=== PATIENT | female | born 1960 | race Caucasian/White ===

== ENCOUNTER 2019-06-02 11:17 | Outpatient (CLI) | payer BC, SELFPAY ==
--- NOTE | 2019-06-02 11:55 | ECG_ITS ---
Measurements Intervals [place] Rate: 67 P: 21 IA: 165 QRS: 33 QRSD: 79 T: 54 QT: 391 QTc: 414 Interpretive Statements SINUS RHYTHM BASELINE ARTIFACT- I, III, AVL NORMAL ECG Electronically Signed On 06-02-2019 12:39:34 VIOLIN TEACHER by Chilo Troy D.O.
== END 2019-06-02 11:18 | disposition home or self-care (01) ==
PROVIDERS: PCP Internal Medicine; Visit Provider Internal Medicine
DX: I10 Essential (primary) hypertension (principal)
CPT/HCPCS: 93005

== ENCOUNTER 2019-06-06 09:47 | Outpatient (CLI) | payer BC, SELFPAY ==
--- NOTE | 2019-06-06 10:15 | ECHO_ITS ---
Patient Info Name: Yesika Denney Age: 58 years : 1960 Gender: Female Ht: 73 in Wt: 135 lbs BSA: 1.76 m2 HR: 73 bpm BP: 124 / 83 mmHg Heart Rhythm: Sinus Rhythm Technical Quality: Good Exam Date: 06/06/2019 10:56 AM Exam Location: [facility] Patient Status: Outpatient Admit Date: 06/06/2019 Staff Ordering Physician: Martin Vazquez MD Nailhead Operator: Laquita Zhang RDCS Attending Provider: Martin Vazquez MD Referring Physician: PHYSICIAN NOT ON STAFF, NONSTAFF ; Exam Type: CA echo doppler color flow Study Info Indications - tachycardia Complete two-dimensional, color flow and Doppler transthoracic echocardiogram is performed. Summary 1. Left ventricular chamber dimension is normal. 2. Left ventricular systolic function is normal, estimated at 55-60%. 3. The left ventricular diastolic function is grade I diastolic dysfunction. 4. E/e' 8 is minimally elevated. 5. There is trace mitral valve regurgitation. 6. There is mild tricuspid valve regurgitation. 7. No pulmonary hypertension, estimated pulmonary arterial systolic pressure is 26 mmHg. 8. There is mild pulmonic regurgitation. Left Ventricle E/e' 8 is minimally elevated. Left ventricular chamber dimension is normal. Left ventricular systolic function is normal, estimated at 55-60%. The left ventricular diastolic function is grade I diastolic dysfunction. Right Ventricle Right ventricular chamber dimension is normal. Right ventricular systolic function is normal. Left Atria Left atrial chamber dimension is normal. Right Atria Right atrial chamber dimension is normal. Aortic Valve The aortic valve is trileaflet. There is no aortic valve stenosis. There is no aortic valve regurgitation. Pulmonic Valve There is mild pulmonic regurgitation. Mitral Valve There is no mitral valve stenosis. There is trace mitral valve regurgitation. Tricuspid Valve There is mild tricuspid valve regurgitation. No pulmonary hypertension, estimated pulmonary arterial systolic pressure is 26 mmHg. Pericardium/Pleural There is no pericardial effusion. Inferior Vena Cava Normal inferior vena cava with >50% collapse upon inspiration consistent with normal right atrial pressure, 5 mmHg. Aorta The aortic root size at the sinus of Valsalva is normal. Left Ventricular Outflow Tract Name Value Normal LVOT 2D LVOT Diameter 2.0 cm LVOT Doppler LVOT Peak Gradient 4 mmHg LVOT Mean Gradient 3 mmHg LVOT VTI 21 cm LVOT VTI/AV VTI Ratio 0.8 LVOT Stroke Volume 63 ml LVOT CO 14.7 l/min LVOT CI 8.4 l/min/m2 Pulmonic Valve Name Value Normal PV Doppler PV Peak Gradie
[2019-06-06 12:18] LABS: Basophils Percent Auto 0.5 % (0.2-1.2); Eosinophils Absolute Auto 0.1 K/mm3 (0-0.3); Eosinophils Percent Auto 1.1 % (0-4.4); Hematocrit 39.9 % (37.0-47.0); Hemoglobin 13.1 g/dL (12.0-15.0); Immature Granulocyte Absolute 0.01 K/mm3 (0.00-0.031); Immature Granulocyte Percent A 0.2 % (0-0.5); Lymphocytes Absolute Auto 1.61 K/mm3 (0.9-3.2); Lymphocytes Percent Auto 36.3 % (18.3-44.2); Mean Corpuscular HGB Conc 32.8 g/dl (32-36); Mean Corpuscular Hemoglobin 33.5 pg (26-34); Mean Platelet Volume 10.4 fl (7.4-10.4); Monocytes Absolute Auto 0.5 K/mm3 (0.1-0.6); Monocytes Percent Auto 11.7 % (2.6-8.5); Neutrophils Absolute Auto 2.2 K/mm3 (1.3-6.7); Neutrophils Percent Auto 50.2 % (45.5-73.1); Platelet Count Result 218 k/mm3 (150-375); Red Blood Count 3.91 M/mm3 (4.2-5.4); Red Cell Distribution Width 13.3 % (11.5-14.5); White Blood Count 4.4 K/mm3 (4.5-10.0)
[2019-06-06 12:35] LABS: Alanine Aminotransferase 35 U/L (4-35); Albumin Level 4.6 g/dL (3.5-5.1); Alkaline Phosphatase 51 U/L (38-126); Aspartate Amino Transferase 32 U/L (14-36); Bilirubin,Total 0.3 mg/dL (0.2-1.3); Blood Urea Nitrogen 16 mg/dL (7-17); Calcium 9.4 mg/dL (8.4-10.2); Carbon Dioxide 32 mmol/L (22-30); Chloride 98 mmol/L (98-107); Estimated Glomerular Filt Rate > 60; Glucose 89 mg/dL (65-105); Magnesium 2.1 mg/dL (1.6-2.3); Potassium 4.1 mmol/L (3.4-5.0); Sodium 138 mmol/L (137-145)
--- NOTE | 2019-06-09 12:46 | WPDHOLTEREM ---
Holter/Event Monitor Holter/Event Monitor Date of procedure: 06/06/19 Procedure Type: 48 hour holter monitor Indications: Tachycardia Conclusion: 1. 48 hour holter monitor on 06/06/19. 2. Predominant rhythm is sinus rhythm. HR range 52-150 bpm; average HR 81 bpm. 3. There are 14 premature supraventricular complexes and 1 supraventricular couplet. One episode of atrial tachycardia at 106 bpm at 04:04 lasting 2 minutes. 4. No premature ventricular complex. No ventricular tachycardia. 5. No sinoatrial or atrioventricular blocks. No significant pauses greater than 2 seconds. 6. Patient reports symptoms of fluttering, heart racing and increased heart rate, and skipped beats which demonstrate sinus rhythm, HR range 69-120 bpm and the episode of atrial tachycardia described above.
== END 2019-06-06 09:48 | disposition home or self-care (01) ==
PROVIDERS: PCP Internal Medicine; Visit Provider Internal Medicine
DX: R00.0 Tachycardia, unspecified (principal); I37.1 Nonrheumatic pulmonary valve insufficiency; I36.1 Nonrheumatic tricuspid (valve) insufficiency; I10 Essential (primary) hypertension; Z79.899 Other long term (current) drug therapy
CPT/HCPCS: 36415; 80053; 83735; 85025; 93225; 93226; 93306

== ENCOUNTER 2020-03-03 01:11 | Outpatient (CLI) | payer BC, SELFPAY ==
[2020-03-03 19:09] LABS: SARS-CoV-2 RNA PCR Negative
== END 2020-03-03 01:12 | disposition home or self-care (01) ==
LOC: ANHCOVIDDT 01:11
PROVIDERS: PCP Physician Assistant; Visit Provider Internal Medicine Gastroenterology
DX: Z20.828 Contact with and (suspected) exposure to other viral communicable diseases (principal)
CPT/HCPCS: 87635; C9803; U0003

== ENCOUNTER 2020-03-06 01:07 | Day surgery (SDC) | payer BC, SELFPAY ==
[2020-02-28 12:53] VITALS: BMI 23.4
[2020-03-06 09:09] VITALS: BP 117/74; PULSE 96; RESP 20; TEMP 36.6; O2SAT 97; BMI 23.3
[2020-03-06] MEDS: LACTATED RINGERS 1,000 ML 150 ML IV CONT (09:24)
--- NOTE | 2020-03-06 09:53 | WPDANESEPPF ---
Anes - Initial Pre Proc Eval Procedure: Operation Date: 03/06/20 10:15 Proposed Procedures p Screening Colonoscopy - Rasheed Aguilar MD Date/Time: 03/06/20 09:53 Surgeon: Rasheed Aguilar MD Pre Op Diagnosis: neoplasm screening Patient Data Age: 59 Gender: F Height: 5 ft 3 in Weight: 59.7 kg Last Vital Signs Temp 98 F 03/06/20 09:09 Pulse 96 03/06/20 09:09 Resp 20 03/06/20 09:09 BP 117/74 03/06/20 09:09 Pulse Ox 97 03/06/20 09:09 Allergies Allergy/AdvReac Type Severity Reaction Status Date / Time adhesive Allergy Unknown WELTS Verified 03/06/20 09:07 anastrozole AdvReac Severe unspecified Verified 03/06/20 09:07 cyclizine AdvReac Unknown HALLUCINATIONS, Verified 03/06/20 09:07 URINARY RETENTION TEGADERM AdvReac Unknown REDNESS/IRR Uncoded 03/06/20 09:07 ITATION Home Medications Medication Instructions Recorded Confirmed Type ioriffzicd-hweynnznjhtzd-ldtsexqr 1 cap PO Q4-6H PRN 04/04/19 02/28/20 History 50 mg-300 mg-40 mg capsule folic acid 1 mg tablet 1 mg PO DAILY 04/04/19 03/06/20 History hydroxychloroquine 200 mg tablet 200 mg PO DAILY 04/04/19 03/06/20 History sulfasalazine 500 mg tablet 0.5 gm PO BID tablet 04/04/19 03/06/20 History aspirin 81 mg tablet,delayed 81 mg PO 2XW tablet 04/05/19 02/28/20 History release atenolol 50 mg tablet 50 mg PO DAILY #90 tablet 09/06/19 03/06/20 Rx valacyclovir 500 mg tablet See Rx Instructions .ROUTE 11/22/19 03/06/20 Rx .COMPLEX #90 tablet lisinopril 40 mg tablet See Rx Instructions .ROUTE 01/05/20 03/06/20 Rx .COMPLEX #90 tablet sodium,potassium,mag sulfates 17.5 See Rx Instructions PO .COMPLEX 02/03/20 Rx gram-3.13 gram-1.6 gram oral soln #354 ml fluoxetine [Prozac] 30 mg PO DAILY 02/28/20 03/06/20 History methotrexate sodium 2.5 mg PO WEEKLY 02/28/20 02/28/20 History Patient hx anesthesia problems: none Family hx anesthesia problems: none PMFSH Past Medical History Medical History (Updated 03/06/20 @ 09:53 by Joseph Colón MD) Breast cancer history of breast cancer 2015 Essential hypertension Migraine Rectal bleeding Rheumatoid arthritis Family History Family History Mother Family history of osteoporosis Family history of migraine headaches Hypertension Family history of atrial fibrillation Father Depression Family history of arthritis Family history of Alzheimer's disease Family history of hearing loss Social History Social History Smoking status: Never smoker Second hand tobacco smoke exposure: No Alcohol intake: never Substance use: never Substance use type: does not use Living arrangements: with family Spiritual care concerns: No Anes - Eval Final PreProcedure Day of Procedure 03/06/20 09:53 Patient weight: normal Heart: regular rate and rhythm Lungs: clear to auscultation Airway: Mallampati scale class II Neurological: alert and oriented Last oral intake: >/= 8 hours ASA classification: III Emergent: no Anesthetic plan: proceed Anesthesia type and monitoring: general GIVS and standard monitoring Informed Consent: The patient's anesthetic plan and its attendant risks and benefits were discussed with the patient/family/POA. Questions were solicited and answers provided to the satisfaction of the patient/family/POA.
--- NOTE | 2020-03-06 10:24 | PM.HPGS ---
History of Present Illness History of Present Illness Consent: Risks, benefits, and alternatives have been discussed and questions answered. Patient agrees to proceed with procedure. Chief complaint: neoplasm screening Narrative: Yesika Denney is a 59 year old female with intermittent diarrhea, last colonoscopy 10 years ago. Review of Systems Constitutional: Constitutional: Denies headache(s) and Denies weakness Eyes: Eyes: Denies blurry vision ENT: Reports Normal hearing present, Denies headache(s) and Denies neck pain Cardiovascular: Cardiovascular: Denies chest pain and Denies dyspnea Respiratory: Respiratory: Denies dyspnea Gastrointestinal: Gastrointestinal: Reports no additional gastrointestinal complaints Genitourinary: Genitourinary: Denies dysuria Musculoskeletal: Musculoskeletal: Denies neck pain Integumentary/Breasts: Skin/Breast: Denies dry skin Neurologic: Reports Normal hearing present, Denies headache(s) and Denies weakness Psychiatric: Psychiatric: Denies anxiety Endocrine: Endocrine: Denies change in body appearance Hematologic/Lymphatic: Hematologic/Lymphatic: Denies easy bleeding Allergic/Immunologic: Allergic/Immunologic: Denies urticaria PMFSH Past Medical History Medical History (Updated 03/06/20 @ 10:24 by Rasheed Aguilar MD) Breast cancer history of breast cancer 2015 Colon cancer screening Essential hypertension Migraine Rectal bleeding Rheumatoid arthritis Family History Family History Mother Family history of osteoporosis Family history of migraine headaches Hypertension Family history of atrial fibrillation Father Depression Family history of arthritis Family history of Alzheimer's disease Family history of hearing loss Social History Social History Smoking status: Never smoker Second hand tobacco smoke exposure: No Alcohol intake: never Substance use: never Substance use type: does not use Living arrangements: with family Spiritual care concerns: No Meds Home Medications and Allergies Home Medications Medication Instructions Recorded Confirmed Type bdlwjtxblq-anmwfkofnwbah-syyfvopv 1 cap PO Q4-6H PRN 04/04/19 02/28/20 History 50 mg-300 mg-40 mg capsule folic acid 1 mg tablet 1 mg PO DAILY 04/04/19 03/06/20 History hydroxychloroquine 200 mg tablet 200 mg PO DAILY 04/04/19 03/06/20 History sulfasalazine 500 mg tablet 0.5 gm PO BID tablet 04/04/19 03/06/20 History aspirin 81 mg tablet,delayed 81 mg PO 2XW tablet 04/05/19 02/28/20 History release atenolol 50 mg tablet 50 mg PO DAILY #90 tablet 09/06/19 03/06/20 Rx valacyclovir 500 mg tablet See Rx Instructions .ROUTE 11/22/19 03/06/20 Rx .COMPLEX #90 tablet lisinopril 40 mg tablet See Rx Instructions .ROUTE 01/05/20 03/06/20 Rx .COMPLEX #90 tablet sodium,potassium,mag sulfates 17.5 See Rx Instructions PO .COMPLEX 02/03/20 Rx gram-3.13 gram-1.6 gram oral soln #354 ml fluoxetine [Prozac] 30 mg PO DAILY 02/28/20 03/06/20 History methotrexate sodium 2.5 mg PO WEEKLY 02/28/20 02/28/20 History Allergies Allergy/AdvReac Type Severity Reaction Status Date / Time adhesive Allergy Unknown WELTS Verified 03/06/20 09:07 anastrozole AdvReac Severe unspecified Verified 03/06/20 09:07 cyclizine AdvReac Unknown HALLUCINATIONS, Verified 03/06/20 09:07 URINARY RETENTION TEGADERM AdvReac Unknown REDNESS/IRR Uncoded 03/06/20 09:07 ITATION Vital Signs Vital Signs - 24 hr 03/06/20 09:09 Temperature 98 F Pulse Rate 96 Respiratory Rate 20 Blood Pressure 117/74 Pulse Oximetry 97 Exam Const: General: comfortable and no acute distress HENMT: General nose exam: Normal nares present Eyes: General: appearance normal, both eyes and all related structures Neck: Neck: no JVD Resp: Auscultation: clear to auscultation b
[2020-03-06 10:44] VITALS: BP 93/61; PULSE 74; RESP 18; O2SAT 96
[2020-03-06 10:54] VITALS: BP 96/62; PULSE 73; RESP 16; O2SAT 100
[2020-03-06 11:04] VITALS: BP 111/76; PULSE 61; RESP 16; O2SAT 100
== END 2020-03-06 11:08 | disposition home or self-care (01) ==
PROVIDERS: PCP Physician Assistant; Visit Provider Internal Medicine Gastroenterology
PROC: 0DJD8ZZ Inspection of Lower Intestinal Tract, Via Natural or Artificial Opening Endoscopic (ICD-10-PCS; CPT 45378; principal; 2020-03-06 10:15)
DX: Z12.11 Encounter for screening for malignant neoplasm of colon (principal); R19.7 Diarrhea, unspecified; K57.30 Diverticulosis of large intestine without perforation or abscess without bleeding; K64.0 First degree hemorrhoids; K64.4 Residual hemorrhoidal skin tags; I10 Essential (primary) hypertension; M06.9 Rheumatoid arthritis, unspecified; Z85.3 Personal history of malignant neoplasm of breast
CPT/HCPCS: 45380; 88305; J2704; J7120

== ENCOUNTER 2020-05-17 11:37 | Inpatient (IN) | payer BC, SELFPAY ==
[2020-05-17] VITALS (14 sets, daily range): BP systolic 96–113; BP diastolic 57–73; PULSE 72–106; RESP 15–26; TEMP 35.8–36.6; O2SAT 93–100; BMI 23.1
--- NOTE | ~2020-05-17 | XR_ITS ---
EXAMINATION: XR chest 1V portable DATE: 05/23/2020 08:56 INDICATION: COVID-19 pneumonia. TECHNIQUE: A single frontal view of the chest was obtained. COMPARISON: Chest single view 05/17/20 FINDINGS: There are patchy airspace opacities in all lung zones bilaterally, right worse than left. N o pleural effusion or pneumothorax. The heart size is normal. IMPRESSION: 1. Worsened diffuse lung disease, consistent with COVID-19 pneumonia. Reviewed, dictated and finalized at location A. NESS TRAINER
--- NOTE | ~2020-05-17 | XR_ITS ---
XR chest 1V portable DATE: 05/17/2020 13:08 INDICATION: Shortness of breath, fever, fatigue. Covid 19 positive. TECHNIQUE: Portable upright AP chest on March 16, 2021 at 1304 hours COMPARISON: 02/15/2016 PA and lateral chest FINDINGS: Normal heart size. Aortic arch calcification. No hilar or mediastinal enlargement. No pulmo nary vascular congestion or pleural effusion. There is patchy infiltrate in the right mid and lower lung zones. Remaining lung guerrero are clear. IMPRESSION: Patchy right mid and lower lung field infiltrate, suggesting pneumonia Reviewed, dictated and finalized at location A. R VEHICLES SUPERVISOR IMPRESSION: Patchy right mid and lower lung field infiltrate, suggesting pneumo shila
--- NOTE | 2020-05-17 11:40 | ECG_ITS ---
Measurements Intervals [place] Rate: 73 P: 58 ME: 152 QRS: 32 QRSD: 74 T: 54 QT: 381 QTc: 421 Interpretive Statements SINUS RHYTHM BASELINE WANDER- II, III NORMAL ECG Electronically Signed On 05-17-2020 12:51:43 NEWSPAPER DELIVERY DRIVER by Chilo Troy D.O.
[2020-05-17 12:08] LABS: Basophils Percent Auto 0.3 % (0.2-1.2); Hematocrit 36.2 % (37.0-47.0); Hemoglobin 12.2 g/dL (12.0-15.0); Immature Granulocyte Absolute 0.04 K/mm3 (0.00-0.031); Immature Granulocyte Percent A 0.6 % (0-0.5); Lymphocytes Percent Auto 10.3 % (18.3-44.2); Mean Corpuscular HGB Conc 33.7 g/dl (32-36); Mean Corpuscular Hemoglobin 32.7 pg (26-34); Mean Corpuscular Volume 97.1 fl (80-100); Mean Platelet Volume 9.6 fl (7.4-10.4); Monocytes Absolute Auto 0.8 K/mm3 (0.1-0.6); Monocytes Percent Auto 11.5 % (2.6-8.5); Neutrophils Absolute Auto 5.3 K/mm3 (1.3-6.7); Neutrophils Percent Auto 77.3 % (45.5-73.1); Platelet Count Result 234 k/mm3 (150-375); Red Blood Count 3.73 M/mm3 (4.2-5.4); Red Cell Distribution Width 13.2 % (11.5-14.5); White Blood Count 6.8 K/mm3 (4.5-10.0)
[2020-05-17 12:20] LABS: Anion Gap 10 mmol/L (8-16); Blood Urea Nitrogen 13 mg/dL (7-17); Calcium 8.7 mg/dL (8.4-10.2); Carbon Dioxide 24 mmol/L (22-30); Chloride 101 mmol/L (98-107); Estimated CRCL calculation 71 ml/min; Estimated Glomerular Filt Rate > 60; Glucose 119 mg/dL (65-105); Potassium 4.1 mmol/L (3.4-5.0); Sodium 135 mmol/L (137-145)
--- NOTE | 2020-05-17 13:34 | ED.SOB ---
HPI - SOB/Dyspnea General Chief Complaint: Shortness of Breath/Dyspnea Stated Complaint: COVID+, SOB Time Seen by Provider: 05/17/20 13:04 Source: patient Mode of arrival: ambulatory Limitations: no limitations History of Present Illness HPI Narrative: A 59-year-old female comes into the emergency department with complaints of shortness of breath, fever and cough. Patient states that this has been continued since she has been diagnosed with Covid. Patient has had a diagnosis of Covid for almost 2 weeks now but states that her fevers are persistent. Patient states that she has been taking Tylenol and ibuprofen and but still has fevers. She notes that she has had no production with her cough. Related Data Home Medications Medication Instructions Recorded Confirmed ftyqlzrnmk-ihrlihpjowvua-jcbwgjjc 1 cap PO Q4-6H PRN 04/04/19 02/28/20 50 mg-300 mg-40 mg capsule folic acid 1 mg tablet 1 mg PO DAILY 04/04/19 03/06/20 hydroxychloroquine 200 mg tablet 200 mg PO DAILY 04/04/19 03/06/20 sulfasalazine 500 mg tablet 0.5 gm PO BID tablet 04/04/19 03/06/20 aspirin 81 mg tablet,delayed 81 mg PO 2XW tablet 04/05/19 02/28/20 release fluoxetine [Prozac] 30 mg PO DAILY 02/28/20 03/06/20 methotrexate sodium 2.5 mg PO WEEKLY 02/28/20 02/28/20 Allergies Allergy/AdvReac Type Severity Reaction Status Date / Time adhesive Allergy Unknown WELTS Verified 05/17/20 11:38 anastrozole AdvReac Severe unspecified Verified 05/17/20 11:38 cyclizine AdvReac Unknown HALLUCINATIONS, Verified 05/17/20 11:38 URINARY RETENTION TEGADERM AdvReac Unknown REDNESS/IRR Uncoded 03/06/20 09:07 ITATION Review of Systems Review of Systems: Narrative: CONSTITUTIONAL: Denies fever, chills, or sweats. EYES: Denies visual changes, redness, or discharge. ENT: Denies rhinorrhea, congestion, sore throat, or otalgia. CARDIOVASCULAR: Denies chest pain, palpitations, or edema. RESPIRATORY: Endorses dyspnea with exertion and cough. GASTROINTESTINAL: Denies abdominal pain, nausea, vomiting, or diarrhea. GENITOURINARY: Denies dysuria or hematuria. SKIN: Denies rash or itching. MUSCULOSKELETAL: Denies back pain, joint pain, or myalgia. NEUROLOGIC: Denies headache, numbness, dizziness, or weakness. PSYCHIATRIC: Denies anxiety or depression. [facility] Past Medical History Medical History Breast cancer history of breast cancer 2015 Colon cancer screening Essential hypertension Migraine Rectal bleeding Rheumatoid arthritis Family History Family History Mother Family history of osteoporosis Family history of migraine headaches Hypertension Family history of atrial fibrillation Father Depression Family history of arthritis Family history of Alzheimer's disease Family history of hearing loss Social History Social History Smoking status: Never smoker Second hand tobacco smoke exposure: No Alcohol intake: never Substance use: never Substance use type: does not use Spiritual care concerns: No Exam Narrative: Exam Narrative: GENERAL: Well-appearing, well-nourished, and in no acute distress. HEAD: Normocephalic, atraumatic. EYES: PERRLA and EOMI. ENT: Nares clear, no rhinorrhea or epistaxis. Mucous membranes moist. Oropharynx without tonsillar hypertrophy exudate or other lesions. Bilateral TMs pearly koehler nonbulging NECK: Supple. No adenopathy or masses. No carotid bruits or JVD CHEST: Rhonchi noted in the right lower lobe. Mild tachypnea and increased work of breathing. HEART: Tachycardic. No murmur heard. Normal peripheral pulses. ABDOMEN: Soft, nontender, nondistended, normal active bowel sounds. EXTREMITIES: Normal range of motion. No edema. SKIN: Warm, dry, no rash. NEURO: No focal deficits. Alert and oriented x3. PSYCH: Normal mood and affect. Course Reevaluation
[2020-05-17] MEDS: DEXAMETHASONE SOD PHOS INJ 4 MG/ML VIAL 6 MG IV PUSH (14:03)
[2020-05-17] MEDS: IPRATROPIUM BR 0.02% INH SOLN 0.5 MG/2.5 ML VIAL 1 MG INHALATION (14:10)
[2020-05-17] MEDS: ALBUTEROL SULFATE NEB 2.5 MG/0.5 ML INH 10 MG INHALATION (14:10)
--- NOTE | 2020-05-17 16:35 | PC.NURSE ---
This patient, Yesika Deneny, was admitted to 3 [facility] Surg Room 324-01. Patient/family oriented to hospital policies and general routines including ID bracelet, bed and alarms, visiting hours, pain management, procedures, bathroom and other care routines, personal items, smoking policy, room service/diet, and visiting hours. Information on how to activate the Rapid Response Team has been discussed. Patient/Family are encouraged to report perceived risks to care and to ask questions if they do not understand what they are told or what they should do.
--- NOTE | 2020-05-17 17:00 | PM.IMHP ---
H&P: HPI History of Present Illness Date/Time: 05/17/20 17:00 Chief Complaint: Shortness of breath and hypoxia. Narrative: This is a pleasant 59-year-old female with hypertension and rheumatoid arthritis on immunosuppressants who presented to the emergency department earlier today via private vehicle from home for evaluation of shortness of breath and hypoxia. She has not felt well for nearly 2 weeks and in fact tested positive for COVID-19 on 05/07/2020, with multiple symptoms to include fever up to 102.8?, dry cough, sinus congestion, body aches, loose stools, and overwhelming fatigue. She has been in close contact with her ballistics expert forensic, Dr. Martinez in [place], who advised her to hold methotrexate while febrile however she is to continue her sulfasalazine and hydroxychloroquine. In any event, she has a pulse ox at home and has been monitoring her SpO2 and has noted that she has become progressively more short of breath and hypoxic over the past 24 hours, down to 86% on room air. Chest x-ray done today demonstrates pneumonia and she is being admitted in this setting. She has not had a fever today and she denies anosmia, dysgeusia, nausea, and vomiting. No chest pain, pleuritic pain, palpitations, or racing heart. She also denies lower extremity edema, calf pain and tenderness, and history of venous thromboembolism. Review of Systems Review of Systems: Narrative: Twelve systems were reviewed with pertinent positives and negatives as per HPI. 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 Except as documented, all other systems were reviewed and are negative. [facility] Past Medical History Medical History (Updated 05/17/20 @ 20:59 by Cynthia Gongora PA-C) Anterior communicating artery aneurysm Being monitored closely. Cancer of right breast (~2014) Status post lumpectomy and chemo radiation. Essential hypertension Immunocompromised patient Patient on methotrexate, hydroxychloroquine, and sulfasalazine for rheumatoid arthritis. Migraine Paroxysmal supraventricular tachycardia Rheumatoid arthritis Surgical History Surgical History (Updated 05/17/20 @ 20:56 by Cynthia Gongora PA-C) History of breast biopsy History of lumpectomy of right breast (~2014) As treatment of breast cancer. History of nasal septoplasty History of partial thyroidectomy History of tonsillectomy and adenoidectomy History of tubal ligation Family History Family History Mother Family history of osteoporosis Family history of migraine headaches Hypertension Family history of atrial fibrillation Father Depression Family history of arthritis Family history of Alzheimer's disease Family history of hearing loss Social History Social History (Updated 05/17/20 @ 20:57 by Cynthia Gongora PA-C) Social History: Surrogate decision maker: Christiano Denney, . Code status: Full code. Smoking status: Never smoker Second hand tobacco smoke exposure: No Alcohol intake: never Substance use: never Substance use type: does not use Additional living arrangements comments: Resides in [place] with her and son. Gender identity (if verbalized by the patient): Female Spiritual care concerns: No Meds Home Medications and Allergies Home Medications Medication Instructions Recorded Confirmed Type yzleffnmwr-fclxodmftjjcw-jlymhlcc 1 cap PO Q4-6H PRN 04/04/19 05/17/20 History 50 mg-300 mg-40 mg capsule folic acid 1 mg tablet 2 mg PO DAILY 04/04/19 05/17/20 History hydroxychloroquine 200 mg tablet 200 mg PO DAILY 04/04/19 05/17/20 History sulfasalazine 500 mg tablet 500 mg PO BID tablet 04/04/19 05/17/20 History aspirin 81 mg tablet,delayed 81 mg PO 2XW tablet 04/05/19 05/17/20 History release atenolol 50 mg tablet 50 mg PO DAILY #90 tablet 09/06/19 05/17/20 Rx fluoxetine [Pro
[2020-05-17 19:05] LABS: Troponin I < 0.012 ng/mL (0.000-0.034)
[2020-05-17 21:50] LABS: Troponin I < 0.012 ng/mL (0.000-0.034)
[2020-05-17 22:29] LABS: Procalcitonin 0.1 ng/mL
[2020-05-18] VITALS (13 sets, daily range): BP systolic 111–126; BP diastolic 75–80; PULSE 82–110; RESP 16–18; TEMP 36.6–38.7; O2SAT 92–94
[2020-05-18] MEDS: ACETAMINOPHEN 325 MG TABLET 650 MG PO ×4 (01:46→19:50)
[2020-05-18 06:10] LABS: Hematocrit 33.3 % (37.0-47.0); Hemoglobin 11.2 g/dL (12.0-15.0); Mean Corpuscular HGB Conc 33.6 g/dl (32-36); Mean Corpuscular Hemoglobin 33.3 pg (26-34); Mean Corpuscular Volume 99.1 fl (80-100); Mean Platelet Volume 9.3 fl (7.4-10.4); Platelet Count Result 242 k/mm3 (150-375); Red Blood Count 3.36 M/mm3 (4.2-5.4); Red Cell Distribution Width 13.3 % (11.5-14.5)
[2020-05-18 06:27] LABS: Alanine Aminotransferase 37 U/L (4-35); Albumin Level 3.6 g/dL (3.5-5.1); Alkaline Phosphatase 57 U/L (38-126); Anion Gap 6 mmol/L (8-16); Aspartate Amino Transferase 48 U/L (14-36); Bilirubin,Total 0.2 mg/dL (0.2-1.3); Blood Urea Nitrogen 12 mg/dL (7-17); CRP 7.5 mg/dL (<1.0); Calcium 8.7 mg/dL (8.4-10.2); Carbon Dioxide 27 mmol/L (22-30); Chloride 102 mmol/L (98-107); Estimated CRCL calculation 84 ml/min; Estimated Glomerular Filt Rate > 60; Glucose 132 mg/dL (65-105); Lactate Dehydrogenase 910 U/L (313-618); Magnesium 1.9 mg/dL (1.6-2.3); Potassium 4.4 mmol/L (3.4-5.0); Sodium 135 mmol/L (137-145)
[2020-05-18 06:59] LABS: Hypochromasia 1+ (NORMAL); Lymphocytes Absolute Manual 0.81 K/mm3 (1.1-4.5); Monocytes Absolute Manual 0.72 K/mm3 (0.1-0.90); Monocytes Percent Manual 8 % (3-9); Neutrophils Percent Manual 83 % (46-73); Ovalocytes 1+ (NORMAL); Platelet Estimate Adequate (Adequate); Smudge Cells PRESENT; Total Cells Counted 100
[2020-05-18] MEDS: guaiFENesin 12 HR 600 MG TABCR PO ×2 (10:58→19:50)
[2020-05-18] MEDS: valACYclovir HCL 500 MG TABLET PO (12:02)
[2020-05-18] MEDS: ENOXAPARIN 40 MG/0.4 ML SYRINGE SUB-Q (12:02)
[2020-05-18] MEDS: sulfaSALAzine 500 MG TABLET PO ×2 (12:02→17:57)
[2020-05-18] MEDS: ASPIRIN 81 MG ENTERIC TABLET PO (12:03)
[2020-05-18] MEDS: FOLIC ACID 1 MG TABLET 2 MG PO (12:03)
[2020-05-18] MEDS: HYDROXYCHLOROQUINE SULFATE 200 MG TABLET PO (12:03)
[2020-05-18] MEDS: FLUoxetine HCL 20 MG CAPSULE PO (12:03)
[2020-05-18] MEDS: atenoloL 50 MG TABLET PO (12:04)
--- NOTE | 2020-05-18 14:42 | PC.NURSE ---
Spoke with infection control nurse about isolating patient for Covid. Ann Rn stated patient is on day 10 of symptoms and nolonger needed to be isolated per CDC guidelines. Patient has had fevers off and on since 0100 today. Isolation not initiated.
--- NOTE | 2020-05-18 15:01 | ECG_ITS ---
Measurements Intervals [place] Rate: 88 P: 49 MT: 166 QRS: 19 QRSD: 68 T: 42 QT: 345 QTc: 418 Interpretive Statements SINUS RHYTHM BASELINE ARTIFACT- AVR, AVL,A VF NORMAL ECG Electronically Signed On 05-18-2020 15:42:35 MONOLOGIST by Chilo Troy D.O.
[2020-05-18] MEDS: DEXAMETHASONE SOD PHOS INJ 4 MG/ML VIAL 6 MG IV PUSH (15:30)
[2020-05-18 16:04] LABS: Alanine Aminotransferase 36 U/L (4-35); Estimated CRCL calculation 71 ml/min; Estimated Glomerular Filt Rate > 60
[2020-05-18] MEDS: REMDESIVIR 200 MG/NS 250 ML 200 MG/250 ML BAG 250 MG IVPB (17:56)
--- NOTE | 2020-05-18 18:40 | PM.IMPN ---
Progress Note: A&P Assessment and Plan (1) Right lower lobe pneumonia: Qualifiers: Pneumonia type: due to unspecified organism Qualified Code(s): J18.9 - Pneumonia, unspecified organism Code(s): J18.9 - Pneumonia, unspecified organism Status: Acute Assessment and Plan: Started empirically on Rocephin and Azithromycin (2) COVID-19: Code(s): U07.1 - COVID-19 Status: Acute Assessment and Plan: Positive for Covid 19 Remdesivir/Dexamethasone/Convalescent plasma (3) Essential hypertension: Code(s): I10 - Essential (primary) hypertension Status: Acute Assessment and Plan: Stable continue to monitor Continue home meds. (4) Rheumatoid arthritis: Code(s): M06.9 - Rheumatoid arthritis, unspecified Status: Acute Assessment and Plan: On Plaquenil, Sulfa/ and methotrexate Stable (5) Pneumonia: Code(s): J18.9 - Pneumonia, unspecified organism Status: Acute Assessment and Plan: On Rocephin/Zithromax/Remdesivir/Dexamethasone/Convalescent plasma. Subjective Date/time seen: 05/18/20 18:40 Review of Systems Review of Systems: Narrative: Patient presented to ED after she tested positive for Covid 19 was having persistent cough and fevers. Constitutional: Comments: fevers, chills, muscle pain. ENT: Comments: nasal congestion. Cardiovascular: Comments: no chest pain, no sob, no leg swelling. Respiratory: Comments: dry cough persistent. Gastrointestinal: Comments: no n/v/abdominal pain. Musculoskeletal: Comments: no joint enlargement. Integumentary/Breasts: Comments: no rashes. Neurologic: Comments: no sensory motor deficit. Exam Narrative: Exam Narrative: Lying in bed Const: General: comfortable, no acute distress, alert, awake, Physically active, ill appearing and tired appearing Nutritional Appearance: thin Orientation/consciousness: patient oriented x3 HENMT: Head: normocephalic Ears: hearing grossly normal bilaterally General nose exam: Normal external nose present Face and sinus: normal facial exam Eyes: General: appearance normal, both eyes and all related structures Pupils: Equal, round and reactive pupils present EOM: EOMs intact bilaterally Neck: Neck: no lymphadenopathy, supple and no JVD Resp: Effort & Inspection: able to speak in complete sentences Auscultation: clear to auscultation bilaterally Cardio: Jugular venous distension: no JVD Rate: regular rate Rhythm: regular rhythm GI: GI Palp: Yes Soft to palpation and Yes No hepatosplenomegaly present Skin: General skin exam: normal color Lesions: no lesions Rashes: no rashes Neuro: General: patient oriented x3 and CN's II-XI intact bilaterally Cranial nerves: Yes CN's II-XII intact bilaterally Cognition (Neuro): normal cognition Speech: normal speech Motor exam (neuro): 5/5 motor strength present throughout Extrem: General: no pedal edema Objective Data Vital Signs Vital Signs: Vital Signs - 24 hr 05/17/20 20:00 05/17/20 21:34 05/18/20 00:00 Temperature 97.9 F Pulse Rate 97 93 105 H Respiratory Rate 18 Blood Pressure 113/70 Pulse Oximetry 93 05/18/20 01:46 05/18/20 02:46 05/18/20 04:00 Temperature 100.7 F H 100.0 F H Pulse Rate 90 Respiratory Rate Blood Pressure Pulse Oximetry 05/18/20 06:00 05/18/20 08:00 05/18/20 10:57 Temperature 98.1 F 101.6 F H Pulse Rate 86 109 H Respiratory Rate 18 Blood Pressure 111/75 Pulse Oximetry 93 05/18/20 11:57 05/18/20 12:00 05/18/20 12:04 Temperature 100.1 F H Pulse Rate 110 H 109 H Respiratory Rate Blood Pressure Pulse Oximetry 05/18/20 14:00 05/18/20 16:00 Temperature 97.8 F Pulse Rate 92 87 Respiratory Rate 16 Blood Pressure 126/80 Pulse Oximetry 92 Intake/Output Intake/Output: Intake & Output 05/15/20 05/16/20 05/17/20 05/18/20 23:59 23:59 23:59 23:59 Intake Total 500 1050 Output Total 0
[2020-05-19 06:00] VITALS: BP 134/83; PULSE 91; RESP 20; TEMP 36.8; O2SAT 91
[2020-05-19 08:00] VITALS: PULSE 91; RESP 20; O2SAT 91
[2020-05-19 08:04] LABS: Alanine Aminotransferase 50 U/L (4-35); Estimated CRCL calculation 71 ml/min; Estimated Glomerular Filt Rate > 60
[2020-05-19] MEDS: REMDESIVIR 100 MG/NS 250 ML 100 MG/250 ML BAG 250 MG IVPB (10:45)
[2020-05-19] MEDS: atenoloL 50 MG TABLET PO (11:24)
[2020-05-19] MEDS: HYDROXYCHLOROQUINE SULFATE 200 MG TABLET PO (11:24)
[2020-05-19] MEDS: ENOXAPARIN 40 MG/0.4 ML SYRINGE SUB-Q (11:25)
[2020-05-19] MEDS: DEXAMETHASONE SOD PHOS INJ 4 MG/ML VIAL 6 MG IV PUSH (11:25)
[2020-05-19] MEDS: FOLIC ACID 1 MG TABLET 2 MG PO (11:25)
[2020-05-19] MEDS: FLUoxetine HCL 20 MG CAPSULE PO (11:25)
[2020-05-19] MEDS: sulfaSALAzine 500 MG TABLET PO ×2 (11:25→17:45)
[2020-05-19] MEDS: valACYclovir HCL 500 MG TABLET PO (11:25)
[2020-05-19] MEDS: guaiFENesin 12 HR 600 MG TABCR PO ×2 (11:25→20:27)
[2020-05-19 12:57] VITALS: O2SAT 92
[2020-05-19 14:00] VITALS: BP 128/79; PULSE 91; RESP 18; TEMP 36.6; O2SAT 95
--- NOTE | 2020-05-19 16:29 | PM.IMPN ---
Progress Note: A&P Assessment and Plan (1) Right lower lobe pneumonia: Qualifiers: Pneumonia type: due to unspecified organism Qualified Code(s): J18.9 - Pneumonia, unspecified organism Code(s): J18.9 - Pneumonia, unspecified organism Status: Acute Assessment and Plan: Rocephin/Zithromax/ Remdesivir/Dexamethasone Continue to monitor (2) Pneumonia: Code(s): J18.9 - Pneumonia, unspecified organism Status: Acute Assessment and Plan: Will continue Rocepehin and Zithromax (3) COVID-19: Code(s): U07.1 - COVID-19 Status: Acute Assessment and Plan: Supportive care Remdesivir/Dexamethasone/Convalescent plasma (4) Essential hypertension: Code(s): I10 - Essential (primary) hypertension Status: Acute Assessment and Plan: Continue to monitor Continue home meds (5) Rheumatoid arthritis: Code(s): M06.9 - Rheumatoid arthritis, unspecified Status: Acute Assessment and Plan: On DMARDS In remission Follow up in the outpatient setting. Subjective Date/time seen: 05/19/20 16:29 Patient states that she feels better but has a headache. Review of Systems Review of Systems: Narrative: No new issues overnight. Constitutional: Comments: no fevers. ENT: Comments: no nasal congestion, no throat pain. Cardiovascular: Comments: no chest pain, no leg swelling. Respiratory: Comments: dry cough Gastrointestinal: Comments: no n/v/abdominal pain. Musculoskeletal: Comments: no muscle pain. Integumentary/Breasts: Comments: no rashes. Neurologic: Comments: no sensory motor deficit Exam Narrative: Exam Narrative: Lying in bed. Const: General: comfortable, no acute distress, alert, awake, Physically active and tired appearing Nutritional Appearance: thin HENMT: Head: normocephalic Ears: hearing grossly normal bilaterally General nose exam: Normal external nose present Face and sinus: normal facial exam Eyes: General: appearance normal, both eyes and all related structures Pupils: Equal, round and reactive pupils present EOM: EOMs intact bilaterally Neck: Neck: no lymphadenopathy, supple and no JVD Resp: Auscultation: clear to auscultation bilaterally Cardio: Jugular venous distension: no JVD Rate: regular rate Rhythm: regular rhythm GI: GI Palp: Yes Soft to palpation and Yes No hepatosplenomegaly present Skin: Rashes: no rashes Neuro: General: patient oriented x3 and CN's II-XI intact bilaterally Cranial nerves: Yes CN's II-XII intact bilaterally and Yes Equal, round and reactive pupils present Gait exam (Neuro): Normal gait present Motor exam (neuro): 5/5 motor strength present throughout Extrem: General: no pedal edema Objective Data Vital Signs Vital Signs: Vital Signs - 24 hr 05/18/20 22:00 05/19/20 06:00 05/19/20 08:00 Temperature 98.1 F 98.3 F Pulse Rate 82 91 91 Respiratory Rate 16 20 20 Blood Pressure 114/75 134/83 Pulse Oximetry 94 91 91 05/19/20 12:57 05/19/20 14:00 Temperature 97.9 F Pulse Rate 91 Respiratory Rate 18 Blood Pressure 128/79 Pulse Oximetry 92 95 Intake/Output Intake/Output: Intake & Output 05/16/20 05/17/20 05/18/20 05/19/20 23:59 23:59 23:59 23:59 Intake Total 500 1540 820 Output Total 0 Balance 500 1540 820 Meds/Results Medications: Active Medications Generic Name Dose Route Start Last Admin Trade Name Freq PRN Reason Stop Dose Admin Acetaminophen 650 mg 05/18/20 00:20 05/18/20 19:50 Acetaminophen 325 Mg Tablet PO 650 mg Q4H PRN Administration Mild Pain (1-3) or Fever Albuterol 2 puff 05/17/20 21:03 Albuterol Sulfate (*Sp) Aerosol 1 Puff INHALATION QIDRT PRN Shortness Of Breath Aspirin 81 mg 05/18/20 09:00 05/18/20 12:03 Aspirin 81 Mg Enteric Tablet PO 81 mg TuFr@0900 JOSEPH Administration Atenolol 50 mg 05/18/20 09:00 05/19/20 11:24 Atenolol 50 Mg Tablet PO 50 mg DAILY SC
[2020-05-19 20:00] VITALS: O2SAT 95
[2020-05-19 22:00] VITALS: BP 124/75; PULSE 74; RESP 16; TEMP 37.2; O2SAT 94
[2020-05-20] VITALS (10 sets, daily range): BP systolic 112–142; BP diastolic 65–86; PULSE 68–77; RESP 16–18; TEMP 36.1–37.3; O2SAT 91–95
[2020-05-20] MEDS: LOPERAMIDE HCL 2 MG CAPSULE 6 MG PO (04:34)
[2020-05-20] MEDS: ACETAMINOPHEN 325 MG TABLET 650 MG PO ×3 (04:37→20:25)
[2020-05-20 06:40] LABS: Basophils Percent Auto 0.1 % (0.2-1.2); Eosinophils Percent Auto 0.1 % (0-4.4); Hematocrit 31.7 % (37.0-47.0); Hemoglobin 10.6 g/dL (12.0-15.0); Immature Granulocyte Absolute 0.19 K/mm3 (0.00-0.031); Immature Granulocyte Percent A 2.2 % (0-0.5); Lymphocytes Absolute Auto 1.53 K/mm3 (0.9-3.2); Lymphocytes Percent Auto 17.3 % (18.3-44.2); Mean Corpuscular HGB Conc 33.4 g/dl (32-36); Mean Corpuscular Hemoglobin 32.3 pg (26-34); Mean Corpuscular Volume 96.6 fl (80-100); Mean Platelet Volume 9.4 fl (7.4-10.4); Monocytes Absolute Auto 0.8 K/mm3 (0.1-0.6); Monocytes Percent Auto 9.3 % (2.6-8.5); Neutrophils Absolute Auto 6.3 K/mm3 (1.3-6.7); Platelet Count Result 333 k/mm3 (150-375); Red Blood Count 3.28 M/mm3 (4.2-5.4); Red Cell Distribution Width 13.3 % (11.5-14.5); White Blood Count 8.8 K/mm3 (4.5-10.0)
[2020-05-20 07:05] LABS: Anion Gap 4 mmol/L (8-16); Blood Urea Nitrogen 13 mg/dL (7-17); Calcium 8.1 mg/dL (8.4-10.2); Carbon Dioxide 26 mmol/L (22-30); Chloride 106 mmol/L (98-107); Estimated CRCL calculation 71 ml/min; Estimated Glomerular Filt Rate > 60; Glucose 91 mg/dL (65-105); Potassium 3.6 mmol/L (3.4-5.0); Sodium 136 mmol/L (137-145)
[2020-05-20 07:10] LABS: Anisocytosis 1+ (NORMAL); Ovalocytes 1+ (NORMAL); Platelet Estimate Adequate (Adequate)
[2020-05-20] MEDS: atenoloL 50 MG TABLET PO (09:20)
[2020-05-20] MEDS: DEXAMETHASONE SOD PHOS INJ 4 MG/ML VIAL 6 MG IV PUSH (09:20)
[2020-05-20] MEDS: HYDROXYCHLOROQUINE SULFATE 200 MG TABLET PO (09:20)
[2020-05-20] MEDS: FLUoxetine HCL 20 MG CAPSULE PO (09:23)
[2020-05-20] MEDS: FOLIC ACID 1 MG TABLET 2 MG PO (09:23)
[2020-05-20] MEDS: guaiFENesin 12 HR 600 MG TABCR PO ×2 (09:23→20:15)
[2020-05-20] MEDS: valACYclovir HCL 500 MG TABLET PO (09:24)
[2020-05-20] MEDS: sulfaSALAzine 500 MG TABLET PO ×2 (09:24→17:49)
[2020-05-20 09:35] LABS: Alanine Aminotransferase 42 U/L (4-35); Estimated CRCL calculation 84 ml/min; Estimated Glomerular Filt Rate > 60
[2020-05-20] MEDS: ENOXAPARIN 40 MG/0.4 ML SYRINGE SUB-Q (11:39)
[2020-05-20] MEDS: REMDESIVIR 100 MG/NS 250 ML 100 MG/250 ML BAG 125 MG IVPB (11:40)
[2020-05-20] MEDS: SODIUM CHLORIDE 0.9% IV 250 ML 30 ML IV CONT (13:38)
--- NOTE | 2020-05-20 15:35 | PM.IMPN ---
Progress Note: A&P Assessment and Plan (1) Right lower lobe pneumonia: Qualifiers: Pneumonia type: due to unspecified organism Qualified Code(s): J18.9 - Pneumonia, unspecified organism Code(s): J18.9 - Pneumonia, unspecified organism Status: Acute Assessment and Plan: Remdesivir/Dexamethasone Convalescent plasma Rocephin and Zithromax for added coverage (2) COVID-19: Code(s): U07.1 - COVID-19 Status: Acute Assessment and Plan: Improved Supportive care (3) Rheumatoid arthritis: Code(s): M06.9 - Rheumatoid arthritis, unspecified Status: Acute Assessment and Plan: On remission On DMARD's (4) Essential hypertension: Code(s): I10 - Essential (primary) hypertension Status: Acute Assessment and Plan: Stable Subjective Date/time seen: 05/20/20 15:35 I feel better Review of Systems Review of Systems: Narrative: Feeling better, no new issues overnight. Constitutional: Comments: no fevers, no rigors, no chills. Cardiovascular: Comments: no chest pain, no leg swelling, no pnd, no orthopnea Respiratory: Comments: dry cough Gastrointestinal: Comments: no n/v/abdominal pain. Musculoskeletal: Comments: no joint pain Integumentary/Breasts: Comments: no rashes Neurologic: Comments: no sensory motor deficit. Exam Narrative: Exam Narrative: Lying in bed. Const: General: comfortable, no acute distress, alert, awake, Physically active and tired appearing Nutritional Appearance: average body habitus Orientation/consciousness: patient oriented x3 HENMT: Head: normocephalic Face and sinus: normal facial exam Eyes: General: appearance normal, both eyes and all related structures Pupils: Equal, round and reactive pupils present EOM: EOMs intact bilaterally Neck: Neck: no lymphadenopathy, supple and no JVD Resp: Auscultation: clear to auscultation bilaterally Cardio: Jugular venous distension: no JVD Rate: regular rate Rhythm: regular rhythm GI: Inspection: normal to inspection GI Palp: Yes Soft to palpation and Yes No hepatosplenomegaly present Skin: Rashes: no rashes Neuro: General: patient oriented x3 and CN's II-XI intact bilaterally Cranial nerves: Yes CN's II-XII intact bilaterally and Yes Equal, round and reactive pupils present Cognition (Neuro): normal cognition Speech: normal speech Motor exam (neuro): 5/5 motor strength present throughout Extrem: General: no pedal edema Objective Data Vital Signs Vital Signs: Vital Signs - 24 hr 05/19/20 20:00 05/19/20 22:00 05/20/20 06:00 Temperature 98.9 F 99.2 F Pulse Rate 74 77 Respiratory Rate 16 18 Blood Pressure 124/75 142/81 H Pulse Oximetry 95 94 91 05/20/20 08:00 05/20/20 14:00 Temperature 98.1 F Pulse Rate 77 70 Respiratory Rate 18 18 Blood Pressure 112/65 Pulse Oximetry 91 94 Intake/Output Intake/Output: Intake & Output 05/17/20 05/18/20 05/19/20 05/20/20 23:59 23:59 23:59 23:59 Intake Total 500 1540 1400 270 Output Total 0 Balance 500 1540 1400 270 Meds/Results Medications: Active Medications Generic Name Dose Route Start Last Admin Trade Name Freq PRN Reason Stop Dose Admin Acetaminophen 650 mg 05/18/20 00:20 05/20/20 04:37 Acetaminophen 325 Mg Tablet PO 650 mg Q4H PRN Administration Mild Pain (1-3) or Fever Albuterol 2 puff 05/17/20 21:03 Albuterol Sulfate (*Sp) Aerosol 1 Puff INHALATION QIDRT PRN Shortness Of Breath Aspirin 81 mg 05/18/20 09:00 05/18/20 12:03 Aspirin 81 Mg Enteric Tablet PO 81 mg TuFr@0900 JOSEPH Administration Atenolol 50 mg 05/18/20 09:00 05/20/20 09:20 Atenolol 50 Mg Tablet PO 50 mg DAILY JOSEPH Administration Butalbital/Aspirin/Caffeine 1 cap 05/17/20 21:04 Acetamin/Butalbital/Caffeine 1 Capsule PO Q4-6H PRN Migraine Headache Dexamethasone Sodium Phosphate 6 mg 05/18/20 09:00 05/20/20 09:20 Dexamethasone S
[2020-05-21 06:00] VITALS: BP 131/83; PULSE 75; RESP 18; TEMP 37; O2SAT 90
[2020-05-21 06:34] LABS: Alanine Aminotransferase 32 U/L (4-35); Estimated CRCL calculation 71 ml/min; Estimated Glomerular Filt Rate > 60
[2020-05-21] MEDS: FOLIC ACID 1 MG TABLET 2 MG PO (08:54)
[2020-05-21] MEDS: ENOXAPARIN 40 MG/0.4 ML SYRINGE SUB-Q (08:54)
[2020-05-21] MEDS: DEXAMETHASONE SOD PHOS INJ 4 MG/ML VIAL 6 MG IV PUSH (08:54)
[2020-05-21] MEDS: guaiFENesin 12 HR 600 MG TABCR PO ×2 (08:54→20:22)
[2020-05-21] MEDS: FLUoxetine HCL 20 MG CAPSULE PO (08:54)
[2020-05-21 08:55] VITALS: PULSE 75
[2020-05-21] MEDS: atenoloL 50 MG TABLET PO (08:55)
[2020-05-21] MEDS: HYDROXYCHLOROQUINE SULFATE 200 MG TABLET PO (08:56)
[2020-05-21] MEDS: sulfaSALAzine 500 MG TABLET PO ×2 (08:56→17:17)
[2020-05-21] MEDS: valACYclovir HCL 500 MG TABLET PO (08:56)
[2020-05-21] MEDS: ACETAMINOPHEN 325 MG TABLET 650 MG PO ×2 (08:57→20:22)
[2020-05-21] MEDS: REMDESIVIR 100 MG/NS 250 ML 100 MG/250 ML BAG 125 MG IVPB (10:46)
[2020-05-21] MEDS: LOPERAMIDE HCL 2 MG CAPSULE 6 MG PO ×2 (11:54→20:22)
--- NOTE | 2020-05-21 13:05 | PM.IMPN ---
Progress Note: A&P Assessment and Plan (1) Right lower lobe pneumonia: Qualifiers: Pneumonia type: due to unspecified organism Qualified Code(s): J18.9 - Pneumonia, unspecified organism Code(s): J18.9 - Pneumonia, unspecified organism Status: Acute Assessment and Plan: On Rocephin and Zithromax as patient comes from the community Remdesivir/Dexamethasone Patient is also on Plaquenil as part of her home regimen (2) COVID-19: Code(s): U07.1 - COVID-19 Status: Acute Assessment and Plan: On treatment Convalescent plasma as well plus above stated (3) Rheumatoid arthritis: Code(s): M06.9 - Rheumatoid arthritis, unspecified Status: Acute Assessment and Plan: On DMARD's Stable (4) Essential hypertension: Code(s): I10 - Essential (primary) hypertension Status: Acute Assessment and Plan: Stable Continue to monitor Subjective Date/time seen: 05/21/20 13:05 I feel much better Review of Systems Review of Systems: Narrative: No new issues. Constitutional: Comments: no fevers, no rigors, no chills. Cardiovascular: Comments: no chest pain. Respiratory: Comments: non productive cough Gastrointestinal: Comments: no n/v/abdominal pain. Musculoskeletal: Comments: no joint pain. Integumentary/Breasts: Comments: no rashes Neurologic: Comments: no sensory motor deficit. Exam Narrative: Exam Narrative: Lying in bed Const: General: comfortable, no acute distress, alert, awake, Physically active and ill appearing Nutritional Appearance: average body habitus Orientation/consciousness: patient oriented x3 Limitations: no limitations HENMT: Head: normal to inspection and normocephalic Face and sinus: normal facial exam Eyes: General: appearance normal, both eyes and all related structures Pupils: Equal, round and reactive pupils present EOM: EOMs intact bilaterally Neck: Neck: no lymphadenopathy, supple and no JVD Resp: Auscultation: clear to auscultation bilaterally and diminished lung sounds Cardio: Jugular venous distension: no JVD Rate: regular rate Rhythm: regular rhythm GI: GI Palp: Yes Soft to palpation and Yes No hepatosplenomegaly present Skin: Rashes: no rashes Neuro: General: patient oriented x3 and CN's II-XI intact bilaterally Cranial nerves: Yes CN's II-XII intact bilaterally and Yes Bilaterally intact EOM present Cognition (Neuro): normal cognition Gait exam (Neuro): Normal gait present Motor exam (neuro): 5/5 motor strength present throughout Extrem: General: no joint enlargement and no pedal edema Objective Data Vital Signs Vital Signs: Vital Signs - 24 hr 05/20/20 14:00 05/20/20 16:45 05/20/20 17:00 Temperature 98.1 F 97.0 F L 97.3 F L Pulse Rate 70 75 68 Respiratory Rate 18 16 16 Blood Pressure 112/65 122/70 124/70 Pulse Oximetry 94 93 92 05/20/20 17:50 05/20/20 18:00 05/20/20 18:54 Temperature 97.1 F L 98.1 F 98.5 F Pulse Rate 71 70 77 Respiratory Rate 16 18 18 Blood Pressure 129/77 127/86 122/74 Pulse Oximetry 95 93 92 05/20/20 20:00 05/20/20 22:00 05/21/20 06:00 Temperature 99 F 98.6 F Pulse Rate 72 75 Respiratory Rate 18 18 Blood Pressure 125/76 131/83 Pulse Oximetry 92 95 90 05/21/20 08:55 Temperature Pulse Rate 75 Respiratory Rate Blood Pressure Pulse Oximetry Intake/Output Intake/Output: Intake & Output 05/18/20 05/19/20 05/20/20 05/21/20 23:59 23:59 23:59 23:59 Intake Total 1540 1400 1656 840 Balance 1540 1400 1656 840 Meds/Results Medications: Active Medications Generic Name Dose Route Start Last Admin Trade Name Ibanq PRN Reason Stop Dose Admin Acetaminophen 650 mg 05/18/20 00:20 05/21/20 08:57 Acetaminophen 325 Mg Tablet PO 650 mg Q4H PRN Administration Mild Pain (1-3) or Fever Albuterol 2 puff 05/17/20 21:03 Albuterol Sulfate (*Sp) Aerosol 1 Puff INHALATION QIDRT PRN Shortness Of Breath
[2020-05-21 14:00] VITALS: BP 122/88; PULSE 113; RESP 20; TEMP 36.4; O2SAT 94
[2020-05-21 20:00] VITALS: O2SAT 94
[2020-05-21 22:00] VITALS: BP 124/84; PULSE 67; RESP 16; TEMP 36.7; O2SAT 96
[2020-05-22 06:00] VITALS: BP 137/83; PULSE 69; RESP 16; TEMP 36.6; O2SAT 96
[2020-05-22 07:26] LABS: Alanine Aminotransferase 28 U/L (4-35); Estimated CRCL calculation 84 ml/min; Estimated Glomerular Filt Rate > 60
[2020-05-22] MEDS: ASPIRIN 81 MG ENTERIC TABLET PO (10:15)
[2020-05-22] MEDS: HYDROXYCHLOROQUINE SULFATE 200 MG TABLET PO (10:15)
[2020-05-22] MEDS: sulfaSALAzine 500 MG TABLET PO ×2 (10:16→17:01)
[2020-05-22] MEDS: DEXAMETHASONE SOD PHOS INJ 4 MG/ML VIAL 6 MG IV PUSH (10:16)
[2020-05-22] MEDS: FLUoxetine HCL 20 MG CAPSULE PO (10:16)
[2020-05-22] MEDS: valACYclovir HCL 500 MG TABLET PO (10:16)
[2020-05-22] MEDS: ENOXAPARIN 40 MG/0.4 ML SYRINGE SUB-Q (10:16)
[2020-05-22] MEDS: FOLIC ACID 1 MG TABLET 2 MG PO (10:16)
[2020-05-22] MEDS: guaiFENesin 12 HR 600 MG TABCR PO ×2 (10:16→20:07)
[2020-05-22 10:17] VITALS: PULSE 82
[2020-05-22] MEDS: atenoloL 50 MG TABLET PO (10:17)
[2020-05-22] MEDS: REMDESIVIR 100 MG/NS 250 ML 100 MG/250 ML BAG 250 MG IVPB (10:19)
[2020-05-22] MEDS: ACETAMINOPHEN 325 MG TABLET 650 MG PO ×2 (10:22→20:12)
[2020-05-22 14:00] VITALS: BP 115/71; PULSE 67; RESP 18; TEMP 36.6; O2SAT 95
--- NOTE | 2020-05-22 16:04 | PM.IMPN ---
Progress Note: A&P Assessment and Plan (1) Right lower lobe pneumonia: Qualifiers: Pneumonia type: due to unspecified organism Qualified Code(s): J18.9 - Pneumonia, unspecified organism Code(s): J18.9 - Pneumonia, unspecified organism Status: Acute Assessment and Plan: On Rocephin and Zithromax For CAP Remdesivir/Dexamethasone Patient is also on Plaquenil for Rheumatoid arthritis (2) COVID-19: Code(s): U07.1 - COVID-19 Status: Acute Assessment and Plan: Sp treatment with plasma steroids and remdesivir much improved off oxygen now (3) Rheumatoid arthritis: Code(s): M06.9 - Rheumatoid arthritis, unspecified Status: Acute Assessment and Plan: On DMARD's Stable (4) Essential hypertension: Code(s): I10 - Essential (primary) hypertension Status: Acute Assessment and Plan: Stable Continue to monitor Subjective Date/time seen: 05/22/20 16:04 Interval history: Pt covid positive on Apr, Pt admitted for hypoxia and fever treated with remdesivir and plasma doing much better no fever not hypoxic anymore on RA, last day of remdesivir. Concerned about her family and going back home. Review of Systems Review of Systems: All systems reviewed & are unremarkable except as noted in HPI and below Exam Narrative: Exam Narrative: Lying in bed Const: General: comfortable and no acute distress Resp: Auscultation: clear to auscultation bilaterally Cardio: Jugular venous distension: no JVD Rate: regular rate Rhythm: regular rhythm GI: Inspection: normal to inspection Skin: General skin exam: normal color Lesions: no lesions Rashes: no rashes Neuro: General: patient oriented x3 and CN's II-XI intact bilaterally Cranial nerves: Yes CN's II-XII intact bilaterally, Yes Equal, round and reactive pupils present and Yes Bilaterally intact EOM present Cognition (Neuro): normal cognition Speech: normal speech Gait exam (Neuro): Normal gait present Motor exam (neuro): 5/5 motor strength present throughout Objective Data Vital Signs Vital Signs: Vital Signs - 24 hr 05/21/20 20:00 05/21/20 22:00 05/22/20 06:00 Temperature 36.7 C 36.6 C Pulse Rate 67 69 Respiratory Rate 16 16 Blood Pressure 124/84 137/83 Pulse Oximetry 94 96 96 05/22/20 10:17 05/22/20 14:00 Temperature 36.6 C Pulse Rate 82 67 Respiratory Rate 18 Blood Pressure 115/71 Pulse Oximetry 95 Intake/Output Intake/Output: Intake & Output 05/19/20 05/20/20 05/21/20 05/22/20 23:59 23:59 23:59 23:59 Intake Total 1400 1656 1930 440 Output Total 600 400 Balance 1400 1656 1330 40 Meds/Results Medications: Active Medications Generic Name Dose Route Start Last Admin Trade Name Freq PRN Reason Stop Dose Admin Acetaminophen 650 mg 05/18/20 00:20 05/22/20 10:22 Acetaminophen 325 Mg Tablet PO 650 mg Q4H PRN Administration Mild Pain (1-3) or Fever Albuterol 2 puff 05/17/20 21:03 Albuterol Sulfate (*Sp) Aerosol 1 Puff INHALATION QIDRT PRN Shortness Of Breath Aspirin 81 mg 05/18/20 09:00 05/22/20 10:15 Aspirin 81 Mg Enteric Tablet PO 81 mg TuFr@0900 JOSEPH Administration Atenolol 50 mg 05/18/20 09:00 05/22/20 10:17 Atenolol 50 Mg Tablet PO 50 mg DAILY JOSEPH Administration Butalbital/Aspirin/Caffeine 1 cap 05/17/20 21:04 Acetamin/Butalbital/Caffeine 1 Capsule PO Q4-6H PRN Migraine Headache Dexamethasone Sodium Phosphate 6 mg 05/18/20 09:00 05/22/20 10:16 Dexamethasone Sod Phos Inj 4 Mg/Ml Vial IV PUSH 05/26/20 09:01 6 mg DAILY JOSEPH Administration Enoxaparin Sodium 40 mg 05/18/20 09:00 05/22/20 10:16 Enoxaparin 40 Mg/0.4 Ml Syringe SUB-Q 40 mg DAILY JOSEPH Administration Fluoxetine HCl 20 mg 05/18/20 09:00 05/22/20 10:16 Fluoxetine Hcl 20 Mg Capsule PO 20 mg DAILY JOSEPH Administration Folic Acid 2 mg 05/18/20 09:00 05/22/20 10:16 Folic Acid
[2020-05-22] MEDS: LOPERAMIDE HCL 2 MG CAPSULE 6 MG PO (18:55)
[2020-05-22 22:00] VITALS: BP 146/78; PULSE 57; RESP 20; TEMP 37; O2SAT 95
[2020-05-23 06:00] VITALS: BP 148/86; PULSE 65; RESP 16; TEMP 37; O2SAT 95
[2020-05-23 06:41] LABS: Alanine Aminotransferase 30 U/L (4-35); Albumin Level 3.2 g/dL (3.5-5.1); Alkaline Phosphatase 46 U/L (38-126); Anion Gap 5 mmol/L (8-16); Aspartate Amino Transferase 28 U/L (14-36); Bilirubin,Total 0.3 mg/dL (0.2-1.3); Blood Urea Nitrogen 11 mg/dL (7-17); Calcium 8.4 mg/dL (8.4-10.2); Carbon Dioxide 28 mmol/L (22-30); Chloride 105 mmol/L (98-107); Estimated CRCL calculation 84 ml/min; Estimated Glomerular Filt Rate > 60; Glucose 101 mg/dL (65-105); Potassium 4.3 mmol/L (3.4-5.0); Sodium 138 mmol/L (137-145)
--- NOTE | 2020-05-23 08:40 | PM.DS ---
DS: Admitting Diagnosis Admitting Diagnosis Admitting Diagnosis: Shortness of breath and hypoxia DS: Discharge Diagnosis Discharge Diagnosis (1) Right lower lobe pneumonia: Qualifiers: Pneumonia type: due to unspecified organism Qualified Code(s): J18.9 - Pneumonia, unspecified organism Code(s): J18.9 - Pneumonia, unspecified organism Status: Acute Assessment and Plan: On Rocephin and Zithromax for community acquired pneumonia Patient is also on Plaquenil for Rheumatoid arthritis (2) COVID-19: Code(s): U07.1 - COVID-19 Status: Acute Assessment and Plan: Pt was previously on Remdesivir/Dexamethasone for COVId pneumonia and was treated with plasma while in hospital. much improved off oxygen now ready to go home, no fever, no cough or SOB. (3) Rheumatoid arthritis: Code(s): M06.9 - Rheumatoid arthritis, unspecified Status: Chronic Assessment and Plan: On DMARD's, pt will follow with her PCP. (4) Essential hypertension: Code(s): I10 - Essential (primary) hypertension Status: Chronic Assessment and Plan: Stable DS: Summary Hospital Course Hospital Course: Pt covid positive on Apr, Pt admitted for hypoxia and fever treated with remdesivir and plasma doing much better no fever not hypoxic anymore on room air. Pt is stable for dischrage. Pt was also treated for bacterial pneumonia with iv antibiotics can transition to oral antibiotics and short course of steroids on discharge. Pt is no longer in quarantine as it has been 15-16 days since she tested positive. Time Spent with Patient Time attestation: Total time spent providing and/or coordinating discharge services: 40 minutes on day of discharge Exam Narrative: Exam Narrative: Lying in bed Const: General: comfortable Resp: Auscultation: clear to auscultation bilaterally Cardio: Jugular venous distension: no JVD Rate: regular rate Rhythm: regular rhythm GI: Inspection: normal to inspection Skin: General skin exam: normal color Lesions: no lesions Rashes: no rashes Neuro: General: patient oriented x3 and CN's II-XI intact bilaterally Cranial nerves: Yes CN's II-XII intact bilaterally, Yes Equal, round and reactive pupils present and Yes Bilaterally intact EOM present Cognition (Neuro): normal cognition Speech: normal speech Gait exam (Neuro): Normal gait present Motor exam (neuro): 5/5 motor strength present throughout Extrem: General: no joint enlargement and no pedal edema DS: Data Data Completed and Pending Labs on day of discharge: Labs from last 24 hours 05/23/20 06:12 Sodium 138 Potassium 4.3 Chloride 105 Carbon Dioxide 28 Anion Gap 5 L BUN 11 Creatinine 0.50 L Estim Creat Clear Calc 84 Estimated GFR > 60 Glucose 101 Calcium 8.4 Total Bilirubin 0.3 AST 28 ALT 30 Alkaline Phosphatase 46 Total Protein 6.0 L Albumin 3.2 L Discharge Plan Discharge Attending physician on discharge: Yolanda Obrien Discharging Clinician: Yolanda Obrien Anticipated Discharge Date/Time: 05/23/20 14:00 Patient Disposition: Home, Self-Care Activity: as tolerated Diet: regular Patient Instructions: Antibiotic Form Stand Alone Forms: General Discharge Information Follow-up/Referrals: Samir,KAREN Ward [Primary Care Provider] - Discharge Medications: New albuterol sulfate [Proventil HFA] 90 mcg/actuation Hfa Aerosol Inhaler 2 puff inhalation QIDRT PRN (Reason: Shortness Of Breath) Qty: 1 RF: 0 azithromycin [Zithromax Z-Tim] 250 mg tablet 250 mg PO DAILY 5 Days Qty: 5 RF: 0 dexamethasone 6 mg tablet 6 mg PO DAILY Qty: 7 RF: 0 Continued valacyclovir 500 mg Tablet 2,000 mg PO BID PRN (Reason: Cold Sore) RF: 0 valacyclovir 500 mg tablet 500 mg PO DAILY RF: 0 lisinopril 40 mg tablet 40 mg PO DAILY RF: 0 methotrexate sodium 2.5 mg tablet 2.5 mg PO WEEKLY
[2020-05-23 08:56] VITALS: PULSE 68
[2020-05-23] MEDS: sulfaSALAzine 500 MG TABLET PO (08:56)
[2020-05-23] MEDS: atenoloL 50 MG TABLET PO (08:56)
[2020-05-23] MEDS: guaiFENesin 12 HR 600 MG TABCR PO (08:56)
[2020-05-23] MEDS: FLUoxetine HCL 20 MG CAPSULE PO (08:56)
[2020-05-23] MEDS: HYDROXYCHLOROQUINE SULFATE 200 MG TABLET PO (08:56)
[2020-05-23] MEDS: FOLIC ACID 1 MG TABLET 2 MG PO (08:56)
[2020-05-23] MEDS: valACYclovir HCL 500 MG TABLET PO (08:56)
[2020-05-23] MEDS: ENOXAPARIN 40 MG/0.4 ML SYRINGE SUB-Q (08:57)
[2020-05-23] MEDS: DEXAMETHASONE SOD PHOS INJ 4 MG/ML VIAL 6 MG IV PUSH (08:57)
[2020-05-23] MEDS: ACETAMINOPHEN 325 MG TABLET 650 MG PO (08:58)
[2020-05-23 14:00] VITALS: BP 103/70; PULSE 71; RESP 16; TEMP 36.8; O2SAT 96
== END 2020-05-23 15:20 | disposition home or self-care (01) | DRG 177 ==
LOC: ANHED 15:33 → ANH3MEDSUR 16:22
PROVIDERS: Emergency Medicine; Physician Assistant; Admitting Provider Internal Medicine; Emergency Provider Emergency Medicine; PCP Physician Assistant; Visit Provider Family Medicine
DX: U07.1 COVID-19 (principal); J12.82 Pneumonia due to coronavirus disease 2019; J15.9 Unspecified bacterial pneumonia; D84.81 Immunodeficiency due to conditions classified elsewhere; R09.02 Hypoxemia; I10 Essential (primary) hypertension; M06.9 Rheumatoid arthritis, unspecified; Z85.3 Personal history of malignant neoplasm of breast
CPT/HCPCS: 36415; 36430; 71045; 80048; 80053; 80076; 82565; 82728; 83615; 83735; 84145; 84460; 84484; 85025; 86140; 86900; 86901; 93005; 94640; 96365; 96372; 96375; 99285; A9270; G0378; J0456; J0696; J1100; J1650; J7050; P9059

== ENCOUNTER 2020-06-11 12:17 | Emergency (ER) | payer BC, SELFPAY ==
[2020-06-11] VITALS (10 sets, daily range): BP systolic 111–135; BP diastolic 70–86; PULSE 61–72; RESP 11–18; TEMP 36.8–36.9; O2SAT 96–100
--- NOTE | ~2020-06-11 | XR_ITS ---
EXAMINATION: XR chest 1V portable INDICATION: Cough, history of COVID 19 TECHNIQUE: Portable AP chest at 1637 hours COMPARISON: 05/23/2020 FINDINGS: Patchy opacities persist in all lung zones, right greater than left but is slightly improve d. No acute or superimposed airspace opacity is identified. There is no pleural effusion or pneumotho rax. The cardiomediastinal silhouette is normal. IMPRESSION: 1. Patchy lung disease with slight interval improvement, likely resolving COVID 19 pneumonia. Reviewed, dictated and finalized at location A. ONNEL SECURITY ASSISTANT
--- NOTE | 2020-06-11 15:30 | ED.GENADULT ---
HPI - General Adult General Chief complaint: Upper Respiratory Infection Stated complaint: fever, cough Time Seen by Provider: 06/11/20 14:30 Source: patient Mode of arrival: ambulatory Limitations: no limitations History of Present Illness HPI narrative: This is a 59 year old female with history of hypertension, RA, COVID pneumonia 1month ago who presents for evaluation for possible pneumonia. She was diagnosed with COVID pneumonia 05/18/20 and she was admitted to hospital. She states at that time she was having diarrhea, fever and cough. She was discharged after 5 days. She reports she was feeling weak 10 days after discharge and she found her blood pressure was low. She stopped taking her lisinopril and she states she felt better. OVer the past few days she reports mild cough and her breathing seems to be off. She states her breathing is not labored. She denies chest pain, nausea, vomiting, abdominal pain, leg swelling or pain. She reports some diarrhea today. It was recommended to patient to come to ER to get evaluated for returning pneumonia. She has no fever. Related Data Home Medications Medication Instructions Recorded Confirmed atenolol 06/11/20 folic acid 06/11/20 hydroxychloroquine 06/11/20 methotrexate sodium 06/11/20 sulfasalazine PO 06/11/20 valacyclovir 06/11/20 Allergies Allergy/AdvReac Type Severity Reaction Status Date / Time adhesive Allergy Unknown WELTS Verified 06/11/20 12:33 anastrozole AdvReac Severe unspecified Verified 06/11/20 12:33 cyclizine AdvReac Unknown HALLUCINATIONS, Verified 06/11/20 12:33 URINARY RETENTION TEGADERM AdvReac Unknown REDNESS/IRR Uncoded 05/17/20 16:54 ITATION Review of Systems Review of Systems: All systems reviewed & are unremarkable except as noted in HPI and below Constitutional: Constitutional: Denies chills, Denies fever(s) and Reports weakness Cardiovascular: Cardiovascular: Denies chest pain and Reports rapid heart rate Respiratory: Respiratory: Reports cough and Reports dyspnea Gastrointestinal: Gastrointestinal: Denies abdominal pain, Reports diarrhea, Denies nausea and Denies vomiting [facility] Past Medical History Medical History (Updated 06/11/20 @ 17:38 by Geno Garcia MD) Anterior communicating artery aneurysm Being monitored closely. Cancer of right breast (~2014) Status post lumpectomy and chemo radiation. Essential hypertension Immunocompromised patient Patient on methotrexate, hydroxychloroquine, and sulfasalazine for rheumatoid arthritis. Migraine Paroxysmal supraventricular tachycardia Rheumatoid arthritis Surgical History Surgical History (Updated 05/17/20 @ 20:56 by Cynthia Gongora PA-C) History of breast biopsy History of lumpectomy of right breast (~2014) As treatment of breast cancer. History of nasal septoplasty History of partial thyroidectomy History of tonsillectomy and adenoidectomy History of tubal ligation Family History Family History Mother Family history of osteoporosis Family history of migraine headaches Hypertension Family history of atrial fibrillation Father Depression Family history of arthritis Family history of Alzheimer's disease Family history of hearing loss Social History Social History (Updated 05/17/20 @ 20:57 by Cynthia Gongora PA-C) Social History: Surrogate decision maker: Christiano Denney, . Code status: Full code. Smoking status: Never smoker Second hand tobacco smoke exposure: No Alcohol intake: never Substance use: never Substance use type: does not use Additional living arrangements comments: Resides in [place] with her and son. Gender identity (if verbalized by the patient): Female Spiritual care concerns: No Exam Const: General: no acute distress and alert Orientation/consciousness: patient oriented x3 HENMT: Teeth and
[2020-06-11 15:51] LABS: Alveolar/Arterial O2 Gradient 22.7 mmHg; Base Excess ABG 1.4 mEq/l (+/-2.0); Carboxyhemoglobin 0.3 % THb (0-2.0); Fractional Inspired Oxygen 21 %; HCO3 ABG 26.1 mEq/l (22.0-26.0); Methemoglobin ABG 0.3 %THb (0-1.5); Oxygen Content ABG 15.5 %vol (16.0-22.0); Oxygen Saturation ABG 95.6 % (95.0-100.0); Oxyhemoglobin 94.6 % THb (90.0-100.0); PCO2 ABG 41.7 mmHg (35.0-45.0); PO2 ABG 77.1 mmHg (80.0-100.0); PO2 FiO2 Ratio Arterial Blood 3.67 %; Reduced Hemoglobin 4.8 %THb (0-5.0); Site Drawn RIGHT BRACHIAL; Total Hemoglobin 11.6 g/dL (12.0-18.0); pH ABG 7.414 (7.350-7.450)
[2020-06-11 15:52] LABS: Device ROOM AIR
[2020-06-11 16:26] LABS: Basophils Percent Auto 0.9 % (0.2-1.2); Eosinophils Absolute Auto 0.2 K/mm3 (0-0.3); Eosinophils Percent Auto 3.5 % (0-4.4); Hematocrit 33.6 % (37.0-47.0); Immature Granulocyte Absolute 0.03 K/mm3 (0.00-0.031); Immature Granulocyte Percent A 0.7 % (0-0.5); Lymphocytes Absolute Auto 1.42 K/mm3 (0.9-3.2); Lymphocytes Percent Auto 31.2 % (18.3-44.2); Mean Corpuscular HGB Conc 32.7 g/dl (32-36); Mean Corpuscular Hemoglobin 33.2 pg (26-34); Mean Corpuscular Volume 101.5 fl (80-100); Mean Platelet Volume 10.5 fl (7.4-10.4); Monocytes Absolute Auto 0.6 K/mm3 (0.1-0.6); Monocytes Percent Auto 13.6 % (2.6-8.5); Neutrophils Absolute Auto 2.3 K/mm3 (1.3-6.7); Neutrophils Percent Auto 50.1 % (45.5-73.1); Platelet Count Result 160 k/mm3 (150-375); Red Blood Count 3.31 M/mm3 (4.2-5.4); Red Cell Distribution Width 15.3 % (11.5-14.5); White Blood Count 4.6 K/mm3 (4.5-10.0)
[2020-06-11 16:38] LABS: INR 0.9; Lactic Acid Reflex 0.6 mmol/L (0.7-2.1); Prothrombin Time 12.9 Seconds (11.1-14.7)
[2020-06-11 16:39] LABS: Partial Thromboplastin Time 30.5 SECONDS (22.3-36.8)
[2020-06-11 16:42] LABS: Alanine Aminotransferase 27 U/L (4-35); Albumin Level 3.6 g/dL (3.5-5.1); Alkaline Phosphatase 50 U/L (38-126); Anion Gap 1 mmol/L (8-16); Aspartate Amino Transferase 30 U/L (14-36); Bilirubin,Total 0.2 mg/dL (0.2-1.3); Blood Urea Nitrogen 14 mg/dL (7-17); CRP < 0.5 mg/dL (<1.0); Calcium 9.3 mg/dL (8.4-10.2); Carbon Dioxide 31 mmol/L (22-30); Chloride 106 mmol/L (98-107); Estimated CRCL calculation 62 ml/min; Estimated Glomerular Filt Rate > 60; Glucose 86 mg/dL (65-105); Potassium 4.1 mmol/L (3.4-5.0); Sodium 138 mmol/L (137-145)
[2020-06-11 17:06] LABS: D Dimer 0.27 ug/mL (<0.48)
[2020-06-11 17:20] LABS: Add Urine Microscopic? YES; Appearance Urine Clear (Clear); Bilirubin Urine Negative (Negative); Blood Urine Negative (Negative); Color Urine Yellow (Yellow); Glucose Urine UA Negative (Negative); Ketones Urine Trace mg/dL (Negative); Leukocyte Esterase Ur Negative LEU/UL (Negative); Nitrate Urine Negative (Negative); Protein Urine Negative (Negative); RBC Urine 0-2 /hpf (0-2); Specific Grav Ur 1.013 (1.001-1.035); Urobilinogen Urine Negative mg/dL (<2.0); WBC Urine 0-3 /hpf
== END 2020-06-11 17:58 | disposition home or self-care (01) ==
PROVIDERS: Emergency Provider General Practice; PCP Physician Assistant
DX: U07.1 COVID-19 (principal); R05 Cough; I10 Essential (primary) hypertension; M06.9 Rheumatoid arthritis, unspecified; Z85.3 Personal history of malignant neoplasm of breast; Z92.21 Personal history of antineoplastic chemotherapy; Z92.3 Personal history of irradiation; E89.0 Postprocedural hypothyroidism; R91.8 Other nonspecific abnormal finding of lung field
CPT/HCPCS: 36415; 36600; 71045; 80053; 81001; 82375; 82805; 83050; 83605; 85025; 85380; 85610; 85730; 86140; 99283

== ENCOUNTER → 2020-08-28 08:56 | Outpatient (CLI) | payer BC, SELFPAY ==
--- NOTE | ~2020-08-28 | XR_ITS ---
XR chest 2V DATE: 08/28/2020 10:26 INDICATION: Covid pneumonia TECHNIQUE: PA and lateral views COMPARISON: 06/11/2020 portable AP chest FINDINGS: Moderate bilateral hyperinflation. No pulmonary infiltrate or consolidation, pleural effusi on or pulmonary vascular congestion or pneumothorax. Normal heart size. No hilar or mediastinal enlargement. Diffuse osteopenia. Mild thoracic and lumbar scoliosis. IMPRESSION: Moderate hyperinflation; no active cardiopulmonary disease Reviewed, dictated and finalized at location B.
== END ==
PROVIDERS: PCP Physician Assistant; Visit Provider Physician Assistant
DX: U07.1 COVID-19 (principal); J12.82 Pneumonia due to coronavirus disease 2019; M41.9 Scoliosis, unspecified
CPT/HCPCS: 71046

== ENCOUNTER 2023-06-05 09:07 | Emergency (ER) | payer BC, SELFPAY ==
[2023-06-05] VITALS (23 sets, daily range): BP systolic 100–132; BP diastolic 65–86; PULSE 63–95; RESP 12–20; TEMP 36.8; O2SAT 95–100
--- NOTE | 2023-06-05 | ECG_ITS ---
Measurements Intervals [place] Rate: 91 P: 60 RI: 178 QRS: 19 QRSD: 78 T: 45 QT: 349 QTc: 429 Interpretive Statements SINUS RHYTHM NORMAL ECG COMPARED TO ECG 05/18/2020 15:21:25 NO SIGNIFICANT CHANGES Electronically Signed On 06-06-2023 14:29:32 INTEGRATION CONSULTANT by Lalit Harrington M.D.
--- NOTE | ~2023-06-05 | XR_ITS ---
EXAMINATION: XR chest 2V DATE: 06/05/2023 09:29 INDICATION: Chest pressure TECHNIQUE: PA and lateral views of the chest are obtained. COMPARISON: 08/28/2020 FINDINGS: The lungs are free of acute opacities. No pleural effusion or pneumothorax. The cardiomedia stinal silhouette is normal. There is moderate thoracic spondylosis. There has been interval insertio n of a neurostimulator device into the right anterior chest wall with a lead coursing into the right neck. IMPRESSION: 1. No acute cardiopulmonary abnormality. Reviewed, dictated and finalized at location B. AND ALCOHOL COUNSELLOR
--- NOTE | ~2023-06-05 | CT_ITS ---
EXAMINATION: CTA chest PE protocol DATE: 06/05/2023 12:47 INDICATION: Chest pain TECHNIQUE: Computed tomography angiography (CTA) of the chest was performed with 100 mL Omnipaque-350 intravenous contrast timed to evaluate the pulmonary arteries. Coronal maximum intensity projection 3D-reconstructions were created by the technologist. The dose-length product (DLP) was 184.41 mGy-cm. Automated exposure control and iterative reconstruction technique were employed. COMPARISON: None. FINDINGS: The pulmonary arteries are well-opacified. No pulmonary embolism is identified. There is m ild dependent atelectasis of the lungs. No pleural effusion or pneumothorax. No pathologically enlarg ed thoracic lymph nodes are identified. The heart size is normal. An electronic stimulator device is implanted in the right anterior chest wall with its lead coursing into the right neck and right subma ndibular space. There is moderate thoracic spondylosis. IMPRESSION: 1. No pulmonary embolism or acute cardiopulmonary abnormality. Reviewed, dictated and finalized at location B. CTOR OF OUTPATIENT SERVICES
--- NOTE | 2023-06-05 09:11 | ECG_ITS ---
Measurements Intervals [place] Rate: 60 P: 22 [place]: 181 QRS: 13 QRSD: 82 T: 28 QT: 392 QTc: 392 Interpretive Statements SINUS RHYTHM LOW QRS VOLTAGE IN PRECORDIAL LEADS [QRS DEFLECTION < 1.0 mV IN CHEST LEADS] OTHERWISE WITHIN NORMAL LIMITS COMPARED TO ECG 05/18/2020 15:21:25 NO SIGNIFICANT CHANGES Electronically Signed On 06-05-2023 12:46:19 SITE SAFETY REPRESENTATIVE by Harpal De León M.D.
[2023-06-05] MEDS: ASPIRIN 81 MG CHEWABLE TABLET 324 MG PO (09:22)
[2023-06-05 09:23] LABS: Basophils Percent Auto 0.3 % (0.2-1.2); Eosinophils Absolute Auto 0.1 K/mm3 (0-0.3); Eosinophils Percent Auto 0.8 % (0-4.4); Hematocrit 38.6 % (37.0-47.0); Hemoglobin 12.2 g/dL (12.0-15.0); Immature Granulocyte Absolute 0.02 K/mm3 (0.00-0.031); Immature Granulocyte Percent A 0.3 % (0-0.5); Lymphocytes Absolute Auto 1.47 K/mm3 (0.9-3.2); Lymphocytes Percent Auto 22.5 % (18.3-44.2); Mean Corpuscular HGB Conc 31.6 g/dl (32-36); Mean Corpuscular Hemoglobin 33.2 pg (26-34); Mean Corpuscular Volume 105.2 fl (80-100); Mean Platelet Volume 10.2 fl (7.4-10.4); Monocytes Absolute Auto 0.8 K/mm3 (0.1-0.6); Monocytes Percent Auto 11.5 % (2.6-8.5); Neutrophils Absolute Auto 4.2 K/mm3 (1.3-6.7); Neutrophils Percent Auto 64.6 % (45.5-73.1); Platelet Count Result 190 k/mm3 (150-375); Red Blood Count 3.67 M/mm3 (4.2-5.4); Red Cell Distribution Width 14.2 % (11.5-14.5); White Blood Count 6.5 K/mm3 (4.5-10.0)
--- NOTE | 2023-06-05 09:27 | ED.CHESTPAIN ---
HPI - Chest Pain General Chief Complaint: Chest Pain <Cristóbal Jung APRN - Last Filed: 06/05/23 14:29> Stated Complaint: CHEST PRESSURE <Cristóbal Jung APRN - Last Filed: 06/05/23 14:29> Time Seen by Provider: 06/05/23 09:13 <Cristóbal Jung APRN - Last Filed: 06/05/23 14:29> Source: patient <Cristóbal Jung APRN - Last Filed: 06/05/23 14:29> Mode of arrival: ambulatory <Cristóbal Jung APRN - Last Filed: 06/05/23 14:29> Limitations: no limitations <Cristóbal Jung APRN - Last Filed: 06/05/23 14:29> History of Present Illness HPI narrative: Yesika is a 62-year-old female patient presenting to the ER today with complaints of left-sided chest pressure. She reports that she started having intermittent and periods of sharp pain that started this morning. Does have some associated shortness of breath and worsening of chest discomfort with exertion. History of brain aneurysm and dissecting carotids. Denies any cardiac history except for tachycardia. No history of cardiac stents or has had a cardiac catheterization. She sees Dr. Godfrey for tachycardia-takes atenolol for this. <Cristóbal Jung APRN - Last Filed: 06/05/23 14:29> Related Data Home Medications: Home Medications Medication Instructions Recorded Confirmed atenolol 50 mg tablet 06/11/20 folic acid 1 mg tablet 06/11/20 hydroxychloroquine 200 mg tablet 06/11/20 methotrexate sodium 2.5 mg tablet 06/11/20 sulfasalazine 500 mg PO 06/11/20 tablet,delayed release valacyclovir 500 mg tablet 06/11/20 <Cristóbal Jung APRN - Last Filed: 06/05/23 14:29> Allergies/Adverse Reactions: Allergies Allergy/AdvReac Type Severity Reaction Status Date / Time adhesive Allergy Unknown WELTS Verified 06/11/20 12:33 anastrozole AdvReac Severe unspecified Verified 06/11/20 12:33 cyclizine AdvReac Unknown HALLUCINATIONS, Verified 06/11/20 12:33 URINARY RETENTION TEGADERM AdvReac Unknown REDNESS/IRR Uncoded 05/17/20 16:54 ITATION <Cristóbal Jung APRN - Last Filed: 06/05/23 14:29> Review of Systems Review of Systems: Pertinent positives per HPI. Patient denies any fever, chills, rash, headache, visual changes, dizziness, runny nose, sore throat, palpitations, nausea, vomiting, diarrhea, constipation, abdominal pain, or any urinary issues. <Cristóbal Jung APRN - Last Filed: 06/05/23 14:29> [facility], [facility] Past Medical History Medical History: Medical History Anterior communicating artery aneurysm Being monitored closely. Cancer of right breast (~2014) Status post lumpectomy and chemo radiation. Essential hypertension Immunocompromised patient Patient on methotrexate, hydroxychloroquine, and sulfasalazine for rheumatoid arthritis. Migraine Paroxysmal supraventricular tachycardia Rheumatoid arthritis <Cristóbal Jung APRN - Last Filed: 06/05/23 14:29> Surgical History Surgical History: Surgical History History of breast biopsy History of lumpectomy of right breast (~2014) As treatment of breast cancer. History of nasal septoplasty History of partial thyroidectomy History of tonsillectomy and adenoidectomy History of tubal ligation <Cristóbal Jung APRN - Last Filed: 06/05/23 14:29> Family History Family History: Family History Mother Family history of osteoporosis Family history of migraine headaches Hypertension Family history of atrial fibrillation Father Depression Family history of arthritis Family history of Alzheimer's disease Family history of hearing loss <Cristóbal Jung APRN - Last Filed: 06/05/23 14:29> Social History Social History: Social History Social History:
[2023-06-05 09:33] LABS: Alanine Aminotransferase 26 U/L (6-35); Albumin Level 4.4 g/dL (3.5-5.1); Alkaline Phosphatase 66 U/L (38-126); Anion Gap 6 mmol/L (8-16); Aspartate Amino Transferase 29 U/L (14-36); Bilirubin,Total 0.5 mg/dL (0.2-1.3); Blood Urea Nitrogen 15 mg/dL (7-17); Carbon Dioxide 26 mmol/L (22-30); Chloride 107 mmol/L (98-107); Estimated CRCL calculation 59 ml/min; Estimated Glomerular Filt Rate > 60; Glucose 103 mg/dL (65-110); Lipase 101 U/L (23-300); Potassium 3.9 mmol/L (3.4-5.0); Sodium 139 mmol/L (137-145)
[2023-06-05 09:45] LABS: Troponin I < 0.012 ng/mL (0.000-0.034)
[2023-06-05 09:58] LABS: Prothrombin Time 13.3 Seconds (11.1-14.7)
[2023-06-05 09:59] LABS: Partial Thromboplastin Time 29.1 SECONDS (22.3-36.8)
[2023-06-05 10:27] LABS: Influenza A QL RT-PCR Negative (Negative); Influenza B QL RT-PCR Negative (Negative); RSV RNA, RT-PCR Negative (Negative); SARS-CoV-2 RNA PCR Negative (Negative)
[2023-06-05 11:27] LABS: NT Pro B Type Natriuretic Pept 62 pg/mL (19.9-100)
[2023-06-05 12:25] LABS: D Dimer 1.02 ug/mL (<0.48)
[2023-06-05 12:28] LABS: Troponin I < 0.012 ng/mL (0.000-0.034)
== END 2023-06-05 14:19 | disposition home or self-care (01) ==
PROVIDERS: Emergency Medicine; Emergency Provider Nurse Practitioner Family; PCP Physician Assistant
DX: R07.89 Other chest pain (principal); R06.02 Shortness of breath; Z20.822 Contact with and (suspected) exposure to COVID-19; I10 Essential (primary) hypertension; I67.1 Cerebral aneurysm, nonruptured; E89.0 Postprocedural hypothyroidism; M06.9 Rheumatoid arthritis, unspecified; Z85.3 Personal history of malignant neoplasm of breast; Z92.21 Personal history of antineoplastic chemotherapy; Z92.3 Personal history of irradiation
CPT/HCPCS: 36415; 71046; 71275; 80053; 83690; 83880; 84484; 85025; 85380; 85610; 85730; 87637; 93005; 99284; A9270; Q9967

== ENCOUNTER 2024-04-17 10:54 | Emergency (ER) | payer BC, SELFPAY ==
--- NOTE | ~2024-04-17 | CT_ITS ---
EXAMINATION: CTA brain carotid DATE: 04/17/2024 13:09 INDICATION: Personal history of carotid artery dissection now with right face pain and neck pain. TECHNIQUE: Computed tomographic angiography (CTA) of the head was performed without and with 100 mL O mnipaque-350 intravenous contrast. CTA of the neck was performed with intravenous contrast. The dose- length product was 1551.07 mGy-cm. Maximum intensity projection and volume rendered 3D-reconstruction s were created by the technologist on a separate workstation. COMPARISON: 08/16/2010. Findings: HEAD: --ANTERIOR AND MIDDLE CEREBRAL ARTERIES AND BRANCHES: Microclip projecting over the origin of the rig ht anterior cerebral artery at the site of patient's prior aneurysmal dilatation. Otherwise normal caliber and contour within the remainder of the anterior cerebral arteries, as well as the middle cerebral arteries and branches. --INTRACRANIAL INTERNAL CAROTID ARTERIES: Mild atheromatous disease but no significant stenosis. No o cclusion. --BASILAR ARTERY AND BRANCHES: Normal caliber and contour. No significant atheromatous disease. --POSTERIOR CEREBRAL ARTERIES: Normal caliber and contour --POSTERIOR COMMUNICATING ARTERIES: Not well visualized, possibly related to congenital absence or sm all size. --ANEURYSM: None visualized. --BRAIN: The ventricles are normal in size, shape and position. There is no mass, mass effect or midline shift. There is no abnormal extra-axial fluid collection or intracranial hemorrhage. Visualized paranasal sinuses are clear. The mastoid air cells are well aerated. No acute displaced fractures within the overlying cranium. NECK: --RIGHT CERVICAL CAROTID SYSTEM: Right carotid artery stent originates 12 mm above the carotid bifurcation, and extends into the orig in of the petrous portion of the right internal carotid artery. Trace atheromatous disease of the carotid bulb and proximal internal carotid artery without significa nt stenosis. Percent stenosis per NASCET criteria is 0%. No carotid dissection --LEFT CERVICAL CAROTID SYSTEM: The left carotid artery hardware originates at the skull base (at the inferior endplate of the C1 deepthi tebral body) and extends along the cervical portion of the left internal carotid artery to the level of the origin of the petrous portion of the left internal carotid artery. Trace atheromatous disease of the carotid bulb and proximal internal carotid artery without significa nt stenosis. Percent stenosis per NASCET criteria is 0%. No carotid dissection. --VERTEBRAL ARTERIES: Normal caliber and contour. --VISUALIZED AORTIC ARCH AND BRANCHING VESSELS: Trace atheromatous disease but no significant stenosi s. --SOFT TISSUES: Unremarkable --CERVICAL SPINE: Age appropriate degenerative changes. IMPRESSION: Prior endovascular interventions as detailed above. No acute pathology detected within the head or neck, to account for patient's symptomatology. Percent stenosis per NASCET criteria is 0% Reviewed, dictated and finalized at location A. MANAGER IMPRESSION: Prior endovascular interventions as detailed above. No acute pathology detected within the head or neck, to account for patient's s ymptomatology. Percent stenosis per NASCET criteria is 0%
[2024-04-17 11:00] VITALS: BP 157/88; PULSE 70; RESP 18; TEMP 36.2; O2SAT 97
[2024-04-17 12:05] LABS: Basophils Percent Auto 0.5 % (0.2-1.2); Eosinophils Absolute Auto 0.1 K/mm3 (0-0.3); Eosinophils Percent Auto 1.3 % (0-4.4); Hematocrit 39.6 % (37.0-47.0); Hemoglobin 13.1 g/dL (12.0-15.0); Immature Granulocyte Absolute 0.02 K/mm3 (0.00-0.031); Immature Granulocyte Percent A 0.4 % (0-0.5); Lymphocytes Absolute Auto 1.52 K/mm3 (0.9-3.2); Lymphocytes Percent Auto 27.2 % (18.3-44.2); Mean Corpuscular HGB Conc 33.1 g/dl (32-36); Mean Corpuscular Hemoglobin 33.3 pg (26-34); Mean Corpuscular Volume 100.8 fl (80-100); Mean Platelet Volume 10.4 fl (7.4-10.4); Monocytes Absolute Auto 0.6 K/mm3 (0.1-0.6); Monocytes Percent Auto 10.6 % (2.6-8.5); Neutrophils Absolute Auto 3.4 K/mm3 (1.3-6.7); Platelet Count Result 233 k/mm3 (150-375); Red Blood Count 3.93 M/mm3 (4.2-5.4); Red Cell Distribution Width 14.6 % (11.5-14.5); White Blood Count 5.6 K/mm3 (4.5-10.0)
[2024-04-17 12:15] LABS: Alanine Aminotransferase 31 U/L (6-35); Albumin Level 4.2 g/dL (3.5-5.1); Alkaline Phosphatase 72 U/L (38-126); Anion Gap 1 mmol/L (4-12); Aspartate Amino Transferase 32 U/L (14-36); Bilirubin,Total 0.6 mg/dL (0.2-1.3); Blood Urea Nitrogen 12 mg/dL (7-17); Carbon Dioxide 30 mmol/L (22-30); Chloride 105 mmol/L (98-107); Estimated CRCL calculation 59 ml/min; Estimated Glomerular Filt Rate > 60; Glucose 95 mg/dL (65-110); Potassium 4.1 mmol/L (3.4-5.0); Sodium 136 mmol/L (137-145)
[2024-04-17 12:17] LABS: INR 0.9; Partial Thromboplastin Time 27.8 Seconds (22.3-36.8); Prothrombin Time 12.8 Seconds (11.1-14.7)
[2024-04-17 12:27] LABS: Troponin I < 0.012 ng/mL (0.000-0.034)
--- NOTE | 2024-04-17 13:30 | ED.GENADULT ---
HPI - General Adult General Chief complaint: Unspecified Stated complaint: wants CTA hx carotid dissect facial/neck pain Time Seen by Provider: 04/17/24 11:14 History of Present Illness HPI narrative: Patient is a 63-year-old female who presents ER requesting a CTA of her head and neck. 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 She then had that stented and then underwent surgical correction of an aneurysm in her brain was found to have left-sided dissection as well which also was stented. She has had no issues over last 2 years and have normal CT scan last month through her surgeon. She started having pain in her face right neck again over last couple days in her surgeon recommended she come in here get a imaging study so he can compare the 2. There is no contacted by the surgeon with the ER. Patient has no chest pain. No exertional component to her discomfort. No facial weakness or numbness. No numbness or weakness to the arms or legs. No slurred speech. Cannot identify aggravating or alleviating factors. Related Data Home Medications ?Medication ?Instructions ?Recorded ?Confirmed ?Last Taken ?Type atenolol 50 mg tablet 06/11/20 Unknown History folic acid 1 mg tablet 06/11/20 Unknown History hydroxychloroquine 200 mg tablet 06/11/20 Unknown History methotrexate sodium 2.5 mg tablet 06/11/20 Unknown History sulfasalazine 500 mg PO 06/11/20 Unknown History tablet,delayed release valacyclovir 500 mg tablet 06/11/20 Unknown History Allergies Allergy/AdvReac Type Severity Reaction Status Date / Time adhesive Allergy Unknown WELTS Verified 04/17/24 10:57 anastrozole AdvReac Severe unspecified Verified 04/17/24 10:57 cyclizine AdvReac Unknown HALLUCINATIONS, Verified 04/17/24 10:57 URINARY RETENTION TEGADERM AdvReac Unknown REDNESS/IRR Uncoded 04/17/24 10:57 ITATION Review of Systems Review of Systems: All systems reviewed & are unremarkable except as noted in HPI and below Constitutional: Constitutional: Reports no additional constitutional complaints ENT: Reports system reviewed and no additional complaints, except as documented Cardiovascular: Cardiovascular: Reports no additional cardiovascular complaints Respiratory: Respiratory: Reports no additional respiratory complaints Neurologic: Reports system reviewed and no additional complaints, except as documented [facility] Past Medical History Medical History Anterior communicating artery aneurysm Being monitored closely. Cancer of right breast (~2014) Status post lumpectomy and chemo radiation. Essential hypertension Immunocompromised patient Patient on methotrexate, hydroxychloroquine, and sulfasalazine for rheumatoid arthritis. Migraine Paroxysmal supraventricular tachycardia Rheumatoid arthritis Surgical History Surgical History History of breast biopsy History of lumpectomy of right breast (~2014) As treatment of breast cancer. History of nasal septoplasty History of partial thyroidectomy History of tonsillectomy and adenoidectomy History of tubal ligation Family History Family History Mother Family history of osteoporosis Family history of migraine headaches Hypertension Family history of atrial fibrillation Father Depression Family history of arthritis Family history of Alzheimer's disease Family history of hearing loss Social History Social History Social History: Surrogate decision maker: Christiano Denney, . Code status: Full code. Smoking status: Never smoker Second hand tobacco smoke exposure: No Alcohol intake: never Substance use: never Substance use type: does not use Living arrangements: with family Additional living arrangements comments: Resides in [place] with her and son. Gender identity (if verbalized by the patient): Female Spiritual care concerns: No Exam Narrative: GENERAL: Well-appearing, well-nourished, and in no acute distress. HEAD: Normocephalic, atraumatic. ENT: Mucous membranes moist. NECK: Supple. No carotid bruit. CHEST: Clear to auscultation. No respiratory distress. HEART: Regular rate and rhythm. Normal peripheral pulses. EXTREMITIES: Normal range of motion. No edema. NEURO: No facial droop. No slurred speech. Alert and oriented x3. PSYCH: Normal mood and affect. Course Course Emergency Course: Unremarkable evaluation. Discharge home. Patient given reassurance. Vital Signs Vital signs: Vital Signs Temperature 97.1 F L 04/17/24 11:00 Pulse Rate 70 04/17/24 11:00 Respiratory Rate 18 04/17/24 11:00 Blood Pressure 157/88 H 04/17/24 11:00 Pulse Oximetry 97 04/17/24 11:00 Oxygen Delivery Room Air 04/17/24 11:00 Temperature 97.1 F L 04/17/24 11:00 Pulse Rate 70 04/17/24 11:00 Respiratory Rate 18 04/17/24 11:00 Blood Pressure 157/88 H 04/17/24 11:00 Pulse Oximetry 97 04/17/24 11:00 Oxygen Delivery Room Air 04/17/24 11:00 Medical Decision Making Vital Signs Vital Signs: Vital Signs Temperature 97.1 F L 04/17/24 11:00 Pulse Rate 70 04/17/24 11:00 Respiratory Rate 18 04/17/24 11:00 Blood Pressure 157/88 H 04/17/24 11:00 Pulse Oximetry 97 04/17/24 11:00 Oxygen Delivery Room Air 04/17/24 11:00 Temperature 97.1 F L 04/17/24 11:00 Pulse Rate 70 04/17/24 11:00 Respiratory Rate 18 04/17/24 11:00 Blood Pressure 157/88 H 04/17/24 11:00 Pulse Oximetry 97 04/17/24 11:00 Oxygen Delivery Room Air 04/17/24 11:00 Lab Data 04/17/24 11:59 04/17/24 11:59 Labs: Lab Results 04/17/24 04/17/24 Range/Units 11:59 11:59 WBC 5.6 (4.5-10.0) K/mm3 RBC 3.93 L (4.2-5.4) M/mm3 Hgb 13.1 (12.0-15.0) g/dL Hct 39.6 (37.0-47.0) % MCV 100.8 H (80-100) fl MCH 33.3 (26-34) pg MCHC 33.1 (32-36) g/dl RDW 14.6 H (11.5-14.5) % Plt Count 233 (150-375) k/mm3 MPV 10.4 (7.4-10.4) fl Immature Gran % (Auto) 0.4 (0-0.5) % Neut % (Auto) 60.0 (45.5-73.1) % Lymph % (Auto) 27.2 (18.3-44.2) % Campbell % (Auto) 10.6 H (2.6-8.5) % Eos % (Auto) 1.3 (0-4.4) % Baso % (Auto) 0.5 (0.2-1.2) % Lymph # (Auto) 1.52 (0.9-3.2) K/mm3 Campbell # (Auto) 0.6 (0.1-0.6) K/mm3 Eos # (Auto) 0.1 (0-0.3) K/mm3 Baso # (Auto) 0.0 (0.0-0.1) K/mm3 Abs Immat Gran (auto) 0.02 (0.00-0.031) K/mm3 Absolute Neuts (auto) 3.4 (1.3-6.7) K/mm3 Absolute Nucleated RBC 0.000 (0.0-0.012) K/mm3 Nucleated RBC % 0.0 (0.0-0.2) % PT 12.8 (11.1-14.7) Seconds INR 0.9 APTT 27.8 (22.3-36.8) Seconds Sodium 136 L (137-145) mmol/L Potassium 4.1 (3.4-5.0) mmol/L Chloride 105 (98-107) mmol/L Carbon Dioxide 30 (22-30) mmol/L Anion Gap 1 L (4-12) mmol/L BUN 12 (7-17) mg/dL Creatinine 0.70 (0.7-1.0) mg/dL Estim Creat Clear Calc 59 ml/min Estimated GFR > 60 (59 - ) Glucose 95 (65-110) mg/dL Calcium 9.0 (8.4-10.2) mg/dL Total Bilirubin 0.6 (0.2-1.3) mg/dL AST 32 (14-36) U/L ALT 31 (6-35) U/L Alkaline Phosphatase 72 (38-126) U/L Troponin I < 0.012 Cancelled (0.000-0.034) ng/mL Total Protein 7.0 (6.3-8.2) g/dL Albumin 4.2 (3.5-5.1) g/dL Imaging Data Radiologist's impression: ITS Impressions Head/Neck CTA 04/17/24 14:21 IMPRESSION: Prior endovascular interventions as detailed above. No acute pathology detected within the head or neck, to account for patient's symptomatology. Percent stenosis per NASCET criteria is 0% Discharge Plan Discharge Clinical Impression: Atypical facial pain Patient Disposition: Home, Self-Care Condition: Stable Instructions: Atypical Facial Pain (ED) Additional Instructions: Return ER if you have fever 100.4? F, he cannot breathe, he cannot swallow, you have focal weakness/numbness in your arms/legs/face, or have additional concerns. Patient Language: Citizen Of [place] Prescriptions: No Action sulfasalazine 500 mg tablet,delayed release (DR/EC) PO valacyclovir 500 mg tablet methotrexate sodium 2.5 mg tablet folic acid 1 mg tablet hydroxychloroquine 200 mg tablet atenolol 50 mg tablet albuterol sulfate 90 mcg/actuation HFA aerosol inhaler 2 puff inhalation QID PRN (Reason: shortness of breath or wheezing) Qty: 6.7 0RF Follow-up/Referrals: Samir,KAREN Ward [Primary Care Provider] - 1 Week
[2024-04-17 16:23] VITALS: BP 157/89; PULSE 58; RESP 20; O2SAT 98
--- OUTSIDE RECORDS SUMMARY | 2024-04-24 05:44 | XMS_ITS ---
Author Organization [facility] Address [address] [place] [address] Care Team Providers Care Creative Services Specialist Name Role Phone Sylvia Dawson Primary Care Provider UnavailDr. Harpal Eden Unavailable [phone] ZJohn-Nelida, Provider Unavailable Sincere humphrey Allergies Allergen (clinical drug ingredient) Drug/Non Drug Allergy documented on EMR Reaction Allergy Type Onset Date Status MAREZINE (uncoded) Urinary retention and hallucinations Allergy [facility] Conversion Encounter Medications Medication SIG (Take, Route, Frequency, Duration) Notes Start Date End Date Status NURTEC ODT 75 MG 1 TAB(S) ORALLY ONCE PRN for 30 DAYS *Please review for potential replacement for e-prescription and drug interaction check* 04/10/2023 Active NURTEC ODT 75 MG 1 TAB(S) ORALLY ONCE for 30 DAYS *Please review for potential replacement for e-prescription and drug interaction check* 04/09/2023 Active Encounters Encounter Location Date Provider Diagnosis [facility] [address] [place] [address] 09/26/2023 Provider ZJohn-Nelida Migraine with aura, not intractable, without status migrainosus G43.109 Assessments Encounter Date Diagnosis (ICD Code) Assessment Notes Treatment Notes Treatment Clinical Notes Section Notes 09/26/2023 Migraine with aura, not intractable, without status migrainosus (ICD-10 - G43.109) Plan Of Treatment Medication Medication Name Sig Start Date Stop Date Notes NURTEC ODT 75 MG 1 TAB(S) ORALLY ONCE PRN for 30 DAYS 04/10/2023 *Please review for potential replacement for e-prescription and drug interaction check* NURTEC ODT 75 MG 1 TAB(S) ORALLY ONCE for 30 DAYS 04/09/2023 *Please review for potential replacement for e-prescription and drug interaction check* Progress Notes * Yesika DENNEYeDOB:1960 (63 yo F)Acc No.[id number]:09/26/2023 Patient:?Yesika DENNEY Provider:?Provider Migration :1960???Age:63 Y???Sex:Female D ate:09/26/2023 Address:[address] [place], [place] [id number] Pcp:Sylvia Dawson Subjective: * Chief Complaints: * ???1. [facility] Con version Encounter. * Medical History:? * Allergies:?MAREZINE: Urinary retention and hallucinations. Objective: * Vitals:? Assessment: * Assessment: 1.?Migraine with aura, not i ntractable, without status migrainosus - G43.109??? Plan: * Treatment: 2.?Others? Start NURTEC ODT TABLET, DISINTEGRATING, 75 MG, 1 TAB(S), ORALLY, ONCE, 30 DAYS, 16, Refills 11, Notes to Pharmacist: *Please review for potential replacement for e-prescription and drug interaction check*.?? * Billing Information: * Visit Code:? * Procedure Codes:? * Electronic signature of Payal FARIA-Migration on 04/24/2024 at 05:44 AM BURN NURSE Sign off status: Pending * Provider:?Provider Migration Date:?09/25 Generated for Denise mike/Delroy/Aracelissmitting on:?04/24/2024 05:44 AM BURN NURSE
--- OUTSIDE RECORDS SUMMARY | 2024-04-24 05:44 | XMS_ITS ---
Author Organization [facility] Address [address] [place] [address] Care Team Providers Care Sound Cutter Name Role Phone Sylvia Dawson Primary Care Provider UnavailDr. Harpal Eden Unavailable [phone] REASON FOR VISIT [facility] Approved 04/10/2023 -04/10/2024 Encounters Encounter Location Date Provider Diagnosis [facility] [address] [place] [address] 04/09/2023 Harpal Carpio Plan Of Treatment No Information Progress Notes * Yesika DENNEYRamonOB:1960 (62 yo F)Acc No.[id number]:04/09/2023 Patient:?Yesika DENNEY :1960???Age:62 Y???Sex:Female Address:[address] [place] [address] * true * Date:? Generated for Printi cee/Delroy/eTransmitting on:?04/24/2024 05:44 AM SOURCING CONSULTANT
--- OUTSIDE RECORDS SUMMARY | 2024-04-24 05:45 | XMS_ITS ---
Author Organization [facility] Address [address] [place] [address] Care Team Providers Care Plastic Surgery Assistant Name Role Phone Sylvia Dawson Primary Care Provider UnavailDr. Harpal Eden Unavailable [phone] REASON FOR VISIT Message Encounters Encounter Location Date Provider Diagnosis [address] [address] 04/09/2023 Harpal Carpio Plan Of Treatment No Information Progress Notes * Yesika DENNEY KayeeDOB:1960 (62 yo F)Acc No.[id number]:04/09/2023 Patient:?Yesika DENNEY :1960???Age:62 Y???Sex:Female Address:[address] [place] [address] * true * Date:? Generated for Abhii cee/Delroy/eTransmitting on:?04/24/2024 05:44 AM ADMINISTRATIVE OFFICER
--- OUTSIDE RECORDS SUMMARY | 2024-04-24 05:45 | XMS_ITS | Patient Health Record ---
Author Organization [facility] Address [address] [place] [address] Care Team Providers Care Veterinarian Small Animal Name Role Phone Sylvia Dawson Primary Care Provider UnavailDr. Harpal Eden Unavailable [phone] ZZ-Migration, Provider Unavailable Sincere humphrey Allergies Allergen (clinical drug ingredient) Drug/Non Drug Allergy documented on EMR Reaction Allergy Type Onset Date Status MAREZINE (uncoded) Urinary retention and hallucinations Allergy Active Reason For Referral No Information Medications Medication SIG (Take, Route, Frequency, Duration) Notes Start Date End Date Status NURTEC ODT 75 MG 1 TAB(S) ORALLY ONCE PRN for 30 DAYS *Please review for potential replacement for e-prescription and drug interaction check* 04/10/2023 Active NURTEC ODT 75 MG 1 TAB(S) ORALLY ONCE for 30 DAYS *Please review for potential replacement for e-prescription and drug interaction check* 04/09/2023 Active Social History Tobacco Use: Social History Observation Description Date Details (start date - stop date) Never Smoker NA - NA Smoking Smart Form: Question Answer Notes Are you a: never smoker Additional Findings:Tobacco Non-User Current non -smoker Problems Problem Type SNOMED Code ICD Code Onset Dates Problem Status W/U Status Risk Notes Problem Migraine with aura (4102525) Migraine with aura, not intractable, without status migrainosus (G43.109) Active confirmed Problem Anisocoria (56122695) Anisocoria (H57.02) Active confirmed Encounters Encounter Location Date Provider Diagnosis [facility] [address] [place] [address] 09/26/2023 Provider Scot Migraine with aura, not intractable, without status migrainosus G43.109 Assessments Encounter Date Diagnosis (ICD Code) Assessment Notes Treatment Notes Treatment Clinical Notes Section Notes 09/26/2023 Migraine with aura, not intractable, without status migrainosus (ICD-10 - G43.109) Plan Of Treatment No Information Insurance Providers Payer Name Payer Address Payer Phone Subscriber Number Group Number Insured Name Patient Relationship to Insured Coverage Start Date Coverage End Date [facility] [id number] [place] [address] [id number] Yesika Denney Anne Self - patient is the insured 3 Medical (General) History Medical History History ICD Code HTN HLD JOSE s/p Inspire (failed CPAP, failed ora l appliance) H/o breast cancer s/p lumpec penelope s/p XRT s/p chemotherapy (intolerant of aromatase inhibitor) RA Benign hypermobility syndrome H/o cerebral aneurysm H/o bilateral internal carotid artery di ssection Migraine Surgical History Surgery Date(Month/Year) Tonsillectomy 05/28/1981 Rhinoseptoplasty 08/25/1984 L Thyroid and parathyroidectomy 01/25/19 98 L Breast cyst removal 06/25/2002 R Breast lumpectomy and 2 lymph nodes re moved 11/16/2014 OS Cataract 05/30/2021 OD Cataract 06/17/2021 OS Vitrectomy 02/11/2022 Carotid stent placement for bilateral ca rotid dissections 04/09/2022 Aneurysm repair - anterior comm artery 0 06/16/2022 Hospitalization History Reason Date(Month/Year) Covid Pneumonia 05/17/2020
--- OUTSIDE RECORDS SUMMARY | 2024-04-24 05:46 | XMS_ITS | Encounter Summary ---
Author Organization [facility] Address [address] [place] [address]. [place], [place] [address] [place] [address] Care Team Providers Care Health Care Specialist Name Role Phone Unavailable Primary Care Provider Unavailabl e Encounter Details Date Type Department Care Team (Late st Contact Info) Description 12/27/1997 [place] [address] , Generic Conversion, Social History Tobacco Use Types Packs/Day Years Used Date Smoking Tobacco: Never Assessed Comments Unknown Sex and Gender Information Value Date Recorded Sex Assigned at Not on file Legal Sex Female 6:08 PM CDT Gender Identity Not on file Sexual Orientation Not on file documented as of this encounter Plan of Treatment Not on file documented as of this encounter Visit Diagnoses Not on filedocumented in this encounter
--- OUTSIDE RECORDS SUMMARY | 2024-04-24 05:46 | XMS_ITS | Clinical Summary ---
Author Organization [facility] Address [address] [place] [address]. [place], [place] [address] [place] [address] Care Team Providers Care Shingler Name Role Phone Unavailable Primary Care Provider Unavailabl e Social History Tobacco Use Types Packs/Day Years Used Date Smoking Tobacco: Never Assessed Comments Unknown Sex and Gender Information Value Date Recorded Sex Assigned at Not on file Legal Sex Female 6:08 PM CDT Gender Identity Not on file Sexual Orientation Not on file Plan of Treatment Health Maintenance Due Date Last Done Comments Cervical Cancer Screening Pa p Smear (Age 30 to 64) Every 3 Years 1960 Colorectal Cancer Screening Colonoscopy (10 Years) 1960 Annual Physical 07/12/1963 Hepatitis C 1978 DTaP, Tdap and Td Vaccines ( 1 - Tdap) 07/12/1979 Cervical Cancer Screening Pa p with HPV Testing (Age 30 to 64) Every 5 Years 1990 Cervical Cancer Screening with HPV 1990 Mammogram Screening 2000 Zoster Vaccines (1 of 2) 2010 COVID-19 Vaccine (2023-2 5 season) 2023 Influenza Adult (#1) 2024 RSV Immunization or 60+ Years (1 - 1-dose 75+ series) 07/12/2035 Meningococcal Vaccine Aged Out No ruben amalia eligible based on patient's age to complete this topic Pneumococcal Vaccine: Pediat rics (0 to 5 Years) and At-Risk Patients (6 to 64 Years) Aged Out No longer eligible b ased on patient's age to complete this topic RSV Immunizations Under 20 Months Aged Out No longer eligible based on patient's age to complete this topic
--- OUTSIDE RECORDS SUMMARY | 2024-04-24 05:47 | XMS_ITS | Encounter Summary ---
Author Organization [facility] Address [address] [place] [address] Phone Care Team Providers Care Rn Bsn Name Role Phone Erica Rodrigues MD Unavailable Gasper Kaba MD Unavailable Brandy Aguirre WATER PROJECT MANAGER Unavailable Jo-Ann Morrow PhD Unavailable [phone] Christina Louis TIME STUDY ANALYST Unavailable [phone] Sylvia Dawson Primary Care Provider [phone] Jessy Adame MD Unavailable Harpal Carpio MD Unavailable [phone] Rossana Church DNP Unavailable Zahida Kaplan Unavailable Fadi Cook Unavailable [phone] Harpal De León MD Unavailable Valorie Young MD Unavailable Patricia Martinez MD Unavailable [phone] Encounter Details Date Type Department Care Team (Latest Contact Info) Description 09/09/2023 Orders Only [facility] SLEEP Scanning, Provider Social History Tobacco Use Types Packs/Day Years Used Date Smoking Tobacco: Never Passive Smoke Exposure: Never Smokeless Tobacco: Never Alcohol Use Standard Drinks/Week Comments Yes 1 (1 standard drink = 0.6 oz pur e alcohol) social AUDIT-C Answer Date Recorded Q1: How often do you have a drink containing alc ohol? Monthly or less 02/24/2023 Q2: How many drinks containi ng alcohol do you have on a typical day when you are drinking? 1 or 2 02/24/2023 Q3: How often do you have si x or more drinks on one occasion? Never 02/24/2023 PHQ-2 Answer Date Recorded PHQ-2 Total Score (If total score is 3 or more points, staff should administer the PHQ-9) 0 04/01/2023 Personal Safety Answer Date Recorded Have you ever been in or are you currently in a harmful physical or emotional relationship or is someone making you feel afraid or unsafe? 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 Not on file Not on file Not on file documented as of this encounter Plan of Treatment Not on file documented as of this encounter Procedures Procedure Name Priority Date/Time Associated Diagnosis Comments SLEEP LAB/STUDY - RESULT 09/09/2023 4:59 PM CDT documented in this encounter Results * SLEEP LAB/STUDY - RESULT (09/09/2023 4:59 PM CDT) us Provider Scanning Final Result documented in this encounter Visit Diagnoses Not on filedocumented in this encounter Care Teams Rn Bsn Relationship Specialty Start Date End Date Sylvia Dawson PA [address] [place] [address] PCP - General Internal Medicine 01/05/20 Erica Rodrigues MD [address] [facility] [address] [place] [address] Radiation Oncologist Radiation Oncology 10/25/18 Gasper Kaba MD [address] [place] [address] Surgeon Surgical Oncology 10/25/18 Brandy Aguirre WATER PROJECT MANAGER [address] [place] [address] Nurse Practitioner Certified Clinical Nurse Specialist 10/25/18 Jo-Ann Morrow, PhD [address] [place] [address] Nurse Practitioner Radiation Oncology 10/25/18 Christina Louis, TIME STUDY ANALYST [address] [facility] [address] [place] [address] Nurse Practitioner Medical Oncology 10/25/18 Jessy Adame MD [address] [facility] DEPT OPHTHALMOLOGY, [address] [place] [address] Consulting Physician Retina Ophthalmology 04/15/23 Harpal Carpio MD [address] [place] [address] Neurologist Neurology 04/15/23 Rossana Church DNP [address] [place] [place] [address] Nurse Practitioner Nurse Practitioner 04/15/23 Zahida Kaplan PA [address] [facility] NEUROLOGY GENERAL, [address] [address] Physician House Father Physician House Father 04/15/23 Fadi Cook PA [address] [facility] DIV NEUROLOGY SLEEP MED, [facility] [address] [place] [address] Physician House Father Sleep Medicine 04/15/23 Harpal De León MD [address] [place] [address] Solderer Dipper Cardiology 04/15/23 Valorie Young MD [address] [facility] [address] [place] [address] Solderer Dipper Cardiology 04/15/23 Patricia Martinez MD [address] [facility] DIV IM RHEUMATOLOGY, [facility] [address] [place] [address] Consulting Physician Rheumatology 04/15/23 documented as of this encounter
--- OUTSIDE RECORDS SUMMARY | 2024-04-24 05:47 | XMS_ITS ---
Author Organization [facility] al Address [address] [place] [address] Care Team Providers Care Group Fitness Assistant Department Head Name Role Phone Erica Rodrigues MD Unavailable Gasper Kaba MD Unavailable Brandy Aguirre SUPERINTENDENT CEMETERY Unavailable Jo-Ann Morrow PhD Unavailable [phone] Christina Louis QUALITY CONTROL SYSTEMS MANAGER Unavailable [phone] Sylvia Dawson Primary Care Provider [phone] Jessy Adame MD Unavailable Harpal Carpio MD Unavailable Rossana hCurch DNP Unavailable Zahida Kaplan Unavailable Fadi Cook Unavailable [phone] Harpal De León MD Unavailable Valorie Young MD Unavailable [phone] Patricia Martinez MD Unavailable [phone] Active Problems Problem Noted Date Diagnosed Date Need for influenza vaccination 04/03/2024 Assessment & Plan (04/03/2024 10:18 PM IT TELECOM TECHNICIAN): Flu vaccine updated in the office today Breast cancer screening by mammogram 04/03/2024 Assessment & Plan (04/03/2024 10:18 PM IT TELECOM TECHNICIAN): Mammogram order provided Trigger little finger of right hand 03/24/2024 Primary insomnia 09/02/2023 Assessment & Plan (10/21/2023 12:26 PM CDT): Due to continued symptoms, the patient will continue with cognitive behavior therapy for insomnia. I also gave the patient a low dose Ambien 5 mg nightly. We did discuss the risks of taking the Ambien such as side effects,respiratory depression, an increase of JOSE symptoms. Assessment & Plan (09/02/2023 4:02 PM CDT): The patient presents with primary insomnia. We did discuss cognitive behavioral therapy associated with sleep restriction therapy. I did give her the 2 brochures their published by the [employer] [employer] regarding understanding insomnia and also how to sleep better. I also recommended an exercise program. She will follow up here in 6 weeks to assess her progress. I did tell her it was okay to continue with melatonin but then I would discontinue the CBD. 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 Elmore, and I greatly appreciate Dr. Elmore's willingness to see this patient with me today. Consistent with punctate epithelial erosions (PEE) vs. Possibly Thygeson's. Will start durezol qdaily both eyes (OU). She will see Dr. Elmore again in 2 weeks. She states she has plenty of this medication at home and does not need refills. Unequal pupils 04/12/2023 Assessment & Plan (04/12/2023 10:48 PM IT TELECOM TECHNICIAN): Patient noted different sized pupils in January. Has been seeing Dr. Adame as well as neurologist Dr. Carpio and patient still states she is not sure why this is occurring. Encouraged her to follow back up with Ophthalmology her retinal specialist. She would like to see neuro shipwright helper for another opinion. Will place the referral to Dr. Al at [facility] Need for immunization against influenza 04/12/20 Assessment & Plan (04/12/2023 10:51 PM IT TELECOM TECHNICIAN): Flu vaccine updated in the office today BMI 26.0-26.9,adult 04/01/2023 Assessment & Plan (03/23/2024 1:54 PM IT TELECOM TECHNICIAN): Weight/BMI is in healthy range. Continue healthy lifestyle to maintain. Assessment & Plan (04/01/2023 3:05 PM IT TELECOM TECHNICIAN): Weight/BMI is in healthy range. Continue healthy lifestyle to maintain. Amaurosis fugax of right eye 03/12/2023 Assessment & Plan (03/16/2023 3:53 PM IT TELECOM TECHNICIAN): Notes episodes of superior vision loss, mainly OD, lasts for less than 10 min. History of R ant communicating aneurysm. Will communicate these symptoms with Dr. Moss. Addendum: [place] from [facility] office - may be related to orthostatic hypotension, she will be speaking to cardiology. Obstructive sleep apnea 06/19/2022 Overview (04/08/2023): DIAGNOSIS: Obstructive sleep apnea PROCEDURE PERFORMED:(Roddy 03/20/23) Right hypoglossal nerve stimulator implantation Generator placement right chest wall Lead placement right intercostal muscle Assessment & Plan (10/21/2023 12:25 PM CDT): The patient will continue with the hypoglossal stimulation device/inspire. She is going to complete a nocturnal polysomnogram to determine effectiveness. The patient will also continue with positional therapy. Assessment & Plan (09/02/2023 4:02 PM CDT): The patient had placement of the inspire device and a repeat nocturnal polysomnogram is pending at the sleep lab at [facility]. Assessment & Plan (04/12/2023 10:50 PM IT TELECOM TECHNICIAN): DIAGNOSIS: Obstructive sleep apnea PROCEDURE PERFORMED:(Roddy 03/20/23) Right hypoglossal nerve stimulator implantation Generator placement right chest wall Lead placement right intercostal muscle Patient continues to complain of nerve type pain in the area. She is requesting gabapentin. One hundred b.i.d. sent to pharmacy to trial. Reviewed risks benefits alternatives side effects and proper use Assessment & Plan (06/19/2022 12:05 PM IT TELECOM TECHNICIAN): Due to the patient feeling like the pressure is too strong I will change the pressures to 5-11 cm of water pressure. I did advise the patient that hopefully the change in CPAP pressures will allow her to sleep through the night. The patient just had surgery due to a brain aneurysm. She is currently not able to do strenuous exercise. The patient's DME is [facility]. Brain aneurysm 06/16/2022 History of right common carotid artery stent kristi cement 05/04/2022 Overview (05/04/2022): 04/09/2022 - known anterior communicating artery aneurysm that had planned treatment. Right carotid dissection noted. Stent placed. Assessment & Plan (03/16/2023 4:49 PM IT TELECOM TECHNICIAN): SP bilateral stenting in the setting of bilateral carotid artery dissection. Following with neurology. 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 Mom had bicuspid AV and aneurysm repair. Will message genetics, Dr. Young and Dr. Moss for consideration of work up for Elhers Danols, or other connective tissue disorder. ASA and statin. Assessment & Plan (05/04/2022 8:02 PM IT TELECOM TECHNICIAN): Continue per [facility] Chronic tension-type headache, not intractable 0 05/04/2022 Assessment & Plan (05/04/2022 8:04 PM IT TELECOM TECHNICIAN): Patient with chronic headaches prior to this surgery. These headaches have always responded to Fioricet. Encouraged to use Tylenol 1st line in breakthrough symptoms may use the Fioricet as needed. 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 Assessment & Plan (01/29/2023 10:49 AM CDT): She noticed that the right pupil might be slightly larger than the left, on examination today before dilation I was not convinced of a significant difference. She had an angiogram yesterday which was unconcerning, and follow-up was all that was recommended. Assessment & Plan (09/25/2022 4:19 PM CDT): Historically she has a family history of hypermobility with the mother who also had aortic aneurism but still living at age 87 in the setting of her own significant history of bilateral carotid artery dissections and cerebral aneurism. I think she benefit from genetic testing and will discuss with our manager of pharmacy whether a referral to Genetics or to them would be optimal Annual physical exam 02/28/2022 Assessment & Plan (04/03/2024 10:17 PM IT TELECOM TECHNICIAN): Encouraged healthy lifestyle, good nutrition and exercise. Encouraged Calcium and Vitamin D and weight bearing exercise for bone health. Reviewed immunizations Reviewed age appropirate screenings. Assessment & Plan (04/12/2023 10:50 PM IT TELECOM TECHNICIAN): Encouraged healthy lifestyle, good nutrition and exercise. Encouraged Calcium and Vitamin D and weight bearing exercise for bone health. Reviewed immunizations Reviewed age appropirate screenings. Assessment & Plan (03/01/2022 7:30 PM IT TELECOM TECHNICIAN): Encouraged healthy lifestyle, good nutrition and exercise. Encouraged Calcium and Vitamin D and weight bearing exercise for bone health. Reviewed immunizations Reviewed age appropirate screenings. Recurrent cold sores 02/28/2022 Assessment & Plan (03/01/2022 7:30 PM IT TELECOM TECHNICIAN): Continue Valtrex p.r.n. for cold sores Hyperglycemia 02/28/2022 Assessment & Plan (04/03/2024 10:17 PM IT TELECOM TECHNICIAN): Pre-diabetes/hyperglycemia is a precursor to Dm. Stressed importance of working on diet (decrease your simple sugars and one carbohydrate with each meal) and increase you exercise to achieve weight loss and this will help prevent you from progressing to diabetes. Assessment & Plan (03/01/2022 7:30 PM IT TELECOM TECHNICIAN): Pre-diabetes/hyperglycemia is a precursor to Dm. Stressed importance of working on diet (decrease your simple sugars and one carbohydrate with each meal) and increase you exercise to achieve weight loss and this will help prevent you from progressing to diabetes. PCO (posterior capsule opacification), bilateral 08/27/2021 Assessment & Plan (08/27/2021 10:44 AM CDT): She has posterior capsular opacification in both eyes followed by Dr. Contreras. I do not recommend a eye capsulotomy at this time until the macular edema is resolved. She is responsive to the topical medications and will see Dr. Curtis again at the next visit. Pattern dystrophy of macula 08/27/2021 Assessment & Plan (08/27/2021 10:51 AM CDT): There is some subretinal yellowish pseudo patella form like material in both eyes under the areas with there is cystoid edema. This could be related to the cystic edema but it is apparent both on clinical examination and on the OCT. Dr. Adame will continue to monitor this and can reassess once the CME is cleared. If it resolves then it is unlikely to be pattern dystrophy and may just be the turbid fluid with CME otherwise it can be followed with an Amsler Cystoid macular edema of both eyes 08/19/2021 Assessment & Plan (04/29/2023 4:02 PM IT TELECOM TECHNICIAN): She is now off durezol completely. There is no cystoid macular edema (CME) today both eyes (OU). There are likely lamellar changes that have remained stable. Recommend observation. Assessment & Plan (03/12/2023 9:51 AM IT TELECOM TECHNICIAN): She is currently on durezol qid right eye (OD)- there has been limited improvement on OCT, however given the persistence of these findings, these are likely lamellar changes. Can begin to taper off the durezol weekly and will re-evaluate in 6 weeks off the drops. Vision get blurry as day goes on, cause unclear. Recommend observation. Assessment & Plan (01/29/2023 10:48 AM CDT): Has a small amount of recurrent macular edema in the right eye. Recommend restarting Durezol 4 times a day in the right eye, we will re-evaluate roughly 6 weeks time. Assessment & Plan (12/18/2022 10:02 AM CDT): Patient on durezol QID OD- good improvement. Will slowly taper from durezol. Assessment & Plan (11/12/2022 9:08 AM CDT): Only with trace macular edema in the right eye. I have encouraged her to stay on the drops 4 times a day (Durezol). We will re-evaluate in roughly 4 weeks time. If remains stable at that time will try to wean slowly from Durezol. Assessment & Plan (10/29/2022 10:12 AM CDT): Status post vitrectomy surgery, has persistent cystoid macular edema. Is on Durezol QID OD - improving. No ME OS. Recommend stay on Durezol QID OD. We will re-evaluate in roughly 2-3 weeks time. Assessment & Plan (10/16/2022 10:32 AM CDT): Status post vitrectomy surgery, has persistent cystoid macular edema. Is using Pred Forte in the right eye 4 times a day. Despite this is having new symptoms, and has persistent cystoid macular edema in the right eye. Recommend discontinuing Pred Forte and changing to Durezol 4 times a day in the right eye. We will re-evaluate in roughly 2 weeks time. Assessment & Plan (10/06/2022 11:00 AM CDT): Status post vitrectomy surgery, has persistent cystoid macular edema. Recommend staying on Pred Forte 4 times a day we will re-evaluate in roughly 3 weeks time. In general feels vision is improving Is noticing symptoms of a shadow inferiorly from time to time as well as sciltillating scotomas, has a history of migraines fortunately does not appear to have retinal detachment or tear. These symptoms may be due to healing from the vitrectomy surgery and persistent macular edema but fortunately I see no other retinal pathology to explain her symptoms. Recommend follow up for migrane with PMD Assessment & Plan (09/29/2022 12:27 PM CDT): Six days following vitrectomy air-fluid exchange to the right eye. 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 She has a history of rheumatoid arthritis. Examination today demonstrates a patch of injected scleral blood vessel superotemporally in the right eye. 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 I have asked that she continue her topical steroid eye drop in the right, that she discontinue the tobramycin in the right. The episode in the left eye in 2018 was treated with p.o. prednisone, under the care of Dr. Martinez. We will seek Dr. Martinez advice regarding therapy for the scleritis in right eye today. Assessment & Plan (09/24/2022 9:12 AM CDT): One day status post pars plana vitrectomy (PPV)/Afx to the right eye. Doing well. Shield operated eye, Tobramycin 4x/day and Predforte 4x/day Return to clinic in one week. Signs and symptoms of retinal detachment, tears and endophthalmitis, elevated pressure reviewed with patient. Post Op Position:None. Altitude precautions are not needed. No strenuous activity. Assessment & Plan (07/17/2022 10:34 AM CDT): Currently off durezol completely since 05/04. OCT shows continued resolution of cystoid macular edema (CME) left eye (OS) and subjective improvement as well. She has stopped trusopt as well. Will continue to observe now off drops. With vitrectomy for floaters in the left eye, doing well - she is very happy with results. She is interested in vitrectomy in the right eye,s/p brain/carotid aneurysm surgery - doing well. She feels that she will be off of anti-coagulants in September. Will scheduled PPV for floaters OD when she is ready. Risks, benefits and alternatives for surgery include by not limited to infection, bleeding, damage to the eye, loss of vision, loss of the eye,deformity, diplopia, increased IOP, cataract, need for new refraction, RD, RT, gas injection, post op positioning, altitude precautions, silicone oil placement, need for additional surgery, inflammation to one or both eyes, no guarantees were made, and the guarded prognosis was discussed with the patient. Reviewed with them that is a teaching institution and that trainees, medical students, residents, fellows may be involved in their care and may be preforming parts of the procedure, however an attending doctor would be present to assure everything went as well as possible.They understand and wish to proceed. Assessment & Plan (05/15/2022 10:23 AM IT TELECOM TECHNICIAN): Currently off durezol completely since 05/04. OCT shows continued resolution of cystoid macular edema (CME) left eye (OS) and subjective improvement as well. She has stopped trusopt as well. Will continue to observe now off drops. With vitrectomy for floaters in the left eye, doing well. She is interested in vitrectomy in the right eye, will await resolution of her brain/carotid aneurysms prior to planning any surgery in the right eye. Assessment & Plan (03/27/2022 12:21 PM IT TELECOM TECHNICIAN): Currently on durezol qid left eye (OS) with great response. cystoid macular edema (CME) resolved today left eye (OS). Will begin slow durezol taper. Begin TID x 2 weeks, BID x 2 weeks, daily x 2 weeks then stop. Will re-evaluate in 4 weeks when she is on BID dosing. intraocular pressure (IOP) improved after being on trusopt. Recommend continuing at TID dosing. Assessment & Plan (03/12/2022 9:08 AM IT TELECOM TECHNICIAN): She is happy with the lack of floaters in the left eye, her vision is still blurry in the left eye. OCT demonstrates much improved macular edema left eye after being on durezol qid left eye (OS). Pain has improved after removing of the filament. Given that intraocular pressure (IOP) is increasing left eye (OS), will add trusopt left eye (OS) TID. Will keep patient on durezol qid left eye (OS) and will consider taper at f/u in 2 weeks. . Continue PFAT Assessment & Plan (02/26/2022 8:53 AM IT TELECOM TECHNICIAN): She is happy with the lack of floaters in the left eye, her vision is still blurry in the left eye. OCT demonstrates worsening macular edema left eye. Pain has improved after removing of the filament. I have asked that she change the Pred Forte to Durezol 4 times a day in the left eye. She is no longer on eyedrops in the right eye. She is no longer on tobramycin drops in the left eye. Continue PFAT Assessment & Plan (02/19/2022 9:05 AM IT TELECOM TECHNICIAN): One week status post vitrectomy, capsulectomy to the left eye. Doing well. Pt came in 2 days ago complaining of pain/irritation which has since improved. Persistent filament seen inferiorly on the cornea. We discussed the possibility of removing it, as well as the risks and benefits. After discussion patient wished to proceed with removal of the filament. Using a jeweler's forceps the filament was removed from the surface of the cornea without complication. I have asked that she use the tobramycin 4 times a day for 1 more day and then discontinue use altogether. As she has worsened macular edema 1 week following vitrectomy surgery in the left eye, I have asked that she stay on the topical Pred Forte 4 times a day until I see her again next week. If the macular edema persists, we will consider changing back to Durezol 4 times a day in the left eye. Return to clinic in one week. Signs and symptoms of retinal detachment, tears and endophthalmitis, elevated pressure reviewed with patient. Post Op Position:None. Altitude precautions were reviewed with patient. No strenuous activity. Assessment & Plan (02/17/2022 11:11 AM IT TELECOM TECHNICIAN): Less than 1 week following vitrectomy for vitreous floaters left eye. Called today with achiness over the temporal portion of her head and upper brow of the left eye. IOP good, no signs of infection. This began yesterday, was worse yesterday, perhaps slightly better today, much improved with the application of topical anesthetic drops. Noted to have a filament on the cornea epithelium inferiorly in the left eye. Recommend that she continue her topical steroid and antibiotic drop until I see her again on Thursday, I have asked that she increase her preservative-free artificial Tear use to every 2 hours while awake in the left eye. I have asked that she keep her scheduled appointment on Thursday Assessment & Plan (02/12/2022 8:12 AM CDT): One day status post vitrectomy, capsulectomy to the left eye. Doing well. Shield operated eye, Tobramycin 4x/day and Predforte 4x/day Return to clinic in one week. Signs and symptoms of retinal detachment, tears and endophthalmitis, elevated pressure reviewed with patient. Post Op Position:None. Altitude precautions were reviewed with patient. No strenuous activity. Assessment & Plan (02/03/2022 1:24 PM CDT): History of at a distance a history of breast cancer, required Arimidex, developed rheumatoid arthritis. Currently on methotrexate Plaquenil and sulfasalazine CME improved/stable both eyes (OU)- she has been off of durezol now for ~6 weeks and OCT shows no worsening cystoid macular edema (CME). Continue off durezol and extend f/u to 2 months. Given stability, can refer now for yag cap as previously discussed, however she is interested in PPV for floaters. Could perform capsulectomy at time of PPV surgery. Feel very bothered by the floaters, the left being worse than the right. She would like to proceed with vitrectomy surgery 1st in the left than the right. Risks, benefits and alternatives for surgery include by not limited to infection, bleeding, damage to the eye, loss of vision, loss of the eye,deformity, diplopia, increased IOP, cataract, need for new refraction, RD, RT, gas injection, post op positioning, altitude precautions, silicone oil placement, need for additional surgery, inflammation to one or both eyes, no guarantees were made, and the guarded prognosis was discussed with the patient. Reviewed with them that is a teaching institution and that trainees, medical students, residents, fellows may be involved in their care and may be preforming parts of the procedure, however an attending doctor would be present to assure everything went as well as possible.They understand and wish to proceed. She is agreed to participate in the vitreous bank study. Assessment & Plan (01/06/2022 1:42 PM CDT): History of at a distance a history of breast cancer, required Arimidex, developed rheumatoid arthritis. Currently on methotrexate Plaquenil and sulfasalazine CME improved/stable OU, we have been decreasing durezol slowly and she is now been off of the drop for about 12 days. No recurrence of ME. Will re-eval in 4 weeks, if remains stable she is interested in YAG capsulotomy. Pt is very bothered by floaters - she underwent CE/IOL surgery in preparation for vitrectomy. Reviewed with pt the R/B/A of surgery. Agreed to wait for now until we get CME controlled. If unable to control CME with local means may need to proceed to PPV. Assessment & Plan (12/11/2021 10:27 AM CDT): History of at a distance a history of breast cancer, required Arimidex, developed rheumatoid arthritis. Currently on methotrexate Plaquenil and sulfasalazine CME improved/stable OU, we have been decreasing durezol slowly and she is on it BID OU for the last two weeks. Will decrease to daily for 2 weeks then stop. Will re-eval in 4 weeks, . Pt is very bothered by floaters - she underwent CE/IOL surgery in preparation for vitrectomy. Reviewed with pt the R/B/A of surgery. Agreed to wait for now until we get CME controlled. If unable to control CME with local means may need to proceed to PPV. Assessment & Plan (11/13/2021 11:16 AM CDT): History of at a distance a history of breast cancer, required Arimidex, developed rheumatoid arthritis. Currently on methotrexate Plaquenil and sulfasalazine CME improved/stable OU with Durezol QID OU Ok to decrease Durezol slowly. Will re-eval in 4 weeks, if remains stable will slowly wean from drops. Pt is very bothered by floaters - she underwent CE/IOL surgery in preparation for vitrectomy. Reviewed with pt the R/B/A of surgery. Agreed to wait for now until we get CME controlled. If unable to control CME with local means may need to proceed to PPV. Assessment & Plan (10/21/2021 1:21 PM CDT): History of at a distance a history of breast cancer, required Arimidex, developed rheumatoid arthritis. Currently on methotrexate Plaquenil and sulfasalazine CME improved OU with Durezol 6x/day OD, and 4x/day OS. Ok to decrease Durezol to 4x/day OD, will then be at QID OU - will make it easier to get doses in regularly. Will re-eval in 4 weeks, if remains stable will slowly wean from drops. Pt is very bothered by floaters - she underwent CE/IOL surgery in preparation for vitrectomy. Reviewed with pt the R/B/A of surgery. Agreed to wait for now until we get CME controlled. If unable to control CME with local means may need to proceed to PPV. Assessment & Plan (09/19/2021 11:19 AM CDT): History of at a distance a history of breast cancer, required Arimidex, developed rheumatoid arthritis. Currently on methotrexate Plaquenil and sulfasalazine Right eye remains stable now on durezol QID x 1 month. Left eye has improved on durezol QID Given lack of improvement OD, discussed giving topical medication longer time to work vs. Oral prednisone (50mg) and will hold off on systemic therapy for now. Will increase durezol to 6x/day OD and hold at QID OS given IOP wnl. Return 1 month Consider addition of topical NSAID vs. PO prednisone vs. STK Assessment & Plan (08/27/2021 10:44 AM CDT): This is a patient of Dr. Adame's who is undergoing treatment for CME OU with Durezol 4x/day OU. OCT shows improved CME OU compared to 08/19/21. Reassuring exam with no cellular inflammation OU. Attached OU. Patient does have some surface dryness that's most prominent in the right eye. This could explain her blurry vision right eye that improves to baseline vision with pinhole. Recommend artificial tears, use in between the other drops. Follow-up with Dr. Adame as scheduled next week. Assessment & Plan (08/19/2021 10:53 AM CDT): History of at a distance a history of breast cancer, required Arimidex, developed rheumatoid arthritis. Currently on methotrexate Plaquenil and sulfasalazine Has had floaters since 2016, underwent cataract extraction intra-ocular lens placement in both eyes in preparation for vitrectomy surgery for the floaters. 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 Changed from prednisolone to Lotemax and Prolensa only in Left eye. Patient arrives to us today seeking a 2nd regarding her ocular condition. She was told also that she may benefit from YAG capsulotomy. She would like to transfer care to [facility] as her other doctors are also in the system. Recommended that she discontinue the Lotemax and Prolensa., that instead she begin Durezol 4 times a day in both eyes. Risks of Durezol were reviewed with the patient. Will have her come back in 2 weeks for pressure check, and then formal evaluation with OCT testing in 4 weeks. If this does not improve her cystoid macular edema both eyes, recommend a trial of p.o. prednisone, verses subtenon Kenalog injections to both eyes. If this does not help her then would move on to vitrectomy surgery as well. I see no other evidence for toxicity from Plaquenil, I think it is okay for her to continue this medication. Would hold off on YAG capsulotomy until the cystoid macular edema is under control. Pain in both feet 07/05/2021 Assessment & Plan (07/05/2021 8:39 PM CDT): Suspect neuromas with the pain being to wean the 2nd and 3rd toe and ball the foot. Will refer to curb setter helper for further evaluation. Advise could try making a donut out of mole skin to create protection while waiting to take the pressure off of that area. Breast mass 04/02/2021 Moderate episode of recurrent major depressive d isorder 02/27/2021 Assessment & Plan (04/12/2023 10:48 PM IT TELECOM TECHNICIAN): Stable. Patient would like to try to taper since she feels like she is taking it more for the hot flashes. Will decrease the Prozac to 10 mg. Reassess in 3-4 months to continue taper as appropriate Assessment & Plan (08/26/2021 10:14 AM CDT): Stable with Prozac Assessment & Plan (07/05/2021 8:38 PM CDT): Stable with Prozac 20 mg Assessment & Plan (02/27/2021 11:34 PM IT TELECOM TECHNICIAN): Continue Prozac 20 mg Fatigue 08/22/2020 Assessment & Plan (04/03/2024 10:17 PM IT TELECOM TECHNICIAN): Probably multifactorial. Check labs and followup to re-evaluate Assessment & Plan (03/01/2022 7:28 PM IT TELECOM TECHNICIAN): Probably multifactorial. Check labs and followup to re-evaluate Assessment & Plan (08/22/2020 10:37 PM CDT): Probably multifactorial. Check labs and followup to re-evaluate Significant fatigue. Patient is unsure if it is post COVID -19 verses low blood pressure/fluctuating blood pressure verses the atenolol verses other reasons both possibly related to post COVID her otherwise. She is planning to follow-up with Dr. De León so a cardiac workup can be pursued if appropriate. She denies currently any depression symptoms or increase in depression symptoms as the Prozac seems to be controlling well. Will continue to monitor closely. Denies any JOSE symptoms. Will allow Dr. Guerrier to complete workup check x-ray for resolution of the pneumonia and then continue to monitor closely. She is in agreement with this plan Tachycardia 06/11/2020 Assessment & Plan (06/11/2020 11:25 AM IT TELECOM TECHNICIAN): Patient directed to er for further evaluation and treatment. to drive. Cough 06/11/2020 Assessment & Plan (06/11/2020 11:25 AM IT TELECOM TECHNICIAN): Patient directed to er for further evaluation and treatment. to drive. Hypertension, essential 06/04/2020 Assessment & Plan (04/03/2024 10:17 PM IT TELECOM TECHNICIAN): Bp is stable/in acceptable range for any co-morbidities. Encouraged to limit sodium intake and exercise for weight control. Continue lisinopril 40 and atenolol 25 hydrochlorothiazide 12.5 Assessment & Plan (03/16/2023 4:47 PM IT TELECOM TECHNICIAN): Controlled, no additional recs. Lisinopril 40 mg daily, atenolol 25 mg daily and HCTZ 12.5 mg PRN. She takes this approximately once a week from her notes. Dr. Young in 6 months. Assessment & Plan (03/01/2022 7:28 PM IT TELECOM TECHNICIAN): Bp is stable/in acceptable range for any co-morbidities. Encouraged to limit sodium intake and exercise for weight control. Continue lisinopril and to Gato Assessment & Plan (08/26/2021 10:13 AM CDT): Bp is stable/in acceptable range for any co-morbidities. Encouraged to limit sodium intake and exercise for weight control. Taking the to [place] 25 daily. Since her eye surgery her readings have dropped and at times RI below the 100s systolic. She has been using her lisinopril more as p.r.n.. Encouraged her to take readings over the next week or 2 and call with them. If they are perfect without the lisinopril will continue to tenormin 25. If there is a slight elevation may do best with a low-dose like 5-10 mg of the lisinopril. Assessment & Plan (07/05/2021 8:38 PM CDT): Bp is stable/in acceptable range for any co-morbidities. Encouraged to limit sodium intake and exercise for weight control. Continue lisinopril and atenolol Assessment & Plan (02/27/2021 11:34 PM IT TELECOM TECHNICIAN): Bp is stable/in acceptable range for any co-morbidities. Encouraged to limit sodium intake and exercise for weight control. Continue atenolol and lisinopril Assessment & Plan (08/22/2020 10:36 PM CDT): Bp is stable/in acceptable range for any co-morbidities. Encouraged to limit sodium intake and exercise for weight control. Pt states bp is fluctuating up and down. Wants to return to Dr. Victor for further evaluation. She is a current patient so she will set her own appointment Assessment & Plan (06/04/2020 9:39 PM IT TELECOM TECHNICIAN): Bp is in low range for any co-morbidities. Encouraged to limit sodium intake and exercise for weight control. Continue to hole the lisinopril Cut atenolol to 25mg. Monitor readings at home. History of COVID-19 05/30/2020 Overview (05/30/2020): Positive 05/07/2020 Hospitalized from 05/18 - 05/23 for pneumonia. Assessment & Plan (08/22/2020 10:36 PM CDT): Recheck CXR to determine full resolution of the COVID pneumonia Assessment & Plan (06/04/2020 9:40 PM IT TELECOM TECHNICIAN): 05/07/2020 - positive. Hospitalized 05/18 - 05/23 for pneumonia Atrial tachycardia 03/13/2020 Assessment & Plan (06/04/2020 9:38 PM IT TELECOM TECHNICIAN): bp has been low since hospitalization. Holding the lisinopril and still low. Will decrease the atenolol to 25mg daily and monitor closely as uses for tachy. Mixed hyperlipidemia 01/06/2020 Assessment & Plan (04/03/2024 10:17 PM IT TELECOM TECHNICIAN): Encouraged patient to follow low fat/low chol diet like the Mediterranean diet. Increase good fats in the diet. Increase exercise. Monitor labs as needed. Continue Zetia Assessment & Plan (04/12/2023 10:50 PM IT TELECOM TECHNICIAN): Encouraged patient to follow low fat/low chol diet like the Mediterranean diet. Increase good fats in the diet. Increase exercise. Monitor labs as needed. Continue Zetia Assessment & Plan (03/16/2023 4:48 PM IT TELECOM TECHNICIAN): LDL 91 in February 2023. Zetia 10 mg daily. Assessment & Plan (05/04/2022 10:24 AM IT TELECOM TECHNICIAN): Encouraged patient to follow low fat/low chol diet like the Mediterranean diet. Increase good fats in the diet. Increase exercise. Monitor labs as needed. LDL is still very high at 218. She doesn't want to start a statin. She is more interested in understanding the subunits of the lipids to make a decision IF she needs medication. Recommended seeing Cardio or Lipid specialist to discuss further. Prefers Dr. Varghese at [facility] Will make referral. Assessment & Plan (03/01/2022 7:27 PM IT TELECOM TECHNICIAN): Insert hyperlipidemia patient is still not interested in a statin. Will recheck labs again. Encouraged patient to follow low fat/low chol diet like the Mediterranean diet. Increase good fats in the diet. Increase exercise. Monitor labs as needed. Assessment & Plan (08/26/2021 10:12 AM CDT): Encouraged patient to follow low fat/low chol diet like the Mediterranean diet. Increase good fats in the diet. Increase exercise. Monitor labs as needed. Patient is wanting to manage with diet control. Due to recheck labs as the LDL has been very high and she is declining statin treatment Assessment & Plan (02/27/2021 11:33 PM IT TELECOM TECHNICIAN): Encouraged patient to follow fat/low chol diet like the Mediterranean diet. Increase good fats in the diet. Increase exercise. Monitor labs as needed. LDL is high. Patient is still not wanting to start a statin. She wants to work on behavioral changes in dietary changes. Will recheck labs in 4-6 months. Reassess starting statin at that time if appropriate. Reviewed with patient the increased risk as that LDL increases above 150 as it it becomes an independent risk factor for cardiovascular events Assessment & Plan (08/22/2020 10:36 PM CDT): Encouraged patient to follow fat/low chol diet like the Mediterranean diet. Increase good fats in the diet. Increase exercise. Monitor labs as needed. Assessment & Plan (02/26/2020 4:03 PM IT TELECOM TECHNICIAN): Encouraged patient to follow fat/low chol diet like the Mediterranean diet. Increase good fats in the diet. Increase exercise. Monitor labs as needed. Patient doesn't want to consider statin at this point. Reviewed the risks/benefits of statins Assessment & Plan (01/06/2020 9:58 PM CDT): Encouraged patient to continue low fat/low chol diet. Continue exercise. Increase good fats in the diet. Monitor labs as needed. Check labs Lumbar back pain 01/06/2020 Assessment & Plan (01/06/2020 10:00 PM CDT): Encouraged NSAIDS (if able to safely tolerate) or Tylenol. Topical preparations like Lidocaine patches, Biofreeze, ICYHOT etc as needed. Heat, stretching Avoid long periods of sitting/laying. Encouraged PT. Followup if has any problems controlling bowels or bladder or if sxs worsen. History of breast cancer 01/18/2019 Assessment & Plan (01/06/2020 9:56 PM CDT): Continue per ONC Postmenopausal bleeding 11/08/2018 Overview (11/08/2018): Added automatically from request for surgery [id number] Diplopia 03/16/2018 Assessment & Plan (03/16/2018 12:45 PM IT TELECOM TECHNICIAN): This may be related to ocular migraine although it was not clear cut. Her neurologic examination is reassuring. Given her history of cerebral aneurysm I recommend that we obtain an MRI as well as carotid Dopplers. She will follow up with her primary care physician has if this is recurrent. I recommended 81 mg aspirin in the interim. Cervical high risk HPV (human papillomavirus) te st positive 02/24/2018 Encounter for follow-up surveillance of breast c ancer 02/09/2018 Scleritis and episcleritis of left eye 8 Assessment & Plan (10/06/2022 10:56 AM CDT): Currently on low-dose (10 mg) prednisone daily. We will be changing to 5 mg a day for a week and then stopping its use altogether. Scleritis appears to be significantly improved. Assessment & Plan (09/29/2022 12:28 PM CDT): Has a recurrence of the scleritis in the right eye this time. We will seek Dr. Martinez advice regarding treatment as she managed that episode in the left in 2018. Assessment & Plan (12/03/2017 5:34 PM CDT): I will place her on low-dose prednisone while awaiting her lab results and set her up with ophthalmologic consultation High risk medication use 01/30/2016 Assessment & Plan (09/20/2020 2:46 PM CDT): Monitoring laboratories reviewed it she will continue to have these performed on a quarterly basis Rheumatoid arthritis with negative rheumatoid fa ctor 07/24/2015 Assessment & Plan (04/12/2023 10:48 PM IT TELECOM TECHNICIAN): Continue per Rheumatology. She is currently on methotrexate sulfasalazine and folic acid Assessment & Plan (09/25/2022 4:16 PM CDT): Currently her inflammatory arthritis is well controlled and given her ocular disease in the setting of well controlled disease for 2 years, I recommend a trial of discontinuing hydroxychloroquine to see if it is still actively contributing to her symptoms. Assessment & Plan (03/01/2022 7:27 PM IT TELECOM TECHNICIAN): Continue per Rheumatology. Continue with Plaquenil methotrexate and sulfasalazine Assessment & Plan (08/26/2021 10:12 AM CDT): Continue per rheumatoid Assessment & Plan (02/27/2021 11:32 PM IT TELECOM TECHNICIAN): Continue per Rheumatology Assessment & Plan (09/20/2020 2:45 PM CDT): Overall her disease activity is improved but she did have to resume sulfasalazine to regain control of her articular disease. She continues to have some difficulty post COVID with cardiopulmonary issues with tachycardia and dyspnea. She self reports that she had a chest x-ray that showed hyperinflation but pulse oximetry at home has been excellent. Her monitoring laboratories on her current regimen show no systemic inflammation and her CBC and liver function tests are stable. She has not received COVID vaccination yet since she had the disease and I have discussed with her that when she does receive the vaccine that I would recommend holding methotrexate for a minimum of 1 week prior to the vaccine and then holding it again for 1 week after each vaccine. I have encouraged her to follow through on participation in the vaccine research study which will give us specific data of her response. Assessment & Plan (06/04/2020 9:39 PM IT TELECOM TECHNICIAN): Continue per Rheum. Monitor sxs. May flair due to medication holiday Assessment & Plan (03/21/2020 9:36 AM IT TELECOM TECHNICIAN): Today she presents with low disease activity and has had no active episodes of scleritis in 2 years. We will trial discontinuing sulfasalazine altogether and maintain her on 200 mg of hydroxychloroquine plus reduced dose of methotrexate 15 mg weekly and reassess a Vectra panel in 2 weeks. We discussed the current status of COVID -19 and vaccination. She will be due for repeat monitoring laboratories in 3 months. We discussed that the scleritis if recurrent would require escalated immunosuppressive so again. We discussed the ophthalmologic complications of hydroxychloroquine and that monitoring with OCT was predictive. Assessment & Plan (01/06/2020 9:55 PM CDT): Continue per Rheumatology Assessment & Plan (08/31/2019 10:59 AM CDT): She reports stable disease. We will obtain monitoring labs as well as I have placed the orders for her oncologist as well since needs a different lab. She will advise if worsening eye disease and we reviewed best practice to minimize steroids. Assessment & Plan (02/28/2019 10:47 AM IT TELECOM TECHNICIAN): She is clinically she is doing very well on her triple DMARD therapy. She has some situational stressors at this time. I would like to reassess her hand films for progression of disease since her last films were performed 3 years ago. Today is the 1st time she has ever had foot symptoms of will obtain baseline foot films as well. On check monitoring laboratory tests today on triple DMARD with CBC, CMP and inflammatory markers. Assessment & Plan (08/16/2018 8:18 AM CDT): Low disease activity today on examination; we will give a trial of tapering methotrexate to 15 mg from 20 mg. She has had no subsequent scleritis. I personally read her bone densities in reviewed these with her as she has a significant family history of osteoporosis. We discussed since she has been in disease remission potentially trying to lower her maintenance therapy to see if there is any breakthrough. Standard monitoring laboratories are scheduled today. Assessment & Plan (03/16/2018 12:44 PM IT TELECOM TECHNICIAN): Clinically she has low disease activity today. We will obtain monitoring laboratories as well as an influenza vaccine Assessment & Plan (12/03/2017 5:33 PM CDT): Clinically this has been well controlled and we will reassess inflammatory markers and monitoring laboratories. However the scleritis is likely an extra-articular feature. We will check an HLA B27 since she is seronegative. I would like for her to see 1 of our ophthalmologists. Given the severity of her pain, I recommend that she start on 10 mg of prednisone for the next week and then taper to 5 mg if she has complete symptom relief at the end of that week. Headache 01/25/2015 Assessment & Plan (04/12/2023 10:50 PM IT TELECOM TECHNICIAN): Patient consulted with Dr. Carpio neurologist in [place] for her headaches. He is offered multiple options for headache treatment but she still feels like the Fioricet is what works best for her. She would like a refill. 10. Sent Malignant neoplasm of centra l portion of right breast in female, estrogen receptor positive 10/27/2014 Cancer Staging:Clinical stage from 10/27/2014:Stage IA(T1, N0, M0) - Signed by Jo-Ann Morrow, PhD on 10/25/2018 Pathologic stage from 11/16/2014:Stage IA(T1c, N0, cM0) - Signed by Jo-Ann Morrow, PhD on 10/25/2018 Migraine with aura 08/20/2011 Assessment & Plan (03/01/2022 7:26 PM IT TELECOM TECHNICIAN): Patient experiences migraines. Seems to trigger with weather changes. Requests a refill of the Fioricet with codeine as it seems to help. Will send short supply to pharmacy. Disorder of binocular movement 06/10/2011 Visual discomfort 06/10/2011 Cerebral arterial aneurysm 10/24/2010 Assessment & Plan (03/01/2022 7:26 PM IT TELECOM TECHNICIAN): Continue monitor by MRA. Per patient there has been some change Following with Dr. Moss Await recommendation Bronchiolitis Current Oncology Plans No current plan information found. Past Plans No past plan information found. Radiation Treatments * No radiation treatments are documented for this patient in [facility]. Treatments may have been administered in another system. Lifetime Dose Tracking * Chemical Lifetime Dose Automatic Entry Manual Entr y Fluoro Time 63.4 minutes 63.4 minutes 0 minutes Air kerma at the reference point (Ka,r) 4,151 mGy 4 ,151 mGy 0 mGy DLP 1,802 mGycm 1,802 mGycm 0 mGycm Resolved Problems Problem Noted Date Diagnosed Date Resolved Date BMI 24.0-24.9, adult 04/22/2022 023 Assessment & Plan (04/22/2022 1:06 PM IT TELECOM TECHNICIAN): Weight/BMI is in healthy range. Continue healthy lifestyle to maintain. Snoring 03/20/2022 06/19/2022 Assessment & Plan (03/20/2022 12:01 PM IT TELECOM TECHNICIAN): I have ordered in-home nocturnal polysomnogram per the patient's insurance. The patient would like to hold off on an in-lab PSG with MSLT at this time. Flu vaccine need 02/28/2022 04/12/2023 Assessment & Plan (03/01/2022 7:28 PM IT TELECOM TECHNICIAN): Flu vaccine updated in the office today Need for Tdap vaccination 02/28/2022 Assessment & Plan (03/01/2022 7:28 PM IT TELECOM TECHNICIAN): Tdap updated in the office today Stress 02/28/2022 03/01/2022 Daytime sleepiness 02/28/2022 Assessment & Plan (03/01/2022 7:30 PM IT TELECOM TECHNICIAN): This is a significant, separately identifiable problem that was evaluated and managed on the same day as the wellness exam Patient has been noticed her decrease in her breathing as well as stopping breathing and some gasping while sleeping. She admits to sometimes having daytime sleepiness. Has never had a sleep study for evaluation of sleep apnea. Willing to have evaluation. Will make referral and await recommendations BMI 24.0-24.9, adult 08/26/2021 023 Assessment & Plan (03/01/2022 7:28 PM IT TELECOM TECHNICIAN): Weight/BMI is in healthy range. Continue healthy lifestyle to maintain. Assessment & Plan (08/26/2021 9:18 AM CDT): Weight/BMI is in healthy range. Continue healthy lifestyle to maintain. Need for Tdap vaccination 08/26/2021 BMI 24.0-24.9, adult 06/14/2021 022 Assessment & Plan (06/14/2021 8:18 AM IT TELECOM TECHNICIAN): Weight/BMI is in healthy range. Continue healthy lifestyle to maintain. Annual physical exam 02/27/2021 022 Assessment & Plan (02/27/2021 11:34 PM IT TELECOM TECHNICIAN): Encouraged healthy lifestyle, good nutrition and exercise. Encouraged Calcium and Vitamin D and weight bearing exercise for bone health. Reviewed immunizations Reviewed age appropirate screenings. Need for influenza vaccination 02/27/2021 07/05/2021 Assessment & Plan (02/27/2021 11:34 PM IT TELECOM TECHNICIAN): Flu vaccine updated in office today. BMI 25.0-25.9,adult 02/26/2021 06/15/19 Assessment & Plan (02/26/2021 9:42 AM IT TELECOM TECHNICIAN): Weight/BMI is in healthy range. Continue healthy lifestyle to maintain. BMI 24.0-24.9, adult 08/22/2020 021 Assessment & Plan (08/22/2020 11:02 AM CDT): Weight/BMI is in healthy range. Continue healthy lifestyle to maintain. BMI 23.0-23.9, adult 06/04/2020 021 Assessment & Plan (06/04/2020 9:39 PM IT TELECOM TECHNICIAN): Weight/BMI is in healthy range. Continue healthy lifestyle to maintain. Pneumonia due to COVID-19 virus 06/04/2020 08/26/2021 Assessment & Plan (06/11/2020 11:24 AM IT TELECOM TECHNICIAN): Patient directed to er for further evaluation and treatment. to drive. Assessment & Plan (06/04/2020 9:37 PM IT TELECOM TECHNICIAN): Recovering. Recommend rechecking Chest Xray in 1-2 week for resolution. She is to followup immediately for increased sxs. Pneumonia due to infectious organism 05/30/2020 06/04/2020 Fever 05/12/2020 03/01/2022 Assessment & Plan (06/11/2020 11:24 AM IT TELECOM TECHNICIAN): Patient directed to er for further evaluation and treatment. to drive. Assessment & Plan (05/12/2020 9:37 PM IT TELECOM TECHNICIAN): Patient to presume positive COVID until results are available and self isolate for 10 days from the onset of sxs. Check COVID test thru [facility] collection site in [place]. Treat sxs with Tylenol, Cough/cold medication otc and add VitD 5,000IU daily and Zinc 50mg daily. Monitor sxs and call or go to the ER if has any of the following: --trouble breathing --persistent pain or pressure in the chest --new confusion --inability to wake or stay awake -- bluish lips or face If patient has been in close contact with anyone, they should be notified and instructed to quarantine per CDC guidelines for 14 days after last exposure to the positive COVID patient and monitor closely for symptoms of COVID. If they appear they should be tested. Close contact includes: --You were within 6 feet of someone who has COVID-19 for a total of 15 minutes or more --You provided care at home to someone who is sick with COVID-19 --You had direct physical contact with the person (hugged or kissed them) --You shared eating or drinking utensils --They sneezed, coughed, or somehow got respiratory droplets on you Additional Steps to avoid exposure/spread include: ?? Avoid crowded places where close contact with others may occur, such as shopping centers, movie theaters, dormitories, or stadiums. ?? Avoid transit where close contact with others may occur, such as planes, trains, and buses. ?? Maintain a distance of approximately 6 feet from other people whenever possible (spacing out if you are in a line, leaving 2 seats in between others at a waiting room when possible). ?? Wash your hands with soap and water often. If needed, use a hand bowling ball grader and marker that contains at least 60% alcohol. ?? Clean and disinfect frequently touched surfaces such as tables, doorknobs, countertops, etc daily. ?? Avoid touching your eyes, nose, and mouth when possible. Need for shingles vaccine 02/26/2020 Assessment & Plan (02/26/2020 4:02 PM IT TELECOM TECHNICIAN): Shingrix #1 given in office today Stress 02/26/2020 08/26/2021 Assessment & Plan (02/27/2021 11:34 PM IT TELECOM TECHNICIAN): Stable with Prozac 20 mg Assessment & Plan (02/26/2020 4:05 PM IT TELECOM TECHNICIAN): Paxil was increased to 30mg and doing well. Continue to monitor. Annual physical exam 01/06/2020 021 Assessment & Plan (02/26/2020 4:00 PM IT TELECOM TECHNICIAN): Encouraged healthy lifestyle, good nutrition and exercise. Encouraged Calcium and Vitamin D and weight bearing exercise for bone health. Reviewed immunizations Reviewed age appropirate screenings. Assessment & Plan (01/06/2020 9:55 PM CDT): Encouraged healthy lifestyle, good nutrition and exercise. Encouraged Calcium and Vitamin D and weight bearing exercise for bone health. Reviewed immunizations Reviewed age appropirate screenings. Diabetes mellitus screening 01/06/2020 02/26/2020 Assessment & Plan (01/06/2020 9:58 PM CDT): Check labs Colon cancer screening 01/06/202008/26 Assessment & Plan (02/26/2020 4:01 PM IT TELECOM TECHNICIAN): Scheduled to update Assessment & Plan (01/06/2020 9:58 PM CDT): Refer to GI for colon cancer screening Other fatigue 01/06/2020 06/04/2020 Assessment & Plan (01/06/2020 9:59 PM CDT): Probably multifactorial. Check labs and followup to re-evaluate Need for immunization against influenza 01/06/2020 08/26/2021 Assessment & Plan (01/06/2020 9:59 PM CDT): Updated in office Chronic right shoulder pain 01/06/2020 08/26/2021 Assessment & Plan (01/06/2020 10:00 PM CDT): Persistent pain in shoulder and back/hips. Will send to PT and see if helps. May also consider Orthp/pain for injections if her Rheum doesn't do it. BMI 25.0-25.9,adult 01/05/2020 06/04/19 Assessment & Plan (02/26/2020 4:00 PM IT TELECOM TECHNICIAN): Weight/BMI is in healthy range. Continue healthy lifestyle to maintain. Assessment & Plan (01/05/2020 10:37 AM CDT): Continue healthy lifestyle to continue healthy weight Encounter to establish care 02/24/2018 01/06/2020 Estrogen receptor positive status (ER+) 11/29/2014 07/08/2018
--- OUTSIDE RECORDS SUMMARY | 2024-04-24 05:47 | XMS_ITS | Encounter Summary ---
Author Organization [facility] Address [address] [place] [address] Phone Care Team Providers Care Designer Architect Name Role Phone Erica Rodrigues MD Unavailable Gasper Kaba MD Unavailable Brandy Aguirre PARTS DATA WRITER Unavailable [phone] Jo-Ann Morrow PhD Unavailable Christina Louis OVERHEAD CLEANER MAINTAINER Unavailable [phone] Sylvia Dawson Primary Care Provider [phone] Jessy Adame MD Unavailable Harpal Carpio MD Unavailable Rossana Church DNP Unavailable [phone] Zahida Kaplan Unavailable Fadi Cook Unavailable Harpal De León MD Unavailable [phone] Valorie Young MD Unavailable [phone] Patricia Martinez MD Unavailable Reason for Visit * Reason Comments SPK Encounter Details Date Type Department Care Team (Late st Contact Info) Description 09/21/2023 9:00 AM CDT Office Visit [facility] Ophthalmology [facility] [address] [place] [address], [place] [address] Corinna Elmore MD PhD [address] [place] [address] 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 Mild flares with topical pred/PO NSAIDs, more severe flares with prednisone Exam today, quiet Has been using prednsiolone bid per Dr. 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 Does not like durezol (blurs vision), switchedto pred daily 06/14: other than few PEE, corneas look great. Decrease to pred every other day x1 month, then discontinue 07/25: corneas clear off drops x2 weeks 09/20: corneas staying clear off drops RV 6 months I have seen, examined, and discussed the patient with the resident/fellow. I have also discussed risks and benefits of all medications started or continued during this visit. I have made changes to the exam and assessment and plan where appropriate. Corinna Elmore MD PhD 09/21/2023 10:10 AM documented in this encounter Plan of Treatment Not on file documented as of this encounter Visit Diagnoses Diagnosis Scleritis and episcleritis of left eye- Primary documented in this encounter Eye Exam Visual Acuity (Snellen - Linear) Right eye Left eye Dist sc 20/25 -1 20/25 -2 Tonometry (Tonopen, 9:28 AM) Right eye Left eye Pressure 13 13 Pupils Dark Light Shape React APD Right eye 4 3.5 Round Minimal None Left eye 4 3.5 Round Minimal None Neuro/Psych Oriented x3: Yes Mood/Affect: Normal External Exam Right eye Left eye External Normal Normal Slit Lamp Exam Right eye Left eye Lids/Lashes Normal Normal Conjunctiva/Sclera White and quiet White and gael et Cornea Clear Clear Anterior Chamber Deep and quiet Deep and quiet Iris Round and reactive Round and erasmo ctive Lens Posterior chamber in traocular lens, Open posterior capsule Posterior chamber intraocular lens, Open posterior capsule Anterior Vitreous s/p ppV s/p PPV Care Teams Designer Architect Relationship Specialty Start Date End Date Sylvia Dawson PA [address] [place], [place] [id number] PCP - General Internal Medicine 01/05/20 Erica Rodrigues MD [address] [place] [address] Radiation Oncologist Radiation Oncology 10/25/18 Gasper Kaba MD [address] [place] [address] Surgeon Surgical Oncology 10/25/18 Brandy Aguirre, PARTS DATA WRITER [address] [place] [address] Nurse Practitioner Certified Clinical Nurse Specialist 10/25/18 Jo-Ann Morrow, PhD [address] [place] [address] Nurse Practitioner Radiation Oncology 10/25/18 Christina Louis, OVERHEAD CLEANER MAINTAINER [address] [facility] [address] [place] [address] Nurse Practitioner Medical Oncology 10/25/18 Jessy Adame MD [address] [facility] DEPT OPHTHALMOLOGY, [address] [place] [address] Consulting Physician Retina Ophthalmology 04/15/23 Harpal Carpio MD [address] [place] [address] Neurologist Neurology 04/15/23 Rossana Church DNP [address] [place] [address] Nurse Practitioner Nurse Practitioner 04/15/23 Zahida Kaplan PA [address] DIV NEUROLOGY [facility], [facility] [address] [place] [address] Physician Crossbar Frame Wirer Physician Crossbar Frame Wirer 04/15/23 Fadi Cook PA [address] DIV NEUROLOGY SLEEP MED, [facility] [address] [place] [address] Physician Crossbar Frame Wirer Sleep Medicine 04/15/23 Harpal De León MD [address] [place] [address] Nuclear Plant Equipment Operator Cardiology 04/15/23 Valorie Young MD [address] [facility] [address] [place] [address] Nuclear Plant Equipment Operator Cardiology 04/15/23 Patricia Martinez MD [address] [facility] [address] DIV IM RHEUMATOLOGY, [facility] [address] [place] [address] Consulting Physician Rheumatology 04/15/23 documented as of this encounter
--- OUTSIDE RECORDS SUMMARY | 2024-04-24 05:47 | XMS_ITS | Encounter Summary ---
Author Organization [facility] Address [address] [place] [address] Phone Care Team Providers Care Heavy Repairer Name Role Phone Erica Rodrigues MD Unavailable Gasper aKba MD Unavailable Brandy Aguirre RADIOLOGY TECHNICIAN Unavailable Jo-Ann Morrow PhD Unavailable [phone] Christina Louis SHIPPING TEAM LEADER Unavailable [phone] Sylvia Dawson Primary Care Provider [phone] Jessy Adame MD Unavailable Harpal Carpio MD Unavailable Rossana Church DNP Unavailable [phone] Zahida Kaplan Unavailable Fadi Cook Unavailable Harpal De León MD Unavailable [phone] Valorie Young MD Unavailable [phone] Patricia Martinez MD Unavailable [phone] Reason for Visit * Reason Comments Follow-up Migraine Encounter Details Date Type Department Care Team (Late st Contact Info) Description 03/08/2024 9:30 AM PIPELINE SUPERINTENDENT Office Visit [facility] [address] [place] [address] 6th [address] [place] [address] Zahida Kaplan, KAREN [address] [place] [address] Migraine with aura and without status migrainosus, not intractable (Primary Dx) Social History Tobacco Use Types [...] on file Legal Sex Female 3:42 AM PIPELINE SUPERINTENDENT Gender Identity Not on file Sexual Orientation Not on file 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 Not on file Not on file Not on file documented as of this encounter Last Filed Vital Signs Vital Sign Reading Time Taken Comments Blood Pressure 126/86 03/08/2024 9:25 AM PIPELINE SUPERINTENDENT Pulse 67 03/08/2024 9:25 AM PIPELINE SUPERINTENDENT Temperature 36.5 ??C (97.7 ??F) 03/08/2024 9:25 AM CS T Respiratory Rate - - Oxygen Saturation 96% 03/08/2024 9:25 AM PIPELINE SUPERINTENDENT Inhaled Oxygen Concentration - - Weight 68.3 kg (150 lb 8 oz) 03/08/2024 9:25 AM PIPELINE SUPERINTENDENT Height 160 cm (5' 3 ) 03/08/2024 9:25 AM PIPELINE SUPERINTENDENT Body Mass Index 26.66 03/08/2024 9:25 AM PIPELINE SUPERINTENDENT documented in this encounter Patient Instructions * Patient Instructions* Zahida Kaplan PA - 03/08/2024 9:30 AM PIPELINE SUPERINTENDENT Options for migraine prevention: Aimovig, Emgality, Ajovy (monthly injection) LINE SUPERINTENDENT LINE SUPERINTENDENT documented in this encounter Progress Notes * Zahida Kaplan PA - 03/08/2024 9:30 AM CST Patient Name: YESIKA MANZANARES Medical Record Number (MRN): [id number] Date of (): 1960 Encounter Date: 03/08/2024 Chief Complaint Yesika Manzanares is a 63 y.o. 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 HPI She was last seen in August for an IOV. She reported migraines dating back to age 19. She reported 0-6migraine days/mo. She declined preventative treatment. Zavzpret samples and Promethazine were offered for abortive treatment. Since then, she was having only 1 or 2 headaches per month. They have been left sided with pressure behind her left eye. They can last 1-2 days. She has been experiencing aura more frequently, up to once per month. They are somewhat different than her typical aura, as she feels she is about to go into a full blown visual migraine. She describes dark patterns for 5-10 minutes, then feels not right for 10-15 minutes. Her full blown migraine is described as shimmery lights, which can sometimes follow these symptoms. It is assoc with headache and photophobia. She contacted the office last month when she experienced multiple headaches over a 10 day span. She experienced stabbing pain behind her left eye, which lasted only seconds at atime. This was a new headache type for her. She also experienced a few of her typical migraine headaches with left sided throbbing pain with pressure behind the left eye. They last 1-2 days. She tried Zavzpret and it was not effective, but she suspects she was probably too far in. She used Nurtecfor a recent headache and it was effective. 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 Past meds tried: Metoprolol - not well tolerated Verapamil Gabapentin Fioricet w codeine Ubrelvy - not beneficial Nurtec - minimal benefit Zavzpret Imitrex injection - not well tolerated (Triptans are contraindicated with history of carotid dissection and aneurysm) She tends to be very sensitive to medications. She takes Atenolol for sinus tachycardia and Lisinopril for HTN. She takes Fluoxetine 10mg daily for hot flashes. Copied forward from previous note: She reports a longstanding hx of migraine dating back to age 19. Historically, they were associatedwith menses and ovulation. They were severe left sided headaches with nausea. She recalls migraineswere much worse when she tried taking OCP for 6 months. Her migraines improved in her late 40s. Sarahthen began experiencing severe headaches with barometric pressure changes. They are more frequent in the spring and fall, and could occur up to 4-6x/mo in a bad month in spring/fall. She could go weeks or months without one in winter or summer. They typically occur technical services librarian and wake her fromsleep. They are frontal severe throbbing pain. She takes an otc pain reliever and goes back to sleep. She then has lingering headache, photo/phonophobia and nausea the rest of the day. In 2008, she began experiencing migraine with aura. They start with scintillating scotoma, which lasts 20 minutes, and is followed by headache, which may be unilateral or bilateral. The headache is not always severe with these migraines. These do not occur as often, one every few months or less. She was evaluated by Dr Harpal Carpio in 03/2023 while waiting for this appt. She was prescribed Nurtec prn. This has been of minimal benefit, as she still has the headache the rest of the day. If headache is severe, she will then take Fioricet with codeine that evening. She is retired now and is able to rest if needed. She would prefer not to take a daily preventative medication, but is open totrying a different abortive medication if there is something that might be more effective than Nurtec. She takes Atenolol for sinus tachycardia and Lisinopril for HTN. She takes Fluoxetine 10mg daily for hot flashes. She is followed by Dr Moss after experiencing spontaneous bilateral carotid dissections in 2021. There was an incidentally found anterior communicating artery aneurysm, s/p WEB occlusion (2022). Shehas been evaluated by Genetics for fibromuscular dysplasia, EDS, and connective tissue disorders. She notes genetic testing thus far has been negative, more testing is being ordered. She was evaluated by Neuro-Ophthalmology in April for anisocoria and 1 episode of vision loss OD>OS on 03/06/23, which lasted 10-15 minutes. Anisocoria resolved and was felt to most likely be secondary to Durezol. MRI brain orbits with and without contrast was ordered, and was completed on 06/08/22, and was unrevealing. Her cerebral angiogram was performed in January 2023, detailed results below. Dr. Moss recommendedfollow-up in 1 year with noninvasive imaging. 06/08/13 MRI brain orbits w/wo: No MRI explanation for the patient's recent symptoms. 05/21/23 CTA head neck w/wo: 1. 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 There is a CTA visible collection of contrast within the marker recess consistent with WEB occlusion scale B. 2. Bilateral cervical internal carotid artery stents. 01/28/2023 Cerebral angiogram: 1. Satisfactory occlusion of the anterior communicating artery aneurysm treated with a WEB device and an angiographically visible collection of contrast within the marker recess consistent with WEB occlusion scale B. 2. Interval expansion of the proximal right internal carotid artery luminal diameter with patent overlapping stents within the right internal carotid artery. No in-stent stenosis identified. 3. Short segment occlusion of the right radial artery identified on ultrasound. The procedure was performed using right femoral approach. 02/08/22 MRI brain, MRA head w/wo: 1. No acute intracranial process. 2. Superiorly directed anterior communicating artery aneurysm, measuring 5 mm, unchanged. Allergies Allergen Reactions Adhesive Hives Paper tape OK Cyclizine Other (See comments) and Hallucinations Marezine about 1982 Reaction: Urinary retention Current Outpatient Medications on File Prior to Visit Medication Sig Dispense Refill acetaminophen (TYLENOL) 325 mg tablet Take 2 tablets (650 mg total) by mouth every 6 (six) hours asneeded for pain Do not exceed 4000 mg of acetaminophen in a 24 hour period. (Patient taking differently: Take 2 tablets (650 mg total) by mouth every 6 (six) hours as needed for pain Do not exceed 4000 mg of acetaminophen in a 24 hour period.) aspirin 81 mg enteric coated tablet Take 1 tablet (81 mg total) by mouth daily (Patient taking differently: Take 1 tablet (81 mg total) by mouth every morning) 90 tablet 3 atenoloL (TENORMIN) 25 mg tablet TAKE 1 TABLET(25 MG) BY MOUTH DAILY 90 tablet 2 arctzudzpi-qybwpppyuzcre-vdxnhsyj-codeine (FIORICET WITH CODEINE) 91-167-72-30 mg per capsule Take 1 capsule by mouth every 6 (six) hours as needed for headaches 10 capsule 0 ezetimibe (ZETIA) 10 mg tablet Take 1 tablet (10 mg total) by mouth daily famotidine-Ca carb-mag hydrox (PEPCID COMPLETE) 10-800-165 mg chewable tablet Take 1 tablet by mouth daily as needed for heartburn FLUoxetine 10 mg capsule TAKE 1 CAPSULE(10 MG) BY MOUTH DAILY 90 capsule 1 folic acid (FOLVITE) 1 mg tablet TAKE 2 TABLETS(2000 MCG) BY MOUTH DAILY 180 tablet 3 hydroCHLOROthiazide (HYDRODIURIL) 12.5 mg tablet TAKE 1 TABLET(12.5 MG) BY MOUTH DAILY 90 tablet 1 lisinopriL (PRINIVIL,ZESTRIL) 40 mg tablet TAKE 1 TABLET(40 MG) BY MOUTH DAILY 90 tablet 4 magnesium gluconate 200 mg tablet Take 1 tablet (200 mg total) by mouth as needed sleep meclizine (ANTIVERT) 12.5 mg tablet Take 1 tablet (12.5 mg total) by mouth 3 (three) times a day asneeded for dizziness 20 tablet 0 methotrexate 2.5 mg tablet TAKE 8 TABLETS BY MOUTH WEEKLY ON THURSDAY 96 tablet 2 methylPREDNISolone (MEDROL DOSEPACK) 4 mg Dosepack follow package directions 1 packet 0 multivitamin with minerals tablet Take 1 tablet by mouth every morning Nurtec ODT tablet,disintegrating Take 1 tablet (75 mg total) by mouth daily as needed (migraine) 8 tablet 2 sulfaSALAzine EN (AZULFIDINE EN) 500 mg EC tablet TAKE 2 TABLETS BY MOUTH TWICE DAILY 360 tablet 0 valACYclovir (VALTREX) 500 mg tablet Take 1 tablet (500 mg total) by mouth daily 90 tablet 1 vit E-N-tjxpwb-zinc-lutein (PreserVision Lutein) 226-90-0.8-5 mg capsule Take 1 tablet by mouth 2 (two) times a day zolpidem (AMBIEN) 5 mg tablet Take 1 tablet (5 mg total) by mouth nightly as needed for sleep 30 tablet 2 gabapentin (NEURONTIN) 100 mg capsule Take 1 capsule (100 mg total) by mouth 2 (two) times a day (Patient not taking: Reported on 03/08/2024) 60 capsule 1 No current facility-administered medications on file prior to visit. Patient Active Problem List Diagnosis Cerebral arterial aneurysm Migraine with aura High risk medication use Rheumatoid arthritis with negative rheumatoid factor (HCC) Scleritis and episcleritis of left eye Encounter for follow-up surveillance of breast cancer Cervical high risk HPV (human papillomavirus) test positive Diplopia Malignant neoplasm of central portion of right breast in female, estrogen receptor positive (HCC) Disorder of binocular movement Headache Visual discomfort Postmenopausal bleeding History of breast cancer Mixed hyperlipidemia Lumbar back pain Atrial tachycardia (HCC) History of COVID-19 Hypertension, essential Tachycardia Cough Fatigue Moderate episode of recurrent major depressive disorder (HCC) Breast mass Pain in both feet Cystoid macular edema of both eyes PCO (posterior capsule opacification), bilateral Pattern dystrophy of macula Bronchiolitis Annual physical exam Recurrent cold sores Hyperglycemia Aneurysm (CMS/HCC) (HCC) History of right common carotid artery stent placement Chronic tension-type headache, not intractable Brain aneurysm Obstructive sleep apnea Amaurosis fugax of right eye BMI 25.0-25.9,adult Unequal pupils Need for immunization against influenza Punctate epithelial keratopathy of both eyes Dissection of carotid artery (CMS/HCC) (HCC) Primary insomnia Past Medical History: Diagnosis Date Autoimmune disease (CMS/HCC) (HCC) Benign left breast lump 06/2002 biopsy showed fibrosis and hyperplasia Brain aneurysm Followed by Dr. Chaudhari: Every 3 years Breast cancer (HCC) 2014 Invasive ductal carcinoma Cataract CME (cystoid macular edema), bilateral Depression Elevated cholesterol History of chemotherapy 2015 Breast cancer History of radiation therapy 2015 Right breast Hypertension Migraine Motion sickness sometimes on [place]vy roads Obstructive sleep apnea 06/19/2022 RA (rheumatoid arthritis) (HCC) Past Surgical History: Procedure Laterality Date ANGIO SELECTIVE CAROTID RADIOLOGY TECHNICIAN RIGHT Right 01/28/2023 ANGIO SELECTIVE INTERNAL CAROTID LEFT Left 03/12/2022 BREAST BIOPSY Left 2002 benign BREAST LUMPECTOMY Right 2014 Invasive ductal carcinoma CARDIAC PACEMAKER PLACEMENT 03/2023 Hypoglossal Nerve Stimulator - Inspire Device CEREBRAL ANEURYSM REPAIR 06/16/2022 COLONOSCOPY 03/06/2020 CYST REMOVAL 1998 thyroid ENDOMETRIAL ABLATION 02/2007 EYE SURGERY Bilateral 2021 cataract HYSTEROSCOPY PORT PLACEMENT CHEST >5 YEARS N/A 01/17/2015 PORT REMOVAL N/A 04/10/2015 RHINOPLASTY 1985 THYROIDECTOMY, PARTIAL Left 1997 Dr. Demetris Aguilar TONSILLECTOMY 1983 TUBAL LIGATION 02/2007 VITRECTOMY Right 09/23/2022 for CME Family History Problem Relation Age of Onset Hypertension Mother Anemia Mother Heart disease Mother Heart failure Mother Aortic aneurysm Mother Alzheimer's disease Father Depression Father Hypertension Father Memory loss Father Lung cancer Father Peripheral vascular disease Father Cancer Father Dementia Father Depression Sister Hypertension Sister Arthritis Sister Osteoporosis Sister No Known Problems Sister Hypertension Sister Depression Brother Hypertension Brother Memory loss Maternal Grandmother Cancer Maternal Grandfather Depression Paternal Grandmother Stroke Paternal Grandmother Anesthesia problems Neg Hx Breast cancer Neg Hx Malig Hypertension Neg Hx Malig Hyperthermia Neg Hx Pseudochol deficiency Neg Hx Social History Tobacco Use Smoking status: Never Passive exposure: Never Smokeless tobacco: Never Substance and Sexual Activity Drug use: Not Currently Comment: 2 drinks per month Sexual activity: Defer Partners: Male control/protection: Post-menopausal, Tubal Ligation Alcohol Use: Not At Risk (02/24/2023) AUDIT-C Frequency of Alcohol Consumption: Monthly or less Average Number of Drinks: 1 or 2 Frequency of Binge Drinking: Never Vital Signs Vitals: 03/08/24 0925 BP: 126/86 BP Location: Left arm Patient Position: Sitting Pulse: 67 Temp: 36.5 ??C (97.7 ??F) SpO2: 96% Weight: 68.3 kg (150 lb 8 oz) Height: 160 cm (5' 3 ) Review of Systems Review of Systems Constitutional: Negative for fever, malaise/fatigue and weight loss. HENT: Negative for congestion, hearing loss and tinnitus. Eyes: Negative for blurred vision and double vision. Respiratory: Negative for cough, shortness of breath and wheezing. Cardiovascular: Positive for chest pain (costochondritis) and palpitations. Gastrointestinal: Negative for constipation, diarrhea, heartburn, nausea and vomiting. Genitourinary: Negative for frequency and urgency. Musculoskeletal: Negative for back pain, falls, joint pain, myalgias and neck pain. Skin: Negative for itching and rash. Neurological: Positive for headaches. Negative for dizziness, tingling, tremors, speech change, focal weakness, seizures, loss of consciousness and weakness. Endo/Heme/Allergies: Does not bruise/bleed easily. Psychiatric/Behavioral: Negative for depression, hallucinations, memory loss and substance abuse. The patient has insomnia. The patient is not nervous/anxious. Physical Exam Neurologic Exam She appeared well and in no apparent distress. She was very pleasant. She was A &O to person, place and date. She was able to follow simple and complex commands. Speech was clear and fluent. HEENT: normocephalic and atraumatic. No conjunctival injection. Oropharynx clear. Neurological exam: Cranial nerves II-XII intact: Visual guerrero were full. No ptosis, pupils were equal round and reactive to light, discs were sharp without pallor, extraocular movements intact, facial sensation intact, face symmetric, hearing intact, tongue midline, palate upgoing bilaterally, shoulder shrug and head turning intact. Strength full throughout. Tone was normal. There was no tremor at rest, with action or posture. Fine finger movements were equal bilaterally. There was no drift. Finger to nose was intact. Sensation was intact to light touch. Romberg negative. Patient was able tostand from seated position without assist. Gait was normal based and she could tandem walk. Assessment/Plan Diagnosis Plan 1. 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 [facility] and was reminded to treat early for best efficacy. Promethazine may be taken with Nurtec if needed. She was encouraged tokeep her follow-up with Ophthalmology for scleritis follow-up, to assure this is not contributing to the left sided headaches. She was also encouraged to follow-up with Neurosurgery to schedule her follow-up imaging. We discussed the option of adding Aimovig, Emgality, or Ajovy for migraine prevention. We discussed these medications in detail including mechanism of action, administration, efficacy, and potential side effects. She is not interested in adding anything at this time, but will consid er these in the future. All of her questions were answered and I think she has a good understandingof what we discussed. I spent a total of 38 [id number] minutes of which more than 50% of visit spent counseling and coordinating care. In addition to the time spent during the session with the patient, I spent 5 minutespreparing to see the patient, 2 minutes documenting clinical information and ordering tests and medications. Total time spend on encounter on the day of the visit: 45 minutes. Return in about 4 months (around 07/06/2024). Future Appointments Date Time Provider Department Center 03/24/2024 4:00 PM Patricia Martinez MD [facility] 5C [facility] Rheum 03/28/2024 9:15 AM Corinna Elmore MD PhD [facility] 6 OP 03/30/2024 7:30 PM SLEEP STUDY, [facility] UNLOAD LAB 40 NL 04/04/2024 9:45 AM [facility] [facility] [place] Main 04/04/2024 10:45 AM [facility]izz[facility] Green [facility] Bld A 05/03/2024 10:30 AM Harpal De León MD [facility] MRVL Specialty 05/31/2024 11:30 AM Eboni Burrows NP PCP FM EDW2 PC 06/17/2024 11:00 AM Ema Keyes MD OBGYN OB [facility] Specialty 07/07/2024 9:30 AM Zahida Kaplan PA GEN CTR 40 NL Thank you for allowing me to participate in the care of your patient. If you have any questions, feel free to contact me. Sincerely, KAREN Joyner LINE SUPERINTENDENT documented in this encounter Plan of Treatment Not on file documented as of this encounter Visit Diagnoses Diagnosis Migraine with aura and without status migrainosus, not intractable- Primary documented in this encounter Historical Medications * This list may reflect changes made after this encounter. ezetimibe (ZETIA) 10 mg tablet Take 1 tablet (10 mg total) by mouth daily 03/23/2024 added in this encounter Care Teams Heavy Repairer Relationship Specialty Start Date End Date Sylvia Dawson PA [address] [place] [address] PCP - General Internal Medicine 01/05/20 Erica Rodrigues MD [address] [facility] [address] [place] [address] Radiation Oncologist Radiation Oncology 10/25/18 Gasper Kaba MD [address] [facility] [address] [place] [address] Surgeon Surgical Oncology 10/25/18 Brandy Aguirre, RADIOLOGY TECHNICIAN [address] [facility] [address] [place] [address] Nurse Practitioner Certified Clinical Nurse Specialist 10/25/18 Jo-Ann Morrow, PhD [address] [facility] [address] [place] [address] Nurse Practitioner Radiation Oncology 10/25/18 Christina Louis NP [address] [place] [address] Nurse Practitioner Medical Oncology 10/25/18 Jessy Adame MD [address] [facility] [place] [address] Consulting Physician Retina Ophthalmology 04/15/23 Harpal Carpio MD [address] [place] [address] Neurologist Neurology 04/15/23 Rossana Church DNP [address] [place] [address] Nurse Practitioner Nurse Practitioner 04/15/23 Zahida Kaplan PA [address] DIV NEUROLOGY GENERAL, [facility] [address] [place] [address] Physician Appraiser Timber Physician Appraiser Timber 04/15/23 Fadi Cook PA [address] DIV NEUROLOGY SLEEP MED, [facility] [address] [place] [address] Physician Appraiser Timber Sleep Medicine 04/15/23 Harpal De León MD [address] [facility] [address] [place] [address] Operations Research Scientist Cardiology 04/15/23 Valorie Young MD [address] [facility] [address] [place] [address] Operations Research Scientist Cardiology 04/15/23 Patricia Martinez MD [address] DIV IM RHEUMATOLOGY, [facility] [address] [place] [address] Consulting Physician Rheumatology 04/15/23 documented as of this encounter
--- OUTSIDE RECORDS SUMMARY | 2024-04-24 05:47 | XMS_ITS | Encounter Summary ---
Author Organization [facility] [employer] of [facility] Address [address] [place] [address] Phone Care Team Providers Care Security Researcher Name Role Phone Erica Rodrigues MD Unavailable Gasper Kaba MD Unavailable Brandy Aguirre HEARING THERAPY TEACHER Unavailable Jo-Ann Morrow PhD Unavailable [phone] Christina Louis IN SERVICE EDUCATION TEACHER Unavailable [phone] Sylvia Dawson Primary Care Provider [phone] Jessy Adame MD Unavailable Harpal Carpio MD Unavailable Rossana Church DNP Unavailable Zahida Kaplan Unavailable Fadi Cook Unavailable Harpal De León MD Unavailable [phone] Valorie Young MD Unavailable Patricia Martinez MD Unavailable Reason for Visit * Reason Comments Migraine * Consultation (Routine) - Closed Specialty Diagnoses / Procedures Referred By Contac t Referred To Contact Neurology Diagnoses Chronic tension-type headache, not intractable Cerebral aneurysm, nonruptured Lzizie Green, IN SERVICE EDUCATION TEACHER [address] [place] [address] Phone: tel: fax: Fatimah Leal MD PhD [address] [place] [address] Phone: tel: fax: Referral ID Status Reason Start Date Expiration Date V isits Requested Visits Authorized [id number] Closed Specialty Services Required 10/10/2022 11/09/2023 1 1 Encounter Details Date Type Department Care Team (Late st Contact Info) Description 09/08/2023 11:00 AM CDT Office Visit [facility] General Neurology [address] 6[address] [place] [address] Zahida Kaplan PA [address] [place] [address] Intractable migraine without aura and without status migrainosus (Primary Dx); Migraine with aura and without status migrainosus, not intractable; Cerebral aneurysm, nonruptured Social History Tobacco Use Types Packs/Day Years Used Date Smoking Tobacco: Never Passive Smoke Exposure: Never Smokeless Tobacco: Never Tobacco Cessation:Counseling Given: Not Answered Alcohol Use Standard Drinks/Week Comments Yes 1 [...] on file 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 Gender Identity Not on file Sexual Orientation Not on file 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 Not on file Not on file Not on file documented as of this encounter Last Filed Vital Signs Vital Sign Reading Time Taken Comments Blood Pressure 137/81 09/08/2023 10:47 AM CDT Pulse 74 09/08/2023 10:47 AM CDT Temperature 36.2 ??C (97.1 ??F) 09/08/2023 10:47 AM C DT Respiratory Rate - - Oxygen Saturation 96% 09/08/2023 10:47 AM CDT Inhaled Oxygen Concentration - - Weight 66.9 kg (147 lb 8 oz) 09/08/2023 10:47 AM CDT Height 160 cm (5' 3 ) 09/08/2023 10:47 AM CDT Body Mass Index 26.13 09/08/2023 10:47 AM CDT documented in this encounter Patient Instructions * Patient Instructions* Zahida Kaplan PA - 09/08/2023 11:00 AM CDT Try Zavzpret nasal spray as needed for migraine. (This will replace Nurtec). Call if you would likea prescription. You may take Promethazine and Benadryl with Zavzpret or Nurtec. documented in this encounter Ordered Prescriptions Prescription Sig Dispense Quantity Refills Last Filled Start Date End Date promethazine (PHENERGAN) 12.5 mg tablet Take 1 tablet (12.5 mg total) by mouth every 6 (six) hours as needed (nausea/migr senia) 20 tablet 1 09/08/2023 10/08/2023 documented in this encounter Progress Notes * Zahida Kaplan PA - 09/08/2023 11:00 AM CDT Patient Name: YESIKA MANZANARES Medical Record Number (MRN): [id number] Date of (): 1960 Encounter Date: 09/08/2023 Chief Complaint Yesika Manzanares is a 63 y.o. 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 She was referred by Lizzie Green NP for neurology consult. HPI She reports a longstanding hx of migraine dating back to age 19. Historically, they were associatedwith menses and ovulation. They were severe left sided headaches with nausea. She recalls migraineswere much worse when she tried taking OCP for 6 months. Her migraines improved in her late 40s. Shethen began experiencing severe headaches with barometric pressure changes. They are more frequent in the spring and fall, and could occur up to 4-6x/mo in a bad month in spring/fall. She could go weeks or months without one when in winter or summer. They typically occur fish skinning machine feeder and wake herfrom sleep. They are frontal severe throbbing pain. She [...] recommendedfollow-up in 1 year with noninvasive imaging. Past meds tried: Metoprolol - not well tolerated Verapamil Ubrelvy - not beneficial Imitrex injection - not well tolerated (Triptans are contraindicated with history of carotid dissection and aneurysm) She tends to be very sensitive to medications. 06/08/13 MRI brain orbits w/wo: No MRI [...] measuring 5 mm, unchanged. Allergies Allergen Reactions ??? Adhesive Hives Paper tape OK ??? Cyclizine Other (See comments) and Hallucinations Marezine about 1982 Reaction: Urinary retention Current Outpatient Medications on File Prior to Visit Medication Sig Dispense Refill ??? acetaminophen (TYLENOL) 325 mg tablet Take 2 [...] of acetaminophen in a 24 hour period.) ??? aspirin 81 mg enteric coated tablet Take 1 tablet (81 mg total) by mouth daily (Patient taking differently: Take 1 tablet (81 mg total) by mouth every morning) 90 tablet 3 ??? mffknxlzkb-mlwpqpwaqszlh-vvjdzwqh-codeine (FIORICET WITH CODEINE) 08-336-10-30 mg per capsule Take 1 capsule by mouth every 6 (six) hours as needed for headaches 10 capsule 0 ??? famotidine-Ca carb-mag hydrox (PEPCID COMPLETE) 10-800-165 mg chewable tablet Take 1 tablet by mouth daily as needed for heartburn ??? FLUoxetine 10 mg tablet/capsule TAKE 1 CAPSULE(10 MG) BY MOUTH DAILY 90 capsule 1 ??? folic acid (FOLVITE) 1 mg tablet TAKE 2 TABLETS(2000 MCG) BY MOUTH DAILY 180 tablet 3 ??? gabapentin (NEURONTIN) 100 mg capsule Take 1 capsule (100 mg total) by mouth 2 (two) times a day 60 capsule 1 ??? hydroCHLOROthiazide (HYDRODIURIL) 12.5 mg tablet TAKE 1 TABLET(12.5 MG) BY MOUTH DAILY 90 tablet 1 ??? lisinopriL (PRINIVIL,ZESTRIL) 40 mg tablet TAKE 1 TABLET(40 MG) BY MOUTH DAILY 90 tablet 4 ??? magnesium gluconate 200 mg tablet Take 1 tablet (200 mg total) by mouth as needed sleep ??? meclizine (ANTIVERT) 12.5 mg tablet Take 1 tablet (12.5 mg total) by mouth 3 (three) times a day as needed for dizziness 20 tablet 0 ??? methotrexate 2.5 mg tablet TAKE 8 TABLETS BY MOUTH WEEKLY ON THURSDAYS 96 tablet 2 ??? multivitamin with minerals tablet Take 1 tablet by mouth every morning ??? Nurtec ODT tablet,disintegrating ??? sulfaSALAzine EN (AZULFIDINE EN) 500 mg EC tablet TAKE 2 TABLETS BY MOUTH TWICE DAILY 360 tablet 0 ??? valACYclovir (VALTREX) 1 gram tablet Take 2 tabs (2000 mg) 2 times a days for 1 day. 30 tablet 1 ??? vit I-W-mwhsbv-zinc-lutein (PreserVision Lutein) 226-90-0.8-5 mg capsule Take 1 tablet by mouth2 (two) times a day ??? [DISCONTINUED] atenoloL (TENORMIN) 25 mg tablet TAKE 1 TABLET(25 MG) BY MOUTH DAILY 90 tablet 1 No current facility-administered medications on file prior to visit. Patient Active Problem List Diagnosis ??? Cerebral arterial aneurysm ??? Migraine with aura ??? High risk medication use ??? Rheumatoid arthritis with negative rheumatoid factor (HCC) ??? Scleritis and episcleritis of left eye ??? Encounter for follow-up surveillance of breast cancer ??? Cervical high risk HPV (human papillomavirus) test positive ??? Diplopia ??? Malignant neoplasm of central portion of right breast in female, estrogen receptor positive (HCC) ??? Disorder of binocular movement ??? Headache ??? Visual discomfort ??? Postmenopausal bleeding ??? History of breast cancer ??? Mixed hyperlipidemia ??? Lumbar back pain ??? Atrial tachycardia (HCC) ??? History of COVID-19 ??? Hypertension, essential ??? Tachycardia ??? Cough ??? Fatigue ??? Moderate episode of recurrent major depressive disorder (HCC) ??? Breast mass ??? Pain in both feet ??? Cystoid macular edema of both eyes ??? PCO (posterior capsule opacification), bilateral ??? Pattern dystrophy of macula ??? Bronchiolitis ??? Annual physical exam ??? Recurrent cold sores ??? Hyperglycemia ??? Aneurysm (CMS/HCC) ([facility]) ??? History of right common carotid artery stent placement ??? Chronic tension-type headache, not intractable ??? Brain aneurysm ??? Obstructive sleep apnea ??? Amaurosis fugax of right eye ??? BMI 25.0-25.9,adult ??? Unequal pupils ??? Need for immunization against influenza ??? Punctate epithelial keratopathy of both eyes ??? Dissection of carotid artery (CMS/HCC) ([facility]) ??? Primary insomnia Past Medical History: Diagnosis Date ??? Autoimmune disease (CMS/HCC) (HCC) ??? Benign left breast lump 06/2002 biopsy showed fibrosis and hyperplasia ??? Brain aneurysm Followed by Dr. Chaudhari: Every 3 years ??? Breast cancer (HCC) 2015 Invasive ductal carcinoma ??? Cataract ??? CME (cystoid macular edema), bilateral ??? Depression ??? Elevated cholesterol ??? History of chemotherapy 2015 Breast cancer ??? History of radiation therapy 2015 Right breast ??? Hypertension ??? Migraine ??? Motion sickness sometimes on [place] ??? Obstructive sleep apnea 06/19/2022 ??? RA (rheumatoid arthritis) (HCC) Past Surgical History: Procedure Laterality Date ??? ANGIO SELECTIVE CAROTID HEARING THERAPY TEACHER RIGHT Right 01/28/2023 ??? ANGIO SELECTIVE INTERNAL CAROTID LEFT Left 03/12/2022 ??? BREAST BIOPSY Left 2002 benign ??? BREAST LUMPECTOMY Right 2014 Invasive ductal carcinoma ??? CARDIAC PACEMAKER PLACEMENT 03/2023 Hypoglossal Nerve Stimulator - Inspire Device ??? CEREBRAL ANEURYSM REPAIR 06/16/2022 ??? COLONOSCOPY 03/06/2020 ??? CYST REMOVAL 1998 thyroid ??? ENDOMETRIAL ABLATION 02/2007 ??? EYE SURGERY Bilateral 2021 cataract ??? HYSTEROSCOPY ? ? PORT PLACEMENT CHEST >5 YEARS N/A 01/17/2015 ??? PORT REMOVAL N/A 04/10/2015 ??? RHINOPLASTY 1985 ??? THYROIDECTOMY, PARTIAL Left 1997 Dr. Demetris Aguilar ??? TONSILLECTOMY 1983 ??? TUBAL LIGATION 02/2007 ??? VITRECTOMY Right 09/23/2022 for CME Family History Problem Relation Age of Onset ??? Hypertension Mother ??? Anemia Mother ??? Heart disease Mother ??? Heart failure Mother ??? Aortic aneurysm Mother ??? Alzheimer's disease Father ??? Depression Father ??? Hypertension Father ??? Memory loss Father ??? Lung cancer Father ??? Peripheral vascular disease Father ??? Cancer Father ??? Dementia Father ??? Depression Sister ??? Hypertension Sister ??? Arthritis Sister ??? Osteoporosis Sister ??? No Known Problems Sister ??? Hypertension Sister ??? Depression Brother ??? Hypertension Brother ??? Memory loss Maternal Grandmother ??? Cancer Maternal Grandfather ??? Depression Paternal Grandmother ??? Stroke Paternal Grandmother ??? Anesthesia problems Neg Hx ??? Breast cancer Neg Hx ??? Malig Hypertension Neg Hx ??? Malig Hyperthermia Neg Hx ??? Pseudochol deficiency Neg Hx Social History Tobacco Use ??? Smoking status: Never Passive exposure: Never ??? Smokeless tobacco: Never Substance and Sexual Activity ??? Drug use: Not Currently Comment: 2 drinks per month ??? Sexual activity: Defer Partners: Male control/protection: Post-menopausal, Tubal Ligation Alcohol Use: Not At Risk (02/24/2023) AUDIT-C ??? Frequency of Alcohol Consumption: Monthly or less ??? Average Number of Drinks: 1 or 2 ??? Frequency of Binge Drinking: Never Vital Signs Vitals: 09/08/23 1047 BP: 137/81 BP Location: Left arm Patient Position: Sitting Pulse: 74 Temp: 36.2 ??C (97.1 ??F) TempSrc: Temporal SpO2: 96% Weight: 66.9 kg (147 lb 8 oz) Height: 160 cm (5' 3 ) Review of Systems Review of Systems Constitutional: Negative for fever, malaise/fatigue and weight loss. HENT: Negative for congestion, hearing loss and tinnitus. Eyes: Negative for blurred vision and double vision. Respiratory: Positive for cough. Negative for shortness of breath and wheezing. Cardiovascular: Positive [...] complex commands. Speech was clear and fluent. She was able to provide a detailed history and answered questions appropriately. She was able to name the last 3 presidents. She was able to tell me there were 14 quarters in $3.50. She was able to spell the word world forwards and backwards. HEENT: normocephalic and atraumatic. No conjunctival injection. [...] There was no drift. Finger to nose and bsat-izai-kovi were intact. Sensation was intact to light touch, pinprick, and vibration. Romberg negative. Patient was able to stand from seated position without assist. Gait was normal based and she could heel, toe and tandem walk. Deep tendon reflexes were 2 throughout and both toes were downgoing. Assessment/Plan Diagnosis Plan 1. Intractable migraine without aura and without status migrainosus Ambulatory referral to Neurology 2. Migraine with aura and without status migrainosus, not intractable 3. 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 I reviewed Neurosurgery and Neuro- Ophthalmology records. I personally reviewed multiple imaging studies including recent brain orbit MRI with and without contrast and CTA head and neck with and without contrast. She has a longstanding history of migraine, which changed in presentation after menopause, but has remained relatively stable over the last several years. She also has occasional migraine with aura, which began in 2008 and occur rather infrequently. She declined preventative treatment and would prefer to manage her migraines with abortive medications, which I think is reasonable given the relative infrequency of her headaches. She has months without any migraines, and at most experiences 4-6 migraines in a month. We will avoid triptans with her history of aneurysm and carotid dissection. I offered samples of Zavzpret nasal spray, which I explained has a similar mechanism of action to Nurtec and Ubrelvy, but may have a faster onset. We reviewed proper administration and potential side effects. She was told to call if she would likea prescription for this medication. I recommended adding benadryl and promethazine as needed for nausea or severe migraine (DSE). We discussed the importance of diet, hydration, exercise, maintaining good sleep hygiene and sleeping regular hours. We discussed the benefits of avoidance of processed foods, skipping meals, excessive caffeine intake, artificial sweeteners, and alcohol. We discussed the impact of stress or stress let down, flying, high altitude, barometric pressure changes, and hormonal changes. I have given siomara headache calendar to track the frequency and intensity of the migraines and the associated symptoms. I have also given her a headache diet to review and determine if there are food triggers to avoid. I have included web site information for the [place] [employer] and the [place] [employer] should she decide to do more reading about migraines. Abortive medication should be limited to no more than 8-10 days per month. If abortive treatment isneeded more often, she was encouraged to follow-up to discuss preventative treatment options. We discussed realistic expectations for migraine improvement and that they may not experience more than 50% reduction in frequency/intensity on preventative medication. The expectation should not be to obtain complete headache freedom. I think she has a good understanding of what we discussed. All questions were answered in detail. Narendra happy to see her back in 4-6 months or as needed. I spent a total of 52 abjz-jz-ysqo minutes of which more than 50% of visit spent counseling and coordinating care. In addition to the time spent during the session with the patient, I spent 14 minutes preparing to see the patient, 8 minutes documenting clinical information and ordering tests and medications. Total time spend on encounter on the day of the visit: 74 minutes. Return in about 4 months (around 01/09/2024). Future Appointments Date Time Provider Department Center 09/23/2023 1:00 PM Valorie Young MD [facility] Cardiology 10/21/2023 11:15 AM Douglas Acosta MD MG PLM 200 MH Specialty 03/03/2024 3:00 PM Patricia Martinez MD RHEU CAM 5C [facility] Rheum 03/08/2024 9:30 AM Zahida Kaplan PA GEN CTR 40 NL 05/03/2024 10:30 AM Harpal De León MD MGC CAR MRVL Specialty 06/17/2024 11:00 AM Ema Keyes MD OBGYN OB D[facility] Specialty Thank you for allowing me to participate in the care of your patient. If you have any questions, feel free to contact me. Sincerely, KAREN Joyner Cosigned by Fatimah Leal MD PhD at 09/18/2023 4:33 PM CDT documented in this encounter Plan of Treatment Not on file documented as of this encounter Visit Diagnoses Diagnosis Intractable migraine without aura and without status migrainosus- Primary Migraine with aura and without status migrainosus, not intractable Cerebral aneurysm, nonruptured documented in this encounter Discontinued Medications Medication Sig Discontinue Reason Start Date End Da te temazepam (RESTORIL) 15 mg capsuleIndications:Insom shila Take 1 capsule (15 mg total) by mouth nightly as needed for sleep 06/05/2023 09/08/2023 traZODone (DESYREL) 50 mg tablet Take 1 tablet (50 mg total) by mouth nightly as needed for sleep 04/30/2023 09/08/2023 oxyCODONE (ROXICODONE) 5 mg immediate release tabletIndications:Pain Take 1 tablet (5 mg total) by mouth every 4 (four) hours as needed for pain 04/01/2023 09/08/2023 ezetimibe (ZETIA) 10 mg tabletIndications:Mixed hyperlipidemia Take 1 tablet (10 mg total) by mouth daily 04/01/2023 09/08/2023 eszopiclone (LUNESTA) 2 mg tabletIndications:Insomn ia Take 1 tablet (2 mg total) by mouth daily Take immediately before bedtime 05/18/2023 09/08/2023 documented as of this encounter Orders Outpatient Referral Count Last Ordered Date Fir st Ordered Date AMB REFERRAL TO NEUROLOGY 1 09/08/2023 documented in this encounter Care Teams Security Researcher Relationship Specialty Start Date End Date Sylvia Dawson PA [address] [place] [address] PCP - General Internal Medicine 01/05/20 Erica Rodrigues MD [address] [place] [address] Radiation Oncologist Radiation Oncology 10/25/18 Gasper Kaba MD [address] [place] [address] Surgeon Surgical Oncology 10/25/18 Brandy Aguirre, HEARING THERAPY TEACHER [address] [place] [address] Nurse Practitioner Certified Clinical Nurse Specialist 10/25/18 Jo-Ann Morrow, PhD [address] [place] [address] Nurse Practitioner Radiation Oncology 10/25/18 Christina Louis, IN SERVICE EDUCATION TEACHER [address] [place] [address] Nurse Practitioner Medical Oncology 10/25/18 Jessy Adame MD [address] [facility], [address] [place] [address] Consulting Physician Retina Ophthalmology 04/15/23 Harpal Carpio MD [address] [place] [address] Neurologist Neurology 04/15/23 Rossana Church DNP [address] [place] [address] Nurse Practitioner Nurse Practitioner 04/15/23 Zahida Kaplan PA [address] DIV NEUROLOGY GENERAL, [facility] [address] [place] [address] Physician Technical Data Analyst Physician Technical Data Analyst 04/15/23 Fadi Cook PA [address] NEUROLOGY SLEEP [facility], [facility] [address] [place] [address] Physician Technical Data Analyst Sleep Medicine 04/15/23 Harpal De León MD [address] [facility] [address] [facility] [address] [place] [address] Sourcing Internship Cardiology 04/15/23 Valorie Young MD [address] [facility] [address] [place] [address] Sourcing Internship Cardiology 04/15/23 Patricia Martinez MD [address] [facility] DIV IM RHEUMATOLOGY, [facility] [address] [place] [address] Consulting Physician Rheumatology 04/15/23 documented as of this encounter
--- OUTSIDE RECORDS SUMMARY | 2024-04-24 05:47 | XMS_ITS | Encounter Summary ---
Author Organization [facility] Address [address] [place] [address] Phone Care Team Providers Care Xray Tech Name Role Phone Erica Rodrigues MD Unavailable Gasper Kaba MD Unavailable Brandy Aguirre ASSEMBLER FLEXIBLE LEADS Unavailable Jo-Ann Morrow PhD Unavailable Christina Louis RENTAL BOATS CARETAKER Unavailable [phone] Sylvia Dawson Primary Care Provider [phone] Jessy Adame MD Unavailable Harpal Carpio MD Unavailable Rossana Church DNP Unavailable Zahida Kaplan Unavailable Fadi Cook Unavailable Harpal De León MD Unavailable Valorie Young MD Unavailable Patricia Martinez MD Unavailable [phone] Encounter Details Date Type Department Care Team (Late st Contact Info) Description 11/13/2023 Orders Only [facility] [address] [place] [address] Procknow, Wen Vasquez MD 1 [facility] [address] [place] [address] Dissection of carotid artery (CMS/HCC) (HCC); Cerebral arterial aneurysm; Myopia of both eyes; Benign familial hypermobility; Encounter for nonprocreative genetic counseling Social History Tobacco Use Types Packs/Day Years [...] on file Legal Sex Female 3: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 Gender Identity Not on file Sexual Orientation Not on file 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 Not on file Not on file Not on file documented as of this encounter Plan of Treatment Not on file documented as of this encounter Procedures Procedure Name Priority Date/Time Associated Diagnosis Comments GENOMICS ([facility]) Routine 10/27/2023 2:55 PM CDT Dissection of carotid artery (CMS/HCC) (HCC) Cerebral arterial aneurysm Myopia of both eyes Benign familial hypermobility Encounter for nonprocreative genetic counseling documented in this encounter Results * Genomics ([facility]) (10/27/2023 2:55 PM CDT) GENETIC ANALYSIS OVERALL INTERPRETATION Inconclusive [facility] GENETIC ANALYSIS REPORT Please see report PDF [facility] Buccal Smear 10/27/2023 2:55 PM CDT 11/12/2023 11:20 AM CDT Narrative [facility] - 12/14/2023 3:31 PM CDT This result has genomic variants that were not included in this document. REPORT IMAGES AND/OR SCANNED DOCUMENTS ONLY VIEWABLE IN PDF FORMAT us Wen Montenegro MD LAB GENETIC TESTING Final Result [facility] [address] [place] [address] documented in this encounter Visit Diagnoses Diagnosis Dissection of carotid artery (CMS/HCC) (HCC) Dissection of carotid artery Cerebral arterial aneurysm Cerebral aneurysm, nonruptured Myopia of both eyes Benign familial hypermobility Encounter for nonprocreative genetic counseling documented in this encounter Care Teams Xray Tech Relationship Specialty Start Date End Date Sylvia Dawson PA [address] [facility] [address] [place] [address] PCP - General Internal Medicine 01/05/20 Erica Rodrigues MD [address] LL [facility] [address] [place] [address] Radiation Oncologist Radiation Oncology 10/25/18 Gasper Kaba MD [address] LL [address] [place] [address] Surgeon Surgical Oncology 10/25/18 Brandy Aguirre CNS [address] LL [address] [place] [address] Nurse Practitioner Certified Clinical Nurse Specialist 10/25/18 Jo-Ann Morrow, PhD [address] LL [facility] [address] [place] [address] Nurse Practitioner Radiation Oncology 10/25/18 Christina Louis NP [address] [facility] # LL LL [address] [place] [address] Nurse Practitioner Medical Oncology 10/25/18 Jessy Adame MD 4901 [facility]PHTHAL[facility]OLOGY, [address] [place] [address] Consulting Physician Retina Ophthalmology 04/15/23 Harpal Carpio MD [address] [place] [address] Neurologist Neurology 04/15/23 Rossana Church DNP [address] [facility] [place] [address] Nurse Practitioner Nurse Practitioner 04/15/23 Zahida Kaplan PA [address] DIV NEUROLOGY [facility], [facility] [address] [place] [address] Physician Air And Water Filler Physician Air And Water Filler 04/15/23 Fadi Cook PA [address] DIV NEUROLOGY SLEEP MED, [facility] [address] [place] [address] Physician Air And Water Filler Sleep Medicine 04/15/23 Harpal De León MD [address] [facility] [address] [place] [address] Guard Range Cardiology 04/15/23 Valorie Young MD [address] [facility] [address] [place] [address] Guard Range Cardiology 04/15/23 Patricia Martinez MD 4921 [facility] DIV RHEUMATOLOGY, [address] [address] Consulting Physician Rheumatology 04/15/23 documented as of this encounter
--- OUTSIDE RECORDS SUMMARY | 2024-04-24 05:47 | XMS_ITS | Encounter Summary ---
Author Organization [facility] [employer] [facility] Address [address] [place] [address] Phone Care Team Providers Care Type Soldering Machine Tender Name Role Phone Erica Rodrigues MD Unavailable Gasper Kaba MD Unavailable Brandy Aguirre ROUTE SALES ASSOCIATE Unavailable Jo-Ann Morrow PhD Unavailable Christina Louis SHEET METAL DUCT INSTALLER Unavailable [phone] Sylvia Dawson Primary Care Provider [phone] Jessy Adame MD Unavailable Harpal Carpio MD Unavailable Rossana Church DNP Unavailable Zahida Kaplan Unavailable Fadi Cook Unavailable Harpal De León MD Unavailable Valorie Young MD Unavailable [phone] Patricia Martinez MD Unavailable Reason for Referral * Sleep Medicine (Routine) - Closed Specialty Diagnoses / Procedures Referred By Contac t Referred To Contact Diagnoses JOSE (obstructive sleep apnea) S/P placement of hypoglossal nerve stimulator Procedures PSG-Sleep Provider Use Only Fadi Cook PA [address] [place] [address] Phone: tel: fax: [facility] (All Locations) Referral ID Status Reason Start Date Expiration Date Visits Re quested Visits Authorized [id number] Closed 11/18/2023 04/12/2024 1 1 Encounter Details Date Type Department Care Team (Late st Contact Info) Description 11/02/2023 Orders Only [facility] Neuro Sleep [address] [facility] 6th Floor [address] [place] [address] Fadi Cook PA [address] [place] [address] JOSE (obstructive sleep apnea) (Primary Dx); S/P placement of hypoglossal nerve stimulator Social History Tobacco Use Types Packs/Day Years [...] on file Legal Sex Female 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 03/31/2024 ??2:34 PM PSG-Sleep Provider Use Only Date/Time: 03/30/2024 10:00 PM Performed by: Xavier Bird MD Authorized by: Fadi Cook PA ?? us [facility] ORDERABLES Fin al Result documented in this encounter Visit Diagnoses Diagnosis JOSE (obstructive sleep apnea)- Primary Obstructive sleep apnea (adult) (pediatric) S/P placement of hypoglossal nerve stimulator JOSE (obstructive sleep apnea) Obstructive sleep apnea (adult) (pediatric) S/P placement of hypoglossal nerve stimulator documented in this encounter Care Teams Type Soldering Machine Tender Relationship Specialty Start Date End Date Sylvia Dawson PA [address] [facility] 500 [place] [address] PCP - General Internal Medicine 01/05/20 Erica Rodrigues MD [address] LL [address] [place] [address] Radiation Oncologist Radiation Oncology 10/25/18 Gasper Kaba MD [address] LL [address] [place] [address] Surgeon Surgical Oncology 10/25/18 Brandy Aguirre CNS [address] [place] [address] Nurse Practitioner Certified Clinical Nurse Specialist 10/25/18 Jo-Ann Morrow, PhD [address] [place] [address] Nurse Practitioner Radiation Oncology 10/25/18 Christina Louis NP 49[address] [facility] # LL LL [address] [place] [address] Nurse Practitioner Medical Oncology 10/25/18 Jessy Adame MD [facility]01 [facility]PH[facility], [address] [place] [address] Consulting Physician Retina Ophthalmology 04/15/23 Harpal Carpio MD [address] [place] [address] Neurologist Neurology 04/15/23 Rossana Church DNP [address] [facility] [place] [address] Nurse Practitioner Nurse Practitioner 04/15/23 Zahida Kaplan PA [address] [facility] DIV NEUROLOGY [facility], [facility] [address] [place] [address] Physician Dental Technician Physician Dental Technician 04/15/23 Fadi Cook PA [address] [facility] DIV NEUROLOGY SLEEP MED, [facility] [address] [place] [address] Physician Dental Technician Sleep Medicine 04/15/23 Harpal De León MD [address] [address] Pharmacy Informaticist Cardiology 04/15/23 Valorie Young MD [address] [facility] [address] [place] [address] Pharmacy Informaticist Cardiology 04/15/23 Patricia Martinez MD 4921 [facility] DIV IM RHEUMATOLOGY, [address] [address] Consulting Physician Rheumatology 04/15/23 documented as of this encounter
--- OUTSIDE RECORDS SUMMARY | 2024-04-24 05:47 | XMS_ITS | Encounter Summary ---
Author Organization [facility] Address [address] [place] [address] Phone Care Team Providers Care Faculty Research Assistant Name Role Phone Erica Rodrigues MD Unavailable Gasper Kaba MD Unavailable Brandy Aguirre STARCHER AND TENTER RANGE FEEDER Unavailable Jo-Ann Morrow PhD Unavailable [phone] Christina Louis DRAMATIC READER Unavailable [phone] Sylvia Dawson Primary Care Provider [phone] Jessy Adame MD Unavailable Harpal Carpio MD Unavailable Rossana Church DNP Unavailable Zahida Kaplan Unavailable Fadi Cook Unavailable Harpal De León MD Unavailable Valorie Young MD Unavailable Patricia Martinez MD Unavailable Encounter Details Date Type Department Care Team (Late st Contact Info) Description 09/23/2023 1:00 PM CDT Office Visit [facility] Cardiology [facility] Medicine 8th [place] [address] [place] [address] Valorie Young MD [address] [facility] [address] [place] [address] Primary hypertension (Primary Dx) Social History Tobacco Use Types [...] on file Legal Sex Female 3: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 ART PROFESSOR Gender Identity Not on file Sexual Orientation Not on file 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 Not on file Not on file documented as of this encounter Last Filed Vital Signs Vital Sign Reading Time Taken Comments Blood Pressure 106/74 09/23/2023 12:44 PM CDT Pulse 67 09/23/2023 12:44 PM CDT Temperature - - Respiratory Rate - - Oxygen Saturation 95% 09/23/2023 12:44 PM CDT Inhaled Oxygen Concentration - - Weight 67 kg (147 lb 9.6 oz) 09/23/2023 12:44 PM CDT Height 160 cm (5' 3 ) 09/23/2023 12:44 PM CDT Body Mass Index 26.15 09/23/2023 12:44 PM CDT documented in this encounter Patient Instructions * Patient Instructions* Valorie Young MD - 09/23/2023 1:00 PM CDT Continue current medications Watch your sodium intake Stay active Monitor your blood pressure. Your target is less than 130/80 Follow-up with me in 2 years. Call in the interim if any concerns. documented in this encounter Progress Notes * Valorie Young MD - 09/23/2023 1:00 PM CDT HYPERTENSION CLINIC RETURN VISIT Patient Name: Yesika Denney : 1960 STEVEN: 09/23/2023 HPI Mrs. 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 Reports doing well and BP has been controlled and stable. Compliant with meds and low sodium diet although does not take HCTZ daily unless BP >140/90 which is rare. Not exercising regularly. Takes atenolol for atrial tachycardia and sees Dr. Harpal De León; shilpa. She presented to the ED in May with CP felt secondary to rheumatoid arthritis. MEDICATIONS Current Outpatient Medications: acetaminophen (TYLENOL) 325 mg tablet, Take 2 tablets (650 mg total) by mouth every 6 (six) hours as needed for pain Do not exceed 4000 mg of acetaminophen in a 24 hour period. (Patient taking differently: Take 2 tablets (650 mg total) by mouth every 6 (six) hours as needed for pain Do not exceed 4000 mg of acetaminophen in a 24 hour period.), Disp: , Rfl: aspirin 81 mg enteric coated tablet, Take 1 tablet (81 mg total) by mouth daily (Patient taking differently: Take 1 tablet (81 mg total) by mouth every morning), Disp: 90 tablet, Rfl: 3 atenoloL (TENORMIN) 25 mg tablet, TAKE 1 TABLET(25 MG) BY MOUTH DAILY, Disp: 90 tablet, Rfl: 2 uqdrmjjvaq-hosrawfprptxa-vjqxtoks-codeine (FIORICET WITH CODEINE) 48-338-97-30 mg per capsule, Take1 capsule by mouth every 6 (six) hours as needed for headaches, Disp: 10 capsule, Rfl: 0 famotidine-Ca carb-mag hydrox (PEPCID COMPLETE) 10-800-165 mg chewable tablet, Take 1 tablet by mouth daily as needed for heartburn, Disp: , Rfl: FLUoxetine 10 mg tablet/capsule, TAKE 1 CAPSULE(10 MG) BY MOUTH DAILY, Disp: 90 capsule, Rfl: 1 folic acid (FOLVITE) 1 mg tablet, TAKE 2 TABLETS(2000 MCG) BY MOUTH DAILY, Disp: 180 tablet, Rfl: 3 gabapentin (NEURONTIN) 100 mg capsule, Take 1 capsule (100 mg total) by mouth 2 (two) times a day, Disp: 60 capsule, Rfl: 1 hydroCHLOROthiazide (HYDRODIURIL) 12.5 mg tablet, TAKE 1 TABLET(12.5 MG) BY MOUTH DAILY, Disp: 90 tablet, Rfl: 1 lisinopriL (PRINIVIL,ZESTRIL) 40 mg tablet, TAKE 1 TABLET(40 MG) BY MOUTH DAILY, Disp: 90 tablet, Rfl: 4 magnesium gluconate 200 mg tablet, Take 1 tablet (200 mg total) by mouth as needed sleep, Disp: , Rfl: meclizine (ANTIVERT) 12.5 mg tablet, Take 1 tablet (12.5 mg total) by mouth 3 (three) times a day as needed for dizziness, Disp: 20 tablet, Rfl: 0 methotrexate 2.5 mg tablet, TAKE 8 TABLETS BY MOUTH WEEKLY ON THURSDAYS, Disp: 96 tablet, Rfl: 2 multivitamin with minerals tablet, Take 1 tablet by mouth every morning, Disp: , Rfl: Nurtec ODT tablet,disintegrating, , Disp: , Rfl: promethazine (PHENERGAN) 12.5 mg tablet, Take 1 tablet (12.5 mg total) by mouth every 6 (six) hoursas needed (nausea/migraine), Disp: 20 tablet, Rfl: 1 sulfaSALAzine EN (AZULFIDINE EN) 500 mg EC tablet, TAKE 2 TABLETS BY MOUTH TWICE DAILY, Disp: 360 tablet, Rfl: 0 valACYclovir (VALTREX) 500 mg tablet, Take 1 tablet (500 mg total) by mouth daily, Disp: 90 tablet,Rfl: 1 vit U-M-qjruuy-zinc-lutein (PreserVision Lutein) 226-90-0.8-5 mg capsule, Take 1 tablet by mouth 2 (two) times a day, Disp: , Rfl: REVIEW OF SYSTEMS Per HPI. All other systems negative on complete review. VITAL SIGNS BP 106/74 (BP Location: Left arm, Patient Position: Sitting) Pulse 67 Ht 160 cm (5' 3 ) Wt 67kg (147 lb 9.6 oz) LMP (LMP Unknown) SpO2 95% BMI 26.15 kg/m?? PHYSICAL EXAM GENERAL: No distress. HEENT: No scleral icterus. NECK: No carotid bruits. LUNGS: Clear to auscultation bilaterally without wheezes or rales. HEART: Regular rate and rhythm. Normal S1, S2. No murmurs, gallops or rubs. ABDOMEN: Soft, nontender. No palpable masses. No audible bruits. EXTREMITIES: Without edema. Pulses 2+ and symmetrical. NEUROLOGICAL: Alert and oriented x3. Grossly nonfocal. DATA Chemistry Lab Results Component Value Date SODIUM 142 07/31/2023 POTASSIUM 4.3 06/13/2022 CHLORIDE 105 07/31/2023 CO2 25 07/31/2023 ANIONGAP 9 06/13/2022 BUNSER 10 07/31/2023 CREATININE 0.69 07/31/2023 GLUCOSE 86 07/31/2023 CALCIUM 8.9 07/31/2023 BILITOT 0.4 07/31/2023 PROTEIN 6.1 07/31/2023 ALBUMIN 4.2 07/31/2023 GFRNAA 86 (L) 06/13/2022 GFRAA >90.0 03/16/2018 ALKPHOS 77 07/31/2023 AST 18 07/31/2023 ALT 17 07/31/2023 Lab Results Component Value Date CHOL 197 07/31/2023 CHOL 198 02/24/2023 CHOL 258 (H) 08/06/2022 POCCHOL 281 09/22/2019 Lab Results Component Value Date HDL 73 07/31/2023 HDL 92 02/24/2023 HDL 104 03/25/2022 POCHDL 78 09/22/2019 Lab Results Component Value Date LDLCALC 107 (H) 07/31/2023 LDLCALC 91 02/24/2023 LDLCALC 218 (H) 03/25/2022 LDLDIRECT 139 08/06/2022 LDLDIRECT 194 (H) 04/18/2021 POCLDL 165 09/22/2019 Lab Results Component Value Date TRIG 93 07/31/2023 TRIG 88 02/24/2023 TRIG 76 08/06/2022 POCTRIG 188 09/22/2019 Lab Results Component Value Date POCCHDLR 3.6 09/22/2019 Lab Results Component Value Date POCNONHDL 203 09/22/2019 Lab Results Component Value Date POCCHLPL 281 09/22/2019 Lab Results Component Value Date CRP 7 07/31/2023 ASSESSMENT AND PLAN Hypertension Good control. No changes to meds. Encouraged on lifestyle. She will monitor and report readings. Continue regular follow-up with PCP and Dr. De León. Follow-up with me in 2 years or sooner if needed. Valorie Young MD religion instructor Clinical Hypertension Specialist documented in this encounter Plan of Treatment Not on file documented as of this encounter Visit Diagnoses Diagnosis Primary hypertension- Primary Unspecified essential hypertension documented in this encounter Care Teams Faculty Research Assistant Relationship Specialty Start Date End Date Sylvia Dawson PA [address] [facility] 500 [place], [place] [id number] PCP - General Internal Medicine 01/05/20 Erica Rodrigues MD [address] LL [facility] [address] [place] [address] Radiation Oncologist Radiation Oncology 10/25/18 Gasper Kaba MD [address] LL [facility] [address] [place] [address] Surgeon Surgical Oncology 10/25/18 Brandy Aguirre CNS [address] LL [facility] [address] [place] [address] Nurse Practitioner Certified Clinical Nurse Specialist 10/25/18 Jo-Ann Morrow, PhD [address] LL [facility] [address] [place] [address] Nurse Practitioner Radiation Oncology 10/25/18 Christina Louis NP [address] [facility] [address] LL [address] [place] [address] Nurse Practitioner Medical Oncology 10/25/18 Jessy Adame MD [address] [facility] DEPT OPHTHALMOLOGY, [address] [place] [address] Consulting Physician Retina Ophthalmology 04/15/23 Harpal Carpio MD [address] [place] [address] Neurologist Neurology 04/15/23 Rossana Church DNP [address] [facility] [place] [address] Nurse Practitioner Nurse Practitioner 04/15/23 Zahida Kaplan PA [address] DIV NEUROLOGY [facility] [address] [place] [address] Physician Customer Engineering Specialist Physician Customer Engineering Specialist 04/15/23 Fadi Cook PA [address] DIV NEUROLOGY SLEEP [facility], [facility] [address] [place] [address] Physician Customer Engineering Specialist Sleep Medicine 04/15/23 Harpal De León MD [address] [facility] [address] [place], [place] [id number] Comparison Shopper Cardiology 04/15/23 Valorie Young MD [address] [facility] [address] [place] [address] Comparison Shopper Cardiology 04/15/23 Patricia Martinez MD [address] [facility] DIV RHEUMATOLOGY, [address] [address] Consulting Physician Rheumatology 04/15/23 documented as of this encounter
--- OUTSIDE RECORDS SUMMARY | 2024-04-24 05:47 | XMS_ITS | Encounter Summary ---
Author Organization [facility] Healthcare Address [address] [place] [address] Care Team Providers Care Wet Cleaner Machine Name Role Phone Erica Rodrigues MD Unavailable Gasper Kaba MD Unavailable Brandy Aguirre Unavailable [phone] Jo-Ann Morrow PhD Unavailable [phone] Christina Louis COMBINE OPERATOR Unavailable [phone] Sylvia Dawson Primary Care Provider [phone] Jessy Adame MD Unavailable Harpal Carpio MD Unavailable Ranjit Rossana Alicia [facility] Unavailable Zahida Kaplan Unavailable Fadi Cook Unavailable Harpal De León MD Unavailable [phone] Valorie Young MD Unavailable Patricia Martinez MD Unavailable Reason for Referral * Diagnostic Imaging (Routine) - Authorized Specialty Diagnoses / Procedures Referred By Contac t Referred To Contact Diagnoses Breast cancer screening by mammogram Procedures Screening Mammogram Bilateral W Sylvia Álvarez PA [address] [place] [address] Phone: tel: fax: [address] [phone] Referral ID Status Reason Start Date Expiration Date V isits Requested Visits Authorized [id number] Authorized 03/23/2024 04/22/2025 1 1 WORKER Reason for Visit * Reason Comments Annual Exam Weight Gain Encounter Details Date Type Department Care Team (Late st Contact Info) Description 03/23/2024 2:00 PM ADZ WORKER Office Visit [facility] Family Medicine [address] [place] [address] Sylvia Dawson PA [address] [place] [address] Annual physical exam (Primary Dx); Hypertension, essential; Fatigue, unspecified type; Hyperglycemia; Mixed hyperlipidemia; Breast cancer screening by mammogram; Need for influenza vaccination; BMI 26.0-26.9,adult Social History Tobacco Use Types Packs/Day Years Used Date Smoking Tobacco: Never Passive Smoke Exposure: Never Smokeless Tobacco: Never Alcohol Use Standard Drinks/Week Comments Yes 1 (1 standard drink = 0.6 oz pur e alcohol) social AUDIT-C Answer Date Recorded Q1: How often do you have a drink containing alc ohol? Monthly or less 03/23/2024 Q2: How many drinks containi ng alcohol do you have on a typical day when you are drinking? 1 or 2 03/23/2024 Q3: How often do you have si x or more drinks on one occasion? Less than monthly 03/23/2024 PHQ-2 Answer Date Recorded PHQ-2 Total Score 0 03/23/2024 Personal Safety Answer Date Recorded Have you ever been in or are you currently in a harmful physical or emotional relationship or is someone making you feel afraid or unsafe? 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 file Not on file Not on file documented as of this encounter Last Filed Vital Signs Vital Sign Reading Time Taken Comments Blood Pressure 122/80 03/23/2024 1:53 PM ADZ WORKER Pulse 72 03/23/2024 1:53 PM ADZ WORKER Temperature 36.7 ??C (98 ??F) 03/23/2024 1:53 PM ADZ WORKER Respiratory Rate - - Oxygen Saturation - - Inhaled Oxygen Concentration - - Weight 69.4 kg (153 lb) 03/23/2024 1:53 PM ADZ WORKER Height 160 cm (5' 3 ) 03/23/2024 1:53 PM ADZ WORKER Body Mass Index 27.1 03/23/2024 1:53 PM ADZ WORKER documented in this encounter Ordered Prescriptions Prescription Sig Dispense Quantity Refills Last Filled Start Date End Date ezetimibe (ZETIA) 10 mg tablet Take 1 tablet (10 mg total) by mouth daily 90 tablet 3 03/23/2024 FLUoxetine (PROzac) 20 mg capsule Take 1 capsule (20 mg total) by mouth daily 03/23/2024 documented in this encounter Progress Notes * Sylvia Dawosn PA - 03/23/2024 2:00 PM CST Images from the original note were not included. Subjective/Objective Patient ID: Yesika Denney is a 63 y.o. female. Chief Complaint Annual Exam and Weight Gain HPI Patient presents for wellness exam and followup chronic concerns. JOSE -- Has INSPIRE Has sleep study scheduled. Migraines Now [facility] Still uses fioricet with codeine -- wants to refill now Depression -- Prozac 20mg HTN - Lisinopril 40 and atenolol 25, HCTZ 12.5 HLD - Zetia RA - MTX, sulfasalazine and folic acid. Concerned that she isn't able to drop the weight like she was in the past. Mamm 05/2023 Colonoscopy 02/2020--->2030 Tdap 2021 Shingrix done x 2 Review of Systems See HPI Vitals: 03/23/24 1353 BP: 122/80 BP Location: Left arm Patient Position: Sitting Pulse: 72 Temp: 36.7 ??C (98 ??F) TempSrc: Oral Weight: 69.4 kg (153 lb) Height: 160 cm (5' 3 ) Physical Exam Vitals and nursing note reviewed. Constitutional: Appearance: She is well-developed. HENT: Head: Normocephalic and atraumatic. Eyes: Comments: Pupils are equal Cardiovascular: Rate and Rhythm: Normal rate and regular rhythm. Heart sounds: No murmur heard. Pulmonary: Effort: Pulmonary effort is normal. Breath sounds: Normal breath sounds. Abdominal: Palpations: Abdomen is soft. Tenderness: There is no abdominal tenderness. Skin: General: Skin is warm and dry. Findings: No rash. Neurological: Mental Status: She is alert and oriented to person, place, and time. Assessment/Plan Diagnoses and all orders for this visit: Annual physical exam (Z00.00) (Primary) Assessment & Plan: Encouraged healthy lifestyle, good nutrition and exercise. Encouraged Calcium and Vitamin D and weight bearing exercise for bone health. Reviewed immunizations Reviewed age appropirate screenings. Hypertension, essential (I10) Assessment & Plan: Bp is stable/in acceptable range for any co-morbidities. Encouraged to limit sodium intake and exercise for weight control. Continue lisinopril 40 and atenolol 25 hydrochlorothiazide 12.5 Orders: - Comprehensive metabolic panel; Future Fatigue, unspecified type (R53.83) Assessment & Plan: Probably multifactorial. Check labs and followup to re-evaluate Orders: - TSH; Future - Vitamin B12; Future - CBC with auto differential; Future Hyperglycemia (R73.9) Assessment & Plan: Pre-diabetes/hyperglycemia is a precursor to Dm. Stressed importance of working on diet (decrease your simple sugars and one carbohydrate with each meal) and increase you exercise to achieve weight loss and this will help prevent you from progressing to diabetes. Orders: - Hemoglobin A1c; Future Mixed hyperlipidemia (E78.2) Assessment & Plan: Encouraged patient to follow low fat/low chol diet like the Mediterranean diet. Increase good fats in the diet. Increase exercise. Monitor labs as needed. Continue Zetia Orders: - Lipid panel; Future Breast cancer screening by mammogram (Z12.31) Assessment & Plan: Mammogram order provided Orders: - Screening Mammogram Bilateral W Marcelo; Future Need for influenza vaccination (Z23) Assessment & Plan: Flu vaccine updated in the office today Orders: - Flu Vaccine Tri 6m+ IM - Flulaval/Fluarix/Fluzone BMI 26.0-26.9,adult (Z68.26) Assessment & Plan: Weight/BMI is in healthy range. Continue healthy lifestyle to maintain. Other orders - FLUoxetine (PROzac) 20 mg capsule; Take 1 capsule (20 mg total) by mouth daily - ezetimibe (ZETIA) 10 mg tablet; Take 1 tablet (10 mg total) by mouth daily *This note is dictated using [employer] medical voice recognition software, variances in spelling and vocabulary are possible and unintentional.* Sylvia Dawson PA-C WORKER documented in this encounter Miscellaneous Notes * Assessment & Plan Note - Sylvia Dawson PA - 04/03/2024 10:18 PM ADZ WORKER Associated Problem(s): Breast cancer screening by mammogram Mammogram order provided WORKER * Assessment & Plan Note - Sylvia Dawson PA - 04/03/2024 10:18 PM ADZ WORKER Associated Problem(s): Need for influenza vaccination Flu vaccine updated in the office today WORKER * Assessment & Plan Note - Sylvia Dawson PA - 04/03/2024 10:17 PM ADZ WORKER Associated Problem(s): Hyperglycemia Pre-diabetes/hyperglycemia is a precursor to Dm. Stressed importance of working on diet (decrease your simple sugars and one carbohydrate with each meal) and increase you exercise to achieve weight loss and this will help prevent you from progressing to diabetes. WORKER * Assessment & Plan Note - Sylvia Dawson PA - 04/03/2024 10:17 PM ADZ WORKER Associated Problem(s): Fatigue Probably multifactorial. Check labs and followup to re-evaluate WORKER * Assessment & Plan Note - Sylvia Dawson PA - 04/03/2024 10:17 PM ADZ WORKER Associated Problem(s): Hypertension, essential Bp is stable/in acceptable range for any co-morbidities. Encouraged to limit sodium intake and exercise for weight control. Continue lisinopril 40 and atenolol 25 hydrochlorothiazide 12.5 WORKER * Assessment & Plan Note - Sylvia Dawson PA - 04/03/2024 10:17 PM ADZ WORKER Associated Problem(s): Mixed hyperlipidemia Encouraged patient to follow low fat/low chol diet like the Mediterranean diet. Increase good fats in the diet. Increase exercise. Monitor labs as needed. Continue Zetia WORKER * Assessment & Plan Note - Sylvia Dawson PA - 04/03/2024 10:17 PM ADZ WORKER Associated Problem(s): Annual physical exam Encouraged healthy lifestyle, good nutrition and exercise. Encouraged Calcium and Vitamin D and weight bearing exercise for bone health. Reviewed immunizations Reviewed age appropirate screenings. WORKER * Assessment & Plan Note - Coni Corbin LPN - 03/23/2024 1:54 PM ADZ WORKER Associated Problem(s): BMI 26.0-26.9,adult Weight/BMI is in healthy range. Continue healthy lifestyle to maintain. WORKER documented in this encounter Plan of Treatment Scheduled Orders Name Type Priority Associated Diagnoses Orde r Schedule Screening Mammogram Bilateral W Marcelo Imaging Schedule Routine, Read Routine (OP Routine) Breast cancer screening by mammogram Expected: 03/23/2024, Expires: 03/23/2025 documented as of this encounter Procedures Procedure Name Priority Date/Time Associated Diagnosis Comments CBC WITH AUTO DIFFERENTIAL Routine 04/04/2024 11:49 AM ADZ WORKER Fatigue, unspecified type TSH Routine 04/04/2024 11:49 AM ADZ WORKER Fatigue, unspecified type HEMOGLOBIN A1C Routine 04/04/2024 11:49 AM ADZ WORKER Hyperglycemia VITAMIN B12 Routine 04/04/2024 11:49 AM ADZ WORKER Fatigue, unspecified type LIPID PANEL Routine 04/04/2024 11:49 AM ADZ WORKER Mixed hyperlipidemia COMPREHENSIVE METABOLIC PANEL Routine 04/04/2024 11:49 AM ADZ WORKER Hypertension, essential documented in this encounter Results * (ABNORMAL) Lipid panel (04/04/2024 11:49 AM ADZ WORKER) Cholesterol 226(H) 100 - 199 mg/dL [facility] - 01 Triglycerides 98 0 - 149 mg/dL [facility] - 01 HDL Cholesterol 79 >39 mg/dL [facility] - 01 VLDL 17 5 - 40 mg/dL [facility] - 01 LDL, calculated 130(H) 0 - 99 mg/dL [facility] - 01 Blood 04/04/2024 11:4 9 AM ADZ WORKER 04/04/2024 Narrative [facility] - 04/05/2024 7:36 AM ADZ WORKER Performed at: ??01 - [facility] [address] ??[id number] [employer]: John Lozoya PhD, Phone: ??[phone] Sylvia JONES LAB BLOOD ORDERABLES Final Result [facility] * (ABNORMAL) CBC with auto differential (04/04/2024 11:49 AM ADZ WORKER) WBC 4.7 3.4 - 10.8 x10E3/uL [facility] - 01 RBC 3.57(L) 3.77 - 5.28 x10E6/uL [facility] - 01 Hgb 11.9 11.1 - 15.9 g/dL [facility] - 01 Hct 37.1 34.0 - 46.6 % [facility] - 01 MCV 104(H) 79 - 97 fL [facility] - 01 MCH 33.3(H) 26.6 - 33.0 pg [facility] - 01 MCHC 32.1 31.5 - 35.7 g/dL [facility] - 01 Rdw 13.5 11.7 - 15.4 % [facility] - 01 Platelets 223 150 - 450 x10E3/uL [facility] - 01 Neutrophils pct 57 Not Estab. % [facility] - 01 Lymphs pct 29 Not Estab. % [facility] - 01 Monocytes pct 12 Not Estab. % [facility] - 01 Eosinophils pct 1 Not Estab. % [facility] - 01 Basophil pct 1 Not Estab. % [facility] - 01 Neutrophil abs 2.7 1.4 - 7.0 x10E3/uL [facility] - 01 Lymphs (Absolute) 1.4 0.7 - 3.1 x10E3/uL [facility] - 01 Monocyte abs 0.6 0.1 - 0.9 x10E3/uL [facility] - 01 Eosinophils, abs 0.1 0.0 - 0.4 x10E3/uL [facility] - 01 Basophils, abs 0.0 0.0 - 0.2 x10E3/uL [facility] - 01 Immature Granulocytes 0 Not Estab. % [facility] - 01 Immature Grans (Abs) 0.0 0.0 - 0.1 x10E3/uL [facility] - 01 Blood 04/04/2024 11:4 9 AM ADZ WORKER 04/04/2024 Narrative [facility] - 04/05/2024 7:36 AM ADZ WORKER Performed at: ?? - [facility] [address] ??[id number] [employer]: John Lozoya PhD, Phone: ??[phone] Sylvia JONES LAB BLOOD ORDERABLES Final Result [facility] * (ABNORMAL) Comprehensive metabolic panel (04/04/2024 11:49 AM ADZ WORKER) Glucose 92 70 - 99 mg/dL [facility] - 01 BUN 14 8 - 27 mg/dL [facility] - 01 Creatinine, Serum 0.74 0.57 - 1.00 mg/dL [facility] - 01 eGFR 91 >59 mL/min/1.7 3 [facility] - 01 BUN/creat ratio 19 12 - 28 [facility] - 01 Sodium 140 134 - 144 mmol/L [facility] - 01 Potassium, sr 4.8 3.5 - 5.2 mmol/L [facility] - 01 Chloride 107(H) 96 - 106 mmol/L [facility] - 01 CO2 22 20 - 29 mmol/L [facility] - 01 Calcium 8.6(L) 8.7 - 10.3 mg/dL [facility] - 01 Protein, sr 5.6(L) 6.0 - 8.5 g/dL [facility] - 01 Albumin 4.0 3.9 - 4.9 g/dL [facility] - 01 Globulin, Total 1.6 1.5 - 4.5 g/dL [facility] - 01 Bilirubin, Total <0.2 0.0 - 1.2 mg/dL [facility] - 01 Alk phos 66 44 - 121 IU/L [facility] - 01 AST 26 0 - 40 IU/L [facility] - 01 ALT 25 0 - 32 IU/L [facility] - 01 Blood 04/04/2024 11:4 9 AM ADZ WORKER 04/04/2024 Narrative [facility] - 04/05/2024 7:36 AM ADZ WORKER Performed at: ??01 - [facility] [address] ??[id number] [employer]: John Lozoya PhD, Phone: ??[phone] us Sylvia JONES LAB BLOOD ORDERABLES Final Result [facility] - * Hemoglobin A1c (04/04/2024 11:49 AM ADZ WORKER) Hgb A1C 5.2 4.8 - 5.6 % [facility] - 01 Comment: ? Prediabetes: 5.7 - 6.4 ? Diabetes: >6.4 ? Glycemic control for adults with diabetes: <7.0 Blood 04/04/2024 11:4 9 AM ADZ WORKER 04/04/2024 Narrative [facility] - 04/05/2024 7:36 AM ADZ WORKER Performed at: ??01 - [facility] ??[id number] [employer]: John Lozoya PhD, Phone: ??[phone] Sylvia JONES LAB BLOOD ORDERABLES Final Result Performing Organization Address [facility] Co de Phone Number [facility] - 01 * Vitamin B12 (04/04/2024 11:49 AM ADZ WORKER) Pathologist [facility] Vitamin B12 559 232 - 1,245 pg/mL [facility] - 01 Blood 04/04/2024 11:4 9 AM ADZ WORKER 04/04/2024 Narrative [facility] - 04/05/2024 9:36 AM ADZ WORKER Performed at: ??01 - [facility] ??[id number] [employer]: John Lozoya PhD, Phone: ??[phone] Sylvia JONES LAB BLOOD ORDERABLES Final Result Performing Organization Address City/[facility]/ZIP Co de Phone Number [facility] - 01 * TSH (04/04/2024 11:49 AM ADZ WORKER) Pathologist [facility] TSH 1.390 0.450 - 4.500 uIU/mL [facility] - 01 Blood 04/04/2024 11:4 9 AM ADZ WORKER 04/04/2024 Narrative [facility] - 04/05/2024 9:36 AM ADZ WORKER Performed at: ??01 - [facility] [address] ??[id number] [employer]: John Lozoya PhD, Phone: ??[phone] Sylvia JONES LAB BLOOD ORDERABLES Final Result [facility] - 01 documented in this encounter Visit Diagnoses Diagnosis Annual physical exam- Primary Routine general medical examination at a health care facility Hypertension, essential Unspecified essential hypertension Fatigue, unspecified type Hyperglycemia Other abnormal glucose Mixed hyperlipidemia Breast cancer screening by mammogram Need for influenza vaccination Need for prophylactic vaccination and inoculation against influenza BMI 26.0-26.9,adult documented in this encounter Discontinued Medications Medication Sig Discontinue Reason Start Date End Da te gabapentin (NEURONTIN) 100 mg capsule Take 1 capsule (100 mg total) by mouth 2 (two) times a day Therapy completed 04/03/2023 03/23/2024 methylPREDNISolone (MEDROL DOSEPACK) 4 mg Dosepack follow package directions Therapy completed 02/24/2024 03/23/2024 FLUoxetine 10 mg capsule TAKE 1 CAPSULE(10 MG) BY MOUTH DAILY 10/21/2023 03/23/2024 ezetimibe (ZETIA) 10 mg tablet Take 1 tablet (10 mg total) by mouth daily Reorder 03/23/2024 documented as of this encounter Orders Immunization/Injection Count Last Ordered Date First Ordered Date FLU VACCINE 2023- TRI (6 M OS UP) PF - FLULAVAL/FLUARIX/FLUZONE 1 03/23/2024 documented in this encounter Care Teams Wet Cleaner Machine Relationship Specialty Start Date End Date Sylvia Dawson PA [address] [facility] [address] [place] [address] PCP - General Internal Medicine 01/05/20 Erica Rodrigues MD [address] [facility] [address] [place] [address] Radiation Oncologist Radiation Oncology 10/25/18 Gasper Kaba MD [address] [place] [address] Surgeon Surgical Oncology 10/25/18 Brandy Aguirre PROPERTY SITE MANAGER [address] [place] [address] Nurse Practitioner Certified Clinical Nurse Specialist 10/25/18 Jo-Ann Morrow, PhD [address] [place] [address] Nurse Practitioner Radiation Oncology 10/25/18 Christina Louis, COMBINE OPERATOR [address] [place] [address] Nurse Practitioner Medical Oncology 10/25/18 Jessy Adame MD [address] [facility] DEPT OPHTHALMOLOGY, [address] [place] [address] Consulting Physician Retina Ophthalmology 04/15/23 Harpal Carpio MD [address] [place] [address] Neurologist Neurology 04/15/23 Rossana Church DNP [address] [facility] [place] [address] Nurse Practitioner Nurse Practitioner 04/15/23 Zahida Kaplan PA [address] [facility], [address] [address] Physician Box Truck Owner Operator Physician Box Truck Owner Operator 04/15/23 Fadi Cook PA [address] [facility] [facility] SLEEP [facility], [facility] [address] [place] [address] Physician Box Truck Owner Operator Sleep Medicine 04/15/23 Harpal De León MD [address] [facility] [address] [place], [place] [id number] Kit Assembler Cardiology 04/15/23 Valorie Young MD [address] [facility] [facility] [address] [place] [address] Kit Assembler Cardiology 04/15/23 Patricia Martinez MD [address] [facility] DIV IM RHEUMATOLOGY, [facility] [address] [place] [address] Consulting Physician Rheumatology 04/15/23 documented as of this encounter
--- OUTSIDE RECORDS SUMMARY | 2024-04-24 05:47 | XMS_ITS | Encounter Summary ---
Author Organization [facility] Healthcare Address [address] [place] [address] Care Team Providers Care Carbon Printer Name Role Phone Erica Rodrigues MD Unavailable Gasper Kaba MD Unavailable Brandy Aguirre PICC NURSE Unavailable Jo-Ann Morrow PhD Unavailable [phone] Christina Louis ORTHOPEDIC PODIATRIST Unavailable Sylvia Dawson Primary Care Provider [phone] Jessy Adame MD Unavailable Harpal Carpio MD Unavailable [phone] [facility] Unavailable Zahida Kaplan Unavailable Fadi Cook Unavailable Harpal De León MD Unavailable Valorie Young MD Unavailable Patricia Martinez MD Unavailable [phone] Reason for Visit * Reason Comments Follow-up Encounter Details Date Type Department Care Team (Late st Contact Info) Description 10/21/2023 11:15 AM CDT Office Visit [facility] Medical Group Pulmonology [address] [place] [address] [place] [phone] Esme King, ORTHOPEDIC PODIATRIST [address] [place] [address] [place] [id number] Primary insomnia (Primary Dx); Obstructive sleep apnea Social History Tobacco Use Types Packs/Day Years [...] on file Legal Sex Female 3:42 AM OBSTETRICAL NURSE Gender Identity Not on file Sexual Orientation Not on file 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 Not on file Not on file Not on file documented as of this encounter Last Filed Vital Signs Vital Sign Reading Time Taken Comments Blood Pressure 118/84 10/21/2023 11:25 AM CDT Pulse 73 10/21/2023 11:25 AM CDT Temperature - - Respiratory Rate 18 10/21/2023 11:25 AM CDT Oxygen Saturation 96% 10/21/2023 11:25 AM CDT Inhaled Oxygen Concentration - - Weight 68 kg (150 lb) 10/21/2023 11:25 AM CDT Height 160 cm (5' 3 ) 10/21/2023 11:25 AM CDT Body Mass Index 26.57 10/21/2023 11:25 AM CDT documented in this encounter Ordered Prescriptions Prescription Sig Dispense Quantity Refills Last Filled Start Date End Date zolpidem (AMBIEN) 5 mg tabletIndications: Sleep-Onset Insomnia Take 1 tablet (5 mg total) by mouth nightly as needed for sleep 30 tablet 2 10/21/2023 documented in this encounter Progress Notes * Esme King NP - 10/21/2023 11:15 AM CDT Images from the original note were not included. Progress Note Patient: Yesika Denney ( - 1960) is a 63 y.o. female. Visit Date: 10/21/2023 Chief Complaint Patient presents with Follow-up History of Present Illness: This is follow-up after receiving the hypoglossal stimulating device/inspire. The patient has devices still being adjusted. She states she has to complete a nocturnal polysomnogram so the device can be evaluated on effectiveness. We attempted to use her casa on her phone, however the data was not transmitting. The patient states she is still having insomnia symptoms. She states she is dreaming. She denies snoring when she has a device on. She is daytime sleepiness, however she is not falling asleep inappropriate situations or while driving. The patient has dry mouth and states energy level is okay. She states that she is falling asleep but is waking up around 2:00 a.m. and unable to return to sleep for approximately 2 hours. She states she does not feel that she has getting into the deeperstages of sleep and not rested upon wakening. She continues cognitive behavior therapy for insomnia Past Medical History: Past Medical History: Diagnosis Date Autoimmune disease (CMS/HCC) ([facility]) Benign left breast lump 06/2002 biopsy showed fibrosis and hyperplasia Brain aneurysm Followed by Dr. Chaudhari: Every 3 years Breast cancer ([facility]) 2014 Invasive ductal carcinoma Cataract CME (cystoid macular edema), bilateral Depression Elevated cholesterol History of chemotherapy 2015 Breast cancer History of radiation therapy 2015 Right breast Hypertension Migraine Motion sickness sometimes on [place] Obstructive sleep apnea 06/19/2022 RA (rheumatoid arthritis) ([facility]) Surgical History: Past Surgical History: Procedure Laterality Date ANGIO SELECTIVE CAROTID PICC NURSE RIGHT Right 01/28/2023 ANGIO SELECTIVE INTERNAL CAROTID [...] LIGATION 02/2007 VITRECTOMY Right 09/23/2022 for CME Current Medications: Current Outpatient Medications Medication Sig Dispense Refill acetaminophen (TYLENOL) 325 [...] MG) BY MOUTH DAILY 90 tablet 2 fwhwhnwhkc-fwosqayjulldr-jobjuqpr-codeine (FIORICET WITH CODEINE) 35-944-26-30 mg per capsule Take 1 capsule by mouth every 6 (six) hours as needed for headaches 10 capsule 0 famotidine-Ca carb-mag hydrox (PEPCID COMPLETE) 10-800-165 mg chewable tablet Take 1 tablet by mouth daily as needed for heartburn FLUoxetine 10 mg capsule TAKE 1 CAPSULE(10 MG) BY MOUTH DAILY 90 capsule 1 folic acid (FOLVITE) 1 mg tablet TAKE 2 TABLETS(2000 MCG) BY MOUTH DAILY 180 tablet 3 gabapentin (NEURONTIN) 100 mg capsule Take 1 capsule (100 mg total) by mouth 2 (two) times a day 60capsule 1 hydroCHLOROthiazide (HYDRODIURIL) 12.5 mg tablet TAKE 1 [...] MOUTH WEEKLY ON THURSDAYS 96 tablet 2 multivitamin with minerals tablet Take 1 tablet by mouth every morning Nurtec ODT tablet,disintegrating sulfaSALAzine EN (AZULFIDINE EN) 500 mg EC tablet TAKE 2 TABLETS BY MOUTH TWICE DAILY 360 tablet 0 valACYclovir (VALTREX) 500 mg tablet Take 1 tablet (500 mg total) by mouth daily 90 tablet 1 vit J-E-xtrpdq-zinc-lutein (PreserVision Lutein) 226-90-0.8-5 mg capsule Take 1 tablet by mouth 2 (two) times a day zolpidem (AMBIEN) 5 mg tablet Take 1 tablet (5 mg total) by mouth nightly as needed for sleep 30 tablet 2 No current facility-administered medications for this visit. Allergies: Allergies Allergen Reactions Adhesive Hives Paper tape OK Cyclizine Other (See comments) and Hallucinations Marezine about 1982 Reaction: Urinary retention Family History: Family History Problem Relation Age of Onset [...] Neg Hx Pseudochol deficiency Neg Hx Social History: Social History Tobacco Use Smoking status: Never Passive exposure: Never Smokeless tobacco: Never Substance and Sexual Activity Drug use: Not Currently Comment: 2 drinks per month Sexual activity: Defer Partners: Male control/protection: Post-menopausal, Tubal Ligation Alcohol Use: Not At Risk (02/24/2023) AUDIT-C Frequency of Alcohol Consumption: Monthly or less Average Number of Drinks: 1 or 2 Frequency of Binge Drinking: Never Review of Systems: Review of Systems Constitutional: Positive for unexpected weight change. Negative for appetite change and fever. Gain HENT: Negative for rhinorrhea, sinus pressure, sinus pain, sore throat and tinnitus. Respiratory: Negative for cough, shortness of breath and wheezing. Cardiovascular: Negative for chest pain, palpitations and leg swelling. Gastrointestinal: Negative for abdominal pain, diarrhea, nausea and vomiting. Genitourinary: Negative for hematuria. Musculoskeletal: Positive for arthralgias, back pain and myalgias. Skin: Negative for color change. Allergic/Immunologic: Negative for environmental allergies and food allergies. Neurological: Negative for dizziness, light-headedness and headaches. Physical Exam: Vitals: 10/21/23 1125 BP: 118/84 BP Location: Left arm Patient Position: Sitting Pulse: 73 Resp: 18 SpO2: 96% Weight: 68 kg (150 lb) Height: 160 cm (5' 3 ) Physical Exam HENT: Head: Normocephalic and atraumatic. Eyes: Pupils: Pupils are equal, round, and reactive to light. Cardiovascular: Rate and Rhythm: Normal rate and regular rhythm. Pulmonary: Effort: Pulmonary effort is normal. Breath sounds: Normal breath sounds. Abdominal: General: Bowel sounds are normal. Palpations: Abdomen is soft. Musculoskeletal: General: Normal range of motion. Cervical back: Normal range of motion and neck supple. Skin: General: Skin is warm and dry. Neurological: Mental Status: She is alert and oriented to person, place, and time. Data Reviewed Images: No results found. Assessment and Plan: Diagnoses and all orders for this visit: Primary insomnia (Primary) Assessment & Plan: Due to continued symptoms, the patient will continue with cognitive behavior therapy for insomnia. I also gave the patient a low dose Ambien 5 mg nightly. We did discuss the risks of taking the Ambien such as side effects,respiratory depression, an increase of JOSE symptoms. Orders: - zolpidem (AMBIEN) 5 mg tablet; Take 1 tablet (5 mg total) by mouth nightly as needed for sleep Obstructive sleep apnea Assessment & Plan: The patient will continue with the hypoglossal stimulation device/inspire. She is going to completea nocturnal polysomnogram to determine effectiveness. The patient will also continue with positional therapy. Rendering Provider & Department: Esme King NP Cosigned by Douglas Acosta MD at 10/21/2023 12:56 PM CDT documented in this encounter Miscellaneous Notes * Assessment & Plan Note - Esme King NP - 10/21/2023 12:26 PM CDT Associated Problem(s): Primary insomnia Due to continued symptoms, the patient will continue with cognitive behavior therapy for insomnia. I also gave the patient a low dose Ambien 5 mg nightly. We did discuss the risks of taking the Ambien such as side effects,respiratory depression, an increase of JOSE symptoms. * Assessment & Plan Note - Esme King NP - 10/21/2023 12:25 PM CDT Associated Problem(s): Obstructive sleep apnea The patient will continue with the hypoglossal stimulation device/inspire. She is going to completea nocturnal polysomnogram to determine effectiveness. The patient will also continue with positional therapy. documented in this encounter Plan of Treatment Not on file documented as of this encounter Visit Diagnoses Diagnosis Primary insomnia- Primary Persistent disorder of initiating or maintaining sleep Obstructive sleep apnea Obstructive sleep apnea (adult) (pediatric) documented in this encounter Care Teams Carbon Printer Relationship Specialty Start Date End Date Sylvia Dawson PA [address] [place] [address] PCP - General Internal Medicine 01/05/20 Erica Rodrigues MD [address] [facility] [address] [place] [address] Radiation Oncologist Radiation Oncology 10/25/18 Gasper Kaba MD [address] [place] [address] Surgeon Surgical Oncology 10/25/18 Brandy Aguirre, PICC NURSE [address] [place] [address] Nurse Practitioner Certified Clinical Nurse Specialist 10/25/18 Jo-Ann Morrow, PhD [address] [place] [address] Nurse Practitioner Radiation Oncology 10/25/18 Christina Louis, ORTHOPEDIC PODIATRIST [address] [place] [address] Nurse Practitioner Medical Oncology 10/25/18 Jessy Adame MD [address] [facility], [address] [place] [address] Consulting Physician Retina Ophthalmology 04/15/23 Harpal Carpio MD [address] [place] [address] Neurologist Neurology 04/15/23 Rossana Church DNP [address] [place] [address] Nurse Practitioner Nurse Practitioner 04/15/23 Zahida Kaplan PA [address] DIV NEUROLOGY GENERAL, [address] [address] Physician Carpet Installer Helper Physician Carpet Installer Helper 04/15/23 Fadi Cook PA [address] DIV NEUROLOGY SLEEP MED, [address] [address] Physician Carpet Installer Helper Sleep Medicine 04/15/23 Hapral De León MD [address] [address] Quality Assurance Engineer Cardiology 04/15/23 Valorie Young MD [address] [facility] [address] [place] [address] Quality Assurance Engineer Cardiology 04/15/23 Patricia Martinez MD [address] IM RHEUMATOLOGY, [address] [address] Consulting Physician Rheumatology 04/15/23 documented as of this encounter
--- OUTSIDE RECORDS SUMMARY | 2024-04-24 05:47 | XMS_ITS | Encounter Summary ---
Author Organization [facility] Healthcare Address [address] [place] [address] Care Team Providers Care Die Cleaner Name Role Phone Erica Rodrigues MD Unavailable Gasper Kaba MD Unavailable Brandy Aguirre Unavailable [phone] Jo-Ann Morrow PhD Unavailable [phone] Christina Louis NP Unavailable [phone] Sylvia Dawson Primary Care Provider [phone] Jessy Adame MD Unavailable Harpal Carpio MD Unavailable Rossana Church DNP Unavailable Zahida Kaplan Unavailable Fadi Cook Unavailable [phone] Harpal De León MD Unavailable Valorie Young MD Unavailable Patricia Martinez MD Unavailable Encounter Details Date Type Department Care Team (Late st Contact Info) Description 04/04/2024 Telephone [facility] Physicians [address] [place] [address] Lizzie Green, HOSPICE EXECUTIVE DIRECTOR [address] [place] [address] Social History Tobacco Use Types Packs/Day Years [...] on file Legal Sex Female 3:42 AM RECOVERY OPERATOR HELPER Gender Identity Not on file Sexual Orientation Not on file 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 Thanks! VERY OPERATOR HELPER documented in this encounter Plan of Treatment Not on file documented as of this encounter Visit Diagnoses Not on filedocumented in this encounter Care Teams Die Cleaner Relationship Specialty Start Date End Date Sylvia Dawson PA [address] [facility] [address] [place] [address] PCP - General Internal Medicine 01/05/20 Erica Rodrigues MD [address] [place] [address] PL [address] [place] [address] Radiation Oncologist Radiation Oncology 10/25/18 Gasper Kaba MD [address] [place] [address] Surgeon Surgical Oncology 10/25/18 Brandy Aguirre, GASOLINE PUMP MECHANIC [address] [facility] [address] [place] [address] Nurse Practitioner Certified Clinical Nurse Specialist 10/25/18 Jo-Ann Morrow, PhD [address] [facility] [address] LL [address] [place] [address] Nurse Practitioner Radiation Oncology 10/25/18 Christina Louis, HOSPICE EXECUTIVE DIRECTOR [address] [facility] [address] [place] [address] Nurse Practitioner Medical Oncology 10/25/18 Jessy Adame MD [address] [facility] DEPT OPHTHALMOLOGY, [address] [place] [address] Consulting Physician Retina Ophthalmology 04/15/23 Harpal Carpio MD [address] [place] [address] Neurologist Neurology 04/15/23 Rossana Church DNP [address] [facility] [place] [address] Nurse Practitioner Nurse Practitioner 04/15/23 Zahida Kaplan PA [address] [facility] NEUROLOGY [facility], [facility] [address] [place] [address] Physician Corporate Travel Agent Physician Corporate Travel Agent 04/15/23 Fadi Cook PA [address] [facility] NEUROLOGY SLEEP [facility], [facility] [address] [place] [address] Physician Corporate Travel Agent Sleep Medicine 04/15/23 Harpal De León MD [address] [facility] [address] [place] [address] Communications Intern Cardiology 04/15/23 Valorie Young MD [address] [facility] [address] [facility] [place] [address] Communications Intern Cardiology 04/15/23 Patricia Martinez MD [address] [facility] RHEUMATOLOGY, [address] [address] Consulting Physician Rheumatology 04/15/23 documented as of this encounter
--- OUTSIDE RECORDS SUMMARY | 2024-04-24 05:47 | XMS_ITS | Encounter Summary ---
Author Organization [facility] Address [address] [place] [address] Phone Care Team Providers Care Director Of Global Sales Name Role Phone Erica Rodrigues MD Unavailable Gasper Kaba MD Unavailable Brandy Aguirre ROBOTIC TOY INVENTOR Unavailable Jo-Ann Morrow PhD Unavailable Christina Louis TAPE LIBRARIAN Unavailable [phone] Sylvia Dawson Primary Care Provider [phone] Jessy Adame MD Unavailable Harpal Carpio MD Unavailable [phone] Rossana Church DNP Unavailable Zahida Kaplan Unavailable Fadi Cook Unavailable Harpal De León MD Unavailable [phone] Valorie Young MD Unavailable Patricia Martinez MD Unavailable Reason for Visit * Reason Onset Date Comments AUTHORIZATION STATUS 12/02/2023 Encounter Details Date Type Department Care Team (Late st Contact Info) Description 12/02/2023 Telephone [facility] Scheduling [address] [place] [address] Luis Pereyra BS AUTHORIZATION STATUS Social History Tobacco Use Types Packs/Day Years [...] on file Legal Sex Female 3:42 AM 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 She received a letter indicating it was denied. I followed up with pre-cert team and I am waiting to hear back on the status of that. Keeping pt in the loop as I have more information. documented in this encounter Plan of Treatment Not on file documented as of this encounter Visit Diagnoses Not on filedocumented in this encounter Care Teams Director Of Global Sales Relationship Specialty Start Date End Date Sylvia Dawson PA [address] [facility] [address] [place] [address] PCP - General Internal Medicine 01/05/20 Erica Rodrigues MD [address] [facility] [address] [facility] [address] [place] [address] Radiation Oncologist Radiation Oncology 10/25/18 Gasper Kaba MD [address] [facility] [address] [facility] [address] [place] [address] Surgeon Surgical Oncology 10/25/18 Brandy Aguirre, ROBOTIC TOY INVENTOR [address] [facility] [address] [facility] [address] [place] [address] Nurse Practitioner Certified Clinical Nurse Specialist 10/25/18 Jo-Ann Morrow, PhD [address] [facility] [address] [place] [address] Nurse Practitioner Radiation Oncology 10/25/18 Christina Loius, TAPE LIBRARIAN [address] [facility] [address] [facility] [address] [place] [address] Nurse Practitioner Medical Oncology 10/25/18 Jessy Adame MD [address] [facility] DEPT OPHTHALMOLOGY, [address] [place] [address] Consulting Physician Retina Ophthalmology 04/15/23 Harpal Carpio MD [address] [place] [address] Neurologist Neurology 04/15/23 Rossana Church DNP [address] [facility] [place] [address] Nurse Practitioner Nurse Practitioner 04/15/23 Zahida Kaplan PA [address] [facility] DIV NEUROLOGY [facility], [address] [address] Physician Exerciser Horse Physician Exerciser Horse 04/15/23 Fadi Cook PA [address] [facility] NEUROLOGY SLEEP [facility], [address] [address] Physician Exerciser Horse Sleep Medicine 04/15/23 Harpal De León MD [address] [facility] [address] [facility] [address] [place], [place] [address] Boilers And Pressure Vessels Inspector Cardiology 04/15/23 Valorie Young MD [address] [place] [address] Boilers And Pressure Vessels Inspector Cardiology 04/15/23 Patricia Martinez MD [address] [facility] DIV IM RHEUMATOLOGY, [address] [address] Consulting Physician Rheumatology 04/15/23 documented as of this encounter
--- OUTSIDE RECORDS SUMMARY | 2024-04-24 05:47 | XMS_ITS | Encounter Summary ---
Author Organization [facility] [email or web address] of [facility] Address [address] [place] [address] Phone Care Team Providers Care Scallop Cutter Machine Name Role Phone Erica Rodrigues MD Unavailable Gasper Kaba MD Unavailable Brandy Aguirre PROCUREMENT COORDINATOR Unavailable Jo-Ann Morrow PhD Unavailable Christina Louis FOOD STYLIST Unavailable [phone] Sylvia Dawson Primary Care Provider [phone] Jessy Adame MD Unavailable Harpal Carpio MD Unavailable Rossana Church DNP Unavailable Zahida Kaplan Unavailable Fadi Cook Unavailable Harpal De León MD Unavailable [phone] Valorie Young MD Unavailable Patricia Martinez MD Unavailable [phone] Reason for Visit * Sleep Medicine (Routine) - Closed Specialty Diagnoses / Procedures Referred By Contac t Referred To Contact Diagnoses JOSE (obstructive sleep apnea) S/P placement of hypoglossal nerve stimulator Procedures PSG-Sleep Provider Use Only Fadi Cook, KAREN [address] [place] [address] Phone: tel: fax: [facility] (All Locations) Referral ID Status Reason Start Date Expiration Date Visits Re quested Visits Authorized [id number] Closed 11/18/2023 04/12/2024 1 1 Encounter Details Date Type Department Care Team (Latest Contact Info) Description 03/30/2024 7:30 PM AXLE INSPECTOR Procedure visit [facility] Neuro Sleep [address] [facility] [address] 6th [address] [place] [id number] JOSE (obstructive sleep apnea); S/P placement of hypoglossal nerve stimulator Social [...] on file Legal Sex Female 3:42 AM AXLE INSPECTOR Gender Identity Not on file Sexual Orientation Not on file 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 file Not on file Not on file documented as of this encounter Last Filed Vital Signs Vital Sign Reading Time Taken Comments Blood Pressure 145/87 03/30/2024 7:48 PM AXLE INSPECTOR Pulse 63 03/30/2024 7:48 PM AXLE INSPECTOR Temperature 36.6 ??C (97.9 ??F) 03/30/2024 7:48 PM CS T Respiratory Rate - - Oxygen Saturation 97% 03/30/2024 7:48 PM AXLE INSPECTOR Inhaled Oxygen Concentration - - Weight 68 kg (150 lb) 03/30/2024 7:48 PM AXLE INSPECTOR Height 160 cm (5' 3 ) 03/30/2024 7:48 PM AXLE INSPECTOR Body Mass Index 26.57 03/30/2024 7:48 PM AXLE INSPECTOR documented in this encounter Progress Notes * Xavier Bird MD - 03/30/2024 7:30 PM CSTAssociated Order(s): PSG- Sleep Provider Use Only Pre-Procedure Diagnose(s): JOSE (obstructive sleep apnea); S/P placement of hypoglossal nerve stimulator Post-Procedure Diagnose(s): JOSE (obstructive sleep apnea); S/P placement of hypoglossal nerve stimulator PSG-Sleep Provider Use Only Date/Time: 03/30/2024 10:00 PM Performed by: Xavier Bird MD Authorized by: Fadi Cook PA RE: Yesika Denney : 1960 STEVEN: 03/30/2024 INSPIRE TITRATION Clinical History: Yesika Denney [age] year old female with PMH significant for bilateral ICA dissection s/p stent,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 She was initially diagnosed on home sleep test on May 06, 2022 with an overall 4% AHI of 42.8, supine AHI 43.7, lateral AHI of 40.1 and O2 maria teresa of 87%. Hypoglossal nerve stimulator was implanted in April 2023. At the time home sleep test on 06/15/2023 showed a 4% AHI of 6.3, supine AHI 5.8, lateral AHI of 5.7. Height: 63.0 inches, Weight: 150.0 lb, BMI: 26.6 kg/m??, Neck Circumference: 11.0 inches Polysomnographic Findings: Unless otherwise noted, polysomnogram was recorded and scored in accordance with recommended parameters as outlined in the AASM Manual for the Scoring of Sleep and Associated Events, Version 3.0. Hypopneas were scored 1) in accordance with recommended (3%) parameters as outlined in Chapter VIII, Part 1: Rules for Adults, Category D, Section 1A, defined by 3% oxygen desaturation or arousal in addition to reduction in flow, and 2) additionally scored by acceptable (4%) parameters as outlined in Chapter VIII, Part 1: Rules for Adults, Category D, Section 1B, defined by 4% oxygen saturation in addition to reduction in flow. During all night polysomnography, the patient slept for 382 minutes out of 491 minutes in bed. Lights Out occurred at 21:55 and Lights On occurred at 06:06. Sleep latency was 28 minutes and REM latency was 344.0 minutes. Patient experienced a sleep efficiency of 77.8 %. EMG monitoring of the tibialis anterior muscle revealed 31.1 periodic leg movements per hour of sleep and these resulted in 1.6 arousals per hour. There were 9.3 arousals per hour of sleep for no apparent reason. EKG monitoring revealed sinus rhythm. INSPIRE Findings: Patient arrived with an incoming amplitude of 1.4 volts. Incoming control range was 1 volts to 2 volts. Adherence since last visit was 90 hours per week. Inspire settings from 1.0 volts to 1.4 volts were tested. A setting of 1.4 volts was found to be the minimum therapeutic amplitude (MTA). Recording at this setting continued for 46 minutes of sleep. The patient slept in the lateral position. Useof this setting resulted in the appearance of consolidated sleep, with 0.0 minutes of REM sleep recorded. At this setting, the patient experienced 13 arousals without apparent cause per hour of sleep. At this setting, the patient had a 3% AHI of 3.9 events per hour of sleep, a 4% AHI of 2.6 events per hour of sleep, a baseline oxygen saturation of 90-92%, and desaturations of 88- 90% during the respiratory events. At 1.2 volts the overall 4% AHI was 1.0. The 4% supine AHI was 8.6 and the lateralAHI was 0.2. The patient spent 0.2 minutes with SaO2 less than 89%. Interpretation: Titration of Inspire documented that this is an effective treatment for the patient's obstructive sleep apnea, with a Minimum Therapeutic Amplitude of 1.2 to 1.4 volts. Results were discussed with the patient. Diagnosis: Obstructive sleep apnea G 47.33 Accredited Scorer: Adeel Elkins I attest that I have reviewed this polysomnogram epoch by epoch, in accordance with AASM standards. Xavier Bird M.D., Ph.D Admissions Rn Department of Neurology [facility] INSPECTOR documented in this encounter Plan of Treatment Not on file documented as of this encounter Procedures Procedure Name Priority Date/Time Associated Diagnosis Comments PSG (COMPLEX) Routine 03/30/2024 10:00 PM AXLE INSPECTOR JOSE (obstructive sleep apnea) S/P placement of hypoglossal nerve stimulator documented in this encounter Results * PSG (COMPLEX) (03/30/2024 10:00 PM AXLE INSPECTOR) Narrative Xavier Bird MD - 03/30/2024 10:00 PM AXLE INSPECTOR Xavier Bird MD ? 03/31/2024 ??2:34 PM PSG-Sleep Provider Use Only Date/Time: 03/30/2024 10:00 PM Performed by: Xavier Bird MD Authorized by: Fadi Cook PA ?? us Fadi [facility] ORDERABLES Fin al Result documented in this encounter Visit Diagnoses Diagnosis JOSE (obstructive sleep apnea) Obstructive sleep apnea (adult) (pediatric) S/P placement of hypoglossal nerve stimulator documented in this encounter Care Teams Scallop Cutter Machine Relationship Specialty Start Date End Date Sylvia Dawson PA [address] [place] [address] PCP - General Internal Medicine 01/05/20 Erica Rodrigues MD [address] [facility] [address] [place] [address] Radiation Oncologist Radiation Oncology 10/25/18 Gasper Kaba MD [address] [place] [address] Surgeon Surgical Oncology 10/25/18 Brandy Aguirre, PROCUREMENT COORDINATOR [address] [facility] [address] [place] [address] Nurse Practitioner Certified Clinical Nurse Specialist 10/25/18 Jo-Ann Morrow, PhD [address] [facility] [address] [place] [address] Nurse Practitioner Radiation Oncology 10/25/18 Christina Louis, FOOD STYLIST [address] [facility] [address] [place] [address] Nurse Practitioner Medical Oncology 10/25/18 Jessy Adame MD [address] [facility]OLOGY, [address] [place] [address] Consulting Physician Retina Ophthalmology 04/15/23 Harpal Carpio MD [address] [place] [address] Neurologist Neurology 04/15/23 Rossana Church DNP [address] [facility] [place] [address] Nurse Practitioner Nurse Practitioner 04/15/23 Zahida Kaplan PA [address] DIV NEUROLOGY GENERAL, [address] [address] Physician Counter Cutter Physician Counter Cutter 04/15/23 Fadi Cook PA [address] DIV NEUROLOGY SLEEP MED, [address] [address] Physician Counter Cutter Sleep Medicine 04/15/23 Harpal De León MD [address] [place] [address] Air Export Operations Agent Cardiology 04/15/23 Valorie Young MD [address] [facility] [address] [place] [address] Air Export Operations Agent Cardiology 04/15/23 Patricia Martinez MD [address] [facility] [address] DIV IM RHEUMATOLOGY, [facility] [address] [place] [address] Consulting Physician Rheumatology 04/15/23 documented as of this encounter
--- OUTSIDE RECORDS SUMMARY | 2024-04-24 05:47 | XMS_ITS | Encounter Summary ---
Author Organization [facility] Address [address] [place] [address] Care Team Providers Care Treasury Representative Name Role Phone Erica Rodrigues MD Unavailable Gasper Kaba MD Unavailable Brandy Aguirre INTERIOR PAINTER Unavailable Jo-Ann Morrow PhD Unavailable Christina Louis FIBERGLASS PRODUCT TESTER Unavailable [phone] Sylvia Dawson Primary Care Provider [phone] Jessy Adame MD Unavailable Harpal Carpio MD Unavailable Rossana Church [facility] Unavailable Zahida Kaplan Unavailable Fadi Cook Unavailable Harpal De León MD Unavailable Valorie Young MD Unavailable Patricia Martinez MD Unavailable Reason for Visit * Reason Comments Follow-up Encounter Details Date Type Department Care Team (Late st Contact Info) Description 09/02/2023 3:15 PM [address]T Office [address] 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 Not on file Not on file documented as of this encounter Last Filed Vital Signs Vital Sign Reading Time Taken Comments Blood Pressure 117/78 09/02/2023 3:15 PM CDT Pulse 62 09/02/2023 3:15 PM CDT Temperature 36.7 ??C (98.1 ??F) 09/02/2023 3:15 PM CD T Respiratory Rate 18 09/02/2023 3:15 PM CDT Oxygen Saturation 95% 09/02/2023 3:15 PM CDT Inhaled Oxygen Concentration - - Weight 66.7 kg (147 lb) 09/02/2023 3:15 PM CDT Height 160 cm (5' 3 ) 09/02/2023 3:15 PM CDT Body Mass Index 26.04 09/02/2023 3:15 PM CDT documented in this encounter Progress Notes * Douglas Acosta MD - 09/02/2023 3:15 PM CDT Images from the original note were not included. Progress Note Patient: Yesika Denney ( - 1960) is a 63 y.o. female. Visit Date: 09/02/2023 History of Present Illness: The patient is a 63-year-old female that returns here for evaluation of her insomnia. She did have an inspire device placed and an in-lab nocturnal polysomnogram has been scheduled through the [facility] sleep Clinic for further evaluation. She states that she developed insomnia about 1 year ago and seemed to correlate with menopausal symptoms. She has been on a variety of sleeping medications to include trazodone, Lunesta, Restoril, melatonin and CBD. She still has difficulty initiating and maintaining sleep at times. She normally retires between 9:00 p.m. and 9:15 p.m. and startsher day anywhere between 7:00 a.m. and 9:00 a.m.. Past Medical History: Past Medical History: Diagnosis Date Autoimmune disease (CMS/HCC) ([facility]) Benign left breast lump 06/2002 biopsy showed fibrosis and hyperplasia Brain aneurysm Followed by Dr. Chaudhari: Every 3 years Breast cancer ([facility]) 2014 Invasive ductal carcinoma Cataract CME (cystoid macular edema), bilateral Depression Elevated cholesterol History of chemotherapy 2015 Breast cancer History of radiation therapy 2014 Right breast Hypertension Migraine Motion sickness sometimes on [place] Obstructive sleep apnea 06/19/2022 RA (rheumatoid arthritis) ([facility]) Surgical History: Past Surgical History: Procedure Laterality Date ANGIO SELECTIVE CAROTID INTERIOR PAINTER RIGHT Right 01/28/2023 ANGIO SELECTIVE INTERNAL CAROTID [...] N/A 04/10/2015 RHINOPLASTY 1985 THYROIDECTOMY, PARTIAL Left 1998 Dr. Demetris Aguilar TONSILLECTOMY 1983 TUBAL LIGATION [...] MG) BY MOUTH DAILY 90 tablet 1 zchqxobyku-goupcrlhwhsxh-rhymyqsf-codeine (FIORICET WITH CODEINE) 25-026-33-30 mg per capsule Take 1 capsule by mouth every 6 (six) hours as needed for headaches 10 capsule 0 eszopiclone (LUNESTA) 2 mg tablet Take 1 tablet (2 mg total) by mouth daily Take immediately beforebedtime 30 tablet 5 ezetimibe (ZETIA) 10 mg tablet Take 1 tablet (10 mg total) by mouth daily 90 tablet 2 famotidine-Ca carb-mag hydrox (PEPCID COMPLETE) 10-800-165 mg chewable tablet Take 1 tablet by mouth daily as needed for heartburn FLUoxetine 10 mg tablet/capsule TAKE 1 CAPSULE(10 MG) BY MOUTH DAILY 90 capsule 1 folic acid (FOLVITE) 1 mg tablet Take 2 tablets (2,000 mcg total) by mouth daily (Patient taking differently: Take 2 tablets (2,000 mcg total) by mouth every morning) 180 tablet 3 gabapentin (NEURONTIN) 100 mg capsule Take 1 capsule (100 mg total) by mouth 2 (two) times a day 60capsule 1 lisinopriL (PRINIVIL,ZESTRIL) 40 mg tablet TAKE [...] BY MOUTH TWICE DAILY 360 tablet 0 temazepam (RESTORIL) 15 mg capsule Take 1 capsule (15 mg total) by mouth nightly as needed for sleep 30 capsule 5 traZODone (DESYREL) 50 mg tablet Take 1 tablet (50 mg total) by mouth nightly as needed for sleep 30 tablet 5 valACYclovir (VALTREX) 1 gram tablet Take 2 tabs (2000 mg) 2 times a days for 1 day. 30 tablet 1 vit L-G-amakhc-zinc-lutein (PreserVision Lutein) 226-90-0.8-5 mg capsule Take 1 tablet by mouth 2 (two) times a day hydroCHLOROthiazide (HYDRODIURIL) 12.5 mg tablet TAKE 1 TABLET(12.5 MG) BY MOUTH DAILY (Patient nottaking: Reported on 08/27/2023) 90 tablet 1 oxyCODONE (ROXICODONE) 5 mg immediate release tablet Take 1 tablet (5 mg total) by mouth every 4 (four) hours as needed for pain (Patient not taking: Reported on 06/16/2023) 10 tablet 0 No current facility-administered medications for this visit. [...] change. Negative for appetite change and fever. 10 lb weight gain HENT: Negative for rhinorrhea, sinus pressure, sinus pain, sore throat and tinnitus. Respiratory: Negative for cough, shortness of breath and wheezing. Cardiovascular: Negative for chest pain, palpitations and leg swelling. Gastrointestinal: Negative for abdominal pain, diarrhea and nausea. Genitourinary: Negative for hematuria. Musculoskeletal: Positive for arthralgias. Negative for back pain and myalgias. RA Skin: Negative for color change. Allergic/Immunologic: Negative for environmental allergies and food allergies. Neurological: Positive for light-headedness. Negative for dizziness. Physical Exam: Vitals: 09/02/23 1515 BP: 117/78 BP Location: Left arm Patient Position: Sitting Pulse: 62 Resp: 18 Temp: 36.7 ??C (98.1 ??F) TempSrc: Tympanic SpO2: 95% Weight: 66.7 kg (147 lb) Height: 160 cm (5' 3 ) Physical Exam Constitutional: Appearance: She is well-developed. HENT: Head: Normocephalic and atraumatic. Eyes: Pupils: [...] Diagnoses and all orders for this visit: Obstructive sleep apnea (Primary) Assessment & Plan: The patient had placement of the inspire device and a repeat nocturnal polysomnogram is pending at the sleep lab at [facility]. Primary insomnia Assessment & Plan: The patient presents with primary insomnia. We did discuss cognitive behavioral therapy associated with sleep restriction therapy. I did give her the 2 brochures their published by the [place] [employer] regarding understanding insomnia and also how to sleep better. I also recommended an exercise program. She will follow up here in 6 weeks to assess her progress. I did tell her itwas okay to continue with melatonin but then I would discontinue the CBD. Rendering Provider & Department: Douglas Acosta MD documented in this encounter Miscellaneous Notes * Assessment & Plan Note - Douglas Acosta MD - 09/02/2023 4:02 PM CDT Associated Problem(s): Obstructive sleep apnea The patient had placement of the inspire device and a repeat nocturnal polysomnogram is pending at the sleep lab at [facility]. * Assessment & Plan Note - Douglas Acosta MD - 09/02/2023 4:02 PM CDT Associated Problem(s): Primary insomnia The patient presents with primary insomnia. We did discuss cognitive behavioral therapy associated with sleep restriction therapy. I did give her the 2 brochures their published by the [place] [employer] regarding understanding insomnia and also how to sleep better. I also recommended an exercise program. She will follow up here in 6 weeks to assess her progress. I did tell her itwas okay to continue with melatonin but then I would discontinue the CBD. documented in this encounter Plan of Treatment Not on file documented as of this encounter Visit Diagnoses Diagnosis Obstructive sleep apnea- Primary Obstructive sleep apnea (adult) (pediatric) Primary insomnia Persistent disorder of initiating or maintaining sleep documented in this encounter Care Teams Treasury Representative Relationship Specialty Start Date End Date Sylvia Dawson PA [address] [facility] [address] [address] [place] [address] PCP - General Internal Medicine 01/05/20 Erica Rodrigues MD [address] [facility] [address] [place] [address] Radiation Oncologist Radiation Oncology 10/25/18 Gasper Kaba MD [address] [facility] [address] LL [facility] [address] [place] [address] Surgeon Surgical Oncology 10/25/18 Brandy Aguirre, INTERIOR PAINTER [address] [facility] [address] [facility] [address] [place] [address] Nurse Practitioner Certified Clinical Nurse Specialist 10/25/18 Jo-Ann Morrow, PhD [address] [facility] [address] [facility] [address] [place] [address] Nurse Practitioner Radiation Oncology 10/25/18 Christina Louis FIBERGLASS PRODUCT TESTER [address] [facility] [address] [facility] [address] [place] [address] Nurse Practitioner Medical Oncology 10/25/18 Jessy Adame MD [address] [facility]AL[facility]OLOGY, [address] [place] [address] Consulting Physician Retina Ophthalmology 04/15/23 Harpal Carpio MD [address] [place] [address] Neurologist Neurology 04/15/23 Rossana Church DNP [address] [place] [address] Nurse Practitioner Nurse Practitioner 04/15/23 Zahida Kaplan PA [address] [facility]UR[facility], [address] [address] Physician Transcript Clerk Physician Transcript Clerk 04/15/23 Fadi Cook PA [address] [facility] NEUROLOGY SLEEP [facility] [address] [place] [address] Physician Transcript Clerk Sleep Medicine 04/15/23 Harpal De León MD [address] [facility] [address] [place] [address] Laundry Machine Mechanic Cardiology 04/15/23 Valorie Young MD [address] [facility] [address] [place] [address] Laundry Machine Mechanic Cardiology 04/15/23 Patricia Martinez MD [address] [facility] DIV IM RHEUMATOLOGY, [facility] [address] [place] [address] Consulting Physician Rheumatology 04/15/23 documented as of this encounter
--- OUTSIDE RECORDS SUMMARY | 2024-04-24 05:47 | XMS_ITS | Encounter Summary ---
Author Organization [facility] Address [address] [place] [address] Phone Care Team Providers Care Chain Hoist Operator Name Role Phone Erica Rodrigues MD Unavailable Gasper Kaba MD Unavailable Brandy Aguirre BOARDING MACHINE OPERATOR Unavailable [phone] Jo-Ann Morrow PhD Unavailable Christina Louis SYSTEMS LEAD Unavailable [phone] Sylvia Dawson Primary Care Provider [phone] Jessy Adame MD Unavailable Harpal Carpio MD Unavailable Rossana Church DNP Unavailable Zahida Kaplan Unavailable Fadi Cook Unavailable [phone] Harpal De León MD Unavailable Valorie Young MD Unavailable Patricia Martinez MD Unavailable Reason for Visit * Reason Onset Date Comments Scheduling Appointments 09/16/2023 Encounter Details Date Type Department Care Team (Late st Contact Info) Description 09/16/2023 Telephone [facility] Ophthalmology [facility] [place] [address] No, Physician Scheduling Appointments Social History Tobacco Use Types Packs/Day Years [...] on file Legal Sex 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 I let the PT know that the communication was happening and we will will reach out to schedule PT says notes are in epic Pt [phone] documented in this encounter Plan of Treatment Not on file documented as of this encounter Visit Diagnoses Not on filedocumented in this encounter Care Teams Chain Hoist Operator Relationship Specialty Start Date End Date Sylvia Dawson PA [address] [facility] [address] [place] [address] PCP - General Internal Medicine 01/05/20 Erica Rodrigues MD [address] [place] [address] Radiation Oncologist Radiation Oncology 10/25/18 Gasper Kaba MD [address] [facility] [address] [place] [address] Surgeon Surgical Oncology 10/25/18 Brandy Aguirre, BOARDING MACHINE OPERATOR [address] [facility] [address] [place] [address] Nurse Practitioner Certified Clinical Nurse Specialist 10/25/18 Jo-Ann Morrow, PhD [address] [facility] [address] [place] [address] Nurse Practitioner Radiation Oncology 10/25/18 Christina Louis, SYSTEMS LEAD [address] [facility] [address] [place] [address] Nurse Practitioner Medical Oncology 10/25/18 Jessy Adame MD [address] [facility], [address] [place] [id number] Consulting Physician Retina Ophthalmology 04/15/23 Harpal Carpio MD [address] [place] [address] Neurologist Neurology 04/15/23 Rossana Church DNP [address] [facility] [place] [address] Nurse Practitioner Nurse Practitioner 04/15/23 Zahida Kaplan PA [address] NEUROLOGY GENERAL, [facility] [address] [place] [address] Physician Back Hoe Operator Physician Back Hoe Operator 04/15/23 Fadi Cook PA [address] DIV NEUROLOGY SLEEP MED, [facility] [address] [place] [address] Physician Back Hoe Operator Sleep Medicine 04/15/23 Harpal De León MD [address] [place] [address] Storage Management Consultant Cardiology 04/15/23 Valorie Young MD [address] [facility] [address] [place] [address] Storage Management Consultant Cardiology 04/15/23 Patricia Martinez MD [address] [facility] DIV IM RHEUMATOLOGY, [facility] [address] [place] [address] Consulting Physician Rheumatology 04/15/23 documented as of this encounter
--- OUTSIDE RECORDS SUMMARY | 2024-04-24 05:47 | XMS_ITS | Encounter Summary ---
Author Organization [facility] Healthcare Address [address] [place] [address] Care Team Providers Care Operations Examiner Name Role Phone Erica Rodrigues MD Unavailable Gasper Kaba MD Unavailable Brandy Aguirre Unavailable Jo-Ann Morrow PhD Unavailable Christina Louis NP Unavailable Sylvia Dawson Primary Care Provider [phone] Jessy Adame MD Unavailable Harpal Carpio MD Unavailable Rossana Church [facility] Unavailable Zahida Kaplan Unavailable Fadi Cook Unavailable Harpal De León MD Unavailable Valorie Young MD Unavailable Patricia Martinez MD Unavailable Reason for Referral * MRI/CAT/PET Scan (Routine) - Closed Specialty Diagnoses / Procedures Referred By Contac t Referred To Contact Radiology Diagnoses Cerebral aneurysm, nonruptured Procedures CTA Head Neck W WO Contrast Lizzie Green, POSTPARTUM NURSE [address] [place] [address] Phone: tel: fax: [address] [phone] Referral ID Status Reason Start Date Expiration Date Visits Re quested Visits Authorized [id number] Closed 03/21/2024 05/19/2024 1 1 UNTING POLICY CONSULTANT Reason for Visit * MRI/CAT/PET Scan (Routine) - Closed Specialty Diagnoses / Procedures Referred By Conternestina t Referred To Contact Radiology Diagnoses Cerebral aneurysm, nonruptured Procedures CTA Head Neck W WO Contrast Lizzie Green NP [address] [place] [id number] Phone: tel: fax: [address] [phone] Referral ID Status Reason Start Date Expiration Date Visits Re quested Visits Authorized [id number] Closed 03/21/2024 05/19/2024 1 1 Encounter Details Date Type Department Care Team (Latest Contact Info) Description 04/04/2024 8:33 AM ACCOUNTING POLICY CONSULTANT - 04/04/2024 11:59 PM ACCOUNTING POLICY CONSULTANT Hospital Encounter 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 04/10/2022 aspirin 81 mg enteric coated tablet Take 1 tablet (81 mg total) by mouth daily 90 tablet 3 05/28/2022 atenoloL (TENORMIN) 25 mg tablet TAKE 1 TABLET(25 MG) BY MOUTH DAILY 90 tablet 2 03/14/2024 butalbital-aceta minophen-caffein e-codeine (FIORICET WITH CODEINE) 11-018-87-30 mg per capsuleIndicatio ns:Nonintractabl e headache, unspecified chronicity pattern, unspecified headache type Take 1 capsule by mouth every 6 (six) hours as needed for headaches 10 capsule 04/12/2023 ezetimibe (ZETIA) 10 mg tablet Take 1 tablet (10 mg total) by mouth daily 90 tablet 3 03/23/2024 famotidine-Ca carb-mag hydrox (PEPCID COMPLETE) 10-800-165 mg chewable tabletIndication s:Heartburn Take 1 tablet by mouth daily as needed for heartburn FLUoxetine (PROzac) 20 mg capsule Take 1 capsule (20 mg total) by mouth daily 03/23/2024 folic acid (FOLVITE) 1 mg tablet TAKE 2 TABLETS(2000 MCG) BY MOUTH DAILY 180 tablet 3 09/03/2023 hydroCHLOROthiaz allegra (HYDRODIURIL) 12.5 mg tablet TAKE 1 TABLET(12.5 MG) BY MOUTH DAILY 90 tablet 1 03/19/2023 lisinopriL (PRINIVIL,ZESTRI L) 40 mg tabletIndication s:Hypertension, essential TAKE 1 TABLET(40 MG) BY MOUTH DAILY 90 tablet 4 07/23/2023 magnesium gluconate 200 mg tabletIndication s:hypomagnesemia Take 1 tablet (200 mg total) by mouth as needed sleep meclizine (ANTIVERT) 12.5 mg tablet Take 1 tablet (12.5 mg total) by mouth 3 (three) times a day as needed for dizziness 20 tablet 04/01/2023 methotrexate 2.5 mg tabletIndication s:autoimmune disease TAKE 8 TABLETS BY MOUTH WEEKLY ON THURSDAY 96 tablet 2 01/11/2024 multivitamin with minerals tabletIndication s:Vitamin Deficiency Prevention Take 1 tablet by mouth every morning Nurtec ODT tablet,disintegr ating Take 1 tablet (75 mg total) by mouth daily as needed (migraine) 8 tablet 2 02/12/2024 prednisoLONE acetate (PRED FORTE) 1 % ophthalmic suspension Administer 1 drop into both eyes 2 (two) times a day as needed (redness, pain, light sensitivity) 5 mL 11 03/28/2024 sulfaSALAzine EN (AZULFIDINE EN) 500 mg EC tablet TAKE 2 TABLETS BY MOUTH TWICE DAILY 360 tablet 02/22/2024 valACYclovir (VALTREX) 500 mg tabletIndication s:Chronic Suppression Take 1 tablet (500 mg total) by mouth daily 90 tablet 1 09/22/2023 vit K-N-bpdwii-zinc- lutein (PreserVision Lutein) 226-90-0.8-5 mg capsuleIndicatio ns:Eye support Take 1 tablet by mouth 2 (two) times a day zolpidem (AMBIEN) 5 mg tabletIndication s:Sleep-Onset Insomnia Take 1 tablet (5 mg total) by mouth nightly as needed for sleep 30 tablet 2 10/21/2023 5 documented as of this encounter Discharge Disposition Disposition Code Departure Means Destination Discharge to home or self care documented in this encounter Plan of Treatment Not on file documented as of this encounter Procedures Procedure Name Priority Date/Time Associated Diagnosis Comments CTA HEAD NECK W WO CONTRAST Schedule Routine, Read Routine (OP Routine) 04/04/2024 9:30 AM ACCOUNTING POLICY CONSULTANT Cerebral aneurysm, nonruptured documented in this encounter Results * CTA Head Neck W WO Contrast (04/04/2024 9:30 AM ACCOUNTING POLICY CONSULTANT) Anatomical Region Laterality Modality Head and Neck N/A Computed Tomogra phy 04/04/2024 11:3 0 AM ACCOUNTING POLICY CONSULTANT Impressions 04/04/2024 12:35 PM ACCOUNTING POLICY CONSULTANT 1. 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 ??Filling of the device neck is again noted. 2. Bilateral cervical internal carotid artery stents appear patent. Dictated by: Adonis Bhatti D.O. The radiology attending physician has personally reviewed this study, and had reviewed and/or edited this written report and agrees with it. Electronically signed by: Kaye Jc M.D. Narrative 04/04/2024 12:35 PM ACCOUNTING POLICY CONSULTANT EXAMINATION: 1. Computed tomography angiography (CTA) of the head without and with contrast 2. Computed tomography angiography (CTA) of the neck with contrast HISTORY: Anterior communicating artery aneurysm status post treatment. 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 TECHNIQUE: CT of the head was performed with images acquired from skull base to vertex without intravenous contrast. Computed tomographic angiography was then obtained from the aortic arch to the vertex following the uneventful administration of intravenous contrast. 3D images were generated on a dedicated workstation. Contrast information: 90 mL Optiray-350 COMPARISON: CT angiogram 05/21/2023. ??MRI brain 06/08/2023. FINDINGS: HEAD: Topogram demonstrates no lytic lesions or fractures. There is no acute intracranial hemorrhage. Ventricles are of normal size and morphology. No mass effect or midline shift is present. The koehler-white matter differentiation is normal. The visualized portions of the orbits are normal. The visualized portions of the mastoids are normal. The visualized portions of the paranasal sinuses are normal. No fractures are identified. ??Woven endobridge device is noted in an anterior communicating artery aneurysm. NECK: Inspire upper airway stimulation system is noted. ??5 mm right thyroid nodule is noted. ??Changes of left hemithyroidectomy. Scattered subcentimeter lymph nodes are seen in the neck. None are pathologically enlarged. The muscles of the neck are normal. Fascial planes are preserved and the deep spaces of the neck are normal. The visualized airway is widely patent. ??Multilevel mild degenerative changes of the cervical spine without high-grade stenosis. ??Mild atelectasis in the dependent portions of both lungs. CTA: Common origin of the left common carotid artery and innominate artery. The innominate artery and both subclavian arteries are normal in caliber. The common carotid arteries are normal in course and caliber with normal carotid bifurcations bilaterally. ??Minimal atherosclerosis at the carotid bifurcation without significant stenosis. ??Distal cervical internal carotid artery stents terminate within and just proximal to the petrous segments on the right and left respectively. 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 ??Redemonstrated woven endobridge device within an anterior communicating artery aneurysm. ??There is filling within the device neck, similar to most recent prior dated 05/21/2023. ?? No areas of atherosclerotic narrowing or filling defects are identified. ??The anterior and middle cerebral arteries are normal. The vertebral arteries are codominant. The basilar artery is normal. The posterior cerebral arteries are normal. Procedure Note Kaye Jc MD - 04/04/2024 EXAMINATION: 1. Computed tomography angiography (CTA) of the head without and with contrast 2. Computed tomography angiography (CTA) of the neck with contrast HISTORY: Anterior communicating artery aneurysm status post treatment. 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 TECHNIQUE: CT of the head was performed with images acquired from skull base to vertex without intravenous contrast. Computed tomographic angiography was then obtained from the aortic arch to the vertex following the uneventful administration of intravenous contrast. 3D images were generated on a dedicated workstation. Contrast information: 90 mL Optiray-350 COMPARISON: CT angiogram 05/21/2023. MRI brain 06/08/2023. FINDINGS: HEAD: Topogram demonstrates no lytic lesions or fractures. There is no acute intracranial hemorrhage. Ventricles are of normal size and morphology. No mass effect or midline shift is present. The koehler-white matter differentiation is normal. The visualized portions of the orbits are normal. The visualized portions of the mastoids are normal. The visualized portions of the paranasal sinuses are normal. No fractures are identified. Woven endobridge device is noted in an anterior communicating artery aneurysm. NECK: Inspire upper airway stimulation system is noted. 5 mm right thyroid nodule is noted. Changes of left hemithyroidectomy. Scattered subcentimeter lymph nodes are seen in the neck. None are pathologically enlarged. The muscles of the neck are normal. Fascial planes are preserved and the deep spaces of the neck are normal. The visualized airway is widely patent. Multilevel mild degenerative changes of the cervical spine without high-grade stenosis. Mild atelectasis in the dependent portions of both lungs. CTA: Common origin of the left common carotid artery and innominate artery. The innominate artery and both subclavian arteries are normal in caliber. The common carotid arteries are normal in course and caliber with normal carotid bifurcations bilaterally. Minimal atherosclerosis at the carotid bifurcation without significant stenosis. Distal cervical internal carotid artery stents terminate within and just proximal to the petrous segments on the right and left respectively. 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 Redemonstrated woven endobridge device within an anterior communicating artery aneurysm. There is filling within the device neck, similar to most recent prior dated 05/21/2023. No areas of atherosclerotic narrowing or filling defects are identified. The anterior and middle cerebral arteries are normal. The vertebral arteries are codominant. The basilar artery is normal. The posterior cerebral arteries are normal. IMPRESSION: 1. 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 Filling of the device neck is again noted. 2. Bilateral cervical internal carotid artery stents appear patent. Dictated by: Adonis Bhatti D.O. The radiology attending physician has personally reviewed this study, and had reviewed and/or edited this written report and agrees with it. Electronically signed by: Kaye Jc M.D. Lizzie Green NP IMG CT PROCEDURES Final Re sult documented in this encounter Visit Diagnoses Diagnosis Cerebral aneurysm, nonruptured documented in this encounter Administered Medications Inactive Administered Medications - up to 3 most recent administrations Medication Order MAR Action Action Date Dose Rate Site ioversoL (OPTIRAY 350) syringe 100 mL 100 mL, intravenous, Once in imaging, contrast, Starting on Thu04/04/24 at 0916, For 1 dose Contrast Given 04/04/2024 9:17 AM ACCOUNTING POLICY CONSULTANT 90 mL sodium chloride 0.9% flush 125 mL 125 mL, intravenous, Once in imaging, line care, Starting on Thu04/04/24 at 0916, For 1 dose Given 04/04/2024 9:17 AM ACCOUNTING POLICY CONSULTANT 90 mL documented in this encounter Care Teams Operations Examiner Relationship Specialty Start Date End Date Sylvia Dawson PA [address] [place] [address] PCP - General Internal Medicine 01/05/20 Erica Rodrigues MD [address] [place] [address] Radiation Oncologist Radiation Oncology 10/25/18 Gasper Kaba MD [address] [place] [address] Surgeon Surgical Oncology 10/25/18 Brandy Aguirre, CARINA [address] [place] [address] Nurse Practitioner Certified Clinical Nurse Specialist 10/25/18 Jo-Ann Morrow, PhD [address] [place] [address] Nurse Practitioner Radiation Oncology 10/25/18 Christina Louis, POSTPARTUM NURSE [address] [place] [address] Nurse Practitioner Medical Oncology 10/25/18 Jessy Adame MD [address] [facility] DEPT OPHTHALMOLOGY, [address] [place] [address] Consulting Physician Retina Ophthalmology 04/15/23 Harpal Carpio MD [address] [place] [address] Neurologist Neurology 04/15/23 Rossana Church DNP [address] [place] [address] Nurse Practitioner Nurse Practitioner 04/15/23 Zahida Kaplan PA [address] DIV NEUROLOGY GENERAL, [facility] [address] [place] [address] Physician Sectionizer Physician Sectionizer 04/15/23 Fadi Cook PA [address] DIV NEUROLOGY SLEEP MED, [facility] [address] [place] [address] Physician Sectionizer Sleep Medicine 04/15/23 Harpal De León MD [address] [place] [address] Airport Operations Manager Cardiology 04/15/23 Valorie Young MD [address] [facility] [address] [place] [address] Airport Operations Manager Cardiology 04/15/23 Patricia Martinez MD [address] IM RHEUMATOLOGY, [facility] [address] [place] [address] Consulting Physician Rheumatology 04/15/23 documented as of this encounter
--- OUTSIDE RECORDS SUMMARY | 2024-04-24 05:47 | XMS_ITS | Clinical Summary ---
Author Organization [facility] al Address [address] [place] [address] Care Team Providers Care Pre Billing Clinician Name Role Phone Erica Rodrigues MD Unavailable Gasper Kaba MD Unavailable Brandy Aguirre OCCUPATIONAL THERAPY DIRECTOR Unavailable Jo-Ann Morrow PhD Unavailable Christina Louis MANAGER BAKERY Unavailable [phone] Sylvia Dawson Primary Care Provider [phone] Jessy Adame MD Unavailable Harpal Carpio MD Unavailable Rossana Church DNP Unavailable Zahida Kaplan Unavailable Fadi Cook Unavailable Harpal De León MD Unavailable Valorie Young MD Unavailable Patricia Martinez MD Unavailable Allergies Active Allergy Reactions Criticality Noted Date Comments Adhesive Hives Medium Paper tape OK Cyclizine Other (See comments),Hallucinations Medium 09/04/2010 Marezine about 1981 Reaction: Urinary retention Medications multivitamin with minerals tabletIndicatio ns:Vitamin Deficiency Prevention Take 1 tablet by mouth every morning Active vit H-B-zdhcxc-zinc -lutein (PreserVision Lutein) 226-90-0.8-5 mg capsuleIndicati ons:Eye support Take 1 tablet by mouth 2 (two) times a day Active acetaminophen (TYLENOL) 325 mg tablet Take 2 tablets (650 mg total) by mouth every 6 (six) hours as needed for pain Do not exceed 4000 mg of acetaminophen in a 24 hour period. 2 Active aspirin 81 mg enteric coated tablet Take 1 tablet (81 mg total) by mouth daily 90 tablet 3 3 Active famotidine-Ca carb-mag hydrox (PEPCID COMPLETE) 10-800-165 mg chewable tabletIndicatio ns:Heartburn Take 1 tablet by mouth daily as needed for heartburn Active magnesium gluconate 200 mg tabletIndicatio ns:hypomagnesem ia Take 1 tablet (200 mg total) by mouth as needed sleep Active hydroCHLOROthia zide (HYDRODIURIL) 12.5 mg tablet TAKE 1 TABLET(12.5 MG) BY MOUTH DAILY 90 tablet 1 3 Active Additional Information Patient taking differently: 12.5 mg oral Daily PRN, for HTN, Reported on 03/24/2024 meclizine (ANTIVERT) 12.5 mg tablet Take 1 tablet (12.5 mg total) by mouth 3 (three) times a day as needed for dizziness 20 tablet 3 Active butalbital-acet aminophen-caffe ine-codeine (FIORICET WITH CODEINE) 90-894-86-30 mg per capsuleIndicati ons:Nonintracta ble headache, unspecified chronicity pattern, unspecified headache type Take 1 capsule by mouth every 6 (six) hours as needed for headaches 10 capsule 3 Active lisinopriL (PRINIVIL,ZESTR IL) 40 mg tabletIndicatio ns:Hypertension , essential TAKE 1 TABLET(40 MG) BY MOUTH DAILY 90 tablet 4 4 Active folic acid (FOLVITE) 1 mg tablet TAKE 2 TABLETS(2000 MCG) BY MOUTH DAILY 180 tablet 3 4 Active valACYclovir (VALTREX) 500 mg tabletIndicatio ns:Chronic Suppression Take 1 tablet (500 mg total) by mouth daily 90 tablet 1 4 Active zolpidem (AMBIEN) 5 mg tabletIndicatio ns:Sleep-Onset Insomnia Take 1 tablet (5 mg total) by mouth nightly as needed for sleep 30 tablet 2 4 025 Active methotrexate 2.5 mg tabletIndicatio ns:autoimmune disease TAKE 8 TABLETS BY MOUTH WEEKLY ON THURSDAY 96 tablet 2 4 Active Nurtec ODT tablet,disinteg rating Take 1 tablet (75 mg total) by mouth daily as needed (migraine) 8 tablet 2 4 Active sulfaSALAzine EN (AZULFIDINE EN) 500 mg EC tablet TAKE 2 TABLETS BY MOUTH TWICE DAILY 360 tablet 4 Active atenoloL (TENORMIN) 25 mg tablet TAKE 1 TABLET(25 MG) BY MOUTH DAILY 90 tablet 2 4 Active FLUoxetine (PROzac) 20 mg capsule Take 1 capsule (20 mg total) by mouth daily 4 Active ezetimibe (ZETIA) 10 mg tablet Take 1 tablet (10 mg total) by mouth daily 90 tablet 3 4 Active prednisoLONE acetate (PRED FORTE) 1 % ophthalmic suspension Administer 1 drop into both eyes 2 (two) times a day as needed (redness, pain, light sensitivity) 5 mL 11 4 Active Hospital, Clinic, or Other Facility Administered Medication Ordered Dose Route Frequency Start Date End Date Status methylPREDNISolone acetate (DEPO-medrol) injection 40 mgIndications:Trigger little finger of right hand 40 mg intra-artic Once 03/25/2024 03/25/2024 Ended Active Problems Problem Noted Date Diagnosed Date Need for influenza vaccination 04/03/2024 Assessment & Plan (04/03/2024 10:18 PM DUMPER BAILER OPERATOR): Flu vaccine updated in the office today Breast cancer screening by mammogram 04/03/2024 Assessment & Plan (04/03/2024 10:18 PM DUMPER BAILER OPERATOR): Mammogram order provided Trigger little finger of [...] the 2 brochures their published by the [employer] regarding understanding insomnia and also how to sleep better. I also recommended an exercise program. She will follow up here in 6 weeks to assess her progress. I did tell her it was okay to continue with melatonin but then I would discontinue the CBD. 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 Elmore, and I greatly [...] 04/12/2023 Assessment & Plan (04/12/2023 10:48 PM DUMPER BAILER OPERATOR): Patient noted different sized pupils in January. Has been seeing Dr. Adame as well as neurologist Dr. Carpio and patient still states she is not sure why this is occurring. Encouraged her to follow back up with Ophthalmology her retinal specialist. She would like to see neuro precision lens grinder apprentice for another opinion. Will place the referral to Dr. Al at [facility] Need for immunization against influenza 04/12/20 Assessment & Plan (04/12/2023 10:51 PM DUMPER BAILER OPERATOR): Flu vaccine updated in the office today BMI 26.0-26.9,adult 04/01/2023 Assessment & Plan (03/23/2024 1:54 PM DUMPER BAILER OPERATOR): Weight/BMI is in healthy range. Continue healthy lifestyle to maintain. Assessment & Plan (04/01/2023 3:05 PM DUMPER BAILER OPERATOR): Weight/BMI is in healthy range. Continue healthy lifestyle to maintain. Amaurosis fugax of right eye 03/12/2023 Assessment & Plan (03/16/2023 3:53 PM DUMPER BAILER OPERATOR): Notes episodes of superior vision loss, mainly OD, lasts for less than 10 min. History of R ant communicating aneurysm. Will communicate these symptoms with Dr. Moss. Addendum: [place] from MANAGER BAKERY Norma office - may be related to orthostatic [...] is pending at the sleep lab at [facility]. Assessment & Plan (04/12/2023 10:50 PM DUMPER BAILER OPERATOR): DIAGNOSIS: Obstructive sleep apnea PROCEDURE PERFORMED:(Roddy 03/20/23) Right hypoglossal nerve stimulator implantation Generator placement right chest wall Lead placement right intercostal muscle Patient continues to complain of nerve type pain in the area. She is requesting gabapentin. One hundred b.i.d. sent to pharmacy to trial. Reviewed risks benefits alternatives side effects and proper use Assessment & Plan (06/19/2022 12:05 PM DUMPER BAILER OPERATOR): Due to the patient feeling like the [...] placed. Assessment & Plan (03/16/2023 4:49 PM DUMPER BAILER OPERATOR): SP bilateral stenting in the setting of bilateral carotid artery dissection. Following with neurology. 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 Mom had bicuspid AV and aneurysm repair. Will message genetics, Dr. Young and Dr. Moss for consideration of work up for Elhers Danols, or other connective tissue disorder. ASA and statin. Assessment & Plan (05/04/2022 8:02 PM DUMPER BAILER OPERATOR): Continue per [facility] Chronic tension-type headache, not intractable 0 05/04/2022 Assessment & Plan (05/04/2022 8:04 PM DUMPER BAILER OPERATOR): Patient with chronic headaches prior to this surgery. These headaches have always responded to Fioricet. Encouraged to use Tylenol 1st line in breakthrough symptoms may use the Fioricet as needed. If patient's symptoms persist will consider referral to neuro for her headaches Aneurysm ([facility]) 04/09/2022 Overview (04/12/2023): erebral artery aneurysm - [...] acute Assessment & Plan (04/12/2023 10:48 PM DUMPER BAILER OPERATOR): Continue per Neurology. Assessment & Plan (01/29/2023 [...] genetic testing and will discuss with our director enterprise sales whether a referral to Genetics or to them would be optimal Annual physical exam 02/28/2022 Assessment & Plan (04/03/2024 10:17 PM DUMPER BAILER OPERATOR): Encouraged healthy lifestyle, good nutrition and exercise. Encouraged Calcium and Vitamin D and weight bearing exercise for bone health. Reviewed immunizations Reviewed age appropirate screenings. Assessment & Plan (04/12/2023 10:50 PM DUMPER BAILER OPERATOR): Encouraged healthy lifestyle, good nutrition and exercise. Encouraged Calcium and Vitamin D and weight bearing exercise for bone health. Reviewed immunizations Reviewed age appropirate screenings. Assessment & Plan (03/01/2022 7:30 PM DUMPER BAILER OPERATOR): Encouraged healthy lifestyle, good nutrition and exercise. Encouraged Calcium and Vitamin D and weight bearing exercise for bone health. Reviewed immunizations Reviewed age appropirate screenings. Recurrent cold sores 02/28/2022 Assessment & Plan (03/01/2022 7:30 PM DUMPER BAILER OPERATOR): Continue Valtrex p.r.n. for cold sores Hyperglycemia 02/28/2022 Assessment & Plan (04/03/2024 10:17 PM DUMPER BAILER OPERATOR): Pre-diabetes/hyperglycemia is a precursor to Dm. Stressed importance of working on diet (decrease your simple sugars and one carbohydrate with each meal) and increase you exercise to achieve weight loss and this will help prevent you from progressing to diabetes. Assessment & Plan (03/01/2022 7:30 PM DUMPER BAILER OPERATOR): Pre-diabetes/hyperglycemia is a precursor to Dm. Stressed [...] 08/19/2021 Assessment & Plan (04/29/2023 4:02 PM DUMPER BAILER OPERATOR): She is now off durezol completely. There is no cystoid macular edema (CME) today both eyes (OU). There are likely lamellar changes that have remained stable. Recommend observation. Assessment & Plan (03/12/2023 9:51 AM DUMPER BAILER OPERATOR): She is currently on durezol qid right [...] proceed. Assessment & Plan (05/15/2022 10:23 AM DUMPER BAILER OPERATOR): Currently off durezol completely since 05/04. OCT [...] eye. Assessment & Plan (03/27/2022 12:21 PM DUMPER BAILER OPERATOR): Currently on durezol qid left eye (OS) [...] dosing. Assessment & Plan (03/12/2022 9:08 AM DUMPER BAILER OPERATOR): She is happy with the lack of [...] PFAT Assessment & Plan (02/26/2022 8:53 AM DUMPER BAILER OPERATOR): She is happy with the lack of [...] PFAT Assessment & Plan (02/19/2022 9:05 AM DUMPER BAILER OPERATOR): One week status post vitrectomy, capsulectomy to [...] activity. Assessment & Plan (02/17/2022 11:11 AM DUMPER BAILER OPERATOR): Less than 1 week following vitrectomy for [...] CDT): This is a patient of Dr. Adame'reece who is undergoing treatment for CME OU [...] She would like to transfer care to [facility] as her other doctors are [...] and ball the foot. Will refer to burn center nurse for further evaluation. Advise could try making a donut out of mole skin to create protection while waiting to take the pressure off of that area. Breast mass 04/02/2021 Moderate episode of recurrent major depressive d isorder 02/27/2021 Assessment & Plan (04/12/2023 10:48 PM DUMPER BAILER OPERATOR): Stable. Patient would like to try to [...] mg Assessment & Plan (02/27/2021 11:34 PM DUMPER BAILER OPERATOR): Continue Prozac 20 mg Fatigue 08/22/2020 Assessment & Plan (04/03/2024 10:17 PM DUMPER BAILER OPERATOR): Probably multifactorial. Check labs and followup to re-evaluate Assessment & Plan (03/01/2022 7:28 PM DUMPER BAILER OPERATOR): Probably multifactorial. Check labs and followup to [...] 06/11/2020 Assessment & Plan (06/11/2020 11:25 AM DUMPER BAILER OPERATOR): Patient directed to er for further evaluation and treatment. to drive. Cough 06/11/2020 Assessment & Plan (06/11/2020 11:25 AM DUMPER BAILER OPERATOR): Patient directed to er for further evaluation and treatment. to drive. Hypertension, essential 06/04/2020 Assessment & Plan (04/03/2024 10:17 PM DUMPER BAILER OPERATOR): Bp is stable/in acceptable range for any co-morbidities. Encouraged to limit sodium intake and exercise for weight control. Continue lisinopril 40 and atenolol 25 hydrochlorothiazide 12.5 Assessment & Plan (03/16/2023 4:47 PM DUMPER BAILER OPERATOR): Controlled, no additional recs. Lisinopril 40 mg daily, atenolol 25 mg daily and HCTZ 12.5 mg PRN. She takes this approximately once a week from her notes. Dr. Young in 6 months. Assessment & Plan (03/01/2022 7:28 PM DUMPER BAILER OPERATOR): Bp is stable/in acceptable range for any [...] atenolol Assessment & Plan (02/27/2021 11:34 PM DUMPER BAILER OPERATOR): Bp is stable/in acceptable range for any [...] appointment Assessment & Plan (06/04/2020 9:39 PM DUMPER BAILER OPERATOR): Bp is in low range for any [...] pneumonia Assessment & Plan (06/04/2020 9:40 PM DUMPER BAILER OPERATOR): 05/07/2020 - positive. Hospitalized 05/18 - 05/23 for pneumonia Atrial tachycardia 03/13/2020 Assessment & Plan (06/04/2020 9:38 PM DUMPER BAILER OPERATOR): bp has been low since hospitalization. Holding the lisinopril and still low. Will decrease the atenolol to 25mg daily and monitor closely as uses for tachy. Mixed hyperlipidemia 01/06/2020 Assessment & Plan (04/03/2024 10:17 PM DUMPER BAILER OPERATOR): Encouraged patient to follow low fat/low chol diet like the Mediterranean diet. Increase good fats in the diet. Increase exercise. Monitor labs as needed. Continue Zetia Assessment & Plan (04/12/2023 10:50 PM DUMPER BAILER OPERATOR): Encouraged patient to follow low fat/low chol diet like the Mediterranean diet. Increase good fats in the diet. Increase exercise. Monitor labs as needed. Continue Zetia Assessment & Plan (03/16/2023 4:48 PM DUMPER BAILER OPERATOR): LDL 91 in February 2023. Zetia 10 mg daily. Assessment & Plan (05/04/2022 10:24 AM DUMPER BAILER OPERATOR): Encouraged patient to follow low fat/low chol [...] to discuss further. Prefers Dr. Varghese at [facility] Will make referral. Assessment & Plan (03/01/2022 7:27 PM DUMPER BAILER OPERATOR): Insert hyperlipidemia patient is still not interested [...] treatment Assessment & Plan (02/27/2021 11:33 PM DUMPER BAILER OPERATOR): Encouraged patient to follow fat/low chol diet [...] needed. Assessment & Plan (02/26/2020 4:03 PM DUMPER BAILER OPERATOR): Encouraged patient to follow fat/low chol diet [...] (11/08/2018): Added automatically from request for surgery [id number] Diplopia 03/16/2018 Assessment & Plan (03/16/2018 12:45 PM DUMPER BAILER OPERATOR): This may be related to ocular migraine [...] 07/24/2015 Assessment & Plan (04/12/2023 10:48 PM DUMPER BAILER OPERATOR): Continue per Rheumatology. She is currently on [...] symptoms. Assessment & Plan (03/01/2022 7:27 PM DUMPER BAILER OPERATOR): Continue per Rheumatology. Continue with Plaquenil methotrexate and sulfasalazine Assessment & Plan (08/26/2021 10:12 AM CDT): Continue per rheumatoid Assessment & Plan (02/27/2021 11:32 PM DUMPER BAILER OPERATOR): Continue per Rheumatology Assessment & Plan (09/20/2020 [...] response. Assessment & Plan (06/04/2020 9:39 PM DUMPER BAILER OPERATOR): Continue per Rheum. Monitor sxs. May flair due to medication holiday Assessment & Plan (03/21/2020 9:36 AM DUMPER BAILER OPERATOR): Today she presents with low disease activity [...] steroids. Assessment & Plan (02/28/2019 10:47 AM DUMPER BAILER OPERATOR): She is clinically she is doing very [...] today. Assessment & Plan (03/16/2018 12:44 PM DUMPER BAILER OPERATOR): Clinically she has low disease activity today. [...] 01/25/2015 Assessment & Plan (04/12/2023 10:50 PM DUMPER BAILER OPERATOR): Patient consulted with Dr. Carpio neurologist in [place] for her headaches. He is offered multiple [...] 08/20/2011 Assessment & Plan (03/01/2022 7:26 PM DUMPER BAILER OPERATOR): Patient experiences migraines. Seems to trigger with weather changes. Requests a refill of the Fioricet with codeine as it seems to help. Will send short supply to pharmacy. Disorder of binocular movement 06/10/2011 Visual discomfort 06/10/2011 Cerebral arterial aneurysm 10/24/2010 Assessment & Plan (03/01/2022 7:26 PM DUMPER BAILER OPERATOR): Continue monitor by MRA. Per patient there has been some change Following with Dr. Moss Awacirilo recommendation Bronchiolitis Resolved Problems Problem Noted Date Diagnosed Date Resolved Date BMI 24.0-24.9, adult 04/22/2022 023 Assessment & Plan (04/22/2022 1:06 PM DUMPER BAILER OPERATOR): Weight/BMI is in healthy range. Continue healthy lifestyle to maintain. Snoring 03/20/2022 06/19/2022 Assessment & Plan (03/20/2022 12:01 PM DUMPER BAILER OPERATOR): I have ordered in-home nocturnal polysomnogram per the patient's insurance. The patient would like to hold off on an in-lab PSG with MSLT at this time. Flu vaccine need 02/28/2022 04/12/2023 Assessment & Plan (03/01/2022 7:28 PM DUMPER BAILER OPERATOR): Flu vaccine updated in the office today Need for Tdap vaccination 02/28/2022 Assessment & Plan (03/01/2022 7:28 PM DUMPER BAILER OPERATOR): Tdap updated in the office today Stress 02/28/2022 03/01/2022 Daytime sleepiness 02/28/2022 Assessment & Plan (03/01/2022 7:30 PM DUMPER BAILER OPERATOR): This is a significant, separately identifiable problem [...] 023 Assessment & Plan (03/01/2022 7:28 PM DUMPER BAILER OPERATOR): Weight/BMI is in healthy range. Continue healthy lifestyle to maintain. Assessment & Plan (08/26/2021 9:18 AM CDT): Weight/BMI is in healthy range. Continue healthy lifestyle to maintain. Need for Tdap vaccination 08/26/2021 BMI 24.0-24.9, adult 06/14/2021 022 Assessment & Plan (06/14/2021 8:18 AM DUMPER BAILER OPERATOR): Weight/BMI is in healthy range. Continue healthy lifestyle to maintain. Annual physical exam 02/27/2021 022 Assessment & Plan (02/27/2021 11:34 PM DUMPER BAILER OPERATOR): Encouraged healthy lifestyle, good nutrition and exercise. Encouraged Calcium and Vitamin D and weight bearing exercise for bone health. Reviewed immunizations Reviewed age appropirate screenings. Need for influenza vaccination 02/27/2021 07/05/2021 Assessment & Plan (02/27/2021 11:34 PM DUMPER BAILER OPERATOR): Flu vaccine updated in office today. BMI 25.0-25.9,adult 02/26/2021 06/15/19 Assessment & Plan (02/26/2021 9:42 AM DUMPER BAILER OPERATOR): Weight/BMI is in healthy range. Continue healthy lifestyle to maintain. BMI 24.0-24.9, adult 08/22/2020 Assessment & Plan (08/22/2020 11:02 AM CDT): Weight/BMI is in healthy range. Continue healthy lifestyle to maintain. BMI 23.0-23.9, adult 06/04/2020 021 Assessment & Plan (06/04/2020 9:39 PM DUMPER BAILER OPERATOR): Weight/BMI is in healthy range. Continue healthy lifestyle to maintain. Pneumonia due to COVID-19 virus 06/04/2020 08/26/2021 Assessment & Plan (06/11/2020 11:24 AM DUMPER BAILER OPERATOR): Patient directed to er for further evaluation and treatment. to drive. Assessment & Plan (06/04/2020 9:37 PM DUMPER BAILER OPERATOR): Recovering. Recommend rechecking Chest Xray in 1-2 week for resolution. She is to followup immediately for increased sxs. Pneumonia due to infectious organism 05/30/2020 06/04/2020 Fever 05/12/2020 03/01/2022 Assessment & Plan (06/11/2020 11:24 AM DUMPER BAILER OPERATOR): Patient directed to er for further evaluation and treatment. to drive. Assessment & Plan (05/12/2020 9:37 PM DUMPER BAILER OPERATOR): Patient to presume positive COVID until results are available and self isolate for 10 days from the onset of sxs. Check COVID test thru [facility] collection site in [place]. Treat sxs with Tylenol, Cough/cold medication otc [...] water often. If needed, use a hand tankerman that contains at least 60% alcohol. ?? Clean and disinfect frequently touched surfaces such as tables, doorknobs, countertops, etc daily. ?? Avoid touching your eyes, nose, and mouth when possible. Need for shingles vaccine 02/26/2020 Assessment & Plan (02/26/2020 4:02 PM DUMPER BAILER OPERATOR): Shingrix #1 given in office today Stress 02/26/2020 08/26/2021 Assessment & Plan (02/27/2021 11:34 PM DUMPER BAILER OPERATOR): Stable with Prozac 20 mg Assessment & Plan (02/26/2020 4:05 PM DUMPER BAILER OPERATOR): Paxil was increased to 30mg and doing well. Continue to monitor. Annual physical exam 01/06/2020 021 Assessment & Plan (02/26/2020 4:00 PM DUMPER BAILER OPERATOR): Encouraged healthy lifestyle, good nutrition and exercise. [...] 01/06/202008/26 Assessment & Plan (02/26/2020 4:01 PM DUMPER BAILER OPERATOR): Scheduled to update Assessment & Plan (01/06/2020 [...] doesn't do it. BMI 25.0-25.9,adult 01/05/2020 06/04/19 21 Assessment & Plan (02/26/2020 4:00 PM DUMPER BAILER OPERATOR): Weight/BMI is in healthy range. Continue healthy lifestyle to maintain. Assessment & Plan (01/05/2020 10:37 AM CDT): Continue healthy lifestyle to continue healthy weight Encounter to establish care 02/24/2018 01/06/2020 Estrogen receptor positive status (ER+) 11/29/2014 07/08/2018 Encounters Date Type Department Care Team Description 04/05/2024 Orders Only [facility] Family Medicine [address] [place] [address] Sylvia Dawson PA Elevated MCV (Primary Dx) 04/04/2024 10:45 AM DUMPER BAILER OPERATOR Office Visit [facility] [address] [place] [address] Lizzie Green NP Cerebral aneurysm, nonruptured (Primary Dx); Carotid dissection, bilateral (CMS/HCC) (HCC) 04/04/2024 8:33 AM DUMPER BAILER OPERATOR - 04/04/2024 11:59 PM DUMPER BAILER OPERATOR Hospital Encounter [facility] - Imaging [address] [place] [id number] Cerebral aneurysm, nonruptured Discharge Disposition: Discharge to home or self care 04/04/2024 Telephone [facility] [address] [place] [address] Lizzie Green NP 03/30/2024 7:30 PM DUMPER BAILER OPERATOR Procedure visit [facility] Neuro Sleep [address] [place] [phone] JOSE (obstructive sleep apnea); S/P placement of hypoglossal nerve stimulator 03/30/2024 Telephone [facility] Neuro Sleep [address] [place] [address] Norman Alves, RPS 03/28/2024 9:15 AM DUMPER BAILER OPERATOR Office Visit [facility] Ophthalmology 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) 03/24/2024 4:00 PM DUMPER BAILER OPERATOR Office Visit [facility] Rheumatology [address] [place] [phone] Patricia Martinez MD Rheumatoid arthritis with negative rheumatoid factor, involving unspecified site (HCC) (Primary Dx); High risk medication use; Scleritis and episcleritis of left eye; Trigger little finger of right hand 03/23/2024 2:00 PM DUMPER BAILER OPERATOR Office Visit [facility] Medical Group Family Medicine [address] [place] [address] Sylvia Dawson PA Annual physical exam (Primary Dx); Hypertension, essential; Fatigue, unspecified type; Hyperglycemia; Mixed hyperlipidemia; Breast cancer screening by mammogram; Need for influenza vaccination; BMI 26.0-26.9,adult 03/08/2024 9:30 AM DUMPER BAILER OPERATOR Office Visit [facility] General Neurology [address] [place] [address] Zahida Kaplan PA Migraine with aura and without status migrainosus, not intractable (Primary Dx) 03/08/2024 Orders Only [facility] Neurosurgery [address] [place] [phone] Sophia Durbin, BRODIE Cerebral aneurysm, nonruptured (Primary Dx) from Last 3 Months Immunizations Name Administration Dates Next Due Influenza, Quadrivalent, Marie l Culture-based MDCK, Preservative Free, Antibiotic Free, Intramuscular 03/16/2018 Influenza, Quadrivalent, Spl it, Preservative Free, Intramuscular 04/01/2023,02/27/2022,02/26/2021,01/04 Influenza, Trivalent, IM (MDV) 01/27/2018 Influenza, Trivalent, Preser vative Free, Intramuscular 03/23/2024,02/24/2017 Influenza, Unspecified 01/11/2019 Tdap 02/27/2022 ZOSTER Recombinant 05/01/2020,02/23/2020 Surgical History Surgery Date Site/Laterality Comments PORT REMOVAL 04/10/2015 N/A PORT PLACEMENT CHEST >5 YEARS 01/17/2015 N/A CYST REMOVAL 04/13/1997 - 04/12/1998 thyroid ENDOMETRIAL ABLATION 02/11/2007 - 03/12/2007 TONSILLECTOMY 04/13/1982 - 04/12/1983 RHINOPLASTY 04/13/1984 - 04/12/1985 THYROIDECTOMY, PARTIAL 04/13/1997 - 04/12/[address] Demetris Aguilar HYSTEROSCOPY COLONOSCOPY 03/06/2020 BREAST LUMPECTOMY 04/13/2014 - 04/12/2015 Right Invasive ductal carcinoma BREAST BIOPSY 04/13/2002 - 04/12/2003 Left benign EYE SURGERY 04/13/2021 - 04/12/2022 Bilateral cataract TUBAL LIGATION 02/11/2007 - 03/12/2007 ANGIO SELECTIVE INTERNAL CAROTID LEFT 03/12/2022 Left CEREBRAL ANEURYSM REPAIR 06/16/2022 VITRECTOMY 09/23/2022 Right for CME ANGIO SELECTIVE CAROTID OCCUPATIONAL THERAPY DIRECTOR RIGHT 01/28/2023 Right CARDIAC PACEMAKER PLACEMENT 03/13/2023 - 04/12/2023 Hypoglossal Nerve Stimulator - Inspire Device OTHER SURGICAL HISTORY 03/13/2023 - 04/12/2023 Inspire implantation - for sleep apnea Medical History Medical History Date Comments RA (rheumatoid arthritis) (HCC) Benign left breast lump 06/2002 biopsy s howed fibrosis and hyperplasia Depression Elevated cholesterol Hypertension Brain aneurysm Followed by Dr. Chaudhari: Every 3 years Migraine Autoimmune disease (CMS/HCC) (HCC) Breast cancer (HCC) 2015 Invasive babar rasheeda carcinoma Cataract Motion sickness sometimes on [place] History of chemotherapy 2015 Breast c ancer History of radiation therapy 2015 Rig ht breast Obstructive sleep apnea 06/19/2022 CME (cystoid macular edema), bilateral Family History Medical History Relation Name Comments Depression Brother Brother Hypertension Brother Brother Alzheimer's disease Father Father Cancer Father Father Dementia Father Father Depression Father Father Hypertension Father Father Lung cancer Father Father Memory loss Father Father Peripheral vascular disease Father Father Cancer Maternal Grandfather Grandfather Memory loss Maternal Grandmother Maternal Grandmother Anemia Mother Mother Aortic aneurysm Mother Mother Heart disease Mother Mother Heart failure Mother Mother Hypertension Mother Mother Depression Paternal Grandmother GMother Stroke Paternal Grandmother GMother Depression Sister 1 Several Hypertension Sister 1 Several Arthritis Sister 2 Sisters Osteoporosis Sister 2 Sisters No Known Problems Sister 3 Hypertension Sister 4 Sister Anesthesia problems Neg Hx Breast cancer Neg Hx Malig Hypertension Neg Hx Malig Hyperthermia Neg Hx Pseudochol deficiency Neg Hx Relation Name Status Comments Brother Brother Father Father Maternal Grandfather Grandfather Maternal Grandmother Maternal Grandmother Mother Mother Alive aortic aneurysm age 60s Paternal Grandmother GMother Sister 1 Several Alive Sister 2 Sisters Alive Sister 3 Alive Sister 4 Sister Alive Son Alive Social History Tobacco Use Types Packs/Day Years [...] on file Legal Sex Female 3:42 AM DUMPER BAILER OPERATOR Gender Identity Not on file Sexual Orientation Not on file 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 No history fertility medications. She used oral contraceptives in the past. One does progesterone 08/2014. She experienced menopause approximately age 53. Last Filed Vital Signs Vital Sign Reading Time Taken Comments Blood Pressure 145/87 03/30/2024 7:48 PM DUMPER BAILER OPERATOR Pulse 63 03/30/2024 7:48 PM DUMPER BAILER OPERATOR Temperature 36.6 ??C (97.9 ??F) 03/30/2024 7:48 PM CS T Respiratory Rate 14 04/04/2024 10:10 AM DUMPER BAILER OPERATOR Oxygen Saturation 97% 03/30/2024 7:48 PM DUMPER BAILER OPERATOR Inhaled Oxygen Concentration - - Weight 70 kg (154 lb 6.4 oz) 04/04/2024 10:10 AM DUMPER BAILER OPERATOR Height 160 cm (5' 3 ) 04/04/2024 10:10 AM DUMPER BAILER OPERATOR Body Mass Index 27.35 04/04/2024 10:10 AM DUMPER BAILER OPERATOR Plan of Treatment Health Maintenance Due Date Last Done Comments Pneumococcal vaccine <65 (1 of 2 - PCV) 1966 Hepatitis B Screening 1978 Covid-19 Vaccine ( - 2023-2 5 season) 2023 05/14/2021, 11/08/2020, 10/12/2020 Breast Cancer Screening-Mammogram 06/08/2024 06/08/2023, 04/01/2022, 03/02/2021, Additional history exists Cervical Cancer Screening 06/15/20242023, 06/16/2023, 10/17/2020, Additional history exists Depression Screening 03/23/2025 03/23/2024, 03/23/2024, 04/01/2023, Additional history exists Regular Well Visit/Exam 18-64 03/23/2025, 06/16/2023, 04/01/2023, Additional history exists Colon Cancer Screening-Colonoscopy 03/06/2030 03/06/2020, 01/15/2012, 2010 DTaP/Tdap/Td Vaccine (2 - Td or Tdap) 02/28/2032 02/27/2022 Hepatitis C Screening Completed 11/06/2016 Colon Cancer Screening-CT Colonography Discontinued 03/06/2020, 01/15/2012, 2010 Colon Cancer Screening-DNA Stool Discontinued 03/06/2020, 01/15/2012, 2010 Colon Cancer Screening-FIT Discontinued 03/06, 01/15/2012, 2010 Colon Cancer Screening-Sigmoidoscopy Discontinued 03/06/2020, 01/15/2012, 2010 Zoster Vaccine Completed 05/01/2020, 02/23/2020 Influenza Vaccine Completed 03/23/2024, , 02/27/2022, Additional history exists Medical Devices Implanted Type Area Foundry Helper Device Identifier Shelf Expiration Date Model / Serial / Lot Inspire [employer] Inc Inspire 3 Electrode Cuff Tunnel Owen Lead Neurostimulator Sterile 4063 - [id number] - [id number] Implanted:Qty: 1 on 03/20/2023 by Albin Pereyra MD at [facility] Other - see comments Right: Chest [employer] 10/05/2025 4063 / [id number] / Surpass Streamline Flow Diverter Implanted:Qty: 1 on 04/09/[address] [facility] Stent Right: Carotid [place] [employer]vascular [id number] 07/29/2024 / / [id number] Lvis Intrluminal Support Device Implanted:Qty: 1 on 04/09/[address] [facility] Stent Left: Carotid [employer] Inc 01/11/2024 / / [id number] Angio-Seal Vip Vascular Closure Device Implanted:Qty: 1 on 04/09/[address] [facility] Vascular Closure Device Right: Femoral [employer] Messaging 12/11/2022 / / [id number] Secerno Web Sl 5mm 3mm Device Embolization W5-5-3 - [id number] Implanted:Qty: 1 on 06/16/[address] [facility] [employer] Inc 08/10/2024 W5-5-3 / / [id number] Description:Brain [employer] Angio-Seal Vip 6fr Closere Device [id number] - [id number] Implanted:Qty: 1 on 06/16/[address] [facility] [employer]Kred[employer]ch 02/10/2023 [id number] / / [id number] Vasorum Ltd Device 5fr Closure Celt Acd Vascular Sterile Latex Free Disposable Juan Kclt-05 - [id number] Implanted:Qty: 1 on 01/28/[address] [facility] [employer] 11/25/2025 KCLT-05 / / [id number] Inspire Medical Systems, Inc Lead Neurostimulator Sleep Apnea Thoracic Permanent Respiratory Sensing Inspire 43cm 4340 - [id number] - [id number] Implanted:Qty: 1 on 03/20/2023 by Albin Pereyra MD at [facility] Right: Chest [employer] 01/10/2026 4340 / [id number] / Inspire Medical Systems, Inc Inspire Generator 3028 - [id number] - [id number] Implanted:Qty: 1 on 03/20/2023 by Albin Pereyra MD at [facility] Right: Chest [employer]IRE [employer] 12/08/2025 3028 / [id number] / Procedures Procedure Name Priority Date/Time Associated Diagnosis Comments ERYTHROCYTE SEDIMENTATION RATE Routine 04/04/2024 11:50 AM DUMPER BAILER OPERATOR Rheumatoid arthritis with negative rheumatoid factor, involving unspecified site (HCC) High risk medication use CRP (ACUTE PHASE) Routine 04/04/2024 11:50 AM DUMPER BAILER OPERATOR Rheumatoid arthritis with negative rheumatoid factor, involving unspecified site (HCC) High risk medication use COMPREHENSIVE METABOLIC PANEL Routine 04/04/2024 11:50 AM DUMPER BAILER OPERATOR Rheumatoid arthritis with negative rheumatoid factor, involving unspecified site (HCC) High risk medication use CBC WITH AUTO DIFFERENTIAL Routine 04/04/2024 11:50 AM DUMPER BAILER OPERATOR Rheumatoid arthritis with negative rheumatoid factor, involving unspecified site (HCC) High risk medication use LIPID PANEL Routine 04/04/2024 11:49 AM DUMPER BAILER OPERATOR Mixed hyperlipidemia CBC WITH AUTO DIFFERENTIAL Routine 04/04/2024 11:49 AM DUMPER BAILER OPERATOR Fatigue, unspecified type COMPREHENSIVE METABOLIC PANEL Routine 04/04/2024 11:49 AM DUMPER BAILER OPERATOR Hypertension, essential HEMOGLOBIN A1C Routine 04/04/2024 11:49 AM DUMPER BAILER OPERATOR Hyperglycemia VITAMIN B12 Routine 04/04/2024 11:49 AM DUMPER BAILER OPERATOR Fatigue, unspecified type TSH Routine 04/04/2024 11:49 AM DUMPER BAILER OPERATOR Fatigue, unspecified type CTA HEAD NECK W WO CONTRAST Schedule Routine, Read Routine (OP Routine) 04/04/2024 9:30 AM DUMPER BAILER OPERATOR Cerebral aneurysm, nonruptured PSG (COMPLEX) Routine 03/30/2024 10:00 PM DUMPER BAILER OPERATOR JOSE (obstructive sleep apnea) S/P placement of hypoglossal nerve stimulator PAP AND HIGH RISK HPV, REFLEX TO GENOTYPING Routine 06/16/2023 11:06 AM DUMPER BAILER OPERATOR Well woman exam SCREENING MAMMOGRAM BILATERAL W MARCELO Schedule Routine, Read Routine (OP Routine) 06/08/2023 1:56 PM DUMPER BAILER OPERATOR Screening mammogram, encounter for COLONOSCOPY Routine 03/06/2020 HEPATITIS C ANTIBODY Routine Gen Lab 11/06/2016 6:04 PM CDT from Last 3 Months or Most Recently Relevant to Health Maintenance Results * (ABNORMAL) CBC with auto differential (04/04/2024 11:50 AM DUMPER BAILER OPERATOR) WBC 4.7 3.4 - 10.8 x10E3/uL [facility] - 01 RBC 3.47(L) 3.77 - 5.28 x10E6/uL [facility] - 01 Hgb 11.8 11.1 - 15.9 g/dL [facility] - 01 Hct 35.7 34.0 - 46.6 % [facility] - 01 MCV 103(H) 79 - 97 fL [facility] - 01 MCH 34.0(H) 26.6 - 33.0 pg [facility] - 01 MCHC 33.1 31.5 - 35.7 g/dL [facility] - 01 Rdw 13.6 11.7 - 15.4 % [facility] - 01 Platelets 225 150 - 450 x10E3/uL [facility] - 01 Neutrophils pct 56 Not Estab. % [facility] - 01 Lymphs pct 30 Not Estab. % [facility] - 01 Monocytes pct 11 Not Estab. % [facility] - 01 Eosinophils pct 1 Not Estab. % [facility] - 01 Basophil pct 1 Not Estab. % [facility] - 01 Neutrophil abs 2.7 1.4 - 7.0 x10E3/uL [facility] - 01 Lymphs (Absolute) 1.4 0.7 - 3.1 x10E3/uL [facility] - 01 Monocyte abs 0.5 0.1 - 0.9 x10E3/uL [facility] - 01 Eosinophils, abs 0.0 0.0 - 0.4 x10E3/uL [facility] - 01 Basophils, abs 0.0 0.0 - 0.2 x10E3/uL [facility] - 01 Immature Granulocytes 1 Not Estab. % [facility] - 01 Immature Grans (Abs) 0.0 0.0 - 0.1 x10E3/uL [facility] - 01 Blood 04/04/2024 11:5 0 AM DUMPER BAILER OPERATOR 04/04/2024 Narrative [facility] - 04/05/2024 7:08 AM DUMPER BAILER OPERATOR Performed at: ??[address] ??[id number] Filterer: John Lozoya PhD, Phone: ??[phone] Patricia Martinez MD LAB BLOOD ORDERABLES Final R esult Performing Organization Address [facility] de Phone Number [facility] - * Erythrocyte sedimentation rate (04/04/2024 11:50 AM DUMPER BAILER OPERATOR) Erythrocyte sedimentation rate 2 0 - 40 mm/hr [facility] - 01 Blood 04/04/2024 11:5 0 AM DUMPER BAILER OPERATOR 04/04/2024 Narrative [facility] - 04/05/2024 7:08 AM DUMPER BAILER OPERATOR Performed at: ?? [address] ??[id number] Filterer: John Lozoya PhD, Phone: ??[phone] Patricia Martinez MD LAB BLOOD ORDERABLES Final R esult Performing Organization Address City/[facility] Co de Phone Number [facility] * CRP (acute phase) (04/04/2024 11:50 AM DUMPER BAILER OPERATOR) CRP 2 0 - 10 mg/L [facility] - 01 Blood 04/04/2024 11:5 0 AM DUMPER BAILER OPERATOR 04/04/2024 Narrative [facility] - 04/05/2024 12:08 PM DUMPER BAILER OPERATOR Performed at: ??01 - [facility] [address] ??[id number] Filterer: John Lozoya PhD, Phone: ??[phone] us Patricia Martinez MD LAB BLOOD ORDERABLES Final R esult [facility] - * (ABNORMAL) Comprehensive metabolic panel (04/04/2024 11:50 AM DUMPER BAILER OPERATOR) [facility] Glucose 91 70 - 99 mg/dL [facility] - 01 BUN 13 8 - 27 mg/dL [facility] - 01 Creatinine, Serum 0.67 0.57 - 1.00 mg/dL [facility] - 01 eGFR 98 >59 mL/min/1.7 3 [facility] - 01 BUN/creat ratio 19 12 - 28 [facility] - 01 Sodium 141 134 - 144 mmol/L [facility] - 01 Potassium, sr 4.8 3.5 - 5.2 mmol/L [facility] - 01 Chloride 107(H) 96 - 106 mmol/L [facility] - 01 CO2 24 20 - 29 mmol/L [facility] - 01 Calcium 8.6(L) 8.7 - 10.3 mg/dL [facility] - 01 Protein, sr 5.6(L) 6.0 - 8.5 g/dL [facility] - 01 Albumin 4.1 3.9 - 4.9 g/dL [facility] - 01 Globulin, Total 1.5 1.5 - 4.5 g/dL [facility] - 01 Bilirubin, Total <0.2 0.0 - 1.2 mg/dL [facility] - 01 Alk phos 65 44 - 121 IU/L [facility] - 01 AST 28 0 - 40 IU/L [facility] - 01 ALT 25 0 - 32 IU/L [facility] - 01 Blood 04/04/2024 11:5 0 AM DUMPER BAILER OPERATOR 04/04/2024 Narrative [facility] - 04/05/2024 7:08 AM DUMPER BAILER OPERATOR Performed at: ??01 - [facility] [address] ??[id number] Filterer: John Lozoya PhD, Phone: ??[phone] us Patricia Martinez MD LAB BLOOD ORDERABLES Final R esult [facility] - 01 * (ABNORMAL) CBC with auto differential (04/04/2024 11:49 AM DUMPER BAILER OPERATOR) WBC 4.7 3.4 - 10.8 x10E3/uL [facility] [...] - 01 Blood 04/04/2024 11:4 9 AM DUMPER BAILER OPERATOR 04/04/2024 Narrative [facility] - 04/05/2024 7:36 AM DUMPER BAILER OPERATOR Performed at: ??01 - [address] ??[id number] Filterer: John Lozoya PhD, Phone: ??[phone] Sylvia JONES LAB BLOOD ORDERABLES Final Result Performing Organization Address [facility] de Phone Number [facility] - * TSH (04/04/2024 11:49 AM DUMPER BAILER OPERATOR) TSH 1.390 0.450 - 4.500 uIU/mL [facility] - 01 Blood 04/04/2024 11:4 9 AM DUMPER BAILER OPERATOR 04/04/2024 Narrative [facility] - 04/05/2024 9:36 AM DUMPER BAILER OPERATOR Performed at: ??01 - [address] ??[id number] Filterer: John Lozoya PhD, Phone: ??[phone] Sylvia JONES LAB BLOOD ORDERABLES Final Result Performing Organization Address [facility] de Phone Number [facility] - * Hemoglobin A1c (04/04/2024 11:49 AM DUMPER BAILER OPERATOR) Hgb A1C 5.2 4.8 - 5.6 % [facility] - 01 Comment: ? Prediabetes: 5.7 - 6.4 ? Diabetes: >6.4 ? Glycemic control for adults with diabetes: <7.0 Blood 04/04/2024 11:4 9 AM DUMPER BAILER OPERATOR 04/04/2024 Narrative [facility] - 04/05/2024 7:36 AM DUMPER BAILER OPERATOR Performed at: ??01 - [address] ??[id number] Filterer: John Lozoya PhD, Phone: ??[phone] Sylvia JONES LAB BLOOD ORDERABLES Final Result Performing Organization Address City/[facility]/ZIP Co de Phone Number [facility] - 01 * Vitamin B12 (04/04/2024 11:49 AM DUMPER BAILER OPERATOR) Vitamin B12 559 232 - 1,245 pg/mL [facility] - 01 Blood 04/04/2024 11:4 9 AM DUMPER BAILER OPERATOR 04/04/2024 Narrative [facility] - 04/05/2024 9:36 AM DUMPER BAILER OPERATOR Performed at: ?? - [address] ??[id number] Filterer: John Lozoya PhD, Phone: ??[phone] Sylvia JONES LAB BLOOD ORDERABLES Final Result Performing Organization Address [facility] de Phone Number [facility] - 01 * (ABNORMAL) Lipid panel (04/04/2024 11:49 AM DUMPER BAILER OPERATOR) Cholesterol 226(H) 100 - 199 mg/dL [facility] - 01 Triglycerides 98 0 - 149 mg/dL [facility] - 01 HDL Cholesterol 79 >39 mg/dL [facility] - 01 VLDL 17 5 - 40 mg/dL [facility] - 01 LDL, calculated 130(H) 0 - 99 mg/dL [facility] - 01 Blood 04/04/2024 11:4 9 AM DUMPER BAILER OPERATOR 04/04/2024 Narrative [facility] - 04/05/2024 7:36 AM DUMPER BAILER OPERATOR Performed at: ?? - [address] ??[id number] Filterer: John Lozoya PhD, Phone: ??[phone] Sylvia JONES LAB BLOOD ORDERABLES Final Result Performing Organization Address [facility] Co de Phone Number [facility] - 01 * (ABNORMAL) Comprehensive metabolic panel (04/04/2024 11:49 AM DUMPER BAILER OPERATOR) Glucose 92 70 - 99 mg/dL [facility] [...] - 01 Blood 04/04/2024 11:4 9 AM DUMPER BAILER OPERATOR 04/04/2024 Narrative [facility] - 04/05/2024 7:36 AM DUMPER BAILER OPERATOR Performed at: ??01 - [facility] [address] ??[id number] Filterer: John Lozoya PhD, Phone: ??[phone] us Sylvia JONES LAB BLOOD ORDERABLES Final Result [facility] - 01 * CTA Head Neck W WO Contrast (04/04/2024 9:30 AM DUMPER BAILER OPERATOR) Anatomical Region Laterality Modality Head and Neck N/A Computed Tomogra phy 04/04/2024 11:3 0 AM DUMPER BAILER OPERATOR Impressions 04/04/2024 12:35 PM DUMPER BAILER OPERATOR 1. 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 ??Filling of the device neck is again noted. 2. Bilateral cervical internal carotid artery stents appear patent. Dictated by: Adonis Bhatti D.O. The radiology attending physician has personally reviewed this study, and had reviewed and/or edited this written report and agrees with it. Electronically signed by: Kaye Jc M.D. Narrative 04/04/2024 12:35 PM DUMPER BAILER OPERATOR EXAMINATION: 1. Computed tomography angiography (CTA) of [...] signed by: Kaye Jc M.D. Lizzie Green MANAGER BAKERY IMG CT PROCEDURES Final Re sult * PSG (COMPLEX) (03/30/2024 10:00 PM DUMPER BAILER OPERATOR) Narrative Xavier Bird MD - 03/30/2024 10:00 PM DUMPER BAILER OPERATOR Xavier Bird MD ? 03/31/2024 ??2:34 PM PSG-Sleep Provider Use Only Date/Time: 03/30/2024 10:00 PM Performed by: Xavier Bird MD Authorized by: Fadi Cook PA ?? us [facility] ORDERABLES Fin al Result * Pap and High Risk HPV and Genotyping (Cytology Component) (06/16/2023 11:06 AM DUMPER BAILER OPERATOR) Thin prep (Pap test) 06/16/2023 11:06 AM DUMPER BAILER OPERATOR 06/17/2023 10:27 AM DUMPER BAILER OPERATOR Narrative PATHOLOGY [facility] - 06/22/2023 10:16 AM CDT EPIC results best viewed via link to PDF [facility] [place] [address] Note to Patients: This report may contain a detailed description of human tissue sent by a health care provider to the laboratory for pathologic evaluation. The content of this report is essential for diagnosis and may provide important critical findings. This information may be unfamiliar to patients to review without a medical professional present. It is advised that the patient review this report in the presence of a health care provider who can answer questions and explain the details. CYTOPATHOLOGY REPORT FINAL Patient Name: ??YESIKA MANZANARES Gender: ??F : ??1960 (Age: 62) Address: ??[address] [place] [address] ??[id number] [facility] #: ??[id number] Service: ??DEFAULT Location: ?? Patient Type: ??[facility] SPECIMEN Taken: ??06/16/2023 Received: ??06/17/2023 Accessioned: ??06/17/2023 Reported: ??06/22/2023 Physician(s): ??Ema Keyes M.D. ?? FINAL INTERPRETATION SOURCE OF SPECIMEN ? Liquid based Thin Prep pap with HPV: STATEMENT OF ADEQUACY ?- Satisfactory for evaluation ?- No endocervical/transformation zone sample present in a post menopausal patient ? GENERAL CATEGORIZATION: ?- Negative for squamous intraepithelial lesion or malignancy ? INTERPRETATION: ?- Atrophy ? Comments (Normal-Negative for High Risk HPV) HPV HR 16- Not detected HPV HR 18-Not detected HPV HR non 16/18- Not detected Interpretive Data Nucleic acid amplification for detection of high-risk Human Papilloma virus (HPV) is performed by the Neo Lino 6800 HPV test. This assay specifically detects HPV- 16 and HPV-18 genotypes. The following HPV genotypes are detected as high-risk HPV: HPV-31, 33, 35, 39, 45, 51, 52, 56, 58, 59, 66, and 68. This assay has been approved by the [place] Food and Drug Administration for detection of HPV in cervical specimens collected by a physician using an endocervical brush/spatula or cervical broom and placed in the ThinPrep Pap Test PreservCyt collection containers. The performance characteristics of this test have been verified by the [facility] Molecular Infectious Disease laboratory. Correlate with reported cytology results, as applicable. Interpretive data last revised 22 [facility]/06/22/2023 10:16 JESSIKA Batista(ASCP) Report Electronically Reviewed and Signed Out By JESSIKA Batista(ASC) 06/22/2023 10:16:29 Cervicovaginal Cytology (Pap Test) Disclaimer: The Pap test is a screening test used to detect cervical cancer and its precursors; it is not a diagnostic procedure. False negative and false positive results do occur. Pap test results should be interpreted in the context of pertinent clinical information and biopsy results as indicated. [facility] Clinical Laboratory Improvement Amendments (CLIA) mandate that cytologic and histologic results be correlated for laboratory quality supervisor & improvement standards. ??FOR ALL HIGH-GRADE CASES we request submission of follow-up histological material and/or reports that have not been previously provided so that we may fulfill said required standards. ?? Gross Description A. ??Liquid based Thin Prep pap with HPV: ??Cervical/vaginal - Screening ThinPrep Clinical Diagnosis and History Last Menstrual Period: Not Provided. Menstrual History: Post-menopausal The patient is a 62 year old woman with a screening pap. Report Images and scanned documents, if included only viewable in PDF version The performance characteristics of some immunohistochemical stains, in-situ hybridization and fluorescence in-situ hybridization tests and immunophenotyping by flow cytometry cited in this report (if any) were determined by the Surgical Pathology Department at [facility] as part of an ongoing quality measurement specialist program and in compliance with federally mandated regulations drawn from the Clinical Laboratory Improvement Act of 1988 (CLIA '88). ??Some of these tests rely on the use of analyte specific reagents and are subject to specific labeling requirements by the [place] Food and Drug Administration. ??Such diagnostic tests may only be performed in a facility that is certified by the Department of Health and Human Services as a high complexity laboratory under CLIA '88. ??The FDA has determined that such clearance or approval is not necessary. ??This test is used for clinical purposes. ??It should not be regarded as investigational or for research. ??Nevertheless, federal rules concerning the medical use of analyte specific reagents require that the following disclaimer be attached to the report: This test was developed and its performance characteristics determined by the Surgical Pathology Department of [facility]. ??It has not been cleared or approved by the U. S. Food and Drug Administration. Ema Keyes MD LAB CYTOLOGY ORDERABLES F inal Result PATHOLOGY [facility] * Screening Mammogram Bilateral W Marcelo (06/08/2023 1:56 PM DUMPER BAILER OPERATOR) Anatomical Region Laterality Modality Breast Bilateral Mammography Impressions 06/08/2023 2:35 PM DUMPER BAILER OPERATOR BI-RADS?? ATLAS category (overall): 2 - Benign There is no mammographic evidence of malignancy. A 1 year screening mammogram is recommended. The patient has been or will be contacted. We recommend annual screening mammography for women at average risk of breast cancer beginning at age 40, based on guidelines of the [employer] (ACR Practice Parameter for the Performance of Screening and Diagnostic Mammography) and [employer]. For women with and elevated risk of breast cancer, please refer to the ACR Practice Parameter for specific screening recommendations. The patient will be entered into a reminder system with a target due date of 1 year for her next screening exam. Narrative 06/08/2023 2:35 PM DUMPER BAILER OPERATOR Screening Mammogram Bilateral W Marcelo: 06/08/23 The study was acquired using full field digital technology and interpreted from soft copy. 2D digital mammographic views, as well as 3D digital tomosynthesis were performed in the CC and MLO projections. CLINICAL: ??Screening mammogram, encounter for. ??Medical history includes breast cancer, chemotherapy, and radiation therapy. ??History of breast cancer in Neg Hx. COMPARISONS: 04/01/2022 Screening Mammogram Bilateral W Marcelo 05/23/2021 US Breast Right Limited 03/02/2021 Screening Mammogram Bilateral W Marcelo 02/20/2020 Screening Mammogram Bilateral W Marcelo 01/18/2019 Screening Mammogram Bilateral W Marcelo 02/09/2018 Diagnostic Mammogram Bilateral W Marcelo BREAST TISSUE: The breasts are heterogeneously dense, which may obscure small masses. FINDINGS: There is a pacemaker which projects in the right axilla.There are postoperative findings in the right breast. No suspicious masses, suspicious calcifications, or other suspicious findings are seen within either breast. There has been no suspicious change. Sylvia JONES IMG MAMMO PROCEDURES Final Result * Colonoscopy (03/06/2020) Anatomical Region Laterality Modality Other Historical Provider ENDOSCOPY PROCEDURES Mary l Result * Hepatitis C antibody (11/06/2016 6:04 PM CDT) Hep C Ab Nonreactive Nonreactive KATHY REYNA Comment: Interpretive Data Positive and greyzone results should be confirmed by a molecular method. If positive or greyzone, a second separately collected sample should be submitted for Hepatitis C Virus RNA. Detection and Quantitation by Real-Time Reverse Metalworking Instructor-PCR.Current Interpretive data was last revised on 2016. Blood specimen (specimen) 11/06/2016 6:04 PM CDT 11/06/2016 6:14 PM CDT Patricia Martinez MD LAB MICROBIOLOGY - GENERAL O RDERABLES Edited Result - Final [facility] Department [place] [address] from Last 3 Months or Most Recently Relevant to Health Maintenance Insurance [place] Advance Directives For more information, please contact: [phone] Documents on File Type Date Recorded Patient Field Logistics Coordinator Expl anation Power of Chemical Librarian 06/16/2022 8:01 AM Power of Chemical Librarian 06/16/2022 8:00 AM * Full Code (Latest Code Status on File) Date Activated Date Inactivated Comments 06/16/2022 8:46 AM 06/17/2022 2:17 PM * Full Code Date Activated Date Inactivated Comments 04/09/2022 11:26 AM 04/10/2022 3:22 PM * Full Code Date Activated Date Inactivated Comments 03/12/2022 12:28 PM 03/13/2022 4:50 AM * Full Code Date Activated Date Inactivated Comments 03/12/2022 12:27 PM 03/12/2022 12:28 PM Care Teams Pre Billing Clinician Relationship Specialty Start Date End Date Sylvia Dawson PA [address] [place] [address] PCP - General Internal Medicine 01/05/20 Erica Rodrigues MD [address] [place] [address] Radiation Oncologist Radiation Oncology 10/25/18 Gasper Kaba MD [address] # LL [facility] [address] [place] [address] Surgeon Surgical Oncology 10/25/18 Brandy Aguirre, OCCUPATIONAL THERAPY DIRECTOR [address] [place] [address] Nurse Practitioner Certified Clinical Nurse Specialist 10/25/18 Jo-Ann Morrow, PhD [address] [place] [address] Nurse Practitioner Radiation Oncology 10/25/18 Christina Louis, MANAGER BAKERY [address] [place] [address] Nurse Practitioner Medical Oncology 10/25/18 Jessy Adame MD [address] [facility], [address] [place] [address] Consulting Physician Retina Ophthalmology 04/15/23 Harpal Carpio MD [address] [place] [address] Neurologist Neurology 04/15/23 Rossana ChurcheDARIAN [address] [place] [address] Nurse Practitioner Nurse Practitioner 04/15/23 Zahida Kaplan PA [address] DIV NEUROLOGY GENERAL, [facility] [address] [place] [address] Physician Hearing Care Practitioner Physician Hearing Care Practitioner 04/15/23 Fadi Cook PA [address] DIV NEUROLOGY SLEEP MED, [facility] [address] [place] [address] Physician Hearing Care Practitioner Sleep Medicine 04/15/23 Harpal De León MD [address] [facility] [address] [place] [address] Online Health And Fitness Coach Cardiology 04/15/23 Valorie Young MD [address] [facility] [address] [place] [address] Online Health And Fitness Coach Cardiology 04/15/23 Patricia Martinez MD [address] DIV IM RHEUMATOLOGY, [facility] [address] [place] [address] Consulting Physician Rheumatology 04/15/23
--- OUTSIDE RECORDS SUMMARY | 2024-04-24 05:47 | XMS_ITS | Encounter Summary ---
Author Organization [facility] Healthcare Address [address] [place] [address] Care Team Providers Care Boat Builder And Repairer Name Role Phone Erica Rodrigues MD Unavailable Gasper Kaba MD Unavailable Brandy Aguirre Unavailable Jo-Ann Morrow PhD Unavailable Christina Louis NP Unavailable Sylvia Dawson Primary Care Provider [phone] Jessy Adame MD Unavailable Harpal Carpio MD Unavailable Rossana Church [facility] Unavailable Zahida Kaplan Unavailable Fadi Cook Unavailable [phone] Harpal De León MD Unavailable [phone] Valorie Young MD Unavailable Patricia Martinez MD Unavailable Reason for Referral * MRI/CAT/PET Scan (Routine) - Pending Review Specialty Diagnoses / Procedures Referred By Contac t Referred To Contact Radiology Diagnoses Cerebral aneurysm, nonruptured Carotid dissection, bilateral (CMS/HCC) (HCC) Procedures CTA Head Neck W WO Contrast Lizzie Green, ENTRY LEVEL ACCOUNTANT [address] [place] [address] Phone: tel: fax: [facility] [address] [place] [address] Referral ID Status Reason Start Date Expiration Date V isits Requested Visits Authorized [id number] Pending Review 04/04/2024 05/04/2025 1 1 NOLOGIES DIVISION CHAIR Reason for Visit * Reason Comments Follow-up Encounter Details Date Type Department Care Team (Late st Contact Info) Description 04/04/2024 10:45 AM TECHNOLOGIES DIVISION CHAIR Office Visit [facility] [address] [place] [address] Lizzie Green NP [address] [place] [address] Cerebral aneurysm, nonruptured (Primary Dx); Carotid dissection, bilateral (CMS/HCC) (HCC) Social History Tobacco Use Types Packs/Day Years [...] on file Legal Sex Female 3:42 AM TECHNOLOGIES DIVISION CHAIR Gender Identity Not on file Sexual Orientation Not on file 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 on file Not on file Not on file documented as of this encounter Last Filed Vital Signs Vital Sign Reading Time Taken Comments Blood Pressure - - Pulse - - Temperature - - Respiratory Rate 14 04/04/2024 10:10 AM TECHNOLOGIES DIVISION CHAIR Oxygen Saturation - - Inhaled Oxygen Concentration - - Weight 70 kg (154 lb 6.4 oz) 04/04/2024 10:10 AM TECHNOLOGIES DIVISION CHAIR Height 160 cm (5' 3 ) 04/04/2024 10:10 AM TECHNOLOGIES DIVISION CHAIR Body Mass Index 27.35 04/04/2024 10:10 AM TECHNOLOGIES DIVISION CHAIR documented in this encounter Progress Notes * Magdalene Baca RN - 04/04/2024 10:45 AM CST Escorted patient to exam room. Obtained updated vital signs. Reviewed patient's allergies and current medications. Additional tasks included medical/surgical history review and coordination of imaging Total time spent for preparation, patient care, education, and care coordination was 11-20 minutes. NOLOGIES DIVISION CHAIR documented in this encounter Plan of Treatment Scheduled Orders Name Type Priority Associated Diagnoses Orde r Schedule CTA Head Neck W WO Contrast Imaging Schedule Routine, Read Routine (OP Routine) Cerebral aneurysm, nonruptured Carotid dissection, bilateral (CMS/HCC) (HCC) Expected: 04/04/2025, Expires: 04/04/2025 documented as of this encounter Visit Diagnoses Diagnosis Cerebral aneurysm, nonruptured- Primary Carotid dissection, bilateral (CMS/HCC) (HCC) Dissection of carotid artery documented in this encounter Care Teams Boat Builder And Repairer Relationship Specialty Start Date End Date Sylvia Dawson PA [address] [place] [address] PCP - General Internal Medicine 01/05/20 Erica Rodrigues MD [address] [facility] # LL LL [address] [place] [address] Radiation Oncologist Radiation Oncology 10/25/18 Gasper Kaba MD [address] [facility] [address] LL LL [address] [place] [address] Surgeon Surgical Oncology 10/25/18 Brandy Aguirre CNS [address] [place] [address] Nurse Practitioner Certified Clinical Nurse Specialist 10/25/18 Jo-Ann Morrow, PhD [address] [place] [address] Nurse Practitioner Radiation Oncology 10/25/18 Christina Louis ENTRY LEVEL ACCOUNTANT [address] [facility] [address] # LL [facility] [address] [place] [address] Nurse Practitioner Medical Oncology 10/25/18 Jessy Adame MD [address] [facility] DEPT OPHTHALMOLOGY, [address] [place] [address] Consulting Physician Retina Ophthalmology 04/15/23 Harpal Carpio MD [address] [place] [address] Neurologist Neurology 04/15/23 Rossana Church DNP [address] [place] [address] Nurse Practitioner Nurse Practitioner 04/15/23 Zahida Kaplan PA [address] [facility], [address] [address] Physician Standards Engineer Physician Standards Engineer 04/15/23 Fadi Cook PA [address] [facility] DIV NEUROLOGY SLEEP [facility] [address] [place] [address] Physician Standards Engineer Sleep Medicine 04/15/23 Harpal De León MD [address] [place] [address] Extrusion Die Corrector Cardiology 04/15/23 Valorie Young MD [address] [facility] [address] [place] [address] Extrusion Die Corrector Cardiology 04/15/23 Patricia Martinez MD [address] [facility] DIV IM RHEUMATOLOGY, [facility] [address] [place] [address] Consulting Physician Rheumatology 04/15/23 documented as of this encounter
--- OUTSIDE RECORDS SUMMARY | 2024-04-24 05:47 | XMS_ITS | Encounter Summary ---
Author Organization [facility] [employer] [facility] Address [address] [place] [address] Phone Care Team Providers Care Plant Health Care Technician Name Role Phone Erica Rodrigues MD Unavailable Gasper Kaba MD Unavailable Brandy Aguirre WATER RESOURCE ENGINEER Unavailable Jo-Ann Morrow PhD Unavailable [phone] Christina Louis PYROMETER TEMPERATURE REGULATOR Unavailable [phone] Sylvia Dawson Primary Care Provider [phone] Jessy Adame MD Unavailable Harpal Carpio MD Unavailable Rossana Church DNP Unavailable Zahida Kaplan Unavailable Fadi Cook Unavailable [phone] Harpal De León MD Unavailable Valorie Young MD Unavailable [phone] Patricia Martinez MD Unavailable Reason for Visit * Reason Comments Scleritis and episcleritis of left eye Encounter Details Date Type Department Care Team (Late st Contact Info) Description 03/28/2024 9:15 AM MARINE STEAM FITTER HELPER Office Visit [facility] [address] [facility] 6th [place] [id number] Corinna Elmore MD PhD [address] [place] [address] Scleritis and episcleritis of left eye (Primary [...] on file Legal Sex Female 3:42 AM MARINE STEAM FITTER HELPER Gender Identity Not on file Sexual Orientation Not on file 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 on file Not on file Not on file documented as of this encounter Patient Instructions * Patient Instructions* Corinna Elmore MD PhD - 03/28/2024 9:15 AM MARINE STEAM FITTER HELPER NE STEAM FITTER HELPER documented in this encounter Ordered Prescriptions Prescription Sig Dispense Quantity Refills Last Filled Start Date End Date prednisoLONE acetate (PRED FORTE) 1 % ophthalmic suspension Administer 1 drop into both eyes 2 (two) times a day as needed (redness, pain, light sensitivity) 5 mL 11 03/28/2024 documented in this encounter Progress Notes * Corinna Elmore MD PhD - 03/28/2024 9:15 AM CST 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 documented in this encounter Eye Exam Visual Acuity (Snellen - Linear) Right eye Left eye Dist sc 20/15 -1 20/25 -1/+2 Tonometry (I-Care, 9:17 AM) Right eye Left eye Pressure 09 08 Pupils Pupils Right eye PERRL Left eye PERRL Visual Grossman (Counting fingers) Right eye Left eye Full Full Extraocular Movement Right eye Left eye Full Full Neuro/Psych Oriented x3: Yes Mood/Affect: Normal External [...] lens, Open posterior capsule Anterior Vitreous s/p ppv, no cell s/p PPV, no c [facility] Care Teams Plant Health Care Technician Relationship Specialty Start Date End Date Sylvia Dawson PA [address] [facility] [address] [facility] [address] [place] [address] PCP - General Internal Medicine 01/05/20 Erica Rodrigues MD [address] [place] [address] [address] [place] [address] Radiation Oncologist Radiation Oncology 10/25/18 Gasper Kaba MD [address] [place] [address] Surgeon Surgical Oncology 10/25/18 Brandy Aguirre, WATER RESOURCE ENGINEER [address] [facility] [address] # LL [address] [place] [address] Nurse Practitioner Certified Clinical Nurse Specialist 10/25/18 Jo-Ann Morrow, PhD [address] [facility] [address] LL [address] [place] [address] Nurse Practitioner Radiation Oncology 10/25/18 Christina Louis, PYROMETER TEMPERATURE REGULATOR [address] [facility] [address] # LL [facility] [address] [place] [address] Nurse Practitioner Medical Oncology 10/25/18 Jessy Adame MD 49[address] [facility], [address] [place] [address] Consulting Physician Retina Ophthalmology 04/15/23 Harpal Carpio MD [address] [place] [address] Neurologist Neurology 04/15/23 Rossana Church DNP [address] [facility] [place] [address] Nurse Practitioner Nurse Practitioner 04/15/23 Zahida Kaplan PA [address] [facility] NEUROLOGY [facility] [address] [place] [address] Physician Spinning And Winding Supervisor Physician Spinning And Winding Supervisor 04/15/23 Fadi Cook PA [address] [facility] NEUROLOGY SLEEP [facility], [facility] [address] [place] [address] Physician Spinning And Winding Supervisor Sleep Medicine 04/15/23 Harpal De León MD [address] [facility] [address] [place] [address] Wrapper Stripper Cardiology 04/15/23 Valorie Young MD 49[address] [facility] 8B [facility] [place] [address] Wrapper Stripper Cardiology 04/15/23 Patricia Martinez MD 4921 [facility] RHEUMATOLOGY, [facility] [address] [place] [address] Consulting Physician Rheumatology 04/15/23 documented as of this encounter
--- OUTSIDE RECORDS SUMMARY | 2024-04-24 05:47 | XMS_ITS | Encounter Summary ---
Author Organization [facility] Address [address] [place] [address] Phone Care Team Providers Care Tree Killer Name Role Phone Erica Rodrigues MD Unavailable Gasper Kaba MD Unavailable Brandy Aguirre FORMING TUBE SELECTOR Unavailable Jo-Ann Morrow PhD Unavailable Christina Louis FRUIT AND VEGETABLE PARER Unavailable [phone] Sylvia Dawson Primary Care Provider [phone] Jessy Adame MD Unavailable Harpal Carpio MD Unavailable [phone] Rossana Church DNP Unavailable Zahida Kaplan Unavailable Fadi Cook Unavailable Harpal De León MD Unavailable Valorie Young MD Unavailable [phone] Patricia Martinez MD Unavailable [phone] Encounter Details Date Type Department Care Team (Late st Contact Info) Description 03/30/2024 Telephone [facility] Neuro Sleep [address] [place] [address] 6th [address] [place] [address] Norman Alves RPSGT Social History Tobacco Use Types Packs/Day Years [...] on file Legal Sex Female 3:42 AM YOUTH CAREER SPECIALIST Gender Identity Not on file Sexual Orientation Not on file 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 She says hertolerance is good, but it gets a little harder at levels above her current level. She will downloadher device today. She says she hasn't downloaded for awhile. H CAREER SPECIALIST documented in this encounter Plan of Treatment Not on file documented as of this encounter Visit Diagnoses Not on filedocumented in this encounter Care Teams Tree Killer Relationship Specialty Start Date End Date Sylvia Dawson PA [address] [facility] 500 [place] [address] PCP - General Internal Medicine 01/05/20 Erica Rodrigues MD [address] [place] [address] Radiation Oncologist Radiation Oncology 10/25/18 Gasper Kaba MD [address] [place] [address] Surgeon Surgical Oncology 10/25/18 Brandy Aguirre, FORMING TUBE SELECTOR [address] [place] [address] Nurse Practitioner Certified Clinical Nurse Specialist 10/25/18 Jo-Ann Morrow, PhD [address] [place] [address] Nurse Practitioner Radiation Oncology 10/25/18 Christina Louis, FRUIT AND VEGETABLE PARER [address] [place] [address] Nurse Practitioner Medical Oncology 10/25/18 Jessy Adame MD [address] [facility] DEPT OPHTHALMOLOGY, [address] [place] [address] Consulting Physician Retina Ophthalmology 04/15/23 Harpal Carpio MD [address] [place] [address] Neurologist Neurology 04/15/23 Rossana Church DNP [address] [facility] [place] [address] Nurse Practitioner Nurse Practitioner 04/15/23 Zahida Kaplan PA [address] [facility] GENERAL, [facility] [address] [place] [address] Physician Hoop Machine Operator Physician Hoop Machine Operator 04/15/23 Fadi Cook PA [address] [facility] SLEEP [facility], [facility] [address] [place] [address] Physician Hoop Machine Operator Sleep Medicine 04/15/23 Harpal De León MD [address] [place] [address] Jewellery Designer Cardiology 04/15/23 Valorie Young MD 49[address] [facility] [address] [place] [address] Jewellery Designer Cardiology 04/15/23 Patricia Martinez MD [address] [facility] [address] DIV IM RHEUMATOLOGY, [facility] [address] [place] [address] Consulting Physician Rheumatology 04/15/23 documented as of this encounter
--- OUTSIDE RECORDS SUMMARY | 2024-04-24 05:47 | XMS_ITS | Encounter Summary ---
Author Organization [facility] [employer] [facility] Address [address] [place] [address] Phone Care Team Providers Care Township Clerk Name Role Phone Erica Rodrigues MD Unavailable Gasper Kaba MD Unavailable Brandy Aguirre HAND WOVEN CARPET AND RUG MENDER Unavailable [phone] Jo-Ann Morrow PhD Unavailable [phone] Christina Louis HAND ROUNDER Unavailable [phone] Sylvia Dawson Primary Care Provider [phone] eJssy Adame MD Unavailable Harpal Carpio MD Unavailable Rossana Church DNP Unavailable Zahida Kaplan Unavailable Fadi Cook Unavailable [phone] Harpal De León MD Unavailable Valorie Young MD Unavailable Patricia Martinez MD Unavailable Reason for Referral * Diagnostic Lab (Routine) - Authorized Specialty Diagnoses / Procedures Referred By Contac t Referred To Contact Lab Diagnoses Dissection of carotid artery (CMS/HCC) (HCC) Cerebral arterial aneurysm Myopia of both eyes Benign familial hypermobility Encounter for nonprocreative genetic counseling Procedures Genomics ([facility]) Wen Montenegro MD [address] [place] [address] [address] [place] [address] Phone: tel: fax: Referral ID Status Reason Start Date Expiration Date V isits Requested Visits Authorized [id number] Authorized 10/27/2023 11/25/2024 1 1 Encounter Details Date Type Department Care Team (Latest Contact Info) Description 10/27/2023 2:00 PM CDT Telemedicine [facility] Pediatric Genetics [facility] 2nd [place] [address] [place] [address] Dissection of carotid artery (CMS/HCC) (HCC) (Primary Dx); Cerebral arterial aneurysm; Myopia of both eyes; [...] on file 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 Department of Pediatrics Division of Genetics & Genomic Medicine Genetic Counseling Clinic GENETIC COUNSELING NOTE This was a telemedicine visit with Yesika Denney and her mother & 2 sisters on the phone which took place via Real-time video connection (InTouch, Zoom or similar). During the visit, I was located at my home office in [place], [place], and the patient was located at her home in [place], [place]. The session started at 2:00PM and ended at 2:41PM. The patient: has been informed that the visit may not be secure and acknowledged the information. The option of participating in a telephone or video visit during the [facility]-[address] [place] [address] emergencywas explained to them. After being given an opportunity to ask questions about and discuss this type of visit, they verbally consented to proceeding with the telephone/video visit and understand thatthis service replaces an office visit. Reason For Visit Yesika Denney is a 63 y.o. female with a history of cerebral aneurysm, atraumatic bilateral carotid artery dissections, and a history of joint pain with seronegative rheumatoid arthritis. Yesika was seen for genetic counseling to consent for exome sequencing to [facility]. Yesika was accompanied to today's visit by her 2 sisters and mother via speaker phone. Yesika was seen by Dr. Montenegro on 03/23/2023; please see previous note for full medical and developmental history. Updates: Yesika went to the ER in 05/2023 because of heaviness in her chest. She believes it was found to be costochondritis and thought to be related to her RA. Maternal uncle was confirmed to have an aortic aneurysm and BAV. Social History Retired. Lives w/ spouse. Previous Genetic Testing Thoracic Aortic Aneurysm and Dissection Panel (TAAD)- negative Counseling/Education Consented Yesika today for exome sequencing (ES) at [facility]. We discussed the technology used to perform this testing, which is used to identify variants in thecoding portion (the exons) of the genome. Possible results that may be obtained include: POSITIVE - one or more diagnoses that explains the individual's medical problems NEGATIVE - no gene changes that appear to be diagnostic INCONCLUSIVE - variants of unknown significance Once testing is completed, [facility] will issue a report detailing any DNA variant that may be related to the clinical presentation for which the proband is being referred for testing. This may include variants in genes that are already known to cause human disease or variants in genes that can be reasonably expected to cause disease even if little is currently known about that gene. Current data suggests that ES identifies a diagnosis in approximately 30 to 40% of cases, depending on the proband's clinical presentation. A negative ES result does not rule out the possibility that a genetic condition is responsible for the proband's clinical presentation. This analysis does not provide data regarding variations that are known to be benign, variants associated with a small increase or decrease in the risk to develop common disorders (such as heart disease or arthritis), or some variations that predict an increased risk for diseases that occur at an advanced age for which there is no prevention or treatment (such as Alzheimer dementia). Variants in genes that are unrelated to the reported clinical features of the individual (so-called secondary orincidental findings) are also not reported with the exception of the ACMG-designated list of 81 genes (v3.2, 2022), which were reviewed. If the proband and family members elect to receive these results, each individual will receive their own secondary findings report. In order to perform this testing, both parental samples are preferable. We reviewed that while ES is performed on all the samples provided, the family member samples are only analyzed for findings inthe proband. Parental or other family member samples are used to assist in the analysis of identified variants. A report will only be issued for the proband. Since parental testing is performed, thistesting has the potential to identify non-familial relationships and, if identified, this information will be revealed to the family. Once a person's exome has been sequenced, the lab will filter through all of the variants using theclinical information provided and the samples from family members (if available). Each variant thatis deemed potentially important is then reviewed by a team of geneticists and variant scientists who will determine if any of the variants are likely to be related to the proband's clinical presentation. All variants detected by exome sequencing are interpreted based on our current understanding ofthe genes and that interpretation is therefore subject to size changer time. For this reason, it is strongly recommended that families undergoing this testing continue to follow up with Genetics over time. We discussed that ES does not evaluate 100% of every gene and not all of the genes included are fully analyzed because of technological limitations. Additionally, ES is not able to identify certain types of variants such as those located in introns or regulatory regions, trinucleotide repeats, uniparental disomy, translocations, inversions, copy number variants, variants in certain patented genes, and epigenetic changes. Consequently, even if this testing does not identify a diagnosis, the proband could still have a genetic condition. We discussed the emotional implications of this testing, including the benefits of identifying a diagnosis and the difficulties in dealing with the uncertainties that may be raised by this testing. In the event that a diagnosis is made through ES, it may not provide information regarding the severity or prognosis of the condition. We discussed the Genetic Information Nondiscrimination Act (MELISSA) and its implications for employment and health, disability, and life insurance. We discussed that results should be available in 2-3 months. When results are available, we will contact Yesika Mandujano to briefly discuss any agustin points and then schedule a follow-up visit to discuss theresults at length. Mother: Shruthi Appiah 03/23/1935 Yesika's mother has a bicuspid aortic valve and was diagnosed with a thoracic aortic aneurysm at 66y.She is hypermobile. She has a history of polio, HTN, osteoporosis, afib (ablation), and macular degeneration. Father: Passed at 89yo. He had joint pain, arthritis, HTN, dementia, metastatic cancer, hypercholesterolemia, and benign prostatic hyperplasia Assessment & Plan Exome sequencing-duo to [facility]. Insurance approved of testing until 11/30/2023.Estimated OOP $250 Yesika ELECTED to receive results for the recommended ACMG secondary findings list of 81 genes (v3.2,2022). Yesika's mother is unsure if she wants secondary findings and would like to think about it. She will have Yesika Mandujano tell us her decision. We will wait to send buccal kits until we know what Yesika Mandujano'smother would like to do for secondary findings. Addendum 10/30/23: received [employer] message that Yesika Mandujano's mother would like to OPT-IN to secondary findings. Possible re-contact for research participation reviewed. Yesika and Yesika's mother elected to be re-contacted for research studies. Buccal swabs will be sent to Yesika's address for all samples that need to be collected. Yesika's would like to be contacted by our research coordinator regarding the UMD project at a later date. Any and all results to be disclosed to Yesika Mandujano. For additional details regarding this testing, please refer to the scanned copy of the consent formin Yesika's chart. Closing Thank you for allowing us to participate in Yesika's care. Do not hesitate to contact us at if you have further questions. Jennifer Arzola MS, [facility] Certified Genetic Counselor [facility] Attestation A total of 41 minutes were spent [id number] providing genetic counseling. documented in this encounter Plan of Treatment Not on file documented as of this encounter Results * Genomics ([facility]) (10/27/2023 2:55 PM CDT) GENETIC ANALYSIS OVERALL INTERPRETATION Inconclusive [facility] GENETIC ANALYSIS REPORT Please see report PDF [facility] Buccal Smear 10/27/2023 2:55 PM CDT 11/12/2023 11:20 AM CDT Narrative [facility] - 12/14/2023 3:31 PM CDT This result has genomic variants that were not included in this document. REPORT IMAGES AND/OR SCANNED DOCUMENTS ONLY VIEWABLE IN PDF FORMAT us Wen Montenegro MD LAB GENETIC TESTING Final Result [facility] [address] [place] [address] documented in this encounter Visit Diagnoses Diagnosis Dissection of carotid artery (CMS/HCC) (HCC)- Primary Dissection of carotid artery Cerebral arterial aneurysm Cerebral aneurysm, nonruptured Myopia of both eyes Benign familial hypermobility Encounter for nonprocreative genetic counseling Dissection of carotid artery (CMS/HCC) (HCC) Dissection of carotid artery Cerebral arterial aneurysm Cerebral aneurysm, nonruptured Myopia of both eyes Benign familial hypermobility Encounter for nonprocreative genetic counseling documented in this encounter Care Teams Township Clerk Relationship Specialty Start Date End Date Sylvia Dawson PA [address] [place], [place] [id number] PCP - General Internal Medicine 01/05/20 Erica Rodrigues MD [address] [facility] [address] [facility] [address] [place] [address] Radiation Oncologist Radiation Oncology 10/25/18 Gasper Kaba MD [address] [facility] [address] [place] [address] Surgeon Surgical Oncology 10/25/18 Brandy Aguirre CNS [address] [facility] [address] [place] [address] Nurse Practitioner Certified Clinical Nurse Specialist 10/25/18 Jo-Ann Morrow, PhD [address] [facility] [address] [place] [address] Nurse Practitioner Radiation Oncology 10/25/18 Christina Louis, JENNI [address] [facility] [address] [place] [address] Nurse Practitioner Medical Oncology 10/25/18 Jessy Adame MD [address] [facility] [place] DEPT OPHTHALMOLOGY, [address] [place] [address] Consulting Physician Retina Ophthalmology 04/15/23 Harpal Carpio MD [address] [place] [address] Neurologist Neurology 04/15/23 Rossana Church DNP [address] [place] [address] Nurse Practitioner Nurse Practitioner 04/15/23 Zahida Kaplan PA [address] DIV NEUROLOGY [facility], [facility] [address] [place] [address] Physician Tick Inspector Physician Tick Inspector 04/15/23 Fadi Cook PA [address] [facility]OLOGY SLEEP [facility], [facility] [address] [place] [address] Physician Tick Inspector Sleep Medicine 04/15/23 Harpal De León MD [address] [facility] [address] [place] [address] Mail Handler Cardiology 04/15/23 Valorie Young MD [address] [facility] [address] [place] [address] Mail Handler Cardiology 04/15/23 Patricia Martinez MD [address] [facility] DIV IM RHEUMATOLOGY, [address] [address] Consulting Physician Rheumatology 04/15/23 documented as of this encounter
--- OUTSIDE RECORDS SUMMARY | 2024-04-24 05:47 | XMS_ITS | Encounter Summary ---
Author Organization [facility] Address [address] [place] [address] Phone Care Team Providers Care Accountant Bookkeeper Name Role Phone Erica Rodrigues MD Unavailable Gasper Kaba MD Unavailable Brandy Aguirre LOOP DRIER OPERATOR Unavailable Jo-Ann Morrow PhD Unavailable [phone] Christina Louis ASSISTED LIVING ASSOCIATE Unavailable [phone] Sylvia Dawson Primary Care Provider [phone] Jessy Adame MD Unavailable Harpal Carpio MD Unavailable [phone] Rossana Church DNP Unavailable Zahida Kaplan Unavailable Fadi Cook Unavailable Harpal De León MD Unavailable Valorie Young MD Unavailable Patricia Martinez MD Unavailable [phone] Encounter Details Date Type Department Care Team (Late st Contact Info) Description 11/16/2023 Telephone [facility] Neuro Sleep [address] [place] [address] 6th Floor [address] [place] [address] Maria Alejandra Molina CMA Social History Tobacco Use Types Packs/Day Years [...] on file 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 Please advise documented in this encounter Plan of Treatment Not on file documented as of this encounter Visit Diagnoses Not on filedocumented in this encounter Care Teams Accountant Bookkeeper Relationship Specialty Start Date End Date Sylvia Dawson PA [address] [facility] 500 [place] [address] PCP - General Internal Medicine 01/05/20 Erica Rodrigues MD [address] [facility] [address] LL [facility] [address] [place] [address] Radiation Oncologist Radiation Oncology 10/25/18 Gasper Kaba MD [address] [facility] [address] [facility] [address] [place] [address] Surgeon Surgical Oncology 10/25/18 Brandy Aguirre, LOOP DRIER OPERATOR [address] [facility] [address] [facility] [address] [place] [address] Nurse Practitioner Certified Clinical Nurse Specialist 10/25/18 Jo-Ann Morrow, PhD [address] [facility] [address] [facility] [address] [place] [address] Nurse Practitioner Radiation Oncology 10/25/18 Christina Louis, ASSISTED LIVING ASSOCIATE [address] [facility] [address] [facility] [address] [place] [address] Nurse Practitioner Medical Oncology 10/25/18 Jessy Adame MD 49[address] [facility] DEPT OPHTHALMOLOGY, [address] [place] [address] Consulting Physician Retina Ophthalmology 04/15/23 Harpal Carpio MD [address] [place] [address] Neurologist Neurology 04/15/23 Rossana Church DNP [address] [place] [address] Nurse Practitioner Nurse Practitioner 04/15/23 Zahida Kaplan PA [address] [facility], [address] [place] [address] Physician Vocational Adviser Physician Vocational Adviser 04/15/23 Fadi Cook PA [address] [facility] NEUROLOGY SLEEP [facility], [facility] [address] [place] [address] Physician Vocational Adviser Sleep Medicine 04/15/23 Harpal De León MD [address] [facility] [address] [place] [id number] Larriman Helper Cardiology 04/15/23 Valorie Young MD 49[address] [facility] 8B [facility] [place] [address] Larriman Helper Cardiology 04/15/23 Patricia Martinez MD [address] [facility] IM RHEUMATOLOGY, [address] [address] Consulting Physician Rheumatology 04/15/23 documented as of this encounter
--- OUTSIDE RECORDS SUMMARY | 2024-04-24 05:47 | XMS_ITS | Encounter Summary ---
Author Organization [facility] Address [address] [place] [address] Care Team Providers Care Otr Flatbed Driver Name Role Phone Erica Rodrigues MD Unavailable Gasper Kaba MD Unavailable Brandy Aguirre BOW REHAIRER Unavailable Jo-Ann Morrow PhD Unavailable [phone] Christina Louis CONSULTING SERVICES ASSOCIATE Unavailable [phone] Sylvia Dawson Primary Care Provider [phone] Jessy Adame MD Unavailable Harpal Carpio MD Unavailable Ranjit Rossana Alicia 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 Gender Identity Not on file Sexual Orientation Not on file 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 on file Not on file Not on file documented as of this encounter Progress Notes * Coni Corbin LPN - 04/05/2024 1:58 PM CST Follow up labs placed per PCP REAL SCIENTIST documented in this encounter Plan of Treatment Scheduled Orders Name Type Priority Associated Diagnoses Orde r Schedule Vitamin B12 Lab Routine Elevated MCV Expected: 04/08/2024, Expires: 04/05/2025 Folate Lab Routine Elevated MCV Expected: 04/08/2024, Expires: 04/05/2025 documented as of this encounter Visit Diagnoses Diagnosis Elevated MCV- Primary Other abnormality of red blood cells documented in this encounter Care Teams Otr Flatbed Driver Relationship Specialty Start Date End Date Sylvia Dawson PA [address] [place] [address] PCP - General Internal Medicine 01/05/20 Erica Rodrigues MD [address] [facility] [address] [facility] [address] [place] [address] Radiation Oncologist Radiation Oncology 10/25/18 Gasper Kaba MD [address] [facility] [address] [facility] [address] [place] [address] Surgeon Surgical Oncology 10/25/18 Brandy Aguirre, BOW REHAIRER [address] [facility] [address] [facility] [address] [place] [address] Nurse Practitioner Certified Clinical Nurse Specialist 10/25/18 Jo-Ann Morrow, PhD [address] [facility] [address] [facility] [address] [place] [address] Nurse Practitioner Radiation Oncology 10/25/18 Christina Louis, CONSULTING SERVICES ASSOCIATE [address] [facility] [address] [facility] [address] [place] [address] Nurse Practitioner Medical Oncology 10/25/18 Jessy Adame MD [address] [facility] DEPT OPHTHALMOLOGY, [address] [place] [address] Consulting Physician Retina Ophthalmology 04/15/23 Harpal Carpio MD [address] [place] [address] Neurologist Neurology 04/15/23 Rossana Church DNP [address] [facility] [place] [address] Nurse Practitioner Nurse Practitioner 04/15/23 Zahida Kaplan PA [address] [facility] DIV NEUROLOG[address] [facility], [address] [address] Physician Baby Sitter Physician Baby Sitter 04/15/23 Fadi Cook PA [address] [facility] DIV NEUROLOGY SLEEP [facility], [address] [address] Physician Baby Sitter Sleep Medicine 04/15/23 Harpal De León MD [address] [facility] [address] [place] [address] Fertilizing Machine Operator Cardiology 04/15/23 Valorie Young MD [address] [facility] [address] DIV [place] [address] Fertilizing Machine Operator Cardiology 04/15/23 Patricia Martinez MD [address] [facility] DIV IM RHEUMATOLOGY, [address] [address] Consulting Physician Rheumatology 04/15/23 documented as of this encounter
--- OUTSIDE RECORDS SUMMARY | 2024-04-24 05:47 | XMS_ITS | Encounter Summary ---
Author Organization [facility] [employer] [facility] Address [address] [place] [address] Phone Care Team Providers Care Chemistry Lecturer Name Role Phone Erica Rodrigues MD Unavailable Gasper Kaba MD Unavailable Brandy Aguirre INDUSTRIAL ORGANIZATION MANAGER Unavailable Jo-Ann Morrow PhD Unavailable Christina Louis VALET MANAGER Unavailable [phone] Sylvia Dawson Primary Care Provider [phone] Jessy Adame MD Unavailable Harpal Carpio MD Unavailable Rossana Church DNP Unavailable Zahida Kaplan Unavailable Fadi Cook Unavailable [phone] Harpal De León MD Unavailable Valorie Young MD Unavailable [phone] Patricia Martinez MD Unavailable Reason for Referral * MRI/CAT/PET Scan (Routine) - Closed Specialty Diagnoses / Procedures Referred By Contac t Referred To Contact Radiology Diagnoses Cerebral aneurysm, nonruptured Procedures CTA Head Neck W WO Lizzie Benito, JENNI [address] [place] [address] Phone: tel: fax: [facility] [address] [facility] [place] [address] Referral ID Status Reason Start Date Expiration Date Visits Re quested Visits Authorized [id number] Closed 03/21/2024 05/19/2024 1 1 TRICAL TECH/PROJECT MANAGER Encounter Details Date Type Department Care Team (Late st Contact Info) Description 03/08/2024 Orders Only [facility] Neurosurgery [address] [facility] Advanced Medicine 6th [place] [address] [place] [address] Sophia Durbin RN Cerebral aneurysm, nonruptured (Primary Dx) Social History Tobacco Use Types [...] on file Legal Sex Female 3:42 AM ELECTRICAL TECH/PROJECT MANAGER Gender Identity Not on file Sexual Orientation Not on file 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 ??Filling of the device neck is again noted. 2. Bilateral cervical internal carotid artery stents appear patent. Dictated by: Adonis Bhatti D.O. The radiology attending physician has personally reviewed this study, and had reviewed and/or edited this written report and agrees with it. Electronically signed by: Kaye Jc M.D. Narrative 04/04/2024 12:35 PM ELECTRICAL TECH/PROJECT MANAGER EXAMINATION: 1. Computed tomography angiography (CTA) of [...] signed by: Kaye Jc M.D. Lizzie Green VALET MANAGER IMG CT PROCEDURES Final Re sult documented in this encounter Visit Diagnoses Diagnosis Cerebral aneurysm, nonruptured- Primary Cerebral aneurysm, nonruptured documented in this encounter Care Teams Chemistry Lecturer Relationship Specialty Start Date End Date Sylvia Dawson PA [address] [facility] [address] [place] [address] PCP - General Internal Medicine 01/05/20 Erica Rodrigues MD [address] [facility] [address] [place] [address] Radiation Oncologist Radiation Oncology 10/25/18 aGsper Kaba MD [address] [facility] [address] [place] [address] Surgeon Surgical Oncology 10/25/18 Brandy Aguirre CNS [address] [facility] [address] [place] [address] Nurse Practitioner Certified Clinical Nurse Specialist 10/25/18 Jo-Ann Morrow, PhD [address] [facility] [address] [place] [address] Nurse Practitioner Radiation Oncology 10/25/18 Christina Louis VALET MANAGER [address] [facility] [address] [place] [address] Nurse Practitioner Medical Oncology 10/25/18 Jessy Adame MD [address] [facility], [address] [place] [address] Consulting Physician Retina Ophthalmology 04/15/23 Harpal Carpio MD [address] [place] [address] Neurologist Neurology 04/15/23 Rossana Church DNP [address] [facility] [place] [address] Nurse Practitioner Nurse Practitioner 04/15/23 Zahida Kaplan PA [address] [facility], [address] [address] Physician Hyperion Developer Physician Hyperion Developer 04/15/23 Fadi Cook PA [address] [facility] NEUROLOGY SLEEP [facility] [address] [place] [address] Physician Hyperion Developer Sleep Medicine 04/15/23 Harpal De León MD [address] [facility] [address] [place], [place] [id number] Data Miner Cardiology 04/15/23 Valorie Young MD [address] [facility] [address] [facility] [place] [address] Data Miner Cardiology 04/15/23 Patricia Martinez MD [address] [facility] IM RHEUMATOLOGY, [address] [address] Consulting Physician Rheumatology 04/15/23 documented as of this encounter
--- OUTSIDE RECORDS SUMMARY | 2024-04-24 05:47 | XMS_ITS | Encounter Summary ---
Author Organization [facility] [employer] [facility] Address [address] [place] [address] Phone Care Team Providers Care Geotechnical Laboratory Technician Name Role Phone Erica Rodrigues MD Unavailable Gasper Kaba MD Unavailable Brandy Aguirre POLICE AND FIRE DISPATCHER Unavailable Jo-Ann Morrow PhD Unavailable Christina Louis RUSSIAN LANGUAGE INSTRUCTOR Unavailable [phone] Sylvia Dawson Primary Care Provider [phone] Jessy Adame MD Unavailable Harpal Carpio MD Unavailable [phone] Rossana Church DNP Unavailable [phone] Zahida Kaplan Unavailable Fadi Cook Unavailable [phone] Harpal De León MD Unavailable [phone] Valorie Young MD Unavailable [phone] Patricia Martinez MD Unavailable Reason for Visit * Reason Onset Date Comments Test Results 12/15/2023 Encounter Details Date Type Department Care Team (Late st Contact Info) Description 12/15/2023 Telephone [facility] 2nd [place] [address] [place] [address] Wen Montenegro MD [address] [facility] [address] [place] [address] Test Results Social History Tobacco Use Types Packs/Day Years [...] on file Legal Sex Female 3:42 AM SENIOR APPLICATION SECURITY CONSULTANT Gender Identity Not on file Sexual Orientation Not on file 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 Not on file Not on file documented as of this encounter Miscellaneous Notes * Telephone Encounter - Wen Montenegro MD - 12/15/2023 11:55 AM CDT Genetics Results Note Date: 12/15/23 Test/Study: Whole Exome Sequencing - [facility] ([facility]) Results: Non-Diagnostic Gene Variant Name Allelic State DNA Change Amino Acid Change Variant Source 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 Most pathogenic variants in NOTCH3 affect cysteine residues within the EGF-like domains. While this variant lies within the EGF- like domain, it does not affect a cysteine residue. While I can not conclusively determinewhat, if any effect this variant may have on Yesika Mandujano's healthy, I do not feel like this is the explanation for her symptoms. I do not recommend any additional genetic testing at this time. Recommendations Follow up PRN Please call with any questions or if patient's clinical condition changes . Wen Montenegro MD, PhD [facility] in [place] documented in this encounter Plan of Treatment Not on file documented as of this encounter Visit Diagnoses Not on filedocumented in this encounter Care Teams Geotechnical Laboratory Technician Relationship Specialty Start Date End Date Sylvia Dawson PA [address] [facility] [address] [place] [id number] PCP - General Internal Medicine 01/05/20 Erica Rodrigues MD [address] [facility] [address] LL [facility] [address] [place] [address] Radiation Oncologist Radiation Oncology 10/25/18 Gasper Kaba MD [address] LL [facility] [address] [place] [address] Surgeon Surgical Oncology 10/25/18 Brandy Aguirre, CARINA [address] [facility] [address] LL [facility] [address] [place] [address] Nurse Practitioner Certified Clinical Nurse Specialist 10/25/18 Jo-Ann Morrow, PhD [address] [facility] [address] [place] [address] Nurse Practitioner Radiation Oncology 10/25/18 Christina Louis NP [address] [facility] [address] [place] [address] Nurse Practitioner Medical Oncology 10/25/18 Jessy Adame MD [address] [facility] OPHTHALMOLOGY, [address] [place] [address] Consulting Physician Retina Ophthalmology 04/15/23 Harpal Carpio MD [address] [place] [address] Neurologist Neurology 04/15/23 Rossana Church DNP [address] [place] [address] Nurse Practitioner Nurse Practitioner 04/15/23 Zahida Kaplan PA [address] [facility] NEUROLOGY GENERAL, [address] [place] [address] Physician Cooker Pie Filling Physician Cooker Pie Filling 04/15/23 Fadi Cook PA [address] [facility] NEUROLOGY SLEEP MED, [address] [place] [address] Physician Cooker Pie Filling Sleep Medicine 04/15/23 Harpal De León MD [address] [place] [address] Pier Runner Cardiology 04/15/23 Valorie Young MD [address] [place] [address] Pier Runner Cardiology 04/15/23 Patricia Martinez MD [address] [facility] DIV RHEUMATOLOGY, [address] [address] Consulting Physician Rheumatology 04/15/23 documented as of this encounter
--- OUTSIDE RECORDS SUMMARY | 2024-04-24 05:47 | XMS_ITS | Encounter Summary ---
Author Organization [facility] Address [address] [place] [address] Phone Care Team Providers Care Station Mechanic Apprentice Name Role Phone Erica Rodrigues MD Unavailable Gasper Kaba MD Unavailable Brandy Aguirre HAZARDOUS WASTE MATERIAL TECHNICIAN Unavailable Jo-Ann Morrow PhD Unavailable Christina Louis LIFE INSURANCE UNDERWRITER Unavailable [phone] Sylvia Dawson Primary Care Provider [phone] Jessy Adame MD Unavailable Harpal Carpio MD Unavailable Rossana Church DNP Unavailable Zahida Kaplan Unavailable Fadi Cook Unavailable Harpal De León MD Unavailable [phone] Valorie Young MD Unavailable Patricia Martinez MD Unavailable Encounter Details Date Type Department Care Team (Late st Contact Info) Description 03/24/2024 4:00 PM MEDICAL TECHNICIAN ASSISTANT Office Visit [facility] Rheumatology Pending sale to [facility] Medicine [address] [place] [address] [place] [address] Patricia Martinez MD [address] [facility] [address] [place] [address] Rheumatoid arthritis with negative rheumatoid factor, involving unspecified site (HCC) (Primary Dx); High risk medication use; Scleritis and episcleritis of left eye; Trigger little finger of right hand Social History Tobacco Use Types Packs/Day Years [...] on file Legal Sex Female 3:42 AM MEDICAL TECHNICIAN ASSISTANT Gender Identity Not on file Sexual Orientation Not on file 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 Not on file Not on file Not on file documented as of this encounter Last Filed Vital Signs Vital Sign Reading Time Taken Comments Blood Pressure 137/70 03/24/2024 4:15 PM MEDICAL TECHNICIAN ASSISTANT Pulse 63 03/24/2024 4:15 PM MEDICAL TECHNICIAN ASSISTANT Temperature 37.2 ??C (99 ??F) 03/24/2024 4:15 PM MEDICAL TECHNICIAN ASSISTANT Respiratory Rate - - Oxygen Saturation - - Inhaled Oxygen Concentration - - Weight 69.4 kg (153 lb) 03/24/2024 4:15 PM MEDICAL TECHNICIAN ASSISTANT Height 160 cm (5' 3 ) 03/24/2024 4:15 PM MEDICAL TECHNICIAN ASSISTANT Body Mass Index 27.1 03/24/2024 4:15 PM MEDICAL TECHNICIAN ASSISTANT documented in this encounter Progress Notes * Patricia Martinez MD - 03/24/2024 4:00 PM CST Rheumatology PATIENT NAME: Yesika Denney : 1960 STEVEN: 03/24/2024 Subjective Chief Complaint: Follow-up seronegative rheumatoid arthritis HPI: Yesika Denney is a 63 y.o. 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 Current management is methotrexate 20 mg weekly plus sulfasalazine 1000 mg b.i.d.. She was last seen on August 26. Interval History: Since last visit, she notes that overall she has had no significant morning stiffness gelling but has developed pain in her R 5th finger pain PIP and she was given a Medrol Dosepak February 23 which really did not help. She notes however that it tends to lock and trigger. She does not have generalized morning stiffness or gelling. She has no other painful joints. No other interval extra-articular symptoms except occasional disc behind her left eye but she not had a frankly erythematous painful. She is following up closely with Dr. Elmore as there has been some low-grade activity there but not to the degree of her initial presentation. Disease Treatment History(Reviewed/revised 08/27/2023): May 10 2015 -initiation of anastrazole and 1 week later onset of polyarticular joint inflammation, +Fhx 2 sisters with RA, one cousin with SLE RF/CCP negative. Started on prednisone, MTX 12/2015- HCQ 200 mg added 02/2016 SSZ added at 500 mg bid 11/2017 Scleritis requiring short term oral prednisone, HLA B-27 negative 08/16/18 bone densities with T-score -0.9 femoral neck, -0.2 in the spine 02/28/2019 repeat hand and foot radiographs demonstrate only erosion of the right 3rd metacarpal head unchanged from 2017 with mild osteoarthritis present 04/2021-repeat hand films demonstrate no interval changes 09/25/2022, hydroxychloroquine discontinued 2023 SSZ increased to 1 gm bid for intermittant inflammatory arthritis, scleritis Review: Stunkel 1/ for anisocoria, transient visual loss but resolution on exam and no new signs of stroke /new findings on MRI brain/orbits, Adame 04/29 for cystoid macular edema with punctate epithelial deposits treated with Durezol gtt and changed to prednisolone by Dr Elmore with resolution 07/26 Objective Current Outpatient Medications: acetaminophen (TYLENOL) 325 mg tablet, Take 2 tablets (650 mg total) by mouth every 6 (six) hours as needed for pain Do not exceed 4000 mg of acetaminophen in a 24 hour period., Disp: , Rfl: aspirin 81 mg enteric coated tablet, Take 1 tablet (81 mg total) by mouth daily, Disp: 90 tablet, Rfl: 3 atenoloL (TENORMIN) 25 mg tablet, TAKE 1 TABLET(25 MG) BY MOUTH DAILY, Disp: 90 tablet, Rfl: 2 sncweswdlc-vfakrnoytirui-qbbjhcwr-codeine (FIORICET WITH CODEINE) 15-918-79-30 mg per capsule, Take1 capsule by mouth every 6 (six) hours as needed for headaches, Disp: 10 capsule, Rfl: 0 ezetimibe (ZETIA) 10 mg tablet, Take 1 tablet (10 mg total) by mouth daily, Disp: 90 tablet, Rfl: 3 famotidine-Ca carb-mag hydrox (PEPCID COMPLETE) 10-800-165 mg chewable tablet, Take 1 tablet by mouth daily as needed for heartburn, Disp: , Rfl: FLUoxetine (PROzac) 20 mg capsule, Take 1 capsule (20 mg total) by mouth daily, Disp: , Rfl: folic acid (FOLVITE) 1 mg tablet, TAKE 2 TABLETS(2000 MCG) BY MOUTH DAILY, Disp: 180 tablet, Rfl: 3 hydroCHLOROthiazide (HYDRODIURIL) 12.5 mg tablet, TAKE 1 TABLET(12.5 MG) BY MOUTH DAILY (Patient taking differently: Take 1 tablet (12.5 mg total) by mouth daily as needed (for HTN)), Disp: 90 tablet, Rfl: 1 lisinopriL (PRINIVIL,ZESTRIL) [...] TAKE 8 TABLETS BY MOUTH WEEKLY ON THURSDAY, Disp: 96 tablet, Rfl: 2 multivitamin with minerals tablet, Take 1 tablet by mouth every morning, Disp: , Rfl: Nurtec ODT tablet,disintegrating, Take 1 tablet (75 mg total) by mouth daily as needed (migraine), Disp: 8 tablet, Rfl: 2 sulfaSALAzine EN (AZULFIDINE EN) 500 mg EC tablet, TAKE 2 TABLETS BY MOUTH TWICE DAILY, Disp: 360 tablet, Rfl: 0 valACYclovir (VALTREX) 500 mg tablet, Take 1 tablet (500 mg total) by mouth daily, Disp: 90 tablet,Rfl: 1 vit Z-F-qoyfgl-zinc-lutein (PreserVision Lutein) 226-90-0.8-5 mg capsule, Take 1 tablet by mouth 2 (two) times a day, Disp: , Rfl: zolpidem (AMBIEN) 5 mg tablet, Take 1 tablet (5 mg total) by mouth nightly as needed for sleep, Disp: 30 tablet, Rfl: 2 Physical Exam BP 137/70 (BP Location: Left arm, Patient Position: Sitting) Pulse 63 Temp 37.2 ??C (99 ??F) (Oral) Ht 160 cm (5' 3 ) Wt 69.4 kg (153 lb) LMP (LMP Unknown) BMI 27.10 kg/m?? GEN: NAD, WDWN SKIN: No rash HEENT: PEERL, Conjunctivae are clear. Chest wall without tenderness today EXT: No LE edema. MSK: No active synovitis in a standard 28 jt count with the exceptions of there is some mild soft tissue swelling at the left PIP joint and on evaluation of the palmar aspect there is a tender A1 devin with palpable trigger. She is also somewhat hyper mobile in this joint. PSYCH: Appropriate affect. Labs: TAAD genetic panel negative Procedure: Right flexor tendon sheath injection Indication: Symptomatic triggering The risks of septic tenosynovitis, skin depigmentation, inefficacy, sheath rupture were discussed with the patient as well as the alternatives no injection, referral to hand specialist for surgical release and the patient elected to proceed. After the patient thoroughly washed their hands, chlorhexidine preparation x2 was utilized with topical ethyl chloride for anesthesia and subsequently 15 milligrams of Depo-Medrol +0.1 mL 1% lidocaine was injected into the affected flexor tendon sheath with a 30 gauge needle. Patient tolerated thiswell. Assessment Assessment: Problem List Items Addressed This Visit Rheumatology Problems Rheumatoid arthritis with negative rheumatoid factor (HCC) - Primary Relevant Orders CBC with auto differential Comprehensive metabolic panel CRP (acute phase) Erythrocyte sedimentation rate XR Hand Bilateral 3 or More Views of Each Scleritis and episcleritis of left eye Trigger little finger of right hand Other High risk medication use Relevant Orders CBC with auto differential Comprehensive metabolic panel CRP (acute phase) Erythrocyte sedimentation rate 63-year-old white female with seronegative rheumatoid arthritis with more recent onset scleritis presents today no overt ocular inflammation in new onset trigger finger in her non dominant hand. No repetitive movement with this. We discussed risks and benefits and she elected to proceed with a flexor tendon sheath injection given she has had few months symptoms. There is some minor anterior soft tissue swelling that does not feel like synovitis and may be related to the mechanics of her triggerfinger. I would like to update her radiographs of her hands and obtain monitoring laboratories. I reviewed the patient's prior visit August 26 and health assessment questionnaire.Current diseaseactivity is low. Immunizations: Immunization History Administered Date(s) Administered Influenza, Quadrivalent, Cell Culture-based MDCK, Preservative Free, Antibiotic Free, Pkhmjvpatefmu71/04/2018 Influenza, Quadrivalent, Split, Preservative Free, Intramuscular 01/05/2020, 02/26/2021, 02/27/2022, 04/01/2023 Influenza, Trivalent, IM (MDV) 01/27/2018 Influenza, Trivalent, Preservative Free, Intramuscular 02/24/2017, 03/23/2024 Influenza, Unspecified 01/11/2019 Pfizer SARS-CoV-2 Monovalent Vaccination (12+ Yrs) BEASLEY-READY TO USE 05/14/2021 Pfizer SARS-CoV-2 Monovalent Vaccination (12+ Yrs) PURPLE 10/12/2020, 11/08/2020 Tdap 02/27/2022 ZOSTER Recombinant 02/23/2020, 05/01/2020 Reviewed 03/24/2024 Follow-up: Return in about 6 months (around 09/22/2024). CAL TECHNICIAN ASSISTANT documented in this encounter Plan of Treatment Scheduled Orders Name Type Priority Associated Diagnoses Orde r Schedule XR Hand Bilateral 3 or More Views of Each Imaging Schedule Routine, Read Routine (OP Routine) Rheumatoid arthritis with negative rheumatoid factor, involving unspecified site (HCC) Expected: 03/24/2024, Expires: 03/24/2025 documented as of this encounter Procedures Procedure Name Priority Date/Time Associated Diagnosis Comments CBC WITH AUTO DIFFERENTIAL Routine 04/04/2024 11:50 AM MEDICAL TECHNICIAN ASSISTANT Rheumatoid arthritis with negative rheumatoid factor, involving unspecified site (HCC) High risk medication use ERYTHROCYTE SEDIMENTATION RATE Routine 04/04/2024 11:50 AM MEDICAL TECHNICIAN ASSISTANT Rheumatoid arthritis with negative rheumatoid factor, involving unspecified site (HCC) High risk medication use CRP (ACUTE PHASE) Routine 04/04/2024 11: 50 AM MEDICAL TECHNICIAN ASSISTANT Rheumatoid arthritis with negative rheumatoid factor, involving unspecified site (HCC) High risk medication use COMPREHENSIVE METABOLIC PANEL Routine 04/04/2024 11:50 AM MEDICAL TECHNICIAN ASSISTANT Rheumatoid arthritis with negative rheumatoid factor, involving unspecified site (HCC) High risk medication use documented in this encounter Results * Erythrocyte sedimentation rate (04/04/2024 11:50 AM MEDICAL TECHNICIAN ASSISTANT) Pathologist [facility] Erythrocyte sedimentation rate 2 0 - 40 mm/hr [facility] - 01 Blood 04/04/2024 11:5 0 AM MEDICAL TECHNICIAN ASSISTANT 04/04/2024 Narrative [facility] - 04/05/2024 7:08 AM MEDICAL TECHNICIAN ASSISTANT Performed at: ??01 - [facility] [address] ??[id number] Binder Coverstitch: John Lozoya PhD, Phone: ??[phone] us Patricia Martinez MD LAB BLOOD ORDERABLES Final R esult [facility] - 01 * CRP (acute phase) (04/04/2024 11:50 AM MEDICAL TECHNICIAN ASSISTANT) CRP 2 0 - 10 mg/L [facility] - 01 Blood 04/04/2024 11:5 0 AM MEDICAL TECHNICIAN ASSISTANT 04/04/2024 Narrative [facility] - 04/05/2024 12:08 PM MEDICAL TECHNICIAN ASSISTANT Performed at: ??01 - [facility], [place], [place] ??[id number] Binder Coverstitch: John Lozoya PhD, Phone: ??[phone] us Patricia Martinez MD LAB BLOOD ORDERABLES Final R esult [facility] - 01 * (ABNORMAL) Comprehensive metabolic panel (04/04/2024 11:50 AM MEDICAL TECHNICIAN ASSISTANT) Glucose 91 70 - 99 mg/dL [facility] [...] - 01 Blood 04/04/2024 11:5 0 AM MEDICAL TECHNICIAN ASSISTANT 04/04/2024 Narrative [facility] - 04/05/2024 7:08 AM MEDICAL TECHNICIAN ASSISTANT Performed at: ?? - [facility] [address], [place], [place] ??[id number] Binder Coverstitch: John Lozoya PhD, Phone: ??[phone] us Patricia Martinez MD LAB BLOOD ORDERABLES Final R esult [facility] - 01 * (ABNORMAL) CBC with auto differential (04/04/2024 11:50 AM MEDICAL TECHNICIAN ASSISTANT) WBC 4.7 3.4 - 10.8 x10E3/uL [facility] [...] - 01 Blood 04/04/2024 11:5 0 AM MEDICAL TECHNICIAN ASSISTANT 04/04/2024 Narrative [facility] - 04/05/2024 7:08 AM MEDICAL TECHNICIAN ASSISTANT Performed at: ??01 - [facility] [address], [place], [place] ??[id number] Binder Coverstitch: John Lozoya PhD, Phone: ??[phone] us Patricia Martinez MD LAB BLOOD ORDERABLES Final R esult [facility] - Anshu documented in this encounter Visit Diagnoses Diagnosis Rheumatoid arthritis with negative rheumatoid factor, involving unspecified site (HCC)- Primary High risk medication use Scleritis and episcleritis of left eye Trigger little finger of right hand documented in this encounter Administered Medications Inactive Administered Medications - up to 3 most recent administrations Medication Order MAR Action Action Date Dose Rate Site methylPREDNISolone acetate (DEPO-medrol) injection 40 mg 40 mg, intra-articular, Once, On Thu03/25/24 at 1115, For 1 doseIndications:Trigger little finger of right hand Given 03/25/2024 10:39 AM MEDICAL TECHNICIAN ASSISTANT 40 mg documented in this encounter Orders Medications Ordered That Elmo ht Not Have Been Administered Count Last Ordered Date First Ordered Date methylPREDNISolone acetate ( DEPO-medrol) injection 40 mg 1 03/25/2024 documented in this encounter Care Teams Station Mechanic Apprentice Relationship Specialty Start Date End Date Sylvia Dawson PA [address] [facility] [address] [place] [address] PCP - General Internal Medicine 01/05/20 Erica Rodrigues MD [address] [facility] [address] [place] [address] Radiation Oncologist Radiation Oncology 10/25/18 Gasper Kaba MD [address] [facility] [address] [facility] [address] [place] [address] Surgeon Surgical Oncology 10/25/18 Brandy Aguirre, CARINA [address] [facility] [address] [facility] [address] [place] [address] Nurse Practitioner Certified Clinical Nurse Specialist 10/25/18 Jo-Ann Morrow, PhD [address] [facility] [address] [facility] [address] [place] [address] Nurse Practitioner Radiation Oncology 10/25/18 Christina Louis, LIFE INSURANCE UNDERWRITER [address] [facility] [address] [facility] [address] [place] [address] Nurse Practitioner Medical Oncology 10/25/18 Jessy Adame MD [address] [facility], [address] [place] [address] Consulting Physician Retina Ophthalmology 04/15/23 Harpal Carpio MD [address] [place] [id number] Neurologist Neurology 04/15/23 Rossana Church DNP [address] [address] Nurse Practitioner Nurse Practitioner 04/15/23 Zahida Kaplan PA [address] [facility] DIV NEUROLOGY [facility] [address] [place] [address] Physician Staple Processing Machine Operator Physician Staple Processing Machine Operator 04/15/23 Fadi Cook PA [address] DIV NEUROLOGY SLEEP MED, [facility] [address] [place] [address] Physician Staple Processing Machine Operator Sleep Medicine 04/15/23 Harpal De León MD [address] [facility] [address] [place] [address] Type Bar And Segment Assembler Cardiology 04/15/23 Valorie Young MD [address] [place] [address] Type Bar And Segment Assembler Cardiology 04/15/23 Patricia Martinez MD [address] [facility] DIV RHEUMATOLOGY, [address] [address] Consulting Physician Rheumatology 04/15/23 documented as of this encounter
--- OUTSIDE RECORDS SUMMARY | 2024-04-24 05:47 | XMS_ITS | Referral Summary ---
Author Organization [facility] Address [address] [place] [address] Care Team Providers Care Bolt Threader Name Role Phone Erica Rodrigues MD Unavailable Gasper Kaba MD Unavailable Brandy Aguirre DRUM BUILDER Unavailable Jo-Ann Morrow PhD Unavailable Christina Louis ARCHITECTURAL ADMINISTRATIVE ASSISTANT Unavailable [phone] Sylvia Dawson Primary Care Provider [phone] Jessy Adame MD Unavailable Harpal Carpio MD Unavailable Rossana Church DNP Unavailable Zahida Kaplan Unavailable Fadi Cook Unavailable Harpal De León MD Unavailable [phone] Valorie Young MD Unavailable [phone] Patricia Martinez MD Unavailable [phone] Encounters Date Type Department Care Team Description 04/05/2024 Orders Only [facility] Family Medicine [address] [place] [address] Swinigan, Sylvia R., PA Elevated MCV (Primary Dx) 04/04/2024 Telephone [facility] [address] [place] [address] Lizzie Green NP 04/04/2024 10:45 AM TEST ENG Office Visit [facility] [address] [place] [address] Lizzie Green, JENNI Cerebral aneurysm, nonruptured (Primary Dx); Carotid dissection, bilateral (CMS/HCC) (HCC) 04/04/2024 8:33 AM TEST ENG - 04/04/2024 11:59 PM TEST ENG Hospital Encounter [facility] - Imaging [address] [place] [id number] Cerebral aneurysm, nonruptured Discharge Disposition: Discharge to home or self care 03/30/2024 Telephone [facility] [address] 6th [address] [place] [address] Norman Alves, [facility] 03/30/2024 7:30 PM TEST ENG Procedure visit [facility] [address] [place] [address] JOSE (obstructive sleep apnea); S/P placement of hypoglossal nerve stimulator 03/28/2024 9:15 AM TEST ENG Office Visit [facility] Ophthalmology [address] [facility] [address] [facility] 6th [place] [address] Corinna Elmore MD PhD 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) 03/24/2024 4:00 PM TEST ENG Office Visit [facility] Rheumatology [address] [facility] 5th [place] [address] [place] [phone] Patricia Martinez MD Rheumatoid arthritis with negative rheumatoid factor, involving unspecified site (HCC) (Primary Dx); High risk medication use; Scleritis and episcleritis of left eye; Trigger little finger of right hand 03/23/2024 2:00 PM TEST ENG Office Visit [facility] Family Medicine [address] [place] [address] Syliva Dawson PA Annual physical exam (Primary Dx); Hypertension, essential; Fatigue, unspecified type; Hyperglycemia; Mixed hyperlipidemia; Breast cancer screening by mammogram; Need for influenza vaccination; BMI 26.0-26.9,adult 03/08/2024 Orders Only [facility] Neurosurgery [address] [facility] 6th [place] [address] [place] [phone] Sophia Durbin RN Cerebral aneurysm, nonruptured (Primary Dx) 03/08/2024 9:30 AM TEST ENG Office Visit [facility] General Neurology [address] 6th [address] [place] [address] Zahida Kaplan PA Migraine with aura and without status migrainosus, not intractable (Primary Dx) from Last 3 Months Allergies Active Allergy Reactions Criticality Noted Date Comments Adhesive Hives Medium Paper tape OK Cyclizine Other (See comments),Hallucinations Medium 09/04/2010 Marezine about 1981 Reaction: Urinary retention Medications multivitamin with minerals tabletIndicatio ns:Vitamin Deficiency Prevention Take 1 tablet by mouth every morning Active vit P-M-ygfvvi-zinc -lutein (PreserVision Lutein) 226-90-0.8-5 mg capsuleIndicati ons:Eye [...] Active butalbital-acet aminophen-caffe ine-codeine (FIORICET WITH CODEINE) 22-973-73-30 mg per capsuleIndicati ons:Nonintracta ble headache, unspecified [...] 04/03/2024 Assessment & Plan (04/03/2024 10:18 PM TEST ENG): Flu vaccine updated in the office today Breast cancer screening by mammogram 04/03/2024 Assessment & Plan (04/03/2024 10:18 PM TEST ENG): Mammogram order provided Trigger little finger of [...] the 2 brochures their published by the [employer] [employer] regarding understanding insomnia and also how to sleep better. I also recommended an exercise program. She will follow up here in 6 weeks to assess her progress. I did tell her it was okay to continue with melatonin but then I would discontinue the CBD. 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 Elmore, and I greatly [...] 04/12/2023 Assessment & Plan (04/12/2023 10:48 PM TEST ENG): Patient noted different sized pupils in January. Has been seeing Dr. Adame as well as neurologist Dr. Carpio and patient still states she is not sure why this is occurring. Encouraged her to follow back up with Ophthalmology her retinal specialist. She would like to see neuro advisory services associate for another opinion. Will place the referral to Dr. Al at [facility] Need for immunization against influenza 04/12/20 23 Assessment & Plan (04/12/2023 10:51 PM TEST ENG): Flu vaccine updated in the office today BMI 26.0-26.9,adult 04/01/2023 Assessment & Plan (03/23/2024 1:54 PM TEST ENG): Weight/BMI is in healthy range. Continue healthy lifestyle to maintain. Assessment & Plan (04/01/2023 3:05 PM TEST ENG): Weight/BMI is in healthy range. Continue healthy lifestyle to maintain. Amaurosis fugax of right eye 03/12/2023 Assessment & Plan (03/16/2023 3:53 PM TEST ENG): Notes episodes of superior vision loss, mainly OD, lasts for less than 10 min. History of R ant communicating aneurysm. Will communicate these symptoms with Dr. Moss. Addendum: Titus from ARCHITECTURAL ADMINISTRATIVE ASSISTANT Norma office - may be related to orthostatic hypotension, she will be speaking to cardiology. Obstructive sleep apnea 06/19/2022 Overview (04/08/2023): DIAGNOSIS: Obstructive sleep apnea PROCEDURE PERFORMED:(Bend 03/20/23) Right hypoglossal nerve stimulator implantation Generator [...] is pending at the sleep lab at [facility]. Assessment & Plan (04/12/2023 10:50 PM TEST ENG): DIAGNOSIS: Obstructive sleep apnea PROCEDURE PERFORMED:(Bend 03/20/23) Right hypoglossal nerve stimulator implantation Generator placement right chest wall Lead placement right intercostal muscle Patient continues to complain of nerve type pain in the area. She is requesting gabapentin. One hundred b.i.d. sent to pharmacy to trial. Reviewed risks benefits alternatives side effects and proper use Assessment & Plan (06/19/2022 12:05 PM TEST ENG): Due to the patient feeling like the [...] placed. Assessment & Plan (03/16/2023 4:49 PM TEST ENG): SP bilateral stenting in the setting of bilateral carotid artery dissection. Following with neurology. 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 Mom had bicuspid AV and aneurysm repair. Will message genetics, Dr. Young and Dr. Moss for consideration of work up for Els Danols, or other connective tissue disorder. ASA and statin. Assessment & Plan (05/04/2022 8:02 PM TEST ENG): Continue per [facility] Chronic tension-type headache, not intractable 0 05/04/2022 Assessment & Plan (05/04/2022 8:04 PM TEST ENG): Patient with chronic headaches prior to this surgery. These headaches have always responded to Fioricet. Encouraged to use Tylenol 1st line in breakthrough symptoms may use the Fioricet as needed. If patient's symptoms persist will consider referral to neuro for her headaches Aneurysm ([facility]) 04/09/2022 Overview (04/12/2023): erebral artery aneurysm - [...] acute Assessment & Plan (04/12/2023 10:48 PM TEST ENG): Continue per Neurology. Assessment & Plan (01/29/2023 [...] genetic testing and will discuss with our fructose loader whether a referral to Genetics or to them would be optimal Annual physical exam 02/28/2022 Assessment & Plan (04/03/2024 10:17 PM TEST ENG): Encouraged healthy lifestyle, good nutrition and exercise. Encouraged Calcium and Vitamin D and weight bearing exercise for bone health. Reviewed immunizations Reviewed age appropirate screenings. Assessment & Plan (04/12/2023 10:50 PM TEST ENG): Encouraged healthy lifestyle, good nutrition and exercise. Encouraged Calcium and Vitamin D and weight bearing exercise for bone health. Reviewed immunizations Reviewed age appropirate screenings. Assessment & Plan (03/01/2022 7:30 PM TEST ENG): Encouraged healthy lifestyle, good nutrition and exercise. Encouraged Calcium and Vitamin D and weight bearing exercise for bone health. Reviewed immunizations Reviewed age appropirate screenings. Recurrent cold sores 02/28/2022 Assessment & Plan (03/01/2022 7:30 PM TEST ENG): Continue Valtrex p.r.n. for cold sores Hyperglycemia 02/28/2022 Assessment & Plan (04/03/2024 10:17 PM TEST ENG): Pre-diabetes/hyperglycemia is a precursor to Dm. Stressed importance of working on diet (decrease your simple sugars and one carbohydrate with each meal) and increase you exercise to achieve weight loss and this will help prevent you from progressing to diabetes. Assessment & Plan (03/01/2022 7:30 PM TEST ENG): Pre-diabetes/hyperglycemia is a precursor to Dm. Stressed [...] 08/19/2021 Assessment & Plan (04/29/2023 4:02 PM TEST ENG): She is now off durezol completely. There is no cystoid macular edema (CME) today both eyes (OU). There are likely lamellar changes that have remained stable. Recommend observation. Assessment & Plan (03/12/2023 9:51 AM TEST ENG): She is currently on durezol qid right [...] proceed. Assessment & Plan (05/15/2022 10:23 AM TEST ENG): Currently off durezol completely since 05/04. OCT [...] eye. Assessment & Plan (03/27/2022 12:21 PM TEST ENG): Currently on durezol qid left eye (OS) [...] dosing. Assessment & Plan (03/12/2022 9:08 AM TEST ENG): She is happy with the lack of [...] PFAT Assessment & Plan (02/26/2022 8:53 AM TEST ENG): She is happy with the lack of [...] PFAT Assessment & Plan (02/19/2022 9:05 AM TEST ENG): One week status post vitrectomy, capsulectomy to [...] activity. Assessment & Plan (02/17/2022 11:11 AM TEST ENG): Less than 1 week following vitrectomy for [...] She would like to transfer care to [facility] as her other doctors are also in [...] and ball the foot. Will refer to founder for further evaluation. Advise could try making a donut out of mole skin to create protection while waiting to take the pressure off of that area. Breast mass 04/02/2021 Moderate episode of recurrent major depressive d isorder 02/27/2021 Assessment & Plan (04/12/2023 10:48 PM TEST ENG): Stable. Patient would like to try to [...] mg Assessment & Plan (02/27/2021 11:34 PM TEST ENG): Continue Prozac 20 mg Fatigue 08/22/2020 Assessment & Plan (04/03/2024 10:17 PM TEST ENG): Probably multifactorial. Check labs and followup to re-evaluate Assessment & Plan (03/01/2022 7:28 PM TEST ENG): Probably multifactorial. Check labs and followup to [...] 06/11/2020 Assessment & Plan (06/11/2020 11:25 AM TEST ENG): Patient directed to er for further evaluation and treatment. to drive. Cough 06/11/2020 Assessment & Plan (06/11/2020 11:25 AM TEST ENG): Patient directed to er for further evaluation and treatment. to drive. Hypertension, essential 06/04/2020 Assessment & Plan (04/03/2024 10:17 PM TEST ENG): Bp is stable/in acceptable range for any co-morbidities. Encouraged to limit sodium intake and exercise for weight control. Continue lisinopril 40 and atenolol 25 hydrochlorothiazide 12.5 Assessment & Plan (03/16/2023 4:47 PM TEST ENG): Controlled, no additional recs. Lisinopril 40 mg daily, atenolol 25 mg daily and HCTZ 12.5 mg PRN. She takes this approximately once a week from her notes. Dr. Young in 6 months. Assessment & Plan (03/01/2022 7:28 PM TEST ENG): Bp is stable/in acceptable range for any [...] atenolol Assessment & Plan (02/27/2021 11:34 PM TEST ENG): Bp is stable/in acceptable range for any [...] appointment Assessment & Plan (06/04/2020 9:39 PM TEST ENG): Bp is in low range for any [...] pneumonia Assessment & Plan (06/04/2020 9:40 PM TEST ENG): 05/07/2020 - positive. Hospitalized 05/18 - 05/23 for pneumonia Atrial tachycardia 03/13/2020 Assessment & Plan (06/04/2020 9:38 PM TEST ENG): bp has been low since hospitalization. Holding the lisinopril and still low. Will decrease the atenolol to 25mg daily and monitor closely as uses for tachy. Mixed hyperlipidemia 01/06/2020 Assessment & Plan (04/03/2024 10:17 PM TEST ENG): Encouraged patient to follow low fat/low chol diet like the Mediterranean diet. Increase good fats in the diet. Increase exercise. Monitor labs as needed. Continue Zetia Assessment & Plan (04/12/2023 10:50 PM TEST ENG): Encouraged patient to follow low fat/low chol diet like the Mediterranean diet. Increase good fats in the diet. Increase exercise. Monitor labs as needed. Continue Zetia Assessment & Plan (03/16/2023 4:48 PM TEST ENG): LDL 91 in February 2023. Zetia 10 mg daily. Assessment & Plan (05/04/2022 10:24 AM TEST ENG): Encouraged patient to follow low fat/low chol [...] discuss further. Prefers Dr. Varghese at [facility] Will make referral. Assessment & Plan (03/01/2022 7:27 PM TEST ENG): Insert hyperlipidemia patient is still not interested [...] treatment Assessment & Plan (02/27/2021 11:33 PM TEST ENG): Encouraged patient to follow fat/low chol diet [...] needed. Assessment & Plan (02/26/2020 4:03 PM TEST ENG): Encouraged patient to follow fat/low chol diet [...] (11/08/2018): Added automatically from request for surgery [id number] Diplopia 03/16/2018 Assessment & Plan (03/16/2018 12:45 PM TEST ENG): This may be related to ocular migraine [...] 07/24/2015 Assessment & Plan (04/12/2023 10:48 PM TEST ENG): Continue per Rheumatology. She is currently on [...] symptoms. Assessment & Plan (03/01/2022 7:27 PM TEST ENG): Continue per Rheumatology. Continue with Plaquenil methotrexate and sulfasalazine Assessment & Plan (08/26/2021 10:12 AM CDT): Continue per rheumatoid Assessment & Plan (02/27/2021 11:32 PM TEST ENG): Continue per Rheumatology Assessment & Plan (09/20/2020 [...] response. Assessment & Plan (06/04/2020 9:39 PM TEST ENG): Continue per Rheum. Monitor sxs. May flair due to medication holiday Assessment & Plan (03/21/2020 9:36 AM TEST ENG): Today she presents with low disease activity [...] steroids. Assessment & Plan (02/28/2019 10:47 AM TEST ENG): She is clinically she is doing very [...] today. Assessment & Plan (03/16/2018 12:44 PM TEST ENG): Clinically she has low disease activity today. [...] 01/25/2015 Assessment & Plan (04/12/2023 10:50 PM TEST ENG): Patient consulted with Dr. Carpio neurologist in [place] for her headaches. He is offered multiple [...] 08/20/2011 Assessment & Plan (03/01/2022 7:26 PM TEST ENG): Patient experiences migraines. Seems to trigger with weather changes. Requests a refill of the Fioricet with codeine as it seems to help. Will send short supply to pharmacy. Disorder of binocular movement 06/10/2011 Visual discomfort 06/10/2011 Cerebral arterial aneurysm 10/24/2010 Assessment & Plan (03/01/2022 7:26 PM TEST ENG): Continue monitor by MRA. Per patient there has been some change Following with Dr. Moss Await recommendation Bronchiolitis Resolved Problems Problem Noted Date Diagnosed Date Resolved Date BMI 24.0-24.9, adult 04/22/2022 023 Assessment & Plan (04/22/2022 1:06 PM TEST ENG): Weight/BMI is in healthy range. Continue healthy lifestyle to maintain. Snoring 03/20/2022 06/19/2022 Assessment & Plan (03/20/2022 12:01 PM TEST ENG): I have ordered in-home nocturnal polysomnogram per the patient's insurance. The patient would like to hold off on an in-lab PSG with MSLT at this time. Flu vaccine need 02/28/2022 04/12/2023 Assessment & Plan (03/01/2022 7:28 PM TEST ENG): Flu vaccine updated in the office today Need for Tdap vaccination 02/28/2022 Assessment & Plan (03/01/2022 7:28 PM TEST ENG): Tdap updated in the office today Stress 02/28/2022 03/01/2022 Daytime sleepiness 02/28/2022 Assessment & Plan (03/01/2022 7:30 PM TEST ENG): This is a significant, separately identifiable problem [...] 023 Assessment & Plan (03/01/2022 7:28 PM TEST ENG): Weight/BMI is in healthy range. Continue healthy lifestyle to maintain. Assessment & Plan (08/26/2021 9:18 AM CDT): Weight/BMI is in healthy range. Continue healthy lifestyle to maintain. Need for Tdap vaccination 08/26/2021 BMI 24.0-24.9, adult 06/14/2021 Assessment & Plan (06/14/2021 8:18 AM TEST ENG): Weight/BMI is in healthy range. Continue healthy lifestyle to maintain. Annual physical exam 02/27/2021 Assessment & Plan (02/27/2021 11:34 PM TEST ENG): Encouraged healthy lifestyle, good nutrition and exercise. Encouraged Calcium and Vitamin D and weight bearing exercise for bone health. Reviewed immunizations Reviewed age appropirate screenings. Need for influenza vaccination 02/27/2021 07/05/2021 Assessment & Plan (02/27/2021 11:34 PM TEST ENG): Flu vaccine updated in office today. BMI 25.0-25.9,adult 02/26/2021 06/15/19 Assessment & Plan (02/26/2021 9:42 AM TEST ENG): Weight/BMI is in healthy range. Continue healthy lifestyle to maintain. BMI 24.0-24.9, adult 08/22/2020 Assessment & Plan (08/22/2020 11:02 AM CDT): Weight/BMI is in healthy range. Continue healthy lifestyle to maintain. BMI 23.0-23.9, adult 06/04/2020 021 Assessment & Plan (06/04/2020 9:39 PM TEST ENG): Weight/BMI is in healthy range. Continue healthy lifestyle to maintain. Pneumonia due to COVID-19 virus 06/04/2020 08/26/2021 Assessment & Plan (06/11/2020 11:24 AM TEST ENG): Patient directed to er for further evaluation and treatment. to drive. Assessment & Plan (06/04/2020 9:37 PM TEST ENG): Recovering. Recommend rechecking Chest Xray in 1-2 week for resolution. She is to followup immediately for increased sxs. Pneumonia due to infectious organism 05/30/2020 06/04/2020 Fever 05/12/2020 03/01/2022 Assessment & Plan (06/11/2020 11:24 AM TEST ENG): Patient directed to er for further evaluation and treatment. to drive. Assessment & Plan (05/12/2020 9:37 PM TEST ENG): Patient to presume positive COVID until results are available and self isolate for 10 days from the onset of sxs. Check COVID test thru [facility] collection site in [place]. Treat sxs with Tylenol, Cough/cold medication otc [...] water often. If needed, use a hand decorating and assembly supervisor that contains at least 60% alcohol. ?? Clean and disinfect frequently touched surfaces such as tables, doorknobs, countertops, etc daily. ?? Avoid touching your eyes, nose, and mouth when possible. Need for shingles vaccine 02/26/2020 Assessment & Plan (02/26/2020 4:02 PM TEST ENG): Shingrix #1 given in office today Stress 02/26/2020 08/26/2021 Assessment & Plan (02/27/2021 11:34 PM TEST ENG): Stable with Prozac 20 mg Assessment & Plan (02/26/2020 4:05 PM TEST ENG): Paxil was increased to 30mg and doing well. Continue to monitor. Annual physical exam 01/06/2020 021 Assessment & Plan (02/26/2020 4:00 PM TEST ENG): Encouraged healthy lifestyle, good nutrition and exercise. [...] 01/06/202008/26 Assessment & Plan (02/26/2020 4:01 PM TEST ENG): Scheduled to update Assessment & Plan (01/06/2020 [...] 21 Assessment & Plan (02/26/2020 4:00 PM TEST ENG): Weight/BMI is in healthy range. Continue healthy lifestyle to maintain. Assessment & Plan (01/05/2020 10:37 AM CDT): Continue healthy lifestyle to continue healthy weight Encounter to establish care 02/24/2018 01/06/2020 Estrogen receptor positive status (ER+) 11/29/2014 07/08/2018 Immunizations Name Administration Dates Next Due Influenza, Quadrivalent, Marie l Culture-based MDCK, Preservative Free, Antibiotic Free, Intramuscular 03/16/2018 Influenza, Quadrivalent, Spl it, Preservative Free, Intramuscular 04/01/2023,02/27/2022,02/26/2021,01/04 Influenza, Trivalent, IM (MDV) 01/27/2018 Influenza, Trivalent, Preser vative Free, Intramuscular 03/23/2024,02/24/2017 Influenza, Unspecified 01/11/2019 Tdap 02/27/2022 ZOSTER Recombinant 05/01/2020,02/23/2020 Social History Tobacco Use Types Packs/Day Years [...] on file Legal Sex Female 3:42 AM TEST ENG Gender Identity Not on file Sexual Orientation Not on file 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 Not on file Not on file Not on file Last Filed Vital Signs Vital Sign Reading Time Taken Comments Blood Pressure 145/87 03/30/2024 7:48 PM TEST ENG Pulse 63 03/30/2024 7:48 PM TEST ENG Temperature 36.6 ??C (97.9 ??F) 03/30/2024 7:48 PM CS T Respiratory Rate 14 04/04/2024 10:10 AM TEST ENG Oxygen Saturation 97% 03/30/2024 7:48 PM TEST ENG Inhaled Oxygen Concentration - - Weight 70 kg (154 lb 6.4 oz) 04/04/2024 10:10 AM TEST ENG Height 160 cm (5' 3 ) 04/04/2024 10:10 AM TEST ENG Body Mass Index 27.35 04/04/2024 10:10 AM TEST ENG Plan of Treatment Not on file Medical Devices Implanted Type Area Compensation Advisor Device Identifier Shelf Expiration Date Model / Serial / Lot [employer] Inspire 3 Electrode Cuff Tunnel Owen Lead Neurostimulator Sterile 4063 - [id number] - [id number] Implanted:Qty: 1 on 03/20/2023 by Albin Pereyra MD at [facility] Other - see comments Right: Chest [employer] 10/05/2025 4063 / [id number] / Surpass Streamline Flow Diverter Implanted:Qty: 1 on 04/09/2022 at [facility] Stent Right: Carotid Teo Neurovascular [id number] 07/29/2024 / / [id number] Lvis Intrluminal Support Device Implanted:Qty: 1 on 04/09/2022 at [facility] Stent Left: Carotid [employer] 01/11/2024 / / [id number] Angio-Seal Vip Vascular Closure Device Implanted:Qty: 1 on 04/09/2022 at [facility] Vascular Closure Device Right: Femoral Terum[employer] 12/11/2022 / / [id number] [employer] Web Sl 5mm 3mm Device Embolization W5-5-3 - [id number] Implanted:Qty: 1 on 06/16/2022 at [facility] [employer] 08/10/2024 W5-5-3 / / [id number] Description:Brain zeeWAVES Angio-Seal Vip 6fr Closere Device [id number] - [id number] Implanted:Qty: 1 on 06/16/2022 at [facility] Terumo [employer] Kathleen 02/10/2023 [id number] / / [id number] Vasorum Ltd Device 5fr Closure Celt Acd Vascular Sterile Latex Free Disposable Juan Kclt-05 - [id number] Implanted:Qty: 1 on 01/28/2023 at [facility] [employer] 11/25/2025 KCLT-05 / / [id number] [employer] Lead Neurostimulator Sleep Apnea Thoracic Permanent Respiratory Sensing Inspire 43cm 4340 - [id number] - [id number] Implanted:Qty: 1 on 03/20/2023 by Albin Pereyra MD at [facility] Right: Chest [employer] 01/10/2026 4340 / [id number] / [employer] Inspire Generator 3028 - [id number] - [id number] Implanted:Qty: 1 on 03/20/2023 by Albin Pereyra MD at [facility] Right: Chest [employer] 12/08/2025 3028 / [id number] / Procedures Procedure Name Priority Date/Time Associated Diagnosis Comments ERYTHROCYTE SEDIMENTATION RATE Routine 04/04/2024 11:50 AM TEST ENG Rheumatoid arthritis with negative rheumatoid factor, involving unspecified site (HCC) High risk medication use CRP (ACUTE PHASE) Routine 04/04/2024 11:50 AM TEST ENG Rheumatoid arthritis with negative rheumatoid factor, involving unspecified site (HCC) High risk medication use COMPREHENSIVE METABOLIC PANEL Routine 04/04/2024 11:50 AM TEST ENG Rheumatoid arthritis with negative rheumatoid factor, involving unspecified site (HCC) High risk medication use CBC WITH AUTO DIFFERENTIAL Routine 04/04/2024 11:50 AM TEST ENG Rheumatoid arthritis with negative rheumatoid factor, involving unspecified site (HCC) High risk medication use LIPID PANEL Routine 04/04/2024 11:49 AM TEST ENG Mixed hyperlipidemia CBC WITH AUTO DIFFERENTIAL Routine 04/04/2024 11:49 AM TEST ENG Fatigue, unspecified type COMPREHENSIVE METABOLIC PANEL Routine 04/04/2024 11:49 AM TEST ENG Hypertension, essential HEMOGLOBIN A1C Routine 04/04/2024 11:49 AM TEST ENG Hyperglycemia VITAMIN B12 Routine 04/04/2024 11:49 AM TEST ENG Fatigue, unspecified type TSH Routine 04/04/2024 11:49 AM TEST ENG Fatigue, unspecified type CTA HEAD NECK W WO CONTRAST Schedule Routine, Read Routine (OP Routine) 04/04/2024 9:30 AM TEST ENG Cerebral aneurysm, nonruptured PSG (COMPLEX) Routine 03/30/2024 10:00 PM TEST ENG JOSE (obstructive sleep apnea) S/P placement of hypoglossal nerve stimulator PAP AND HIGH RISK HPV, REFLEX TO GENOTYPING Routine 06/16/2023 11:06 AM TEST ENG Well woman exam SCREENING MAMMOGRAM BILATERAL W MARCELO Schedule Routine, Read Routine (OP Routine) 06/08/2023 1:56 PM TEST ENG Screening mammogram, encounter for COLONOSCOPY Routine 03/06/2020 HEPATITIS C ANTIBODY Routine Gen Lab 11/06/2016 6:04 PM CDT from Last 3 Months or Most Recently Relevant to Health Maintenance Results * (ABNORMAL) CBC with auto differential (04/04/2024 11:50 AM TEST ENG) WBC 4.7 3.4 - 10.8 x10E3/uL [facility] [...] - 01 Blood 04/04/2024 11:5 0 AM TEST ENG 04/04/2024 Narrative [facility] - 04/05/2024 7:08 AM TEST ENG Performed at: ??01 - [facility] ??[id number] Label Printer: John Lozoya PhD, Phone: ??[phone] Patricia Martinez MD LAB BLOOD ORDERABLES Final R esult Performing Organization Address [facility] de Phone Number [facility] - * Erythrocyte sedimentation rate (04/04/2024 11:50 AM TEST ENG) Erythrocyte sedimentation rate 2 0 - 40 mm/hr [facility] - 01 Blood 04/04/2024 11:5 0 AM TEST ENG 04/04/2024 Narrative [facility] - 04/05/2024 7:08 AM TEST ENG Performed at: ?? - [facility] ??[id number] Label Printer: John Lozoya PhD, Phone: ??[phone] Patricia Martinez MD LAB BLOOD ORDERABLES Final R esult Performing Organization Address [facility] de Phone Number [facility] - * CRP (acute phase) (04/04/2024 11:50 AM TEST ENG) CRP 2 0 - 10 mg/L [facility] - 01 Blood 04/04/2024 11:5 0 AM TEST ENG 04/04/2024 Narrative [facility] - 04/05/2024 12:08 PM TEST ENG Performed at: ?? [facility] ??[id number] Label Printer: John Lozoya PhD, Phone: ??[phone] Patricia Martinez MD LAB BLOOD ORDERABLES Final R esult Performing Organization Address [facility] Co de Phone Number [facility] - * (ABNORMAL) Comprehensive metabolic panel (04/04/2024 11:50 AM TEST ENG) Glucose 91 70 - 99 mg/dL [facility] [...] - 01 Blood 04/04/2024 11:5 0 AM TEST ENG 04/04/2024 Narrative [facility] - 04/05/2024 7:08 AM TEST ENG Performed at: ??01 - [facility] [address] ??[id number] Label Printer: John Lozoya PhD, Phone: ??[phone] us Patricia Martinez MD LAB BLOOD ORDERABLES Final R esult [facility] - * (ABNORMAL) CBC with auto differential (04/04/2024 11:49 AM TEST ENG) WBC 4.7 3.4 - 10.8 x10E3/uL [facility] [...] - 01 Blood 04/04/2024 11:4 9 AM TEST ENG 04/04/2024 Narrative [facility] - 04/05/2024 7:36 AM TEST ENG Performed at: ??01 - [facility] [address], [place], [place] ??[id number] Label Printer: John Lozoya PhD, Phone: ??[phone] Sylvia JONES LAB BLOOD ORDERABLES Final Result Performing Organization Address [facility] Co de Phone Number [facility] - 01 * TSH (04/04/2024 11:49 AM TEST ENG) [facility] TSH 1.390 0.450 - 4.500 uIU/mL [facility] - 01 Blood 04/04/2024 11:4 9 AM TEST ENG 04/04/2024 Narrative [facility] - 04/05/2024 9:36 AM TEST ENG Performed at: ?? - [facility] [address] ??[id number] Label Printer: John Lozoya PhD, Phone: ??[phone] Result [facility] Sylvia JONES LAB BLOOD ORDERABLES Final Result Performing Organization Address [facility] de Phone Number [facility] - 01 * Hemoglobin A1c (04/04/2024 11:49 AM TEST ENG) [facility] Hgb A1C 5.2 4.8 - 5.6 % [facility] - 01 Comment: ? Prediabetes: 5.7 - 6.4 ? Diabetes: >6.4 ? Glycemic control for adults with diabetes: <7.0 Blood 04/04/2024 11:4 9 AM TEST ENG 04/04/2024 Narrative [facility] - 04/05/2024 7:36 AM TEST ENG Performed at: ?? - [facility] [address] ??[id number] Label Printer: John Lozoya PhD, Phone: ??[phone] Sylvia JONES LAB BLOOD ORDERABLES Final Result Performing Organization Address [facility] Co de Phone Number [facility] - 01 * Vitamin B12 (04/04/2024 11:49 AM TEST ENG) [facility] Vitamin B12 559 232 - 1,245 pg/mL [facility] - 01 Blood 04/04/2024 11:4 9 AM TEST ENG 04/04/2024 Narrative [facility] - 04/05/2024 9:36 AM TEST ENG Performed at: ??01 - [facility] [address] ??[id number] Label Printer: John Lozoya PhD, Phone: ??[phone] Sylvia JONES LAB BLOOD ORDERABLES Final Result [facility] - * (ABNORMAL) Lipid panel (04/04/2024 11:49 AM TEST ENG) Cholesterol 226(H) 100 - 199 mg/dL [facility] - 01 Triglycerides 98 0 - 149 mg/dL [facility] - 01 HDL Cholesterol 79 >39 mg/dL [facility] - 01 VLDL 17 5 - 40 mg/dL [facility] - 01 LDL, calculated 130(H) 0 - 99 mg/dL [facility] - 01 Blood 04/04/2024 11:4 9 AM TEST ENG 04/04/2024 Narrative [facility] - 04/05/2024 7:36 AM TEST ENG Performed at: ??01 - [facility] [address] ??[id number] Label Printer: John Lozoya PhD, Phone: ??[phone] Sylvia JONES LAB BLOOD ORDERABLES Final Result [facility] - * (ABNORMAL) Comprehensive metabolic panel (04/04/2024 11:49 AM TEST ENG) Glucose 92 70 - 99 mg/dL [facility] [...] - 01 Blood 04/04/2024 11:4 9 AM TEST ENG 04/04/2024 Narrative [facility] - 04/05/2024 7:36 AM TEST ENG Performed at: ??01 - [facility] [address] ??[id number] Label Printer: John Lozoya PhD, Phone: ??[phone] us Sylvia JONES LAB BLOOD ORDERABLES Final Result [facility] - * CTA Head Neck W WO Contrast (04/04/2024 9:30 AM TEST ENG) Anatomical Region Laterality Modality Head and Neck N/A Computed Tomogra phy 04/04/2024 11:3 0 AM TEST ENG Impressions 04/04/2024 12:35 PM TEST ENG 1. 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 ??Filling of the device neck is again noted. 2. Bilateral cervical internal carotid artery stents appear patent. Dictated by: Adonis Bhatti D.O. The radiology attending physician has personally reviewed this study, and had reviewed and/or edited this written report and agrees with it. Electronically signed by: Kaye Jc M.D. Narrative 04/04/2024 12:35 PM TEST ENG EXAMINATION: 1. Computed tomography angiography (CTA) of [...] it. Electronically signed by: Kaye Jc M.D. us Lizzie Green ARCHITECTURAL ADMINISTRATIVE ASSISTANT IMG CT PROCEDURES Final Re sult * PSG (COMPLEX) (03/30/2024 10:00 PM TEST ENG) Narrative Xavier Bird MD - 03/30/2024 10:00 PM TEST ENG Xavier Bird MD ? 03/31/2024 ??2:34 PM PSG-Sleep Provider Use Only Date/Time: 03/30/2024 10:00 PM Performed by: Xavier Bird MD Authorized by: Fadi Cook PA ?? us Fadi JONES [facility] ORDERABLES Fin al Result * Pap and High Risk HPV and Genotyping (Cytology Component) (06/16/2023 11:06 AM TEST ENG) Thin prep (Pap test) 06/16/2023 11:06 AM TEST ENG 06/17/2023 10:27 AM TEST ENG Narrative PATHOLOGY [facility] - 06/22/2023 10:16 AM CDT EPIC results best viewed via link to PDF [facility] Yesy Lord Laboratory of Surgical Pathology [place] [address] Note to Patients: This report may contain [...] Gender: ??F : ??1960 (Age: 62) Address: ??[address] [place] [address] ??[id number] Hospital #: ??[id number] Service: ??DEFAULT Location: ?? Patient Type: ??[facility] SPECIMEN Taken: ??06/16/2023 Received: ??06/17/2023 Accessioned: ??06/17/2023 [...] this test have been verified by the [facility] Molecular Infectious Disease laboratory. Correlate with reported cytology results, as applicable. Interpretive data last revised 22 osie/06/22/2023 10:16 JESSIKA Batista(ASCP) Report Electronically Reviewed and Signed Out By JESSIKA Batista([facility]) 06/22/2023 10:16:29 Cervicovaginal Cytology (Pap Test) Disclaimer: The Pap test is a screening test used to detect cervical cancer and its precursors; it is not a diagnostic procedure. False negative and false positive results do occur. Pap test results should be interpreted in the context of pertinent clinical information and biopsy results as indicated. [facility] Clinical Laboratory Improvement Amendments (CLIA) mandate that cytologic and histologic results be correlated for laboratory software quality assurance specialist & improvement standards. ??FOR ALL HIGH-GRADE CASES [...] determined by the Surgical Pathology Department at [facility] as part of an ongoing quality measurement [...] determined by the Surgical Pathology Department of [facility]. ??It has not been cleared or approved by the U. S. Food and Drug Administration. Ema Keyes MD LAB CYTOLOGY ORDERABLES F inal Result PATHOLOGY [facility] * Screening Mammogram Bilateral W Marcelo (06/08/2023 1:56 PM TEST ENG) Anatomical Region Laterality Modality Breast Bilateral Mammography Impressions 06/08/2023 2:35 PM TEST ENG BI-RADS?? ATLAS category (overall): 2 - Benign There is no mammographic evidence of malignancy. A 1 year screening mammogram is recommended. The patient has been or will be contacted. We recommend annual screening mammography for women at average risk of breast cancer beginning at age 40, based on guidelines of the [employer] (ACR Practice Parameter for the Performance of Screening and Diagnostic Mammography) and [employer]. For women with and elevated risk of breast cancer, please refer to the ACR Practice Parameter for specific screening recommendations. The patient will be entered into a reminder system with a target due date of 1 year for her next screening exam. Narrative 06/08/2023 2:35 PM TEST ENG Screening Mammogram Bilateral W Marcelo: 06/08/23 The [...] CDT) Hep C Ab Nonreactive Nonreactive [facility] Comment: Interpretive Data Positive and greyzone results should be confirmed by a molecular method. If positive or greyzone, a second separately collected sample should be submitted for Hepatitis C Virus RNA. Detection and Quantitation by Real-Time Reverse Assembler Ping Pong Table-PCR.Current Interpretive data was last revised on 2016. Blood specimen (specimen) 11/06/2016 6:04 PM CDT 11/06/2016 6:14 PM CDT Patricia Martinez MD LAB MICROBIOLOGY - GENERAL O RDERABLES Edited Result - Final [facility] Department [place] [address] from Last 3 Months or Most Recently Relevant to Health Maintenance Insurance BL CHO[place] OOS [employer] Address: [address] [place] [address] ANTHEM ACCESS CHOICE [employer] Address: [address] [place] [address] [place] Advance Directives For more information, please contact: [phone] Documents on File Type Date Recorded Patient Terrazzo Polisher Helper Expl anation Power of Political Science Professor 06/16/2022 8:01 AM Power of Political Science Professor 06/16/2022 8:00 AM * Full Code (Latest [...] 12:27 PM 03/12/2022 12:28 PM Care Teams Bolt Threader Relationship Specialty Start Date End Date Sylvia Dawson PA [address] [place] [address] PCP - General Internal Medicine 01/05/20 Erica Rodrigues MD [address] [facility] [address] [place] [address] Radiation Oncologist Radiation Oncology 10/25/18 Gasper Kaba MD [address] [facility] [address] [place] [address] Surgeon Surgical Oncology 10/25/18 Brandy Aguirre, DRUM BUILDER [address] [facility] [address] [address] [facility] [address] [place] [address] Nurse Practitioner Certified Clinical Nurse Specialist 10/25/18 Jo-Ann Morrow, PhD [address] [facility] [facility] [address] [place] [address] Nurse Practitioner Radiation Oncology 10/25/18 Christina Louis, ARCHITECTURAL ADMINISTRATIVE ASSISTANT [address] [facility] [facility] [address] [place] [address] Nurse Practitioner Medical Oncology 10/25/18 Jessy Adame MD [address] [facility], [address] [place] [address] Consulting Physician Retina Ophthalmology 04/15/23 Harpal Carpio MD [address] [place] [address] Neurologist Neurology 04/15/23 Rossana Church DNP [address] [place] [address] Nurse Practitioner Nurse Practitioner 04/15/23 Zahida Kaplan PA [address] NEUROLOGY [facility], [facility] [address] [place] [address] Physician Specialty Food Products Supervisor Physician Specialty Food Products Supervisor 04/15/23 Fadi Cook PA [address] [facility]OLOGY SLEEP MED, [facility] [address] [place] [address] Physician Specialty Food Products Supervisor Sleep Medicine 04/15/23 Harpal De León MD [address] [facility] [address] [place] [address] Nurse First Assist Cardiology 04/15/23 Valorie Young MD [address] [facility] [address] [place] [address] Nurse First Assist Cardiology 04/15/23 Patricia Martinez MD [address] [facility] DIV IM RHEUMATOLOGY, [address] [address] Consulting Physician Rheumatology 04/15/23
--- OUTSIDE RECORDS SUMMARY | 2024-04-24 05:47 | XMS_ITS | Encounter Summary ---
Author Organization [facility] Address [address] [place] [address] Phone Care Team Providers Care Cheese Cutter Name Role Phone Erica Rodrigues MD Unavailable Gasper Kaba MD Unavailable Brandy Aguirre MANAGER MOLECULAR Unavailable Jo-Ann Morrow PhD Unavailable Christina Louis RESOURCE DEVELOPMENT DIRECTOR Unavailable [phone] Sylvia Dawson Primary Care Provider [phone] Jessy Adame MD Unavailable Harpal Carpio MD Unavailable Rossana Church DNP Unavailable Zahida Kalpan Unavailable Fadi Cook Unavailable Harpal De León MD Unavailable Valorie Young MD Unavailable Patricia Martinez MD Unavailable [phone] Encounter Details Date Type Department Care Team (Late st Contact Info) Description 11/18/2023 Telephone [facility] Neuro Sleep [address] [place] [address] 6th [address] [place] [address] Amy Wolf RPSGT Social History Tobacco Use Types Packs/Day [...] on file Legal Sex Female 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 Patient received a denial letter in the mail. Patient would like to get her study done as soon as possible. Pleasecall with any updates to the status of this. Amy Beltre documented in this encounter Plan of Treatment Not on file documented as of this encounter Visit Diagnoses Not on filedocumented in this encounter Care Teams Cheese Cutter Relationship Specialty Start Date End Date Sylvia Dawson PA [address] [facility] [address] [place] [address] PCP - General Internal Medicine 01/05/20 Erica Rodrigues MD [address] [facility] [address] [facility] [address] [place] [address] Radiation Oncologist Radiation Oncology 10/25/18 Gasper Kaba MD [address] [facility] [address] [facility] [address] [place] [address] Surgeon Surgical Oncology 10/25/18 Brandy Aguirre, CARINA [address] [facility] [address] [facility] [address] [place] [address] Nurse Practitioner Certified Clinical Nurse Specialist 10/25/18 Jo-Ann Morrow, PhD [address] [facility] [address] [facility] [address] [place] [address] Nurse Practitioner Radiation Oncology 10/25/18 Christina Louis RESOURCE DEVELOPMENT DIRECTOR [address] [facility] [address] [facility] [address] [place] [address] Nurse Practitioner Medical Oncology 10/25/18 Jessy Adame MD [address] [facility] OPHTHALMOLOGY, [address] [place] [address] Consulting Physician Retina Ophthalmology 04/15/23 Harpal Carpio MD [address] [place] [address] Neurologist Neurology 04/15/23 Rossana Church DNP [address] [place] [address] Nurse Practitioner Nurse Practitioner 04/15/23 Zahida Kaplan PA [address] [facility] [address] DIV NEUROLOGY [facility], [facility] [address] [place] [address] Physician Supply Chain Planner Physician Supply Chain Planner 04/15/23 Fadi Cook PA [address] DIV NEUROLOGY SLEEP [facility], [facility] [address] [place] [address] Physician Supply Chain Planner Sleep Medicine 04/15/23 Harpal De León MD [address] [facility] [address] [place] [id number] Foot Drill Operator Cardiology 04/15/23 Valorie Young MD [address] [facility] [address] [place] [address] Foot Drill Operator Cardiology 04/15/23 Patricia Martinez MD [address] [facility] DIV IM RHEUMATOLOGY, [address] [address] Consulting Physician Rheumatology 04/15/23 documented as of this encounter
--- OUTSIDE RECORDS SUMMARY | 2024-04-24 05:48 | XMS_ITS | Encounter Summary ---
Author Organization [facility] Address [address] [place] [address] Phone Care Team Providers Care Public Health Engineer Name Role Phone Erica Rodrigues MD Unavailable Gasper Kaba MD Unavailable Brandy Aguirre DRAPERY HEAD FORMER Unavailable Jo-Ann Morrow PhD Unavailable [phone] Christina Louis TRAIN CLERK Unavailable [phone] Sylvia Dawson Primary Care Provider [phone] Jessy Adame MD Unavailable Harpal Carpio MD Unavailable [phone] Rossana Church DNP Unavailable Zahida Kaplan Unavailable Fadi Cook Unavailable Harpal De León MD Unavailable [phone] Valorie Young MD Unavailable Patricia Martinez MD Unavailable Encounter Details Date Type Department Care Team (Late st Contact Info) Description 04/30/2023 8:30 AM SHEETER MACHINE OPERATOR Office Visit [facility] Sleep [address] [facility] [address] 6th [address] [place] [address] Fadi Cook, PA [address] [place] [address] Obstructive sleep apnea (Primary Dx); Intolerance of continuous positive airway pressure (CPAP) ventilation; S/P placement of hypoglossal nerve stimulator Social [...] on file Legal Sex Female 3:42 AM SHEETER MACHINE OPERATOR Gender Identity Not on file Sexual Orientation Not on file 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 file Not on file Not on file documented as of this encounter Last Filed Vital Signs Vital Sign Reading Time Taken Comments Blood Pressure 140/84 04/30/2023 8:10 AM SHEETER MACHINE OPERATOR Pulse 70 04/30/2023 8:10 AM SHEETER MACHINE OPERATOR Temperature 36.4 ??C (97.6 ??F) 04/30/2023 8:10 AM CS T Respiratory Rate - - Oxygen Saturation 96% 04/30/2023 8:10 AM SHEETER MACHINE OPERATOR Inhaled Oxygen Concentration - - Weight 66.5 kg (146 lb 8 oz) 04/30/2023 8:10 AM SHEETER MACHINE OPERATOR Height 167.6 cm (5' 6 ) 04/30/2023 8:10 AM SHEETER MACHINE OPERATOR Body Mass Index 23.65 04/30/2023 8:10 AM SHEETER MACHINE OPERATOR documented in this encounter Ordered Prescriptions Prescription Sig Dispense Quantity Refills Last Filled Start Date End Date traZODone (DESYREL) 50 mg tablet Take 1 tablet (50 mg total) by mouth nightly as needed for sleep 30 tablet 5 04/30/2023 4 documented in this encounter Progress Notes * Fadi Cook, KAREN - 04/30/2023 8:30 AM CST CC: here for Inspire activatioin HPI: Yesika Denney is a 62 y.o. female with a history of HLD, HTN, breast cancer, depression who presents to the [facility] [place] for sleep follow up and Inspire activation. The patient had her initial PSG at OSH in 04/2022 in which she had an AHI greater than 40. She was started onPAP therapy but could not tolerate it. She subsequently had a mandibular advancement device made and did repeat sleep study with this in place on 12/16/22 which revealed an JEAN-PAUL of 25.4 events per hour.Given the poor outcome, the patient pursued Inspire therapy and ultimately was implanted on 03/20/23by Dr Albin Pereyra. She reports she has done fine since the surgery and is anxious to get started tonight. Inspire Activation Visit Patient was brought into office 5 weeks post Inspire implant for device activation and tuning. All incisions (neck, chest and intercostal) were checked with no evidence of any infection. A functionaltongue exam was performed and confirmed normal tongue motion (up, down, left, right and ability to clean back molars). The physician tablet was used to connect to the generator for testing and programming. Sensation threshold was obtained and recorded to be 1.0 Volts Functional threshold was obtained and recorded to be 1.0 Volts The device was programmed to a range of 1.0 V to 2.0 V once the patient confirmed comfortable/tolerable limit of 1.0 V. Device waveform was run and confirmed to rise and fall, with a screenshot saved in the tablet. The patient confirmed that stimulation during this waveform testing was comfortable and tolerable. The patient was educated on the inspire remote, its function and capability. Start Delay, Pause Duration, and Therapy Duration were discussed with patient and changed per patients sleeping habits and request to 40 mins, 15 mins, 10 hours, respectively. The ON/OFF/PAUSE/INCREASE/DECREASE remote parameters were discussed and clearly understood by patient. Patient was instructed to use Inspire ???all night every night?? , and step up stimulation everyfew nights as tolerated. Patient will return to office for a follow up in 6 weeks to discuss next steps and scheduled an overnight PSG Inspire titration. Personal Hx: Social History Tobacco Use Smoking Status Never Passive exposure: Never Smokeless Tobacco Never PMH: Past Medical History: Diagnosis Date Autoimmune disease (CMS/HCC) (HCC) Benign left breast lump 06/2002 biopsy showed fibrosis and hyperplasia Brain aneurysm Followed by Dr. Chaudhari: Every 3 years Breast cancer (HCC) 2014 Invasive ductal carcinoma Cataract CME (cystoid macular edema), bilateral Depression Elevated cholesterol History of chemotherapy 2014 Breast cancer History of radiation therapy 2015 Right breast Hypertension Migraine Motion sickness sometimes on [place] Obstructive sleep apnea 06/19/2022 RA (rheumatoid arthritis) ([facility]) PSH: Past Surgical History: Procedure Laterality Date ANGIO SELECTIVE CAROTID DRAPERY HEAD FORMER RIGHT Right 01/28/2023 ANGIO SELECTIVE INTERNAL CAROTID LEFT Left 03/12/2022 BREAST BIOPSY Left 2003 benign BREAST LUMPECTOMY Right 2014 Invasive ductal carcinoma CEREBRAL ANEURYSM REPAIR 06/16/2022 COLONOSCOPY 03/06/2020 CYST REMOVAL 1998 thyroid ENDOMETRIAL ABLATION 02/2007 EYE SURGERY Bilateral 2021 cataract HYSTEROSCOPY PORT PLACEMENT CHEST >5 YEARS N/A 01/17/2015 PORT REMOVAL N/A 04/10/2015 RHINOPLASTY 1985 THYROIDECTOMY, PARTIAL Left 1997 Dr. Demetris Aguilar TONSILLECTOMY 1983 TUBAL LIGATION 02/2007 VITRECTOMY Right 09/23/2022 for CME Family Hx: Family History Problem Relation Age of Onset [...] Hyperthermia Neg Hx Pseudochol deficiency Neg Hx Allergies: Allergies Allergen Reactions Adhesive Hives Paper tape OK Cyclizine Other (See comments) and Hallucinations Marezine about 1982 Reaction: Urinary retention Current Meds: Current Outpatient Medications Medication Sig Dispense Refill [...] MG) BY MOUTH DAILY 90 tablet 1 bgjojzgetp-lwgrlheunbvcf-kwlgsiqm-codeine (FIORICET WITH CODEINE) 52-252-40-30 mg per capsule Take 1 capsule by mouth every 6 (six) hours as needed for headaches 10 capsule 0 ezetimibe (ZETIA) 10 mg tablet Take 1 tablet (10 mg total) by mouth daily 90 tablet 2 famotidine-Ca carb-mag hydrox (PEPCID COMPLETE) 10-800-165 mg chewable tablet Take 1 tablet by mouth daily as needed for heartburn FLUoxetine (PROzac) 10 mg tablet/capsule Take 1 tablet/capsule (10 mg total) by mouth daily 90 capsule 0 folic acid (FOLVITE) 1 mg tablet Take [...] tablet 1 lisinopriL (PRINIVIL,ZESTRIL) 40 mg tablet Take 1 tablet (40 mg total) by mouth daily (Patient taking differently: Take 1 tablet (40 mg total) by mouth every morning) 90 tablet 4 magnesium gluconate 200 mg tablet Take 1 tablet (200 mg total) by mouth as needed sleep meclizine (ANTIVERT) 12.5 mg tablet Take 1 tablet (12.5 mg total) by mouth 3 (three) times a day asneeded for dizziness 20 tablet 0 methotrexate 2.5 mg tablet Take 8 tablets on (Patient taking differently: Take 8 tablets (20 mg total) by mouth every 7 days Take 8 tablets on ) 96 tablet 2 multivitamin with minerals tablet Take 1 tablet by mouth every morning Nurtec ODT tablet,disintegrating oxyCODONE (ROXICODONE) 5 mg immediate release tablet Take 1 tablet (5 mg total) by mouth every 4 (four) hours as needed for pain 10 tablet 0 sulfaSALAzine EN (AZULFIDINE EN) 500 mg EC tablet TAKE 2 TABLETS(1000 MG) BY MOUTH TWICE DAILY (Patient taking differently: Take 1 tablet (500 mg total) by mouth every morning) 360 tablet 0 valACYclovir (Valtrex) 500 mg tablet Take 1 tablet (500 mg total) by mouth daily (Patient taking differently: Take 1 tablet (500 mg total) by mouth every morning) 90 tablet 2 vit I-G-huzera-zinc-lutein (PreserVision Lutein) 226-90-0.8-5 mg capsule Take 1 tablet by mouth 2 (two) times a day traZODone (DESYREL) 50 mg tablet Take 1 tablet (50 mg total) by mouth nightly as needed for sleep 30 tablet 5 No current facility-administered medications for this visit. Review of Systems: Review of Systems Constitutional: Negative. HENT: Negative. Eyes: Negative. Respiratory: Negative. Cardiovascular: Negative. Gastrointestinal: Negative. Endocrine: Positive for cold intolerance. Genitourinary: Negative. Musculoskeletal: Negative. Allergic/Immunologic: Negative. Neurological: Positive for headaches. Hematological: Negative. Psychiatric/Behavioral: Negative. Physical Exam: Vitals BP 140/84 (BP Location: Left arm, Patient Position: Sitting) Pulse 70 Temp 36.4 ??C (97.6 ??F) (Temporal) Ht 167.6 cm (5' 6 ) Wt 66.5 kg (146 lb 8 oz) LMP (LMP Unknown) SpO2 96% BMI 23.65 kg/m?? Physical Exam Constitutional: General: She is not in acute distress. Appearance: She is well-developed. HENT: Head: Normocephalic and atraumatic. Mouth/Throat: Comments: M4 posterior pharynx Eyes: Conjunctiva/sclera: Conjunctivae normal. Pupils: Pupils are equal, round, and reactive to light. Cardiovascular: Rate and Rhythm: Normal rate and regular rhythm. Heart sounds: Normal heart sounds. Pulmonary: Effort: Pulmonary effort is normal. Breath sounds: Normal breath sounds. Abdominal: General: Bowel sounds are normal. Palpations: Abdomen is soft. Musculoskeletal: General: Normal range of motion. Cervical back: Normal range of motion and neck supple. Skin: General: Skin is warm and dry. Neurological: Mental Status: She is alert and oriented to person, place, and time. Psychiatric: Behavior: Behavior normal. Thought Content: Thought content normal. Judgment: Judgment normal. Assessment and Plan: JOSE S/p hypoglossal nerve stimulator This patient is a 62 year old female with a history of HLD, HTN, breast cancer, depression who presents to the [facility] for sleep follow up and Inspire activation. The Inspire device was activated today in our clinic as detailed above in the HPI. The patient was instructedon use of her remote and her phone casa was linked. We discussed how untreated JOSE can lead to unrefreshing sleep and excessive daytime sleepiness, as well as how it contributes over the termite technician to cardiovascular and cerebrovascular risk, recalcitrant hypertension, and difficulty with weight loss. - will start on Inspire this evening at level 1 which is 1.0volts - encouraged to use Inspire all night, every night - not to drive if sleepy - to contact me with any questions or concerns - f/u 5 weeks Follow Up: Return in about 5 weeks (around 06/04/2023). Closing Thank you for allowing us to participate in Yesika's care. Please do not hesitate to contact us should you have further questions TER MACHINE OPERATOR documented in this encounter Plan of Treatment Not on file documented as of this encounter Visit Diagnoses Diagnosis Obstructive sleep apnea- Primary Obstructive sleep apnea (adult) (pediatric) Intolerance of continuous positive airway pressure (CPAP) ventilation S/P placement of hypoglossal nerve stimulator documented in this encounter Care Teams Public Health Engineer Relationship Specialty Start Date End Date Sylvia Dawson PA [address] [facility] [address] [place] [address] PCP - General Internal Medicine 01/05/20 Erica Rodrigues MD [address] [place] [address] Radiation Oncologist Radiation Oncology 10/25/18 Gasper Kaba MD [address] [place] [address] Surgeon Surgical Oncology 10/25/18 Brandy Aguirre, DRAPERY HEAD FORMER [address] [place] [address] Nurse Practitioner Certified Clinical Nurse Specialist 10/25/18 Jo-Ann Morrow, PhD [address] [place] [address] Nurse Practitioner Radiation Oncology 10/25/18 Christina Louis, TRAIN CLERK [address] [place] [address] Nurse Practitioner Medical Oncology 10/25/18 Jessy Adame MD [address] [facility] OPH[facility]AL[facility]OLOG[facility], [address] [place] [address] Consulting Physician Retina Ophthalmology 04/15/23 Harpal Carpio MD [address] [place] [address] Neurologist Neurology 04/15/23 Rossana Church DNP [address] [facility] [place] [address] Nurse Practitioner Nurse Practitioner 04/15/23 Zahida Kaplan PA [address] NEUROLOGY GENERAL, [facility] [address] [place] [address] Physician Advanced Practice Professional Physician Advanced Practice Professional 04/15/23 Fadi Cook PA [address] [facility] DIV NEUROLOGY SLEEP [facility], [facility] [address] [place] [address] Physician Advanced Practice Professional Sleep Medicine 04/15/23 Harpal De León MD [address] [place] [address] Master Automotive Technician Cardiology 04/15/23 Valorie Young MD [address] [facility] [address] [facility] [place] [address] Master Automotive Technician Cardiology 04/15/23 Patricia Martinez MD [address] [facility] IM RHEUMATOLOGY, [facility] [address] [place] [address] Consulting Physician Rheumatology 04/15/23 documented as of this encounter
--- OUTSIDE RECORDS SUMMARY | 2024-04-24 05:48 | XMS_ITS | Encounter Summary ---
Author Organization [facility] Address [address] [place] [address] Phone Care Team Providers Care Rn Telephone Triage Name Role Phone Erica Rodrigues MD Unavailable Gasper Kaba MD Unavailable Brandy Aguirre DONOR RELATIONS OFFICER Unavailable [phone] Jo-Ann Morrow PhD Unavailable Christina Louis SUPERVISOR POULTRY FARM Unavailable [phone] Syliva Dawson Primary Care Provider [phone] Jessy Adame MD Unavailable Harpal Carpio MD Unavailable Rossana Church DNP Unavailable Zahida Kaplan Unavailable Fadi Cook Unavailable Harpal De León MD Unavailable Valorie Young MD Unavailable Patricia Martinez MD Unavailable Reason for Referral * Diagnostic Lab (Routine) - Closed Specialty Diagnoses / Procedures Referred By Contac t Referred To Contact Lab Procedures - Miscellaneous Test Provider, MD [address] [place] [address] Phone: tel: Referral ID Status Reason Start Date Expiration Date Visits Re quested Visits Authorized [id number] Closed 08/24/2023 09/22/2024 1 1 Encounter Details Date Type Department Care Team (Late st Contact Info) Description 08/24/2023 Orders Only [facility] Pediatric Genetics [facility] 2nd [place] [address] [place] [address] ProviderRonda MD [address] [place] [address] Social History Tobacco Use Types Packs/Day Years [...] on file Legal Sex Female 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 Gender Identity Not on file Sexual Orientation Not on file 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 Not on file Not on file Not on file documented as of this encounter Plan of Treatment Not on file documented as of this encounter Procedures Procedure Name Priority Date/Time Associated Diagnosis Comments MISCELLANEOUS GENETICS LAB Routine 08/24/2023 11:07 AM CDT documented in this encounter Results * - Miscellaneous Test (08/24/2023 11:07 AM CDT) Miscellaneous us Historical Provider LAB GENETIC TESTING Final Result [facility] Department [place] [address] documented in this encounter Visit Diagnoses Not on filedocumented in this encounter Care Teams Rn Telephone Triage Relationship Specialty Start Date End Date Sylvia Dawson PA [address] [place], [place] [id number] PCP - General Internal Medicine 01/05/20 Erica Rodrigues MD [address] [place] [address] Radiation Oncologist Radiation Oncology 10/25/18 Gasper Kaba MD [address] [facility] [address] [place] [address] Surgeon Surgical Oncology 10/25/18 Brandy Aguirre, DONOR RELATIONS OFFICER [address] [place] [address] Nurse Practitioner Certified Clinical Nurse Specialist 10/25/18 Jo-Ann Morrow, PhD [address] [place] [address] Nurse Practitioner Radiation Oncology 10/25/18 Christina Louis NP [address] [facility] [address] [place] [address] Nurse Practitioner Medical Oncology 10/25/18 Jessy Adame MD [address] [facility], [address] [place] [address] Consulting Physician Retina Ophthalmology 04/15/23 Harpal Carpio MD [address] [place] [address] Neurologist Neurology 04/15/23 Rossana Church DNP [address] [place] [address] Nurse Practitioner Nurse Practitioner 04/15/23 Zahida Kaplan PA [address] NEUROLOGY [facility], [facility] [address] [place] [address] Physician Thread Dresser Physician Thread Dresser 04/15/23 Fadi Cook PA [address] NEUROLOGY SLEEP MED, [address] [address] Physician Thread Dresser Sleep Medicine 04/15/23 Harpal De León MD [address] [facility] [address] [address] Door To Door Fundraising Collector Cardiology 04/15/23 Valorie Young MD [address] [facility] [address] [place] [address] Door To Door Fundraising Collector Cardiology 04/15/23 Patricia Martinez MD [address] IM RHEUMATOLOGY, [address] [address] Consulting Physician Rheumatology 04/15/23 documented as of this encounter
--- OUTSIDE RECORDS SUMMARY | 2024-04-24 05:48 | XMS_ITS | Encounter Summary ---
Author Organization [facility] Address [address] [place] [address] Phone Care Team Providers Care Knitter Helper Name Role Phone Erica Rodrigues MD Unavailable Gasper Kaba MD Unavailable Brandy Aguirre BLOOD BANK SPECIALIST Unavailable Jo-Ann Morrow PhD Unavailable Christina Louis CHECK AIRMAN Unavailable [phone] Sylvia Dawson Primary Care Provider [phone] Jessy Adame MD Unavailable Harpal Carpio MD Unavailable Rossana Church DNP Unavailable Zaihda Kaplan Unavailable Fadi Cook Unavailable Harpal De León MD Unavailable Valorie Young MD Unavailable Patricia Martinez MD Unavailable [phone] Reason for Referral * Sleep Medicine (Routine) - Closed Specialty Diagnoses / Procedures Referred By Contac t Referred To Contact Diagnoses JOSE (obstructive sleep apnea) Procedures Portable/Home Sleep Study Fadi Cook, PA [address] [place] [address] Phone: tel: fax: [facility] (All Locations) Referral ID Status Reason Start Date Expiration Date Visits Re quested Visits Authorized [id number] Closed 06/03/2023 07/12/2023 1 1 AND VAULT INSTALLER Reason for Visit * Reason Comments Follow-up Encounter Details Date Type Department Care Team (Late st Contact Info) Description 06/03/2023 12:30 PM SAFE AND VAULT INSTALLER Office Visit 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 Not on file Not on file Not on file documented as of this encounter Last Filed Vital Signs Vital Sign Reading Time Taken Comments Blood Pressure 115/75 06/03/2023 12:16 PM SAFE AND VAULT INSTALLER Pulse 66 06/03/2023 12:16 PM SAFE AND VAULT INSTALLER Temperature 36.8 ??C (98.3 ??F) 06/03/2023 12:[address] Respiratory Rate - - Oxygen Saturation 98% 06/03/2023 12:16 PM SAFE AND VAULT INSTALLER Inhaled Oxygen Concentration - - Weight 65.5 kg (144 lb 8 oz) 06/03/2023 12:16 PM SAFE AND VAULT INSTALLER Height 160 cm (5' 3 ) 06/03/2023 12:16 PM SAFE AND VAULT INSTALLER Body Mass Index 25.6 06/03/2023 12:16 PM SAFE AND VAULT INSTALLER documented in this encounter Progress Notes * Fadi Cook, PA - 06/03/2023 12:30 PM CST CC: here for sleep f/u HPI: Yesika Denney is a 62 y.o. female with a history of HLD, HTN, breast cancer, depression who presents to the [facility] for sleep follow up and Inspire follow up. The patient had her initial PSG at OSH in 04/2022 in which she had an AHI greater than 40. She was started on PAP therapy but could not tolerate it. She subsequently had a mandibular advancement device made anddid repeat sleep study with this in place on 12/16/22 which revealed an JEAN-PAUL of 25.4 events per hour. Given the poor outcome, the patient pursued Inspire therapy and ultimately was implanted on 03/20/[address] Albin Pereyra. Her device was activated my me at our sleep center on 04/30/23. From previous note: Inspire Activation Visit Patient was brought into [...] and scheduled an overnight PSG Inspire titration. Today the patient returns for her follow up from activation. She has been using her device every night with an average usage of 10:14 per night. She has 0.0 pauses during the night. The patient reports that she has done well other than inability to fall asleep for 1 to 1.5 hours and frequent awakenings. She is currently on Lunesta 2mg without improvement in her sleep quality. Her other concern ispulsatile tinnitus that has been occurring with use of device. She is having this evaluated with anI. 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 Personal Hx: Social History Tobacco Use Smoking Status Never Passive exposure: Never Smokeless Tobacco Never PMH: Past Medical History: Diagnosis Date Autoimmune disease (CMS/HCC) (HCC) Benign left breast lump 06/2002 biopsy showed fibrosis and hyperplasia Brain aneurysm Followed by Dr. Chaudhari: Every 3 years Breast cancer (HCC) 2015 Invasive ductal carcinoma Cataract CME (cystoid macular edema), bilateral Depression Elevated cholesterol History of chemotherapy 2015 Breast cancer History of radiation therapy 2015 Right breast Hypertension Migraine Motion sickness sometimes on [place] Obstructive sleep apnea 06/19/2022 RA (rheumatoid arthritis) ([facility]) PSH: Past Surgical History: Procedure Laterality Date ANGIO SELECTIVE CAROTID BLOOD BANK SPECIALIST RIGHT Right 01/28/2023 ANGIO SELECTIVE INTERNAL CAROTID [...] Other (See comments) and Hallucinations Marezine about 1981 Reaction: Urinary retention Current Meds: Current Outpatient [...] MG) BY MOUTH DAILY 90 tablet 1 qenifctlzq-qzjjhgtwgfoki-almpzxeo-codeine (FIORICET WITH CODEINE) [id number] mg per capsule Take 1 capsule by [...] MOUTH TWICE DAILY 360 tablet 0 valACYclovir (Valtrex) 500 mg tablet Take 1 tablet (500 mg total) by mouth daily (Patient taking differently: Take 1 tablet (500 mg total) by mouth every morning) 90 tablet 2 vit K-V-nwqrma-zinc-lutein (PreserVision Lutein) 226-90-0.8-5 mg capsule Take 1 tablet by mouth 2 (two) times a day traZODone (DESYREL) 50 mg tablet Take 1 tablet (50 mg total) by mouth nightly as needed for sleep (Patient not taking: Reported on 06/03/2023) 30 tablet 5 No current facility-administered medications for this visit. Review of Systems: Review of Systems Constitutional: Negative. HENT: Negative. Eyes: Negative. Respiratory: Negative. Cardiovascular: Negative. Gastrointestinal: Negative. Endocrine: Positive for cold intolerance. Genitourinary: Negative. Musculoskeletal: Negative. Allergic/Immunologic: Negative. Neurological: Positive for headaches. Hematological: Negative. Psychiatric/Behavioral: Negative. Physical Exam: Vitals BP 115/75 (BP Location: Left arm, Patient Position: Sitting) Pulse 66 Temp 36.8 ??C (98.3 ??F) (Temporal) Ht 160 cm (5' 3 ) Wt 65.5 kg (144 lb 8 oz) LMP (LMP Unknown) SpO2 98% BMI 25.60 kg/m?? Physical Exam Constitutional: General: She is [...] and Plan: JOSE S/p hypoglossal nerve stimulator Insomnia This patient is a 62 year old female with a history of HLD, HTN, breast cancer, depression who presents to the [facility] for sleep follow up and Inspire follow up. The patient had her device activated here on 04/30/23 and has been using every night with averaging greater than 10 hours per night. She is currently at 1.4volts which is level 5 on her remote. Her biggest concern currently is that she is having great difficulty falling asleep with her Inspire. She has tried Trazodone without success and is currently on Eszopiclone 2mg qhs without relief. Her device has a 40minute delay but she is still awake when it kicks in. She thinks it is helping her and she has no snoring. - Sleep study to assess for JOSE given the signs and symptoms detailed above. This will be performedas an ambulatory sleep study with the Inspire device. - No driving if sleepy was stressed to the patient - Our office will call the patient with results and discuss plan of care - f/u will be determined after sleep study results - The patient was given my card and was instructed to call with questions or concerns Follow Up: Return for to be determined after sleep study. Closing Thank you for allowing us to participate in Yesika's care. Please do not hesitate to contact us should you have further questions AND VAULT INSTALLER documented in this encounter Plan of Treatment Not on file documented as of this encounter Results * PORTABLE/HOME SLEEP STUDY (06/15/2023 10:00 PM SAFE AND VAULT INSTALLER) Narrative Celio Rivero MD - 06/15/2023 10:00 PM SAFE AND VAULT INSTALLER Celio Rivero MD ? 06/24/2023 ??7:04 AM Portable/Home Sleep Study Date/Time: 06/15/2023 10:00 PM Performed by: Fadi Cook PA Authorized by: Fadi Cook PA ?? us [facility] ORDERABLES Fin al Result documented in this encounter Visit Diagnoses Diagnosis JOSE (obstructive sleep apnea)- Primary Obstructive sleep apnea (adult) (pediatric) Hypertension, essential Unspecified essential hypertension S/P placement of hypoglossal nerve stimulator JOSE (obstructive sleep apnea)- Primary Obstructive sleep apnea (adult) (pediatric) documented in this encounter Care Teams Knitter Helper Relationship Specialty Start Date End Date Sylvia Dawson PA [address] [place] [address] PCP - General Internal Medicine 01/05/20 Erica Rodrigues MD [email or web address] [place] [address] Radiation Oncologist Radiation Oncology 10/25/18 Gasper Kaba MD [address] [facility] [address] [place] [address] Surgeon Surgical Oncology 10/25/18 Brandy Aguirre CNS [address] [facility] [address] [place] [address] Nurse Practitioner Certified Clinical Nurse Specialist 10/25/18 Jo-Ann Morrow, PhD [address] [facility] [address] [place] [address] Nurse Practitioner Radiation Oncology 10/25/18 Christina Louis, CHECK AIRMAN [address] [facility] [address] [place] [address] Nurse Practitioner Medical Oncology 10/25/18 Jessy Adame MD [address] [facility] DEPT OPHTHALMOLOGY, [address] [place] [address] Consulting Physician Retina Ophthalmology 04/15/23 Harpal Carpio MD [address] [place] [address] Neurologist Neurology 04/15/23 Rossana Church DNP [address] [place] [address] Nurse Practitioner Nurse Practitioner 04/15/23 Zahida Kaplan PA [address] [facility] [address] NEUROLOGY [facility], [address] [address] Physician Vegetable Tier Physician Vegetable Tier 04/15/23 Fadi Cook PA [address] NEUROLOGY SLEEP MED, [address] [place] [address] Physician Vegetable Tier Sleep Medicine 04/15/23 Harpal De León MD [address] [place] [address] Mirror Silverer Cardiology 04/15/23 Valorie Young MD [address] [place] [address] Mirror Silverer Cardiology 04/15/23 Patricia Martinez MD [address] [facility] IM RHEUMATOLOGY, [address] [address] Consulting Physician Rheumatology 04/15/23 documented as of this encounter
--- OUTSIDE RECORDS SUMMARY | 2024-04-24 05:48 | XMS_ITS | Encounter Summary ---
Author Organization [facility] Address [address] [place] [address] Phone Care Team Providers Care Backpackers Manager Name Role Phone Erica Rodrigues MD Unavailable Gasper Kaba MD Unavailable Brandy Aguirre SCREEN ROOM OPERATOR Unavailable Jo-Ann Morrow PhD Unavailable Christina Louis HIGHWAY ENGINEERING TEACHER Unavailable [phone] Sylvia Dawson Primary Care Provider [phone] Jessy Adame MD Unavailable Harpal Carpio MD Unavailable [phone] Rossana Church DNP Unavailable [phone] Zahida Kaplan Unavailable Fadi Cook Unavailable Harpal De León MD Unavailable Valorie Young MD Unavailable Patricia Martinez MD Unavailable Reason for Visit * Reason Onset Date Comments MILAD Prior Auth Request 08/25/2023 Test Results 08/25/2023 Encounter Details Date Type Department Care Team (Late st Contact Info) Description 08/25/2023 Telephone [facility] Pediatric Genetics [address] [facility] [address] [place] [address] Wen Montenegro MD [address] [place] [address] MILAD Prior Auth Request; Test Results Social History Tobacco Use Types [...] on file Legal Sex Female 3:42 AM PIPE FITTER SUPERVISOR Gender Identity Not on file Sexual Orientation Not on file 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 Test name: Exome Sequencing - Trio CPT 78834, 516[address] x2 Auth number #[id number] Approval window: 09.02.23 - 11.30.23 * Telephone Encounter - Vale Hammer CNA - 09/01/2023 8:54 AM CDT The patient's insurance requires the ordering clinician's office obtain authorization through [facility], therefore we are unable to initiate the pre- certification process. Below you will find contact information for [facility] as well as our lab demographics to aid in the pre-certification process. [facility] Web Portal:[email or web address] [facility] [address] [facility] [address] [place] [address] TIN: [id number] *Out of pocket costs can be estimates post approval by rerouting back to Pathology Precert Pool.* No other active ins listed in pt chart * Telephone Encounter - Patience Diane CGC - 08/31/2023 1:37 PM CDT I discussed the negative TAAD panel results with Yesika Mandujano, I offered proceeding with MILAD/checking on insurance auth. Yesika Mandujano is interested, this would be with her mother. Yesika Mandujano did mention shesubmitted testing with Stripe (whole genome sequencing). I asked when results come back, and Yesika Mandujano said it takes a few months. In the meantime, we will check on insurance auth for MILAD * Telephone Encounter - Wen Montenegro MD - 08/25/2023 12:53 PM CDT Genetics Results Note Date: 08/25/23 Test/Study: Thoracic Aortic Aneurysm and Dissection Panel (TAAD) - GeneDX Results: Negative No causative variants were identified. Clinical Impression These results are negative. Negative genetic testing can not rule out a genetic etiology not evaluated by this assay. 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 Does not meet clinical diagnostic criteria for vEDS so would not pursue additional targeted testing for vEDS as this would require a skin biopsy. If desired, could consider MILAD given family history of BAV and TAAD in mother whichmay be related to arterial aneurysms and is increasingly found to be due to variants in genes associated with Congenital Heart Disease (PMID: 80290500). 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 Myopia of both eyes Benign familial hypermobility documented in this encounter Care Teams Backpackers Manager Relationship Specialty Start Date End Date Sylvia Dawson PA [address] [place] [address] PCP - General Internal Medicine 01/05/20 Erica Rodrigues MD [address] [facility] [address] [facility] [address] [place] [address] Radiation Oncologist Radiation Oncology 10/25/18 Gasper Kaba MD [address] [facility] [address] [facility] [address] [place] [address] Surgeon Surgical Oncology 10/25/18 Brandy Aguirre CNS [address] [facility] [address] [facility] [address] [place] [address] Nurse Practitioner Certified Clinical Nurse Specialist 10/25/18 Jo-Ann Morrow, PhD [address] [facility] [address] [place] [address] Nurse Practitioner Radiation Oncology 10/25/18 Christina Louis NP [address] [facility] [address] [place] [address] Nurse Practitioner Medical Oncology 10/25/18 Jessy Adame MD [address] [facility], [address] [place] [address] Consulting Physician Retina Ophthalmology 04/15/23 Harpal Carpio MD [address] [place] [address] Neurologist Neurology 04/15/23 Rossana Church DNP [address] [place] [address] Nurse Practitioner Nurse Practitioner 04/15/23 Zahida Kaplan PA [address] [facility] NEUROLOGY [facility], [facility] [address] [place] [address] Physician Referral Clerk Physician Referral Clerk 04/15/23 Fadi Cook PA [address] [facility] NEUROLOGY SLEEP MED, [facility] [address] [place] [address] Physician Referral Clerk Sleep Medicine 04/15/23 Harpal De León MD [address] [facility] [address] [place] [address] Master Cook Cardiology 04/15/23 Valorie Young MD [address] [facility] [address] [place] [address] Master Cook Cardiology 04/15/23 Patricia Martinez MD [address] [facility] DIV IM RHEUMATOLOGY, [address] [address] Consulting Physician Rheumatology 04/15/23 documented as of this encounter
--- OUTSIDE RECORDS SUMMARY | 2024-04-24 05:48 | XMS_ITS | Encounter Summary ---
Author Organization [facility] Healthcare Address [address] [place] [address] Care Team Providers Care Look Out Tower Fire Watcher Name Role Phone Erica Rodrigues MD Unavailable Gasper Kaba MD Unavailable Brandy Aguirre Unavailable Jo-Ann Morrow PhD Unavailable Christina Louis CLOCK AND WATCH ASSEMBLER Unavailable [phone] Sylvia Dawson Primary Care Provider [phone] Jessy Adame MD Unavailable Harpal Carpio MD Unavailable Rossana Church [facility] Unavailable Zahida Kaplan Unavailable Fadi Cook Unavailable aHrpal De León MD Unavailable Valorie Young MD Unavailable Patricia Martinez MD Unavailable Reason for Referral * Diagnostic Imaging (Routine) - Closed Specialty Diagnoses / Procedures Referred By Contac t Referred To Contact Diagnoses Encounter for imaging to screen for metal prior to magnetic resonance imaging (MRI) Procedures XR Skull Less than 4 Views Jojo Arciniega MD PhD [address] [facility] [address] [place] [address] Phone: tel: fax: [address] [phone] Referral ID Status Reason Start Date Expiration Date Visits Re quested Visits Authorized [id number] Closed 05/21/2023 06/19/2024 1 1 RETE BATCH PLANT OPERATOR Reason for Visit * Diagnostic Imaging (Routine) - Closed Specialty Diagnoses / Procedures Referred By Contac t Referred To Contact Diagnoses Encounter for imaging to screen for metal prior to magnetic resonance imaging (MRI) Procedures XR Skull Less than 4 Views Jojo Arciniega MD PhD [address] [facility] [address] [place] [address] Phone: tel: fax: [address] [phone] Referral ID Status Reason Start Date Expiration Date Visits Re quested Visits Authorized [id number] Closed 05/21/2023 06/19/2024 1 1 Encounter Details Date Type Department Care Team (Latest Contact Info) Description 05/21/2023 8:01 AM CONCRETE BATCH PLANT OPERATOR - 05/21/2023 11:59 PM CONCRETE BATCH PLANT OPERATOR Hospital Encounter [facility] [address] [place] [address] Encounter for imaging to screen for metal prior to magnetic resonance imaging (MRI) Discharge Disposition: Discharge to home or self [...] on file Legal Sex Female 3:42 AM CONCRETE BATCH PLANT OPERATOR Gender Identity Not on file Sexual Orientation Not on file 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 2 aspirin 81 mg enteric coated tablet Take 1 tablet (81 mg total) by mouth daily 90 tablet 3 3 butalbital-acetamin atmes-vpoyazgl-fprk ine (FIORICET WITH CODEINE) 24-817-87-30 mg per capsuleIndications: Nonintractable headache, unspecified chronicity pattern, unspecified headache type Take 1 capsule by mouth every 6 (six) hours as needed for headaches 10 capsule 3 famotidine-Ca carb-mag hydrox (PEPCID COMPLETE) 10-800-165 mg chewable tabletIndications:H eartburn Take 1 tablet by mouth daily as needed for heartburn hydroCHLOROthiazide (HYDRODIURIL) 12.5 mg tablet TAKE 1 TABLET(12.5 MG) BY MOUTH DAILY 90 tablet 1 3 magnesium gluconate 200 mg tabletIndications:h ypomagnesemia Take 1 tablet (200 mg total) by mouth as needed sleep meclizine (ANTIVERT) 12.5 mg tablet Take 1 tablet (12.5 mg total) by mouth 3 (three) times a day as needed for dizziness 20 tablet 3 multivitamin with minerals tabletIndications:V itamin Deficiency Prevention Take 1 tablet by mouth every morning vit J-R-bwjieb-zinc-lut ein (PreserVision Lutein) 226-90-0.8-5 mg capsuleIndications: Eye support Take 1 tablet by mouth 2 (two) times a day atenoloL (TENORMIN) 25 mg tablet TAKE 1 TABLET(25 MG) BY MOUTH DAILY 90 tablet 1 3 09/09/19 24 eszopiclone (LUNESTA) 2 mg tabletIndications:I nsomnia Take 1 tablet (2 mg total) by mouth daily Take immediately before bedtime 30 tablet 5 4 09/08/19 24 ezetimibe (ZETIA) 10 mg tabletIndications:M ixed hyperlipidemia Take 1 tablet (10 mg total) by mouth daily 90 tablet 2 3 09/08/19 24 FLUoxetine (PROzac) 10 mg tablet/capsule Take 1 tablet/capsule (10 mg total) by mouth daily 90 capsule 3 07/08/19 24 folic acid (FOLVITE) 1 mg tablet Take 2 tablets (2,000 mcg total) by mouth daily 180 tablet 3 3 09/03/19 24 gabapentin (NEURONTIN) 100 mg capsule Take 1 capsule (100 mg total) by mouth 2 (two) times a day 60 capsule 1 3 03/23/20 24 lisinopriL (PRINIVIL,ZESTRIL) 40 mg tabletIndications:H ypertension, essential Take 1 tablet (40 mg total) by mouth daily 90 tablet 4 3 07/23/19 24 methotrexate 2.5 mg tabletIndications:a utoimmune disease TAKE 8 TABLETS BY MOUTH WEEKLY ON THURSDAYS 96 tablet 2 4 01/11/20 24 Nurtec ODT tablet,disintegrati ng 3 02/12/20 24 oxyCODONE (ROXICODONE) 5 mg immediate release tabletIndications:P ain Take 1 tablet (5 mg total) by mouth every 4 (four) hours as needed for pain 10 tablet 3 09/08/19 24 sulfaSALAzine EN (AZULFIDINE EN) 500 mg EC tablet TAKE 2 TABLETS BY MOUTH TWICE DAILY 360 tablet 4 08/07/19 24 traZODone (DESYREL) 50 mg tablet Take 1 tablet (50 mg total) by mouth nightly as needed for sleep 30 tablet 5 4 09/08/19 24 valACYclovir (Valtrex) 500 mg tabletIndications:R ecurrent cold sores Take 1 tablet (500 mg total) by mouth daily 90 tablet 2 2 06/10/19 24 documented as of this encounter Discharge Disposition Disposition Code Departure Means Destination Discharge to home or self care documented in this encounter Plan of Treatment Not on file documented as of this encounter Procedures Procedure Name Priority Date/Time Associated Diagnosis Comments XR CHEST PA LATERAL 2 VIEWS Schedule Routine, Read Routine (OP Routine) 05/21/2023 8:19 AM CONCRETE BATCH PLANT OPERATOR Encounter for imaging to screen for metal prior to magnetic resonance imaging (MRI) XR SKULL LESS THAN 4 VIEWS Schedule Routine, Read Routine (OP Routine) 05/21/2023 8:19 AM CONCRETE BATCH PLANT OPERATOR Encounter for imaging to screen for metal prior to magnetic resonance imaging (MRI) documented in this encounter Results * XR Skull Less than 4 Views (05/21/2023 8:19 AM CONCRETE BATCH PLANT OPERATOR) Anatomical Region Laterality Modality Head and Neck N/A Computed Radiogr aphy 05/21/2023 8:35 AM CONCRETE BATCH PLANT OPERATOR Impressions 05/21/2023 8:35 AM CONCRETE BATCH PLANT OPERATOR 1. ??Nonvisualized right hypoglossal nerve stimulator device with intact lead in the neck. Electronically signed by: Roddy Yost MD Narrative 05/21/2023 8:35 AM CONCRETE BATCH PLANT OPERATOR EXAMINATION: XR SKULL LESS THAN 4 VIEWS HISTORY: ??MRI screening TECHNIQUE: 2 radiographs of the neck and skull COMPARISON: 05/21/2023 FINDINGS: Right hypoglossal nerve stimulator device is not included on these images. ??A single lead traverses cranially appears intact without focal kink or discontinuity. ??There are surgical clips in the left lower neck. ??There is mild multilevel degenerative disc disease of the cervical spine. Procedure Note Roddy Yost MD - 05/21/2023 EXAMINATION: XR SKULL LESS THAN 4 VIEWS HISTORY: MRI screening TECHNIQUE: 2 radiographs of the neck and skull COMPARISON: 05/21/2023 FINDINGS: Right hypoglossal nerve stimulator device is not included on these images. A single lead traverses cranially appears intact without focal kink or discontinuity. There are surgical clips in the left lower neck. There is mild multilevel degenerative disc disease of the cervical spine. IMPRESSION: 1. Nonvisualized right hypoglossal nerve stimulator device with intact lead in the neck. Electronically signed by: Roddy Yost MD Jojo Arciniega MD PhD IMG XR PROCEDURES Fi nal Result * XR Chest PA Lateral 2 Views (05/21/2023 8:19 AM CONCRETE BATCH PLANT OPERATOR) Anatomical Region Laterality Modality Body, Chest N/A Computed Radiogr aphy 05/21/2023 10:2 1 AM CONCRETE BATCH PLANT OPERATOR Impressions 05/21/2023 10:21 AM CONCRETE BATCH PLANT OPERATOR Comparison is made to prior chest radiograph(s) dated 01/02/2023 at 11:35 AM. Electronic neurostimulator device is positioned within the right anterior chest wall, with one lead terminating in the right upper chest and the other coursing superiorly along the right lower neck with the tip collimated off the [id number]. No lead discontinuity. No abandoned leads. Surgical clips are noted in the left lower neck. Lungs are clear without evidence of focal consolidation or pulmonary edema. No pleural effusion or pneumothorax. Cardiac size and mediastinal contours are normal. Electronically signed by: Lexi Villafana M.D. Narrative 05/21/2023 10:21 AM CONCRETE BATCH PLANT OPERATOR EXAMINATION: 2 view chest radiograph Procedure Note Lexi Villafana MD - 05/21/2023 EXAMINATION: 2 view chest radiograph IMPRESSION: Comparison is made to prior chest radiograph(s) dated 01/02/2023 at 11:35 AM. Electronic neurostimulator device is positioned within the right anterior chest wall, with one lead terminating in the right upper chest and the other coursing superiorly along the right lower neck with the tip collimated off the [id number]. No lead discontinuity. No abandoned leads. Surgical clips are noted in the left lower neck. Lungs are clear without evidence of focal consolidation or pulmonary edema. No pleural effusion or pneumothorax. Cardiac size and mediastinal contours are normal. Electronically signed by: Lexi Villafana M.D. us Jojo Arciniega MD PhD IMG XR PROCEDURES Fi nal Result documented in this encounter Visit Diagnoses Diagnosis Encounter for imaging to screen for metal prior to magnetic resonance imaging (MRI) documented in this encounter Care Teams Look Out Tower Fire Watcher Relationship Specialty Start Date End Date Sylvia Dawson PA [address] [place] [address] PCP - General Internal Medicine 01/05/20 Erica Rodrigues MD [address] [place] [address] Radiation Oncologist Radiation Oncology 10/25/18 Gasper Kaba MD [address] [place] [address] Surgeon Surgical Oncology 10/25/18 Brandy Aguirre, CLEANER GREASER [address] [place] [address] Nurse Practitioner Certified Clinical Nurse Specialist 10/25/18 Jo-Ann Morrow, PhD [address] [place] [address] Nurse Practitioner Radiation Oncology 10/25/18 Christina Louis, CLOCK AND WATCH ASSEMBLER [address] [place] [address] Nurse Practitioner Medical Oncology 10/25/18 Jessy Adame MD [address] [facility] DEPT OPHTHALMOLOGY, [address] [place] [address] Consulting Physician Retina Ophthalmology 04/15/23 Harpal Carpio MD [address] [place] [address] Neurologist Neurology 04/15/23 Rossana Church DNP [address] [place] [address] Nurse Practitioner Nurse Practitioner 04/15/23 Zahida Kaplan PA [address] DIV NEUROLOGY [facility], [facility] [address] [place] [address] Physician Head Buyer Tobacco Physician Head Buyer Tobacco 04/15/23 Fadi Cook PA [address] DIV NEUROLOGY SLEEP [facility], [facility] [address] [place] [address] Physician Head Buyer Tobacco Sleep Medicine 04/15/23 Harpal De León MD [address] [facility] [address] [facility] [address] [place] [address] Steel Finisher Cardiology 04/15/23 Valorie Young MD [address] [facility] [address] [place] [address] Steel Finisher Cardiology 04/15/23 Patricia Martinez MD [address] [facility] DIV IM RHEUMATOLOGY, [address] [address] Consulting Physician Rheumatology 04/15/23 documented as of this encounter
--- OUTSIDE RECORDS SUMMARY | 2024-04-24 05:48 | XMS_ITS | Encounter Summary ---
Author Organization [facility] Healthcare Address [address] [place] [address] Care Team Providers Care Postdoctoral Scholar Name Role Phone Erica Rodrigues MD Unavailable Gasper Kaba MD Unavailable Brandy Aguirre LUBRICATING MACHINE TENDER Unavailable Jo-Ann Morrow PhD Unavailable [phone] Christina Louis PREPARATION PLANT SUPERVISOR Unavailable [phone] Sylvia Dawson Primary Care Provider [phone] Jessy Adame MD Unavailable Harpal Carpio MD Unavailable Rossana Church DNP Unavailable Zahida Kaplan Unavailable Fadi Cook Unavailable Harpal De León MD Unavailable Valorie Young MD Unavailable Patricia Martinez MD Unavailable [phone] Reason for Visit * MRI/CAT/PET Scan (Routine) - Closed Specialty Diagnoses / Procedures Referred By Contac t Referred To Contact Radiology Diagnoses Transient visual loss of both eyes Anisocoria Procedures CTA Head Neck W WO Contrast CTA Stroke Head Neck W WO Contrast Nicol Darling MD [address] [facility] [address] [place] [address] Phone: tel: fax: [facility] AMAYA Villagran [phone] Referral ID Status Reason Start Date Expiration Date Visits Re quested Visits Authorized [id number] Closed 05/04/2023 07/02/2023 1 1 Encounter Details Date Type Department Care Team (Latest Contact Info) Description 05/21/2023 6:41 AM INFORMATICS COORDINATOR - 05/21/2023 11:59 PM INFORMATICS COORDINATOR Hospital Encounter [facility]) [address] [place] [address] Transient visual loss of both eyes; Anisocoria Discharge Disposition: Discharge to home or self [...] on file Legal Sex Female 3:42 AM INFORMATICS COORDINATOR Gender Identity Not on file Sexual Orientation Not on file 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 Not on [...] mouth daily 90 tablet 3 3 butalbital-acetamin hbgor-sclmzgwd-pjpi ine (FIORICET WITH CODEINE) 70-317-57-30 mg per capsuleIndications: Nonintractable headache, unspecified chronicity [...] 1 tablet by mouth every morning vit L-H-kiyjrq-zinc-lut ein (PreserVision Lutein) 226-90-0.8-5 mg capsuleIndications: Eye [...] CONTRAST Schedule Routine, Read Routine (OP Routine) 05/21/2023 7:52 AM INFORMATICS COORDINATOR Transient visual loss of both eyes Anisocoria POCT CREATININE - DEVICE Routine 05/21/2023 7:34 AM INFORMATICS COORDINATOR documented in this encounter Results * CTA Head Neck W WO Contrast (05/21/2023 7:52 AM INFORMATICS COORDINATOR) Anatomical Region Laterality Modality Head and Neck N/A Computed Tomogra phy 05/21/2023 1:16 PM INFORMATICS COORDINATOR Impressions 05/21/2023 2:31 PM INFORMATICS COORDINATOR 1. 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 ??There is a CTA visible collection of contrast within the marker recess consistent with WEB occlusion scale B. 2. Bilateral cervical internal carotid artery stents. Dictated by: Ney Moreira MD The radiology attending physician has personally reviewed this study, and had reviewed and/or edited this written report and agrees with it. Electronically signed by: Apoorva Neal M.D. Narrative 05/21/2023 2:31 PM INFORMATICS COORDINATOR EXAMINATION: 1. Computed tomography angiography (CTA) of the head without and with contrast 2. 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 TECHNIQUE: CT of the head was performed with images acquired from skull base to vertex without intravenous contrast. Computed tomographic angiography was then obtained from the aortic arch to the vertex following the uneventful administration of intravenous contrast. 3D images were generated on a dedicated workstation. Contrast information: 88 mL Optiray-350 COMPARISON: Multiple, most recently angiogram performed 01/28/2023 FINDINGS: HEAD: Topogram demonstrates no lytic lesions [...] fractures are identified. ??Woven endobridge device is noted. NECK: Inspire device is noted. ??5 mm right thyroid nodule is noted. Changes [...] at the carotid bifurcation without significant stenosis. ??There is a stent within the distal cervical portion of the left internal carotid artery extending just proximal to the petrous portion. ??The stent appears patent. ??There is a stent within the proximal right cervical internal carotid artery which extends just proximal to the petrous internal carotid artery. 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 ??Redemonstrated is a woven endobridge device within the anterior communicating artery aneurysm. ??There is filling within the device neck, similar to prior conventional angiogram 01/28/2023. ?? No areas of atherosclerotic narrowing or filling defects are identified. ??The anterior and middle cerebral arteries are normal. The vertebral arteries are codominant. The basilar artery is normal. The posterior cerebral arteries are normal. Procedure Note Emile Neal, Apoorva Reno MD - 05/21/2023 EXAMINATION: 1. Computed tomography angiography (CTA) of the head without and with contrast 2. 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 TECHNIQUE: CT of the head was performed with images acquired from skull base to vertex without intravenous contrast. Computed tomographic angiography was then obtained from the aortic arch to the vertex following the uneventful administration of intravenous contrast. 3D images were generated on a dedicated workstation. Contrast information: 88 mL Optiray-350 COMPARISON: Multiple, most recently angiogram performed 01/28/2023 FINDINGS: HEAD: Topogram demonstrates no lytic lesions [...] fractures are identified. Woven endobridge device is noted. NECK: Inspire device is noted. 5 mm right thyroid nodule [...] at the carotid bifurcation without significant stenosis. There is a stent within the distal cervical portion of the left internal carotid artery extending just proximal to the petrous portion. The stent appears patent. There is a stent within the proximal right cervical internal carotid artery which extends just proximal to the petrous internal carotid artery. 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 Redemonstrated is a woven endobridge device within the anterior communicating artery aneurysm. There is filling within the device neck, similar to prior conventional angiogram 01/28/2023. No areas of atherosclerotic narrowing or filling defects are identified. The anterior and middle cerebral arteries are normal. The vertebral arteries are codominant. The basilar artery is normal. The posterior cerebral arteries are normal. IMPRESSION: 1. 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 There is a CTA visible collection of contrast within the marker recess consistent with WEB occlusion scale B. 2. Bilateral cervical internal carotid artery stents. Dictated by: Ney Moreira MD The radiology attending physician has personally reviewed this study, and had reviewed and/or edited this written report and agrees with it. Electronically signed by: Apoorva Neal M.D. Nicol Darling MD IM CT PROCEDURES Final Res ult * POCT creatinine (05/21/2023 7:34 AM INFORMATICS COORDINATOR) Creatinine POC 0.8 0.6 - 1.1 mg/dL [facility] Blood 05/21/2023 7:34 AM INFORMATICS COORDINATOR 05/21/2023 7:34 AM INFORMATICS COORDINATOR Sylvia JONES LAB POCT ORDERABLES - TERI CE Final Result [facility] Department [place] [address] documented in this encounter Visit Diagnoses Diagnosis Transient visual loss of both eyes Anisocoria documented in this encounter Administered Medications Inactive Administered Medications - up to 3 most recent administrations Medication Order MAR Action Action Date Dose Rate Site ioversoL (OPTIRAY 350) injection 100 mL 100 mL, intravenous, Once in imaging, contrast, Starting on Leny 05/21/23 at 0744, For 1 dose Contrast Given 05/21/2023 7:45 AM INFORMATICS COORDINATOR 88 mL documented in this encounter Care Teams Postdoctoral Scholar Relationship Specialty Start Date End Date Sylvia Dawson PA [address] [facility] [address] [place] [address] PCP - General Internal Medicine 01/05/20 Erica Rodrigues MD [address] [facility] [address] [place] [address] Radiation Oncologist Radiation Oncology 10/25/18 Gasper Kaba MD [address] [facility] [address] [place] [address] Surgeon Surgical Oncology 10/25/18 Brandy Aguirre CNS [address] [place] [address] Nurse Practitioner Certified Clinical Nurse Specialist 10/25/18 Jo-Ann Morrow, PhD [address] [facility] [address] [place] [address] Nurse Practitioner Radiation Oncology 10/25/18 Christina Louis NP [address] [facility] [address] [place] [address] Nurse Practitioner Medical Oncology 10/25/18 Jessy Adame MD [address] [facility] DEPT OPHTHALMOLOGY, [address] [place] [address] Consulting Physician Retina Ophthalmology 04/15/23 Harpal Carpio MD [address] [place] [address] Neurologist Neurology 04/15/23 Rossana Church DNP [address] [facility] [place] [address] Nurse Practitioner Nurse Practitioner 04/15/23 Zahida Kaplan PA [address] [facility] DIV NEUROLOGY [facility], [facility] [address] [place] [address] Physician Sales Representative Gas Service Physician Sales Representative Gas Service 04/15/23 Fadi Cook PA [address] [facility] DIV NEUROLOGY SLEEP [facility], [facility] [address] [place] [address] Physician Sales Representative Gas Service Sleep Medicine 04/15/23 Harpal De León MD [address] [facility] [address] [place] [address] Solar Field Installation Crew Member Cardiology 04/15/23 Valorie Young MD [address] [facility] [address] [place] [address] Solar Field Installation Crew Member Cardiology 04/15/23 Patricia Martinez MD [address] [facility] RHEUMATOLOGY, [address] [address] Consulting Physician Rheumatology 04/15/23 documented as of this encounter
--- OUTSIDE RECORDS SUMMARY | 2024-04-24 05:48 | XMS_ITS | Encounter Summary ---
Author Organization [facility] Address [address] [place] [address] Phone Care Team Providers Care Wet Pour Supervisor Name Role Phone Erica Rodrigues MD Unavailable Gasper Kaba MD Unavailable Brandy Aguirre CLOCK ASSEMBLER Unavailable [phone] Jo-Ann Morrow PhD Unavailable [phone] Christina Louis COIN ROLLING MACHINE OPERATOR Unavailable [phone] Sylvia Dawson Primary Care Provider [phone] Jessy Adame MD Unavailable Harpal Carpio MD Unavailable Rossana Church DNP Unavailable [phone] Zahida Kaplan Unavailable Fadi Cook Unavailable Harpal De León MD Unavailable Valorie Young MD Unavailable Patricia Martinez MD Unavailable [phone] Encounter Details Date Type Department Care Team (Latest Contact Info) Description 08/24/2023 Orders Only [facility] Scanning, Provider Social History Tobacco Use Types [...] on file Legal Sex Female 3:42 AM TRANSMISSION ENGINEER Gender Identity Not on file Sexual Orientation Not on file 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 on file Not on file Not on file documented as of this encounter Plan of Treatment Not on file documented as of this encounter Procedures Procedure Name Priority Date/Time Associated Diagnosis Comments SCAN - LABS 08/24/2023 documented in this encounter Results * SCAN - LABS (08/24/2023) us Provider Scanning Final Result documented in this encounter Visit Diagnoses Not on filedocumented in this encounter Care Teams Wet Pour Supervisor Relationship Specialty Start Date End Date Sylvia Dawson PA [address] [place] [address] PCP - General Internal Medicine 01/05/20 Erica Rodrigues MD [address] [place] [address] Radiation Oncologist Radiation Oncology 10/25/18 Gasper Kaba MD [address] LL [facility] [address] [place] [address] Surgeon Surgical Oncology 10/25/18 Brandy Aguirre, CARINA [address] [facility] [address] LL [address] [place] [address] Nurse Practitioner Certified Clinical Nurse Specialist 10/25/18 Jo-Ann Morrow, PhD [address] [facility] [address] LL [facility] [address] [place] [address] Nurse Practitioner Radiation Oncology 10/25/18 Christina Louis, COIN ROLLING MACHINE OPERATOR [address] [facility] # LL [facility] [address] [place] [address] Nurse Practitioner Medical Oncology 10/25/18 Jessy Adame MD 4901 [facility]PHTHALMOLOGY, [address] [place] [address] Consulting Physician Retina Ophthalmology 04/15/23 Harpal Carpio MD [address] [place] [address] Neurologist Neurology 04/15/23 Rossana Church DNP [address] [address] Nurse Practitioner Nurse Practitioner 04/15/23 Zahida Kaplan PA [address] [facility] DIV NEUROLOGY [facility] [address] [place] [address] Physician Chief Development Officer Physician Chief Development Officer 04/15/23 Fadi Cook PA [address] DIV NEUROLOGY [facility] [address] [place] [address] Physician Chief Development Officer Sleep Medicine 04/15/23 Harpal De León MD [address] [facility] [address] [place] [address] Slip Dumper Cardiology 04/15/23 Valorie Young MD 4921 [facility] 8B [place] [address] Slip Dumper Cardiology 04/15/23 Patricia Martinez MD [address] [facility] DIV IM RHEUMATOLOGY, [facility] [address] [place] [address] Consulting Physician Rheumatology 04/15/23 documented as of this encounter
--- OUTSIDE RECORDS SUMMARY | 2024-04-24 05:48 | XMS_ITS | Encounter Summary ---
Author Organization [facility] Address [address] [place] [address] Phone Care Team Providers Care Furnace Erector Name Role Phone Erica Rodrigues MD Unavailable Gasper Kaba MD Unavailable Brandy Aguirre MECHANICAL SERVICE SPECIALIST Unavailable Jo-Ann Morrow PhD Unavailable [phone] Christina Louis DEPUTY TREASURER Unavailable [phone] Sylvia Dawson Primary Care Provider [phone] Jessy Adame MD Unavailable Harpal Carpio MD Unavailable [phone] Rossana Church DNP Unavailable Zahida Kaplan Unavailable Faid Cook Unavailable Harpal De León MD Unavailable Valorie Young MD Unavailable Patricia Martinez MD Unavailable Reason for Visit * Reason Comments Punctate epithelial keratopathy of both eyes Encounter Details Date Type Department Care Team (Late st Contact Info) Description 06/15/2023 9:45 AM GOODYEAR WELTER Office Visit [facility] Ophthalmology [facility] Health 6th [place] [id number] Corinna Elmore MD PhD [address] [place] [address] 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 Does not like durezol (blurs vision), switchedto pred daily 06/14: other than few PEE, corneas look great. Decrease to pred every other day x1 month, then discontinue RV 6 weeks YEAR WELTER documented in this encounter Plan of Treatment Not on file documented as of this encounter Visit Diagnoses Diagnosis Punctate epithelial keratopathy of both eyes- Primary documented in this encounter Eye Exam Visual Acuity (Snellen - Linear) Right eye Left eye Dist sc 20/20 -1 20/20 -2 Tonometry (Tonopen, 9:41 AM) Right eye Left eye Pressure 15 15 Pupils Pupils Right eye PERRL Left eye PERRL Visual Grossman Right eye Left eye Full Full Extraocular Movement Right eye Left eye Full, Ortho Full, Ortho Neuro/Psych Oriented x3: Yes Mood/Affect: Normal External Exam Right eye Left eye External Normal Normal Slit Lamp Exam Right eye Left eye Lids/Lashes Normal Normal Conjunctiva/Sclera White and quiet White and gael et Cornea few scattered PEE few scattered PEE Anterior Chamber Deep and quiet Deep and quiet Iris Round and reactive Round and erasmo ctive Lens Posterior chamber in traocular lens, Open posterior capsule Posterior chamber intraocular lens, Open posterior capsule Anterior Vitreous s/p ppV s/p PPV Care Teams Furnace Erector Relationship Specialty Start Date End Date Sylvia Dawson PA [address] [place] [address] PCP - General Internal Medicine 01/05/20 Erica Rodrigues MD [address] [facility] [address] [facility] [address] [place] [address] Radiation Oncologist Radiation Oncology 10/25/18 Gasper Kaba MD [address] [facility] [address] [facility] [address] [place] [address] Surgeon Surgical Oncology 10/25/18 Brandy Aguirre, MECHANICAL SERVICE SPECIALIST [address] [facility] [address] LL [address] [place] [address] Nurse Practitioner Certified Clinical Nurse Specialist 10/25/18 Jo-Ann Morrow, PhD [address] [facility] [address] LL [address] [place] [address] Nurse Practitioner Radiation Oncology 10/25/18 Christina Louis, DEPUTY TREASURER [address] [facility] [address] LL LL [address] [place] [address] Nurse Practitioner Medical Oncology 10/25/18 Jessy Adame MD 4901 [facility]PT OPHTHALMOLOGY, [address] [place] [address] Consulting Physician Retina Ophthalmology 04/15/23 Harpal Carpio MD [address] [place] [address] Neurologist Neurology 04/15/23 Rossana Church DNP [address] [place] [address] Nurse Practitioner Nurse Practitioner 04/15/23 Zahida Kaplan PA [address] DIV NEUROLOGY [address] [address] Physician Superintendent Meters Physician Superintendent Meters 04/15/23 Fadi Cook PA [address] DIV NEUROLOGY SLEEP [address] [address] Physician Superintendent Meters Sleep Medicine 04/15/23 Harpal De León MD [address] [address] Inclusion Special Education Teacher Cardiology 04/15/23 Valorie Young MD 49[address] [facility] 8B [place] [address] Inclusion Special Education Teacher Cardiology 04/15/23 Patricia Martinez MD 49[address] [facility] DIV IM RHEUMATOLOGY, [address] [address] Consulting Physician Rheumatology 04/15/23 documented as of this encounter
--- OUTSIDE RECORDS SUMMARY | 2024-04-24 05:48 | XMS_ITS | Encounter Summary ---
Author Organization [facility] Address [address] [place] [address] Care Team Providers Care Loop Tacker Name Role Phone Erica Rodrigues MD Unavailable Gasper Kaba MD Unavailable Brandy Aguirre INTRANET SPECIALIST Unavailable Jo-Ann Morrow PhD Unavailable Christina Louis TORTS LAW PROFESSOR Unavailable [phone] Sylvia Dawson Primary Care Provider [phone] Jessy Adame MD Unavailable Harpal Carpio MD Unavailable Rossana Church [facility] Unavailable Zahida Kaplan Unavailable Fadi Cook Unavailable Harpal De León MD Unavailable [phone] Valorie Young MD Unavailable Patricia Martinez MD Unavailable Reason for Visit * MRI/CAT/PET Scan (Routine) - Closed Specialty Diagnoses / Procedures Referred By Contac t Referred To Contact Radiology Diagnoses Transient visual loss of both eyes Anisocoria Procedures MRI Brain Incl Orbits W WO Nicol Orellana MD [address] [facility] [address] [place] [address] Phone: tel: fax: [facility] [address] [place] [id number] Referral ID Status Reason Start Date Expiration Date Visits Re quested Visits Authorized [id number] Closed 05/04/2023 07/02/2023 1 4 Encounter Details Date Type Department Care Team (Latest Contact Info) Description 06/08/2023 10:37 AM SALES AND SERVICE CHANGE LEADER - 06/08/2023 11:59 PM SALES AND SERVICE CHANGE LEADER Hospital Encounter [facility] [address] [place] [address] Discharge Disposition: Discharge to home or self [...] on file Legal Sex Female 3:42 AM SALES AND SERVICE CHANGE LEADER Gender Identity Not on file Sexual Orientation Not on file 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 12/29/202 2 aspirin 81 mg enteric coated tablet Take 1 tablet (81 mg total) by mouth daily 90 tablet 3 3 butalbital-acetamin vakbw-fuxwtqhk-jtmg ine (FIORICET WITH CODEINE) 03-308-98-30 mg per capsuleIndications: Nonintractable headache, unspecified chronicity [...] 1 tablet by mouth every morning vit N-M-vcijtz-zinc-lut ein (PreserVision Lutein) 226-90-0.8-5 mg capsuleIndications: Eye [...] TWICE DAILY 360 tablet 4 08/07/19 24 temazepam (RESTORIL) 15 mg capsuleIndications: Insomnia Take 1 capsule (15 mg total) by mouth nightly as needed for sleep 30 capsule 5 4 09/08/19 24 traZODone (DESYREL) 50 mg tablet Take [...] Procedure Name Priority Date/Time Associated Diagnosis Comments MRI BRAIN INCL ORBITS W WO CONTRAST Schedule Routine, Read Routine (OP Routine) 06/08/2023 12:47 PM SALES AND SERVICE CHANGE LEADER Transient visual loss of both eyes Anisocoria documented in this encounter Visit Diagnoses Not on filedocumented in this encounter Administered Medications Inactive Administered Medications - up to 3 most recent administrations Medication Order MAR Action Action Date Dose Rate Site gadoterate meglumine injection 12 mL 12 mL, intravenous, Once in imaging, contrast, Starting on 06/08/23 at 1234, For 1 dose Contrast Given 06/08/2023 12:41 PM SALES AND SERVICE CHANGE LEADER 12 mL documented in this encounter Care Teams Loop Tacker Relationship Specialty Start Date End Date Sylvia Dawson PA [address] [facility] [facility] [address] [place] [address] PCP - General Internal Medicine 01/05/20 Erica Rodrigues MD [address] [facility] [address] [address] Radiation Oncologist Radiation Oncology 10/25/18 Gasper Kaba MD [address] [address] Surgeon Surgical Oncology 10/25/18 Brandy Aguirre, INTRANET SPECIALIST [address] [facility] [address] [address] Nurse Practitioner Certified Clinical Nurse Specialist 10/25/18 Jo-Ann Morrow, PhD [address] [facility] [address] [address] Nurse Practitioner Radiation Oncology 10/25/18 Christina Louis NP [address] [facility] [address] [facility] [address] [place] [address] Nurse Practitioner Medical Oncology 10/25/18 Jessy Adame MD [address] [facility] DEPT OPHTHALMOLOGY, [address] [place] [address] Consulting Physician Retina Ophthalmology 04/15/23 Harpal Carpio MD [address] [place] [address] Neurologist Neurology 04/15/23 Rossana Church DNP [address] [place] [address] Nurse Practitioner Nurse Practitioner 04/15/23 Zahida Kaplan PA [address] DIV NEUROLOGY [facility], [address] [address] Physician Net Technical Architect Physician Net Technical Architect 04/15/23 Fadi Cook PA [address] DIV NEUROLOGY SLEEP MED, [address] [address] Physician Net Technical Architect Sleep Medicine 04/15/23 Harpal De León MD [address] [address] Wire Galvanizer Cardiology 04/15/23 Valorie Young MD 49[address] [facility] 8B [place] [address] Wire Galvanizer Cardiology 04/15/23 Patricia Martinez MD 49[address] [facility] DIV IM RHEUMATOLOGY, [address] [address] Consulting Physician Rheumatology 04/15/23 documented as of this encounter
--- OUTSIDE RECORDS SUMMARY | 2024-04-24 05:48 | XMS_ITS | Encounter Summary ---
Author Organization [facility] Address [address] [place] [address] Phone Care Team Providers Care Senior Sas Developer Name Role Phone Erica Rodrigues MD Unavailable Gasper Kaba MD Unavailable Brandy Aguirre PRINCIPAL CLERK Unavailable Jo-Ann Morrow PhD Unavailable Christina Louis TUB TENDER Unavailable [phone] Sylvia Dawson Primary Care Provider [phone] Jessy Adame MD Unavailable Harpal Carpio MD Unavailable [phone] Rossana Church DNP Unavailable Zahida Kaplan Unavailable Fadi Cook Unavailable Harpal De León MD Unavailable [phone] Valorie Young MD Unavailable Patricia Martinez MD Unavailable Encounter Details Date Type Department Care Team (Late st Contact Info) Description 06/09/2023 Documentation [facility] Ophthalmology [address] [place] [phone] Nicol Darling MD [address] [facility] [address] [place] [address] Social History Tobacco Use Types Packs/Day Years [...] on file Legal Sex Female 3:42 AM YACHT BUILDER Gender Identity Not on file Sexual Orientation Not on file 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 - 06/08/23: MRI brain and orbits w/wo contrast was normal. T BUILDER documented in this encounter Plan of Treatment Not on file documented as of this encounter Visit Diagnoses Not on filedocumented in this encounter Care Teams Senior Sas Developer Relationship Specialty Start Date End Date Sylvia Dawson PA [address] [facility] [address] [place] [address] PCP - General Internal Medicine 01/05/20 Erica Rodrigues MD [address] [place] [address] Radiation Oncologist Radiation Oncology 10/25/18 Gasper Kaba MD [address] [place] [address] Surgeon Surgical Oncology 10/25/18 Brandy Aguirre, PRINCIPAL CLERK [address] [place] [address] Nurse Practitioner Certified Clinical Nurse Specialist 10/25/18 Jo-Ann Morrow, PhD [address] [place] [address] Nurse Practitioner Radiation Oncology 10/25/18 Christina Louis TUB TENDER [address] [place] [address] Nurse Practitioner Medical Oncology 10/25/18 Jessy Adame MD 49[address] [facility] DEPT OPHTHALMOLOGY, [address] [place] [address] Consulting Physician Retina Ophthalmology 04/15/23 Harpal Carpio MD [address] [place] [address] Neurologist Neurology 04/15/23 Rossana Church DNP [address] [facility] [place] [address] Nurse Practitioner Nurse Practitioner 04/15/23 Zahida Kaplan PA [address] [facility] NEUROLOGY GENERAL, [facility] [address] [place] [address] Physician Lap Machine Operator Physician Lap Machine Operator 04/15/23 Fadi Cook PA [address] [facility] [address] NEUROLOGY SLEEP MED, [facility] 600 [place] [address] Physician Lap Machine Operator Sleep Medicine 04/15/23 Harpal De León MD [address] [place] [address] Benefits Technician Cardiology 04/15/23 Valorie Young MD [address] [facility] [address] [place] [address] Benefits Technician Cardiology 04/15/23 Patricia Martinez MD [address] [facility] DIV IM RHEUMATOLOGY, [facility] [address] [place] [address] Consulting Physician Rheumatology 04/15/23 documented as of this encounter
--- OUTSIDE RECORDS SUMMARY | 2024-04-24 05:48 | XMS_ITS | Encounter Summary ---
Author Organization [facility] Healthcare Address [address] [place] [address] Care Team Providers Care Programming Intern Name Role Phone Erica Rodrigues MD Unavailable Gasper Kaba MD Unavailable Brandy Aguirre MAILS SUPERVISOR Unavailable Jo-Ann Morrow PhD Unavailable Christina Louis SLEEP MEDICINE PHYSICIAN Unavailable [phone] Sylvia Dawson Primary Care Provider [phone] Jessy Adame MD Unavailable Harpal Carpio MD Unavailable [phone] Rossana Church [place] Unavailable Zahida Kaplan Unavailable Fadi Cook Unavailable [phone] Harpal De León MD Unavailable Valorie Young MD Unavailable Patricia Martinez MD Unavailable Reason for Referral * MRI/CAT/PET Scan (Routine) - Closed Specialty Diagnoses / Procedures Referred By Contac t Referred To Contact Radiology Diagnoses Transient visual loss of both eyes Anisocoria Procedures MRI Brain Incl Orbits W WO Nicol Orellana MD [address] [facility] [address] [place] [address] Phone: tel: fax: [facility] AMAYA Villagran [phone] Referral ID Status Reason Start Date Expiration Date Visits Re quested Visits Authorized [id number] Closed 05/04/2023 07/02/2023 1 4 MOTIVE PARTS SPECIALIST Reason for Visit * MRI/CAT/PET Scan (Routine) - Closed Specialty Diagnoses / Procedures Referred By Contac t Referred To Contact Radiology Diagnoses Transient visual loss of both eyes Anisocoria Procedures MRI Brain Incl Orbits W WO Contrast Nicol Darling MD [address] [facility] [address] [place] [address] Phone: tel: fax: [facility] AMAYA Villagran [phone] Referral ID Status Reason Start Date Expiration Date Visits Re quested Visits Authorized [id number] Closed 05/04/2023 07/02/2023 1 4 Encounter Details Date Type Department Care Team (Latest Contact Info) Description 05/21/2023 6:41 AM AUTOMOTIVE PARTS SPECIALIST - 05/21/2023 11:59 PM AUTOMOTIVE PARTS SPECIALIST Hospital Encounter [facility] [address] [place] [id number] Transient visual loss of both eyes; Anisocoria [...] on file Legal Sex Female 3:42 AM AUTOMOTIVE PARTS SPECIALIST Gender Identity Not on file Sexual [...] mouth daily 90 tablet 3 3 butalbital-acetamin dsabe-rlflesrk-urnd ine (FIORICET WITH CODEINE) [id number] mg per capsuleIndications: Nonintractable headache, unspecified chronicity [...] 1 tablet by mouth every morning vit D-Y-aqeazw-zinc-lut ein (PreserVision Lutein) 226-90-0.8-5 mg capsuleIndications: Eye [...] Read Routine (OP Routine) 06/08/2023 12:47 PM AUTOMOTIVE PARTS SPECIALIST Transient visual loss of both eyes Anisocoria documented in this encounter Results * MRI Brain Incl Orbits W WO Contrast (06/08/2023 12:47 PM AUTOMOTIVE PARTS SPECIALIST) Anatomical Region Laterality Modality Head and Neck N/A Magnetic Resonan ce 06/08/2023 12:5 6 PM AUTOMOTIVE PARTS SPECIALIST Impressions 06/08/2023 12:56 PM AUTOMOTIVE PARTS SPECIALIST No MRI explanation for the patient's recent symptoms. Electronically signed by: Hudson Villela M.D. Ph.D. Narrative 06/08/2023 12:56 PM AUTOMOTIVE PARTS SPECIALIST EXAMINATION: 1. Magnetic resonance imaging (MRI) of the brain and brainstem without and with contrast 2. Magnetic resonance imaging (MRI) of the orbits without and with contrast HISTORY: 62-year-old woman with transient vision loss in right greater than left thighs and prior anisocoria that has resolved. 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 TECHNIQUE: Multiplanar multi-weighted MRI of the brain and brainstem was performed without and with intravenous contrast using the general brain protocol. Multiplanar multi-weighted MRI of the orbits was performed without and with intravenous contrast using the standard protocol. This included multiplanar high resolution imaging of the orbits and optic nerves. Contrast information: 12 mL Gadoterate Meglumine COMPARISON: Prior CT 05/21/2023 FINDINGS: ORBITS: Both globes are normal in shape and outline without proptosis. The extraocular muscles are normal in size. No intra- or extraconal masses are present. The intraconal fat is normal. The orbital sales are intact. The lacrimal glands are normal in appearance. Meckel's cave appears normal on each side. The carotid artery flow voids are normal. The optic nerves and optic chiasm are normal. The suprasellar cistern is normal. There is no abnormal contrast enhancement. BRAIN: The patient's web device is noted on susceptibility weighted imaging. The scalp and calvarium are normal. The superior sagittal sinus demonstrates normal venous flow. The corpus callosum is normal in shape and signal intensity. The posterior fossa is unremarkable. The pituitary and sella are normal. The brainstem and craniocervical junction are unremarkable. Diffusion weighted images reveal no hyperintensities to suggest acute cerebral infarction. The susceptibility weighted sequences reveal no evidence of acute or chronic hemorrhage. The ventricles are normal in size and position without evidence of hydrocephalus. The paranasal sinuses are normal. The visualized portions of the mastoids are unremarkable. The orbits appear normal. Normal flow voids are demonstrated in the carotid arteries and basilar artery. There is no abnormal contrast enhancement. Procedure Note Hudson Villela MD PhD - 06/08/2023 EXAMINATION: 1. Magnetic resonance imaging (MRI) of the brain and brainstem without and with contrast 2. Magnetic resonance imaging (MRI) of the orbits without and with contrast HISTORY: 62-year-old woman with transient vision loss in right greater than left thighs and prior anisocoria that has resolved. 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 TECHNIQUE: Multiplanar multi-weighted MRI of the brain and brainstem was performed without and with intravenous contrast using the general brain protocol. Multiplanar multi-weighted MRI of the orbits was performed without and with intravenous contrast using the standard protocol. This included multiplanar high resolution imaging of the orbits and optic nerves. Contrast information: 12 mL Gadoterate Meglumine COMPARISON: Prior CT 05/21/2023 FINDINGS: ORBITS: Both globes are normal in shape and outline without proptosis. The extraocular muscles are normal in size. No intra- or extraconal masses are present. The intraconal fat is normal. The orbital sales are intact. The lacrimal glands are normal in appearance. Meckel's cave appears normal on each side. The carotid artery flow voids are normal. The optic nerves and optic chiasm are normal. The suprasellar cistern is normal. There is no abnormal contrast enhancement. BRAIN: The patient's web device is noted on susceptibility weighted imaging. The scalp and calvarium are normal. The superior sagittal sinus demonstrates normal venous flow. The corpus callosum is normal in shape and signal intensity. The posterior fossa is unremarkable. The pituitary and sella are normal. The brainstem and craniocervical junction are unremarkable. Diffusion weighted images reveal no hyperintensities to suggest acute cerebral infarction. The susceptibility weighted sequences reveal no evidence of acute or chronic hemorrhage. The ventricles are normal in size and position without evidence of hydrocephalus. The paranasal sinuses are normal. The visualized portions of the mastoids are unremarkable. The orbits appear normal. Normal flow voids are demonstrated in the carotid arteries and basilar artery. There is no abnormal contrast enhancement. IMPRESSION: No MRI explanation for the patient's recent symptoms. Electronically signed by: Hudson Villela M.D. Ph.D. Nicol Darling MD IMG MRI PROCEDURES Final Re sult documented in this encounter Visit Diagnoses Diagnosis Transient visual loss of both eyes Anisocoria documented in this encounter Care Teams Programming Intern Relationship Specialty Start Date End Date Sylvia Dawson PA [address] [place] [address] PCP - General Internal Medicine 01/05/20 Erica Rodrigues MD [address] [facility] [address] [facility] [address] [place] [address] Radiation Oncologist Radiation Oncology 10/25/18 Gasper Kaba MD [address] [facility] [address] [facility] [address] [place] [address] Surgeon Surgical Oncology 10/25/18 Brandy Aguirre, MAILS SUPERVISOR [address] [facility] [address] [facility] [address] [place] [address] Nurse Practitioner Certified Clinical Nurse Specialist 10/25/18 Jo-Ann Morrow, PhD [address] [facility] [address] [place] [address] Nurse Practitioner Radiation Oncology 10/25/18 Christina Louis SLEEP MEDICINE PHYSICIAN [address] [facility] [address] [place] [address] Nurse Practitioner Medical Oncology 10/25/18 Jessy Adame MD [address] [facility] [place], [address] [place] [address] Consulting Physician Retina Ophthalmology 04/15/23 Harpal Carpio MD [address] [place] [address] Neurologist Neurology 04/15/23 Rossana Church DNP [address] [place] [address] Nurse Practitioner Nurse Practitioner 04/15/23 Zahida Kaplan PA [address] [facility] NEUROLOGY GENERAL, [facility] [address] [place] [address] Physician Electronic Assembler Group Leader Physician Electronic Assembler Group Leader 04/15/23 Fadi Cook PA [address] [facility] DIV NEUROLOGY SLEEP MED, [facility] [address] [place] [address] Physician Electronic Assembler Group Leader Sleep Medicine 04/15/23 Harpal De León MD [address] [facility] [address] [place] [address] Mallet And Die Cutter Cardiology 04/15/23 Valorie Young MD [address] [facility] [address] [place] [address] Mallet And Die Cutter Cardiology 04/15/23 Patricia Martinez MD [address] [facility] [address] DIV IM RHEUMATOLOGY, [address] [address] Consulting Physician Rheumatology 04/15/23 documented as of this encounter
--- OUTSIDE RECORDS SUMMARY | 2024-04-24 05:48 | XMS_ITS | Encounter Summary ---
Author Organization [facility] Healthcare Address [address] [place] [address] Care Team Providers Care Superintendent Stevedoring Name Role Phone Erica Rodrigues MD Unavailable Gasper Kaba MD Unavailable Brandy Aguirre TOP SPOTTER Unavailable Jo-Ann Morrow PhD Unavailable [phone] Christina Louis FLARER Unavailable [phone] Sylvia Dawson Primary Care Provider [phone] Jessy Adame MD Unavailable Harpal Carpio MD Unavailable [phone] Ranjit Rossana Alicia [facility] Unavailable Zahida Kaplan Unavailable Fadi Cook Unavailable [phone] Harpal De León MD Unavailable Valorie Young MD Unavailable Patricia Martinez MD Unavailable Encounter Details Date Type Department Care Team (Late st Contact Info) Description 06/08/2023 Telephone [facility] Medical Group Family Medicine [address] 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 Not on file Not on file Not on file documented as of this encounter Miscellaneous Notes * Telephone Encounter - Nava Thakkar - 06/08/2023 11:48 AM CST Pt was seen at [facility] ER in [place] on 06/05/23 for: Chest Pain See Attached Notes: Staff will call to f/u with pt EN PRINTING SUPERVISOR documented in this encounter Plan of Treatment Not on file documented as of this encounter Visit Diagnoses Not on filedocumented in this encounter Care Teams Superintendent Stevedoring Relationship Specialty Start Date End Date Sylvia Dawson PA [address] [place] [address] PCP - General Internal Medicine 01/05/20 Erica Rodrigues MD [address] [place] [address] Radiation Oncologist Radiation Oncology 10/25/18 Gasper Kaba MD [address] [place] [address] Surgeon Surgical Oncology 10/25/18 Brandy Aguirre, TOP SPOTTER [address] [place] [address] Nurse Practitioner Certified Clinical Nurse Specialist 10/25/18 Jo-Ann Morrow, PhD [address] [place] [address] Nurse Practitioner Radiation Oncology 10/25/18 Christina Louis FLARER [address] [place] [address] Nurse Practitioner Medical Oncology 10/25/18 Jessy Adame MD [address] [facility] OPHTHALMOLOGY, [address] [place] [address] Consulting Physician Retina Ophthalmology 04/15/23 Harpal Carpio MD [address] [place] [address] Neurologist Neurology 04/15/23 Rossana Church DNP [address] [facility] [place] [address] Nurse Practitioner Nurse Practitioner 04/15/23 Zahida Kaplan PA [address] DIV NEUROLOGY GENERAL, [facility] [address] [place] [address] Physician Family Services Assistant Physician Family Services Assistant 04/15/23 Fadi Cook PA [address] [facility] [facility] [address] DIV NEUROLOGY SLEEP MED, [facility] [address] [place] [address] Physician Family Services Assistant Sleep Medicine 04/15/23 Harpal De León MD [address] [place] [address] Face Man Cardiology 04/15/23 Valorie Young MD [address] [facility] [address] [place] [address] Face Man Cardiology 04/15/23 Patricia Martinez MD [address] [facility] [facility] [facility] [address] DIV IM RHEUMATOLOGY, [facility] [address] [place] [address] Consulting Physician Rheumatology 04/15/23 documented as of this encounter
--- OUTSIDE RECORDS SUMMARY | 2024-04-24 05:48 | XMS_ITS | Encounter Summary ---
Author Organization [facility] Healthcare Address [address] [place] [address] Care Team Providers Care Wedger And Gluer Name Role Phone Erica Rodrigues MD Unavailable Gasper Kaba MD Unavailable Brandy Aguirre Unavailable [phone] Jo-Ann Morrow PhD Unavailable [phone] Christina Louis SANITATION TRUCK DRIVER Unavailable [phone] Sylvia Dawson Primary Care Provider [phone] Jessy Adame MD Unavailable Harpal Carpio MD Unavailable Rossana Church [facility] Unavailable Zahida Kaplan Unavailable Fadi Cook Unavailable Harpal De León MD Unavailable Valorie Young MD Unavailable [phone] Patricia Martinez MD Unavailable Reason for Visit * Reason Comments Well Women Visit Encounter Details Date Type Department Care Team (Late st Contact Info) Description 06/16/2023 10:30 AM WEDDING DECORATOR Office Visit [facility] Obstetrical Gynecology [address] [place] [address] [place] [phone] Ema Keyes MD [address] [place] [id number] Well woman exam (Primary Dx) Social History Tobacco Use Types [...] on file Legal Sex Female 3:42 AM WEDDING DECORATOR Gender Identity Not on file Sexual Orientation Not on file 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 Not on file Not on file Not on file documented as of this encounter Last Filed Vital Signs Vital Sign Reading Time Taken Comments Blood Pressure 124/80 06/16/2023 10:33 AM WEDDING DECORATOR Pulse - - Temperature - - Respiratory Rate - - Oxygen Saturation - - Inhaled Oxygen Concentration - - Weight 66.2 kg (146 lb) 06/16/2023 10:33 AM WEDDING DECORATOR Height 160 cm (5' 3 ) 06/16/2023 10:33 AM WEDDING DECORATOR Body Mass Index 25.86 06/16/2023 10:33 AM WEDDING DECORATOR documented in this encounter Progress Notes * Ema Keyes MD - 06/16/2023 10:30 AM CST Images from the original note were not included. Well Woman Exam Chief Complaint Patient presents with [facility] Women Visit Subjective: Yesika Manzanares is a 62 y.o. who presents for a well woman exam. Previous patient of mine, last seen 10/2020. She has had several medical issues arise over the last year including worsening of a brain aneurysmrequiring surgical intervention, carotid dissection requiring stenting, and sleep apnea work up recently requiring implantable device. She is overall doing okay from this standpoint. No significant SUPERVISOR MOTORCYCLE REPAIR SHOP concerns today. Some vaginal dryness and low libido. Personal history of breast cancer--Stage I ER/AL pos invasive ductal carcinoma. S/p right lumpectomy/ radiation/chemo. Attempted Arimidex but did not tolerate secondary to severe arthritis and thus this was discontinued. She is currently on MTX, Plaquenil, and sulfasalazine. Menstrual History: No LMP recorded (lmp unknown). Patient is postmenopausal. Sexual History: OB History 3 Para 3 Term 3 AB Living 3 SAB IAB Ectopic Multiple Live Births 3 # Outcome Date GA Labor/2nd Weight Sex Delivery Anes PTL Lv A1 A5 1 Term Living 2 Term Living 3 Term Living Obstetric Comments Dish Person history: 3 para 3, 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 No history fertility medications. She used oral contraceptives in the past. One does progesterone 08/2014. She experienced menopause approximately age 53. Past Medical History: Diagnosis Date Autoimmune disease (CMS/HCC) ([facility]) Benign left breast lump 06/2002 biopsy showed fibrosis and hyperplasia Brain aneurysm Followed by Dr. Chaudhari: Every 3 years Breast cancer ([facility]) 2015 Invasive ductal carcinoma Cataract CME (cystoid macular edema), bilateral Depression Elevated cholesterol History of chemotherapy 2015 Breast cancer History of radiation therapy 2014 Right breast Hypertension Migraine Motion sickness sometimes on [place] Obstructive sleep apnea 06/19/2022 RA (rheumatoid arthritis) ([facility]) Past Surgical History: Procedure Laterality Date ANGIO SELECTIVE CAROTID DENTAL APPLIANCE REPAIRER RIGHT Right 01/28/2023 ANGIO SELECTIVE INTERNAL CAROTID LEFT Left 03/12/2022 BREAST BIOPSY Left 2002 benign BREAST LUMPECTOMY Right 2014 Invasive ductal carcinoma CARDIAC PACEMAKER PLACEMENT 03/2023 CEREBRAL ANEURYSM REPAIR 06/16/2022 COLONOSCOPY 03/06/2020 CYST REMOVAL 1998 thyroid ENDOMETRIAL ABLATION 02/2007 EYE SURGERY Bilateral 2021 cataract HYSTEROSCOPY PORT PLACEMENT CHEST >5 YEARS N/A 01/17/2015 PORT REMOVAL N/A 04/10/2015 RHINOPLASTY 1985 THYROIDECTOMY, PARTIAL Left 1997 Dr. Demetris Aguilar TONSILLECTOMY 1983 TUBAL LIGATION 02/2007 VITRECTOMY Right 09/23/2022 for CME Current Outpatient Medications: acetaminophen (TYLENOL) 325 mg [...] MOUTH DAILY, Disp: 90 tablet, Rfl: 1 jipwmirapt-hobslhtumjqbj-ppsaepoi-codeine (FIORICET WITH CODEINE) 56-286-12-30 mg per capsule, Take1 capsule by mouth every 6 (six) hours as needed for headaches, Disp: 10 capsule, Rfl: 0 eszopiclone (LUNESTA) 2 mg tablet, Take 1 tablet (2 mg total) by mouth daily Take immediately before bedtime, Disp: 30 tablet, Rfl: 5 ezetimibe (ZETIA) 10 mg tablet, Take 1 tablet (10 mg total) by mouth daily, Disp: 90 tablet, Rfl: 2 famotidine-Ca carb-mag hydrox (PEPCID COMPLETE) 10-800-165 mg chewable tablet, Take 1 tablet by mouth daily as needed for heartburn, Disp: , Rfl: FLUoxetine (PROzac) 10 mg tablet/capsule, Take 1 tablet/capsule (10 mg total) by mouth daily, Disp:90 capsule, Rfl: 0 folic acid (FOLVITE) 1 mg tablet, Take 2 tablets (2,000 mcg total) by mouth daily (Patient taking differently: Take 2 tablets (2,000 mcg total) by mouth every morning), Disp: 180 tablet, Rfl: 3 gabapentin (NEURONTIN) 100 mg capsule, Take 1 capsule (100 mg total) by mouth 2 (two) times a day, Disp: 60 capsule, Rfl: 1 hydroCHLOROthiazide (HYDRODIURIL) 12.5 mg tablet, TAKE 1 TABLET(12.5 MG) BY MOUTH DAILY, Disp: 90 tablet, Rfl: 1 lisinopriL (PRINIVIL,ZESTRIL) 40 mg tablet, Take 1 tablet (40 mg total) by mouth daily (Patient taking differently: Take 1 tablet (40 mg total) by mouth every morning), Disp: 90 tablet, Rfl: 4 magnesium gluconate [...] Nurtec ODT tablet,disintegrating, , Disp: , Rfl: sulfaSALAzine EN (AZULFIDINE EN) 500 mg EC tablet, TAKE 2 TABLETS BY MOUTH TWICE DAILY, Disp: 360 tablet, Rfl: 0 temazepam (RESTORIL) 15 mg capsule, Take 1 capsule (15 mg total) by mouth nightly as needed for sleep, Disp: 30 capsule, Rfl: 5 traZODone (DESYREL) 50 mg tablet, Take 1 tablet (50 mg total) by mouth nightly as needed for sleep,Disp: 30 tablet, Rfl: 5 valACYclovir (VALTREX) 1 gram tablet, Take 2 tabs (2000 mg) 2 times a days for 1 day., Disp: 30 tablet, Rfl: 1 vit F-T-rterac-zinc-lutein (PreserVision Lutein) 226-90-0.8-5 mg capsule, Take 1 tablet by mouth 2 (two) times a day, Disp: , Rfl: oxyCODONE (ROXICODONE) 5 mg immediate release tablet, Take 1 tablet (5 mg total) by mouth every 4 (four) hours as needed for pain (Patient not taking: Reported on 06/16/2023), Disp: 10 tablet, Rfl: 0 Allergies Allergen Reactions Adhesive Hives Paper tape OK Cyclizine Other (See comments) and Hallucinations Marezine about 1982 Reaction: Urinary retention Family History Problem Relation Age of Onset [...] or 2 Frequency of Binge Drinking: Never Objective: BP 124/80 Ht 160 cm (5' 3 ) Wt 146 lb (66.2 kg) LMP (LMP Unknown) BMI 25.86 kg/m?? Physical Exam Constitutional: General: She is not in acute distress. Appearance: She is well-developed. Pulmonary: Effort: Pulmonary effort is normal. Chest: Breasts: Breasts are symmetrical. Right: No mass, skin change or tenderness. Left: No mass, skin change or tenderness. Abdominal: Palpations: Abdomen is soft. There is no mass. Tenderness: There is no abdominal tenderness. Genitourinary: Vagina normal and uterus normal. There is no rash or lesion on the right labia. Right labia: normal. There is no rash or lesion on the left labia. Left Labia: normal. No vaginal discharge or erythema. Right adnexa: normal. Right adnexa does not display mass and does not display tenderness. Left adnexa: normal. Left adnexa does not display mass and does not display tenderness. Cervix does not display motion tenderness, lesion or friability. Uterus is not enlarged or tender. Musculoskeletal: General: Normal range of motion. Lymphadenopathy: Upper Body: Right upper body: No axillary adenopathy. Left upper body: No axillary adenopathy. Neurological: Mental Status: She is alert and oriented to person, place, and time. Psychiatric: Mood and Affect: Mood is not anxious or depressed. Assessment and Plan: Yesika Manzanares is a 62 y.o. female who presents for a well woman exam. 1. Maintenance: --pap performed, last pap smear 2018 --neg CBE, last mammogram 06/08/2023 BiRads 2 (personal history of breast CA, following with Dr. Kaba (Aguirre). --discussed diet/exercise --bone health: Ca/Vit D reviewed, weight bearing --colonoscopy Feb 2020 normal. --discussed vaginal moisturizers and lubricants (hyaluronic acid based) and possible interventions for libido. Ema Keyes MD 06/16/2023 ING DECORATOR documented in this encounter Plan of Treatment Not on file documented as of this encounter Results * High Risk HPV DNA Detection with Genotyping (Molecular component) (06/16/2023 11:06 AM WEDDING DECORATOR) HPV HR 16 Not Detected Not Detected KATHY Comment:Testing performed by : [facility], [address] [place]., [address] HPV HR 18 Not Detected Not Detected KATHY Comment:Testing performed by : [facility], [address] [place]., [address] HPV HR Non 16/18 Not Detected Not Detected KATHY Comment: Interpretive Data Nucleic acid amplification for detection of high-risk Human Papilloma virus (HPV) is performed by the Neo Lino 6800 HPV test. ??This assay specifically detects HPV-16 and HPV-18 genotypes. ??The following HPV genotypes are detected as high-risk HPV: ?? HPV-31, 33, 35, ,39, 45, 51, 52, 56, 58, 59, 66, and 68. ??This assay has been approved by the [place] States Food and Drug Administration for detection of HPV in cervical specimens collected by a physician using an endocervical brush/spatula or cervical broom and placed in the ThinPrep Pap Test PreservCyt collection containers. ??The performance characteristics of this test have been verified by the [facility] Molecular Infectious Disease laboratory. Correlate with separately reported cytology results, as applicable. Interpretive data last revised 22 Testing performed by: [facility], [address] [place]., [address] Endocervical 06/16/2023 11:0 6 AM WEDDING DECORATOR 06/16/2023 7:57 PM WEDDING DECORATOR Narrative KATHY - 06/17/2023 1:53 AM WEDDING DECORATOR Clinical history and diagnosis->screening Testing type->Screening Last menstrual period (date if known)->postmenopausal Ema Keyes MD LAB BODY FLUIDS AND STOOL S ORDERABLES Final Result KATHY [address] Department [place] [address] * Pap and High Risk HPV and Genotyping (Cytology Component) (06/16/2023 11:06 AM WEDDING DECORATOR) Thin prep (Pap test) 06/16/2023 11:06 AM WEDDING DECORATOR 06/17/2023 10:27 AM WEDDING DECORATOR Narrative PATHOLOGY [facility] - 06/22/2023 10:16 AM CDT EPIC results best viewed via link to PDF [facility] Yesy Lord Laboratory of Surgical Pathology [place], [place] [id number] Note to Patients: This report may contain [...] Gender: ??F : ??1960 (Age: 62) Address: ??[address] [place] [address] ??[id number] [facility] #: ??[id number] Service: ??DEFAULT Location: ?? Patient Type: ??[facility] SPECIMEN Taken: ??06/16/2023 Received: ??06/17/2023 [...] this test have been verified by the [facility] Molecular Infectious Disease laboratory. Correlate with reported cytology results, as applicable. Interpretive data last revised 22 [facility]/06/22/2023 10:16 JESSIKA Batista(ASCP) Report Electronically Reviewed and Signed Out By JESSIKA Batista(ASCP) 06/22/2023 10:16:29 Cervicovaginal Cytology (Pap Test) Disclaimer: The Pap test is a screening test used to detect cervical cancer and its precursors; it is not a diagnostic procedure. False negative and false positive results do occur. Pap test results should be interpreted in the context of pertinent clinical information and biopsy results as indicated. CMS Clinical Laboratory Improvement Amendments (CLIA) mandate that cytologic and histologic results be correlated for laboratory quality control assessor & improvement standards. ??FOR ALL HIGH-GRADE CASES [...] determined by the Surgical Pathology Department at [facility] as part of an ongoing director of quality control program and in compliance with federally mandated [...] determined by the Surgical Pathology Department of [facility]. ??It has not been cleared or approved by the U. S. Food and Drug Administration. Ema Keyes MD LAB CYTOLOGY ORDERABLES F inal Result PATHOLOGY [facility] documented in this encounter Visit Diagnoses Diagnosis Well woman exam- Primary Routine general medical examination at a health care facility Well woman exam Routine general medical examination at a health care facility documented in this encounter Care Teams Wedger And Gluer Relationship Specialty Start Date End Date Sylvia Dawson PA [address] [facility] [address] [place] [address] PCP - General Internal Medicine 01/05/20 Erica Rodrigues MD [address] [place] [address] # LL LL [address] [place] [address] Radiation Oncologist Radiation Oncology 10/25/18 Gasper Kaba MD [address] # LL LL [address] [place] [address] Surgeon Surgical Oncology 10/25/18 Brandy Aguirre, DENTAL APPLIANCE REPAIRER [address] [facility] [address] # LL LL [address] [place] [address] Nurse Practitioner Certified Clinical Nurse Specialist 10/25/18 Jo-Ann Morrow, PhD [address] [facility] [address] # LL LL [address] [place] [address] Nurse Practitioner Radiation Oncology 10/25/18 Christina Louis, SANITATION TRUCK DRIVER [address] [facility] [address] # LL [facility] [address] [place] [address] Nurse Practitioner Medical Oncology 10/25/18 Jessy Adame MD [address] [facility] DEPT OPHTHALMOLOGY, [address] [place] [address] Consulting Physician Retina Ophthalmology 04/15/23 Harpal Carpio MD [address] [place] [address] Neurologist Neurology 04/15/23 Rossana Church DNP [address] [facility] [place] [address] Nurse Practitioner Nurse Practitioner 04/15/23 Zahida Kaplan PA [address] [facility] NEUROLOGY GENERAL, [facility] [address] [place] [address] Physician Websphere Portal Developer Physician Websphere Portal Developer 04/15/23 Fadi Cook PA [address] [facility] NEUROLOGY SLEEP [facility], [facility] [address] [place] [address] Physician Websphere Portal Developer Sleep Medicine 04/15/23 Harpal De León MD [address] [facility] [address] [place] [address] Water Pump Servicer Cardiology 04/15/23 Valorie Young MD [address] [facility] [address] [facility] [place] [address] Water Pump Servicer Cardiology 04/15/23 Patricia Martinez MD [address] [facility] RHEUMATOLOGY, [address] [address] Consulting Physician Rheumatology 04/15/23 documented as of this encounter
--- OUTSIDE RECORDS SUMMARY | 2024-04-24 05:48 | XMS_ITS | Encounter Summary ---
Author Organization [facility] Healthcare Address [address] [place] [address] Care Team Providers Care Prosthetics Technician Name Role Phone Erica Rodrigues MD Unavailable Gasper Kaba MD Unavailable Brandy Aguirre Unavailable Jo-Ann Morrow PhD Unavailable Christina Louis MOTION PICTURE DIRECTOR Unavailable [phone] Sylvia Dawson Primary Care Provider [phone] Jessy Adame MD Unavailable Harpal Carpio MD Unavailable Rossana Church [facility] Unavailable Zahida Kaplan Unavailable Fadi Cook Unavailable Harpal De León MD Unavailable Valorie Young MD Unavailable Patricia Martinez MD Unavailable [phone] Reason for Visit * Diagnostic Imaging (Routine) - Pending Review Specialty Diagnoses / Procedures Referred By Contac t Referred To Contact Diagnoses Screening mammogram, encounter for Procedures Screening Mammogram Bilateral W Marcelo Screening Mammogram Bilateral W Marcelo Sylvia Dawson PA [address] [place] [address] Phone: tel: fax: [address] [phone] Referral ID Status Reason Start Date Expiration Date V isits Requested Visits Authorized [id number] Pending Review 04/30/2023 05/29/2024 1 1 Encounter Details Date Type Department Care Team (Latest Contact Info) Description 06/08/2023 1:33 PM COLLECTION COORDINATOR - 06/08/2023 11:59 PM COLLECTION COORDINATOR Hospital Encounter [facility] Breast Imaging [address] [place] [phone] Screening mammogram, encounter for Discharge Disposition: Discharge to home or self [...] on file Legal Sex Female 3:42 AM COLLECTION COORDINATOR Gender Identity Not on file Sexual Orientation Not on file 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 Not on file [...] mouth daily 90 tablet 3 3 butalbital-acetamin zmyya-unwwkdyy-zfuo ine (FIORICET WITH CODEINE) 39-550-94-30 mg per capsuleIndications: Nonintractable headache, unspecified chronicity [...] 1 tablet by mouth every morning vit X-W-dcwtmu-zinc-lut ein (PreserVision Lutein) 226-90-0.8-5 mg capsuleIndications: Eye [...] or self care documented in this encounter Miscellaneous Notes * Result Encounter Note - Sheeba Tobias MA - 06/08/2023 5:54 PM COLLECTION COORDINATOR Adv pt of normal mammogram and to repeat in 1 yr, pt had no further questions ECTION COORDINATOR * Result Encounter Note - Sylvia Dawson PA - 06/08/2023 5:03 PM COLLECTION COORDINATOR Let pt know her mammogram is normal and will plan to repeat in 1 year. ECTION COORDINATOR documented in this encounter Plan of Treatment Not on file documented as of this encounter Procedures Procedure Name Priority Date/Time Associated Diagnosis Comments SCREENING MAMMOGRAM BILATERAL W MARCELO Schedule Routine, Read Routine (OP Routine) 06/08/2023 1:56 PM COLLECTION COORDINATOR Screening mammogram, encounter for documented in this encounter Results * Screening Mammogram Bilateral W Marcelo (06/08/2023 1:56 PM COLLECTION COORDINATOR) Anatomical Region Laterality Modality Breast Bilateral Mammography Impressions 06/08/2023 2:35 PM COLLECTION COORDINATOR BI-RADS?? ATLAS category (overall): 2 - Benign There is no mammographic evidence of malignancy. A 1 year screening mammogram is recommended. The patient has been or will be contacted. We recommend annual screening mammography for women at average risk of breast cancer beginning at age 40, based on guidelines of the [employer] (ACR Practice Parameter for the Performance of Screening and Diagnostic Mammography) and [employer] College of Obstetricians and Gynecologists. For women with and elevated risk of breast cancer, please refer to the ACR Practice Parameter for specific screening recommendations. The patient will be entered into a reminder system with a target due date of 1 year for her next screening exam. Narrative 06/08/2023 2:35 PM COLLECTION COORDINATOR Screening Mammogram Bilateral W Marcelo: 06/08/23 The [...] Sylvia JONES IMG MAMMO PROCEDURES Final Result documented in this encounter Visit Diagnoses Diagnosis Screening mammogram, encounter for documented in this encounter Care Teams Prosthetics Technician Relationship Specialty Start Date End Date Sylvia Dawson PA [address] [address] [place] [address] PCP - General Internal Medicine 01/05/20 Erica Rodrigues MD [address] # LL LL [address] [place] [address] Radiation Oncologist Radiation Oncology 10/25/18 Gasper Kaba MD [address] # LL [facility] [address] [place] [address] Surgeon Surgical Oncology 10/25/18 Brandy Aguirre, CARINA [address] # [address] [place] [address] Nurse Practitioner Certified Clinical Nurse Specialist 10/25/18 Jo-Ann Morrow, PhD [address] # [address] [place] [address] Nurse Practitioner Radiation Oncology 10/25/18 Christina Louis MOTION PICTURE DIRECTOR [address] [place] [address] Nurse Practitioner Medical Oncology 10/25/18 Jessy Adame MD [address] DEPT OPHTHALMOLOGY, [address] [place] [address] Consulting Physician Retina Ophthalmology 04/15/23 Harpal Carpio MD [address] [place] [address] Neurologist Neurology 04/15/23 Rossana Church DNP [address] [facility] [place] [address] Nurse Practitioner Nurse Practitioner 04/15/23 Zahida Kaplan PA [address] NEUROLOGY [facility], [address] [address] Physician Crayon Painter Physician Crayon Painter 04/15/23 Fadi Cook PA [address] [facility] DIV NEUROLOGY SLEEP [facility], [address] [address] Physician Crayon Painter Sleep Medicine 04/15/23 Harpal De León MD [address] [address] Master Craftsman Cardiology 04/15/23 Valorie Young MD [address] [facility] [address] [place] [address] Master Craftsman Cardiology 04/15/23 Patricia Martinez MD [address] [facility] DIV IM RHEUMATOLOGY, [address] [address] Consulting Physician Rheumatology 04/15/23 documented as of this encounter
--- OUTSIDE RECORDS SUMMARY | 2024-04-24 05:48 | XMS_ITS | Encounter Summary ---
Author Organization [facility] Healthcare Address [address] [place] [address] Care Team Providers Care Lubricating Specialist Name Role Phone Erica Rodrigues MD Unavailable Gasper Kaba MD Unavailable Brandy Aguirre Unavailable Jo-Ann Morrow PhD Unavailable [phone] Christina Louis TURBINE OPERATOR Unavailable Sylvia Dawson Primary Care Provider [phone] Jessy Adame MD Unavailable Harpal Carpio MD Unavailable Rossana Church [facility] Unavailable Zahida Kaplan Unavailable Fadi Cook Unavailable Harpal De León MD Unavailable Valorie Young MD Unavailable Patricia Martinez MD Unavailable Reason for Visit * Reason Comments Follow-up 1 mo f/u. 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 Not on file Not on file documented as of this encounter Last Filed Vital Signs Vital Sign Reading Time Taken Comments Blood Pressure 120/70 06/11/2023 11:13 AM FRENCH FOLDING MACHINE OPERATOR Pulse 59 06/11/2023 11:13 AM FRENCH FOLDING MACHINE OPERATOR Temperature - - Respiratory Rate - - Oxygen Saturation 99% 06/11/2023 11:13 AM FRENCH FOLDING MACHINE OPERATOR Inhaled Oxygen Concentration - - Weight 67.2 kg (148 lb 1.6 oz) 06/11/2023 11:13 AM FRENCH FOLDING MACHINE OPERATOR Height 160 cm (5' 3 ) 06/11/2023 11:13 AM FRENCH FOLDING MACHINE OPERATOR Body Mass Index 26.23 06/11/2023 11:13 AM FRENCH FOLDING MACHINE OPERATOR documented in this encounter Progress Notes * Harpal De León MD - 06/11/2023 11:00 AM [facility] FOLLOW UP 06/11/2023 Yesika Denney is a 62 y.o. female who presents for follow up of atrial tachycardia. This is a patient that was referred for somewhat unusual automatic ectopic atrial tachycardia which was noticedHolter monitor after she was seen by the PCP reporting palpitations. She was placed on a beta-dylan, had the patient on a moderate dose of metoprolol. Her PCP transitioned her to Atenolol between appointment and today. 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 In follow-up according to the hospital records for the most part she is in sinus rhythm and/or sinus bradycardia She presents to the office today for short interval follow-up apparently she was in the emergency room at [facility] last week with some chest pain. She says that she had some pain that started on with some central chest tightness that then progressed into the sense of pain. When the pain was there was worse with deep breathing. The following day on Thursday she went to the emergency room had a negative ER evaluation in the way of her cardiac status. Her troponins were negative and she hada CT scan of the chest was negative for PE. The symptoms have since resolved and she came in today to be seen because of this incident. REVIEW OF SYSTEMS General ROS: negative for - chills, fatigue, fever, malaise, night sweats, weight gain or weight loss Psychological ROS: negative for - anxiety, depression, memory difficulties or sleep disturbances Ophthalmic ROS: negative for - blurry vision, decreased vision, loss of vision or scotomata ENT ROS: negative for - epistaxis, headaches, hearing change, nasal congestion, nasal discharge, sore throat, vertigo or visual changes Hematological and Lymphatic ROS: negative for - bleeding problems, blood clots, bruising, fatigue or weight loss Endocrine ROS: negative for - hot flashes, palpitations, polydipsia/polyuria or unexpected weight changes Respiratory ROS: negative for - cough, hemoptysis, orthopnea, shortness of breath, tachypnea or wheezing Cardiovascular ROS: negative for - chest pain, dyspnea on exertion, edema, irregular heartbeat, loss of consciousness, murmur, orthopnea, palpitations, paroxysmal nocturnal dyspnea, rapid heart rate or shortness of breath Gastrointestinal ROS: negative for - abdominal pain, appetite loss, blood in stools, constipation, diarrhea, gas/bloating, heartburn, hematemesis, melena or nausea/vomiting Genito-Urinary ROS: negative for - dysuria, or hematuria Musculoskeletal ROS: negative for - joint pain, muscle pain or muscular weakness Dermatological ROS: negative for dry skin, eczema, pruritus and rash HOME MEDICATIONS Current Outpatient Medications: acetaminophen (TYLENOL) 325 [...] MOUTH DAILY, Disp: 90 tablet, Rfl: 1 wvrmlrubfv-edtxyeqamzsvn-vysaaqpb-codeine (FIORICET WITH CODEINE) 45-501-91-30 mg per capsule, Take1 capsule by mouth [...] Nurtec ODT tablet,disintegrating, , Disp: , Rfl: oxyCODONE (ROXICODONE) 5 mg immediate release tablet, Take 1 tablet (5 mg total) by mouth every 4 (four) hours as needed for pain, Disp: 10 tablet, Rfl: 0 sulfaSALAzine EN (AZULFIDINE EN) 500 mg [...] sleep,Disp: 30 tablet, Rfl: 5 valACYclovir (VALTREX) 500 mg tablet, TAKE 1 TABLET(500 MG) BY MOUTH DAILY, Disp: 90 tablet, Rfl: 2 vit P-H-bzlacm-zinc-lutein (PreserVision Lutein) 226-90-0.8-5 mg capsule, Take 1 tablet by mouth 2 (two) times a day, Disp: , Rfl: LABS AND OTHER DIAGNOSTIC TESTS Lab Results Component Value Date CHOL 198 02/24/2023 CHOL 258 (H) 08/06/2022 CHOL 336 (H) 03/25/2022 Lab Results Component Value Date HDL 92 02/24/2023 HDL 104 03/25/2022 HDL 96 08/30/2021 Lab Results Component Value Date LDLCALC 91 02/24/2023 LDLCALC 218 (H) 03/25/2022 LDLCALC 171 (H) 08/30/2021 Lab Results Component Value Date TRIG 88 02/24/2023 TRIG 76 08/06/2022 TRIG 91 03/25/2022 No results found for: CHOLHDL Lab Results Component Value Date WBC 4.2 02/24/2023 HGB 12.8 02/24/2023 HCT 38.5 02/24/2023 MCV 99 (H) 02/24/2023 PLT 239 08/06/2022 No lab exists for component: LABALBU PHYSICAL EXAM Vitals BP 120/70 (BP Location: Left arm, Patient Position: Sitting) Pulse 59 Ht 160 cm (5' 3 ) Wt 67.2 kg (148 lb 1.6 oz) LMP (LMP Unknown) SpO2 99% BMI 26.23 kg/m?? Physical Examination: General appearance - alert, well appearing, and in no distress, oriented to person, place, and time and acyanotic, in no respiratory distress Mental status - affect appropriate to mood Eyes - extraocular eye movements intact, sclera anicteric, no pallor Ears - external earsappear normal, hearing grossly normal bilaterally Nose - normal and patent, no erythema or discharge Mouth - mucous membranes moist, pharynx appears normal, dental hygiene good and tongue normal Neck - supple, no significant neck masses, carotids upstroke normal bilaterally, no bruits, no JVD Chest - clear to auscultation, no wheezes, rales or rhonchi, symmetric air entry, no tachypnea, retractions or cyanosis Heart - normal rate, regular rhythm, normal S1, S2, no murmurs, rubs, clicks or gallops, no JVD Abdomen - soft, nontender, nondistended, no masses or organomegaly bowel sounds normal Neurological - alert, oriented, normal speech, no focal findings or movement disorder noted Musculoskeletal - no joint tenderness, deformity or swelling, no muscular tenderness noted Extremities - peripheral pulses normal, no pedal edema, no clubbing or cyanosis Skin - normal coloration and turgor, no rashes, no suspicious skin lesions noted ASSESSMENT Ectopic atrial tachycardia Chaotic blood pressure following recent bilateral carotid artery and intervention in a patient who also has an anterior communicating artery aneurysm that will be treated with some sort of intervention in the foreseeable future. PLAN/RECOMMENDATIONS Cardiovascular status is stable. She continues to have evidence of ectopic atrial rhythm at times but no other cardiovascular problems. Her symptoms of last week are highly suggestive of chest wall discomfort, possibly costochondritis given her history of rheumatoid arthritis but I do not believe we need to initiate an ischemia workup given the fact that she had negative troponins in the face of more than 24 hours of pain Harpal De León MD CH FOLDING MACHINE OPERATOR documented in this encounter Plan of Treatment Not on file documented as of this encounter Visit Diagnoses Diagnosis Tachycardia- Primary Unspecified tachycardia documented in this encounter Care Teams Lubricating Specialist Relationship Specialty Start Date End Date Sylvia Dawson PA [address] [place] [address] PCP - General Internal Medicine 01/05/20 Erica Rodrigues MD [address] [facility] [address] [place] [address] Radiation Oncologist Radiation Oncology 10/25/18 Gasper Kaba MD [address] [facility] [address] [place] [address] Surgeon Surgical Oncology 10/25/18 Brandy Aguirre CNS [address] [facility] [address] [place] [address] Nurse Practitioner Certified Clinical Nurse Specialist 10/25/18 Jo-Ann Morrow, PhD [address] [facility] [address] [place] [address] Nurse Practitioner Radiation Oncology 10/25/18 Christina Louis, JENNI [address] [facility] [address] [place] [address] Nurse Practitioner Medical Oncology 10/25/18 Jessy Adame MD [address] [facility] DEPT OPHTHALMOLOGY, [address] [place] [address] Consulting Physician Retina Ophthalmology 04/15/23 Harpal Carpio MD [address] [place] [address] Neurologist Neurology 04/15/23 Rossana Church DNP [address] [place] [address] Nurse Practitioner Nurse Practitioner 04/15/23 Zahida Kaplan PA [address] [facility] NEUROLOGY GENERAL, [facility] [address] [place] [address] Physician Fermentation Operator Physician Fermentation Operator 04/15/23 Fadi Cook PA [address] [facility] DIV NEUROLOGY SLEEP MED, [facility] [address] [place] [address] Physician Fermentation Operator Sleep Medicine 04/15/23 Harpal De León MD [address] [place] [address] Rn Bone Marrow Transplant Cardiology 04/15/23 Valorie Young MD [address] [place] [address] Rn Bone Marrow Transplant Cardiology 04/15/23 Patricia Martinez MD [address] [facility] DIV RHEUMATOLOGY, [address] [address] Consulting Physician Rheumatology 04/15/23 documented as of this encounter
--- OUTSIDE RECORDS SUMMARY | 2024-04-24 05:48 | XMS_ITS | Encounter Summary ---
Author Organization [facility] Address [address] [place] [address] Phone Care Team Providers Care Housekeeping Supervisor Hotel Name Role Phone Erica Rodrigues MD Unavailable Gasper Kaba MD Unavailable Brandy Aguirre HOME CARE COORDINATOR Unavailable Jo-Ann Morrow PhD Unavailable Christina Louis COLLECTIONS CLERK Unavailable Sylvia Dawson Primary Care Provider [phone] Jessy Adame MD Unavailable Harpal Carpio MD Unavailable Rossana Church DNP Unavailable Zahida Kaplan Unavailable Fadi Cook Unavailable [phone] Harpal De León MD Unavailable [phone] Valorie Young MD Unavailable Patricia Martinez MD Unavailable [phone] Reason for Visit * Reason Comments Punctate epithelial keratopathy OU Encounter Details Date Type Department Care Team (Late st Contact Info) Description 07/27/2023 9:45 AM CDT Office Visit [facility] [address] [facility] [address] [place] [id number] Corinna Elmore MD PhD [address] [place] [address] 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 Adame for Chava's SPK Punctate epithelial keratopathy OU I/s/o recent [...] 07/25: corneas clear off drops x2 weeks RV with PRN, patient would like to follow up with Dr. 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 [address] [facility] [address] [place] [address] Radiation Oncologist Radiation Oncology 10/25/18 Gasper Kaba MD [address] [facility] [address] [facility] [address] [place] [address] Surgeon Surgical Oncology 10/25/18 Brandy Aguirre, CARINA [address] [facility] [address] [place] [address] Nurse Practitioner Certified Clinical Nurse Specialist 10/25/18 Jo-Ann Morrow, PhD [address] [facility] [address] [place] [address] Nurse Practitioner Radiation Oncology 10/25/18 Christina Louis, COLLECTIONS CLERK [address] [facility] [address] [place] [address] Nurse Practitioner Medical Oncology 10/25/18 Jessy Adame MD [address] [facility] DEPT OPHTHALMOLOGY, [address] [place] [address] Consulting Physician Retina Ophthalmology 04/15/23 Harpal Carpio MD [address] [place] [address] Neurologist Neurology 04/15/23 oRssana Church DNP [address] [place] [address] Nurse Practitioner Nurse Practitioner 04/15/23 Zahida Kaplan PA [address] NEUROLOGY [address] [address] Physician Account Director Physician Account Director 04/15/23 Fadi Cook PA [address] DIV NEUROLOGY SLEEP [address] [address] Physician Account Director Sleep Medicine 04/15/23 Harpal De León MD [address] [address] Conduit Helper Cardiology 04/15/23 Valorie Young MD [address] [facility] [address] [place] [address] Conduit Helper Cardiology 04/15/23 Patricia Martinez MD [address] [facility] DIV RHEUMATOLOGY, [address] [address] Consulting Physician Rheumatology 04/15/23 documented as of this encounter
--- OUTSIDE RECORDS SUMMARY | 2024-04-24 05:48 | XMS_ITS | Encounter Summary ---
Author Organization [facility] Address [address] [place] [address] Phone Care Team Providers Care Director Private Music Therapy Agency Name Role Phone Erica Rodrigues MD Unavailable Gasper Kaba MD Unavailable Brandy Aguirre SPECIAL NEEDS BABYSITTER Unavailable Jo-Ann Morrow PhD Unavailable [phone] Christina Louis INSPECTOR OF DREDGING Unavailable [phone] Sylvia Dawson Primary Care Provider [phone] Jessy Adame MD Unavailable Harpal Carpio MD Unavailable [phone] Rossana Church DNP Unavailable [phone] Zahida Kaplan Unavailable Fadi Cook Unavailable Harpal De León MD Unavailable Valorie Young MD Unavailable Patricia Martinez MD Unavailable [phone] Encounter Details Date Type Department Care Team (Late st Contact Info) Description 08/27/2023 2:00 PM CDT Office Visit [facility] Rheumatology [facility] Medicine 5th [place] [address] [place] [address] Patricia Martinez MD [address] [place] [address] Rheumatoid 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 (CMS/HCC) (HCC) (Primary Dx); Mixed hyperlipidemia; High risk medication use; Dissection of carotid artery (CMS/HCC) (HCC) Social History Tobacco Use Types [...] on file Legal Sex Female 3:42 AM 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 MANAGER Gender Identity Not on file Sexual Orientation Not on file 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 Not on file Not on file Not on file documented as of this encounter Last Filed Vital Signs Vital Sign Reading Time Taken Comments Blood Pressure 122/78 08/27/2023 1:59 PM CDT Pulse 59 08/27/2023 1:59 PM CDT Temperature 36.6 ??C (97.8 ??F) 08/27/2023 1:57 PM CD T Respiratory Rate - - Oxygen Saturation - - Inhaled Oxygen Concentration - - Weight 66.6 kg (146 lb 12.8 oz) 08/27/2023 1:57 PM CDT Height 160 cm (5' 3 ) 08/27/2023 1:57 PM CDT Body Mass Index 26 08/27/2023 1:57 PM CDT documented in this encounter Progress Notes * Patricia Martinez MD - 08/27/2023 2:00 PM CDT Rheumatology PATIENT NAME: Yesika Denney : 1960 STEVEN: 08/27/2023 Subjective Chief Complaint: Follow-up seronegative rheumatoid arthritis [...] mg b.i.d.. She was last seen on Apr 02. Interval History: Since last visit, she notes minimal AM stiffness, no swollen joints. The patient reports new problems of: -OFF ON chest wall pain, ? 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 Review: Phong 04/15 for anisocoria, transient visual loss but resolution on exam and no new signs of stroke /new findings on MRI brain/orbits, Adame 04/29 for cystoid macular edema with punctate epithelial deposits treated with Durezol gtt and changed to prednisolone by Dr Elmore with resolution 07/26 Disease Treatment History(Reviewed/revised 08/27/2023): May 10 2015 [...] gm bid for intermittant inflammatory arthritis, scleritis Objective Current Outpatient Medications: acetaminophen (TYLENOL) 325 [...] MOUTH DAILY, Disp: 90 tablet, Rfl: 1 yupejoicqg-clwcidxplfyei-ihmwtbud-codeine (FIORICET WITH CODEINE) [id number] mg per capsule, Take1 capsule by mouth [...] 1 folic acid (FOLVITE) 1 mg tablet, Take 2 tablets (2,000 mcg total) by mouth daily (Patient taking differently: Take 2 tablets (2,000 mcg total) by mouth every morning), Disp: 180 tablet, Rfl: 3 gabapentin (NEURONTIN) 100 mg capsule, Take 1 capsule (100 mg total) by mouth 2 (two) times a day, Disp: 60 capsule, Rfl: 1 lisinopriL (PRINIVIL,ZESTRIL) 40 mg tablet, [...] day., Disp: 30 tablet, Rfl: 1 vit E-L-zyiubf-zinc-lutein (PreserVision Lutein) 226-90-0.8-5 mg capsule, Take 1 tablet by mouth 2 (two) times a day, Disp: , Rfl: hydroCHLOROthiazide (HYDRODIURIL) 12.5 mg tablet, TAKE 1 TABLET(12.5 MG) BY MOUTH DAILY (Patient not taking: Reported on 08/27/2023), Disp: 90 tablet, Rfl: 1 oxyCODONE (ROXICODONE) 5 mg immediate release tablet, Take 1 tablet (5 mg total) by mouth every 4 (four) hours as needed for pain (Patient not taking: Reported on 06/16/2023), Disp: 10 tablet, Rfl: 0 Physical Exam BP 122/78 Pulse 59 Temp 36.6 ??C (97.8 ??F) Ht 160 cm (5' 3 ) Wt 66.6 kg (146 lb 12.8 oz) LMP (LMP Unknown) BMI 26.00 kg/m?? GEN: NAD, WDWN SKIN: No rash HEENT: PEERL, Conjunctivae are clear. Mild periorbital tenderness Chest wall without tenderness today EXT: No LE edema. MSK: No active synovitis in a standard 28 jt count PSYCH: Appropriate affect. Labs: TAAD genetic panel negative Assessment Assessment: Problem List Items Addressed This Visit Rheumatology Problems Rheumatoid arthritis with negative rheumatoid factor (HCC) - Primary Relevant Orders CBC with auto differential Comprehensive metabolic panel CRP (acute phase) Erythrocyte sedimentation rate Other High risk medication use Relevant Orders CBC with auto differential Comprehensive metabolic panel CRP (acute phase) Erythrocyte sedimentation rate Mixed hyperlipidemia Relevant Orders Lipid panel Today her inflammatory symptoms are overall well controlled and unclear recent costochondritis as part of her syndrome. However she is now off prednisone, steroid drops and has had intermittent symptoms of orbital tenderness and I have asked her to follow-up with ophthalmology. She had had ocular redness but this actually improved with the sulfasalazine suggesting an inflammatory eye disease. I reviewed her records in optho and suggested she reach out to Dr Adame for best provider for intermediate follow up. TAAD screening negative and awaits roll up helper as to whether additional testing indicated for hypermobility, dissection, aneurysms. I reviewed the patient's prior visit Apr 02 and health assessment questionnaire.Current diseaseactivity is low. Immunizations: Immunization History Administered Date(s) Administered Influenza, Quadrivalent, Cell Culture-based MDCK, Preservative Free, Antibiotic Free, Txtoueyszmyzh32/04/2018 Influenza, Quadrivalent, Split, Preservative Free, Intramuscular 01/05/2020, 02/26/2021, 02/27/2022, 04/01/2023 Influenza, Trivalent, Intramuscular 01/27/2018 Influenza, Trivalent, Preservative Free, Intramuscular 02/24/2017 Influenza, Unspecified 01/11/2019 Pfizer SARS-CoV-2 Monovalent Vaccination (12+ Yrs) BEASLEY-READY TO USE 05/14/2021 Pfizer SARS-CoV-2 Monovalent Vaccination (12+ Yrs) PURPLE 10/12/2020, 11/08/2020 Tdap 02/27/2022 ZOSTER Recombinant 02/23/2020, 05/01/2020 Reviewed 08/27/2023 Follow-up: Return in about 6 months (around 02/27/2024). documented in this encounter Plan of Treatment Not on file documented as of this encounter Procedures Procedure Name Priority Date/Time Associated Diagnosis Comments CBC WITH AUTO DIFFERENTIAL Routine 12/10/2023 9:44 AM CDT Rheumatoid 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 (CMS/HCC) (HCC) High risk medication use ERYTHROCYTE SEDIMENTATION RATE Routine 12/10/2023 9:44 AM CDT Rheumatoid 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 (CMS/HCC) (HCC) High risk medication use CRP (ACUTE PHASE) Routine 12/10/2023 9:4 4 AM CDT Rheumatoid 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 (CMS/HCC) (HCC) High risk medication use LIPID PANEL Routine 12/10/2023 9:44 AM CDT Mixed hyperlipidemia COMPREHENSIVE METABOLIC PANEL Routine 12/10/2023 9:44 AM CDT Rheumatoid 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 (CMS/HCC) (HCC) High risk medication use documented in this encounter Results * (ABNORMAL) Lipid panel (12/10/2023 9:44 AM CDT) Cholesterol 236(H) 100 - 199 mg/dL [facility] - 01 Triglycerides 102 0 - 149 mg/dL [facility] - 01 HDL Cholesterol 77 >39 mg/dL [facility] - 01 VLDL 18 5 - 40 mg/dL [facility] - 01 LDL, calculated 141(H) 0 - 99 mg/dL [facility] - 01 Blood 12/10/2023 9:44 AM CDT 12/10/2023 Narrative [facility] - 12/11/2023 2:09 AM CDT Performed at: ??01 - [facility] [address] ??[id number] Redrying Machine Operator: John Lozoya PhD, Phone: ??[phone] us Patricia Martinez MD LAB BLOOD ORDERABLES Final R esult [facility] - * Erythrocyte sedimentation rate (12/10/2023 9:44 AM CDT) Erythrocyte sedimentation rate 3 0 - 40 mm/hr [facility] - 01 Blood 12/10/2023 9:44 AM CDT 12/10/2023 Narrative [facility] - 12/11/2023 9:11 AM CDT Performed at: ??01 - [facility] ??[id number] Redrying Machine Operator: John Lozoya PhD, Phone: ??[phone] us Patricia Martinez MD LAB BLOOD ORDERABLES Final R esult Performing Organization Address City[facility] Co de Phone Number [facility] - * CRP (acute phase) (12/10/2023 9:44 AM CDT) Pathologist [facility] CRP 2 0 - 10 mg/L [facility] - 01 Blood 12/10/2023 9:44 AM CDT 12/10/2023 Narrative [facility] - 12/11/2023 7:13 AM CDT Performed at: ?? [facility] ??[id number] Redrying Machine Operator: John Lozoya PhD, Phone: ??[phone] us Patricia Martinez MD LAB BLOOD ORDERABLES Final R esult [facility] - * Comprehensive metabolic panel (12/10/2023 9:44 AM CDT) Glucose 92 70 - 99 mg/dL [facility] - 01 BUN 12 8 - 27 mg/dL [facility] - 01 Creatinine, Serum 0.79 0.57 - 1.00 mg/dL [facility] - 01 eGFR 84 >59 mL/min/1.73 [facility] - 01 BUN/creat ratio 15 12 - 28 [facility] - 01 Sodium 138 134 - 144 mmol/L [facility] - 01 Potassium, sr 4.2 3.5 - 5.2 mmol/L [facility] - 01 Chloride 104 96 - 106 mmol/L [facility] - 01 CO2 22 20 - 29 mmol/L [facility] - 01 Calcium 9.1 8.7 - 10.3 mg/dL [facility] - 01 Protein, sr 6.3 6.0 - 8.5 g/dL [facility] - 01 Albumin 4.3 3.9 - 4.9 g/dL [facility] - 01 Globulin, Total 2.0 1.5 - 4.5 g/dL [facility] - 01 Bilirubin, Total 0.4 0.0 - 1.2 mg/dL [facility] - 01 Alk phos 69 44 - 121 IU/L [facility] - 01 AST 18 0 - 40 IU/L [facility] - 01 ALT 16 0 - 32 IU/L [facility] - 01 Blood 12/10/2023 9:44 AM CDT 12/10/2023 Narrative [facility] - 12/11/2023 1:07 AM CDT Performed at: ?? - [facility] ??[id number] Redrying Machine Operator: John Lozoya PhD, Phone: ??[phone] us Patricia Martinez MD LAB BLOOD ORDERABLES Final R esult [facility] * (ABNORMAL) CBC with auto differential (12/10/2023 9:44 AM CDT) WBC 4.5 3.4 - 10.8 x10E3/uL [facility] - 01 RBC 3.75(L) 3.77 - 5.28 x10E6/uL [facility] - 01 Hgb 12.5 11.1 - 15.9 g/dL [facility] - 01 Hct 38.7 34.0 - 46.6 % [facility] - 01 MCV 103(H) 79 - 97 fL [facility] - 01 MCH 33.3(H) 26.6 - 33.0 pg [facility] - 01 MCHC 32.3 31.5 - 35.7 g/dL [facility] - 01 Rdw 13.1 11.7 - 15.4 % [facility] - 01 Platelets 201 150 - 450 x10E3/uL [facility] - 01 Neutrophils pct 57 Not Estab. % [facility] - 01 Lymphs pct 28 Not Estab. % [facility] - 01 Monocytes pct 12 Not Estab. % [facility] - 01 Eosinophils pct 2 Not Estab. % [facility] - 01 Basophil pct 1 Not Estab. % [facility] - 01 Neutrophil abs 2.6 1.4 - 7.0 x10E3/uL [facility] - 01 Lymphs (Absolute) 1.3 0.7 - 3.1 x10E3/uL [facility] - 01 Monocyte abs 0.5 0.1 - 0.9 x10E3/uL [facility] - 01 Eosinophils, abs 0.1 0.0 - 0.4 x10E3/uL [facility] - 01 Basophils, abs 0.0 0.0 - 0.2 x10E3/uL [facility] - 01 Immature Granulocytes 0 Not Estab. % [facility] - 01 Immature Grans (Abs) 0.0 0.0 - 0.1 x10E3/uL [facility] - 01 Blood 12/10/2023 9:44 AM CDT 12/10/2023 Narrative [facility] - 12/11/2023 12:07 AM CDT Performed at: ?? - [facility] [address] ??[id number] Redrying Machine Operator: John Lozoya PhD, Phone: ??[phone] us Patricia Martinez MD LAB BLOOD ORDERABLES Final R esult [facility] - 01 documented in this encounter Visit Diagnoses Diagnosis Rheumatoid 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 (CMS/HCC) (HCC)- Primary Mixed hyperlipidemia High risk medication use Dissection of carotid artery (CMS/HCC) (HCC) Dissection of carotid artery documented in this encounter Care Teams Director Private Music Therapy Agency Relationship Specialty Start Date End Date Sylvia Dawson PA [address] [place] [address] PCP - General Internal Medicine 01/05/20 Erica Rodrigues MD [address] [place] [address] Radiation Oncologist Radiation Oncology 10/25/18 Gasper Kaba MD [address] [place] [address] Surgeon Surgical Oncology 10/25/18 Brandy Aguirre, SPECIAL NEEDS BABYSITTER [address] [place] [address] Nurse Practitioner Certified Clinical Nurse Specialist 10/25/18 Jo-Ann Morrow, PhD [address] [place] [address] Nurse Practitioner Radiation Oncology 10/25/18 Christina Louis, INSPECTOR OF DREDGING [address] [place] [address] Nurse Practitioner Medical Oncology 10/25/18 Jessy Adame MD [facility] [facility], [address] [place] [address] Consulting Physician Retina Ophthalmology 04/15/23 Harpal Carpio MD [address] [place] [address] Neurologist Neurology 04/15/23 Rossana Church DNP [address] [address] Nurse Practitioner Nurse Practitioner 04/15/23 Zahida Kaplan PA [address] [facility] [facility] NEUROLOGY GENERAL, [facility] [address] [place] [address] Physician Hand Winder Physician Hand Winder 04/15/23 Fadi Cook PA [address] [facility] [facility] DIV NEUROLOGY SLEEP MED, [facility] [address] [place] [address] Physician Hand Winder Sleep Medicine 04/15/23 Harpal De León MD [address] [place] [address] Ad Operations Intern Cardiology 04/15/23 Valorie Young MD [address] [facility] 8B [place] [address] Ad Operations Intern Cardiology 04/15/23 Patricia Martinez MD [address] [facility] DIV IM RHEUMATOLOGY, [facility] [address] [place] [address] Consulting Physician Rheumatology 04/15/23 documented as of this encounter
--- OUTSIDE RECORDS SUMMARY | 2024-04-24 05:48 | XMS_ITS | Encounter Summary ---
Author Organization [facility] Healthcare Address [address] [place] [address] Care Team Providers Care Senior Regulatory Affairs Specialist Name Role Phone Erica Rodrigues MD Unavailable Gasper Kaba MD Unavailable Brandy Aguirre Unavailable Jo-Ann Morrow PhD Unavailable Christina Louis NIGHT GUARD Unavailable [phone] Sylvia Dawson Primary Care Provider [phone] Jessy Adame MD Unavailable Harpal Carpio MD Unavailable Rossana Church [facility] Unavailable Zahida Kaplan Unavailable Fadi Cook Unavailable Harpal De León MD Unavailable Valorie Young MD Unavailable [phone] Patricia Martinez MD Unavailable [phone] Encounter Details Date Type Department Care Team (Late st Contact Info) Description 06/05/2023 Orders Only [facility] Health Information Management [address] [place] [address] Scanning, Provider Social History Tobacco Use Types [...] on file Legal Sex Female 3:42 AM FINISHED YARN EXAMINER Gender Identity Not on file Sexual Orientation Not on file 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 Not on file Not on file documented as of this encounter Plan of Treatment Not on file documented as of this encounter Procedures Procedure Name Priority Date/Time Associated Diagnosis Comments SCAN - RADIOLOGY/IMAGING 06/05/2023 SCAN - LABS 06/05/2023 documented in this encounter Results * SCAN - LABS (06/05/2023) us Provider Scanning Edited Result - Final * SCAN - RADIOLOGY/IMAGING (06/05/2023) Anatomical Region Laterality Modality Other us Provider Scanning Edited Result - Final documented in this encounter Visit Diagnoses Not on filedocumented in this encounter Care Teams Senior Regulatory Affairs Specialist Relationship Specialty Start Date End Date Sylvia Dawson PA [address] [facility] [address] [place] [address] PCP - General Internal Medicine 01/05/20 Erica Rodrigues MD [address] [facility] [address] [place] [address] Radiation Oncologist Radiation Oncology 10/25/18 Gasper Kaba MD [address] [facility] [address] [place] [address] Surgeon Surgical Oncology 10/25/18 Brandy Aguirre, LIBRARY SERVICES ASSISTANT [address] [facility] [address] [place] [address] Nurse Practitioner Certified Clinical Nurse Specialist 10/25/18 Jo-Ann Morrow, PhD [address] [place] [address] Nurse Practitioner Radiation Oncology 10/25/18 Christina Louis, NIGHT GUARD [address] [facility] [address] # LL [facility] [address] [place] [address] Nurse Practitioner Medical Oncology 10/25/18 Jessy Adame MD [address] [facility] DEPT OPHTHALMOLOGY, [address] [place] [address] Consulting Physician Retina Ophthalmology 04/15/23 Harpal Carpio MD [address] [place] [address] Neurologist Neurology 04/15/23 Rossana Church DNP [address] [place] [address] [place] [address] Nurse Practitioner Nurse Practitioner 04/15/23 Zahida Kaplan PA [address] [facility] NEUROLOGY [facility], [address] [address] Physician Office Machine Mechanic Physician Office Machine Mechanic 04/15/23 Fadi Cook PA [address] [facility] NEUROLOGY SLEEP [facility], [facility] [address] [place] [address] Physician Office Machine Mechanic Sleep Medicine 04/15/23 Harpal De León MD [address] [facility] [address] [place] [address] Research Food Technologist Cardiology 04/15/23 Valorie Young MD 49[address] [facility] 8B [facility] [place] [address] Research Food Technologist Cardiology 04/15/23 Patricia Martinez MD 49[address] [facility] IM RHEUMATOLOGY, [facility] [address] [place] [address] Consulting Physician Rheumatology 04/15/23 documented as of this encounter
--- OUTSIDE RECORDS SUMMARY | 2024-04-24 05:48 | XMS_ITS | Encounter Summary ---
Author Organization [facility] Address [address] [place] [address] Phone Care Team Providers Care Manager Transition Name Role Phone Erica Rodrigues MD Unavailable Gasper Kaba MD Unavailable Brandy Aguirre BUS COMPANY MANAGER Unavailable Jo-Ann Morrow PhD Unavailable Christina Louis TIGER MACHINE OPERATOR Unavailable [phone] Sylvia Dawson Primary Care Provider [phone] Jessy Adame MD Unavailable Harpal Carpio MD Unavailable [phone] Rossana Church DNP Unavailable [phone] Zahida Kaplan Unavailable Fadi Cook Unavailable Harpal De León MD Unavailable Valorie Young MD Unavailable [phone] Patricia Martinez MD Unavailable Reason for Visit * Reason Comments Blurred Vision Encounter Details Date Type Department Care Team (Late st Contact Info) Description 05/22/2023 10:00 AM GATE SUPERVISOR 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 documented in this encounter Eye Exam Visual Acuity (Snellen - Linear) Right eye Left eye Dist sc 20/20 -1 20/20 -2 Tonometry (Tonopen, 10:08 AM) Right eye Left eye Pressure 15 14 Pupils Dark Light Shape React APD Right eye 5 4 Round Brisk None Left eye 4.5 4 Round Brisk None Visual Grossman Right eye Left eye Full Full Extraocular Movement Right eye Left eye Full Full Neuro/Psych Oriented x3: Yes Mood/Affect: Normal Dilation Both eyes: 1.0% Mydriacyl, 2 .5% Phenylephrine @ 10:09 AM External Exam Right eye Left eye External Normal Normal Slit Lamp Exam Right eye Left eye Lids/Lashes Normal Normal Conjunctiva/Sclera White and quiet White and gael et Cornea Few TSPK Few TSPK Anterior Chamber Deep and quiet Deep and quiet Iris Round and reactive Round and erasmo ctive Lens Posterior chamber in traocular lens, Open posterior capsule Posterior chamber intraocular lens, Open posterior capsule Anterior Vitreous s/p ppV s/p PPV Fundus Exam Right eye Left eye Posterior Vitreous Normal Normal Disc Normal Normal C/D Ratio 0.2 0.2 Macula Normal Normal Vessels Normal Normal Periphery drusen drusen Care Teams Manager Transition Relationship Specialty Start Date End Date Sylvia Dawson PA [address] [place] [address] PCP - General Internal Medicine 01/05/20 Erica Rodrigues MD [address] [facility] [address] [place] [address] Radiation Oncologist Radiation Oncology 10/25/18 Gasper Kaba MD [address] [facility] [address] [place] [address] Surgeon Surgical Oncology 10/25/18 Brandy Aguirre CNS [address] [facility] [address] [place] [address] Nurse Practitioner Certified Clinical Nurse Specialist 10/25/18 Jo-Ann Morrow, PhD [address] [facility] [address] [place] [address] Nurse Practitioner Radiation Oncology 10/25/18 Christina Louis TIGER MACHINE OPERATOR [address] [facility] [address] [place] [address] Nurse Practitioner Medical Oncology 10/25/18 Jessy Adame MD 49[address] [facility] DEPT OPHTHALMOLOGY, [address] [place] [address] Consulting Physician Retina Ophthalmology 04/15/23 Harpal Carpio MD [address] [place] [address] Neurologist Neurology 04/15/23 Rossana Church DNP [address] [facility] [place] [address] Nurse Practitioner Nurse Practitioner 04/15/23 Zahida Kaplan PA [address] [facility] NEUROLOGY [facility], [address] [address] Physician Gamb Cutter Physician Gamb Cutter 04/15/23 Fadi Cook PA [address] [facility] DIV NEUROLOGY SLEEP MED, [facility] [address] [place] [address] Physician Gamb Cutter Sleep Medicine 04/15/23 Harpal De León MD [address] [place] [address] Bankruptcy Attorney Cardiology 04/15/23 Valorie Young MD 4921 [facility] 8B [place] [address] Bankruptcy Attorney Cardiology 04/15/23 Patricia Martinez MD [address] [facility] DIV IM RHEUMATOLOGY, [facility] [address] [place] [address] Consulting Physician Rheumatology 04/15/23 documented as of this encounter
--- OUTSIDE RECORDS SUMMARY | 2024-04-24 05:48 | XMS_ITS | Encounter Summary ---
Author Organization [facility] Address [address] [place] [address] Phone Care Team Providers Care Game Designer/Creative Director Name Role Phone Erica Rodrigues MD Unavailable Gasper Kaba MD Unavailable Brandy Aguirre TOOTH INSPECTOR Unavailable Jo-Ann Morrow PhD Unavailable Christina Louis TRANSCRIPT CLERK Unavailable [phone] Sylvia Dawson Primary Care Provider [phone] Jessy Adame MD Unavailable Harpal Carpio MD Unavailable [phone] Rossana Church DNP Unavailable Zahida Kaplan Unavailable Fadi Cook Unavailable Harpal De León MD Unavailable [phone] Valorie Young MD Unavailable Patricia Martinez MD Unavailable [phone] Reason for Visit * Sleep Medicine (Routine) - Closed Specialty Diagnoses / Procedures Referred By Contac t Referred To Contact Diagnoses JOSE (obstructive sleep apnea) Procedures Portable/Home Sleep Study Fadi Cook, PA [address] [place] [address] Phone: tel: fax: [facility] (All Locations) Referral ID Status Reason Start Date Expiration Date Visits Re quested Visits Authorized [id number] Closed 06/03/2023 07/12/2023 1 1 Encounter Details Date Type Department Care Team (Latest Contact Info) Description 06/15/2023 11:00 AM SPEECH AND HEARING DIRECTOR Procedure visit [facility] Neuro Sleep [address] [facility] 6th Floor [address] [place] [id number] JOSE (obstructive sleep apnea) (Primary Dx) Social History Tobacco Use Types [...] on file Legal Sex Female 3:42 AM SPEECH AND HEARING DIRECTOR Gender Identity Not on file Sexual Orientation Not on file 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 Sleep View - Serial # . I understand that this is a temporary loaner, and the device must be returned by 06/16/2023. If an extension is needed or have any questions or concerns, I will contact Norman at [phone]. If I fail to contact or return the device, I understand I will be charged for the cost in full. By signing this form, I have read and understand the agreement: Patient Signature: Witness Signature: Date: 06/15/2023 63 148 lbs * Celio Rivero MD - 06/15/2023 11:00 AM CSTAssociated Order(s): Portable/Home Sleep Study Pre-Procedure Diagnose(s): JOSE (obstructive sleep apnea) Post-Procedure Diagnose(s): JOSE (obstructive sleep apnea) Images from the original note were not included. Portable/Home Sleep Study Date/Time: 06/15/2023 10:00 PM Performed by: Fadi Cook PA Authorized by: Fadi Cook PA [facility] [address] [place] [address] Home Sleep Apnea Test (HSAT) Report Patient Name: Yeiska Denney : 1960 Patient Date of Service: 06/15/2023 CLINICAL HISTORY: Yesika Denney is a 62 y.o. female with a history of HLD, HTN, breast cancer, depression who presents to the [facility] for sleep follow up and Inspire follow up. Inspire therapy and ultimately was implanted on 03/20/[address] Albin Pereyra. Her device was activated on 04/30/23. Height: 63.0 in Weight: 148 lbs BMI: 26.21 PROCEDURE: Unless otherwise noted, respiratory events were scored in accordance with recommended parameters as outlined in the AASM Manual for the Scoring of Sleep and Associated Events, Version 3.0.Hypopneas were scored in accordance with acceptable parameters as outlined in Chapter IX, Part 1: HSAT Utilizing Respiratory Flow and/or Effort Parameters, Category H., Section 2B. Additionally, hypopnea count and JEAN-PAUL/AHI utilizing recommended scoring parameters as outlined in Category H., Section 2A, will be reported separately in this report. The patient underwent a digital diagnostic portable type 3 device home sleep test; Utilizing [employer]'s Riskalyze portable sleep monitor. Sleep time was recorded via actigraphy derived from an accelerometer physically integrated into the SleepView unit; also providing body position monitoring. Airflow and snore were recorded via an oral/nasal cannula. Respiratory effort was recorded via Respiratory Inductance Plethysmography. Oxygen saturation was obtained by a pulse oximeter, to identify oxygen desaturations and heart rate variations. All raw data was graphically depicted and utilized for scoring and detailed interpretive review. Raw data was deemed technically accurate. The patient underwent one night of study. The data was recorded internally to memory built into [employer] unit and uploaded to [email or web address] website. Sleep center faculty and staff performed scoring and interpretation. All raw data, graphically depicting all recorded channels, was utilized for scoring and detailed interpretive review. SLEEP TIME AND EFFICIENCY: The sleep study recording began at 09:48:22 PM and ended at 08:04:39 AM.Total recording time was 616.3 minutes. The total sleep time was 464.9 minutes. The sleep efficiency was 75.4 percent. The patient spent 318.1 minutes supine, and spent 146.9 minutes non-supine. RESPIRATORY DATA: The AHI in this report is indexed to sleep time based on actigraphy. The AASM defines this as JEAN-PAUL. The AHI on this type 3 Home Sleep Study may understate the AHI determined on a type 1 or 2 study, since EEG is not monitored resulting in the inability to score non-desaturating hypopneas. Based on 3% Calculation: The 3% AHI calculation of 9.7 per hour of sleep time was based on a total of 26 scored apneas and 49 scored hypopneas with 3% desaturations. Supine 3% AHI:10.0 per hour. Non-supine 3% AHI: 7.4 per hour. Based on 4% Calculation: The 4% AHI calculation of 6.3 per hour of sleep time was based on a total of 26 scored apneas and 23 scored hypopneas with 4% desaturations. Supine 4% AHI: 5.8 per hour. Non-supine 4% AHI: 5.7 per hour. Oxygen Summary: Patient's baseline O2 saturation was 95.1 %. The patient spent 00:00 minutes at an oxygen saturation less than or equal to 88%, The desaturation index, based on 3% oxygen desaturations, was 8.3 events per hour sleep time. The lowest saturation was 83.8 %. PULSE RATE REVIEW: The mean heart rate was 56 beats per minute. The rate ranged from a low of 33 toa high of 82 beats per minute. Limitations of the study: A sleep EEG was not recorded. Sleep time and sleep stages were determined by the device algorithm. Sleep time was recorded via actigraphy derived from an accelerometer physically integrated into the SleepView unit. The [employer] algorithm uses heart rate and respiratory flow signals to calculate sleep stage per epoch. If Watch Pad was used, Peripheral arterial tonometry (PAT)-based technologywas used to calculate sleep stage per epoch. For the above reason, the actual amount of time spent in sleep, stages of sleep and respiratory events associated with arousals may not be accurately determined by this study, and sleep apnea may be over estimated or underestimated. Central sleep apnea may be miscategorized as obstructive sleep apnea Interpretation: Mild obstructive sleep apnea based on a 4% AHI/JEAN-PAUL of 6.3/hour using SpO2 desaturation of 4% to define hypopnea and 3% AHI/JEAN-PAUL of 9.7/hour using SpO2 3% desaturation to define hypopnea. Time spent with SpO2 < 89%: 0 minutes. Supine 3% AHI:10.0 per hour. Non-supine 3% AHI: 7.4 per hour. Recommendations: The results of this sleep study will be discussed with the patient. By signing this report, I certify that I have read this home sleep study, edited the report, and agree with the description of findings and interpretation contained in this written report. ---- Celio Rivero MD, MSCE, FACP Professor of Neurology [facility] Board Certified in Sleep Medicine [facility] Sleep Medicine [facility] SleepView Report Patient Name: Yesika Denney Physician: Layton Farah MD Recording Date: 06/15/2023 : 1960 Height: 63.0 in Weight: 148.0 lb Gender: Female BMI: 26.21 RECORDING SUMMARY: Acquisition Start: 09:48:22 PM Acquisition End: 08:04:39 AM Total Acquisition Time: 616.3 min Total Sleep Time: 464.9 min Sleep Efficiency: 75.4 % RESPIRATORY SUMMARY O. Apnea Events: 16 O. Apnea Index: 2.1 Central Apnea Events: 10 Central Apnea Index: 1.3 Mixed Apnea Events: 0 Mixed Apnea Index: 0.0 Total Number of Apnea Events: 26 Total Apnea Index: 3.4 4% O. Hypopnea Events: 23 4% O. Hypopnea Index: 3.0 3% O. Hypopnea Events: 49 3% O. Hypopnea Index: 6.3 4% Hypopnea & Apnea Events: 49 4% Hypopnea & Apnea Index (4%AHI): 6.3 3% Hypopnea & Apnea Events: 75 3% Hypopnea & Apnea Index (3%AHI): 9.7 Longest O.Apnea Duration: 40 sec Longest O.Hypopnea Duration: 52 sec Mean O.Apnea Duration: 23 sec Mean O.Hypopnea Duration: 28 sec SLEEP APNEA SEVERITY SCALE Normal Mild Moderate Severe AHI <5 AHI 5-14 AHI 15-29 AHI 30 or > APNEA I HYPOPNEA EVENTS by BODY POSITION (3% DESATURATIONS): Position: SUPINE PRONE LEFT RIGHT UPRIGHT Number: [phone] 1 Index: 10.0 N/A 11.9 5.1 80.0 DESATURATION SUMMARY TABLE CHIOMA 3%: 8.3 MeanSpO2%: 92.7 % CHIOMA 4%: 4.1 Maximum SpO2%: 98 % Baseline Sa02%: 95.1 % Lowest Sa02%: 83.8 % Time Spent <= 88%: 00:00 Percent Time Spent <= 88%: 0.1 90+ 90-80 80-70 70-60 60-50 50-40 40- Mins: 461.8 3.1 0.0 0.0 0.0 0.0 0.0 % Time: 99.3 0.7 0.0 0.0 0.0 0.0 0.0 SNORE SUMMARY SNORE Count: 27 SNORE Index: 3.5 SNORE Supine Count: 16 SNORE Supine Index: 3.0 SNORE Non-Supine Count: 11 SNORE Non-Supine Index: 4.5 PULSE RATE SUMMARY Mean Heart Rate (bpm): 56 Minimum Heart Rate (bpm): 33 Maximum Heart Rate (bpm): 82 documented in this encounter Plan of Treatment Not on file documented as of this encounter Procedures Procedure Name Priority Date/Time Associated Diagnosis Comments PORTABLE/HOME SLEEP STUDY Routine 06/15/2023 10:00 PM SPEECH AND HEARING DIRECTOR JOSE (obstructive sleep apnea) documented in this encounter Results * PORTABLE/HOME SLEEP STUDY (06/15/2023 10:00 PM SPEECH AND HEARING DIRECTOR) Narrative Celio Rivero MD - 06/15/2023 10:00 PM SPEECH AND HEARING DIRECTOR Celio Rivero MD ? 06/24/2023 ??7:04 AM Portable/Home Sleep Study Date/Time: 06/15/2023 10:00 PM Performed by: Fadi Cook PA Authorized by: Fadi Cook PA ?? [facility] ORDERABLES Fin al Result documented in this encounter Visit Diagnoses Diagnosis JOSE (obstructive sleep apnea)- Primary Obstructive sleep apnea (adult) (pediatric) documented in this encounter Care Teams Game Designer/Creative Director Relationship Specialty Start Date End Date Sylvia Dawson PA [address] [facility] [address] [place] [address] PCP - General Internal Medicine 01/05/20 Erica Rodrigues MD [address] [facility] [address] [place] [address] Radiation Oncologist Radiation Oncology 10/25/18 Gasper Kaba MD [address] [place] [address] Surgeon Surgical Oncology 10/25/18 Brandy Aguirre CNS [address] [place] [address] Nurse Practitioner Certified Clinical Nurse Specialist 10/25/18 Jo-Ann Morrow, PhD [address] [facility] [address] [place] [address] Nurse Practitioner Radiation Oncology 10/25/18 Christina Louis, TRANSCRIPT CLERK [address] [facility] [address] [place] [address] Nurse Practitioner Medical Oncology 10/25/18 Jessy Adame MD [address] [facility], [address] [place] [address] Consulting Physician Retina Ophthalmology 04/15/23 Harpal Carpio MD [address] [place] [address] Neurologist Neurology 04/15/23 Rossana Church DNP [address] [place] [address] Nurse Practitioner Nurse Practitioner 04/15/23 Zahida Kaplan PA [address] [facility] NEUROLOGY GENERAL, [address] [address] Physician Noodle Maker Physician Noodle Maker 04/15/23 Fadi Cook PA [address] [facility] NEUROLOGY SLEEP [facility] [address] [place] [address] Physician Noodle Maker Sleep Medicine 04/15/23 Harpal De León MD [address] [place] [address] [place] [address] Insurance Sales Representative Cardiology 04/15/23 Valorie Young MD [address] [facility] [address] [place] [address] Insurance Sales Representative Cardiology 04/15/23 Patricia Martinez MD [address] [facility] DIV RHEUMATOLOGY, [address] [address] Consulting Physician Rheumatology 04/15/23 documented as of this encounter
--- OUTSIDE RECORDS SUMMARY | 2024-04-24 05:48 | XMS_ITS | Encounter Summary ---
Author Organization [facility] Address [address] [place] [address] Care Team Providers Care Maintenance And Repair Worker Name Role Phone Erica Rodrigues MD Unavailable Gasper Kaba MD Unavailable Brandy Aguirre CONTRACT SPECIALIST Unavailable [phone] Jo-Ann Morrow PhD Unavailable Christina Louis LICENSE INSPECTOR Unavailable [phone] Sylvia Dawson Primary Care Provider [phone] Jessy Adame MD Unavailable Harpal Carpio MD Unavailable Rossana Church DNP Unavailable Zahida Kaplan Unavailable Fadi Cook Unavailable Harpal De León MD Unavailable [phone] Valorie Young MD Unavailable [phone] Patricia Martinez MD Unavailable Encounter Details Date Type Department Care Team (Latest Contact Info) Description 06/16/2023 1:25 PM PARTNER MANAGEMENT CONSULTANT - 06/16/2023 11:59 PM PARTNER MANAGEMENT CONSULTANT Hospital Encounter [facility] Building [address] [address] Well woman exam Discharge Disposition: Discharge to home or self [...] on file Legal Sex Female 3:42 AM PARTNER MANAGEMENT CONSULTANT Gender Identity Not on file Sexual Orientation Not on file 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 on file Not on file Not [...] mouth daily 90 tablet 3 3 butalbital-acetamin odllm-pbihvqfk-ieun ine (FIORICET WITH CODEINE) 96-110-76-30 mg per capsuleIndications: Nonintractable headache, unspecified chronicity [...] 1 tablet by mouth every morning vit K-K-nywvik-zinc-lut ein (PreserVision Lutein) 226-90-0.8-5 mg capsuleIndications: Eye [...] THURSDAYS 96 tablet 2 4 01/11/20 24 [facility] ODT tablet,disintegrati ng 3 02/12/20 24 oxyCODONE [...] 30 tablet 5 4 09/08/19 24 valACYclovir (VALTREX) 1 gram tabletIndications:R ecurrent cold sores Take 2 tabs (2000 mg) 2 times a days for 1 day. 30 tablet 1 4 09/22/19 24 documented as of this encounter Discharge Disposition Disposition Code Departure Means Destination Discharge to home or self care documented in this encounter Plan of Treatment Not on file documented as of this encounter Procedures Procedure Name Priority Date/Time Associated Diagnosis Comments HIGH RISK HPV DNA DETECTION WITH GENOTYPING Routine 06/16/2023 11:06 AM PARTNER MANAGEMENT CONSULTANT Well woman exam PAP AND HIGH RISK HPV, REFLEX TO GENOTYPING Routine 06/16/2023 11:06 AM PARTNER MANAGEMENT CONSULTANT Well woman exam documented in this encounter Results * Pap and High Risk HPV and Genotyping (Cytology Component) (06/16/2023 11:06 AM PARTNER MANAGEMENT CONSULTANT) Thin prep (Pap test) 06/16/2023 11:06 AM PARTNER MANAGEMENT CONSULTANT 06/17/2023 10:27 AM PARTNER MANAGEMENT CONSULTANT Narrative PATHOLOGY [facility] - 06/22/2023 10:16 AM CDT EPIC results best viewed via link to PDF [facility]y [facility] Laboratory of [place] [address] Note to Patients: This report may contain [...] Gender: ??F : ??1960 (Age: 62) Address: ??[address] [place] [address] ??[id number] Hospital #: ??[id number] Service: ??DEFAULT Location: ?? Patient Type: ??[facility] SPECIMEN Taken: ??06/16/2023 Received: ??06/17/2023 [...] this test have been verified by the [facility] Molecular Infectious Disease laboratory. Correlate with [...] clinical information and biopsy results as indicated. [facility] Clinical Laboratory Improvement Amendments (CLIA) mandate that cytologic and histologic results be correlated for laboratory senior quality control inspector & improvement standards. ??FOR ALL HIGH-GRADE CASES [...] determined by the Surgical Pathology Department at [facility] as part of an ongoing corporate quality manager program and in compliance with federally mandated [...] determined by the Surgical Pathology Department of [facility]. ??It has not been cleared or approved by the U. S. Food and Drug Administration. Ema Keyes MD LAB CYTOLOGY ORDERABLES F inal Result PATHOLOGY [facility] * High Risk HPV DNA Detection with Genotyping (Molecular component) (06/16/2023 11:06 AM PARTNER MANAGEMENT CONSULTANT) HPV HR 16 Not Detected Not Detected KATHY HAINES Comment:Testing performed by : [facility], [address] [place]., [address] HPV HR 18 Not Detected Not Detected KATHY Comment:Testing performed by : [facility], [address] [place]., [address] HPV HR Non 16/18 Not Detected Not [...] this test have been verified by the [facility] Molecular Infectious Disease laboratory. Correlate with separately reported cytology results, as applicable. Interpretive data last revised 22 Testing performed by: [facility], [address] [place]., [address] Endocervical 06/16/2023 11:0 6 AM PARTNER MANAGEMENT CONSULTANT 06/16/2023 7:57 PM PARTNER MANAGEMENT CONSULTANT Narrative KATHY HAINES - 06/17/2023 1:53 AM PARTNER MANAGEMENT CONSULTANT Clinical history and diagnosis->screening Testing type->Screening Last menstrual period (date if known)->postmenopausal Ema Keyes MD LAB BODY FLUIDS AND STOOL S ORDERABLES Final Result Performing Organization Address City/State/[facility] Co de Phone Number KATHY [address] [facility] [place] [address] documented in this encounter Visit Diagnoses Diagnosis Well woman exam Routine general medical examination at a health care facility documented in this encounter Care Teams Maintenance And Repair Worker Relationship Specialty Start Date End Date Sylvia Dawson PA [address] [facility] [address] [place] [address] PCP - General Internal Medicine 01/05/20 Erica Rodrigues MD [address] [facility] [address] [place] [address] Radiation Oncologist Radiation Oncology 10/25/18 Gasper Kaba MD [address] [facility] [address] [place] [address] Surgeon Surgical Oncology 10/25/18 Brandy Aguirre, CARINA [address] [facility] [address] [place] [address] Nurse Practitioner Certified Clinical Nurse Specialist 10/25/18 Jo-Ann Morrow, PhD [address] [facility] [address] [place] [address] Nurse Practitioner Radiation Oncology 10/25/18 Christina Louis, LICENSE INSPECTOR [address] [facility] [address] [place] [address] Nurse Practitioner Medical Oncology 10/25/18 Jessy Adame MD [address] [facility], [address] [place] [address] Consulting Physician Retina Ophthalmology 04/15/23 Harpal Carpio MD [address] [place] [address] Neurologist Neurology 04/15/23 Rossana Church DNP [address] [place] [address] Nurse Practitioner Nurse Practitioner 04/15/23 Zahida Kaplan PA [address] DIV NEUROLOGY GENERAL, [address] [address] Physician Administration Vice President Physician Administration Vice President 04/15/23 Fadi Cook PA [address] DIV NEUROLOGY SLEEP [facility] [address] [place] [address] Physician Administration Vice President Sleep Medicine 04/15/23 Harpal De León MD [address] [facility] [address] [place] [address] Him Director Cardiology 04/15/23 Valorie Young MD [address] [facility] [address] [place] [address] Him Director Cardiology 04/15/23 Patricia Martinez MD [address] IM RHEUMATOLOGY, [address] [address] Consulting Physician Rheumatology 04/15/23 documented as of this encounter
--- OUTSIDE RECORDS SUMMARY | 2024-04-24 05:49 | XMS_ITS | Encounter Summary ---
Author Organization [facility] Address [address] [place] [address] Phone Care Team Providers Care Rodeo Rider Name Role Phone Erica Rodrigues MD Unavailable Gasper Kaba MD Unavailable Brandy Aguirre DATA CONVERSION ANALYST Unavailable [phone] Jo-Ann Morrow PhD Unavailable [phone] Christina Louis ELOCUTION TEACHER Unavailable [phone] Sylvia Dawson Primary Care Provider [phone] Encounter Details Date Type Department Care Team (Late st Contact Info) Description 02/24/2023 Telephone [place] [id number] [facility] Medical Office Building [address] [place] [address] Lizzie Green, JENNI [address] [place] [address] Social History Tobacco Use Types Packs/Day Years [...] points, staff should administer the PHQ-9) 0 04/22/2022 Comments No Sex and Gender Information Value Date Recorded Sex Assigned at Not on file Legal Sex Female 3:42 AM LITIGATOR Gender Identity Not on file Sexual Orientation Not on file 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 She states that upon standing, her blood pressure drops and she loses vision for a short time. The right eye is worst than the left eye. She is been tracking her bloodpressure as she does have hypertension and her blood pressure has been running lower. She cut back on some of her antihypertensives for a couple of weeks and is back on them. I encouraged her to reach out to Cardiology as they may want to change her medications for short time until her blood pressure regulates. Of note, the patient also had COVID in December. I have also reached out to Dr. Moss. GATOR documented in this encounter Plan of Treatment Not on file documented as of this encounter Visit Diagnoses Not on filedocumented in this encounter Care Teams Rodeo Rider Relationship Specialty Start Date End Date Sylvia Dawson PA [address] [facility] [address] [place] [address] PCP - General Internal Medicine 01/05/20 Erica Rodrigues MD [address] [facility] [address] LL LL [address] [place] [address] Radiation Oncologist Radiation Oncology 10/25/18 Gasper Kaba MD [address] [facility] [address] [place] [address] Surgeon Surgical Oncology 10/25/18 Brandy Aguirre, DATA CONVERSION ANALYST [address] LL [facility] [address] [place] [address] Nurse Practitioner Certified Clinical Nurse Specialist 10/25/18 Jo-Ann Morrow, PhD [address] [facility] [address] [place] [address] Nurse Practitioner Radiation Oncology 10/25/18 Christina Louis NP [address] [facility] [address] LL [facility] [address] [place] [address] Nurse Practitioner Medical Oncology 10/25/18 documented as of this encounter
--- OUTSIDE RECORDS SUMMARY | 2024-04-24 05:49 | XMS_ITS | Encounter Summary ---
Author Organization [facility] Address [address] [place] [address] Phone Care Team Providers Care Instant Print Operator Name Role Phone Erica Rodrigues MD Unavailable Gasper Kaba MD Unavailable Brandy Aguirre LANDING SCALER Unavailable [phone] Jo-Ann Morrow PhD Unavailable [phone] Christina Louis NAVAL INSPECTOR Unavailable Sylvia Dawson Primary Care Provider [phone] Reason for Referral * Diagnostic Imaging (Routine) - Closed Specialty Diagnoses / Procedures Referred By Contac t Referred To Contact Diagnoses Cystoid macular edema of both eyes Procedures OCT, Retina - OU - Both Eyes Thomas Hinojosa DO Phone: tel: fax: [facility] (All Locations) Referral ID Status Reason Start Date Expiration Date Visits Re quested Visits Authorized [id number] Closed 03/12/2023 04/10/2024 1 1 BORER Reason for Visit * Reason Comments Cystoid macular edema of both eyes Encounter Details Date Type Department Care Team (Late st Contact Info) Description 03/12/2023 8:50 AM JIG BORER Office Visit [facility] Ophthalmology [facility] [address] [place] [phone] Jessy Adame MD [address] [facility] [address] [place] [address] Cystoid macular edema of both eyes (Primary Dx); Amaurosis fugax of right eye Social History Tobacco Use Types Packs/Day Years [...] on file Legal Sex Female 3:42 AM JIG BORER Gender Identity Not on file Sexual Orientation Not on file 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 10 mL 11 03/12/2023 3 documented in this encounter Progress Notes * Jessy Adame MD - 03/12/2023 8:50 AM CST ASSESSMENT/ORDERS/PROCEDURES PERFORMED TODAY Chief Complaint Patient presents with Cystoid macular edema of both eyes HPI 6 week f/u Pt states VA is not good. OD is fine in the morning but gets really blurry as the day goes on. The only time it clears up OD is if she goes to sleep and wake up. Pt notices that VA OU (mostly OD) will sometimes go black superiorly for about 10 minutes. When this happens she will also get a headache. Denies pain/discomfort. Flashes occasionally OS, a few floaters OD. No watering,itching or redness. Ocular meds: AFT PRN OU Methotrexate weekly (every ) Folic Acid 2g weekly Durezol QID OD Last edited by Eugene Llamas B.A. on 03/12/2023 9:01 AM. Assessment/Plan Diagnoses and all orders for this visit: Cystoid macular edema of both eyes (Primary) Assessment & Plan: She is currently on durezol qid right eye (OD)- there has been limited improvement on OCT, however given the persistence of these findings, these are likely lamellar changes. Can begin to taper off the durezol weekly and will re- evaluate in 6 weeks off the drops. Vision get blurry as day goes on, cause unclear. Recommend observation. Orders: - OCT, Retina - OU - Both Eyes - difluprednate (DUREZOL) 0.05 % drops; Administer 1 drop into the right eye 3 (three) times a day for 7 days, THEN 1 drop 2 (two) times a day for 7 days, THEN 1 drop daily for 7 days. Amaurosis fugax of right eye Assessment & Plan: Notes episodes of superior vision loss, mainly OD, lasts for less than 10 min. History of R ant communicating aneurysm. Will communicate these symptoms with Dr. Moss. Addendum: Poc[place]ontas from [facility] office - may be related to orthostatic hypotension, she will be speaking to cardiology. OCT, Retina - OU - Both Eyes Right Eye Quality was good. Scan locations included subfoveal. Progression has been stable. Left Eye Quality was good. Scan locations included subfoveal. Progression has been stable. Notes OD: Lamellar changes, stable from previous OS: no fluid The signs and symptoms of retinal detachment, tears, infection, elevated intra- ocular pressure werereviewed with the patient. Patient knows to call should they have any of the symptoms. PLAN FOR NEXT VISIT Follow-up and Dispositions Return in about 6 weeks (around 04/23/2023) for Dilated exam OU, OCT OU. I have examined the patient, reviewed and edited the chart as needed, and discussed the findings, diagnosis and plan with the resident. I agree with the findings, diagnosis, plan that we have createdand documented. Jessy Adame MD BORER BORER documented in this encounter Miscellaneous Notes * Assessment & Plan Note - Jessy Adame MD - 03/12/2023 9:50 AM JIG BORER Associated Problem(s): Amaurosis fugax of right eye Notes episodes of superior vision loss, mainly OD, lasts for less than 10 min. History of R ant communicating aneurysm. Will communicate these symptoms with Dr. Moss. Addendum: Poc[place]ontas from [employer] [place] office - may be related to orthostatic hypotension, she will be speaking to cardiology. BORER BORER BORER * Assessment & Plan Note - Thomas Hinojosa DO - 03/12/2023 9:31 AM CSTAssociated Problem(s): Cystoid macular edema of both eyes She is currently on durezol qid right eye (OD)- there has been limited improvement on OCT, however given the persistence of these findings, these are likely lamellar changes. Can begin to taper off the durezol weekly and will re- evaluate in 6 weeks off the drops. Vision get blurry as day goes on, cause unclear. Recommend observation. BORER BORER BORER documented in this encounter Plan of Treatment Not on file documented as of this encounter Procedures Procedure Name Priority Date/Time Associated Diagnosis Comments OCT, RETINA - OU - BOTH EYES Routine 03/12/2023 9:41 AM JIG BORER Cystoid macular edema of both eyes documented in this encounter Results * OCT, Retina - OU - Both Eyes (03/12/2023 9:41 AM JIG BORER) Anatomical Region Laterality Modality Head Optical Coherenc e Tomography Narrative 03/12/2023 9:41 AM JIG BORER Right Eye Quality was good. Scan locations included subfoveal. Progression has been stable. Left Eye Quality was good. Scan locations included subfoveal. Progression has been stable. 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 documented in this encounter Discontinued Medications Medication Sig Discontinue Reason Start Date End Da te difluprednate (DUREZOL) 0.05 % dropsIndications:Cysto id macular edema of both eyes Administer 1 drop into the right eye 4 (four) times a day 01/29/2023 03/12/2023 documented as of this encounter Eye Exam Visual Acuity (Snellen - Linear) Right eye Left eye Dist sc 20/90 +2 20/20 Dist ph sc 20/25 +1 Tonometry (Tonopen, 9:09 AM) Right eye Left eye Pressure 21 9 Pupils Dark Light Shape React APD Right eye 5 4 Round Brisk None Left eye 4.5 4 Round Brisk None Neuro/Psych Oriented x3: Yes Mood/Affect: Normal Dilation Both eyes: 1.0% Mydriacyl @ 9:09 AM External Exam Right eye Left eye External Normal Normal Slit Lamp Exam Right eye Left eye Lids/Lashes Normal Normal Conjunctiva/Sclera White and quiet White and gael et Cornea Clear Clear Anterior Chamber Deep and quiet Deep and quiet Iris Round and reactive Round and erasmo ctive Lens Posterior chamber in traocular lens Posterior chamber intraocular lens Anterior Vitreous s/p ppV s/p PPV Fundus Exam Right eye Left eye Posterior Vitreous no cell no cell Disc Normal Normal C/D Ratio 0.3 0.3 Macula Normal Normal Vessels Normal Normal Periphery drusen, drusen Care Teams Instant Print Operator Relationship Specialty Start Date End Date Sylvia Dawson PA [address] [facility] [place] [address] PCP - General Internal Medicine 01/05/20 Erica Rodrigues MD [address] [place] [address] Radiation Oncologist Radiation Oncology 10/25/18 Gasper Kaba MD [address] [place] [address] Surgeon Surgical Oncology 10/25/18 Brandy Aguirre, CARINA [address] [place] [address] Nurse Practitioner Certified Clinical Nurse Specialist 10/25/18 Jo-Ann Morrow, PhD [address] [place] [address] Nurse Practitioner Radiation Oncology 10/25/18 Christina Louis NAVAL INSPECTOR [address] [place] [address] Nurse Practitioner Medical Oncology 10/25/18 documented as of this encounter
--- OUTSIDE RECORDS SUMMARY | 2024-04-24 05:49 | XMS_ITS | Encounter Summary ---
Author Organization [facility] Address [address] [place] [address] Care Team Providers Care Market Development Executive Name Role Phone Erica Rodrigues MD Unavailable Gasper Kaba MD Unavailable [phone] Brandy Aguirre LOOP CUTTER Unavailable [phone] Jo-Ann Morrow PhD Unavailable [phone] Christina Louis ED SPECIAL EDUCATION TEACHER Unavailable [phone] Sylvia Dawson Primary Care Provider [phone] Reason for Visit * Reason Onset Date Comments Covid-19 Home Monitoring 01/06/2023 Encounter Details Date Type Department Care Team (Late st Contact Info) Description 01/06/2023 Telephone [facility] Accountable Care Organization [address] [place] [address] Gasper Edmonds RN [address] [place] [address] [address] [place] [address] Covid-19 Home Monitoring Social History Tobacco Use Types Packs/Day Years Used Date Smoking Tobacco: Never Passive Smoke Exposure: Never Smokeless Tobacco: Never Alcohol Use Standard Drinks/Week Comments Yes 1 (1 standard drink = 0.6 oz pur e alcohol) social AUDIT-C Answer Date Recorded Q1: How often do you have a drink containing alc ohol? Monthly or less 09/19/2022 Q2: How many drinks containi ng alcohol do you have on a typical day when you are drinking? 1 or 2 09/19/2022 Q3: How often do you have si x or more drinks on one occasion? 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 This patient has requested to opt out of the Paste Maker version of the COVID-19 home monitoringprogram. The patient is also aware of the phone number to call if they have further questions or iftheir symptoms get worse: . I am also manually removing the patient's assigned Paste Maker tasks (in the Patient To Do List activity). * Telephone Encounter - Gasper Edmonds RN - 01/06/2023 12:01 PM CDT COVID Home Monitoring lobby porter Call Patient questionnaire escalated for supervisor central supply due to: Cough Brief description of reason for call: pt reports worsening cough that is managed with meds. Pt states cough is waxing/waning. Pt denies needing virtual r/t cough. Pt denies any immediate needs - pt is comfortable monitoring symptoms - pt advised on availability of virtual visits - pt stopping program will be going over seas and will be unavailable. Pt requesting my chart message with covid- number. supervisor central supply of each of the following symptoms the patient reported (complete all that apply): Respiratory Distress: No Dehydration: No Fever: No Chest Pain: No Other symptoms: No Instructions provided to patient: pt reports worsening cough that is managed with meds. Pt states cough is waxing/waning. Pt denies needing virtual r/t cough. Pt denies any immediate needs - pt is comfortable monitoring symptoms - pt advised on availability of virtual visits - pt stopping program will be going over seas and will be unavailable. Pt requesting my chart message with covid-hm number. Follow-up Plan Provided to Patient: Continue to Self-Monitor.COVID-19 Home Monitoring Flowsheet Answers: Temp/Pulse Ox Symptom Monitoring documented in this encounter Plan of Treatment Not on file documented as of this encounter Visit Diagnoses Not on filedocumented in this encounter Additional Health Concerns Infection Onset Date Last Indicated Resolved Time COVID19 Comment:IP Review- Patient tested positive on home test on 12/27 after experiencing symptoms. 12/29/22 9:07 AM Valorie Baugh 12/29/2022 12/29/2022 01/08/2023 3:05 AM CDT documented as of this encounter Care Teams Market Development Executive Relationship Specialty Start Date End Date Sylvia Dwason PA [address] [place] [address] PCP - General Internal Medicine 01/05/20 Erica Rodrigues MD [address] [facility] [address] [place] [address] Radiation Oncologist Radiation Oncology 10/25/18 Gasper Kaba MD [address] [facility] [address] [place] [address] Surgeon Surgical Oncology 10/25/18 Brandy Aguirre CNS [address] [facility] [address] [place] [address] Nurse Practitioner Certified Clinical Nurse Specialist 10/25/18 Jo-Ann Morrow, PhD [address] [facility] [address] [place] [address] Nurse Practitioner Radiation Oncology 10/25/18 Christina Louis, ED SPECIAL EDUCATION TEACHER [address] [address] [place] [address] Nurse Practitioner Medical Oncology 10/25/18 documented as of this encounter
--- OUTSIDE RECORDS SUMMARY | 2024-04-24 05:49 | XMS_ITS | Encounter Summary ---
Author Organization [facility] Address [address] [facility] [address] [place] [address] Care Team Providers Care Asset Liability Analyst Name Role Phone Erica Rodrigues MD Unavailable Gasper Kaba MD Unavailable Brandy Aguirre T RAIL TURNER Unavailable [phone] Jo-Ann Morrow PhD Unavailable [phone] Christina Louis HEARING INSTRUMENT SPECIALIST Unavailable [phone] Sylvia Dawson Primary Care Provider [phone] Encounter Details Date Type Department Care Team (Late st Contact Info) Description 12/29/2022 Orders Only [facility] Family Medicine [address] [place] [address] Sylvia Dawson PA [address] [place] [address] Social History Tobacco Use Types Packs/Day Years [...] on file Legal Sex Female 3:42 AM FISH FRYER Gender Identity Not on file Sexual Orientation Not on file 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 Not on file Not on file documented as of this encounter Progress Notes * Coni Corbin LPN - 12/29/2022 4:26 PM CDT ERROR documented in this encounter Plan of Treatment [...] documented as of this encounter Care Teams Asset Liability Analyst Relationship Specialty Start Date End Date Sylvia Dawson PA [address] [facility] [place] [address] PCP - General Internal Medicine 01/05/20 Erica Rodrigues MD [address] [place] [address] Radiation Oncologist Radiation Oncology 10/25/18 Gasper Kaba MD [address] [place] [address] Surgeon Surgical Oncology 10/25/18 Brandy Aguirre CNS [address] [facility] [address] [place] [address] Nurse Practitioner Certified Clinical Nurse Specialist 10/25/18 Jo-Ann Morrow, PhD [address] [facility] [address] [place] [address] Nurse Practitioner Radiation Oncology 10/25/18 Christina Louis, HEARING INSTRUMENT SPECIALIST [address] [facility] [address] [place] [address] Nurse Practitioner Medical Oncology 10/25/18 documented as of this encounter
--- OUTSIDE RECORDS SUMMARY | 2024-04-24 05:49 | XMS_ITS | Encounter Summary ---
Author Organization [facility] Healthcare Address [address] [place] [address] Care Team Providers Care Instructor Physical Name Role Phone Erica Rodrigues MD Unavailable Gasper Kaba MD Unavailable [phone] Brandy Aguirre FINISHED STOCK INSPECTOR Unavailable [phone] Jo-Ann Morrow PhD Unavailable [phone] Christina Louis BRINE SUPERVISOR Unavailable [phone] Sylvia Dawson Primary Care Provider [phone] Reason for Referral * Diagnostic Imaging (Routine) - Closed Specialty Diagnoses / Procedures [facility] To Contact Radiology Diagnoses Cerebral aneurysm, nonruptured Procedures IR Angio Selective Carotid FINISHED STOCK INSPECTOR Right Abdiaziz Moss MD [address] [facility] [address] [place] [address] Phone: tel: fax: [address] [phone] Referral ID Status Reason Start Date Expiration Date Visits Re quested Visits Authorized [id number] Closed 11/19/2022 12/19/2023 1 1 Reason for Visit * Diagnostic Imaging (Routine) - Closed Specialty Diagnoses / Procedures Referred By [facility] Referred To Contact Radiology Diagnoses Cerebral aneurysm, nonruptured Procedures IR Angio Selective Carotid FINISHED STOCK INSPECTOR Right Osbun, Abdiaziz W., MD [address] [place] [address] Phone: tel: fax: [address] [phone] Referral ID Status Reason Start Date Expiration Date Visits Re quested Visits Authorized [id number] Closed 11/19/2022 12/19/2023 1 1 Encounter Details Date Type Department Care Team (Late st Contact Info) Description 01/28/2023 8:56 AM CDT - 01/28/2023 11:59 PM CDT Hospital Encounter [facility] Interventional Radiology [address] [place] [address] [phone] Abdiaziz Moss MD [address] [place] [address] Ney Moreira MD [address] [place] [address] Cerebral aneurysm, nonruptured Discharge Disposition: Discharge to [...] on file Legal Sex Female 3:42 AM [employer] PE[employer]ER Gender Identity Not on file Sexual Orientation Not on file 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 Not on file Not on file Not on file documented as of this encounter Last Filed Vital Signs Vital Sign Reading Time Taken Comments Blood Pressure 149/80 01/28/2023 11:30 AM CDT Pulse 56 01/28/2023 11:30 AM CDT Temperature 36.9 ??C (98.4 ??F) 01/28/2023 10:45 AM C DT Respiratory Rate 10 01/28/2023 10:55 AM CDT Oxygen Saturation 96% 01/28/2023 11:30 AM CDT Inhaled Oxygen Concentration - - Weight 63.5 kg (140 lb) 01/28/2023 9:20 AM CDT Height 160 cm (5' 3 ) 01/28/2023 9:20 AM CDT Body Mass Index 24.8 01/28/2023 9:20 AM CDT documented in this encounter Discharge Instructions * Discharge Instructions* Adrian Gibson MD - 01/28/2023 10:52 AM CDT Neurointerventional Radiology Outpatient Discharge Instructions Diagnosis: cerebral aneurysm, nonruptured Procedure: cerebral angiography Discharge Instructions: Do not drive, operate machinery, or drink alcohol until tomorrow. Do not smoke today. Stay with a responsible adult tonight. Do not make any legal or important decisions for 24 hours. Do not take any additional pain medications, sleeping pills, or sedatives unless approved by your doctor. Special Instructions: Activity: [] Normal [] Avoid stairs [x] No heavy lifting for 24 hours Diet: [] No restrictions [] Liquid diet [] Drink plenty of fluids [x] Previous diet ordered by your doctor Medications: [] None required [x] Continue present medications [] Discontinue , continue other current medications [] Prescription given Site care: [x] Do not shower for 24 hours [x] Do not bathe or otherwise submerge wound after 5 days [x] Keep area clean and dry [] Change dressing Follow up care: [x] No appointment necessary, return only if problems develop [] Please return on at [] Please call to schedule a follow up appointment at [phone] [x] Please call for any of the following: [x] Any questions or problems [x] Hematoma (extreme bruising at the site) [x] Drainage from site [x] Fever [x] Bleeding If between Thursday-Thursday 7:30am-4:00pm, call [phone]. Otherwise, call [phone] and ask forthe on-call endovascular surgical neuroradiology (ESN) fellow. documented in this encounter Medications at Time of Discharge acetaminophen (TYLENOL) 325 mg tablet Take 2 tablets (650 mg total) by mouth every 6 (six) hours as needed for pain Do not exceed 4000 mg of acetaminophen in a 24 hour period. 2 aspirin 81 mg enteric coated tablet Take 1 tablet (81 mg total) by mouth daily 90 tablet 3 3 famotidine-Ca carb-mag hydrox (PEPCID COMPLETE) 10-800-165 mg chewable tabletIndications:H eartburn Take 1 tablet by mouth daily as needed for heartburn magnesium gluconate 200 mg tabletIndications:h ypomagnesemia Take 1 tablet (200 mg total) by mouth as needed sleep multivitamin with minerals tabletIndications:V itamin Deficiency Prevention Take 1 tablet by mouth every morning vit C-S-bnhvmw-zinc-lut ein (PreserVision Lutein) 226-90-0.8-5 mg capsuleIndications: Eye support Take 1 tablet by mouth 2 (two) times a day guaiFENesin-codeine (GUAITUSS AC) liquid 100-10 mg/5 mLIndications:Cough Take 5-10 mL by mouth every 4 (four) hours as needed for cough 180 mL 3 02/05/20 23 atenoloL (TENORMIN) 25 mg tablet TAKE 1 TABLET(25 MG) BY MOUTH DAILY 90 tablet 1 3 03/19/20 23 butalbital-acetamin cshll-wpsespsj-hmpa ine (FIORICET WITH CODEINE) 56-684-82-30 mg per capsuleIndications: Nonintractable headache, unspecified chronicity pattern, unspecified headache type TAKE 1 CAPSULE BY MOUTH EVERY 4 HOURS NEEDED FOR HEADACHE 20 capsule 3 04/01/20 23 difluprednate (DUREZOL) 0.05 % dropsIndications:Cy stoid macular edema of both eyes Administer 1 drop into the right eye 3 (three) times a day for 14 days, THEN 1 drop 2 (two) times a day for 14 days, THEN 1 drop daily for 14 days. 10 mL 3 3 01/30/20 23 ezetimibe (ZETIA) 10 mg tabletIndications:M ixed hyperlipidemia Take 1 tablet (10 mg total) by mouth daily 30 tablet 11 3 04/01/20 23 FLUoxetine (PROzac) 20 mg capsuleIndications: Vasomotor symptoms due to menopause TAKE 1 CAPSULE(20 MG) BY MOUTH TWICE DAILY 180 capsule 1 3 04/01/20 23 folic acid (FOLVITE) 1 mg tablet Take 2 tablets (2,000 mcg total) by mouth daily 180 tablet 3 3 09/03/19 24 hydroCHLOROthiazide (HYDRODIURIL) 12.5 mg tablet TAKE 1 TABLET(12.5 MG) BY MOUTH DAILY 90 tablet 1 3 03/19/20 23 lisinopriL (PRINIVIL,ZESTRIL) 40 mg tabletIndications:H ypertension, essential Take 1 tablet (40 mg total) by mouth daily 90 tablet 4 3 07/23/19 24 methotrexate 2.5 mg tabletIndications:a utoimmune disease Take 8 tablets on 96 tablet 2 3 05/14/19 24 sulfaSALAzine EN (AZULFIDINE EN) 500 mg EC tablet TAKE 2 TABLETS(1000 MG) BY MOUTH TWICE DAILY 360 tablet 3 04/30/19 24 valACYclovir (Valtrex) 500 mg tabletIndications:R ecurrent cold sores Take 1 tablet (500 mg total) by mouth daily 90 tablet 2 2 06/10/19 24 documented as of this encounter Discharge Disposition Disposition Code Departure Means Destination Discharge to home or self care documented in this encounter Miscellaneous Notes * Post-Procedure Note - Adrian Gibson MD - 01/28/2023 10:30 AM CDT Endovascular Neurosurgery/Interventional Neuroradiology Brief Post Procedure Note Attending: Abdiaziz Moss MD Painting And Coating Worker: Adrian Gibson MD, Ney Moreira MD, Melecio Tinajero DO Sedation/Anesthesia: Mod Sedation Medications: Heparin 3000U IA, Nitroglycerin 200mcg IA, Verapamil 2.5mg IA IV Versed, IV Fentanyl Contrast: Visi-270 Pre-Op Diagnosis: cerebral aneurysm, nonruptured Post-Op Diagnosis: cerebral aneurysm, nonruptured Procedure Performed: DSA - RCCA and LCCA 3DRA USG guided vascular access Closure device Access Site: Right femoral Procedure Findings: Enlargement of right proximal ICA to normal caliber with proximal portion of the stent at stable caliber, no endoleak or stenosis of the right ICA stent. Left ICA stent in good place with no endoleak or stenosis Anterior communicating artery aneurysm with WEB device in place appears without residual or recurrent aneurysm Access Site Closure: 5 Fr Celt ACD Closure Device Complications: None Estimated Blood Loss: <20 ml Specimens: None Condition: Stable Full report to follow. * Pre-Procedure Note - Adrian Gibson MD - 01/28/2023 10:30 AM CDT PRE-SEDATION ASSESSMENT/H&P Patient is a 62 y.o. female with chief complaint of prior history of anterior communicating artery treated with WEB. Procedure: IR ANGIO SELECTIVE CAROTID FINISHED STOCK INSPECTOR RIGHT Indications/History: 62 y.o. 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 She also has a history of bilateral internal carotid artery dissections and underwent bilateral cervicalICA on 04/09/22. She now returns for a diagnostic cerebral angiogram. She does complain of occasional discomfort to the right side of her neck moreso than the left side of the neck. She wonders if this is related to her stents/dissections. She has had some vision problems in her right eye associated with a recent need for vitrectomy. She has not had any weakness or sensation changes. PMH: Patient Active Problem List Diagnosis Date Noted Obstructive sleep apnea 06/19/2022 Brain aneurysm 06/16/2022 History of right common carotid artery stent placement 05/04/2022 Chronic tension-type headache, not intractable 05/04/2022 BMI 24.0-24.9, adult 04/22/2022 Aneurysm (CMS/HCC) (HCC) 04/09/2022 Flu vaccine need 02/28/2022 Need for Tdap vaccination 02/28/2022 Daytime sleepiness 02/28/2022 Annual physical exam 02/28/2022 Recurrent cold sores 02/28/2022 Hyperglycemia 02/28/2022 Bronchiolitis PCO (posterior capsule opacification), bilateral 08/27/2021 Pattern dystrophy of macula 08/27/2021 Cystoid macular edema of both eyes 08/19/2021 Pain in both feet 07/05/2021 Breast mass 04/02/2021 Moderate episode of recurrent major depressive disorder (HCC) 02/27/2021 Fatigue 08/22/2020 Tachycardia 06/11/2020 Cough 06/11/2020 Hypertension, essential 06/04/2020 History of COVID-19 05/30/2020 Atrial tachycardia 03/13/2020 Mixed hyperlipidemia 01/06/2020 Lumbar back pain 01/06/2020 History of breast cancer 01/18/2019 Postmenopausal bleeding 11/08/2018 Diplopia 03/16/2018 Cervical high risk HPV (human papillomavirus) test positive 02/24/2018 Encounter for follow-up surveillance of breast cancer 02/09/2018 Scleritis and episcleritis of left eye 12/03/2017 High risk medication use 01/30/2016 Rheumatoid arthritis with negative rheumatoid factor ([facility]) 07/24/2015 Headache 01/25/2015 Malignant neoplasm of central portion of right breast in female, estrogen receptor positive ([facility]) 10/27/2014 Migraine with aura 08/20/2011 Disorder of binocular movement 06/10/2011 Visual discomfort 06/10/2011 Cerebral arterial aneurysm 10/24/2010 History of Sedation/Anesthesia Complications: No History of Difficult Airway: No HISTORY PSH Past Surgical History: Procedure Laterality Date ANGIO SELECTIVE INTERNAL CAROTID LEFT Left 03/12/2022 BREAST BIOPSY Left 2003 benign BREAST LUMPECTOMY Right 2014 Invasive ductal carcinoma CEREBRAL ANEURYSM REPAIR 06/16/2022 COLONOSCOPY 03/06/2020 CYST REMOVAL ENDOMETRIAL ABLATION 02/2007 EYE SURGERY HYSTEROSCOPY PORT PLACEMENT CHEST >5 YEARS N/A 01/17/2015 PORT REMOVAL N/A 04/10/2015 RHINOPLASTY 1985 THYROIDECTOMY, PARTIAL Left 1998 Dr. Demetris Aguilar TONSILLECTOMY 1983 TUBAL LIGATION 02/2007 VITRECTOMY Right 09/23/2022 for CME Social History: Social History Tobacco Use Smoking status: Never Passive exposure: Never Smokeless tobacco: Never Substance and Sexual Activity Drug use: Yes Types: Alcohol Comment: 2 drinks per month Sexual activity: Defer Partners: Male control/protection: Post-menopausal, Tubal Ligation Alcohol Use: Not At Risk (09/19/2022) AUDIT-C Frequency of Alcohol Consumption: Monthly or less Average Number of Drinks: 1 or 2 Frequency of Binge Drinking: Never Family History: Family History Problem Relation Age [...] Hyperthermia Neg Hx Pseudochol deficiency Neg Hx REVIEW OF SYSTEMS: Review of systems per HPI and otherwise all other systems are negative MEDICATIONS Current Meds: Current Outpatient Medications: acetaminophen (TYLENOL) 325 mg [...] tablet (81 mg total) by mouth every morning 06/2022 brain aneurysm), Disp: 90 tablet, Rfl: 3 atenoloL (TENORMIN) 25 mg tablet, TAKE 1 TABLET(25 MG) BY MOUTH DAILY, Disp: 90 tablet, Rfl: 1 chywstmwjw-kevjycthypgag-ojhmpdfc-codeine (FIORICET WITH CODEINE) 39-045-59-30 mg per capsule, TAKE1 CAPSULE BY MOUTH EVERY 4 HOURS NEEDED FOR HEADACHE, Disp: 20 capsule, Rfl: 0 difluprednate (DUREZOL) 0.05 % drops, Administer 1 drop into the right eye 3 (three) times a day for 14 days, THEN 1 drop 2 (two) times a day for 14 days, THEN 1 drop daily for 14 days. (Patient not taking: Reported on 01/28/2023), Disp: 10 mL, Rfl: 3 ezetimibe (ZETIA) 10 mg tablet, Take 1 tablet (10 mg total) by mouth daily (Patient taking differently: Take 1 tablet (10 mg total) by mouth every morning), Disp: 30 tablet, Rfl: 11 famotidine-Ca carb-mag hydrox (PEPCID COMPLETE) 10-800-165 mg chewable tablet, Take 1 tablet by mouth daily as needed for heartburn, Disp: , Rfl: FLUoxetine (PROzac) 20 mg capsule, TAKE 1 CAPSULE(20 MG) BY MOUTH TWICE DAILY, Disp: 180 capsule, Rfl: 1 folic acid (FOLVITE) 1 mg tablet, Take 2 tablets (2,000 mcg total) by mouth daily (Patient taking differently: Take 2 tablets (2,000 mcg total) by mouth every morning), Disp: 180 tablet, Rfl: 3 guaiFENesin-codeine (GUAITUSS AC) liquid 100-10 mg/5 mL, Take 5-10 mL by mouth every 4 (four) hoursas needed for cough (Patient not taking: Reported on 01/28/2023), Disp: 180 mL, Rfl: 0 hydroCHLOROthiazide (HYDRODIURIL) 12.5 mg tablet, TAKE 1 TABLET(12.5 MG) BY MOUTH DAILY (Patient taking differently: Take 1 tablet (12.5 mg total) by mouth daily as needed (when BP is elevated for a few days)), Disp: 90 tablet, Rfl: 1 lisinopriL (PRINIVIL,ZESTRIL) 40 mg tablet, Take 1 tablet (40 mg total) by mouth daily (Patient taking differently: Take 1 tablet (40 mg total) by mouth every morning), Disp: 90 tablet, Rfl: 4 magnesium gluconate 200 mg tablet, Take 1 tablet (200 mg total) by mouth nightly sleep, Disp: , Rfl: methotrexate 2.5 mg tablet, Take 8 tablets on (Patient taking differently: Take by mouth every 7 days Take 8 tablets on ), Disp: 96 tablet, Rfl: 2 multivitamin with minerals tablet, Take 1 tablet by mouth every morning, Disp: , Rfl: sulfaSALAzine EN (AZULFIDINE EN) 500 mg EC tablet, TAKE 2 TABLETS(1000 MG) BY MOUTH TWICE DAILY, Disp: 360 tablet, Rfl: 0 valACYclovir (Valtrex) 500 mg tablet, Take 1 tablet (500 mg total) by mouth daily (Patient taking differently: Take 1 tablet (500 mg total) by mouth every morning), Disp: 90 tablet, Rfl: 2 vit O-H-hhiken-zinc-lutein (PreserVision Lutein) 226-90-0.8-5 mg capsule, Take 1 tablet by mouth 2 (two) times a day, Disp: , Rfl: Home Meds: HOME MEDICATIONS : acetaminophen (TYLENOL) 325 mg tablet aspirin 81 mg enteric coated tablet atenoloL (TENORMIN) 25 mg tablet jijmbnduxj-zrqqyrpicukbq-soxlxqpk-codeine (FIORICET WITH CODEINE) 21-584-55-30 mg per capsule difluprednate (DUREZOL) 0.05 % drops ezetimibe (ZETIA) 10 mg tablet famotidine-Ca carb-mag hydrox (PEPCID COMPLETE) 10-800-165 mg chewable tablet FLUoxetine (PROzac) 20 mg capsule folic acid (FOLVITE) 1 mg tablet guaiFENesin-codeine (GUAITUSS AC) liquid 100-10 mg/5 mL hydroCHLOROthiazide (HYDRODIURIL) 12.5 mg tablet lisinopriL (PRINIVIL,ZESTRIL) 40 mg tablet magnesium gluconate 200 mg tablet methotrexate 2.5 mg tablet multivitamin with minerals tablet sulfaSALAzine EN (AZULFIDINE EN) 500 mg EC tablet valACYclovir (Valtrex) 500 mg tablet vit J-X-nvudzv-zinc-lutein (PreserVision Lutein) 226-90-0.8-5 mg capsule Allergies: Allergies Allergen Reactions Adhesive Hives Paper tape OK Cyclizine Other (See comments) and Hallucinations Marezine about 1982 Reaction: Urinary retention Vitals: Vitals: 01/28/23 0915 01/28/23 0920 BP: 152/86 Pulse: 62 Resp: 18 Temp: 36.4 ??C (97.6 ??F) TempSrc: Temporal SpO2: 96% Weight: 63.5 kg (140 lb) Height: 160 cm (5' 3 ) LABS Pertinent Labs: IMAGING Diagnostic cerebral angiogram on 06/16/22 with successful WEB Placement in anterior communicatin artery aneurysm. PERTINENT PHYSICAL EXAM Neurologic: A&Ox3, no PD, EOMI, face=, poor visual acuity in right eye, moves all 4 extremitiesantigravity to command, 1+ radial pulse in right distal volar forearm and right anatomical snuffbox Assessment:Yesika Denney [phone] Room/bed info not found 62 y.o. female h/o unruptured ACommA Aneurysm (s/p WEB embolization 06/16/21) and bilateral ICA dissection (s/p bilateral ICA stenting on 04/09/22) who now returns for diagnostic cerebral angiogram. -to neuroIR for diagnostic cerebral angiogram Airway Exam: normal ASA Classification:Class 2: Patient with mild systemic disease Sedation Plan: Mod Sedation Adjunctive Procedures: NONE PO status: Last PO: NPO since midnight Benefits, risks and alternatives of procedure and planned sedation have been discussed with the patient and/or their industrial relations representative. All questions answered and they agree to proceed. documented in this encounter Plan of Treatment Not on file documented as of this encounter Procedures Procedure Name Priority Date/Time Associated Diagnosis Comments ANGIO SELECTIVE CAROTID FINISHED STOCK INSPECTOR RIGHT Schedule Routine, Read Routine (OP Routine) 01/28/2023 10:53 AM CDT Cerebral aneurysm, nonruptured documented in this encounter Results * IR Angio Selective Carotid FINISHED STOCK INSPECTOR Right (01/28/2023 10:53 AM CDT) Anatomical Region Laterality Modality Neck Right Radio Fluoroscop y 01/28/2023 5:05 PM CDT Impressions 01/29/2023 5:51 PM CDT 1. ??Satisfactory occlusion of the anterior communicating artery aneurysm treated with a WEB device and an angiographically visible collection of contrast within the marker recess consistent with WEB occlusion scale B. 2. Interval expansion of the proximal right internal carotid artery luminal diameter with patent overlapping stents within the right internal carotid artery. ??No in-stent stenosis identified. 3. ??Short segment occlusion of the right radial artery identified on ultrasound. ??The procedure was performed using right femoral approach. PLAN: 1) Continue aspirin 81 mg 2) Return in 1 year for noninvasive imaging followup of the treated anterior communicating artery aneurysm. These results were discussed with the patient after the conclusion of the procedure. Dictated by: Ney Moreira MD The radiology attending physician has personally reviewed this study, and had reviewed and/or edited this written report and agrees with it. Electronically signed by: Abdiaziz Moss M.D. Narrative 01/29/2023 5:51 PM CDT DIAGNOSTIC CEREBRAL ANGIOGRAM CLINICAL INDICATION: Patient is a 62-year-old female presenting with an incidentally discovered anterior communicating artery aneurysm in 2009 treated with WEB device 06/17/2022. ??Patient also has a history of right internal carotid artery dissection status post surpass stent and LVIS stent placement in March 2022. ??The patient presents for diagnostic cerebral angiogram for follow-up of her treated anterior communicating artery aneurysm. PROCEDURE: 1. ??Cerebral angiography: Right internal carotid artery, left internal carotid artery, right femoral artery injections 2. ??3D reconstructions 3. ??Ultrasound-guided vascular access 4. ??Hemostatic device placement ATTENDING SURGEON: Abdiaziz Moss MD. He was present for the entire procedure. ASSISTING SURGEON(S): MD Adrian Kiser MD Garret Carpenter, ANESTHESIA: Local in the right forearm with 1% Lidocaine. Conscious sedation with Versed and Fentanyl was given by the nurse under the supervision of the attending interventional neuroradiologist. Pre-, intra-, and post-conscious sedation monitoring records are available in the chart. Total monitored sedation time was 30 minutes. MEDICATIONS: Local anesthesia: 1% Lidocaine SQ Sedation and Analgesia: Versed IV, Fentanyl IV MATERIALS: 18 G Single wall needle 5 Fr Meritt Prelude sheath 3mm J wire 5 Fr vertebral catheter Terumo Glidewire Celt closure device CONTRAST: Visipaque 270 100 mL TECHNIQUE: Prior to the procedure, the technical aspects of the procedure, as well as benefits, potential risks and alternate options, were explained to the patient. Specifically, the risks of cerebral infarction, hemorrhage, weakness, paralysis, sensory changes, vision decline/blindness, cranial nerve palsy, facial pain, anaphylaxis, renal failure, access site hematoma, arterial dissection, arterial pseudoaneurysm, arteriovenous fistula were discussed with the patient in person. Informed consent was obtained. After informed consent was obtained, the patient was brought to the angiography suite. Moderate sedation (intravenous fentanyl and midazolam) was administered under the direction of the attending physician with continuous monitoring by a trained nurse specialist independent of those performing the procedure. Total monitored sedation time was 30 minutes. Ultrasound survey of the right radial artery demonstrated short segment occlusion of the distal right radial artery within the forearm. ??There are brisk pulses and a pulsatile vessel identified in the distal wrist likely backfilling from the palmar arch. ??Given the short segment occlusion of the right radial artery, the decision was made to pursue femoral access. The patient was prepared and draped in the standard sterile fashion. The femoral head was localized by fluoroscopy. Buffered 1% lidocaine was infiltrated into the subcutaneous soft tissues overlying the planned site of vascular access, and time was allotted for good anesthetic effect. The right femoral artery was punctured using a single-wall needle under real-time ultrasound guidance. Ultrasound images demonstrated a patent vessel and were stored to PACS. A 5 Guatemalan sheath was inserted over a 3 mm J wire and connected to a regulated pressurized infusion of heparinized saline. A 5 Guatemalan vertebral catheter was introduced over the wire, then used in conjunction with a glide to select the right and left common carotid arteries. In each selected vessel, contrast was injected for imaging in multiple projections. Images of the cervical and cranial vessels were obtained for interpretation. 3D ROTATIONAL ANGIOGRAPHY OF THE left common carotid artery: Rotational angiography was also performed from the guiding catheter in the left common carotid artery for better delineation of the treated anterior communicating artery aneurysm. Three-dimensional angiographic images were processed on an independent workstation, and volume-rendered three-dimensional images were produced and reviewed by the attending physician. The catheter was then withdrawn to near the arterial access site, where angiography was performed. The catheter was then removed. Hemostasis was achieved after sheath removal by placement of an Celt closure device. Provoking maneuvers were used to ensure hemostasis. There were no immediate complications related to the procedure. FINDINGS: RIGHT COMMON CAROTID ARTERY, CERVICAL: There are 2 overlapping stents present within the proximal right internal carotid artery to treat a prior internal carotid artery dissection. ??There is interval increase in size of the internal carotid artery diameter with the proximal portion of the stent now opposing the posterior wall of the internal carotid artery. ??Although there is decreased opposition of the proximal aspect of the stent with the lumen, there is no evidence of endoleak. ??The stents are widely patent with no evidence of in-stent stenosis. The bifurcation is smooth, without irregularity, calcification, or stenosis. ??There is normal opacification of right cervical ECA branches. RIGHT COMMON CAROTID ARTERY, CEREBRAL: There is no evidence of aneurysm, focal stenosis, or early draining vein. Again identified is a hypoplastic right A1 segment. No posterior communicating artery is identified. LEFT COMMON CAROTID ARTERY, CERVICAL: The bifurcation is smooth, without irregularity, calcification, or stenosis with respect to the distal left ICA. ??There is normal opacification of left cervical ECA branches. LEFT COMMON CAROTID ARTERY, CEREBRAL: There is satisfactory occlusion of the anterior communicating artery aneurysm treated with a WEB device with an angiographically visible collection of contrast within the marker recess. There is robust cross flow across the anterior communicating artery. A posterior communicating artery is identified. ??There is no evidence of focal stenosis or early draining vein. 3D ROTATIONAL ANGIOGRAPHY OF THE LEFT INTERNAL CAROTID ARTERY: 3D Rotational angiography with volume-rendered three-dimensional reconstruction on an independent workstation demonstrated the above findings. COMPLICATIONS: There were no immediate complications. 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 Patient also has a history of right internal carotid artery dissection status post surpass stent and LVIS stent placement in March 2022. The patient presents for diagnostic cerebral angiogram for follow-up of her treated anterior communicating artery aneurysm. PROCEDURE: 1. Cerebral angiography: Right internal carotid artery, left internal carotid artery, right femoral artery injections 2. 3D reconstructions 3. Ultrasound-guided vascular access 4. Hemostatic device placement ATTENDING SURGEON: Abdiaziz Moss MD. He was present for the entire procedure. ASSISTING SURGEON(S): MD Adrian Kiser MD Garret Carpenter, ANESTHESIA: Local in the right forearm with 1% Lidocaine. Conscious sedation with Versed and Fentanyl was given by the nurse under the supervision of the attending interventional neuroradiologist. Pre-, intra-, and post-conscious sedation monitoring records are available in the chart. Total monitored sedation time was 30 minutes. MEDICATIONS: Local anesthesia: 1% Lidocaine SQ Sedation and Analgesia: Versed IV, Fentanyl IV MATERIALS: 18 G Single wall needle 5 Fr Meritt Prelude sheath 3mm J wire 5 Fr vertebral catheter Terumo Glidewire Celt closure device CONTRAST: Visipaque 270 100 mL TECHNIQUE: Prior to the procedure, the technical aspects of the procedure, as well as benefits, potential risks and alternate options, were explained to the patient. Specifically, the risks of cerebral infarction, hemorrhage, weakness, paralysis, sensory changes, vision decline/blindness, cranial nerve palsy, facial pain, anaphylaxis, renal failure, access site hematoma, arterial dissection, arterial pseudoaneurysm, arteriovenous fistula were discussed with the patient in person. Informed consent was obtained. After informed consent was obtained, the patient was brought to the angiography suite. Moderate sedation (intravenous fentanyl and midazolam) was administered under the direction of the attending physician with continuous monitoring by a trained nurse specialist independent of those performing the procedure. Total monitored sedation time was 30 minutes. Ultrasound survey of the right radial artery demonstrated short segment occlusion of the distal right radial artery within the forearm. There are brisk pulses and a pulsatile vessel identified in the distal wrist likely backfilling from the palmar arch. Given the short segment occlusion of the right radial artery, the decision was made to pursue femoral access. The patient was prepared and draped in the standard sterile fashion. The femoral head was localized by fluoroscopy. Buffered 1% lidocaine was infiltrated into the subcutaneous soft tissues overlying the planned site of vascular access, and time was allotted for good anesthetic effect. The right femoral artery was punctured using a single-wall needle under real-time ultrasound guidance. Ultrasound images demonstrated a patent vessel and were stored to PACS. A 5 Guatemalan sheath was inserted over a 3 mm J wire and connected to a regulated pressurized infusion of heparinized saline. A 5 Guatemalan vertebral catheter was introduced over the wire, then used in conjunction with a glide to select the right and left common carotid arteries. In each selected vessel, contrast was injected for imaging in multiple projections. Images of the cervical and cranial vessels were obtained for interpretation. 3D ROTATIONAL ANGIOGRAPHY OF THE left common carotid artery: Rotational angiography was also performed from the guiding catheter in the left common carotid artery for better delineation of the treated anterior communicating artery aneurysm. Three-dimensional angiographic images were processed on an independent workstation, and volume-rendered three-dimensional images were produced and reviewed by the attending physician. The catheter was then withdrawn to near the arterial access site, where angiography was performed. The catheter was then removed. Hemostasis was achieved after sheath removal by placement of an Celt closure device. Provoking maneuvers were used to ensure hemostasis. There were no immediate complications related to the procedure. FINDINGS: RIGHT COMMON CAROTID ARTERY, CERVICAL: There are 2 overlapping stents present within the proximal right internal carotid artery to treat a prior internal carotid artery dissection. There is interval increase in size of the internal carotid artery diameter with the proximal portion of the stent now opposing the posterior wall of the internal carotid artery. Although there is decreased opposition of the proximal aspect of the stent with the lumen, there is no evidence of endoleak. The stents are widely patent with no evidence of in-stent stenosis. The bifurcation is smooth, without irregularity, calcification, or stenosis. There is normal opacification of right cervical ECA branches. RIGHT COMMON CAROTID ARTERY, CEREBRAL: There is no evidence of aneurysm, focal stenosis, or early draining vein. Again identified is a hypoplastic right A1 segment. No posterior communicating artery is identified. LEFT COMMON CAROTID ARTERY, CERVICAL: The bifurcation is smooth, without irregularity, calcification, or stenosis with respect to the distal left ICA. There is normal opacification of left cervical ECA branches. LEFT COMMON CAROTID ARTERY, CEREBRAL: There is satisfactory occlusion of the anterior communicating artery aneurysm treated with a WEB device with an angiographically visible collection of contrast within the marker recess. There is robust cross flow across the anterior communicating artery. A posterior communicating artery is identified. There is no evidence of focal stenosis or early draining vein. 3D ROTATIONAL ANGIOGRAPHY OF THE LEFT INTERNAL CAROTID ARTERY: 3D Rotational angiography with volume-rendered three-dimensional reconstruction on an independent workstation demonstrated the above findings. COMPLICATIONS: There were no immediate complications. IMPRESSION: 1. Satisfactory occlusion of the anterior communicating [...] procedure was performed using right femoral approach. PLAN: 1) Continue aspirin 81 mg 2) Return in 1 year for noninvasive imaging followup of the treated anterior communicating artery aneurysm. These results were discussed with the patient after the conclusion of the procedure. Dictated by: Ney Moreira MD The radiology attending physician has personally reviewed this study, and had reviewed and/or edited this written report and agrees with it. Electronically signed by: Abdiaziz Moss M.D. us Abdiaziz Moss MD IMG IR PROCEDURES Final Resul t documented in this encounter Visit Diagnoses Diagnosis Cerebral aneurysm, nonruptured documented in this encounter Administered Medications Inactive Administered Medications - up to 3 most recent administrations Medication Order MAR Action Action Date Dose Rate Site fentaNYL (SUBLIMAZE) preservative free injection intravenous, As needed, Starting on Thu01/28/23 at 1001, Intra-Op Given 01/28/2023 10:11 AM CDT 50 mcg Given 01/28/2023 10:01 AM CDT 50 mcg iodixanoL (VISIPAQUE) 270 mg iodine/mL injection As needed, Starting on Thu01/28/23 at 1053, Intra-Op Given 01/28/2023 10:53 AM CDT 100 mL lidocaine PF (XYLOCAINE) 10 mg/mL (1 %) preservative free injection As needed, Starting on Thu01/28/23 at 1013, Intra-Procedure (IR), Indications: Administration of Local AnesthesiaIndications:Administratio n of Local Anesthesia Given 01/28/2023 10:13 AM CDT 10 mL Right Groin midazolam (VERSED) 1 mg/mL injection As needed, Starting on Thu01/28/23 at 1001, Intra-Op Given 01/28/2023 10:11 AM CDT 1 mg Given 01/28/2023 10:01 AM CDT 1 mg documented in this encounter Orders Discharge Count Last Ordered Date First Orde red Date DISCHARGE PATIENT 1 01/28/2023 documented in this encounter Care Teams Instructor Physical Relationship Specialty Start Date End Date Sylvia Dawson PA [address] [place] [address] PCP - General Internal Medicine 01/05/20 Erica Rodrigues MD [address] [facility] [address] [place] [address] Radiation Oncologist Radiation Oncology 10/25/18 Gasper Kaba MD [address] [place] [address] Surgeon Surgical Oncology 10/25/18 Brandy Aguirre, FINISHED STOCK INSPECTOR [address] [place] [address] Nurse Practitioner Certified Clinical Nurse Specialist 10/25/18 Jo-Ann Morrow, PhD [address] [place] [address] Nurse Practitioner Radiation Oncology 10/25/18 Christina Louis BRINE SUPERVISOR [address] [place] [address] Nurse Practitioner Medical Oncology 10/25/18 documented as of this encounter
--- OUTSIDE RECORDS SUMMARY | 2024-04-24 05:49 | XMS_ITS | Encounter Summary ---
Author Organization [facility] Address [address] [place] [address] Phone Care Team Providers Care Supervisor Intermediates Name Role Phone Erica Rodrigues MD Unavailable Gasper Kaba MD Unavailable Brandy Aguirre OUTDOOR STUDIES DIRECTOR Unavailable [phone] Jo-Ann Morrow PhD Unavailable [phone] Christina Louis PHOTONICS ENGINEERING TECHNOLOGIST Unavailable [phone] Sylvia Dawson Primary Care Provider [phone] Reason for Visit * Reason Onset Date Comments Blood Pressure Readings 02/24/2023 Encounter Details Date Type Department Care Team (Late st Contact Info) Description 02/24/2023 Telephone [facility] Cardiology [address] [facility] [address] [place] [address] [place] [address] Valorie Young MD [address] [facility] [address] [place] [address] Blood Pressure Readings Social History Tobacco Use Types Packs/Day Years [...] on file 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 Young to review. DRIVER * Telephone Encounter - Marley lAmeida RN - 02/25/2023 4:43 PM CST LMOR for patient regarding recommendations. Instructed patient to call office with questions. DRIVER * Telephone Encounter - Marley Almeida RN - 02/25/2023 4:42 PM CST Discussed with Dr. Young; Monitor blood pressure readings for the next 4-5 days and report readings and symptoms. DRIVER * Telephone Encounter - Marley Almeida RN - 02/24/2023 4:58 PM CST Spoke with patient. She wanted to report that since having a cerebral angiogram on 01/28/23 as follow up to her aneurysm repair, she has been experiencing episodes of orthostatic hypotension. She will have episodes whenshe goes from sitting to standing where she will have a pressure type headache, she will feel her vision darken she will sit back down. When she checks her blood pressure after an episode her blood pressure has dropped significantly, one episode blood pressure went from 122/78 sitting to 104 systolic with standing. She has had more significant drops but did not have her readings available at timeof call. She decreased her blood pressure medications for a few days but her blood pressure was going back up so she went back to her prescribed doses. She spoke with neurosurgery to see if there wasany connection with the angiogram they recommended that she call our office. Patient did have COVIDat the end of December. DRIVER * Telephone Encounter - Teressa Romo - 02/24/2023 2:02 PM CST Hector Pt calling and would like to speak to nurse today. She is getting ready to go on VAC and has had some crazy issues (bp up and down). Pt had covid a month ago. Blood pressure 142/92 today. DRIVER documented in this encounter Plan of Treatment Not on file documented as of this encounter Visit Diagnoses Not on filedocumented in this encounter Care Teams Supervisor Intermediates Relationship Specialty Start Date End Date Sylvia Dawson PA [address] [facility] [address] [place] [address] PCP - General Internal Medicine 01/05/20 Erica Rodrigues MD [address] [facility] [address] [place] [address] Radiation Oncologist Radiation Oncology 10/25/18 Gasper Kaba MD [address] [facility] [address] [facility] [address] [place] [address] Surgeon Surgical Oncology 10/25/18 Brandy Aguirre CNS [address] [facility] [address] [facility] [address] [place] [address] Nurse Practitioner Certified Clinical Nurse Specialist 10/25/18 Jo-Ann Morrow, PhD [address] [facility] [address] [place] [address] Nurse Practitioner Radiation Oncology 10/25/18 Christina Louis PHOTONICS ENGINEERING TECHNOLOGIST [address] [facility] [address] [place] [address] Nurse Practitioner Medical Oncology 10/25/18 documented as of this encounter
--- OUTSIDE RECORDS SUMMARY | 2024-04-24 05:49 | XMS_ITS | Encounter Summary ---
Author Organization [facility] Healthcare Address [address] [place] [address] Care Team Providers Care Director Sales And Marketing Name Role Phone Erica Rodrigues MD Unavailable Gasper Kaba MD Unavailable Brandy Aguirre IT SENIOR ANALYST Unavailable Jo-Ann Morrow PhD Unavailable [phone] Christina Louis [employer] Unavailable [phone] Sylvia Dawson Primary Care Provider [phone] Reason for Visit * Auth/Cert (Routine) Specialty Diagnoses / Procedures Referred By Contac t Referred To Contact Diagnoses JOSE (obstructive sleep apnea) JOSE (obstructive sleep apnea) [G47.33] Procedures UT OPEN IMPLTJ HPGLSL NRV NSTIM RA PG&RESPIR SENSOR INSERTION CRANIAL NERVE NEUROSTIMULATOR ELECTRODE ARRAY AND PULSE GENERATOR INSERTION CHEST WALL RESPIRATORY SENSOR ELECTRODE ARRAY AND PULSE GENERATOR Referral ID Status Reason Start Date Expiration Date Visits Re quested Visits Authorized [id number] 1 1 Encounter Details Date Type Department Care Team (Late st Contact Info) Description 03/20/2023 10:20 AM ADVISOR CONSULTANT - 03/20/2023 12:15 PM ADVISOR CONSULTANT Surgery [facility] Operating Room [address] Kayla AMAYA Aldana [address] Albin Pereyra MD [address] [place] [address] INSPIRE HYPOGLOSSAL NERVE STIMULATOR IMPLANT - INSERTION Surgery Details Date/Time Status Location OR Service Patient Class Case Class Case Type Trauma Case? 03/20/2023 10:[address] [facility] OR Otolaryngology Outpatient Elective Panel 1 Procedure LRB Anes Op Region Wound Class Comments INSPIRE HYPOGLOSSAL NERVE ST IMULATOR IMPLANT - INSERTION Right General Neck Class I - Clean INSERTION CHEST WALL RESPIRA TORY SENSOR ELECTRODE ARRAY AND PULSE GENERATOR Right General Chest Class I - Clean Surgeon Surgeon Role Service Panel Albin Pereyra MD Primary Otolaryngology 1 Andrae Prieto MD Resident - Rosalee hanna General Surgery 1 Case Notes 10/16/22 I called to set up Inspire with Dr. Pereyra. Yesika Mandujano wants to hold off for now. She has an appt on 10/21/22 to get an oral appliance and will trial that and call to set up surgery if it does not improve her JOSE. I made her aware her auth is valid until 04/05/23. She stated if she is not having improvement, she would be calling sooner than Mar. documented in this encounter Social History Tobacco Use Types Packs/Day Years [...] staff should administer the PHQ-9) 0 04/22/2022 Personal Safety Answer Date Recorded Have you ever been in or are you currently in a harmful physical or emotional relationship or is someone making you feel afraid or unsafe? 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 Not on file Not on file Not on file documented as of this encounter Last Filed Vital Signs Vital Sign Reading Time Taken Comments Blood Pressure 137/73 03/20/2023 11:05 AM ADVISOR CONSULTANT Pulse 53 03/20/2023 11:05 AM ADVISOR CONSULTANT Temperature 36.3 ??C (97.3 ??F) 03/20/2023 9:03 AM CS T Respiratory Rate 17 03/20/2023 11:05 AM ADVISOR CONSULTANT Oxygen Saturation 93% 03/20/2023 11:05 AM ADVISOR CONSULTANT Inhaled Oxygen Concentration - - Weight 63.5 kg (140 lb) 02/24/2023 2:30 PM ADVISOR CONSULTANT Height 160 cm (5' 3 ) 02/24/2023 2:30 PM ADVISOR CONSULTANT Body Mass Index 24.8 02/24/2023 2:30 PM ADVISOR CONSULTANT documented in this encounter Discharge Instructions * Discharge Instructions* Corinna Stratton RN - 03/20/2023 11:42 AM ADVISOR CONSULTANT ENT Discharge Instructions Procedure: Right hypoglossal nerve stimulator implant placement When to call your doctor: You have a fever of more than 101.5. You have redness or swelling around your incision. The pain in your incision starts hurting very badly. Your incision starts draining. You notice a foul odor from surgical area. You have pus, bleeding, or drainage around your incision site. Your incision is opening. You notice a foul odor. You have persistent nausea and/or vomiting, You feel dizzy or like you may pass out. You have a hard time breathing. You have any questions or concerns. Diet: Regular Diet Activity: Do NOT LIFT ANYTHING GREATER THAN A GALLON OF MILK UNTIL YOUR FOLLOW UP APPOINTMENT. Light activity for the next 24 hours. Resume normal activity afterwards as tolerated. You may feel tired and run down after surgery. It is normal to sleep more or take more naps. Light activity is okbut avoid heavy house work, yard work or strenuous exercise. Short walks are encouraged. Activitiescan be slowly increased as tolerated. Do not drive, operative heavy machinery, or make important legal decisions for the next 24 hours orwhile taking narcotic pain medication. Driving privileges are left up to the discretion of your physician and will be discussed further at your follow up appointment. You cannot drive while taking narcotic pain medication. Showering You may shower normally, allowing the water to wash gently over the suture line, but do not scrub the sutures or incisions. It is fine for soap to wash over the incisions, but it must be rinsed off. You may use a mild shampoo to wash your hair (baby shampoo is fine). If your wound gets wet, lightlydab it dry. DO NOT submerge yourself in any water that will cover the incision (bathtub, hot tub, swimming pool, pools, lakes, [place], oceans), unless specifically cleared by your doctor. Wound Care: Topical skin glue. The glue will fall off over next 7-10 days. Do NOT use antibacterial ointment, lotions, or creams on the wound this may make the skin glue dissolve too soon and the wound could open. After your skin glue dissolves, you may apply ointment to your incisions three times daily. Keep your incision clean. If any crusting forms on suture line, clean gently with Q-tip dipped in a 50:50 mixture of peroxideand water and apply vaseline twice a day. Call for increased problems including increased pain, redness or swelling. Keep the wound covered when in a place where the wound might get dirty. Do not scrub, rub, or pick at the incision. Please take extra care to avoid sun exposure until the wounds are healed and then protect the incision sites with sunscreen (about 6 weeks after your surgery) as sun exposure can interfere with the healing process. Sun exposure retards healing and causes discoloration of the scar that may never disappear. DO NOT swim (pool, lowe, ocean, river, or hot tub, etc.) until the wound has completely healed and you have been seen by your surgeon. This can cause infection. Do not smoke tobacco Smoking has been proven to interfere with the normal wound healing. Smoking will dramatically reduce the success rate of your surgery. Your primary care doctor can prescribe a patch to help you stop smoking if you would like. Medications: - Pain: You may have been prescribed Acetaminophen (Tylenol) or you may buy it at any pharmacy or drugstore. You should take Acetaminophen (Tylenol) 650mg every 6 hours for pain. Taking this in addition to your narcotic pain medication will provide greater pain relief. Do not exceed 3g (3000mg) of Tylenol in a 24h period. You have been prescribed oxycodone or another narcotic medication to help with your pain. You should only use this pain medication to help with pain that is not adequately controlled by tylenol. You should not drive while taking narcotic pain medication. Narcotic pain medication can make you constipated; take a stool softener as needed. - Stool Softener: Take stool softener (Iwfl-rxk-cmctmvt or prescription) while taking narcotic medication to prevent constipation. Laxatives not recommended. - Antibiotic: None - Anticoagulation/antiplatelet agents: Resume home Aspirin and Resume home anticoagulant Pathology: Final Pathology will take 7-10 days to result. This should be discussed with you at your scheduled follow up appointment. If for some reason it is not and you have not received a call from the officeto tell you your final pathology within 2 weeks of discharge, please contact the surgeon's nurse atthe number listed below or contact the main office line at [phone]. Follow up: You should follow up in Albin Ruiz MD's clinic as scheduled below. [place] [facility] Medicine [address] [place], [place] [id number] OTHER FOLLOW UP: 1. PCP - for management of all chronic illnesses Future Appointments Date Time Provider Department Center 03/23/2023 10:00 AM Wen Montenegro MD PD GEN SLC2C PD 04/01/2023 3:00 PM Sylvia Dawson PA FM FM 500 PC 04/02/2023 1:40 PM Patricia Martinez MD RHEU CAM 5C [facility] Rheum 04/08/2023 10:40 AM Albin Pereyra MD CLN CAM 11A OY 04/21/2023 9:00 AM Nazia Ventura MD EML CAM 5C [facility] IM EML 04/21/2023 10:00 AM Harpal De León MD [facility] CAR MRVL Specialty 04/29/2023 9:40 AM Jessy Adame MD RETINA COH 6 OP 04/30/2023 8:30 AM Fadi Cook PA SLEEP CTR 40 NL 06/03/2023 4:30 PM Fadi Cook PA SLEEP CTR 40 NL 09/16/2023 10:15 AM Valorie Young MD CAR CAM 8B Cardiology Phone numbers Appointment Scheduling: Urgent Concerns after hours or Weekends: Call and ask for the ENT resident economic geographer. During Regular Business Hours (8am-5pm Thursday through Thursday): Dr. Pereyra (Marley Jones RN): [phone] Questions: If you have any concerns or questions, or develop worrisome symptoms such as worsening pain or swelling, bleeding, fever, or vomiting, call your doctor. You have received anesthesia, therefore, for the next 24 hours and/or while taking narcotic pain medication; -Do NOT drive a vehicle -Do NOT drink alcohol -Do NOT make important personal or business decisions or sign legal documents. Examples of narcotic pain medication include Percocet, Oxycontin, [place], Hydrocodone, and Oxycodone. FAQs (frequently asked questions) about Surgical Site Infections What is a Surgical Site Infection (SSI)? A surgical site infection is and infection that occurs after surgery in the part of the body where the surgery took place. Most patients who have surgery do not develop an infection. However, infections develop in about 1 to 3 out of every 100 patients who have surgery. Some of the common symptoms fo a surgical site infection are: Redness and pain around the area where you had surgery Drainage of cloudy fluid from your surgical wound Fever Can SSIs be treated? Yes. Most surgical site infections can be treated with antibiotics. The antibiotic given to you depends on the bacteria (germs) causing the infection. Sometimes patients with SSIs causing the infection. Sometimes patients with SSIs also need another surgery to treat the infection. What are some of the things that hospitals are doing to prevent SSIs? To prevent SSIs, doctors, nurses, and other healthcare providers: Clean their hands and arms up to their elbows with an antiseptic agent just before the surgery. Clean their hands with soap and water or an alcohol-based hand rub before and after caring for eachpatient. May remove some of your hair immediately before your surgery using electric clippers if the hair isin the same area where the procedure will occur. They should not shave you with a razor. Wear special hair covers, masks, gowns, and gloves during surgery to keep the surgery area clean. Give you antibiotics before your surgery starts. In most cases, you should get antibiotics within 60 minutes before the surgery starts and the antibiotics should be stopped within 24 hours after surgery. Clean the skin at the site of your surgery with a special soap that kills germs. What can I do to help prevent SSIs? Before your surgery: Tell your doctor about other medical problems you may have. Health problems such as allergies, diabetes, and obesity could affect your surgery and your treatment. Quit smoking. Patients who smoke get more infections. Talk to your doctor about how you can quit before your surgery. Do not shave near where you will have surgery. Shaving with a razor can irritate your skin and makeit easier to develop an infection. At the time of your surgery: Speak up if someone tries to shave you with a razor before surgery. Ask why you need to be shaved and talk with your surgeon if you have any concerns. Ask if you will get antibiotics before surgery. After your surgery: Make sure that your healthcare providers clean their hands before examining you, either with soap and water or an alcohol-based hand rub. If you do not see you providers clean their hands, please ask them to do so. Family and friends who visit you should not touch the surgical wound or dressings. Family and friends should clean their hands with soap and water or an alcohol- based hand rub beforeand after visiting You. If you do not see them clean their hands, ask them to clean their hands. What do I need to do when I go home from the hospital? Before you go home, your doctor or nurse should explain everything you need to know about taking care of your wound. Make sure you understand how to care for your wound before you leave the hospital. Always clean your hands before and after caring for your wound. Before you go home, make sure you know who to contact if you have questions or problems after you get home. If you have any symptoms of an infection, such as a redness and pain at the surgery site, drainage,or fever, call your doctor immediately. If you have additional questions, please ask your doctor or nurse. Safety Tips for Preventing Falls at Home Falls happen at home for many reasons. Here are several things that are known to add to your risk of falling: Poor vision or hearing History of falls Use of an assistive device, such as a cane or walker Poor nutrition Certain medications Multiple medications Being older than 65 years of age Conditions in the home, such as slippery floors, loose rugs, cords on the floor If you answer ???yes?? to any of the following questions, please consider discussing your risk of falling with your primary care practitioner: Have you fallen in the last year? Do you feel unsteady when standing or walking? Do you have a fear of falling? If your primary care practitioner recommends physical therapy, we are available to assist: [facility]: [facility] [phone] [place] [phone] [facility] [phone] How are some things that you can do that will lower your risk for falls at home: Arrange furniture to prevent tripping or bumping into it. Keep a light on in the bedroom & bathroom to help you see at night. Have your doctor or pharmacist review your medications. Remove things that you can trip over like phone cords, rugs & footstools. Wear sturdy non-skid slippers or shoes with flat or low heels Use handrails when going up & down stairs. Take one step at a time. Begin a regular exercise program When getting up, sit on the edge of the bed/chair for a few minutes before standing. Sit & stand up slowly. Avoid tilting your head back. Watch out for sidewalks & curbs that are not even. Replace worn walker, cane & crutch tips. Disclaimer: This material provides general information only. It should not be used in place of the advice, instructions, or treatment given by your doctor or other health care companion. 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 10 mL 11 3 04/02/20 23 atenoloL (TENORMIN) 25 mg tablet TAKE 1 TABLET(25 MG) BY MOUTH DAILY 90 tablet 1 3 09/09/19 24 butalbital-acetamin soeyl-xqrpykzm-ufqm ine (FIORICET WITH CODEINE) 07-994-71-30 mg per capsuleIndications: Nonintractable headache, unspecified chronicity pattern, unspecified headache type TAKE 1 CAPSULE BY MOUTH EVERY 4 HOURS NEEDED FOR HEADACHE 20 capsule 3 04/01/20 23 ezetimibe (ZETIA) 10 mg tabletIndications:M ixed [...] daily 180 tablet 3 3 09/03/19 24 lisinopriL (PRINIVIL,ZESTRIL) 40 mg tabletIndications:H ypertension, essential Take 1 tablet (40 mg total) by mouth daily 90 tablet 4 3 07/23/19 24 methotrexate 2.5 mg tabletIndications:a utoimmune disease Take 8 tablets on 96 tablet 2 3 05/14/19 24 oxyCODONE (ROXICODONE) 5 mg immediate release tabletIndications:P ain Take 1 tablet (5 mg total) by mouth every 4 (four) hours as needed for pain 10 tablet 3 04/01/20 23 sulfaSALAzine EN (AZULFIDINE EN) 500 mg EC tablet TAKE 2 TABLETS(1000 MG) BY MOUTH TWICE DAILY 360 tablet 3 04/30/19 24 valACYclovir (Valtrex) 500 mg tabletIndications:R ecurrent cold sores Take 1 tablet (500 mg total) by mouth daily 90 tablet 2 2 06/10/19 24 documented as of this encounter Ordered Prescriptions Prescription Sig Dispense Quantity Refills Last Filled Start Date End Date oxyCODONE (ROXICODONE) 5 mg immediate release tabletIndications: Pain Take 1 tablet (5 mg total) by mouth every 4 (four) hours as needed for pain 10 tablet 03/20/2023 04/01/2023 documented in this encounter Discharge Disposition Disposition Code Departure Means Destination Comment s Discharge to home or self care documented in this encounter H&P Notes * Andrae Prieto MD - 03/20/2023 9:54 AM CST I have reviewed the H&P, examined the patient, and endorse the findings as written. Plan of Care : Based on the above findings, I consider Yesika Denney to be an acceptable risk for : Procedure(s): INSPIRE HYPOGLOSSAL NERVE STIMULATOR IMPLANT - INSERTION INSERTION CHEST WALL RESPIRATORY SENSOR ELECTRODE ARRAY AND PULSE GENERATOR Cosigned by Albin Pereyra MD at 03/20/2023 10:01 AM ADVISOR CONSULTANT SOR CONSULTANT SOR CONSULTANT Source Note - Ailyn Stubbs NP - 03/16/2023 2:00 PM ADVISOR CONSULTANT Patient Name: Yesika Denney : : 1960 Date of Service: 03/16/2023 Referring: Hector CHIEF COMPLAINT Routine Follow Up, HTN orthostatic PAST MEDICAL HISTORY Past Medical History: Diagnosis Date Autoimmune disease (CMS/HCC) (HCC) Benign left breast lump 06/2002 biopsy showed fibrosis and hyperplasia Brain aneurysm Followed by Dr. Chaudhari: Every 3 years Breast cancer (HCC) 2014 Invasive ductal carcinoma Cataract CME (cystoid macular edema), bilateral Depression Elevated cholesterol History of chemotherapy 2014 Breast cancer History of radiation therapy 2014 Right breast Hypertension Migraine Motion sickness sometimes on [place] roads Obstructive sleep apnea 06/19/2022 RA (rheumatoid arthritis) (HCC) HISTORY OF PRESENT ILLNESS: 62 y.o. female with a past medical history significant for HTN who was last seen by Dr. Young in July 2022 sp Woven EndoBridge repair in June 2022 for her anterior communicating artery aneurysm. Struggled with hypotension after covid in 2020. She was on HCTZ PRN for elevated BP at the time, tachycardia and breast cancer sp lupectomy in 2014 and arimidx for 1 month, RA, JOSE, bilateral carotid artery dissection sp Cartoid stent in 03/2022, when she saw Dr. Young in July she did not make any changes to her BP regimen, her BP was well controlled on lisinopril 20 mg daily atenolol 25 mg daily and HCTZ PRN. She called the office in February with episodes of orthostatic hypotension-SBP 120 and drop to 100 with changes in position, prior to these orthostatic changes she had COVID in December 2022-did notrequire hospitalization-all URI symptoms. Today she feels well. She continues to take HCTZ prn, shewas taking that PRN at the time of her orthostatic blood pressure changes. Her Bps at home are in the 90-140. She has had one episode of LH, no syncope, no chest pain, no SOB, no ORO, no palpitations, no edema, no pnd, no orthopnea. Of note when she was seen by Dr. Martinez and in the setting of REVIEW OF SYSTEMS: All other systems negative except stated in the HPI MEDICATIONS: Outpatient Encounter Medications as of 03/16/2023 Medication Sig Dispense Refill acetaminophen (TYLENOL) 325 [...] TAKE 1 TABLET(25 MG) BY MOUTH DAILY (Patient taking differently: Take 1 tablet (25 mg total) by mouth every morning) 90 tablet 1 hzrjzryizw-xioptvwxefjyw-ffgvxejn-codeine (FIORICET WITH CODEINE) 91-490-30-30 mg per capsule TAKE 1 CAPSULE BY MOUTH EVERY 4 HOURS NEEDED FOR HEADACHE (Patient taking differently: Take 1 capsule by mouth every 6 (six) hours as needed for headaches) 20 capsule 0 difluprednate (DUREZOL) 0.05 % drops Administer 1 drop into the right eye 3 (three) times a day for7 days, THEN 1 drop 2 (two) times a day for 7 days, THEN 1 drop daily for 7 days. 10 mL 11 ezetimibe (ZETIA) 10 mg tablet Take 1 tablet (10 mg total) by mouth daily (Patient taking differently: Take 1 tablet (10 mg total) by mouth every morning) 30 tablet 11 famotidine-Ca carb-mag hydrox (PEPCID COMPLETE) 10-800-165 mg chewable tablet Take 1 tablet by mouth daily as needed for heartburn FLUoxetine (PROzac) 20 mg capsule TAKE 1 CAPSULE(20 MG) BY MOUTH TWICE DAILY (Patient taking differently: Take 1 capsule (20 mg total) by mouth every morning) 180 capsule 1 folic acid (FOLVITE) 1 mg tablet Take 2 tablets (2,000 mcg total) by mouth daily (Patient taking differently: Take 2 tablets (2,000 mcg total) by mouth every morning) 180 tablet 3 hydroCHLOROthiazide (HYDRODIURIL) 12.5 mg tablet TAKE 1 TABLET(12.5 MG) BY MOUTH DAILY (Patient taking differently: Take 1 tablet (12.5 mg total) by mouth daily as needed (when BP is elevated for a few days)) 90 tablet 1 lisinopriL (PRINIVIL,ZESTRIL) 40 mg tablet Take 1 tablet (40 mg total) by mouth daily (Patient taking differently: Take 1 tablet (40 mg total) by mouth every morning) 90 tablet 4 magnesium gluconate 200 mg tablet Take 1 tablet (200 mg total) by mouth as needed sleep methotrexate 2.5 mg tablet Take 8 tablets on (Patient taking differently: Take 8 tablets (20 mg total) by mouth every 7 days Take 8 tablets on ) 96 tablet 2 multivitamin with minerals tablet Take 1 tablet by mouth every morning sulfaSALAzine EN (AZULFIDINE EN) 500 mg EC tablet TAKE 2 TABLETS(1000 MG) BY MOUTH TWICE DAILY (Patient taking differently: Take 1 tablet (500 mg total) by mouth every morning) 360 tablet 0 valACYclovir (Valtrex) 500 mg tablet Take 1 tablet (500 mg total) by mouth daily (Patient taking differently: Take 1 tablet (500 mg total) by mouth every morning) 90 tablet 2 vit S-E-xxmvxe-zinc-lutein (PreserVision Lutein) 226-90-0.8-5 mg capsule Take 1 tablet by mouth 2 (two) times a day No facility-administered encounter medications on file as of 03/16/2023. PHYSICAL EXAM: BP 136/78 (BP Location: Left arm, Patient Position: Sitting) Pulse 64 Ht 160 cm (5' 3 ) Wt 66.9 kg (147 lb 6.4 oz) LMP (LMP Unknown) SpO2 98% BMI 26.11 kg/m?? General: Well appearing, No pain or distress, well nourished HEENT: Within normal limits Neck: Supple, No carotid bruits, no JVD Respiratory: Clear to ausculation bilaterally; no wheezing/rales/rhonchi; respirations unlabored Cardiovascular: RRR, normal S1 and S2. No S3 or S4. No murmurs or rubs Gastrointestinal: soft, non-tender abdomen, no masses palpable Extremities: Warm and dry without edema Psychiatric: normal affect Neurologic: awake/alert, no focal deficits DIAGNOSTIC TESTING: Lab Results Component Value Date GLUCOSE 78 08/06/2022 CALCIUM 9.5 08/06/2022 SODIUM 143 06/13/2022 POTASSIUM 4.3 06/13/2022 CO2 25 08/06/2022 CHLORIDE 105 06/13/2022 BUNSER 10 06/13/2022 CREATININE 0.69 08/06/2022 Chemistry Lab Results Component Value Date SODIUM 143 06/13/2022 POTASSIUM 4.3 06/13/2022 CHLORIDE 105 06/13/2022 CO2 25 08/06/2022 ANIONGAP 9 06/13/2022 BUNSER 10 06/13/2022 CREATININE 0.69 08/06/2022 GLUCOSE 78 08/06/2022 CALCIUM 9.5 08/06/2022 BILITOT 0.37 08/06/2022 PROTEIN 6.4 03/25/2022 ALBUMIN 4.7 08/06/2022 GFRNAA 86 (L) 06/13/2022 GFRAA >90.0 03/16/2018 ALKPHOS 59 08/06/2022 AST 21 08/06/2022 ALT 15 08/06/2022 Lab Results Component Value Date CHOL 198 02/24/2023 Lab Results Component Value Date HDL 92 02/24/2023 POCHDL 78 09/22/2019 Lab Results Component Value Date LDLCALC 91 02/24/2023 LDLDIRECT 139 08/06/2022 POCLDL 165 09/22/2019 Lab Results Component Value Date TRIG 88 02/24/2023 POCTRIG 188 09/22/2019 Lab Results Component Value Date POCCHDLR 3.6 09/22/2019 Lab Results Component Value Date POCNONHDL 203 09/22/2019 Lab Results Component Value Date POCCHLPL 281 09/22/2019 Lab Results Component Value Date WBC 4.2 02/24/2023 HGB 12.8 02/24/2023 HCT 38.5 02/24/2023 MCV 99 (H) 02/24/2023 LABPLAT 194 02/24/2023 Lab Results Component Value Date HGBA1C 5.0 03/25/2022 No results found for: NPROBNP No results found for: TROPTHS MOST RECENT ECHO 09/2020 Conclusions: Normal left ventricular systolic function. No focal wall motion abnormalities. Normal left ventricular size. Impaired diastolic relaxation Grade I. Ejection fraction is measured at 62 %. Trivial mitral, tricuspid and pulmonic regurgitation. Compared with 2019: no change. DEVICE INTERROGATION 03/2020: Cardiologis Review of Transmissions: Normal sinus rhythm with sinus bradycardia and sinus tachycardia, average HR 66 bpm, range 48-123 bpm. Rare isolated VPDs. Rare isolated APDs with one atrial couplet. The patient pressed the event buttion of 47 occasions. Symptoms included flutter/skipped beats, dizziness/lightheadedness, fatigue, and, on one occasion passed out . These events generally correleated with isolated VPDs or, less commonly, APDs or an atrial couplet. The passed out event correlated with sinus rhythm at 66 bpm and an isolated VPD. The full scanned/data report is available in [employer]. labeled MONITOR STRIPS PDF ASSESSMENT & PLAN: Problem List Items Addressed This Visit Cardiac and Vasculature Mixed hyperlipidemia LDL 91 in February 2023. Zetia 10 mg daily. Hypertension, essential Controlled, no additional recs. Lisinopril 40 mg daily, atenolol 25 mg daily and HCTZ 12.5 mg PRN. She takes this approximately once a week from her notes. Dr. Young in 6 months. History of right common carotid artery stent placement SP bilateral stenting in the setting of bilateral carotid artery dissection. Following with neurology. 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 Mom had bicuspid AV and aneurysm repair. Will message genetics, Dr. Young and Dr. Moss for consideration of work up for Elhers Danols, or other connective tissue disorder. ASA and statin. Other Visit Diagnoses Benign familial hypermobility - Primary Relevant Orders Ambulatory referral to Pediatric Genetics Dr. Young in 6 months. Ailyn Stubbs NP SOR CONSULTANT documented in this encounter Miscellaneous Notes * Op Note - Albin Pereyra MD - 03/20/2023 11:49 AM CST DATE OF SURGERY: 03/20/2023 PREOPERATIVE DIAGNOSIS: Obstructive sleep apnea POSTOPERATIVE DIAGNOSIS: Obstructive sleep apnea PROCEDURE PERFORMED: Right hypoglossal nerve stimulator implantation Generator placement right chest wall Lead placement right intercostal muscle ATTENDING SURGEON: Albin Pereyra MD ALIGNMENT MECHANIC SURGEON: Surgeon(s): Albin Pereyra MD Rincon Briceno, Javier Enrique, MD ANESTHESIA: General EBL: 30 mL COMPLICATIONS: * No complications entered in OR log * Body mass index is 24.8 kg/m??. OPERATIVE NOTE: This is a 62 y.o. female who has obstructive sleep apnea. The patient was then consented for the above procedures. Risks benefits and alternatives were discussed. Discussed risk of bleeding, pain, infection, hematoma, seroma, injury to the marginal mandibular nerve, hypoglossal nerve, sensory nerves, etc. We discussed risk of dissatisfaction, implant failure and need for explantation. Discussed MRI limitations.Discussed risk of pneumothorax as well. The patient was taken to the operating room and placed supine on the operating table. Anesthesia was established by the anesthesia service. The patient was then handed to the surgical service. The nerve monitoring leads were placed superficially on the right lateral tongue, floor of mouth, and mentalis to monitor the hypoglossal and marginal mandibular nerves. The patient was then prepped and draped in the normal fashion. After final timeout verification, the procedure began. We made an incision parallel to the mandible between the hyoid bone and mandible anteriorly, 2 cm in length. This was through subcutaneous tissue and platysma. The digastric anterior belly was identified and traced posteriorly, elevating the submandibular gland off it. The mylohyoid was identified and retracted. The ranine vein was identified and tied off with a silk. CN XII was then identified and dissected of its superficial fascia. The C1 branch was identified inferiorly. We then brought in the microscope. We traced it more distally and identified further branches going superiorly, which are exclusion. We then identified the node where exclusion branches were located. We then selectively stimulated all branches very slowly to confirm inclusion and exclusion branches. We then placed thecoupler lead around the hypoglossal nerve, distal to the exclusion branches, with care to not include any of those within the haul truck driver. Next, we instilled saline/bacitracin solution under the cuff. The lead was pulled under the digastric and attached to the anterior belly with two 3-0 silk sutures around the barrel. Next, we made an incision on the anterior chest wall on the right just anterior to the mid clavicular line approximately 2 finger breaths below the clavicle overlying the 2nd rib a few cm from the lateral sternal border. This measured 4 cm and went down to the pectoralis fascia. We made the pocket 2 finger breaths wide and two our second knuckle. We then divided the pectoralis muscle horizontallywith blunt dissection to the level of the intercostal space. The external intercostals were identified and easily divided through the fascia until the internal muscles were identified. We then placedthe sensing lead of the implant into this pocket between the internal and external intercostal muscl es. It was sutured into place with 3-0 silk suture around the hub and through the two holes.The wire was then tucked into the pocket to remove redundancy and the pec was sutured together with a figure of 8 suture. Next, we tunneled from the neck pocket over the clavicle in a subplatysmal plane until we reached our generator pocket. We then placed the second lead through this. Next, we secured the leads to the generator using the supplied hardware. We placed the generator snugly in the pocket. The system was then tested and there was adequate movement of the tongue without any retraction. Therefore we made sure hemostasis was achieved with bipolar electrocautery and closed the incisions with 3-0 vicryl deep sutures and dermabond for skin. At the end of the case, all counts were correct. Attending surgeon attestation: I was present and directly participated for the entirety of the surgery. SOR CONSULTANT * Perioperative Nursing Note - Laquita Armando RN - 03/20/2023 11:00 AM CST Pts Right pupil noted to be larger than left, Anesthesia aware, pt states Has been this way over past couple months , denies headaches, vision changes SOR CONSULTANT * Pre-Procedure Instructions - Beth Ramirez NP - 03/12/2023 11:42 AM ADVISOR CONSULTANT Center for Preoperative Assessment and Planning CPAP Clinic Location: [facility] The night before your surgery: * Do not eat anything after midnight the night before your procedure. The morning of your surgery: * You may have clear liquids on your surgery day. You must stop drinking two hours before you arrive to the surgery facility. Acceptable clear liquids include water, clear sports drinks, black coffee, or clear soda. DO NOT drink any milk, creamer, or alcohol. * Your surgeon's office may have provided additional instructions or restrictions. Please follow those instructions. * You may brush your teeth and rinse your mouth out. * Do not wear jewelry, body piercings, makeup, hairpins, false eyelashes or contact lenses to the hospital. * Leave any valuables at home or with your family. Outpatient Surgery: * You must have a responsible adult drive you home and stay with you for 24 hours after your surgery * You cannot be alone at home or in a hotel * Please call your surgeon's office if you do not have someone to drive you home and/or stay with you after surgery * Please bring any items you may need to spend the night in the hospital. Sometimes patients need to be cared for in the hospital overnight. If you have Sleep Apnea (JOSE): * Bring your CPAP/BiPAP/VPAP machine to the hospital the day of your surgery * For a few days after your surgery, you will need to wear your CPAP/ BiPAP/VPAP machine any time your are sleeping. This includes when you take a nap. Instructions For Your Medications: Pre-Surgery Instructions: Medication Instructions acetaminophen (TYLENOL) 325 mg tablet Take on day of surgery if needed aspirin 81 mg enteric coated tablet Stop taking 1 week prior to surgery atenoloL (TENORMIN) 25 mg tablet Take morning of surgery macjaoncih-ynzjarokqjeeu-oofocrne-codeine (FIORICET WITH CODEINE) 50-849-46-30 mg per capsule Take on day of surgery if needed ezetimibe (ZETIA) 10 mg tablet Take morning of surgery famotidine-Ca carb-mag hydrox (PEPCID COMPLETE) 10-800-165 mg chewable tablet Don't take on day of surgery FLUoxetine (PROzac) 20 mg capsule Take morning of surgery folic acid (FOLVITE) 1 mg tablet Don't take on day of surgery lisinopriL (PRINIVIL,ZESTRIL) 40 mg tablet Don't take on day of surgery magnesium gluconate 200 mg tablet Take the night before surgery if needed methotrexate 2.5 mg tablet Follow your prescriber's instructions multivitamin with minerals tablet Stop taking 1 week prior to surgery sulfaSALAzine EN (AZULFIDINE EN) 500 mg EC tablet Follow your prescriber's instructions valACYclovir (Valtrex) 500 mg tablet Take morning of surgery vit Z-E-qatihy-zinc-lutein (PreserVision Lutein) 226-90-0.8-5 mg capsule Stop taking 1 week prior to surgery difluprednate (DUREZOL) 0.05 % drops Take as prescribed hydroCHLOROthiazide (HYDRODIURIL) 12.5 mg tablet Don't take on day of surgery General Instructions For Medications: * Stop all of these medications 5 days prior to your surgery: motrin, advil, ibuprofen, aleve, naproxen, meloxicam, celebrex, celecoxib. For medications that you are instructed to take on the morning of surgery, take the medications with a few sips of water. Stop all of these medications 7-14 days prior to your surgery: Vitamin E, Herbal medicines, Diet Pills If you have pain, you may take tylenol (acetaminophen). Do not take more than 6 tablets or 3000 mg (3 g) within a 24 period. Call your surgeon and the CPAP clinic if any of the following happens before surgery: Any changes in your health You have a fever You have any signs of an infection (chest, urinary tract or tooth) You have been to the Emergency Room or were in the hospital You have started taking any new medications You have questions about a bowel prep or special diet before surgery You have symptoms of COVID-19 such as a new or worsening cough, shortness of breath, fever, body aches, loss of taste or smell, diarrhea or vomiting, or sore throat. You have a household contact with COVID-19. You test positive for COVID-19. SOR CONSULTANT * Perioperative Nursing Note - Mali Jin RN - 02/24/2023 2:44 PM ADVISOR CONSULTANT Center for Preoperative Assessment and Planning Perioperative Nursing Note Telephone Preoperative Evaluation ([facility]) - TELEPHONE ONLY, NO PHYSICAL EXAM Date: 02/24/23 This assessment was completed with the patient. Vitals: 02/24/23 1430 Weight: 63.5 kg (140 lb) Height: 160 cm (5' 3 ) 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: NA Social History Tobacco Use Smoking Status Never Passive exposure: Never Smokeless Tobacco Never Substance and Sexual Activity Drug Use Not Currently Comment: 2 drinks per month Alcohol Use Q1: How often do you have a drink containing alcohol?: Monthly or less Q2: How many drinks containing alcohol do you have on a typical day when you are drinking?: 1 or 2 Q3: How often do you have six or more drinks on one occasion?: Never Outpatient Medications Marked as Taking for the 03/20/23 encounter (Hospital Encounter) Medication Sig Dispense Refill acetaminophen (TYLENOL) 325 [...] TAKE 1 TABLET(25 MG) BY MOUTH DAILY (Patient taking differently: Take 1 tablet (25 mg total) by mouth every morning) 90 tablet 1 rdzbxeqvwl-gdlzdqtbvaytw-kdcwsbsc-codeine (FIORICET WITH CODEINE) 99-569-19-30 mg per capsule TAKE 1 CAPSULE BY MOUTH EVERY 4 HOURS NEEDED FOR HEADACHE (Patient taking differently: Take 1 capsule by mouth every 6 (six) hours as needed for headaches) 20 capsule 0 difluprednate (DUREZOL) 0.05 % drops Administer 1 drop into the right eye 4 (four) times a day (Patient taking differently: Administer 1 drop into the right eye 4 (four) times a day) 10 mL 11 ezetimibe (ZETIA) 10 mg tablet Take 1 tablet (10 mg total) by mouth daily (Patient taking differently: Take 1 tablet (10 mg total) by mouth every morning) 30 tablet 11 famotidine-Ca carb-mag hydrox (PEPCID COMPLETE) 10-800-165 mg chewable tablet Take 1 tablet by mouth daily as needed for heartburn FLUoxetine (PROzac) 20 mg capsule TAKE 1 CAPSULE(20 MG) BY MOUTH TWICE DAILY (Patient taking differently: Take 1 capsule (20 mg total) by mouth every morning) 180 capsule 1 folic acid (FOLVITE) 1 mg tablet Take 2 tablets (2,000 mcg total) by mouth daily (Patient taking differently: Take 2 tablets (2,000 mcg total) by mouth every morning) 180 tablet 3 lisinopriL (PRINIVIL,ZESTRIL) 40 mg tablet Take 1 tablet (40 mg total) by mouth daily (Patient taking differently: Take 1 tablet (40 mg total) by mouth every morning) 90 tablet 4 magnesium gluconate 200 mg tablet Take 1 tablet (200 mg total) by mouth as needed sleep methotrexate 2.5 mg tablet Take 8 tablets on (Patient taking differently: Take 8 tablets (20 mg total) by mouth every 7 days Take 8 tablets on ) 96 tablet 2 multivitamin with minerals tablet Take 1 tablet by mouth every morning sulfaSALAzine EN (AZULFIDINE EN) 500 mg EC tablet TAKE 2 TABLETS(1000 MG) BY MOUTH TWICE DAILY (Patient taking differently: Take 1 tablet (500 mg total) by mouth every morning) 360 tablet 0 valACYclovir (Valtrex) 500 mg tablet Take 1 tablet (500 mg total) by mouth daily (Patient taking differently: Take 1 tablet (500 mg total) by mouth every morning) 90 tablet 2 vit H-B-wbywwb-zinc-lutein (PreserVision Lutein) 226-90-0.8-5 mg capsule Take 1 tablet by mouth 2 (two) times a day Implants Stent Surpass Streamline Flow Diverter - Implanted (Right) Carotid Rn Employee Health: [employer] Lot number: [id number] Size: 5MM X 50MM Device identifier: [id number] Device identifier type: [id number] As of 04/09/2022 Status: Implanted Lvis Intrluminal Support Device - Implanted (Left) Carotid Rn Employee Health: [employer] Lot number: [id number] Size: 5.5MM X 33MM As of 04/09/2022 Status: Implanted Vascular Closure Device Angio-Seal Vip Vascular Closure Device - Implanted (Right) Femoral Rn Employee Health: [employer] Lot number: [id number] As of 04/09/2022 Status: Implanted Type Not Specified [employer] Web Sl 5mm 3mm Device Embolization W5-5-3 - [id number] - Implanted (Left) Inventory item: [employer] WEB SL 5MM 3MM DEVICE EMBOLIZATION W5-5-3 Model/Cat number: [id number] Rn Employee Health: [employer] Lot number: [id number] As of 02/24/2023 Status: Implanted [employer] Angio-Seal Vip 6fr Closere Device [id number] - [id number] - Implanted (Right) Inventory item: [employer] ANGIO-SEAL VIP 6FR CLOSERE DEVICE [id number] Model/Cat number: [id number] Rn Employee Health: [employer] Lot number: [id number] As of 06/16/2022 Status: Implanted [employer] Device 5fr Closure Celt Acd Vascular Sterile Latex Free Disposable Juan Kclt-05 - [id number] - Implanted Inventory item: [employer] DEVICE 5FR CLOSURE CELT ACD VASCULAR STERILE LATEX FREE DISPOSABLE JUAN KCLT-05 Model/Cat number: [id number] Rn Employee Health: [employer] Lot number: [id number] As of 01/28/2023 Status: Implanted SKIN Piercings Remaining: Yes Wound (LDAs) Type of Wound (LDA): (none) SCREENINGS Simpson Fall Risk Score (Retired): 15 Chelsea index score: 100 PATIENT CARE PLANNING Advance Directives (For Healthcare) Advance Directive: Patient has advance directive, copy not in chart Assistive Devices/DME: Eyeglasses Discharge Planning Type of Residence: Private residence Living Arrangements: Spouse/significant other Support Systems: Spouse/significant other Assistance Needed: Verify Rep and helper: Christiano Patient expects to be discharged to:: Private residence PHYSICAL DAMAGE APPRAISER NO SOR CONSULTANT * Pre-Procedure Instructions - Mali Jin RN - 02/24/2023 2:43 PM ADVISOR CONSULTANT CENTER FOR PREOPERATIVE ASSESSMENT AND PLANNING (CPAP) PRE-SURGICAL NURSING INSTRUCTIONS Telephone Assessment General Information Discussed with Patient: Surgery location provided to patient. Arrival time and surgical time will be provided to the patient by their surgeon. You should wear clothing that is clean, loose, comfortable and easy to get in and out of on the dayof surgery. You should remove nail coverings, artificial nails and nail tongan prior to the day of surgery. You should leave your valuables and any jewelry at home. No metal or piercings are allowed in the operating room. You should bring your insurance card, a photo ID (example: Verify Rep's License) and a method of payment for any insurance copay, deductible or copay for discharge medications. You should bring a complete, up-to-date, list of all your medications on the day of surgery, including any over the counter medications or supplements you may take. Please note on your medication list, the last date & time you took each medication. The healthcare team, on the day of surgery, will ask for this information. You should bring your Advanced Directive and/or Living Will with you on the day of surgery if you have not verified a copy is already in your Epic Chart. If you are having surgery at [facility], please arrive on the day of surgery with the name and phone number of your local 24 hour pharmacy. Due to evening discharges, your routine pharmacy may be closed. In order to obtain your prescriptions that evening, your surgeon may need to send prescriptions to this pharmacy or have you take prescriptions to this pharmacy when you are discharged. Without this information, you may not be able to obtain your prescriptions that evening. A Guide for Patients Having Surgery: Your Pathway to Excellent Care OUR GOAL IS TO PROVIDE YOU WITH EXCELLENT CARE Use this guide to learn about what you can do before, during and after surgery to help your recovery. You are the most important person on your health care team. By becoming informed and involved, you can contribute to the success of your surgery. If your surgeon's directions are different than those in this guide, talk with your nurse or surgeon to confirm the information. It is important that you understand how to take care of yourself at home after surgery. Be sure to bring this guide with you on the day of surgery and take it home with you after surgery. Write down questions for your nurse or surgeon on the last page of this booklet. Important pages to be reviewed BEFORE surgery: Page 1: QR codes for Surgery Center maps Page 3: Types of Anesthesia Page 5: Tips for the day & night before surgery Page 6: When to stop eating BEFORE surgery and examples of clear liquids Page 7-10: Preventing Infection: Chlorhexidine Gluconate (CHG) Bathing Instructions You may access A Guide for Patients Having Surgery: Your Pathway to Excellent Care by the followinglink: [email or web address] How To Prepare Your Skin For Surgery Below is the Pre-Surgical Bathing Protocol you should follow for your surgery. If your surgeon provides you different bathing instructions, please follow your surgeon's orders. 2 Day CHG Bathing Protocol (no nasal ointment) PREVENTING INFECTION (DECOLONIZATION): Decolonization is the use of a topical antiseptic soap and sometimes a nasal ointment to remove bacteria (germs) from the skin's surface. Antiseptic soap: Chlorhexidine gluconate or CHG (brand name: Hibiclens??) Before surgery, your entire body must be thoroughly cleaned. CHG helps to reduce the bacteria on your skin. You may be given one or more bottles of CHG or you may be asked to obtain from your preferred pharmacy. Be sure to ask your pharmacist if you need help finding this product. SHOWERING WITH ANTISEPTIC SOAP (CHG) What You Need For Each Shower 60 mL (?? cup) of CHG 2 clean washcloths CHG Bathing Instructions First, shampoo and rinse your hair with your own shampoo (no conditioners). Do this so the antiseptic soap isn't washed off by your shampoo. Wash face with warm water. Turn off shower and stand away from the water. Use 2 clean washcloths to apply the antiseptic soap to all areas as described below: Pour 30 mL (1/8 cup) of CHG on washcloth #1: Using washcloth- start at jawline and firmly massage the soap into the skin in a circular motion to clean neck, shoulders, chest, back, both armpits, arms, hands and abdomen. Finish with legs and feet. Pour 30 mL (1/8 cup) of CHG on washcloth #2: Using washcloth- firmly massage the soap into the skinin a circular motion to clean groin area, perineum and buttocks. (Do not use CHG on genital area.) [place] Points: The CHG antiseptic soap will not bubble or lather very much. If you get soap in your eyes, ears or mouth, rinse well with cool water. When finished, leave the soap on your skin for 2 minutes before rinsing. Dry off with a clean fresh towel. Wear clean clothes or pajamas to sleep in. After showering DO NOT put on deodorant, hair products or conditioners, lotions or creams, powders,Vaseline or any non-essential products. If you cannot reach the surgical site, such as the back, please have someone help you. Shaving: You may shave your face, legs and underarms during your evening shower before you apply the CHG antiseptic soap. Be careful not to cut or delmy your skin. Avoid shaving on the day of surgery. Deodorant: Patients following the 5-Day CHG protocol may apply deodorant on the days leading up to surgery, being sure, however, to avoid use on the evening before and day of surgery. All other products should be avoided for the full 5 days. 2-Day CHG Bathing Protocol The Evening Before Surgery: Take a shower with Antiseptic soap (CHG). Follow the steps for ???Showering with Antiseptic Soap (CHG)?? above. Change all linens on your bed so you are sleeping in clean fresh sheets and pillowcases. Remove nail coverings, artificial nails and nail tongan. The Morning of Surgery: Take a shower with Antiseptic soap (CHG). Follow the steps for ???Showering with Antiseptic Soap (CHG)?? above. Put clean clothes on after you shower. Travel/Exposure Screening: Travel Screening Have you traveled outside the [place] in the last 6 months?: Yes Were you hospitalized in any country besides [place] in last 6 months?: No Have you traveled outside of the [place] in the last 30 days?: Yes Countries visited in the last 30 days: [place] Exposure Screening Have you been exposed to anyone who is sick in the last 30 days?: No Have you been exposed to or tested positive for COVID-19 within the last 10 days?: No Infectious Disease Screening Are you having any of the following:: None As of 02/04/2022 any COVID TESTING required for surgery will be set up by your surgeon's office. Please reach out to your surgeon's office if you develop any COVID symptoms, test positive for COVID or are exposed to a COVID positive person. If you have questions, please call the CPAP Staff at [phone], Thursday-Thursday 8am-4:30pm. All patients should read the below section: COVID 19 Updates & Visitor Policy: Please access [email or web address] for the most updated information. Information on [facility] & the [facility]: Please view [email or web address] (Patient & Visitor Information) for additional details regarding Advanced Directive forms, AWARE, directions, parking information, lodging, Internet access, dining and more. Information on [facility] or [facility] ([facility]): Please view [email or web address] (Patient and Visitor Information) for parking/directions and more. For MyChart information, to activate account or password recovery, please go to [email or web address] or call [phone] (toll-free: [phone]), Thu- Thursday 8am-5pm. Information for Suicide Prevention: National Suicide Prevention Lifeline (1-804- 357-JUMQ (6140)). Surgery Times: For patients having surgery @ [facility], if your surgeon's office has not notified you of your surgery time by 2pm THE BUSINESS DAY BEFORE your surgery, please call the surgery center at [phone] and ask for your surgeon's office Dr Albin Pereyra. SOR CONSULTANT documented in this encounter Plan of Treatment Not on file documented as of this encounter Procedures Procedure Name Priority Date/Time Associated Diagnosis Comments INSERTION CHEST WALL RESPIRATORY SENSOR ELECTRODE ARRAY AND PULSE GENERATOR 03/20/2023 11:14 AM ADVISOR CONSULTANT JOSE (obstructive sleep apnea) Case Notes 10/16/22 I called to set up Inspire with Dr. Pereyra. Yesika Mandujano wants to hold off for now. She has an appt on 10/21/22 to get an oral appliance and will trial that and call to set up surgery if it does not improve her JOSE. I made her aware her auth is valid until 04/05/23. She stated if she is not having improvement, she would be calling sooner than Dec. INSPIRE HYPOGLOSSAL NERVE STIMULATOR IMPLANT - INSERTION 03/20/2023 11:14 AM ADVISOR CONSULTANT JOSE (obstructive sleep apnea) Case Notes 10/16/22 I called to set up Inspire with Dr. Pereyra. Yesika Mandujano wants to hold off for now. She has an appt on 10/21/22 to get an oral appliance and will trial that and call to set up surgery if it does not improve her JOSE. I made her aware her auth is valid until 04/05/23. She stated if she is not having improvement, she would be calling sooner than Dec. POC ISTAT Routine 03/20/2023 9:47 AM ADVISOR CONSULTANT documented in this encounter Results * POC ISTAT (03/20/2023 9:47 AM ADVISOR CONSULTANT) [facility] K POC 4.1 3.3 - 4.9 mmol/L KATHY CASTRO Comment: Interpretive Data This method is not able to assess for hemolysis, which may falsely increase potassium concentrations. If further testing is needed to evaluate this result, consider in-laboratory plasma potassium. Current Interpretive Data was last revised on 2021. POC Device Number [id number] KATHY ROOT POC Performer [id number] KATHY CASTRO Blood 03/20/2023 9:47 AM ADVISOR CONSULTANT 03/20/2023 9:47 AM ADVISOR CONSULTANT Albin Pereyra MD LAB BLOOD ORDERABLES Final Result [facility] [address] [facility] Department [place] [address] documented in this encounter Visit Diagnoses Diagnosis Obstructive sleep apnea- Primary Obstructive sleep apnea (adult) (pediatric) JOSE (obstructive sleep apnea) Obstructive sleep apnea (adult) (pediatric) documented in this encounter Administered Medications Inactive Administered Medications - up to 3 most recent administrations Medication Order MAR Action Action Date Dose Rate Site HYDROcodone-acetaminophen (NORCO) 5-325 mg per tablet 1 tablet 1 tablet, oral, Every 20 min PRN, 3rd line for pain, breakthrough pain, May use as 1st line pain medication if pain not extremely severe and patient able to tolerate PO meds. If unable to tolerate PO meds or outpatient complaining of extremely severe pain, start with Fentanyl and follow with Oral meds., Starting on Thu03/20/23 at 1311, For 2 doses, Phase I, May administer TWO pills together if pain moderate to severe and patient able to tolerate PO meds, after consulting with Anesthesiologist., Indications: PainIndications:Pain Given 03/20/2023 1:15 PM ADVISOR CONSULTANT 1 tablet Lactated Ringer's (LR) infusion 30 mL/hr, intravenous, Continuous, Starting on Thu03/20/23 at 1015, For 4 hours, Pre-Op, Use a 500 ml bag for End Stage Renal Disease Patients. Discontinue if fluid still running once patient arrives to floor. New Bag 03/20/2023 11:50 AM ADVISOR CONSULTANT Restarted 03/20/2023 11:12 AM ADVISOR CONSULTANT New Bag 03/20/2023 11:09 AM ADVISOR CONSULTANT 50 mL/hr lidocaine-EPINEPHrine (XYLOCAINE with EPI) 1 %-1:100,000 injection As needed, Starting on Thu03/20/23 at 1152, Intra-Op, Indications: Administration of Local AnesthesiaIndications:Administrat ion of Local Anesthesia Given 03/20/2023 11:52 AM ADVISOR CONSULTANT 5 mL Surgical Site sodium chloride 0.9% irrigation As needed, Starting on Thu03/20/23 at 1152, Intra-Op Given 03/20/2023 11:52 AM ADVISOR CONSULTANT 1,000 mL Surgical Site documented in this encounter Active and Recently Administered Medications Times are shown in ADVISOR CONSULTANT. Continuous Medication Order 03/18/2023 03/19/2023 03/20/2023 Lactated Ringer's (LR) infusion 30 mL/hr, intravenous, Continuous, Starting on Thu03/20/23 at 1015, For 4 hours, Pre-Op, Use a 500 ml bag for End Stage Renal Disease Patients. Discontinue if fluid still running once patient arrives to floor. 1109 (New Bag - Prov ider: Esme Branch CRNA)1111 (Paused - Provider: Esme Branch CRNA - Comment: Switch to gravity)1112 (Restarted - Provider: Esme Branch CRNA)1150 (New Bag - Provider: Esme Branch CRNA)1231 (Anesthesia Volume Adjustment - Provider: Esme Branch CRNA)1740 (Due: Stopped) Lactated Ringer's (LR) infusion 125 mL/hr, intravenous, Continuous, Starting on Thu03/20/23 at 1345, For 4 hours, Phase I, Discontinue upon discharge from PACU to the floor. PRN Medication Order 03/18/2023 03/19/2023 03/20/2023 acetaminophen (TYLENOL) tablet 500 mg 500 mg, oral, Every 6 hours PRN, headaches, other, Breakthrough Pain and Supplement to other pain meds, Starting on Thu03/20/23 at 1311, For 2 doses, Phase I, When able to tolerate PO after consulting with Anesthesiologist. Do not administer if patient has already received Acetaminophen-containing medications in PACU., Indications: Pain diphenhydrAMINE (BENADRYL) 50 mg/mL injection 12.5 mg 12.5 mg, intravenous, Administer over 1 Minutes, Every 5 min PRN, itching, other, For Nausea, administer 25 mg IV., Starting on Thu03/20/23 at 1311, For 4 doses, Phase I, Max cumulative dose 50 mg., Indications: Itching famotidine (PEPCID) injection 20 mg (COMPLETED) 20 mg, intravenous, Administer over 2 Minutes, Once as needed, heartburn, Medication to be administered by the anesthesia staff (Anesthesiologist or EXCAVATOR OPERATOR), Starting on Thu03/20/23 at 0940, For 1 dose, Pre-Op, Indications: Heartburn, Heartburn Prevention, gastroesophageal reflux disease, Reflux 1109 (Given - Provid er: Esme Branch CRNA) fentaNYL (SUBLIMAZE) preservative free injection 25 mcg 25 mcg, intravenous, Every 5 min PRN, 2nd line for pain, Use Fentanyl as 1st line medication for extremely severe pain for outpatients, and follow with oral pain medication., Starting on Thu03/20/23 at 1311, For 4 doses, Phase I, Use as 1st line for outpatients, dose not to exceed 100 mics. If pain still extremely severe after 100 mics of Fentanyl, may proceed to Dilaudid after consulting with Anesthesiologist. If patient able to tolerate PO meds and pain improved after Fentanyl, proceed to Oral pain medication., Indications: Pain hydrALAZINE (APRESOLINE) injection 5 mg 5 mg, intravenous, Administer over 2 Minutes, Every 5 min PRN, high blood pressure, Starting on Thu03/20/23 at 1311, Phase I, Max cumulative dose 20 mg. Dose if systolic BP greater than 180 AND heart rate less than 70., Indications: hypertension HYDROcodone-acetaminophen (NORCO) 5-325 mg per tablet 1 tablet 1 tablet, oral, Every 20 min PRN, 3rd line for pain, breakthrough pain, May use as 1st line pain medication if pain not extremely severe and patient able to tolerate PO meds. If unable to tolerate PO meds or outpatient complaining of extremely severe pain, start with Fentanyl and follow with Oral meds., Starting on Thu03/20/23 at 1311, For 2 doses, Phase I, May administer TWO pills together if pain moderate to severe and patient able to tolerate PO meds, after consulting with Anesthesiologist., Indications: Pain 1315 (Given - Provid er: Corinna Stratton RN) HYDROmorphone (DILAUDID) injection 0.2 mg 0.2 mg, intravenous, Administer over 2 Minutes, Every 5 min PRN, 1st line for pain, Use as 1st line pain med for inpatients or for patients with extremely severe pain., Starting on Thu03/20/23 at 1311, Phase I, Use as first line pain medication for inpatients. May use as first line medication for outpatients with extremely severe pain (7 out of 10 or above), history of opioid tolerance, or history of Chronic Pain with opioid tolerance, after consulting with Anesthesiologist. Inform anesthesiologist when dose reaches 2 mg for inpatients or 1 mg for outpatients., Indications: Chronic Pain with Opioid Tolerance, Pain, Severe Pain with Opioid Tolerance labetaloL (NORMODYNE,TRANDATE) injection 5 mg 5 mg, intravenous, Every 5 min PRN, high blood pressure, Starting on Thu03/20/23 at 1311, For 4 doses, Phase I, Max cumulative dose 20 mg. Dose if systolic blood pressure greater than 180 AND HR greater than 70. lidocaine-EPINEPHrine (XYLOCAINE with EPI) 1 %-1:100,000 injection (CANCELED) As needed, Starting on Thu03/20/23 at 1152, Intra-Op, Indications: Administration of Local Anesthesia 1152 (Given - Provid er: Andrae Chambers MD) meperidine (DEMEROL) preservative free injection 12.5 mg 12.5 mg, intravenous, Administer over 5 Minutes, Every 10 min PRN, shivering, Starting on Thu03/20/23 at 1311, For 2 doses, Phase I, Max cumulative dose 25 mg., Indications: Shivering naloxone (NARCAN) 0.4 mg/mL injection 0.04-0.4 mg 0.04-0.4 mg, intravenous, Once as needed, other, excessive sedation/respiratory depression, Starting on Thu03/20/23 at 1311, For 1 dose, Phase I, Dilute 0.4 mg with 9 mL NS (final concentration 0.04 mg/mL). For respiratory depression (respiratory rate less than 6), administer 0.4 mg IVP over 30 seconds. For excessive sedation administer 0.04 mg (1 mL) every 1 minute until desired level of alertness. Consult with Anesthesiologist before administration. Administer 40 mics at a time. For IV, administer over 30 seconds., Indications: Opioid Toxicity ondansetron (ZOFRAN) injection 4 mg 4 mg, intravenous, Administer over 2 Minutes, Once as needed, nausea, vomiting, Starting on Thu03/20/23 at 1311, For 1 dose, Phase I, Proceed to prochlorperazine if ondansetron has been given within the last 6 hours. prochlorperazine (COMPAZINE) injection 5 mg 5 mg, intravenous, Administer over 2 Minutes, Once as needed, nausea, vomiting, Starting on Thu03/20/23 at 1311, For 2 doses, Phase I, If nausea/vomiting not relieved by ondansetron within 30 minutes or if ondansetron has been given within the last 6 hours. May repeat in 15 minutes of nausea not relieved. sodium chloride 0.9% irrigation (CANCELED) As needed, Starting on Thu03/20/23 at 1152, Intra-Op 1152 (Given - Provid er: Albin Pereyra MD) documented in this encounter Orders Medications Ordered That Elmo ht Not Have Been Administered Count Last Ordered Date First Ordered Date acetaminophen (TYLENOL) tablet 500 mg 1 11/2022 diphenhydrAMINE (BENADRYL) 5 0 mg/mL injection 12.5 mg 1 03/20/2023 famotidine (PEPCID) injection 20 mg 1 03/20 fentaNYL (SUBLIMAZE) preserv ative free injection 25 mcg 1 03/20/2023 hydrALAZINE (APRESOLINE) injection 5 mg 1 05/21/2022 HYDROmorphone (DILAUDID) injection 0.2 mg 1 03/20/2023 labetaloL (NORMODYNE,TRANDAT E) injection 5 mg 1 03/20/2023 Lactated Ringer's (LR) infusion 2 3 lidocaine PF (XYLOCAINE) 10 mg/mL (1 %) preservative free injection 2-10 mg 1 03/20/2023 meperidine (DEMEROL) preserv ative free injection 12.5 mg 1 03/20/2023 naloxone (NARCAN) 0.4 mg/mL injection 0.04-0.4 mg 1 03/20/2023 ondansetron (ZOFRAN) injection 4 mg 1 03/20 prochlorperazine (COMPAZINE) injection 5 mg 1 03/20/2023 scopolamine patch 72 hour 1 patch 1 023 sodium chloride 0.9% flush 0.5-20 mL 1 11/2022 Discharge Count Last Ordered Date First Orde red Date DISCHARGE PATIENT 1 03/20/2023 documented in this encounter Care Teams Director Sales And Marketing Relationship Specialty Start Date End Date Sylvia Dawson PA [address] [facility] [address] [place], [place] [id number] PCP - General Internal Medicine 01/05/20 Erica Rodrigues MD [address] [address] Radiation Oncologist Radiation Oncology 10/25/18 Gasper Kaba MD [address] [facility] [address] [place] [address] Surgeon Surgical Oncology 10/25/18 Brandy Aguirre, CARINA [address] [facility] [address] [place] [address] Nurse Practitioner Certified Clinical Nurse Specialist 10/25/18 Jo-Ann Morrow, PhD [address] [facility] [address] [place] [address] Nurse Practitioner Radiation Oncology 10/25/18 Christina Louis NP [address] [facility] [address] [place] [address] Nurse Practitioner Medical Oncology 10/25/18 documented as of this encounter
--- OUTSIDE RECORDS SUMMARY | 2024-04-24 05:49 | XMS_ITS | Encounter Summary ---
Author Organization [facility] Healthcare Address [address] [place] [address] Care Team Providers Care Waterfront Director Name Role Phone Erica Rodrigues MD Unavailable Gasper Kaba MD Unavailable Brandy Aguirre SOFTWARE CONFIGURATION MANAGER Unavailable [phone] Jo-Ann Morrow PhD Unavailable [phone] Christina Louis FACILITIES SUPERVISOR Unavailable [phone] Sylvia Dawson Primary Care Provider [phone] Encounter Details Date Type Department Care Team (Late st Contact Info) Description 01/26/2023 Telephone [facility] Interventional Radiology [address] [place] [address] Harmony Vernon RN Social History Tobacco Use Types Packs/Day Years [...] on file Legal 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 Gender Identity Not on file Sexual Orientation Not on file 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 Not on file Not on file documented as of this encounter Miscellaneous Notes * Telephone Encounter - Harmony Vernon RN - 01/26/2023 2:51 PM CDT Preprocedure Phone Call Procedure Time Verified: Yes Arrival Time Verified: Yes Procedure Location Verified: Yes Medical History Reviewed: Yes NPO Status Reinforced: Yes Ride and Caregiver Arranged: Yes Patient Knows to Bring Current Medications: Yes Patient Knows to Bring CPAP: No Is Patient on Home Ventilator?: No Is Patient on Blood Thinners?: Yes (asa 81mg) documented in this encounter Plan of Treatment Not on file documented as of this encounter Visit Diagnoses Not on filedocumented in this encounter Care Teams Waterfront Director Relationship Specialty Start Date End Date Sylvia Dawson PA [address] [address] PCP - General Internal Medicine 01/05/20 Erica Rodrigues MD [address] [facility] [address] [place] [address] Radiation Oncologist Radiation Oncology 10/25/18 Gasper Kaba MD [address] [facility] [address] [place] [address] Surgeon Surgical Oncology 10/25/18 Brandy Aguirre CNS [address] [facility] [address] [place] [address] Nurse Practitioner Certified Clinical Nurse Specialist 10/25/18 Jo-Ann Morrow, PhD [address] [facility] [address] [place] [address] Nurse Practitioner Radiation Oncology 10/25/18 Christina Louis, JENNI [address] [facility] [address] [place], [place] [id number] Nurse Practitioner Medical Oncology 10/25/18 documented as of this encounter
--- OUTSIDE RECORDS SUMMARY | 2024-04-24 05:49 | XMS_ITS | Encounter Summary ---
Author Organization [facility] Address [address] [place] [address] Phone Care Team Providers Care Media Arts Professor Name Role Phone Erica Rodrigues MD Unavailable Gasper Kaba MD Unavailable [phone] Brandy Aguirre TYPECASTING MACHINE OPERATOR Unavailable Jo-Ann Morrow PhD Unavailable [phone] Christina Louis PHARMACY SERVICES REPRESENTATIVE Unavailable [phone] Sylvia Dawson Primary Care Provider [phone] Reason for Visit * Reason Comments Post-op Pain from surgery Encounter Details Date Type Department Care Team (Late st Contact Info) Description 04/08/2023 10:40 AM TEXTILE COATING MACHINE OPERATOR Office [facility] ([facility]) - [facility] ENT [address] [facility] Advanced [facility] 11th [place] [address] [place] [id number] Albin Pereyra MD [address] [place], [place] [id number] Obstructive sleep apnea (Primary Dx) Social History Tobacco Use Types [...] on file Legal Sex Female 3:42 AM TEXTILE COATING MACHINE OPERATOR Gender Identity Not on file Sexual Orientation Not on file 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 Not on file Not on file Not on file documented as of this encounter Last Filed Vital Signs Vital Sign Reading Time Taken Comments Blood Pressure - - Pulse - - Temperature - - Respiratory Rate - - Oxygen Saturation - - Inhaled Oxygen Concentration - - Weight 66.7 kg (147 lb) 04/08/2023 10:41 AM TEXTILE COATING MACHINE OPERATOR Height - - Body Mass Index 26.89 04/02/2023 1:48 PM TEXTILE COATING MACHINE OPERATOR documented in this encounter Progress Notes * Albin Pereyra MD - 04/08/2023 10:40 AM CST [facility] Department of Otolaryngology - Head & Neck Surgery Consultation Report 04/08/2023 Albin Pereyra MD RN: Marley Jones Consultation Requested By: Self Referral Primary Care Provider: Sylvia Dawson PA Patient Name: Yesika Denney Date of : 1960 Chief Complaint Patient presents with Post-op Pain from surgery Problem List Sleep Obstructive sleep apnea - Primary Overview DIAGNOSIS: Obstructive sleep apnea PROCEDURE PERFORMED:(Roddy 03/20/23) Right hypoglossal nerve stimulator implantation Generator placement right chest wall Lead placement right intercostal muscle HISTORY: returns after hypoglossal nerve implantation. No issues. Healing well and swelling resolving. PHYSICAL EXAM: Right submandibular incision well healed. Right subclavicular incision well healed. No marginal nerve weakness. No tongue weakness. IMPRESSION: JOSE s/p hypoglossal nerve stimulator implantation. PLAN: F/U with sleep center as planned for activation and fine-tuning. I will see back in 6 months as needed if there should be any issues. I am happy to see anytime sooner with acute problems. Albin Pereyra M.D. Sonoscope Operator Head & Neck Surgical Oncology and Microvascular Reconstruction Department of Otolaryngology - Head & Neck Surgery [facility] ILE COATING MACHINE OPERATOR documented in this encounter Plan of Treatment Not on file documented as of this encounter Visit Diagnoses Diagnosis Obstructive sleep apnea- Primary Obstructive sleep apnea (adult) (pediatric) documented in this encounter Care Teams Media Arts Professor Relationship Specialty Start Date End Date Sylvia Dawson PA [address] [facility] [address] [place] [address] PCP - General Internal Medicine 01/05/20 Erica Rodrigues MD [address] [facility] [address] [place] [address] Radiation Oncologist Radiation Oncology 10/25/18 Gasper Kaba MD [address] [facility] [address] [place] [address] Surgeon Surgical Oncology 10/25/18 Brandy Aguirre, TYPECASTING MACHINE OPERATOR [address] [facility] [address] [place] [address] Nurse Practitioner Certified Clinical Nurse Specialist 10/25/18 Jo-Ann Morrow, PhD [address] [facility] [address] [place] [address] Nurse Practitioner Radiation Oncology 10/25/18 Christina Louis NP [address] [facility] [address] [place] [address] Nurse Practitioner Medical Oncology 10/25/18 documented as of this encounter
--- OUTSIDE RECORDS SUMMARY | 2024-04-24 05:49 | XMS_ITS | Encounter Summary ---
Author Organization [facility] Address [address] [place] [address] Phone Care Team Providers Care Unclaimed Property Manager Name Role Phone Erica Rodrigues MD Unavailable Gasper Kaba MD Unavailable Brandy Aguirre PIG MACHINE OPERATOR Unavailable [phone] Jo-Ann Morrow PhD Unavailable [phone] Christina Louis AUTO MECHANIC APPRENTICE Unavailable [phone] Sylvia Dawson Primary Care Provider [phone] Encounter Details Date Type Department Care Team (Late st Contact Info) Description 02/24/2023 Orders Only 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 file Not on file Not on file documented as of this encounter Plan of Treatment Scheduled Orders Name Type Priority Associated Diagnoses Orde r Schedule Comprehensive metabolic panel Lab Routine High risk medication use Expected: 05/27/2023, Expires: 02/25/2024 documented as of this encounter Procedures Procedure Name Priority Date/Time Associated Diagnosis Comments CBC WITH AUTO DIFFERENTIAL Routine 02/24/2023 9:13 AM LABORER CAR BARN High risk medication use ERYTHROCYTE SEDIMENTATION RATE Routine 02/24/2023 9:13 AM LABORER CAR BARN High risk medication use CRP (ACUTE PHASE) Routine 02/24/2023 9:1 3 AM LABORER CAR BARN High risk medication use LIPID PANEL Routine 02/24/2023 9:13 AM LABORER CAR BARN High risk medication use documented in this encounter Results * Lipid panel (02/24/2023 9:13 AM LABORER CAR BARN) Cholesterol 198 100 - 199 mg/dL [facility] - 01 Triglycerides 88 0 - 149 mg/dL [facility] - 01 HDL Cholesterol 92 >39 mg/dL [facility] - 01 VLDL 15 5 - 40 mg/dL [facility] - 01 LDL, calculated 91 0 - 99 mg/dL [facility] - 01 Blood 02/24/2023 9:13 AM LABORER CAR BARN 02/24/2023 Narrative [facility] - 02/25/2023 2:08 AM LABORER CAR BARN Performed at: ??01 - [facility] [address], [place], [place] ??[id number] Dietary Cook: John Lozoya PhD, Phone: ??[phone] Patricia Martinez MD LAB BLOOD ORDERABLES Final R esult Performing Organization Address [facility] Co de Phone Number [facility] - 01 * CRP (acute phase) (02/24/2023 9:13 AM LABORER CAR BARN) [facility] CRP <1 0 - 10 mg/L [facility] - 01 Blood 02/24/2023 9:13 AM LABORER CAR BARN 02/24/2023 Narrative [facility] - 02/25/2023 4:08 AM LABORER CAR BARN Performed at: ?? - [facility] [address] ??[id number] Dietary Cook: John Lozoya PhD, Phone: ??[phone] Patricia Martinez MD LAB BLOOD ORDERABLES Final R esult Performing Organization Address [facility] de Phone Number [facility] - 01 * Erythrocyte sedimentation rate (02/24/2023 9:13 AM LABORER CAR BARN) [facility] Erythrocyte sedimentation rate 2 0 - 40 mm/hr [facility] - 01 Blood 02/24/2023 9:13 AM LABORER CAR BARN 02/24/2023 Narrative [facility] - 02/25/2023 4:08 AM LABORER CAR BARN Performed at: ?? - [facility] [address] ??[id number] Dietary Cook: John Lozoya PhD, Phone: ??[phone] Patricia Martinez MD LAB BLOOD ORDERABLES Final R esult Performing Organization Address [facility] Co de Phone Number [facility] - 01 * (ABNORMAL) CBC with auto differential (02/24/2023 9:13 AM LABORER CAR BARN) [facility] WBC 4.2 3.4 - 10.8 x10E3/uL [facility] - 01 RBC 3.89 3.77 - 5.28 x10E6/uL [facility] - 01 Hgb 12.8 11.1 - 15.9 g/dL [facility] - 01 Hct 38.5 34.0 - 46.6 % [facility] - 01 MCV 99(H) 79 - 97 fL [facility] - 01 MCH 32.9 26.6 - 33.0 pg [facility] - 01 MCHC 33.2 31.5 - 35.7 g/dL [facility] - 01 Rdw 13.4 11.7 - 15.4 % [facility] - 01 Platelets 194 150 - 450 x10E3/uL [facility] - 01 Neutrophils pct 52 Not Estab. % [facility] - 01 Lymphs pct 35 Not Estab. % [facility] - 01 Monocytes pct 10 Not Estab. % [facility] - 01 Eosinophils pct 2 Not Estab. % [facility] - 01 Basophil pct 1 Not Estab. % [facility] - 01 Neutrophil abs 2.2 1.4 - 7.0 x10E3/uL [facility] - 01 Lymphs (Absolute) 1.5 0.7 - 3.1 x10E3/uL [facility] - 01 Monocyte abs 0.4 0.1 - 0.9 x10E3/uL [facility] - 01 Eosinophils, abs 0.1 0.0 - 0.4 x10E3/uL [facility] - 01 Basophils, abs 0.0 0.0 - 0.2 x10E3/uL [facility] - 01 Immature Granulocytes 0 Not Estab. % [facility] - 01 Immature Grans (Abs) 0.0 0.0 - 0.1 x10E3/uL [facility] - 01 Blood 02/24/2023 9:13 AM LABORER CAR BARN 02/24/2023 Narrative [facility] - 02/25/2023 12:07 AM LABORER CAR BARN Performed at: ??01 - [facility] [address] ??[id number] Dietary Cook: John Lozoya PhD, Phone: ??[phone] us Patricia Martinez MD LAB BLOOD ORDERABLES Final R esult [facility] 01 documented in this encounter Visit Diagnoses Diagnosis High risk medication use- Primary documented in this encounter Care Teams Unclaimed Property Manager Relationship Specialty Start Date End Date Sylvia Dawson PA [address] [place] [address] PCP - General Internal Medicine 01/05/20 Erica Rodrigues MD [address] [place] [address] Radiation Oncologist Radiation Oncology 10/25/18 Gasper Kaba MD [address] [place] [address] Surgeon Surgical Oncology 10/25/18 Brandy Aguirre, PIG MACHINE OPERATOR [address] [facility] [address] [place] [address] Nurse Practitioner Certified Clinical Nurse Specialist 10/25/18 Jo-Ann Morrow, PhD [address] [place] [address] Nurse Practitioner Radiation Oncology 10/25/18 Christina Louis, AUTO MECHANIC APPRENTICE [address] [place] [address] Nurse Practitioner Medical Oncology 10/25/18 documented as of this encounter
--- OUTSIDE RECORDS SUMMARY | 2024-04-24 05:49 | XMS_ITS | Encounter Summary ---
Author Organization [facility] Address [address] [place] [address] Care Team Providers Care Bi Tri Operator Name Role Phone Erica Rodrigues MD Unavailable Gasper Kaba MD Unavailable Brandy Aguirre INSPECTOR AND TESTER Unavailable [phone] Jo-Ann Morrow PhD Unavailable [phone] Christina Louis AIR TESTER Unavailable [phone] Sylvia Dawson Primary Care Provider [phone] Encounter Details Date Type Department Care Team (Late st Contact Info) Description 01/02/2023 Orders Only [facility] Family Medicine [address] [place] [address] Sylvia Dawson PA [address] [place] [address] Acute cough (Primary Dx); Chest congestion Social History Tobacco Use Types Packs/Day Years [...] on file Legal Sex Female 3:42 AM SILK WINDING MACHINE OPERATOR Gender Identity Not on file Sexual Orientation Not on file 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 Tested positive for COVID on Thursday. TECHNIQUE: 2 ??radiographic view(s) of the chest. COMPARISON: 12/09/2021 FINDINGS: LUNGS: ??No focal opacity, pleural effusion, or pneumothorax. ?? HEART/MEDIASTINUM: ??Cardiac silhouette normal in size. Mediastinal and hilar contours appear normal. LINES/TUBES: ??None. BONES: ??No acute osseous abnormality. IMPRESSION: No acute cardiopulmonary abnormality. THIS IS AN ELECTRONICALLY VERIFIED FINAL REPORT 01/02/2023 12:22 PM - Electronically signed by ??Wallace Cardoso M.D. AG: TARA D: ??01/02/2023 12:22 PM T: ??01/02/2023 12:22 PM Report ID: [id number] Reading Location: ??[id number] Procedure Note Wallace Cardoso MD - 01/02/2023 EXAM DESCRIPTION: XR CHEST PA LATERAL 2 VIEWS REASON FOR STUDY: Ongoing cough and congestion Tested positive for COVID on Thursday. TECHNIQUE: 2 radiographic view(s) of the chest. COMPARISON: 12/09/2021 FINDINGS: LUNGS: No focal opacity, pleural effusion, or pneumothorax. HEART/MEDIASTINUM: Cardiac silhouette normal in size. Mediastinal andhilar contours appear normal. LINES/TUBES: None. BONES: No acute osseous abnormality. IMPRESSION: No acute cardiopulmonary abnormality. THIS IS AN ELECTRONICALLY VERIFIED FINAL REPORT 01/02/2023 12:22 PM - Electronically signed by Wallace Cardoso M.D. AG: AG Report ID: [id number] Reading Location: [place] [address] Sylvia JONES IMG XR PROCEDURES Final Re sult documented in this encounter Visit Diagnoses Diagnosis Acute cough- Primary Chest congestion Other symptoms involving respiratory system and chest Acute cough Chest congestion Other symptoms involving respiratory system and chest documented in this encounter Additional Health Concerns Infection Onset Date Last Indicated Resolved Time COVID19 Comment:IP Review- Patient tested positive on home test on 12/27 after experiencing symptoms. 12/29/22 9:07 AM Valorie Baugh 12/29/2022 12/29/2022 01/08/2023 3:05 AM CDT documented as of this encounter Care Teams Bi Tri Operator Relationship Specialty Start Date End Date Sylvia Dawson PA [address] [place] [address] PCP - General Internal Medicine 01/05/20 Erica Rodrigues MD [address] [place] [address] Radiation Oncologist Radiation Oncology 10/25/18 Gasper Kaba MD [address] [place] [address] Surgeon Surgical Oncology 10/25/18 Brandy Aguirre CNS [address] [facility] [address] [place] [address] Nurse Practitioner Certified Clinical Nurse Specialist 10/25/18 Jo-Ann Morrow, PhD [address] [facility] [address] [facility] [address] [place] [address] Nurse Practitioner Radiation Oncology 10/25/18 Christina Louis, AIR TESTER [address] [facility] [address] [facility] [address] [place] [address] Nurse Practitioner Medical Oncology 10/25/18 documented as of this encounter
--- OUTSIDE RECORDS SUMMARY | 2024-04-24 05:49 | XMS_ITS | Encounter Summary ---
Author Organization [facility] [employer] [facility] Address [address] [place] [address] Phone Care Team Providers Care City Planning Aide Name Role Phone Erica Rodrigues MD Unavailable Gasper Kaba MD Unavailable [phone] Brandy Aguirre CONFERENCE PLANNING MANAGER Unavailable [phone] Jo-Ann Morrow PhD Unavailable [phone] Christina Louis FISCAL SERVICES DIRECTOR Unavailable [phone] Sylvia Dawson Primary Care Provider [phone] Reason for Referral * Consultation (Routine) - Closed Specialty Diagnoses / Procedures Referred By Contac t Referred To Contact Genetics / Pediatric Genetics Diagnoses Benign familial hypermobility Ailyn Stubbs NP Phone: tel: fax: [facility] (All Locations) Referral ID Status Reason Start Date Expiration Date V isits Requested Visits Authorized [id number] Closed Specialty Services Required 03/16/2023 04/14/2024 1 1 Question Answer Please select the performing region: [facility] (All Locations) [[id number]] # of visits: 1 UNICATION TECHNICIAN Encounter Details Date Type Department Care Team (Late st Contact Info) Description 03/16/2023 2:00 PM COMMUNICATION TECHNICIAN Office Visit [facility] Cardiology [address] [place] [address] [place] [address] Ailyn Stubbs NP [address] [place] [address] Benign familial hypermobility (Primary Dx); History of right common carotid artery stent placement; Hypertension, essential; Mixed hyperlipidemia Social History Tobacco Use Types Packs/Day Years [...] on file Legal Sex Female 3:42 AM COMMUNICATION TECHNICIAN Gender Identity Not on file Sexual Orientation Not on file 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 Not on file Not on file documented as of this encounter Last Filed Vital Signs Vital Sign Reading Time Taken Comments Blood Pressure 136/78 03/16/2023 2:04 PM COMMUNICATION TECHNICIAN Pulse 64 03/16/2023 2:04 PM COMMUNICATION TECHNICIAN Temperature - - Respiratory Rate - - Oxygen Saturation 98% 03/16/2023 2:04 PM COMMUNICATION TECHNICIAN Inhaled Oxygen Concentration - - Weight 66.9 kg (147 lb 6.4 oz) 03/16/2023 2:04 P M COMMUNICATION TECHNICIAN Height 160 cm (5' 3 ) 03/16/2023 2:04 PM COMMUNICATION TECHNICIAN Body Mass Index 26.11 03/16/2023 2:04 PM COMMUNICATION TECHNICIAN documented in this encounter Patient Instructions * Patient Instructions* Ailyn Stubbs NP - 03/16/2023 2:00 PM COMMUNICATION TECHNICIAN No changes today. Follow up in 6 months. Take blood pressure daily, one hour after your am medications. Call our office if the top number (systolic) is less than 90 or greater than 140 consistently UNICATION TECHNICIAN documented in this encounter Progress Notes * Ailyn Stubbs NP - 03/16/2023 2:00 PM CST Patient Name: Yesika Denney : : 1960 [...] Obstructive sleep apnea 06/19/2022 RA (rheumatoid arthritis) ([facility]) HISTORY OF PRESENT ILLNESS: 62 y.o. female [...] by mouth every morning) 90 tablet 1 boyajqhqrl-anhstewbadiev-zcqrmfsk-codeine (FIORICET WITH CODEINE) [id number] mg per capsule TAKE 1 CAPSULE BY [...] mouth every morning) 90 tablet 2 vit E-V-ahjwod-zinc-lutein (PreserVision Lutein) 226-90-0.8-5 mg capsule Take 1 [...] The full scanned/data report is available in [employer]. labeled MONITOR STRIPS PDF ASSESSMENT & PLAN: [...] Young in 6 months. Ailyn Stubbs NP UNICATION TECHNICIAN documented in this encounter Miscellaneous Notes * Assessment & Plan Note - Ailyn Stubbs NP - 03/16/2023 4:48 PM COMMUNICATION TECHNICIAN Associated Problem(s): Mixed hyperlipidemia LDL 91 in February 2023. Zetia 10 mg daily. UNICATION TECHNICIAN * Assessment & Plan Note - Ailyn Stubbs NP - 03/16/2023 4:47 PM COMMUNICATION TECHNICIAN Associated Problem(s): Hypertension, essential Controlled, no additional recs. Lisinopril 40 mg daily, atenolol 25 mg daily and HCTZ 12.5 mg PRN. She takes this approximately once a week from her notes. Dr. Young in 6 months. UNICATION TECHNICIAN * Assessment & Plan Note - Ailyn Stubbs NP - 03/16/2023 4:41 PM COMMUNICATION TECHNICIAN Associated Problem(s): History of right common carotid artery stent [...] other connective tissue disorder. ASA and statin. UNICATION TECHNICIAN UNICATION TECHNICIAN documented in this encounter Plan of Treatment Scheduled Referrals Name Type Priority Associated Diagnoses Orde r Schedule Ambulatory referral to Pediatric Genetics Outpatient Referral Routine Benign familial hypermobility Expected: 03/30/2023 (Approximate), Expires: 03/16/2024 documented as of this encounter Visit Diagnoses Diagnosis Benign familial hypermobility- Primary History of right common carotid artery stent placement Hypertension, essential Unspecified essential hypertension Mixed hyperlipidemia documented in this encounter Care Teams City Planning Aide Relationship Specialty Start Date End Date Sylvia Dawson PA [address] [place] [address] PCP - General Internal Medicine 01/05/20 Erica Rodrigues MD [address] [facility] [address] [place] [address] Radiation Oncologist Radiation Oncology 10/25/18 Gasper Kaba MD [address] [place] [address] Surgeon Surgical Oncology 10/25/18 Brandy Aguirre, CONFERENCE PLANNING MANAGER [address] [place] [address] Nurse Practitioner Certified Clinical Nurse Specialist 10/25/18 Jo-Ann Morrow, PhD [address] [place] [address] Nurse Practitioner Radiation Oncology 10/25/18 Christina Louis FISCAL SERVICES DIRECTOR [address] [place] [address] Nurse Practitioner Medical Oncology 10/25/18 documented as of this encounter
--- OUTSIDE RECORDS SUMMARY | 2024-04-24 05:49 | XMS_ITS | Encounter Summary ---
Author Organization [facility] Healthcare Address [address] [place] [address] Care Team Providers Care Talent Management Manager Name Role Phone Erica Rodrigues MD Unavailable Gasper Kaba MD Unavailable Brandy Aguirre CABIN SUPERVISOR Unavailable [phone] Jo-Ann Morrow PhD Unavailable [phone] Christina Louis OFFSHORE WIND OPERATIONS MANAGER Unavailable [phone] Sylvia Dawson Primary Care Provider [phone] Reason for Referral * Consultation (Routine) - Closed Specialty Diagnoses / Procedures Referred By Contac t Referred To Contact Neurology Diagnoses Unequal pupils Sylvia Dawson PA [address] [place] [address] Phone: tel: fax: Joseph Al MD [phone] [address] Phone: tel: fax: Referral ID Status Reason Start Date Expiration Date V isits Requested Visits Authorized [id number] Closed Specialty Services Required 04/12/2023 05/11/2024 1 1 Question Answer Please select the performing region: [facility] (All Locations) [[id number]] To provider: JOSEPH AL [[id number]] # of visits: 1 Comments Unequal pupils C ADAPTER Reason for Visit * Reason Comments Annual Exam Encounter Details Date Type Department Care Team (Late st Contact Info) Description 04/01/2023 3:00 PM MUSIC ADAPTER Office Visit [facility] Family Medicine [address] [place] [id number] Sylvia Dawson PA [address] [place] [address] Annual physical exam (Primary Dx); Mixed hyperlipidemia; Nonintractable headache, unspecified chronicity pattern, unspecified headache type; Obstructive sleep apnea; Aneurysm (CMS/HCC) (HCC); Moderate episode of recurrent major depressive disorder (HCC); Need for immunization against influenza; Rheumatoid 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 (CMS/HCC) (HCC); Unequal pupils; BMI 25.0-25.9,adult Social History Tobacco Use Types Packs/Day Years [...] on file Legal Sex Female 3:42 AM MUSIC ADAPTER Gender Identity Not on file Sexual Orientation Not on file 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 Not on file Not on file Not on file documented as of this encounter Last Filed Vital Signs Vital Sign Reading Time Taken Comments Blood Pressure 118/80 04/01/2023 3:01 PM MUSIC ADAPTER Pulse 64 04/01/2023 3:01 PM MUSIC ADAPTER Temperature 37.1 ??C (98.8 ??F) 04/01/2023 3:01 PM CS T Respiratory Rate - - Oxygen Saturation 98% 04/01/2023 3:01 PM MUSIC ADAPTER Inhaled Oxygen Concentration - - Weight 65.8 kg (145 lb) 04/01/2023 3:01 PM MUSIC ADAPTER Height 160 cm (5' 2.99 ) 04/01/2023 3:01 PM MUSIC ADAPTER Body Mass Index 25.69 04/01/2023 3:01 PM MUSIC ADAPTER documented in this encounter Ordered Prescriptions Prescription Sig Dispense Quantity Refills Last Filled Start Date End Date butalbital-acetamino ahwa-ssobejfa-kstwsd e (FIORICET WITH CODEINE) 89-564-56-30 mg per capsuleIndications:N onintractable headache, unspecified chronicity pattern, unspecified headache type Take 1 capsule by mouth every 6 (six) hours as needed for headaches 10 capsule 04/12/2023 meclizine (ANTIVERT) 12.5 mg tablet Take 1 tablet (12.5 mg total) by mouth 3 (three) times a day as needed for dizziness 20 tablet 04/01/2023 ezetimibe (ZETIA) 10 mg tabletIndications:Mi xed hyperlipidemia Take 1 tablet (10 mg total) by mouth daily 90 tablet 2 04/01/2023 4 FLUoxetine (PROzac) 10 mg tablet/capsule Take 1 tablet/capsule (10 mg total) by mouth daily 90 capsule 04/01/2023 4 documented in this encounter Progress Notes * Sylvia Dawson PA - 04/01/2023 3:00 PM CST Images from the original note were not included. Subjective/Objective Patient ID: Yesika Denney is a 62 y.o. female. Chief Complaint Annual Exam HPI Patient presents for wellness. January noted different sized pupils. She is concerned as she doesn't understand why her pupils aredifferent sizes. Seeing Dr. Lawrence Had been doing drops after victrectomy -- he didn't notice it until pt said it. She had noted blurred vision while on the drops so she tapered them and has been off a week and the vision is improving. Saw Neurology Dr. Green in [place] and he stated that pupils equal and reactive but didn't have a reason She requested referral to Vascular Neurology for history aneurysm. - but may benefit from Neuro Ophthalmology. --Has had CTA Head and neck as well as MRA Head Inspire was inserted for the device. Hasn't been activated yet. Followup next week. On oxycodone as she is noting pain up her neck that she describes as nerve pain --- She has been given Oxycodone but doesn't like taking it due to side effects. Inquires about gabapentin. Still uses fioricet with codeine -- wants to refill now States Dr. Green offered other meds and she declined. Wants to taper the prozac. Was for hotflashes -- HTN - Lisinopril 40 and atenolol 25, HCTZ 12.5 HLD - Zetia RA - MTX, sulfasalazine and folic acid. Mamm 03/2022 Colonoscopy 02/2020--->2030 Tdap 2021 Shingrix done x 2 Review of Systems See HPI Vitals: 04/01/23 1501 BP: 118/80 BP Location: Left arm Patient Position: Sitting Pulse: 64 Temp: 37.1 ??C (98.8 ??F) TempSrc: Oral SpO2: 98% Weight: 65.8 kg (145 lb) Height: 160 cm (5' 2.99 ) Physical Exam Vitals and nursing note [...] health. Reviewed immunizations Reviewed age appropirate screenings. Mixed hyperlipidemia (E78.2) Assessment & Plan: Encouraged patient to follow low fat/low chol diet like the Mediterranean diet. Increase good fats in the diet. Increase exercise. Monitor labs as needed. Continue Zetia Orders: - ezetimibe (ZETIA) 10 mg tablet; Take 1 tablet (10 mg total) by mouth daily Nonintractable headache, unspecified chronicity pattern, unspecified headache type (R51.9) Assessment & Plan: Patient consulted with Dr. Carpio neurologist in [place] for her headaches. He is offered multiple options for headache treatment but she still feels like the Fioricet is what works best for her. She would like a refill. 10. Sent Orders: - biccodahgx-bwvztklbekqwn-ifuhefcz-codeine (FIORICET WITH CODEINE) 37-267-97-30 mg per capsule; Take 1 capsule by mouth every 6 (six) hours as needed for headaches Obstructive sleep apnea (G47.33) Assessment & Plan: DIAGNOSIS: Obstructive sleep apnea PROCEDURE PERFORMED:(Roddy 03/20/23) Right hypoglossal nerve stimulator implantation Generator placement right chest wall Lead placement right intercostal muscle Patient continues to complain of nerve type pain in the area. She is requesting gabapentin. One hundred b.i.d. sent to pharmacy to trial. Reviewed risks benefits alternatives side effects and proper use Aneurysm ([facility]) ([facility]) (I72.9) Assessment & Plan: Continue per Neurology. Moderate episode of recurrent major depressive disorder (HCC) (F33.1) Assessment & Plan: Stable. Patient would like to try to taper since she feels like she is taking it more for the hot flashes. Will decrease the Prozac to 10 mg. Reassess in 3-4 months to continue taper as appropriate Need for immunization against influenza (Z23) Assessment & Plan: Flu vaccine updated in the office today Rheumatoid 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 ([facility]) ([facility]) (M06.09) Assessment & Plan: Continue per Rheumatology. She is currently on methotrexate sulfasalazine and folic acid Unequal pupils (H57.02) Assessment & Plan: Patient noted different sized pupils in January. Has been seeing Dr. Adame as well as neurologist and patient still states she is not sure why this is occurring. Encouraged her to follow back up with Ophthalmology her retinal specialist. She would like to see neuro events solutions consultant for another opinion. Will place the referral to Dr. Al at [facility] Orders: - Ambulatory referral to Neurology; Future BMI 25.0-25.9,adult (Z68.25) Assessment & Plan: Weight/BMI is in healthy range. Continue healthy lifestyle to maintain. Other orders - Flu Vaccine Quad PF 6m+ IM - Fluarix / FluLaval / Fluzone - FLUoxetine (PROzac) 10 mg tablet/capsule; Take 1 tablet/capsule (10 mg total) by mouth daily - meclizine (ANTIVERT) 12.5 mg tablet; Take 1 tablet (12.5 mg total) by mouth 3 (three) times a dayas needed for dizziness *This note is dictated using Onit voice recognition software, variances in spelling and vocabulary are possible and unintentional.* Sylvia Dawson PA-C C ADAPTER documented in this encounter Miscellaneous Notes * Assessment & Plan Note - Sylvia Dawson PA - 04/12/2023 10:51 PM MUSIC ADAPTER Associated Problem(s): Need for immunization against influenza Flu vaccine updated in the office today C ADAPTER * Assessment & Plan Note - Sylvia Dawson PA - 04/12/2023 10:50 PM MUSIC ADAPTER Associated Problem(s): Mixed hyperlipidemia Encouraged patient to follow low fat/low chol diet like the Mediterranean diet. Increase good fats in the diet. Increase exercise. Monitor labs as needed. Continue Zetia C ADAPTER * Assessment & Plan Note - Sylvia Dawson PA - 04/12/2023 10:50 PM MUSIC ADAPTER Associated Problem(s): Headache Patient consulted with Dr. Carpio neurologist in [place] for her headaches. He is offered multiple options for headache treatment but she still feels like the Fioricet is what works best for her. She would like a refill. 10. Sent C ADAPTER * Assessment & Plan Note - Sylvia Dawson PA - 04/12/2023 10:50 PM MUSIC ADAPTER Associated Problem(s): Annual physical exam Encouraged healthy lifestyle, good nutrition and exercise. Encouraged Calcium and Vitamin D and weight bearing exercise for bone health. Reviewed immunizations Reviewed age appropirate screenings. C ADAPTER * Assessment & Plan Note - Sylvia Dawson PA - 04/12/2023 10:50 PM MUSIC ADAPTER Associated Problem(s): Obstructive sleep apnea DIAGNOSIS: Obstructive sleep apnea PROCEDURE PERFORMED:(Roddy 03/20/23) Right hypoglossal nerve stimulator implantation Generator placement right chest wall Lead placement right intercostal muscle Patient continues to complain of nerve type pain in the area. She is requesting gabapentin. One hundred b.i.d. sent to pharmacy to trial. Reviewed risks benefits alternatives side effects and proper use C ADAPTER * Assessment & Plan Note - Sylvia Dawson PA - 04/12/2023 10:48 PM MUSIC ADAPTER Associated Problem(s): Aneurysm (CMS/HCC) (HCC) Continue per Neurology. C ADAPTER * Assessment & Plan Note - Sylvia Dawson PA - 04/12/2023 10:48 PM MUSIC ADAPTER Associated Problem(s): Moderate episode of recurrent major depressive disorder (HCC) Stable. Patient would like to try to taper since she feels like she is taking it more for the hot flashes. Will decrease the Prozac to 10 mg. Reassess in 3-4 months to continue taper as appropriate C ADAPTER * Assessment & Plan Note - Sylvia Dawson PA - 04/12/2023 10:48 PM MUSIC ADAPTER Associated Problem(s): Rheumatoid arthritis with negative rheumatoid factor (HCC) Continue per Rheumatology. She is currently on methotrexate sulfasalazine and folic acid C ADAPTER * Assessment & Plan Note - Sylvia Dawson PA - 04/12/2023 10:48 PM MUSIC ADAPTER Associated Problem(s): Unequal pupils Patient noted different sized pupils in January. Has been seeing Dr. Adame as well as neurologist and patient still states she is not sure why this is occurring. Encouraged her to follow back up with Ophthalmology her retinal specialist. She would like to see neuro events solutions consultant for another opinion. Will place the referral to Dr. Al at [facility] C ADAPTER * Assessment & Plan Note - Flora Lion MA - 04/01/2023 3:05 PM MUSIC ADAPTER Associated Problem(s): BMI 26.0-26.9,adult Weight/BMI is in healthy range. Continue healthy lifestyle to maintain. C ADAPTER documented in this encounter Plan of Treatment Scheduled Referrals Name Type Priority Associated Diagnoses Order Schedule Ambulatory referral to Neurology Outpatient Referral Routine Unequal pupils Expected: 04/26/2023 (Approximate), Expires: 04/12/2024 documented as of this encounter Visit Diagnoses Diagnosis Annual physical exam- Primary Routine general medical examination at a health care facility Mixed hyperlipidemia Nonintractable headache, unspecified chronicity pattern, unspecified headache type Obstructive sleep apnea Obstructive sleep apnea (adult) (pediatric) Aneurysm (CMS/HCC) (HCC) Other aneurysm of unspecified site Moderate episode of recurrent major depressive disorder (HCC) Need for immunization against influenza Need for prophylactic vaccination and inoculation against influenza Rheumatoid 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 (CMS/HCC) (HCC) Unequal pupils Anisocoria BMI 25.0-25.9,adult documented in this encounter Discontinued Medications Medication Sig Discontinue Reason Start Date End Da te FLUoxetine (PROzac) 20 mg capsuleIndications:Vasomo tor symptoms due to menopause TAKE 1 CAPSULE(20 MG) BY MOUTH TWICE DAILY 01/23/2023 04/01/2023 ezetimibe (ZETIA) 10 mg tabletIndications:Mixed hyperlipidemia Take 1 tablet (10 mg total) by mouth daily Reorder 08/06/2022 04/01/2023 oxyCODONE (ROXICODONE) 5 mg immediate release tabletIndications:Pain Take 1 tablet (5 mg total) by mouth every 4 (four) hours as needed for pain 03/20/2023 04/01/2023 butalbital-acetaminophen- caffeine-codeine (FIORICET WITH CODEINE) 37-220-00-30 mg per capsuleIndications:Nonint ractable headache, unspecified chronicity pattern, unspecified headache type TAKE 1 CAPSULE BY MOUTH EVERY 4 HOURS NEEDED FOR HEADACHE Reorder 11/18/2022 04/01/2023 documented as of this encounter Orders Immunization/Injection Count Last Ordered Date First Ordered Date FLU VACCINE QUAD PF 6M+ IM - FLUARIX / FLULAVAL / FLUZONE- SYRINGE 1 04/01/2023 documented in this encounter Care Teams Talent Management Manager Relationship Specialty Start Date End Date Sylvia Dawson PA [address] [facility] [address] [place] [address] PCP - General Internal Medicine 01/05/20 Erica Rodrigues MD [address] [facility] [address] [place] [address] Radiation Oncologist Radiation Oncology 10/25/18 Gasper Kaba MD [address] [facility] [address] [place] [address] Surgeon Surgical Oncology 10/25/18 Brandy Aguirre CNS [address] [facility] [address] [place] [address] Nurse Practitioner Certified Clinical Nurse Specialist 10/25/18 Jo-Ann Morrow, PhD [address] [facility] [address] [facility] [address] [place] [address] Nurse Practitioner Radiation Oncology 10/25/18 hCristina Louis, OFFSHORE WIND OPERATIONS MANAGER [address] [facility] [address] [place] [address] Nurse Practitioner Medical Oncology 10/25/18 documented as of this encounter
--- OUTSIDE RECORDS SUMMARY | 2024-04-24 05:49 | XMS_ITS | Encounter Summary ---
Author Organization [facility] Address [address] [place] [address] Phone Care Team Providers Care Ingot Weigher Name Role Phone Erica Rodrigues MD Unavailable Gasper Kaba MD Unavailable Brandy Aguirre TECHNOLOGY SPECIALIST Unavailable [phone] Jo-Ann Morrow PhD Unavailable [phone] Christina Louis SIGN LANGUAGE TEACHER Unavailable [phone] Sylvia Dawson Primary Care Provider [phone] Jessy Adame MD Unavailable Harpal Carpio MD Unavailable Rossana Chucrh DNP Unavailable Zahida Kaplan Unavailable Fadi Cook Unavailable Harpal De León MD Unavailable Valorie Young MD Unavailable [phone] Patricia Martinez MD Unavailable [phone] Reason for Visit * Reason Onset Date Comments new pt appt req 04/14/2023 Encounter Details Date Type Department Care Team (Late st Contact Info) Description 04/14/2023 Telephone [facility] Ophthalmology [address] [place] [address] Joseph Al MD [address] [facility] [address] [place] [address] new pt appt req Social History Tobacco Use Types Packs/Day Years [...] on file Legal Sex Female 3:42 AM BUSINESS INTELLIGENCE ETL DEVELOPER Gender Identity Not on file Sexual Orientation Not on file 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 It also looks like Dr. Al may be opening additional clinics on , 04/16/23 and 04/17/23, so these should be offered. NESS INTELLIGENCE ETL DEVELOPER * Telephone Encounter - Pebbles Toney - 04/14/2023 10:57 AM CST Medical review - notes in [facility] Dx: unequal pupils/ Established w/ Dr. Adame last seen 03/12/23. Pt requested another opinion from Neuro Op. NESS INTELLIGENCE ETL DEVELOPER * Telephone Encounter - Huy Paredes - 04/14/2023 8:35 AM CST New PT APPT Request: Who pt is being referred to: Dr. Al Reason/Diagnoses: unequal pupils Referring doctor: Sylvia Dawson PA Referring doctor contact information: n/a How soon: routine Transfer of care or 2nd opinion? N/a Were notes requested? Notes in [facility] Additional comments: Established w/ Dr. Adame last seen 03/12/23. Pt requested another opinion from Neuro Op. NESS INTELLIGENCE ETL DEVELOPER documented in this encounter Plan of Treatment Not on file documented as of this encounter Visit Diagnoses Not on filedocumented in this encounter Care Teams Ingot Weigher Relationship Specialty Start Date End Date Sylvia Dawson PA [address] [place] [address] PCP - General Internal Medicine 01/05/20 Erica Rodrigues MD [address] [facility] [address] [place] [address] Radiation Oncologist Radiation Oncology 10/25/18 Gasper Kaba MD [address] [place] [address] Surgeon Surgical Oncology 10/25/18 Brandy Aguirre, TECHNOLOGY SPECIALIST [address] [facility] [address] [place] [address] Nurse Practitioner Certified Clinical Nurse Specialist 10/25/18 Jo-Ann Morrow, PhD [address] [facility] [address] [place] [address] Nurse Practitioner Radiation Oncology 10/25/18 Christina Louis, SIGN LANGUAGE TEACHER [address] [facility] [address] [place] [address] Nurse Practitioner Medical Oncology 10/25/18 Jessy Adame MD [address] [facility] DEPT OPHTHALMOLOGY, [address] [place] [address] Consulting Physician Retina Ophthalmology 04/15/23 Harpal Carpio MD [address] [place] [address] Neurologist Neurology 04/15/23 Rossana Church DNP [address] [place] [address] Nurse Practitioner Nurse Practitioner 04/15/23 Zahida Kaplan PA [address] DIV NEUROLOGY GENERAL, [address] [address] Physician Gold Wheel Blocker And Polisher Physician Gold Wheel Blocker And Polisher 04/15/23 Fadi Cook PA [address] DIV NEUROLOGY SLEEP MED, [address] [address] Physician Gold Wheel Blocker And Polisher Sleep Medicine 04/15/23 Harpal De León MD [address] [place] [address] Etch Operator Semiconductor Wafers Cardiology 04/15/23 Valorie Young MD [address] [facility] [address] [place] [address] Etch Operator Semiconductor Wafers Cardiology 04/15/23 Patricia Martinez MD [address] [facility] [address] DIV IM RHEUMATOLOGY, [facility] [address] [place] [address] Consulting Physician Rheumatology 04/15/23 documented as of this encounter
--- OUTSIDE RECORDS SUMMARY | 2024-04-24 05:49 | XMS_ITS | Encounter Summary ---
Author Organization [facility] Healthcare Address [address] [place] [address] Care Team Providers Care .Net Architect Name Role Phone Erica Rodrigues MD Unavailable Gasper Kaba MD Unavailable [phone] Brandy Aguirre LAMINATING PRESS OPERATOR Unavailable [phone] Jo-Ann Morrow PhD Unavailable [phone] Christina Louis PHOTOGRAMMETRIST Unavailable [phone] Sylvia Dawson Primary Care Provider [phone] Encounter Details Date Type Department Care Team (Late st Contact Info) Description 12/29/[address] 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 documented in this encounter Plan of Treatment [...] documented as of this encounter Care Teams .Net Architect Relationship Specialty Start Date End Date Sylvia Dawson PA [address] [facility] [address] [place] [address] PCP - General Internal Medicine 01/05/20 Erica Rodrigues MD [address] [facility] [address] [place] [address] Radiation Oncologist Radiation Oncology 10/25/18 Gasper Kaba MD [address] [facility] [address] [place] [address] Surgeon Surgical Oncology 10/25/18 Brandy Aguirre CNS [address] [facility] [address] [place] [address] Nurse Practitioner Certified Clinical Nurse Specialist 10/25/18 Jo-Ann Morrow, PhD [address] [facility] [address] LL [address] [place] [address] Nurse Practitioner Radiation Oncology 10/25/18 Christina Louis NP [address] [facility] [address] [place] [address] Nurse Practitioner Medical Oncology 10/25/18 documented as of this encounter
--- OUTSIDE RECORDS SUMMARY | 2024-04-24 05:49 | XMS_ITS | Encounter Summary ---
Author Organization [facility] Healthcare Address [address] [place] [address] Care Team Providers Care Semiconductor Bonder Name Role Phone Erica Rodrigues MD Unavailable Gasper Kaba MD Unavailable [phone] Brandy Aguirre BASIN TENDER Unavailable [phone] Jo-Ann Morrow PhD Unavailable [phone] Christina Louis DIELECTRIC EMBOSSING MACHINE OPERATOR Unavailable Sylvia Dawson Primary Care Provider [phone] Encounter Details Date Type Department Care Team (Latest Contact Info) Description 01/02/2023 11:28 AM CDT - 01/02/2023 11:59 PM CDT Hospital Encounter [facility] Diagnostic Imaging [address] [place] [address] [id number] Acute cough; Chest congestion Discharge Disposition: Discharge to home or self [...] on file 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 Gender Identity Not on file Sexual Orientation Not on file 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 Not on file Not on file [...] 1 tablet by mouth every morning vit Q-N-crmkzt-zinc-lut ein (PreserVision Lutein) 226-90-0.8-5 mg capsuleIndications: Eye support Take 1 tablet by mouth 2 (two) times a day atenoloL (TENORMIN) 25 mg tablet TAKE 1 TABLET(25 MG) BY MOUTH DAILY 90 tablet 1 3 03/19/20 23 butalbital-acetamin kmcda-boulahbg-inio ine (FIORICET WITH CODEINE) 56-898-28-30 mg per capsuleIndications: Nonintractable headache, unspecified chronicity [...] mg capsuleIndications: Vasomotor symptoms due to menopause Take 1 capsule (20 mg total) by mouth 2 (two) times a day 180 capsule 1 2 01/24/20 23 folic acid (FOLVITE) 1 mg tablet Take 2 tablets (2,000 mcg total) by mouth daily 180 tablet 3 3 09/03/19 24 guaiFENesin-codeine (GUAITUSS AC) liquid 100-10 mg/5 mLIndications:Cough Take 5-10 mL by mouth every 4 (four) hours as needed for cough 180 mL 3 01/06/20 23 hydroCHLOROthiazide (HYDRODIURIL) 12.5 mg tablet TAKE 1 [...] BY MOUTH TWICE DAILY 360 tablet 3 01/22/20 23 valACYclovir (Valtrex) 500 mg tabletIndications:R ecurrent cold [...] XR CHEST PA LATERAL 2 VIEWS Schedule BELLE, Read BELLE (Appt Today, Awaiting Results) 01/02/2023 11:39 AM CDT Acute cough Chest congestion documented in this encounter Results * XR Chest PA [...] Electronically signed by ??Wallace Cardoso M.D. AG: AG D: ??01/02/2023 12:22 PM T: ??01/02/2023 12:22 PM Report ID: [id number] Reading Location: ??[id number] Procedure Note Wallace Cardoso MD - 01/02/2023 [...] Wallace Cardoso M.D. AG: AG Report ID: [id number] Reading Location: [id number] Sylvia JONES IMG XR PROCEDURES Final Re sult documented in this encounter Visit Diagnoses Diagnosis Acute cough Chest congestion Other symptoms involving respiratory system and chest documented in this encounter Additional Health Concerns Infection Onset Date Last Indicated Resolved Time COVID19 Comment:IP Review- Patient tested positive on home test on 12/27 after experiencing symptoms. 12/29/22 9:07 AM Valorie Baugh 12/29/2022 12/29/2022 01/08/2023 3:05 AM CDT documented as of this encounter Care Teams Semiconductor Bonder Relationship Specialty Start Date End Date Sylvia Dawson PA [address] [facility] [address] [place] [address] PCP - General Internal Medicine 01/05/20 Erica Rodrigues MD [address] [place] [address] Radiation Oncologist Radiation Oncology 10/25/18 Gasper Kaba MD [address] [place] [address] Surgeon Surgical Oncology 10/25/18 Brandy Aguirre, CARINA [address] [place] [address] Nurse Practitioner Certified Clinical Nurse Specialist 10/25/18 Jo-Ann Morrow, PhD [address] [place] [address] Nurse Practitioner Radiation Oncology 10/25/18 Christina Louis DIELECTRIC EMBOSSING MACHINE OPERATOR [address] [place] [address] Nurse Practitioner Medical Oncology 10/25/18 documented as of this encounter
--- OUTSIDE RECORDS SUMMARY | 2024-04-24 05:49 | XMS_ITS | Encounter Summary ---
Author Organization [facility] Healthcare Address [address] [place] [address] Care Team Providers Care Yardage Caller Name Role Phone Erica Rodrigues MD Unavailable Gasper Kaba MD Unavailable Brandy Aguirre CHRONOMETER ADJUSTER Unavailable [phone] Jo-Ann Morrow PhD Unavailable [phone] Christina Louis STOCK CLIPPER Unavailable [phone] Sylvia Dawson Primary Care Provider [phone] Encounter Details Date Type Department Care Team (Late st Contact Info) Description 12/24/2022 Telephone [facility] Neuro Interventional Radiology [address] [place] [address] Harmony Vernon RN Social History Tobacco Use [...] on file Legal Sex Female 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 PAEDIATRICIAN Gender Identity Not on file Sexual Orientation Not on file 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 Not on file Not on file Not on file documented as of this encounter Miscellaneous Notes * Telephone Encounter - Harmony Vernon RN - 12/24/2022 1:01 PM CDT Preprocedure Phone Call Procedure Time Verified: Yes Arrival Time Verified: Yes Procedure Location Verified: Yes Medical History Reviewed: Yes NPO Status Reinforced: Yes Ride and Caregiver Arranged: Yes Patient Knows to Bring Current Medications: Yes Patient Knows to Bring CPAP: No Is Patient on Home Ventilator?: No Is Patient on Blood Thinners?: Yes (asa 81) documented in this encounter Plan of Treatment Not on file documented as of this encounter Visit Diagnoses Not on filedocumented in this encounter Care Teams Yardage Caller Relationship Specialty Start Date End Date Sylvia Dawson PA [address] [facility] [address] [place] [address] PCP - General Internal Medicine 01/05/20 Erica Rodrigues MD [address] [facility] [address] [place] [address] Radiation Oncologist Radiation Oncology 10/25/18 Gasper Kaba MD [address] [facility] [address] [place] [address] Surgeon Surgical Oncology 10/25/18 Brandy Aguirre CNS [address] [facility] [address] [place] [address] Nurse Practitioner Certified Clinical Nurse Specialist 10/25/18 Jo-Ann Morrow, PhD [address] [facility] [address] [place] [address] Nurse Practitioner Radiation Oncology 10/25/18 Christina Louis NP [address] [facility] [address] [place], [place] [id number] Nurse Practitioner Medical Oncology 10/25/18 documented as of this encounter
--- OUTSIDE RECORDS SUMMARY | 2024-04-24 05:49 | XMS_ITS | Encounter Summary ---
Author Organization [facility] Address [address] [place] [address] Phone Care Team Providers Care Towel Weaver Name Role Phone Erica Rodrigues MD Unavailable Gasper Kaba MD Unavailable Brandy Aguirre INTAKE NURSE Unavailable [phone] Jo-Ann Morrow PhD Unavailable Christina Louis HEATING TECHNICIAN Unavailable [phone] Sylvia Dawson Primary Care Provider [phone] Jessy Adame MD Unavailable Harpal Carpio MD Unavailable [phone] Rossana Church DNP Unavailable Zahida Kaplan Unavailable Fadi Cook Unavailable [phone] Harpal De León MD Unavailable Valorie Young MD Unavailable [phone] Patricia Martinez MD Unavailable Reason for Visit * Reason Onset Date Comments Prior Auth 03/31/2023 Encounter Details Date Type Department Care Team (Late st Contact Info) Description 03/31/2023 Telephone [facility] Pediatric Genetics [facility] 2nd [place] [address] [place] [address] Nazanin Galaviz BS Prior Auth Social History Tobacco Use Types Packs/Day Years [...] on file Legal Sex Female 3:42 AM [employer] [facility] OPERATOR Gender Identity Not on file Sexual Orientation Not on file 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 Cerebral arterial aneurysm Cerebral aneurysm, nonruptured Myopia of both eyes Benign familial hypermobility documented in this encounter Care Teams Towel Weaver Relationship Specialty Start Date End Date Sylvia Dawson PA [address] [facility] [facility] [address] [address] [place] [address] PCP - General Internal Medicine 01/05/20 Erica Rodrigues MD [address] LL [facility] [address] [place] [address] Radiation Oncologist Radiation Oncology 10/25/18 Gasper Kaba MD [address] LL [facility] [address] [place] [address] Surgeon Surgical Oncology 10/25/18 Brandy Aguirre, INTAKE NURSE [address] LL [facility] [address] [place] [address] Nurse Practitioner Certified Clinical Nurse Specialist 10/25/18 Jo-Ann Morrow, PhD [address] [facility] [address] [place] [address] Nurse Practitioner Radiation Oncology 10/25/18 Christina Louis, HEATING TECHNICIAN [address] LL [facility] [address] [place] [address] Nurse Practitioner Medical Oncology 10/25/18 Jessy Adame MD [address] [facility]PT [facility]PHTHALMOLOGY, [address] [place] [address] Consulting Physician Retina Ophthalmology 04/15/23 Harpal Carpio MD [address] [place] [address] Neurologist Neurology 04/15/23 Rossana Church DNP [address] [address] Nurse Practitioner Nurse Practitioner 04/15/23 Zahida Kaplan PA [address] DIV NEUROLOGY [facility] [address] [place] [address] Physician Barrel Handler Physician Barrel Handler 04/15/23 Fadi Cook PA [address] DIV NEUROLOGY SLEEP [facility], [facility] [address] [place] [address] Physician Barrel Handler Sleep Medicine 04/15/23 Harpal De León MD [address] [facility] [address] [address] Delivery Driver Assistant Cardiology 04/15/23 Valorie Young MD [address] [facility] [address] [place] [address] Delivery Driver Assistant Cardiology 04/15/23 Patricia Martinez MD [address] [facility] DIV IM RHEUMATOLOGY, [address] [address] Consulting Physician Rheumatology 04/15/23 documented as of this encounter
--- OUTSIDE RECORDS SUMMARY | 2024-04-24 05:49 | XMS_ITS | Encounter Summary ---
Author Organization [facility] Healthcare Address [address] [place] [address] Care Team Providers Care Head Of Music Name Role Phone Erica Rodrigues MD Unavailable Gasper Kaba MD Unavailable [phone] Brandy Aguirre CABLE RIGGER Unavailable Jo-Ann Morrow PhD Unavailable [phone] Christina Louis PAPERBACK MACHINE OPERATOR Unavailable [phone] Sylvia Dawson Primary Care Provider [phone] Encounter Details Date Type Department Care Team (Late st Contact Info) Description 04/03/2023 Orders Only [facility] Medical Group Family Medicine [address] [facility] [place] [address] Sylvia Dawson PA [address] [facility] [address] [place] [address] Social History Tobacco Use Types [...] on file Legal Sex Female 3:42 AM VP PROJECT Gender Identity Not on file Sexual Orientation Not on file 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 Not on file Not on file documented as of this encounter Ordered Prescriptions Prescription Sig Dispense Quantity Refills Last Filled Start Date End Date gabapentin (NEURONTIN) 100 mg capsule Take 1 capsule (100 mg total) by mouth 2 (two) times a day 60 capsule 1 04/03/2023 4 documented in this encounter Plan of Treatment Not on file documented as of this encounter Visit Diagnoses Not on filedocumented in this encounter Care Teams Head Of Music Relationship Specialty Start Date End Date Sylvia Dawson PA [address] [place] [id number] PCP - General Internal Medicine 01/05/20 Erica Rodrigues MD [address] [facility] [address] [place] [address] Radiation Oncologist Radiation Oncology 10/25/18 Gasper Kaba MD [address] LL [facility] [address] [place] [address] Surgeon Surgical Oncology 10/25/18 Brandy Aguirre CNS [address] [place] [address] Nurse Practitioner Certified Clinical Nurse Specialist 10/25/18 Jo-Ann Morrow, PhD [address] [facility] [address] [place] [address] Nurse Practitioner Radiation Oncology 10/25/18 Christina Louis NP [address] [facility] [address] [place] [address] Nurse Practitioner Medical Oncology 10/25/18 documented as of this encounter
--- OUTSIDE RECORDS SUMMARY | 2024-04-24 05:49 | XMS_ITS | Encounter Summary ---
Author Organization [facility] Address [address] [place] [address] Phone Care Team Providers Care [employer] Flatbed Truck Driver Name Role Phone Erica Rodrigues MD Unavailable Gasper Kaba MD Unavailable Brandy Aguirre BANK NOTE DESIGNER Unavailable [phone] Jo-Ann Morrow PhD Unavailable [phone] Christina Louis MATHEMATICS ACADEMIC CHAIR Unavailable [phone] Sylvia Dawson Primary Care Provider [phone] Reason for Referral * Diagnostic Imaging (Routine) - Closed Specialty Diagnoses / Procedures Referred By Contac t Referred To Contact Diagnoses Cystoid macular edema of both eyes Procedures OCT, Retina - OU - Both Eyes Jacek Joyce MD Phone: tel: fax: [facility] (All Locations) Referral ID Status Reason Start Date Expiration Date Visits Re quested Visits Authorized [id number] Closed 12/18/2022 01/17/2024 1 1 Reason for Visit * Reason Comments Cystoid macular edema of both eyes Encounter Details Date Type Department Care Team (Late st Contact Info) Description 12/18/2022 9:00 AM CDT Office Visit [facility] Ophthalmology [address] [place] [address] Outpatient Health 6th [place] [address] Jessy Adame MD [address] [facility] [address] [place] [address] Cystoid macular edema of both eyes (Primary Dx) Social History [...] on file Legal Sex Female 3:42 AM CAREER AGENT Gender Identity Not on file Sexual Orientation Not on file 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 10 mL 3 12/18/2022 3 documented in this encounter Progress Notes * Jessy Adame MD - 12/18/2022 9:00 AM CDT ASSESSMENT/ORDERS/PROCEDURES PERFORMED TODAY Chief Complaint Patient presents with Cystoid macular edema of both eyes HPI 4 week f/u- CME OU, scleritis OS S/p PPV OD 09/23/22 No pain, redness, FF, or new distortion. Feels eyes are improving. Ocular meds: Durezol QID OD, AFT prn OU, Methotrexate weekly (every ), FA 2g weekly Last edited by Mirtha Fisher on 12/18/2022 9:19 AM. Assessment/Plan Diagnoses and all orders for this visit: Cystoid macular edema of both eyes (Primary) Assessment & Plan: Patient on durezol QID OD- good improvement. Will slowly taper from durezol. Orders: - OCT, Retina - OU - Both Eyes - difluprednate (DUREZOL) 0.05 % drops; Administer 1 drop into the right eye 3 (three) times a day for 14 days, THEN 1 drop 2 (two) times a day for 14 days, THEN 1 drop daily for 14 days. OCT, Retina - OU - Both Eyes Right Eye Quality was good. Scan locations included subfoveal. Progression has improved. Left Eye Quality was good. Scan locations included subfoveal. Progression has been stable. Notes OD: no fluid OS: no fluid The signs and symptoms of retinal detachment, tears, infection, elevated intra- ocular pressure werereviewed with the patient. Patient knows to call should they have any of the symptoms. PLAN FOR NEXT VISIT Follow-up and Dispositions Return in about 6 weeks (around 01/29/2023) for Dilated exam OU, OCT OU. I have examined the patient, reviewed and edited the chart as needed, and discussed the findings, diagnosis and plan with the resident. I agree with the findings, diagnosis, plan that we have createdand documented. Jessy Adame MD documented in this encounter Miscellaneous Notes * Assessment & Plan Note - Jacek Joyce MD - 12/18/2022 9:58 AM CDT Associated Problem(s): Cystoid macular edema of both eyes Patient on durezol QID OD- good improvement. Will slowly taper from durezol. documented in this encounter Plan of Treatment Not on file documented as of this encounter Procedures Procedure Name Priority Date/Time Associated Diagnosis Comments OCT, RETINA - OU - BOTH EYES Routine 12/18/2022 10:01 AM CDT Cystoid macular edema of both eyes documented in this encounter Results * OCT, Retina - OU - Both Eyes (12/18/2022 10:01 AM CDT) Anatomical Region Laterality Modality Head Optical Coherenc e Tomography Narrative 12/18/2022 10:01 AM CDT Right Eye Quality was good. Scan locations included subfoveal. Progression has improved. Left Eye Quality was good. Scan locations included subfoveal. Progression has been stable. Notes OD: no fluid OS: no fluid Jacek Joyce MD OPHTH TOMOGRAPHY Final Result documented in this encounter Visit Diagnoses Diagnosis Cystoid macular edema of both eyes- Primary Cystoid macular degeneration of retina documented in this encounter Discontinued Medications Medication Sig Discontinue Reason Start Date End Da te difluprednate (DUREZOL) 0.05 % dropsIndications:Cysto id macular edema of both eyes Administer 1 drop into the right eye 4 (four) times a day Reorder 10/16/2022 12/18/2022 documented as of this encounter Eye Exam Visual Acuity (Snellen - Linear) Right eye Left eye Dist sc 20/20 20/20 Tonometry (Tonopen, 9:28 AM) Right eye Left eye Pressure 20 14 Pupils Dark Light Shape React APD Right eye 5 4 Round Brisk None Left eye 5 4 Round Brisk None Neuro/Psych Oriented x3: Yes Mood/Affect: Normal Dilation Both eyes: 1.0% Mydriacyl @ 9:28 AM External Exam Right eye Left eye [...] Normal Normal Periphery drusen, drusen Care Teams [employer] Flatbed Truck Driver Relationship Specialty Start Date End Date Sylvia Dawson PA [address] [facility] [address] [place] [address] PCP - General Internal Medicine 01/05/20 Erica Rodrigues MD [address] [place] [address] Radiation Oncologist Radiation Oncology 10/25/18 Gasper Kaba MD [address] [place] [address] Surgeon Surgical Oncology 10/25/18 Brandy Aguirre, CARINA [address] [place] [address] Nurse Practitioner Certified Clinical Nurse Specialist 10/25/18 Jo-Ann Morrow, PhD [address] [place] [address] Nurse Practitioner Radiation Oncology 10/25/18 Christina Louis MATHEMATICS ACADEMIC CHAIR [address] [place] [address] Nurse Practitioner Medical Oncology 10/25/18 documented as of this encounter
--- OUTSIDE RECORDS SUMMARY | 2024-04-24 05:49 | XMS_ITS | Encounter Summary ---
Author Organization [facility] Address [address] [place] [address] Phone Care Team Providers Care Auto Striper Name Role Phone Erica Rodrigues MD Unavailable Gasper Kaba MD Unavailable Brandy Aguirre SAPPHIRE STYLUS GRINDER Unavailable Jo-Ann Morrow PhD Unavailable Christina Louis LOAN CLERK Unavailable [phone] Sylvia Dawson Primary Care Provider [phone] Jessy Adame MD Unavailable Harpal Carpio MD Unavailable Rossana Church DNP Unavailable Zahida Kaplan Unavailable Fadi Cook Unavailable Harpal De León MD Unavailable [phone] Valorie Young MD Unavailable Patricia Martinez MD Unavailable [phone] Reason for Referral * Diagnostic Imaging (Routine) - Pending Review Specialty Diagnoses / Procedures Referred By Contac t Referred To Contact Diagnoses Cystoid macular edema of both eyes Procedures OCT, Retina - OU - Both Eyes Thomas Hinojosa DO Phone: tel: fax: [facility] (All Locations) Referral ID Status Reason Start Date Expiration Date V isits Requested Visits Authorized [id number] Pending Review 04/29/2023 05/28/2024 1 1 SUPERINTENDENT Reason for Visit * Reason Comments Cystoid macular edema of both eyes Encounter Details Date Type Department Care Team (Late st Contact Info) Description 04/29/2023 9:40 AM MAIL SUPERINTENDENT Office Visit [facility] Ophthalmology [address] [facility] 6th [place] [address] Jessy Adame MD [address] [facility] [address] [place] [address] Cystoid macular edema of both eyes (Primary Dx); Punctate epithelial keratopathy of both eyes Social History Tobacco Use Types Packs/Day Years [...] on file Legal Sex Female 3:42 AM MAIL SUPERINTENDENT Gender Identity Not on file Sexual Orientation Not on file 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 Pt states she recently was seen by a neuro egg smeller because of unequal pupils but pt states problem has seemed to resolved itself. Denies floaters, pain, and FOL Ocular meds: AFT PRN OU Methotrexate weekly (every ) Folic Acid 2g daily Last edited by Santiago Burrows on 04/29/2023 9:48 AM. Assessment/Plan Diagnoses and all orders for this visit: Cystoid macular edema of both eyes (Primary) Assessment & Plan: She is now off durezol completely. There is no cystoid macular edema (CME) today both eyes (OU). There are likely lamellar changes that have remained stable. Recommend observation. Orders: - OCT, Retina - OU - Both Eyes Punctate epithelial keratopathy of both eyes Assessment & Plan: Seen with Dr. Elmore, and I greatly appreciate Dr. Elmore's willingness to see this patient with me today. Consistent with punctate epithelial erosions (PEE) vs. Possibly Thygeson's. Will start durezol qdaily both eyes (OU). She will see Dr. Elmore again in 2 weeks. She states shehas plenty of this medication at home and does not need refills. Orders: - Slit Lamp Photography - OU - Both Eyes OCT, Retina - OU - Both Eyes Right Eye Quality was good. Progression has been stable. Left Eye Quality was good. Progression has been stable. Notes Stable lamellar changes OD. Normal OS. Slit Lamp Photography - OU - Both Eyes Punctate epithelial deposits The signs and symptoms of retinal detachment, tears, infection, elevated intra- ocular pressure werereviewed with the patient. Patient knows to call should they have any of the symptoms. PLAN FOR NEXT VISIT Follow-up and Dispositions Return if symptoms worsen or fail to improve. I have examined the patient, reviewed and edited the chart as needed, and discussed the findings, diagnosis and plan with the resident. I agree with the findings, diagnosis, plan that we have createdand documented. Jessy Adame MD SUPERINTENDENT documented in this encounter Miscellaneous Notes * Assessment & Plan Note - Thomas Hinojosa DO - 04/29/2023 10:23 AM CSTAssociated Problem(s): Punctate epithelial keratopathy of both eyes Seen with Dr. Elmore, and I greatly appreciate Dr. Elmore's willingness to see this patient with me today. Consistent with punctate epithelial erosions (PEE) vs. Possibly Thygeson's. Will start durezol qdaily both eyes (OU). She will see Dr. Elmore again in 2 weeks. She states shehas plenty of this medication at home and does not need refills. SUPERINTENDENT SUPERINTENDENT SUPERINTENDENT SUPERINTENDENT * Assessment & Plan Note - Thomas Hinojosa DO - 04/29/2023 10:15 AM CSTAssociated Problem(s): Cystoid macular edema of both eyes She is now off durezol completely. There is no cystoid macular edema (CME) today both eyes (OU). There are likely lamellar changes that have remained stable. Recommend observation. SUPERINTENDENT SUPERINTENDENT SUPERINTENDENT documented in this encounter Plan of Treatment Not on file documented as of this encounter Procedures Procedure Name Priority Date/Time Associated Diagnosis Comments SLIT LAMP PHOTOGRAPHY - OU - BOTH EYES Routine 04/29/2023 4:02 PM MAIL SUPERINTENDENT Punctate epithelial keratopathy of both eyes OCT, RETINA - OU - BOTH EYES Routine 04/29/2023 11:15 AM MAIL SUPERINTENDENT Cystoid macular edema of both eyes documented in this encounter Results * Slit Lamp Photography - OU - Both Eyes (04/29/2023 4:02 PM MAIL SUPERINTENDENT) Anatomical Region Laterality Modality Head Other Narrative 04/29/2023 4:02 PM MAIL SUPERINTENDENT Punctate epithelial deposits Jessy Adame MD OPHTH PHOTOGRAPHY Final Re sult * OCT, Retina - OU - Both Eyes (04/29/2023 11:15 AM MAIL SUPERINTENDENT) Anatomical Region Laterality Modality Head Optical Coherenc e Tomography Narrative 04/29/2023 11:15 AM MAIL SUPERINTENDENT Right Eye Quality was good. Progression has been stable. Left Eye Quality was good. Progression has been stable. Notes Stable lamellar changes OD. Normal OS. 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 documented in this encounter Eye Exam Visual Acuity (Snellen - Linear) Right eye Left eye Dist sc 20/20 20/20 Tonometry (I-Care, 9:51 AM) Right eye Left eye Pressure 10 11 Pupils Dark Light Shape React APD Right eye 5 4 Round Brisk None Left eye 4.5 4 Round Brisk None Neuro/Psych Oriented x3: Yes Mood/Affect: Normal Dilation Both eyes: 1.0% Mydriacyl @ 9:52 AM External Exam Right eye Left eye External Normal Normal Slit Lamp Exam Right eye Left eye Lids/Lashes Normal Normal Conjunctiva/Sclera White and quiet White and gael et Cornea epithelial deposits, epithelial deposits Anterior Chamber Deep and quiet Deep and quiet Iris Round and reactive, hippus but no segmental constriction, normal pupillary ruff, no tears or atrophy Round and reactive, hippus but no segmental constriction, normal pupillary ruff, no tears or atrophy Lens Posterior chamber in traocular lens, Open posterior capsule Posterior chamber intraocular lens, Open posterior capsule Anterior Vitreous s/p ppV s/p PPV Fundus Exam Right eye Left eye Posterior Vitreous no cell no cell Disc Normal Normal C/D Ratio 0.2 0.2 Macula Normal Normal Vessels Normal Normal Periphery drusen drusen Care Teams Auto Striper Relationship Specialty Start Date End Date Sylvia Dawson PA [address] [place], [place] [id number] PCP - General Internal Medicine 01/05/20 Erica Rodrigues MD [address] [facility] [address] [facility] [address] [place] [address] Radiation Oncologist Radiation Oncology 10/25/18 Gasper Kaba MD [address] [facility] [address] [facility] [address] [place] [address] Surgeon Surgical Oncology 10/25/18 Brandy Aguirre, CARINA [address] [facility] [address] [facility] [address] [place] [address] Nurse Practitioner Certified Clinical Nurse Specialist 10/25/18 Jo-Ann Morrow, PhD [address] [facility] [address] [facility] [address] [place] [address] Nurse Practitioner Radiation Oncology 10/25/18 Christina Louis, LOAN CLERK [address] [facility] [address] [facility] [address] [place] [address] Nurse Practitioner Medical Oncology 10/25/18 Jessy Adame MD [address] [facility] DEPT OPHTHALMOLOGY, [address] [place] [address] Consulting Physician Retina Ophthalmology 04/15/23 Harpal Carpio MD [address] [place] [address] Neurologist Neurology 04/15/23 Rossana Church DNP [address] [place] [place] [address] Nurse Practitioner Nurse Practitioner 04/15/23 Zahida Kaplan PA [address]UROLOGY [facility] [address] [place] [address] Physician Security Consultant Physician Security Consultant 04/15/23 Fadi Cook PA [address] DIV NEUROLOGY [facility] [address] [place] [address] Physician Security Consultant Sleep Medicine 04/15/23 Harpal De León MD [address] [place] [address] Rn Rehabilitation Cardiology 04/15/23 Valorie Young MD [address] [facility] [address] [place] [address] Rn Rehabilitation Cardiology 04/15/23 Patricia Martinez MD [address] [facility] [address] IM RHEUMATOLOGY, [address] [address] Consulting Physician Rheumatology 04/15/23 documented as of this encounter
--- OUTSIDE RECORDS SUMMARY | 2024-04-24 05:49 | XMS_ITS | Encounter Summary ---
Author Organization [facility] Address [address] [facility] [address] [place] [address] Care Team Providers Care Photographic Restorer Name Role Phone Erica Rodrigues MD Unavailable Gasper Kaba MD Unavailable [phone] Brandy Aguirre ABLE BODIED TANKERMAN Unavailable [phone] Jo-Ann Morrow PhD Unavailable [phone] Christina Louis DOMESTIC CLEANER Unavailable [phone] Sylvia Dawson Primary Care Provider [phone] Reason for Visit * Reason Onset Date Comments COVID-19 EVALUATION 12/29/2022 Sore Throat 12/29/2022 Fever 12/29/2022 Congestion 12/29/2022 Cough 12/29/2022 Encounter Details Date Type Department Care Team (Late st Contact Info) Description 12/29/2022 Nurse Triage [facility] Family Medicine [address] [facility] [address] [place] [address] Marley Masterson RN Social History Tobacco Use Types Packs/Day [...] on file Legal 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 Will await results. SPO2 has been lower 90s. * Telephone Encounter - Coni Corbin LPN - 01/01/2023 11:15 AM CDT Called pt and she states she is better than what she was but not as good as she was hoping. Pt stated that she is still having cough that is DOMESTIC CLEANER but is more moist then when it began. Pt stated she is having head congestion and fullness and body aches. No fever the past couple of days. Pt reports sheis taking Mucinex DM and Tylenol with slight relief. Informed pt to take an antihistamine every dayto help with head congestion. Pt asked if she could take Delysm also. Spoke with PCP regarding question. PCP stated that Mucinex DM, Delsym, and tessalon pearls are all cough suppressant so she should just take one. Suggested to pt that if she is not getting relief with Mucinex DM to try to switch to Delsym. Will pend to check on pt tomorrow. * Telephone Encounter - Coni Corbin LPN - 01/01/2023 8:00 AM CDT Sent [employer] message to check on patient. * Telephone Encounter - Sylvia Dawson PA - 12/29/2022 4:46 PM CDT Noted. Thanks. * Telephone Encounter - Coni Corbin LPN - 12/29/2022 4:26 PM CDT Called and spoke to pt. Pt stated that she was not asking for Paxlovid, the triage nurse stated shemay be a candidate. Explained to pt the risks and benefits of Paxlovid and the risk of rebound effect and pt stated she did not want medication. Pt states that she will keep going with her OTC and home remedy treatment. Will pend this message and check on pt at the end of this week. * Telephone Encounter - Sylvia Dawson PA - 12/29/2022 3:56 PM CDT Call and check on patient -- review the risks and benefits of Paxlovid -- I will call it out if shedesires. * Telephone Encounter - Marley Masterson RN - 12/29/2022 8:12 AM CDT Reason for Disposition [1] HIGH RISK for severe COVID complications (e.g., weak immune system, age > 64 years, obesity with BMI of 30 or higher, , chronic lung disease or other chronic medical condition) AND [2]COVID symptoms (e.g., cough, fever) (Exceptions: Already seen by PCP and no new or worsening symptoms.) Protocols used: Coronavirus (COVID-19) Diagnosed or [id number] Chief Complaint Patient presents with COVID-19 EVALUATION Sore Throat Fever Congestion Cough Yesika Denney calls reporting above symptoms that began Thursday. Pt tested positive for Covid on Thursday. Pt reports fever of 102.5, decreasing. Denies chest pain, reports sob with activity. Ptprovided with CDC recommendations for isolation. Stay home for 5 days from onset of symptoms. If symptoms improving and no fever in 24hrs, pt may leave home on day 6 and wear a mask around others foradditional 5 days. Pt encouraged to stay hydrated, drink warm broth and fluids, try tea with honey to soothe throat, cough syrups, throat logenzes, tylenol for headaches, temperature, or body aches, using inhaler for wheezing if has one (call if needed or develops), mucinex for expectorant, claritin or zyrtec for anti histamine to dry up nasal drainage, humidifier, and take warm showers. Pt Provided with care instructions, pt agreeable to plan of care. Pt instructed to call back if symptom worsen/change or questions/concerns arise,. Pt may be candidate for Paxlovid. Routed HP to clinical pool. Please contact pt to discuss. * Telephone Encounter - Ailyn Christina RN - 12/29/2022 7:40 AM CDT Regarding: sore throat, covid positive ----- Message from Santiago Jane sent at 12/29/2022 7:38 AM CDT ----- Symptom Based Call Caller's Callback #: [phone] Chief Complaint(s): cough sore throat, fever, congestion, covid positive Duration: Thursday What type of symptom(s) is the patient experiencing? Non-Emergent. Is this a new or reoccurring symptom(s)? new What have you tried to help your symptom(s)? tylenol Why was appointment not scheduled? Appointment availability did not meet the patient's need. No appts available Additional Comments: na Does message need to be routed? Yes-Action Needed documented in this encounter Plan of Treatment [...] documented as of this encounter Care Teams Photographic Restorer Relationship Specialty Start Date End Date Sylvia Dawson PA [address] [facility] [address] [place] [address] PCP - General Internal Medicine 01/05/20 Erica Rodrigues MD [address] [facility] [address] [place] [address] Radiation Oncologist Radiation Oncology 10/25/18 Gasper Kaba MD [address] [place] [address] Surgeon Surgical Oncology 10/25/18 Brandy Aguirre CNS [address] [place] [address] Nurse Practitioner Certified Clinical Nurse Specialist 10/25/18 Jo-Ann Morrow, PhD [address] [facility] [address] [place] [address] Nurse Practitioner Radiation Oncology 10/25/18 Christina Louis, DOMESTIC CLEANER [address] [facility] [address] [place] [address] Nurse Practitioner Medical Oncology 10/25/18 documented as of this encounter
--- OUTSIDE RECORDS SUMMARY | 2024-04-24 05:49 | XMS_ITS | Encounter Summary ---
Author Organization [facility] Address [address] [place] [address] Care Team Providers Care Powerhouse Electrician Apprentice Name Role Phone Erica Rodrigues MD Unavailable Gasper Kaba MD Unavailable Brandy Aguirre CHAIR MAKER Unavailable [phone] Jo-Ann Morrow PhD Unavailable [phone] Christina Louis BOILER TUBE BLOWER Unavailable [phone] Sylvia Dawson Primary Care Provider [phone] Encounter Details Date Type Department Care Team (Late st Contact Info) Description 03/31/2023 Orders Only [facility] Family Medicine [address] [place] [address] Sylvia Dawson PA [address] [place] [address] Amaurosis fugax of right eye (Primary Dx); Aneurysm (CMS/HCC) (HCC); Brain aneurysm; Carotid dissection, bilateral (CMS/HCC) (HCC) Social History [...] on file Legal Sex Female 3:42 AM MACHINE FINISHER Gender Identity Not on file Sexual Orientation Not on file 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 Aneurysm (CMS/HCC) (HCC) Other aneurysm of unspecified site Brain aneurysm Cerebral aneurysm, nonruptured Carotid dissection, bilateral (CMS/HCC) (HCC) Dissection of carotid artery documented in this encounter Care Teams Powerhouse Electrician Apprentice Relationship Specialty Start Date End Date Sylvia Dawson PA [address] [facility] [address] [place] [address] PCP - General Internal Medicine 01/05/20 Erica Rodrigues MD [address] [place] [address] Radiation Oncologist Radiation Oncology 10/25/18 Gasper Kaba MD [address] [place] [address] Surgeon Surgical Oncology 10/25/18 Brandy Aguirre CNS [address] [facility] [address] [facility] [address] [place] [address] Nurse Practitioner Certified Clinical Nurse Specialist 10/25/18 Jo-Ann Morrow, PhD [address] [facility] [address] [facility] [address] [place] [address] Nurse Practitioner Radiation Oncology 10/25/18 Christina Louis, BOILER TUBE BLOWER [address] [facility] [address] [facility] [address] [place] [address] Nurse Practitioner Medical Oncology 10/25/18 documented as of this encounter
--- OUTSIDE RECORDS SUMMARY | 2024-04-24 05:49 | XMS_ITS | Encounter Summary ---
Author Organization [facility] Address [address] [place] [address] Phone Care Team Providers Care Range Operator Name Role Phone Erica Rodrigues MD Unavailable Gasper Kaba MD Unavailable [phone] Brandy Aguirre TERRITORY MANAGER GENERAL SALES Unavailable [phone] Jo-Ann Morrow PhD Unavailable [phone] Christina Louis [facility] Unavailable [phone] Sylvia Dawson Primary Care Provider [phone] Encounter Details Date Type Department Care Team (Latest Contact Info) Description 04/02/2023 1:40 PM SUPERVISING EDITOR NEWS REEL Office Visit 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 Not on file Not on file Not on file documented as of this encounter Last Filed Vital Signs Vital Sign Reading Time Taken Comments Blood Pressure 130/82 04/02/2023 1:48 PM SUPERVISING EDITOR NEWS REEL Pulse 59 04/02/2023 1:48 PM SUPERVISING EDITOR NEWS REEL Temperature - - Respiratory Rate - - Oxygen Saturation - - Inhaled Oxygen Concentration - - Weight 67.1 kg (148 lb) 04/02/2023 1:48 PM SUPERVISING EDITOR NEWS REEL Height 157.5 cm (5' 2 ) 04/02/2023 1:48 PM SUPERVISING EDITOR NEWS REEL Body Mass Index 27.07 04/02/2023 1:48 PM SUPERVISING EDITOR NEWS REEL documented in this encounter Progress Notes * Patricia Martinez MD - 04/02/2023 1:40 PM CST Rheumatology PATIENT NAME: Yesika Denney : 1960 STEVEN: 04/02/2023 Subjective Chief Complaint: F/U seronegative RA HPI: Yesika Denney is a 62 y.o. 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 Current management is MTX 20 mg weekly + SSZ 500 mg bid . She was last seen on Sep 25. D/C of HCQ 200 mg daily Interval History: Since last visit, she notes no increase in arthralgias and has had no joint swelling . 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 but none elsewhere/ Disease Treatment History(Reviewed/revised 04/02/2023): May 10 2015 -initiation of anastrazole and [...] 04/2021-repeat hand films demonstrate no interval changes Objective Current Outpatient Medications: acetaminophen (TYLENOL) 325 [...] MOUTH DAILY, Disp: 90 tablet, Rfl: 1 ivyxnrpjcm-frzdrguzegmoy-pnevjphk-codeine (FIORICET WITH CODEINE) [id number] mg per capsule, TAKE1 CAPSULE BY MOUTH EVERY 4 HOURS NEEDED FOR HEADACHE (Patient taking differently: Take 1 capsuleby mouth every 6 (six) hours as needed for headaches), Disp: 20 capsule, Rfl: 0 difluprednate (DUREZOL) 0.05 % drops, Administer 1 drop into the right eye 3 (three) times a day for 7 days, THEN 1 drop 2 (two) times a day for 7 days, THEN 1 drop daily for 7 days., Disp: 10 mL, Rfl: 11 ezetimibe (ZETIA) 10 mg tablet, Take 1 [...] every morning), Disp: 180 tablet, Rfl: 3 hydroCHLOROthiazide (HYDRODIURIL) [...] tablet, Rfl: 0 methotrexate 2.5 mg tablet, Take 8 tablets on (Patient taking differently: Take 8 tablets(20 mg total) by mouth every 7 days Take 8 tablets on ), Disp: 96 tablet, Rfl: 2 multivitamin with minerals tablet, Take 1 tablet by mouth every morning, Disp: , Rfl: oxyCODONE (ROXICODONE) 5 mg immediate release tablet, Take 1 tablet (5 mg total) by mouth every 4 (four) hours as needed for pain, Disp: 10 tablet, Rfl: 0 sulfaSALAzine EN (AZULFIDINE EN) 500 mg EC tablet, TAKE 2 TABLETS(1000 MG) BY MOUTH TWICE DAILY (Patient taking differently: Take 1 tablet (500 mg total) by mouth every morning), Disp: 360 tablet, Rfl: 0 valACYclovir (Valtrex) 500 mg tablet, Take 1 tablet (500 mg total) by mouth daily (Patient taking differently: Take 1 tablet (500 mg total) by mouth every morning), Disp: 90 tablet, Rfl: 2 vit I-H-lfipgv-zinc-lutein (PreserVision Lutein) 226-90-0.8-5 mg capsule, Take 1 tablet by mouth 2 (two) times a day, Disp: , Rfl: Physical Exam BP 130/82 Pulse 59 Ht 157.5 cm (5' 2 ) Wt 67.1 kg (148 lb) LMP (LMP Unknown) BMI 27.07 kg/m?? GEN: NAD, WDWN SKIN: No rash HEENT: PEERL, Conjunctivae are clear. Right pupil is significantly larger than left EXT: No LE edema. MSK: No synovitis in a 28 jt count, Beighton scoring 4/9 PSYCH: Appropriate affect. Labs: Admission on 03/20/2023, Discharged on 03/20/2023 Component Date Value Ref Range Status K POC 03/20/2023 4.1 3.3 - 4.9 mmol/L Final Comment: Interpretive Data This method is not able to assess for hemolysis, which may falsely increase potassium concentrations. If further testing is needed to evaluate this result, consider in-laboratory plasma potassium. Current Interpretive Data was last revised on 2021. POC Device Number 03/20/2023 [id number] Final POC Performer 03/20/2023 [id number] Final Orders Only on 02/24/2023 Component Date Value Ref Range Status WBC 02/24/2023 4.2 3.4 - 10.8 x10E3/uL Final RBC 02/24/2023 3.89 3.77 - 5.28 x10E6/uL Final Hgb 02/24/2023 12.8 11.1 - 15.9 g/dL Final Hct 02/24/2023 38.5 34.0 - 46.6 % Final MCV 02/24/2023 99 (H) 79 - 97 fL Final MCH 02/24/2023 32.9 26.6 - 33.0 pg Final MCHC 02/24/2023 33.2 31.5 - 35.7 g/dL Final Rdw 02/24/2023 13.4 11.7 - 15.4 % Final Platelets 02/24/2023 194 150 - 450 x10E3/uL Final Neutrophils 02/24/2023 52 Not Estab. % Final Lymphs 02/24/2023 35 Not Estab. % Final Monocytes 02/24/2023 10 Not Estab. % Final Eosinophils 02/24/2023 2 Not Estab. % Final Basophil pct 02/24/2023 1 Not Estab. % Final Neutrophil abs 02/24/2023 2.2 1.4 - 7.0 x10E3/uL Final Lymphs (Absolute) 02/24/2023 1.5 0.7 - 3.1 x10E3/uL Final Monocyte abs 02/24/2023 0.4 0.1 - 0.9 x10E3/uL Final Eosinophils, abs 02/24/2023 0.1 0.0 - 0.4 x10E3/uL Final Basophils, abs 02/24/2023 0.0 0.0 - 0.2 x10E3/uL Final Immature Granulocytes 02/24/2023 0 Not Estab. % Final Immature Grans (Abs) 02/24/2023 0.0 0.0 - 0.1 x10E3/uL Final Erythrocyte sedimentation rate 02/24/2023 2 0 - 40 mm/hr Final CRP 02/24/2023 <1 0 - 10 mg/L Final Cholesterol 02/24/2023 198 100 - 199 mg/dL Final Triglycerides 02/24/2023 88 0 - 149 mg/dL Final HDL Cholesterol 02/24/2023 92 >39 mg/dL Final VLDL 02/24/2023 15 5 - 40 mg/dL Final LDL, calculated 02/24/2023 91 0 - 99 mg/dL Final Assessment Assessment: Problem List Items Addressed This Visit Rheumatology Problems Rheumatoid arthritis with negative rheumatoid factor (HCC) - Primary Relevant Orders CBC with auto differential Comprehensive metabolic panel CRP (acute phase) Erythrocyte sedimentation rate Other High risk medication use Relevant Orders CBC with auto differential Comprehensive metabolic panel CRP (acute phase) Erythrocyte sedimentation rate Mixed hyperlipidemia Relevant Orders Lipid panel 1) she has had no breakthrough arthralgias off hydroxychloroquine nor any scleritis so we will discontinue sulfasalazine and see if she has any breakthrough symptoms and she will continue on methotrexate as monotherapy Two) I reviewed her monitoring laboratories which are stable and the should continue to be performed quarterly Three) she will advise if she has another episode of scleritis Four) she is awaiting her 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 as well as has follow-up for her asymmetric pupils I reviewed the patient's prior visit Sep 25 and health assessment questionnaire.Current diseaseactivity is near remission Immunizations: Immunization History Administered Date(s) Administered Influenza, Quadrivalent, Cell Culture-based MDCK, Preservative Free, Antibiotic Free, Qbtdpxcdvskdt02/04/2018 Influenza, Quadrivalent, Split, Preservative Free, Intramuscular 01/05/2020, 02/26/2021, 02/27/2022, 04/01/2023 Influenza, Trivalent, Intramuscular 01/27/2018 Influenza, Trivalent, Preservative Free, Intramuscular 02/24/2017 Influenza, Unspecified 01/11/2019 Pfizer SARS-CoV-2 Monovalent Vaccination (12+ Yrs) BEASLEY-READY TO USE 05/14/2021 Pfizer SARS-CoV-2 Monovalent Vaccination (12+ Yrs) PURPLE 10/12/2020, 11/08/2020 Tdap 02/27/2022 ZOSTER Recombinant 02/23/2020, 05/01/2020 Reviewed 04/02/2023 Follow-up: Return in about 6 months (around 10/02/2023). RVISING EDITOR NEWS REEL documented in this encounter Plan of Treatment Scheduled Orders Name Type Priority Associated Diagnoses Orde r Schedule CBC with auto differential Lab Routine Rheumatoid arthritis with negative rheumatoid factor, involving unspecified site (HCC) High risk medication use every 3 months for 4 Occurrences starting 04/02/2023 until 04/02/2024 Comprehensive metabolic panel Lab Routine Rheumatoid arthritis with negative rheumatoid factor, involving unspecified site (HCC) High risk medication use every 3 months for 4 Occurrences starting 04/02/2023 until 04/02/2024 CRP (acute phase) Lab Routine Rheumatoid arthritis with negative rheumatoid factor, involving unspecified site (HCC) High risk medication use every 3 months for 4 Occurrences starting 04/02/2023 until 04/02/2024 Erythrocyte sedimentation rate Lab Routine Rheumatoid arthritis with negative rheumatoid factor, involving unspecified site (HCC) High risk medication use every 3 months for 4 Occurrences starting 04/02/2023 until 04/02/2024, 1 completed documented as of this encounter Procedures Procedure Name Priority Date/Time Associated Diagnosis Comments LIPID PANEL Routine 07/31/2023 9:03 AM CDT Mixed hyperlipidemia ERYTHROCYTE SEDIMENTATION RATE Routine 07/31/2023 9:02 AM CDT Rheumatoid arthritis with negative rheumatoid factor, involving unspecified site (HCC) High risk medication use documented in this encounter Results * (ABNORMAL) Lipid panel (07/31/2023 9:03 AM CDT) Cholesterol 197 100 - 199 mg/dL [facility] - 01 Triglycerides 93 0 - 149 mg/dL [facility] - 01 HDL Cholesterol 73 >39 mg/dL [facility] - 01 VLDL 17 5 - 40 mg/dL [facility] - 01 LDL, calculated 107(H) 0 - 99 mg/dL [facility] - 01 Blood 07/31/2023 9:03 AM CDT 07/31/2023 Narrative [facility] - 08/01/2023 10:11 AM CDT Performed at: ??01 - [facility] [address] ??[id number] Landing Signal Officer: John Lozoya PhD, Phone: ??[phone] Patricia Martinez MD LAB BLOOD ORDERABLES Final R esult Performing Organization Address [facility] de Phone Number [facility] - * Erythrocyte sedimentation rate (07/31/2023 9:02 AM CDT) Erythrocyte sedimentation rate 4 0 - 40 mm/hr [facility] - 01 Blood 07/31/2023 9:02 AM CDT 07/31/2023 Narrative [facility] - 08/01/2023 8:20 AM CDT Performed at: ??[address] [facility] ??[id number] Landing Signal Officer: John Lozoya PhD, Phone: ??[phone] Patricia Martinez MD LAB BLOOD ORDERABLES Final R esult Performing Organization Address [facility]/ZIP Co de Phone Number [facility] - 01 documented in this encounter Visit Diagnoses Diagnosis Rheumatoid arthritis with negative rheumatoid factor, involving unspecified site (HCC)- Primary High risk medication use Mixed hyperlipidemia documented in this encounter Care Teams Range Operator Relationship Specialty Start Date End Date Sylvia Dawson PA [address] [place] [address] PCP - General Internal Medicine 01/05/20 Erica Rodrigues MD [address] [place] [address] Radiation Oncologist Radiation Oncology 10/25/18 Gasper Kaba MD [address] [place] [address] Surgeon Surgical Oncology 10/25/18 Brandy Aguirre, TERRITORY MANAGER GENERAL SALES [address] [place] [address] Nurse Practitioner Certified Clinical Nurse Specialist 10/25/18 Jo-Ann Morrow, PhD [address] [place] [address] Nurse Practitioner Radiation Oncology 10/25/18 Christina Louis, [facility] [address] [place] [address] Nurse Practitioner Medical Oncology 10/25/18 documented as of this encounter
--- OUTSIDE RECORDS SUMMARY | 2024-04-24 05:49 | XMS_ITS | Encounter Summary ---
Author Organization [facility] Address [address] [place] [address] Phone Care Team Providers Care Vp Patient Name Role Phone Erica Rodrigues MD Unavailable Gasper Kaba MD Unavailable Brandy Aguirre BANK TELLER Unavailable [phone] Jo-Ann Morrow PhD Unavailable [phone] Christina Louis FORESTRY AND WILDLIFE MANAGER Unavailable [phone] Sylvia Dawson Primary Care Provider [phone] Reason for Referral * Diagnostic Imaging (Routine) - Closed Specialty Diagnoses / Procedures Referred By Contac t Referred To Contact Diagnoses Cystoid macular edema of both eyes Procedures OCT, Retina - OU - Both Eyes Jessy Adame MD [address] [facility] [address] [place] [address] Phone: tel: fax: [facility] (All Locations) Referral ID Status Reason Start Date Expiration Date Visits Re quested Visits Authorized [id number] Closed 01/29/2023 02/28/2024 1 1 Reason for Visit * Reason Comments Cystoid macular edema of both eyes Encounter Details Date Type Department Care Team (Late st Contact Info) Description 01/29/2023 9:30 AM CDT Office Visit 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 Not on file Not on file Not on file documented as of this encounter Ordered Prescriptions Prescription Sig Dispense Quantity Refills Last Filled Start Date End Date difluprednate (DUREZOL) 0.05 % dropsIndications:C ystoid macular edema of both eyes Administer 1 drop into the right eye 4 (four) times a day 10 mL 11 01/29/2023 3 documented in this encounter Progress Notes * Jessy Adame MD - 01/29/2023 9:30 AM CDT ASSESSMENT/ORDERS/PROCEDURES PERFORMED TODAY Chief Complaint Patient presents with Cystoid macular edema of both eyes HPI 6 week f/u- CME OU, scleritis OS S/p PPV OD 09/23/22, VA OD getting more blurred gradually since MARITZA, starts good in a.m. then gets worse throughout day.Pupil OD larger that OS, noticed since this weekend. Ocular meds: AFT prn OU, Methotrexate weekly (every ), FA 2g weekly Last edited by Mirtha Fisher on 01/29/2023 9:32 AM. Assessment/Plan Diagnoses and all orders for this visit: Cystoid macular edema of both eyes (Primary) Assessment & Plan: Has a small amount of recurrent macular edema in the right eye. Recommend restarting Durezol 4 times a day in the right eye, we will re-evaluate roughly 6 weeks time. Orders: - OCT, Retina - OU - Both Eyes Aneurysm (CMS/HCC) (HCC) Assessment & Plan: She noticed that the right pupil might be slightly larger than the left, on examination today before dilation I was not convinced of a significant difference. She had an angiogram yesterday which wasunconcerning, and follow-up was all that was recommended. OCT, Retina - OU - Both Eyes Right Eye Quality was good. Scan locations included subfoveal. Progression has worsened. Left Eye Quality was good. Scan locations included subfoveal. Progression has been stable. Notes OD: Lamellar macular hole, possible trace macular edema OS: no fluid The signs and symptoms of retinal detachment, tears, infection, elevated intra- ocular pressure werereviewed with the patient. Patient knows to call should they have any of the symptoms. PLAN FOR NEXT VISIT Follow-up and Dispositions Return in about 6 weeks (around 03/12/2023) for Dilated exam OU, OCT OU. documented in this encounter Miscellaneous Notes * Assessment & Plan Note - Jessy Adame MD - 01/29/2023 10:49 AM CDT Associated Problem(s): Aneurysm (CMS/HCC) (HCC) She noticed that the right pupil might be slightly larger than the left, on examination today before dilation I was not convinced of a significant difference. She had an angiogram yesterday which wasunconcerning, and follow-up was all that was recommended. * Assessment & Plan Note - Jessy Adame MD - 01/29/2023 10:48 AM CDT Associated Problem(s): Cystoid macular edema of both eyes Has a small amount of recurrent macular edema in the right eye. Recommend restarting Durezol 4 times a day in the right eye, we will re-evaluate roughly 6 weeks time. documented in this encounter Plan of Treatment Not on file documented as of this encounter Procedures Procedure Name Priority Date/Time Associated Diagnosis Comments OCT, RETINA - OU - BOTH EYES Routine 01/29/2023 10:47 AM CDT Cystoid macular edema of both eyes documented in this encounter Results * OCT, Retina - OU - Both Eyes (01/29/2023 10:47 AM CDT) Anatomical Region Laterality Modality Head Optical Coherenc e Tomography Narrative 01/29/2023 10:47 AM CDT Right Eye Quality was good. Scan locations included subfoveal. Progression has worsened. Left Eye Quality was good. Scan locations included subfoveal. Progression has been stable. Notes OD: ??Lamellar macular hole, possible trace macular edema OS: no fluid Jessy Adame MD OPHTH TOMOGRAPHY Final Res ult documented in this encounter Visit Diagnoses Diagnosis Cystoid macular edema of both eyes- Primary Cystoid macular degeneration of retina Aneurysm (CMS/HCC) (HCC) Other aneurysm of unspecified site documented in this encounter Discontinued Medications Medication Sig Discontinue Reason Start Date End Da te difluprednate (DUREZOL) 0.05 % dropsIndications:Cysto id macular edema of both eyes Administer 1 drop into the right eye 3 (three) times a day for 14 days, THEN 1 drop 2 (two) times a day for 14 days, THEN 1 drop daily for 14 days. 12/18/2022 01/29/2023 documented as of this encounter Eye Exam Visual Acuity (Snellen - Linear) Right eye Left eye Dist sc 20/30 20/20 -2 Dist ph sc 20/20 Tonometry (Tonopen, 9:48 AM) Right eye Left eye Pressure 26, 26 16 Pupils Dark Light Shape React APD Right eye 5 4 Round Brisk None Left eye 4.5 4 Round Minimal None Neuro/Psych Oriented x3: Yes Mood/Affect: Normal Dilation Both eyes: 1.0% Mydriacyl @ 9:48 AM External Exam Right eye Left eye [...] Normal Normal Periphery drusen, drusen Care Teams Vp Patient Relationship Specialty Start Date End Date Sylvia Dawson PA [address] [place], [place] [id number] PCP - General Internal Medicine 01/05/20 Erica Rodrigues MD [address] [address] Radiation Oncologist Radiation Oncology 10/25/18 Gasper Kaba MD [address] [facility] [address] [place] [address] Surgeon Surgical Oncology 10/25/18 Brandy Aguirre, BANK TELLER [address] [facility] [address] [place] [address] Nurse Practitioner Certified Clinical Nurse Specialist 10/25/18 Jo-Ann Morrow, PhD [address] [facility] [address] [place] [address] Nurse Practitioner Radiation Oncology 10/25/18 Christina Louis NP [address] [facility] [address] [place] [address] Nurse Practitioner Medical Oncology 10/25/18 documented as of this encounter
--- OUTSIDE RECORDS SUMMARY | 2024-04-24 05:49 | XMS_ITS | Encounter Summary ---
Author Organization [facility] Address [address] [facility] [address] [place] [address] Care Team Providers Care Specialty Transformer Assembler Name Role Phone Erica Rodrigues MD Unavailable Gasper Kaba MD Unavailable [phone] Brandy Aguirre MIDDLE SCHOOL COUNSELOR Unavailable [phone] Jo-Ann Morrow PhD Unavailable [phone] Christina Louis PROTECTIVE SIGNAL REPAIRER Unavailable [phone] Sylvia Dawson Primary Care Provider [phone] Encounter Details Date Type Department Care Team (Late st Contact Info) Description 12/30/2022 Orders Only [facility] Accountable Care Organization [address] [place] [address] Lizzie Montalvo, BRODIE [address] [place] [address] [facility] [address] [place] [address] Social History Tobacco Use Types Packs/Day Years [...] on file Legal Sex Female 3:42 AM BUNDLES HANGER Gender Identity Not on file Sexual Orientation [...] documented as of this encounter Care Teams Specialty Transformer Assembler Relationship Specialty Start Date End Date Sylvia Dawson PA [address] [facility] [address] [place] [address] PCP - General Internal Medicine 01/05/20 Erica Rodrigues MD [address] [facility] [address] [place] [address] Radiation Oncologist Radiation Oncology 10/25/18 Gasper Kaba MD [address] [place] [address] Surgeon Surgical Oncology 10/25/18 Brandy Aguirre CNS [address] [place] [address] Nurse Practitioner Certified Clinical Nurse Specialist 10/25/18 Jo-Ann Morrow, PhD [address] [place] [address] Nurse Practitioner Radiation Oncology 10/25/18 Christina Louis NP [address] [place] [address] Nurse Practitioner Medical Oncology 10/25/18 documented as of this encounter
--- OUTSIDE RECORDS SUMMARY | 2024-04-24 05:49 | XMS_ITS | Encounter Summary ---
Author Organization [facility] Healthcare Address [address] [place] [address] Care Team Providers Care Manager Gift Name Role Phone Erica Rodrigues MD Unavailable Gasper Kaba MD Unavailable Brandy Aguirre AMPOULE EXAMINER Unavailable Jo-Ann Morrow PhD Unavailable Christina Louis FLEET ADMINISTRATIVE ASSISTANT Unavailable [phone] Sylvia Dawson Primary Care Provider [phone] Jessy Adame MD Unavailable Harpal Carpio MD Unavailable [phone] Rossana Church DNP Unavailable Zahida Kaplan Unavailable Fadi Cook Unavailable Harpal De León MD Unavailable Valorie Young MD Unavailable [phone] Patricia Martinez MD Unavailable Encounter Details Date Type Department Care Team (Late st Contact Info) Description 04/28/2023 10:45 AM LEAD TECHNOLOGIST IN CYTOGENETICS Office Visit [facility] Cardiology [address] [place] [address] Harpal De León MD [address] [place] [address] Atrial tachycardia (Primary Dx) Social History Tobacco Use Types [...] on file Legal Sex Female 3:42 AM LEAD TECHNOLOGIST IN CYTOGENETICS Gender Identity Not on file Sexual Orientation Not on file 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 file Not on file Not on file documented as of this encounter Last Filed Vital Signs Vital Sign Reading Time Taken Comments Blood Pressure 188/72 04/28/2023 10:37 AM LEAD TECHNOLOGIST IN CYTOGENETICS Pulse 73 04/28/2023 10:37 AM LEAD TECHNOLOGIST IN CYTOGENETICS Temperature - - Respiratory Rate - - Oxygen Saturation 96% 04/28/2023 10:37 AM LEAD TECHNOLOGIST IN CYTOGENETICS Inhaled Oxygen Concentration - - Weight 66.2 kg (146 lb) 04/28/2023 10:37 AM LEAD TECHNOLOGIST IN CYTOGENETICS Height 160 cm (5' 3 ) 04/28/2023 10:37 AM LEAD TECHNOLOGIST IN CYTOGENETICS Body Mass Index 25.86 04/28/2023 10:37 AM LEAD TECHNOLOGIST IN CYTOGENETICS documented in this encounter Progress Notes * Harpal De León MD - 04/28/2023 10:45 AM CST [facility] FOLLOW UP 04/28/2023 Yesika Denney is a 62 y.o. female [...] arteries that were evaluated and treated at [facility]. 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 In follow-up according to the hospital records for the most part she is in sinus rhythm and/or sinus bradycardia She presents today for previously scheduled office follow-up appointment. She has no cardiovascularcomplaints to talk about. One of the notes from her neuro meat and seafood clerk at [facility] indicated that she might require a loop recorder and a new echocardiogram because last fall she did have an episodeof anisocoria. This resolved spontaneously. She describes no cardiovascular symptoms she has no palp itations or anything in my opinion that would suggest that she would need a loop recorder. REVIEW OF SYSTEMS General ROS: negative for [...] MOUTH DAILY, Disp: 90 tablet, Rfl: 1 tlqwqvzfgs-olketrmrbffcu-ozjauppo-codeine (FIORICET WITH CODEINE) [id number] mg per capsule, Take1 capsule by mouth [...] morning), Disp: 90 tablet, Rfl: 2 vit H-N-ieyfpf-zinc-lutein (PreserVision Lutein) 226-90-0.8-5 mg capsule, Take 1 [...] for component: LABALBU PHYSICAL EXAM Vitals BP (!) 188/72 (BP Location: Right arm, Patient Position: Sitting) Pulse 73 Ht 160 cm (5' 3 ) Wt 66.2 kg (146 lb) LMP (LMP Unknown) SpO2 96% BMI 25.86 kg/m?? Physical Examination: General appearance - alert, [...] of intervention in the foreseeable future. PLAN/RECOMMENDATIONS The patient is cardiac rhythm is stable. Her ectopic atrial tachycardia is not an arrhythmia of anygreat significance at this time for the most part she is in sinus rhythm/sinus bradycardia. Continue follow-up annually or p.r.n. Harpal De León MD TECHNOLOGIST IN CYTOGENETICS documented in this encounter Plan of Treatment Not on file documented as of this encounter Visit Diagnoses Diagnosis Atrial tachycardia (HCC)- Primary Other specified cardiac dysrhythmias documented in this encounter Care Teams Manager Gift Relationship Specialty Start Date End Date Sylvia Dawson PA [address] [place] [address] PCP - General Internal Medicine 01/05/20 Erica Rodrigues MD [address] [place] [address] Radiation Oncologist Radiation Oncology 10/25/18 Gasper Kaba MD [address] [place] [address] Surgeon Surgical Oncology 10/25/18 Brandy Aguirre, AMPOULE EXAMINER [address] [place] [address] Nurse Practitioner Certified Clinical Nurse Specialist 10/25/18 Jo-Ann Morrow, PhD [address] [place] [address] Nurse Practitioner Radiation Oncology 10/25/18 Christina Louis NP [address] [place] [address] Nurse Practitioner Medical Oncology 10/25/18 Jessy Adame MD [address] [facility], [address] [place] [address] Consulting Physician Retina Ophthalmology 04/15/23 Harpal Carpio MD [address] [place] [address] Neurologist Neurology 04/15/23 Rossana Church DNP [address] [address] Nurse Practitioner Nurse Practitioner 04/15/23 Zahida Kaplan PA [address] DIV NEUROLOGY [facility], [facility] [address] [place] [address] Physician [facility] Physician [facility] 04/15/23 Fadi Cook PA [address] DIV NEUROLOGY SLEEP MED, [facility] [address] [place] [address] Physician [facility] Sleep Medicine 04/15/23 Harpal De León MD [address] [facility] [address] [facility] [address] [place] [address] Awake Overnight Monitor Cardiology 04/15/23 Valorie Young MD [address] [facility] [address] [place] [address] Awake Overnight Monitor Cardiology 04/15/23 Patricia Martinez MD [address] [facility] [address] [facility] [address] DIV IM RHEUMATOLOGY, [facility] [address] [place] [address] Consulting Physician Rheumatology 04/15/23 documented as of this encounter
--- OUTSIDE RECORDS SUMMARY | 2024-04-24 05:49 | XMS_ITS | Encounter Summary ---
Author Organization [facility] Address [address] [place] [address] Phone Care Team Providers Care Fleet Technician Name Role Phone Erica Rodrigues MD Unavailable Gasper Kaba MD Unavailable Brandy Aguirre SPACE OPERATIONS Unavailable Jo-Ann Morrow PhD Unavailable Christina Louis DIE CASTING MACHINE SETTER Unavailable [phone] Sylvia Dawson Primary Care Provider [phone] Jessy Adame MD Unavailable Harpal Carpio MD Unavailable [phone] Rossana Church DNP Unavailable Zahida Kaplan Unavailable Fadi Cook Unavailable Harpal De León MD Unavailable Valorie Young MD Unavailable Patricia Martinez MD Unavailable Reason for Referral * MRI/CAT/PET Scan (Routine) - Closed Specialty Diagnoses / Procedures Referred By Contac t Referred To Contact Radiology Diagnoses Transient visual loss of both eyes Anisocoria Procedures MRI Brain Incl Orbits W WO Contrast Stunkel, Nicol D., MD [address] [address] Phone: tel: fax: [facility] [address] [place] [address] Referral ID Status Reason Start Date Expiration Date Visits Re quested Visits Authorized [id number] Closed 05/04/2023 07/02/2023 1 4 OR SCRUM MASTER * Diagnostic Imaging (Routine) - Pending Review Specialty Diagnoses / Procedures Referred By Contac t Referred To Contact Diagnoses Unspecified disorder of visual pathways Encounter for observation for other suspected diseases and conditions ruled out Procedures OCT, Retina - OU - Both Eyes Nicol Darling MD [address] [place] [address] Phone: tel: fax: [facility] (All Locations) Referral ID Status Reason Start Date Expiration Date V isits Requested Visits Authorized [id number] Pending Review 04/15/2023 05/14/2024 1 1 OR SCRUM MASTER * Diagnostic Imaging (Routine) - Pending Review Specialty Diagnoses / Procedures Referred By Niranjan farrell Referred To Contact Diagnoses Unspecified disorder of visual pathways Encounter for observation for other suspected diseases and conditions ruled out Procedures OCT, Optic Nerve - OU - Both Eyes Nicol Darling MD [address] [address] Phone: tel: fax: [facility] (All Locations) Referral ID Status Reason Start Date Expiration Date V isits Requested Visits Authorized [id number] Pending Review 04/15/2023 05/14/2024 1 1 OR SCRUM MASTER * Diagnostic Imaging (Routine) - Pending Review Specialty Diagnoses / Procedures Referred By Contac t Referred To Contact Diagnoses Unspecified disorder of visual pathways Encounter for observation for other suspected diseases and conditions ruled out Procedures Kaur Visual Field - OU - Both Eyes Nicol Darling MD [address] [address] Phone: tel: fax: [facility] (All Locations) Referral ID Status Reason Start Date Expiration Date V isits Requested Visits Authorized [id number] Pending Review 04/15/2023 05/14/2024 1 1 OR SCRUM MASTER Reason for Visit * Consultation (Routine) - Closed Specialty Diagnoses / Procedures Referred By Contac t Referred To Contact Neurology Diagnoses Unequal pupils Sylvia Dawson PA [address] [facility] [address] [place] [address] Phone: tel: fax: Joseph Al MD [address] [address] Phone: tel: fax: Referral ID Status Reason Start Date Expiration Date V isits Requested Visits Authorized [id number] Closed Specialty Services Required 04/12/2023 05/11/2024 1 1 Encounter Details Date Type Department Care Team (Late st Contact Info) Description 04/15/2023 1:00 PM SENIOR SCRUM MASTER Office Visit [facility] Ophthalmology 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 I was asked to see this patient in neuro-ophthalmology consultation by KAREN Lynne for evaluation of anisocoria and transient vision loss. Assessment: Transient Vision Loss Episode: Semiology of involvement OU and duration of 10-15 minutes is unlikely to be ischemic episode, although lack of positive visual phenomena and semiology is different thanher known migraine visual auras. However, would like to obtain updated neuroimaging, including imaging of the posterior circulation, especially given her extensive history. She has undergone recent surveillance formal angiogram, but this did not include the posterior circulation. Anisocoria: Resolved. Examination today shows normal, equal pupils, normal EOMs OU, and normal eyelid examination. No clear pharmacologic cause per history, but pharmacologic dilation seems most likely given prior obvious anisocoria with complete resolution and normal pupil examination today. Plan/ Recommendations: - MRI brain and orbit w/wo contrast and CTA head and neck w/wo contrast. - Likely will need TTE and loop recorder to complete stroke work-up, but will defer this to cardiology (scheduled for appointment on 04/28/2023). - If the above testing is negative, then she can return to follow with her primary eye care provider , neurologist, and neurosurgeon. I remain available if new questions/ concerns arise. History of Present Illness: In June & July 2021, underwent CEIOL OU. Notes she had about 6 months of blurred vision aftercataract surgery due to CME, and was on put on Durezol for several months. Had PPV OS (for PVD) January 2022. In February 2022, she reports that surveillance imaging showed that the aneurysm had grown in size.No visual symptoms at that time. She underwent formal angiogram to better evaluate this, and after the procedure noticed new pulsatile tinnitus. She was found to have a new right carotid dissection, and then also found to have a left carotid dissection. In June 2022, she was able to undergo endovascular treatment for the brain aneurysm repaired. In September 2022, she underwent PPV OD, which improved her floaters--no longer sees black floaters, however she sees small shadowy sperm looking things floating by. In mid January 2023, she began to notice pupils were unequal; notes OD vision was blurred at this time while still taking Durezol. The pupil asymmetry has improved over time since she noticed it. Minimal photophobia. In Feb 2023, 03/06/2023, Had an episode where superior portion of vision blacked out ; OD>OS. Notes she could not see through the area where vision was black, but mentions view became more transparent in central and inferior portions of vision. Episode lasted about 10-15 minutes and then returned to baseline. No recurrent episodes since then. The pupils were still anisocoric at that time. No positive visual phenomena. No headache. 03/20/2023, still had anisocoria. At that time, she had an Inspire device for JOSE implanted. Seen by Dr. Adame and instructed tapered off Durezol by mid March 2023 and states vision is now clear. 04/01/2023, saw PCP and reports that her was still off. Seen by PCP and neurology since then who referred pt to neuro-ophthalmology for further evaluation. History of migraine headaches and ocular migraines, but no regularity in them. No vision changes, headaches, diplopia, or dizziness. No known exposure to topical scopolamine or other typical mydriatic agents. No inhalers. Has been on meclizine. Prior Labs: I have independently reviewed relevant prior clinical laboratory tests, and summarized my findings as follows: Lab Results Component Value Date LABPLAT 194 02/24/2023 SEDRATE 2 02/24/2023 CRP <1 02/24/2023 Reference range for CRP at [facility] lab is </= 10. Lab Results Component Value Date LDLCALC 91 02/24/2023 Prior Imaging: - 01/28/2023: Formal cerebral angiogram showed stable treated Acomm aneurysm and patent R ICA Attestations/ Additional notes: My total encounter time on 04/15/2023 was 60 minutes, which was spentin the activities documented in the note. This includes time spent prior to the visit and after thevisit in direct care of the patient. This time does not include time spent in any separately reportable services. OR SCRUM MASTER documented in this encounter Plan of Treatment Not on file documented as of this encounter Procedures Procedure Name Priority Date/Time Associated Diagnosis Comments OCT, RETINA - OU - BOTH EYES Routine 04/15/2023 1:00 PM SENIOR SCRUM MASTER Unspecified disorder of visual pathways Encounter for observation for other suspected diseases and conditions ruled out OCT, OPTIC NERVE - OU - BOTH EYES Routine 04/15/2023 1:00 PM SENIOR SCRUM MASTER Unspecified disorder of visual pathways Encounter for observation for other suspected diseases and conditions ruled out KAUR VISUAL FIELD - OU - BOTH EYES Routine 04/15/2023 1:00 PM SENIOR SCRUM MASTER Unspecified disorder of visual pathways Encounter for observation for other suspected diseases and conditions ruled out documented in this encounter Results * MRI Brain Incl Orbits W WO Contrast (06/08/2023 12:47 PM SENIOR SCRUM MASTER) Anatomical Region Laterality Modality Head and Neck N/A Magnetic Resonan ce 06/08/2023 12:5 6 PM SENIOR SCRUM MASTER Impressions 06/08/2023 12:56 PM SENIOR SCRUM MASTER No MRI explanation for the patient's recent symptoms. Electronically signed by: Hudson Villela M.D. Ph.D. Narrative 06/08/2023 12:56 PM SENIOR SCRUM MASTER EXAMINATION: 1. Magnetic resonance imaging (MRI) of [...] Electronically signed by: Hudson Villela M.D. Ph.D. us Nicol Darling MD IMG MRI PROCEDURES Final Re sult * OCT, Retina - OU - Both Eyes (04/15/2023 1:00 PM SENIOR SCRUM MASTER) Anatomical Region Laterality Modality Head Optical Coherenc e Tomography Narrative 04/16/2023 8:36 PM SENIOR SCRUM MASTER Stable lamellar changes OD Normal OS, but with poor segmentation of GCC us Nicol Darling MD OPHTH TOMOGRAPHY Final Resu lt * OCT, Optic Nerve - OU - Both Eyes (04/15/2023 1:00 PM SENIOR SCRUM MASTER) RNFL OS 77 micrometers CONTINUUM RNFL OD 92 micrometers CONTINUUM Anatomical Region Laterality Modality Head Optical Coherenc e Tomography Narrative 04/16/2023 8:35 PM SENIOR SCRUM MASTER Right Eye Reliability was good. Average RNFL thickness 92 micrometers. Left Eye Reliability was good. Superior thickness was showing abnormal thinning. Average RNFL thickness 77 micrometers. Notes Superior RNFL thinning OS, normal but asymmetric mean RNFL thickness (Performed on Zeiss Cirrus OCT) us Nicol Darling MD OPHTH TOMOGRAPHY Final Resu lt * Kaur Visual Field - OU - Both Eyes (04/15/2023 1:00 PM SENIOR SCRUM MASTER) Anatomical Region Laterality Modality Head Visual Field Narrative 04/16/2023 8:35 PM SENIOR SCRUM MASTER Full OU other than nonspecific misses OS with poor fixation (8/11 FL) us Nicol Darling MD OPHTH VISUAL FIELD Final Re sult documented in this encounter Visit Diagnoses Diagnosis Anisocoria- Primary Transient visual loss of both eyes Unspecified disorder of visual pathways Encounter for observation for other suspected diseases and conditions ruled out Unequal pupils Anisocoria documented in this encounter Historical Medications * This list may reflect changes made after this encounter. Medication Sig Dispense Quantity Refills Last Filled Start D ate End Date Nurtec ODT tablet,disintegrating 04/11/202304/2023 added in this encounter Orders Outpatient Referral Count Last Ordered Date Fir st Ordered Date AMB REFERRAL TO NEUROLOGY 1 05/14/2023 documented in this encounter Eye Exam Visual Acuity (Snellen - Linear) Right eye Left eye Dist sc 20/20 20/20 -2 Tonometry (Tonopen, 2:34 PM) Right eye Left eye Pressure 18 17 Pupils Dark Light Shape React APD Right eye 5.5 3.5 Round Brisk None Left eye 5.5 3.5 Round Brisk None Normal, equal pupils Normal constriction at near OU No dilation lag No tonic redilation Visual Grossman (Counting fingers) Right eye Left eye Full Full Extraocular Movement Right eye Left eye Full Full Neuro/Psych Oriented x3: Yes Mood/Affect: Normal Dilation Both eyes: 1.0% Mydriacyl @ 2:34 PM Color Right eye Left eye Ishihara 02/21 02/21 Reviewed photographs from episode provided by the patient that show clear anisocoria with OD largerthan OS External Exam Right eye Left eye External [...] PPV Fundus Exam Right eye Left eye Disc Normal Normal C/D Ratio 0.2 0.2 Macula Normal Normal Vessels Normal Normal Periphery drusen drusen Care Teams Fleet Technician Relationship Specialty Start Date End Date Sylvia Dawson PA [address] [place] [address] PCP - General Internal Medicine 01/05/20 Erica Rodrigues MD [address] [facility] [address] [place] [address] Radiation Oncologist Radiation Oncology 10/25/18 Gasper Kaba MD [address] [facility] [address] [place] [address] Surgeon Surgical Oncology 10/25/18 Brandy Aguirre, SPACE OPERATIONS [address] [facility] [address] [facility] [address] [place] [address] Nurse Practitioner Certified Clinical Nurse Specialist 10/25/18 Jo-Ann Morrow, PhD [address] [facility] [address] [place] [address] Nurse Practitioner Radiation Oncology 10/25/18 Christina Louis, DIE CASTING MACHINE SETTER [address] [facility] [address] [place] [address] Nurse Practitioner Medical Oncology 10/25/18 Jessy Adame MD [address] [facility], [address] [place] [address] Consulting Physician Retina Ophthalmology 04/15/23 Harpal Carpio MD [address] [place] [address] Neurologist Neurology 04/15/23 Rossana Church DNP [address] [place] [address] Nurse Practitioner Nurse Practitioner 04/15/23 Zahida Kaplan PA [address] DIV NEUROLOGY [facility] [address] [place] [address] Physician Account Strategist Physician Account Strategist 04/15/23 Fadi Cook PA [address] [facility] DIV NEUROLOGY SLEEP MED, [facility] [address] [place] [address] Physician Account Strategist Sleep Medicine 04/15/23 Harpal De León MD [address] [facility] [address] [place] [address] Screen Printing Machine Loader Unloader Cardiology 04/15/23 Valorie Young MD [address] [facility] [address] [place] [address] Screen Printing Machine Loader Unloader Cardiology 04/15/23 Patricia Martinez MD [address] [facility] DIV IM RHEUMATOLOGY, [address] [address] Consulting Physician Rheumatology 04/15/23 documented as of this encounter
--- OUTSIDE RECORDS SUMMARY | 2024-04-24 05:49 | XMS_ITS | Encounter Summary ---
Author Organization [facility] Healthcare Address [address] [place] [address] Care Team Providers Care Applications Support Specialist Name Role Phone Erica Rodrigues MD Unavailable Gasper Kaba MD Unavailable Brandy Aguirre AIRFRAME AND POWERPLANT TECHNICIAN Unavailable [phone] Jo-Ann Morrow PhD Unavailable [phone] COUNSELLOR Unavailable [phone] Sylvia Dawson Primary Care Provider [phone] Encounter Details Date Type Department Care Team (Late st Contact Info) Description 01/27/2023 Orders Only [facility] Neuro Interventional Radiology [address] [place] [address] Rossana Ventura PA [address] [facility] [address] [place] [address] Social History Tobacco Use Types Packs/Day Years [...] file Legal Sex Female 3:42 AM MEDICAL LANGUAGE SPECIALIST Gender Identity Not on file Sexual Orientation Not on file 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 Not on file Not on file documented as of this encounter Plan of Treatment Not on file documented as of this encounter Visit Diagnoses Not on filedocumented in this encounter Care Teams Applications Support Specialist Relationship Specialty Start Date End Date Sylvia Dawson PA [facility] [address] [place] [address] PCP - General Internal Medicine 01/05/20 Erica Rodrigues MD [address] [place] [address] Radiation Oncologist Radiation Oncology 10/25/18 Gasper Kaba MD [address] [facility] [address] [place] [address] Surgeon Surgical Oncology 10/25/18 Brandy Aguirre, AIRFRAME AND POWERPLANT TECHNICIAN [address] [place] [address] Nurse Practitioner Certified Clinical Nurse Specialist 10/25/18 Jo-Ann Morrow, PhD [address] [facility] [address] [place] [address] Nurse Practitioner Radiation Oncology 10/25/18 Christina Louis NP [address] [facility] [address] [place] [address] Nurse Practitioner Medical Oncology 10/25/18 documented as of this encounter
--- OUTSIDE RECORDS SUMMARY | 2024-04-24 05:49 | XMS_ITS | Encounter Summary ---
Author Organization [facility] [employer] of [facility] Address [address] [place] [address] Phone Care Team Providers Care Rough Rice Tender Name Role Phone Erica Rodrigues MD Unavailable Gasper Kaba MD Unavailable Brandy Aguirre PIZZA HUT ASSISTANT Unavailable [phone] Jo-Ann Morrow PhD Unavailable [phone] Christina Louis COFFEE ROASTER Unavailable [phone] Sylvia Dawson Primary Care Provider [phone] Reason for Visit * Consultation (Routine) - Closed Specialty Diagnoses / Procedures Referred By Contac t Referred To Contact Genetics / Pediatric Genetics Diagnoses Benign familial hypermobility Ailyn Stubbs, JENNI Phone: tel: fax: [facility] (All Locations) Referral ID Status Reason Start Date Expiration Date V isits Requested Visits Authorized [id number] Closed Specialty Services Required 03/16/2023 04/14/2024 1 1 Encounter Details Date Type Department Care Team (Late st Contact Info) Description 03/23/2023 10:[address] COMMISSIONER Office Visit [facility] Pediatric Genetics [facility] 2nd [place] [address] [place] [id number] Wen Montenegro MD [address] [facility] [address] [place] [address] Cerebral arterial aneurysm (Primary Dx); Dissection of carotid artery (CMS/HCC) (HCC); Benign familial hypermobility; Myopia of both eyes Social History Tobacco Use [...] on file Legal Sex Female 3:[address] COMMISSIONER Gender Identity Not on file Sexual Orientation Not on file 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 Not on file Not on file Not on file documented as of this encounter Last Filed Vital Signs Vital Sign Reading Time Taken Comments Blood Pressure 112/54 03/23/2023 10:[address] COMMISSIONER Pulse 98 03/23/2023 10:[address] COMMISSIONER Temperature 36.2 ??C (97.2 ??F) 03/23/2023 10:[address] Respiratory Rate - - Oxygen Saturation 98% 03/23/2023 10:[address] COMMISSIONER Inhaled Oxygen Concentration - - Weight 65 kg (143 lb 4.8 oz) 03/23/2023 10:[address] COMMISSIONER Height 160 cm (5' 2.99 ) 03/23/2023 10:[address] COMMISSIONER Body Mass Index 25.39 03/23/2023 10:[address] COMMISSIONER documented in this encounter Patient Instructions * Patient Instructions* Wen Montenegro MD - 03/23/2023 10:[address] COMMISSIONER It was a pleasure to see you in clinic today. Please contact us with any questions or concerns at any time. You can reach me via [employer] or by calling the office ([phone]). T COMMISSIONER documented in this encounter Progress Notes * Wen Montenegro MD - 03/23/2023 10:00 AM CST Images from the original note were not included. Department of Pediatrics Division of Genetics & Genomic Medicine General Genetics Clinic Chief Complaint Yesika Denney is a 62 y.o. woman referred by KAREN Lynne for evaluation of hypermobility and history of arterial dissections. She was unaccompanied today. Historian History was obtained from Yesika and from review of Yesika Mandujano's medical records. Specific medical records reviewed include office notes, hospital records, laboratory studies, and [facility] since 2018 . Pertinent information included in the records and myinterpretation are included in the documentation below. HPI Yesika Mandujano was referred due to a history of cerebral aneurysm, atraumatic bilateral carotid artery dissections, and a history of joint pain with seronegative rheumatoid arthritis. Details below: Cerebral artery aneurysm - Anterior communicating Artery Dx [...] right was not thought to be acute Blood pressure issues Diagnosed age 49 Currently well controlled on COVID has affected BP since 2020, in hospital for a week, resumed meds when dc'd and was hypotensive. Stopped lisinopril. Then it has come back up COVID in December 2022, October had orthostatic hypotension. Lisinopril and atenalol for tachycardic Tachycardia started post COVID 2020, happens randomly Seronegative Rheumatoid Arthritis Symptoms started after treatment for breast cancer Breast Cancer - Stage 1 right invasive ductal carcinoma s/p resection Diagnosed age 54 Was trialed on Ansatrozole for one month then developed joint pain symptoms Per patient report, Dr. Martinez (Rheumatology) has seen musculoskeletal symptoms after giving this medication (consistent with literature) Varicose veins Developed in her 20's Migraines Started age 19 [facility] Occasional swelling, morning stiffness that improved with steroids No joint pain as a kid, no severe growing pains TMJ - jaw would get stuck open in early teen years Used to be hypermobile - could put ankle up to neck from behind. 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 Dx 2021. Stretch carmona, came with Atrophic scaring at port insertion site (reports complications with insertion) Past Medical History Past Medical History: Diagnosis Date Autoimmune disease (CMS/HCC) ([facility]) Benign left breast lump 06/2002 biopsy [...] Obstructive sleep apnea 06/19/2022 RA (rheumatoid arthritis) ([facility]) Past Surgical History: Procedure Laterality Date ANGIO SELECTIVE CAROTID PIZZA HUT ASSISTANT RIGHT Right 01/28/2023 ANGIO SELECTIVE INTERNAL CAROTID [...] 02/2007 VITRECTOMY Right 09/23/2022 for CME Family History: Please see the scanned pedigree for additional details. Briefly, Yesika Mandujano has 3 children. Her daughter is healthy but her 2 sons have hypermobility, jointpain, stretch carmona, and ligamentous tears. Yesika's siblings have some hypermobility but also histories of rheumatoid arthritis in 2 sisters. Yesika has 3 nephews with a diagnosis or suspected autism spectrum disorders. Yesika's mother has a bicuspid aortic valve and was diagnosed with a thoracic aortic aneurysm at 66y.She is hypermobile. She has a history of polio. Her brother may have an aneurysm, unsure at this time. Yesika's maternal great grandfather and his sister were very hypermobile (performed with an acrobatic group). Yesika's father at age 89. He had joint pain and arthritis. He and his son (Yesika's half brother)had bad veins . His sister's daughter (Yesika's paternal first cousin) has a brain aneurysm diagnosed in her 80's. There is no other history of defects, intellectual disability, aneurysms, or sudden . Previous Genetic Testing None Other Relevant Tests/Studies Echocardiogram 09/20/20: Aortic Root 3.2cm (WNL) MRA 02/08/22: 1. No acute intracranial process. 2. Superiorly directed anterior communicating artery aneurysm, measuring 5 mm, unchanged. Physical Examination LMP (LMP Unknown) Weight: Wt Readings from Last 1 Encounters: 02/24/23 63.5 kg (140 lb) Height: Ht Readings from Last 1 Encounters: 02/24/23 160 cm (5' 3 ) BMI: There is no height or weight on file to calculate BMI. General: Well appearing adult. Appears stated age. Average height and build. HEENT: Normocephalic, no dolichocephaly. Ears are somewhat large but normally positioned and configured. No pits or tags. Eyes are not deep set. Sclera are white. Palpebral fissures are horizontal. No epicanthal folds. No hypo- or hyper- telorism.. No iridodonesis. Thin nasal ridge (s/p rhinoplasty). Palate is normally configured. Uvula is singular and midline.. Unremarkable chin.. Chest: No chest wall abnormalities. No chest asymmetry. No flaring of the ribs. Lungs: Clear to auscultation bilaterally, no crackles or wheezes. Breathing comfortably. No increased work of breathing. Heart: Regular rate and rhythm. No murmurs, rubs, or gallops. Abdomen: No abdominal wall defects. Bowel sounds present. Musculoskeletal: Normally formed limbs, hands, feet, and digits. Palmar creasing is normal. Hands are somewhat acrogeric. 2nd toe bilaterally is deviated laterally. Beighton score is negative but shedoes have significant popping in large joints with passive ROM. + Wrist sign. - Thumb Sign. Skin: No capillary hemangiomas or significant birthmarks. Skin is soft and velvety. Skin is not translucent but there is some visible veining and varicose veins particularly of the lower extremities.There is an atrophic scar at one site (port incision), otherwise scars are normal, recent incision of the chest/neck with inspire insertion is healing well. No piezogenic papules Neuro: Normal tone and symmetric movement of extremities. Normal muscle bulk. Reflexes 2/4 all extremities. Impression Yesika Denney is a 62 y.o. woman with a history of cerebral aneurysm, spontaneous carotid artery dissections, and a history of hypermobility. She does not have hypermobility on exam today but does have popping/clicking of large joints on passive ROM. Mother's history of possible bicuspid aortic valve and TAAD diagnosed at age 66 along with a familyhistory of extreme flexibility, however, are suggestive of a possible underlying genetic etiology but does not suggest a specific disorder. Many connective tissue disorders are associated with an increased risk of aortic dilation or other vascular diseases and require additional monitoring. While the genetic basis of cerebral aneurysms is less well understood, there is significant overlap in the genes known to cause TAAD that are implicated in the development of cerebral aneurysms (PMID: 21488635). Molecular diagnosis would affect Yesika Mandujano's medical management, genetic testing is therefore recommended. Recommend starting with a TAAD panel as PKD is not suspected for Yesika based on imaging and family history. If negative, would recommend Whole Exome Seqeuncing as the highest yield diagnostic testing for this patient. Provided genetic counseling including discussion of risks (VUS, identification of non-maternity/paternity) and benefits (diagnosis, change in medical care). Patient would like to proceed with testing. Plan TAAD Panel to [facility] Follow Up We will arrange follow up pending test results. I spent a total of 70 minutes in care of the patient today including pre- and post-work, examination, counseling and/or coordination of care as documented within the note. 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 documented in this encounter Orders Outpatient Referral Count Last Ordered Date Fir st Ordered Date AMB REFERRAL TO PEDIATRIC GENETICS 1 2022 documented in this encounter Care Teams Rough Rice Tender Relationship Specialty Start Date End Date Sylvia Dawson PA [address] [place] [address] PCP - General Internal Medicine 01/05/20 Erica Rodrigues MD [address] [place] [address] Radiation Oncologist Radiation Oncology 10/25/18 Gasper Kaba MD [address] [place] [address] Surgeon Surgical Oncology 10/25/18 Brandy Aguirre, PIZZA HUT ASSISTANT [address] [place] [address] Nurse Practitioner Certified Clinical Nurse Specialist 10/25/18 Jo-Ann Morrow, PhD [address] [place] [address] Nurse Practitioner Radiation Oncology 10/25/18 Christina Louis, JENNI [address] [place] [address] Nurse Practitioner Medical Oncology 10/25/18 documented as of this encounter
--- OUTSIDE RECORDS SUMMARY | 2024-04-24 05:49 | XMS_ITS | Encounter Summary ---
Author Organization [facility] Address [address] [place] [address] Care Team Providers Care Treatment Counselor Name Role Phone Erica Rodrigues MD Unavailable Gasper Kaba MD Unavailable [phone] Brandy Aguirre SENIOR MEDIA BUYER Unavailable [phone] Jo-Ann Morrow PhD Unavailable [phone] Christina Louis CLIENT PROJECT COORDINATOR Unavailable [phone] Sylvia Dawson Primary Care Provider [phone] Encounter Details Date Type Department Care Team (Late st Contact Info) Description 12/29/2022 Orders Only [facility] Family Medicine [address] [place] [address] Sylvia Dawson PA [address] [place] [address] Acute cough (Primary Dx); Fever, unspecified fever cause Social History Tobacco Use Types Packs/Day Years [...] on file Legal Sex Female 3:42 AM FLAT GRINDER OPERATOR Gender Identity Not on file Sexual Orientation Not on file 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 12/29/22 9:07 AM Valorie Baugh 12/29/2022 12/29/2022 01/08/2023 3:05 AM CDT documented as of this encounter Care Teams Treatment Counselor Relationship Specialty Start Date End Date Sylvia Dawson PA [address] [facility] [address] [place] [address] PCP - General Internal Medicine 01/05/20 Erica Rodrigues MD [address] [place] [address] Radiation Oncologist Radiation Oncology 10/25/18 Gasper Kaba MD [address] [place] [address] Surgeon Surgical Oncology 10/25/18 Brandy Aguirre, SENIOR MEDIA BUYER [address] [place] [address] Nurse Practitioner Certified Clinical Nurse Specialist 10/25/18 Jo-Ann Morrow, PhD [address] [place] [address] Nurse Practitioner Radiation Oncology 10/25/18 Christina Louis, CLIENT PROJECT COORDINATOR [address] [place], [place] [address] Nurse Practitioner Medical Oncology 10/25/18 documented as of this encounter
--- OUTSIDE RECORDS SUMMARY | 2024-04-24 05:49 | XMS_ITS | Encounter Summary ---
Author Organization [facility] Address [address] [place] [address] Care Team Providers Care Sourcing Internship Name Role Phone Erica Rodrigues MD Unavailable Gasper Kaba MD Unavailable [phone] Brandy Aguirre GENERAL PRODUCTION LABORER Unavailable Jo-Ann Morrow PhD Unavailable [phone] Christina Louis FOOD SERVICE EMPLOYEE Unavailable [phone] Sylvia Dawson Primary Care Provider [phone] Reason for Visit * Reason Comments No Call Made Encounter Details Date Type Department Care Team (Late st Contact Info) Description 01/06/2023 ACO Outreach [facility] Accountable Care Organization [address] [place] [address] Gasper Edmonds RN [address] [place] [address] [address] [place] [address] Social History Tobacco Use Types Packs/Day Years [...] on file Legal Sex Female 3:42 AM ANGLESMITH HELPER Gender Identity Not on file Sexual Orientation Not on file 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 Not on file Not on file Not on file documented as of this encounter Progress Notes * Gasper Edmonds RN - 01/06/2023 12:10 PM CDT Rn sent pt letter with Covid- contact documented in this encounter Plan of Treatment [...] documented as of this encounter Care Teams Sourcing Internship Relationship Specialty Start Date End Date Sylvia Dawson PA [address] [facility] [address] [place] [address] PCP - General Internal Medicine 01/05/20 Erica Rodrigues MD [address] [place] [address] Radiation Oncologist Radiation Oncology 10/25/18 Gasper Kaba MD [address] [place] [address] Surgeon Surgical Oncology 10/25/18 Brandy Aguirre CNS [address] [facility] [address] [place] [address] Nurse Practitioner Certified Clinical Nurse Specialist 10/25/18 Jo-Ann Morrow, PhD [address] [facility] [address] [address] [place] [address] Nurse Practitioner Radiation Oncology 10/25/18 Christina Louis, FOOD SERVICE EMPLOYEE [address] [facility] [address] [place] [address] Nurse Practitioner Medical Oncology 10/25/18 documented as of this encounter
--- OUTSIDE RECORDS SUMMARY | 2024-04-24 05:49 | XMS_ITS | Encounter Summary ---
Author Organization [facility] [employer] [facility] Address [address] [place] [address] Phone Care Team Providers Care Hand Bander Name Role Phone Erica Rodrigues MD Unavailable Gasper Kaba MD Unavailable Brandy Aguirre DIRECTOR OF LITIGATION Unavailable [phone] Jo-Ann Morrow PhD Unavailable Christina Louis TICKET SALES SUPERVISOR Unavailable [phone] Sylvia Dawson Primary Care Provider [phone] Encounter Details Date Type Department Care Team (Late st Contact Info) Description 12/29/2022 Telephone [facility] [address] [facility] 6th [place] [address] [place] [address] Abdiaziz Moss MD [address] [place] [address] Social History Tobacco Use Types Packs/Day Years [...] on file Legal Sex Female 3:42 AM TACTICAL DECEPTION PLANS OFFICER Gender Identity Not on file Sexual Orientation Not on file 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 Harmony in IR, is going to call the patient regarding the COVID patient protocol * Telephone Encounter - Lesley Stovall RMA - 12/29/2022 11:12 AM CDT Spoke with Harmony regarding rescheduling the patient appointment, she reached out to infection prevention and is waiting on a call back regarding the COVID protocol. * Telephone Encounter - Magdalene Redd - 12/29/2022 9:53 AM CDT Harmony in IR called to notify you that patient has tested positive for covid on Thursday and needs to reschedule her Angio for 12/31. Harmony wanting to discuss where to reschedule her to. When you have a moment, can you call her. documented in this encounter Plan of Treatment [...] documented as of this encounter Care Teams Hand Bander Relationship Specialty Start Date End Date Sylvia Dawson PA [address] [place] [address] PCP - General Internal Medicine 01/05/20 Erica Rodrigues MD [address] [place] [address] Radiation Oncologist Radiation Oncology 10/25/18 Gasper Kaba MD [address] [place] [address] Surgeon Surgical Oncology 10/25/18 Brandy Aguirre, DIRECTOR OF LITIGATION [address] [place] [address] Nurse Practitioner Certified Clinical Nurse Specialist 10/25/18 Jo-Ann Morrow, PhD [address] [place] [address] Nurse Practitioner Radiation Oncology 10/25/18 Christina Louis, TICKET SALES SUPERVISOR [address] [place] [address] Nurse Practitioner Medical Oncology 10/25/18 documented as of this encounter
--- OUTSIDE RECORDS SUMMARY | 2024-04-24 05:49 | XMS_ITS | Encounter Summary ---
Author Organization [facility] Healthcare Address [address] [place] [address] Care Team Providers Care Manager Math Name Role Phone Erica Rodrigues MD Unavailable Gasper Kaba MD Unavailable Brandy Aguirre AIR TWIST OPERATOR Unavailable [phone] Jo-Ann Morrow PhD Unavailable [phone] Christina Louis NP Unavailable [phone] Sylvia Dawson Primary Care Provider [phone] Reason for Visit * Auth/Cert (Routine) Specialty Diagnoses / Procedures Referred By Contac t Referred To Contact Diagnoses JOSE (obstructive sleep apnea) JOSE (obstructive sleep apnea) [G47.33] Procedures OK OPEN IMPLTJ HPGLSL NRV NSTIM RA PG&RESPIR SENSOR INSERTION CRANIAL NERVE NEUROSTIMULATOR ELECTRODE ARRAY AND PULSE GENERATOR INSERTION CHEST WALL RESPIRATORY SENSOR ELECTRODE ARRAY AND PULSE GENERATOR Referral ID Status Reason Start Date Expiration Date Visits Re quested Visits Authorized [id number] 1 1 Encounter Details Date Type Department Care Team (Late st Contact Info) Description 03/20/2023 11:09 AM FINANCIAL ENGINEER Anesthesia Event [facility] Operating Room [address] [place] [address] Lois Dobson MD [address] [place] [address] Iva Shoemaker NP [address] [facility] [id number] [place] [address] Anesthesia Record Procedure Summary Procedure Name Responsible Anesthesiologist Anesthesia Start Time Anesthesia Stop Time INSPIRE HYPOGLOSSAL NERVE STIMULATOR IMPLANT - INSERTION (Right: Neck) Lois Dobson MD 03/20/23 1109 03/20/23 1251 Events Date Time Event Comment 03/20/2023 0857 In Preop 0947 AN Equip Check 0956 1109 An Start 1114 In Room 1115 An Start Data 1119 An Induction The patient was reevaluated immediately before moderate or deep sedation use and before anesthesia induction. 1121 An Intubation 1123 HOB turned 180 degrees 1134 Proc Start 1140 Anesthesia Ready 1149 Incision Start 1238 An Extubation 1241 Proc Fin 1244 Out of Room 1250 an stop data 1251 Handoff to RN I completed my handoff to the receiving nurse during which we: 1. Patient identified 2. Responsible provider identified 3. Pertinent medical history reviewed 4. Procedure type and surgical course discussed 5. Intraoperative anesthetic management and any significant issues discussed 6. Expectations and concerns for postop period discussed 7. Questions solicited from receiving nurse 8. Patient disposition at the time of handoff: No value filed. 1251 An Stop Meds Name Total midazolam 2 mg/2 mL 2 mg fentaNYL PF 100 mcg Lidocaine IV 1% PF 70 mg propofol 150 mg succinylcholine syringe 100 mg/5 mL 90 m g ePHEDrine 30 mg phenylephrine syringe 100 mcg/mL 100 mcg glycopyrrolate 0.2 mg ondansetron PF 8 mg dexamethasone 4 mg/ml 8 mg famotidine (PEPCID) injection 20 mg 20 m g lidocaine 4 % solution 2 mL ceFAZolin 2,000 mg HYDROmorphone 2 mg/mL 0.2 mg dexmedeTOMIDine 12 mcg esmolol 10 mg Lactated Ringer's (LR) infusion 1,300 mL * Agents Name O2 N2O Air Sevoflurane Inspired Sevoflurane * Blood No blood administrations on file. Lines, Drains, and Airways Type Details Placement Removal RETIRED Surgical Site 09/23/22; 1326; Ri ght; Eye; 03/15/24 (Retired LDA, Removed/Completed by [employer] with LDA Utility); 1213 (Retired LDA, Removed/Completed by [employer] with LDA Utility) 09/23/22 1326 by Olga Lorenzo RN 03/15/24 1213 by Discharge Provider, Automatic Peripheral IV Placement Date: 03/20/23; Placement Time: 0956; Catheter Size: 20 G; Orientation: Anterior, Left; Location: Forearm; Site Prep: Chlorhexidine; Technique: Anatomical landmarks; Inserted by: janna; Insertion Attempts: 1; Patient Tolerance: Tolerated well; Removal Date: 03/20/23; Removal Time: 1339 03/20/23 0956 by Laquita Armando RN 03/20/23 1339 by Corinna Stratton RN RETIRED Surgical Site 03/20/23; 1139; Ri ght; Chest; 03/15/24 (Retired LDA, Removed/Completed by [facility] with LDA Utility); 1213 (Retired LDA, Removed/Completed by [employer] with LDA Utility) 03/20/23 1139 by Farzaneh Portillo RN 03/15/24 1213 by Discharge Provider, Automatic RETIRED Surgical Site 03/20/23; 1139; Ri ght; Neck; 03/15/24 (Retired LDA, Removed/Completed by [facility] with LDA Utility); 1213 (Retired LDA, Removed/Completed by [facility] with LDA Utility) 03/20/23 1139 by Farzaneh Portillo RN 03/15/24 1213 by Discharge Provider, Automatic ETT Placement Date: 03/20/23; Placement Time: 1152 (created via procedure documentation); Mask Ventilation: 1; Technique: Direct laryngoscopy; Type: Reinforced tube; Single Lumen Tube Size: 6.5 mm; Cuffed: Yes; Laryngoscope: Narinder; Blade Size: 4; Location: Oral; Grade View: Grade I; Insertion Attempts: 1; Placement Verification: Auscultation, Capnometry; Airway Comment: Easy and atraumatic intubation. Taped with silk tape to the left side of mouth. 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 Not on file Not on file Not on file documented as of this encounter OR Notes * Anesthesia Postprocedure Evaluation - Lois Dobson MD - 03/20/2023 1:14 PM FINANCIAL ENGINEER Patient: Yesika Denney Procedure Summary Date: 03/20/23 Room / Location: [facility] 09 / [facility] Anesthesia Start: 1109 Anesthesia Stop: 1251 Procedures: INSPIRE HYPOGLOSSAL NERVE STIMULATOR IMPLANT - INSERTION (Right: Neck) INSERTION CHEST WALL RESPIRATORY SENSOR ELECTRODE ARRAY AND PULSE GENERATOR (Right: Chest) Diagnosis: JOSE (obstructive sleep apnea) (JOSE (obstructive sleep apnea) [G47.33]) Surgeons: Albin Pereyra MD Responsible Provider: Lois Dobson MD Anesthesia Type: general ASA Status: 3 Anesthesia Type: general Last vitals BP 123/67 Pulse 91 Temp 36.3 ??C (97.3 ??F) (Temporal) Resp 10 SpO2 97% Anesthesia Post Evaluation Patient location during evaluation: PACU Pain management: adequate Airway patency: adequate and patent Cardiovascular status: acceptable Respiratory status: acceptable Hydration status: acceptable Comments: Ready for discharge from pacu No notable events documented. NCIAL ENGINEER * Anesthesia Procedure Notes - Esme Branch CRNA - 03/20/2023 11:51 AM CSTAssociated Order(s): Airway Airway Patient location: OR Urgency: elective Indications for airway management: anesthesia Difficult airway: no Staff: Placed by: STEWARD/STEWARDESS: Esme Branch CRNA Airway prep: Preoxygenated: yes Patient position: sniffing Mask difficulty assessment: 1 - vent by mask Spontaneous ventilation during airway: absent Sedation level during airway: GA Final airway details: Final airway type: endotracheal airway Tube type: reinforced tube ETT size: 6.5 mm Cuffed: yes Technique used for successful ETT placement: direct laryngoscopy Devices/Methods used in placement: LTA and stylet Insertion site: oral Blade type: Narinder Blade size: 4 Cormack-Lehane (direct): grade I - full view of glottis Cuff volume: 6 mL Cuff inflated with: air Placement verified by: auscultation and CO2 detection Airway secured with: silk tape Number of attempts: 1 Additional comments: Easy and atraumatic intubation. Taped with silk tape to the left side of mouth. NCIAL ENGINEER * Anesthesia Preprocedure Evaluation - Lois Dobson MD - 03/12/2023 11:53 AM FINANCIAL ENGINEER Images from the original note were not included. [facility] Preoperative Assessment and Planning Preoperative Evaluation Record Evaluation type/location: TPAP from [facility] Planned procedure site: [facility] OR Date: 03/12/23 NOTE: This note represents a preoperative evaluation initiated via telephone interview. NO PHYSICALEXAM was performed at the time of initial assessment. A physical exam may be added to this note anddocumented below. Anesthesia Evaluation Yesika Denney is a 62 y.o. female Procedure(s): INSPIRE HYPOGLOSSAL NERVE STIMULATOR IMPLANT - INSERTION INSERTION CHEST WALL RESPIRATORY SENSOR ELECTRODE ARRAY AND PULSE GENERATOR Pre-Op Diagnosis Codes: * JOSE (obstructive sleep apnea) [G47.33] HISTORY HPI Yesika Denney is a 61 y.o. female undergoing Inspire hypoglossal nerve stimulator implant insertion in the right neck and right chest wall respiratory sensor electrode array and pulse generator placement 2/2 JOSE. Anesthesia: General Past Medical History Information obtained from: patient and chart. Neurological + Carotid artery stent - bilateral carotid. Date of last carotid artery stent: 04/09/22. + ICA stenosis (right cervical carotid dissection with greater than 75% stenosis s/p stent 04/09/22) Pertinent negatives: seizures; neuromuscular disease; CVA/stroke; CEA and dementia/mild cognitive impairment Comments: chronic anterior communicating artery aneurysm status post web device placement for a anterior communicating artery aneurysm (06/11/22) followed by Dr.Joshue Moss last visit 07/2022. Angiogram performed 01/28/23 -- communication occluded, f/u in 1 year. 04/09/22 +right carotid dissection s/p Successful flow diversion of FRANKO dissection with a surpass streamline flow diverter +distal left cervical internal carotid artery dissection s/p LVIS stent across the dissection Cardiovascular + Hypertension (120s-130s/80s) Hypertension year diagnosed: 2005. + Hyperlipidemia + Systolic or diastolic dysfunction w/o CHF Diastolic dysfunction w/o CHF. Diastolic function: stage I - impaired relaxation LVEF: 60-70%. + Other arrhythmia (Ectopic atrial tachycardia) - sinus tachycardia. Pertinent negatives: CAD ; NH ; CABG ; valvular heart disease; valve replacement; atrial fibrillation; pacemaker/ICD; PVD; DVT/PE; negative for CHF; drug-eluting stent(s); bare metal stent(s) and coronary angioplasty Comments: Dr. De León, last OVN 04/17/22. Dr. Young new pt OVN 07/14/22. Respiratory + Sleep apnea (JOSE) (recently diagnosed) Prescribed device: CPAP and PAP non-compliant. Pertinent negatives: COPD; asthma; pulmonary hypertension; no O2 use outside the hospital and non-smoker Hepatic / Heme Pertinent negatives: liver disease Renal / Pertinent negatives: renal disease and dialysis Musculoskeletal/Pain + Headaches - migraine headaches. Pertinent negatives: chronic opioid use and previous treatment for opioid use disorder Endocrine / Other + Cancer history- in remission. Cancer type: right breast; chemo-03/2015, radiation-12/2014. + Rheumatological disease (Rx methotrexate, sulfasalazine) - rheumatoid arthritis and Raynaud's phenomenon. + Infectious disease (hospitalized for COVID & PNA in 2020. denies s/s UTI.) - pneumonia. Pertinent negatives: diabetes mellitus; thyroid disease (s/p partial thyroidectomy); obesity (BMI >30) and transplanted organ Comments: [facility] rheumatology [facility] 03/2022 Functional Capacity Functional capacity: 4-6 METs Comments: Patient would be able to walk up 2 flight of stairs at moderate pace without SOB or CP. Patient would be able to walk 4 city blocks at moderate pace without SOB or CP. Does vacuum, garden w/o CP or SOB. Feels her exercise tolerance is at baseline. Review of Systems + productive cough (w/ covid, resolved) + recent cold/flu (Covid in Dec, sx resolved. did not require hospitalization this time.) + fever (w/ covid, resolved) + unexpected wt change (May have put on a few pounds while in [place] for 2 weeks visiting 's family -- ate more than usual.) Pertinent negatives: SOB; chest pain; palpitations; orthopnea; pedal edema; PND; previous transfusion; bleeding problems; syncope; dizziness; heartburn; abdominal pain and diaphoresis Comments: Patient denies any S/S of UTI. PAT Summary and Plans Cardiac risk classification of planned procedure: low cardiac risk. Initial preoperative evaluation discussed with: Rehan Kelly MD Additional comments: Yesika Denney is a 62 y.o. female who is being evaluated prior to undergoing a low cardiac risk surgery. Revised Cardiac Risk Index factors are (none) for a total RCRI of 0 out of 6. Functional capacity is 4-6 METs. Obstructive sleep apnea (JOSE) screening status is HIGH RISK due to known JOSE. JOSE orders placed. This assessment was performed via telephone. Therefore the physical exam has been deferred to the day of surgery team. The patient was provided with preoperative instructions for their medications. The patient was instructed to continue her aspirin. Patient instructions were provided by telephone and electronically sent via [employer]. Patient verbalized understanding of instructions. Blood bank needs for day of procedure: No type and screen needed Pending labs/tests include: None The patient saw opthomologist Dr. Adame today 03/12. Notes episodes of superior vision loss, mainly OD, lasts for less than 10 min. History of R ant communicating aneurysm. Will communicate these symptoms with Dr. Moss. TPAP instructed the patient to continue aspirin. TPAP spoke to Sophia in Dr. Moss's office asking if the patient requires a new clinic visit or further diagnostics prior to stimulator placement with the c/f amaurosis fugax of the right eye. Angiogram 01/28/23 was reassuring. Sophia is sending message to Dr. Moss to determine is further follow up is required. Awaiting response. Message sent to surgeon's office. The patient is on aspirin therapy and has a history of bilateral carotid stents as well as c/f amaurosis fugax of the right eye. We recommend that aspirin be continued throughout the perioperative period. However, if aspirin needs to be discontinued because the surgical risk of bleeding due to aspirin is considered to outweigh its benefits, we would then recommend stopping aspirin up to 7-10 daysprior to the procedure and resuming aspirin therapy as soon as possible in the postoperative period. Per Urology & ENT protocol, patient provided directly with instructions. Please call the CPAP chart room clinician ([phone]) with any questions or to discuss alternative management plans. Message sent to surgeon's office. Preoperative evaluation performed by Beth Ramirez NP on 03/12/23 at 11:54 AM . Follow up note Received staff message from Dr Moss's office that he is ok with patient proceeding with surgery. Sent [employer] staff message to surgeon's office to inform. Awaiting cardiology office visit note from office visit scheduled for today at 1400. Follow-up completed by: Viola Kang NP on 03/16/23 at 10:53 AM Follow up note Reviewed cards OVN, no changes to medication therapy made. [facility] complete Follow-up completed by: Alexa Ruiz NP on 03/17/23 at 7:33 AM Patient Active Problem List Diagnosis Date Noted Amaurosis fugax of right eye 03/12/2023 Obstructive sleep apnea 06/19/2022 Brain aneurysm 06/16/2022 [...] 01/30/2016 Rheumatoid arthritis with negative rheumatoid factor ([facility]) 07/24/2015 Headache 01/25/2015 Malignant neoplasm of central portion of right breast in female, estrogen receptor positive ([facility]) 10/27/2014 Migraine with aura 08/20/2011 Disorder of binocular movement 06/10/2011 Visual discomfort 06/10/2011 Cerebral arterial aneurysm 10/24/2010 Past Medical History: Diagnosis Date Autoimmune disease (CMS/HCC) (HCC) Benign left breast lump 06/2002 biopsy showed fibrosis and hyperplasia Brain aneurysm Followed by Dr. Chaudhari: Every 3 years Breast cancer ([facility]) 2014 Invasive ductal carcinoma Cataract CME (cystoid macular edema), bilateral Depression Elevated cholesterol History of chemotherapy 2014 Breast cancer History of radiation therapy 2014 Right breast Hypertension Migraine Motion sickness sometimes on [place] Obstructive sleep apnea 06/19/2022 RA (rheumatoid arthritis) ([facility]) Past Surgical History: Procedure Laterality Date ANGIO SELECTIVE CAROTID AIR TWIST OPERATOR RIGHT Right 01/28/2023 ANGIO SELECTIVE INTERNAL CAROTID [...] LIGATION 02/2007 VITRECTOMY Right 09/23/2022 for CME OB History 3 Para 3 Term 3 AB Living 3 SAB IAB Ectopic Multiple Live Births 3 Obstetric Comments [employer] history: 3 para 3, 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 No history fertility medications. She used oral contraceptives in the past. One does progesterone 08/2014. She experienced menopause approximately age 53. Allergies Allergen Reactions Adhesive Hives Paper tape OK Cyclizine Other (See comments) and Hallucinations Marezine about 1981 Reaction: Urinary retention Med List Status: Nurse Complete Set By: Mali Jin RN at 02/24/2023 2:31 PM Taking? Last Dose Start Date End Date Provider acetaminophen (TYLENOL) 325 mg tablet Past Month 04/10/22 -- Asha Hines NP Take 2 tablets (650 mg total) by mouth every 6 (six) hours as needed for pain Do not exceed 4000 mgof acetaminophen in a 24 hour period. Patient taking differently: Take 2 tablets (650 mg total) by mouth every 6 (six) hours as needed for pain Do not exceed 4000 mg of acetaminophen in a 24 hour period. aspirin 81 mg enteric coated tablet 02/24/2023 05/28/22 -- Abdiaziz Moss MD Take 1 tablet (81 mg total) by mouth daily Patient taking differently: Take 1 tablet (81 mg total) by mouth every morning atenoloL (TENORMIN) 25 mg tablet 02/24/2023 09/16/22 -- Harpal De León MD TAKE 1 TABLET(25 MG) BY MOUTH DAILY Patient taking differently: Take 1 tablet (25 mg total) by mouth every morning agdkgzcwue-zlabnuysidvtt-homanmvk-codeine (FIORICET WITH CODEINE) 14-790-06-30 mg per capsule Past Week 11/18/22 -- Sylvia Dawson PA TAKE 1 CAPSULE BY MOUTH EVERY 4 HOURS NEEDED FOR HEADACHE Patient taking differently: Take 1 capsule by mouth every 6 (six) hours as needed for headaches difluprednate (DUREZOL) 0.05 % drops -- 03/12/23 04/02/23 Jessy Adame MD Administer 1 drop into the right eye 3 (three) times a day for 7 days, THEN 1 drop 2 (two) times a day for 7 days, THEN 1 drop daily for 7 days. ezetimibe (ZETIA) 10 mg tablet 02/24/2023 08/06/22 08/06/23 Nazia Ventura MD Take 1 tablet (10 mg total) by mouth daily Patient taking differently: Take 1 tablet (10 mg total) by mouth every morning famotidine-Ca carb-mag hydrox (PEPCID COMPLETE) 10-800-165 mg chewable tablet Past Week -- -- Ronda Ruano MD FLUoxetine (PROzac) 20 mg capsule 02/24/2023 01/23/23 -- Sylvia Dawson PA TAKE 1 CAPSULE(20 MG) BY MOUTH TWICE DAILY Patient taking differently: Take 1 capsule (20 mg total) by mouth every morning folic acid (FOLVITE) 1 mg tablet 02/24/2023 08/22/22 -- Patricia Martinez MD Take 2 tablets (2,000 mcg total) by mouth daily Patient taking differently: Take 2 tablets (2,000 mcg total) by mouth every morning hydroCHLOROthiazide (HYDRODIURIL) 12.5 mg tablet More than a month 09/01/22 -- Sylvia Dawson PA TAKE 1 TABLET(12.5 MG) BY MOUTH DAILY Patient taking differently: Take 1 tablet (12.5 mg total) by mouth daily as needed (when BP is elevated for a few days) lisinopriL (PRINIVIL,ZESTRIL) 40 mg tablet 02/24/2023 07/17/22 -- Sylvia Dawson PA Take 1 tablet (40 mg total) by mouth daily Patient taking differently: Take 1 tablet (40 mg total) by mouth every morning Notes: Please cancel Rx for 20mg to avoid duplicate therapy magnesium gluconate 200 mg tablet Past Month -- -- Ronda Ruano MD methotrexate 2.5 mg tablet Past Week 08/22/22 -- Patricia Martinez MD Take 8 tablets on Patient taking differently: Take 8 tablets (20 mg total) by mouth every 7 days Take 8 tablets on multivitamin with minerals tablet 02/24/2023 -- -- Ronda Ruano MD sulfaSALAzine EN (AZULFIDINE EN) 500 mg EC tablet 02/24/2023 01/21/23 -- Patricia Martinez MD TAKE 2 TABLETS(1000 MG) BY MOUTH TWICE DAILY Patient taking differently: Take 1 tablet (500 mg total) by mouth every morning valACYclovir (Valtrex) 500 mg tablet 02/24/2023 02/27/22 -- Sylvia Dawson PA Take 1 tablet (500 mg total) by mouth daily Patient taking differently: Take 1 tablet (500 mg total) by mouth every morning vit H-H-saxfsw-zinc-lutein (PreserVision Lutein) 226-90-0.8-5 mg capsule 02/24/2023 -- -- ProviderRonda MD Patient taking differently: No current facility-administered medications for this encounter. Current Outpatient Medications: acetaminophen (TYLENOL) 325 mg tablet aspirin 81 mg enteric coated tablet atenoloL (TENORMIN) 25 mg tablet ozjzvsfbkt-goltdkkrxzaat-zbakpfef-codeine (FIORICET WITH CODEINE) 67-664-47-30 mg per capsule ezetimibe (ZETIA) 10 mg tablet famotidine-Ca carb-mag hydrox (PEPCID COMPLETE) 10-800-165 mg chewable tablet FLUoxetine (PROzac) 20 mg capsule folic acid (FOLVITE) 1 mg tablet lisinopriL (PRINIVIL,ZESTRIL) 40 mg tablet magnesium gluconate 200 mg tablet methotrexate 2.5 mg tablet multivitamin with minerals tablet sulfaSALAzine EN (AZULFIDINE EN) 500 mg EC tablet valACYclovir (Valtrex) 500 mg tablet vit A-T-pvxrrw-zinc-lutein (PreserVision Lutein) 226-90-0.8-5 mg capsule difluprednate (DUREZOL) 0.05 % drops hydroCHLOROthiazide (HYDRODIURIL) 12.5 mg tablet Social History Tobacco Use Smoking Status Never Passive exposure: Never Smokeless Tobacco Never Alcohol Use: Not At Risk (02/24/2023) AUDIT-C Frequency of Alcohol Consumption: Monthly or less Average Number of Drinks: 1 or 2 Frequency of Binge Drinking: Never Substance and Sexual Activity Drug Use Not Currently Comment: 2 drinks per month Family History Problem Relation Age of Onset [...] Hyperthermia Neg Hx Pseudochol deficiency Neg Hx There were no vitals filed for this visit. Relevant diagnostics: ECG(s): 03/28/20 Echocardiogram(s): TTE Conclusions: Normal left ventricular systolic function. No focal wall motion abnormalities. Normal left ventricular size. Impaired diastolic relaxation Grade I. Ejection fraction is measured at 62 %. Trivial mitral, tricuspid and pulmonic regurgitation. Compared with 2019: no change. Stress test(s): N/A Cardiac catheterization(s): N/A PFT(s): 12/09/21 IMPRESSION: 1. Normal pulmonary function test 2. Ambulatory oximetry was performed. At this level of activity the patient did not require supplemental oxygen to maintain saturations greater than 88% Vascular studies: IR angio selective carotid AIR TWIST OPERATOR R - 01/28/23 IMPRESSION: 1. Satisfactory occlusion of the anterior [...] of the treated anterior communicating artery aneurysm. Other: IR placement carotid stent 04/09/22: IMPRESSION: 1. Initial angiography demonstrated a right internal carotid artery dissection with severe stenosis and a pseudoaneurysm. The anterior communicating artery aneurysm was seen but not fully characterized on the current exam. 2. Successful flow diversion of the right internal carotid artery dissection with a surpass streamline flow diverter. 3. Prior to planned treatment of the anterior communicating artery aneurysm a dissection was noted in the distal left cervical internal carotid artery. The dissection may be iatrogenic or previously present and exacerbated by manipulation. The decision was made to place a LVIS stent across the dissection and delay the planned treatment of the anterior communicating artery aneurysm. 3. Final angiography demonstrated widely patent endovascular stents in the bilateral cervical internal carotid arteries. There are no distal thromboembolic complications PLAN: - Continue aspirin 325 mg and Plavix 75 mg - Observation overnight and possible discharge following day with the plan for a later return and treatment of the anterior communicating artery aneurysm. 03/20/22 CTA head/neck IMPRESSION: 1. No acute intracranial process. 2. Short segment dissection of the distal cervical right internal carotid artery, with an area of severe focal narrowing described above. 3. 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 04/10/22 MRA head w wo con IMPRESSION: 1. No acute intracranial process. 2. Superiorly directed anterior communicating artery aneurysm, measuring 5 mm, unchanged. 03/31/20 30 day monitor Cardiologis Review of Transmissions: Normal sinus rhythm [...] The full scanned/data report is available in [employer]. labeled MONITOR STRIPS PDF . PT: No results found for requested labs within last 30 days. INR: No results found for requested labs within last 30 days. APTT: No results found for requested labs within last 30 days. Hgb A1C: No results found for requested labs within last 30 days. CBC RBC: 02/24/2023: 3.89 x10E6/uL RDW: 02/24/2023: 13.4 % MCHC: 02/24/2023: 33.2 g/dL MCH: 02/24/2023: 32.9 pg MCV: 02/24/2023: 99 fL (H) Hct: 02/24/2023: 38.5 % Hgb: 02/24/2023: 12.8 g/dL WBC: 02/24/2023: 4.2 x10E3/uL MPV: No results found for requested labs within last 30 days. Platelets: 02/24/2023: 194 x10E3/uL RDW CV: No results found for requested labs within last 30 days. RDW Sd: No results found for requested labs within last 30 days. BMP Glucose: No results found for requested labs within last 30 days. Calcium: No results found for requested labs within last 30 days. Sodium: No results found for requested labs within last 30 days. Potassium: No results found for requested labs within last 30 days. CO2: No results found for requested labs within last 30 days. Chloride: No results found for requested labs within last 30 days. BUN: No results found for requested labs within last 30 days. Creatinine: No results found for requested labs within last 30 days. Chelsea index score: 100 DOS Physical Exam Medical history, medications, and allergies reviewed. Attestation: This PAT evaluation Airway Exam: Mallampati: I Cervical ROM: FROM Pulmonary Exam: LCTA, bilat EENT Exam: trachea midline Anesthesia Plan ASA 3 My patient is approved for the Anesthesia Controlled Medication protocol when under care of a STEWARD/STEWARDESS Planned anesthesia: General Induction: Induction: intravenous. Informed Consent: Anesthesia plan and risks discussed with patient. Consent and Attending signature: I and/or my designee have discussed the anesthesia plan, benefits, possible alternatives, parental presence at time of induction (if indicated), and clinically relevant risks that may include dental injury, unintentional awareness, and/or other complications. The patient and/or parent/legal guardian understand, and agree to proceed. All questions answered. NCIAL ENGINEER NCIAL ENGINEER NCIAL ENGINEER NCIAL ENGINEER documented in this encounter Plan of Treatment Not on file documented as of this encounter Procedures Procedure Name Priority Date/Time Associated Diagnosis Comments OK AN PROCEDURE PLACEHOLDER Routine 03/20/2023 11:51 AM FINANCIAL ENGINEER OK AN ELECTIVE ENDOTRACHEAL AIRWAY Routine 03/20/2023 11:51 AM FINANCIAL ENGINEER documented in this encounter Results * OK AN ELECTIVE ENDOTRACHEAL AIRWAY, OK AN PROCEDURE PLACEHOLDER (03/20/2023 11:51 AM FINANCIAL ENGINEER) Narrative Esme Branch CRNA - 03/20/2023 11:51 AM FINANCIAL ENGINEER Esme Branch CRNA ? 03/20/2023 11:52 AM Airway Patient location: OR Urgency: elective Indications for airway management: anesthesia Difficult airway: no Staff: Placed by: STEWARD/STEWARDESS: Esme Branch CRNA Airway prep: Preoxygenated: yes Patient position: sniffing Mask difficulty assessment: 1 - vent by mask Spontaneous ventilation during airway: absent Sedation level during airway: GA Final airway details: Final airway type: endotracheal airway Tube type: reinforced tube ETT size: 6.5 mm Cuffed: yes Technique used for successful ETT placement: direct laryngoscopy Devices/Methods used in placement: LTA and stylet Insertion site: oral Blade type: Narinder Blade size: 4 Cormack-Lehane (direct): grade I - full view of glottis Cuff volume: 6 mL Cuff inflated with: air Placement verified by: auscultation and CO2 detection Airway secured with: silk tape Number of attempts: 1 Additional comments: Easy and atraumatic intubation. ?? Taped with silk tape to the left side of mouth. us Lois Dobson MD ANESTHESIA ORDERABLES Final Resu lt documented in this encounter Visit Diagnoses Not on filedocumented in this encounter Administered Medications Inactive Administered Medications - up to 3 most recent administrations Medication Order MAR Action Action Date Dose Rate Site ceFAZolin (ANCEF) injection intravenous, Administer over 3 Minutes, As needed, Starting on Thu03/20/23 at 1125, Anesthesia Intra-op Given 03/20/2023 11:25 AM FINANCIAL ENGINEER 2,000 mg dexAMETHasone (DECADRON) 4 mg/mL injection intravenous, Administer over 2 Minutes, As needed, Starting on Thu03/20/23 at 1109, Anesthesia Intra-op Given 03/20/2023 11:09 AM FINANCIAL ENGINEER 8 mg dexmedeTOMIDine (PRECEDEX) injection intravenous, As needed, Starting on Thu03/20/23 at 1155, Anesthesia Intra-op Given 03/20/2023 12:42 PM FINANCIAL ENGINEER 4 mcg Given 03/20/2023 11:55 AM FINANCIAL ENGINEER 8 mcg ePHEDrine injection intravenous, Administer over 5 Minutes, As needed, Starting on Thu03/20/23 at 1130, Anesthesia Intra-op Given 03/20/2023 11:35 AM FINANCIAL ENGINEER 10 mg Given 03/20/2023 11:32 AM FINANCIAL ENGINEER 10 mg Given 03/20/2023 11:30 AM FINANCIAL ENGINEER 10 mg esmoloL (BREVIBLOC) injection intravenous, Administer over 1 Minutes, As needed, Starting on Thu03/20/23 at 1235, Anesthesia Intra-op Given 03/20/2023 12:35 PM FINANCIAL ENGINEER 10 mg famotidine (PEPCID) injection 20 mg 20 mg, intravenous, Administer over 2 Minutes, Once as needed, heartburn, Medication to be administered by the anesthesia staff (Anesthesiologist or STEWARD/STEWARDESS), Starting on Thu03/20/23 at 0940, For 1 dose, Pre-Op, Indications: Heartburn, Heartburn Prevention, gastroesophageal reflux disease, RefluxIndications:Heartburn,Heartburn Prevention,gastroesophageal reflux disease,Reflux Given 03/20/2023 11:09 AM FINANCIAL ENGINEER 20 mg fentaNYL (SUBLIMAZE) preservative free injection intravenous, As needed, Starting on Thu03/20/23 at 1116, Anesthesia Intra-op Given 03/20/2023 11:47 AM FINANCIAL ENGINEER 25 mcg Given 03/20/2023 11:16 AM FINANCIAL ENGINEER 75 mcg glycopyrrolate (ROBINUL) injection intravenous, Administer over 1 Minutes, As needed, Starting on Thu03/20/23 at 1136, Anesthesia Intra-op Given 03/20/2023 11:36 AM FINANCIAL ENGINEER 0.2 mg HYDROmorphone (DILAUDID) injection intravenous, Administer over 2 Minutes, As needed, Starting on Thu03/20/23 at 1155, Anesthesia Intra-op Given 03/20/2023 11:55 AM FINANCIAL ENGINEER 0.2 mg Lactated Ringer's (LR) infusion 30 mL/hr, intravenous, Continuous, Starting on Thu03/20/23 at 1015, For 4 hours, Pre-Op, Use a 500 ml bag for End Stage Renal Disease Patients. Discontinue if fluid still running once patient arrives to floor. New Bag 03/20/2023 11:50 AM FINANCIAL ENGINEER Restarted 03/20/2023 11:12 AM FINANCIAL ENGINEER New Bag 03/20/2023 11:09 AM FINANCIAL ENGINEER 50 mL/hr lidocaine (XYLOCAINE) 4 % (40 mg/mL) external solution topical, As needed, Starting on Thu03/20/23 at 1121, Anesthesia Intra-op Given 03/20/2023 11:21 AM FINANCIAL ENGINEER 2 mL lidocaine PF (XYLOCAINE) 10 mg/mL (1 %) preservative free injection intravenous, As needed, Starting on Thu03/20/23 at 1119, Anesthesia Intra-op Given 03/20/2023 12:31 PM FINANCIAL ENGINEER 30 mg Given 03/20/2023 11:19 AM FINANCIAL ENGINEER 40 mg midazolam (VERSED) 1 mg/mL injection intravenous, As needed, Starting on Thu03/20/23 at 1109, Anesthesia Intra-op Given 03/20/2023 11:09 AM FINANCIAL ENGINEER 2 mg ondansetron (ZOFRAN) injection intravenous, Administer over 2 Minutes, As needed, Starting on Thu03/20/23 at 1109, Anesthesia Intra-op Given 03/20/2023 12:31 PM FINANCIAL ENGINEER 4 mg Given 03/20/2023 11:09 AM FINANCIAL ENGINEER 4 mg phenylephrine (JUANIS-SYNEPHRINE) 1 mg/10 mL (100 mcg/mL) in sodium chloride 0.9% (premix) intravenous, As needed, Starting on Thu03/20/23 at 1135, Anesthesia Intra-op Given 03/20/2023 12:10 PM FINANCIAL ENGINEER 50 mcg Given 03/20/2023 11:35 AM FINANCIAL ENGINEER 50 mcg propofoL (DIPRIVAN) 10 mg/mL IV intravenous, As needed, Starting on Thu03/20/23 at 1119, Anesthesia Intra-op Given 03/20/2023 12:33 PM FINANCIAL ENGINEER 30 mg Given 03/20/2023 11:19 AM FINANCIAL ENGINEER 120 mg succinylcholine syringe intravenous, As needed, Starting on Thu03/20/23 at 1119, Anesthesia Intra-op Given 03/20/2023 11:19 AM FINANCIAL ENGINEER 90 mg documented in this encounter Care Teams Manager Math Relationship Specialty Start Date End Date Sylvia Dawson PA [address] [place] [address] [place] [id number] PCP - General Internal Medicine 01/05/20 Erica Rodrigues MD [address] [facility] [address] [place] [address] Radiation Oncologist Radiation Oncology 10/25/18 Gasper Kaba MD [address] [facility] [address] [place] [address] Surgeon Surgical Oncology 10/25/18 Brandy Aguirre, AIR TWIST OPERATOR [address] [facility] [address] [place] [address] Nurse Practitioner Certified Clinical Nurse Specialist 10/25/18 Jo-Ann Morrow, PhD [address] [facility] [address] [place] [address] Nurse Practitioner Radiation Oncology 10/25/18 Christina Louis, BOX TENDER [address] [facility] [address] [place] [address] Nurse Practitioner Medical Oncology 10/25/18 documented as of this encounter
--- OUTSIDE RECORDS SUMMARY | 2024-04-24 05:49 | XMS_ITS | Encounter Summary ---
Author Organization [facility] Healthcare Address [address] [place] [address] Care Team Providers Care Land Surveying Survey Worker Name Role Phone Erica Rodrigues MD Unavailable Gasper Kaba MD Unavailable Brandy Aguirre STROBOSCOPE OPERATOR Unavailable Jo-Ann Morrow PhD Unavailable [phone] Christina Louis OPHTHALMOLOGY ASSISTANT Unavailable [phone] Sylvia Dawson Primary Care Provider [phone] Reason for Visit * Reason Onset Date Comments Home sleep study results 12/17/2022 Encounter Details Date Type Department Care Team (Late st Contact Info) Description 12/17/2022 Telephone [facility] [address] [place] [address] Douglas Acosta MD [address] [facility] [address] [address] Home sleep study results Social History Tobacco Use Types Packs/Day Years [...] on file Legal Sex 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 She understood her results and will call to discuss her options with Dr Acosta at a follow up appointment. She will call if she has any questions. documented in this encounter Plan of Treatment Not on file documented as of this encounter Visit Diagnoses Not on filedocumented in this encounter Care Teams Land Surveying Survey Worker Relationship Specialty Start Date End Date Sylvia Dawson PA [address] [place] [address] [address] [place] [address] PCP - General Internal Medicine 01/05/20 Erica Rodrigues MD [address] [facility] [address] [place] [address] Radiation Oncologist Radiation Oncology 10/25/18 Gasper Kaba MD [address] [facility] [address] [facility] [address] [place] [address] Surgeon Surgical Oncology 10/25/18 Brandy Aguirre CNS [address] [facility] [address] [facility] [address] [place] [address] Nurse Practitioner Certified Clinical Nurse Specialist 10/25/18 Jo-Ann Morrow, PhD [address] [facility] [address] [facility] [address] [place] [address] Nurse Practitioner Radiation Oncology 10/25/18 Christina Louis OPHTHALMOLOGY ASSISTANT [address] [facility] [address] [facility] [address] [place] [address] Nurse Practitioner Medical Oncology 10/25/18 documented as of this encounter
--- OUTSIDE RECORDS SUMMARY | 2024-04-24 05:49 | XMS_ITS | Encounter Summary ---
Author Organization [facility] Healthcare Address [address] [place] [address] Care Team Providers Care Cooper Helper Name Role Phone Erica Rodrigues MD Unavailable Gasper Kaba MD Unavailable Brandy Aguirre PHOTOVOLTAIC TESTING TECHNICIAN Unavailable Jo-Ann Morrow PhD Unavailable [phone] Christina Louis CONTACT WORKER Unavailable [phone] Sylvia Dawson Primary Care Provider [phone] Reason for Visit * Auth/Cert (Routine) Specialty [...] Expiration Date Visits Re quested Visits Authorized [id number] 1 1 Encounter Details Date Type Department Care Team (Latest Contact Info) Description 03/20/2023 8:51 AM TERRITORY SALES CONSULTANT - 03/20/2023 1:40 PM TERRITORY SALES CONSULTANT Hospital Encounter [facility] Operating Room [address] Kayla Ruggiero ANDRESSALANE AMAYA RAMESH [address] Albin Pereyra MD [address] [place] [address] Obstructive sleep apnea (Primary Dx) Discharge Disposition: Discharge to home or self [...] on file Legal Sex Female 3:42 AM TERRITORY SALES CONSULTANT Gender Identity Not on file Sexual Orientation Not on file 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 on file Not on file Not on file documented as of this encounter Last Filed Vital Signs Vital Sign Reading Time Taken Comments Blood Pressure 138/80 03/20/2023 1:20 PM TERRITORY SALES CONSULTANT Pulse 90 03/20/2023 1:20 PM TERRITORY SALES CONSULTANT Temperature 36.3 ??C (97.3 ??F) 03/20/2023 9:03 AM CS T Respiratory Rate 11 03/20/2023 1:20 PM TERRITORY SALES CONSULTANT Oxygen Saturation 93% 03/20/2023 1:20 PM TERRITORY SALES CONSULTANT Inhaled Oxygen Concentration - - Weight 63.5 kg (140 lb) 02/24/2023 2:30 PM TERRITORY SALES CONSULTANT Height 160 cm (5' 3 ) 02/24/2023 2:30 PM TERRITORY SALES CONSULTANT Body Mass Index 24.8 02/24/2023 2:30 PM TERRITORY SALES CONSULTANT documented in this encounter Discharge Instructions * Discharge Instructions* Corinna Stratton RN - 03/20/2023 11:42 AM TERRITORY SALES CONSULTANT ENT Discharge Instructions Procedure: Right hypoglossal [...] needed. - Stool Softener: Take stool softener (Djdc-xyy-mevnkdm or prescription) while taking narcotic medication to prevent constipation. Laxatives not recommended. - Antibiotic: None - Anticoagulation/antiplatelet agents: Resume home Aspirin and Resume home anticoagulant Pathology: Final Pathology will take 7-10 days to result. This should be discussed with you at your scheduledfollow up appointment. If for some reason it is not and you have not received a call from the office to tell you your final pathology within 2 weeks of discharge, please contact the surgeon's nurse at the number listed below or contact the main office line at [phone]. Follow up: You should follow up in Albin Ruiz MD's clinic as scheduled below. [facility] [address] [place] [address] OTHER FOLLOW UP: 1. PCP - for [...] 04/21/2023 10:00 AM Harpal De León MD [facility] CAR MRVL Specialty 04/29/2023 9:40 AM Jessy Adame MD RETINA COH 6 OP 04/30/2023 8:30 AM Fadi Cook PA SLEEP CTR 40 NL 06/03/2023 4:30 PM Fadi Cook PA SLEEP CTR 40 NL 09/16/2023 10:15 AM Valorie Young MD CAR CAM 8B Cardiology Phone numbers Appointment Scheduling: Urgent Concerns after hours or Weekends: Call and ask for the ENT resident conveyor feeder. During Regular Business Hours (8am-5pm Thursday through Thursday): Dr. Pereyra (Marley Jones RN): [phone] Questions: If you have any concerns or [...] of narcotic pain medication include Percocet, Oxycontin, [place], Hydrocodone, and Oxycodone. FAQs (frequently asked questions) [...] physical therapy, we are available to assist: [facility] STAR: [facility] [phone] [place] [phone] [facility] [phone] How are some things that you can [...] by your doctor or other health care director. ITORY SALES CONSULTANT ITORY SALES CONSULTANT ITORY SALES CONSULTANT documented in this encounter Medications at [...] 1 tablet by mouth every morning vit F-E-uskjfz-zinc-lut ein (PreserVision Lutein) 226-90-0.8-5 mg capsuleIndications: Eye [...] 90 tablet 1 3 09/09/19 24 butalbital-acetamin qtcoj-lctlsayv-iqqy ine (FIORICET WITH CODEINE) 98-763-89-30 mg per capsuleIndications: Nonintractable headache, unspecified chronicity [...] Albin Pereyra MD at 03/20/2023 10:01 AM TERRITORY SALES CONSULTANT ITORY SALES CONSULTANT ITORY SALES CONSULTANT Source Note - Ailyn Stubbs NP - 03/16/2023 2:00 PM TERRITORY SALES CONSULTANT Patient Name: Yesika Denney : : [...] Obstructive sleep apnea 06/19/2022 RA (rheumatoid arthritis) ([facility]) HISTORY OF PRESENT ILLNESS: 62 y.o. female [...] by mouth every morning) 90 tablet 1 kweagnosrs-lrnmrcfitawyu-cdekpvbi-codeine (FIORICET WITH CODEINE) 26-239-46-30 mg per capsule TAKE 1 CAPSULE BY [...] mouth every morning) 90 tablet 2 vit L-R-tfmqey-zinc-lutein (PreserVision Lutein) 226-90-0.8-5 mg capsule Take 1 [...] The full scanned/data report is available in [employer]. labeled MONITOR STRIPS PDF ASSESSMENT & PLAN: [...] Young in 6 months. Ailyn Stubbs NP ITORY SALES CONSULTANT documented in this encounter Miscellaneous Notes * Op Note - Albin Pereyra MD - 03/20/2023 11:49 AM CST DATE OF SURGERY: 03/20/2023 PREOPERATIVE DIAGNOSIS: Obstructive sleep apnea POSTOPERATIVE DIAGNOSIS: Obstructive sleep apnea PROCEDURE PERFORMED: Right hypoglossal nerve stimulator implantation Generator placement right chest wall Lead placement right intercostal muscle ATTENDING SURGEON: Albin Pereyra MD RN RADIATION ONCOLOGY SURGEON: Surgeon(s): Albin Pereyra MD Rincon Briceno, Andrae Bird MD ANESTHESIA: General EBL: 30 mL COMPLICATIONS: [...] not include any of those within the marine equipment sales engineer. Next, we instilled saline/bacitracin solution under the [...] participated for the entirety of the surgery. ITORY SALES CONSULTANT * Perioperative Nursing Note - Laquita Armando RN - 03/20/2023 11:00 AM CST Pts Right pupil noted to be larger than left, Anesthesia aware, pt states Has been this way over past couple months , denies headaches, vision changes ITORY SALES CONSULTANT * Pre-Procedure Instructions - Beth Ramirez NP - 03/12/2023 11:42 AM TERRITORY SALES CONSULTANT [facility] CPAP Clinic Location: [facility] The night before your surgery: * Do [...] 25 mg tablet Take morning of surgery uecqljifua-udeftttgidble-zszroklk-codeine (FIORICET WITH CODEINE) 16-680-89-30 mg per capsule Take on day of [...] mg tablet Take morning of surgery vit Q-C-tgwrsm-zinc-lutein (PreserVision Lutein) 226-90-0.8-5 mg capsule Stop taking [...] with COVID-19. You test positive for COVID-19. ITORY SALES CONSULTANT * Perioperative Nursing Note - Mali Jin RN - 02/24/2023 2:44 PM TERRITORY SALES CONSULTANT [facility] for Preoperative Assessment and Planning Perioperative Nursing Note Telephone Preoperative Evaluation ([facility]) - TELEPHONE ONLY, NO PHYSICAL EXAM [...] by mouth every morning) 90 tablet 1 tufulzfbyh-lstuvykofspok-qwxobycs-codeine (FIORICET WITH CODEINE) 04-134-02-30 mg per capsule TAKE 1 CAPSULE BY [...] mouth every morning) 90 tablet 2 vit M-J-fbwmcq-zinc-lutein (PreserVision Lutein) 226-90-0.8-5 mg capsule Take 1 tablet by mouth 2 (two) times a day Implants Stent Surpass Streamline Flow Diverter - Implanted (Right) Carotid Building Tech: [employer] Neurovascular Lot number: [id number] Size: 5MM X 50MM Device identifier: [id number] Device identifier type: GS1 As of 04/09/2022 Status: Implanted Lvis Intrluminal Support Device - Implanted (Left) Carotid Building Tech: [employer] Lot number: [id number] Size: 5.5MM X 33MM As of 04/09/2022 Status: Implanted Vascular Closure Device Angio-Seal Vip Vascular Closure Device - Implanted (Right) Femoral Building Tech: DLC Lot number: [id number] As of 04/09/2022 Status: Implanted Type Not Specified [employer] Web Sl 5mm 3mm Device Embolization W5-5-3 - [id number] - Implanted (Left) Inventory item: MI[employer] INC WEB SL 5MM 3MM DEVICE EMBOLIZATION W5-5-3 Model/Cat number: W5-5-3 Building Tech: [employer] Lot number: [id number] As of 02/24/2023 Status: Implanted DLC Angio-Seal Vip 6fr Closere Device [id number] - [id number] - Implanted (Right) Inventory item: [employer] ANGIO-SEAL VIP 6FR CLOSERE DEVICE [id number] Model/Cat number: [id number] Building Tech: DLC Lot number: [id number] As of 06/16/2022 Status: Implanted Vasorum Ltd Device 5fr Closure Celt Acd Vascular Sterile Latex Free Disposable Juan Kclt-05 - [id number] - Implanted Inventory item: VASORUM LTD DEVICE 5FR CLOSURE CELT ACD VASCULAR STERILE LATEX FREE DISPOSABLE JUAN KCLT-05 Model/Cat number: KCLT-05 Building Tech: [employer] LTD Lot number: [id number] As of 01/28/2023 Status: Implanted SKIN Piercings [...] other Support Systems: Spouse/significant other Assistance Needed: Mobile Architect and helper: Christiano Patient expects to be discharged to:: Private residence [place] NO ITORY SALES CONSULTANT * Pre-Procedure Instructions - Mali Jin RN - 02/24/2023 2:43 PM TERRITORY SALES CONSULTANT [facility] [...] remove nail coverings, artificial nails and nail colombian prior to the day of surgery. You should leave your valuables and any jewelry at home. No metal or piercings are allowed in the operating room. You should bring your insurance card, a photo ID (example: Mobile Architect's License) and a method of payment for [...] Chart. If you are having surgery at [facility], please arrive on the day of surgery [...] Pathway to Excellent Care by the followinglink: [email or web address] How To Prepare Your Skin For Surgery [...] Remove nail coverings, artificial nails and nail colombian. The Morning of Surgery: Take a shower [...] Countries visited in the last 30 days: [place] Exposure Screening Have you been exposed to [...] questions, please call the CPAP Staff at [phone], Thursday-Thursday 8am-4:30pm. All patients should read the below section: COVID 19 Updates & Visitor Policy: Please access [email or web address] for the most updated information. Information on [facility]: Please view [email or web address] (Patient & Visitor Information) for additional details regarding Advanced Directive forms, AWARE, directions, parking information, lodging, Internet access, dining and more. Information on [facility] or [facility] ([facility]): Please view [email or web address] (Patient and Visitor Information) for parking/directions and more. For MyChart information, to activate account or password recovery, please go to [email or web address] or call [phone] (toll-free: [phone]), Thu- Thursday 8am-5pm. Information for Suicide Prevention: National Suicide Prevention Lifeline (4-249- 425-IBZG (3893)). Surgery Times: For patients having surgery @ [facility], if your surgeon's office has not notified you of your surgery time by 2pm THE BUSINESS DAY BEFORE your surgery, please call the surgery center at [phone] and ask for your surgeon's office Dr Albin Pereyra. ITORY SALES CONSULTANT documented in this encounter Plan of Treatment Not on file documented as of this encounter Procedures Procedure Name Priority Date/Time Associated Diagnosis Comments INSERTION CHEST WALL RESPIRATORY SENSOR ELECTRODE ARRAY AND PULSE GENERATOR 03/20/2023 11:14 AM TERRITORY SALES CONSULTANT OJSE (obstructive sleep apnea) Case Notes 10/16/22 I [...] STIMULATOR IMPLANT - INSERTION 03/20/2023 11:14 AM TERRITORY SALES CONSULTANT JOSE (obstructive sleep apnea) Case Notes [...] Dec. POC ISTAT Routine 03/20/2023 9:47 AM TERRITORY SALES CONSULTANT documented in this encounter Results * POC ISTAT (03/20/2023 9:47 AM TERRITORY SALES CONSULTANT) [facility] POC 4.1 3.3 - 4.9 mmol/L KATHY ROOT Comment: Interpretive Data This method is not able to assess for hemolysis, which may falsely increase potassium concentrations. If further testing is needed to evaluate this result, consider in-laboratory plasma potassium. Current Interpretive Data was last revised on 2021. POC Device Number [id number] [facility] POC Performer [id number] [facility] Blood 03/20/2023 9:47 AM TERRITORY SALES CONSULTANT 03/20/2023 9:47 AM TERRITORY SALES CONSULTANT us Albin Pereyra MD LAB BLOOD ORDERABLES Final Result [facility] [id number] [facility] [place] [address] documented in this encounter Visit Diagnoses Diagnosis [...] Anesthesiologist., Indications: PainIndications:Pain Given 03/20/2023 1:15 PM TERRITORY SALES CONSULTANT 1 tablet Lactated Ringer's (LR) infusion 30 mL/hr, intravenous, Continuous, Starting on Thu03/20/23 at 1015, For 4 hours, Pre-Op, Use a 500 ml bag for End Stage Renal Disease Patients. Discontinue if fluid still running once patient arrives to floor. New Bag 03/20/2023 11:50 AM TERRITORY SALES CONSULTANT Restarted 03/20/2023 11:12 AM TERRITORY SALES CONSULTANT New Bag 03/20/2023 11:09 AM TERRITORY SALES CONSULTANT 50 mL/hr documented in this encounter Active and Recently Administered Medications Times are shown in TERRITORY SALES CONSULTANT. Continuous Medication Order 03/18/2023 03/19/2023 03/20/2023 [...] Esme Branch CRNA)1150 (New Bag - Provider: Esem Branch CRNA)1231 (Anesthesia Volume Adjustment - Provider: [...] administered by the anesthesia staff (Anesthesiologist or MARKETING INTERN), Starting on Thu03/20/23 at 0940, For 1 [...] 03/20/2023 hydrALAZINE (APRESOLINE) injection 5 mg 1 1 05/21/2022 HYDROmorphone (DILAUDID) injection 0.2 mg 1 03/20/2023 labetaloL (NORMODYNE,TRANDAT E) injection 5 mg 1 03/20/2023 Lactated Ringer's (LR) infusion 2 3 lidocaine PF (XYLOCAINE) 10 mg/mL (1 %) preservative free injection 2-10 mg 1 03/20/2023 lidocaine-EPINEPHrine (XYLOC AMANDA with EPI) 1 %-1:100,000 injection 1 03/20/2023 meperidine (DEMEROL) preserv ative free injection 12.5 mg 1 03/20/2023 naloxone (NARCAN) 0.4 mg/mL injection 0.04-0.4 mg 1 03/20/2023 ondansetron (ZOFRAN) injection 4 mg 1 03/20 prochlorperazine (COMPAZINE) injection 5 mg 1 03/20/2023 scopolamine patch 72 hour 1 patch 1 023 sodium chloride 0.9% flush 0.5-20 mL 1 11/2022 sodium chloride 0.9% irrigation 1 3 Discharge Count Last Ordered Date First Orde red Date DISCHARGE PATIENT 1 03/20/2023 documented in this encounter Care Teams Cooper Helper Relationship Specialty Start Date End Date Sylvia Dawson PA [address] [place] [address] PCP - General Internal Medicine 01/05/20 Erica Rodrigues MD [address] [facility] [place] [address] Radiation Oncologist Radiation Oncology 7/15/19 Gasper Kaba MD [address] [place] [address] Surgeon Surgical Oncology 10/25/18 Brandy Aguirre, PHOTOVOLTAIC TESTING TECHNICIAN [address] [place] [address] Nurse Practitioner Certified Clinical Nurse Specialist 10/25/18 Jo-Ann Morrow, PhD [address] [place] [address] Nurse Practitioner Radiation Oncology 10/25/18 Christina Louis CONTACT WORKER [address] [place] [address] Nurse Practitioner Medical Oncology 10/25/18 documented as of this encounter
--- OUTSIDE RECORDS SUMMARY | 2024-04-24 05:50 | XMS_ITS | Encounter Summary ---
Author Organization [facility] Address [address] [place] [address] Phone Care Team Providers Care Work Study Student Name Role Phone Erica Rodrigues MD Unavailable Gasper Kaba MD Unavailable [phone] Brandy Aguirre REAGENT TENDER Unavailable [phone] Jo-Ann Morrow PhD Unavailable [phone] Christina Louis WINDOW SHADE ESTIMATOR Unavailable [phone] Sylvia Dawson Primary Care Provider [phone] Reason for Referral * Diagnostic Imaging (Routine) - Closed Specialty Diagnoses / Procedures Referred By Contac t Referred To Contact Diagnoses Cystoid macular edema of both eyes Procedures OCT, Retina - [place] [address] [place] [address] [address] [place] [address] Phone: tel: fax: [facility] (All Locations) Referral ID Status Reason Start Date Expiration Date Visits Re quested Visits Authorized [id number] Closed 10/29/2022 11/28/2023 1 1 Reason for Visit * Reason Comments CME Encounter Details Date Type Department Care Team (Late st Contact Info) Description 10/29/2022 9:20 AM CDT Office Visit [facility] Ophthalmology [address] [address] [place] [address] Jessy Adame MD [address] [facility] [address] [place], [place] [id number] Cystoid macular edema of both eyes (Primary [...] file Legal Sex Female 3:42 AM VP CORPORATE DEVELOPMENT Gender Identity Not on file Sexual Orientation Not on file 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 Denies new floaters/flashes Ocular meds: Durezol QID OD AT prn OU Methotrexate weekly (every ) FA 2g weekly Last edited by Malorie Perez COA on 10/29/2022 9:33 AM. Assessment/Plan Diagnoses and all orders for this visit: Cystoid macular edema of both eyes (Primary) Assessment & Plan: Status post vitrectomy surgery, has persistent cystoid macular edema. Is on Durezol QID OD - improving. No ME OS. Recommend stay on Durezol QID OD. We will re-evaluate in roughly 2-3 weeks time. Orders: - OCT, Retina - OU - Both Eyes OCT, Retina - OU - Both Eyes Right Eye Quality was good. Scan locations included subfoveal. Progression has improved. Findings include intraretinal fluid. Left Eye Quality was good. Scan locations included subfoveal. Progression has been stable. Findings include normal observations. Notes No ME OS The signs and symptoms of retinal detachment, tears, infection, elevated intra- ocular pressure werereviewed with the patient. Patient knows to call should they have any of the symptoms. PLAN FOR NEXT VISIT Follow-up and Dispositions Return in about 3 weeks (around 11/19/2022) for Dilated exam OU, OCT OU. documented in this encounter Miscellaneous Notes * Assessment & Plan Note - Jessy Adame MD - 10/29/2022 10:12 AM CDT Associated Problem(s): Cystoid macular edema of both eyes Status post vitrectomy surgery, has persistent cystoid macular edema. Is on Durezol QID OD - improving. No ME OS. Recommend stay on Durezol QID OD. We will re-evaluate in roughly 2-3 weeks time. documented in this encounter Plan of Treatment Not on file documented as of this encounter Procedures Procedure Name Priority Date/Time Associated Diagnosis Comments OCT, RETINA - OU - BOTH EYES Routine 10/29/2022 10:11 AM CDT Cystoid macular edema of both eyes documented in this encounter Results * OCT, Retina - OU - Both Eyes (10/29/2022 10:11 AM CDT) Anatomical Region Laterality Modality Head Optical Coherenc e Tomography Narrative 10/29/2022 10:11 AM CDT Right Eye Quality was good. Scan locations included subfoveal. Progression has improved. Findings include intraretinal fluid. Left Eye Quality was good. Scan locations included subfoveal. Progression has been stable. Findings include normal observations. Notes No ME OS us Jessy Adame MD OPHTH TOMOGRAPHY Edited Re sult - Final documented in this encounter Visit Diagnoses Diagnosis Cystoid macular edema of both eyes- Primary Cystoid macular degeneration of retina documented in this encounter Eye Exam Visual Acuity (Snellen - Linear) Right eye Left eye Dist sc 20/20 -2 20/20 -2 Tonometry #1 (Tonopen, 9:39 AM) Right eye Left eye Pressure 23 14 Tonometry #2 (Tonopen, 9:39 AM) Right eye Left eye Pressure 22 Pupils Dark Light Shape React APD Right eye 5 4 Round Brisk None Left eye 5 4 Round Brisk None Neuro/Psych Oriented x3: Yes Mood/Affect: Normal Dilation Both eyes: 1.0% Mydriacyl @ 9:39 AM External Exam Right eye Left eye External Normal Normal Slit Lamp Exam Right eye Left eye Lids/Lashes Normal Normal Conjunctiva/Sclera White and quiet White and gael et Cornea Clear Clear Anterior Chamber Deep and quiet Deep and quiet Iris Round and reactive Round and erasmo ctive Lens Posterior chamber in traocular lens Posterior chamber intraocular lens Fundus Exam Right eye Left eye Posterior Vitreous s/p ppV s/p PPV Disc Normal Normal C/D Ratio 0.3 0.3 Macula Normal Normal Vessels Normal Normal Periphery Cystoid macular edema attached Care Teams Work Study Student Relationship Specialty Start Date End Date Sylvia Dawson PA [address] [place] [address] PCP - General Internal Medicine 01/05/20 Erica Rodrigues MD [address] [facility] [address] [place] [address] Radiation Oncologist Radiation Oncology 10/25/18 Gasper Kaba MD [address] [facility] [address] [place] [address] Surgeon Surgical Oncology 10/25/18 Brandy Aguirre CNS [address] [place] [address] Nurse Practitioner Certified Clinical Nurse Specialist 10/25/18 Jo-Ann Morrow, PhD [address] [place] [address] Nurse Practitioner Radiation Oncology 10/25/18 Christina Louis, WINDOW SHADE ESTIMATOR [address] [place] [address] Nurse Practitioner Medical Oncology 10/25/18 documented as of this encounter
--- OUTSIDE RECORDS SUMMARY | 2024-04-24 05:50 | XMS_ITS | Encounter Summary ---
Author Organization [facility] Healthcare Address [address] [place] [address] Care Team Providers Care Coin Purse Framer Name Role Phone Erica Rodrigues MD Unavailable Gasper Kaba MD Unavailable Brandy Aguirre LOOKBACK COORDINATOR Unavailable [phone] Jo-Ann Morrow PhD Unavailable [phone] Christina Louis PLASTICS PRODUCTION MACHINE OPERATOR Unavailable [phone] Sylvia Dawson Primary Care Provider [phone] Encounter Details Date Type Department Care Team (Latest Contact Info) Description 08/06/2022 1:07 PM CDT - 08/06/2022 11:59 PM CDT Hospital Encounter [address] [id number] High risk medication use Discharge Disposition: Discharge to home or self care Social History Tobacco Use Types Packs/Day Years Used Date Smoking Tobacco: Never Passive Smoke Exposure: Never Smokeless Tobacco: Never Alcohol Use Standard Drinks/Week Comments Yes 1 (1 standard drink = 0.6 oz pur e alcohol) social AUDIT-C Answer Date Recorded Q1: How often do you have a drink containing alc ohol? Monthly or less 08/05/2022 Q2: How many drinks containi ng alcohol do you have on a typical day when you are drinking? 1 or 2 08/05/2022 Q3: How often do you have si x or more drinks on one occasion? 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 Gender Identity Not on file [...] by mouth daily as needed for heartburn multivitamin with minerals tabletIndications:V itamin Deficiency Prevention Take 1 tablet by mouth every morning vit I-L-cotemy-zinc-lut ein (PreserVision Lutein) 226-90-0.8-5 mg capsuleIndications: Eye support Take 1 tablet by mouth 2 (two) times a day atenoloL (TENORMIN) 25 mg tablet TAKE 1 TABLET(25 MG) BY MOUTH DAILY 90 tablet 1 2 09/17/19 23 butalbital-acetamin sytka-kspcseys-iodx ine (FIORICET WITH CODEINE) 61-208-14-30 mg per capsuleIndications: Tension-Type Headache Take 1 capsule by mouth every 4 (four) hours as needed for headaches 20 capsule 3 11/19/19 23 calcium carbonate/vitamin D3 (CALTRATE 600 PLUS D ORAL) Take 1 tablet by mouth every morning 08/30/19 23 ezetimibe (ZETIA) 10 mg tabletIndications:M ixed [...] by mouth daily 180 tablet 3 3 08/23/19 23 hydroCHLOROthiazide (HYDRODIURIL) 12.5 mg tablet TAKE 1 TABLET(12.5 MG) BY MOUTH DAILY 90 tablet 3 09/02/19 23 hydrOXYchloroQUINE (PLAQUENIL) 200 mg tablet TAKE 1 TABLET(200 MG) BY MOUTH DAILY 90 tablet 2 3 09/26/19 23 lisinopriL (PRINIVIL,ZESTRIL) 40 mg tabletIndications:H ypertension, essential Take 1 tablet (40 mg total) by mouth daily 90 tablet 4 3 07/23/19 24 methotrexate 2.5 mg tablet Take 8 tablets on 96 tablet 2 3 08/23/19 23 sulfaSALAzine EN (AZULFIDINE EN) 500 mg EC tablet TAKE 2 TABLETS(1000 MG) BY MOUTH TWICE DAILY 360 tablet 3 10/14/19 23 ticagrelor (BRILINTA) 60 mg tablet Take 1 tablet (60 mg total) by mouth 2 (two) times a day 60 tablet 3 3 09/26/19 23 turmeric root extract 500 mg capsule Take 500 mg by mouth every morning 08/30/19 23 valACYclovir (Valtrex) 500 mg tabletIndications:R ecurrent cold sores Take 1 tablet (500 mg total) by mouth daily 90 tablet 2 2 06/10/19 24 zinc 50 mg tablet Take 50 mg by mouth every morning 08/30/19 23 documented as of this encounter Discharge Disposition Disposition Code Departure Means Destination Discharge to home or self care documented in this encounter Plan of Treatment Not on file documented as of this encounter Procedures Procedure Name Priority Date/Time Associated Diagnosis Comments ERYTHROCYTE SEDIMENTATION RATE Routine 08/06/2022 1:07 PM CDT High risk medication use documented in this encounter Results * Erythrocyte sedimentation rate (08/06/2022 1:07 PM CDT) Erythrocyte sedimentation rate 15 1 - 30 mm/hr [facility] Blood 08/06/2022 1:07 PM CDT 08/06/2022 4:04 PM CDT us Patricia Martinez MD LAB BLOOD ORDERABLES Final R esult [facility] Department [place] [address] documented in this encounter Visit Diagnoses Diagnosis High risk medication use documented in this encounter Care Teams Coin Purse Framer Relationship Specialty Start Date End Date Sylvia Dawson PA [address] [facility] [address] [place] [address] PCP - General Internal Medicine 01/05/20 Erica Rodrigues MD [address] [facility] [address] [place] [address] Radiation Oncologist Radiation Oncology 10/25/18 Gasper Kaba MD [address] [facility] [address] [place] [address] Surgeon Surgical Oncology 10/25/18 Brandy Aguirre, LOOKBACK COORDINATOR [address] [facility] [address] [place] [address] Nurse Practitioner Certified Clinical Nurse Specialist 10/25/18 Jo-Ann Morrow, PhD [address] [facility] [address] [place] [address] Nurse Practitioner Radiation Oncology 10/25/18 Christina Louis, PLASTICS PRODUCTION MACHINE OPERATOR [address] [facility] [address] [place] [address] Nurse Practitioner Medical Oncology 10/25/18 documented as of this encounter
--- OUTSIDE RECORDS SUMMARY | 2024-04-24 05:50 | XMS_ITS | Encounter Summary ---
Author Organization [facility] Address [address] [place] [address] Phone Care Team Providers Care Beauty Consultant Name Role Phone Erica Rodrigues MD Unavailable Gasper Kaba MD Unavailable Brandy Aguirre EARTH MOVING TECHNICIAN Unavailable [phone] Jo-Ann Morrow PhD Unavailable [phone] Christina Louis PLAN NURSE Unavailable [phone] Sylvia Dawson Primary Care Provider [phone] Encounter Details Date Type Department Care Team (Late st Contact Info) Description 11/13/2022 Orders Only [facility] Rheumatology [address] [facility] Advanced Medicine 5th [place] [address] [place] [address] Ximena Ellison, A Social History Tobacco Use Types Packs/Day Years [...] on file 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 Gender Identity Not on file Sexual Orientation Not on file 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 Not on [...] documented as of this encounter Care Teams Beauty Consultant Relationship Specialty Start Date End Date Sylvia Dawson PA [address] [address] PCP - General Internal Medicine 01/05/20 Erica Rodrigues MD [address] [place] [address] Radiation Oncologist Radiation Oncology 10/25/18 Gasper Kaba MD [address] [place] [address] Surgeon Surgical Oncology 10/25/18 Brandy Aguirre CNS [address] [place] [address] Nurse Practitioner Certified Clinical Nurse Specialist 10/25/18 Jo-Ann Morrow, PhD [address] [place] [address] Nurse Practitioner Radiation Oncology 10/25/18 Christina Louis NP [address] [facility] [address] [place] [address] Nurse Practitioner Medical Oncology 10/25/18 documented as of this encounter
--- OUTSIDE RECORDS SUMMARY | 2024-04-24 05:50 | XMS_ITS | Encounter Summary ---
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 [H35.353] Procedures [place] VITRECTOMY MECHANICAL PARS PLANA VITRECTOMY - 25 GAUGE Referral ID Status Reason Start Date Expiration Date Visits Re quested Visits Authorized [id number] 1 1 Encounter Details Date Type Department Care Team (Late st Contact Info) Description 09/23/2022 1:30 PM CDT - 09/23/2022 2:30 PM CDT Surgery [facility] Operating [facility] [address] [place] [address] Jessy Adame MD [phone] [id number] VITRECTOMY - 25 GAUGE Surgery Details Date/Time Status Location OR Service Patient Class Case Cl ass Case Type Trauma Case? 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 Not on file Not on file Not on file documented as of this encounter Last Filed Vital Signs Vital Sign Reading Time Taken Comments Blood Pressure 122/77 09/23/2022 2:10 PM CDT Pulse 59 09/23/2022 2:10 PM CDT Temperature 36.4 ??C (97.5 ??F) 09/23/2022 12:00 PM C DT Respiratory Rate 15 09/23/2022 2:10 PM CDT Oxygen Saturation 100% 09/23/2022 2:10 PM CDT Inhaled Oxygen Concentration - - Weight 62.6 kg (138 lb) 09/23/2022 12:00 PM CDT Height 160 cm (5' 3 ) 09/23/2022 12:00 PM CDT Body Mass Index 24.45 09/23/2022 12:00 PM CDT documented in this encounter Medications at Time [...] 1 tablet by mouth every morning vit S-G-ysrbox-zinc-lut ein (PreserVision Lutein) 226-90-0.8-5 mg capsuleIndications: Eye support Take 1 tablet by mouth 2 (two) times a day atenoloL (TENORMIN) 25 mg tablet TAKE 1 TABLET(25 MG) BY MOUTH DAILY 90 tablet 1 3 03/19/20 23 butalbital-acetamin zzzcw-wsoiqfmd-xllv ine (FIORICET WITH CODEINE) 38-208-00-30 mg per capsuleIndications: Tension-Type Headache Take 1 capsule by mouth every 4 (four) hours as needed for headaches 20 capsule 3 11/19/19 23 ezetimibe (ZETIA) 10 mg tabletIndications:M ixed [...] DAILY 90 tablet 1 3 03/19/20 23 hydrOXYchloroQUINE (PLAQUENIL) 200 mg tablet TAKE 1 TABLET(200 MG) BY MOUTH DAILY 90 tablet 2 3 09/26/19 23 lisinopriL (PRINIVIL,ZESTRIL) 40 mg tabletIndications:H ypertension, essential Take 1 tablet (40 mg total) by mouth daily 90 tablet 4 3 07/23/19 24 methotrexate 2.5 mg tabletIndications:a utoimmune disease Take 8 tablets on 96 tablet 2 3 05/14/19 24 prednisoLONE acetate (PRED FORTE) 1 % ophthalmic suspensionIndicatio ns:Cystoid macular edema of both eyes One drop. 4x/day for 1 week, 3x/day for 1 week, 2x/day for 1 week, 1x/day for week, then stop. Right Eye. 10 mL 11 3 09/30/19 23 sulfaSALAzine EN (AZULFIDINE EN) 500 mg EC tablet TAKE 2 TABLETS(1000 MG) BY MOUTH TWICE DAILY 360 tablet 3 10/14/19 23 ticagrelor (BRILINTA) 60 mg tablet Take 1 tablet (60 mg total) by mouth 2 (two) times a day 60 tablet 3 3 09/26/19 23 tobramycin (TOBREX) 0.3 % ophthalmic solutionIndications :Cystoid macular edema of both eyes One drop to Right eye 4 times per day 5 mL 2 3 09/30/19 23 valACYclovir (Valtrex) 500 mg tabletIndications:R ecurrent cold sores Take 1 tablet (500 mg total) by mouth daily 90 tablet 2 2 06/10/19 24 documented as of this encounter Ordered Prescriptions Prescription Sig Dispense Quantity Refills Last Filled Start Date End Date tobramycin (TOBREX) 0.3 % ophthalmic solutionIndications :Cystoid macular edema of both eyes One drop to Right eye 4 times per day 5 mL 2 09/24/2022 09/29/2022 prednisoLONE acetate (PRED FORTE) 1 % ophthalmic suspensionIndicatio ns:Cystoid macular edema of both eyes One drop. 4x/day for 1 week, 3x/day for 1 week, 2x/day for 1 week, 1x/day for week, then stop. Right Eye. 10 mL 11 09/24/2022 09/29/2022 documented in this encounter Discharge Disposition Disposition Code Departure Means Destination Comment s Discharge to home or self care documented in this encounter H&P Notes * Jessy Adame MD - 09/23/2022 12:57 PM CDT I have reviewed the H&P, examined the patient, and endorse the findings as written. Plan of Care : Based on the above findings, I consider Yesika Denney to be an acceptable risk for : Procedure(s): VITRECTOMY - 25 GAUGE Right eye Risks, benefits and alternatives for surgery include by not limited to infection, bleeding, damage to the eye, loss of vision, loss of the eye,deformity, diplopia, increased IOP, cataract, need for new refraction, RD, RT, gas injection, post op positioning, altitude precautions, silicone oil placement, need for additional surgery, inflammation to one or both eyes, no guarantees were made, and theguarded prognosis was discussed with the patient. Reviewed with them that is a teaching institution and that trainees, medical students, residents, fellows may be involved in their care and may bepreforming parts of the procedure, however an attending doctor would be present to assure everything went as well as possible.They understand and wish to proceed. Source Note - Fadi Mckeon MD - 09/02/2022 11:48 AM CDT Images from the original note were not included. [facility] Preoperative Assessment and Planning Preoperative Evaluation Record Evaluation type/location: TPAP from [facility] Planned procedure site: [facility] OR (Pod 4) Date: 09/02/22 NOTE: This note represents a preoperative evaluation initiated via telephone interview. NO PHYSICALEXAM was performed at the time of initial assessment. A physical exam may be added to this note anddocumented below. Anesthesia Evaluation Yesika Denney is a 62 y.o. female Procedure(s): VITRECTOMY - 25 GAUGE Pre-Op Diagnosis Codes: * Cystoid macular edema of both eyes [H35.353] HISTORY HPI Yesika Denney is a 61 y.o. female with history of anterior communicating artery aneurysm, bilateral carotid artery dissections s/p carotid [id number] and web device placement in 06/2022 now undergoing right eye vitrectomy. Past Medical History Information obtained from: patient and chart. Neurological + Carotid artery stent - bilateral carotid. Date of last carotid artery stent: 04/09/22. 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 + Hyperlipidemia + Systolic or diastolic dysfunction w/o CHF Diastolic dysfunction w/o CHF. Diastolic function: stage I - impaired relaxation LVEF: 60-70%. + Other arrhythmia (Ectopic atrial tachycardia) - sinus tachycardia. Pertinent negatives: CAD ; HI ; CABG ; valvular heart disease; valve replacement; atrial fibrillation; pacemaker/ICD; PVD; DVT/PE; negative for CHF; drug-eluting stent(s); bare metal stent(s) and coronary angioplasty Comments: Veneer Cutter Dr. De León, last OVN 04/17/22 Respiratory + Sleep apnea (JOSE) (recently diagnosed) Prescribed device: PAP compliant and CPAP. Pertinent negatives: COPD; asthma; pulmonary hypertension; no O2 use outside the hospital and non-smoker Hepatic / Heme Pertinent negatives: liver disease; history of anemia; history of thrombocytopenia and history of Tamiko positive Gastrointestinal Pertinent negatives: GERD and hiatal hernia Renal / Pertinent negatives: renal disease; dialysis and nephrolithiasis Musculoskeletal/Pain + Headaches - migraine headaches. Pertinent negatives: chronic pain; chronic opioid use and previous treatment for opioid use disorder Endocrine / Other + Cancer history- in remission. Cancer type: breast; chemo-03/2015, radiation-12/2014. + Rheumatological disease (Rx methotrexate, plaquenil, sulfasalazine) - rheumatoid arthritis and Raynaud's phenomenon. + Infectious disease (hospitalized for COVID & PNA in 2020) - pneumonia. Pertinent negatives: diabetes mellitus; thyroid disease (s/p partial thyroidectomy); obesity (BMI >30) and transplanted organ Comments: [facility] rheumatology [facility] 03/2022 Functional Capacity Functional capacity: 4-6 METs Comments: Patient would be able to walk up 2 flight of stairs at moderate pace without SOB or CP. Patient would be able to walk 3-4 city blocks at moderate pace without SOB or CP. Review of Systems + easy bruising (no excessive bleeding, on ASA and brillinta) + numbness/tingling (intermitent parasthesia bilat hands 2/2 raynauds, chronic) + vision loss (readers) Pertinent negatives: productive cough; wheezing; SOB; recent cold/flu; fever; chest pain; palpitations; orthopnea; pedal edema; PND; Sickle Cell disease/trait; previous transfusion; transfusion reaction; melena/hematochezia; bleeding problems; syncope; dizziness; muscle weakness; chronic pain; hardof hearing; heartburn; nausea; dysphagia; diarrhea; dentures/partials; chipped/loose teeth; abdominal pain; diaphoresis and no unexpected weight change Comments: Patient denies any S/S of UTI. PAT Summary and Plans Cardiac risk classification of planned procedure: low cardiac risk. Preoperative assessment status: complete. Additional comments: Yesika Denney is a 62 y.o. female who is being evaluated prior to undergoing a low cardiac risk surgery. Revised Cardiac Risk Index factors are (history of cerebrovascular disease) for a total RCRI of 1 out of 6. Functional capacity is 4-6 METs. PRELIMINARY Obstructive sleep apnea (JOSE) screening status is HIGH RISK due to known JOSE. Full JOSE screening deferred until DOS due to TPAP. Blood bank needs for day of procedure: No type and screen needed Pending labs/tests include: no labs indicated (CMP and CBC reviewed from 08/06/22 without significant findings) DOS: none This assessment was performed via telephone. Therefore the physical exam has been deferred to the day of surgery team. The patient was provided with preoperative instructions for their medications. The patient was instructed to shower/bathe the night prior and the morning of the planned procedure using an antibacterial soap. Patient instructions were provided electronically sent via [employer]. Patient verbalized understanding of preoperative plan. + per 's most recent not patient will be off her Ticagrelor by the time of this procedure. If she is still taking I instructed patient to continue taking and not stop her Ophthalmology Anticoagulation Protocol. Per the Ophthalmology Anticoagulation Protocol, patient is able to continue aspirin throughout the perioperative period. Preoperative evaluation performed by Jimena Green NP on 09/02/22 at 4:31 PM. TPAP assessment complete . Patient Active Problem List Diagnosis ??? Cerebral [...] ??? Lumbar back pain ??? Atrial tachycardia (CMS/HCC) (HCC) ??? History of COVID-19 ??? Hypertension, essential ??? Tachycardia ??? Cough ??? Fatigue ??? Moderate episode of recurrent major depressive disorder (HCC) ??? Breast mass ??? Pain in both feet ??? Cystoid macular edema of both eyes ??? PCO (posterior capsule opacification), bilateral ??? Pattern dystrophy of macula ??? Bronchiolitis ??? Flu vaccine need ??? Need for Tdap vaccination ??? Daytime sleepiness ??? Annual physical exam ??? Recurrent cold sores ??? Hyperglycemia ??? Aneurysm (CMS/HCC) (HCC) ??? BMI 24.0-24.9, adult ??? History of right common carotid artery stent placement ??? Chronic tension-type headache, not intractable ??? Brain aneurysm ??? Obstructive sleep apnea Past Medical History: Diagnosis Date ??? Autoimmune disease (CMS/HCC) (HCC) ??? Benign left breast lump 06/2002 biopsy showed fibrosis and hyperplasia ??? Brain aneurysm Followed by Dr. Chaudhari: Every 3 years ??? Breast cancer (HCC) 2014 Invasive ductal carcinoma ??? Cataract ??? Depression ??? Elevated cholesterol ??? History of chemotherapy 2015 Breast cancer ??? History of radiation therapy 2015 Right breast ??? Hypertension ??? Migraine ??? Motion sickness sometimes on [place] roads ??? Obstructive sleep apnea 06/19/2022 ??? RA (rheumatoid arthritis) (HCC) Past Surgical History: Procedure Laterality Date ??? ANGIO SELECTIVE INTERNAL CAROTID LEFT Left 03/12/2022 ??? BREAST BIOPSY Left 2002 benign ??? BREAST LUMPECTOMY Right 2014 Invasive ductal carcinoma ??? CEREBRAL ANEURYSM REPAIR 06/16/2022 ??? COLONOSCOPY 03/06/2020 ??? CYST REMOVAL ??? ENDOMETRIAL ABLATION 02/2007 ??? EYE SURGERY ??? HYSTEROSCOPY ? ? PORT PLACEMENT CHEST >5 YEARS N/A 01/17/2015 ??? PORT REMOVAL N/A 04/10/2015 ??? RHINOPLASTY 1984 ??? THYROIDECTOMY, PARTIAL Left 1997 Dr. Demetris Aguilar ??? TONSILLECTOMY 1982 ??? 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 No history fertility medications. She used oral contraceptives in the past. One does progesterone 08/2014. She experienced menopause approximately age 53. Allergies Allergen Reactions ??? Adhesive Hives Paper tape OK ??? Cyclizine Other (See comments) and Hallucinations Marezine about 1981 Reaction: Urinary retention Med List Status: Nurse Complete Set By: Jennyfer Arias RN at 08/29/2022 1:28 PM Taking? Last Dose Start Date End Date Provider acetaminophen (TYLENOL) 325 mg tablet -- 04/10/22 -- Asha Hines NP Take 2 [...] period. aspirin 81 mg enteric coated tablet 08/29/2022 05/28/22 -- Abdiaziz Moss MD Take 1 tablet (81 mg total) by mouth daily Patient taking differently: Take 1 tablet (81 mg total) by mouth every morning 06/2022 brain aneurysm atenoloL (TENORMIN) 25 mg tablet 08/29/2022 03/10/22 -- Harpal De León MD TAKE 1 TABLET(25 MG) BY MOUTH DAILY Patient taking differently: Take 1 tablet (25 mg total) by mouth every morning tachycardia kubemetckh-kmddkjredgkyp-rrrrdukn-codeine (FIORICET WITH CODEINE) 33-127-85-30 mg per capsule -- 04/15/22 -- Sylvia Dawson PA Take 1 capsule by mouth every 4 (four) hours as needed for headaches ezetimibe (ZETIA) 10 mg tablet 08/15/2022 08/06/22 08/06/23 Nazia Ventura MD Take 1 tablet (10 mg total) by mouth daily Patient taking differently: Take 1 tablet (10 mg total) by mouth every morning famotidine-Ca carb-mag hydrox (PEPCID COMPLETE) 10-800-165 mg chewable tablet -- -- -- ProviderRonda MD FLUoxetine (PROzac) 20 mg capsule 08/29/2022 02/27/22 -- Sylvia Dawson PA Take 1 capsule (20 mg total) by mouth 2 (two) times a day folic acid (FOLVITE) 1 mg tablet 08/29/2022 08/22/22 -- Patricia Martinez MD Take 2 tablets (2,000 mcg total) by mouth daily Patient taking differently: Take 2 tablets (2,000 mcg total) by mouth every morning hydroCHLOROthiazide (HYDRODIURIL) 12.5 mg tablet -- 09/01/22 -- Sylvia Dawson PA TAKE 1 TABLET(12.5 MG) BY MOUTH DAILY hydrOXYchloroQUINE (PLAQUENIL) 200 mg tablet 08/29/2022 07/02/22 -- Patricia Martinez MD TAKE 1 TABLET(200 MG) BY MOUTH DAILY Patient taking differently: Take 1 tablet (200 mg total) by mouth every morning lisinopriL (PRINIVIL,ZESTRIL) 40 mg tablet 08/29/2022 07/17/22 -- Sylvia Dawson PA Take 1 tablet (40 mg total) by mouth daily Patient taking differently: Take 1 tablet (40 mg total) by mouth every morning Notes: Please cancel Rx for 20mg to avoid duplicate therapy magnesium gluconate 200 mg tablet 08/28/2022 -- -- Ronda Ruano MD methotrexate 2.5 mg tablet 08/28/2022 08/22/22 -- Patricia Martinez MD Take 8 tablets on Patient taking differently: Take by mouth every 7 days Take 8 tablets on multivitamin with minerals tablet 08/29/2022 -- -- Ronda Ruano MD sulfaSALAzine EN (AZULFIDINE EN) 500 mg EC tablet 08/29/2022 07/13/22 -- Patricia Martinez MD TAKE 2 TABLETS(1000 MG) BY MOUTH TWICE DAILY Patient taking differently: Take 2 tablets (1,000 mg total) by mouth every morning ticagrelor (BRILINTA) 60 mg tablet 08/29/2022 05/27/22 -- Abdiaziz Moss MD Take 1 tablet (60 mg total) by mouth 2 (two) times a day Patient taking differently: Take 1 tablet (60 mg total) by mouth 2 (two) times a day valACYclovir (Valtrex) 500 mg tablet 08/29/2022 02/27/22 -- Sylvia Dawson PA Take 1 tablet (500 mg total) by mouth daily Patient taking differently: Take 1 tablet (500 mg total) by mouth every morning vit U-Q-poybom-zinc-lutein (PreserVision Lutein) 226-90-0.8-5 mg capsule -- -- -- Ronda Ruano MD No current facility-administered medications for this encounter. Current Outpatient Medications: ??? acetaminophen (TYLENOL) 325 mg tablet ??? aspirin 81 mg enteric coated tablet ??? atenoloL (TENORMIN) 25 mg tablet ??? cxqrtqdsdf-vzygoqbzbysih-mkvqpdsr-codeine (FIORICET WITH CODEINE) 54-755-71-30 mg per capsule ??? famotidine-Ca carb-mag hydrox (PEPCID COMPLETE) 10-800-165 mg chewable tablet ??? FLUoxetine (PROzac) 20 mg capsule ??? folic acid (FOLVITE) 1 mg tablet ??? hydrOXYchloroQUINE (PLAQUENIL) 200 mg tablet ??? lisinopriL (PRINIVIL,ZESTRIL) 40 mg tablet ??? magnesium gluconate 200 mg tablet ??? methotrexate 2.5 mg tablet ??? multivitamin with minerals tablet ??? sulfaSALAzine EN (AZULFIDINE EN) 500 mg EC tablet ??? ticagrelor (BRILINTA) 60 mg tablet ??? valACYclovir (Valtrex) 500 mg tablet ??? vit C-B-cuazkm-zinc-lutein (PreserVision Lutein) 226-90-0.8-5 mg capsule ??? ezetimibe (ZETIA) 10 mg tablet ??? hydroCHLOROthiazide (HYDRODIURIL) 12.5 mg tablet Social History Tobacco Use Smoking Status Never ??? Passive exposure: Never Smokeless Tobacco Never Vaping Use ??? Vaping Use: Never used Alcohol Use: Not At Risk (08/05/2022) AUDIT-C ??? Frequency of Alcohol Consumption: Monthly or less ??? Average Number of Drinks: 1 or 2 ??? Frequency of Binge Drinking: Never Substance and Sexual Activity Drug Use Yes ??? Types: Alcohol Comment: 2 drinks per month Family History [...] Neg Hx ??? Pseudochol deficiency Neg Hx There were no vitals filed for this visit. Relevant diagnostics: ECG(s): 03/28/20 ?? Echocardiogram(s): TTE Conclusions: Normal left ventricular systolic function. No focal wall motion abnormalities. Normal left ventricular size. Impaired diastolic relaxation Grade I. Ejection fraction is measured at 62 %. Trivial mitral, tricuspid and pulmonic regurgitation. Compared with 2019: no change. ?? Stress test(s): N/A ?? Cardiac catheterization(s): N/A ?? PFT(s): 12/09/21 ?? IMPRESSION: 1. ??Normal pulmonary function test 2. ??Ambulatory oximetry was performed. ??At this level of activity the patient did not require supplemental oxygen to maintain saturations greater than 88% ? Vascular studies: N/A ?? Other: IR placement carotid stent 04/09/22: IMPRESSION: 1. Initial angiography demonstrated a right internal carotid artery dissection with severe stenosis and a pseudoaneurysm. ??The anterior communicating artery aneurysm was seen but not fully characterized on the current exam. ?? 2. Successful flow diversion of the right internal carotid artery dissection with a surpass streamline flow diverter. ?? 3. Prior to planned treatment of the anterior communicating artery aneurysm a dissection was noted in the distal left cervical internal carotid artery. ??The dissection may be iatrogenic or previously present and exacerbated by manipulation. ??The decision was made to place a LVIS stent across the dissection and delay the planned treatment of the anterior communicating artery aneurysm. ?? 3. Final angiography demonstrated widely patent endovascular stents in the bilateral cervical internal carotid arteries. ??There are no distal thromboembolic complications ?? PLAN: - Continue aspirin 325 mg and Plavix 75 mg - Observation overnight and possible discharge following day with the plan for a later return and treatment of the anterior communicating artery aneurysm. ? 03/20/22 CTA head/neck IMPRESSION: 1. No acute intracranial process. 2. Short segment dissection of the distal cervical right internal carotid artery, with an area of severe focal narrowing described above. 3. 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 ?? 04/10/22 MRA head w wo con IMPRESSION: ?? 1. ??No acute intracranial process. 2. ??Superiorly directed anterior communicating artery aneurysm, measuring 5 mm, unchanged. ?? 03/31/20 30 day monitor Cardiologis Review of Transmissions: Normal sinus rhythm with sinus bradycardia and sinus tachycardia, average HR 66 bpm, range 48-123 bpm. ?? Rare isolated VPDs. Rare isolated APDs with one atrial couplet. The patient pressed the event buttion of 47 occasions. Symptoms included flutter/skipped beats, dizziness/lightheadedness, fatigue, and, on one occasion passed out . ??These events generally correleated with isolated VPDs or, less commonly, APDs or an atrial couplet. ??The passed out event correlated with sinus rhythm at 66 bpm and an isolated VPD. ?? The full scanned/data report is available in [employer]. labeled MONITOR STRIPS PDF . PT: No results found for requested labs within last 30 days. INR: No results found for requested labs within last 30 days. APTT: No results found for requested labs within last 30 days. Hgb A1C: No results found for requested labs within last 30 days. CBC RBC: 08/06/2022: 4.05 M/uL RDW: 08/06/2022: 14.3 % MCHC: 08/06/2022: 32.8 g/dL MCH: 08/06/2022: 33.2 pg MCV: 08/06/2022: 101.4 fL (H) Hct: 08/06/2022: 41.0 % Hgb: 08/06/2022: 13.4 g/dL WBC: 08/06/2022: 3.9 K/uL MPV: 08/06/2022: 8.9 fL Platelets: No results found for requested labs within last 30 days. RDW CV: No results found for requested labs within last 30 days. RDW Sd: No results found for requested labs within last 30 days. BMP Glucose: 08/06/2022: 78 mg/dL Calcium: 08/06/2022: 9.5 mg/dL Sodium: No results found for requested labs within last 30 days. Potassium: No results found for requested labs within last 30 days. CO2: 08/06/2022: 25 mmol/L Chloride: No results found for requested labs within last 30 days. BUN: No results found for requested labs within last 30 days. Creatinine: 08/06/2022: 0.69 mg/dL Chelsea index score: 100 DOS Physical Exam Medical history, medications, and allergies reviewed. Attestation: I endorse the findings of the anesthesia pre-evaluation assessment dated: 09/02/2022. Airway Exam: Mallampati: I Cervical ROM: FROM TM distance: normal Cardiovascular Exam: Rate: regular Rhythm: regular Pulmonary Exam: LCTA, bilat EENT Exam: trachea midline Dental Exam: Appears intact Skin Exam: Skin is warm. Turgor is normal. Abdominal Exam: Abdomen is soft. Current state: Patient's current state is cooperative and interactive. documented in this encounter Miscellaneous Notes * Perioperative Nursing Note - Olga Lorenzo RN - 09/23/2022 1:26 PM CDT Unoperative eye covered with Montalvo shield Nevyas disposable drape retractor applied prior to start of procedure * Op Note - Jessy Adame MD - 09/23/2022 1:19 PM CDT Risks, benefits and alternatives for surgery include by not limited to infection, bleeding, damage to the eye, loss of vision, loss of the eye,deformity, diplopia, increased IOP, cataract, need for new refraction, RD, RT, gas injection, post op positioning, altitude precautions, silicone oil placement, need for additional surgery, inflammation to one or both eyes, no guarantees were made, and theguarded prognosis was discussed with the patient. 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 They understand and wish to proceed. Patient was brought to the operating suite where monitored anesthesia care was initiated. They received peribulbar anesthesia to the right eye. The right eye was prepped and draped in normal sterile fashion. A lid speculum was used to hold the eyelids in place. Using 25 gauge trocars incisions werefashioned 3.5 mm posterior to the limbus in the supratemporal, supranasal and inferotemporal quadrants. The infusion line was hooked up inferotemporally was viewed through the pupil found to be in the vitreous cavity, not in the subretinal space. At this point the infusion was turned on. Through the remaining superior trocars a complete vitrectomy was performed.The posterior hyaloid was detached,it was elevated and dissected the vitreous base using depressed techniques with the aid of skilled assistant manager pt. There appeared to be some posterior capsular opacity, this was cleared using the vitrector as well. The peripheral retina was inspected, no tears or detachment retina were seen, an air-fluid exchange was performed. The trocars removed. The wounds were found to be nonleaking. The pressure was checked with at [place] tonometer and found to be 15 and holding good pressure. The TobraDex soaked shield was placed over the eye. Lid speculum was removed, a patch was placed over the eye and theywere aroused from anesthesia care and left the operative suite in good in good condition. They willbe asked to maintain a p.r.n. position, and re-evaluated tomorrow. 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 Estimated Blood Loss: 0 mL Intraoperative Fluids: 300 mls Specimens: No specimen collected in procedure Implants: Nothing was implanted during the procedure Blood/Blood Products Transfused: 0 mls Complications: None Condition on Discharge from the operating room was stable Jessy Adame MD Date: 09/23/2022 Time: 1:35 PM TEACHING ATTESTATION : I was present and directly participated in the entire procedure (including opening and closing). * Pre-Procedure Instructions - Jimena Green NP - 09/02/2022 11:50 AM CDT [facility] Location: [facility] The night before your surgery: * Do [...] rinse your mouth out. * Do not glue your dentures. * Do not wear jewelry, body piercings, makeup, hairpins, false eyelashes or contact lenses to the hospital. * Leave any valuables at home or with your family. * If you have an implantable device with a remote, bring the remote with you on the day of surgery. * If you use home oxygen, bring your portable oxygen tank with you on the day of surgery Outpatient Surgery: * You must have a [...] needed aspirin 81 mg enteric coated tablet Take morning of surgery atenoloL (TENORMIN) 25 mg tablet Take morning of surgery lgpnkmouef-wicsicijnivbv-sxfgzofc-codeine (FIORICET WITH CODEINE) 94-319-54-30 mg per capsule Take on day of surgery if needed famotidine-Ca carb-mag hydrox (PEPCID COMPLETE) 10-800-165 mg chewable tablet Take morning of surgery FLUoxetine (PROzac) 20 mg capsule Take morning of surgery folic acid (FOLVITE) 1 mg tablet Don't take on day of surgery hydrOXYchloroQUINE (PLAQUENIL) 200 mg tablet Take morning of surgery lisinopriL (PRINIVIL,ZESTRIL) 40 mg tablet Take morning of surgery magnesium gluconate 200 mg tablet Don't take on day of surgery methotrexate 2.5 mg tablet Take medication as prescribed multivitamin with minerals tablet Don't take on day of surgery sulfaSALAzine EN (AZULFIDINE EN) 500 mg EC tablet Take morning of surgery ticagrelor (BRILINTA) 60 mg tablet Take morning of surgery valACYclovir (Valtrex) 500 mg tablet Take on day of surgery if needed vit D-L-yaniiw-zinc-lutein (PreserVision Lutein) 226-90-0.8-5 mg capsule Don't take on day of surgery ezetimibe (ZETIA) 10 mg tablet Take medication as prescribed hydroCHLOROthiazide (HYDRODIURIL) 12.5 mg tablet Don't take on day of surgery General Instructions For Medications: For medications that you are instructed to take on the morning of surgery, take the medications with a few sips of water. Stop all of these medications 7-14 days prior to your surgery: Vitamin E, Herbal medicines, Diet Pills If you take aspirin, do not stop taking it unless you were instructed to do so. If you have pain, you may take [...] with COVID-19. You test positive for COVID-19. * Perioperative Nursing Note - Jennyfer Arias RN - 08/29/2022 1:38 PM CDT [facility] Perioperative Nursing Note Telephone Preoperative Evaluation ([facility]) - TELEPHONE ONLY, NO PHYSICAL EXAM Date: 08/29/22 There were no vitals filed for this visit. 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: 5'3 inches 63 kgs Social History Tobacco Use Smoking Status Never Passive exposure: Never Smokeless Tobacco Never Vaping Use Vaping Status Never Used Substance and Sexual Activity Drug Use Yes Types: Alcohol Comment: 2 drinks per month Outpatient Medications Marked as Taking for the 09/23/22 encounter (Hospital Encounter) Medication Sig Dispense Refill [...] total) by mouth every morning 06/2022 brain aneurysm) 90 tablet 3 atenoloL (TENORMIN) 25 mg tablet TAKE 1 TABLET(25 MG) BY MOUTH DAILY (Patient taking differently: Take 1 tablet (25 mg total) by mouth every morning tachycardia) 90 tablet 1 xtbcnlnabz-xmacxhlidfxox-wacjibix-codeine (FIORICET WITH CODEINE) 94-330-25-30 mg per capsule Take 1 capsule by mouth every 4 (four) hours as needed for headaches 20 capsule 0 famotidine-Ca carb-mag hydrox (PEPCID COMPLETE) 10-800-165 mg chewable tablet Take 1 tablet by mouth daily as needed for heartburn FLUoxetine (PROzac) 20 mg capsule Take 1 capsule (20 mg total) by mouth 2 (two) times a day 180 capsule 1 folic acid (FOLVITE) 1 mg tablet Take 2 tablets (2,000 mcg total) by mouth daily (Patient taking differently: Take 2 tablets (2,000 mcg total) by mouth every morning) 180 tablet 3 hydroCHLOROthiazide (HYDRODIURIL) 12.5 mg tablet TAKE 1 TABLET(12.5 MG) BY MOUTH DAILY (Patient taking differently: Take 1 tablet (12.5 mg total) by mouth daily as needed (edema and swelling)) 90 tablet 0 hydrOXYchloroQUINE (PLAQUENIL) 200 mg tablet TAKE 1 TABLET(200 MG) BY MOUTH DAILY (Patient taking differently: Take 1 tablet (200 mg total) by mouth every morning) 90 tablet 2 lisinopriL (PRINIVIL,ZESTRIL) 40 mg tablet Take 1 tablet (40 mg total) by mouth daily (Patient taking differently: Take 1 tablet (40 mg total) by mouth every morning) 90 tablet 4 magnesium gluconate 200 mg tablet Take 1 tablet (200 mg total) by mouth nightly sleep methotrexate 2.5 mg tablet Take 8 tablets on (Patient taking differently: Take by mouth every 7 days Take 8 tablets on ) 96 tablet 2 multivitamin with minerals tablet Take 1 tablet by mouth every morning sulfaSALAzine EN (AZULFIDINE EN) 500 mg EC tablet TAKE 2 TABLETS(1000 MG) BY MOUTH TWICE DAILY (Patient taking differently: Take 2 tablets (1,000 mg total) by mouth every morning) 360 tablet 0 ticagrelor (BRILINTA) 60 mg tablet Take 1 tablet (60 mg total) by mouth 2 (two) times a day (Patient taking differently: Take 1 tablet (60 mg total) by mouth 2 (two) times a day) 60 tablet 3 valACYclovir (Valtrex) 500 mg tablet Take 1 tablet (500 mg total) by mouth daily (Patient taking differently: Take 1 tablet (500 mg total) by mouth every morning) 90 tablet 2 vit Z-Q-nsjhsq-zinc-lutein (PreserVision Lutein) 226-90-0.8-5 mg capsule Take 1 tablet by mouth 2 (two) times a day Implants Stent Surpass Streamline Flow Diverter - Implanted (Right) Carotid Forming Yardage Control Operator: [employer] Neurovascular Lot number: [id number] Size: 5MM X 50MM Device identifier: [id number] Device identifier type: GS1 As of 04/09/2022 Status: Implanted Lvis Intrluminal Support Device - Implanted (Left) Carotid Forming Yardage Control Operator: [employer] Lot number: [id number] Size: 5.5MM X 33MM As of 04/09/2022 Status: Implanted Vascular Closure Device Angio-Seal Vip Vascular Closure Device - Implanted (Right) Femoral Forming Yardage Control Operator: [employer] Lot number: [id number] As of 04/09/2022 Status: Implanted Type Not Specified [employer] Web Sl 5mm 3mm Device Embolization W5-5-3 - [id number] - Implanted (Left) Inventory item: [employer] WEB SL 5MM 3MM DEVICE EMBOLIZATION W5-5-3 Model/Cat number: W5-5-3 Forming Yardage Control Operator: [employer] Lot number: [id number] As of 06/16/2022 Status: Implanted [employer] Angio-Seal Vip 6fr Closere Device [id number] - [id number] - Implanted (Right) Inventory item: [employer] ANGIO-SEAL VIP 6FR CLOSERE DEVICE [id number] Model/Cat number: [id number] Forming Yardage Control Operator: [employer] Lot number: [id number] As of 06/16/2022 Status: Implanted SKIN Piercings Remaining: No Wound (LDAs) Type of Wound (LDA): (none) SCREENINGS [place] index score: 100 PATIENT CARE PLANNING Advance Directives (For Healthcare) Have you reviewed your Advance Directive and is it valid for this stay?: Yes Advance Directive: Patient has advance directive, copy not in chart Advance Directive not in Chart: Copy requested from family Information Provided on Healthcare Directives: No Assistive Devices/DME: Eyeglasses Discharge Planning Type of Residence: Private residence Living Arrangements: Spouse/significant other Support Systems: Spouse/significant other Assistance Needed: husnad to be dirver post op Patient expects to be discharged to:: Private residence BATCH MIXER NO ADDITIONAL COMMENTS/ FOLLOW UP * Pre-Procedure Instructions - Jennyfer Arias RN - 08/29/2022 1:36 PM CDT [facility] ([facility]) [...] remove nail coverings, artificial nails and nail egyptian prior to the day of surgery. You should leave your valuables and any jewelry at home. No metal or piercings are allowed in the operating room. You should bring your insurance card, a photo ID (example: [employer]'s License) and a method of payment for [...] Chart. If you are having surgery at [facility], please arrive on the day of [...] able to obtain your prescriptions that evening. Eye Surgery Process for Patients: Before the surgery, you will be asked to change into a gown. As you get ready for your surgery, your nurse will ask you questions about your medical history andreview your medications with you. An IV will be placed so that we may administer medication to keep you comfortable. You will meet your surgical team. You will be taken by stretcher to the operating room for your surgery. After your surgery, you will come to the recovery area. A Fall Risk band will be placed on your arm to remind you that you are at higher risk for falling after having eye surgery. You may remove this band after 24 hours. Before you leave, your discharge team will review your medications with you and any special instructions. A Guide for Patients Having Surgery: Your [...] bathing instructions, please follow your surgeon's orders. Normal Bathing: Bathe with regular soap the night before and/or day of surgery. Normal Bathing Protocol Bathe with your normal soap the night before and/or the morning of surgery. Wear clean clothes or pajamas to sleep in. After showering DO NOT put on deodorant, hair products, conditioners, lotions, creams, powders, Vaseline or any non-essential products. Remove nail coverings, artificial nails and nail egyptian. Place clean linens on your bed the night before surgery. Shaving: You may shave your face, legs and underarms during your evening shower. Avoid shaving on the day of surgery. Travel/Exp osure Screening: Travel Screening Have you traveled outside the [place] in the last 6 months?: No Exposure Screening Have you been exposed to anyone who is sick in the last 30 days?: Yes ( with Covid 08/19/2022) Have you been exposed to or tested [...] questions, please call the CPAP Staff at [phone], Thursday-Thursday 8am-4:30pm. All patients should read the below section: All visitors/patients are being asked to wear a clean face mask when entering the hospital. COVID 19 Updates & Visitor Policy: Please access [email or web address] for the most updated information. Information on [facility] the [facility]: Please view [email or web address] (Patient & Visitor Information) for additional details regarding Advanced Directive forms, AWARE, directions, parking information, lodging, Internet access, dining and more. Information on [facility] or [facility] ([facility]): Please view [email or web address] (Patient and Visitor Information) for parking/directions and more. For MyChart information, to activate account or password recovery, please go to [email or web address] or call [phone] (toll-free: [phone]). Information for Suicide Prevention: National Suicide Prevention Lifeline (2-774- 406-VYGJ (9527)). Surgery Times: For patients having surgery @ [facility] or [facility] ([facility]), if your surgeon's office has not notified you of your surgery time by NOON THE BUSINESS DAY BEFORE your surgery, please call [phone] and ask for your surgeon's office Dr Mary Adame For patients having surgery @ [facility], if your surgeon's office has not notified you of your surgery time by 2pm THE BUSINESS DAY BEFORE your surgery, please call the surgery center at [phone] and ask for your surgeon's office Dr Mary Adame documented in this encounter Plan of Treatment Not on file documented as of this encounter Procedures Procedure Name Priority Date/Time Associated Diagnosis Comments EXCHANGE - AIR/FLUID 09/23/2022 1:05 PM C DT Cystoid macular edema of both eyes VITRECTOMY - 25 GAUGE 09/23/2022 1:05 PM CDT Cystoid macular edema of both eyes documented in this encounter Visit Diagnoses Diagnosis Cystoid macular edema of both eyes- Primary 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 (BSS) intraocular solution As needed, Starting on Thu09/23/22 at 1324, Intra-Op Given 09/23/2022 1:24 PM CDT 15 mL Right Eye BSS-EPINEPHrine 0.5 mg preservative free intraocular solution (total volume 500 mL) As needed, Starting on Thu09/23/22 at 1324, Intra-Op Given 09/23/2022 1:24 PM CDT 500 mL Carrier Fluids for Secondary Infusion - 0.9% Sodium Chloride 30 mL, intravenous, As needed, For priming tubing and/or flushing, Starting on Thu09/23/22 at 1151, Pre-Op, 0-250 ml/hr to flush line after IV infusions when no maintenance IV ordered. Infuse 30mL at the same rate as the secondary infusion. Run as primary IV, not intended for KVO. Lactated Ringer's (LR) infusion 30 mL/hr, intravenous, Continuous, Starting on Thu09/23/22 at 1230, Pre-Op Restarted 09/23/2022 1:01 PM CDT Rate/Dose Verify 09/23/2022 1:00 PM CDT 30 mL/h r New Bag 09/23/2022 12:14 PM CDT 30 mL/hr 30 mL/hr lidocaine 1%, bupivicaine 0.375%, hyaluronidase 75 units preservative free ophthalmic solution (total volume 5 mL) As needed, Starting on Thu09/23/22 at 1314, Intra-Op Given 09/23/2022 1:14 PM CDT 5 mL phenylephrine (MYDFRIN) 2.5 % ophthalmic solution 1 drop 1 drop, right eye, Every 5 min, First dose on Thu09/23/22 at 1230, For 3 doses, Pre-Op, Indications: Perioperative MydriasisIndications:Perioperative Mydriasis Given 09/23/2022 12:1 4 PM CDT 1 drop Given 09/23/2022 12:10 PM CDT 1 drop Given 09/23/2022 12:01 PM CDT 1 drop sodium chloride 0.9% flush 0.5-20 mL 0.5-20 mL, intra-catheter, Every 8 hours scheduled, First dose on Thu09/23/22 at 1400, Pre-Op, Flush volume based on line type and size. sodium chloride 0.9% flush 0.5-20 mL 0.5-20 mL, intra-catheter, As needed, line care, Starting on Thu09/23/22 at 1151, Pre-Op, Flush volume based on line type and size. Flush before and after each use. tetracaine (PF) (ALTACAINE) 0.5 % ophthalmic solution As needed, Starting on Thu09/23/22 at 1312, Intra-Op, Indications: Administration of Corneal AnesthesiaIndications:Administratio n of Corneal Anesthesia Given 09/23/2022 1:12 PM CDT 2 drops tobramycin-dexAMETHasone (TOBRADEX) 0.3-0.1 % ophthalmic suspension As needed, Starting on Thu09/23/22 at 1325, Intra-Op Given 09/23/2022 1:25 PM CDT 5 drops Right Eye tropicamide (MYDRIACYL) 1 % ophthalmic solution 1 drop 1 drop, right eye, Every 5 min, First dose on Thu09/23/22 at 1230, For 3 doses, Pre-Op, Indications: Perioperative MydriasisIndications:Perioperative Mydriasis Given 09/23/2022 12:14 PM CDT 1 drop Given 09/23/2022 12:10 PM CDT 1 drop Given 09/23/2022 12:01 PM CDT 1 drop documented in this encounter Discontinued Medications Medication Sig Discontinue Reason Start Date End Da te calcium carbonate/vitamin D3 (CALTRATE 600 PLUS D ORAL) Take 1 tablet by mouth every morning Therapy completed 08/29/2022 zinc 50 mg tablet Take 50 mg by mouth every morning Therapy completed 08/29/2022 turmeric root extract 500 mg capsule Take 500 mg by mouth every morning Therapy completed 08/29/2022 documented as of this encounter Historical Medications * This list may reflect changes made after this encounter. magnesium gluconate 200 mg tabletIndications :hypomagnesemia Take 1 tablet (200 mg total) by mouth as needed sleep added in this encounter Active and Recently Administered Medications Times are shown in CDT. Scheduled Medication Order 09/21/2022 09/22/2022 09/23/2022 acetaminophen (TYLENOL) tablet 500 mg 500 mg, oral, Once, On Thu09/23/22 at 1515, For 1 dose, Phase I, When able to tolerate PO., Indications: Pain phenylephrine (MYDFRIN) 2.5 % ophthalmic solution 1 drop (COMPLETED) 1 drop, right eye, Every 5 min, First dose on Thu09/23/22 at 1230, For 3 doses, Pre-Op, Indications: Perioperative Mydriasis 1201 (Given - Provid er: Monisha Whalen RN)1210 (Given - Provider: Monisha Whalen RN)1214 (Given - Provider: Monisha Whalen RN) sodium chloride 0.9% flush 0.5-20 mL(Linked Group 1) 0.5-20 mL, intra-catheter, Every 8 hours scheduled, First dose on Thu09/23/22 at 1400, Pre-Op, Flush volume based on line type and size. 1400 (Due) tropicamide (MYDRIACYL) 1 % ophthalmic solution 1 drop (COMPLETED) 1 drop, right eye, Every 5 min, First dose on Thu09/23/22 at 1230, For 3 doses, Pre-Op, Indications: Perioperative Mydriasis 1201 (Given - Provid er: Monisha Whalen RN)1210 (Given - Provider: Monisha Whalen RN)1214 (Given - Provider: Monisha Whalen RN) Continuous Medication Order 09/21/2022 09/22/2022 09/23/2022 Lactated Ringer's (LR) infusion 30 mL/hr, intravenous, Continuous, Starting on Thu09/23/22 at 1230, Pre-Op 1214 (New Bag - Prov ider: Monisha Whalen RN)1230 (Due)1300 (Rate/Dose Verify - Provider: Giovanny You CRNA)1300 (Paused - Provider: Giovanny You CRNA - Comment: Switch to gravity)1301 (Restarted - Provider: Giovanny You CRNA)1317 (Anesthesia Volume Adjustment - Provider: Giovanny You CRNA)1335 (Anesthesia Volume Adjustment - Provider: Giovanny You CRNA)2010 (Due: Stopped) Lactated Ringer's (LR) infusion 125 mL/hr, intravenous, Continuous, Starting on Thu09/23/22 at 1515, Phase I, PRN Medication Order 09/21/2022 09/22/2022 09/23/2022 albuterol 2.5 mg/0.5 mL nebulizer solution 2.5 mg 2.5 mg, nebulization, Once as needed, wheezing, Starting on Thu09/23/22 at 1430, For 1 dose, Phase I, Notify Anesthesiologist. , Indications: Bronchospastic Pulmonary Disease balanced salt soln no.2 irrig. (BSS) intraocular solution (CANCELED) As needed, Starting on Thu09/23/22 at 1324, Intra-Op 1324 (Given - Provid er: Jessy Adame MD) BSS-EPINEPHrine 0.5 mg preservative free intraocular solution (total volume 500 mL) (CANCELED) As needed, Starting on Thu09/23/22 at 1324, Intra-Op 1324 (Given - Provid er: Jessy Adame MD) Carrier Fluids for Secondary Infusion - 0.9% Sodium Chloride(Linked Group 1) 30 mL, intravenous, As needed, For priming tubing and/or flushing, Starting on Thu09/23/22 at 1151, Pre-Op, 0-250 ml/hr to flush line after IV infusions when no maintenance IV ordered. Infuse 30mL at the same rate as the secondary infusion. Run as primary IV, not intended for KVO. diphenhydrAMINE (BENADRYL) 50 mg/mL injection 12.5 mg 12.5 mg, intravenous, Every 15 min PRN, itching, Starting on Thu09/23/22 at 1430, For 2 doses, Phase I, Max cumulative dose 50 mg., Indications: Itching fentaNYL (SUBLIMAZE) preservative free injection 50 mcg 50 mcg, intravenous, Once as needed, uncontrolled pain on PACU admission, Starting on Thu09/23/22 at 1430, For 1 dose, Phase I, Then proceed to PACU 1st line analgesic., Indications: Pain HYDROmorphone (DILAUDID) injection 0.2 mg 0.2 mg, intravenous, Administer over 2 Minutes, Every 10 min PRN, 1st line for pain, Starting on Thu09/23/22 at 1430, Phase I, Notify Anesthesiologist if total PACU dose reaches 2 mg and pain score 5/10 or more., Indications: Pain lidocaine 1%, bupivicaine 0.375%, hyaluronidase 75 units preservative free ophthalmic solution (total volume 5 mL) (CANCELED) As needed, Starting on Thu09/23/22 at 1314, Intra-Op 1314 (Given - Provid er: Jessy Adame MD) meperidine (DEMEROL) preservative free injection 12.5 mg 12.5 mg, intravenous, Administer over 5 Minutes, Every 10 min PRN, shivering, Starting on Thu09/23/22 at 1430, For 2 doses, Phase I, Max cumulative dose 25 mg., Indications: Shivering naloxone (NARCAN) 0.4 mg/mL injection 0.04-0.4 mg 0.04-0.4 mg, intravenous, Once as needed, other, excessive sedation/respiratory depression, Starting on Thu09/23/22 at 1430, For 1 dose, Phase I, Dilute 0.4 mg with 9 mL NS (final concentration 0.04 mg/mL). For respiratory depression (respiratory rate less than 6), administer 0.4 mg IVP over 30 seconds. For excessive sedation administer 0.04 mg (1 mL) every 1 minute until desired level of alertness. For IV, administer over 30 seconds., Indications: Opioid Toxicity ondansetron (ZOFRAN) injection 4 mg 4 mg, intravenous, Administer over 2 Minutes, Once as needed, nausea, vomiting, Starting on Thu09/23/22 at 1430, For 1 dose, Phase I, Proceed to prochlorperazine if ondansetron has been given within the last 6 hours. prochlorperazine (COMPAZINE) injection 5 mg 5 mg, intravenous, Administer over 2 Minutes, Once as needed, nausea, vomiting, Starting on Thu09/23/22 at 1430, For 1 dose, Phase I, If nausea/vomiting not relieved by ondansetron within 30 minutes or if ondansetron has been given within the last 6 hours. sodium chloride 0.9% flush 0.5-20 mL(Linked Group 1) 0.5-20 mL, intra-catheter, As needed, line care, Starting on Thu09/23/22 at 1151, Pre-Op, Flush volume based on line type and size. Flush before and after each use. tetracaine (PF) (ALTACAINE) 0.5 % ophthalmic solution (CANCELED) As needed, Starting on Thu09/23/22 at 1312, Intra-Op, Indications: Administration of Corneal Anesthesia 1312 (Given - Provid er: Jessy Adame MD) tobramycin-dexAMETHasone (TOBRADEX) 0.3-0.1 % ophthalmic suspension (CANCELED) As needed, Starting on Thu09/23/22 at 1325, Intra-Op 1325 (Given - Provid er: Jessy Adame MD - Comment: Soak on collagen shield) Linked Groups Order Group 1: Saline lock IV (CANCELED) Routine, Once (Routine), On Thu09/23/22 at 1152, For 1 occurrence, Pre-Op And sodium chloride 0.9% flush 0.5-20 mLJump to med 0.5-20 mL, intra-catheter, Every 8 hours scheduled, First dose on Thu09/23/22 at 1400, Pre-Op, Flush volume based on line type and size. And sodium chloride 0.9% flush 0.5-20 mLJump to med 0.5-20 mL, intra-catheter, As needed, line care, Starting on Thu09/23/22 at 1151, Pre-Op, Flush volume based on line type and size. Flush before and after each use. And Carrier Fluids for Secondary Infusion - 0.9% Sodium ChlorideJump to med 30 mL, intravenous, As needed, For priming tubing and/or flushing, Starting on Thu09/23/22 at 1151, Pre-Op, 0-250 ml/hr to flush line after IV infusions when no maintenance IV ordered. Infuse 30mL at the same rate as the secondary infusion. Run as primary IV, not intended for KVO. documented in this encounter Orders Medications Ordered That Elmo ht Not Have Been Administered Count Last Ordered Date First Ordered Date acetaminophen (TYLENOL) tablet 500 mg 1 albuterol 2.5 mg/0.5 mL nebu lizer solution 2.5 mg 1 09/23/2022 BUPivacaine (MARCAINE) 0.75 % (7.5 mg/mL) preservative free injection 1 09/23/2022 Carrier Fluids for Secondary Infusion - 0.9% Sodium Chloride 09/23/2022 diphenhydrAMINE (BENADRYL) 5 0 mg/mL injection 12.5 mg 1 09/23/2022 fentaNYL (SUBLIMAZE) preserv ative free injection 50 mcg 1 09/23/2022 HYDROmorphone (DILAUDID) injection 0.2 mg 1 09/23/2022 Lactated Ringer's (LR) infusion 1 lidocaine PF (XYLOCAINE) 10 mg/mL (1 %) preservative free injection 2-10 mg 1 09/23/2022 meperidine (DEMEROL) preserv ative free injection 12.5 mg 1 09/23/2022 naloxone (NARCAN) 0.4 mg/mL injection 0.04-0.4 mg 1 09/23/2022 ondansetron (ZOFRAN) injection 4 mg 1 09/23 prochlorperazine (COMPAZINE) injection 5 mg 1 09/23/2022 sodium chloride 0.9% flush 0.5-20 mL 2 09/11 Diet Count Last Ordered Date First Orde red Date ADULT DISCHARGE DIET 1 09/23/2022 Nursing Count Last Ordered Date First Orde red Date DISCHARGE ACTIVITY 4 09/23/2022 DISCHARGE CALL PROVIDER 2 09/23/2022 OTHER FOLLOW UP 1 09/23/2022 Discharge Count Last Ordered Date First Orde red Date DISCHARGE PATIENT 1 09/23/2022 documented in this encounter Care Teams Credentialer Relationship Specialty Start Date End Date Sylvia Dawson PA [address] [place] [address] PCP - General Internal Medicine 01/05/20 Erica Rodrigues MD [address] [facility] [address] [place] [address] Radiation Oncologist Radiation Oncology 10/25/18 Gasper Kaba MD [address] [place] [address] Surgeon Surgical Oncology 10/25/18 Brandy Aguirre, BED SPRING MAKER [address] [facility] [place] [address] Nurse Practitioner Certified Clinical Nurse Specialist 10/25/18 Jo-Ann Morrow, PhD [address] [place] [address] Nurse Practitioner Radiation Oncology 10/25/18 Christina Louis, METAL TILE SETTER [address] [place], [place] [id number] Nurse Practitioner Medical Oncology 10/25/18 documented as of this encounter
--- OUTSIDE RECORDS SUMMARY | 2024-04-24 05:50 | XMS_ITS | Encounter Summary ---
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 [H35.353] Procedures [place] VITRECTOMY MECHANICAL PARS PLANA VITRECTOMY - 25 GAUGE Referral ID Status Reason Start Date Expiration Date Visits Re quested Visits Authorized [id number] 1 1 Encounter Details Date Type Department Care Team (Latest Contact Info) Description 09/23/2022 11:29 AM CDT - 09/23/2022 2:30 PM CDT Hospital Encounter [facility] Operating [facility] [address] [place] [address] Jessy Adame MD [address] [id number] Cystoid macular edema of both eyes (Primary Dx) Discharge Disposition: Discharge to home [...] file Legal Sex Female 3:42 AM CASE ADVOCATE Gender Identity Not on file Sexual Orientation [...] 1 tablet by mouth every morning vit T-N-zsdswc-zinc-lut ein (PreserVision Lutein) 226-90-0.8-5 mg capsuleIndications: Eye support Take 1 tablet by mouth 2 (two) times a day atenoloL (TENORMIN) 25 mg tablet TAKE 1 TABLET(25 MG) BY MOUTH DAILY 90 tablet 1 3 03/19/20 23 butalbital-acetamin autmu-jfsqljay-vjki ine (FIORICET WITH CODEINE) 47-044-53-30 mg per capsuleIndications: Tension-Type Headache Take 1 [...] Preoperative Evaluation Record Evaluation type/location: TPAP from [facility] Planned procedure site: [facility] CAM OR (Pod 4) Date: 09/02/22 NOTE: [...] aneurysm, bilateral carotid artery dissections s/p carotid fwagkt70/2022 and web device placement in 06/2022 now [...] - sinus tachycardia. Pertinent negatives: CAD ; [place] ; CABG ; valvular heart disease; valve replacement; atrial fibrillation; pacemaker/ICD; PVD; DVT/PE; negative for CHF; drug-eluting stent(s); bare metal stent(s) and coronary angioplasty Comments: Weight Clerk Dr. De León, last OVN 04/17/22 Respiratory [...] obesity (BMI >30) and transplanted organ Comments: [facility] rheumatology [facility] 03/2022 Functional Capacity Functional capacity: 4-6 [...] Patient instructions were provided electronically sent via Strut. Patient verbalized understanding of preoperative plan. + [...] 2015 Invasive ductal carcinoma ??? Cataract ??? 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 Current Outpatient Medications: ??? acetaminophen (TYLENOL) 325 mg tablet ??? aspirin 81 mg enteric coated tablet ??? atenoloL (TENORMIN) 25 mg tablet ??? lmkygesmnt-fhetnfrklwzoc-grzzpwej-codeine (FIORICET WITH CODEINE) 06-676-06-30 mg per capsule ??? famotidine-Ca carb-mag hydrox [...] valACYclovir (Valtrex) 500 mg tablet ??? vit H-G-gaacdd-zinc-lutein (PreserVision Lutein) 226-90-0.8-5 mg capsule ??? ezetimibe [...] The full scanned/data report is available in Epic. labeled MONITOR STRIPS PDF . PT: No [...] depressed techniques with the aid of skilled department assistant. There appeared to be some posterior capsular opacity, this was cleared using the vitrector as well. The peripheral retina was inspected, no tears or detachment retina were seen, an air-fluid exchange was performed. The trocars removed. The wounds were found to be nonleaking. The pressurewas checked with at [place] tonometer and found to be 15 and holding good pressure. The TobraDex soaked shield was placed over the eye. Lid speculum was removed, a patch was placed over the eye and they were aroused from anesthesia care and left the operative suite in good in good condition. They will be asked to maintain a p.r.n. position, and re-evaluated tomorrow. * Brief Op Note - Jessy Adame MD - 09/23/2022 1:19 PM CDT Operative Progress Note Surgical Team: Surgeon(s) and Role: * Jessy Adame MD - Primary * Jacek Joyce MD - Fellow Anesthesiologist: Fadi Mckeon MD DATE NIGHT CAREGIVER: Giovanny You CRNA Business Services Associate: Al Paz RN; Olga Lorenzo RN Scrub: Renuka Molina [facility] Scrub: Yesika Vick RN DATE OF SURGERY [...] Preoperative Assessment and Planning CPAP Clinic Location: [facility] The night before your surgery: * [...] 25 mg tablet Take morning of surgery popuyyecen-okauuvqzdkwqv-gblsqthl-codeine (FIORICET WITH CODEINE) 44-949-18-30 mg per capsule Take on day of [...] on day of surgery if needed vit D-W-bauamp-zinc-lutein (PreserVision Lutein) 226-90-0.8-5 mg capsule Don't take [...] Planning Perioperative Nursing Note [facility] - TELEPHONE ONLY, NO PHYSICAL EXAM [...] mouth every morning tachycardia) 90 tablet 1 bcppjsnrde-xfvearmnggpsw-ohskqpuh-codeine (FIORICET WITH CODEINE) 85-935-21-30 mg per capsule Take 1 capsule by [...] mouth every morning) 90 tablet 2 vit K-V-uaiwbf-zinc-lutein (PreserVision Lutein) 226-90-0.8-5 mg capsule Take 1 tablet by mouth 2 (two) times a day Implants Stent Surpass Streamline Flow Diverter - Implanted (Right) Carotid Photographer'S Assistant: [employer] Lot number: [id number] Size: 5MM X 50MM Device identifier: [id number] Device identifier type: [id number] As of 04/09/2022 Status: Implanted Lvis Intrluminal Support Device - Implanted (Left) Carotid Photographer'S Assistant: Rayneer Lot number: [id number] Size: 5.5MM X 33MM As of 04/09/2022 Status: Implanted Vascular Closure Device Angio-Seal Vip Vascular Closure Device - Implanted (Right) Femoral Photographer'S Assistant: [employer] Lot number: [id number] As of 04/09/2022 Status: Implanted Type Not Specified [employer] Web Sl 5mm 3mm Device Embolization W5-5-3 - [id number] - Implanted (Left) Inventory item: [employer] WEB SL 5MM 3MM DEVICE EMBOLIZATION W5-5-3 Model/Cat number: [id number] Photographer'S Assistant: Rayneer Lot number: [id number] As of 06/16/2022 Status: Implanted [employer] Ronal Angio-Seal Vip 6fr Closere Device [id number] - [id number] - Implanted (Right) Inventory item: [employer] RONAL ANGIO-SEAL VIP 6FR CLOSERE DEVICE [id number] Model/Cat number: [id number] Photographer'S Assistant: [employer] Lot number: [id number] As of 06/16/2022 Status: Implanted SKIN Piercings [...] expects to be discharged to:: Private residence REQUIREMENTS ANALYST NO ADDITIONAL COMMENTS/ FOLLOW UP * Pre-Procedure [...] remove nail coverings, artificial nails and nail gabonese prior to the day of surgery. You should leave your valuables and any jewelry at home. No metal or piercings are allowed in the operating room. You should bring your insurance card, a photo ID (example: Real Estate Salesperson's License) and a method of payment for [...] Chart. If you are having surgery at [facility], please arrive on the day of [...] Remove nail coverings, artificial nails and nail gabonese. Place clean linens on your bed the [...] questions, please call the CPAP Staff at [phone], Thursday-Thursday 8am-4:30pm. All patients should read the below section: All visitors/patients are being asked to wear a clean face mask when entering the hospital. COVID 19 Updates & Visitor Policy: Please access [email or web address] for the most updated information. Information on [facility]: Please view [email or web address] (Patient & Visitor Information) for additional details regarding Advanced Directive forms, AWARE, directions, parking information, lodging, Internet access, dining and more. Information on [facility] or [facility] ([facility]): Please view [email or web address] (Patient and Visitor Information) for parking/directions and more. For MyChart information, to activate account or password recovery, please go to [email or web address] or call [phone] (toll-free: [phone]). Information for Suicide Prevention: National Suicide Prevention Lifeline (6-501- 910-CWQA (1920)). Surgery Times: For patients having surgery @ [facility] or [facility] ([facility]), if your surgeon's office has not notified you of your surgery time by NOON THE BUSINESS DAY BEFORE your surgery, please call [phone] and ask for your surgeon's office Dr Mary Adame For patients having surgery @ [facility], if your surgeon's office has not notified you of your surgery time by 2pm THE BUSINESS DAY BEFORE your surgery, please call the surgery center at [phone] and ask for your surgeon's office Dr [...] MAR Action Action Date Dose Rate Site Carrier Fluids for Secondary Infusion - 0.9% [...] 12:14 PM CDT 30 mL/hr 30 mL/hr phenylephrine (MYDFRIN) 2.5 % ophthalmic solution 1 [...] size. Flush before and after each use. tropicamide (MYDRIACYL) 1 % ophthalmic solution 1 [...] nebu lizer solution 2.5 mg 1 09/23/2022 balanced salt soln no.2 irri g. (BSS) intraocular solution 1 09/23/2022 BSS-EPINEPHrine 0.5 mg prese rvative free intraocular solution (total volume 500 mL) 1 09/23/2022 BUPivacaine (MARCAINE) 0.75 % (7.5 mg/mL) preservative free injection 1 09/23/2022 Carrier Fluids for Secondary Infusion - 0.9% Sodium Chloride 1 09/23/2022 diphenhydrAMINE (BENADRYL) 5 0 mg/mL injection 12.5 mg 1 09/23/2022 fentaNYL (SUBLIMAZE) preserv ative free injection 50 mcg 1 09/23/2022 HYDROmorphone (DILAUDID) injection 0.2 mg 1 09/23/2022 Lactated Ringer's (LR) infusion 1 lidocaine 1%, bupivicaine 0. 375%, hyaluronidase 75 units preservative free ophthalmic solution (total volume 5 mL) 1 09/23/2022 lidocaine PF (XYLOCAINE) 10 mg/mL (1 %) preservative free injection 2-10 mg 1 09/23/2022 meperidine (DEMEROL) preserv ative free injection 12.5 mg 1 09/23/2022 naloxone (NARCAN) 0.4 mg/mL injection 0.04-0.4 mg 1 09/23/2022 ondansetron (ZOFRAN) injection 4 mg 1 09/23 prochlorperazine (COMPAZINE) injection 5 mg 1 09/23/2022 sodium chloride 0.9% flush 0.5-20 mL 2 09/11 tetracaine (PF) (ALTACAINE) 0.5 % ophthalmic solution 1 09/23/2022 tobramycin-dexAMETHasone (TO BRADEX) 0.3-0.1 % ophthalmic suspension 1 09/23/2022 Diet Count Last Ordered Date First Orde red Date ADULT DISCHARGE DIET 1 09/23/2022 Nursing Count Last Ordered Date First Orde red Date DISCHARGE ACTIVITY 4 09/23/2022 DISCHARGE CALL PROVIDER 2 09/23/2022 OTHER FOLLOW UP 1 09/23/2022 Discharge Count Last Ordered Date First Orde red Date DISCHARGE PATIENT 1 09/23/2022 documented in this encounter Care Teams Vocational Case Manager Relationship Specialty Start Date End Date Sylvia Dawson PA [address] [place] [address] PCP - General Internal Medicine 01/05/20 Erica Rodrigues MD [address] [place] [address] Radiation Oncologist Radiation Oncology 10/25/18 Gasper Kaba MD [address] [place] [address] Surgeon Surgical Oncology 10/25/18 Brandy Aguirre, APPLICATOR SPRAYER [address] [place] [address] Nurse Practitioner Certified Clinical Nurse Specialist 10/25/18 Jo-Ann Morrow, PhD [address] [place] [address] Nurse Practitioner Radiation Oncology 10/25/18 Christina Louis, CONVERTER SUPERVISOR [address] [place] [address] Nurse Practitioner Medical Oncology 10/25/18 documented as of this encounter
--- OUTSIDE RECORDS SUMMARY | 2024-04-24 05:50 | XMS_ITS | Encounter Summary ---
Author Organization [facility] [employer] [facility] Address [address] [place] [address] Phone Care Team Providers Care Pulp Refiner Operator Name Role Phone Erica Rodrigues MD Unavailable Gasper Kaba MD Unavailable [phone] Brandy Aguirre MANAGER OF ENGINEERING Unavailable [phone] Jo-Ann Morrow PhD Unavailable [phone] Christina Louis TRACK LAYING EQUIPMENT OPERATOR Unavailable [phone] Sylvia Dawson Primary Care Provider [phone] Encounter Details Date Type Department Care Team (Late st Contact Info) Description 08/25/2022 12:45 PM CDT Telemedicine [facility]) - [facility] [address] [facility] Medical Office Building [address] [place] [address] Albin Pereyra MD [address] [place], [place] [id number] Obstructive sleep apnea (Primary Dx) Social History [...] on file Legal 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 provider found Primary Care Provider: Sylvia Dawson PA Patient Name: Yesika Denney Date of : 1960 No chief complaint on file. Diagnosis Problem List Sleep Obstructive sleep apnea - Primary - This was a telemedicine visit with Ms. Denney which took place via Real-time video connection (InTouch, Zoom or similar). During the visit, [place] The session started at 12:49 and ended at 1:10. The patient has been informed that the visit may not be secure and acknowledged the information. - HISTORY: Mrs Denney had a PSG recently secondary to her noting symptoms while [place] were [place] trip in the [place] of [place]. She had witnessed apneas. No snoring. Has baseline fatigue that she is unsure if it is related to her JOSE. Has started CPAP in anuary 2022. Puts it on nightly and has trouble falling asleep with it on. No surgical therapy for JOSE in her past. Had tonsillectomy at age 21 for tonsillitis. DATA REVIEWED: PSG 05/06/22 showed AHI of 42.8 Time Spent: I spent a total of 21 minutes with the patient, with over half in counseling. IMPRESSION: Severe JOSE with CPAP intolerance PLAN: We discussed nerve stimulation therapy. Discussed other options of oral appliance. Discussed we would need drug induced sleep endoscopy to rule out complete concentric collapse. We had a long talk about the risks benefits and alternatives to hypoglossal nerve stimulator implantation. We discussed that the procedure requires 2 incisions, 1 under the mandible, 1 under the clavicle. These are to insert the 2 leads as well as the generator. We discussed the cosmetic deformity of this. We discussed the risks including injury to the marginal nerve causing lip weakness, hypoglossal nerve causing dysarthria or dysphagia, bleeding, pain, infection, seroma, need for explantation, dissatisfaction, failure to improve or cure obstructive sleep apnea. Discussed the limited abilityto get MRIs down the road and possible need for explantation. Discussed risk of infection could require explantation. Discussed that the patient may ultimately not get desired benefit of the device. The patient was also instructed on the postoperative course of follow-up with me in a couple of weeks as well as follow up with the Sleep Center in approximately 1 month postoperatively for turning onthe generator as well as a follow up after that for re-evaluation with a sleep study. All questionswere answered. We will reach out to Dr. Moss given her bilateral carotid dissections and NEISHA aneurysm. Thank you for allowing me to participate in the care of . Should you have any questions or concerns, please do not hesitate to contact my office. Warm regards, Albin Pereyra M.D. Catalyst Recovery Operator Head & Neck Surgical Oncology and Microvascular Reconstruction Department of Otolaryngology - Head & Neck Surgery [facility] documented in this encounter Plan of Treatment Not on file documented as of this encounter Visit Diagnoses Diagnosis Obstructive sleep apnea- Primary Obstructive sleep apnea (adult) (pediatric) documented in this encounter Care Teams Pulp Refiner Operator Relationship Specialty Start Date End Date Sylvia Dawson PA [address] [facility] [address] [place] [address] PCP - General Internal Medicine 01/05/20 Erica Rodrigues MD [address] [place] [address] Radiation Oncologist Radiation Oncology 10/25/18 Gasper Kaba MD [address] [place] [address] Surgeon Surgical Oncology 10/25/18 Brandy Aguirre, MANAGER OF ENGINEERING [address] [place] [address] Nurse Practitioner Certified Clinical Nurse Specialist 10/25/18 Jo-Ann Morrow, PhD [address] [place] [address] Nurse Practitioner Radiation Oncology 10/25/18 Christina Louis TRACK LAYING EQUIPMENT OPERATOR [address] [place] [address] Nurse Practitioner Medical Oncology 10/25/18 documented as of this encounter
--- OUTSIDE RECORDS SUMMARY | 2024-04-24 05:50 | XMS_ITS | Encounter Summary ---
Author Organization [facility] Healthcare Address [address] [place] [address] Care Team Providers Care Geodetic Technician Name Role Phone Erica Rodrigues MD Unavailable Gasper Kaba MD Unavailable [phone] Brandy Aguirre TELEVISION HOST Unavailable [phone] Jo-Ann Morrow PhD Unavailable Christina Louis SUPPLY CHAIN TECHNICIAN Unavailable [phone] Sylvia Dawson Primary Care Provider [phone] Reason for Visit * Auth/Cert (Routine) Specialty Diagnoses / Procedures Referred By Contac t Referred To Contact Diagnoses JOSE (obstructive sleep apnea) JOSE (obstructive sleep apnea) [G47.33] Procedures TN DISE DYN EVAL SLEEP DISORDERED BREATHING FLX DX DRUG INDUCED SLEEP ENDOSCOPY Referral ID Status Reason Start Date Expiration Date Visits Re quested Visits Authorized [id number] 1 1 Encounter Details Date Type Department Care Team (Latest Contact Info) Description 09/19/2022 5:44 AM CDT - 09/19/2022 8:45 AM CDT Hospital Encounter [facility] Operating Room [address] AMAYA [address] [address] Albin Pereyra MD [address] [place] [address] Discharge Disposition: Discharge to home or self [...] on file 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 Gender Identity Not on file Sexual Orientation Not on file 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 on file Not on file Not on file documented as of this encounter Last Filed Vital Signs Vital Sign Reading Time Taken Comments Blood Pressure 152/91 09/19/2022 8:35 AM CDT Pulse 60 09/19/2022 8:35 AM CDT Temperature 36.5 ??C (97.7 ??F) 09/19/2022 8:30 AM CD T Respiratory Rate 18 09/19/2022 8:35 AM CDT Oxygen Saturation 100% 09/19/2022 8:35 AM CDT Inhaled Oxygen Concentration - - Weight 62.6 kg (138 lb) 09/19/2022 5:56 AM CDT Height 160 cm (5' 3 ) 09/19/2022 5:56 AM CDT Body Mass Index 24.45 09/19/2022 5:56 AM CDT documented in this encounter Discharge Instructions * Discharge Instructions* Jennyfer Lubin RN - 09/19/2022 7:06 AM CDT ENT Post Operative Discharge Instructions Procedure: Sleep Endoscopy Diet: Return to your regular diet Activity: Do not drive, operative heavy machinery, or make important legal decisions for the next 24 hours. Light activity for the next 24 hours. Resume normal activity afterwards as tolerated. Results: Your doctor will discuss the results of your endoscopy with you at your follow up appointment. Follow up: You should follow up in Albin Ruiz MD's clinic as scheduled below. If you do not have an appointment, call to schedule [place] [id number] [address] OTHER FOLLOW UP: 1. PCP - for management of all chronic illnesses Future Appointments Date Time Provider Department Center 09/24/2022 8:20 AM Jessy Adame MD [facility] 6 OP 09/25/2022 3:00 PM Patricia Martinez MD RHEU CAM 5C [facility] Rheum 10/02/2022 11:20 AM Jessy Adame MD [facility] 6 OP 10/16/2022 9:00 AM Jessy Adame MD [facility] 6 OP 01/14/2023 9:15 AM Valorie Young MD CAR CAM 8B Cardiology 03/03/2023 9:30 AM Sylvia Dawson PA [facility] 04/21/2023 9:00 AM Nazia Ventura MD EML CAM 5C [facility] IM EML 04/21/2023 10:00 AM Harpal De León MD MG CAR [facility] Specialty Phone numbers Appointment Scheduling: Urgent Concerns after hours or Weekends: Call and ask for the ENT resident education rn. During Regular Business Hours (8am-5pm Thursday through Thursday): Dr. Pereyra (Marley Jones RN): [phone] Questions: If you have any concerns or [...] of narcotic pain medication include Percocet, Oxycontin, Clutier, Hydrocodone, and Oxycodone. FAQs (frequently asked questions) [...] physical therapy, we are available to assist: [facility] ST[facility]: [facility] [place] [facility] [phone] [place] [phone] [facility] [phone] How are some things that you can [...] given by your doctor or other health palliative care nurse practitioner. documented in this encounter Medications at Time [...] 1 tablet by mouth every morning vit M-Y-gncpqj-zinc-lut ein (PreserVision Lutein) 226-90-0.8-5 mg capsuleIndications: Eye support Take 1 tablet by mouth 2 (two) times a day atenoloL (TENORMIN) 25 mg tablet TAKE 1 TABLET(25 MG) BY MOUTH DAILY 90 tablet 1 3 03/19/20 23 butalbital-acetamin jqquk-xlqksuck-aymm ine (FIORICET WITH CODEINE) 95-002-64-30 mg per capsuleIndications: Tension-Type Headache Take 1 [...] documented in this encounter H&P Notes * Wallace Rolon MD - 09/19/2022 6:53 AM CDT I have reviewed the H&P, examined the patient, and endorse the findings as written. Plan of Care : Based on the above findings, I consider Yesika Denney to be an acceptable risk for : Procedure(s): DRUG INDUCED SLEEP ENDOSCOPY Cosigned by Albin Pereyra MD at 09/19/2022 7:05 AM CDT Source Note - Jimena Green NP - 09/02/2022 11:48 AM CDT Images from the original note were not included. 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 Patient verbalized understanding of preoperative plan. + [...] Ectopic Multiple Live Births 3 Obstetric Comments [employer] Bi Consultant history: 3 para 3, 1st term age [...] mg total) by mouth every morning tachycardia mxdhecdicf-rjipjhfqfpyjv-zfcfjgpc-codeine (FIORICET WITH CODEINE) 81-692-33-30 mg per capsule -- 04/15/22 -- Sylvia [...] mg total) by mouth every morning vit T-E-sjziuv-zinc-lutein (PreserVision Lutein) 226-90-0.8-5 mg capsule -- -- -- Ronda Ruano MD No current facility-administered medications for this encounter. Current Outpatient Medications: ??? acetaminophen (TYLENOL) 325 mg tablet ??? aspirin 81 mg enteric coated tablet ??? atenoloL (TENORMIN) 25 mg tablet ??? enedzcdgzs-gaggbwygjajwd-hlxgoshz-codeine (FIORICET WITH CODEINE) 00-183-55-30 mg per capsule ??? famotidine-Ca carb-mag hydrox [...] valACYclovir (Valtrex) 500 mg tablet ??? vit G-E-lzsbjp-zinc-lutein (PreserVision Lutein) 226-90-0.8-5 mg capsule ??? ezetimibe [...] 08/06/2022: 0.69 mg/dL Chelsea index score: 100 documented in this encounter Miscellaneous Notes * Op Note - Albin Pereyra MD - 09/19/2022 8:00 AM CDT DATE OF SURGERY: 09/19/2022 PREOPERATIVE DIAGNOSIS: Obstructive sleep apnea with CPAP intolerance POSTOPERATIVE DIAGNOSIS: Obstructive sleep apnea with CPAP intolerance PROCEDURE PERFORMED: Drug induced sleep endoscopy ATTENDING SURGEON: Albin Pereyra MD MEDICAL RECEPTIONIST BILLER SURGEON: Surgeon(s): Albin Pereyra MD ANESTHESIA: Monitor Anesthesia Care EBL: No blood loss documented. COMPLICATIONS: * No complications entered in OR log * Body mass index is 24.45 kg/m??. OPERATIVE NOTE: This is a 62 y.o. female who has obstructive sleep apnea with CPAP intolerance. The patient was then consented for the above procedures to better characterize the locations and patterns of obstruction and to predict appropriate medical/surgical options moving forward. Risks benefits and alternatives were discussed. The patient was taken to the operating room and placed supine on the operating table. The lights were dimmed. Anesthesia was established by the anesthesia service. Propofol small boluses were used for sedation until the level of sedation mimicked sleep state. The patient was then handed to the surgical service. The patient was then prepped and draped in the normal fashion. After final timeout verification, the procedure began. With the patient not responsive to verbal commands but still with spontaneous respiration, sleep disordered breathing events were observed. The scope was inserted in both sides of the nose for examination and into the pharynx and larynx. Findings: Nasal: Normal bilaterally Retropalatal space: Obliquely oriented palate. Mild lateral wall component but predominately an anterior-posterior collapse Oropharyngeal: Mild lateral oropharyngeal wall component but no complete lateral oropharyngeal collapse The lingual tonsils were minimal and atrophic. The base of tongue was observed with complete anterior-posterior collapse. The VOTE score at baseline was: Velum: Partial AP Oropharynx: Partial AP Tongue Base: Complete AP Epiglottis: Partial AP Trachea: Normal with no stenosis In summary, there was no evidence of complete concentric palatal obstruction and the patient appears to be a candidate for hypoglossal nerve stimulation therapy. At the end of the case, all counts were correct. Attending surgeon attestation: I was present and directly participated for the entirety of the surgery. * Perioperative Nursing Note - Matt Driver RN - 09/05/2022 11:37 AM CDT Center for Preoperative Assessment and Planning Perioperative Nursing Note Telephone Preoperative Evaluation ([facility]) - TELEPHONE ONLY, NO PHYSICAL EXAM Date: 09/05/22 Vitals: 09/05/22 1130 Weight: 61.2 kg (135 lb) Height: 160 cm (5' 3 ) 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: Social History Tobacco Use Smoking Status Never Passive exposure: Never Smokeless Tobacco Never Vaping Use Vaping Use: Never used Substance and Sexual Activity Drug Use Yes Types: Alcohol Comment: 2 drinks per month Alcohol Use Q1: How often do you have a drink containing alcohol?: Monthly or less Q2: How many drinks containing alcohol do you have on a typical day when you are drinking?: 1 or 2 Q3: How often do you have six or more drinks on one occasion?: Never Outpatient Medications Marked as Taking for the 09/19/22 encounter (Hospital Encounter) Medication Sig Dispense Refill [...] mouth every morning tachycardia) 90 tablet 1 ognmikfyih-wuekjfgxjsrhf-xvmjzfko-codeine (FIORICET WITH CODEINE) 46-513-01-30 mg per capsule Take 1 capsule by mouth every 4 (four) hours as needed for headaches 20 capsule 0 ezetimibe (ZETIA) 10 mg tablet [...] for a few days)) 90 tablet 1 hydrOXYchloroQUINE (PLAQUENIL) 200 mg tablet TAKE 1 [...] (200 mg total) by mouth nightly sleep multivitamin with minerals tablet Take 1 tablet [...] mouth every morning) 90 tablet 2 vit T-Q-wqvgdb-zinc-lutein (PreserVision Lutein) 226-90-0.8-5 mg capsule Take 1 tablet by mouth 2 (two) times a day Implants Stent Surpass Streamline Flow Diverter - Implanted (Right) Carotid Health Assessment And Treatment Teacher: [employer] Lot number: [id number] Size: 5MM X 50MM Device identifier: [id number] Device identifier type: GS1 As of 04/09/2022 Status: Implanted Lvis Intrluminal Support Device - Implanted (Left) Carotid Health Assessment And Treatment Teacher: [employer] Lot number: [id number] Size: 5.5MM X 33MM As of 04/09/2022 Status: Implanted Vascular Closure Device Angio-Seal Vip Vascular Closure Device - Implanted (Right) Femoral Health Assessment And Treatment Teacher: [employer] Lot number: [id number] As of 04/09/2022 Status: Implanted Type Not Specified [employer] Web Sl 5mm 3mm Device Embolization W5-5-3 - [id number] - Implanted (Left) Inventory item: [employer] WEB SL 5MM 3MM DEVICE EMBOLIZATION W5-5-3 Model/Cat number: W5-5-3 Health Assessment And Treatment Teacher: [employer] Lot number: [id number] As of 06/16/2022 Status: Implanted Ter[employer] Scop[employer] Ronal Angio-Seal Vip 6fr Closere Device [id number] - [id number] - Implanted (Right) Inventory item: TER[employer] RONAL ANGIO-SEAL VIP 6FR CLOSERE DEVICE [id number] Model/Cat number: [id number] Health Assessment And Treatment Teacher: [employer] Lot number: [id number] As of 06/16/2022 Status: Implanted SKIN Piercings Remaining: Yes Wound (LDAs) Type of Wound (LDA): (none) SCREENINGS Chelsea index score: 100 NUTRITION PATIENT CARE PLANNING Advance Directives (For Healthcare) Have you reviewed your Advance Directive and is it valid for this stay?: Not applicable Advance Directive: Patient has advance directive, copy not in chart Advance Directive not in Chart: Copy requested from other (Comment) (patient) Communication/Tube Sizer Operator Needs Communication Needs: Glasses Does caregiver's language differ from patient's?: No Assistive Devices/DME: Eyeglasses, CPAP/BiPAP Discharge Planning Type of Residence: Private residence Living Arrangements: Spouse/significant other Support Systems: Spouse/significant other Assistance Needed: Spouse to provide discharge transportation Patient expects to be discharged to:: Private residence [facility] STITCHER NO ADDITIONAL COMMENTS/ FOLLOW UP * Pre-Procedure Instructions - Matt Driver RN - 09/05/2022 11:36 AM CDT [facility] FOR PREOPERATIVE ASSESSMENT AND PLANNING [...] remove nail coverings, artificial nails and nail scottish prior to the day of surgery. You should leave your valuables and any jewelry at home. No metal or piercings are allowed in the operating room. You should bring your insurance card, a photo ID (example: Trade Embalmer's License) and a method of payment for [...] Chart. If you are having surgery at [facility], please arrive on the day of surgery [...] Remove nail coverings, artificial nails and nail scottish. Place clean linens on your bed the night before surgery. Shaving: You may shave your face, legs and underarms during your evening shower. Avoid shaving on the day of surgery. Travel/Exposure Screening: Travel Screening Have you traveled [...] questions, please call the CPAP Staff at [phone], Thursday-Thursday 8am-4:30pm. All patients should read the below section: All visitors/patients are being asked to wear a clean face mask when entering the hospital. COVID 19 Updates & Visitor Policy: Please access [email or web address] for the most updated information. Information on [facility] & the Orthopedic Center: Please view [email or web address] (Patient & Visitor Information) for additional details regarding Advanced Directive forms, AWARE, directions, parking information, lodging, Internet access, dining and more. Information on [facility] or [facility] ([facility]): Please view [email or web address] (Patient and Visitor Information) for parking/directions and more. For MyChart information, to activate account or password recovery, please go to [email or web address] or call [phone] (toll-free: [phone]). Information for Suicide Prevention: National Suicide Prevention Lifeline (0-947- 439-CDUV (7447)). Surgery Times: For patients having surgery @ [facility], if your surgeon's office has not notified you of your surgery time by 2pm THE BUSINESS DAY BEFORE your surgery, please call the surgery center at [phone] and ask for your surgeon's office Dr. Pereyra. documented in this encounter Plan of Treatment Not on file documented as of this encounter Procedures Procedure Name Priority Date/Time Associated Diagnosis Comments DRUG INDUCED SLEEP ENDOSCOPY EVAL FLEX DIAG 09/19/2022 7:57 AM CDT JOSE (obstructive sleep apnea) documented in this encounter Visit Diagnoses Not on filedocumented in this encounter Administered Medications Inactive Administered Medications - up to 3 most recent administrations Medication Order MAR Action Action Date Dose Rate Site Lactated Ringer's (LR) infusion 30 mL/hr, intravenous, Continuous, Starting on Thu09/19/22 at 0700, For 4 hours, Pre-Op, Use a 500 ml bag for End Stage Renal Disease Patients. Discontinue if fluid still running once patient arrives to floor. Restarted 09/19/2022 8:02 AM CDT Rate/Dose Verify 09/19/2022 7:52 AM CDT 30 mL/h r New Bag 09/19/2022 6:30 AM CDT 30 mL/hr 30 mL/hr oxymetazoline (AFRIN) 0.05 % nasal spray 3 spray 3 spray, each nostril, Once, On Thu09/19/22 at 0700, For 1 dose, Pre-Op, In preop holding area., Indications: in pre-op areaIndications:in pre-op area Given 09/19/2022 6:32 AM CDT 3 sprays documented in this encounter Active and Recently Administered Medications Times are shown in CDT. Scheduled Medication Order 09/17/2022 09/18/2022 09/19/2022 oxymetazoline (AFRIN) 0.05 % nasal spray 3 spray (COMPLETED) 3 spray, each nostril, Once, On Thu09/19/22 at 0700, For 1 dose, Pre-Op, In preop holding area., Indications: in pre-op area 0632 (Given - Provid er: Kacie Avilze RN) Continuous Medication Order 09/17/2022 09/18/2022 09/19/2022 Lactated Ringer's (LR) infusion 30 mL/hr, intravenous, Continuous, Starting on Thu09/19/22 at 0700, For 4 hours, Pre-Op, Use a 500 ml bag for End Stage Renal Disease Patients. Discontinue if fluid still running once patient arrives to floor. 0630 (New Bag - Prov ider: Kacie Avilez RN)0752 (Rate/Dose Verify - Provider: Yesika Triana CRNA)0801 (Paused - Provider: Yesika Triana CRNA - Comment: Switch to gravity)0802 (Restarted - Provider: Yesika Triana CRNA)1253 (Due: Stopped) Lactated Ringer's (LR) infusion 125 mL/hr, intravenous, Continuous, Starting on Thu09/19/22 at 0845, For 4 hours, Phase I, Discontinue upon discharge from PACU to the floor. 0838 (Stopped - Prov ider: Jennyfer Lubin RN) PRN Medication Order 09/17/2022 09/18/2022 09/19/2022 acetaminophen (TYLENOL) tablet 500 mg 500 mg, oral, Every 6 hours PRN, headaches, other, Breakthrough Pain and Supplement to other pain meds, Starting on Thu09/19/22 at 0804, For 2 doses, Phase I, When able to tolerate PO after consulting with Anesthesiologist. Do not administer if patient has already received Acetaminophen-containing medications in PACU., Indications: Pain diphenhydrAMINE (BENADRYL) 50 mg/mL injection 12.5 mg 12.5 mg, intravenous, Administer over 1 Minutes, Every 5 min PRN, itching, other, For Nausea, administer 25 mg IV., Starting on Thu09/19/22 at 0804, For 4 doses, Phase I, Max cumulative dose 50 mg., Indications: Itching fentaNYL (SUBLIMAZE) preservative free injection 25 mcg 25 mcg, intravenous, Every 5 min PRN, 2nd line for pain, Use Fentanyl as 1st line medication for extremely severe pain for outpatients, and follow with oral pain medication., Starting on Thu09/19/22 at 0804, For 4 doses, Phase I, Use as [...] min PRN, high blood pressure, Starting on Thu09/19/22 at 0804, Phase I, Max cumulative dose 20 mg. [...] and follow with Oral meds., Starting on Thu09/19/22 at 0804, For 2 doses, Phase I, May administer TWO pills together if pain moderate to severe and patient able to tolerate PO meds, after consulting with Anesthesiologist., Indications: Pain HYDROmorphone (DILAUDID) injection 0.2 mg 0.2 mg, intravenous, Administer over 2 Minutes, Every 5 min PRN, 1st line for pain, Use as 1st line pain med for inpatients or for patients with extremely severe pain., Starting on Thu09/19/22 at 0804, Phase I, Use as first line pain medication for inpatients. May use as first line medication for outpatients with extremely severe pain, history of opioid tolerance, or history of Chronic Pain with opioid tolerance, after consulting with Anesthesiologist. Inform anesthesiologist when dose reaches 2 mg for inpatients or 1 mg for outpatients., Indications: Chronic Pain with Opioid Tolerance, Pain, Severe Pain with Opioid Tolerance labetaloL (NORMODYNE,TRANDATE) injection 5 mg 5 mg, intravenous, Every 5 min PRN, high blood pressure, Starting on Thu09/19/22 at 0804, For 4 doses, Phase I, Max cumulative dose 20 mg. Dose if systolic blood pressure greater than 180 AND HR greater than 70. meperidine (DEMEROL) preservative free injection 12.5 mg 12.5 mg, intravenous, Administer over 5 Minutes, Every 10 min PRN, shivering, Starting on Thu09/19/22 at 0804, For 2 doses, Phase I, Max cumulative dose 25 mg., Indications: Shivering naloxone (NARCAN) 0.4 mg/mL injection 0.04-0.4 mg 0.04-0.4 mg, intravenous, Once as needed, other, excessive sedation/respiratory depression, Starting on Thu09/19/22 at 0804, For 1 dose, Phase I, Dilute 0.4 [...] Once as needed, nausea, vomiting, Starting on Thu09/19/22 at 0804, For 1 dose, Phase I, Proceed to prochlorperazine if ondansetron has been given within the last 6 hours. prochlorperazine (COMPAZINE) injection 5 mg 5 mg, intravenous, Administer over 2 Minutes, Once as needed, nausea, vomiting, Starting on Thu09/19/22 at 0804, For 2 doses, Phase I, If nausea/vomiting not relieved by ondansetron within 30 minutes or if ondansetron has been given within the last 6 hours. May repeat in 15 minutes of nausea not relieved. documented in this encounter Orders Medications Ordered That Elmo ht Not Have Been Administered Count Last Ordered Date First Ordered Date acetaminophen (TYLENOL) tablet 500 mg 1 12/2022 Carrier Fluids for Secondary Infusion - 0.9% Sodium Chloride 1 09/19/2022 diphenhydrAMINE (BENADRYL) 5 0 mg/mL injection 12.5 mg 1 09/19/2022 famotidine (PEPCID) injection 20 mg 09/19 fentaNYL (SUBLIMAZE) preserv ative free injection 25 mcg 1 09/19/2022 hydrALAZINE (APRESOLINE) injection 5 mg 1 0 09/19/2022 HYDROcodone-acetaminophen (N ORCO) 5-325 mg per tablet 1 tablet 1 09/19/2022 HYDROmorphone (DILAUDID) injection 0.2 mg 1 09/19/2022 labetaloL (NORMODYNE,TRANDAT E) injection 5 mg 1 09/19/2022 Lactated Ringer's (LR) infusion lidocaine PF (XYLOCAINE) 10 mg/mL (1 %) preservative free injection 2-10 mg 1 09/19/2022 meperidine (DEMEROL) preserv ative free injection 12.5 mg 1 09/19/2022 naloxone (NARCAN) 0.4 mg/mL injection 0.04-0.4 mg 1 09/19/2022 ondansetron (ZOFRAN) injection 4 mg 1 09/19 prochlorperazine (COMPAZINE) injection 5 mg 1 09/19/2022 scopolamine patch 72 hour 1 patch 1 023 sodium chloride 0.9% flush 0.5-20 mL 2 12/2022 Discharge Count Last Ordered Date First Orde red Date DISCHARGE PATIENT 1 09/19/2022 documented in this encounter Care Teams Geodetic Technician Relationship Specialty Start Date End Date Sylvia Dawson PA [address] [place] [address] PCP - General Internal Medicine 01/05/20 Erica Rodrigues MD [address] [place] [address] Radiation Oncologist Radiation Oncology 10/25/18 Gasper Kaba MD [address] [place] [address] Surgeon Surgical Oncology 10/25/18 Brandy Aguirre, TELEVISION HOST [address] [place] [address] Nurse Practitioner Certified Clinical Nurse Specialist 10/25/18 Jo-Ann Morrow, PhD [address] [place] [address] Nurse Practitioner Radiation Oncology 10/25/18 Christina Louis NP [address] [place] [address] Nurse Practitioner Medical Oncology 10/25/18 documented as of this encounter
--- OUTSIDE RECORDS SUMMARY | 2024-04-24 05:50 | XMS_ITS | Encounter Summary ---
Author Organization [facility] Address [address] [place] [address] Phone Care Team Providers Care Department Of Natural Resources Officer Name Role Phone Erica Rodrigues MD Unavailable Gasper Kaba MD Unavailable Brandy Aguirre IRRIGATION SUPERVISOR Unavailable [phone] Jo-Ann Morrow PhD Unavailable [phone] Christina Louis INNER TUBE INSERTER Unavailable [phone] Sylvia Dawson Primary Care Provider [phone] Encounter Details Date Type Department Care Team (Late st Contact Info) Description 10/07/2022 Telephone [facility] Neurosurgery [address] [facility] Advanced Medicine 6th [place] [address] [place] [address] Lizzie Green, INNER TUBE INSERTER [address] [place] [address] Social History Tobacco Use Types Packs/Day Years [...] on file 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 It could be migraine or variants of, but just want to check. Last week, I had an episode where the top half of my visual field in both eyes was darkened. It reminded me of when you get up too quickly and have orthostatic hypotension. I also felt a bit heavy in the head. It lasted prob <1-2'. I've had a couple episodes of scintillating scotoma that I've had with migraines in the past, also both eyes, followed by a headache. Two days ago, I had a darkened shadow in my lower right visual field in the right eye. It probably lasted 20-30 minutes. No other sx. Today, I've had a dark patch in the center of my visual field, also OD. It lasted ~5 minutes and cleared. But now my right vision feels off. I've looked at an Amsler grid, but see no apparent changes. I had a vitrectomy OD last week, but these sx feel more neurological. Any suggestions? Thanks! MARTHA Pt saw ophtho and was RX eye drops. We will continue to monitor before r/s brillinta. She will continue to keep us updated. We will refer to [facility] for headache management. documented in this encounter Plan of Treatment Not on file documented as of this encounter Visit Diagnoses Not on filedocumented in this encounter Care Teams Department Of Natural Resources Officer Relationship Specialty Start Date End Date Sylvia Dawson PA [address] [place] [address] PCP - General Internal Medicine 01/05/20 Erica Rodrigues MD [address] [place] [address] Radiation Oncologist Radiation Oncology 10/25/18 Gapser Kaba MD [address] [place] [address] Surgeon Surgical Oncology 10/25/18 Brandy Aguirre, IRRIGATION SUPERVISOR [address] [place] [address] Nurse Practitioner Certified Clinical Nurse Specialist 10/25/18 Jo-Ann Morrow, PhD [address] [place] [address] Nurse Practitioner Radiation Oncology 10/25/18 Christina Louis NP [address] [place] [address] Nurse Practitioner Medical Oncology 10/25/18 documented as of this encounter
--- OUTSIDE RECORDS SUMMARY | 2024-04-24 05:50 | XMS_ITS | Encounter Summary ---
Author Organization [facility] Address [address] [place] [address] Phone Care Team Providers Care Funeral Greeter Name Role Phone Erica Rodrigues MD Unavailable Gasper Kaba MD Unavailable Brandy Aguirre MANUGRAPHER Unavailable [phone] Jo-Ann Morrow PhD Unavailable [phone] Christina Louis CASE REVIEWER Unavailable [phone] Sylvia Dawson Primary Care Provider [phone] Encounter Details Date Type Department Care Team (Late st Contact Info) Description 08/05/2022 Telephone [facility] Neurosurgery [address] [facility] Advanced Medicine 6th [place] [address] [place] [address] Sophia Durbin, BRODIE Social History Tobacco Use Types Packs/Day Years [...] on file 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 Gender Identity Not on file Sexual Orientation Not on file 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 on file Not on file Not on file documented as of this encounter Miscellaneous Notes * Telephone Encounter - Sophia Garzon RN - 08/05/2022 2:03 PM CDT Per JWO OV: -plan for angiogram in early December: patient reports any day works for her documented in this encounter Plan of Treatment Not on file documented as of this encounter Visit Diagnoses Not on filedocumented in this encounter Care Teams Funeral Greeter Relationship Specialty Start Date End Date Sylvia Dawson PA [address] [facility] [address] [place] [address] PCP - General Internal Medicine 01/05/20 Erica Rodrigues MD [address] [facility] [address] [place] [address] Radiation Oncologist Radiation Oncology 10/25/18 Gasper Kaba MD [address] [facility] [address] [place] [address] Surgeon Surgical Oncology 10/25/18 Brandy Aguirre CNS [address] [place] [address] Nurse Practitioner Certified Clinical Nurse Specialist 10/25/18 Jo-Ann Morrow, PhD [address] [facility] [address] [place] [address] Nurse Practitioner Radiation Oncology 10/25/18 Christina Louis NP [address] [facility] [address] [place] [address] Nurse Practitioner Medical Oncology 10/25/18 documented as of this encounter
--- OUTSIDE RECORDS SUMMARY | 2024-04-24 05:50 | XMS_ITS | Encounter Summary ---
Author Organization [facility] [facility] Address [address] [place] [address] Phone Care Team Providers Care Wagon Driver Name Role Phone Erica Rodrigues MD Unavailable Gasper Kaba MD Unavailable [phone] Brandy Aguirre MAP AND CHART MOUNTER Unavailable [phone] Jo-Ann Morrow PhD Unavailable [phone] Christina Louis ACCESS COORDINATOR Unavailable [phone] Sylvia Dawson Primary Care Provider [phone] Encounter Details Date Type Department Care Team (Late st Contact Info) Description 10/16/2022 Telephone [facility] ENT [facility] Advanced Medicine 11th [place] [address] [place] [address] Luis F Roque Social History Tobacco Use Types Packs/Day Years [...] on file 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 Pereyra. Yesika Mandujano wants to hold off for now. She has an appt on 10/21/22 to get an oral appliance and will trial that and call to set up surgery if it does not improve her JOSE. I made her aware her auth is valid until 04/05/23. She stated if she is not having improvement, shewould be calling sooner than Mar. documented in this encounter Plan of Treatment Not on file documented as of this encounter Visit Diagnoses Not on filedocumented in this encounter Care Teams Wagon Driver Relationship Specialty Start Date End Date Sylvia Dawson PA [address] [facility] [address] [place] [address] PCP - General Internal Medicine 01/05/20 Erica Rodrigues MD [address] [place] [address] Radiation Oncologist Radiation Oncology 10/25/18 Gasper Kaba MD [address] [place] [address] Surgeon Surgical Oncology 10/25/18 Brandy Aguirre CNS [address] [facility] [address] [place] [address] Nurse Practitioner Certified Clinical Nurse Specialist 10/25/18 Jo-Ann Morrow, PhD [address] [facility] [address] [place] [address] Nurse Practitioner Radiation Oncology 10/25/18 Christina Louis, ACCESS COORDINATOR [address] [facility] [address] [place] [address] Nurse Practitioner Medical Oncology 10/25/18 documented as of this encounter
--- OUTSIDE RECORDS SUMMARY | 2024-04-24 05:50 | XMS_ITS | Encounter Summary ---
Author Organization [facility] Address [address] [place] [address] Care Team Providers Care Roving Carrier Name Role Phone Erica Rodrigues MD Unavailable Gasper Kaba MD Unavailable Brandy Aguirre Unavailable Jo-Ann Morrow PhD Unavailable [phone] Christina Louis CEO NA Unavailable [phone] Sylvia Dawson Primary Care Provider [phone] Reason for Referral * Sleep Medicine (Routine) - Closed Specialty Diagnoses / Procedures Referred By Niranjan farrell Referred To Contact Diagnoses Obstructive sleep apnea Procedures Portable/Home Sleep Study Douglas Acosta MD [address] [address] Phone: tel: fax: [facility] [address] [place] [address] Phone: tel: fax: Referral ID Status Reason Start Date Expiration Date Visits Re quested Visits Authorized [id number] Closed 12/08/2022 01/07/2024 1 1 Reason for Visit * Sleep Medicine (Routine) - Closed Specialty Diagnoses / Procedures Referred By Mazinernestina t Referred To Contact Diagnoses Obstructive sleep apnea Procedures Portable/Home Sleep Study Douglas Acosta MD [address] 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 Gender Identity Not on file Sexual Orientation Not on file 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 on file Not on file [...] 1 tablet by mouth every morning vit A-N-xdqiyp-zinc-lut ein (PreserVision Lutein) 226-90-0.8-5 mg capsuleIndications: Eye support Take 1 tablet by mouth 2 (two) times a day atenoloL (TENORMIN) 25 mg tablet TAKE 1 TABLET(25 MG) BY MOUTH DAILY 90 tablet 1 3 03/19/20 23 butalbital-acetamin wlhdb-yajhugha-hpkt ine (FIORICET WITH CODEINE) 65-188-97-30 mg per capsuleIndications: Nonintractable headache, unspecified chronicity pattern, unspecified headache type TAKE 1 CAPSULE BY MOUTH EVERY 4 HOURS NEEDED FOR HEADACHE 20 capsule 3 04/01/20 23 difluprednate (DUREZOL) 0.05 % dropsIndications:Cy stoid macular edema of both eyes Administer 1 drop into the right eye 4 (four) times a day 10 mL 11 3 12/19/19 23 ezetimibe (ZETIA) 10 mg tabletIndications:M ixed [...] documented in this encounter Miscellaneous Notes * Addendum Note - Douglas Acosta MD - 12/16/2022 1:00 PM CDTEncounter addended by: Douglas Acosta MD on: 12/17/2022 11:29 AM Actions taken: Charge Capture section accepted documented in this encounter Plan of Treatment Not on file documented as of this encounter Procedures Procedure Name Priority Date/Time Associated Diagnosis Comments PORTABLE/HOME SLEEP STUDY Routine 12/16/2022 12:59 PM CDT Obstructive sleep apnea documented in this encounter Results * Portable/Home Sleep Study (12/16/2022 12:59 PM CDT) us Douglas Acosta MD SLEEP CENTER ORDERABLES F inal Result [facility] SLEEP [facility] [address] [place] [address] documented in this encounter Visit Diagnoses Diagnosis Obstructive sleep apnea Obstructive sleep apnea (adult) (pediatric) documented in this encounter Care Teams Roving Carrier Relationship Specialty Start Date End Date Sylvia Dawson PA [address] [place] [address] PCP - General Internal Medicine 01/05/20 Erica Rodrigues MD [address] [place] [address] Radiation Oncologist Radiation Oncology 10/25/18 Gasper Kaba MD [address] [place] [address] Surgeon Surgical Oncology 10/25/18 Brandy Aguirre CNS [address] [place] [address] Nurse Practitioner Certified Clinical Nurse Specialist 10/25/18 Jo-Ann Morrow, PhD [address] [place] [address] Nurse Practitioner Radiation Oncology 10/25/18 Christina Louis CEO NA [address] [place] [address] Nurse Practitioner Medical Oncology 10/25/18 documented as of this encounter
--- OUTSIDE RECORDS SUMMARY | 2024-04-24 05:50 | XMS_ITS | Encounter Summary ---
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 Operating [facility] [address] [place], [place] [id number] Fadi Mckeon MD [address] [place] [address] Jimena Green NP [address] [facility] [address] [place], [place] [id number] Anesthesia Record Procedure Summary Procedure Name Responsible Anesthesiologist Anesthesia Start Time Anesthesia Stop Time VITRECTOMY - 25 GAUGE (Right: Eye) Fadi Mckeon MD 09/23/22 1300 09/23/22 1347 Events Date Time Event Comment 09/23/2022 1149 In Preop 1229 1300 An Start 1305 In Room 1305 An Start Data 1307 Start Supplemental O2 1309 An Induction The patient was reevaluated immediately before moderate or deep sedation use and before anesthesia induction. 1310 Anesthesia Ready 1313 Proc Start 1319 Incision Start 1334 Proc Fin 1338 Out of Room 1339 an stop data 1347 Handoff to RN I completed my handoff [...] Patient disposition at the time of handoff: PACU 1347 An Stop Meds Name Total midazolam PF 1 mg lidocaine (cardiac) syringe 2 % 40 mg propofol 60 mg fentaNYL 100 mcg Lactated Ringer's (LR) infusion 300 mL * Agents Name O2% N2O O2 * Blood No blood administrations on file. Lines, Drains, and Airways Type Details Placement Removal Peripheral IV Placement Date: 09/23/22; Placement Time: 1212; Catheter Size: 22 G; Orientation: Left, Posterior; Location: Hand; Site Prep: Chlorhexidine; Technique: Anatomical landmarks; Inserted by: azul CALLOWAY; Insertion Attempts: 1; Patient Tolerance: Tolerated well; Removal Date: 09/23/22; Removal Time: 1429 09/23/22 1212 by Azul Whalen RN 09/23/22 1429 by Rosie Causey, BRODIE RETIRED Surgical Site 09/23/22; 1326; Ri ght; Eye; 03/15/24 (Retired LDA, Removed/Completed by [facility] with LDA Utility); 1213 (Retired LDA, Removed/Completed by [facility] with LDA Utility) 09/23/22 1326 by Olga Lorenzo RN 03/15/24 1213 by Discharge Provider, Automatic documented in this encounter Social History Tobacco [...] on file 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 Gender Identity Not on file Sexual Orientation Not on file 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 Not on file Not on file documented as of this encounter OR Notes * Anesthesia Postprocedure Evaluation - Kelvin Michelle MD DDS - 09/23/2022 2:12 PM CDT Patient: Yesika Denney Procedure Summary Date: 09/23/22 Room / Location: [facility] CAM OR POD 4 ROOM M / [facility] CAM OR POD 4 Anesthesia Start: 1300 Anesthesia Stop: 1347 Procedures: VITRECTOMY - 25 GAUGE (Right: Eye) EXCHANGE - AIR/FLUID (Right: Eye) Diagnosis: Cystoid macular edema of both eyes (Cystoid macular edema of both eyes [H35.353]) Surgeons: Jessy Adame MD Responsible Provider: Fadi Mckeon MD Anesthesia Type: MAC ASA Status: 3 Anesthesia Type: MAC Last vitals BP 114/63 Pulse 51 Temp 36.4 ??C (97.5 ??F) (Temporal) Resp 13 SpO2 94% Anesthesia Post Evaluation Patient location during evaluation: PACU Patient participation: complete - patient participated Level of consciousness: fully awake Pain management: adequate Airway patency: adequate Cardiovascular status: acceptable Respiratory status: acceptable Hydration status: acceptable Pt is: normothermic No notable events documented. * Anesthesia Preprocedure Evaluation - Fadi Mckeon MD - 09/02/2022 11:48 AM CDT Images from the original note were not included. [facility] for Preoperative Assessment and Planning Preoperative Evaluation Record Evaluation type/location: TPAP from [facility] Planned procedure site: [facility] CAM OR (Pod 4) Date: 09/02/22 NOTE: [...] aneurysm, bilateral carotid artery dissections s/p carotid [id number] and web device placement in 06/2022 now [...] - sinus tachycardia. 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 De León, last OVN 04/17/22 Respiratory [...] obesity (BMI >30) and transplanted organ Comments: [facility] rheumatology [facility] 03/2022 Functional Capacity Functional capacity: 4-6 [...] Patient instructions were provided electronically sent via eCullet. Patient verbalized understanding of preoperative plan. + [...] Left 2002 benign ??? BREAST LUMPECTOMY Right 2015 Invasive ductal carcinoma ??? CEREBRAL ANEURYSM REPAIR [...] Ectopic Multiple Live Births 3 Obstetric Comments Wool Classer history: 3 para 3, 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 No history fertility medications. She used oral contraceptives in the past. One does progesterone 08/2014. She experienced menopause approximately age 53. Allergies Allergen Reactions ??? Adhesive Hives Paper tape OK ??? Cyclizine Other (See comments) and Hallucinations Marezine about 1982 Reaction: Urinary retention Med List Status: Nurse [...] mg total) by mouth every morning tachycardia nyliisoctq-trdaewyyppryk-meccqlai-codeine (FIORICET WITH CODEINE) 94-471-08-30 mg per capsule -- 04/15/22 -- Sylvia [...] mg total) by mouth every morning vit S-L-qnipjn-zinc-lutein (PreserVision Lutein) 226-90-0.8-5 mg capsule -- -- -- Provider, MD Ronda No current facility-administered medications for this encounter. Current Outpatient Medications: ??? acetaminophen (TYLENOL) 325 mg tablet ??? aspirin 81 mg enteric coated tablet ??? atenoloL (TENORMIN) 25 mg tablet ??? ldohhdmaqa-vmchdcxfmvyyv-kewgdhnf-codeine (FIORICET WITH CODEINE) 15-519-19-30 mg per capsule ??? famotidine-Ca carb-mag hydrox [...] valACYclovir (Valtrex) 500 mg tablet ??? vit D-E-wxenad-zinc-lutein (PreserVision Lutein) 226-90-0.8-5 mg capsule ??? ezetimibe [...] The full scanned/data report is available in [facility]. labeled MONITOR STRIPS PDF . PT: No [...] Patient's current state is cooperative and interactive. Anesthesia Plan ASA 3 My patient is approved for the Anesthesia Controlled Medication protocol when under care of a TELEVISION PRODUCER Planned anesthesia: MAC Induction: Induction: intravenous. Postoperative Plan: No plan for postoperative opioid use. No postoperative mechanical ventilation intended. Patient's planned disposition post procedure is Outpatient. No trial extubation planned. Informed Consent: Discussed plan with TELEVISION PRODUCER. Anesthesia plan and risks discussed with patient. Consent and Attending signature: I and/or my designee have discussed the anesthesia plan, benefits, possible alternatives, parental presence at time of induction (if indicated), and clinically relevant risks that may include dental injury, unintentional awareness, and/or other complications. The patient and/or parent/legal guardian understand, and agree to proceed. All questions answered. documented in this encounter Plan of Treatment Not on file documented as of this encounter Visit Diagnoses Not on filedocumented in this encounter Administered Medications Inactive Administered Medications - up to 3 most recent administrations Medication Order MAR Action Action Date Dose Rate Site fentaNYL (SUBLIMAZE) preservative free injection intravenous, As needed, Starting on Thu09/23/22 at 1306, Anesthesia Intra-op Given 09/23/2022 1:27 PM CDT 25 mcg Given 09/23/2022 1:11 PM CDT 25 mcg Given 09/23/2022 1:09 PM CDT 25 mcg Lactated Ringer's (LR) infusion 30 mL/hr, intravenous, Continuous, Starting on Thu09/23/22 at 1230, Pre-Op Restarted 09/23/2022 1:01 PM CDT Rate/Dose Verify 09/23/2022 1:00 PM CDT 30 mL/h r New Bag 09/23/2022 12:14 PM CDT 30 mL/hr 30 mL/hr lidocaine (cardiac) (XYLOCAINE) preservative free injection intravenous, As needed, Starting on Thu09/23/22 at 1309, Anesthesia Intra-op, Indications: Ventricular ArrhythmiasIndications:Ventricular Arrhythmias Given 09/23/2022 1:09 PM CDT 40 mg midazolam (VERSED) 2 mg/2 mL preservative free injection intravenous, Administer over 2 Minutes, As needed, Starting on Thu09/23/22 at 1301, Anesthesia Intra-op Given 09/23/2022 1:05 PM CDT 0.5 mg Given 09/23/2022 1:01 PM CDT 0.5 mg propofoL (DIPRIVAN) 10 mg/mL IV intravenous, As needed, Starting on Thu09/23/22 at 1309, Anesthesia Intra-op Given 09/23/2022 1:10 PM CDT 10 mg Given 09/23/2022 1:09 PM CDT 50 mg documented in this encounter Care Teams Federal Mediator Relationship Specialty Start Date End Date Sylvia Dawson PA [address] [place] [address] PCP - General Internal Medicine 01/05/20 Erica Rodrigues MD [address] [place] [address] Radiation Oncologist Radiation Oncology 10/25/18 Gasper Kaba MD [address] [facility] [address] [place] [address] Surgeon Surgical Oncology 10/25/18 Brandy Aguirre, CARINA [address] [facility] [address] [place] [address] Nurse Practitioner Certified Clinical Nurse Specialist 10/25/18 Jo-Ann Morrow, PhD [address] [facility] [address] [place] [address] Nurse Practitioner Radiation Oncology 10/25/18 Christina Louis, WARP DRAWER [address] [facility] [address] [place] [address] Nurse Practitioner Medical Oncology 10/25/18 documented as of this encounter
--- OUTSIDE RECORDS SUMMARY | 2024-04-24 05:50 | XMS_ITS | Encounter Summary ---
Author Organization [facility] Address [address] [place] [address] Phone Care Team Providers Care Commercial Photographer Name Role Phone Erica Rodrigues MD Unavailable Gasper Kaba MD Unavailable [phone] Brandy Aguirre NURSING PROGRAM CHAIR Unavailable Jo-Ann Morrow PhD Unavailable [phone] Christina Louis GUITAR REPAIR TECHNICIAN Unavailable [phone] Sylvia Dawson Primary Care Provider [phone] Encounter Details Date Type Department Care Team (Late st Contact Info) Description 10/08/2022 Telephone [facility] Neurosurgery [facility] Office Building [address] [place] [address] Lizzie Green, JENNI [address] [place] [address] Social History Tobacco Use Types Packs/Day Years [...] on file 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 Moss, we will refer her to Dr. Mcgee at [facility] for headache management. Referral placed. documented in this encounter Plan of Treatment Not on file documented as of this encounter Visit Diagnoses Diagnosis Cerebral aneurysm, nonruptured- Primary Chronic tension-type headache, not intractable Chronic tension type headache documented in this encounter Care Teams Commercial Photographer Relationship Specialty Start Date End Date Sylvia Dawson PA [address] [facility] [address] [place] [address] PCP - General Internal Medicine 01/05/20 Erica Rodrigues MD [address] [facility] [address] [place] [address] Radiation Oncologist Radiation Oncology 10/25/18 Gasper Kaba MD [address] [facility] [address] [place] [address] Surgeon Surgical Oncology 10/25/18 Brandy Aguirre CNS [address] [facility] [address] [place] [address] Nurse Practitioner Certified Clinical Nurse Specialist 10/25/18 Jo-Ann Morrow, PhD [address] [facility] [address] [place] [address] Nurse Practitioner Radiation Oncology 10/25/18 Christina Louis NP [address] [facility] [address] [place] [address] Nurse Practitioner Medical Oncology 10/25/18 documented as of this encounter
--- OUTSIDE RECORDS SUMMARY | 2024-04-24 05:50 | XMS_ITS | Encounter Summary ---
Author Organization [facility] Address [address] [place] [address] Phone Care Team Providers Care Leather Tanner Name Role Phone Erica Rodrigues MD Unavailable Gasper Kaba MD Unavailable Brandy Aguirre INFORMATION SECURITY Unavailable [phone] Jo-Ann Morrow PhD Unavailable [phone] Christina Louis POWER GENERATION TECHNICIAN Unavailable [phone] Sylvia Dawson Primary Care Provider [phone] Reason for Referral * Diagnostic Imaging (Routine) - Closed Specialty Diagnoses / Procedures Referred By Contac t Referred To Contact Diagnoses Cystoid macular edema of both eyes Procedures OCT, Retina - OU - Both Eyes Jessy Adame MD [address] [facility] [address] [place] [address] Phone: tel: fax: [facility] (All Locations) Referral ID Status Reason Start Date Expiration Date Visits Re quested Visits Authorized [id number] Closed 10/16/2022 11/15/2023 1 1 Reason for Visit * Reason Comments Cystoid macular edema of both eyes Encounter Details Date Type Department Care Team (Late st Contact Info) Description 10/16/2022 9:10 AM CDT Office Visit [facility] Ophthalmology [address] [facility] 6th [place] [id number] Jessy Adame MD [address] [facility] [address] [place], [place] [id number] Cystoid macular edema of both eyes (Primary [...] file 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 Gender Identity Not on file Sexual Orientation Not on file 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 Not on file Not on file Not on file documented as of this encounter Ordered Prescriptions Prescription Sig Dispense Quantity Refills Last Filled Start Date End Date difluprednate (DUREZOL) 0.05 % dropsIndications:C ystoid macular edema of both eyes Administer 1 drop into the right eye 4 (four) times a day 10 mL 11 10/16/2022 3 documented in this encounter Progress Notes * Jessy Adame MD - 10/16/2022 9:10 AM CDT ASSESSMENT/ORDERS/PROCEDURES PERFORMED TODAY Chief Complaint Patient presents with Cystoid macular edema of both eyes HPI Add on, S/P PPV OD 09/23/22 CME OU, scleritis OS Yesterday a.m. woke up with distorted VA OD. Ocular meds- PF QID OD, Methotrexate Last edited by Mirtha Fisher on 10/16/2022 9:29 AM. Assessment/Plan Diagnoses and all orders for [...] will re-evaluate in roughly 2 weeks time. Orders: - OCT, Retina - OU - Both Eyes - difluprednate (DUREZOL) 0.05 % drops; Administer 1 drop into the right eye 4 (four) times a day OCT, Retina - OU - Both Eyes Right Eye Quality was good. Scan locations included subfoveal. Progression has been stable. Findings include intraretinal fluid. Left Eye Quality was good. Scan locations included subfoveal. Progression has been stable. Notes No ME OS The signs and symptoms of retinal detachment, tears, infection, elevated intra- ocular pressure werereviewed with the patient. Patient knows to call should they have any of the symptoms. PLAN FOR NEXT VISIT Follow-up and Dispositions Return in about 2 weeks (around 10/30/2022) for Dilated exam OU, OCT OU. documented in this encounter Miscellaneous Notes * Assessment & Plan Note - Jessy Adame MD - 10/16/2022 10:32 AM CDT Associated Problem(s): Cystoid macular edema [...] will re-evaluate in roughly 2 weeks time. documented in this encounter Plan of Treatment Not on file documented as of this encounter Procedures Procedure Name Priority Date/Time Associated Diagnosis Comments OCT, RETINA - OU - BOTH EYES Routine 10/16/2022 10:31 AM CDT Cystoid macular edema of both eyes documented in this encounter Results * OCT, Retina - OU - Both Eyes (10/16/2022 10:31 AM CDT) Anatomical Region Laterality Modality Head Optical Coherenc e Tomography Narrative 10/16/2022 10:31 AM CDT Right Eye Quality was good. Scan locations included subfoveal. Progression has been stable. Findings include intraretinal fluid. Left Eye Quality was good. Scan locations included subfoveal. Progression has been stable. Notes No ME OS us Jessy Adame MD OPHTH TOMOGRAPHY Final Res ult documented in this encounter Visit Diagnoses Diagnosis Cystoid macular edema of both eyes- Primary Cystoid macular degeneration of retina documented in this encounter Discontinued Medications Medication Sig Discontinue Reason Start Date End Da te prednisoLONE acetate (PRED FORTE) 1 % ophthalmic suspensionIndications:C ystoid macular edema of both eyes,Scleritis and episcleritis of left eye Administer 1 drop into the right eye 4 (four) times a day Alternate therapy 09/29/2022 10/16/2022 documented as of this encounter Eye Exam Visual Acuity (Snellen - Linear) Right eye Left eye Dist sc 20/20 -1 20/25 Tonometry (Tonopen, 9:32 AM) Right eye Left eye Pressure 13 13 Pupils Dark Light Shape React APD Right eye 4 3 Round Brisk None Left eye 4 3 Round Brisk None Neuro/Psych Oriented x3: Yes Mood/Affect: Normal Dilation Both eyes: 1.0% Mydriacyl @ 9:29 AM External Exam Right eye Left eye [...] Periphery Cystoid macular edema attached Care Teams Leather Tanner Relationship Specialty Start Date End Date Sylvia Dawson PA [address] [facility] [address] [place] [address] PCP - General Internal Medicine 01/05/20 Erica Rodrigues MD [address] [place] [address] Radiation Oncologist Radiation Oncology 10/25/18 Gasper Kaba MD [address] [place] [address] Surgeon Surgical Oncology 10/25/18 Brandy Aguirre CNS [address] [place] [address] Nurse Practitioner Certified Clinical Nurse Specialist 10/25/18 Jo-Ann Morrow, PhD [address] [place] [address] Nurse Practitioner Radiation Oncology 10/25/18 Christina Louis POWER GENERATION TECHNICIAN [address] [place] [address] Nurse Practitioner Medical Oncology 10/25/18 documented as of this encounter
--- OUTSIDE RECORDS SUMMARY | 2024-04-24 05:50 | XMS_ITS | Encounter Summary ---
Author Organization [facility] Address [address] [place] [address] Phone Care Team Providers Care Supervisor Housecleaner Name Role Phone Erica Rodrigues MD Unavailable Gasper Kaba MD Unavailable Brandy Aguirre LOGISTICS PROGRAM MANAGER Unavailable [phone] Jo-Ann Morrow PhD Unavailable [phone] Christina Louis CASING RUNNER Unavailable [phone] Sylvia Dawson Primary Care Provider [phone] Reason for Visit * Reason Comments Pain Encounter Details Date Type Department Care Team (Late st Contact Info) Description 09/29/2022 11:30 AM CDT Office Visit [facility] Ophthalmology [address] [facility] [address] [place] [address] Jessy Adame MD [address] [facility] [address] [place] [address] Cystoid macular edema of both eyes (Primary Dx); Scleritis and episcleritis of left eye Social History Tobacco Use Types Packs/Day [...] on file 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 Gender Identity Not on file Sexual Orientation Not on file 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 on file Not on file Not on file documented as of this encounter Ordered Prescriptions Prescription Sig Dispense Quantity Refills Last Filled Start Date End Date prednisoLONE acetate (PRED FORTE) 1 % ophthalmic suspensionIndicati ons:Cystoid macular edema of both eyes,Scleritis and episcleritis of left eye Administer 1 drop into the right eye 4 (four) times a day 10 mL 11 09/29/2022 3 documented in this encounter Progress Notes * Jessy Adame MD - 09/29/2022 11:30 AM CDT ASSESSMENT/ORDERS/PROCEDURES PERFORMED TODAY Chief Complaint Patient presents with Pain HPI POW #1 S/P PPV OD (09/23/22) Pt has eye pain in the Right Eye that runs along the top and temporal side of the right eye. The pain comes and goes; it can get intense. (no longer having a FBS) Pt states that the vision is ok, maybe a little more blurrier Ocular meds - Tobramycin 4x/day and Predforte 4x/day Last edited by Madina Vitale on 09/29/2022 11:58 AM. Assessment/Plan Diagnoses and all orders for this visit: Cystoid macular edema of both eyes (Primary) Assessment & Plan: Six days following vitrectomy air-fluid exchange to [...] for the scleritis in right eye today. 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 We will seek Dr. Martinez advice regarding treatment as she managed that episode in the left in 2018. Orders: - prednisoLONE acetate (PRED FORTE) 1 % ophthalmic suspension; Administer 1 drop into the right eye4 (four) times a day The signs and symptoms of retinal detachment, tears, infection, elevated intra- ocular pressure werereviewed with the patient. Patient knows to call should they have any of the symptoms. PLAN FOR NEXT VISIT Follow-up and Dispositions Return in about 1 week (around 10/06/2022) for Dilated exam OD. 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 We will seek Dr. Martinez advice regarding treatment as she managed that episode in the left in 2018. * Assessment & Plan Note - Jessy Adame MD - 09/29/2022 12:27 PM CDT Associated Problem(s): Cystoid macular edema of both eyes Six days following vitrectomy air-fluid exchange to [...] for the scleritis in right eye today. 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 4x/day for 1 week, 3x/day for 1 week, 2x/day for 1 week, 1x/day for week, then stop. Right Eye. Reorder 09/24/2022 09/29/2022 documented as of this encounter Eye Exam Visual Acuity (Snellen - Linear) Right eye Left eye Dist sc 20/30 +2 Dist ph sc 20/25 Tonometry (Tonopen, 12:10 PM) Right eye Left eye Pressure 12 14 Pupils Dark Light Shape React APD Right eye 4 3.5 Round Minimal None Left eye 4 3 Round Brisk None Visual Grossman Right eye Left eye Full Full Extraocular Movement Right eye Left eye Full Full Neuro/Psych Oriented x3: Yes Dilation Right eye: 1.0% Mydriacyl @ 12:11 PM Slit Lamp Exam Right eye Left eye Lids/Lashes Normal Normal Conjunctiva/Sclera sup temp injected sclera Whit e and quiet Cornea Clear Clear Anterior Chamber Deep and quiet Deep and quiet Iris Round and reactive Round and erasmo ctive Lens Posterior chamber intraocular le ns Fundus Exam Right eye Left eye Posterior Vitreous s/p ppv, no cell Disc Normal C/D Ratio 0.3 Macula Normal Vessels Normal Periphery Normal Care Teams Supervisor Housecleaner Relationship Specialty Start Date End Date Sylvia Dawson PA [address] [place] [address] PCP - General Internal Medicine 01/05/20 Erica Rodrigues MD [address] [place] [address] Radiation Oncologist Radiation Oncology 10/25/18 Gasper Kaba MD [address] [place] [address] Surgeon Surgical Oncology 10/25/18 Brandy Aguirre, LOGISTICS PROGRAM MANAGER [address] [place] [address] Nurse Practitioner Certified Clinical Nurse Specialist 10/25/18 Jo-Ann Morrow, PhD [address] [place] [address] Nurse Practitioner Radiation Oncology 10/25/18 Christina Louis, CASING RUNNER [address] [place] [address] Nurse Practitioner Medical Oncology 10/25/18 documented as of this encounter
--- OUTSIDE RECORDS SUMMARY | 2024-04-24 05:50 | XMS_ITS | Encounter Summary ---
Author Organization [facility] Address [address] [place] [address] Phone Care Team Providers Care Chlorine Operator Name Role Phone Erica Rodrigues MD Unavailable Gasper Kaba MD Unavailable [phone] Brandy Aguirre CERTIFIED LACTATION EDUCATOR Unavailable [phone] Jo-Ann Morrow PhD Unavailable [phone] Christina Louis CROP SCOUT Unavailable [phone] Sylvia Dawson Primary Care Provider [phone] Encounter Details Date Type Department Care Team (Late st Contact Info) Description 08/13/2022 Telephone [facility] Ophthalmology [address] [facility] 6th [place] [address] Celeste Gibbons, LEONELA Social History Tobacco Use Types Packs/Day Years [...] on file 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 Also, informed the patient that surgery times can change at the last minute due to urgent add on etc., to please be flexible. Reminded them as well, that they will need someone over the age of 18 accompany them to and from surgery and remain with them for the first 24hours after the procedure. Surgery Date:09/23 Arrival Time: 12 Surgery Start Time: 2 Location: [x] [address] (pod 4) [] [facility] (pod2) [] [facility] (Parents/Gaurdian aware [facility] staff will call with pre op instructions and arrival time) documented in this encounter Plan of Treatment Not on file documented as of this encounter Visit Diagnoses Not on filedocumented in this encounter Care Teams Chlorine Operator Relationship Specialty Start Date End Date Sylvia Dawson PA [address] [facility] [address] [place] [address] PCP - General Internal Medicine 01/05/20 Erica Rodrigues MD [address] [facility] [address] [place] [address] Radiation Oncologist Radiation Oncology 10/25/18 Gasper Kaba MD [address] [facility] [address] [place] [address] Surgeon Surgical Oncology 10/25/18 Brandy Aguirre CNS [address] [facility] [address] [place] [address] Nurse Practitioner Certified Clinical Nurse Specialist 10/25/18 Jo-Ann Morrow, PhD [address] [facility] [address] [facility] [address] [place] [address] Nurse Practitioner Radiation Oncology 10/25/18 Christina Louis, CROP SCOUT [address] [facility] [address] [place] [address] Nurse Practitioner Medical Oncology 10/25/18 documented as of this encounter
--- OUTSIDE RECORDS SUMMARY | 2024-04-24 05:50 | XMS_ITS | Encounter Summary ---
Author Organization [facility] Address [address] [place] [address] Phone Care Team Providers Care Manager Transit Name Role Phone Erica Rodrigues MD Unavailable Gasper Kaba MD Unavailable [phone] Brandy Aguirre PUBLICITY DIRECTOR Unavailable [phone] Jo-Ann Morrow PhD Unavailable [phone] Christina Louis AIR BRAKE MAN Unavailable Sylvia Dawson Primary Care Provider [phone] Encounter Details Date Type Department Care Team (Late st Contact Info) Description 08/05/2022 1:40 PM CDT Office Visit 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 Not on file Not on file documented as of this encounter Last Filed Vital Signs Vital Sign Reading Time Taken Comments Blood Pressure 130/82 08/05/2022 1:45 PM CDT Pulse 63 08/05/2022 1:45 PM CDT Temperature - - Respiratory Rate - - Oxygen Saturation - - Inhaled Oxygen Concentration - - Weight 63.1 kg (139 lb 3.2 oz) 08/05/2022 1:45 P M CDT Height 160 cm (5' 3 ) 08/05/2022 1:45 PM CDT Body Mass Index 24.66 08/05/2022 1:45 PM CDT documented in this encounter Progress Notes * Abdiaziz Moss MD - 08/05/2022 1:40 PM CDT Patient Name: RAVEN DENNEY Medical Record Number (MRN): [id number] Date of (): 1960 Encounter Date: 08/05/2022 PRIMARY CARE PROVIDER: Sylvia Dawson PA REFERRING PROVIDER: Sylvia Dawson PA INTERVAL HISTORY Raven Denney is a 62-year-old woman with a history of an anterior communicating artery aneurysm who is now status post web device placement. She previously underwent bilateral carotid stent placement for bilateral carotid dissections in March of 2022. She remains on dual anti-platelet therapy currently. Overall she is doing well specific complaints today VITAL SIGNS Vitals: 08/05/22 1345 BP: 130/82 Pulse: 63 Weight: 63.1 kg (139 lb 3.2 oz) Height: 160 cm (5' 3 ) PHYSICAL EXAM: Mental Status: The patient was alert and oriented to person, place and time. There was no memory deficit. There was normal language pattern, attention span and general fund of knowledge. Repetition intact, naming three out of three. Gait and Station: Gait and station steady. There was no limp or ataxia. Tandem gait was normal. Cranial Nerves: II: Visual guerrero were normal. Visual acuity was normal. III, IV and : The pupils were equal and reactive to light and accomodation. Extraocular movementswere intact. There was no ptosis or nystagmus. There was normal convergence. There was no evidence of Isis's syndrome. V:Facial sensation was normal. VII:Facial strength was normal. There was no ptosis. VIII: Hearing was intact bilaterally. IX,X: The palate elevated in the midline. There was no hoarseness, and volume was normal. XI: There was no atrophy/weakness of the sternocleidomastoid or trapezius. Shoulder elevation was symmetric. XII: The tongue protruded in the midline. There was no atrophy or fasciculation. Cerebellar: There was no nystagmus, dysmetria or dyskinesia. Voice jerrica was normal. Motor: There was no upper or lower extremity weakness, atrophy or fasciculations. There was normal tone. Deep Tendon Reflexes: The reflexes were bilaterally symmetric throughout. Babinski and Workman's signs were negative. The was no ankle clonus. Sensation: Light touch and pinprick sensation was normal REVIEW OF IMAGING: None new ASSESSMENT AND PLAN: Raven Denney is a 62-year-old woman with a history of bilateral carotid dissections status post bilateral carotid stent placement in March of 2022 and now 6 weeks status post web device placement for a anterior communicating artery aneurysm. I would like her to remain on dual antiplatelet therapy until September of 2022. After that I would occur to remain on a baby aspirin daily barring short periods of cessation for medical procedures. She will be due for a cerebral angiogram in December 2022. Thank you for allowing me to participate in the care of your patient. If you have any questions, feel free to contact me at [phone]. Sincerely, Abdiaziz Moss MD documented in this encounter Plan of Treatment Not on file documented as of this encounter Visit Diagnoses Diagnosis Cerebral aneurysm, nonruptured- Primary documented in this encounter Care Teams Manager Transit Relationship Specialty Start Date End Date Sylvia Dawson PA [address] [place] [address] PCP - General Internal Medicine 01/05/20 Erica Rodrigues MD [address] [place] [address] Radiation Oncologist Radiation Oncology 10/25/18 Gasper Kaba MD [address] [place] [address] Surgeon Surgical Oncology 10/25/18 Brandy Aguirre, PUBLICITY DIRECTOR [address] [place] [address] Nurse Practitioner Certified Clinical Nurse Specialist 10/25/18 Jo-Ann Morrow, PhD [address] [place] [address] Nurse Practitioner Radiation Oncology 10/25/18 Christina Louis NP [address] [place] [address] Nurse Practitioner Medical Oncology 10/25/18 documented as of this encounter
--- OUTSIDE RECORDS SUMMARY | 2024-04-24 05:50 | XMS_ITS | Encounter Summary ---
Author Organization [facility] [employer] [facility] Address [address] [place] [address] Phone Care Team Providers Care Motor And Chassis Inspector Name Role Phone Erica Rodrigues MD Unavailable Gasper Kaba MD Unavailable Brandy Aguirre TEST CAR DRIVER Unavailable Jo-Ann Morrow PhD Unavailable [phone] Christina Louis PASTRY COOK HELPER Unavailable [phone] Sylvia Dawson Primary Care Provider [phone] Encounter Details Date Type Department Care Team (Late st Contact Info) Description 09/25/2022 3:00 PM CDT Office Visit [facility] Rheumatology [address] 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 on file Not on file Not on file documented as of this encounter Last Filed Vital Signs Vital Sign Reading Time Taken Comments Blood Pressure 128/77 09/25/2022 2:57 PM CDT Pulse 69 09/25/2022 2:57 PM CDT Temperature 36.7 ??C (98 ??F) 09/25/2022 2:57 PM CDT Respiratory Rate - - Oxygen Saturation - - Inhaled Oxygen Concentration - - Weight 63.2 kg (139 lb 6.4 oz) 09/25/2022 2:57 P M CDT Height 160 cm (5' 3 ) 09/25/2022 2:57 PM CDT Body Mass Index 24.69 09/25/2022 2:57 PM CDT documented in this encounter Progress Notes * Patricia Martinez MD - 09/25/2022 3:00 PM CDT Rheumatology PATIENT NAME: Yesika Denney : 1960 STEVEN: 09/25/2022 Subjective Chief Complaint: F/U seronegative RA HPI: Yesika Denney is a 62 y.o. 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 Current management is MTX 20 mg weekly + SSZ 500 mg bid + HCQ 200 mg daily . She was last seen on Mar 27. Interval History: Since last visit, she was recently dx with JOSE and was placed on CPAP in Apr . She underwent stent placement in Mar for her carotid a dissections and NEISHA aneurysm. 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 Her son has fairly profound hypermobility. She herself can spontaneously sublux at the shoulders in his mild hyperextensibility but no history of dislocations. In terms of her arthritis she is doing well and has no significant morning stiffness, gelling or swelling Disease Treatment History(Reviewed/revised ): May 10 2015 -initiation of anastrazole and [...] MOUTH DAILY, Disp: 90 tablet, Rfl: 1 xbwnjivbbl-aewtouzhvduym-tutbhiur-codeine (FIORICET WITH CODEINE) [id number] mg per capsule, Take1 capsule by mouth every 4 (four) hours as needed for headaches, Disp: 20 capsule, Rfl: 0 ezetimibe (ZETIA) 10 mg [...] by mouth 2 (two) times a day, Disp:180 capsule, Rfl: 1 folic acid (FOLVITE) 1 [...] by mouth every morning, Disp: , Rfl: prednisoLONE acetate (PRED FORTE) 1 % ophthalmic suspension, One drop. 4x/day for 1 week, 3x/day for 1 week, 2x/day for 1 week, 1x/day for week, then stop. Right Eye., Disp: 10 mL, Rfl: 11 sulfaSALAzine EN (AZULFIDINE EN) 500 mg EC tablet, TAKE 2 TABLETS(1000 MG) BY MOUTH TWICE DAILY (Patient taking differently: Take 2 tablets (1,000 mg total) by mouth every morning), Disp: 360 tablet,Rfl: 0 tobramycin (TOBREX) 0.3 % ophthalmic solution, One drop to Right eye 4 times per day, Disp: 5 mL, Rfl: 2 valACYclovir (Valtrex) 500 mg tablet, Take 1 tablet (500 mg total) by mouth daily (Patient taking differently: Take 1 tablet (500 mg total) by mouth every morning), Disp: 90 tablet, Rfl: 2 vit Q-F-brusfc-zinc-lutein (PreserVision Lutein) 226-90-0.8-5 mg capsule, Take 1 tablet by mouth 2 (two) times a day, Disp: , Rfl: ticagrelor (BRILINTA) 60 mg tablet, Take 1 tablet (60 mg total) by mouth 2 (two) times a day (Patient taking differently: Take 1 tablet (60 mg total) by mouth 2 (two) times a day), Disp: 60 tablet, Rfl: 3 Physical Exam BP 128/77 Pulse 69 Temp 36.7 ??C (98 ??F) Ht 160 cm (5' 3 ) Wt 63.2 kg (139 lb 6.4 oz) LMP (LMP Unknown) BMI 24.69 kg/m?? GEN: NAD, WDWN SKIN: No rash HEENT: PEERL, Conjunctival hemorrhage os post vitrectomy EXT: No LE edema. MSK: No synovitis in a standard 28 joint count; mild hypermobility is present with 90?? at both little fingers, currently can not abduct the thumb to the wrist but in her youth she could. Hyperextension at the elbows and knees of 5?? PSYCH: Appropriate affect. Labs: Hospital Outpatient Visit on 08/06/2022 Component Date Value Ref Range Status Erythrocyte sedimentation rate 08/06/2022 15 1 - 30 mm/hr Final Lab on 08/06/2022 Component Date Value Ref Range Status Triglycerides 08/06/2022 76 <150 mg/dL Final Comment: Desirable: <150 mg/dL, fasting <175 mg/dL, non-fasting Persistently elevated triglycerides may enhance atherosclerotic cardiovascular disease. Total Cholesterol 08/06/2022 258 (H) <200 mg/dL Final Repeated and Verified Total HDL-C Direct 08/06/2022 104 >50 mg/dL Final Repeated and Verified Non-HDL cholesterol 08/06/2022 154 <220 mg/dL Final [place] LDL Chol 08/06/2022 139 <190 mg/dL Final Lipoprotein (A) 08/06/2022 10.8 <=75.0 nmol/L Final Comment: An LP(a) level >100 nmol/L is considered an atherosclerotic cardiovascular disease (ASCVD) risk-enhancing factor by the National Lipid Association and corresponds to the 80th population percentile in Caucasians. The corresponding 80th population percentile in -Americans is 150 nmol/L, but it is currently unclear whether a different risk threshold should be applied (J Clin Lipidololgy 2019; 13:374-392). This test was developed using a commercially available kit and its performance characteristics have been determined by [facility]. This assay in units of nmol/L has not been cleared or approved by the FDA, although they are provided by the meter reader chief and widely accepted as the preferred units for reporting. [facility] is regulated under CLIA as qualified to perform high-complexity testing. Apolipoprotein B 08/06/2022 93 47 - 123 mg/dL Final C-Reactive Protein, Acute 08/06/2022 <3.0 <5.0 mg/L Final Total Protein 08/06/2022 6.9 6.1 - 8.4 g/dL Final Albumin 08/06/2022 4.7 3.5 - 5.2 g/dL Final Calcium 08/06/2022 9.5 8.6 - 10.3 mg/dL Final Repeated and Verified BUN 08/06/2022 11 7 - 23 mg/dL Final Total Bilirubin 08/06/2022 0.37 0.20 - 1.40 mg/dL Final Alk Phos, Total 08/06/2022 59 35 - 129 IU/L Final AST (SGOT) 08/06/2022 21 11 - 47 IU/L Final ALT (SGPT) 08/06/2022 15 6 - 53 IU/L Final Creatinine 08/06/2022 0.69 0.60 - 1.10 mg/dL Final Sodium 08/06/2022 138 135 - 145 mmol/L Final Potassium 08/06/2022 4.0 3.3 - 5.1 mmol/L Final Chloride 08/06/2022 100 95 - 107 mmol/L Final CO2 Content 08/06/2022 25 21 - 29 mmol/L Final Glucose 08/06/2022 78 64 - 99 mg/dL Final Comment: NONFASTING GLUCOSE RANGE = 64-199 mg/dL FASTING GLUCOSE 64 - 99 = NORMAL FASTING GLUCOSE 100 - 125 = IMPAIRED FASTING GLUCOSE FASTING GLUCOSE >=126 = PROVISIONAL DIAGNOSIS OF DIABETES eGFR 08/06/2022 >90.0 >60.0 mL/min/1.73 m2 Final White Blood Count 08/06/2022 3.9 3.6 - 11.2 K/uL Final RBC 08/06/2022 4.05 3.63 - 4.92 M/uL Final Hemoglobin 08/06/2022 13.4 11.9 - 15.5 g/dL Final Hematocrit 08/06/2022 41.0 36.1 - 44.3 % Final MCV 08/06/2022 101.4 (H) 80.0 - 97.6 fL Final MCH 08/06/2022 33.2 26.7 - 33.7 pg Final MCHC 08/06/2022 32.8 32.7 - 35.5 g/dL Final RBC Dist Width 08/06/2022 14.3 12.3 - 17.0 % Final Platelet Count 08/06/2022 239 140 - 440 K/uL Final MPV 08/06/2022 8.9 6.8 - 10.4 fL Final Neutrophils % 08/06/2022 56.3 38.7 - 74.5 % Final Lymphocyte % 08/06/2022 30.7 20.0 - 54.3 % Final Monocytes % 08/06/2022 11.3 4.3 - 13.5 % Final Eosinophils % 08/06/2022 1.0 0.0 - 6.0 % Final Basophil % 08/06/2022 0.7 0.0 - 3.0 % Final Absolute Neutrophil 08/06/2022 2.2 1.8 - 6.6 K/uL Final Absolute Lymphocyte 08/06/2022 1.2 0.8 - 3.3 K/uL Final Absolute Monocyte 08/06/2022 0.4 0.2 - 1.2 K/uL Final Absolute Eosinophil 08/06/2022 0.0 0.0 - 0.5 K/uL Final Absolute Basophil 08/06/2022 0.0 0.0 - 0.2 K/uL Final Nucleated RBC % 08/06/2022 0.0 0.0 - 0.4 /100 WBC Final Assessment Assessment: Problem List Items Addressed This Visit Rheumatology Problems Rheumatoid arthritis with negative rheumatoid factor (HCC) - Primary Currently her inflammatory arthritis is well controlled and given her ocular disease in the settingof well controlled disease for 2 years, I recommend a trial of discontinuing hydroxychloroquine to see if it is still actively contributing to her symptoms. 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 I think she benefit from genetic testing and will discuss with our customer success associate whether a referral to Genetics or to them would be optimal I reviewed the patient's prior visit Mar 27 and health assessment questionnaire.Current diseaseactivity is near remission Immunizations: Immunization History Administered Date(s) Administered Influenza, Quadrivalent, Cell Culture-based MDCK, Preservative Free, Antibiotic Free, Hwlzoxhpferod46/04/2018 Influenza, Quadrivalent, Split, Preservative Free, Intramuscular 01/05/2020, 02/26/2021, 02/27/2022 Influenza, Trivalent, Intramuscular 01/27/2018 Influenza, Trivalent, Preservative Free, Intramuscular 02/24/2017 Influenza, Unspecified 01/11/2019 Pfizer SARS-CoV-2 Monovalent Vaccination (12+ Yrs) BEASLEY-READY TO USE 05/14/2021 Pfizer SARS-CoV-2 Monovalent Vaccination (12+ Yrs) PURPLE 10/12/2020, 11/08/2020 Tdap 02/27/2022 ZOSTER Recombinant 02/23/2020, 05/01/2020 Reviewed 09/25/2022 Follow-up: Return in about 6 months (around 03/27/2023). 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 I think she benefit from genetic testing and will discuss with our customer success associate whether a referral to Genetics or to them would be optimal * Assessment & Plan Note - Patricia Martinez MD - 09/25/2022 4:16 PM CDT Associated Problem(s): Rheumatoid arthritis with negative rheumatoid factor (HCC) Currently her inflammatory arthritis is well controlled and given her ocular disease in the settingof well controlled disease for 2 years, I recommend a trial of discontinuing hydroxychloroquine to see if it is still actively contributing to her symptoms. documented in this encounter Plan of Treatment Scheduled Orders Name Type Priority Associated Diagnoses Orde r Schedule CBC with auto differential Lab Routine Rheumatoid arthritis with negative rheumatoid factor, involving unspecified site (HCC) High risk medication use every 3 months for 4 Occurrences starting 09/25/2022 until 09/26/2023, 1 completed Comprehensive metabolic panel Lab Routine Rheumatoid arthritis with negative rheumatoid factor, involving unspecified site (HCC) High risk medication use every 3 months for 4 Occurrences starting 09/25/2022 until 09/26/2023, 1 completed CRP (acute phase) Lab Routine Rheumatoid arthritis with negative rheumatoid factor, involving unspecified site (HCC) High risk medication use every 3 months for 4 Occurrences starting 09/25/2022 until 09/26/2023, 1 completed documented as of this encounter Procedures Procedure Name Priority Date/Time Associated Diagnosis Comments CBC WITH AUTO DIFFERENTIAL Routine 07/31/2023 9:03 AM CDT Rheumatoid arthritis with negative rheumatoid factor, involving unspecified site (HCC) High risk medication use CRP (ACUTE PHASE) Routine 07/31/2023 9:0 3 AM CDT Rheumatoid arthritis with negative rheumatoid factor, involving unspecified site (HCC) High risk medication use COMPREHENSIVE METABOLIC PANEL Routine 07/31/2023 9:03 AM CDT Rheumatoid arthritis with negative rheumatoid factor, involving unspecified site (HCC) High risk medication use documented in this encounter Results * CRP (acute phase) (07/31/2023 9:03 AM CDT) CRP 7 0 - 10 mg/L [facility] - 01 Blood 07/31/2023 9:03 AM CDT 07/31/2023 Narrative [facility] - 08/01/2023 10:11 AM CDT Performed at: ??01 - [facility] ??[id number] Sand Screener: John Lozoya PhD, Phone: ??[phone] us Patricia Martinez MD LAB BLOOD ORDERABLES Final R esult [facility] - 01 * Comprehensive metabolic panel (07/31/2023 9:03 AM CDT) Glucose 86 70 - 99 mg/dL [facility] - 01 BUN 10 8 - 27 mg/dL [facility] - 01 Creatinine, Serum 0.69 0.57 - 1.00 mg/dL [facility] - 01 eGFR 97 >59 mL/min/1.73 [facility] - 01 BUN/creat ratio 14 12 - 28 [facility] - 01 Sodium 142 134 - 144 mmol/L [facility] - 01 Potassium, sr 4.1 3.5 - 5.2 mmol/L [facility] - 01 Chloride 105 96 - 106 mmol/L [facility] - 01 CO2 25 20 - 29 mmol/L [facility] - 01 Calcium 8.9 8.7 - 10.3 mg/dL [facility] - 01 Protein, sr 6.1 6.0 - 8.5 g/dL [facility] - 01 Albumin 4.2 3.9 - 4.9 g/dL [facility] - 01 Globulin, Total 1.9 1.5 - 4.5 g/dL [facility] - 01 A/G Ratio 2.2 1.2 - 2.2 [facility] - 01 Bilirubin, Total 0.4 0.0 - 1.2 mg/dL [facility] - 01 Alk phos 77 44 - 121 IU/L [facility] - 01 AST 18 0 - 40 IU/L [facility] - 01 ALT 17 0 - 32 IU/L [facility] - 01 Blood 07/31/2023 9:03 AM CDT 07/31/2023 Narrative [facility] - 08/01/2023 11:11 AM CDT Performed at: ??01 - [facility] [address] ??[id number] Sand Screener: John Lozoya PhD, Phone: ??[phone] us Patricia Martinez MD LAB BLOOD ORDERABLES Final R esult [facility] - 01 * (ABNORMAL) CBC with auto differential (07/31/2023 9:03 AM CDT) WBC 4.8 3.4 - 10.8 x10E3/uL [facility] - 01 RBC 3.74(L) 3.77 - 5.28 x10E6/uL [facility] - 01 Hgb 12.2 11.1 - 15.9 g/dL [facility] - 01 Hct 37.9 34.0 - 46.6 % [facility] - 01 MCV 101(H) 79 - 97 fL [facility] - 01 MCH 32.6 26.6 - 33.0 pg [facility] - 01 MCHC 32.2 31.5 - 35.7 g/dL [facility] - 01 Rdw 13.5 11.7 - 15.4 % [facility] - 01 Platelets 228 150 - 450 x10E3/uL [facility] - 01 Neutrophils pct 62 Not Estab. % [facility] - 01 Lymphs pct 27 Not Estab. % [facility] - 01 Monocytes pct 10 Not Estab. % [facility] - 01 Eosinophils pct 1 Not Estab. % [facility] - 01 Basophil pct 0 Not Estab. % [facility] - 01 Neutrophil abs 2.9 1.4 - 7.0 x10E3/uL [facility] - 01 [...] - 0.1 x10E3/uL [facility] - 01 Blood 07/31/2023 9:03 AM CDT 07/31/2023 Narrative [facility] - 08/01/2023 8:20 AM CDT Performed at: ??01 - [facility] [address] ??[id number] Sand Screener: John Lozoya PhD, Phone: ??[phone] us Patricia Martinez MD LAB BLOOD ORDERABLES Final R esult [facility] - 01 documented in this encounter Visit Diagnoses Diagnosis Rheumatoid arthritis with negative rheumatoid factor, involving unspecified site (HCC)- Primary High risk medication use Aneurysm (CMS/HCC) (HCC) Other aneurysm of unspecified site documented in this encounter Discontinued Medications Medication Sig Discontinue Reason Start Date End Da te hydrOXYchloroQUINE (PLAQUENIL) 200 mg tablet TAKE 1 TABLET(200 MG) BY MOUTH DAILY 07/02/2022 09/25/2022 ticagrelor (BRILINTA) 60 mg tablet Take 1 tablet (60 mg total) by mouth 2 (two) times a day 05/27/2022 09/25/2022 documented as of this encounter Care Teams Motor And Chassis Inspector Relationship Specialty Start Date End Date Sylvia Dawson PA [address] [facility] [address] [place] [address] PCP - General Internal Medicine 01/05/20 Erica Rodrigues MD [address] [facility] [address] [facility] [address] [place] [address] Radiation Oncologist Radiation Oncology 10/25/18 Gasper Kaba MD [address] [facility] [address] [place] [address] Surgeon Surgical Oncology 10/25/18 Brandy Aguirre, TEST CAR DRIVER [address] [facility] [address] [place] [address] Nurse Practitioner Certified Clinical Nurse Specialist 10/25/18 Jo-Ann Morrow, PhD [address] [facility] [address] [place] [address] Nurse Practitioner Radiation Oncology 10/25/18 Christina Louis, PASTRY COOK HELPER [address] [facility] [address] [place] [address] Nurse Practitioner Medical Oncology 10/25/18 documented as of this encounter
--- OUTSIDE RECORDS SUMMARY | 2024-04-24 05:50 | XMS_ITS | Encounter Summary ---
Author Organization [facility] [email or web address] [facility] Address [address] [place] [address] Phone Care Team Providers Care Manager Intelligence Name Role Phone Erica Rodrigues MD Unavailable Gasper Kaba MD Unavailable [phone] Brandy Aguirre AUTOMOTIVE GLASS SPECIALIST Unavailable [phone] Jo-Ann Morrow PhD Unavailable [phone] Christina Louis DRY CHAIN WORKER Unavailable [phone] Sylvia Dawson Primary Care Provider [phone] Reason for Visit * Reason Comments CME OD Encounter Details Date Type Department Care Team (Late st Contact Info) Description 09/24/2022 8:20 AM CDT Office Visit 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 Pain lasted, remains 09/20 Ocular meds- Moxifloxacin QID OD, PF QID OD Last edited by Jessy Adame MD on 09/24/2022 9:16 AM. 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 Doing well. Shield operated eye, Tobramycin 4x/day and Predforte 4x/day Return to clinic in one week. Signs and symptoms of retinal detachment, tears and endophthalmitis, elevated pressure reviewed with patient. Post Op Position:None. Altitude precautions are not needed. No strenuous activity. The signs and symptoms of retinal detachment, tears, infection, elevated intra- ocular pressure werereviewed with the patient. Patient knows to call should they have any of the symptoms. PLAN FOR NEXT VISIT Follow-up and Dispositions Return in about 1 week (around 10/01/2022) for Dilated exam OD. I have examined the patient, reviewed and edited the chart as needed, and discussed the findings, diagnosis and plan with the resident. I agree with the findings, diagnosis, plan that we have createdand documented. Jessy Adame MD documented in this encounter Miscellaneous Notes * Assessment & Plan Note - Thomas Hinojosa DO - 09/24/2022 9:11 AM CDTAssociated Problem(s): Cystoid macular edema of both eyes One day status post pars plana vitrectomy (PPV)/Afx to the right eye. Doing well. Shield operated eye, Tobramycin 4x/day and Predforte 4x/day Return to clinic in one week. Signs and symptoms of retinal detachment, tears and endophthalmitis, elevated pressure reviewed with patient. Post Op Position:None. Altitude precautions are not needed. No strenuous activity. documented in this encounter Plan of Treatment Not on file documented as of this encounter Visit Diagnoses Diagnosis Cystoid macular edema of both eyes- Primary Cystoid macular degeneration of retina documented in this encounter Eye Exam Visual Acuity (Snellen - Linear) Right eye Left eye Dist sc 20/20 Tonometry (Tonopen, 8:47 AM) Right eye Left eye Pressure 07 Neuro/Psych Oriented x3: Yes Mood/Affect: Normal Slit Lamp Exam Right eye Left eye Lids/Lashes Normal Conjunctiva/Sclera White and quiet Cornea nearly healed k abrasion inf tem p Anterior Chamber trace cell Iris Round and reactive Lens PCIOL, open capsule Anterior Vitreous air fill Fundus Exam Right eye Left eye Posterior Vitreous air fill Disc Normal C/D Ratio 0.4 Macula Normal Vessels Normal Periphery Air fill, Air fill 40%Attached Care Teams Manager Intelligence Relationship Specialty Start Date End Date Sylvia Dawson PA [address] [place] [address] PCP - General Internal Medicine 01/05/20 Erica Rodrigues MD [address] [facility] [address] [facility] [address] [place] [address] Radiation Oncologist Radiation Oncology 10/25/18 Gasper Kaba MD [address] [facility] [address] [facility] [address] [place] [address] Surgeon Surgical Oncology 10/25/18 Brandy Aguirre, CARINA [address] [facility] [address] [facility] [address] [place] [address] Nurse Practitioner Certified Clinical Nurse Specialist 10/25/18 Jo-Ann Morrow, PhD [address] [facility] [address] [facility] [address] [place] [address] Nurse Practitioner Radiation Oncology 10/25/18 Christina Louis NP [address] [facility] [address] [facility] [address] [place] [address] Nurse Practitioner Medical Oncology 10/25/18 documented as of this encounter
--- OUTSIDE RECORDS SUMMARY | 2024-04-24 05:50 | XMS_ITS | Encounter Summary ---
Author Organization [facility] Healthcare Address [address] [place] [address] Care Team Providers Care Md Do Resident Urgent Care Name Role Phone Erica Rodrigues MD Unavailable Gasper Kaba MD Unavailable Brandy Aguirre TRAFFIC CIRCUIT ENGINEER Unavailable [phone] Jo-Ann Morrow PhD Unavailable [phone] Christina Louis BRASS CLEANER Unavailable [phone] Sylvia Dawson Primary Care Provider [phone] Reason for Visit * Auth/Cert (Routine) Specialty Diagnoses / Procedures Referred By Contac t Referred To Contact Diagnoses JOSE (obstructive sleep apnea) JOSE (obstructive sleep apnea) [G47.33] Procedures VA DISE DYN EVAL SLEEP DISORDERED BREATHING FLX DX DRUG INDUCED SLEEP ENDOSCOPY Referral ID Status Reason Start Date Expiration Date Visits Re quested Visits Authorized [id number] 1 1 Encounter Details Date Type Department Care Team (Late st Contact Info) Description 09/19/2022 8:05 AM CDT - 09/19/2022 8:30 AM CDT Surgery [facility] Operating Room [address] AMA[address] [address] Albin Pereyra MD [address] [place] [address] DRUG INDUCED SLEEP ENDOSCOPY Surgery Details Date/Time Status Location OR Service Patient Class Case Class Case Type Trauma Case? 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 PCP - for management of all chronic illnesses Future Appointments Date Time Provider Department Center 09/24/2022 8:20 AM Jessy Adame MD [facility] 6 OP 09/25/2022 3:00 PM Patricia Martinez MD [facility] 5C [facility] Rheum 10/02/2022 11:20 AM Jessy Adame MD [facility] 6 OP 10/16/2022 9:00 AM Jessy Adame MD [facility] 6 OP 01/14/2023 9:15 AM Valorie Young MD [facility] 8B Cardiology 03/03/2023 9:30 AM Sylvia Dawson PA [facility] 04/21/2023 9:00 AM Nazia Ventura MD [facility] CAM 5C [facility] IM EML 04/21/2023 10:00 AM Harpal De León MD CAR [facility] Specialty Phone numbers Appointment Scheduling: Urgent Concerns after hours or Weekends: Call and ask for the ENT resident warehouse person. During Regular Business Hours (8am-5pm Thursday through Thursday): Dr. Pereyra (Marley Jones RN): [phone] Questions: If you have any concerns or [...] of narcotic pain medication include Percocet, Oxycontin, Putnam, Hydrocodone, and Oxycodone. FAQs (frequently asked questions) [...] physical therapy, we are available to assist: [facility] STAR: [facility] [phone] [place] [phone] [facility] [phone] How are some things that you can [...] given by your doctor or other health transitions rn care coordinator. documented in this encounter Medications at Time [...] 1 tablet by mouth every morning vit D-D-oqzqeq-zinc-lut ein (PreserVision Lutein) 226-90-0.8-5 mg capsuleIndications: Eye support Take 1 tablet by mouth 2 (two) times a day atenoloL (TENORMIN) 25 mg tablet TAKE 1 TABLET(25 MG) BY MOUTH DAILY 90 tablet 1 3 03/19/20 23 butalbital-acetamin znodp-bhsobyxv-usmn ine (FIORICET WITH CODEINE) 21-953-57-30 mg per capsuleIndications: Tension-Type Headache Take 1 [...] Preoperative Evaluation Record Evaluation type/location: TPAP from [facility] Planned procedure site: [facility] CAM OR (Pod 4) Date: 09/02/22 [...] aneurysm, 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 Pertinent negatives: CAD ; CT ; CABG ; valvular heart disease; valve replacement; atrial fibrillation; pacemaker/ICD; PVD; DVT/PE; negative for CHF; drug-eluting stent(s); bare metal stent(s) and coronary angioplasty Comments: Special Order Jeweler Dr. De León, last OVN 04/17/22 Respiratory [...] obesity (BMI >30) and transplanted organ Comments: [facility] rheumatology [facility] 03/2022 Functional Capacity Functional capacity: 4-6 [...] Patient instructions were provided electronically sent via [employer]Master. Patient verbalized understanding of preoperative plan. + [...] Ectopic Multiple Live Births 3 Obstetric Comments Development Architect history: 3 para 3, 1st term age [...] mg total) by mouth every morning tachycardia vlqafjdrsh-klgmsvvgklbxj-jfeufgrm-codeine (FIORICET WITH CODEINE) 90-699-04-30 mg per capsule -- 04/15/22 -- Sylvia [...] mg total) by mouth every morning vit M-I-fvegbg-zinc-lutein (PreserVision Lutein) 226-90-0.8-5 mg capsule -- -- -- Ronda Ruano MD No current facility-administered medications for this encounter. Current Outpatient Medications: ??? acetaminophen (TYLENOL) 325 mg tablet ??? aspirin 81 mg enteric coated tablet ??? atenoloL (TENORMIN) 25 mg tablet ??? pfvxsdklgr-tstmfvludegje-mctjdqnp-codeine (FIORICET WITH CODEINE) 21-588-48-30 mg per capsule ??? famotidine-Ca carb-mag hydrox [...] valACYclovir (Valtrex) 500 mg tablet ??? vit X-C-ojrfxq-zinc-lutein (PreserVision Lutein) 226-90-0.8-5 mg capsule ??? ezetimibe [...] The full scanned/data report is available in [employer]. labeled MONITOR STRIPS PDF . PT: No [...] sleep endoscopy ATTENDING SURGEON: Albin Pereyra MD MARKETING DEVELOPMENT REPRESENTATIVE SURGEON: Surgeon(s): Albin Pereyra MD ANESTHESIA: Monitor [...] Planning Perioperative Nursing Note Telephone Preoperative Evaluation ([facility]) - TELEPHONE ONLY, NO PHYSICAL EXAM [...] mouth every morning tachycardia) 90 tablet 1 zdvoejqxaj-exccnoksgoytu-sdeilony-codeine (FIORICET WITH CODEINE) 18-828-11-30 mg per capsule Take 1 capsule by [...] mouth every morning) 90 tablet 2 vit R-Z-dpetja-zinc-lutein (PreserVision Lutein) 226-90-0.8-5 mg capsule Take 1 tablet by mouth 2 (two) times a day Implants Stent Surpass Streamline Flow Diverter - Implanted (Right) Carotid Salesperson Men'S Furnishings: [employer] Neurovascular Lot number: [id number] Size: 5MM X 50MM Device identifier: [id number] Device identifier type: [id number] As of 04/09/2022 Status: Implanted Lvis Intrluminal Support Device - Implanted (Left) Carotid Salesperson Men'S Furnishings: [employer] Lot number: [id number] Size: 5.5MM X 33MM As of 04/09/2022 Status: Implanted Vascular Closure Device Angio-Seal Vip Vascular Closure Device - Implanted (Right) Femoral Salesperson Men'S Furnishings: [employer] Lot number: [id number] As of 04/09/2022 Status: Implanted Type Not Specified [employer] Web Sl 5mm 3mm Device Embolization W5-5-3 - [id number] - Implanted (Left) Inventory item: [employer] WEB SL 5MM 3MM DEVICE EMBOLIZATION W5-5-3 Model/Cat number: W5-5-3 Salesperson Men'S Furnishings: [employer] Lot number: [id number] As of 06/16/2022 Status: Implanted Blitsy Angio-Seal Vip 6fr Closere Device [id number] - [id number] - Implanted (Right) Inventory item: [employer] ANGIO-SEAL VIP 6FR CLOSERE DEVICE [id number] Model/Cat number: [id number] Salesperson Men'S Furnishings: Blitsy Lot number: [id number] As of 06/16/2022 Status: Implanted SKIN Piercings [...] Chart: Copy requested from other (Comment) (patient) Communication/[place] Needs Communication Needs: Glasses Does caregiver's language differ from patient's?: No Assistive Devices/DME: Eyeglasses, CPAP/BiPAP Discharge Planning Type of Residence: Private residence Living Arrangements: Spouse/significant other Support Systems: Spouse/significant other Assistance Needed: Spouse to provide discharge transportation Patient expects to be discharged to:: Private residence GRAPPLE CREW LEADER NO ADDITIONAL COMMENTS/ FOLLOW UP * Pre-Procedure [...] remove nail coverings, artificial nails and nail belarusian prior to the day of surgery. You should leave your valuables and any jewelry at home. No metal or piercings are allowed in the operating room. You should bring your insurance card, a photo ID (example: Occup Ther's License) and a method of payment for [...] Chart. If you are having surgery at [facility], please arrive on the day of surgery [...] Remove nail coverings, artificial nails and nail belarusian. Place clean linens on your bed the [...] questions, please call the CPAP Staff at [phone], Thursday-Thursday 8am-4:30pm. All patients should read the below section: All visitors/patients are being asked to wear a clean face mask when entering the hospital. COVID 19 Updates & Visitor Policy: Please access [email or web address] for the most updated information. Information on [facility]: Please view [email or web address] (Patient & Visitor Information) for additional details regarding Advanced Directive forms, AWARE, directions, parking information, lodging, Internet access, dining and more. Information on [facility] or [facility] ([facility]): Please view [email or web address] (Patient and Visitor Information) for parking/directions and more. For MyChart information, to activate account or password recovery, please go to [email or web address] or call [phone] (toll-free: [phone]). Information for Suicide Prevention: National Suicide Prevention Lifeline (5-312- 833-DIBJ (8234)). Surgery Times: For patients having surgery @ [facility], if your surgeon's office has not notified you of your surgery time by 2pm THE BUSINESS DAY BEFORE your surgery, please call the surgery center at [phone] and ask for your surgeon's office Dr. Pereyra. documented in this encounter Plan of Treatment Not on file documented as of this encounter Procedures Procedure Name Priority Date/Time Associated Diagnosis Comments DRUG INDUCED SLEEP ENDOSCOPY EVAL FLEX DIAG 09/19/2022 7:57 AM CDT JOSE (obstructive sleep apnea) documented in this encounter Visit Diagnoses Diagnosis [...] area 0632 (Given - Provid er: Kacie Avilez RN) Continuous Medication Order 09/17/2022 09/18/2022 09/19/2022 [...] 1 09/19/2022 famotidine (PEPCID) injection 20 mg 1 09/19 fentaNYL (SUBLIMAZE) preserv ative free injection 25 mcg 1 09/19/2022 hydrALAZINE (APRESOLINE) injection 5 mg 1 0 09/19/2022 HYDROcodone-acetaminophen (N ORCO) 5-325 mg per tablet 1 tablet 1 09/19/2022 HYDROmorphone (DILAUDID) injection 0.2 mg 1 09/19/2022 labetaloL (NORMODYNE,TRANDAT E) injection 5 mg 1 09/19/2022 Lactated Ringer's (LR) infusion 1 lidocaine PF [...] 09/19/2022 documented in this encounter Care Teams Md Do Resident Urgent Care Relationship Specialty Start Date End Date Sylvia Dawson PA [address] [facility] [address] [place] [address] PCP - General Internal Medicine 01/05/20 Erica Rodrigues MD [address] [facility] [address] [place] [id number] Radiation Oncologist Radiation Oncology 10/25/18 Gasper Kaba MD [address] [facility] [address] [place] [id number] Surgeon Surgical Oncology 10/25/18 Brandy Aguirre, CARINA [address] [facility] [address] [place] [id number] Nurse Practitioner Certified Clinical Nurse Specialist 10/25/18 Jo-Ann Morrow, PhD [address] [facility] [address] [place] [address] Nurse Practitioner Radiation Oncology 10/25/18 Christina Louis BRASS CLEANER [address] [facility] [address] [place] [id number] Nurse Practitioner Medical Oncology 10/25/18 documented as of this encounter
--- OUTSIDE RECORDS SUMMARY | 2024-04-24 05:50 | XMS_ITS | Encounter Summary ---
Author Organization [facility] Address [address] [place] [address] Phone Care Team Providers Care Polyethylene Combiner Name Role Phone Erica Rodrigues MD Unavailable Gasper Kaba MD Unavailable Brandy Aguirre JAVA J2EE LEAD Unavailable [phone] Jo-Ann Morrow PhD Unavailable [phone] Christina Louis PROCESS CHEMIST Unavailable [phone] Sylvia Dawson Primary Care Provider [phone] Reason for Visit * Consultation (Routine) - Closed Specialty Diagnoses / Procedures Referred By Contac t Referred To Contact Endocrinology Diagnoses Mixed hyperlipidemia Sylvia Dawson PA [address] [facility] [address] [place] [address] Phone: tel: fax: Nazia Ventura MD [address] [facility] [address] [place] [address] Phone: tel: fax: Referral ID Status Reason Start Date Expiration Date V isits Requested Visits Authorized [id number] Closed Specialty Services Required 05/04/2022 06/03/2023 1 1 Encounter Details Date Type Department Care Team (Latest Contact Info) Description 08/06/2022 10:30 AM CDT Office Visit [facility] Endocrinology Metabolism and Lipid [address] 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 on file Not on file Not on file documented as of this encounter Last Filed Vital Signs Vital Sign Reading Time Taken Comments Blood Pressure 138/85 08/06/2022 10:26 AM CDT Pulse 61 08/06/2022 10:26 AM CDT Temperature 36.7 ??C (98 ??F) 08/06/2022 10:26 AM CDT Respiratory Rate - - Oxygen Saturation - - Inhaled Oxygen Concentration - - Weight 63 kg (138 lb 12.8 oz) 08/06/2022 10:26 A M CDT Height 160 cm (5' 3 ) 08/06/2022 10:26 AM CDT Body Mass Index 24.59 08/06/2022 10:26 AM CDT documented in this encounter Patient Instructions * Patient Instructions* Nazia Ventura MD - 08/06/2022 10:30 AM CDT Stop red yeast rice. Do not restart co Q 10 or zinc. Can resume turmeric, calcium and vitamin and preservision and multiple vitamin. One ounce of nuts per day Benecol margarine or Benecol chews Add ezetimibe 10 mg daily any time and with or without food documented in this encounter Ordered Prescriptions Prescription Sig Dispense Quantity Refills Last Filled Start Date End Date ezetimibe (ZETIA) 10 mg tabletIndications:Mi xed hyperlipidemia Take 1 tablet (10 mg total) by mouth daily 30 tablet 11 08/06/2022 3 documented in this encounter Progress Notes * Nazia Ventura MD - 08/06/2022 10:30 AM CDT Chief complaint: Yesika Denney is referred by Sylvia Dawson for hyperlipidemia. HPI: She is a 62 year old woman with hyperlipidemia. 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 She has had an elevated LDL cholesterol for some time with LDL 218 03/2022. She has not been on lipid lowering therapy. She is hesitant to start statin as she is on several other medications and would like to limit amount of medications she is on overall. She is wary of mediation since she developed rheumatoid arthritis after being on Arimidex for breast cancer. She was caused RA and progesterone to induce menstrual bleeding caused breast cancer, furthering hesitancy to start new medications. Otherwise feels well at this time. Diet Breakfast: toasted whole grain bread, with [place] butter + olive oil and strawberry jam, coffee with half and half, Lunch: falafel, chicken/beef, salad, rice with cheese, chips/salsa Dinner: chicken/cardoso, diced potatoes, salad, baked beans Beverages: black tea + stevia, water Exercise: walks ~4000 steps per day, scheduled to see ultimate hoops trainer soon Obstetric and gynecologic history Age at menarche: age 13 Pregnancies: 3 kids, no miscarriages complications: none Age at menopause: age 54 Hormonal therapies: used to take progesterone, Arimidex caused rheumatoid arthritis Allergies Allergen Reactions Adhesive Hives Paper tape OK Cyclizine Other (See comments) and Hallucinations Marezine about 1982 Reaction: Urinary retention Current Outpatient Medications Medication Sig Dispense Refill [...] by mouth every morning) 90 tablet 1 cdmiiijttw-jgguzmksyqjon-kkxgpubi-codeine (FIORICET WITH CODEINE) 12-969-93-30 mg per capsule Take 1 capsule by [...] 1 tablet (12.5 mg total) by mouth as needed) 90 tablet 0 hydrOXYchloroQUINE (PLAQUENIL) 200 mg tablet TAKE 1 TABLET(200 MG) BY MOUTH DAILY 90 tablet 2 lisinopriL (PRINIVIL,ZESTRIL) 40 mg tablet Take 1 tablet (40 mg total) by mouth daily 90 tablet 4 methotrexate 2.5 mg tablet Take 8 tablets on (Patient taking differently: 1 tablet (2.5 mg total) every 7 days Take 8 tablets on ) 96 tablet 2 sulfaSALAzine EN (AZULFIDINE EN) 500 mg EC tablet TAKE 2 TABLETS(1000 MG) BY MOUTH TWICE DAILY 360 tablet 0 ticagrelor (BRILINTA) 60 mg [...] by mouth every morning) 90 tablet 2 calcium carbonate/vitamin D3 (CALTRATE 600 PLUS D ORAL) Take 1 tablet by mouth every morning (Patient not taking: Reported on 08/06/2022) multivitamin with minerals tablet Take 1 tablet by mouth every morning (Patient not taking: Reported on 08/06/2022) turmeric root extract 500 mg capsule Take 500 mg by mouth every morning (Patient not taking: Reported on 08/06/2022) vit Y-D-vozdyl-zinc-lutein (PreserVision Lutein) 226-90-0.8-5 mg capsule Take 1 tablet by mouth every morning (Patient not taking: Reported on 08/06/2022) zinc 50 mg tablet Take 50 mg by mouth every morning (Patient not taking: Reported on 08/06/2022) No current facility-administered medications for this visit. Past Medical History: Diagnosis Date Autoimmune disease (CMS/HCC) (HCC) Benign left breast lump 06/2002 biopsy showed fibrosis and hyperplasia Brain aneurysm Followed by Dr. Chaudhari: Every 3 years Breast cancer (HCC) 2014 Invasive ductal carcinoma Cataract Depression Elevated cholesterol History of chemotherapy 2014 Breast cancer History of radiation therapy 2015 Right breast Hypertension Migraine Motion sickness sometimes on [place] roads Obstructive sleep apnea 06/19/2022 RA (rheumatoid arthritis) (HCC) Past Surgical History: Procedure Laterality Date ANGIO SELECTIVE INTERNAL CAROTID LEFT Left 03/12/2022 BREAST BIOPSY Left 2002 benign BREAST LUMPECTOMY Right 2014 Invasive ductal carcinoma COLONOSCOPY 03/06/2020 CYST REMOVAL ENDOMETRIAL ABLATION 02/2007 EYE SURGERY HYSTEROSCOPY PORT PLACEMENT CHEST >5 YEARS N/A 01/17/2015 PORT REMOVAL N/A 04/10/2015 RHINOPLASTY 1985 THYROIDECTOMY, PARTIAL Left 1997 Dr. Demetris Aguilar TONSILLECTOMY 1983 TUBAL LIGATION 02/2007 Social History Tobacco Use Smoking status: Never Passive exposure: Never Smokeless tobacco: Never Substance and Sexual Activity Drug use: Yes Types: Alcohol Sexual activity: Defer Partners: Male control/protection: Post-menopausal, Tubal Ligation Alcohol Use: Not At Risk (08/05/2022) AUDIT-C Frequency of Alcohol Consumption: Monthly or less Average Number of Drinks: 1 or 2 Frequency of Binge Drinking: Never Occupation: retired from [employer] career since 2018 Marital status: Family History Problem Relation Age of Onset [...] Hyperthermia Neg Hx Pseudochol deficiency Neg Hx Mother--hyperlipidemia Review of Systems General: weakness/fatigue; JOSE diagnosed April 2022 Eyes: hx of b/l cataracts; vitrectomy OS ENT: denies Respiratory: minor continued SOB since COVID in 2020 Cardiovascular: Raynaud's Gastrointestinal: denies Genitourinary: post-menopausal Musculoskeletal: denies Endocrine: denies Psych: denies Neurologic: migraines Skin/breast: right breast cancer 2014--surgery, radiation, chemo Allergic/immunologic: RA and seasonal allergies All other review of systems are negative. Vitals BP 138/85 Pulse 61 Temp 36.7 ??C (98 ??F) Ht 160 cm (5' 3 ) Wt 63 kg (138 lb 12.8 oz) LMP (LMP Unknown) BMI 24.59 kg/m?? Physical examination General: WD WN woman in no acute distress Eyes: NOMI, EOMs full, bilateral upper arcus corneae, Fundi unremarkable ENT: hearing grossly normal; oropharynx and tongue normal Neck: supple, no goiter; thyroidectomy scar, no lymphadenopathy Psych: normal memory and affect Respiratory: normal effort; clear to auscultation Cardiovascular: Regular, S1 S2 normal, no murmur, no edema Abbdomen: obese soft, non tender Musculoskeletal: normal gait, no muscle tenderness, normal upper and lower strength, slight Achilles tendon thickening Skin: normal turgor Neurologic: cranial nerves 2 to 12 intact Results Component Latest Ref Rng & Units 02/17/2020 08/28/2020 01/18/2021 04/18/2021 Cholesterol 100 - 199 mg/dL 252 (H) 272 (H) 331 (H) 318 (H) Triglycerides 0 - 149 mg/dL 81 83 149 120 HDL Cholesterol >39 mg/dL 76 90 101 VLDL Cholesterol Dean 5 - 40 mg/dL 14 14 26 LDL Cholesterol Calc 0 - 99 mg/dL 162 (H) 168 (H) 204 (H) LDL, comment Total HDL-C Direct >50 mg/dL 100 Non-HDL cholesterol 100 - 219 mg/dL 218 LDL Chol, Direct 70 - 189 mg/dL 194 (H) Component Latest Ref Rng & Units 08/30/2021 03/25/2022 Cholesterol 100 - 199 mg/dL 277 (H) 336 (H) Triglycerides 0 - 149 mg/dL 63 91 HDL Cholesterol >39 mg/dL 96 104 VLDL Cholesterol Dean 5 - 40 mg/dL 10 14 LDL Cholesterol Calc 0 - 99 mg/dL 171 (H) 218 (H) LDL, comment Comment Total HDL-C Direct >50 mg/dL Non-HDL cholesterol 100 - 219 mg/dL LDL Chol, Direct 70 - 189 mg/dL Component Latest Ref Rng & Units 08/06/2022 Triglycerides <150 mg/dL 76 Cholesterol <200 mg/dL 258 (H) Total HDL-C Direct >50 mg/dL 104 Non-HDL cholesterol <220 mg/dL 154 LDL Chol, Direct <190 mg/dL 139 Lipoprotein (a) <=75.0 nmol/L 10.8 Apolipoprotein B 47 - 123 mg/dL 93 Assessment Hyperlipidemia. LDL cholesterol lower than last year's levels. Likely genetic component. She is currently taking red yeast rice, and there is a slight possibility that she is getting some monocalin. Diet is generally good. Apo B is higher than desirable, and she has rheumatoid arthritis. Lipoprotein (a) is okay. Non-contrast chest CT in 2020 shows coronary artery and aortic calcification suggesting vascular atherosclerosis. I would definitely want to lower LDL cholesterol and would prefer to use approved medications.Will start with ezetimibe and then consider adding microdoses of statin. Plan Discussed diet. Stop red yeast rice. Add plant stanols as Benecol margarine or chews. At ezetimibe 10 mg daily. Repeat lipid levels in a couple of months. Return 6 months. I have seen and examined the patient. I agree with the findings and plan of care as documented in the resident/fellow's note and as discussed with the resident/fellow. I have reviewed and edited Dr. Lord's note. Nazia Ventura MD purchase request editor documented in this encounter Plan of Treatment Not on file documented as of this encounter Results * Total Apo B, plasma - [facility] (08/06/2022 1:07 PM CDT) Pathologist [facility] Apolipoprotein B 93 47 - 123 mg/dL [facility] Blood 08/06/2022 1:07 PM CDT 08/06/2022 2:20 PM CDT us Nazia Ventura MD LAB BLOOD ORDERABLES Mary l Result [facility] * Lipoprotein a (LPa) (08/06/2022 1:07 PM CDT) Pathologist [facility] Lipoprotein (A) 10.8 <=75.0 nmol/L [facility] Comment: An LP(a) level >100 nmol/L is considered an atherosclerotic cardiovascular disease (ASCVD) risk-enhancing factor by the National Lipid Association and corresponds to the 80th population percentile in Caucasians. ??The corresponding 80th population percentile in -Americans is 150 nmol/L, but it is currently unclear whether a different risk threshold should be applied (J Clin Lipidololgy 2019; 13:374-392). This test was developed using a commercially available kit and its performance characteristics have been determined by [facility]. ??This assay in units of nmol/L has not been cleared or approved by the FDA, although they are provided by the salad counter attendant and widely accepted as the preferred units for reporting. ??[facility] is regulated under CLIA as qualified to perform high-complexity testing. Blood 08/06/2022 1:07 PM CDT 08/06/2022 2:20 PM CDT Nazia Ventura MD LAB BLOOD ORDERABLES Mary l Result Performing Organization Address City/[facility]/ZIP Co de Phone Number [facility] [place] [facility] * (ABNORMAL) Lipid panel (08/06/2022 1:07 PM CDT) Triglycerides 76 <150 mg/dL [facility] Comment: Desirable: <150 mg/dL, fasting <175 mg/dL, non-fasting Persistently elevated triglycerides may enhance atherosclerotic cardiovascular disease. Total Cholesterol 258(H) <200 mg/dL [facility] Comment:Repeated and Verifie d Total HDL-C Direct 104 >50 mg/dL [facility] Comment:Repeated and Verifie d Non-HDL cholesterol 154 <220 mg/dL [facility] [place] LDL Chol 139 <190 mg/dL [facility] Blood 08/06/2022 1:07 PM CDT 08/06/2022 2:20 PM CDT Narrative [facility] - 08/06/2022 4:01 PM CDT Current interpretive data was last updated March 15, 2021. For adults ages 40-79, the ACC/AHA recommends discussing your 10-year atherosclerotic cardiovascular disease risk with your health care provider. ??https://www.acc.org/ASCVDApp us Nazia Ventura MD LAB BLOOD ORDERABLES Mary l Result Performing Organization Address City/[facility]/ZIP Co de Phone Number [facility] [place] [facility] documented in this encounter Visit Diagnoses Diagnosis Mixed hyperlipidemia Mixed hyperlipidemia High risk medication use documented in this encounter Discontinued Medications Medication Sig Discontinue Reason Start Date End Da te coenzyme Q10 200 mg capsule Take 1 capsule (200 mg total) by mouth every morning Other 08/06/2022 documented as of this encounter Orders Outpatient Referral Count Last Ordered Date Fir st Ordered Date AMB REFERRAL TO ENDOCRINOLOGY 1 08/06/2022 documented in this encounter Care Teams Polyethylene Combiner Relationship Specialty Start Date End Date Sylvia Dawson PA [address] [facility] [address] [place] [address] PCP - General Internal Medicine 01/05/20 Erica Rodrigues MD [address] [facility] [address] [place] [address] Radiation Oncologist Radiation Oncology 10/25/18 Gasper Kaba MD [address] [place] [address] Surgeon Surgical Oncology 10/25/18 Brandy Aguirre, CARINA [address] [place] [address] Nurse Practitioner Certified Clinical Nurse Specialist 10/25/18 Jo-Ann Morrow, PhD [address] [place] [address] Nurse Practitioner Radiation Oncology 10/25/18 Christina Louis NP [address] [facility] [address] [place] [address] Nurse Practitioner Medical Oncology 10/25/18 documented as of this encounter
--- OUTSIDE RECORDS SUMMARY | 2024-04-24 05:50 | XMS_ITS | Encounter Summary ---
Author Organization [facility] Address [address] [place] [address] Phone Care Team Providers Care Synchro Assembler Name Role Phone Erica Rodrigues MD Unavailable Gasper Kaba MD Unavailable Brandy Aguirre RETAIL SUPPORT SPECIALIST Unavailable [phone] Jo-Ann Morrow PhD Unavailable [phone] Christina Louis INTERACTIVE VIDEO TECHNICIAN Unavailable [phone] Sylvia Dawson Primary Care Provider [phone] Reason for Referral * Diagnostic Imaging (Routine) - Closed Specialty Diagnoses / Procedures Referred By Contac t Referred To Contact Radiology Diagnoses Cerebral aneurysm, nonruptured Procedures IR Angio Selective Carotid RETAIL SUPPORT SPECIALIST Right Abdiaziz Moss MD [address] [place] [address] Phone: tel: fax: [address] [address] Referral ID Status Reason Start Date Expiration Date Visits Re quested Visits Authorized [id number] Closed 11/19/2022 12/19/2023 1 1 Encounter Details Date Type Department Care Team (Late st Contact Info) Description 11/19/2022 Orders Only [facility] Neurosurgery [address] [facility] 6th [place] [address] [place] [address] Abdiaziz Moss MD [address] [place] [address] Cerebral aneurysm, nonruptured (Primary Dx) Social History [...] on file 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 A 5 Kazakh sheath was inserted over a 3 mm J wire and connected to a regulated pressurized infusion of heparinized saline. A 5 Kazakh vertebral catheter was introduced over the wire, [...] and were stored to PACS. A 5 [place] sheath was inserted over a 3 mm J wire and connected to a regulated pressurized infusion of heparinized saline. A 5 [place] vertebral catheter was introduced over the wire, [...] it. Electronically signed by: Abdiaziz Moss M.D. Abdiaziz Moss MD IMG IR PROCEDURES Final Resul t documented in this encounter Visit Diagnoses Diagnosis Cerebral aneurysm, nonruptured- Primary Cerebral aneurysm, nonruptured documented in this encounter Care Teams Synchro Assembler Relationship Specialty Start Date End Date Sylvia Dawson PA [address] [place] [address] PCP - General Internal Medicine 01/05/20 Erica Rodrigues MD [address] [place] [address] Radiation Oncologist Radiation Oncology 10/25/18 Gasper Kaba MD [address] [place] [address] Surgeon Surgical Oncology 10/25/18 Brandy Aguirre, RETAIL SUPPORT SPECIALIST [address] [place] [address] Nurse Practitioner Certified Clinical Nurse Specialist 10/25/18 Jo-Ann Morrow, PhD [address] [place] [address] Nurse Practitioner Radiation Oncology 10/25/18 Christina Louis NP [address] [place] [address] Nurse Practitioner Medical Oncology 10/25/18 documented as of this encounter
--- OUTSIDE RECORDS SUMMARY | 2024-04-24 05:50 | XMS_ITS | Encounter Summary ---
Author Organization [facility] Address [address] [place] [address] Phone Care Team Providers Care Nursing Attendant Name Role Phone Erica Rodrigues MD Unavailable Gasper Kaba MD Unavailable [phone] Brandy Aguirre OPERATING ENGINEER APPRENTICE Unavailable [phone] Jo-Ann Morrow PhD Unavailable [phone] Christina Louis MACHINE FEED OPERATOR Unavailable [phone] Sylvia Dawson Primary Care Provider [phone] Encounter Details Date Type Department Care Team (Late st Contact Info) Description 08/06/2022 1:20 PM CDT Lab [facility] Endocrinology Metabolism and Lipid [address] [facility] Advanced Medicine 5th [place] [address] [place] [address] Mixed hyperlipidemia; High risk medication use Social History Tobacco Use Types Packs/Day Years [...] on file 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 Apo B is higher than desirable. Lipoprotein (a) is normal. Ideally, LDL cholesterol should be at least below 70, and given other risk factors, probably below 55. documented in this encounter Plan of Treatment Not on file documented as of this encounter Procedures Procedure Name Priority Date/Time Associated Diagnosis Comments TOTAL APO B Routine 08/06/2022 1:07 PM CDT Mixed hyperlipidemia CBC WITH AUTO DIFFERENTIAL Routine 08/06/2022 1:07 PM CDT High risk medication use LIPOPROTEIN A (LPA) Routine 08/06/2022 1 :07 PM CDT Mixed hyperlipidemia CRP (ACUTE PHASE) Routine 08/06/2022 1:0 7 PM CDT High risk medication use LIPID PANEL Routine 08/06/2022 1:07 PM CDT Mixed hyperlipidemia COMPREHENSIVE METABOLIC PANEL Routine 08/06/2022 1:07 PM CDT High risk medication use documented in this encounter Results * (ABNORMAL) CBC with auto differential (08/06/2022 1:07 PM CDT) White Blood Count 3.9 3.6 - 11.2 K/uL [facility] RBC 4.05 3.63 - 4.92 M/uL [facility] Hemoglobin 13.4 11.9 - 15.5 g/dL [facility] Hematocrit 41.0 36.1 - 44.3 % [facility] MCV 101.4(H) 80.0 - 97.6 fL [facility] MCH 33.2 26.7 - 33.7 pg [facility] MCHC 32.8 32.7 - 35.5 g/dL [facility] RBC Dist Width 14.3 12.3 - 17.0 % [facility] Platelet Count 239 140 - 440 K/uL [facility] MPV 8.9 6.8 - 10.4 fL [facility] Neutrophils % 56.3 38.7 - 74.5 % [facility] Lymphocyte % 30.7 20.0 - 54.3 % [facility] Monocytes % 11.3 4.3 - 13.5 % [facility] Eosinophils % 1.0 0.0 - 6.0 % [facility] Basophil % 0.7 0.0 - 3.0 % [facility] Absolute Neutrophil 2.2 1.8 - 6.6 K/uL [facility] Absolute Lymphocyte 1.2 0.8 - 3.3 K/uL [facility] Absolute Monocyte 0.4 0.2 - 1.2 K/uL [facility] Absolute Eosinophil 0.0 0.0 - 0.5 K/uL [facility] Absolute Basophil 0.0 0.0 - 0.2 K/uL [facility] Nucleated RBC % 0.0 0.0 - 0.4 /100 WBC [facility] Blood 08/06/2022 1:07 PM CDT 08/06/2022 2:20 PM CDT us Patricia Martinez MD LAB BLOOD ORDERABLES Final R esult [facility] * Comprehensive metabolic panel (08/06/2022 1:07 PM CDT) Pathologist [facility] [place] Total Protein 6.9 6.1 - 8.4 g/dL [facility] Albumin 4.7 3.5 - 5.2 g/dL [facility] Calcium 9.5 8.6 - 10.3 mg/dL [facility] Comment:Repeated and Verifie d BUN 11 7 - 23 mg/dL [facility] Total Bilirubin 0.37 0.20 - 1.40 mg/dL [facility] Alk Phos, Total 59 35 - 129 IU/L [facility] AST (SGOT) 21 11 - 47 IU/L [facility] ALT (SGPT) 15 6 - 53 IU/L [facility] Creatinine 0.69 0.60 - 1.10 mg/dL [facility] Sodium 138 135 - 145 mmol/L [facility] Potassium 4.0 3.3 - 5.1 mmol/L [facility] Chloride 100 95 - 107 mmol/L [facility] CO2 Content 25 21 - 29 mmol/L [facility] Glucose 78 64 - 99 mg/dL [facility] Comment: NONFASTING GLUCOSE RANGE = 64-199 mg/dL FASTING GLUCOSE 64 - 99 = NORMAL FASTING GLUCOSE 100 - 125 = IMPAIRED FASTING GLUCOSE FASTING GLUCOSE >=126 = PROVISIONAL DIAGNOSIS OF DIABETES eGFR >90.0 >60.0 mL/min/1.7 3 m2 [facility] Blood 08/06/2022 1:07 PM CDT 08/06/2022 2:20 PM CDT Patricia Martinez MD LAB BLOOD ORDERABLES Final R esult [facility] * CRP (acute phase) (08/06/2022 1:07 PM CDT) C-Reactive Protein, Acute <3.0 <5.0 mg/L [facility] Blood 08/06/2022 1:07 PM CDT 08/06/2022 2:20 PM CDT Patricia Martinez MD LAB BLOOD ORDERABLES Final R esult Performing Organization Address [facility] Co de Phone Number [facility] * Total Apo B, plasma - Corelab (08/06/2022 1:07 PM CDT) Pathologist [facility] Apolipoprotein B 93 47 - 123 mg/dL [facility] Blood 08/06/2022 1:07 PM CDT 08/06/2022 2:20 PM CDT Nazia Ventura MD LAB BLOOD ORDERABLES Mary l Result Performing Organization Address [facility] Co de Phone Number [facility] * Lipoprotein a (LPa) (08/06/2022 1:07 PM CDT) Pathologist [facility] Lipoprotein (A) 10.8 <=75.0 nmol/L [facility] Comment: An LP(a) level >100 nmol/L is [...] FDA, although they are provided by the mobile ui/ux designer and widely accepted as the preferred units for reporting. [facility] is regulated under CLIA as qualified to perform high-complexity testing. Blood 08/06/2022 1:07 PM CDT 08/06/2022 2:20 PM CDT Nazia Ventura MD LAB BLOOD ORDERABLES Mary l Result Performing Organization Address [facility] Co de Phone Number [facility] * (ABNORMAL) Lipid panel (08/06/2022 1:07 PM CDT) Pathologist [facility] Triglycerides 76 <150 mg/dL [facility] [...] PM CDT 08/06/2022 2:20 PM CDT Narrative [facility] - 08/06/2022 4:01 PM CDT Current interpretive data was last updated March 15, 2021. For adults ages 40-79, the ACC/AHA recommends discussing your 10-year atherosclerotic cardiovascular disease risk with your health care provider. ??https://www.acc.org/ASCVDApp Nazia Ventura MD LAB BLOOD ORDERABLES Mary l Result [facility] documented in this encounter Visit Diagnoses Diagnosis Mixed hyperlipidemia High risk medication use documented in this encounter Care Teams Nursing Attendant Relationship Specialty Start Date End Date Sylvia Dawson PA [address] [facility] [address] [place] [address] PCP - General Internal Medicine 01/05/20 Erica Rodrigues MD [address] [place] [address] Radiation Oncologist Radiation Oncology 10/25/18 Gasper Kaba MD [address] [place] [address] Surgeon Surgical Oncology 10/25/18 Brandy Aguirre CNS [address] [facility] [address] [place] [address] Nurse Practitioner Certified Clinical Nurse Specialist 10/25/18 Jo-Ann Morrow, PhD [address] [facility] [address] [place] [address] Nurse Practitioner Radiation Oncology 10/25/18 Christina Louis, MACHINE FEED OPERATOR [address] [facility] [address] [place] [address] Nurse Practitioner Medical Oncology 10/25/18 documented as of this encounter
--- OUTSIDE RECORDS SUMMARY | 2024-04-24 05:50 | XMS_ITS | Encounter Summary ---
Author Organization [facility] Address [address] [place] [address] Phone Care Team Providers Care Management Liaison Name Role Phone Erica Rodrigues MD Unavailable Gasper Kaba MD Unavailable Brandy Aguirre CHAIN MACHINE OPERATOR Unavailable [phone] Jo-Ann Morrow PhD Unavailable [phone] Christina Louis COOK CHILL TECHNICIAN Unavailable [phone] Sylvia Dawson Primary Care Provider [phone] Encounter Details Date Type Department Care Team (Late st Contact Info) Description 09/22/[address] 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 Not on file Not on file documented as of this encounter Miscellaneous Notes * Telephone Encounter - Celeste Gibbons COA - 09/22/2022 4:55 PM CDT Spoke with patient, confirmed sx on 09/23 with arrival at 11:30 documented in this encounter Plan of Treatment Not on file documented as of this encounter Visit Diagnoses Not on filedocumented in this encounter Care Teams Management Liaison Relationship Specialty Start Date End Date Sylvia Dawson PA [address] [address] PCP - General Internal Medicine 01/05/20 Erica Rodrigues MD [address] [place] [address] Radiation Oncologist Radiation Oncology 10/25/18 Gasper Kaba MD [address] [facility] [address] [place] [address] Surgeon Surgical Oncology 10/25/18 Brandy Aguirre CNS [address] [place] [address] Nurse Practitioner Certified Clinical Nurse Specialist 10/25/18 Jo-Ann Morrow, PhD [address] [place] [address] Nurse Practitioner Radiation Oncology 10/25/18 Christina Louis NP [address] [facility] [address] [place] [address] Nurse Practitioner Medical Oncology 10/25/18 documented as of this encounter
--- OUTSIDE RECORDS SUMMARY | 2024-04-24 05:50 | XMS_ITS | Encounter Summary ---
Author Organization [facility] Healthcare Address [address] [place] [address] Care Team Providers Care Installment Dealer Name Role Phone Erica Rodrigues MD Unavailable Gasper Kaba MD Unavailable Brandy Aguirre Unavailable [phone] Jo-Ann Morrow PhD Unavailable [phone] Christina Louis NP Unavailable [phone] Sylvia Dawson Primary Care Provider [phone] Reason for Visit * Auth/Cert (Routine) Specialty Diagnoses / Procedures Referred By Contac t Referred To Contact Diagnoses JOSE (obstructive sleep apnea) JOSE (obstructive sleep apnea) [G47.33] Procedures [place] DISE DYN EVAL SLEEP DISORDERED BREATHING FLX DX DRUG INDUCED SLEEP ENDOSCOPY Referral ID Status Reason Start Date Expiration Date Visits Re quested Visits Authorized [id number] 1 1 Encounter Details Date Type Department Care Team (Late st Contact Info) Description 09/19/2022 7:52 AM CDT Anesthesia Event [facility] Operating Room [address] [address] [address] Iggy Cueva MD [address] [facility] [address] [facility] [place] [address] Cassie Crystal NP [address] [facility] [phone] [place] [address] Anesthesia Record Procedure Summary Procedure Name Responsible Anesthesiologist Anesthesia Start Time Anesthesia Stop Time DRUG INDUCED SLEEP ENDOSCOPY Iggy Cueva MD 09/19/22 0752 09/19/22 0809 Events Date Time Event Comment 09/19/2022 0555 In Preop 0700 AN Equip Check 0707 0752 An Start 0757 In Room 0758 An Start Data 0758 Start Supplemental O2 0758 Proc Start 0800 An Induction The patient was reevaluated immediately before moderate or deep sedation use and before anesthesia induction. 0800 Anesthesia Ready 0802 Proc Fin 0804 Out of Room 0804 an stop data 0808 Handoff to RN I completed my handoff [...] disposition at the time of handoff: PACU 0809 An Stop 0817 Release from care Meds Name Total Lidocaine IV 1% 50 mg propofol 50 mg Lactated Ringer's (LR) infusion 300 mL * Agents Name O2 N2O Air Sevoflurane Inspired Sevoflurane * Blood No blood administrations on file. 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 Not on file Not on file documented as of this encounter OR Notes * Anesthesia Postprocedure Evaluation - Iggy Cueva MD - 09/19/2022 8:17 AM CDT Patient: Yesika Denney Procedure Summary Date: 09/19/22 Room / Location: [facility] 08 [facility] Anesthesia Start: 751 Anesthesia Stop: 808 Procedure: DRUG INDUCED SLEEP ENDOSCOPY Diagnosis: JOSE (obstructive sleep apnea) (JOSE (obstructive sleep apnea) [G47.33]) Surgeons: Albin Pereyra MD Responsible Provider: Iggy Cueva MD Anesthesia Type: MAC ASA Status: 3 Anesthesia Type: MAC Last vitals BP 132/73 (BP Location: Left arm, Patient Position: Lying) Pulse 56 Resp 14 SpO2 94% Anesthesia Post Evaluation Patient location during evaluation: PACU Patient participation: complete - patient participated Level of consciousness: fully awake Pain management: satisfactory to patient Airway patency: adequate and patent Evidence of recall: no Cardiovascular status: acceptable and hemodynamically stable Respiratory status: acceptable and room air Hydration status: acceptable Pt is: normothermic Nausea/Vomiting status: none No notable events documented. * Anesthesia Preprocedure Evaluation - Iggy Cueva MD - 09/19/2022 6:55 AM CDT Images from the original note were not included. Anesthesia Evaluation Yesika Denney is a 62 y.o. female Procedure(s): DRUG INDUCED SLEEP ENDOSCOPY Pre-Op Diagnosis Codes: * JOSE (obstructive sleep apnea) [G47.33] HISTORY HPI Yesika Denney is a 62 y.o. female being evaluated for Inspire - today step one. Past Medical History Information obtained from: patient [...] - sinus tachycardia. 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 Patient verbalized understanding of preoperative plan. + [...] Chaudhari: Every 3 years ??? Breast cancer ([facility]) 2014 Invasive ductal carcinoma ??? Cataract ??? 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 No history fertility medications. She used oral contraceptives in the past. One does progesterone 08/2014. She experienced menopause approximately age 53. Allergies Allergen Reactions ??? Adhesive Hives Paper tape OK ??? Cyclizine Other (See comments) and Hallucinations Marezine about 1981 Reaction: Urinary retention Med List Status: Nurse Complete Set By: Matt Driver RN at 09/05/2022 11:35 AM Taking? Last Dose Start Date End Date Provider acetaminophen (TYLENOL) 325 mg tablet Past Week 04/10/22 -- Asha Hines NP Take 2 [...] period. aspirin 81 mg enteric coated tablet 09/18/2022 05/28/22 -- Abdiaziz Moss MD Take 1 tablet (81 mg total) by mouth daily Patient taking differently: Take 1 tablet (81 mg total) by mouth every morning 06/2022 brain aneurysm atenoloL (TENORMIN) 25 mg tablet 09/18/2022 09/16/22 -- Harpal De León MD TAKE 1 TABLET(25 MG) BY MOUTH DAILY bzrpacjsli-ejtjpudymqupx-dinfszdv-codeine (FIORICET WITH CODEINE) 02-917-18-30 mg per capsule Past Month 04/15/22 -- Sylvia Dawson PA Take 1 capsule by mouth every 4 (four) hours as needed for headaches ezetimibe (ZETIA) 10 mg tablet 09/18/2022 08/06/22 08/06/23 Nazia Ventura MD Take 1 tablet (10 mg total) by mouth daily Patient taking differently: Take 1 tablet (10 mg total) by mouth every morning famotidine-Ca carb-mag hydrox (PEPCID COMPLETE) 10-800-165 mg chewable tablet Past Week -- -- Ronda Ruano MD FLUoxetine (PROzac) 20 mg capsule 09/18/2022 02/27/22 -- Sylvia Dawson PA Take 1 capsule (20 mg total) by mouth 2 (two) times a day folic acid (FOLVITE) 1 mg tablet 09/18/2022 08/22/22 -- Patricia Martinez MD Take 2 tablets (2,000 mcg total) by mouth daily Patient taking differently: Take 2 tablets (2,000 mcg total) by mouth every morning hydroCHLOROthiazide (HYDRODIURIL) 12.5 mg tablet 09/18/2022 09/01/22 -- Sylvia Dawson PA TAKE 1 TABLET(12.5 MG) BY MOUTH DAILY Patient taking differently: Take 1 tablet (12.5 mg total) by mouth daily as needed (when BP is elevated for a few days) hydrOXYchloroQUINE (PLAQUENIL) 200 mg tablet 09/18/2022 07/02/22 -- Patricia Martinez MD TAKE 1 TABLET(200 MG) BY MOUTH DAILY Patient taking differently: Take 1 tablet (200 mg total) by mouth every morning lisinopriL (PRINIVIL,ZESTRIL) 40 mg tablet 09/19/2022 07/17/22 -- Sylvia Dawson PA Take 1 tablet (40 mg total) by mouth daily Patient taking differently: Take 1 tablet (40 mg total) by mouth every morning Notes: Please cancel Rx for 20mg to avoid duplicate therapy magnesium gluconate 200 mg tablet 09/18/2022 -- -- Ronda Ruano MD methotrexate 2.5 mg tablet -- 08/22/22 -- Patricia Martinez MD Take 8 tablets on Patient taking differently: Take by mouth every 7 days Take 8 tablets on multivitamin with minerals tablet 09/18/2022 -- -- Ronda Ruano MD sulfaSALAzine EN (AZULFIDINE EN) 500 mg EC tablet 09/18/2022 07/13/22 -- Patricia Martinez MD TAKE 2 TABLETS(1000 MG) BY MOUTH TWICE DAILY Patient taking differently: Take 2 tablets (1,000 mg total) by mouth every morning valACYclovir (Valtrex) 500 mg tablet 09/18/2022 02/27/22 -- Sylvia Dawson PA Take 1 tablet (500 mg total) by mouth daily Patient taking differently: Take 1 tablet (500 mg total) by mouth every morning vit N-L-ifakzy-zinc-lutein (PreserVision Lutein) 226-90-0.8-5 mg capsule 09/18/2022 -- -- Ronda Ruano MD Flag for Review Taking? Last Dose Start Date End Date Provider ticagrelor (BRILINTA) 60 mg tablet Past Month 05/27/22 -- Abdiaziz Moss MD Take 1 tablet (60 mg total) by mouth 2 (two) times a day Patient taking differently: Take 1 tablet (60 mg total) by mouth 2 (two) times a day Current Facility-Administered Medications: ??? Carrier Fluids for Secondary Infusion - 0.9% Sodium Chloride, 30 mL, intravenous, PRN ??? famotidine (PEPCID) injection 20 mg, 20 mg, intravenous, Once PRN ??? Lactated Ringer's (LR) infusion, 30 mL/hr, intravenous, Continuous, Last Rate: 30 mL/hr at 09/19/22629, 30 mL/hr at 09/19/22629 ??? lidocaine PF (XYLOCAINE) 10 mg/mL (1 %) preservative free injection 2-10 mg, 0.2-1 mL, subcutaneous, Once PRN ??? scopolamine patch 72 hour 1 patch, 1 patch, transdermal, Q72H ??? sodium chloride 0.9% flush 0.5-20 mL, 0.5-20 mL, intra-catheter, PRN ??? sodium chloride 0.9% flush 0.5-20 mL, 0.5-20 mL, intra-catheter, PRN Social History Tobacco Use Smoking Status Never ??? Passive exposure: Never Smokeless Tobacco Never Vaping Use ??? Vaping Use: Never used Alcohol Use: Not At Risk (09/19/2022) AUDIT-C ??? Frequency of Alcohol Consumption: Monthly [...] were no vitals filed for this visit. PT: No results found for requested labs within last 30 days. INR: No results found for requested labs within last 30 days. APTT: No results found for requested labs within last 30 days. Hgb A1C: No results found for requested labs within last 30 days. CBC RBC: No results found for requested labs within last 30 days. RDW: No results found for requested labs within last 30 days. MCHC: No results found for requested labs within last 30 days. MCH: No results found for requested labs within last 30 days. MCV: No results found for requested labs within last 30 days. Hct: No results found for requested labs within last 30 days. Hgb: No results found for requested labs within last 30 days. WBC: No results found for requested labs within last 30 days. MPV: No results found for requested labs within last 30 days. Platelets: No results found for requested labs [...] Airway Exam: Mallampati: I Cervical ROM: FROM Cardiovascular Exam: Rate: regular Rhythm: regular Negative for Murmur Pulmonary Exam: LCTA, bilat EENT Exam: trachea midline Dental Exam: Appears intact Skin Exam: Skin is warm and dry. Current state: Patient's current state is cooperative and interactive. Anesthesia Plan ASA 3 My patient is approved for the Anesthesia Controlled Medication protocol when under care of a FLOOR ASSOCIATE Planned anesthesia: MAC Induction: Induction: intravenous. Postoperative Plan: No plan for postoperative opioid use. No postoperative mechanical ventilation intended. Patient's planned disposition post procedure is Outpatient. Informed Consent: Anesthesia plan and risks discussed with patient and spouse. Plan and Consent Comments: IV propofol to level of moderate to deep sedation Consent and Attending signature: I and/or my [...] 6:30 AM CDT 30 mL/hr 30 mL/hr lidocaine PF (XYLOCAINE) 10 mg/mL (1 %) preservative free injection intravenous, As needed, Starting on Thu09/19/22 at 0800, Anesthesia Intra-op Given 09/19/2022 8:00 AM CDT 50 mg propofoL (DIPRIVAN) 10 mg/mL IV intravenous, As needed, Starting on Thu09/19/22 at 0800, Anesthesia Intra-op Given 09/19/2022 8:01 AM CDT 10 mg Given 09/19/2022 8:00 AM CDT 40 mg documented in this encounter Care Teams Installment Dealer Relationship Specialty Start Date End Date Sylvia Dawson PA [address] [facility] [address] [place] [address] PCP - General Internal Medicine 01/05/20 Erica Rodrigues MD [address] [facility] [address] [facility] [address] [place] [address] Radiation Oncologist Radiation Oncology 10/25/18 Gasper Kaba MD [address] [facility] [address] [facility] [address] [place] [address] Surgeon Surgical Oncology 10/25/18 Brandy Aguirre CNS [address] [facility] [address] [facility] [address] [place] [address] Nurse Practitioner Certified Clinical Nurse Specialist 10/25/18 Jo-Ann Morrow, PhD [address] [facility] [address] [place] [address] Nurse Practitioner Radiation Oncology 10/25/18 Christina Louis DITCH INSPECTOR [address] [facility] [address] [place] [address] Nurse Practitioner Medical Oncology 10/25/18 documented as of this encounter
--- OUTSIDE RECORDS SUMMARY | 2024-04-24 05:50 | XMS_ITS | Encounter Summary ---
Author Organization [facility] Address [address] [place] [address] Care Team Providers Care Patient Observer Name Role Phone Erica Rodrigues MD Unavailable Gasper Kaba MD Unavailable [phone] Brandy Aguirre CARPENTER SUPERVISOR WOODEN SHIP Unavailable [phone] Jo-Ann Morrow PhD Unavailable [phone] Christina Louis IMPLEMENTATION LEAD Unavailable [phone] Sylvia Dawson Primary Care Provider [phone] Reason for Visit * Reason Onset Date Comments Hypertension 07/17/2022 Medication Request 07/17/2022 Encounter Details Date Type Department Care Team (Late st Contact Info) Description 07/17/2022 Nurse Triage [facility] Family Medicine [address] [place] [address] Sylvia Dawson PA [address] [place] [address] Social History Tobacco Use Types Packs/Day Years Used Date Smoking Tobacco: Never Passive Smoke Exposure: Never Smokeless Tobacco: Never Alcohol Use Standard Drinks/Week Comments Yes 1 (1 standard drink = 0.6 oz pur e alcohol) social AUDIT-C Answer Date Recorded Q1: How often do you have a drink containing alc ohol? Monthly or less 09/05/2022 Q2: How many drinks containi ng alcohol do you have on a typical day when you are drinking? 1 or 2 09/05/2022 Q3: How often do you have si x or more drinks on one occasion? 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 Rx for 40mg one daily sent * Telephone Encounter - Coni Corbin LPN - 07/17/2022 1:45 PM CDT Called and spoke to pt and she stated that she has been taking Lisinopril 20mg 2 tabs to equal 40mgfor a long time. Records of medications do show this medication dosing per her last visit. She stated she saw Valorie Young MD on Thursday who is a blood pressure specialist who stated to continue the current dose of Lisinopril. Pt stated when she went to get it filled that it stated that insurance said it was too early to fill. Will pend for an order for Lisinopril 40mg po daily to ensure insurance will push it through * Telephone Encounter - Iva Cloud RN - 07/17/2022 1:06 PM CDT Access Center Nurse Triage: Last office visit 04/22/22 Patient just noticed today she was out of Lisinopril. She states she takes Lisinopril 40mg once daily ( I've been on 40mg forever ). She would like one 40mg tablet once a day to be sent to her local [facility]. Patients chart indicates Lisinopril 20mg daily. mixer driver is unable to refill because of the discrepency. Patient would like a call back to let her know once the script has been sent. Reason for Disposition Prescription refill request for ESSENTIAL medicine (i.e., likelihood of harm to patient if not taken) and triager unable to refill per department policy Protocols used: Medication Refill and Renewal [id number] * Telephone Encounter - Iva Cloud RN - 07/17/2022 12:57 PM CDT Regarding: high blood pressure ----- Message from Valorie Nicole sent at 07/17/2022 12:56 PM CDT ----- Symptom Based Call Caller's Callback #: [phone] Chief Complaint(s): high blood pressure Duration: 2005 What type of symptom(s) is the patient experiencing? Red Flag. Is the patient concerned they are experiencing a medical emergency requiring an ambulance? No Additional Comments: Please reference to refill request 4.6.23. Patient is needing a refill for lisinopril. She states she previously was taking 1x a day and now she is needing to take 2x a day. Patient also states she saw a Hypertension specialist as well on Thursday Does message need to be routed?Yes-Action Needed documented in this encounter Plan of Treatment Not on file documented as of this encounter Visit Diagnoses Not on filedocumented in this encounter Care Teams Patient Observer Relationship Specialty Start Date End Date Sylvia Dawson PA [address] [place] [address] PCP - General Internal Medicine 01/05/20 Erica Rodrigues MD [address] [facility] [facility] [address] [place] [address] Radiation Oncologist Radiation Oncology 10/25/18 Gasper Kaba MD [address] [facility] [address] [place] [address] Surgeon Surgical Oncology 10/25/18 Brandy Aguirre, CARINA [address] [facility] [address] [place] [address] Nurse Practitioner Certified Clinical Nurse Specialist 10/25/18 Jo-Ann Morrow, PhD [address] [facility] [address] [place] [address] Nurse Practitioner Radiation Oncology 10/25/18 Christina Louis IMPLEMENTATION LEAD [address] [facility] [address] [place] [address] Nurse Practitioner Medical Oncology 10/25/18 documented as of this encounter
--- OUTSIDE RECORDS SUMMARY | 2024-04-24 05:50 | XMS_ITS | Encounter Summary ---
Author Organization [facility] Address [address] [place] [address] Phone Care Team Providers Care Micro Lab Analyst Name Role Phone Erica Rodrigues MD Unavailable Gasper Kaba MD Unavailable Brandy Aguirre DIRECTOR EHS Unavailable [phone] Jo-Ann Morrow PhD Unavailable [phone] Christina Louis COMPENSATION VICE PRESIDENT Unavailable [phone] Sylvia Dawson Primary Care Provider [phone] Reason for Referral * Diagnostic Imaging (Routine) - Closed Specialty Diagnoses / Procedures Referred By Contac t Referred To Contact Diagnoses Cystoid macular edema of both eyes Procedures OCT, Retina - OU - Both Eyes Jessy Adame MD [address] [facility] [address] [place] [address] Phone: tel: fax: [facility] (All Locations) Referral ID Status Reason Start Date Expiration Date Visits Re quested Visits Authorized [id number] Closed 11/12/2022 12/12/2023 1 1 Reason for Visit * Reason Comments Cystoid macular edema of both eyes Encounter Details Date Type Department Care Team (Late st Contact Info) Description 11/12/2022 8:20 AM CDT Office Visit [facility] Ophthalmology [address] [facility] 6th [place] [address] Jessy Adame MD [address] [facility] [address] [place], [place] [id number] Cystoid macular edema of both eyes (Primary [...] on file 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 Feels eyes are improving. Ocular meds: Durezol QID OD, AFT prn OU, Methotrexate weekly (every ) FA 2g weekly Last edited by Mirtha Fisher on 11/12/2022 8:42 AM. Assessment/Plan Diagnoses and all orders for this visit: Cystoid macular edema of both eyes (Primary) Assessment & Plan: Only with trace macular edema in the right eye. I have encouraged her to stay on the drops 4 times a day (Durezol). We will re-evaluate in roughly 4 weeks time. If remains stable at that time will try to wean slowly from Durezol. Orders: - OCT, Retina - OU - [...] VISIT Follow-up and Dispositions Return in about 4 weeks (around 12/10/2022) for Dilated exam OU, OCT OU. documented in this encounter Miscellaneous Notes * Assessment & Plan Note - Jessy Adame MD - 11/12/2022 9:06 AM CDT Associated Problem(s): Cystoid macular edema of both eyes Only with trace macular edema in the right eye. I have encouraged her to stay on the drops 4 times a day (Durezol). We will re-evaluate in roughly 4 weeks time. If remains stable at that time will try to wean slowly from Durezol. documented in this encounter Plan of Treatment Not on file documented as of this encounter Procedures Procedure Name Priority Date/Time Associated Diagnosis Comments OCT, RETINA - OU - BOTH EYES Routine 11/12/2022 9:04 AM CDT Cystoid macular edema of both eyes documented in this encounter Results * OCT, Retina - OU - Both Eyes (11/12/2022 9:04 AM CDT) Anatomical Region Laterality Modality Head Optical Coherenc e Tomography Narrative 11/12/2022 9:04 AM CDT Right Eye Quality was good. [...] eye Dist sc 20/20 20/20 Tonometry (Tonopen, 8:47 AM) Right eye Left eye Pressure 14 11 Pupils Pupils Dark Light Shape React APD Right eye PERRL 5 4 Round Brisk None Left eye PERRL 5 4 Round Brisk None Neuro/Psych Oriented x3: Yes Mood/Affect: Normal Dilation Both eyes: 1.0% Mydriacyl @ 8:45 AM External Exam Right eye Left eye [...] Periphery Cystoid macular edema attached Care Teams Micro Lab Analyst Relationship Specialty Start Date End Date Sylvia Dawson PA [address] [place] [address] PCP - General Internal Medicine 01/05/20 Erica Rodrigues MD [address] [facility] [address] [place] [address] Radiation Oncologist Radiation Oncology 10/25/18 Gasper Kaba MD [address] [facility] [address] [place] [address] Surgeon Surgical Oncology 10/25/18 Brandy Aguirre CNS [address] [facility] [address] [place] [address] Nurse Practitioner Certified Clinical Nurse Specialist 10/25/18 Jo-Ann Morrow, PhD [address] [facility] [address] [facility] [address] [place] [address] Nurse Practitioner Radiation Oncology 10/25/18 Christina Louis, COMPENSATION VICE PRESIDENT [address] [facility] [address] [facility] [address] [place] [address] Nurse Practitioner Medical Oncology 10/25/18 documented as of this encounter
--- OUTSIDE RECORDS SUMMARY | 2024-04-24 05:50 | XMS_ITS | Encounter Summary ---
Author Organization [facility] Address [address] [place] [address] Phone Care Team Providers Care Director Consumer Name Role Phone Erica Rodrigues MD Unavailable Gasper Kaba MD Unavailable Brandy Aguirre GLUE SPECIALTY SUPERVISOR Unavailable Jo-Ann Morrow PhD Unavailable Christina Louis JUNK REMOVAL SPECIALIST Unavailable [phone] Sylvia Dawson Primary Care Provider [phone] Reason for Referral * Diagnostic Imaging (Routine) - Closed Specialty Diagnoses / Procedures Referred By Contac t Referred To Contact Diagnoses Cystoid macular edema of both eyes Procedures OCT, Retina - OU - Both Eyes Jessy Adame MD [address] [place] [address] 6 [place] [address] Phone: tel: fax: [facility] (All Locations) Referral ID Status Reason Start Date Expiration Date Visits Re quested Visits Authorized [id number] Closed 10/06/2022 11/05/2023 1 1 Encounter Details Date Type Department Care Team (Late st Contact Info) Description 10/06/2022 9:30 AM CDT Office Visit [facility] Ophthalmology 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 HPI 1 week PO s/p: PPV OD Pt states she has a shadow sometimes nasally lasting a few hrs and sometimes its temporally. VA seems more blurry OD. Something doesn't look quite right on the Amsler grid. She has had 3-4 days outof the past week of migraine symptoms. Eye pain is now gone, no redness. PF QID OD Prednisone 10mg tablet daily Methotrexate Last edited by Otilia Francisco COA on 10/06/2022 9:46 AM. Assessment/Plan Diagnoses and all orders for [...] surgery and persistent macular edema but fortunately Isee no other retinal pathology to explain her symptoms. Recommend follow up for migrane with PMD Orders: - OCT, Retina - OU - Both Eyes Scleritis and episcleritis of left eye Assessment & Plan: Currently on low-dose (10 mg) prednisone daily. We will be changing to 5 mg a day for a week and then stopping its use altogether. Scleritis appears to be significantly improved. OCT, Retina - OU - Both Eyes [...] Dispositions Return in about 3 weeks (around 10/27/2022) for Dilated exam OU, OCT OU. documented in this encounter Miscellaneous Notes * Assessment & Plan Note - Jessy Adame MD - 10/06/2022 10:58 AM CDT Associated Problem(s): Cystoid macular edema [...] surgery and persistent macular edema but fortunately Isee no other retinal pathology to explain her symptoms. Recommend follow up for migrane with PMD * Assessment & Plan Note - Jessy Adame MD - 10/06/2022 10:56 AM CDT Associated Problem(s): Scleritis and episcleritis of left eye Currently on low-dose (10 mg) prednisone daily. We will be changing to 5 mg a day for a week and then stopping its use altogether. Scleritis appears to be significantly improved. documented in this encounter Plan of Treatment Not on file documented as of this encounter Procedures Procedure Name Priority Date/Time Associated Diagnosis Comments OCT, RETINA - OU - BOTH EYES Routine 10/06/2022 10:56 AM CDT Cystoid macular edema of both eyes documented in this encounter Results * OCT, Retina - OU - Both Eyes (10/06/2022 10:56 AM CDT) Anatomical Region Laterality Modality Head Optical Coherenc e Tomography Narrative 10/06/2022 10:56 AM CDT Right Eye Quality was good. [...] of left eye documented in this encounter Eye Exam Visual Acuity (Snellen - Linear) Right eye Left eye Dist sc 20/20 Tonometry (Applanation, 9:48 AM) Right eye Left eye Pressure 12 Neuro/Psych Oriented x3: Yes Mood/Affect: Normal Dilation Right eye: 1.0% Mydriacyl @ 9:49 AM Slit Lamp Exam Right eye Left eye [...] Ratio 0.3 Macula Normal Vessels Normal Periphery Attached to depression 360. Care Teams Director Consumer Relationship Specialty Start Date End Date Sylvia Dawson PA [address] [place] [address] PCP - General Internal Medicine 01/05/20 Erica Rodrigues MD [address] [facility] [address] [place] [address] Radiation Oncologist Radiation Oncology 10/25/18 Gasper Kaba MD [address] [facility] [address] [place] [address] Surgeon Surgical Oncology 10/25/18 Brandy Aguirre, GLUE SPECIALTY SUPERVISOR [address] [facility] [address] [place] [address] Nurse Practitioner Certified Clinical Nurse Specialist 10/25/18 Jo-Ann Morrow, PhD [address] [facility] [address] [place] [address] Nurse Practitioner Radiation Oncology 10/25/18 Christina Louis NP [address] [facility] [address] [place] [address] Nurse Practitioner Medical Oncology 10/25/18 documented as of this encounter
--- OUTSIDE RECORDS SUMMARY | 2024-04-24 05:50 | XMS_ITS | Encounter Summary ---
Author Organization [facility] Address [address] [place] [address] Phone Care Team Providers Care Hub Associate Name Role Phone Erica Rodrigues MD Unavailable Gasper Kaba MD Unavailable [phone] Brandy Aguirre JEWELRY DEPARTMENT SUPERVISOR Unavailable [phone] Jo-Ann Morrow PhD Unavailable [phone] Christina Louis CONE BAKER MACHINE Unavailable [phone] Sylvia Dawson Primary Care Provider [phone] Reason for Referral * Consultation (Routine) - Closed Specialty Diagnoses / Procedures Referred By Contac t Referred To Contact Neurology Diagnoses Chronic tension-type headache, not intractable Cerebral aneurysm, nonruptured Lizzie Green NP [address] [place] [address] Phone: tel: fax: Fatimah Benavides MD PhD [address] [place] [address] Phone: tel: fax: Referral ID Status Reason Start Date Expiration Date V isits Requested Visits Authorized [id number] Closed Specialty Services Required 10/10/2022 11/09/2023 1 1 Question Answer Please select the performing region: [facility] (All Locations) [167] To provider: FATIMAH BENAVIDES [[id number]] # of visits: 1 Comments Headache management. Elvis per Dr. 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 Not on file Not on file Not on file documented as of this encounter Plan of Treatment Scheduled Referrals Name Type Priority Associated Diagnoses Orde r Schedule Ambulatory referral to Neurology Outpatient Referral Routine Chronic tension-type headache, not intractable Cerebral aneurysm, nonruptured Expected: 10/24/2022 (Approximate), Expires: 10/11/2023 documented as of this encounter Visit Diagnoses Diagnosis Chronic tension-type headache, not intractable- Primary Chronic tension type headache Cerebral aneurysm, nonruptured documented in this encounter Care Teams Hub Associate Relationship Specialty Start Date End Date Sylvia Dawson PA [address] [facility] [place] [address] PCP - General Internal Medicine 01/05/20 Erica Rodrigues MD [address] [place] [address] Radiation Oncologist Radiation Oncology 10/25/18 Gasper Kaba MD [address] [place] [address] Surgeon Surgical Oncology 10/25/18 Brandy Aguirre CNS [address] [place] [address] Nurse Practitioner Certified Clinical Nurse Specialist 10/25/18 Jo-Ann Morrow, PhD [address] [place] [address] Nurse Practitioner Radiation Oncology 10/25/18 Christina Louis NP [address] [place] [address] Nurse Practitioner Medical Oncology 10/25/18 documented as of this encounter
--- OUTSIDE RECORDS SUMMARY | 2024-04-24 05:51 | XMS_ITS | Encounter Summary ---
Author Organization [facility] Address [address] [place] [address] Phone Care Team Providers Care Dolphin Trainer Name Role Phone Erica Rodrigues MD Unavailable Gasper Kaba MD Unavailable Brandy Aguirre DIRECTOR EMERGENCY SERVICES Unavailable [phone] Jo-Ann Morrow PhD Unavailable [phone] Christina Louis AEGIS CONSOLE OPERATOR TRACK Unavailable [phone] Sylvia Dawson Primary Care Provider [phone] Encounter Details Date Type Department Care Team (Late st Contact Info) Description 05/28/2022 Orders Only [facility] Neurosurgery [address] [facility] 6th [place] [address] [place] [address] Abdiaziz Moss MD [address] [place] [address] Social History Tobacco Use Types Packs/Day Years Used Date Smoking Tobacco: Never Passive Smoke Exposure: Never Smokeless Tobacco: Never Alcohol Use Standard Drinks/Week Comments Yes 1 (1 standard drink = 0.6 oz pur e alcohol) social AUDIT-C Answer Date Recorded Q1: How often do you have a drink containing alc ohol? Monthly or less 05/27/2022 Q2: How many drinks containi ng alcohol do you have on a typical day when you are drinking? 1 or 2 05/27/2022 Q3: How often do you have si x or more drinks on one occasion? 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 Not on file Not on file documented as of this encounter Ordered Prescriptions Prescription Sig Dispense Quantity Refills Last Filled Start Date End Date aspirin 81 mg enteric coated tablet Take 1 tablet (81 mg total) by mouth daily 90 tablet 3 05/28/2022 documented in this encounter Plan of Treatment Not on file documented as of this encounter Visit Diagnoses Not on filedocumented in this encounter Discontinued Medications Medication Sig Discontinue Reason Start Date End Da te aspirin 325 mg tablet Take 1 tablet (325 mg total) by mouth daily 05/19/2022 05/28/2022 documented as of this encounter Care Teams Dolphin Trainer Relationship Specialty Start Date End Date Sylvia Dawson PA [facility] [address] [place] [address] PCP - General Internal Medicine 01/05/20 Erica Rodrigues MD [address] [address] Radiation Oncologist Radiation Oncology 10/25/18 Gasper Kaba MD [address] [facility] [address] [place] [address] Surgeon Surgical Oncology 10/25/18 Brandy Aguirre CNS [address] [facility] [address] [place] [address] Nurse Practitioner Certified Clinical Nurse Specialist 10/25/18 Jo-Ann Morrow, PhD [address] [place], [place] [address] Nurse Practitioner Radiation Oncology 10/25/18 Christina Louis, AEGIS CONSOLE OPERATOR TRACK [address] [place], [place] [address] Nurse Practitioner Medical Oncology 10/25/18 documented as of this encounter
--- OUTSIDE RECORDS SUMMARY | 2024-04-24 05:51 | XMS_ITS | Encounter Summary ---
Author Organization [facility] Healthcare Address [address] [place] [address] Care Team Providers Care Lunchroom Worker Name Role Phone Erica Rodrigues MD Unavailable Gasper Kaba MD Unavailable Brandy Aguirre Unavailable [phone] Jo-Ann Morrow PhD Unavailable [phone] Christina Louis NP Unavailable [phone] Sylvia Dawson Primary Care Provider [phone] Reason for Referral * Sleep Medicine (Routine) - Closed Specialty Diagnoses / Procedures Referred By Niranjan farrell Referred To Contact Diagnoses Daytime sleepiness Snoring Procedures Portable/Home Sleep Study Meme Kraft, [facility] [address] [facility] [address] [address] Phone: tel: fax: [facility] [address] [place] [address] Phone: tel: fax: Referral ID Status Reason Start Date Expiration Date Visits Re quested Visits Authorized [id number] Closed 03/20/2022 05/18/2022 1 1 IOVASCULAR RN Reason for Visit * Sleep Medicine (Routine) - Closed Specialty Diagnoses / Procedures Referred By Niranjan t Referred To Contact Diagnoses Daytime sleepiness Snoring Procedures Portable/Home Sleep Study Meme Kraft, [employer] [facility] [address] [facility] [address] [place] [address] [place] [address] Phone: tel: fax: [facility] [address] [place] [id number] Phone: tel: fax: Referral ID Status Reason Start Date Expiration Date Visits Re quested Visits Authorized [id number] Closed 03/20/2022 05/18/2022 1 1 Encounter Details Date Type Department Care Team (Latest Contact Info) Description 05/06/2022 10:00 AM CARDIOVASCULAR RN - 05/06/2022 11:59 PM CARDIOVASCULAR RN Hospital Encounter [facility] [address] [place] [address] Daytime sleepiness; Snoring Discharge Disposition: Discharge to home or self care Social History Tobacco Use Types Packs/Day Years Used Date Smoking Tobacco: Never Passive Smoke Exposure: Never Smokeless Tobacco: Never Alcohol Use Standard Drinks/Week Comments Yes 1 (1 standard drink = 0.6 oz pur e alcohol) social AUDIT-C Answer Date Recorded Q1: How often do you have a drink containing alc ohol? Monthly or less 04/08/2022 Q2: How many drinks containi ng alcohol do you have on a typical day when you are drinking? 1 or 2 04/08/2022 Q3: How often do you have si x or more drinks on one occasion? Never 04/08/2022 PHQ-2 Answer Date Recorded PHQ-2 Total Score (If total score is 3 or more points, staff should administer the PHQ-9) 0 04/22/2022 Comments No Sex and Gender Information Value Date Recorded Sex Assigned at Not on file Legal Sex Female 3:42 AM CARDIOVASCULAR RN Gender Identity Not on file Sexual Orientation [...] acetaminophen in a 24 hour period. 04/10/2022 multivitamin with minerals tabletIndication s:Vitamin Deficiency Prevention Take 1 tablet by mouth every morning vit R-C-kamwug-zinc- lutein (PreserVision Lutein) 226-90-0.8-5 mg capsuleIndicatio ns:Eye support Take 1 tablet by mouth 2 (two) times a day difluprednate (DUREZOL) 0.05 % dropsIndications :Cystoid macular edema of both eyes Administer 1 drop into the left eye 3 (three) times a day for 14 days, THEN 1 drop 2 (two) times a day for 14 days, THEN 1 drop daily for 14 days. 10 mL 11 03/27/2022 3 aspirin 325 mg tablet Take 1 tablet (325 mg total) by mouth daily 30 tablet 04/11/2022 3 atenoloL (TENORMIN) 25 mg tablet TAKE 1 TABLET(25 MG) BY MOUTH DAILY 90 tablet 1 03/10/2022 3 butalbital-aceta minophen-caffein e-codeine (FIORICET WITH CODEINE) 39-166-17-30 mg per capsuleIndicatio ns:Tension-Type Headache Take 1 capsule by mouth every 4 (four) hours as needed for headaches 20 capsule 04/15/2022 3 calcium carbonate/vitami n D3 (CALTRATE 600 PLUS D ORAL) Take 1 tablet by mouth every morning 3 coenzyme Q10 200 mg capsule Take 1 capsule (200 mg total) by mouth every morning 3 dorzolamide (TRUSOPT) 2 % ophthalmic solutionIndicati ons:Cystoid macular edema of both eyes Administer 1 drop into the left eye 3 (three) times a day 10 mL 11 03/12/2022 3 FLUoxetine (PROzac) 20 mg capsuleIndicatio ns:Vasomotor symptoms due to menopause Take 1 capsule (20 mg total) by mouth 2 (two) times a day 180 capsule 1 02/27/2022 3 folic acid (FOLVITE) 1 mg tablet Take 2 tablets (2,000 mcg total) by mouth daily 180 tablet 3 09/16/2021 3 hydroCHLOROthiaz allegra (HYDRODIURIL) 12.5 mg tablet Take 1 tablet (12.5 mg total) by mouth daily 30 tablet 04/22/2022 3 hydrOXYchloroQUI NE (PLAQUENIL) 200 mg tablet Take 1 tablet (200 mg total) by mouth daily 90 tablet 2 07/10/2021 3 lisinopriL (PRINIVIL,ZESTRI L) 20 mg tablet Take 1 tablet (20 mg total) by mouth daily 90 tablet 1 02/27/2022 3 methotrexate 2.5 mg tablet TAKE 8 TABLETS BY MOUTH ONCE A WEEK DIRECTED 96 tablet 03/05/2022 3 sulfaSALAzine EN (AZULFIDINE EN) 500 mg EC tablet Take 2 tablets (1,000 mg total) by mouth 2 (two) times a day 360 tablet 04/09/2022 3 ticagrelor (Brilinta) 90 mg tablet Take 1 tablet (90 mg total) by mouth 2 (two) times a day 180 tablet 3 05/02/2022 3 traMADoL (ULTRAM) 50 mg tabletIndication s:Pain Take 50 mg by mouth every 6 (six) hours as needed for pain 03/17/2022 3 turmeric root extract 500 mg capsule Take 500 mg by mouth every morning 3 valACYclovir (Valtrex) 500 mg tabletIndication s:Recurrent cold sores Take 1 tablet (500 mg total) by mouth daily 90 tablet 2 02/27/2022 4 zinc 50 mg tablet Take 50 mg by mouth every morning 3 documented as of this encounter Discharge Disposition Disposition Code Departure Means Destination Discharge to home or self care documented in this encounter Miscellaneous Notes * Addendum Note - Douglas Acosta MD - 05/06/2022 10:00 AM CSTEncounter addended by: Douglas Acosta MD on: 05/08/2022 12:17 PM Actions taken: Charge Capture section accepted IOVASCULAR RN documented in this encounter Plan of Treatment Not on file documented as of this encounter Procedures Procedure Name Priority Date/Time Associated Diagnosis Comments PORTABLE/HOME SLEEP STUDY Routine 05/06/2022 10:00 AM CARDIOVASCULAR RN Daytime sleepiness Snoring documented in this encounter Results * Portable/Home Sleep Study (05/06/2022 10:00 AM CARDIOVASCULAR RN) Meme Kraft [facility] ORDERABLES Final Result [facility] [address] [place] [address] documented in this encounter Visit Diagnoses Diagnosis Daytime sleepiness Snoring Other dyspnea and respiratory abnormality documented in this encounter Care Teams Lunchroom Worker Relationship Specialty Start Date End Date Sylvia Dawson PA [address] [place], [place] [id number] PCP - General Internal Medicine 01/05/20 Erica Rodrigues MD [address] [place] [address] Radiation Oncologist Radiation Oncology 10/25/18 Gasper Kaba MD [address] [place] [address] Surgeon Surgical Oncology 10/25/18 Brandy Aguirre, TRAIN DISPATCHER [address] [place] [address] Nurse Practitioner Certified Clinical Nurse Specialist 10/25/18 Jo-Ann Morrow, PhD [address] [place] [address] Nurse Practitioner Radiation Oncology 10/25/18 Christina Louis NP [address] [facility] [address] [place] [address] Nurse Practitioner Medical Oncology 10/25/18 documented as of this encounter
--- OUTSIDE RECORDS SUMMARY | 2024-04-24 05:51 | XMS_ITS | Encounter Summary ---
Author Organization [facility] Address [address] [facility] [address] [place] [address] Care Team Providers Care Head Start Director Name Role Phone Erica Rodrigues MD Unavailable Gasper Kaba MD Unavailable [phone] Brandy Aguirre HEALTH THERAPIST Unavailable [phone] Jo-Ann Morrow PhD Unavailable [phone] Christina Louis BOOKER Unavailable [phone] Sylvia Dawson Primary Care Provider [phone] Reason for Visit * Reason Comments Successful Phone Call [facility] Encounter Details Date Type Department Care Team (Late st Contact Info) Description 04/11/2022 LINDY IP Outreach [facility] Accountable Care Organization [address] [place] [address] Tayler Cardenas LPN [address] [place] [address] [address] [place] [address] Social History Tobacco Use Types Packs/Day Years [...] points, staff should administer the PHQ-9) 0 02/26/2021 Comments No Sex and Gender Information Value Date Recorded Sex Assigned at Not on file Legal Sex Female 3:42 AM OUTREACH AND EDUCATION SOCIAL WORKER Gender Identity Not on file Sexual Orientation Not on file 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 Patient status post-discharge: Q1 - Better Status Details: - Patient reports that she is doing well but does report that her surgery did not go as planned. Patient states that she was supposed to get a stent in her right carotid and then theywere supposed to fix her aneurysm but states that they went into the left side and had to place another stent. Patient states that she has had some pain on the left side this morning and has contacted the neurosurgery from the hospital and is awaiting a call back from them regarding this pain. Patient does report that she has had a headache which could be from the anesthesia wearing off. Patient is requesting a refill on her Fioricet with codeine. Care assistant track and field coach will place a message off to primary care providers office asking for a refill on this medication. Discharge Instructions Reviewed - Yes Details: - Patient does confirm to have her discharge instructions from the hospital and does not currently have any questions or concerns for care assistant track and field coach regarding the information in the discharge instructions. Medication Reconciliation Completed: - Yes Details: - Patient states that she does have all of her maintenance medications along with the acetaminophen 325 mg tablet - Take 2 tablets (650 mg total) by mouth every 6 (six) hours as needed for pain Do not exceed 4000 mg of acetaminophen in a 24-hour period. No questions or concerns regarding the medication. Care assistant track and field coach will send a refill request on the Fioricet with codeine. Appointment status: - Care Recyclable Products Sorter scheduled Appointment Date: 04/22/2022, Care assistant track and field coach was able to schedule patient a follow up with primary care provider on April 22 at 1:00 PM. Patient educated about same day sick appts at PCP office and s/s to report to physician. Pt verbalized understanding of information presented. No additional needs identified at this time. Provided mycontact information for future needs. Tayler Cardenas LPN, ACO Care Recyclable Products Sorter [facility] Accountable Care Organization / [facility] Contact E-Mail - [email or web address] or [phone] EACH AND EDUCATION SOCIAL WORKER documented in this encounter Plan of Treatment Not on file documented as of this encounter Visit Diagnoses Not on filedocumented in this encounter Care Teams Head Start Director Relationship Specialty Start Date End Date Sylvia Dawson PA [facility] [address] [place] [address] PCP - General Internal Medicine 01/05/20 Erica Rodrigues MD [address] [facility] [address] [place] [address] Radiation Oncologist Radiation Oncology 10/25/18 Gasper Kaba MD [address] [facility] [address] [place] [address] Surgeon Surgical Oncology 10/25/18 Brandy Aguirre CNS [address] [place] [address] Nurse Practitioner Certified Clinical Nurse Specialist 10/25/18 Jo-Ann Morrow, PhD [address] [place] [address] Nurse Practitioner Radiation Oncology 10/25/18 Christina Louis NP [address] [place] [address] Nurse Practitioner Medical Oncology 10/25/18 documented as of this encounter
--- OUTSIDE RECORDS SUMMARY | 2024-04-24 05:51 | XMS_ITS | Encounter Summary ---
Author Organization [facility] Healthcare Address [address] [place] [address] Care Team Providers Care Lab Coordinator Name Role Phone Erica Rodrigues MD Unavailable Gasper Kaba MD Unavailable Brandy Aguirre HOT PLATE PLYWOOD PRESS OPERATOR Unavailable Jo-Ann Morrow PhD Unavailable Christina Louis SPECIAL NEEDS CAREGIVER Unavailable [phone] Sylvia Dawson Primary Care Provider [phone] Reason for Visit * Auth/Cert (Routine) Specialty Diagnoses / Procedures Referred By Contac t Referred To Contact Diagnoses Brain aneurysm Aneurysm (CMS/HCC) (HCC) Procedures NA Referral ID Status Reason Start Date Expiration Date Visits Re quested Visits Authorized [id number] 1 1 Encounter Details Date Type Department Care Team (Late st Contact Info) Description 06/16/2022 10:05 AM DRAFTER CIVIL ENGINEERING Anesthesia Event [facility] Neuro Interventional Radiology [address] [place] [address] Ale Hamilton MD PhD [address] [place] [address] Ramirez Joshi DO [address] [place] [address] Anesthesia Record Procedure Summary Procedure Name Responsible Anesthesiologist Anesthesia Start Time Anesthesia Stop Time IR PERMANENT OCCLUSION OR EMBOLIZATION PERCUTANEOUS HOT PLATE PLYWOOD PRESS OPERATOR Ale Hamilton MD PhD 06/16/22 1005 06/16/22 1300 Events Date Time Event Comment 06/16/2022 1000 1005 An Start 1011 An Start Data 1016 An Induction The patient was reevaluated immediately before moderate or deep sedation use and before anesthesia induction. 1019 An Intubation 1021 Anesthesia Ready 1230 An Extubation 1242 an stop data 1300 Handoff to RN I completed my handoff [...] disposition at the time of handoff: PACU 1300 An Stop Meds Name Total midazolam PF 2 mg lidocaine (cardiac) syringe 2 % 60 mg propofol 190 mg fentaNYL 100 mcg rocuronium 90 mg ondansetron PF (ZOFRAN) 2 mg/mL injectio n 4 mg glycopyrrolate 0.2 mg neostigmine injection 1 mg/mL 1 mg phenylephrine infusion (100 mcg/mL) 2.91 mg dexAMETHasone 4 mg/mL 4 mg heparin 1,000 unit/ml 5,000 Units LR bolus 1,300 mL * Agents Name O2% N2O O2 N2O Air Sevoflurane Inspired Sevoflurane * Blood No blood administrations on file. Lines, Drains, and Airways Type Details Placement Removal Peripheral IV Placement Date: 10/03; Placement Time: 904; Catheter Size: 20 G; Orientation: Distal, Left, Posterior; Location: Forearm; Removal Date: 06/17/22; Removal Time: 92606/16/22 09 by Anna Rowe RN 06/17/22926 by Fatimah Alicea NP Urethral Catheter Placement Date: 10/03; Placement Time: 1031; Inserted by: SANGITA; Type: Non-latex, Straight-tip, Temperature probe; Balloon Size: 10 mL; Urine Returned: Yes; Removal Date: 06/16/22; Removal Time: 2129; Removal Reason: Per order 06/16/22 103 by Rosie Quiles RN 06/16/222129 by Ariane Dove RN ETT Placement Date: 10/03; Placement Time: 105 (created via procedure documentation); Mask Ventilation: 1; Technique: Video laryngoscopy; Type: ETT - single; Single Lumen Tube Size: 6 mm; Cuffed: Yes; Laryngoscope: Narinder; Location: Oral; Grade View: Grade IIb; Insertion Attempts: 1; Placement Verification: Auscultation, Capnometry; Removal Date: 06/16/22; Removal Time: 1230 06/16/22 105 by Ramirez Joshi DO 06/16/22 1230 by Ramirez Joshi DO documented in this encounter Social History Tobacco Use Types Packs/Day Years Used Date Smoking Tobacco: Never Passive Smoke Exposure: Never Smokeless Tobacco: Never Alcohol Use Standard Drinks/Week Comments Yes 1 (1 standard drink = 0.6 oz pur e alcohol) social AUDIT-C Answer Date Recorded Q1: How often do you have a drink containing alc ohol? Monthly or less 06/16/2022 Q2: How many drinks containi ng alcohol do you have on a typical day when you are drinking? 1 or 2 06/16/2022 Q3: How often do you have si x or more drinks on one occasion? 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 Not on file Not on file documented as of this encounter OR Notes * Anesthesia Postprocedure Evaluation - Ale Hamilton MD PhD - 06/16/2022 1:07 PM CST Patient: Yesika Denney Procedure Summary Date: 06/16/22 Room / Location: [facility] Neuro Interventional Radiology Anesthesia Start: 1005 Anesthesia Stop: Procedure: IR PERMANENT OCCLUSION OR EMBOLIZATION PERCUTANEOUS HOT PLATE PLYWOOD PRESS OPERATOR Diagnosis: Cerebral aneurysm, nonruptured Brain aneurysm Aneurysm (CMS/HCC) (HCC) Scheduled Providers: Abdiaziz Moss MD; Mary Gonsalez MD; Ramirez Joshi DO Responsible Provider: Ale Hamilton MD PhD Anesthesia Type: general ASA Status: 3 Anesthesia Type: general Last vitals BP 101/60 Pulse 78 Temp 36.2 ??C (97.2 ??F) (Temporal) Resp 14 SpO2 100% Anesthesia Post Evaluation Patient location during evaluation: PACU Patient participation: complete - patient participated Level of consciousness: fully awake Pain score: 0 Pain management: satisfactory to patient Airway patency: adequate Evidence of recall: no Cardiovascular status: acceptable Respiratory status: acceptable Hydration status: acceptable Pt is: normothermic Nausea/Vomiting status: none No notable events documented. TER CIVIL ENGINEERING * Anesthesia Procedure Notes - Ramirez Joshi DO - 06/16/2022 10:52 AM CSTAssociated Order(s): Airway Airway Patient location: OR Urgency: elective Indications for airway management: anesthesia Difficult airway: no Staff: Supervising provider: Neftali Lopez MD Placed by: Resident: Ramirez Joshi DO Emergent airway documentation: Risks and benefits discussed: yes Consent obtained: yes Consent given by: patient Airway prep: Preoxygenated: yes Patient position: sniffing Mask difficulty assessment: 1 - vent by mask Spontaneous ventilation during airway: absent Sedation level during airway: GA Final airway details: Final airway type: endotracheal airway Tube type: ETT ETT size: 6.0 mm Cuffed: yes Technique used for successful ETT placement: video laryngoscopy Insertion site: oral Blade type: Narinder Video blade type: Mcghee Cormack-Lehane (direct): grade IIb - view of arytenoids or posterior of glottis only Cormack-Lehane (video): grade IIa - partial view of glottis Cuff inflated with: air ETT to teeth: 21 cm Placement verified by: auscultation and CO2 detection Airway secured with: silk tape Number of attempts: 1 TER CIVIL ENGINEERING TER CIVIL ENGINEERING * Anesthesia Preprocedure Evaluation - Neftali Lopez MD - 06/13/2022 9:50 AM CST Images from the original note were not included. [facility] Preoperative Assessment and Planning Preoperative Evaluation Record Evaluation type/location: [facility] Planned procedure site: Radiology Date: 06/13/22 Anesthesia Evaluation Yesika Denney is a 61 y.o. female * No surgery found * HISTORY HPI Yesika Denney is a 61 y.o. female with history of anterior communicating artery aneurysm, bilateral carotid artery dissections s/p carotid [id number] presents for IR PERMANENT OCCLUSION OR EMBOLIZATION PERCUTANEOUS HOT PLATE PLYWOOD PRESS OPERATOR Past Medical History Information obtained from: patient and chart. Neurological + Carotid artery stent - bilateral carotid. Date of last carotid artery stent: 04/09/22. + ICA stenosis (right cervical carotid dissection with greater than 75% stenosis s/p stent 04/09/22) Pertinent negatives: seizures; neuromuscular disease; CVA/stroke; TIA; CEA and dementia/mild cognitive impairment Comments: chronic anterior communicating artery aneurysm 04/09/22 +right carotid dissection s/p Successful flow [...] - sinus tachycardia. 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 rheumatology [facility] 03/2022 Functional Capacity Functional capacity: 4-6 METs [...] S/S of UTI. PAT Summary and Plans Preoperative assessment status: complete. Initial preoperative evaluation discussed with: Randall Barbosa MD Additional comments: Yesika Denney is a 61 y.o. female who is being evaluated prior to undergoing an intermediate cardiac risk surgery. Revised Cardiac Risk Index factors are (none) for a total RCRI of 0 out of 6. Functional capacity is 4-6 METs. Obstructive sleep apnea (JOSE) screening status is HIGH RISK due to known JOSE Blood bank needs for day of procedure: No type and screen needed Pending labs/tests include: CBC BMP PT PTT VerifyNow -->The patient takes aspirin and ticagrelor, to be managed by proceduralist per protocol. The patient states she has already received instructions to continue these medications from proceduralist. Preoperative evaluation performed by Toshia Barragan NP on 06/13/22 at 10:40 AM. . Follow up note Called and spoke to Sophia in surgeon's office regarding the cancelled verify now clopidogrel. Sophiawas planning to notify Dian but anticipated that there would be an order placed for day of surgery. Surgeon's office to follow up. Follow-up completed by: Magdalene Moore NP on 06/13/22 at 3:44 PM Follow up note Labs reviewed and are without significant findings. Surgeon's office reviews laboratory results independently, including final results of surgeon ordered labs. CPAP process complete. Follow-up completed by: Toshia Barragan NP on 06/13/22 at 4:29 PM Patient Active Problem List Diagnosis ??? Cerebral [...] right breast in female, estrogen receptor positive (CMS/HCC) (HCC) ??? Disorder of binocular movement ??? [...] ??? Recurrent cold sores ??? Hyperglycemia ??? Snoring ??? Aneurysm (CMS/HCC) (HCC) ??? BMI 24.0-24.9, adult ??? History of right common carotid artery stent placement ??? Chronic tension-type headache, not intractable Past Medical History: Diagnosis Date ??? Autoimmune disease (CMS/HCC) (HCC) ??? Benign left breast lump 06/2002 biopsy showed fibrosis and hyperplasia ??? Brain aneurysm Followed by Dr. Chaudhari: Every 3 years ??? Breast cancer (CMS/HCC) (HCC) 2014 Invasive ductal carcinoma ??? Cataract ??? Depression ??? Elevated cholesterol ??? History of chemotherapy 2015 Breast cancer ??? History of radiation therapy 2015 Right breast ??? Hypertension ??? Migraine ??? Motion sickness sometimes on [place] ??? RA (rheumatoid arthritis) (HCC) Past Surgical History: Procedure Laterality Date ??? ANGIO SELECTIVE INTERNAL CAROTID LEFT Left 03/12/2022 ??? BREAST BIOPSY Left 2002 benign ??? BREAST LUMPECTOMY Right 2015 Invasive ductal carcinoma ??? COLONOSCOPY 03/06/2020 ??? CYST REMOVAL ??? 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 No history fertility medications. She used oral contraceptives in the past. One does progesterone 08/2014. She experienced menopause approximately age 53. Allergies Allergen Reactions ??? Adhesive Hives Paper tape OK ??? Adhesive Tape-Silicones Rash ??? Cyclizine Other (See comments) and Hallucinations Marezine about 1981 Reaction: Urinary retention Med List Status: Nurse Complete Set By: Katelyn Galicia RN at 06/13/2022 9:46 AM Taking? Last Dose Start Date End Date Provider acetaminophen (TYLENOL) 325 mg tablet 06/12/2022 04/10/22 -- Asha Hines NP Take 2 tablets (650 mg total) by mouth every 6 (six) hours as needed for pain Do not exceed 4000 mgof acetaminophen in a 24 hour period. Patient taking differently: Take 650 mg by mouth every 6 (six) hours as needed for pain Do not exceed 4000 mg of acetaminophen in a 24 hour period. aspirin 81 mg enteric coated tablet 06/13/2022 05/28/22 -- Abdiaziz Moss MD Take 1 tablet (81 mg total) by mouth daily Patient taking differently: Take 81 mg by mouth every morning atenoloL (TENORMIN) 25 mg tablet 06/13/2022 03/10/22 -- Harpal DeL eón MD TAKE 1 TABLET(25 MG) BY MOUTH DAILY Patient taking differently: Take 25 mg by mouth every morning yslwhmgscs-zqekfrysfppuz-eucjelpo-codeine (FIORICET WITH CODEINE) 06-948-60-30 mg per capsule 06/12/2022 04/15/22 -- Sylvia Dawson PA Take 1 capsule by mouth every 4 (four) hours as needed for headaches calcium carbonate/vitamin D3 (CALTRATE 600 PLUS D ORAL) 06/12/2022 -- -- Ronda Ruano MD coenzyme Q10 200 mg capsule 06/12/2022 -- -- Ronda Ruano MD famotidine-Ca carb-mag hydrox (PEPCID COMPLETE) 10-800-165 mg chewable tablet 06/12/2022 -- -- Ronda Ruano MD FLUoxetine (PROzac) 20 mg capsule 06/13/2022 02/27/22 -- Sylvia Dawson PA Take 1 capsule (20 mg total) by mouth 2 (two) times a day Patient taking differently: Take 20 mg by mouth every morning folic acid (FOLVITE) 1 mg tablet 06/13/2022 05/26/22 -- Patricia Martinez MD Take 2 tablets (2,000 mcg total) by mouth daily Patient taking differently: Take 2,000 mcg by mouth every morning hydroCHLOROthiazide (HYDRODIURIL) 12.5 mg tablet -- 05/29/22 -- Sylvia Dawson PA TAKE 1 TABLET(12.5 MG) BY MOUTH DAILY Patient taking differently: Take 12.5 mg by mouth as needed hydrOXYchloroQUINE (PLAQUENIL) 200 mg tablet 06/13/2022 07/10/21 -- Patricia Martinez MD Take 1 tablet (200 mg total) by mouth daily Patient taking differently: Take 200 mg by mouth every morning lisinopriL (PRINIVIL,ZESTRIL) 20 mg tablet 06/13/2022 05/26/22 -- Sylvia Dawson PA Take 1 tablet (20 mg total) by mouth daily Patient taking differently: Take 20 mg by mouth every morning methotrexate 2.5 mg tablet 06/12/2022 05/26/22 -- Patricia Martinez MD Take 8 tablets on Patient taking differently: 2.5 mg every 7 days Take 8 tablets on multivitamin with minerals tablet 06/12/2022 -- -- Ronda Ruano MD sulfaSALAzine EN (AZULFIDINE EN) 500 mg EC tablet 06/13/2022 04/09/22 -- Patricia Martinez MD Take 2 tablets (1,000 mg total) by mouth 2 (two) times a day ticagrelor (BRILINTA) 60 mg tablet 06/13/2022 05/27/22 -- Abdiaziz Moss MD Take 1 tablet (60 mg total) by mouth 2 (two) times a day Patient taking differently: Take 60 mg by mouth 2 (two) times a day traMADoL (ULTRAM) 50 mg tablet -- 03/17/22 -- Ronda Ruano MD turmeric root extract 500 mg capsule 06/12/2022 -- -- Ronda Ruano MD valACYclovir (Valtrex) 500 mg tablet 06/13/2022 02/27/22 -- Sylvia Dawson PA Take 1 tablet (500 mg total) by mouth daily Patient taking differently: Take 500 mg by mouth every morning vit S-N-pjxciy-zinc-lutein (PreserVision Lutein) 226-90-0.8-5 mg capsule 06/12/2022 -- -- Ronda Ruano MD zinc 50 mg tablet 06/12/2022 -- -- Provider, MD Ronda -- Patient not taking: Current Outpatient Medications: ??? acetaminophen (TYLENOL) 325 mg tablet ??? aspirin 81 mg enteric coated tablet ??? atenoloL (TENORMIN) 25 mg tablet ??? vavmpmtdey-xecuaghrvbggk-ernqnwbi-codeine (FIORICET WITH CODEINE) 58-190-03-30 mg per capsule ??? calcium carbonate/vitamin D3 (CALTRATE 600 PLUS D ORAL) ??? coenzyme Q10 200 mg capsule ??? famotidine-Ca carb-mag hydrox (PEPCID COMPLETE) 10-800-165 mg chewable tablet ??? FLUoxetine (PROzac) 20 mg capsule ??? folic acid (FOLVITE) 1 mg tablet ??? hydroCHLOROthiazide (HYDRODIURIL) 12.5 mg tablet ??? hydrOXYchloroQUINE (PLAQUENIL) 200 mg tablet ??? lisinopriL (PRINIVIL,ZESTRIL) 20 mg tablet ??? methotrexate 2.5 mg tablet ??? multivitamin with minerals tablet ??? sulfaSALAzine EN (AZULFIDINE EN) 500 mg EC tablet ??? ticagrelor (BRILINTA) 60 mg tablet ??? traMADoL (ULTRAM) 50 mg tablet ??? turmeric root extract 500 mg capsule ??? valACYclovir (Valtrex) 500 mg tablet ??? vit W-H-ehtbdg-zinc-lutein (PreserVision Lutein) 226-90-0.8-5 mg capsule ??? zinc 50 mg tablet Social History Tobacco Use Smoking Status Never ??? Passive exposure: Never Smokeless Tobacco Never Alcohol Use: Not At Risk ??? Frequency of Alcohol Consumption: Monthly or less ??? Average Number of Drinks: 1 or 2 ??? Frequency of Binge Drinking: Never Substance and Sexual Activity Drug Use Yes ??? Types: Alcohol Family History Problem Relation Age of Onset [...] Neg Hx ??? Pseudochol deficiency Neg Hx PAT Physical Exam Airway Exam: Mallampati: I Cervical ROM: FROM TM distance: 3 Upper lip bite test class: 1 Cardiovascular Exam: Rate: regular Rhythm: regular Negative for Murmur No extra heart sounds appreciated Negative for peripheral edema Pulmonary Exam: LCTA, bilat EENT Exam: trachea midline Dental Exam: Appears intact Skin Exam: Skin is warm. Abdominal exam: Abdomen is soft. Bowel sounds are present. Current state: Patient's current state is cooperative and interactive. Vitals: 06/13/22 0955 BP: 118/77 Pulse: 61 Resp: 20 SpO2: 97% Relevant diagnostics: ECG(s): 03/28/20 ?? Echocardiogram(s): TTE [...] arteries. There are no distal thromboembolic complications ?? PLAN: - Continue aspirin 325 mg and Plavix 75 mg - Observation overnight and possible discharge following day with the plan for a later return and treatment of the anterior communicating artery aneurysm. ?? 03/20/22 CTA head/neck IMPRESSION: 1. No acute [...] The full scanned/data report is available in [employer]. labeled MONITOR STRIPS PDF . PT: No results found for requested labs within last 720 hours. INR: No results found for requested labs within last 720 hours. APTT: No results found for requested labs within last 720 hours. Hgb A1C: No results found for requested labs within last 720 hours. CBC RBC: No results found for requested labs within last 720 hours. RDW: No results found for requested labs within last 720 hours. MCHC: No results found for requested labs within last 720 hours. MCH: No results found for requested labs within last 720 hours. MCV: No results found for requested labs within last 720 hours. Hct: No results found for requested labs within last 720 hours. Hgb: No results found for requested labs within last 720 hours. WBC: No results found for requested labs within last 720 hours. MPV: No results found for requested labs within last 720 hours. Platelets: No results found for requested labs within last 720 hours. RDW CV: No results found for requested labs within last 720 hours. RDW Sd: No results found for requested labs within last 720 hours. BMP Glucose: No results found for requested labs within last 720 hours. Calcium: No results found for requested labs within last 720 hours. Sodium: No results found for requested labs within last 720 hours. Potassium: No results found for requested labs within last 720 hours. CO2: No results found for requested labs within last 720 hours. Chloride: No results found for requested labs within last 720 hours. BUN: No results found for requested labs within last 720 hours. Creatinine: No results found for requested labs within last 720 hours. Chelsea index score: 100 DOS Physical Exam Medical history, medications, and allergies reviewed. Attestation: This PAT evaluation 06/13/2022. Airway Exam: Mallampati: II Cervical ROM: FROM TM distance: >4 Cardiovascular Exam: Rate: regular Rhythm: regular Negative for Murmur Pulmonary Exam: LCTA, bilat EENT Exam: trachea midline Dental Exam: Appears intact Current state: Patient's current state is cooperative. Anesthesia Plan ASA 3 My patient is approved for the Anesthesia Controlled Medication protocol when under care of a GANTRY CRANE OPERATOR Planned anesthesia: General Team communication plan: oral ET tube Induction: Induction: intravenous. Informed Consent: Discussed plan with GANTRY CRANE OPERATOR. Anesthesia plan and risks discussed with patient. Consent and Attending signature: I and/or my designee have discussed the anesthesia plan, benefits, possible alternatives, parental presence at time of induction (if indicated), and clinically relevant risks that may include dental injury, unintentional awareness, and/or other complications. The patient and/or parent/legal guardian understand, and agree to proceed. All questions answered. TER CIVIL ENGINEERING TER CIVIL ENGINEERING TER CIVIL ENGINEERING TER CIVIL ENGINEERING TER CIVIL ENGINEERING documented in this encounter Plan of Treatment Not on file documented as of this encounter Procedures Procedure Name Priority Date/Time Associated Diagnosis Comments ANESTHESIA INTUBATION Routine 06/16/2022 10:52 AM DRAFTER CIVIL ENGINEERING documented in this encounter Results * Airway (06/16/2022 10:52 AM DRAFTER CIVIL ENGINEERING) Narrative Ramirez Joshi DO - 06/16/2022 10:52 AM DRAFTER CIVIL ENGINEERING Ramirez Joshi, ? 06/16/2022 11:21 AM Airway Patient location: OR Urgency: elective Indications for airway management: anesthesia Difficult airway: no Staff: Supervising provider: Neftali Lopez MD Placed by: Resident: Ramirez Joshi DO Emergent airway documentation: Risks and benefits discussed: yes Consent obtained: yes Consent given by: patient Airway prep: Preoxygenated: yes Patient position: sniffing Mask difficulty assessment: 1 - vent by mask Spontaneous ventilation during airway: absent Sedation level during airway: GA Final airway details: Final airway type: endotracheal airway Tube type: ETT ETT size: 6.0 mm Cuffed: yes Technique used for successful ETT placement: video laryngoscopy Insertion site: oral Blade type: Narinder Video blade type: Mcghee Cormack-Lehane (direct): grade IIb - view of arytenoids or posterior of glottis only Cormack-Lehane (video): grade IIa - partial view of glottis Cuff inflated with: air ETT to teeth: 21 cm Placement verified by: auscultation and CO2 detection Airway secured with: silk tape Number of attempts: 1 us Neftali Lopez MD ANESTHESIA ORDERABLES Edit ed Result - Final documented in this encounter Visit Diagnoses Not on filedocumented in this encounter Administered Medications Inactive Administered Medications - up to 3 most recent administrations Medication Order MAR Action Action Date Dose Rate Site dexAMETHasone (DECADRON) 4 mg/mL injection intravenous, Administer over 2 Minutes, As needed, Starting on 06/16/22 at 1045, Anesthesia Intra-op Given 06/16/2022 10:45 AM DRAFTER CIVIL ENGINEERING 4 mg fentaNYL (SUBLIMAZE) preservative free injection intravenous, As needed, Starting on Thu06/16/22 at 1016, Anesthesia Intra-op Given 06/16/2022 10:16 AM DRAFTER CIVIL ENGINEERING 100 mcg glycopyrrolate (ROBINUL) injection intravenous, Administer over 1 Minutes, As needed, Starting on Thu06/16/22 at 1225, Anesthesia Intra-op Given 06/16/2022 12:25 PM DRAFTER CIVIL ENGINEERING 0.2 mg heparin 1,000 unit/mL injection intravenous, As needed, Starting on Thu06/16/22 at 1116, Anesthesia Intra-op Given 06/16/2022 11:16 AM DRAFTER CIVIL ENGINEERING 5,000 Units Lactated Ringer's (LR) bolus intravenous, Continuous PRN, Starting on Thu06/16/22 at 1016, Anesthesia Intra-op New Bag 06/16/2022 10:16 AM DRAFTER CIVIL ENGINEERING lidocaine (cardiac) (XYLOCAINE) preservative free injection intravenous, As needed, Starting on Thu06/16/22 at 1016, Anesthesia Intra-op, Indications: Ventricular ArrhythmiasIndications:V entricular Arrhythmias Given 06/16/2022 10:16 AM DRAFTER CIVIL ENGINEERING 60 mg midazolam (VERSED) 1 mg/mL preservative free injection intravenous, Administer over 2 Minutes, As needed, Starting on Thu06/16/22 at 1016, Anesthesia Intra-op Given 06/16/2022 10:16 AM DRAFTER CIVIL ENGINEERING 2 mg neostigmine (PROSTIGMIN) injection intravenous, Administer over 3 Minutes, As needed, Starting on Thu06/16/22 at 1225, Anesthesia Intra-op Given 06/16/2022 12:25 PM DRAFTER CIVIL ENGINEERING 1 mg ondansetron (ZOFRAN) injection intravenous, Administer over 2 Minutes, As needed, Starting on Thu06/16/22 at 1218, Anesthesia Intra-op Given 06/16/2022 12:18 PM DRAFTER CIVIL ENGINEERING 4 mg phenylephrine (JUANIS-SYNEPHRINE) 5 mg/50 mL (100 mcg/mL) in sodium chloride 0.9% (premix) intravenous, Continuous PRN, Starting on Thu06/16/22 at 1031, Anesthesia Intra-op New Bag 06/16/2022 10:31 AM DRAFTER CIVIL ENGINEERING 0.4 mcg/kg/min 15.312 mL/hr propofoL (DIPRIVAN) 10 mg/mL IV intravenous, As needed, Starting on Thu06/16/22 at 1016, Anesthesia Intra-op Given 06/16/2022 12:25 PM DRAFTER CIVIL ENGINEERING 20 mg Given 06/16/2022 12:18 PM DRAFTER CIVIL ENGINEERING 60 mg Given 06/16/2022 11:07 AM DRAFTER CIVIL ENGINEERING 50 mg rocuronium (ZEMURON) injection intravenous, As needed, Starting on Thu06/16/22 at 1016, Anesthesia Intra-op Given 06/16/2022 11:41 AM DRAFTER CIVIL ENGINEERING 10 mg Given 06/16/2022 11:07 AM DRAFTER CIVIL ENGINEERING 40 mg Given 06/16/2022 10:16 AM DRAFTER CIVIL ENGINEERING 40 mg documented in this encounter Care Teams Lab Coordinator Relationship Specialty Start Date End Date Sylvia Dawson PA [address] [facility] [address] [place] [address] PCP - General Internal Medicine 01/05/20 Erica Rodrigues MD [address] LL [address] [place] [address] Radiation Oncologist Radiation Oncology 10/25/18 Gasper Kaba MD [address] LL [facility] [address] [place] [address] Surgeon Surgical Oncology 10/25/18 Brandy Aguirre, HOT PLATE PLYWOOD PRESS OPERATOR [address] [facility] [address] [place] [address] Nurse Practitioner Certified Clinical Nurse Specialist 10/25/18 Jo-Ann Morrow, PhD [address] LL [address] [place] [address] Nurse Practitioner Radiation Oncology 10/25/18 Christina Louis NP [address] LL [address] [place] [address] Nurse Practitioner Medical Oncology 10/25/18 documented as of this encounter
--- OUTSIDE RECORDS SUMMARY | 2024-04-24 05:51 | XMS_ITS | Encounter Summary ---
Author Organization [facility] Healthcare Address [address] [place] [address] Care Team Providers Care Cement Mason Helper Name Role Phone Erica Rodrigues MD Unavailable Gasper Kaba MD Unavailable Brandy Aguirre INFORMATION TECHNOLOGY DATA ANALYST Unavailable [phone] Jo-Ann Morrow PhD Unavailable [phone] Christina Louis TUBE COREMAKER Unavailable [phone] Sylvia Dawson Primary Care Provider [phone] Reason for Visit * Reason Onset Date Comments Sleep Study Results 05/08/2022 Encounter Details Date Type Department Care Team (Late st Contact Info) Description 05/08/2022 Telephone [facility] [address] [place] [address] Sho Mcknight, [facility] [[email or web address] Sleep Study Results Social History Tobacco Use Types Packs/Day [...] on file Legal Sex Female 3:42 AM PHYSIOLOGICAL CHEMIST Gender Identity Not on file Sexual Orientation Not on file 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 Faxed order and into to [facility]. IOLOGICAL CHEMIST * Telephone Encounter - Sho Mcknight RPSGT - 05/12/2022 12:30 PM PHYSIOLOGICAL CHEMIST Pt wanted the order sent to [facility] after speaking with her about choices. I let [facility] to cancel order and I faxed the order to [facility]. IOLOGICAL CHEMIST * Telephone Encounter - Madeleine Patton MA - 05/12/2022 11:48 AM CST Order form for CPAP (set at auto titrating range 5-20 cmh20) was completed and signed per Dr. Acosta. Faxed order to [facility] and scanned into patient's chart. IOLOGICAL CHEMIST * Telephone Encounter - Sho Mcknight RPSGT - 05/12/2022 8:55 AM PHYSIOLOGICAL CHEMIST I will send an order to your office to sign. Thank you IOLOGICAL CHEMIST * Telephone Encounter - Sho Mcknight RPSGT - 05/12/2022 8:[address] Acosta, We received denial for CPAP Titration study from insurance. Would you like to do a Peer to Peer or Auto CPAP? Thank you. IOLOGICAL CHEMIST * Telephone Encounter - Sho Mcknight RPSGT - 05/08/2022 1:48 PM PHYSIOLOGICAL CHEMIST Spoke with pt about sleep study results. AHI- 42.8. CPAP titration ordered and we have submitted auth for that with pt's insurance. We will inform pt of insurance decision when received. PT stated she will be seeing Neuro Surgeon on 05/27/22 that she is needing to have an aneurysm repaired. I did tell her if the auth is approved we will try to schedule her BELLE. IOLOGICAL CHEMIST documented in this encounter Plan of Treatment Not on file documented as of this encounter Visit Diagnoses Not on filedocumented in this encounter Care Teams Cement Mason Helper Relationship Specialty Start Date End Date Sylvia Dawson PA [facility] [address] [place] [address] PCP - General Internal Medicine 01/05/20 Erica Rodrigues MD [address] [facility] [address] [place] [address] Radiation Oncologist Radiation Oncology 10/25/18 Gasper Kaba MD [address] [facility] [address] [place] [address] Surgeon Surgical Oncology 10/25/18 Brandy Aguirre CNS [address] [facility] [address] [place] [address] Nurse Practitioner Certified Clinical Nurse Specialist 10/25/18 Jo-Ann Morrow, PhD [address] [facility] [address] LL LL [address] [place] [address] Nurse Practitioner Radiation Oncology 10/25/18 Christina Louis TUBE COREMAKER [address] [facility] [address] LL LL [address] [place] [address] Nurse Practitioner Medical Oncology 10/25/18 documented as of this encounter
--- OUTSIDE RECORDS SUMMARY | 2024-04-24 05:51 | XMS_ITS | Encounter Summary ---
Author Organization [facility] [employer] [facility] Address [address] [place] [address] Phone Care Team Providers Care Legal Archivist Name Role Phone Erica Rodrigues MD Unavailable Gaspre Kaba MD Unavailable Brandy Aguirre PRINTS AND DRAWINGS CURATOR Unavailable [phone] Jo-Ann Morrow PhD Unavailable [phone] Christina Louis SECTION CREWS ACTIVITIES CLERK Unavailable [phone] Sylvia Dawson Primary Care Provider [phone] Encounter Details Date Type Department Care Team (Late st Contact Info) Description 05/27/2022 Orders Only [facility] Neurosurgery [address] [facility] Advanced Medicine 6th [place] [address] [place] [address] Abdiaziz Moss MD [address] [place] [address] Social History Tobacco Use Types Packs/Day Years [...] on file Legal Sex Female 3:42 AM MANNEQUIN DECORATOR Gender Identity Not on file Sexual Orientation Not on file 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 file Not on file Not on file documented as of this encounter Ordered Prescriptions Prescription Sig Dispense Quantity Refills Last Filled Start Date End Date ticagrelor (BRILINTA) 60 mg tablet Take 1 tablet (60 mg total) by mouth 2 (two) times a day 60 tablet 3 05/27/2022 09/25/2022 documented in this encounter Plan of Treatment Not on file documented as of this encounter Visit Diagnoses Not on filedocumented in this encounter Discontinued Medications Medication Sig Discontinue Reason Start Date End Da te ticagrelor (Brilinta) 90 mg tablet Take 1 tablet (90 mg total) by mouth 2 (two) times a day 05/02/2022 05/27/2022 documented as of this encounter Care Teams Legal Archivist Relationship Specialty Start Date End Date Sylvia Dawson PA [address] [facility] [address] [place] [address] PCP - General Internal Medicine 01/05/20 Erica Rodrigues MD [address] LL [address] [place] [address] Radiation Oncologist Radiation Oncology 10/25/18 Gasper Kaba MD [address] LL [address] [place] [address] Surgeon Surgical Oncology 10/25/18 Brandy Aguirre CNS [address] [place] [address] Nurse Practitioner Certified Clinical Nurse Specialist 10/25/18 Jo-Ann Morrow, PhD [address] [facility] # LL LL [address] [place] [address] Nurse Practitioner Radiation Oncology 10/25/18 Christina Louis, SECTION CREWS ACTIVITIES CLERK [address] [facility] # LL LL [address] [place] [address] Nurse Practitioner Medical Oncology 10/25/18 documented as of this encounter
--- OUTSIDE RECORDS SUMMARY | 2024-04-24 05:51 | XMS_ITS | Encounter Summary ---
Author Organization [facility] Address [address] [facility] [address] [place] [address] Care Team Providers Care Manager Of It Name Role Phone Erica Rodrigues MD Unavailable Gasper Kaba MD Unavailable [phone] Brandy Aguirre SENIOR MANUFACTURING ENGINEER Unavailable [phone] Jo-Ann Morrow PhD Unavailable [phone] Christina Louis HORSE RACING ANALYST Unavailable [phone] Sylvia Dawson Primary Care Provider [phone] Reason for Referral * Consultation (Routine) - Closed Specialty Diagnoses / Procedures Referred By Contac t Referred To Contact Endocrinology Diagnoses Mixed hyperlipidemia Sylvia Dawson PA [address] [facility] [address] [place] [address] Phone: tel: fax: Mckenna Ventura MD [address] [facility] [address] [place] [address] Phone: tel: fax: Referral ID Status Reason Start Date Expiration Date V isits Requested Visits Authorized [id number] Closed Specialty Services Required 05/04/2022 06/03/2023 1 1 Question Answer Please select the performing region: [facility] (All Locations) [167] To provider: MCKENNA VENTURA [[id number]] # of visits: 1 Comments LDL 218. DEPOSIT BOX RENTAL CLERK Reason for Visit * Reason Comments TRANSITION CARE Encounter Details Date Type Department Care Team (Late st Contact Info) Description 04/22/2022 1:00 PM SAFE DEPOSIT BOX RENTAL CLERK Office Visit [facility] Family Medicine [address] [place] [address] Sylvia Dawson PA [address] [facility] [address] [place] [address] History of right common carotid artery stent placement (Primary Dx); Mixed hyperlipidemia; Chronic tension-type headache, not intractable; BMI 24.0-24.9, adult Social History Tobacco Use Types Packs/Day Years [...] file Legal Sex Female 3:42 AM SAFE DEPOSIT BOX RENTAL CLERK Gender Identity Not on file Sexual Orientation Not on file 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 file Not on file Not on file documented as of this encounter Last Filed Vital Signs Vital Sign Reading Time Taken Comments Blood Pressure 130/80 04/22/2022 1:04 PM SAFE DEPOSIT BOX RENTAL CLERK Pulse 69 04/22/2022 1:04 PM SAFE DEPOSIT BOX RENTAL CLERK Temperature 37 ??C (98.6 ??F) 04/22/2022 1:04 PM SAFE DEPOSIT BOX RENTAL CLERK Respiratory Rate - - Oxygen Saturation 99% 04/22/2022 1:04 PM SAFE DEPOSIT BOX RENTAL CLERK Inhaled Oxygen Concentration - - Weight 63.2 kg (139 lb 6.4 oz) 04/22/2022 1:04 P M SAFE DEPOSIT BOX RENTAL CLERK Height 160 cm (5' 3 ) 04/22/2022 1:04 PM SAFE DEPOSIT BOX RENTAL CLERK Body Mass Index 24.69 04/22/2022 1:04 PM SAFE DEPOSIT BOX RENTAL CLERK documented in this encounter Ordered Prescriptions Prescription Sig Dispense Quantity Refills Last Filled Start Date End Date hydroCHLOROthiazid e (HYDRODIURIL) 12.5 mg tablet Take 1 tablet (12.5 mg total) by mouth daily 30 tablet 04/22/2022 05/29/2022 documented in this encounter Progress Notes * Sylvia Dawson PA - 04/22/2022 1:00 PM CST Images from the original note were not included. Transition of Care Visit Patient is seen in the office today for a transition of care visit, after a recent hospitalization.Initial phone contact was confirmed for the transition of care within two business days after discharge, and communication regarding aspects of care, education and support with activities of daily living is documented in the chart. ISylvia PA have personally reviewed pertinent Hospital/ER data including Cl[employer]esk and Care Everywhere if available. This patient's discharge medication list has been reviewed and reconciled with her medication list in the office chart and has also been reviewed with patient and/or caregiver. I have noted any changes. Admission Date: 04/09/2022 Discharge Date: 04/10/2022 Date of Initial Post-discharge Interactive Contact: 04/11/2022 Complexity of Medical Decision Making: moderate Metabolic Lab Results: Body mass index is 24.69 kg/m??. Glucose: Glucose Date Value Ref Range Status 04/09/2022 90 70 - 199 mg/dL Final Comment: Interpretive Data Fasting glucose >/= 126 mg/dl is diagnostic for diabetes. Fasting is defined as no caloric intake for at least 8 hours. Fasting glucose between 100 mg/dl to 125 mg/dl is diagnostic of prediabetes. In a patient with classic symptoms of hyperglycemia or hyperglycemic crisis, a random glucose >/= 200 mg/dl is diagnostic for diabetes. In the absence of unequivocal hyperglycemia, results should be confirmed by repeat testing. The classification and Diagnosis of Diabetes Diabetes Care 2017;40 (Suppl. 1):S11. Current interpretive data was last revised 2017. 03/25/2022 89 70 - 99 mg/dL Final Lab Results Component Value Date WBC 4.4 04/08/2022 HGB 12.5 04/08/2022 HCT 39.3 04/08/2022 MCV 103.4 (H) 04/08/2022 Lab Results Component Value Date GLUCOSE 90 04/09/2022 CALCIUM 8.2 (L) 04/09/2022 SODIUM 137 04/09/2022 POTASSIUM 4.3 04/09/2022 CO2 26 04/09/2022 CHLORIDE 103 04/09/2022 BUNSER 7 (L) 04/09/2022 CREATININE 0.69 04/09/2022 Major Procedures and Tests: Major Procedures and Tests Performed During Inpatient Stay: Studies Pending at Discharge (Includes Lab and Radiology) none Interval History: Per Clinic Note (03/28): Yesika Denney is a 61 year old female with a known anterior communicating artery aneurysm that had planned treatment. She is a new right carotid dissection. She is been initiated on dual anti-platelet therapy. Since that time she is not had any new episodes. I have counseled her that she may needa carotid stent at the time of her aneurysms treatment. Today she presents to the hospital for a cerebral angiography and placement of a right carotid stent. Hospital Course: 04/09 R carotid stent. POC OK. Problems addressed during this hospitalization: Right carotid dissection: -- s/p angio for right carotid stent on 04/09 -- Continue ASA 325 mg and Plavix 75 mg daily -- Follow up in 6 weeks Acute pain: -- Controlled on an oral regimen HTN: -- Continue home atenolol 25 mg daily and lisinopril 20 mg daily Procedures: 04/09: angio for R carotid stent Consults: none GI/ Concerns: Tolerating regular diet. Last bowel movement was SAW STRAIGHTENER. Ely removed on 04/10, now voiding spontaneously. Follow-up: Neurosurgery: Tasked for 6 weeks . Other services: Primary Care Physician Lab tests/imaging necessary on follow-up: no additional scans/tests necessary In general, feeling good. Having left sided ROMAN pain simliar to what she remembers when she had prior to the surgery Spoke with Nehal and was oked to use the Fioricet. Taking Tylenol and prn Fioricet with the ROMAN. LDL is still very high at 218. She doesn't want to start a statin. She is more interested in understanding the subunits of the lipids to make a decision IF she needs medication. Recommended seeing Cardio or Lipid specialist to discuss further. Prefers Dr. Varghese at [facility] Will make referral. Problem History of Right Common Carotid Artery Stent Placement 04/09/2022 - known anterior communicating artery aneurysm that had planned treatment. Right carotiddissection noted. Stent placed. Chronic Tension-Type Headache, Not Intractable Mixed Hyperlipidemia Current Outpatient Medications Medication Sig Dispense Refill acetaminophen (TYLENOL) 325 mg tablet Take 2 tablets (650 mg total) by mouth every 6 (six) hours asneeded for pain Do not exceed 4000 mg of acetaminophen in a 24 hour period. aspirin 325 mg tablet Take 1 tablet (325 mg total) by mouth daily 30 tablet 0 atenoloL (TENORMIN) 25 mg tablet TAKE 1 TABLET(25 MG) BY MOUTH DAILY (Patient taking differently: Take 25 mg by mouth every morning) 90 tablet 1 ziijledykh-iejbfcuqbylsm-zcxjdvqg-codeine (FIORICET WITH CODEINE) 18-719-41-30 mg per capsule Take 1 capsule by mouth every 4 (four) hours as needed for headaches 20 capsule 0 calcium carbonate/vitamin D3 (CALTRATE 600 PLUS D ORAL) Take 1 tablet by mouth every morning coenzyme Q10 200 mg capsule Take 1 capsule (200 mg total) by mouth every morning difluprednate (DUREZOL) 0.05 % drops Administer 1 drop into the left eye 3 (three) times a day for 14 days, THEN 1 drop 2 (two) times a day for 14 days, THEN 1 drop daily for 14 days. 10 mL 11 dorzolamide (TRUSOPT) 2 % ophthalmic solution Administer 1 drop into the left eye 3 (three) times aday 10 mL 11 FLUoxetine (PROzac) 20 mg capsule Take 1 capsule (20 mg total) by mouth 2 (two) times a day (Patient taking differently: Take 20 mg by mouth every morning) 180 capsule 1 folic acid (FOLVITE) 1 mg tablet Take 2 tablets (2,000 mcg total) by mouth daily (Patient taking differently: Take 2,000 mcg by mouth every morning) 180 tablet 3 hydrOXYchloroQUINE (PLAQUENIL) 200 mg tablet Take 1 tablet (200 mg total) by mouth daily (Patient taking differently: Take 200 mg by mouth every morning) 90 tablet 2 lisinopriL (PRINIVIL,ZESTRIL) 20 mg tablet Take 1 tablet (20 mg total) by mouth daily (Patient taking differently: Take 20 mg by mouth every morning) 90 tablet 1 methotrexate 2.5 mg tablet TAKE 8 TABLETS BY MOUTH ONCE A WEEK DIRECTED (Patient taking differently: Take 8 tablets on ) 96 tablet 0 multivitamin with minerals tablet Take 1 tablet by mouth every morning sulfaSALAzine EN (AZULFIDINE EN) 500 mg EC tablet Take 2 tablets (1,000 mg total) by mouth 2 (two) times a day 360 tablet 0 traMADoL (ULTRAM) 50 mg tablet Take 50 mg by mouth every 6 (six) hours as needed turmeric root extract 500 mg capsule Take 500 mg by mouth every morning valACYclovir (Valtrex) 500 mg tablet Take 1 tablet (500 mg total) by mouth daily (Patient taking differently: Take 500 mg by mouth every morning) 90 tablet 2 vit C-P-cgjjcu-zinc-lutein (PreserVision Lutein) 226-90-0.8-5 mg capsule Take 1 tablet by mouth every morning zinc 50 mg tablet Take 50 mg by mouth every morning hydroCHLOROthiazide (HYDRODIURIL) 12.5 mg tablet Take 1 tablet (12.5 mg total) by mouth daily 30 tablet 0 ticagrelor (Brilinta) 90 mg tablet Take 1 tablet (90 mg total) by mouth 2 (two) times a day 180 tablet 3 No current facility-administered medications for this visit. Review of Systems: Review of Systems See HPI Physical Exam: BP 130/80 (BP Location: Left arm, Patient Position: Sitting) Pulse 69 Temp 37 ??C (98.6 ??F) Ht 160 cm (5' 3 ) Wt 63.2 kg (139 lb 6.4 oz) LMP (LMP Unknown) SpO2 99% BMI 24.69 kg/m?? Physical Exam Vitals and nursing note reviewed. [...] Diagnoses and all orders for this visit: History of right common carotid artery stent placement (Primary) Assessment & Plan: Continue per NeuroSurge Mixed hyperlipidemia Assessment & Plan: Encouraged patient to follow [...] to discuss further. Prefers Dr. Varghese at [facility] Will make referral. Orders: - Ambulatory referral to Endocrinology; Future Chronic tension-type headache, not intractable Assessment & Plan: Patient with chronic headaches prior to this surgery. These headaches have always responded to Fioricet. Encouraged to use Tylenol 1st line in breakthrough symptoms may use the Fioricet as needed. Ifpatient's symptoms persist will consider referral to neuro for her headaches BMI 24.0-24.9, adult Assessment & Plan: Weight/BMI is in healthy range. Continue healthy lifestyle to maintain. Other orders - hydroCHLOROthiazide (HYDRODIURIL) 12.5 mg tablet; Take 1 tablet (12.5 mg total) by mouth daily Coordination of Home care services and follow-up with specialist appointments confirmed. Instructions have been provided to and reviewed with the patient/nurse care manager prior to discharge. KAREN Lynne DEPOSIT BOX RENTAL CLERK documented in this encounter Miscellaneous Notes * Assessment & Plan Note - Sylvia Dawson PA - 05/04/2022 8:03 PM SAFE DEPOSIT BOX RENTAL CLERK Associated Problem(s): Chronic tension-type headache, not intractable Patient with chronic headaches prior to this surgery. These headaches have always responded to Fioricet. Encouraged to use Tylenol 1st line in breakthrough symptoms may use the Fioricet as needed. Ifpatient's symptoms persist will consider referral to neuro for her headaches DEPOSIT BOX RENTAL CLERK * Assessment & Plan Note - Sylvia Dawson PA - 05/04/2022 8:02 PM SAFE DEPOSIT BOX RENTAL CLERK Associated Problem(s): History of right common carotid artery stent placement Continue per NeuroSurge DEPOSIT BOX RENTAL CLERK * Assessment & Plan Note - Sylvia Dawson PA - 05/04/2022 10:24 AM SAFE DEPOSIT BOX RENTAL CLERK Associated Problem(s): Mixed hyperlipidemia Encouraged patient to [...] to discuss further. Prefers Dr. Varghese at [facility] Will make referral. DEPOSIT BOX RENTAL CLERK * Assessment & Plan Note - Brandi Hernandez MA - 04/22/2022 1:06 PM SAFE DEPOSIT BOX RENTAL CLERK Associated Problem(s): BMI 24.0-24.9, adult (Resolved 04/01/2023) Weight/BMI is in healthy range. Continue healthy lifestyle to maintain. DEPOSIT BOX RENTAL CLERK documented in this encounter Plan of Treatment Scheduled Referrals Name Type Priority Associated Diagnoses Orde r Schedule Ambulatory referral to Endocrinology Outpatient Referral Routine Mixed hyperlipidemia Expected: 05/11/2022 (Approximate), Expires: 05/04/2023 documented as of this encounter Visit Diagnoses Diagnosis History of right common carotid artery stent placement- Primary Mixed hyperlipidemia Chronic tension-type headache, not intractable Chronic tension type headache BMI 24.0-24.9, adult documented in this encounter Care Teams Manager Of It Relationship Specialty Start Date End Date Sylvia Dawson PA [address] [place] [address] PCP - General Internal Medicine 01/05/20 Erica Rodrigues MD [address] [place] [address] Radiation Oncologist Radiation Oncology 10/25/18 Gasper Kaba MD [address] [place] [address] Surgeon Surgical Oncology 10/25/18 Brandy Aguirre, CARINA [address] LL LL [address] [place] [address] Nurse Practitioner Certified Clinical Nurse Specialist 10/25/18 Jo-Ann Morrow, PhD [address] [place] [address] Nurse Practitioner Radiation Oncology 10/25/18 Christina Louis HORSE RACING ANALYST [address] [place] [address] Nurse Practitioner Medical Oncology 10/25/18 documented as of this encounter
--- OUTSIDE RECORDS SUMMARY | 2024-04-24 05:51 | XMS_ITS | Encounter Summary ---
Author Organization [facility] 20[employer] of [facility] Address [address] [place] [address] Phone Care Team Providers Care Leadite Heater Name Role Phone Erica Rodrigues MD Unavailable Gasper Kaba MD Unavailable Brandy Aguirre DIESEL TRUCK TECHNICIAN Unavailable [phone] Jo-Ann Morrow PhD Unavailable [phone] Christina Louis DOLL SURGEON Unavailable [phone] Sylvia Dawson Primary Care Provider [phone] Encounter Details Date Type Department Care Team (Late st Contact Info) Description 05/27/2022 Telephone [facility] Neurosurgery [address] [facility] Advanced Medicine 6th [place] [address] [place] [address] Abdiaziz Moss MD [address] [place] [address] Social History Tobacco Use Types Packs/Day Years [...] file Legal Sex Female 3:42 AM MEDICAL LIBRARIAN Gender Identity Not on file Sexual Orientation Not on file 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 Not on file Not on file documented as of this encounter Miscellaneous Notes * Telephone Encounter - Lesley Stovall RMA - 05/27/2022 2:50 PM CST Per patient appointment - patient need to be schedule for WEB procedure, [place] 60mg BID ASA 81 mg sent to the patient pharmacy Medication sent to the patient pharmacy, e-mail sent to BF CAL LIBRARIAN CAL LIBRARIAN documented in this encounter Plan of Treatment Not on file documented as of this encounter Visit Diagnoses Not on filedocumented in this encounter Care Teams Leadite Heater Relationship Specialty Start Date End Date Sylvia Dawson PA [address] [facility] [address] [place] [address] PCP - General Internal Medicine 01/05/20 Erica Rodrigues MD [address] [place] [address] Radiation Oncologist Radiation Oncology 10/25/18 Gasper Kaba MD [address] [place] [address] Surgeon Surgical Oncology 10/25/18 Brandy Aguirre CNS [address] [facility] [address] [place] [address] Nurse Practitioner Certified Clinical Nurse Specialist 10/25/18 Jo-Ann Morrow, PhD [address] [facility] [address] [place] [address] Nurse Practitioner Radiation Oncology 10/25/18 Christina Louis, DOLL SURGEON [address] [facility] [address] [place] [address] Nurse Practitioner Medical Oncology 10/25/18 documented as of this encounter
--- OUTSIDE RECORDS SUMMARY | 2024-04-24 05:51 | XMS_ITS | Encounter Summary ---
Author Organization [facility] Address [address] [place] [address] Phone Care Team Providers Care Dairy Feed Sales Consultant Name Role Phone Erica Rodrigues MD Unavailable Gasper Kaba MD Unavailable Brandy Aguirre REFRACTORY PRODUCTS SUPERVISOR Unavailable Jo-Ann Morrow PhD Unavailable [phone] Christina Louis PATTERN CHART WRITER Unavailable [phone] Sylvia Dawson Primary Care Provider [phone] Encounter Details Date Type Department Care Team (Late st Contact Info) Description 05/02/2022 Orders Only [facility] Neurosurgery [address] [facility] [address] [place] [address] Lizzie Green, PATTERN CHART WRITER [address] [place] [address] Social History Tobacco Use Types Packs/Day Years [...] on file Legal Sex Female 3:42 AM INSTRUCTIONAL DESIGN MANAGER Gender Identity Not on file Sexual Orientation Not on file 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 file Not on file Not on file documented as of this encounter Ordered Prescriptions Prescription Sig Dispense Quantity Refills Last Filled Start Date End Date ticagrelor (Brilinta) 90 mg tablet Take 1 tablet (90 mg total) by mouth 2 (two) times a day 180 tablet 3 05/02/2022 05/27/2022 documented in this encounter Plan of Treatment Not on file documented as of this encounter Visit Diagnoses Not on filedocumented in this encounter Discontinued Medications Medication Sig Discontinue Reason Start Date End Da te ticagrelor (Brilinta) 90 mg tablet Take 1 tablet (90 mg total) by mouth 2 (two) times a day Reorder 04/21/2022 05/02/2022 documented as of this encounter Care Teams Dairy Feed Sales Consultant Relationship Specialty Start Date End Date Sylvia Dawson PA [address] [facility] [address] [place] [address] PCP - General Internal Medicine 01/05/20 Erica Rodrigues MD [address] [place] [address] Radiation Oncologist Radiation Oncology 10/25/18 Gasper Kaba MD [address] [place] [address] Surgeon Surgical Oncology 10/25/18 Brandy Aguirre CNS [address] [facility] [address] [place] [address] Nurse Practitioner Certified Clinical Nurse Specialist 10/25/18 Jo-Ann Morrow, PhD [address] [facility] [address] [place] [address] Nurse Practitioner Radiation Oncology 10/25/18 Christina Louis, PATTERN CHART WRITER [address] [facility] [address] [place] [address] Nurse Practitioner Medical Oncology 10/25/18 documented as of this encounter
--- OUTSIDE RECORDS SUMMARY | 2024-04-24 05:51 | XMS_ITS | Encounter Summary ---
Author Organization [facility] Healthcare Address [address] [place] [address] Care Team Providers Care Video Rental Clerk Name Role Phone Erica Rodrigues MD Unavailable Gasper Kaba MD Unavailable Brandy Aguirre ELECTRICAL SIGN SERVICER Unavailable [phone] Jo-Ann Morrow PhD Unavailable [phone] Christina Louis WALL CRANE OPERATOR Unavailable [phone] Sylvia Dawson Primary Care Provider [phone] Encounter Details Date Type Department Care Team (Late st Contact Info) Description 06/13/2022 Orders Only [facility] Neuro Interventional Radiology 1 [place] [address] Rossana Ventura PA [address] [facility] [address] [place] [address] Social History Tobacco Use Types Packs/Day Years Used Date Smoking Tobacco: Never Passive Smoke Exposure: Never Smokeless Tobacco: Never Alcohol Use Standard Drinks/Week Comments Yes 1 (1 standard drink = 0.6 oz pur e alcohol) social AUDIT-C Answer Date Recorded Q1: How often do you have a drink containing alc ohol? Monthly or less 06/13/2022 Q2: How many drinks containi ng alcohol do you have on a typical day when you are drinking? 1 or 2 06/13/2022 Q3: How often do you have si x or more drinks on one occasion? 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 file Not on file Not on file documented as of this encounter Plan of Treatment Not on file documented as of this encounter Visit Diagnoses Not on filedocumented in this encounter Care Teams Video Rental Clerk Relationship Specialty Start Date End Date Sylvia Dawson PA [facility] [address] [place] [address] PCP - General Internal Medicine 01/05/20 Erica Rodrigues MD [address] [place] [address] Radiation Oncologist Radiation Oncology 10/25/18 Gasper Kaba MD [address] LL [facility] [address] [place] [address] Surgeon Surgical Oncology 10/25/18 Brandy Aguirre, ELECTRICAL SIGN SERVICER [address] [place] [address] Nurse Practitioner Certified Clinical Nurse Specialist 10/25/18 Jo-Ann Morrow, PhD [address] LL [facility] [address] [place] [address] Nurse Practitioner Radiation Oncology 10/25/18 Christina Louis NP [address] LL [facility] [address] [place] [address] Nurse Practitioner Medical Oncology 10/25/18 documented as of this encounter
--- OUTSIDE RECORDS SUMMARY | 2024-04-24 05:51 | XMS_ITS | Encounter Summary ---
Author Organization [facility] Healthcare Address [address] [place] [address] Care Team Providers Care Physicist Cryogenics Name Role Phone Erica Rodrigues MD Unavailable Gasper Kaba MD Unavailable Brandy Aguirre BONDERIZER OPERATOR Unavailable [phone] Jo-Ann Morrow PhD Unavailable [phone] Christina Louis IMPROVEMENT LEADER Unavailable [phone] Sylvia Dawson Primary Care Provider [phone] Encounter Details Date Type Department Care Team (Late st Contact Info) Description 05/28/2022 Orders Only [facility] Neuro Interventional Radiology 1 [place] [address] Dian Rosa Cerebral aneurysm, nonruptured (Primary Dx) Social History [...] file Legal Sex Female 3:42 AM CAREER AND TRANSITION TEACHER Gender Identity Not on file Sexual Orientation Not on file 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 on file Not on file Not on file documented as of this encounter Plan of Treatment Not on file documented as of this encounter Results * Protime-INR (06/13/2022 10:48 AM CAREER AND TRANSITION TEACHER) Pathologist [facility] PT 10.5 9.2 - 13.5 sec [facility] INR 1.0 0.9 - 1.2 [facility] Comment: Interpretive data Oral anticoagulant therapeutic ranges: Venous thromboembolism prophylaxis or treatment: 2.0-3.0 CARDIOLOGY Standard range: 2.0-3.0 High-intensity range: 2.5-3.5 Refer to indication-specific guidelines for appropriate target ranges for prosthetic heart valve replacement. Current interpretive data was last revised on 2019. Blood 06/13/2022 10:4 8 AM CAREER AND TRANSITION TEACHER 06/13/2022 1:17 PM CAREER AND TRANSITION TEACHER Narrative [facility] - 06/13/2022 1:37 PM CAREER AND TRANSITION TEACHER CPAP ORDER us Abdiaziz Moss MD LAB BLOOD ORDERABLES Final Re sult [facility] [place] [address] * (ABNORMAL) CBC with auto differential (06/13/2022 10:48 AM CAREER AND TRANSITION TEACHER) WBC 4.0 3.8 - 9.9 K/cumm [facility] Hgb 12.0 11.9 - 15.5 g/dL [facility] Hct 37.2 35.6 - 45.5 % [facility] Plt 207 150 - 400 K/cumm [facility] MPV 10.8 9.1 - 12.3 fL [facility] RBC 3.64(L) 3.90 - 5.20 M/cumm [facility] MCV 102.2(H) 81.3 - 96.4 fL [facility] MCH 33.0 27.1 - 33.3 pg [facility] MCHC 32.3 32.3 - 35.7 g/dL [facility] RDW CV 13.5 11.1 - 14.9 % [facility] RDW SD 50.1(H) 35.7 - 48.1 fL [facility] NRBC abs 0.00 0.00 - 0.01 K/cumm [facility] Blood 06/13/2022 10:4 8 AM CAREER AND TRANSITION TEACHER 06/13/2022 1:21 PM CAREER AND TRANSITION TEACHER Narrative [facility] - 06/13/2022 1:32 PM CAREER AND TRANSITION TEACHER CPAP ORDER Abdiaziz Moss MD LAB BLOOD ORDERABLES Final Re sult [facility] [place] [address] * Basic metabolic panel (06/13/2022 10:48 AM CAREER AND TRANSITION TEACHER) Sodium 143 135 - 145 mmol/L [facility] Potassium, pl 4.3 3.3 - 4.9 mmol/L [facility] Chloride 105 97 - 110 mmol/L [facility] CO2 29 22 - 32 mmol/L [facility] Anion gap 9 2 - 15 mmol/L [facility] BUN 10 8 - 25 mg/dL [facility] Creatinine 0.78 0.60 - 1.10 mg/dL [facility] Glucose 76 70 - 199 mg/dL [facility] Comment: Interpretive Data Fasting glucose >/= 126 mg/dl is diagnostic for diabetes. ?? Fasting is defined as no caloric intake [...] classification and Diagnosis of Diabetes Diabetes Care 2021; 46: S19-S40. Current interpretive data was last revised 2022. Calcium 9.1 8.5 - 10.3 mg/dL [facility] Blood 06/13/2022 10:4 8 AM CAREER AND TRANSITION TEACHER 06/13/2022 1:21 PM CAREER AND TRANSITION TEACHER Narrative [facility] - 06/13/2022 1:51 PM CAREER AND TRANSITION TEACHER CPAP ORDER Has the patient fasted?->No us Abdiaziz Moss MD LAB BLOOD ORDERABLES Final Re sult [facility] [place] [address] documented in this encounter Visit Diagnoses Diagnosis Cerebral aneurysm, nonruptured- Primary documented in this encounter Care Teams Physicist Cryogenics Relationship Specialty Start Date End Date Sylvia Dawson PA [address] [place] [id number] PCP - General Internal Medicine 01/05/20 Erica Rodrigues MD [address] LL [facility] [address] [place] [address] Radiation Oncologist Radiation Oncology 10/25/18 Gasper Kaba MD [address] LL [facility] [address] [place] [address] Surgeon Surgical Oncology 10/25/18 Brandy Aguirre, BONDERIZER OPERATOR [address] LL [facility] [address] [place] [address] Nurse Practitioner Certified Clinical Nurse Specialist 10/25/18 Jo-Ann Morrow, PhD [address] LL [facility] [address] [place] [address] Nurse Practitioner Radiation Oncology 10/25/18 Christina Louis NP [address] [facility] [address] [place] [address] Nurse Practitioner Medical Oncology 10/25/18 documented as of this encounter
--- OUTSIDE RECORDS SUMMARY | 2024-04-24 05:51 | XMS_ITS | Encounter Summary ---
Author Organization [facility] Address [address] [place] [address] Phone Care Team Providers Care Doll Repairer Name Role Phone Erica Rodrigues MD Unavailable Gasper Kaba MD Unavailable Brandy Aguirre MANAGING PRINCIPAL Unavailable [phone] Jo-Ann Morrow PhD Unavailable [phone] Christina Louis FRAME MAKER Unavailable [phone] Sylvia Dawson Primary Care Provider [phone] Reason for Referral * Diagnostic Imaging (Routine) - Closed Specialty Diagnoses / Procedures Referred By Contac t Referred To Contact Diagnoses Cystoid macular edema of both eyes Procedures OCT, Retina - OU - Both Eyes Thomas Hinojosa DO Phone: tel: fax: [facility] (All Locations) Referral ID Status Reason Start Date Expiration Date Visits Re quested Visits Authorized [id number] Closed 05/15/2022 06/14/2023 1 1 RICT TRAFFIC CHIEF Encounter Details Date Type Department Care Team (Late st Contact Info) Description 05/15/2022 9:30 AM DISTRICT TRAFFIC CHIEF Office Visit [facility] Ophthalmology [facility] 6th [place] [address] Jessy Adame MD [address] [facility] 6 [place] [address] Cystoid macular edema of both eyes (Primary [...] on file Legal Sex Female 3:42 AM DISTRICT TRAFFIC CHIEF Gender Identity Not on file Sexual Orientation Not on file 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 HPI 4 week f/u- [facility] has improved in OS the past week since being off all gtts. Denies having any new floaters. Sees a rolling flash temporally OS. - Stent in R Carotid, Stent in L Carotid- pressure behind OS and ROMAN since sx. Will go backfor Brain aneurism sx on 05/27/2022. Finished Durezol and Dorzolamide last Thu. Last edited by Otilia Francisco COA on 05/15/2022 9:34 AM. Assessment/Plan Diagnoses and all orders for this visit: Cystoid macular edema of both eyes (Primary) Assessment & Plan: Currently off durezol completely since 05/04. OCT [...] planning any surgery in the right eye. Orders: - OCT, Retina - OU - Both Eyes OCT, Retina - OU - Both Eyes Right Eye Quality was good. Scan locations included subfoveal. Progression has been stable. Findings include abnormal foveal contour, lamellar hole. Left Eye Quality was good. Progression has been stable. Findings include normal observations. Notes Left eye (OS): resolved IRF OS. The signs and symptoms of retinal detachment, tears, infection, elevated intra- ocular pressure werereviewed with the patient. Patient knows to call should they have any of the symptoms. PLAN FOR NEXT VISIT Follow-up and Dispositions Return in about 2 months (around 07/13/2022) for Dilated exam OU, OCT OU. I have examined the patient, reviewed and edited the chart as needed, and discussed the findings, diagnosis and plan with the resident. I agree with the findings, diagnosis, plan that we have createdand documented. Jessy Adame MD RICT TRAFFIC CHIEF documented in this encounter Miscellaneous Notes * Assessment & Plan Note - Thomas Hinojosa DO - 05/15/2022 10:03 AM CSTAssociated Problem(s): Cystoid macular edema of both eyes Currently off durezol completely since 05/04. OCT [...] planning any surgery in the right eye. RICT TRAFFIC CHIEF RICT TRAFFIC CHIEF RICT TRAFFIC CHIEF documented in this encounter Plan of Treatment Not on file documented as of this encounter Procedures Procedure Name Priority Date/Time Associated Diagnosis Comments OCT, RETINA - OU - BOTH EYES Routine 05/15/2022 10:24 AM DISTRICT TRAFFIC CHIEF Cystoid macular edema of both eyes documented in this encounter Results * OCT, Retina - OU - Both Eyes (05/15/2022 10:24 AM DISTRICT TRAFFIC CHIEF) Anatomical Region Laterality Modality Head Optical Coherenc e Tomography Narrative 05/15/2022 10:24 AM DISTRICT TRAFFIC CHIEF Right Eye Quality was good. Scan locations included subfoveal. Progression has been stable. Findings include abnormal foveal contour, lamellar hole. Left Eye Quality was good. Progression has been stable. Findings include normal observations. Notes Left eye (OS): resolved IRF OS. [facility] OPHTH TOMOGRAPHY Final Result documented in this encounter Visit Diagnoses Diagnosis Cystoid macular edema of both eyes- Primary Cystoid macular degeneration of retina documented in this encounter Eye Exam Visual Acuity (Snellen - Linear) Right eye Left eye Dist sc 20/20 -1 20/25 +1 Tonometry (Tonopen, 9:40 AM) Right eye Left eye Pressure 14 13 Pupils Dark Light Shape React APD Right eye 5 4 Round Brisk None Left eye 6 5 Round Sluggish None Extraocular Movement Right eye Left eye Full Full Neuro/Psych Oriented x3: Yes Mood/Affect: Normal Dilation Both eyes: 1.0% Mydriacyl, 2 .5% Phenylephrine @ 9:43 AM External Exam Right eye Left eye External Normal Slit Lamp Exam Right eye Left eye Lids/Lashes Normal Normal Conjunctiva/Sclera White and quiet White and gael et Cornea CleaR CleaR Anterior Chamber Deep and quiet Deep and quiet Iris Round and reactive Round and erasmo ctive Lens PCIOL, open capsule PCIOL, open capsule Anterior Vitreous vit syn avitretric Fundus Exam Right eye Left eye Posterior Vitreous VIT SYN avitretic Disc Normal Normal C/D Ratio 0.4 0.4 Macula Normal Normal Vessels Normal Normal Periphery Vit syn Attached 360 Care Teams Doll Repairer Relationship Specialty Start Date End Date Sylvia Dawson PA [address] [place] [address] PCP - General Internal Medicine 01/05/20 Erica Rodrigues MD [address] [facility] [address] [place] [address] Radiation Oncologist Radiation Oncology 10/25/18 Gasper Kaba MD [address] LL [facility] [address] [place] [address] Surgeon Surgical Oncology 10/25/18 Brandy Aguirre, MANAGING PRINCIPAL [address] LL [facility] [address] [place] [address] Nurse Practitioner Certified Clinical Nurse Specialist 10/25/18 Jo-Ann Morrow, PhD [address] [facility] [address] [place] [address] Nurse Practitioner Radiation Oncology 10/25/18 Christina Louis, FRAME MAKER [address] [facility] [address] [place] [address] Nurse Practitioner Medical Oncology 10/25/18 documented as of this encounter
--- OUTSIDE RECORDS SUMMARY | 2024-04-24 05:51 | XMS_ITS | Encounter Summary ---
Author Organization [facility] Address [address] [place] [address] Phone Care Team Providers Care Carpentry Specialist Name Role Phone Erica Rodrigues MD Unavailable Gasper Kaba MD Unavailable [phone] Brandy Aguirre IMMUNOLOGIST Unavailable Jo-Ann Morrow PhD Unavailable [phone] Christina Louis FOUNTAIN MANAGER Unavailable [phone] Sylvia Dawson Primary Care Provider [phone] Encounter Details Date Type Department Care Team (Late st Contact Info) Description 06/24/2022 Telephone [facility] Neurosurgery [address] [facility] Advanced Medicine 6th [place] [address] [place] [address] Lizzie Green, FOUNTAIN MANAGER [address] [place] [address] Social History Tobacco Use Types Packs/Day Years [...] on file Legal Sex Female 3:42 AM 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 I discussed this with Dr. Moss. We will keepher on DAPT and will continue to monitor the symptoms. She is encouraged to call with any new or worsening symptoms, questions or concerns in the interim. documented in this encounter Plan of Treatment Not on file documented as of this encounter Visit Diagnoses Not on filedocumented in this encounter Care Teams Carpentry Specialist Relationship Specialty Start Date End Date Sylvia Dawson PA [address] [facility] [address] [place] [address] PCP - General Internal Medicine 01/05/20 Erica Rodrigues MD [address] LL [facility] [address] [place] [address] Radiation Oncologist Radiation Oncology 10/25/18 Gaspre Kaba MD [address] LL [facility] [address] [place] [address] Surgeon Surgical Oncology 10/25/18 Brandy Aguirre, IMMUNOLOGIST [address] [facility] [address] # LL LL [address] [place] [address] Nurse Practitioner Certified Clinical Nurse Specialist 10/25/18 Jo-Ann Morrow, PhD [address] [facility] [address] LL LL [address] [place] [address] Nurse Practitioner Radiation Oncology 10/25/18 Christina Louis, FOUNTAIN MANAGER [address] [facility] [address] LL [address] [place], [place] [address] Nurse Practitioner Medical Oncology 10/25/18 documented as of this encounter
--- OUTSIDE RECORDS SUMMARY | 2024-04-24 05:51 | XMS_ITS | Encounter Summary ---
Author Organization [facility] Address [address] [place] [address] Care Team Providers Care Clinical Services Specialist Name Role Phone Erica Rodrigues MD Unavailable Gasper Kaba MD Unavailable Brandy Aguirre LACE SEWER Unavailable [phone] Jo-Ann Morrow PhD Unavailable [phone] Christina Louis ASSEMBLY WORKER Unavailable [phone] Sylvia Dawson Primary Care Provider [phone] Encounter Details Date Type Department Care Team (Late st Contact Info) Description 05/08/2022 Orders Only [facility] Pulmonary Amber [address] [place] [address] Douglas Acosta MD [address] [facility] [address] [address] JOSE (obstructive sleep apnea) (Primary Dx) Social [...] on file Legal Sex Female 3:42 AM CARE ATTENDANT Gender Identity Not on file Sexual Orientation Not on file 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 on file Not on file Not on file documented as of this encounter Progress Notes * Douglas Acosta MD - 05/08/2022 12:17 PM CST I entered the CPAP titration study order ATTENDANT documented in this encounter Plan of Treatment Not on file documented as of this encounter Visit Diagnoses Diagnosis JOSE (obstructive sleep apnea)- Primary Obstructive sleep apnea (adult) (pediatric) documented in this encounter Care Teams Clinical Services Specialist Relationship Specialty Start Date End Date Sylvia Dawson PA [address] [address] PCP - General Internal Medicine 01/05/20 Erica Rodrigues MD [address] [facility] [address] [place] [address] Radiation Oncologist Radiation Oncology 10/25/18 Gasper Kaba MD [address] [facility] [address] [place] [address] Surgeon Surgical Oncology 10/25/18 Brandy Aguirre CNS [address] [facility] [address] [place] [address] Nurse Practitioner Certified Clinical Nurse Specialist 10/25/18 Jo-Ann Morrow, PhD [address] [facility] [address] LL [address] [place] [address] Nurse Practitioner Radiation Oncology 10/25/18 Christina Louis, ASSEMBLY WORKER [address] [facility] [address] LL [address] [place] [address] Nurse Practitioner Medical Oncology 10/25/18 documented as of this encounter
--- OUTSIDE RECORDS SUMMARY | 2024-04-24 05:51 | XMS_ITS | Encounter Summary ---
Author Organization [facility] [employer] [facility] Address [address] [place] [address] Phone Care Team Providers Care Security Project Manager Name Role Phone Erica Rodrigues MD Unavailable Gasper Kaba MD Unavailable Brandy Aguirre GEAR SETTER Unavailable Jo-Ann Morrow PhD Unavailable Christina Louis PRINTING EQUIPMENT MECHANIC APPRENTICE Unavailable [phone] Sylvia Dawson Primary Care Provider [phone] Reason for Visit * Reason Comments Establish Care Encounter Details Date Type Department Care Team (Late st Contact Info) Description 07/14/2022 9:00 AM CDT Office Visit [facility] Cardiology [address] [facility] [address] [place] [address] Valorie Young MD [address] [facility] [address] [place] [address] Hypertension, essential (Primary Dx) Social History Tobacco Use Types [...] on file Legal Sex Female 3:42 AM ROPE WALKER Gender Identity Not on file Sexual Orientation Not on file 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 on file Not on file Not on file documented as of this encounter Last Filed Vital Signs Vital Sign Reading Time Taken Comments Blood Pressure 126/76 07/14/2022 8:54 AM CDT Pulse 60 07/14/2022 8:54 AM CDT Temperature - - Respiratory Rate - - Oxygen Saturation 95% 07/14/2022 8:54 AM CDT Inhaled Oxygen Concentration - - Weight 65.1 kg (143 lb 9.6 oz) 07/14/2022 8:54 A M CDT Height 160 cm (5' 3 ) 07/14/2022 8:54 AM CDT Body Mass Index 25.44 07/14/2022 8:54 AM CDT documented in this encounter Patient Instructions * Patient Instructions* Valorie Young MD - 07/14/2022 9:00 AM CDT Continue current medications Watch your sodium intake. Do not add salt to food including sea salt. Resume regular exercise when advised to do so by surgeon Monitor your blood pressure twice daily and send readings in 3-4 weeks. Follow-up with me in 6 months documented in this encounter Progress Notes * Valorie Young MD - 07/14/2022 12:00 AM CDT Date: 07/15/2022 Patient Name: RAVEN DENNEY Date of : 1960 Date of Visit: 07/14/2022 HISTORY OF PRESENT ILLNESS: Mrs. Denney is a 62-year-old woman who presents for evaluation of hypertension. She was a previouspatient whom I last saw in 2000. At that time, her blood pressure was 120/81 and she was experiencing lower readings. Her amlodipine was discontinued. She reports that she had done well until she hadCOVID in early 2020. Blood pressure had previously been fluctuating, but she was hospitalized for 1week with COVID pneumonia and at discharge her blood pressures were very low. She was off all medications and then the readings started to slowly increase to a normal range. Her readings now have been very labile, ranging from 95/70 to 145/95. She reports that she does not feel well when her blood pressure is greater than about 135 to 140 over 90. 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 Since then, it was noted to increase in size to 6 mm and she underwent Woven EndoBridge repair in June 2022. She also was found to have bilateral carotid dissections in March 2022 and had bilateral carotid stents placed. She has been followed by a local shaper and presser for tachycardia since early 2019. The patient reports compliance with her medications. She takes hydrochlorothiazide only as neededif blood pressure is greater than 140/90 and she has done so 1 to 2 times per month. PAST MEDICAL HISTORY: 1. Hypertension, as above. 2. Tachycardia. 3. Breast cancer diagnosed in 2014, status post right lumpectomy. She was treated with Arimidex for1 month which was discontinued due to a side effect of arthritis. 4. 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 5. Obstructive sleep apnea diagnosed in April 2022. 6. Bilateral carotid dissections, status post carotid stents in March 2022. 7. Anterior communicating artery aneurysm repair with a WEB in June 2022. 8. COVID early 2020. CURRENT MEDICATIONS: 1. Lisinopril 20 mg daily. 2. Fioricet with codeine p.r.n. 3. Valacyclovir 500 mg as directed. 4. Fluoxetine 20 mg daily. 5. Acetaminophen 325 mg every 6 hours p.r.n. 6. Aspirin 81 mg daily. 7. Atenolol 25 mg daily. 8. Folic acid 1 mg daily. 9. Hydrochlorothiazide 12.5 mg as needed for blood pressure greater than 140/90. 10. Hydroxychloroquine 200 mg daily. 11. Methotrexate 2.5 mg 8 tablets every 7 days. 12. Sulfasalazine 500 mg 2 tablets b.i.d. 13. Ticagrelor 60 mg b.i.d. ALLERGIES: ADHESIVES - HIVES. CYCLIZINE - HALLUCINATIONS FAMILY HISTORY: Her mother is 87 years old and possibly has hypertension, but had a TAVR for bicuspid aortic valve and repair aortic aneurysm. She also has polio. Father at age 89 with cancer and dementia and had hypertension. Sister and brother with hypertension. SOCIAL HISTORY: She is . She denies any tobacco or illicit drug use. She has 1 to 2 drinks per month at most. She adds sea salt to her foods, does not eat out, and does not use canned foods. She has 1 cup of caffeinated coffee each morning and a cup of tea in the afternoon. She is not getting any structuredexercise, but plans to resume once cleared from after the aneurysm repair. REVIEW OF SYSTEMS: Notable for some lack of energy due to the obstructive sleep apnea, shortness of breath with exercise, and bruising since being on the Brilinta. She has occasional headaches. All other systems are negative on complete 10-point system review. PHYSICAL EXAMINATION: GENERAL: On exam, she is a very pleasant woman in no distress. VITAL SIGNS: Blood pressure 126/76. Pulse 60. Weight 143. BMI is 25.4. HEENT: Normocephalic, atraumatic. Pupils equal, round, and reactive to light. Extraocular movementsintact. Fundi not visualized. Oral cavity and oropharynx clear. NECK: Supple. No carotid bruits and good upstrokes. LUNGS: Clear to auscultation bilaterally. HEART: Regular rate and rhythm without murmurs, gallops, or rubs. ABDOMEN: Soft, nontender. No palpable masses. No audible bruits. EXTREMITIES: Without edema. Pulses 2+ and symmetrical. NEUROLOGICAL: Grossly nonfocal. DATA: Electrocardiogram today which was reviewed by me shows sinus bradycardia at 57 beats per minute without ST or T-wave abnormalities. Laboratories from 06/13/2022 show a sodium 143, potassium 4.3, creatinine 0.78, hemoglobin 12.0. Lipid panel from August 2021, total cholesterol 277, triglycerides 63, HDL 96, and LDL 171. IMPRESSION AND RECOMMENDATIONS: This is a 62-year-old woman with fluctuating blood pressure in the setting of recent cerebral aneurysm repair and stenting of bilateral carotid dissections. Her blood pressure in the office today is adequate, along with the heart rate. I am not going to make any changes in her regimen, but I have asked her to monitor her blood pressure twice daily and report readings in the next 3 to 4 weeks. We discussed the importance of following a low-sodium diet which includes not adding sea salt. She willresume regular exercise when advised to do so by her surgeon. I plan to see her back for follow-up in about 6 months. In the interim, she is scheduled to see Dr. Nazia Ventura regarding her hyperlipidemia. The patient will also make note the frequency of the hydrochlorothiazide use as this is not the best option for a p.r.n. medication. ELECTRONICALLY SIGNED - 07/15/2022 11:43 PM Valorie Young M.D. pallet stone positioner Internal Medicine/Hypertension Specialist AB/bp cc: AUBREY ADKINS / / documented in this encounter Plan of Treatment Not on file documented as of this encounter Procedures Procedure Name Priority Date/Time Associated Diagnosis Comments ECG 12-LEAD Routine 07/14/2022 Hypertension, essential documented in this encounter Results * ECG 12 lead (07/14/2022) us Valorie Young MD ECG ORDERABLES Final Result documented in this encounter Visit Diagnoses Diagnosis Hypertension, essential- Primary Unspecified essential hypertension documented in this encounter Care Teams Security Project Manager Relationship Specialty Start Date End Date Sylvia Dawson PA [address] [facility] [address] [place] [address] PCP - General Internal Medicine 01/05/20 Erica Rodrigues MD [address] [facility] [address] [place] [address] Radiation Oncologist Radiation Oncology 10/25/18 Gasper Kaba MD [address] [facility] [address] [place] [address] Surgeon Surgical Oncology 10/25/18 Brandy Aguirre, CARINA [address] [facility] [address] [place] [address] Nurse Practitioner Certified Clinical Nurse Specialist 10/25/18 Jo-Ann Morrow, PhD [address] [place] [address] Nurse Practitioner Radiation Oncology 10/25/18 Christina Louis PRINTING EQUIPMENT MECHANIC APPRENTICE [address] [facility] [address] [facility] [address] [place] [address] Nurse Practitioner Medical Oncology 10/25/18 documented as of this encounter
--- OUTSIDE RECORDS SUMMARY | 2024-04-24 05:51 | XMS_ITS | Encounter Summary ---
Author Organization [facility] [employer] [facility] Address [address] [place] [address] Phone Care Team Providers Care Glue Specialty Supervisor Name Role Phone Erica Rodrigues MD Unavailable Gasper Kaba MD Unavailable Brandy Aguirre FOUNDATION ASSISTANT Unavailable [phone] Jo-Ann Morrow PhD Unavailable [phone] Christina Louis CLINICAL MANAGER Unavailable [phone] Sylvia Dawson Primary Care Provider [phone] Reason for Referral * Diagnostic Imaging (Routine) - Closed Specialty Diagnoses / Procedures Referred By Contac t Referred To Contact Diagnoses Cystoid macular edema of both eyes Procedures OCT, Retina - [place] [address] [place] [address] [address] [place] [address] Phone: tel: fax: [facility] (All Locations) Referral ID Status Reason Start Date Expiration Date Visits Re quested Visits Authorized [id number] Closed 07/17/2022 08/16/2023 1 1 Reason for Visit * Reason Comments CME OU Encounter Details Date Type Department Care Team (Late st Contact Info) Description 07/17/2022 9:30 AM CDT Office Visit [facility] Ophthalmology [address] 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 Lots of floaters OD, no new. She reports she also has a rollinglight lasting only a second in her periphery OS. Denies eye pain/discomfort. Brain aneurism sx on 06/16/2022. Still on Brilenta. No gtts Last edited by Otilia Francisco COA on 07/17/2022 9:30 AM. Assessment/Plan Diagnoses and all orders for [...] as possible.They understand and wish to proceed. Orders: - OCT, Retina - OU - [...] Follow-up and Dispositions Return in about 3 months (around 10/16/2022) for Dilated exam OU, OCT OU. documented in this encounter Miscellaneous Notes * Assessment & Plan Note - Jessy Adame MD - 07/17/2022 10:30 AM CDT Associated Problem(s): Cystoid macular edema [...] as possible.They understand and wish to proceed. documented in this encounter Plan of Treatment Not on file documented as of this encounter Procedures Procedure Name Priority Date/Time Associated Diagnosis Comments OCT, RETINA - OU - BOTH EYES Routine 07/17/2022 10:29 AM CDT Cystoid macular edema of both eyes documented in this encounter Results * OCT, Retina - OU - Both Eyes (07/17/2022 10:29 AM CDT) Anatomical Region Laterality Modality Head Optical Coherenc e Tomography Narrative 07/17/2022 10:29 AM CDT Right Eye Quality was good. Scan locations included subfoveal. Progression has been stable. Findings include abnormal foveal contour, lamellar hole. Left Eye Quality was good. Progression has been stable. Findings include normal observations. Notes Left eye (OS): resolved IRF OS. us Jessy Admae MD OPHTH TOMOGRAPHY Final Res ult documented in this encounter Visit Diagnoses Diagnosis Cystoid macular edema of both eyes- Primary Cystoid macular degeneration of retina documented in this encounter Eye Exam Visual Acuity (Snellen - Linear) Right eye Left eye Dist sc 20/20 20/25 Tonometry (Tonopen, 9:36 AM) Right eye Left eye Pressure 14 200 Pupils Pupils Dark Light Shape React APD Right eye PERRL 5 4 Round Brisk None Left eye PERRL 6 5 Round Minimal None Visual Grossman Counting fingers Extraocular Movement Right eye Left eye Full, Ortho Full, Ortho Neuro/Psych Oriented x3: Yes Mood/Affect: Normal Dilation Right eye: 1.0% Mydriacyl, 2 .5% Phenylephrine @ 9:37 AM External Exam Right eye Left eye [...] Periphery Vit syn Attached 360 Care Teams Glue Specialty Supervisor Relationship Specialty Start Date End Date Sylvia Dawson PA [address] [facility] [address] [place] [address] PCP - General Internal Medicine 01/05/20 Erica Rodrigues MD [address] [facility] [address] [place] [id number] [place] [address] Radiation Oncologist Radiation Oncology 10/25/18 Gasper Kaba MD [address] [facility] [address] [facility] [address] [place] [address] Surgeon Surgical Oncology 10/25/18 Brandy Aguirre CNS [address] [facility] [address] [facility] [address] [place] [address] Nurse Practitioner Certified Clinical Nurse Specialist 10/25/18 Jo-Ann Morrow, PhD [address] [facility] [address] [place] [address] Nurse Practitioner Radiation Oncology 10/25/18 Christina Louis NP [address] [facility] [address] [place] [address] Nurse Practitioner Medical Oncology 10/25/18 documented as of this encounter
--- OUTSIDE RECORDS SUMMARY | 2024-04-24 05:51 | XMS_ITS | Encounter Summary ---
Author Organization [facility] Address [address] [place] [address] Phone Care Team Providers Care Single Wire Saw Operator Name Role Phone Eriac Rodrigues MD Unavailable Gasper Kaba MD Unavailable [phone] Brandy Aguirre HOURLY TEAM MEMBERS Unavailable Jo-Ann Morrow PhD Unavailable [phone] Christina Louis USABILITY ARCHITECT Unavailable [phone] Sylvia Dawson Primary Care Provider [phone] Encounter Details Date Type Department Care Team (Late st Contact Info) Description 05/27/2022 12:20 PM RN MEDICARE Office Visit [facility] Neurosurgery [address] [facility] 6th [place] [address] [place] [address] Abdiaziz Moss MD [address] [place] [address] Cerebral aneurysm, nonruptured (Primary Dx) Social History [...] on file Legal Sex Female 3:42 AM RN MEDICARE Gender Identity Not on file Sexual Orientation Not on file 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 Not on file Not on file documented as of this encounter Last Filed Vital Signs Vital Sign Reading Time Taken Comments Blood Pressure 144/87 05/27/2022 12:37 PM RN MEDICARE Pulse 65 05/27/2022 12:37 PM RN MEDICARE Temperature - - Respiratory Rate - - Oxygen Saturation - - Inhaled Oxygen Concentration - - Weight 61.2 kg (135 lb) 05/27/2022 12:37 PM RN MEDICARE Height 160 cm (5' 3 ) 05/27/2022 12:37 PM RN MEDICARE Body Mass Index 23.91 05/27/2022 12:37 PM RN MEDICARE documented in this encounter Progress Notes * Abdiaziz Moss MD - 05/27/2022 12:20 PM CST Patient Name: RAVEN DENNEY Medical Record Number (MRN): [id number] Date of (): 1960 Encounter Date: 05/27/2022 PRIMARY CARE PROVIDER: Sylvia Dawson PA REFERRING PROVIDER: Sylvia Dawson PA INTERVAL HISTORY Raven Denney a 61-year-old woman with an anterior communicating artery aneurysm. She has bilateral carotid artery dissections that I recently stented in lieu of treating her aneurysm. She is doing well since her stent placement. She still complains of some subjective ???brain fog?? . Her othersymptoms including neck pain, pulsatile tinnitus, speech pauses and vision loss have resolved. She is currently taking aspirin and Brilinta VITAL SIGNS Vitals: 05/27/22 1237 BP: 144/87 Pulse: 65 Weight: 61.2 kg (135 lb) Height: 160 cm (5' 3 ) PHYSICAL [...] sensation was normal REVIEW OF IMAGING: None New ASSESSMENT AND PLAN: Raven Denney is a 61-year-old woman with an anterior communicating artery aneurysm that is still in treated and bilateral carotid dissections were treated with stents. Today we have discussed scheduling her for aneurysm treatment and will proceed with getting that scheduled,. Patient feels that her Brilinta is currently contributing to her ???brain fog?? . I will reduce her dose to 60 mg b.i.d. and see if this makes any difference Thank you for allowing me to participate in the care of your patient. If you have any questions, feel free to contact me at [phone]. Sincerely, Abdiaziz Moss MD MEDICARE documented in this encounter Plan of Treatment Not on file documented as of this encounter Visit Diagnoses Diagnosis Cerebral aneurysm, nonruptured- Primary documented in this encounter Care Teams Single Wire Saw Operator Relationship Specialty Start Date End Date Sylvia Dawson PA [address] [place] [address] PCP - General Internal Medicine 01/05/20 Erica Rodrigues MD [address] [place] [address] Radiation Oncologist Radiation Oncology 10/25/18 Gasper Kaba MD [address] [place] [address] Surgeon Surgical Oncology 10/25/18 Brandy Aguirre, HOURLY TEAM MEMBERS [address] [place] [address] Nurse Practitioner Certified Clinical Nurse Specialist 10/25/18 Jo-Ann Morrow, PhD [address] [place] [address] Nurse Practitioner Radiation Oncology 10/25/18 Christina Louis, JENNI [address] [place] [address] Nurse Practitioner Medical Oncology 10/25/18 documented as of this encounter
--- OUTSIDE RECORDS SUMMARY | 2024-04-24 05:51 | XMS_ITS | Encounter Summary ---
Author Organization [facility] Healthcare Address [address] [place] [address] Care Team Providers Care Terminal Operations Supervisor Name Role Phone Erica Rodrigues MD Unavailable Gasper Kaba MD Unavailable Brandy Aguirre [employer] Unavailable [phone] Jo-Ann Morrow PhD Unavailable [phone] Christina Louis TUB ATTENDANT Unavailable [phone] Sylvia Dawson Primary Care Provider [phone] Reason for Referral * Diagnostic Imaging (Routine) - Closed Specialty Diagnoses / Procedures [facility] Referred To Contact Radiology Diagnoses Cerebral aneurysm, nonruptured Procedures IR Permanent Occlusion or Embolization PRESS [employer]END[employer] Abdiaziz Moss MD [address] [facility] [address] [place] [address] Phone: tel: fax: [address] [phone] Referral ID Status Reason Start Date Expiration Date Visits Re quested Visits Authorized [id number] Closed 05/28/2022 06/27/2023 1 1 ULATING OPERATOR Reason for Visit * Auth/Cert (Routine) Specialty Diagnoses / Procedures [facility] Referred To Contact Diagnoses Brain aneurysm Aneurysm (CMS/HCC) (HCC) Procedures NA Referral ID Status Reason Start Date Expiration Date Visits Re quested Visits Authorized [id number] 1 1 Encounter Details Date Type Department Care Team (Latest Contact Info) Description 06/16/2022 2:51 PM COAGULATING OPERATOR - 06/17/2022 10:12 AM COAGULATING OPERATOR Hospital Encounter [facility] [address] [place] [address] Abdiaziz Moss MD [address] [place] [address] Ramirez Joshi DO [address] [place] [address] Cerebral aneurysm, nonruptured Discharge Disposition: Discharge to [...] on file Legal Sex Female 3:42 AM COAGULATING OPERATOR Gender Identity Not on file Sexual Orientation Not on file 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 Not on file Not on file Not on file documented as of this encounter Last Filed Vital Signs Vital Sign Reading Time Taken Comments Blood Pressure 127/82 06/17/2022 9:00 AM COAGULATING OPERATOR Pulse 79 06/17/2022 9:00 AM COAGULATING OPERATOR Temperature 36.7 ??C (98.1 ??F) 06/17/2022 6:45 AM CS T Respiratory Rate 17 06/17/2022 9:00 AM COAGULATING OPERATOR Oxygen Saturation 98% 06/17/2022 9:00 AM COAGULATING OPERATOR Inhaled Oxygen Concentration - - Weight - - Height 160 cm (5' 3 ) 06/16/2022 8:00 PM COAGULATING OPERATOR Body Mass Index - - documented in this encounter Discharge Summaries * Mirlande Watts, TUB ATTENDANT - 06/16/2022 2:55 PM CST Inpatient Discharge Summary BRIEF OVERVIEW Admitting Provider: Abdiaziz Moss MD Discharge Provider: Abdiaziz Moss MD Primary Care Physician at Discharge: Sylvia Dawson PA [phone] Admission Date: 06/16/2022 Discharge Date: 06/17/2022 Admission Location: [facility] Problems/Diagnoses: Active Problems: No Active Problems: There are no active problems currently on the Problem List. Please update the Problem List and refresh. Resolved Problems: No resolved hospital problems. DETAILS OF HOSPITAL STAY Presenting Problem/History of Present Illness: Yesika Manzanares is a 61 y.o. 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 PAC ok. Problems addressed during this hospitalization: Anterior communicating artery aneurysm -- s/p angio for WEB for acom aneurysm 06/16 -- ASA 81mg daily -- Brilinta 60mg BID HTN -- cont home atenolol 25mg daily -- cont home HCTZ 12.5mg daily -- cont home Lisinopril 20mg daily Acute pain -- Controlled on an oral regimen Procedures: 06/16 angio for WEB for acom aneurysm Consults: none GI/ Concerns: Tolerating regular diet. Last bowel movement was on BILINGUAL TRAINER. Ely removed, now voiding spontaneously. Therapy recommendations: No PT/OT evaluation Incision: R groin Brace: N/A Surgical drains: N/A Notable medications: Pain medications: APAP Steroids: none Antibiotics: none Anticoagulation/antiplatelet agents: ASA 81mg/Brilinta 60mg (cont 6 months from 04/03) Anti-epileptic drugs: none Follow-up: Neurosurgery: Tasked for 6 weeks . Other services: None Lab tests/imaging necessary on follow-up: no additional scans/tests necessary Active Issues Requiring Follow-up: Operative Procedures Performed: * No procedures listed * Other Procedures: 3/6 angio for WEB for acom aneurysm Pertinent Test Results: No results found. Discharge Details Physical Exam at Discharge: Discharge Condition: good Pulse: 79 Resp: 14 BP: 102/60 Temp: 36.7 ??C (98.1 ??F) Weight: Pertinent Exam Findings at Discharge: AOx3 OEvoice, R, FC PERRL, EOMI, FS, TML No drift Strength 5/5 in BUE and BLE Right femoral access site cdi no hematoma Discharge Disposition: Discharge to home or self careHOME Code Status at Discharge: Full Discharge Instructions: SEE AVS Discharge Medications: Current Medications TAKE these medications acetaminophen 325 mg tablet Take 2 tablets (650 mg total) by mouth every 6 (six) hours as needed for pain Do not exceed 4000 mg of acetaminophen in a 24 hour period. Commonly known as: TYLENOL aspirin 81 mg enteric coated tablet Take 1 tablet (81 mg total) by mouth daily atenoloL 25 mg tablet TAKE 1 TABLET(25 MG) BY MOUTH DAILY Commonly known as: TENORMIN iobxdzmaet-vykxssnkprdoy-muuoyybf-codeine 23-129-94-30 mg per capsule Take 1 capsule by mouth every 4 (four) hours as needed for headaches For: tension headache Commonly known as: FIORICET WITH CODEINE CALTRATE 600 PLUS D ORAL Take 1 tablet by mouth every morning coenzyme Q10 200 mg capsule Take 1 capsule (200 mg total) by mouth every morning famotidine-Ca carb-mag hydrox 10-800-165 mg chewable tablet Take 1 tablet by mouth daily as needed for heartburn Commonly known as: PEPCID COMPLETE FLUoxetine 20 mg capsule Take 1 capsule (20 mg total) by mouth 2 (two) times a day Commonly known as: PROzac folic acid 1 mg tablet Take 2 tablets (2,000 mcg total) by mouth daily Commonly known as: FOLVITE hydroCHLOROthiazide 12.5 mg tablet TAKE 1 TABLET(12.5 MG) BY MOUTH DAILY Commonly known as: HYDRODIURIL hydrOXYchloroQUINE 200 mg tablet Take 1 tablet (200 mg total) by mouth daily Commonly known as: PLAQUENIL lisinopriL 20 mg tablet Take 1 tablet (20 mg total) by mouth daily Commonly known as: PRINIVIL,ZESTRIL methotrexate 2.5 mg tablet Take 8 tablets on multivitamin with minerals tablet Take 1 tablet by mouth every morning PreserVision Lutein 226-90-0.8-5 mg capsule Take 1 tablet by mouth every morning For: Eye support Generic drug: vit Z-K-zcbaoi-zinc-lutein sulfaSALAzine EN 500 mg EC tablet Take 2 tablets (1,000 mg total) by mouth 2 (two) times a day Commonly known as: AZULFIDINE EN ticagrelor 60 mg tablet Take 1 tablet (60 mg total) by mouth 2 (two) times a day Commonly known as: BRILINTA turmeric root extract 500 mg capsule Take 500 mg by mouth every morning valACYclovir 500 mg tablet Take 1 tablet (500 mg total) by mouth daily Commonly known as: Valtrex zinc 50 mg tablet Take 50 mg by mouth every morning Outpatient Follow-Up: Future Appointments Date Time Provider Department Center 06/19/2022 11:15 AM Douglas Acosta MD PLM E 350 Specialty 07/14/2022 9:00 AM Valorie Young MD CAR BW MOB3 Cardiology 07/17/2022 9:30 AM Jessy Adame MD RETINA COH 6 OP 08/06/2022 10:30 AM Nazia Ventura MD EML CAM 5C [facility] IM EML 10/02/2022 3:00 PM Patricia Martinez MD RHEU CAM 5C [facility] Rheum 03/03/2023 9:30 AM Sylvia Dawson PA FM [facility] 04/21/2023 10:00 AM Harpal De León MD MG CAR MRYVL Specialty Cosigned by Abdiaziz Moss MD at 06/23/2022 8:24 AM CDT ULATING OPERATOR ULATING OPERATOR documented in this encounter Discharge Instructions * Discharge Instructions* Mirlande Watts NP - 06/16/2022 3:15 PM COAGULATING OPERATOR Discharge Instructions You were admitted to the neurosurgery service because WEB for acom aneurysm. The following are instructions and guidelines meant to help in your recovery once you have been discharged from the hospital. When to call our office Call our office immediately (phone numbers listed at the end of these instructions) if you experience the following symptoms: Fever greater than 101??F Nausea or vomiting Change in mental status Seizures Intractable headache Pain not relieved by pain medication or rest Call 911 immediately if you experience the following symptoms: Sudden weakness or difficulty speaking and/or swallowing Sudden onset persistent headache, with nausea and/or vomiting Sudden change or loss of vision New difficulty with breathing Chest pain Activity You may feel tired and run down for a period of time. It is normal to sleep more or take more naps.Light activity is ok but avoid heavy house work, yard work or strenuous exercise. Short walks are encouraged. Activities can be slowly increased as tolerated. Driving privileges are left up to the discretion of your physician and will be discussed further atyour follow up appointment. You cannot drive while taking narcotic pain medication. [place] and [place] law prohibit anyone from operating a motor vehicle within 6 months of having a seizure. Diet You can return to your usual diet, unless instructed otherwise by your doctor. Medications Please continue taking your Aspirin 81mg daily and Brilinta 60mg twice a day for 6 months from 04/03/22. Follow up - Neurosurgery: You should follow up in Dr. Moss's clinic in 6 weeks with no additional scans/tests necessary. If you do not have a follow-up appointment, call to schedule one. Phone numbers Appointment Scheduling: Doctor???s Office: Dr. Jarek Moss, After hours emergency: or ULATING OPERATOR ULATING OPERATOR ULATING OPERATOR ULATING OPERATOR ULATING OPERATOR documented in this encounter Medications at Time of Discharge acetaminophen (TYLENOL) 325 mg tablet Take 2 tablets (650 mg total) by mouth every 6 (six) hours as needed for pain Do not exceed 4000 mg of acetaminophen in a 24 hour period. 04/10/2022 aspirin 81 mg enteric coated tablet Take 1 tablet (81 mg total) by mouth daily 90 tablet 3 05/28/2022 famotidine-Ca carb-mag hydrox (PEPCID COMPLETE) 10-800-165 mg chewable tabletIndication s:Heartburn Take 1 tablet by mouth daily as needed for heartburn multivitamin with minerals tabletIndication s:Vitamin Deficiency Prevention Take 1 tablet by mouth every morning vit F-N-xyqtfk-zinc- lutein (PreserVision Lutein) 226-90-0.8-5 mg capsuleIndicatio ns:Eye support Take 1 tablet by mouth 2 (two) times a day atenoloL (TENORMIN) 25 mg tablet TAKE 1 TABLET(25 MG) BY MOUTH DAILY 90 tablet 1 03/10/2022 3 butalbital-aceta minophen-caffein e-codeine (FIORICET WITH CODEINE) 83-095-59-30 mg per capsuleIndicatio ns:Tension-Type Headache Take 1 capsule by mouth every 4 (four) hours as needed for headaches 20 capsule 04/15/2022 3 calcium carbonate/vitami n D3 (CALTRATE 600 PLUS D ORAL) Take 1 tablet by mouth every morning 3 coenzyme Q10 200 mg capsule Take 1 capsule (200 mg total) by mouth every morning 3 FLUoxetine (PROzac) 20 mg capsuleIndicatio ns:Vasomotor symptoms due to menopause Take 1 capsule (20 mg total) by mouth 2 (two) times a day 180 capsule 1 02/27/2022 3 folic acid (FOLVITE) 1 mg tablet Take 2 tablets (2,000 mcg total) by mouth daily 180 tablet 3 05/26/2022 3 hydroCHLOROthiaz allegra (HYDRODIURIL) 12.5 mg tablet TAKE 1 TABLET(12.5 MG) BY MOUTH DAILY 90 tablet 05/29/2022 3 hydrOXYchloroQUI NE (PLAQUENIL) 200 mg tablet Take 1 tablet (200 mg total) by mouth daily 90 tablet 2 07/10/2021 3 lisinopriL (PRINIVIL,ZESTRI L) 20 mg tabletIndication s:Hypertension, essential Take 1 tablet (20 mg total) by mouth daily 90 tablet 2 05/26/2022 3 methotrexate 2.5 mg tablet Take 8 tablets on 96 tablet 2 05/26/2022 3 sulfaSALAzine EN (AZULFIDINE EN) 500 mg EC tablet Take 2 tablets (1,000 mg total) by mouth 2 (two) times a day 360 tablet 04/09/2022 3 ticagrelor (BRILINTA) 60 mg tablet Take 1 tablet (60 mg total) by mouth 2 (two) times a day 60 tablet 3 05/27/2022 3 turmeric root extract 500 mg capsule [...] or self care documented in this encounter Progress Notes * Charles Garcia MD - 06/17/2022 8:33 AM CST Neuro interventional Radiology Progress Note Interval History: Patient is a 61 years Female presenting with an incidentally discovered anterior communicating artery aneurysm in 2009 which has shown gradual increase in size on serial imaging. She had flow diversion of right internal carotid artery dissection with a surpass stent and LVIS stentplacement across the left internal carotid artery dissection in March 2022. She is currently on Aspirin 325 mg and Brilinta 60 mg b.d. PRU 129. Patient proceeded with a diagnostic cerebral angiogram and WEB embolization of the anterior communicating artery aneurysm on 06/16/2022. Exam: Awake, alert and well oriented to time, person and place. Cranial nerves are intact with no focal neurologic deficits. Right groin puncture site clean and dry. Blood pressure 102/60, heart rate79, temperature 36.7??, respiratory rate 14 and SpO2 95% on room air Imaging: Interventional neuro angiography performed on 06/16/2022 demonstrated - 1. Initial angiography demonstrated a wide necked Anterior Communicating artery aneurysm measuring approximately [5.4 mm x 3.3 mm] and projects superiorly and to the right side. 2. Successful endovascular placement of an intra-saccular Web device measuring [5 mm x 3 mm] in theaneurysm with appropriate stasis of contrast in the aneurysm dome. 3. Final angiography demonstrated demonstrated satisfactory device position in the aneurysm, flow restriction in the aneurysm dome, and brisk antegrade flow through the A2 divisions with no distal thromboembolic complications. 4. The LVIS stent is identified in the cervical segment of the left internal carotid artery with residual filling of the pseudoaneurysm measuring [3.6 mm x 2.6 mm] in the distal left ICA. Progress: She was experiencing headaches and blurry vision in the left lower quadrant yesterday butfortunately all her symptoms have completely resolved this morning. On direct confrontation test, she has no visual field deficits. Plan: Discharged home today Continue with Aspirin 325 mg and Brilinta 60 mg b.d x 4 months (commenced in March 2022 following bilateral carotid stent placement) Outpatient clinic follow-up in next 4 6 weeks. ULATING OPERATOR * Naz Cardoso MD - 06/17/2022 5:52 AM CST Neurosurgery Daily Progress Note 06/17/2022 Hospital Course 06/16 angio for WEB for acom aneurysm. PAC ok. Subjective no complaints Objective Physical Exam: AOx3 OEvoice, R, FC PERRL, EOMI, FS, TML No drift Strength 5/5 in BUE and BLE Right femoral access site cdi no hematoma Vitals: 24hr min/max vitals: Temp Min: 36.2 ??C (97.2 ??F) Max: 37.2 ??C (99 ??F) Pulse Min: 58 Max: 97 Resp Min: 10 Max: 20 SpO2 Min: 92 % Max: 100 % MAP (mmHg) Min: 72 Max: 100 Intake and output: I/O last 2 completed shifts: In: 1300 [IV Piggyback:1300] Out: 1120 [Urine:1100; Blood:20] Medications: Scheduled Scheduled Medications Medication Dose Route Frequency aspirin enteric coated tablet 81 mg 81 mg oral Daily atenoloL (TENORMIN) tablet 25 mg 25 mg oral Daily FLUoxetine (PROzac) capsule 20 mg 20 mg oral QAM folic acid (FOLVITE) tablet 2,000 mcg 2,000 mcg oral QAM hydroCHLOROthiazide (HYDRODIURIL) tablet 12.5 mg 12.5 mg oral Daily hydrOXYchloroQUINE (PLAQUENIL) tablet 200 mg 200 mg oral Daily lisinopriL (PRINIVIL,ZESTRIL) tablet 20 mg 20 mg oral Daily sodium chloride 0.9% flush 0.5-20 mL 0.5-20 mL intra-catheter Q8H JOSEPH sulfaSALAzine EN (AZULFIDINE EN) extended release tablet 1,000 mg 1,000 mg oral BID ticagrelor (BRILINTA) tablet 60 mg 60 mg oral BID As needed PRN Medications Medication Dose Route Frequency Last Admin acetaminophen (TYLENOL) tablet 650 mg 650 mg oral Q6H PRN 650 mg at 06/16/22 1608 Carrier Fluids for Secondary Infusion - 0.9% Sodium Chloride 30 mL intravenous PRN Carrier Fluids for Secondary Infusion - 0.9% Sodium Chloride 30 mL intravenous PRN diphenhydrAMINE (BENADRYL) injection 12.5 mg 12.5 mg intravenous Q15 Min PRN HYDROmorphone (DILAUDID) injection 0.2 mg 0.2 mg intravenous Q10 Min PRN HYDROmorphone (DILAUDID) injection 0.4 mg 0.4 mg intravenous Q10 Min PRN naloxone (NARCAN) 0.4 mg/mL injection 0.04-0.4 mg 0.04-0.4 mg intravenous Once PRN prochlorperazine (COMPAZINE) injection 5 mg 5 mg intravenous Once PRN sodium chloride 0.9% flush 0.5-20 mL 0.5-20 mL intra-catheter PRN sodium chloride 0.9% flush 0.5-20 mL 0.5-20 mL intra-catheter PRN traMADoL (ULTRAM) tablet 50 mg 50 mg oral Q6H PRN 50 mg at 06/16/228 Labs: Lab Results Component Value Date SODIUM 143 06/13/2022 SODIUM 137 04/09/2022 SODIUM 141 04/08/2022 Lab Results Component Value Date GLUCOSE 76 06/13/2022 CALCIUM 9.1 06/13/2022 POTASSIUM 4.3 06/13/2022 CO2 29 06/13/2022 CHLORIDE 105 06/13/2022 BUNSER 10 06/13/2022 CREATININE 0.78 06/13/2022 Lab Results Component Value Date WBC 4.0 06/13/2022 WBC 4.4 04/08/2022 WBC 4.4 03/25/2022 HGB 12.0 06/13/2022 HGB 12.5 04/08/2022 HGB 12.6 03/25/2022 HCT 37.2 06/13/2022 HCT 39.3 04/08/2022 HCT 38.8 03/25/2022 LABPLAT 207 06/13/2022 LABPLAT 218 04/08/2022 LABPLAT 233 03/25/2022 Lab Results Component Value Date INR 1.0 06/13/2022 INR 1.1 04/08/2022 INR 0.97 01/04/2015 PT 10.5 06/13/2022 PT 11.4 04/08/2022 APTT 34 06/13/2022 APTT 35 04/08/2022 APTT 33.3 01/04/2015 No components found for: TROPONIN PT/OT assessment: Assessment/Plan Hospital Day: 2 Yesika Manzanares is a 61 y.o. year old female who is s/p web placement acom anz. PMH: stent for bilat ICA carotid dissections 04/03 on DAPT. This patient has: brain compression. Plan Cont ASA81, brilinta for 6 months from 04/03 Dispo 06/17 DVT prophylaxis: subcutaneous heparin Responsible team (call resident in bold with questions) MD Raymundo Elder MD Peter Yang, MD For questions about this patient during the day, please contact the nurse practitioner signed into the patient's chart. For questions after hours, please page the neurosurgery front office java developer pager at [phone]. Note created by Naz Cardoso MD on 06/17/2022 at 5:52 AM. Cosigned by Abdiaziz Moss MD at 11/26/2022 8:58 AM CDT ULATING OPERATOR * Naz Cardoso MD - 06/16/2022 10:00 AM CST Brief neurosurgery note: Patient examined after Web placement. On exam, patient as follows: AOx3 OEspont, R, FC PERRL, EOMI, FS, TML No drift Strength 5/5 in BUE and BLE Right femoral access site cdi no hematoma Naz Cardoso MD ULATING OPERATOR documented in this encounter H&P Notes * Charles Garcia MD - 06/17/2022 10:12 AM CST History and Physical Subjective Patient is a 61 y.o. female presenting with an incidentally discovered anterior communicating artery aneurysm in 2009 which has shown gradual increase in size on serial imaging. HPI: She had flow diversion of right internal carotid artery dissection with a surpass stent and LVIS stent placement across the left internal carotid artery dissection in March 2022. She is currently on Aspirin 325 mg and Brilinta 60 mg b.d. PRU 129. Patient presents today for diagnostic cerebral angiogram and WEB embolization of the anterior communicating artery aneurysm. Past Medical History: Diagnosis Date Autoimmune disease (CMS/HCC) (HCC) Benign left breast lump 06/2002 biopsy showed fibrosis and hyperplasia Brain aneurysm Followed by Dr. Chaudhari: Every 3 years Breast cancer (CMS/HCC) (HCC) 2014 Invasive ductal carcinoma Cataract Depression Elevated cholesterol History of chemotherapy 2014 Breast cancer History of radiation therapy 2015 Right breast Hypertension Migraine Motion sickness sometimes on [address] [place] RA (rheumatoid arthritis) (HCC) Past Surgical History: Procedure Laterality Date ANGIO SELECTIVE INTERNAL CAROTID LEFT Left 03/12/2022 BREAST BIOPSY Left 2002 benign BREAST LUMPECTOMY Right 2015 Invasive ductal carcinoma COLONOSCOPY 03/06/2020 CYST REMOVAL ENDOMETRIAL ABLATION 02/2007 EYE SURGERY HYSTEROSCOPY PORT PLACEMENT CHEST >5 YEARS N/A 01/17/2015 PORT REMOVAL N/A 04/10/2015 RHINOPLASTY 1985 THYROIDECTOMY, PARTIAL Left 1998 Dr. Demetris Aguilar TONSILLECTOMY 1983 TUBAL LIGATION 02/2007 No medications prior to admission. Allergies Allergen Reactions Adhesive Hives Paper tape OK Cyclizine Other (See comments) and Hallucinations Marezine about 1981 Reaction: Urinary retention Social History Tobacco Use Smoking status: Never Passive exposure: Never Smokeless tobacco: Never Substance and Sexual Activity Drug use: Yes Types: Alcohol Sexual activity: Defer Partners: Male control/protection: Post-menopausal, Tubal Ligation Alcohol Use: Not At Risk Frequency of Alcohol Consumption: Monthly or less Average Number of Drinks: 1 or 2 Frequency of Binge Drinking: Never Family History Problem Relation Age of Onset [...] Hyperthermia Neg Hx Pseudochol deficiency Neg Hx Review of Systems: Review of systems per HPI and otherwise all other systems are negative Objective Vitals: Arrival Vitals [06/16/22 0900] Temp 36.2 ??C (97.2 ??F) Pulse 61 Resp 15 BP 124/84 SpO2 98 % Temp src Temporal Heart Rate Source Monitor Patient Position HOB 30 degrees BP Location Left arm FiO2 (%) 24hr Min/Max: Pulse Min: 65 Max: 79 BP Min: 119/81 Max: 127/82 Resp Min: 12 Max: 17 SpO2 Min: 97 % Max: 98 % Most Recent : Vitals: 06/17/22 0900 BP: 127/82 Pulse: 79 Resp: 17 Temp: SpO2: 98% I/O last 2 completed shifts: In: 1300 [IV Piggyback:1300] Out: 2320 [Urine:2300; Blood:20] I/O this shift: In: 1300 [IV Piggyback:1300] Out: 2320 [Urine:2300; Blood:20] Physical exam: Alert, awake and well-oriented to time, person and place. No cranial nerve deficits. No focal neurological deficits. Lab/Radiology/Diagnostic Review: No recent results to review Assessment /Plan Active Problems: No Active Problems: There are no active problems currently on the Problem List. Please update the Problem List and refresh. ULATING OPERATOR documented in this encounter Miscellaneous Notes * Plan of Care - Ariane Dove, RN - 06/17/2022 6:58 AM CST Goals: Clinical Goals for the Shift: pain management; monitor vital signs and lab values; maintain neurological stauts' Summary: Problem: Health Behavior: Goal: Understanding of discharge needs will improve Outcome: Progressing Problem: Lack of Knowledge: Goal: Ability to develop a pain control plan will improve Outcome: Progressing Goal: Ability to identify pain intensity on a pain scale and rate it consistently will improve Outcome: Progressing Goal: Ability to notify healthcare provider of pain before it becomes unmanageable or unbearable will improve Outcome: Progressing Problem: Medication: Goal: Satisfaction with pain management regimen will improve Outcome: Progressing Problem: Sensory: Goal: Ability to identify factors that increase the pain will improve Outcome: Progressing Goal: Pain level will decrease Outcome: Progressing ULATING OPERATOR documented in this encounter Plan of Treatment Not on file documented as of this encounter Procedures Procedure Name Priority Date/Time Associated Diagnosis Comments COVID-19 CORONAVIRUS RNA Routine 06/16/2022 1:32 PM COAGULATING OPERATOR IR PERMANENT OCCLUSION OR EMBOLIZATION PERCUTANEOUS PRESS [employer]ENDER [employer] Schedule Routine, Read Routine (OP Routine) 06/16/2022 12:59 PM COAGULATING OPERATOR Cerebral aneurysm, nonruptured POCT ACTIVATED CLOTTING TIME, LOW RANGE Routine 06/16/2022 11:21 AM COAGULATING OPERATOR VERIFY NOW CLOPIDOGREL Routine 06/16/2022 10:02 AM COAGULATING OPERATOR documented in this encounter Results * COVID-19 Coronavirus RNA Nasopharyngeal (06/16/2022 1:32 PM COAGULATING OPERATOR) COVID-19 RNA Negative Negative [facility] Nasopharyngeal 06/16/2022 1: 32 PM COAGULATING OPERATOR 06/16/2022 2:52 PM COAGULATING OPERATOR Narrative KATHY ABEBE - 06/16/2022 5:49 PM COAGULATING OPERATOR Is the patient experiencing any symptoms consistent with COVID (eg. Fever, cough, shortness of breath)?->No What is the reason for testing?->Bed placement or semi-private room (Rapid) ??Interpretive data: Synonyms for this test include: PCR and NAAT . ??This test is performed using the Audanika Xpert Xpress plus assay. This is a real-time RT-PCR test intended for the qualitative detection of nucleic acid from the SARS-CoV-2. This assay has been reviewed by the FDA for Emergency Use Authorization (EUA). The performance characteristics have been verified by the performing laboratory. Results must be considered in the clinical context and a negative result does not rule out infection. Interpretive data last revised September 11, 2021. ??Interpretive data: Synonyms for this test include: PCR and NAAT . ??This test is performed using the Audanika Xpert Xpress plus assay. This is a real-time RT-PCR test intended for the qualitative detection of nucleic acid from the SARS-CoV-2. This assay has been reviewed by the FDA for Emergency Use Authorization (EUA). The performance characteristics have been verified by the performing laboratory. Results must be considered in the clinical context and a negative result does not rule out infection. Interpretive data last revised September 11, 2021. us Abdiaziz Moss MD LAB MICROBIOLOGY - GENERAL OR DERABLES Final Result [facility] Department [place] [address] * IR Permanent Occlusion or Embolization PRESS TENDER [employer] (06/16/2022 12:59 PM COAGULATING OPERATOR) Anatomical Region Laterality Modality Radio Fluoroscop y 06/16/2022 9:48 PM COAGULATING OPERATOR Impressions 06/17/2022 7:45 AM COAGULATING OPERATOR 1. Initial angiography demonstrated a wide necked Anterior Communicating artery aneurysm measuring approximately [5.4 mm x 3.3 mm] and projects superiorly and to the right side. 2. Successful endovascular placement of an intra-saccular Web device measuring [5 mm x 3 mm] in the aneurysm with appropriate stasis of contrast in the aneurysm dome. 3. Final angiography demonstrated demonstrated satisfactory device position in the aneurysm, flow restriction in the aneurysm dome, and brisk antegrade flow through the A2 divisions with no distal thromboembolic complications. 4. The LVIS stent is identified in the cervical segment of the left internal carotid artery with residual filling of the pseudoaneurysm measuring [3.6 mm x 2.6 mm] in the distal left ICA. PLAN: 1. Strict bed rest and Right leg straight for 2 hours. 2. Admit overnight for observation. 3. Continue with Aspirin 325 mg and Brilinta 60 mg b.d x 6 months 4. Anticipate discharge tomorrow. These results were discussed with the patient and the Neurosurgical team after the conclusion of the procedure. Dictated by: CHICO Aparicio The radiology attending physician has personally reviewed this study, and had reviewed and/or edited this written report and agrees with it. Electronically signed by: Abdiaziz Moss M.D. 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 ??She is currently on Aspirin 325 mg and Brilinta 60 mg b.d. PRU 129. Patient presents today for diagnostic cerebral angiogram and WEB embolization of the anterior communicating artery aneurysm. PROCEDURE: 1. ??Transarterial embolization, Central Nervous system: Woven Endo bridge (WEB) embolization of Anterior Communicating artery aneurysm. 2. ??Cerebral angiography: Right Common Carotid artery, Left Common Carotid artery, Left Internal Carotid artery and Right Common Femoral artery injections. 3. ??3D reconstructions. 4. ??Aide CT of the head with contrast. 5. ??Ultrasound-guided vascular access. 6. ??Hemostatic device placement. ATTENDING SURGEON: Abdiaziz Moss MD. He was present for the entire procedure and interpreted images. ASSISTING SURGEON(S): CHICO Aparicio. All actively participated in catheter manipulation and were present in the room for the entire procedure. ANESTHESIA: General endotracheal anesthesia was administered under the supervision of the attending anesthesiologist. Pre-, intra-, and post-anesthesia monitoring records are available in the chart. MEDICATIONS: IV Heparin 5000 units MATERIALS: 3 J wire, 0.038 x 180 cm 6-Jamaican Cook Shuttle, 0.087 x 80 cm 5-Jamaican Cordis vertebral catheter, 0.042 x 100 cm Terumo Caldwell wire angle tip, 0.035 x 150 cm 5-Jamaican Susana Ex intracranial support catheter, 115 cm Synchro select standard microwire, 0.014'' x 215 cm 1.3-Jamaican Via microcatheter, 0.0175 x 154 cm WDC-2 Web Detachment Controller Web SL 5 mm x 3 mm 6-Jamaican Angio-Seal closure device. CONTRAST: Visipaque 320 125 mL ESTIMATED BLOOD LOSS: <30 mL TECHNIQUE: Prior to the procedure, the technical aspects of the procedure, as well as benefits, potential risks and alternate options, were explained to the patient in person. Specifically, the risks of cerebral infarction, hemorrhage, weakness, paralysis, sensory changes, vision decline/blindness, cranial nerve palsy, facial pain, anaphylaxis, renal failure, access site hematoma, arterial dissection, arterial pseudoaneurysm, arteriovenous fistula were discussed. Informed consent was obtained. After informed consent was obtained, the patient was brought to the angiography suite. General anesthesia was provided by the Department of Anesthesiology for the duration of the case. The patient was prepared and draped in the standard sterile fashion. The femoral head was localized by fluoroscopy. The right femoral artery punctured using a single-wall needle under real-time ultrasound guidance. Ultrasound images demonstrated a patent vessel and were stored to PACS. A 6 Fr 80cm Shuttle sheath was inserted over a 3 mm J wire and connected to a regulated pressurized infusion of heparinized saline. The shuttle sheath was advanced into the descending thoracic aorta under fluoroscopic guidance. A coaxial assembly of 5 Fr vertebral catheter and glidewire were used to select the right common carotid artery and left common carotid artery. Contrast was injected for imaging in multiple projections. Images of the right common artery and left common carotid artery injections were obtained for interpretation, centered over the head and neck with AP, lateral, and oblique views. Under roadmap guidance, the shuttle sheath was initially positioned just proximal to the LVIS stent in the left internal carotid artery. Initial angiography demonstrated a wide necked Anterior Communicating artery aneurysm measuring approximately 5.4 mm x 3.3 mm and projects superiorly and to the right side. 3D ROTATIONAL ANGIOGRAPHY OF THE LEFT INTERNAL CAROTID ARTERY: Rotational angiography was also performed from the shuttle catheter in the left internal carotid artery for better delineation of the anterior communicating artery aneurysm. Three-dimensional angiographic images were processed on an independent workstation, and volume-rendered three-dimensional images were produced and reviewed by the attending physician. We then elected to proceed with endovascular Web Embolization treatment of the anterior communicating artery aneurysm as originally planned. A baseline ACT was obtained. The patient was administered 5000 units of intravenous heparin. Following the diagnostic angiogram, a working projection was obtained to best demonstrate the aneurysm neck. A coaxial assembly comprising a Via 17 154 cm, microcatheter, and Synchro-2 standard microwire was prepared in the standard fashion through a series of rotating hemostatic valves connected to a pressurized infusion of heparinized saline. This assembly was gently advanced through the Susana EX catheter and the microcatheter carefully advanced into the anterior communicating artery aneurysm. The microwire was removed. The WEB SL device was inserted through the microcatheter and carefully advanced to the tip of the microcatheter. Under continuous fluoroscopic guidance the WEB device was carefully deployed into the proximal sac. ??Radiographs were obtained for confirming device location. Repeat angiogram was performed of the left internal carotid artery with the device in position before detachment. The angiogram revealed contrast stasis in the aneurysm and adequate position of the device with minimal encroachment of the bilateral A2 segments. A delayed angiogram after device placement confirmed a patent bilateral A2 segments of anterior cerebral artery. The device was detached and the delivery wire was carefully removed. DynaCT of the head during injection of the left internal carotid artery was performed and cross-sectional images were generated and viewed by the attending neuroradiologist on a separate workstation confirming adequate position of the Web device. Final angiography demonstrated demonstrated satisfactory device position in the aneurysm, flow restriction in the aneurysm dome, and brisk antegrade flow through the A2 divisions with no distal thromboembolic complications. The catheters was then removed. The sheath was removed. Patent hemostasis was achieved by placement of a 6-Jamaican Angio-Seal closure device. There were no immediate complications related to the procedure. The patient was transported to the post anesthesia care unit in unchanged neurological condition. FINDINGS: RIGHT COMMON CAROTID ARTERY, CERVICAL: The surpass flow diverting stent is identified in the cervical segment of the right internal carotid artery with complete resolution of the previously identified pseudoaneurysm in the distal right ICA. The common carotid bifurcation is at the level of C3/C4. There is normal opacification of right cervical ECA branches. RIGHT COMMON CAROTID ARTERY, CEREBRAL: There is no evidence of aneurysm, focal stenosis, or early draining vein. There is a hypoplastic right A1 segment of anterior cerebral artery. The posterior communicating artery cannot be identified. There is normal opacification of the right cranial ECA branches. LEFT COMMON CAROTID ARTERY, CERVICAL: The LVIS stent is identified in the cervical segment of the left internal carotid artery with residual filling of the pseudoaneurysm measuring [3.6 mm x 2.6 mm] in the distal left ICA. There is normal opacification of left cervical ECA branches. LEFT INTERNAL CAROTID ARTERY, CEREBRAL: There is evidence of a wide necked anterior communicating artery aneurysm measuring approximately 5.4 mm x 3.3 mm and projects superiorly and to the right side. There is left to right cross flow through the anterior communicating artery. A left posterior communicating artery infundibulum is identified. 3D ROTATIONAL ANGIOGRAPHY OF THE LEFT INTERNAL CAROTID ARTERY: 3D Rotational angiography with volume-rendered three-dimensional reconstruction on an independent workstation demonstrated wide necked anterior commuting artery aneurysm. RIGHT COMMON FEMORAL ARTERY, PELVIC: Through the shuttle catheter, angiography was performed over the right groin. Pelvic view of the right common femoral artery in the [place] and oblique projections demonstrates a normal right common femoral artery, superficial femoral artery and deep femoral artery. Sheath is located above the bifurcation. There is no significant significant stenosis, dissection or pseudoaneurysm. COMPLICATIONS There were no immediate complications. 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 She is currently on Aspirin 325 mg and Brilinta 60 mg b.d. PRU 129. Patient presents today for diagnostic cerebral angiogram and WEB embolization of the anterior communicating artery aneurysm. PROCEDURE: 1. Transarterial embolization, Central Nervous system: Woven Endo bridge (WEB) embolization of Anterior Communicating artery aneurysm. 2. Cerebral angiography: Right Common Carotid artery, Left Common Carotid artery, Left Internal Carotid artery and Right Common Femoral artery injections. 3. 3D reconstructions. 4. Aide CT of the head with contrast. 5. Ultrasound-guided vascular access. 6. Hemostatic device placement. ATTENDING SURGEON: Abdiaziz Moss MD. He was present for the entire procedure and interpreted images. ASSISTING SURGEON(S): CHICO Aparicio. All actively participated in catheter manipulation and were present in the room for the entire procedure. ANESTHESIA: General endotracheal anesthesia was administered under the supervision of the attending anesthesiologist. Pre-, intra-, and post-anesthesia monitoring records are available in the chart. MEDICATIONS: IV Heparin 5000 units MATERIALS: 3 J wire, 0.038 x 180 cm 6-Jamaican Cook Shuttle, 0.087 x 80 cm 5-Jamaican Cordis vertebral catheter, 0.042 x 100 cm Terumo Caldwell wire angle tip, 0.035 x 150 cm 5-Jamaican Susana Ex intracranial support catheter, 115 cm Synchro select standard microwire, 0.014'' x 215 cm 1.3-Jamaican Via microcatheter, 0.0175 x 154 cm WDC-2 Web Detachment Controller Web SL 5 mm x 3 mm 6-Jamaican Angio-Seal closure device. CONTRAST: Visipaque 320 125 mL ESTIMATED BLOOD LOSS: <30 mL TECHNIQUE: Prior to the procedure, the technical aspects of the procedure, as well as benefits, potential risks and alternate options, were explained to the patient in person. Specifically, the risks of cerebral infarction, hemorrhage, weakness, paralysis, sensory changes, vision decline/blindness, cranial nerve palsy, facial pain, anaphylaxis, renal failure, access site hematoma, arterial dissection, arterial pseudoaneurysm, arteriovenous fistula were discussed. Informed consent was obtained. After informed consent was obtained, the patient was brought to the angiography suite. General anesthesia was provided by the Department of Anesthesiology for the duration of the case. The patient was prepared and draped in the standard sterile fashion. The femoral head was localized by fluoroscopy. The right femoral artery punctured using a single-wall needle under real-time ultrasound guidance. Ultrasound images demonstrated a patent vessel and were stored to PACS. A 6 Fr 80cm Shuttle sheath was inserted over a 3 mm J wire and connected to a regulated pressurized infusion of heparinized saline. The shuttle sheath was advanced into the descending thoracic aorta under fluoroscopic guidance. A coaxial assembly of 5 Fr vertebral catheter and glidewire were used to select the right common carotid artery and left common carotid artery. Contrast was injected for imaging in multiple projections. Images of the right common artery and left common carotid artery injections were obtained for interpretation, centered over the head and neck with AP, lateral, and oblique views. Under roadmap guidance, the shuttle sheath was initially positioned just proximal to the LVIS stent in the left internal carotid artery. Initial angiography demonstrated a wide necked Anterior Communicating artery aneurysm measuring approximately 5.4 mm x 3.3 mm and projects superiorly and to the right side. 3D ROTATIONAL ANGIOGRAPHY OF THE LEFT INTERNAL CAROTID ARTERY: Rotational angiography was also performed from the shuttle catheter in the left internal carotid artery for better delineation of the anterior communicating artery aneurysm. Three-dimensional angiographic images were processed on an independent workstation, and volume-rendered three-dimensional images were produced and reviewed by the attending physician. We then elected to proceed with endovascular Web Embolization treatment of the anterior communicating artery aneurysm as originally planned. A baseline ACT was obtained. The patient was administered 5000 units of intravenous heparin. Following the diagnostic angiogram, a working projection was obtained to best demonstrate the aneurysm neck. A coaxial assembly comprising a Via 17 154 cm, microcatheter, and Synchro-2 standard microwire was prepared in the standard fashion through a series of rotating hemostatic valves connected to a pressurized infusion of heparinized saline. This assembly was gently advanced through the Susana EX catheter and the microcatheter carefully advanced into the anterior communicating artery aneurysm. The microwire was removed. The WEB SL device was inserted through the microcatheter and carefully advanced to the tip of the microcatheter. Under continuous fluoroscopic guidance the WEB device was carefully deployed into the proximal sac. Radiographs were obtained for confirming device location. Repeat angiogram was performed of the left internal carotid artery with the device in position before detachment. The angiogram revealed contrast stasis in the aneurysm and adequate position of the device with minimal encroachment of the bilateral A2 segments. A delayed angiogram after device placement confirmed a patent bilateral A2 segments of anterior cerebral artery. The device was detached and the delivery wire was carefully removed. DynaCT of the head during injection of the left internal carotid artery was performed and cross-sectional images were generated and viewed by the attending neuroradiologist on a separate workstation confirming adequate position of the Web device. Final angiography demonstrated demonstrated satisfactory device position in the aneurysm, flow restriction in the aneurysm dome, and brisk antegrade flow through the A2 divisions with no distal thromboembolic complications. The catheters was then removed. The sheath was removed. Patent hemostasis was achieved by placement of a 6-Jamaican Angio-Seal closure device. There were no immediate complications related to the procedure. The patient was transported to the post anesthesia care unit in unchanged neurological condition. FINDINGS: RIGHT COMMON CAROTID ARTERY, CERVICAL: The surpass flow diverting stent is identified in the cervical segment of the right internal carotid artery with complete resolution of the previously identified pseudoaneurysm in the distal right ICA. The common carotid bifurcation is at the level of C3/C4. There is normal opacification of right cervical ECA branches. RIGHT COMMON CAROTID ARTERY, CEREBRAL: There is no evidence of aneurysm, focal stenosis, or early draining vein. There is a hypoplastic right A1 segment of anterior cerebral artery. The posterior communicating artery cannot be identified. There is normal opacification of the right cranial ECA branches. LEFT COMMON CAROTID ARTERY, CERVICAL: The LVIS stent is identified in the cervical segment of the left internal carotid artery with residual filling of the pseudoaneurysm measuring [3.6 mm x 2.6 mm] in the distal left ICA. There is normal opacification of left cervical ECA branches. LEFT INTERNAL CAROTID ARTERY, CEREBRAL: There is evidence of a wide necked anterior communicating artery aneurysm measuring approximately 5.4 mm x 3.3 mm and projects superiorly and to the right side. There is left to right cross flow through the anterior communicating artery. A left posterior communicating artery infundibulum is identified. 3D ROTATIONAL ANGIOGRAPHY OF THE LEFT INTERNAL CAROTID ARTERY: 3D Rotational angiography with volume-rendered three-dimensional reconstruction on an independent workstation demonstrated wide necked anterior commuting artery aneurysm. RIGHT COMMON FEMORAL ARTERY, PELVIC: Through the shuttle catheter, angiography was performed over the right groin. Pelvic view of the right common femoral artery in the [place] and oblique projections demonstrates a normal right common femoral artery, superficial femoral artery and deep femoral artery. Sheath is located above the bifurcation. There is no significant significant stenosis, dissection or pseudoaneurysm. COMPLICATIONS There were no immediate complications. IMPRESSION: 1. Initial angiography demonstrated a wide necked Anterior Communicating artery aneurysm measuring approximately [5.4 mm x 3.3 mm] and projects superiorly and to the right side. 2. Successful endovascular placement of an intra-saccular Web device measuring [5 mm x 3 mm] in the aneurysm with appropriate stasis of contrast in the aneurysm dome. 3. Final angiography demonstrated demonstrated satisfactory device position in the aneurysm, flow restriction in the aneurysm dome, and brisk antegrade flow through the A2 divisions with no distal thromboembolic complications. 4. The LVIS stent is identified in the cervical segment of the left internal carotid artery with residual filling of the pseudoaneurysm measuring [3.6 mm x 2.6 mm] in the distal left ICA. PLAN: 1. Strict bed rest and Right leg straight for 2 hours. 2. Admit overnight for observation. 3. Continue with Aspirin 325 mg and Brilinta 60 mg b.d x 6 months 4. Anticipate discharge tomorrow. These results were discussed with the patient and the Neurosurgical team after the conclusion of the procedure. Dictated by: CHICO Aparicio The radiology attending physician has personally reviewed this study, and had reviewed and/or edited this written report and agrees with it. Electronically signed by: Abdiaziz Moss M.D. Abdiaziz Moss MD IMG IR PROCEDURES Final Resul t * (ABNORMAL) POCT Activated clotting time, low range (06/16/2022 11:21 AM COAGULATING OPERATOR) ACT 259(H) 123 - 168 sec [facility] Blood 06/16/2022 11:2 1 AM COAGULATING OPERATOR 06/16/2022 11:21 AM COAGULATING OPERATOR Abdiaziz Moss MD LAB POCT ORDERABLES - DEVICE Final Result [facility] [place] [address] * VerifyNow clopidogrel (06/16/2022 10:02 AM COAGULATING OPERATOR) [facility] Signature VerifyNow clopidogrel 129 PRU [facility] Comment: Interpretive Data Reference interval from adults not taking Plavix is 169-356 PRU. Output is reported in Plavix reaction units (PRU). A lower PRU indicates a more complete inhibition of P2Y12 ADP receptor by drugs such as clopidogrel or prasugrel. There is no consensus regarding a cut-off value for PRU when assessing patients' sensitivity to ADP P2Y12 receptor inhibitors. Clinicians should use this information based on their interpretation of currently available evidence to individualize patient management decisions. Conditions that may produce falsely low PRU results include anemia (Hct <29%) and thrombocytopenia (platelet count <90,000/mcL). Platelet responsiveness to Plavix should not be performed within 48 hours of treatment with GPIIbIIIa inhibitors etifibatide (Integrilin) or tirofiban (Aggrastat) or within 2 weeks of treatment with abciximab (Reopro). Current interpretive data was last revised on 2017. Blood 06/16/2022 10:0 2 AM COAGULATING OPERATOR 06/16/2022 10:29 AM COAGULATING OPERATOR Charles Garcia MD LAB BLOOD ORDERABLES Fin al Result [facility] [place] [address] documented in this encounter Visit Diagnoses Diagnosis Cerebral aneurysm, nonruptured documented in this encounter Administered Medications Inactive Administered Medications - up to 3 most recent administrations Medication Order MAR Action Action Date Dose Rate Site acetaminophen (TYLENOL) tablet 650 mg 650 mg, oral, Every 6 hours PRN, 1st line for pain, Starting on Thu06/16/22 at 1344 Given 06/16/2022 4:08 PM COAGULATING OPERATOR 650 mg aspirin enteric coated tablet 81 mg 81 mg, oral, Daily, First dose on Thu06/16/22 at 1430, Do not crush, chew, cut, dissolve, open or otherwise manipulate tablet/capsule. Given 06/17/2022 8:40 AM COAGULATING OPERATOR 81 mg atenoloL (TENORMIN) tablet 25 mg 25 mg, oral, Daily, First dose on Thu06/16/22 at 1430 Given 06/17/2022 8:40 AM COAGULATING OPERATOR 25 mg Carrier Fluids for Secondary Infusion - 0.9% Sodium Chloride 30 mL, intravenous, As needed, For priming tubing and/or flushing, Starting on Thu06/16/22 at 0845, Pre-Op, 0-250 ml/hr to flush line after IV infusions when no maintenance IV ordered. Infuse 30mL at the same rate as the secondary infusion. Run as primary IV, not intended for KVO. Carrier Fluids for Secondary Infusion - 0.9% Sodium Chloride 30 mL, intravenous, As needed, For priming tubing and/or flushing, Starting on Thu06/16/22 at 0846, Pre-Procedure (IR), 0-250 ml/hr to flush line after IV infusions when no maintenance IV ordered. Infuse 30mL at the same rate as the secondary infusion. Run as primary IV, not intended for KVO. FLUoxetine (PROzac) capsule 20 mg 20 mg, oral, Every morning, First dose on Thu06/16/22 at 1430, Indications: depression, hot flashesIndications:depress ion,hot flashes Given 06/17/2022 8:39 AM COAGULATING OPERATOR 20 mg folic acid (FOLVITE) tablet 2,000 mcg 2,000 mcg, oral, Every morning, First dose on Thu06/16/22 at 1430 Given 06/17/2022 8:39 AM COAGULATING OPERATOR 2,000 mcg heparin in 0.9% sodium chloride 1,000 units/500 mL (2 unit/mL) infusion (premix) Continuous PRN, Starting on Thu06/16/22 at 1056, Intra-Op New Bag 06/16/2022 10:56 AM COAGULATING OPERATOR 2 Units/hr 1 mL/hr hydroCHLOROthiazide (HYDRODIURIL) tablet 12.5 mg 12.5 mg, oral, Daily, First dose on Thu06/16/22 at 1430 Given 06/17/2022 8:40 AM COAGULATING OPERATOR 12.5 mg hydrOXYchloroQUINE (PLAQUENIL) tablet 200 mg 200 mg, oral, Daily, First dose on Thu06/16/22 at 1430, Do not crush, break, or open. Administer with food to decrease GI adverse effects if tolerating a diet. Oral liquid is preferred for per tube administration. Given 06/17/2022 8:40 AM COAGULATING OPERATOR 200 mg iodixanoL (VISIPAQUE) 320 mg iodine/mL injection As needed, Starting on Thu06/16/22 at 1224, Intra-Op Given 06/16/2022 12:24 PM COAGULATING OPERATOR 125 mL Other (Comment) lisinopriL (PRINIVIL,ZESTRIL) tablet 20 mg 20 mg, oral, Daily, First dose on Thu06/16/22 at 1430 Given 06/17/2022 8:39 AM COAGULATING OPERATOR 20 mg ondansetron (ZOFRAN) injection 4 mg 4 mg, intravenous, Administer over 2 Minutes, Once as needed, nausea, vomiting, Starting on Thu06/16/22 at 1245, For 1 dose, Phase I, Proceed to prochlorperazine if ondansetron has been given within the last 6 hours. Given 06/16/2022 2:13 PM COAGULATING OPERATOR 4 mg sodium chloride 0.9% flush 0.5-20 mL 0.5-20 mL, intra-catheter, As needed, line care, Starting on Thu06/16/22 at 0845, Pre-Op, Flush volume based on line type and size. Flush before and after each use. sodium chloride 0.9% flush 0.5-20 mL 0.5-20 mL, intra-catheter, Every 8 hours scheduled, First dose on Thu06/16/22 at 0930, Pre-Procedure (IR), Flush volume based on line type and size. Given 06/16/2022 9:29 PM COAGULATING OPERATOR 10 mL sodium chloride 0.9% flush 0.5-20 mL 0.5-20 mL, intra-catheter, As needed, line care, Starting on Thu06/16/22 at 0846, Pre-Procedure (IR), Flush volume based on line type and size. Flush before and after each use. sodium chloride 0.9% infusion 30 mL/hr, intravenous, Continuous, Starting on Thu06/16/22 at 0930, Pre-Op sodium chloride 0.9% infusion 30 mL/hr, intravenous, Continuous, Starting on Thu06/16/22 at 0930, Pre-Procedure (IR), Please discontinue saline infusion at the end of the IR procedure sulfaSALAzine EN (AZULFIDINE EN) extended release tablet 1,000 mg 1,000 mg, oral, 2 times daily, First dose on Thu06/16/22 at 1430, Do not crush, chew, cut, dissolve, open or otherwise manipulate tablet/capsule. Given 06/17/2022 8:40 AM COAGULATING OPERATOR 1,000 mg Given 06/16/2022 9:28 PM COAGULATING OPERATOR 1,000 mg ticagrelor (BRILINTA) tablet 60 mg 60 mg, oral, 2 times daily, First dose on Thu06/16/22 at 1430 Given 06/17/2022 8:40 AM COAGULATING OPERATOR 60 mg Given 06/16/2022 9:28 PM COAGULATING OPERATOR 60 mg traMADoL (ULTRAM) tablet 50 mg 50 mg, oral, Every 6 hours PRN, 2nd line for pain, Starting on Thu06/16/22 at 1349, Indications: PainIndications:Pain Given 06/16/2022 9:28 PM COAGULATING OPERATOR 50 mg documented in this encounter Discontinued Medications Medication Sig Discontinue Reason Start Date End Da te traMADoL (ULTRAM) 50 mg tabletIndications:Pain Take 50 mg by mouth every 6 (six) hours as needed for pain Stop Taking at Discharge 03/17/2022 06/17/2022 documented as of this encounter Active and Recently Administered Medications Times are shown in COAGULATING OPERATOR. Scheduled Medication Order 06/15/2022 06/16/2022 06/17/2022 aspirin enteric coated tablet 81 mg 81 mg, oral, Daily, First dose on Thu06/16/22 at 1430, Do not crush, chew, cut, dissolve, open or otherwise manipulate tablet/capsule. 1430 (Not Given - Provider: Jose Oro RN - Reason: Other - Comment: Patient states she took this morning) 0840 (Given - Provider: Fatimah Alicea RN) atenoloL (TENORMIN) tablet 25 mg 25 mg, oral, Daily, First dose on Thu06/16/22 at 1430 1430 (Not Given - Provider: Jose Oro RN - Reason: Other - Comment: Patient states she took this morning) 0840 (Given - Provider: Fatimah Alicea RN) FLUoxetine (PROzac) capsule 20 mg 20 mg, oral, Every morning, First dose on Thu06/16/22 at 1430, Indications: depression, hot flashes 1430 (Not Given - Provider: Jose Oro RN - Reason: Other - Comment: Patient states she took this morning) 0839 (Given - Provider: Fatimah Alicea RN) folic acid (FOLVITE) tablet 2,000 mcg 2,000 mcg, oral, Every morning, First dose on Thu06/16/22 at 1430 1430 (Not Given - Provider: Jose Oro RN - Reason: Other - Comment: Patient states she took this morning) 0839 (Given - Provider: Fatimah Alicea RN) hydroCHLOROthiazide (HYDRODIURIL) tablet 12.5 mg 12.5 mg, oral, Daily, First dose on Thu06/16/22 at 1430 1430 (Not Given - Provider: Jose Oro RN - Reason: Other - Comment: Patient states she took this morning) 0840 (Given - Provider: Fatimah Alicea RN) hydrOXYchloroQUINE (PLAQUENIL) tablet 200 mg 200 mg, oral, Daily, First dose on Thu06/16/22 at 1430, Do not crush, break, or open. Administer with food to decrease GI adverse effects if tolerating a diet. Oral liquid is preferred for per tube administration. 1430 (Not Given - Provider: Jose Oro RN - Reason: Other - Comment: Patient states she took this morning) 0840 (Given - Provider: Fatimah Alicea RN) lisinopriL (PRINIVIL,ZESTRIL) tablet 20 mg 20 mg, oral, Daily, First dose on Thu06/16/22 at 1430 1430 (Not Given - Provider: Jose Oro RN - Reason: Other - Comment: Patient states she took this morning) 0839 (Given - Provider: Fatimah Alicea RN) sodium chloride 0.9% flush 0.5-20 mL 0.5-20 mL, intra-catheter, Every 8 hours scheduled, First dose on Thu06/16/22 at 0930, Pre-Procedure (IR), Flush volume based on line type and size. 0930 (Due)1400 (Not Given - Provider: Jose Oro RN - Reason: Other)2129 (Given - Provider: Ariane Dove RN) 0620 (Not Given - Provider: Ariane Dove RN - Reason: Order parameters not met) sulfaSALAzine EN (AZULFIDINE EN) extended release tablet 1,000 mg 1,000 mg, oral, 2 times daily, First dose on Thu06/16/22 at 1430, Do not crush, chew, cut, dissolve, open or otherwise manipulate tablet/capsule. 1430 (Not Given - Provider: Jose Oro RN - Reason: Other - Comment: Patient states she took this morning)2127 (Given - Provider: Ariane Dove RN) 0840 (Given - Provider: Fatimah Alicea RN) ticagrelor (BRILINTA) tablet 60 mg 60 mg, oral, 2 times daily, First dose on Thu06/16/22 at 1430 1430 (Not Given - Provider: Jose Oro RN - Reason: Other - Comment: Patient states she took this morning)2127 (Given - Provider: Ariane Dove RN) 0840 (Given - Provider: Fatimah Alicea RN) Continuous Medication Order 06/15/2022 06/16/2022 06/17/2022 sodium chloride 0.9% infusion 30 mL/hr, intravenous, Continuous, Starting on Thu06/16/22 at 0930, Pre-Op 2128 (Not Given - Provider: Ariane Dove RN - Reason: Other) sodium chloride 0.9% infusion 30 mL/hr, intravenous, Continuous, Starting on Thu06/16/22 at 0930, Pre-Procedure (IR), Please discontinue saline infusion at the end of the IR procedure 0852 (Due)2116 (Not Given - Provider: Ariane Dove RN - Reason: Order parameters not met) PRN Medication Order 06/15/2022 06/16/2022 06/17/2022 acetaminophen (TYLENOL) tablet 650 mg 650 mg, oral, Every 6 hours PRN, 1st line for pain, Starting on Thu06/16/22 at 1344 1608 (Given - Provider: Jose Oro RN) Carrier Fluids for Secondary Infusion - 0.9% Sodium Chloride 30 mL, intravenous, As needed, For priming tubing and/or flushing, Starting on Thu06/16/22 at 0845, Pre-Op, 0-250 ml/hr to flush line after IV infusions when no maintenance IV ordered. Infuse 30mL at the same rate as the secondary infusion. Run as primary IV, not intended for KVO. Carrier Fluids for Secondary Infusion - 0.9% Sodium Chloride 30 mL, intravenous, As needed, For priming tubing and/or flushing, Starting on Thu06/16/22 at 0846, Pre-Procedure (IR), 0-250 ml/hr to flush line after IV infusions when no maintenance IV ordered. Infuse 30mL at the same rate as the secondary infusion. Run as primary IV, not intended for KVO. diphenhydrAMINE (BENADRYL) injection 12.5 mg 12.5 mg, intravenous, Administer over 1 Minutes, Every 15 min PRN, itching, Starting on Thu06/16/22 at 1245, For 2 doses, Phase I, Max cumulative dose 50 mg., Indications: Itching heparin in 0.9% sodium chloride 1,000 units/500 mL (2 unit/mL) infusion (premix) (COMPLETED) Continuous PRN, Starting on Thu06/16/22 at 1056, Intra-Op 1056 (New Bag - Provider: Charles Garcia MD - Comment: rate controlled by at [facility].) HYDROmorphone (DILAUDID) injection 0.2 mg 0.2 mg, intravenous, Administer over 2 Minutes, Every 10 min PRN, 1st line for pain, Starting on Thu06/16/22 at 1245, Phase I, Switch to 2nd line analgesic order if pain is uncontrolled or increasing after 2 doses. Notify Anesthesiologist if total PACU dose reaches 2 mg and pain score 5/10 or more., Indications: Pain HYDROmorphone (DILAUDID) injection 0.4 mg 0.4 mg, intravenous, Administer over 2 Minutes, Every 10 min PRN, 2nd line for pain, Starting on Thu06/16/22 at 1245, Phase I, May administer 10 mintes after 2nd dose of 1st line analgesic agent for uncontrolled or increasing pain. Revert to 1st line dose if POSS of 3. Notify Anesthesiologist if total PACU dose reaches 2 mg and pain score 5/10 or more., Indications: Pain iodixanoL (VISIPAQUE) 320 mg iodine/mL injection (COMPLETED) As needed, Starting on Thu06/16/22 at 1224, Intra-Op 1224 (Given - Provider: Charles Garcia MD) naloxone (NARCAN) 0.4 mg/mL injection 0.04-0.4 mg 0.04-0.4 mg, intravenous, Once as needed, other, excessive sedation/respiratory depression, Starting on Thu06/16/22 at 1245, For 1 dose, Phase I, Dilute 0.4 mg with 9 mL NS (final concentration 0.04 mg/mL). For respiratory depression (respiratory rate less than 6), administer 0.4 mg IVP over 30 seconds. For excessive sedation administer 0.04 mg (1 mL) every 1 minute until desired level of alertness. For IV, administer over 30 seconds., Indications: Opioid Toxicity ondansetron (ZOFRAN) injection 4 mg (COMPLETED) 4 mg, intravenous, Administer over 2 Minutes, Once as needed, nausea, vomiting, Starting on Thu06/16/22 at 1245, For 1 dose, Phase I, Proceed to prochlorperazine if ondansetron has been given within the last 6 hours. 1413 (Given - Provider: Alma Rosa Mayfield, BRODIE) prochlorperazine (COMPAZINE) injection 5 mg 5 mg, intravenous, Administer over 2 Minutes, Once as needed, nausea, vomiting, Starting on Thu06/16/22 at 1245, For 1 dose, Phase I, If nausea/vomiting not relieved by ondansetron within 30 minutes or if ondansetron has been given within the last 6 hours. sodium chloride 0.9% flush 0.5-20 mL 0.5-20 mL, intra-catheter, As needed, line care, Starting on Thu06/16/22 at 0845, Pre-Op, Flush volume based on line type and size. Flush before and after each use. sodium chloride 0.9% flush 0.5-20 mL 0.5-20 mL, intra-catheter, As needed, line care, Starting on Thu06/16/22 at 0846, Pre-Procedure (IR), Flush volume based on line type and size. Flush before and after each use. traMADoL (ULTRAM) tablet 50 mg 50 mg, oral, Every 6 hours PRN, 2nd line for pain, Starting on Thu06/16/22 at 1349, Indications: Pain 8 (Given - Provider: Ariane Dove, RN) documented in this encounter Orders Medications Ordered That Elmo ht Not Have Been Administered Count Last Ordered Date First Ordered Date Carrier Fluids for Secondary Infusion - 0.9% Sodium Chloride 2 06/16/2022 diphenhydrAMINE (BENADRYL) i njection 12.5 mg 1 06/16/2022 HYDROmorphone (DILAUDID) injection 0.2 mg 1 06/16/2022 HYDROmorphone (DILAUDID) injection 0.4 mg 1 06/16/2022 naloxone (NARCAN) 0.4 mg/mL injection 0.04-0.4 mg 1 06/16/2022 prochlorperazine (COMPAZINE) injection 5 mg 1 06/16/2022 sodium chloride 0.9% flush 0.5-20 mL 2 09/2022 sodium chloride 0.9% infusion 2 06/16/2022 Nursing Count Last Ordered Date First Orde red Date NURSING COMMUNICATION 1 06/16/2022 Admission Count Last Ordered Date First Orde red Date ADMIT TO INPATIENT 1 06/16/2022 Discharge Count Last Ordered Date First Orde red Date DISCHARGE PATIENT 1 06/17/2022 documented in this encounter Care Teams Terminal Operations Supervisor Relationship Specialty Start Date End Date Sylvia Dawson PA [address] [place] [address] PCP - General Internal Medicine 01/05/20 Erica Rodrigues MD [address] [facility] [address] [place], [place] [id number] Radiation Oncologist Radiation Oncology 10/25/18 Gasper Kaba MD [address] [place] [address] Surgeon Surgical Oncology 10/25/18 Brandy Aguirre CNS [address] [place] [address] Nurse Practitioner Certified Clinical Nurse Specialist 10/25/18 Jo-Ann Morrow, PhD [address] [facility] [address] [place] [address] Nurse Practitioner Radiation Oncology 10/25/18 Christina Louis NP [address] [facility] [address] [facility] [address] [place], [place] [id number] Nurse Practitioner Medical Oncology 10/25/18 documented as of this encounter
--- OUTSIDE RECORDS SUMMARY | 2024-04-24 05:51 | XMS_ITS | Encounter Summary ---
Author Organization [facility] Address [address] [place] [address] Phone Care Team Providers Care Medical Esthetician Name Role Phone Erica Rodrigues MD Unavailable Gasper Kaba MD Unavailable Brandy Aguirre BRICK VENEER MAKER Unavailable [phone] Jo-Ann Morrow PhD Unavailable [phone] Christina Louis CLIN NURSE Unavailable [phone] Sylvia Dawson Primary Care Provider [phone] Encounter Details Date Type Department Care Team (Late st Contact Info) Description 04/18/2022 Telephone [facility] Neurosurgery [facility] [address] [place] [address] Lizzie Green, JENNI [address] [place] [address] Social History Tobacco Use Types Packs/Day Years [...] on file Legal Sex Female 3:42 AM TOE POUNDER Gender Identity Not on file Sexual Orientation [...] by mouth 2 (two) times a day 30 tablet 3 04/21/2022 05/02/2022 documented in this encounter Miscellaneous Notes * Telephone Encounter - Lizzie Green NP - 04/21/2022 3:32 PM TOE POUNDER Discussed the pt with Dr. Moss, we will transition the patient from plavix to brillinta. New RX sent, pt aware to stop plavix once she receives her brillinta. She will continue to keep me updated onher symptoms. Her LF headaches have shown improvement over the weekend. POUNDER * Telephone Encounter - Lizzie Green NP - 04/18/2022 5:20 PM TOE POUNDER Talked to the pt, her administrative assistant is not comfortable titrating medications due to her carotid dissections. Erratic Bps are most likely related to carotid dissections, but we need medications managedfor the pt to be normotensive. I will refer to our cardiology group. Pt reports loss of taste, this is a SE of plavix. I will discuss with Dr. Moss about transitioningher to brillinta to see if this improves. She also has LF headaches that we will continue to monitor. Pt will continue to track blood pressures at home. She was encouraged to call with any new/worsening symptoms, questions or concerns. POUNDER documented in this encounter Plan of Treatment Not on file documented as of this encounter Visit Diagnoses Not on filedocumented in this encounter Discontinued Medications Medication Sig Discontinue Reason Start Date End Da te clopidogreL (PLAVIX) 75 mg tablet Take 1 tablet (75 mg total) by mouth daily 04/11/2022 04/21/2022 documented as of this encounter Care Teams Medical Esthetician Relationship Specialty Start Date End Date ySlvia Dawson PA [address] [facility] [address] [place] [address] PCP - General Internal Medicine 01/05/20 Erica Rodrigues MD [address] [place] [address] Radiation Oncologist Radiation Oncology 10/25/18 Gasper Kaba MD [address] [place] [address] Surgeon Surgical Oncology 10/25/18 Brandy Aguirre, BRICK VENEER MAKER [address] [place] [address] Nurse Practitioner Certified Clinical Nurse Specialist 10/25/18 Jo-Ann Morrow, PhD [address] [place] [address] Nurse Practitioner Radiation Oncology 10/25/18 Christina Louis NP [address] [place] [address] Nurse Practitioner Medical Oncology 10/25/18 documented as of this encounter
--- OUTSIDE RECORDS SUMMARY | 2024-04-24 05:51 | XMS_ITS | Encounter Summary ---
Author Organization [facility] Address [address] [place] [address] Care Team Providers Care Dresser Tender Name Role Phone Erica Rodrigues MD Unavailable Gasper Kaba MD Unavailable [phone] Brandy Aguirre COMBINING MACHINE OPERATOR Unavailable [phone] Jo-Ann Morrow PhD Unavailable [phone] Christina Louis PERINATAL SPECIALIST Unavailable [phone] Sylvia Dawson Primary Care Provider [phone] Encounter Details Date Type Department Care Team (Late st Contact Info) Description 06/19/2022 Telephone [facility] Pulmonary [address] [place] [address] Douglas Acosta MD [address] [facility] [address] [address] Social History Tobacco Use Types Packs/Day Years [...] on file Legal Sex Female 3:42 AM [employer] HEAD INSPECTOR Gender Identity Not on file Sexual Orientation Not on file 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 Also change the ramp start pressure to 5 cm of water pressure. The patient's DME is [employer]. CLUB HEAD INSPECTOR documented in this encounter Plan of Treatment Not on file documented as of this encounter Visit Diagnoses Diagnosis Obstructive sleep apnea- Primary Obstructive sleep apnea (adult) (pediatric) documented in this encounter Orders General Supply Count Last Ordered Date First Or dered Date CPAP MACHINE WITH HEATED HUMIDIFIER 1 06/19 documented in this encounter Care Teams Dresser Tender Relationship Specialty Start Date End Date Sylvia Dawson PA [address] [facility] [address] [place] [address] PCP - General Internal Medicine 01/05/20 Erica Rodrigues MD [address] [facility] [address] [place] [address] Radiation Oncologist Radiation Oncology 10/25/18 Gasper Kaba MD [address] [facility] [address] [place] [address] Surgeon Surgical Oncology 10/25/18 Brandy Aguirre, CARINA [address] [facility] [address] [place] [address] Nurse Practitioner Certified Clinical Nurse Specialist 10/25/18 Jo-Ann Morrow, PhD [address] [facility] [address] [place] [address] Nurse Practitioner Radiation Oncology 10/25/18 Christina Louis PERINATAL SPECIALIST [address] [facility] [address] [facility] [address] [place] [address] Nurse Practitioner Medical Oncology 10/25/18 documented as of this encounter
--- OUTSIDE RECORDS SUMMARY | 2024-04-24 05:51 | XMS_ITS | Encounter Summary ---
Author Organization [facility] Address [address] [place] [address] Care Team Providers Care Application Release Manager Name Role Phone Erica Rodrigues MD Unavailable Gasper Kaba MD Unavailable Brandy Aguirre CLINICAL RESEARCH SPECIALIST Unavailable [phone] Jo-Ann Morrow PhD Unavailable [phone] Christina Louis LABELING ASSOCIATE Unavailable [phone] Sylvia Dawson Primary Care Provider [phone] Reason for Visit * Reason Comments Follow-up BP management. Encounter Details Date Type Department Care Team (Late st Contact Info) Description 04/17/2022 9:45 AM BRAKER PASSENGER TRAIN Office Visit [facility] Cardiology [address] [facility] [address] [facility] [address] [place] [address] Harpal De León MD [address] [place], [place] [id number] Atrial tachycardia (CMS/HCC) (HCC) (Primary Dx); Hypertension, essential Social History Tobacco Use Types Packs/Day Years [...] on file Legal Sex Female 3:42 AM BRAKER PASSENGER TRAIN Gender Identity Not on file Sexual Orientation Not on file 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 Not on file Not on file Not on file documented as of this encounter Last Filed Vital Signs Vital Sign Reading Time Taken Comments Blood Pressure 110/76 04/17/2022 9:47 AM BRAKER PASSENGER TRAIN Pulse 92 04/17/2022 9:47 AM BRAKER PASSENGER TRAIN Temperature - - Respiratory Rate - - Oxygen Saturation 97% 04/17/2022 9:47 AM BRAKER PASSENGER TRAIN Inhaled Oxygen Concentration - - Weight 63 kg (139 lb) 04/17/2022 9:47 AM BRAKER PASSENGER TRAIN Height 160 cm (5' 3 ) 04/17/2022 9:47 AM BRAKER PASSENGER TRAIN Body Mass Index 24.62 04/17/2022 9:47 AM BRAKER PASSENGER TRAIN documented in this encounter Progress Notes * Harpal De León MD - 04/17/2022 9:45 AM CST [facility] FOLLOW UP 04/17/2022 Yesika Denney is a 61 y.o. female who presents for follow up of atrial tachycardia. This is a patient that was referred for somewhat unusual automatic ectopic atrial tachycardia which was noticedHolter monitor after she was seen by the PCP reporting palpitations. She was placed on a beta-dylan, had the patient on a moderate dose of metoprolol. Her PCP transitioned her to Atenolol between appointment and today. The patient presents today for follow-up in the office earlier than her previously scheduled appointment primarily to discuss her blood pressure management. The patient has had chronic hypertension that has been managed by her PCP. She tells me today that she has had a chronic anterior communicating artery aneurysm followed by neurosurgery at [facility] for a number of years. Recently there was evidence of growth of that aneurysm to a size of 6 x 7 mm and it was determined that it will need to be treated. 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 She underwent stenting of both carotid arteries and is follow-up with them scheduled next month and there will be further decisions made on how to treat her aneurysm. Since these procedures he is concerned that her blood pressure is labile at times with pressures as low as in the 90s at times as high as in the 160s. For reasons that are not clear to me nurses at their office told her to discuss this with her cooler tender. 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 I also postulated that recent interventions in her carotid arteries likely have something to do with labile blood pressure at this time. She is not having any cardiac symptoms or complaints. REVIEW OF SYSTEMS General ROS: negative for [...] 24 hour period., Disp: , Rfl: aspirin 325 mg tablet, Take 1 tablet (325 mg total) by mouth daily, Disp: 30 tablet, Rfl: 0 atenoloL (TENORMIN) 25 mg tablet, TAKE 1 TABLET(25 MG) BY MOUTH DAILY (Patient taking differently: Take 25 mg by mouth every morning), Disp: 90 tablet, Rfl: 1 otfkkkrewo-vnpsgpenlijax-fgedbtff-codeine (FIORICET WITH CODEINE) 38-144-63-30 mg per capsule, Take1 capsule by mouth every 4 (four) hours as needed for headaches, Disp: 20 capsule, Rfl: 0 calcium carbonate/vitamin D3 (CALTRATE 600 PLUS D ORAL), Take 1 tablet by mouth every morning, Disp: , Rfl: clopidogreL (PLAVIX) 75 mg tablet, Take 1 tablet (75 mg total) by mouth daily, Disp: 30 tablet, Rfl: 0 coenzyme Q10 200 mg capsule, Take 1 capsule (200 mg total) by mouth every morning, Disp: , Rfl: difluprednate (DUREZOL) 0.05 % drops, Administer 1 drop into the left eye 3 (three) times a day for14 days, THEN 1 drop 2 (two) times a day for 14 days, THEN 1 drop daily for 14 days., Disp: 10 mL, Rfl: 11 dorzolamide (TRUSOPT) 2 % ophthalmic solution, Administer 1 drop into the left eye 3 (three) times a day, Disp: 10 mL, Rfl: 11 FLUoxetine (PROzac) 20 mg capsule, Take 1 capsule (20 mg total) by mouth 2 (two) times a day (Patient taking differently: Take 20 mg by mouth every morning), Disp: 180 capsule, Rfl: 1 folic acid (FOLVITE) 1 mg tablet, Take 2 tablets (2,000 mcg total) by mouth daily (Patient taking differently: Take 2,000 mcg by mouth every morning), Disp: 180 tablet, Rfl: 3 hydrOXYchloroQUINE (PLAQUENIL) 200 mg tablet, Take 1 tablet (200 mg total) by mouth daily (Patient taking differently: Take 200 mg by mouth every morning), Disp: 90 tablet, Rfl: 2 lisinopriL (PRINIVIL,ZESTRIL) 20 mg tablet, Take 1 tablet (20 mg total) by mouth daily (Patient taking differently: Take 20 mg by mouth every morning), Disp: 90 tablet, Rfl: 1 methotrexate 2.5 mg tablet, TAKE 8 TABLETS BY MOUTH ONCE A WEEK DIRECTED (Patient taking differently: Take 8 tablets on ), Disp: 96 tablet, Rfl: 0 multivitamin with minerals tablet, Take 1 tablet by mouth every morning, Disp: , Rfl: sulfaSALAzine EN (AZULFIDINE EN) 500 mg EC tablet, Take 2 tablets (1,000 mg total) by mouth 2 (two)times a day, Disp: 360 tablet, Rfl: 0 traMADoL (ULTRAM) 50 mg tablet, Take 50 mg by mouth every 6 (six) hours as needed, Disp: , Rfl: turmeric root extract 500 mg capsule, Take 500 mg by mouth every morning, Disp: , Rfl: valACYclovir (Valtrex) 500 mg tablet, Take 1 tablet (500 mg total) by mouth daily (Patient taking differently: Take 500 mg by mouth every morning), Disp: 90 tablet, Rfl: 2 vit E-C-cktwcv-zinc-lutein (PreserVision Lutein) 226-90-0.8-5 mg capsule, Take 1 tablet by mouth every morning, Disp: , Rfl: zinc 50 mg tablet, Take 50 mg by mouth every morning, Disp: , Rfl: LABS AND OTHER DIAGNOSTIC TESTS Lab Results Component Value Date CHOL 336 (H) 03/25/2022 CHOL 277 (H) 08/30/2021 CHOL 318 (H) 04/18/2021 Lab Results Component Value Date HDL 104 03/25/2022 HDL 96 08/30/2021 HDL 101 01/18/2021 Lab Results Component Value Date LDLCALC 218 (H) 03/25/2022 LDLCALC 171 (H) 08/30/2021 LDLCALC 204 (H) 01/18/2021 Lab Results Component Value Date TRIG 91 03/25/2022 TRIG 63 08/30/2021 TRIG 120 04/18/2021 No results found for: CHOLHDL Lab Results Component Value Date WBC 4.4 04/08/2022 HGB 12.5 04/08/2022 HCT 39.3 04/08/2022 MCV 103.4 (H) 04/08/2022 PLT 229 04/18/2021 No lab exists for component: LABALBU PHYSICAL EXAM Vitals BP 110/76 (BP Location: Left arm, Patient Position: Sitting) Pulse 92 Ht 160 cm (5' 3 ) Wt 63 kg (139 lb) LMP (LMP Unknown) SpO2 97% BMI 24.62 kg/m?? Physical Examination: General appearance - alert, [...] intervention in the foreseeable future. PLAN/RECOMMENDATIONS The patient's labile blood pressures probably related to her carotid artery interventions and I do not believe we should be manipulating her medications. I also explained to the patient and she understands well this is not directly a cardiac problem and I do not believe we should be manipulating her medications especially when she is anticipating a cerebral aneurysm procedure in the very near future. Harpal De León MD ER PASSENGER TRAIN documented in this encounter Plan of Treatment Not on file documented as of this encounter Visit Diagnoses Diagnosis Atrial tachycardia (HCC)- Primary Other specified cardiac dysrhythmias Hypertension, essential Unspecified essential hypertension documented in this encounter Care Teams Application Release Manager Relationship Specialty Start Date End Date Sylvia Dawson PA [address] [place] [address] PCP - General Internal Medicine 01/05/20 Erica Rodrigues MD [address] [place] [address] Radiation Oncologist Radiation Oncology 10/25/18 Gasper Kaba MD [address] [place] [address] Surgeon Surgical Oncology 10/25/18 Brandy Aguirre, CLINICAL RESEARCH SPECIALIST [address] [place] [address] Nurse Practitioner Certified Clinical Nurse Specialist 10/25/18 Jo-Ann Morrow, PhD [address] [place] [address] Nurse Practitioner Radiation Oncology 10/25/18 Christina Louis NP [address] [place] [address] Nurse Practitioner Medical Oncology 10/25/18 documented as of this encounter
--- OUTSIDE RECORDS SUMMARY | 2024-04-24 05:51 | XMS_ITS | Encounter Summary ---
Author Organization [facility] Address [address] [place] [address] Care Team Providers Care Career And Transition Teacher Name Role Phone Erica Rodrigues MD Unavailable Gasper Kaba MD Unavailable Brandy Aguirre BREAD OVEN OPERATOR Unavailable [phone] Jo-Ann Morrow PhD Unavailable [phone] Christina Louis OFFICE CLIN ASST Unavailable [phone] Sylvia Dawson Primary Care Provider [phone] Encounter Details Date Type Department Care Team (Late st Contact Info) Description 06/19/2022 11:15 AM DIRECTOR DIGITAL COMMUNICATIONS Office Visit [facility] Pulmonary Amber [address] [place] [address] [address] [place] [address] Meme Kraft, OFFICE CLIN ASST [address] [facility] [address] [address] Obstructive sleep apnea (Primary Dx) Social History [...] file Legal Sex Female 3:42 AM DIRECTOR DIGITAL COMMUNICATIONS Gender Identity Not on file Sexual Orientation Not on file 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 file Not on file Not on file documented as of this encounter Last Filed Vital Signs Vital Sign Reading Time Taken Comments Blood Pressure 130/74 06/19/2022 11:16 AM DIRECTOR DIGITAL COMMUNICATIONS Pulse 56 06/19/2022 11:16 AM DIRECTOR DIGITAL COMMUNICATIONS Temperature 36.7 ??C (98 ??F) 06/19/2022 11:16 AM DIRECTOR DIGITAL COMMUNICATIONS Respiratory Rate 18 06/19/2022 11:16 AM DIRECTOR DIGITAL COMMUNICATIONS Oxygen Saturation 95% 06/19/2022 11:16 AM DIRECTOR DIGITAL COMMUNICATIONS Inhaled Oxygen Concentration - - Weight 64.4 kg (142 lb) 06/19/2022 11:16 AM DIRECTOR DIGITAL COMMUNICATIONS Height 160 cm (5' 3 ) 06/19/2022 11:16 AM DIRECTOR DIGITAL COMMUNICATIONS Body Mass Index 25.15 06/19/2022 11:16 AM DIRECTOR DIGITAL COMMUNICATIONS documented in this encounter Progress Notes * Meme Kraft, OFFICE CLIN ASST - 06/19/2022 11:15 AM CST Images from the original note were not included. Patient ID: Yesika Denney is a 61 y.o. female. HPI. Patient is a 61 y.o. female returns for follow-up after have an in-home nocturnal polysomnogram completed on May 06, 2022. The patient was found have an overall apnea-hypopnea index of 42.8 times per hour sleep. The lowest oxygen saturation recorded was 87%. Patient spent 4.6 minutes with an overall oxygen saturation below 90%. These results shared with the patient. The patient states she is had her machine for short period of time. The patient states she did change CPAP mask and seemsto be better. The patient has not seen a significant change in her energy level. The patient deniesdry mouth or headache in the morning. She is not snoring with the mask on. She is dreaming when she sleeps. Her compliance report shows an average use is 8 hours and 2 minutes per night on 98% nights, her AHI is 6.4. The CPAP median pressure is 6.6 cm water pressure the maximum pressure is 10.2. The patient states that time she feels like her pressure is too high in the middle of the night. The patient states she is waking up in the middle of night does have difficulty falling back asleep. No chief complaint on file. Current Medications: Outpatient Encounter Medications as of 06/19/2022 Medication Sig Dispense Refill acetaminophen (TYLENOL) 325 mg tablet Take 2 tablets (650 mg total) by mouth every 6 (six) hours asneeded for pain Do not exceed 4000 mg of acetaminophen in a 24 hour period. (Patient taking differently: Take 650 mg by mouth every 6 (six) hours as needed for pain Do not exceed 4000 mg of acetaminophen in a 24 hour period.) aspirin 81 mg enteric coated tablet Take 1 tablet (81 mg total) by mouth daily (Patient taking differently: Take 81 mg by mouth every morning) 90 tablet 3 atenoloL (TENORMIN) 25 mg tablet TAKE 1 TABLET(25 MG) BY MOUTH DAILY (Patient taking differently: Take 25 mg by mouth every morning) 90 tablet 1 rngoqmeyta-ixbrdeipwafkl-wguwyebw-codeine (FIORICET WITH CODEINE) 77-202-43-30 mg per capsule Take 1 capsule by [...] BY MOUTH DAILY (Patient taking differently: Take 12.5 mg by mouth as needed) 90 tablet 0 hydrOXYchloroQUINE (PLAQUENIL) 200 mg tablet Take 1 tablet (200 mg total) by mouth daily (Patient taking differently: Take 200 mg by mouth every morning) 90 tablet 2 lisinopriL (PRINIVIL,ZESTRIL) 20 mg tablet Take 1 tablet (20 mg total) by mouth daily (Patient taking differently: Take 20 mg by mouth every morning) 90 tablet 2 methotrexate 2.5 mg tablet Take 8 tablets on (Patient taking differently: 2.5 mg every 7 days Take 8 tablets on ) 96 tablet 2 multivitamin with minerals tablet Take 1 tablet by mouth every morning sulfaSALAzine EN (AZULFIDINE EN) 500 mg EC tablet Take 2 tablets (1,000 mg total) by mouth 2 (two) times a day 360 tablet 0 ticagrelor (BRILINTA) 60 mg tablet Take 1 tablet (60 mg total) by mouth 2 (two) times a day (Patient taking differently: Take 60 mg by mouth 2 (two) times a day) 60 tablet 3 turmeric root extract 500 mg capsule Take 500 mg by mouth every morning valACYclovir (Valtrex) 500 mg tablet Take 1 tablet (500 mg total) by mouth daily (Patient taking differently: Take 500 mg by mouth every morning) 90 tablet 2 vit B-J-stlnuq-zinc-lutein (PreserVision Lutein) 226-90-0.8-5 mg capsule Take 1 tablet by mouth every morning zinc 50 mg tablet Take 50 mg by mouth every morning No facility-administered encounter medications on file as of 06/19/2022. Review of Systems Constitutional: Negative for fever. HENT: Negative for tinnitus. Eyes: Negative for visual disturbance. Respiratory: Negative for cough, shortness of breath and wheezing. Cardiovascular: Negative for chest pain. Gastrointestinal: Negative for diarrhea, nausea and vomiting. Skin: Negative for rash. Neurological: Negative for dizziness. BP 130/74 Pulse 56 Temp 36.7 ??C (98 ??F) Resp 18 Ht 160 cm (5' 3 ) Wt 64.4 kg (142 lb) LMP (LMP Unknown) SpO2 95% BMI 25.15 kg/m?? Physical Exam Constitutional: General: She is not in acute distress. HENT: Mouth/Throat: Pharynx: No oropharyngeal exudate. Eyes: Pupils: Pupils are equal, round, and reactive to light. Cardiovascular: Rate and Rhythm: Normal rate and regular rhythm. Pulmonary: Effort: Pulmonary effort is normal. Breath sounds: Normal breath sounds. No wheezing. Abdominal: Palpations: Abdomen is soft. Musculoskeletal: Cervical back: Normal range of motion. Imaging: I Assessment & Plan: Diagnoses and all orders for this visit: Obstructive sleep apnea (Primary) Assessment & Plan: Due to the patient feeling like the [...] strenuous exercise. The patient's DME is [employer]. Return in about 3 months (around 09/19/2022). Meme Kraft NP Cosigned by Douglas Acosta MD at 06/19/2022 2:47 PM DIRECTOR DIGITAL COMMUNICATIONS CTOR DIGITAL COMMUNICATIONS CTOR DIGITAL COMMUNICATIONS documented in this encounter Miscellaneous Notes * Assessment & Plan Note - Meme Kraft NP - 06/19/2022 12:04 PM DIRECTOR DIGITAL COMMUNICATIONS Associated Problem(s): Obstructive sleep apnea Due to the patient feeling like the pressure is too strong I will change the pressures to 5-11 cm of water pressure. I did advise the patient that hopefully the change in CPAP pressures will allow her to sleep through the night. The patient just had surgery due to a brain aneurysm. She is currentlynot able to do strenuous exercise. The patient's DME is [employer]. CTOR DIGITAL COMMUNICATIONS documented in this encounter Plan of Treatment Not on file documented as of this encounter Visit Diagnoses Diagnosis Obstructive sleep apnea- Primary Obstructive sleep apnea (adult) (pediatric) documented in this encounter Care Teams Career And Transition Teacher Relationship Specialty Start Date End Date Sylvia Dawson PA [address] [place] [address] PCP - General Internal Medicine 01/05/20 Erica Rodrigues MD [address] [place] [address] Radiation Oncologist Radiation Oncology 10/25/18 Gasper Kaba MD [address] [place] [address] Surgeon Surgical Oncology 10/25/18 Brandy Aguirre, BREAD OVEN OPERATOR [address] [place] [address] Nurse Practitioner Certified Clinical Nurse Specialist 10/25/18 Jo-Ann Morrow, PhD [address] [facility] [address] [place] [address] Nurse Practitioner Radiation Oncology 10/25/18 Christina Louis, OFFICE CLIN ASST [address] [facility] [address] [place] [address] Nurse Practitioner Medical Oncology 10/25/18 documented as of this encounter
--- OUTSIDE RECORDS SUMMARY | 2024-04-24 05:51 | XMS_ITS | Encounter Summary ---
Author Organization [facility] Address [address] [place] [address] Phone Care Team Providers Care Mobile Nurse Name Role Phone Erica Rodrigues MD Unavailable Gasper Kaba MD Unavailable Brandy Aguirre BRIQUETTE MOLDER Unavailable [phone] Jo-Ann Morrow PhD Unavailable [phone] Christina Louis FLANGER Unavailable [phone] Sylvia Dawson Primary Care Provider [phone] Encounter Details Date Type Department Care Team (Late st Contact Info) Description 05/19/2022 Orders Only [facility] Neurosurgery [address] [facility] [address] [place] [address] Lizzie Green, FLANGER [address] [place] [address] Social History Tobacco Use Types Packs/Day Years [...] on file Legal Sex Female 3:42 AM APPRAISER Gender Identity Not on file Sexual Orientation Not on file 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 Not on file Not on file documented as of this encounter Ordered Prescriptions Prescription Sig Dispense Quantity Refills Last Filled Start Date End Date aspirin 325 mg tablet Take 1 tablet (325 mg total) by mouth daily 90 tablet 3 05/19/2022 05/28/2022 documented in this encounter Plan of Treatment Not on file documented as of this encounter Visit Diagnoses Not on filedocumented in this encounter Discontinued Medications Medication Sig Discontinue Reason Start Date End Da te aspirin 325 mg tablet Take 1 tablet (325 mg total) by mouth daily Reorder 04/11/2022 05/19/2022 documented as of this encounter Care Teams Mobile Nurse Relationship Specialty Start Date End Date Sylvia Dawson PA [address] [facility] [address] [place] [address] PCP - General Internal Medicine 01/05/20 Erica Rodrigues MD [address] [facility] [address] [place] [address] Radiation Oncologist Radiation Oncology 10/25/18 Gasper Kaba MD [address] [facility] [address] [place] [address] Surgeon Surgical Oncology 10/25/18 Brandy Aguirre CNS [address] [facility] [address] [place] [address] Nurse Practitioner Certified Clinical Nurse Specialist 10/25/18 Jo-Ann Morrow, PhD [address] [facility] [address] [place] [address] Nurse Practitioner Radiation Oncology 10/25/18 Christina Louis, JENNI [address] [facility] [address] [place], [place] [address] Nurse Practitioner Medical Oncology 10/25/18 documented as of this encounter
--- OUTSIDE RECORDS SUMMARY | 2024-04-24 05:51 | XMS_ITS | Encounter Summary ---
Author Organization [facility] Address [address] [place] [address] Phone Care Team Providers Care Vice President Process Name Role Phone Erica Rodrigues MD Unavailable Gasper Kaba MD Unavailable Brandy Aguirre INBOUND CUSTOMER SERVICE AGENT Unavailable [phone] Jo-Ann Morrow PhD Unavailable [phone] Christina Louis SUB PLANT MANAGER Unavailable [phone] Sylvia Dawson Primary Care Provider [phone] Encounter Details Date Type Department Care Team (Late st Contact Info) Description 06/17/2022 Telephone [facility] Neurosurgery [address] [facility] Advanced Medicine 6th [place] [address] [place] [address] Jo Cervantes, RN Social History Tobacco Use Types Packs/Day [...] on file Legal Sex Female 3:42 AM LAUNDRY PRICING CLERK Gender Identity Not on file Sexual Orientation Not on file 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 DRY PRICING CLERK * Telephone Encounter - Jo Cervantes RN - 06/17/2022 3:55 PM LAUNDRY PRICING CLERK ----- Message from Mirlande Watts NP sent at 06/17/2022 8:15 AM LAUNDRY PRICING CLERK ----- Regarding: Follow-up Appt HI. Patient needs an appt to be seen in 6 weeks, no imaging with Dr. Moss. 06/16 WEB for acom aneurysm. He is going home today on ASA 81 and Brilinta 60mg BID. Thanks DRY PRICING CLERK documented in this encounter Plan of Treatment Not on file documented as of this encounter Visit Diagnoses Not on filedocumented in this encounter Care Teams Vice President Process Relationship Specialty Start Date End Date Sylvia Dawson PA [address] [facility] [address] [address] [address] [place] [address] PCP - General Internal Medicine 01/05/20 Erica Rodrigues MD [address] [facility] [address] [place] [address] Radiation Oncologist Radiation Oncology 10/25/18 Gasper Kaba MD [address] [place] [address] Surgeon Surgical Oncology 10/25/18 Brandy Aguirre, CARINA [address] [place] [address] Nurse Practitioner Certified Clinical Nurse Specialist 10/25/18 Jo-Ann Morrow, PhD [address] [place] [address] Nurse Practitioner Radiation Oncology 10/25/18 Christina Louis NP [address] [place] [address] Nurse Practitioner Medical Oncology 10/25/18 documented as of this encounter
--- OUTSIDE RECORDS SUMMARY | 2024-04-24 05:52 | XMS_ITS | Encounter Summary ---
Author Organization [facility] Healthcare Address [address] [place] [address] Care Team Providers Care Supervisor Assembly Department Name Role Phone Erica Rodrigues MD Unavailable Gasper Kaba MD Unavailable Brandy Aguirre FOOD DEHYDRATOR OPERATOR Unavailable [phone] Jo-Ann Morrow PhD Unavailable [phone] Christina Louis HOME PLANNING CONSULTANT SALESPERSON Unavailable [phone] Sylvia Dawson Primary Care Provider [phone] Reason for Visit * Auth/Cert Specialty Diagnoses / Procedures Referred By Niranjan t Referred To Contact Diagnoses 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 Monthly or less 02/10/2022 Q2: How many drinks containi ng alcohol do you have on a typical day when you are drinking? 1 or 2 02/10/2022 Q3: How often do you have si x or more drinks on one occasion? 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 Not on file Not on file Not on file documented as of this encounter Last Filed Vital Signs Vital Sign Reading Time Taken Comments Blood Pressure 123/69 02/11/2022 11:20 AM CDT Pulse 51 02/11/2022 11:20 AM CDT Temperature 36.4 ??C (97.5 ??F) 02/11/2022 11:10 AM C DT Respiratory Rate 9 02/11/2022 11:20 AM CDT Oxygen Saturation 94% 02/11/2022 11:20 AM CDT Inhaled Oxygen Concentration - - Weight 61.2 kg (135 lb) 02/03/2022 5:20 PM CDT Height 160 cm (5' 3 ) 02/03/2022 5:20 PM CDT Body Mass Index 23.91 02/03/2022 5:20 PM CDT documented in this encounter Medications at Time of Discharge multivitamin with minerals tabletIndication s:Vitamin Deficiency Prevention Take 1 tablet by mouth every morning vit F-U-gubsww-zinc- lutein (PreserVision Lutein) 226-90-0.8-5 mg capsuleIndicatio ns:Eye support Take 1 tablet by mouth 2 (two) times a day aspirin 81 mg enteric coated tabletIndication s:can't recall why they put her on this Take 1 tablet (81 mg total) by mouth 2 (two) times a week Tues and Thu03/17/2022 atenoloL (TENORMIN) 25 mg tablet TAKE 1 TABLET(25 MG) BY MOUTH DAILY 90 tablet 1 09/16/2021 03/10/2022 calcium carbonate/vitami n D3 (CALTRATE 600 PLUS D ORAL) Take 1 tablet by mouth every morning 08/29/2022 coenzyme Q10 200 mg capsule Take 1 capsule (200 mg total) by mouth every morning 08/06/2022 FLUoxetine (PROzac) 20 mg capsuleIndicatio ns:Stress Take 1 capsule (20 mg total) by mouth 2 (two) times a day 180 capsule 1 01/13/2022 02/25/2022 folic acid (FOLVITE) 1 mg tablet Take 2 tablets (2,000 mcg total) by mouth daily 180 tablet 3 09/16/2021 05/26/2022 hydrOXYchloroQUI NE (PLAQUENIL) 200 mg tablet Take 1 tablet (200 mg total) by mouth daily 90 tablet 2 07/10/2021 07/02/2022 lisinopriL (PRINIVIL,ZESTRI L) 40 mg tabletIndication s:Hypertension, essential TAKE 1 TABLET DAILY 90 tablet 1 02/07/2022 02/27/2022 methotrexate 2.5 mg tablet TAKE 8 TABLETS BY MOUTH ONCE A WEEK DIRECTED 96 tablet 12/12/2021 03/05/2022 prednisoLONE acetate (PRED FORTE) 1 % ophthalmic suspension One drop, 4x/day for 1 week,3x/day for 1 week,2x/day for 1 week,1x/day for week,then stop. Left Eye. 10 mL 3 02/12/2022 02/19/2022 sulfaSALAzine EN (AZULFIDINE EN) 500 mg EC tablet TAKE 2 TABLETS TWO TIMES A DAY 360 tablet 1 10/09/2021 04/08/2022 tobramycin (TOBREX) 0.3 % ophthalmic solution One drop to Left eye 4 times per day 5 mL 2 02/12/2022 02/19/2022 turmeric root extract 500 mg capsule Take 500 mg by mouth every morning 08/29/2022 valACYclovir (Valtrex) 500 mg tabletIndication s:Recurrent cold sores Take 1 tablet (500 mg total) by mouth daily 90 tablet 2 01/07/2022 02/27/2022 zinc 50 mg tablet Take 50 mg by mouth every morning 08/29/2022 documented as of this encounter Ordered Prescriptions Prescription Sig Dispense Quantity Refills Last Filled Start Date End Date tobramycin (TOBREX) 0.3 % ophthalmic solution One drop to Left eye 4 times per day 5 mL 2 02/12/2022 02/19/2022 prednisoLONE acetate (PRED FORTE) 1 % ophthalmic suspension One drop, 4x/day for 1 week,3x/day for 1 week,2x/day for 1 week,1x/day for week,then stop. Left Eye. 10 mL 3 02/12/2022 02/19/2022 documented in this encounter Discharge Disposition Disposition Code Departure Means Destination Discharge to home or self care documented in this encounter H&P Notes * Jessy Adame MD - 02/11/2022 10:20 AM CDT I have reviewed the H&P, examined the patient, and endorse the findings as written. Plan of Care : Based on the above findings, I consider Yesika Denney to be an acceptable risk for : Procedure(s): VITRECTOMY - 25 GAUGE Left eye Risks, benefits and alternatives for surgery [...] Source Note - Fadi Mckeon MD - 02/04/2022 9:52 AM CDT Images from the original note were not included. [facility] for Preoperative Assessment and Planning Preoperative Evaluation Record Evaluation type/location: TPAP from [facility] Planned procedure site: [facility] OR (Pod 4) Date: 02/04/22 NOTE: This note represents a preoperative evaluation initiated via telephone interview. NO PHYSICALEXAM was performed at the time of initial assessment. A physical exam may be added to this note anddocumented below. Anesthesia Evaluation Yesika Denney is a 61 y.o. female Procedure(s): VITRECTOMY - 25 GAUGE Pre-Op Diagnosis Codes: * Cystoid macular edema of both eyes [H35.353] HISTORY HPI 61 year old female with hx of HTN, HLD, anterior communicating artery aneurysm, breast cancer, RA being evaluated prior to undergoing left eye vitrectomy (25 gauge) for cystoid macular edema. Past Medical History Information obtained from: patient and chart. Neurological Pertinent negatives: seizures; neuromuscular disease; CVA/stroke; TIA; CEA; ICA stenosis; dementia/mild cognitive impairment and carotid artery stent Comments: Brain aneurysm, followed by neuro Cardiovascular + Hypertension ( well controlled , last PCP OV 08/26/21) + Hyperlipidemia + Systolic or diastolic dysfunction w/o CHF Diastolic dysfunction w/o CHF. Diastolic function: stage I - impaired relaxation LVEF: 60-70%. + Other arrhythmia (atenolol) - sinus tachycardia. Pertinent negatives: CAD ; IL ; CABG ; valvular heart disease; valve replacement; atrial fibrillation; pacemaker/ICD; PVD; DVT/PE; negative for CHF; drug-eluting stent(s); bare metal stent(s) and coronary angioplasty Respiratory Pertinent negatives: COPD; asthma; sleep apnea (JOSE); pulmonary hypertension; no O2 use outside thehospital and non-smoker Hepatic / Heme Pertinent negatives: liver disease; history of anemia; history of thrombocytopenia and history of Tamiko positive Gastrointestinal Pertinent negatives: GERD and hiatal hernia Renal / Pertinent negatives: renal disease; dialysis and nephrolithiasis Musculoskeletal/Pain Pertinent negatives: chronic pain; chronic opioid use and previous treatment for opioid use disorder Endocrine / Other + Cancer history (Rx arimidex)- in remission. Cancer type: breast; chemo- 03/2015, radiation-12/2014. + Rheumatological disease (Rx methotrexate, plaquenil, sulfasalazine) - rheumatoid arthritis. + Infectious disease (hospitalized for COVID & PNA in 2020) - pneumonia. Pertinent negatives: diabetes mellitus; thyroid disease; obesity (BMI >30) and transplanted organ Functional Capacity Functional capacity: 4-6 METs Comments: Patient would be able to climb 2 flights of stairs at moderate pace without SOB or CP. Patient would be able to walk 3-4 city blocks at moderate pace without SOB or CP. Review of Systems + vision loss Pertinent negatives: productive cough; wheezing; SOB; recent cold/flu; fever; chest pain; palpitations; orthopnea; pedal edema; PND; Sickle Cell disease/trait; previous transfusion; transfusion reaction; melena/hematochezia; easy bruising; bleeding problems; syncope; dizziness; muscle weakness; chronic pain; numbness/tingling; hard of hearing; heartburn; nausea; dysphagia; diarrhea; dentures/partials; chipped/loose teeth; abdominal pain; diaphoresis and no unexpected weight change PAT Summary and Plans Cardiac risk classification of planned procedure: low cardiac risk. Disposition: suitable for outpatient surgery center. Preoperative assessment status: complete. Additional comments: Yesika Denney is a 61 y.o. female who is being evaluated prior to undergoing a low cardiac risk surgery. Revised Cardiac Risk Index factors are (none) for a total RCRI of 0 out of 6. Functional capacity is 4-6 METs. Obstructive sleep apnea (JOSE) screening status is STOP-BANG incomplete at 3-4 suggesting MODERATE risk for JOSE. Neck circumference pending. May need JOSE order set initiated if Co2 >27. This assessment was performed via telephone. Therefore the physical exam has been deferred to the day of surgery team. The patient was provided with preoperative instructions for their medications. Patient instructions were provided by telephone and electronically sent via [employer]. Patient verbalized understanding of preoperative plan. Blood bank needs for day of procedure: No type and screen needed Pending labs/tests include: None Pt describes herself as a lightweight in regards to medication/anesthesia. Lymph nodes removed from right side. Pt requests BP cuff, needle sticks to LUE. The patient is on aspirin therapy for primary prevention. The bleeding risk for the planned procedure is insignificant and therefore aspirin can be continued throughout the periprocedural period. Please call the CPAP attending ([phone]) with any questions. Patient's COVID19 status is: Unexposed. The patient currently has no concerning symptoms of COVID19. . Patient's COVID-19 vaccination status is Up to date with 3 mRNA vaccines. Documentation of vaccination status is available in the Epic Immunization tab. . Plan for pre-procedure COVID19 testing: Patient is asymptomatic and up to date with their COVID-19 vaccine. COVID-19 testing not indicated. . TPAP complete. Preoperative evaluation performed by Saida Anderson NP on 02/04/22 at 9:56 AM . Patient Active Problem List Diagnosis ??? [...] pain ??? Atrial tachycardia (CMS/HCC) (HCC) ??? Fever ??? History of COVID-19 ??? Hypertension, essential ??? Tachycardia ??? Cough ??? Fatigue ??? Moderate episode of recurrent major depressive disorder (HCC) ??? Breast mass ??? Pain in both feet ??? Cystoid macular edema of both eyes ??? BMI 24.0-24.9, adult ??? PCO (posterior capsule opacification), bilateral ??? Pattern dystrophy of macula ??? Bronchiolitis Past Medical History: Diagnosis Date ??? Autoimmune disease (CMS/HCC) (HCC) ??? Benign left breast lump 06/2002 biopsy showed fibrosis and hyperplasia ??? Brain aneurysm Followed by Dr. Chaudhari: Every 3 years ??? Breast cancer (CMS/HCC) (HCC) 2014 ??? Cataract ??? Depression ??? Elevated cholesterol ??? Hypertension ??? Migraine ??? Motion sickness sometimes on [place] ??? RA (rheumatoid arthritis) (HCC) Past Surgical History: Procedure Laterality Date ??? BREAST BIOPSY Left 2002 benign ??? BREAST LUMPECTOMY Right 2014 ??? COLONOSCOPY 03/06/2020 ??? CYST REMOVAL ??? 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 No history fertility medications. She used oral contraceptives in the past. One does progesterone 08/2014. She experienced menopause approximately age 53. Allergies Allergen Reactions ??? Adhesive Hives Paper tape OK ??? Adhesive Tape-Silicones Rash ??? Cyclizine Other (See comments) and Hallucinations Marezine about 1981 Reaction: Urinary retention Med List Status: Nurse Complete Set By: Jo-Ann Pearce RN at 02/03/2022 5:37 PM Taking? Last Dose Start Date End Date Provider aspirin 81 mg enteric coated tablet Past Week -- -- Ronda Ruano MD atenoloL (TENORMIN) 25 mg tablet 02/03/2022 09/16/21 -- Harpal De León MD TAKE 1 TABLET(25 MG) BY MOUTH DAILY Patient taking differently: Take 25 mg by mouth every morning calcium carbonate/vitamin D3 (CALTRATE 600 PLUS D ORAL) 02/02/2022 -- -- ProviderRonda MD coenzyme Q10 200 mg capsule 02/02/2022 -- -- Ronda Ruano MD FLUoxetine (PROzac) 20 mg capsule 02/03/2022 01/13/22 -- Sylvia Dawson PA Take 1 capsule (20 mg total) by mouth 2 (two) times a day Patient taking differently: Take 20 mg by mouth 2 (two) times a day Notes: This is a change in directions. Please update your records and delete the every day dosing to avoid confusion/duplicate therapy folic acid (FOLVITE) 1 mg tablet 02/03/2022 09/16/21 -- Patricia Martinez MD Take 2 tablets (2,000 mcg total) by mouth daily Patient taking differently: Take 2,000 mcg by mouth every morning hydrOXYchloroQUINE (PLAQUENIL) 200 mg tablet 02/03/2022 07/10/21 -- Patricia Martinez MD Take 1 tablet (200 mg total) by mouth daily Patient taking differently: Take 200 mg by mouth every morning lisinopriL (PRINIVIL,ZESTRIL) 40 mg tablet 02/03/2022 08/06/21 -- Sylvia Dawson PA TAKE 1 TABLET DAILY Patient taking differently: Take 40 mg by mouth every morning methotrexate 2.5 mg tablet Past Week 12/12/21 -- Patricia Martinez MD TAKE 8 TABLETS BY MOUTH ONCE A WEEK DIRECTED Patient taking differently: Take 20 mg by mouth every 7 days (8 tablets) multivitamin with minerals tablet 02/02/2022 -- -- Ronda Ruano MD sulfaSALAzine EN (AZULFIDINE EN) 500 mg EC tablet 02/03/2022 10/09/21 -- Patricia Martinez MD TAKE 2 TABLETS TWO TIMES A DAY Patient taking differently: Take 1,000 mg by mouth 2 (two) times a day turmeric root extract 500 mg capsule 02/02/2022 -- -- Ronda Ruano MD valACYclovir (Valtrex) 500 mg tablet 02/03/2022 01/07/22 -- Sylvia Dawson PA Take 1 tablet (500 mg total) by mouth daily Patient taking differently: Take 500 mg by mouth every morning vit U-D-pxnxcc-zinc-lutein (PreserVision Lutein) 226-90-0.8-5 mg capsule 02/03/2022 -- -- Ronda Ruano MD zinc 50 mg tablet 02/02/2022 -- -- Ronda Ruano MD No current facility-administered medications for this encounter. Current Outpatient Medications: ??? aspirin 81 mg enteric coated tablet ??? atenoloL (TENORMIN) 25 mg tablet ??? calcium carbonate/vitamin D3 (CALTRATE 600 PLUS D ORAL) ??? coenzyme Q10 200 mg capsule ??? FLUoxetine (PROzac) 20 mg capsule ??? folic acid (FOLVITE) 1 mg tablet ??? hydrOXYchloroQUINE (PLAQUENIL) 200 mg tablet ??? lisinopriL (PRINIVIL,ZESTRIL) 40 mg tablet ??? methotrexate 2.5 mg tablet ??? multivitamin with minerals tablet ??? sulfaSALAzine EN (AZULFIDINE EN) 500 mg EC tablet ??? turmeric root extract 500 mg capsule ??? valACYclovir (Valtrex) 500 mg tablet ??? vit O-R-bcajhb-zinc-lutein (PreserVision Lutein) 226-90-0.8-5 mg capsule ??? zinc 50 mg tablet Social History Tobacco Use Smoking Status Never ??? Passive exposure: Never Smokeless Tobacco Never Alcohol Use: Not At Risk ??? Frequency of Alcohol Consumption: Monthly or less ??? Average Number of Drinks: 1 or 2 ??? Frequency of Binge Drinking: Never Substance and Sexual Activity Drug Use No Family History Problem Relation Age of Onset [...] Paternal Grandmother ??? Anesthesia problems Neg Hx There were no vitals filed for this visit. Relevant diagnostics: ECG(s): N/A Echocardiogram(s): TTE 09/20/20 Conclusions: Normal left ventricular systolic function. No focal wall motion abnormalities. Normal left ventricular size. Impaired diastolic relaxation Grade I. Ejection fraction is measured at 62 %. Trivial mitral, tricuspid and pulmonic regurgitation. Compared with 2019: no change. Stress test(s): N/A Cardiac catheterization(s): N/A PFT(s): N/A Vascular studies: N/A Other: N/A PT: No results found for requested labs [...] findings of the anesthesia pre-evaluation assessment dated: 02/04/2022. Airway Exam: Mallampati: II Cervical ROM: FROM TM distance: normal Cardiovascular Exam: Rate: regular Rhythm: regular Pulmonary Exam: LCTA, bilat EENT Exam: trachea midline Dental Exam: Appears intact Skin Exam: Skin is warm. Turgor is normal. Abdominal Exam: Abdomen is soft. Current state: Patient's current state is cooperative and interactive. Anesthesia Plan ASA 2 My patient is approved for the Anesthesia Controlled Medication protocol when under care of a PLACER MINER Planned anesthesia: MAC Induction: Induction: intravenous. Postoperative Plan: No plan for postoperative opioid use. No postoperative mechanical ventilation intended. Patient's planned disposition post procedure is Outpatient. No trial extubation planned. Informed Consent: Discussed plan with PLACER MINER. Anesthesia plan and risks discussed with patient and spouse. Consent and Attending signature: I and/or my designee have discussed the anesthesia plan, benefits, possible alternatives, parental presence at time of induction (if indicated), and clinically relevant risks that may include dental injury, unintentional awareness, and/or other complications. The patient and/or parent/legal guardian understand, and agree to proceed. All questions answered. * Jacek Joyce MD - 02/11/2022 10:02 AM CDT Ophthalmology History and Physical Subjective Ms. Denney has a past medical history of Autoimmune disease ([facility]/HCC) ([facility]), Benign left breast lump (06/2002), Brain aneurysm, Breast cancer (CMS/HCC) ([facility]) (2014), Cataract, Depression, Elevated cholesterol, Hypertension, Migraine, Motion sickness, and RA (rheumatoid arthritis) ([facility]). she has a past surgical history that includes IR Port Removal (N/A, 04/10/2015); IR Port Placement Chest > 5 Years (N/A, 01/17/2015); Cyst Removal; Endometrial ablation (02/2007); Tonsillectomy (1982); rhinoplasty (1984); Thyroidectomy, partial (Left, 1997); Hysteroscopy; Colonoscopy (03/06/2020); Breast lumpectomy (Right, 2014); Breast biopsy (Left, 2002); Eye surgery; and Tubal ligation (02/2007). HPI: 61 y.o.female presents for operative intervention of vitreous opacification of the left eye. Allergies Allergen Reactions Adhesive Hives Paper tape OK Adhesive Tape-Silicones Rash Cyclizine Other (See comments) and Hallucinations Marezine about 1982 Reaction: Urinary retention Social History Tobacco Use Smoking status: Never Passive exposure: Never Smokeless tobacco: Never Substance and Sexual Activity Drug use: No Sexual activity: Defer Partners: Male control/protection: Post-menopausal, [...] Stroke Paternal Grandmother Anesthesia problems Neg Hx Medications Prior to Admission Medication Sig Dispense Refill Last Dose aspirin 81 mg enteric coated tablet Take 81 mg by mouth 2 (two) times a week and Thu Past Week atenoloL (TENORMIN) 25 mg tablet TAKE 1 TABLET(25 MG) BY MOUTH DAILY (Patient taking differently: Take 25 mg by mouth every morning) 90 tablet 1 02/11/2022 calcium carbonate/vitamin D3 (CALTRATE 600 PLUS D ORAL) Take 1 tablet by mouth every morning Past Week coenzyme Q10 200 mg capsule Take 200 mg by mouth every morning Past Week FLUoxetine (PROzac) 20 mg capsule Take 1 capsule (20 mg total) by mouth 2 (two) times a day (Patient taking differently: Take 20 mg by mouth 2 (two) times a day) 180 capsule 1 02/10/2022 folic acid (FOLVITE) 1 mg tablet Take 2 tablets (2,000 mcg total) by mouth daily (Patient taking differently: Take 2,000 mcg by mouth every morning) 180 tablet 3 02/10/2022 hydrOXYchloroQUINE (PLAQUENIL) 200 mg tablet Take 1 tablet (200 mg total) by mouth daily (Patient taking differently: Take 200 mg by mouth every morning) 90 tablet 2 02/10/2022 lisinopriL (PRINIVIL,ZESTRIL) 40 mg tablet TAKE 1 TABLET DAILY 90 tablet 1 02/11/2022 methotrexate 2.5 mg tablet TAKE 8 TABLETS BY MOUTH ONCE A WEEK DIRECTED (Patient taking differently: Take 20 mg by mouth every 7 days (8 tablets) ) 96 tablet 0 Past Week multivitamin with minerals tablet Take 1 tablet by mouth every morning Past Week sulfaSALAzine EN (AZULFIDINE EN) 500 mg EC tablet TAKE 2 TABLETS TWO TIMES A DAY (Patient taking differently: Take 1,000 mg by mouth 2 (two) times a day) 360 tablet 1 02/10/2022 turmeric root extract 500 mg capsule Take 500 mg by mouth every morning Past Week valACYclovir (Valtrex) 500 mg tablet Take 1 tablet (500 mg total) by mouth daily (Patient taking differently: Take 500 mg by mouth every morning) 90 tablet 2 02/10/2022 vit A-M-pwexsl-zinc-lutein (PreserVision Lutein) 226-90-0.8-5 mg capsule Take 1 tablet by mouth every morning Past Week zinc 50 mg tablet Take 50 mg by mouth every morning Past Week Review of Systems Review of Systems Blurriness of left eye, all other systems negative Objective Wt Readings from Last 3 Encounters: 02/03/22 61.2 kg (135 lb) 02/10/22 63.5 kg (140 lb) 08/26/21 63.6 kg (140 lb 4.8 oz) Temp Readings from Last 3 Encounters: 02/11/22 36.7 ??C (98.1 ??F) 08/26/21 36.9 ??C (98.5 ??F) (Oral) 08/22/21 36.7 ??C (98 ??F) BP Readings from Last 3 Encounters: 02/11/22 126/71 02/10/22 131/85 08/26/21 120/70 Pulse Readings from Last 3 Encounters: 02/11/22 58 02/10/22 70 08/26/21 51 Physical exam: Physical Exam A&O x 3 Normocephalic/atraumatic Regular rhythm on monitor Unlabored breathing on room air Abdomen soft to palpation Limbs perfused Assessment/Plan Plan for surgery left eye VITRECTOMY - 25 GAUGE: documented in this encounter Miscellaneous Notes * Perioperative Nursing Note - Cassie Snow RN - 02/11/2022 10:39 AM CDT Unoperative eye [facility] [place] [facility] disposable drape retractor applied prior to start of procedure * Op Note - Jessy Adame MD - 02/11/2022 10:38 AM CDT Risks, benefits and alternatives for surgery [...] care. They understand and wish to proceed. She wished to participate in the vitreous biopsy study. Patient was brought to the operating suite where monitored anesthesia care was initiated. They received peribulbar anesthesia to the left eye. The left eye was prepped and draped in normal sterile fashion. A lid speculum was used to hold the eyelids in place. Using 25 gauge trocars incisions were fashioned 3.5 mm posterior to the limbus in the supratemporal, supranasal and inferotemporal quadrants. The infusion line was hooked up inferotemporally was viewed through the pupil found to be in the vitreous cavity, not in the subretinal space. At this point a small dry sample of vitreous was removed from the eye using the vitrector and light pipe. At this point the infusion was turned on. Through the remaining superior trocars a complete vitrectomy was performed.The posterior hyaloid was attached, it was elevated and dissected the vitreous base using depressed techniques with the aid of skilled assistant maintenance manager. There appeared to be some scar tissue on the posterior surface of the intra-ocular lens, the capsule was opened using the vitrector. The peripheral retina was inspected, no tears [...] from anesthesia care and left the operative suitein good in good condition. They will be asked to maintain a p.r.n. position, and re-evaluated tomorrow. * Brief Op Note - Jessy Adame MD - 02/11/2022 10:38 AM CDT Operative Progress Note Surgical Team: Surgeon(s) and Role: * Jessy Adame MD - Primary * Jacek Joyce MD - Fellow Anesthesiologist: Fadi Mckeon MD PLACER MINER: Kacie Zelaya CRNA Team Member: Cassie Snow RN Scrub: Venus Cintron RN [place] Scrub: Sophia Sánchez RN DATE OF SURGERY : 02/11/2022 Preoperative Diagnosis: Pre-op Diagnosis * Cystoid macular edema of both eyes [H35.353] Postoperative Diagnosis: Post-op Diagnosis * Cystoid macular edema of both eyes [H35.353] Procedure(s): Procedure(s) (LRB): VITRECTOMY - 25 GAUGE (Left) EXCHANGE - AIR/FLUID (Left) Operative Findings: Vitreous debris left eye Estimated Blood Loss: 0 mL Intraoperative Fluids: 300 mls Specimens: No specimen collected in procedure Implants: Nothing was implanted during the procedure Blood/Blood Products Transfused: 0 mls Complications: None Condition on Discharge from the operating room was stable Jessy Adame MD Date: 02/11/2022 Time: 11:02 AM TEACHING ATTESTATION : I was present and directly participated in the entire procedure (including opening and closing). * Pre-Procedure Instructions - Saida Anderson NP - 02/04/2022 9:44 AM CDT [facility] Location: [facility] The night before your surgery: * Do [...] with you on the day of surgery. Outpatient Surgery: * You must have a [...] be cared for in the hospital overnight. Instructions For Your Medications: Pre-Surgery Instructions: Medication Instructions aspirin 81 mg enteric coated tablet Take morning of surgery atenoloL (TENORMIN) 25 mg tablet Take morning of surgery calcium carbonate/vitamin D3 (CALTRATE 600 PLUS D ORAL) Don't take on day of surgery coenzyme Q10 200 mg capsule Don't take on day of surgery FLUoxetine (PROzac) 20 mg capsule Take morning of surgery folic acid (FOLVITE) 1 mg tablet Don't take on day of surgery hydrOXYchloroQUINE (PLAQUENIL) 200 mg tablet Take morning of surgery lisinopriL (PRINIVIL,ZESTRIL) 40 mg tablet Take morning of surgery methotrexate 2.5 mg tablet Take as prescribed multivitamin with minerals tablet Stop taking 1 week prior to surgery sulfaSALAzine EN (AZULFIDINE EN) 500 mg EC tablet Don't take on day of surgery turmeric root extract 500 mg capsule Stop taking 1 week prior to surgery valACYclovir (Valtrex) 500 mg tablet Take morning of surgery vit J-U-wqmxos-zinc-lutein (PreserVision Lutein) 226-90-0.8-5 mg capsule Stop taking 1 week prior to surgery zinc 50 mg tablet Don't take on day of surgery General Instructions For Medications: * Stop all of these medications 5 days prior to your surgery: excedrin, motrin, advil, ibuprofen, aleve, naproxen, meloxicam, celebrex, [...] for COVID-19. * Perioperative Nursing Note - Jo-Ann Pearce RN - 02/03/2022 5:38 PM CDT [facility] Planning Perioperative Nursing Note Telephone Preoperative Evaluation ([facility]) - TELEPHONE ONLY, NO PHYSICAL EXAM Date: 02/03/22 Vitals: 02/03/22 1720 Weight: 61.2 kg (135 lb) Height: 160 cm (5' 3 ) 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: Social History Tobacco Use Smoking Status Never Passive exposure: Never Smokeless Tobacco Never Substance and Sexual Activity Drug Use No Alcohol Use Q1: How often do you have a drink containing alcohol?: Monthly or less Q2: How many drinks containing alcohol do you have on a typical day when you are drinking?: 1 or 2 Q3: How often do you have six or more drinks on one occasion?: Never Outpatient Medications Marked as Taking for the 02/11/22 encounter (Hospital Encounter) Medication Sig Dispense Refill aspirin 81 mg enteric coated tablet Take 81 mg by mouth 2 (two) times a week and Thu atenoloL (TENORMIN) 25 mg tablet TAKE 1 TABLET(25 MG) BY MOUTH DAILY (Patient taking differently: Take 25 mg by mouth every morning) 90 tablet 1 calcium carbonate/vitamin D3 (CALTRATE 600 PLUS D ORAL) Take 1 tablet by mouth every morning coenzyme Q10 200 mg capsule Take 200 mg by mouth every morning FLUoxetine (PROzac) 20 mg capsule Take 1 capsule (20 mg total) by mouth 2 (two) times a day (Patient taking differently: Take 20 mg by mouth 2 (two) times a day) 180 capsule 1 folic acid (FOLVITE) 1 mg tablet Take 2 tablets (2,000 mcg total) by mouth daily (Patient taking differently: Take 2,000 mcg by mouth every morning) 180 tablet 3 hydrOXYchloroQUINE (PLAQUENIL) 200 mg tablet Take 1 tablet (200 mg total) by mouth daily (Patient taking differently: Take 200 mg by mouth every morning) 90 tablet 2 lisinopriL (PRINIVIL,ZESTRIL) 40 mg tablet TAKE 1 TABLET DAILY (Patient taking differently: Take 40mg by mouth every morning) 90 tablet 1 methotrexate 2.5 mg tablet TAKE 8 TABLETS BY MOUTH ONCE A WEEK DIRECTED (Patient taking differently: Take 20 mg by mouth every 7 days (8 tablets) ) 96 tablet 0 multivitamin with minerals tablet Take 1 tablet by mouth every morning sulfaSALAzine EN (AZULFIDINE EN) 500 mg EC tablet TAKE 2 TABLETS TWO TIMES A DAY (Patient taking differently: Take 1,000 mg by mouth 2 (two) times a day) 360 tablet 1 turmeric root extract 500 mg capsule Take 500 mg by mouth every morning valACYclovir (Valtrex) 500 mg tablet Take 1 tablet (500 mg total) by mouth daily (Patient taking differently: Take 500 mg by mouth every morning) 90 tablet 2 vit T-P-aqnbxr-zinc-lutein (PreserVision Lutein) 226-90-0.8-5 mg capsule Take 1 tablet by mouth every morning zinc 50 mg tablet Take 50 mg by mouth every morning [DISCONTINUED] albuterol HFA (ProAir HFA) 90 mcg/actuation inhaler Inhale 2 puffs every 4 (four) hours as needed for wheezing or shortness of breath 8.5 g 0 Implants No active implants to display in this view. SKIN Piercings Remaining: Yes Wound (LDAs) Type of Wound (LDA): (none) SCREENINGS [place] index score: 100 NUTRITION PATIENT CARE PLANNING Advance Directives (For Healthcare) Have you reviewed your Advance Directive and is it valid for this stay?: Yes Advance Directive: Patient has advance directive, copy not in chart Advance Directive not in Chart: (Encouraged to bring copy dos) Assistive Devices/DME: Eyeglasses (Reading glasses) Hearing - Right Ear: Functional Hearing - Left Ear: Functional Discharge Planning Type of Residence: Private residence Living Arrangements: Spouse/significant other Support Systems: Spouse/significant other Assistance Needed: Christiano/ / Casting Sorter and helper Patient expects to be discharged to:: Private residence HOME THERAPY TEACHER NO COVID Screening Covid-19 Screening Have you been exposed to or tested positive for COVID-19 within the last 10 days?: No Have you previously tested positive for COVID-19? No Have you had a COVID -19 exposure within the past 14 days? No Were both or all people exposed wearing masks (cloth, isolation, surgical or N95)? N/A TESTING PLAN-See Instructions for plan We recommend you Self-Isolate after COVID Testing: Stay at home, if possible until your surgery date. Maintain a 6 foot distance from other people (social distancing). Avoid touching your eyes, nose and mouth with unwashed hands. Wash your hands often with soap and water for at least 20 seconds. Use an alcohol- based hand tanker driver that contains at least 60% alcohol if soap and water are not available. ADDITIONAL COMMENTS/ FOLLOW UP * Pre-Procedure Instructions - Jo-Ann Pearce RN - 02/03/2022 5:30 PM CDT [facility] ([facility]) PRE-SURGICAL NURSING INSTRUCTIONS Telephone Assessment General Information Discussed with Patient: Surgery location provided to patient. Arrival time and surgical time will be provided to the patient by their surgeon. You should wear clothing that is clean, loose, comfortable and easy to get in and out of on the dayof surgery. You should leave your valuables and any jewelry at home. No metal or piercings are allowed in the operating room. You should bring your insurance card, a photo ID (example: Casting Sorter's License) and a method of payment for any insurance copay, deductible or copay for discharge medications. You should bring a complete, up-to-date list of all your medications on the day of surgery, including any over the counter medications or supplements you may take. You should bring your Advanced Directive and/or Living Will with you on the day of surgery if you have not verified a copy is already in your Epic Chart. If you are having surgery at [facility], please arrive on the [...] Pathway to Excellent Care by the followinglink: [email or web address] How To Prepare Your Skin For Surgery [...] creams, powders, Vaseline or any non-essential products. Place clean linens on your bed the night before surgery. Shaving: You may shave your face, legs and underarms during your evening shower. Avoid shaving on the day of surgery. COVID TESTING PLAN (if applicable): Please note, the below is the Pre-Procedure COVID Testing Plan (if applicable) for the Center for Preoperative Assessment & Planning for Anesthesia. Surgeon's offices may require additional testing. If so, the surgeon's office will reach out to the patient to discuss further testing. Patient's COVID-19 vaccination status: Up to date with 3 mRNA vaccines. Documentation of vaccination status is available in the Epic Immunization tab. COVID Test Plan: COVID Test not indicated related to patient is up to date on COVID 19 vaccine(s) and booster, if eligible.. If you are going to a [facility] Testing Site for COVID testing, please arrive at least 30 minutes PRIOR to lab closing time. Please contact lab site for updated hours as they may change without notice or on holidays. We recommend you Self-Isolate after COVID Testing: Stay at home, if possible, until your surgery date. Maintain a 6 foot distance from other people (social distancing). Avoid touching your eyes, noseand mouth with unwashed hands. Wash your hands often with soap and water for at least 20 seconds. Use an alcohol- based hand tanker driver that contains at least 60% alcohol if soap and water are not available. These are general guidelines, but if have been told by a physician that you should not perform any of the above, please follow physician's guidelines. If you have questions, please call the CPAP Staff at [phone], Thursday-Thursday 8am-4:30pm. All patients should read the below section: All visitors/patients are being asked to wear a clean face mask when entering the hospital. COVID 19 Updates & Visitor Policy: Please access [email or web address] for the most updated information. Information on [facility]: Please view [email or web address] (Patient & Visitor Information) for additional details regarding Advanced Directive forms, AWARE, directions, parking information, lodging, Internet access, dining and more. Information on [facility] or [facility] ([facility]): Please view [email or web address] (Patient and Visitor Information) for parking/directions and more. For MyChart information, to activate account or password recovery, please go to [email or web address] or call [phone] (toll-free: [phone]). Information for Suicide Prevention: National Suicide Prevention Lifeline (8-657- 014-AZHS (9459)). Surgery Times: For patients having surgery @ [facility], [facility] or [facility] ([facility]), if your surgeon's office has not notified you of your surgery time by NOON THE BUSINESS DAY BEFORE your surgery, please call [phone] and ask for your surgeon's office Dr. Jessy Adame . documented in this encounter Plan of Treatment Not on file documented as of this encounter Procedures Procedure Name Priority Date/Time Associated Diagnosis Comments EXCHANGE - AIR/FLUID 02/11/2022 10:20 AM CDT Cystoid macular edema of both eyes VITRECTOMY - 25 GAUGE 02/11/2022 10:20 AM CDT Cystoid macular edema of both [...] For priming tubing and/or flushing, Starting on Thu02/11/22 at 0948, Pre-Op, 0-250 ml/hr to flush line after IV infusions when no maintenance IV ordered. Infuse 30mL at the same rate as the secondary infusion. Run as primary IV, not intended for KVO. Lactated Ringer's (LR) infusion 30 mL/hr, intravenous, Continuous, Starting on Thu02/11/22 at 1030 Rate/Dose Verify 02/11/2022 10:15 AM CDT 30 mL/hr New Bag 02/11/2022 9:53 AM CDT 30 mL/hr 30 mL/hr phenylephrine (MYDFRIN) 2.5 % ophthalmic solution 1 drop 1 drop, left eye, Every 5 min, First dose on Thu02/11/22 at 1030, For 3 doses, Pre-Op, Indications: Perioperative MydriasisIndications:Perioperative Mydriasis Given 02/11/2022 10:0 2 AM CDT 1 drop Given 02/11/2022 9:58 AM CDT 1 drop Given 02/11/2022 9:52 AM CDT 1 drop sodium chloride 0.9% flush 0.5-20 mL 0.5-20 mL, intra-catheter, Every 8 hours scheduled, First dose on Thu02/11/22 at 1400, Pre-Op, Flush volume based on line type and size. sodium chloride 0.9% flush 0.5-20 mL 0.5-20 mL, intra-catheter, As needed, line care, Starting on Thu02/11/22 at 0948, Pre-Op, Flush volume based on line type and size. Flush before and after each use. tropicamide (MYDRIACYL) 1 % ophthalmic solution 1 drop 1 drop, left eye, Every 5 min, First dose on Thu02/11/22 at 1030, For 3 doses, Pre-Op, Indications: Perioperative MydriasisIndications:Perioperative Mydriasis Given 02/11/2022 10:0 2 AM CDT 1 drop Given 02/11/2022 9:57 AM CDT 1 drop Given 02/11/2022 9:52 AM CDT 1 drop documented in this encounter Discontinued Medications Medication Sig Discontinue Reason Start Date End Da te albuterol HFA (ProAir HFA) 90 mcg/actuation inhaler Inhale 2 puffs every 4 (four) hours as needed for wheezing or shortness of breath Error 05/15/2020 02/03/2022 documented as of this encounter Historical Medications * This list may reflect changes made after this encounter. vit F-N-tfaopg-zinc-l utein (PreserVision Lutein) 226-90-0.8-5 mg capsuleIndication s:Eye support Take 1 tablet by mouth 2 (two) times a day multivitamin with minerals tabletIndications :Vitamin Deficiency Prevention Take 1 tablet by mouth every morning calcium carbonate/vitamin D3 (CALTRATE 600 PLUS D ORAL) Take 1 tablet by mouth every morning 08/29/2022 coenzyme Q10 200 mg capsule Take 1 capsule (200 mg total) by mouth every morning 08/06/2022 turmeric root extract 500 mg capsule Take 500 mg by mouth every morning 08/29/2022 zinc 50 mg tablet Take 50 mg by mouth every morning 08/29/2022 added in this encounter Active and Recently Administered Medications Times are shown in CDT. Scheduled Medication Order 02/09/2022 02/10/2022 02/11/2022 acetaminophen (TYLENOL) tablet 500 mg 500 mg, oral, Once, On Thu02/11/22 at 1230, For 1 dose, Phase I, When able to tolerate PO., Indications: Pain phenylephrine (MYDFRIN) 2.5 % ophthalmic solution 1 drop (COMPLETED) 1 drop, left eye, Every 5 min, First dose on Thu02/11/22 at 1030, For 3 doses, Pre-Op, Indications: Perioperative Mydriasis 0952 (Given - Provid er: Yisel Barrios RN)0958 (Given - Provider: Yisel Barrios RN)1002 (Given - Provider: Yisel Barrios RN) sodium chloride 0.9% flush 0.5-20 mL(Linked Group 1) 0.5-20 mL, intra-catheter, Every 8 hours scheduled, First dose on Thu02/11/22 at 1400, Pre-Op, Flush volume based on line type and size. tropicamide (MYDRIACYL) 1 % ophthalmic solution 1 drop (COMPLETED) 1 drop, left eye, Every 5 min, First dose on Thu02/11/22 at 1030, For 3 doses, Pre-Op, Indications: Perioperative Mydriasis 0952 (Given - Provid er: Yisel Barrios RN)0957 (Given - Provider: Yisel Barrios RN)1002 (Given - Provider: Yisel Barrios RN) Continuous Medication Order 02/09/2022 02/10/2022 02/11/2022 Lactated Ringer's (LR) infusion 30 mL/hr, intravenous, Continuous, Starting on Thu02/11/22 at 1030 0953 (New Bag - Prov ider: Yisel Barrios RN)1015 (Rate/Dose Verify - Provider: Kacie Zelaya CRNA)1030 (Due)1059 (Anesthesia Volume Adjustment - Provider: Kacie Zelaya CRNA)1601 (Due: Stopped) Lactated Ringer's (LR) infusion 125 mL/hr, intravenous, Continuous, Starting on Thu02/11/22 at 1230, Phase I, PRN Medication Order 02/09/2022 02/10/2022 02/11/2022 albuterol 2.5 mg/0.5 mL nebulizer solution 2.5 mg 2.5 mg, nebulization, Once as needed, wheezing, Starting on Thu02/11/22 at 1155, For 1 dose, Phase I, Notify Anesthesiologist. , Indications: Bronchospastic Pulmonary Disease balanced salt soln no.2 irrig. (BSS) intraocular solution (CANCELED) As needed, Starting on Thu02/11/22 at 1059, Intra-Op 1059 (Given - Provid er: Jessy Adame MD) BSS-EPINEPHrine 0.5 mg preservative free intraocular solution (total volume 500 mL) (CANCELED) As needed, Starting on Thu02/11/22 at 1059, Intra-Op 1059 (Given - Provid er: Jessy Adame MD) Carrier Fluids for Secondary Infusion - 0.9% Sodium Chloride(Linked Group 1) 30 mL, intravenous, As needed, For priming tubing and/or flushing, Starting on Thu02/11/22 at 0948, Pre-Op, 0-250 ml/hr to flush line after IV infusions when no maintenance IV ordered. Infuse 30mL at the same rate as the secondary infusion. Run as primary IV, not intended for KVO. diphenhydrAMINE (BENADRYL) injection 12.5 mg 12.5 mg, intravenous, Every 15 min PRN, itching, Starting on Thu02/11/22 at 1155, For 2 doses, Phase I, Max cumulative dose 50 mg., Indications: Itching fentaNYL (SUBLIMAZE) preservative free injection 50 mcg 50 mcg, intravenous, Once as needed, uncontrolled pain on PACU admission, Starting on Thu02/11/22 at 1155, For 1 dose, Phase I, Then proceed to PACU 1st line analgesic., Indications: Pain HYDROmorphone (DILAUDID) injection 0.2 mg 0.2 mg, intravenous, Administer over 2 Minutes, Every 10 min PRN, 1st line for pain, Starting on Thu02/11/22 at 1155, Phase I, Notify Anesthesiologist if total PACU dose reaches 2 mg and pain score 5/10 or more., Indications: Pain lidocaine 1%, bupivicaine 0.375%, hyaluronidase 75 units preservative free ophthalmic solution (total volume 5 mL) (CANCELED) As needed, Starting on Thu02/11/22 at 1059, Intra-Op 1059 (Given - Provid er: Jessy Adame MD) meperidine (DEMEROL) preservative free injection 12.5 mg 12.5 mg, intravenous, Administer over 5 Minutes, Every 10 min PRN, shivering, Starting on Thu02/11/22 at 1155, For 2 doses, Phase I, Max cumulative dose 25 mg., Indications: Shivering naloxone (NARCAN) 0.4 mg/mL injection 0.04-0.4 mg 0.04-0.4 mg, intravenous, Once as needed, other, excessive sedation/respiratory depression, Starting on Thu02/11/22 at 1155, For 1 dose, Phase I, Dilute 0.4 [...] Once as needed, nausea, vomiting, Starting on Thu02/11/22 at 1155, For 1 dose, Phase I, Proceed to prochlorperazine if ondansetron has been given within the last 6 hours. prochlorperazine (COMPAZINE) injection 10 mg 10 mg, intravenous, Administer over 2 Minutes, Once as needed, nausea, vomiting, Starting on Thu02/11/22 at 1155, For 1 dose, Phase I, If nausea/vomiting not relieved by ondansetron within 30 minutes or if ondansetron has been given within the last 6 hours. sodium chloride 0.9% flush 0.5-20 mL(Linked Group 1) 0.5-20 mL, intra-catheter, As needed, line care, Starting on Thu02/11/22 at 0948, Pre-Op, Flush volume based on line type and size. Flush before and after each use. tetracaine (PF) (ALTACAINE) 0.5 % ophthalmic solution (CANCELED) As needed, Starting on Thu02/11/22 at 1100, Intra-Op, Indications: Administration of Corneal Anesthesia 1100 (Given - Provid er: Jessy Adame MD) tobramycin-dexAMETHasone (TOBRADEX) 0.3-0.1 % ophthalmic suspension (CANCELED) As needed, Starting on Thu02/11/22 at 1100, Intra-Op 1100 (Given - Provid er: Jessy Adame MD) Linked Groups Order Group 1: Saline lock IV (CANCELED) Routine, Once (Routine), On Thu02/11/22 at 0949, For 1 occurrence, Pre-Op And sodium chloride 0.9% flush 0.5-20 mLJump to med 0.5-20 mL, intra-catheter, Every 8 hours scheduled, First dose on Thu02/11/22 at 1400, Pre-Op, Flush volume based on line type and size. And sodium chloride 0.9% flush 0.5-20 mLJump to med 0.5-20 mL, intra-catheter, As needed, line care, Starting on Thu02/11/22 at 0948, Pre-Op, Flush volume based on line type and size. Flush before and after each use. And Carrier Fluids for Secondary Infusion - 0.9% Sodium ChlorideJump to med 30 mL, intravenous, As needed, For priming tubing and/or flushing, Starting on Thu02/11/22 at 0948, Pre-Op, 0-250 ml/hr to flush line after IV infusions when no maintenance IV ordered. Infuse 30mL at the same rate as the secondary infusion. Run as primary IV, not intended for KVO. documented in this encounter Orders Medications Ordered That Elmo ht Not Have Been Administered Count Last Ordered Date First Ordered Date acetaminophen (TYLENOL) tablet 500 mg 1 04/2021 albuterol 2.5 mg/0.5 mL nebu lizer solution 2.5 mg 1 02/11/2022 balanced salt soln no.2 irri g. (BSS) intraocular solution 1 02/11/2022 BSS-EPINEPHrine 0.5 mg prese rvative free intraocular solution (total volume 500 mL) 1 02/11/2022 Carrier Fluids for Secondary Infusion - 0.9% Sodium Chloride 2 02/11/2022 diphenhydrAMINE (BENADRYL) i njection 12.5 mg 1 02/11/2022 fentaNYL (SUBLIMAZE) preserv ative free injection 50 mcg 1 02/11/2022 HYDROmorphone (DILAUDID) injection 0.2 mg 1 02/11/2022 Lactated Ringer's (LR) infusion 1 lidocaine 1%, bupivicaine 0. 375%, hyaluronidase 75 units preservative free ophthalmic solution (total volume 5 mL) 1 02/11/2022 lidocaine PF (XYLOCAINE) 10 mg/mL (1 %) preservative free injection 2-10 mg 1 02/11/2022 meperidine (DEMEROL) preserv ative free injection 12.5 mg 1 02/11/2022 naloxone (NARCAN) 0.4 mg/mL injection 0.04-0.4 mg 1 02/11/2022 ondansetron (ZOFRAN) injection 4 mg 1 02/11 prochlorperazine (COMPAZINE) injection 10 mg 1 02/11/2022 sodium chloride 0.9% flush 0.5-20 mL 3 04/2021 tetracaine (PF) (ALTACAINE) 0.5 % ophthalmic solution 1 02/11/2022 tobramycin-dexAMETHasone (TO BRADEX) 0.3-0.1 % ophthalmic suspension 1 02/11/2022 Nursing Count Last Ordered Date First Orde red Date DISCHARGE ACTIVITY 3 02/11/2022 DISCHARGE CALL PROVIDER 2 02/11/2022 OTHER FOLLOW UP 1 02/11/2022 Discharge Count Last Ordered Date First Orde red Date DISCHARGE PATIENT 1 02/11/2022 documented in this encounter Care Teams Supervisor Assembly Department Relationship Specialty Start Date End Date Sylvia Dawson PA [address] [place] [address] PCP - General Internal Medicine 01/05/20 Erica Rodrigues MD [address] [facility] [facility] [address] [place] [address] Radiation Oncologist Radiation Oncology 10/25/18 Gasper Kaba MD [address] [place] [address] Surgeon Surgical Oncology 10/25/18 Brandy Aguirre CNS [address] [place] [address] Nurse Practitioner Certified Clinical Nurse Specialist 10/25/18 Jo-Ann Morrow, PhD [address] [place] [address] Nurse Practitioner Radiation Oncology 10/25/18 Christina Louis HOME PLANNING CONSULTANT SALESPERSON [address] [place] [address] Nurse Practitioner Medical Oncology 10/25/18 documented as of this encounter
--- OUTSIDE RECORDS SUMMARY | 2024-04-24 05:52 | XMS_ITS | Encounter Summary ---
Author Organization [facility] Address [address] [place] [address] Phone Care Team Providers Care Liaison Inspection Laboratory Assistant Name Role Phone Erica Rodrigues MD Unavailable Gasper Kaba MD Unavailable [phone] Brandy Aguirre TERRA COTTA SETTER Unavailable [phone] Jo-Ann Morrow PhD Unavailable [phone] Christina Louis RESIDENT ADVISOR Unavailable Sylvia Dawson Primary Care Provider [phone] Encounter Details Date Type Department Care Team (Late st Contact Info) Description 03/25/2022 Orders Only [facility] Rheumatology [address] [facility] [address] [place] [address] Ximena Ellison RMA High risk [...] on file Legal Sex Female 3:42 AM I&C TECH Gender Identity Not on file Sexual Orientation Not on file 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 Not on file Not on file documented as of this encounter Miscellaneous Notes * Addendum Note - Lucinda Gibson - 03/25/2022 9:19 AM CSTAddended by: LUCINDA GIBSON on: 08/06/2022 01:06 PM Modules accepted: Orders * Addendum Note - Lucinda Gibson - 03/25/2022 9:19 AM CSTAddended by: LUCINDA GIBSON on: 08/06/2022 01:07 PM Modules accepted: Orders documented in this encounter Plan of Treatment Not on file documented as of this encounter Visit Diagnoses Diagnosis High risk medication use- Primary documented in this encounter Care Teams Liaison Inspection Laboratory Assistant Relationship Specialty Start Date End Date Sylvia Dawson PA [facility] [facility] [address] [place] [address] PCP - General Internal Medicine 01/05/20 Erica Rodrigues MD [address] [facility] [address] [place] [address] Radiation Oncologist Radiation Oncology 10/25/18 Gasper Kaba MD [address] [facility] [address] [place] [address] Surgeon Surgical Oncology 10/25/18 Brandy Aguirre CNS [address] [facility] [address] [place] [address] Nurse Practitioner Certified Clinical Nurse Specialist 10/25/18 Jo-Ann Morrow, PhD [address] [facility] [address] [place] [address] Nurse Practitioner Radiation Oncology 10/25/18 Christina Louis NP [address] [facility] [address] [place] [address] Nurse Practitioner Medical Oncology 10/25/18 documented as of this encounter
--- OUTSIDE RECORDS SUMMARY | 2024-04-24 05:52 | XMS_ITS | Encounter Summary ---
Author Organization [facility] Address [address] [place] [address] Care Team Providers Care Emergency Room Orderly Name Role Phone Erica Rodrigues MD Unavailable Gasper Kaba MD Unavailable Brandy Aguirre SYSTEM SUPPORT DEVELOPER Unavailable [phone] Jo-Ann Morrow PhD Unavailable [phone] Christina Louis LIQUID HYDROGEN PLANT OPERATOR Unavailable [phone] Sylvia Dawson Primary Care Provider [phone] Encounter Details Date Type Department Care Team (Late st Contact Info) Description 01/13/[address] [facility] Family Medicine [address] [place] [address] Sylvia Dawson PA [address] [place] [address] Stress Social History Tobacco Use Types Packs/Day Years Used Date Smoking Tobacco: Never Smokeless Tobacco: Never Alcohol Use Standard Drinks/Week Comments Yes 1 (1 standard drink = 0.6 oz pur e alcohol) social AUDIT-C Answer Date Recorded Q1: How often do you have a drink containing alc ohol? Monthly or less 10/17/2020 Q2: How many drinks containi ng alcohol do you have on a typical day when you are drinking? 1 or 2 10/17/2020 Q3: How often do you have si x or more drinks on one occasion? 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 Not on file Not on file Not on file documented as of this encounter Ordered Prescriptions Prescription Sig Dispense Quantity Refills Last Filled Start Date End Date FLUoxetine (PROzac) 20 mg capsuleIndications :Stress Take 1 capsule (20 mg total) by mouth 2 (two) times a day 180 capsule 1 01/13/2022 documented in this encounter Plan of Treatment Not on file documented as of this encounter Visit Diagnoses Diagnosis Stress Other psychological or physical stress, not elsewhere classified documented in this encounter Discontinued Medications Medication Sig Discontinue Reason Start Date End Da te FLUoxetine (PROzac) 20 mg capsuleIndications:Stres s Take 1 capsule (20 mg total) by mouth daily Reorder 08/26/2021 01/13/2022 documented as of this encounter Care Teams Emergency Room Orderly Relationship Specialty Start Date End Date Sylvia Dawson PA [facility] [address] [place] [address] PCP - General Internal Medicine 01/05/20 Erica Rodrigues MD [address] [facility] [address] [facility] [address] [place] [address] Radiation Oncologist Radiation Oncology 10/25/18 Gasper Kaba MD [address] [facility] [address] [facility] [address] [place] [address] Surgeon Surgical Oncology 10/25/18 Brandy Aguirre CNS [address] [facility] [address] [facility] [address] [place] [address] Nurse Practitioner Certified Clinical Nurse Specialist 10/25/18 Jo-Ann Morrow, PhD [address] [facility] [address] [place] [address] Nurse Practitioner Radiation Oncology 10/25/18 Christina Louis, LIQUID HYDROGEN PLANT OPERATOR [address] [facility] [address] [place] [address] Nurse Practitioner Medical Oncology 10/25/18 documented as of this encounter
--- OUTSIDE RECORDS SUMMARY | 2024-04-24 05:52 | XMS_ITS | Encounter Summary ---
Author Organization [facility] Address [address] [place] [address] Phone Care Team Providers Care Er Manager Name Role Phone Erica Rodrigues MD Unavailable Gasper Kaba MD Unavailable Brandy Aguirre CLAIMS SERVICE ADJUSTOR Unavailable [phone] Jo-Ann Morrow PhD Unavailable [phone] Christina Louis WANIGAN CLERK Unavailable [phone] Sylvia Dawson Primary Care Provider [phone] Encounter Details Date Type Department Care Team (Late st Contact Info) Description 02/03/2022 Telephone [facility] Ophthalmology [address] [facility] 6th [place] [address] Celeste Gibbons, LEONELA Social History Tobacco Use Types Packs/Day Years Used Date Smoking Tobacco: Never Passive Smoke Exposure: Never Smokeless Tobacco: Never Alcohol Use Standard Drinks/Week Comments Yes 1 (1 standard drink = 0.6 oz pur e alcohol) social AUDIT-C Answer Date Recorded Q1: How often do you have a drink containing alc ohol? Monthly or less 02/03/2022 Q2: How many drinks containi ng alcohol do you have on a typical day when you are drinking? 1 or 2 02/03/2022 Q3: How often do you have si x or more drinks on one occasion? 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 Also, informed the patient that surgery timescan change at the last minute due to urgent add on etc., to please be flexible. Reminded them as well, that they will need someone over the age of 18 accompany them to and from surgery and remain with them for the first 24hours after the procedure. Surgery Date: 02/11 Arrival Time: 12 pm Surgery Start Time: 2 pm Location: [address] documented in this encounter Plan of Treatment Not on file documented as of this encounter Visit Diagnoses Not on filedocumented in this encounter Care Teams Er Manager Relationship Specialty Start Date End Date Sylvia Dawson PA [address] [facility] [address] [place] [address] PCP - General Internal Medicine 01/05/20 Erica Rodrigues MD [address] [place] [address] Radiation Oncologist Radiation Oncology 10/25/18 Gasper Kaba MD [address] [place] [address] Surgeon Surgical Oncology 10/25/18 Brandy Aguirre CNS [address] [facility] [address] [place] [address] Nurse Practitioner Certified Clinical Nurse Specialist 10/25/18 Jo-Ann Morrow, PhD [address] [facility] [address] [place] [address] Nurse Practitioner Radiation Oncology 10/25/18 Christina Louis, WANIGAN CLERK [address] [facility] [address] [place] [address] Nurse Practitioner Medical Oncology 10/25/18 documented as of this encounter
--- OUTSIDE RECORDS SUMMARY | 2024-04-24 05:52 | XMS_ITS | Encounter Summary ---
Author Organization [facility] Address [address] [place] [address] Care Team Providers Care Individual Pension Adviser Name Role Phone Erica Rodrigues MD Unavailable Gasper Kaba MD Unavailable Brandy Aguirre BED SETTER Unavailable [phone] Jo-Ann Morrow PhD Unavailable [phone] Christina Louis PRODUCTION ROUSTABOUT Unavailable [phone] Sylvia Dawson Primary Care Provider [phone] Encounter Details Date Type Department Care Team (Late st Contact Info) Description 01/07/2022 Orders Only [facility] Family Medicine [address] [place] [address] Sylvia Dawson PA [address] [place] [address] Recurrent cold sores Social History Tobacco Use Types Packs/Day Years [...] on file 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 Gender Identity Not on file Sexual Orientation Not on file 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 on file Not on file Not on file documented as of this encounter Ordered Prescriptions Prescription Sig Dispense Quantity Refills Last Filled Start Date End Date valACYclovir (Valtrex) 500 mg tabletIndications: Recurrent cold sores Take 1 tablet (500 mg total) by mouth daily 90 tablet 2 01/07/2022 02/27/2022 documented in this encounter Plan of Treatment Not on file documented as of this encounter Visit Diagnoses Diagnosis Recurrent cold sores Herpes simplex without mention of complication documented in this encounter Discontinued Medications Medication Sig Discontinue Reason Start Date End Da te valACYclovir (Valtrex) 500 mg tabletIndications:Recurr ent cold sores Take 1 tablet (500 mg total) by mouth daily Reorder 05/22/2021 01/07/2022 documented as of this encounter Care Teams Individual Pension Adviser Relationship Specialty Start Date End Date Sylvia Dawson PA [facility] [facility] [address] [place] [address] PCP - General Internal Medicine 01/05/20 Erica Rodrigues MD [address] [address] Radiation Oncologist Radiation Oncology 10/25/18 Gasper Kaba MD [address] [facility] [address] [facility] [address] [place] [address] Surgeon Surgical Oncology 10/25/18 Brandy Aguirre CNS [address] [facility] [address] [facility] [address] [place] [address] Nurse Practitioner Certified Clinical Nurse Specialist 10/25/18 Jo-Ann Morrow, PhD [address] [facility] [address] [place] [address] Nurse Practitioner Radiation Oncology 10/25/18 Christina Louis PRODUCTION ROUSTABOUT [address] [facility] [address] [place] [address] Nurse Practitioner Medical Oncology 10/25/18 documented as of this encounter
--- OUTSIDE RECORDS SUMMARY | 2024-04-24 05:52 | XMS_ITS | Encounter Summary ---
Author Organization [facility] Healthcare Address [address] [place] [address] Care Team Providers Care Care Director Name Role Phone Erica Rodrigues MD Unavailable Gasper Kaba MD Unavailable Brandy Aguirre LOCOMOTIVE REPAIRER DIESEL Unavailable [phone] Jo-Ann Morrow PhD Unavailable [phone] Christina Louis NP Unavailable [phone] Sylvia Dawson Primary Care Provider [phone] Reason for Visit * Diagnostic Imaging (Routine) - Closed Specialty Diagnoses / Procedures Referred By Contac t Referred To Contact Radiology Diagnoses Cerebral aneurysm, nonruptured Procedures IR Angio Selective Internal Carotid Left IR Angio Selective Carotid LOCOMOTIVE REPAIRER DIESEL Right Lizzie Green NP [address] [facility] [place] [address] [place] [address] Phone: tel: fax: [address] [phone] Referral ID Status Reason Start Date Expiration Date Visits Re quested Visits Authorized [id number] Closed 02/12/2022 03/14/2023 1 1 Encounter Details Date Type Department Care Team (Latest Contact Info) Description 03/12/2022 9:22 AM COMMUTATOR REPAIRER - 03/12/2022 11:59 PM COMMUTATOR REPAIRER Hospital Encounter [facility] Neuro Interventional Radiology [address] [place] [address] Abdiaziz Moss MD [address] [place] [address] Cerebral aneurysm, nonruptured Discharge Disposition: Discharge to [...] on file Legal Sex Female 3:42 AM COMMUTATOR REPAIRER Gender Identity Not on file Sexual Orientation Not on file 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 file Not on file Not on file documented as of this encounter Last Filed Vital Signs Vital Sign Reading Time Taken Comments Blood Pressure 140/75 03/12/2022 12:35 PM COMMUTATOR REPAIRER Pulse 53 03/12/2022 12:35 PM COMMUTATOR REPAIRER Temperature 36 ??C (96.8 ??F) 03/12/2022 11:25 AM COMMUTATOR REPAIRER Respiratory Rate 14 03/12/2022 11:25 AM COMMUTATOR REPAIRER Oxygen Saturation 99% 03/12/2022 12:35 PM COMMUTATOR REPAIRER Inhaled Oxygen Concentration - - Weight 61.2 kg (135 lb) 03/12/2022 9:39 AM COMMUTATOR REPAIRER Height 160 cm (5' 3 ) 03/12/2022 9:39 AM COMMUTATOR REPAIRER Body Mass Index 23.91 03/12/2022 9:39 AM COMMUTATOR REPAIRER documented in this encounter Discharge Instructions * Discharge Instructions* Trev Lindquist MD PhD - 03/12/2022 11:34 AM COMMUTATOR REPAIRER Neurointerventional Radiology Outpatient Discharge Instructions Diagnosis: aneurysm Procedure: cerebral angiography Discharge Instructions: Do not [...] to schedule a follow up appointment at [phone] [x] Please call for any of the following: [x] Any questions or problems [x] Hematoma (extreme bruising at the site) [x] Drainage from site [x] Fever [x] Bleeding If between Thursday-Thursday 7:30am-4:00pm, call [phone]. Otherwise, call [phone] and ask forthe on-call endovascular surgical neuroradiology (ESN) fellow. UTATOR REPAIRER documented in this encounter Medications at Time of Discharge multivitamin with minerals tabletIndication s:Vitamin Deficiency Prevention Take 1 tablet by mouth every morning vit D-I-ryubdf-zinc- lutein (PreserVision Lutein) 226-90-0.8-5 mg capsuleIndicatio ns:Eye support Take 1 tablet by mouth 2 (two) times a day aspirin 81 mg enteric coated tabletIndication s:can't recall why they put her on this Take 1 tablet (81 mg total) by mouth 2 (two) times a week Tues and Thu 2 atenoloL (TENORMIN) 25 mg tablet TAKE 1 TABLET(25 MG) BY MOUTH DAILY 90 tablet 1 03/10/2022 3 butalbital-aceta minophen-caffein e-codeine (FIORICET WITH CODEINE) 21-263-08-30 mg per capsule Take 1 capsule by mouth every 4 (four) hours as needed for headaches 20 capsule 02/28/2022 3 calcium carbonate/vitami n D3 (CALTRATE 600 PLUS D ORAL) Take 1 tablet by mouth every morning 3 coenzyme Q10 200 mg capsule Take 1 capsule (200 mg total) by mouth every morning 3 difluprednate (DUREZOL) 0.05 % dropsIndications :Cystoid macular edema of both eyes Administer 1 drop into the left eye 4 (four) times a day 10 mL 11 02/26/2022 2 dorzolamide (TRUSOPT) 2 % ophthalmic solutionIndicati ons:Cystoid [...] mouth daily 180 tablet 3 09/16/2021 3 hydrOXYchloroQUI NE (PLAQUENIL) 200 mg tablet [...] TIMES A DAY 360 tablet 1 10/09/2021 2 turmeric root extract 500 mg capsule Take [...] documented in this encounter H&P Notes * Trev Lindquist MD PhD - 03/12/2022 10:30 AM CST History and Physical Subjective Patient is a 61 y.o. female with chief complaint of cerebral aneurysm. HPI: Yesika Denney is a 61 y.o. 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 Her aneurysm appears to have grown on most recent MRA. She presents today for follow up diagnostic cerebral angiography. Past Medical History: Diagnosis Date Autoimmune disease (CMS/HCC) (HCC) Benign left breast lump 06/2002 biopsy showed fibrosis and hyperplasia Brain aneurysm Followed by Dr. Chaudhari: Every 3 years Breast cancer (CMS/HCC) (HCC) 2014 Cataract Depression Elevated cholesterol Hypertension Migraine Motion sickness sometimes on [place] RA (rheumatoid arthritis) ([facility]) Past Surgical History: Procedure Laterality Date BREAST BIOPSY Left 2002 benign BREAST LUMPECTOMY Right 2014 COLONOSCOPY 03/06/2020 CYST REMOVAL ENDOMETRIAL ABLATION 02/2007 EYE SURGERY HYSTEROSCOPY PORT PLACEMENT CHEST >5 YEARS N/A 01/17/2015 PORT REMOVAL N/A 04/10/2015 RHINOPLASTY 1985 THYROIDECTOMY, PARTIAL Left 1997 Dr. Demetris Aguilar TONSILLECTOMY 1983 TUBAL LIGATION 02/2007 (Not in a hospital admission) Allergies Allergen Reactions Adhesive Hives Paper tape [...] Stroke Paternal Grandmother Anesthesia problems Neg Hx Review of Systems: Review of systems per HPI and otherwise all other systems are negative Objective Vitals: Arrival Vitals [03/12/22 0939] Temp 36.6 ??C (97.8 ??F) Pulse 56 Resp 18 BP 140/78 SpO2 98 % Temp src Temporal Heart Rate Source Pulse Oximetry Patient Position BP Location FiO2 (%) 24hr Min/Max: Temp Min: 36.6 ??C (97.8 ??F) Max: 36.6 ??C (97.8 ??F) Pulse Min: 56 Max: 56 BP Min: 140/78 Max: 140/78 Resp Min: 18 Max: 18 SpO2 Min: 98 % Max: 98 % Most Recent : Vitals: 03/12/22 0939 BP: 140/78 Pulse: 56 Resp: 18 Temp: 36.6 ??C (97.8 ??F) SpO2: 98% No intake/output data recorded. No intake/output data recorded. Physical exam: Opens eyes spontaneously, regards, follows commands Oriented x3 PERRL, EOMI, face symmetric, tongue midline 5/5 strength, sensation intact to light touch No drift Distal pulses intact RRR Breathing well on RA Abdomen soft, nontender Lab/Radiology/Diagnostic Review: Imaging review: I have reviewed the result(s) of the patient's catheter angiogram from 2010 and hermost recent MRA. Assessment /Plan Active Problems: No Active Problems: There are no active problems currently on the Problem List. Please update the Problem List and refresh. This patient is stable to undergo today's planned procedure. UTATOR REPAIRER documented in this encounter Nursing Notes * Lui Jane RN - 03/12/2022 10:30 AM CST Pt. With complaints of left visual field flashes . Same as when pt. Had angiogram previously. MD Lindquist notified. OK to D/C patient. Right radial access site C/D/I. No new bleeding/bruising/hematoma UTATOR REPAIRER * Lui Jane RN - 03/12/2022 10:30 AM CST Pt. States vision is becoming more clear and back to baseline UTATOR REPAIRER documented in this encounter Plan of Treatment Not on file documented as of this encounter Procedures Procedure Name Priority Date/Time Associated Diagnosis Comments ANGIO SELECTIVE INTERNAL CAROTID LEFT Schedule Routine, Read Routine (OP Routine) 03/12/2022 11:12 AM COMMUTATOR REPAIRER Cerebral aneurysm, nonruptured documented in this encounter Results * IR Angio Selective Internal Carotid Left (03/12/2022 11:12 AM COMMUTATOR REPAIRER) Anatomical Region Laterality Modality Neck Left Radio Fluoroscop y 03/12/2022 12:4 0 PM COMMUTATOR REPAIRER Impressions 03/14/2022 9:42 AM COMMUTATOR REPAIRER Broad necked anterior communicating artery aneurysm measuring approximately 5.5 x 5.5 mm. PLAN: Patient okay to discharge home after TR band instructions complete. We will plan to have the patient return for WEB embolization in the near future. Dictated by: Trev Lindquist MD, PhD The radiology attending physician has personally reviewed this study, and had reviewed and/or edited this written report and agrees with it. Electronically signed by: Abdiaziz Moss M.D. 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 Patient presents for diagnostic cerebral angiogram. PROCEDURE: 1. ??Cerebral angiography: Right radial artery, left internal carotid artery, right internal carotid artery, right vertebral artery injections 2. ??3D reconstructions 3. ??Ultrasound-guided vascular access 4. ??Hemostatic device placement 5. ??DynaCT of the head with contrast ATTENDING SURGEON: Abdiaziz Moss MD. He was present for the entire procedure and interpreted images. ASSISTING SURGEON(S): Trev Lindquist MD Ph.D. All actively participated in catheter manipulation and were present in the room for the entire procedure. VESSELS ANGIOGRAMMED (in sequence): Left internal carotid artery, Right internal carotid artery, Right vertebral artery. DURATION OF PROCEDURE: Approximately 45 minutes. ANESTHESIA: Local anesthetic was administered subcutaneously to the puncture site with 1% Lidocaine. Conscious sedation with Versed and Fentanyl was given by the nurse under the supervision of the attending interventional neuroradiologist. Pre-, intra-, and post-conscious sedation monitoring records are available in the chart. MEDICATIONS: 1% Lidocaine SQ Sedation and Analgesia: Versed IV , Fentanyl IV Radial artery cocktail: Verapamil (2.5 mg), Nitroglycerin (200 mcg), and Heparin (3000 units) MATERIALS: 21-gauge needle 5 [place] Merit Prelude IDeal sheath 23cm and mini guidewire 5 [place] David 3 Chama catheter Terumo glidewire TR Band CONTRAST: Visipaque 320 106 mL ESTIMATED BLOOD LOSS: <30 mL TECHNIQUE: Prior to the procedure, the technical aspects of the procedure, as well as benefits, potential risks and alternate options, were explained to the patient and her in person. Specifically, the risks of cerebral infarction, hemorrhage, weakness, paralysis, sensory changes, vision decline/blindness, cranial nerve palsy, facial pain, anaphylaxis, renal failure, access site hematoma, arterial dissection, arterial pseudoaneurysm, arteriovenous fistula were discussed . Informed consent was obtained. After informed consent was obtained, the patient was brought to the angiography suite. Moderate sedation (intravenous fentanyl and midazolam) was administered under the direction of the attending physician with continuous monitoring by a trained nurse specialist independent of those performing the procedure. The right forearm was prepped and draped in the usual fashion. Access to the vascular system was gained in the usual way by a single-wall puncture of the right radial artery at the at the wrist ??under ultrasound guidance. Ultrasound images demonstrated a patent vessel and were stored to PACS.. ??The 5 [place] Merit Prelude IDeal sheath 23cm was then introduced into the right radial artery over the mini guidewire. A cocktail of Verapamil, Nitroglycerin, and Heparin was slowly injected into the right radial artery through the sheath over several minutes, with close monitoring of blood pressure. A Terumo Glidewire and 5 [place] David 3 Chama catheter were advanced into the aortic arch under fluoroscopic visualization and the catheter was formed over the aortic arch. Using fluoroscopic guidance, selective catheterization of the above mentioned vessels and digital angiograms were performed, centered over the head and neck with AP, lateral, and oblique views. 3D ROTATIONAL ANGIOGRAPHY OF THE LEFT INTERNAL CAROTID ARTERY : Rotational angiography was also performed from the guiding catheter in the left internal carotid artery for better delineation of the intracranial vascular anatomy. Three-dimensional angiographic images were processed on an independent workstation, and volume-rendered three-dimensional images were produced and reviewed by the attending physician. DynaCT of the head during injection of the left internal carotid artery was performed and cross-sectional images were generated and viewed by the attending neuroradiologist on a separate workstation. The catheter was then removed. The sheath was removed. Patent hemostasis was achieved by placement of a TR band. There were no immediate complications related to the procedure. FINDINGS: RIGHT INTERNAL CAROTID ARTERY, CEREBRAL: There is no evidence of aneurysm, focal stenosis, or early draining vein. No cross flow from anterior communicating artery is visualized. No posterior communicating artery is visualized on the right. In the distal right cervical segment of the internal carotid artery, a small irregularity with contrast stasis was observed which likely represents a small dissection. RIGHT EXTERNAL CAROTID ARTERY, CEREBRAL: There is no evidence of intracranial early venous drainage. LEFT INTERNAL CAROTID ARTERY, CEREBRAL: There is no focal stenosis or early draining vein. There is cross flow through the anterior communicating artery from left to right. . A superiorly and anteriorly projecting anterior communicating artery aneurysm is present. The left posterior communicating artery fills well. 3D ROTATIONAL ANGIOGRAPHY OF THE LEFT INTERNAL CAROTID ARTERY: 3D Rotational angiography with volume-rendered three-dimensional reconstruction on an independent workstation demonstrated and anterior communicating artery aneurysm. ??It has a broad neck and projects anteriorly, superiorly, and to the right with inflow from the left A1 segment. ??It measures approximately 5.5 x 5.5 mm. LEFT EXTERNAL CAROTID ARTERY, CEREBRAL: There is no evidence of intracranial early venous drainage. RIGHT VERTEBRAL ARTERY, CEREBRAL: There is no evidence of aneurysm, focal stenosis, or early draining vein. There was good contrast reflux down the left vertebral artery. Both posterior inferior cerebellar arteries demonstrate normal takeoffs from the distal ipsilateral vertebral arteries. Both P1 segments fill well. COMPLICATIONS: There were no immediate complications. 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 Patient presents for diagnostic cerebral angiogram. PROCEDURE: 1. Cerebral angiography: Right radial artery, left internal carotid artery, right internal carotid artery, right vertebral artery injections 2. 3D reconstructions 3. Ultrasound-guided vascular access 4. Hemostatic device placement 5. DynaCT of the head with contrast ATTENDING SURGEON: Abdiaziz Moss MD. He was present for the entire procedure and interpreted images. ASSISTING SURGEON(S): Trev Lindquist MD Ph.D. All actively participated in catheter manipulation and were present in the room for the entire procedure. VESSELS ANGIOGRAMMED (in sequence): Left internal carotid artery, Right internal carotid artery, Right vertebral artery. DURATION OF PROCEDURE: Approximately 45 minutes. ANESTHESIA: Local anesthetic was administered subcutaneously to the puncture site with 1% Lidocaine. Conscious sedation with Versed and Fentanyl was given by the nurse under the supervision of the attending interventional neuroradiologist. Pre-, intra-, and post-conscious sedation monitoring records are available in the chart. MEDICATIONS: 1% Lidocaine SQ Sedation and Analgesia: Versed IV , Fentanyl IV Radial artery cocktail: Verapamil (2.5 mg), Nitroglycerin (200 mcg), and Heparin (3000 units) MATERIALS: 21-gauge needle 5 [place] Merit Prelude IDeal sheath 23cm and mini guidewire 5 [place] David 3 Chama catheter Terumo glidewire TR Band CONTRAST: Visipaque 320 106 mL ESTIMATED BLOOD LOSS: <30 mL TECHNIQUE: Prior to the procedure, the technical aspects of the procedure, as well as benefits, potential risks and alternate options, were explained to the patient and her in person. Specifically, the risks of cerebral infarction, hemorrhage, weakness, paralysis, sensory changes, vision decline/blindness, cranial nerve palsy, facial pain, anaphylaxis, renal failure, access site hematoma, arterial dissection, arterial pseudoaneurysm, arteriovenous fistula were discussed . Informed consent was obtained. After informed consent was obtained, the patient was brought to the angiography suite. Moderate sedation (intravenous fentanyl and midazolam) was administered under the direction of the attending physician with continuous monitoring by a trained nurse specialist independent of those performing the procedure. The right forearm was prepped and draped in the usual fashion. Access to the vascular system was gained in the usual way by a single-wall puncture of the right radial artery at the at the wrist under ultrasound guidance. Ultrasound images demonstrated a patent vessel and were stored to PACS.. The 5 [place] Merit Prelude IDeal sheath 23cm was then introduced into the right radial artery over the mini guidewire. A cocktail of Verapamil, Nitroglycerin, and Heparin was slowly injected into the right radial artery through the sheath over several minutes, with close monitoring of blood pressure. A Terumo Glidewire and 5 [place] David 3 Chama catheter were advanced into the aortic arch under fluoroscopic visualization and the catheter was formed over the aortic arch. Using fluoroscopic guidance, selective catheterization of the above mentioned vessels and digital angiograms were performed, centered over the head and neck with AP, lateral, and oblique views. 3D ROTATIONAL ANGIOGRAPHY OF THE LEFT INTERNAL CAROTID ARTERY : Rotational angiography was also performed from the guiding catheter in the left internal carotid artery for better delineation of the intracranial vascular anatomy. Three-dimensional angiographic images were processed on an independent workstation, and volume-rendered three-dimensional images were produced and reviewed by the attending physician. DynaCT of the head during injection of the left internal carotid artery was performed and cross-sectional images were generated and viewed by the attending neuroradiologist on a separate workstation. The catheter was then removed. The sheath was removed. Patent hemostasis was achieved by placement of a TR band. There were no immediate complications related to the procedure. FINDINGS: RIGHT INTERNAL CAROTID ARTERY, CEREBRAL: There is no evidence of aneurysm, focal stenosis, or early draining vein. No cross flow from anterior communicating artery is visualized. No posterior communicating artery is visualized on the right. In the distal right cervical segment of the internal carotid artery, a small irregularity with contrast stasis was observed which likely represents a small dissection. RIGHT EXTERNAL CAROTID ARTERY, CEREBRAL: There is no evidence of intracranial early venous drainage. LEFT INTERNAL CAROTID ARTERY, CEREBRAL: There is no focal stenosis or early draining vein. There is cross flow through the anterior communicating artery from left to right. . A superiorly and anteriorly projecting anterior communicating artery aneurysm is present. The left posterior communicating artery fills well. 3D ROTATIONAL ANGIOGRAPHY OF THE LEFT INTERNAL CAROTID ARTERY: 3D Rotational angiography with volume-rendered three-dimensional reconstruction on an independent workstation demonstrated and anterior communicating artery aneurysm. It has a broad neck and projects anteriorly, superiorly, and to the right with inflow from the left A1 segment. It measures approximately 5.5 x 5.5 mm. LEFT EXTERNAL CAROTID ARTERY, CEREBRAL: There is no evidence of intracranial early venous drainage. RIGHT VERTEBRAL ARTERY, CEREBRAL: There is no evidence of aneurysm, focal stenosis, or early draining vein. There was good contrast reflux down the left vertebral artery. Both posterior inferior cerebellar arteries demonstrate normal takeoffs from the distal ipsilateral vertebral arteries. Both P1 segments fill well. COMPLICATIONS: There were no immediate complications. IMPRESSION: Broad necked anterior communicating artery aneurysm measuring approximately 5.5 x 5.5 mm. PLAN: Patient okay to discharge home after TR band instructions complete. We will plan to have the patient return for WEB embolization in the near future. Dictated by: Trev Lindquist MD, PhD The radiology attending physician has personally reviewed this study, and had reviewed and/or edited this written report and agrees with it. Electronically signed by: Abdiaziz Moss M.D. Lizzie Green NP IMG IR PROCEDURES Final Re sult documented in this encounter Visit Diagnoses Diagnosis Cerebral aneurysm, nonruptured documented in this encounter Administered Medications Inactive Administered Medications - up to 3 most recent administrations Medication Order MAR Action Action Date Dose Rate Site acetaminophen (TYLENOL) tablet 650 mg 650 mg, oral, Once, On Thu03/12/22 at 1215, For 1 dose Given 03/12/2022 11:38 AM COMMUTATOR REPAIRER 650 mg fentaNYL (SUBLIMAZE) preservative free injection intravenous, As needed, Starting on Thu03/12/22 at 1014, Intra-Op Given 03/12/2022 10:56 AM COMMUTATOR REPAIRER 25 mcg Given 03/12/2022 10:41 AM COMMUTATOR REPAIRER 25 mcg Given 03/12/2022 10:14 AM COMMUTATOR REPAIRER 50 mcg heparin 1,000 unit/mL injection As needed, Starting on Thu03/12/22 at 1016, Intra-Op Given 03/12/2022 10:16 AM COMMUTATOR REPAIRER 3,000 Units Right Arm iodixanoL (VISIPAQUE) 320 mg iodine/mL injection As needed, Starting on Thu03/12/22 at 1107, Intra-Op Given 03/12/2022 11:07 AM COMMUTATOR REPAIRER 106 mL lidocaine PF (XYLOCAINE) 10 mg/mL (1 %) preservative free injection As needed, Starting on Thu03/12/22 at 1021, Intra-Procedure (IR), Indications: Administration of Local AnesthesiaIndications:Administrat ion of Local Anesthesia Given 03/12/2022 10:21 AM COMMUTATOR REPAIRER 5 mL Right Arm midazolam (VERSED) 1 mg/mL injection As needed, Starting on Thu03/12/22 at 1014, Intra-Op Given 03/12/2022 10:56 AM COMMUTATOR REPAIRER 0.5 mg Given 03/12/2022 10:41 AM COMMUTATOR REPAIRER 0.5 mg Given 03/12/2022 10:14 AM COMMUTATOR REPAIRER 1 mg nitroglycerin injection 100 mcg/mL in D5W 10 mL intra-arterial, As needed, Starting on Thu03/12/22 at 1016, Intra-Op Given 03/12/2022 10:16 AM COMMUTATOR REPAIRER 200 mcg Right Arm sodium chloride 0.9% infusion intravenous, Continuous PRN, Starting on Thu03/12/22 at 1008, Intra-Op New Bag 03/12/2022 10:08 AM COMMUTATOR REPAIRER 20 mL/hr 20 mL/hr verapamiL (ISOPTIN) injection Administer over 2 Minutes, As needed, Starting on Thu03/12/22 at 1016, Intra-Op Given 03/12/2022 10:16 AM COMMUTATOR REPAIRER 2.5 mg Right Arm documented in this encounter Orders Medications Ordered That Elmo ht Not Have Been Administered Count Last Ordered Date First Ordered Date Carrier Fluids for Secondary Infusion - 0.9% Sodium Chloride 1 03/12/2022 heparin 100 unit/mL injection 500 Units 1 1 05/12/2021 sodium chloride 0.9% flush 0.5-20 mL 2 02/13 sodium chloride 0.9% flush 10 mL 1 03/12/20 sodium chloride 0.9% flush 10-20 mL 1 03/12 sodium chloride 0.9% flush 5-10 mL 1 2021 sodium chloride 0.9% infusion 1 03/12/2022 Discharge Count Last Ordered Date First Orde red Date DISCHARGE PATIENT 1 03/12/2022 documented in this encounter Care Teams Care Director Relationship Specialty Start Date End Date Sylvia Dawson PA [address] [place] [address] PCP - General Internal Medicine 01/05/20 Erica Rodrigues MD [phone] [place] [address] Radiation Oncologist Radiation Oncology 10/25/18 Gasper Kaba MD [address] [place] [address] Surgeon Surgical Oncology 10/25/18 Brandy Aguirre CNS [address] [place] [address] Nurse Practitioner Certified Clinical Nurse Specialist 10/25/18 Jo-Ann Morrow, PhD [address] [place] [address] Nurse Practitioner Radiation Oncology 10/25/18 Christina Louis MAINTAINER CENTRAL OFFICE [address] [place] [address] Nurse Practitioner Medical Oncology 10/25/18 documented as of this encounter
--- OUTSIDE RECORDS SUMMARY | 2024-04-24 05:52 | XMS_ITS | Encounter Summary ---
Author Organization [facility] Address [address] [place] [address] Phone Care Team Providers Care Is Consultant Name Role Phone Erica Rodrigues MD Unavailable Gasper Kaba MD Unavailable Brandy Aguirre AIRFRAME AND POWERPLANT TECHNICIAN Unavailable [phone] Jo-Ann Morrow PhD Unavailable [phone] Christina Louis SUPERVISOR MAJOR APPLIANCE ASSEMBLY Unavailable [phone] Sylvia Dawson Primary Care Provider [phone] Reason for Visit * Reason Comments Cystoid macular edema of both eyes Encounter Details Date Type Department Care Team (Late st Contact Info) Description 02/17/2022 10:30 AM PROJECTION ENGINEER Office Visit [facility] Ophthalmology [address] [place] [address] Jessy Adame MD [address] [facility] [address] [place] [address] Cystoid macular edema of both eyes (Primary [...] on file Legal Sex Female 3:42 AM PROJECTION ENGINEER Gender Identity Not on file Sexual Orientation Not on file 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 Floaters are gone. States some pain in and around OS. Pt denies flashes Ocular Meds: PF and TOBR QID OS, AT's PRN Last edited by Monse Maxwell on 02/17/2022 10:30 AM. Assessment/Plan Diagnoses and all orders for this visit: Cystoid macular edema of both eyes (Primary) Assessment & Plan: Less than 1 week following vitrectomy for [...] artificial Tear use to every 2 hours whileawake in the left eye. I have asked that she keep her scheduled appointment on Thursday The signs and symptoms of retinal detachment, tears, infection, elevated intra- ocular pressure werereviewed with the patient. Patient knows to call should they have any of the symptoms. PLAN FOR NEXT VISIT Follow-up and Dispositions Return in about 2 days (around 02/19/2022) for Dilated Exam OS, OCT OS. ECTION ENGINEER documented in this encounter Miscellaneous Notes * Assessment & Plan Note - Jessy Adame MD - 02/17/2022 11:08 AM PROJECTION ENGINEER Associated Problem(s): Cystoid macular edema of both eyes Less than 1 week following vitrectomy for [...] artificial Tear use to every 2 hours whileawake in the left eye. I have asked that she keep her scheduled appointment on Thursday ECTION ENGINEER ECTION ENGINEER documented in this encounter Plan of Treatment Not on file documented as of this encounter Visit Diagnoses Diagnosis Cystoid macular edema of both eyes- Primary Cystoid macular degeneration of retina documented in this encounter Eye Exam Visual Acuity (Snellen - Linear) Right eye Left eye Dist sc 20/20 -1 20/50 Dist ph sc 20/40 +1 Tonometry (Tonopen, 10:35 AM) Right eye Left eye Pressure 13 20 Pupils Dark Light Shape React APD Right eye 4 3.5 Round Minimal None Left eye 4 3.5 Round Minimal None Neuro/Psych Oriented x3: Yes Mood/Affect: Normal Dilation Left eye: 1% Tropicamide @ 1 0:35 AM External Exam Right eye Left eye External Normal Slit Lamp Exam Right eye Left eye Lids/Lashes Normal Conjunctiva/Sclera White and gael et Cornea Clear, single fi lament on epithelium inferiorly Anterior Chamber Deep and quiet Iris Round and reacti ve Lens PCIOL, open caps ule Fundus Exam Right eye Left eye Periphery 5% airattached Care Teams Is Consultant Relationship Specialty Start Date End Date Sylvia Dawson PA [address] [facility] [address] [place] [address] PCP - General Internal Medicine 01/05/20 Erica Rodrigues MD [address] [place] [address] Radiation Oncologist Radiation Oncology 10/25/18 Gasper Kaba MD [address] [place] [address] Surgeon Surgical Oncology 10/25/18 Brandy Aguirre, CARINA [address] [place] [address] Nurse Practitioner Certified Clinical Nurse Specialist 10/25/18 Jo-Ann Morrow, PhD [address] [place] [address] Nurse Practitioner Radiation Oncology 10/25/18 Christina Louis NP [address] [facility] [address] [place] [address] Nurse Practitioner Medical Oncology 10/25/18 documented as of this encounter
--- OUTSIDE RECORDS SUMMARY | 2024-04-24 05:52 | XMS_ITS | Encounter Summary ---
Author Organization [facility] Address [address] [place] [address] Phone Care Team Providers Care Developer Programmer Analyst Name Role Phone Erica Rodrigues MD Unavailable Gasper Kaba MD Unavailable Brandy Aguirre BUSINESS INFORMATION CONSULTANT Unavailable Jo-Ann Morrow PhD Unavailable [phone] Christina Louis MANAGER GAMING Unavailable [phone] Sylvia Dawson Primary Care Provider [phone] Encounter Details Date Type Department Care Team (Late st Contact Info) Description 03/26/2022 Orders Only [facility] Neurosurgery [address] [facility] [address] [place] [address] Lizzie Green, MANAGER GAMING [address] [place] [address] Internal carotid artery dissection (CMS/HCC) (HCC) (Primary Dx) Social History Tobacco Use Types [...] on file Legal Sex Female 3:42 AM PARENT COACH Gender Identity Not on file Sexual Orientation Not on file 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 Blood 03/28/2022 9:53 AM PARENT COACH 03/28/2022 10:30 AM PARENT COACH us Lizzie Green NP LAB BLOOD ORDERABLES Final Result KATHY REYNA [facility] [place] [address] documented in this encounter Visit Diagnoses Diagnosis Internal carotid artery dissection (CMS/HCC) (HCC)- Primary documented in this encounter Care Teams Developer Programmer Analyst Relationship Specialty Start Date End Date Sylvia Dawson PA [address] [place] [address] PCP - General Internal Medicine 01/05/20 Erica Rodrigues MD [address] [place] [address] Radiation Oncologist Radiation Oncology 10/25/18 Gasper Kaba MD [address] [place] [address] Surgeon Surgical Oncology 10/25/18 Brandy Aguirre, BUSINESS INFORMATION CONSULTANT [address] [place] [address] Nurse Practitioner Certified Clinical Nurse Specialist 10/25/18 Jo-Ann Morrow, PhD [address] [place] [address] Nurse Practitioner Radiation Oncology 10/25/18 Christina Louis, MANAGER GAMING [address] [place] [address] Nurse Practitioner Medical Oncology 10/25/18 documented as of this encounter
--- OUTSIDE RECORDS SUMMARY | 2024-04-24 05:52 | XMS_ITS | Encounter Summary ---
Author Organization [facility] Address [address] [place] [address] Care Team Providers Care Vice President Of Talent Management Name Role Phone Erica Rodrigues MD Unavailable Gasper Kaba MD Unavailable [phone] Brandy Aguirre Unavailable [phone] Jo-Ann Morrow PhD Unavailable Christina Louis NP Unavailable [phone] Sylvia Dawson Primary Care Provider [phone] Reason for Referral * MRI/CAT/PET Scan (Routine) - Closed Specialty Diagnoses / Procedures Referred By Niranjan farrell Referred To Contact Radiology Diagnoses Cerebral aneurysm, nonruptured Procedures MRA Head W WO Contrast Lizzie Green NP [address] [facility] [address] [place] [address] Phone: tel: fax: [address] [address] Referral ID Status Reason Start Date Expiration Date Visits Re quested Visits Authorized [id number] Closed 01/17/2022 02/15/2022 1 1 Reason for Visit * MRI/CAT/PET Scan (Routine) - Closed Specialty Diagnoses / Procedures Referred By Contac t Referred To Contact Radiology Diagnoses Cerebral aneurysm, nonruptured Procedures MRA Head W WO Lizzie Benito NP [address] [place] [address] Phone: tel: fax: [address] [place] [address] Referral ID Status Reason Start Date Expiration Date Visits Re quested Visits Authorized [id number] Closed 01/17/2022 02/15/2022 1 1 Encounter Details Date Type Department Care Team (Latest Contact Info) Description 02/08/2022 7:11 AM CDT - 02/08/2022 11:59 PM CDT Hospital Encounter [facility] Imaging [address] [address] Cerebral aneurysm, nonruptured Discharge Disposition: Discharge to [...] on file Legal Sex Female 3:42 AM MULTI PURPOSE MACHINE OPERATOR Gender Identity Not on file Sexual Orientation Not on file 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 Not on file Not on file Not on file documented as of this encounter Medications at Time of Discharge multivitamin with minerals tabletIndication s:Vitamin Deficiency Prevention Take 1 tablet by mouth every morning vit M-W-ojeemj-zinc- lutein (PreserVision Lutein) 226-90-0.8-5 mg capsuleIndicatio ns:Eye support Take 1 tablet by mouth 2 (two) times a day aspirin 81 mg enteric coated tabletIndication s:can't recall why they put her on this Take 1 tablet (81 mg total) by mouth 2 (two) times a week Tu and Thu03/17/2022 atenoloL (TENORMIN) 25 mg tablet [...] morning 08/29/2022 documented as of this encounter Discharge Disposition Disposition Code Departure Means Destination Discharge to home or self care documented in this encounter Plan of Treatment Not on file documented as of this encounter Procedures Procedure Name Priority Date/Time Associated Diagnosis Comments MRA HEAD W WO CONTRAST Schedule Routine, Read Routine (OP Routine) 02/08/2022 8:06 AM CDT Cerebral aneurysm, nonruptured documented in this encounter Results * MRA Head W WO Contrast (02/08/2022 8:06 AM CDT) Anatomical Region Laterality Modality Head and Neck N/A Magnetic Resonan ce 02/09/2022 10:2 5 PM CDT Impressions 02/09/2022 10:25 PM CDT 1. ??No acute intracranial process. 2. ??Superiorly directed anterior communicating artery aneurysm, measuring 5 mm, unchanged. Electronically signed by: Hudson Phillips M.D. Narrative 02/09/2022 10:25 PM CDT EXAMINATION: Magnetic resonance imaging (MRI) of the brain and brainstem without and with contrast Magnetic resonance angiography (MRA) of the naycud-bg-Ziqqan without and with contrast HISTORY: Patient is a 61-year-old female who presents for follow-up of anterior communicating artery aneurysm. TECHNIQUE: Multiplanar multi-weighted MRI of the brain and brainstem was performed without and with intravenous contrast using the general brain protocol. Magnetic resonance angiography of the [id number] was performed using separate data set acquisitions including a non-contrast puor-yp-urpowt technique and a post-contrast technique to produce axial thin-slice source images. These images were then used to generate maximum intensity projection (MIP) images. Contrast information: 12 mL Gadoterate Meglumine COMPARISON: MRA of the head performed on 03/30/2019. FINDINGS: The scalp and calvarium are normal. ??Foci of increased T2 signal intensity are present within the subcortical and periventricular white matter of both cerebral hemispheres. ??These findings are nonspecific, but are likely secondary to small vessel vasculopathy. The superior sagittal sinus demonstrates normal venous flow. The corpus callosum is normal in shape and signal intensity. The posterior fossa is unremarkable. ??The pituitary and sella are normal. The brainstem and craniocervical junction are unremarkable. Diffusion weighted images reveal no hyperintensities to suggest acute cerebral infarction. The susceptibility weighted sequences reveal no evidence of acute or chronic hemorrhage. The ventricles are normal in size and position without evidence of hydrocephalus. There are no areas of abnormal contrast enhancement. The paranasal sinuses are normal. The visualized portions of the mastoids are unremarkable. Aside from bilateral ocular lens replacements, the orbits are unremarkable. Normal flow voids are demonstrated in the carotid arteries and basilar artery. The internal carotid arteries are of normal caliber. There are no areas of atherosclerotic narrowing. The sfzywd-xf-Jhpsoz is complete. There is a bilobed superiorly directed outpouching from the anterior communicating artery, consistent with aneurysm, measuring approximately 5 mm in maximum dimension, similar in size when compared to the previous examination. ??The anterior and middle cerebral arteries are otherwise normal. The vertebral arteries are codominant. The basilar artery is normal. The posterior cerebral arteries are normal. There is no evidence of vascular malformation. Procedure Note Hudson Phillips MD - 02/09/2022 EXAMINATION: Magnetic resonance imaging (MRI) of the brain and brainstem without and with contrast Magnetic resonance angiography (MRA) of the [id number]-tp-Pplpzk without and with contrast HISTORY: Patient is a 61-year-old female who presents for follow-up of anterior communicating artery aneurysm. TECHNIQUE: Multiplanar multi-weighted MRI of the brain and brainstem was performed without and with intravenous contrast using the general brain protocol. Magnetic resonance angiography of the [id number]-jd-Mbbiie was performed using separate data set acquisitions including a non-contrast hwcb-co-ozdsed technique and a post-contrast technique to produce axial thin-slice source images. These images were then used to generate maximum intensity projection (MIP) images. Contrast information: 12 mL Gadoterate Meglumine COMPARISON: MRA of the head performed on 03/30/2019. FINDINGS: The scalp and calvarium are normal. Foci of increased T2 signal intensity are present within the subcortical and periventricular white matter of both cerebral hemispheres. These findings are nonspecific, but are likely secondary to small vessel vasculopathy. The superior sagittal sinus demonstrates normal venous [...] size and position without evidence of hydrocephalus. There are no areas of abnormal contrast enhancement. The paranasal sinuses are normal. The visualized portions of the mastoids are unremarkable. Aside from bilateral ocular lens replacements, the orbits are unremarkable. Normal flow voids are demonstrated in the carotid arteries and basilar artery. The internal carotid arteries are of normal caliber. There are no areas of atherosclerotic narrowing. The lqslkp-oj-Vjrqmo is complete. There is a bilobed superiorly directed outpouching from the anterior communicating artery, consistent with aneurysm, measuring approximately 5 mm in maximum dimension, similar in size when compared to the previous examination. The anterior and middle cerebral arteries are otherwise normal. The vertebral arteries are codominant. The basilar artery is normal. The posterior cerebral arteries are normal. There is no evidence of vascular malformation. IMPRESSION: 1. No acute intracranial process. 2. Superiorly directed anterior communicating artery aneurysm, measuring 5 mm, unchanged. Electronically signed by: Hudson Phillips M.D. Lizzie Green NP IMG MRI PROCEDURES Final R esult documented in this encounter Visit Diagnoses Diagnosis Cerebral aneurysm, nonruptured documented in this encounter Care Teams Vice President Of Talent Management Relationship Specialty Start Date End Date Sylvia Dawson PA [address] [facility] [address] [place] [address] PCP - General Internal Medicine 01/05/20 Erica Rodrigues MD [address] [facility] [facility] [address] [place] [address] Radiation Oncologist Radiation Oncology 10/25/18 Gasper Kaba MD [address] [facility] [address] [facility] [address] [place] [address] Surgeon Surgical Oncology 10/25/18 Brandy Aguirre CNS [address] [facility] [address] [facility] [address] [place] [address] Nurse Practitioner Certified Clinical Nurse Specialist 10/25/18 Jo-Ann Morrow, PhD [address] [facility] [address] [facility] [address] [place] [address] Nurse Practitioner Radiation Oncology 10/25/18 Christina Louis, COMPUTER PROGRAMMER CHIEF [address] [facility] [address] LL [facility] [address] [place] [address] Nurse Practitioner Medical Oncology 10/25/18 documented as of this encounter
--- OUTSIDE RECORDS SUMMARY | 2024-04-24 05:52 | XMS_ITS | Encounter Summary ---
Author Organization [facility] Healthcare Address [address] [place] [address] Care Team Providers Care Tab Cutter Name Role Phone Erica Rodrigues MD Unavailable Gasper Kaba MD Unavailable [phone] Brandy Aguirre Unavailable [phone] Jo-Ann Morrow PhD Unavailable [phone] Christina Louis NP Unavailable [phone] Sylvia Dawson Primary Care Provider [phone] Reason for Referral * Diagnostic Imaging (Routine) - Closed Specialty Diagnoses / Procedures Referred By Niranjan farrell Referred To Contact Diagnoses History of right breast cancer Procedures Screening Mammogram Bilateral W Iliana Zamudio NP Phone: tel: fax: [address] [address] Referral ID Status Reason Start Date Expiration Date Visits Re quested Visits Authorized [id number] Closed 02/04/2022 03/06/2023 1 1 ALARM MECHANIC Reason for Visit * Diagnostic Imaging (Routine) - Closed Specialty Diagnoses / Procedures Referred By Niranjan farrell Referred To Contact Diagnoses History of right breast cancer Procedures Screening Mammogram Bilateral W Iliana Zamudio NP Phone: tel: fax: [facility] [address] [place] [address] Referral ID Status Reason Start Date Expiration Date Visits Re quested Visits Authorized [id number] Closed 02/04/2022 03/06/2023 1 1 Encounter Details Date Type Department Care Team (Latest Contact Info) Description 04/01/2022 12:15 PM FIRE ALARM MECHANIC - 04/01/2022 11:59 PM FIRE ALARM MECHANIC Hospital Encounter [facility] Breast Imaging [address] [place] [id number] History of right breast cancer Discharge Disposition: Discharge to home or self [...] on file Legal Sex Female 3:42 AM FIRE ALARM MECHANIC Gender Identity Not on file Sexual Orientation Not on file 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 Not on file Not on file documented as of this encounter Medications at Time of Discharge multivitamin with minerals tabletIndication s:Vitamin Deficiency Prevention Take 1 tablet by mouth every morning vit L-P-kwtziy-zinc- lutein (PreserVision Lutein) 226-90-0.8-5 mg capsuleIndicatio ns:Eye [...] mL 11 03/27/2022 3 aspirin 325 mg enteric coated tablet Take 1 tablet (325 mg total) by mouth daily 30 tablet 11 03/17/2022 2 atenoloL (TENORMIN) 25 mg tablet TAKE 1 TABLET(25 MG) BY MOUTH DAILY 90 tablet 1 03/10/2022 3 butalbital-aceta minophen-caffein e-codeine (FIORICET WITH CODEINE) 58-877-91-30 mg per capsule Take 1 capsule by mouth every 4 (four) hours as needed for headaches 20 capsule 02/28/2022 3 calcium carbonate/vitami n D3 (CALTRATE 600 PLUS D ORAL) Take 1 tablet by mouth every morning 3 clopidogreL (PLAVIX) 75 mg tablet Take 1 tablet (75 mg total) by mouth daily 30 tablet 11 03/17/2022 2 coenzyme Q10 200 mg capsule Take 1 [...] A DAY 360 tablet 1 10/09/2021 2 traMADoL (ULTRAM) 50 mg tabletIndication s:Pain Take [...] MARCELO Schedule Routine, Read Routine (OP Routine) 04/01/2022 12:39 PM FIRE ALARM MECHANIC History of right breast cancer documented in this encounter Results * Screening Mammogram Bilateral W Marcelo (04/01/2022 12:39 PM FIRE ALARM MECHANIC) Anatomical Region Laterality Modality Breast Bilateral Mammography Impressions 04/01/2022 12:51 PM FIRE ALARM MECHANIC BI-RADS?? ATLAS category (overall): 2 - Benign There is no mammographic evidence of malignancy. A 1 year screening mammogram is recommended. The patient has been or will be contacted. We recommend annual screening mammography for women at average risk of breast cancer beginning at age 40, based on guidelines of the [employer] (ACR Practice Parameter for the Performance of Screening and Diagnostic Mammography) and [employer]. For women with and elevated risk of breast cancer, please refer to the ACR Practice Parameter for specific screening recommendations. The patient will be entered into a reminder system with a target due date of 1 year for her next screening exam. Narrative 04/01/2022 12:51 PM FIRE ALARM MECHANIC Screening Mammogram Bilateral W Marcelo: 04/01/22 The study was acquired using full field digital technology and interpreted from soft copy. 2D digital mammographic views, as well as 3D digital tomosynthesis were performed in the CC and MLO projections. CLINICAL: ??History of right breast cancer. ??Medical history includes breast cancer, chemotherapy, and radiation therapy. ??History of breast cancer in Neg Hx. COMPARISONS: 05/23/2021 US Breast Right Limited 03/02/2021 Screening Mammogram Bilateral W Marcelo 02/20/2020 Screening Mammogram Bilateral W Marcelo 01/18/2019 Screening Mammogram Bilateral W Marcelo 02/09/2018 Diagnostic Mammogram Bilateral W Marcelo BREAST TISSUE: The breasts are heterogeneously dense, which may obscure small masses. FINDINGS: There are stable postoperative findings in the right breast. No suspicious masses, suspicious calcifications, or other suspicious findings are seen within either breast. There has been no suspicious change. Iliana Eid Kacey INSPECTOR WELDED PARTS IMG MAMMO PROCEDURES Final Result documented in this encounter Visit Diagnoses Diagnosis History of right breast cancer documented in this encounter Care Teams Tab Cutter Relationship Specialty Start Date End Date Sylvia Dawson PA [address] [place] [address] PCP - General Internal Medicine 01/05/20 Erica Rodrigues MD [address] [place] [address] Radiation Oncologist Radiation Oncology 10/25/18 Gasper Kaba MD [address] [place] [address] Surgeon Surgical Oncology 10/25/18 Brandy Aguirre CNS [address] [place] [address] Nurse Practitioner Certified Clinical Nurse Specialist 10/25/18 Jo-Ann Morrow, PhD [address] [facility] [address] [place] [address] Nurse Practitioner Radiation Oncology 10/25/18 Christina Louis NP [address] [facility] [address] [place] [address] Nurse Practitioner Medical Oncology 10/25/18 documented as of this encounter
--- OUTSIDE RECORDS SUMMARY | 2024-04-24 05:52 | XMS_ITS | Encounter Summary ---
Author Organization [facility] [employer] [facility] Address [address] [place] [address] Phone Care Team Providers Care Yeast Stacker Name Role Phone Erica Rodrigues MD Unavailable Gasper Kaba MD Unavailable [phone] Brandy Aguirre GAS CUTTER Unavailable [phone] Jo-Ann Morrow PhD Unavailable [phone] Christina Louis LINING FINISHER Unavailable [phone] Sylvia Dawson Primary Care Provider [phone] Reason for Referral * MRI/CAT/PET Scan (Routine) - Closed Specialty Diagnoses / Procedures Referred By Contac t Referred To Contact Radiology Diagnoses Cerebral aneurysm, nonruptured Internal carotid artery dissection (CMS/HCC) (HCC) Procedures CTA Head Neck W WO Contrast Caryl Green NP [address] [place] [address] Phone: tel: fax: [address] [address] Referral ID Status Reason Start Date Expiration Date Visits Re quested Visits Authorized [id number] Closed 03/17/2022 04/15/2022 1 1 CLIPPER TENDER Encounter Details Date Type Department Care Team (Late st Contact Info) Description 03/14/2022 Telephone [facility] [address] 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 She reports she has been having intermittent headaches since her procedure, but they are relieved with spot dosing of Fioricet and tylenol. Went over pain control plan given recent procedure. Patient also reports since 04/02 her BP has been high, she reached out to her Business Banking Sales Assistant about it, but has not heard back. Told patient I would reach out on her behalf as thehigh blood pressure is likely also not helping her headaches. She reports she would rather go to another office given their history of poor communication, told patient I would try and get ahold of them first before sending a cardiology referral in. Called Dr. De León's office, line was busy and hung up on me. [employer] message sent to nurse directly to have her address. Patient also needing a 6 week follow up-appointment scheduled together on the phone. Patient voicedunderstanding, no further questions at this time. Asked patient to send me a [employer] message later tomorrow if she still has not heard from cardiology. CLIPPER TENDER * Telephone Encounter - Susana Gilman CMA - 04/15/2022 10:43 AM CST Pt called stating she is having headaches off and on since having surgery on 04/09: angio for R carotid stent with some neck pains. Pt also wanting a referral for a Business Banking Sales Assistant for her blood pressure. Pt would like a call back to discuss. Number in chart is appropriate. CLIPPER TENDER * Telephone Encounter - Caryl Green NP - 03/25/2022 3:03 PM DRY [address]IPPER TENDER Dr. Moss agrees with continuing DAPT. The pt reported some symptoms over the weekend, intermittentleft vision issues, word finding difficulties, hypertension. Her BP has returned to baseline. The severe pain she was experiencing has improved. The tinnitus is persistent. She was instructed to continue to monitor her symptoms closely. We will re-assess dissection during angiogram for placement ofWEB. CLIPPER TENDER * Telephone Encounter - Caryl Green NP - 03/21/2022 3:33 PM DRY CLIPPER TENDER Reviewed CTA with the pt, R ICA dissection noted. She has started DAPT, reports pain has improved. Will discuss further with RUIZ. CLIPPER TENDER * Addendum Note - Caryl Green NP - 03/17/2022 3:59 PM CSTAddended by: CARYL GREEN on: 03/17/2022 03:59 PM Modules accepted: Orders CLIPPER TENDER * Telephone Encounter - Caryl Green NP - 03/17/2022 3:50 PM DRY CLIPPER TENDER A long discussion with the patient. She states that after her angiogram she started experiencing pain radiating down her right jaw, lateral neck and right- sided headaches. These are not relieved withmedication. She is also noted pulsatile tinnitus in her right ear. I discussed the patient with and we will start her on her Plavix and aspirin 325 mg daily now instead of 2 weeks prior to her procedure. We will also have her undergo a CTA H/N WWO to ensure stability prior to proceeding with her web placement. I will call her in some tramadol for her pain as it is severe and not improved with Tylenol. The patient states that she experiences same pain last year. She was evaluated by her primary care provider who checked out her ears and never found a source. This gradually got better with time and she went back to her baseline headaches.Yesika Denney states that this is the same pain, but more severe. I encouraged her to call with any new or worsening symptoms, questions or concerns in the interim. CLIPPER TENDER * Telephone Encounter - Caryl Green NP - 03/14/2022 4:05 PM DRY CLIPPER TENDER Discussed pt with RUIZ, will proceed with WEB. Email sent to mauri to coordinate. Pt aware of plan. CLIPPER TENDER documented in this encounter Plan of Treatment Not on file documented as of this encounter Results * CTA Head Neck W WO Contrast (03/20/2022 3:08 PM DRY CLIPPER TENDER) Anatomical Region Laterality Modality Head and Neck N/A Computed Tomogra phy 03/20/2022 5:25 PM DRY CLIPPER TENDER Impressions 03/20/2022 7:17 PM DRY CLIPPER TENDER 1. No acute intracranial process. 2. Short segment dissection of the distal cervical right internal carotid artery, with an area of severe focal narrowing described above. 3. 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 Dictated by: Elier Warren MD The radiology attending physician has personally reviewed this study, and had reviewed and/or edited this written report and agrees with it. Electronically signed by: Rashard De Jesus MD, PHD Narrative 03/20/2022 7:17 PM DRY CLIPPER TENDER EXAMINATION: Computed tomography angiography (CTA) of the head without and with contrast Computed tomography angiography (CTA) of the neck with contrast HISTORY: Status post diagnostic cerebral angiogram on 03/12/2022 for evaluation of a anterior communicating artery aneurysm. ??Right distal cervical internal carotid artery dissection noted during this exam. Headaches, pulsatile tinnitus on the right. TECHNIQUE: Computed tomography of the head was performed without contrast according to standard protocol. Computed tomographic angiography was then obtained from the aortic arch to the vertex following the uneventful administration of intravenous contrast. 3D images were generated on a dedicated workstation. Contrast information: 95 mL Optiray-350 COMPARISON: MRA brain 02/08/2022. ??Cerebral angiography 03/12/2022.. FINDINGS: Topogram demonstrates no lytic lesions or fractures. There is no acute intracranial hemorrhage . Ventricles are of normal size and morphology. No mass effect or midline shift is present. The koehler-white matter differentiation is normal. There are bilateral lens replacements. The visualized portions of the mastoids are normal. The visualized portions of the paranasal sinuses are normal. No fractures are identified. Scattered subcentimeter lymph nodes are seen in the neck. None are pathologically enlarged or abnormally enhancing. The muscles of the neck are normal. Fascial planes are preserved and the deep spaces of the neck are normal. The visualized airway is widely patent. There are changes of left hemithyroidectomy. ??There is a subcentimeter hypoattenuating nodule in the right thyroid lobe. There is mild anterolisthesis of C4 on C5 and C5 on C6. ??There are mild multilevel degenerative changes throughout cervical spine without high-grade neuroforaminal or spinal canal stenosis. Limited examination of the superior thorax shows no pulmonary infiltrate, suspicious nodules, or pleural effusions. ANGIOGRAPHIC FINDINGS: There is common origin of the brachiocephalic artery and left common carotid artery, a normal variant. The innominate artery and both subclavian arteries are normal in course and caliber. The common carotid arteries are normal in course and caliber with normal carotid bifurcations bilaterally. There is a short segment dissection of the right cervical internal carotid artery, extending from the level of C2 to just proximal to the junction with the petrous segment. ??There is severe focal narrowing of the artery (series 9, image 323) with good opacification distally. The vdxmgi-am-Tghyou is complete. The anterior and middle cerebral arteries are normal. There is a 5 x 6 mm anteriorly oriented outpouching arising from the anterior communicating artery (series 9, image 2 1), unchanged in size from 02/08/2022. The vertebral arteries are codominant. The basilar artery is normal. The posterior cerebral arteries are normal. There is no aneurysm or vascular malformation identified. An arachnoid granulation is noted within the left transverse sinus. Procedure Note Rashard De Jesus MD PhD - 03/20/2022 EXAMINATION: Computed tomography angiography (CTA) of the head without and with contrast Computed tomography angiography (CTA) of the neck with contrast HISTORY: Status post diagnostic cerebral angiogram on 03/12/2022 for evaluation of a anterior communicating artery aneurysm. Right distal cervical internal carotid artery dissection noted during this exam. Headaches, pulsatile tinnitus on the right. TECHNIQUE: Computed tomography of the head was performed without contrast according to standard protocol. Computed tomographic angiography was then obtained from the aortic arch to the vertex following the uneventful administration of intravenous contrast. 3D images were generated on a dedicated workstation. Contrast information: 95 mL Optiray-350 COMPARISON: MRA brain 02/08/2022. Cerebral angiography 03/12/2022.. FINDINGS: Topogram demonstrates no lytic lesions or fractures. There is no acute intracranial hemorrhage . Ventricles are of normal size and morphology. No mass effect or midline shift is present. The koehler-white matter differentiation is normal. There are bilateral lens replacements. The visualized portions of the mastoids are normal. The visualized portions of the paranasal sinuses are normal. No fractures are identified. Scattered subcentimeter lymph nodes are seen in the neck. None are pathologically enlarged or abnormally enhancing. The muscles of the neck are normal. Fascial planes are preserved and the deep spaces of the neck are normal. The visualized airway is widely patent. There are changes of left hemithyroidectomy. There is a subcentimeter hypoattenuating nodule in the right thyroid lobe. There is mild anterolisthesis of C4 on C5 and C5 on C6. There are mild multilevel degenerative changes throughout cervical spine without high-grade neuroforaminal or spinal canal stenosis. Limited examination of the superior thorax shows no pulmonary infiltrate, suspicious nodules, or pleural effusions. ANGIOGRAPHIC FINDINGS: There is common origin of the brachiocephalic artery and left common carotid artery, a normal variant. The innominate artery and both subclavian arteries are normal in course and caliber. The common carotid arteries are normal in course and caliber with normal carotid bifurcations bilaterally. There is a short segment dissection of the right cervical internal carotid artery, extending from the level of C2 to just proximal to the junction with the petrous segment. There is severe focal narrowing of the artery (series 9, image 323) with good opacification distally. The xvoucf-nw-Pquucl is complete. The anterior and middle cerebral arteries are normal. There is a 5 x 6 mm anteriorly oriented outpouching arising from the anterior communicating artery (series 9, image 2 1), unchanged in size from 02/08/2022. The vertebral arteries are codominant. The basilar artery is normal. The posterior cerebral arteries are normal. There is no aneurysm or vascular malformation identified. An arachnoid granulation is noted within the left transverse sinus. IMPRESSION: 1. No acute intracranial process. 2. Short segment dissection of the distal cervical right internal carotid artery, with an area of severe focal narrowing described above. 3. 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 Dictated by: Elier Warren MD The radiology attending physician has personally reviewed this study, and had reviewed and/or edited this written report and agrees with it. Electronically signed by: Rashard De Jesus MD, PHD Caryl Green NP IMG CT PROCEDURES Final Re sult documented in this encounter Visit Diagnoses Diagnosis Cerebral aneurysm, nonruptured- Primary Internal carotid artery dissection (CMS/HCC) (HCC) Cerebral aneurysm, nonruptured Internal carotid artery dissection (CMS/HCC) (HCC) documented in this encounter Discontinued Medications Medication Sig Discontinue Reason Start Date End Da te aspirin 81 mg enteric coated tabletIndications:can't recall why they put her on this Take 1 tablet (81 mg total) by mouth 2 (two) times a week and Thu03/17/2022 documented as of this encounter Care Teams Yeast Stacker Relationship Specialty Start Date End Date Sylvia Dawson PA [address] [place] [address] PCP - General Internal Medicine 01/05/20 Erica Rodrigues MD [address] [place] [address] Radiation Oncologist Radiation Oncology 10/25/18 Gasper Kaba MD [address] [facility] [address] [place] [address] Surgeon Surgical Oncology 10/25/18 Brandy Aguirre, CARINA [address] [facility] [address] [place] [address] Nurse Practitioner Certified Clinical Nurse Specialist 10/25/18 Jo-Ann Morrow, PhD [address] [place] [address] Nurse Practitioner Radiation Oncology 10/25/18 Christina Louis NP [address] [facility] [address] [place] [address] Nurse Practitioner Medical Oncology 10/25/18 documented as of this encounter
--- OUTSIDE RECORDS SUMMARY | 2024-04-24 05:52 | XMS_ITS | Encounter Summary ---
Author Organization [facility] [employer] [facility] Address [address] [place] [address] Phone Care Team Providers Care Bobj Developer Name Role Phone Erica Rodrigues MD Unavailable Gasper Kaba MD Unavailable Brandy Aguirre ARMOR OFFICER Unavailable [phone] Jo-Ann Morrow PhD Unavailable [phone] Christina Louis DESIGN AND SALES CONSULTANT Unavailable [phone] Sylvia Dawson Primary Care Provider [phone] Encounter Details Date Type Department Care Team (Late st Contact Info) Description 02/03/2022 Telephone [facility] Ophthalmology [address] [facility] Outpatient Health 6th [place] [address] Celeste Gibbons, LEONELA Social History [...] on file Legal Sex Female 3:42 AM ETHANOL QUALITY LEADER Gender Identity Not on file Sexual Orientation Not on file 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 Not on file Not on file Not on file documented as of this encounter Miscellaneous Notes * Telephone Encounter - Celeste Gibbons COA - 02/03/2022 2:00 PM CDT Surgeon: Deep Underwood Procedure: ppv os Surgery Date: 02/11 Arrival Time: 12 pm Surgery Time: 2 pm Case# Location: pod 4 CPAP: COVID Test: n COVID Testing Location: na Confirmed w/Patient: y DX: [id number] CPT: 23158, [id number], [id number] Insurance: [facility] Prior Authorization: Outpatient: y Length: 60 min Anesthesia: mac POV#1: 02/12 POV#2: 02/19 Surgery Packet Sent: via home with patient documented in this encounter Plan of Treatment Not on file documented as of this encounter Visit Diagnoses Not on filedocumented in this encounter Care Teams Bobj Developer Relationship Specialty Start Date End Date Sylvia Dawson PA [address] [facility] [address] [place] [address] PCP - General Internal Medicine 01/05/20 Erica Rodrigues MD [address] [facility] [address] [place] [address] Radiation Oncologist Radiation Oncology 10/25/18 Gasper Kaba MD [address] [place] [address] Surgeon Surgical Oncology 10/25/18 Brandy Aguirre, ARMOR OFFICER [address] [address] [place] [address] Nurse Practitioner Certified Clinical Nurse Specialist 10/25/18 Jo-Ann Morrow, PhD [address] [place] [address] Nurse Practitioner Radiation Oncology 10/25/18 Christina Louis, DESIGN AND SALES CONSULTANT [address] [place] [address] Nurse Practitioner Medical Oncology 10/25/18 documented as of this encounter
--- OUTSIDE RECORDS SUMMARY | 2024-04-24 05:52 | XMS_ITS | Encounter Summary ---
Author Organization [facility] Address [address] [place] [address] Care Team Providers Care Shingle Weaver Name Role Phone Erica Rodrigues MD Unavailable Gasper Kaba MD Unavailable [phone] Brandy Aguirre SALESPERSON [employer] Unavailable [phone] Jo-Ann Morrow PhD Unavailable [phone] Christina Louis PHONE COUNSELOR Unavailable [phone] Sylvia Dawson Primary Care Provider [phone] Reason for Visit * Reason Onset Date Comments Med Refill 01/07/2022 Encounter Details Date Type Department Care Team (Late st Contact Info) Description 01/07/2022 Telephone [facility] Family Medicine [address] [facility] [address] [place] [address] Coni Corbin LPN Med Refill Social History Tobacco Use Types Packs/Day Years [...] on file Legal Sex 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 Gender Identity Not on file Sexual Orientation Not on file 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 on file Not on file Not on file documented as of this encounter Miscellaneous Notes * Telephone Encounter - Sylvia Dawson PA - 01/07/2022 11:29 AM CDT done * Telephone Encounter - Coni Corbin LPN - 01/07/2022 9:59 AM CDT Refill request Valtrex 500mg #90 1 tablet daily Last fill 05/22/21 Last OV 08/26/21 Next OV 02/27/22 documented in this encounter Plan of Treatment Not on file documented as of this encounter Visit Diagnoses Not on filedocumented in this encounter Care Teams Shingle Weaver Relationship Specialty Start Date End Date Sylvia Dawson PA [address] [facility] [address] [place] [address] PCP - General Internal Medicine 01/05/20 Erica Rodrigues MD [address] [facility] [address] [place] [address] Radiation Oncologist Radiation Oncology 10/25/18 Gasper Kaba MD [address] [place] [address] Surgeon Surgical Oncology 10/25/18 Brandy Aguirre, SALESPERSON [employer] EQUIPMENT [address] [place] [address] Nurse Practitioner Certified Clinical Nurse Specialist 10/25/18 Jo-Ann Morrow, PhD [address] [place] [address] Nurse Practitioner Radiation Oncology 10/25/18 Christina Louis, PHONE COUNSELOR [address] [place] [address] Nurse Practitioner Medical Oncology 10/25/18 documented as of this encounter
--- OUTSIDE RECORDS SUMMARY | 2024-04-24 05:52 | XMS_ITS | Encounter Summary ---
Author Organization [facility] Healthcare Address [address] [place] [address] Care Team Providers Care Tunnel Worker Name Role Phone Erica Rodrigues MD Unavailable Gasper Kaba MD Unavailable Brandy Aguirre Unavailable [phone] Jo-Ann Morrow PhD Unavailable Christina Louis NP Unavailable [phone] Sylvia Dawson Primary Care Provider [phone] Reason for Referral * MRI/CAT/PET Scan (Routine) - Closed Specialty Diagnoses / Procedures Referred By Niranjan farrell Referred To Contact Radiology Diagnoses Cerebral aneurysm, nonruptured Internal carotid artery dissection (CMS/HCC) (HCC) Procedures CTA Head Neck W WO Contrast Lizzie Green NP [address] [place] [address] Phone: tel: fax: [address] [address] Referral ID Status Reason Start Date Expiration Date Visits Re quested Visits Authorized [id number] Closed 03/17/2022 04/15/2022 1 1 CCO WAREHOUSE MANAGER Reason for Visit * MRI/CAT/PET Scan (Routine) - Closed Specialty Diagnoses / Procedures Referred By Contac t Referred To Contact Radiology Diagnoses Cerebral aneurysm, nonruptured Internal carotid artery dissection (CMS/HCC) ([facility]) Procedures CTA Head Neck W WO Lizzie Benito, JENNI [address] [place] [address] Phone: tel: fax: [address] [phone] Referral ID Status Reason Start Date Expiration Date Visits Re quested Visits Authorized [id number] Closed 03/17/2022 04/15/2022 1 1 Encounter Details Date Type Department Care Team (Latest Contact Info) Description 03/20/2022 1:39 PM TOBACCO WAREHOUSE MANAGER - 03/20/2022 11:59 PM TOBACCO WAREHOUSE MANAGER Hospital Encounter [facility] [place] [address] Cerebral aneurysm, nonruptured; Internal carotid artery dissection (CMS/HCC) (HCC) Discharge Disposition: Discharge to home or self [...] on file Legal Sex Female 3:42 AM TOBACCO WAREHOUSE MANAGER Gender Identity Not on file Sexual Orientation Not on file 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 file Not on file Not on file documented as of this encounter Medications at Time of Discharge multivitamin with minerals tabletIndication s:Vitamin Deficiency Prevention Take 1 tablet by mouth every morning vit Q-I-jjqezy-zinc- lutein (PreserVision Lutein) 226-90-0.8-5 mg capsuleIndicatio ns:Eye support Take 1 tablet by mouth 2 (two) times a day aspirin 325 mg enteric coated tablet Take 1 tablet (325 mg total) by mouth daily 30 tablet 11 03/17/2022 2 atenoloL (TENORMIN) 25 mg tablet TAKE 1 TABLET(25 MG) BY MOUTH DAILY 90 tablet 1 03/10/2022 3 butalbital-aceta minophen-caffein e-codeine (FIORICET WITH CODEINE) 47-218-54-30 mg per capsule Take 1 capsule by [...] CONTRAST Schedule Routine, Read Routine (OP Routine) 03/20/2022 3:08 PM TOBACCO WAREHOUSE MANAGER Cerebral aneurysm, nonruptured Internal carotid artery dissection (CMS/HCC) (HCC) POCT CREATININE - DEVICE Routine 03/20/2022 2:06 PM TOBACCO WAREHOUSE MANAGER documented in this encounter Results * CTA Head Neck W WO Contrast (03/20/2022 3:08 PM TOBACCO WAREHOUSE MANAGER) Anatomical Region Laterality Modality Head and Neck N/A Computed Tomogra phy 03/20/2022 5:25 PM TOBACCO WAREHOUSE MANAGER Impressions 03/20/2022 7:17 PM TOBACCO WAREHOUSE MANAGER 1. No acute intracranial process. 2. Short [...] Jesus MD, PHD Narrative 03/20/2022 7:17 PM TOBACCO WAREHOUSE MANAGER EXAMINATION: Computed tomography angiography (CTA) of the [...] image 323) with good opacification distally. The nfsvbo-ql-Lyttxj is complete. The anterior and middle cerebral [...] image 323) with good opacification distally. The yrgkmo-zg-Ypvunp is complete. The anterior and middle cerebral [...] signed by: Rashard De Jesus MD, PHD Lizzie Green NP IMG CT PROCEDURES Final Re sult * POCT creatinine (03/20/2022 2:06 PM TOBACCO WAREHOUSE MANAGER) Creatinine POC 0.8 0.6 - 1.1 mg/dL KATHY REYNA Blood 03/20/2022 2:06 PM TOBACCO WAREHOUSE MANAGER 03/20/2022 2:06 PM TOBACCO WAREHOUSE MANAGER Lizzie Green NP LAB POCT ORDERABLES - TERI CE Final Result [facility] [place] [address] documented in this encounter Visit Diagnoses Diagnosis Cerebral aneurysm, nonruptured Internal carotid artery dissection (CMS/HCC) (HCC) documented in this encounter Administered Medications Inactive Administered Medications - up to 3 most recent administrations Medication Order MAR Action Action Date Dose Rate Site ioversoL (OPTIRAY 350) syringe 100 mL 100 mL, intravenous, Once in imaging, contrast, Starting on Leny 03/20/22 at 1441, For 1 dose Contrast Given 03/20/2022 2:58 PM TOBACCO WAREHOUSE MANAGER 95 mL documented in this encounter Care Teams Tunnel Worker Relationship Specialty Start Date End Date Sylvia Dawson PA [address] [place] [address] PCP - General Internal Medicine 01/05/20 Erica Rodrigues MD [address] [place] [address] Radiation Oncologist Radiation Oncology 10/25/18 Gasper Kaba MD [address] [place] [address] Surgeon Surgical Oncology 10/25/18 Brandy Aguirre, FISH ROE PROCESSOR [address] [place] [address] Nurse Practitioner Certified Clinical Nurse Specialist 10/25/18 Jo-Ann Morrow, PhD [address] [place] [address] Nurse Practitioner Radiation Oncology 10/25/18 Christina Louis VISUAL JOURNALIST [address] [place] [address] Nurse Practitioner Medical Oncology 10/25/18 documented as of this encounter
--- OUTSIDE RECORDS SUMMARY | 2024-04-24 05:52 | XMS_ITS | Encounter Summary ---
Author Organization [facility] [employer] [facility] Address [address] [place] [address] Phone Care Team Providers Care Janitorial Services Supervisor Name Role Phone Erica Rodrigues MD Unavailable Gasper Kaba MD Unavailable Brandy Aguirre COPPER PLATE PRINTER Unavailable [phone] Jo-Ann Morrow PhD Unavailable [phone] Christina Louis PROCESS CHEMIST Unavailable [phone] Sylvia Dawson Primary Care Provider [phone] Encounter Details Date Type Department Care Team (Late st Contact Info) Description 03/26/2022 Orders Only [facility] Scanning, Provider Social History Tobacco Use Types [...] on file Legal Sex Female 3:42 AM SERVICE MECHANIC Gender Identity Not on file Sexual Orientation Not on file 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 file Not on file Not on file documented as of this encounter Plan of Treatment Not on file documented as of this encounter Procedures Procedure Name Priority Date/Time Associated Diagnosis Comments SCAN - LABS 03/26/2022 documented in this encounter Results * SCAN - LABS (03/26/2022) us Provider Scanning Final Result documented in this encounter Visit Diagnoses Not on filedocumented in this encounter Care Teams Janitorial Services Supervisor Relationship Specialty Start Date End Date Sylvia Dawson PA [address] [facility] [address] [place] [address] PCP - General Internal Medicine 01/05/20 Erica Rodrigues MD [address] [place] [address] Radiation Oncologist Radiation Oncology 10/25/18 Gasper Kaba MD [address] [place] [address] Surgeon Surgical Oncology 10/25/18 Brandy Aguirre, CARINA [address] [place] [address] Nurse Practitioner Certified Clinical Nurse Specialist 10/25/18 Jo-Ann Morrow, PhD [address] [place] [address] Nurse Practitioner Radiation Oncology 10/25/18 Christina Louis PROCESS CHEMIST [address] [place] [address] Nurse Practitioner Medical Oncology 10/25/18 documented as of this encounter
--- OUTSIDE RECORDS SUMMARY | 2024-04-24 05:52 | XMS_ITS | Encounter Summary ---
Author Organization [facility] Healthcare Address [address] [place] [address] Care Team Providers Care Product Controller Name Role Phone Erica Rodrigues MD Unavailable Gasper Kaba MD Unavailable Brandy Aguirre BOOKKEEPING CLERK Unavailable [phone] Jo-Ann Morrow PhD Unavailable [phone] Christina Louis DRUM DRIER Unavailable [phone] Sylvia Dawson Primary Care Provider [phone] Encounter Details Date Type Department Care Team (Late st Contact Info) Description 03/17/2022 Orders Only [facility] Neuro Interventional Radiology [address] [place] [address] Dian Rosa Cerebral aneurysm, nonruptured (Primary Dx) [...] on file Legal Sex Female 3:42 AM HIGH SPEED WARPER TENDER Gender Identity Not on file Sexual Orientation Not on file 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 file Not on file Not on file documented as of this encounter Plan of Treatment Not on file documented as of this encounter Results * Protime-INR (04/08/2022 11:33 AM HIGH SPEED WARPER TENDER) Pathologist [facility] PT 11.4 9.2 - 13.5 sec [facility] INR 1.1 0.9 - 1.2 [facility] Comment: Interpretive data Oral anticoagulant therapeutic ranges: Venous thromboembolism prophylaxis or treatment: 2.0-3.0 CARDIOLOGY Standard range: 2.0-3.0 High-intensity range: 2.5-3.5 Refer to indication-specific guidelines for appropriate target ranges for prosthetic heart valve replacement. Current interpretive data was last revised on 2019. Blood 04/08/2022 11:3 3 AM HIGH SPEED WARPER TENDER 04/08/2022 12:33 PM HIGH SPEED WARPER TENDER Narrative [facility] - 04/08/2022 12:57 PM HIGH SPEED WARPER TENDER CPAP ORDER us Abdiaziz Moss MD LAB BLOOD ORDERABLES Final Re sult [facility] [place] [address] * (ABNORMAL) CBC with auto differential (04/08/2022 11:33 AM HIGH SPEED WARPER TENDER) WBC 4.4 3.8 - 9.9 K/cumm [facility] Hgb 12.5 11.9 - 15.5 g/dL [facility] Hct 39.3 35.6 - 45.5 % [facility] Plt 218 150 - 400 K/cumm [facility] MPV 10.7 9.1 - 12.3 fL [facility] RBC 3.80(L) 3.90 - 5.20 M/cumm [facility] MCV 103.4(H) 81.3 - 96.4 fL [facility] MCH 32.9 27.1 - 33.3 pg [facility] MCHC 31.8(L) 32.3 - 35.7 g/dL [facility] RDW CV 12.9 11.1 - 14.9 % [facility] RDW SD 48.6(H) 35.7 - 48.1 fL [facility] NRBC abs 0.00 0.00 - 0.01 K/cumm [facility] Blood 04/08/2022 11:3 3 AM HIGH SPEED WARPER TENDER 04/08/2022 12:35 PM HIGH SPEED WARPER TENDER Narrative [facility] - 04/08/2022 12:44 PM HIGH SPEED WARPER TENDER CPAP ORDER us Abdiaziz Moss MD LAB BLOOD ORDERABLES Final Re sult [facility] [place] [address] * Basic metabolic panel (04/08/2022 11:33 AM HIGH SPEED WARPER TENDER) Sodium 141 135 - 145 mmol/L [facility] Potassium, pl 4.2 3.3 - 4.9 mmol/L [facility] Chloride 105 97 - 110 mmol/L [facility] CO2 28 22 - 32 mmol/L [facility] Anion gap 8 2 - 15 mmol/L [facility] BUN 13 8 - 25 mg/dL [facility] Creatinine 0.84 0.60 - 1.10 mg/dL [facility] Glucose 92 70 - 199 mg/dL [facility] Comment: Interpretive Data Fasting glucose >/= 126 [...] Current interpretive data was last revised 2017. Calcium 9.2 8.5 - 10.3 mg/dL [facility] Blood 04/08/2022 11:3 3 AM HIGH SPEED WARPER TENDER 04/08/2022 12:35 PM HIGH SPEED WARPER TENDER Narrative [facility] - 04/08/2022 1:04 PM HIGH SPEED WARPER TENDER CPAP ORDER Has the patient fasted?->No us Abdiaziz Moss MD LAB BLOOD ORDERABLES Final Re sult [facility] Department [place] [address] documented in this encounter Visit Diagnoses Diagnosis Cerebral aneurysm, nonruptured- Primary documented in this encounter Care Teams Product Controller Relationship Specialty Start Date End Date Sylvia Dawson PA [address] [facility] [address] [place] [id number] PCP - General Internal Medicine 01/05/20 Erica Rodrigues MD [address] [facility] [address] [place] [address] Radiation Oncologist Radiation Oncology 10/25/18 Gasper Kaba MD [address] LL [facility] [address] [place] [address] Surgeon Surgical Oncology 10/25/18 Brandy Aguirre, BOOKKEEPING CLERK [address] LL [facility] [address] [place] [address] Nurse Practitioner Certified Clinical Nurse Specialist 10/25/18 Jo-Ann Morrow, PhD [address] LL [facility] [address] [place] [address] Nurse Practitioner Radiation Oncology 10/25/18 Christina Louis NP [address] [facility] [address] [place] [address] Nurse Practitioner Medical Oncology 10/25/18 documented as of this encounter
--- OUTSIDE RECORDS SUMMARY | 2024-04-24 05:52 | XMS_ITS | Encounter Summary ---
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 [H35.353] Procedures MN VITRECTOMY,MECHANICAL VITRECTOMY - 25 GAUGE Referral ID Status Reason Start Date Expiration Date Visits Re quested Visits Authorized [id number] 1 1 Encounter Details Date Type Department Care Team (Late st Contact Info) Description 02/11/2022 10:15 AM CDT Anesthesia Event [facility] Operating Room [facility] [address] [place], [place] [id number] Fadi Mckeon MD [address] [place] [address] Saida Edmonds NP [address] [facility] [phone] [place] [address] [phone] (work) Anesthesia Record Procedure Summary Procedure Name Responsible Anesthesiologist Anesthesia Start Time Anesthesia Stop Time VITRECTOMY - 25 GAUGE (Left: Eye) Fadi Mckeon MD 02/11/22 1015 02/11/22 1112 Events Date Time Event Comment 02/11/2022 0947 In Preop 1015 An Start 1019 1020 In Room 1020 An Start Data 1025 Start Supplemental O2 1026 Proc Start 1027 Anesthesia Ready 1038 Incision Start 1059 an stop data 1100 Proc Fin 1109 Out of Room 1111 Handoff to RN I completed my handoff [...] disposition at the time of handoff: PACU 1112 An Stop Meds Name Total midazolam PF 1 mg lidocaine (cardiac) syringe 2 % 50 mg propofol 30 mg fentaNYL 75 mcg Lactated Ringer's (LR) infusion 300 mL * Agents Name O2% N2O O2 * Blood No blood administrations on file. Lines, Drains, and Airways Type Details Placement Removal RETIRED Surgical Site 11/11/18; 0945; Vagina; 04/10/22; 1005 11/11/18 0945 by Meme Grant RN 04/10/22 1005 by Kera Carrasco RN RETIRED Surgical Site 02/11/22; 0952; Le ft; Eye; 04/10/22; 1005 02/11/22 0952 by Cassie Snow RN 04/10/22 1005 by Kera Carrasco RN Peripheral IV Placement Date: 02/11/22; Placement Time: 1012; Catheter Size: 22 G; Orientation: Left, Posterior; Location: Hand; Inserted by: yisel toussaint RN; Insertion Attempts: 1; Removal Date: 02/11/22; Removal Time: 1155 02/11/22 1012 by Yisel Toussaint RN 02/11/22 1155 by Gricel Burns RN documented in this encounter Social History [...] file Legal Sex Female 3:42 AM MARINE INSURANCE CLAIM EXAMINER Gender Identity Not on file Sexual Orientation Not on file 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 Not on file Not on file documented as of this encounter OR Notes * Anesthesia Postprocedure Evaluation - César Simmons MD - 02/11/2022 11:25 AM CDT Patient: Yesika Denney Procedure Summary Date: 02/11/22 Room / Location: [facility] CAM OR POD 4 ROOM M / [facility] OR POD 4 Anesthesia Start: 1015 Anesthesia Stop: 1112 Procedures: VITRECTOMY - 25 GAUGE (Left: Eye) EXCHANGE - AIR/FLUID (Left: Eye) Diagnosis: Cystoid macular edema of both eyes (Cystoid macular edema of both eyes [H35.353]) Surgeons: Jessy Adame MD Responsible Provider: Fadi Mckeon MD Anesthesia Type: MAC ASA Status: 2 Anesthesia Type: MAC Last vitals BP 133/78 Pulse 53 Temp 36.4 ??C (97.5 ??F) Resp 8 SpO2 100% Anesthesia Post Evaluation Patient location during evaluation: PACU Patient participation: complete - patient participated Level of consciousness: fully awake Pain management: adequate Airway patency: adequate Cardiovascular status: acceptable and hemodynamically stable Respiratory status: acceptable and room air Hydration status: euvolemic Pt is: normothermic Nausea/Vomiting status: none No notable events documented. * [facility] 02/04/2022 9:52 AM CDT Images from the original note were not included. [facility] for Preoperative Assessment and Planning Preoperative Evaluation Record Evaluation type/location: [facility] from [facility] Planned procedure site: [facility] CAM OR (Pod 4) Date: 02/04/22 [...] - sinus tachycardia. Pertinent negatives: CAD ; SD ; CABG ; valvular heart disease; valve [...] provided by telephone and electronically sent via [employer]. Patient verbalized understanding of preoperative plan. Blood [...] periprocedural period. Please call the CPAP attending ([phone]) with any questions. Patient's COVID19 status is: [...] hyperplasia ??? Brain aneurysm Followed by Dr. Chicoine: Every 3 years ??? Breast cancer (CMS/HCC) [...] Ectopic Multiple Live Births 3 Obstetric Comments Ruby Software Developer history: 3 para 3, 1st term age [...] 600 PLUS D ORAL) 02/02/2022 -- -- Ronda Ruano MD coenzyme Q10 200 mg capsule 02/02/2022 [...] 500 mg by mouth every morning vit F-F-lzbloi-zinc-lutein (PreserVision Lutein) 226-90-0.8-5 mg capsule 02/03/2022 -- [...] valACYclovir (Valtrex) 500 mg tablet ??? vit I-J-uehccq-zinc-lutein (PreserVision Lutein) 226-90-0.8-5 mg capsule ??? zinc [...] mitral, tricuspid and pulmonic regurgitation. Compared with 2020: no change. Stress test(s): N/A Cardiac catheterization(s): [...] Medication protocol when under care of a ACADEMIC COACH Planned anesthesia: MAC Induction: Induction: intravenous. Postoperative Plan: No plan for postoperative opioid use. No postoperative mechanical ventilation intended. Patient's planned disposition post procedure is Outpatient. No trial extubation planned. Informed Consent: Discussed plan with ACADEMIC COACH. Anesthesia plan and risks discussed with patient [...] free injection intravenous, As needed, Starting on Thu02/11/22 at 1016, Anesthesia Intra-op Given 02/11/2022 10:22 AM CDT 25 mcg Given 02/11/2022 10:16 AM CDT 50 mcg Lactated Ringer's (LR) infusion 30 mL/hr, intravenous, Continuous, Starting on Thu02/11/22 at 1030 Rate/Dose Verify 02/11/2022 10:15 AM CDT 30 mL/hr New Bag 02/11/2022 9:53 AM CDT 30 mL/hr 30 mL/hr lidocaine (cardiac) (XYLOCAINE) preservative free injection intravenous, As needed, Starting on Thu02/11/22 at 1022, Anesthesia Intra-op, Indications: Ventricular ArrhythmiasIndications:Ventricular Arrhythmias Given 02/11/2022 10:22 AM CDT 50 mg midazolam (VERSED) 1 mg/mL preservative free injection intravenous, Administer over 2 Minutes, As needed, Starting on Thu02/11/22 at 1016, Anesthesia Intra-op Given 02/11/2022 10:16 AM CDT 1 mg propofoL (DIPRIVAN) 10 mg/mL IV intravenous, As needed, Starting on Thu02/11/22 at 1022, Anesthesia Intra-op Given 02/11/2022 10:22 AM CDT 30 mg documented in this encounter Care Teams Bulk Cooler Installer Relationship Specialty Start Date End Date Sylvia Dawson PA [address] [facility] [address] [place] [address] PCP - General Internal Medicine 01/05/20 Erica Rodrigues MD [address] [place] [address] Radiation Oncologist Radiation Oncology 10/25/18 Gaspre Kaba MD [address] LL [facility] [address] [place] [address] Surgeon Surgical Oncology 10/25/18 Brandy Aguirre, DIRECTOR OF PEDIATRIC REHABILITATION [address] [place] [address] Nurse Practitioner Certified Clinical Nurse Specialist 10/25/18 Jo-Ann Morrow, PhD [address] LL [facility] [address] [place] [address] Nurse Practitioner Radiation Oncology 10/25/18 Christina Louis ELEMENTARY SCHOOL PRINCIPAL [address] LL [facility] [address] [place] [address] Nurse Practitioner Medical Oncology 10/25/18 documented as of this encounter
--- OUTSIDE RECORDS SUMMARY | 2024-04-24 05:52 | XMS_ITS | Encounter Summary ---
Author Organization [facility] Address [address] [place] [address] Phone Care Team Providers Care Dedicated Intermodal Truck Driver Name Role Phone Erica Rodrigues MD Unavailable Gasper Kaba MD Unavailable Brandy Aguirre [employer] CREWMAN Unavailable Jo-Ann Morrow PhD Unavailable [phone] Christina Louis [employer] Unavailable [phone] Sylvia Dawson Primary Care Provider [phone] Encounter Details Date Type Department Care Team (Late st Contact Info) Description 03/28/2022 10:00 AM CHIEF SECURITY OFFICER Office Visit [facility] Neurosurgery [address] [facility] Advanced Medicine 6th [place] [address] [place] [address] Abdiaziz Moss MD [address] [place] [address] Cerebral aneurysm, nonruptured (Primary Dx) Social History [...] on file Legal Sex Female 3:42 AM CHIEF SECURITY OFFICER Gender Identity Not on file Sexual Orientation Not on file 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 file Not on file Not on file documented as of this encounter Last Filed Vital Signs Vital Sign Reading Time Taken Comments Blood Pressure 120/76 03/28/2022 10:47 AM CHIEF SECURITY OFFICER Pulse 62 03/28/2022 10:47 AM CHIEF SECURITY OFFICER Temperature - - Respiratory Rate - - Oxygen Saturation - - Inhaled Oxygen Concentration - - Weight 64 kg (141 lb 3.2 oz) 03/28/2022 10:47 AM CHIEF SECURITY OFFICER Height 160 cm (5' 3 ) 03/28/2022 10:47 AM CHIEF SECURITY OFFICER Body Mass Index 25.01 03/28/2022 10:47 AM CHIEF SECURITY OFFICER documented in this encounter Progress Notes * Abdiaziz Moss MD - 03/28/2022 10:00 AM CST Patient Name: RAVEN DENNEY Medical Record Number (MRN): [id number] Date of (): 1960 Encounter Date: 03/28/2022 PRIMARY CARE PROVIDER: Sylvia Dawson PA REFERRING PROVIDER: Sylvia Dawson PA INTERVAL HISTORY Raven Denney is a 61-year-old woman with a known anterior communicating artery aneurysm. She underwent a cerebral angiogram approximately 3 weeks ago. We have discussed treatment of this aneurysm with a web device or possibly stent assisted coiling. Since her angiogram she has developed severeneck pain, blurry vision in her left eye, and occasional episodes where she has difficulty getting her words out. She underwent a CTA of the head neck and this demonstrated a right carotid dissection. A small, old dissection had been noted on her cerebral angiogram and this appears to have worsenedsince the angiogram. Currently she is asymptomatic and has no complaints in the office today. VITAL SIGNS Vitals: 03/28/22 1047 BP: 120/76 Pulse: 62 Weight: 64 kg (141 lb 3.2 oz) Height: 160 cm (5' [...] pinprick sensation was normal REVIEW OF IMAGING: I personally reviewed the patient's CT of the head neck. Again noted is the anterior communicating artery aneurysm as well as a new right cervical carotid dissection with greater than 75% stenosis. ASSESSMENT AND PLAN: Raven Denney is a 61-year-old woman with a known anterior communicating artery aneurysm that had planned treatment. She is a new right carotid dissection. She is been initiated on dual anti-platelet therapy. Since that time she is not had any new episodes. I have counseled her that she may need a carotid stent at the time of her aneurysms treatment. I have instructed her to return to the hospital immediately should she have any more episodes consistent with TIA. We will proceed with a new cerebral angiogram at the time of her procedure with possible right carotid stent and then proceeding to treatment of the anterior communicating artery aneurysm pending the findings of the new angiogram under anesthesia. Thank you for allowing me to participate in the care of your patient. If you have any questions, feel free to contact me at [phone]. Sincerely, Abdiaziz Moss MD F SECURITY OFFICER documented in this encounter Plan of Treatment Not on file documented as of this encounter Visit Diagnoses Diagnosis Cerebral aneurysm, nonruptured- Primary documented in this encounter Care Teams Dedicated Intermodal Truck Driver Relationship Specialty Start Date End Date Sylvia Dawson PA [address] [facility] [address] [place] [address] PCP - General Internal Medicine 01/05/20 Erica Rodrigues MD [address] [facility] [address] [place] [address] Radiation Oncologist Radiation Oncology 10/25/18 Gasper Kaba MD [address] [facility] [address] [place] [address] Surgeon Surgical Oncology 10/25/18 Brandy Aguirre, [employer] CREWMAN [address] [place] [address] Nurse Practitioner Certified Clinical Nurse Specialist 10/25/18 Jo-Ann Morrow, PhD [address] [facility] [address] [place] [address] Nurse Practitioner Radiation Oncology 10/25/18 Christina Louis [employer] [address] [facility] [address] [place] [address] Nurse Practitioner Medical Oncology 10/25/18 documented as of this encounter
--- OUTSIDE RECORDS SUMMARY | 2024-04-24 05:52 | XMS_ITS | Encounter Summary ---
Author Organization [facility] Address [address] [place] [address] Care Team Providers Care Merchandise Execution Leader Name Role Phone Erica Rodrigues MD Unavailable Gasper Kaba MD Unavailable Brandy Aguirre PROSTHODONTIST/OWNER Unavailable [phone] Jo-Ann Morrow PhD Unavailable Christina Louis GLOVE PAIRER Unavailable [phone] Sylvia Dawson Primary Care Provider [phone] Reason for Referral * Consultation (Routine) - Closed Specialty Diagnoses / Procedures Referred By Contac t Referred To Contact Sleep Medicine / Pulmonology Diagnoses Daytime sleepiness Sylvia Dawson PA [address] [facility] [address] [place] [address] Phone: tel: fax: Ambrosio Acosta MD [address] [facility] [address] [place] [address] Phone: tel: fax: Referral ID Status Reason Start Date Expiration Date V isits Requested Visits Authorized [id number] Closed Specialty Services Required 02/27/2022 03/29/2023 1 1 Question Answer Please select the performing region: [facility] [[id number]] Please select the performing department: [facility] [[id number]] To provider: AMBROSIO ACOSTA [[id number]] # of visits: 1 Comments Gasping for air/stop breathing at night. Daytime sleeping. INE WASHER Reason for Visit * Reason Comments Wellness Visit Encounter Details Date Type Department Care Team (Late st Contact Info) Description 02/27/2022 9:30 AM MACHINE WASHER Office Visit [facility] Family Medicine [address] [place] [address] Sylvia Dawson PA [address] [place] [address] Annual physical exam (Primary Dx); Daytime sleepiness; Vasomotor symptoms due to menopause; Mixed hyperlipidemia; Hypertension, essential; Fatigue, unspecified type; Hyperglycemia; Recurrent cold sores; Migraine with aura and without status migrainosus, not intractable; 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 (CMS/HCC) (HCC); Cerebral arterial aneurysm; Need for Tdap vaccination; Flu vaccine need; BMI 24.0-24.9, adult Social History Tobacco Use [...] file Legal Sex Female 3:42 AM MACHINE WASHER Gender Identity Not on file Sexual Orientation Not on file 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 file Not on file Not on file documented as of this encounter Last Filed Vital Signs Vital Sign Reading Time Taken Comments Blood Pressure 110/74 02/27/2022 9:44 AM MACHINE WASHER Pulse 74 02/27/2022 9:44 AM MACHINE WASHER Temperature 37.1 ??C (98.8 ??F) 02/27/2022 9:44 AM CS T Respiratory Rate - - Oxygen Saturation 95% 02/27/2022 9:44 AM MACHINE WASHER Inhaled Oxygen Concentration - - Weight 64 kg (141 lb) 02/27/2022 9:44 AM MACHINE WASHER Height 160 cm (5' 3 ) 02/27/2022 9:44 AM MACHINE WASHER Body Mass Index 24.98 02/27/2022 9:44 AM MACHINE WASHER documented in this encounter Ordered Prescriptions Prescription Sig Dispense Quantity Refills Last Filled Start Date End Date butalbital-acetami mjudxd-wzoicxsd-cq deine (FIORICET WITH CODEINE) 62-740-15-30 mg per capsule Take 1 capsule by mouth every 4 (four) hours as needed for headaches 20 capsule 02/28/2022 3 FLUoxetine (PROzac) 20 mg capsuleIndications :Vasomotor symptoms due to menopause Take 1 capsule (20 mg total) by mouth 2 (two) times a day 180 capsule 1 02/27/2022 3 valACYclovir (Valtrex) 500 mg tabletIndications: Recurrent cold sores Take 1 tablet (500 mg total) by mouth daily 90 tablet 2 02/27/2022 4 lisinopriL (PRINIVIL,ZESTRIL) 20 mg tablet Take 1 tablet (20 mg total) by mouth daily 90 tablet 1 02/27/2022 3 documented in this encounter Progress Notes * Sylvia Dawson PA - 02/27/2022 9:30 AM CST Images from the original note were not included. Subjective/Objective Patient ID: Yesika Denney is a 61 y.o. female. Chief Complaint Wellness Visit HPI Patient presents for wellness exam and followup chronic concerns. Had cataract surgery and had complication of cystoic macular edema. Following with Dr. Adame at [facility] and currently on steroid drops. Rechecked again January had left victerctomy -- had to restart steroid drops again. Rhuem -- Stable -- Last seen last week. Plaquenil and MTX, sulfasalazine. Sept -- MRA Brain aneurysm has changes. Has angiogram scheduled in the next week or so Dr. Moss HTN - lisinopril 40mg and tenormin 25 While on vacation [place] noted decreased breathing/stopp breathing and then gasping. Sometimes daytime sleepiness. Likes to nap --- Mood -- Prozac 20mg Tried to ween and had hotflashes so restarted and now doing 20mg bid with good results. LDL is still very high. Has declined statin. Migraines -- weather related. Requests firoicet with codeine Mamm -screening due again after 02/19/2022 Tdap - needs (left without getting so will address at next visit) Shingrix x 2 done FLU UTD Colonoscopy - 02/2020-->2029 Review of Systems See HPI Vitals: 02/27/22 0944 BP: 110/74 BP Location: Left arm Patient Position: Sitting Pulse: 74 Temp: 37.1 ??C (98.8 ??F) TempSrc: Oral SpO2: 95% Weight: 64 kg (141 lb) Height: 160 cm (5' 3 ) [...] health. Reviewed immunizations Reviewed age appropirate screenings. Daytime sleepiness (R40.0) Assessment & Plan: This is a significant, separately identifiable problem [...] evaluation. Will make referral and await recommendations Orders: - Ambulatory referral to Sleep Medicine; Future Vasomotor symptoms due to menopause (N95.1) - FLUoxetine (PROzac) 20 mg capsule; Take 1 capsule (20 mg total) by mouth 2 (two) times a day Mixed hyperlipidemia (E78.2) Assessment & Plan: Insert hyperlipidemia patient is still not interested in a statin. Will recheck labs again. Encouraged patient to follow low fat/low chol diet like the Mediterranean diet. Increase good fats in the diet. Increase exercise. Monitor labs as needed. Orders: - Lipid panel; Future Hypertension, essential (I10) Assessment & Plan: Bp is stable/in acceptable range for any co-morbidities. Encouraged to limit sodium intake and exercise for weight control. Continue lisinopril and to Gato Orders: - Comprehensive metabolic panel; Future Fatigue, unspecified type (R53.83) Assessment & Plan: Probably multifactorial. Check labs and followup to re-evaluate Orders: - CBC with auto differential; Future - TSH; Future Hyperglycemia (R73.9) Assessment & Plan: Pre-diabetes/hyperglycemia is a precursor to Dm. Stressed importance of working on diet (decrease your simple sugars and one carbohydrate with each meal) and increase you exercise to achieve weight loss and this will help prevent you from progressing to diabetes. Orders: - Hemoglobin A1c; Future Recurrent cold sores (B00.1) Assessment & Plan: Continue Valtrex p.r.n. for cold sores Orders: - valACYclovir (Valtrex) 500 mg tablet; Take 1 tablet (500 mg total) by mouth daily Migraine with aura and without status migrainosus, not intractable (G43.109) Assessment & Plan: Patient experiences migraines. Seems to trigger with weather changes. Requests a refill of the Fioricet with codeine as it seems to help. Will send short supply to pharmacy. 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 (CMS/HCC) ([facility]) (M06.041,M06.042) Assessment & Plan: Continue per Rheumatology. Continue with Plaquenil methotrexate and sulfasalazine Cerebral arterial aneurysm (I67.1) Assessment & Plan: Continue monitor by MRA. Per patient there has been some change Following with Dr. Moss Await recommendation Need for Tdap vaccination (Z23) Assessment & Plan: Tdap updated in the office today Orders: - Tdap vaccine greater than or equal to 7yo IM Flu vaccine need (Z23) Assessment & Plan: Flu vaccine updated in the office today Orders: - Flu Vaccine Quad PF 6m+ IM - Fluarix / FluLaval / Fluzone BMI 24.0-24.9, adult (Z68.24) Assessment & Plan: Weight/BMI is in healthy range. Continue healthy lifestyle to maintain. Other orders - lisinopriL (PRINIVIL,ZESTRIL) 20 mg tablet; Take 1 tablet (20 mg total) by mouth daily - zjxweoghfs-ypiqfbogazyfj-kaeexccd-codeine (FIORICET WITH CODEINE) 66-096-20-30 mg per capsule; Take 1 capsule by mouth every 4 (four) hours as needed for headaches *This note is dictated using UIBLUEPRINT voice recognition software, variances in spelling and vocabulary are possible and unintentional.* Sylvia Dawson PA-C Cosigned by Mark Gonzalez MD at 03/02/2022 9:45 PM MACHINE WASHER INE WASHER INE WASHER documented in this encounter Miscellaneous Notes * Assessment & Plan Note - Sylvia Dawson PA - 03/01/2022 7:30 PM MACHINE WASHER Associated Problem(s): Hyperglycemia Pre-diabetes/hyperglycemia is a precursor to Dm. Stressed importance of working on diet (decrease your simple sugars and one carbohydrate with each meal) and increase you exercise to achieve weight loss and this will help prevent you from progressing to diabetes. INE WASHER * Assessment & Plan Note - Sylvia Dawson PA - 03/01/2022 7:30 PM MACHINE WASHER Associated Problem(s): Recurrent cold sores Continue Valtrex p.r.n. for cold sores INE WASHER * Assessment & Plan Note - Sylvia Dawson PA - 03/01/2022 7:30 PM MACHINE WASHER Associated Problem(s): Annual physical exam Encouraged healthy lifestyle, good nutrition and exercise. Encouraged Calcium and Vitamin D and weight bearing exercise for bone health. Reviewed immunizations Reviewed age appropirate screenings. INE WASHER * Assessment & Plan Note - Sylvia Dawson PA - 03/01/2022 7:29 PM MACHINE WASHER Associated Problem(s): Daytime sleepiness (Resolved 04/12/2023) This is a significant, separately identifiable problem [...] evaluation. Will make referral and await recommendations INE WASHER * Assessment & Plan Note - Sylvia Dawson PA - 03/01/2022 7:28 PM MACHINE WASHER Associated Problem(s): Need for Tdap vaccination (Resolved 04/12/2023) Tdap updated in the office today INE WASHER * Assessment & Plan Note - Sylvia Dawson PA - 03/01/2022 7:28 PM MACHINE WASHER Associated Problem(s): Flu vaccine need (Resolved 04/12/2023) Flu vaccine updated in the office today INE WASHER * Assessment & Plan Note - Sylvia Dawson PA - 03/01/2022 7:28 PM MACHINE WASHER Associated Problem(s): BMI 24.0-24.9, adult (Resolved 04/22/2022) Weight/BMI is in healthy range. Continue healthy lifestyle to maintain. INE WASHER * Assessment & Plan Note - Sylvia Dawson PA - 03/01/2022 7:28 PM MACHINE WASHER Associated Problem(s): Fatigue Probably multifactorial. Check labs and followup to re-evaluate INE WASHER * Assessment & Plan Note - Sylvia Dawson PA - 03/01/2022 7:28 PM MACHINE WASHER Associated Problem(s): Hypertension, essential Bp is stable/in acceptable range for any co-morbidities. Encouraged to limit sodium intake and exercise for weight control. Continue lisinopril and to Gato INE WASHER * Assessment & Plan Note - Sylvia Dawson PA - 03/01/2022 7:27 PM MACHINE WASHER Associated Problem(s): Mixed hyperlipidemia Insert hyperlipidemia patient is still not interested in a statin. Will recheck labs again. Encouraged patient to follow low fat/low chol diet like the Mediterranean diet. Increase good fats in the diet. Increase exercise. Monitor labs as needed. INE WASHER * Assessment & Plan Note - Sylvia Dawson PA - 03/01/2022 7:26 PM MACHINE WASHER Associated Problem(s): Rheumatoid arthritis with negative rheumatoid factor (HCC) Continue per Rheumatology. Continue with Plaquenil methotrexate and sulfasalazine INE WASHER * Assessment & Plan Note - Sylvia Dawson PA - 03/01/2022 7:26 PM MACHINE WASHER Associated Problem(s): Migraine with aura Patient experiences migraines. Seems to trigger with weather changes. Requests a refill of the Fioricet with codeine as it seems to help. Will send short supply to pharmacy. INE WASHER * Assessment & Plan Note - Sylvia Dawson PA - 03/01/2022 7:25 PM MACHINE WASHER Associated Problem(s): Cerebral arterial aneurysm Continue monitor by MRA. Per patient there has been some change Following with Dr. Isa Pinto recommendation INE WASHER documented in this encounter Plan of Treatment Scheduled Referrals Name Type Priority Associated Diagnoses Order Schedule Ambulatory referral to Sleep Medicine Outpatient Referral Routine Daytime sleepiness Expected: 03/13/2022 (Approximate), Expires: 02/27/2023 documented as of this encounter Procedures Procedure Name Priority Date/Time Associated Diagnosis Comments LIPID PANEL Routine 03/25/2022 8:40 AM MACHINE WASHER Mixed hyperlipidemia CBC WITH AUTO DIFFERENTIAL Routine 03/25/2022 8:39 AM MACHINE WASHER Fatigue, unspecified type TSH Routine 03/25/2022 8:39 AM MACHINE WASHER Fatigue, unspecified type HEMOGLOBIN A1C Routine 03/25/2022 8:39 AM MACHINE WASHER Hyperglycemia COMPREHENSIVE METABOLIC PANEL Routine 03/25/2022 8:39 AM MACHINE WASHER Hypertension, essential documented in this encounter Results * (ABNORMAL) Lipid panel (03/25/2022 8:40 AM MACHINE WASHER) Cholesterol 336(H) 100 - 199 mg/dL [facility] - 01 Triglycerides 91 0 - 149 mg/dL [facility] 01 HDL Cholesterol 104 >39 mg/dL [facility] - 01 VLDL 14 5 - 40 mg/dL [facility] - 01 LDL, calculated 218(H) 0 - 99 mg/dL [facility] - 01 LDL, comment Comment [facility] - 01 Comment: Possible Familial Hypercholesterolemia. FH should be suspected when fasting LDL cholesterol is above 189 mg/dL or non-HDL cholesterol is above 219 mg/dL. A family history of high cholesterol and heart disease in 1st degree relatives should be collected. J Clin Lipidol 2011;5:133-140 Blood 03/25/2022 8:40 AM MACHINE WASHER 03/25/2022 Narrative [facility] - 03/26/2022 7:36 AM MACHINE WASHER Performed at: ?? - [facility] ??[id number] Service Vehicle Operator: John Lozoya PhD, Phone: ??[phone] Specimen Comment: A courtesy copy of this report has been sent to [phone] Sylvia JONES LAB BLOOD ORDERABLES Final Result [facility] - 01 * Hemoglobin A1c (03/25/2022 8:39 AM MACHINE WASHER) Hgb A1C 5.0 4.8 - 5.6 % [facility] - 01 Comment: ? Prediabetes: 5.7 - 6.4 ? Diabetes: >6.4 ? Glycemic control for adults with diabetes: <7.0 Blood 03/25/2022 8:39 AM MACHINE WASHER 03/25/2022 Narrative [facility] - 03/26/2022 9:37 AM MACHINE WASHER Performed at: ?? - [facility] [address] ??[id number] Service Vehicle Operator: John Lozoya PhD, Phone: ??[phone] Specimen Comment: A courtesy copy of this report has been sent to [phone] Sylvia JONES LAB BLOOD ORDERABLES Final Result [facility] - 01 * TSH (03/25/2022 8:39 AM MACHINE WASHER) [facility] TSH 4.250 0.450 - 4.500 uIU/mL [facility] - 01 Blood 03/25/2022 8:39 AM MACHINE WASHER 03/25/2022 Narrative [facility] - 03/26/2022 7:36 AM MACHINE WASHER Performed at: ?? - [facility] [address] ??[id number] Service Vehicle Operator: John Lozoya PhD, Phone: ??[phone] Syvlia JONES LAB BLOOD ORDERABLES Final Result [facility] - * (ABNORMAL) Comprehensive metabolic panel (03/25/2022 8:39 AM MACHINE WASHER) [facility] Glucose 89 70 - 99 mg/dL [facility] - 01 BUN 10 8 - 27 mg/dL [facility] - 01 Creatinine, Serum 0.76 0.57 - 1.00 mg/dL [facility] - 01 eGFR 89 >59 mL/min/1.7 3 [facility] - 01 BUN/creat ratio 13 12 - 28 [facility] - 01 Sodium 139 134 - 144 mmol/L [facility] - 01 Potassium, sr 3.9 3.5 - 5.2 mmol/L [facility] - 01 Chloride 101 96 - 106 mmol/L [facility] - 01 CO2 26 20 - 29 mmol/L [facility] - 01 Calcium 9.0 8.7 - 10.3 mg/dL [facility] - 01 Protein, sr 6.4 6.0 - 8.5 g/dL [facility] - 01 Albumin 4.6 3.8 - 4.8 g/dL [facility] - 01 Globulin, Total 1.8 1.5 - 4.5 g/dL [facility] - 01 A/G Ratio 2.6(H) 1.2 - 2.2 [facility] - 01 Bilirubin, Total 0.3 0.0 - 1.2 mg/dL [facility] - 01 Alk phos 60 44 - 121 IU/L [facility] - 01 AST 15 0 - 40 IU/L [facility] - 01 ALT 14 0 - 32 IU/L [facility] - 01 Blood 03/25/2022 8:39 AM MACHINE WASHER 03/25/2022 Narrative [facility] - 03/26/2022 7:36 AM MACHINE WASHER Performed at: ??01 - [facility] [address] ??[id number] Service Vehicle Operator: John Lozoya PhD, Phone: ??[phone] us Sylvia JONES LAB BLOOD ORDERABLES Final Result [facility] - 01 * (ABNORMAL) CBC with auto differential (03/25/2022 8:39 AM MACHINE WASHER) WBC 4.4 3.4 - 10.8 x10E3/uL [facility] - 01 RBC 3.84 3.77 - 5.28 x10E6/uL [facility] - 01 Hgb 12.6 11.1 - 15.9 g/dL [facility] - 01 Hct 38.8 34.0 - 46.6 % [facility] - 01 MCV 101(H) 79 - 97 fL [facility] - 01 MCH 32.8 26.6 - 33.0 pg [facility] - 01 MCHC 32.5 31.5 - 35.7 g/dL [facility] - 01 Rdw 11.8 11.7 - 15.4 % [facility] - 01 Platelets 233 150 - 450 x10E3/uL [facility] - 01 Neutrophils pct 55 Not Estab. % [facility] - 01 Lymphs pct 33 Not Estab. % [facility] - 01 Monocytes pct 10 Not Estab. % [facility] - 01 Eosinophils pct 1 Not Estab. % [facility] - 01 Basophil pct 1 Not Estab. % [facility] - 01 Neutrophil abs 2.4 1.4 - 7.0 x10E3/uL [facility] - 01 [...] - 0.1 x10E3/uL [facility] - 01 Blood 03/25/2022 8:39 AM MACHINE WASHER 03/25/2022 Narrative [facility] - 03/26/2022 7:36 AM MACHINE WASHER Performed at: ?? - [facility] [address] ??[id number] Service Vehicle Operator: John Lozoya PhD, Phone: ??[phone] Sylvia JONES LAB BLOOD ORDERABLES Final Result Performing Organization Address City/State/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 (CMS/HCC) (HCC) Cerebral arterial aneurysm Cerebral aneurysm, nonruptured Need for Tdap vaccination Need for prophylactic vaccination with combined wxaaycxqad-gfkuhdg-rjeoiipcf (DTP) vaccine Flu vaccine need BMI 24.0-24.9, adult documented in this encounter Discontinued Medications Medication Sig Discontinue Reason Start Date End Da te lisinopriL (PRINIVIL,ZESTRIL) 40 mg tabletIndications:Hyper tension, essential TAKE 1 TABLET DAILY 02/07/2022 valACYclovir (Valtrex) 500 mg tabletIndications:Recur rent cold sores Take 1 tablet (500 mg total) by mouth daily Reorder 01/07/2022 02/27/2022 FLUoxetine (PROzac) 20 mg capsuleIndications:Stre ss TAKE 1 CAPSULE DAILY AND ONE 10MG CAPSULE FOR A DOSE INCREASE OF 30MG. Reorder 02/25/2022 02/27/2022 butalbital-acetaminophe f-neqcvplt-ikqiguo (FIORICET WITH CODEINE) 71-675-98-30 mg per capsuleIndications:Migr senia with aura and with status migrainosus, not intractable Take 1 capsule by mouth every 4 (four) hours as needed for headaches for up to 14 days 04/11/2021 04/25/2021 documented as of this encounter Orders Immunization/Injection Count Last Ordered Date First Ordered Date FLU VACCINE QUAD PF 6M+ IM - FLUARIX / FLULAVAL / FLUZONE- SYRINGE 1 02/27/2022 TDAP VACCINE GREATER THAN OR EQUAL TO 7YO IM 1 02/27/2022 documented in this encounter Care Teams Merchandise Execution Leader Relationship Specialty Start Date End Date Sylvia Dawson PA [address] [place] [address] PCP - General Internal Medicine 01/05/20 Erica Rodrigues MD [address] [facility] [address] [place] [address] Radiation Oncologist Radiation Oncology 10/25/18 Gasper Kaba MD [address] [facility] [address] [place] [address] Surgeon Surgical Oncology 10/25/18 Brandy Aguirre, PROSTHODONTIST/OWNER [address] [facility] [address] [place] [address] Nurse Practitioner Certified Clinical Nurse Specialist 10/25/18 Jo-Ann Morrow, PhD [address] [facility] [address] [place] [address] Nurse Practitioner Radiation Oncology 10/25/18 Christina Louis, GLOVE PAIRER [address] [facility] [address] [place] [address] Nurse Practitioner Medical Oncology 10/25/18 documented as of this encounter
--- OUTSIDE RECORDS SUMMARY | 2024-04-24 05:52 | XMS_ITS | Encounter Summary ---
Author Organization [facility] [employer] [facility] Address [address] [place] [address] Phone Care Team Providers Care Environmental Compliance Inspector Name Role Phone Erica Rodrigues MD Unavailable Gasper Kaba MD Unavailable Brandy Aguirre DRIVER LICENSE EXAMINER Unavailable [phone] Jo-Ann Morrow PhD Unavailable [phone] Christina Louis CHIEF RADIOLOGIC TECHNOLOGIST Unavailable [phone] Sylvia Dawson Primary Care Provider [phone] Encounter Details Date Type Department Care Team (Late st Contact Info) Description 02/04/2022 Telephone [facility] Ophthalmology [address] [facility] [address]th [place] [address] Celeste Gibbons, LEONELA Social History [...] on file Legal Sex Female 3:42 AM TELETYPESETTER Gender Identity Not on file Sexual Orientation Not on file 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 Not on file Not on file Not on file documented as of this encounter Miscellaneous Notes * Telephone Encounter - Celeste Gibbons COA - 02/04/2022 11:03 AM CDT error documented in this encounter Plan of Treatment Not on file documented as of this encounter Visit Diagnoses Not on filedocumented in this encounter Care Teams Environmental Compliance Inspector Relationship Specialty Start Date End Date Sylvia Dawson PA [address] [address] PCP - General Internal Medicine 01/05/20 Erica Rodrigues MD [address] [address] Radiation Oncologist Radiation Oncology 10/25/18 Gasper Kaba MD [address] [facility] [address] [place] [address] Surgeon Surgical Oncology 10/25/18 Brandy Aguirre CNS [address] [facility] [address] [place] [address] Nurse Practitioner Certified Clinical Nurse Specialist 10/25/18 Jo-Ann Morrow, PhD [address] [facility] [address] [place] [address] Nurse Practitioner Radiation Oncology 10/25/18 Christina Louis NP [address] [facility] [address] [place] [address] Nurse Practitioner Medical Oncology 10/25/18 documented as of this encounter
--- OUTSIDE RECORDS SUMMARY | 2024-04-24 05:52 | XMS_ITS | Encounter Summary ---
Author Organization [facility] Address [address] [place] [address] Phone Care Team Providers Care Heater Worker Name Role Phone Erica Rodrigues MD Unavailable Gasper Kaba MD Unavailable [phone] Brandy Aguirre APPOINTMENT MANAGER Unavailable [phone] Jo-Ann Morrow PhD Unavailable [phone] Christina Louis CONVEYOR MONITOR Unavailable [phone] Sylvia Dawson Primary Care Provider [phone] Reason for Referral * MRI/CAT/PET Scan (Routine) - Closed Specialty Diagnoses / Procedures Referred By Contac t Referred To Contact Radiology Diagnoses Cerebral aneurysm, nonruptured Procedures MRA Head W WO Contrast Lizzie Green NP [address] [place] [address] Phone: tel: fax: [address] [address] Referral ID Status Reason Start Date Expiration Date Visits Re quested Visits Authorized [id number] Closed 01/17/2022 02/15/2022 1 1 Encounter Details Date Type Department Care Team (Late st Contact Info) Description 01/14/2022 Orders Only [facility] Neuro[facility] [address] [facility] [address] 6th [place] [address] [place] [id number] Lizzie Green, JENNI [address] [place] [address] Cerebral aneurysm, nonruptured (Primary Dx) Social History [...] on file Legal Sex Female 3:42 AM UNIX ARCHITECT Gender Identity Not on file Sexual Orientation Not on file 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 TECHNIQUE: Multiplanar multi-weighted MRI of the brain and brainstem was performed without and with intravenous contrast using the general brain protocol. Magnetic resonance angiography of the ffhurp-kb-Gpunci was performed using separate data set acquisitions including a non-contrast kpzi-rw-jibjxm technique and a post-contrast technique to produce [...] are no areas of atherosclerotic narrowing. The tyrxie-qo-Wisjke is complete. There is a bilobed superiorly [...] contrast Magnetic resonance angiography (MRA) of the qopwvp-qc-Nsyuig without and with contrast HISTORY: Patient is a 61-year-old female who presents for follow-up of anterior communicating artery aneurysm. TECHNIQUE: Multiplanar multi-weighted MRI of the brain and brainstem was performed without and with intravenous contrast using the general brain protocol. Magnetic resonance angiography of the yhgixx-ih-Psyaho was performed using separate data set acquisitions including a non-contrast eecy-vx-ntvcvv technique and a post-contrast technique to produce [...] are no areas of atherosclerotic narrowing. The veoenr-ga-Pdqavu is complete. There is a bilobed superiorly [...] nonruptured documented in this encounter Care Teams Heater Worker Relationship Specialty Start Date End Date Sylvia Dawson PA [address] [facility] [address] [place] [address] PCP - General Internal Medicine 01/05/20 Erica Rodrigues MD [address] [facility] [address] [place] [address] Radiation Oncologist Radiation Oncology 10/25/18 Gasper Kaba MD [address] [place] [address] Surgeon Surgical Oncology 10/25/18 Brandy Aguirre, APPOINTMENT MANAGER [address] [facility] [address] [place] [address] Nurse Practitioner Certified Clinical Nurse Specialist 10/25/18 Jo-Ann Morrow, PhD [address] [facility] [address] [place] [address] Nurse Practitioner Radiation Oncology 10/25/18 Christina Louis NP [address] [facility] [address] [place] [address] Nurse Practitioner Medical Oncology 10/25/18 documented as of this encounter
--- OUTSIDE RECORDS SUMMARY | 2024-04-24 05:52 | XMS_ITS | Encounter Summary ---
Author Organization [facility] Address [address] [place] [address] Care Team Providers Care Raw Juice Weigher Name Role Phone Erica Rodrigues MD Unavailable Gasper Kaba MD Unavailable [phone] Brandy Aguirre Unavailable [phone] Jo-Ann Morrow PhD Unavailable [phone] Christina Louis NP Unavailable [phone] Sylvia Dawson Primary Care Provider [phone] Reason for Referral * MRI/CAT/PET Scan (Routine) - Closed Specialty Diagnoses / Procedures Referred By Niranjan farrell Referred To Contact Radiology Diagnoses Aneurysm ([facility]/HCC) (HCC) Procedures MRI Brain W WO Contrast Lizzie Green NP [address] [facility] [address] [place] [address] Phone: tel: fax: [facility] [address] [place] [address] Referral ID Status Reason Start Date Expiration Date Visits Re quested Visits Authorized [id number] Closed 01/17/2022 02/15/2022 1 1 Reason for Visit * MRI/CAT/PET Scan (Routine) - Closed Specialty Diagnoses / Procedures Referred By Contac t Referred To Contact Radiology Diagnoses Aneurysm ([facility]/HCC) ([facility]) Procedures MRI Brain W WO Contrast Lizzie Green, JENNI [address] [place] [address] Phone: tel: fax: [facility] [id number]ior [phone] Referral ID Status Reason Start Date Expiration Date Visits Re quested Visits Authorized [id number] Closed 01/17/2022 02/15/2022 1 1 Encounter Details Date Type Department Care Team (Latest Contact Info) Description 02/08/2022 7:11 AM CDT - 02/08/2022 11:59 PM CDT Hospital Encounter [facility] [id number] [id number] Aneurysm ([facility]) ([facility]) Discharge Disposition: Discharge to home or self [...] on file Legal Sex Female 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 Gender Identity Not on file Sexual Orientation Not on file 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 Not on file Not on file Not on file documented as of this encounter Medications at Time of Discharge multivitamin with minerals tabletIndication s:Vitamin Deficiency Prevention Take 1 tablet by mouth every morning vit H-N-jjfenv-zinc- lutein (PreserVision Lutein) 22690-0.8-5 mg capsuleIndicatio ns:Eye support Take 1 tablet [...] Priority Date/Time Associated Diagnosis Comments MRI BRAIN W WO CONTRAST Schedule Routine, Read Routine (OP Routine) 02/08/2022 8:05 AM CDT Aneurysm (CMS/HCC) (HCC) documented in this encounter Results * MRI Brain W WO Contrast (02/08/2022 8:05 AM CDT) Anatomical Region Laterality Modality Head [...] contrast Magnetic resonance angiography (MRA) of the nxejgr-tf-Rmpvwi without and with contrast HISTORY: Patient is a 61-year-old female who presents for follow-up of anterior communicating artery aneurysm. TECHNIQUE: Multiplanar multi-weighted MRI of the brain and brainstem was performed without and with intravenous contrast using the general brain protocol. Magnetic resonance angiography of the hrrleu-ym-Rpijwe was performed using separate data set acquisitions including a non-contrast xxpf-ge-bpftqz technique and a post-contrast technique to produce [...] are no areas of atherosclerotic narrowing. The rjsaho-rk-Offsed is complete. There is a bilobed superiorly [...] contrast Magnetic resonance angiography (MRA) of the yxgyht-km-Hhjfyp without and with contrast HISTORY: Patient is a 61-year-old female who presents for follow-up of anterior communicating artery aneurysm. TECHNIQUE: Multiplanar multi-weighted MRI of the brain and brainstem was performed without and with intravenous contrast using the general brain protocol. Magnetic resonance angiography of the fldvcc-xs-Hntvdt was performed using separate data set acquisitions including a non-contrast zebb-qz-cnzhed technique and a post-contrast technique to produce [...] are no areas of atherosclerotic narrowing. The zvoktk-ab-Chrpry is complete. There is a bilobed superiorly [...] documented in this encounter Visit Diagnoses Diagnosis Aneurysm (CMS/HCC) (HCC) Other aneurysm of unspecified site documented in this encounter Administered Medications Inactive Administered Medications - up to 3 most recent administrations Medication Order MAR Action Action Date Dose Rate Site gadoterate meglumine injection 20 mL 20 mL, intravenous, Once in imaging, contrast, Starting on 02/08/22 at 0740, For 1 dose Contrast Given 02/08/2022 7:41 AM CDT 12 mL sodium chloride 0.9% flush 20 mL 20 mL, intravenous, As needed, line care, Starting on 02/08/22 at 0740 Given 02/08/2022 7:40 AM CDT 20 mL documented in this encounter Care Teams Raw Juice Weigher Relationship Specialty Start Date End Date Sylvia Dawson PA [address] [facility] [address] [address] [place] [address] PCP - General Internal Medicine 01/05/20 Erica Rodrigues MD [address] [place] [address] Radiation Oncologist Radiation Oncology 10/25/18 Gasper Kaba MD [address] [place] [address] Surgeon Surgical Oncology 10/25/18 Brandy Aguirre CNS [address] [place] [address] Nurse Practitioner Certified Clinical Nurse Specialist 10/25/18 Jo-Ann Morrow, PhD [address] [place] [address] Nurse Practitioner Radiation Oncology 10/25/18 Christina Louis, PREASSEMBLER PRINTED CIRCUIT BOARD [address] [place] [address] Nurse Practitioner Medical Oncology 10/25/18 documented as of this encounter
--- OUTSIDE RECORDS SUMMARY | 2024-04-24 05:52 | XMS_ITS | Encounter Summary ---
Author Organization [facility] Address [address] [place] [address] Phone Care Team Providers Care Airline Customer Service Agent Name Role Phone Erica Rodrigues MD Unavailable Gasper Kaba MD Unavailable [phone] Brandy Aguirre SAIL REPAIR PERSON Unavailable [phone] Jo-Ann Morrow PhD Unavailable [phone] Christina Louis HR BUSINESS PARTNER CONSULTANT Unavailable [phone] Sylvia Dawson Primary Care Provider [phone] Encounter Details Date Type Department Care Team (Late st Contact Info) Description 02/10/2022 Telephone [facility] Ophthalmology [address] [facility] 6th [place] [address] Celeste Gibbons, LEONELA Social History [...] on file Legal Sex Female 3:42 AM ORNAMENTER Gender Identity Not on file Sexual Orientation Not on file 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 on file Not on file Not on file documented as of this encounter Miscellaneous Notes * Telephone Encounter - Celeste Gibbons COA - 02/10/2022 10:59 AM CDT Spoke with patient confirmed sx on 02/11 arrival at 12 pm documented in this encounter Plan of Treatment Not on file documented as of this encounter Visit Diagnoses Not on filedocumented in this encounter Care Teams Airline Customer Service Agent Relationship Specialty Start Date End Date Sylvia Dawson PA [facility] [address] PCP - General Internal Medicine 01/05/20 Erica Rodrigues MD [address] [place] [address] Radiation Oncologist Radiation Oncology 10/25/18 Gasper Kaba MD [address] [place] [address] Surgeon Surgical Oncology 10/25/18 Brandy Aguirre CNS [address] [place] [address] Nurse Practitioner Certified Clinical Nurse Specialist 10/25/18 Jo-Ann Morrow, PhD [address] [place] [address] Nurse Practitioner Radiation Oncology 10/25/18 Christina Louis NP [address] [facility] [address] [place] [address] Nurse Practitioner Medical Oncology 10/25/18 documented as of this encounter
--- OUTSIDE RECORDS SUMMARY | 2024-04-24 05:52 | XMS_ITS | Encounter Summary ---
Author Organization [facility] Healthcare Address [address] [place] [address] Care Team Providers Care Slide Fastener Repairer Name Role Phone Erica Rodrigues MD Unavailable Gasper Kaba MD Unavailable Brandy Aguirre RADIOTELEPHONE TECHNICAL OPERATOR Unavailable Jo-Ann Morrow PhD Unavailable [phone] Christina Louis NP Unavailable [phone] Sylvia Dawson Primary Care Provider [phone] Reason for Visit * Auth/Cert Specialty Diagnoses / Procedures Referred By Contac t Referred To Contact Diagnoses Aneurysm (CMS/HCC) (HCC) Procedures adm Referral ID Status Reason Start Date Expiration Date Visits Re quested Visits Authorized [id number] 1 1 Encounter Details Date Type Department Care Team (Late st Contact Info) Description 04/09/2022 8:26 AM MINE GEOLOGIST Anesthesia Event [facility] Neuro Interventional Radiology [address] [place] [address] Luis Armando Ohara MD [address] [facility] [address] [place] [address] Kurt Medina NP [address] [facility] [address] [phone] [place] [address] Anesthesia Record Procedure Summary Procedure Name Responsible Anesthesiologist Anesthesia Start Time Anesthesia Stop Time PLACEMENT CAROTID STENT WO PROTECTION RIGHT Luis Armando Ohara MD 04/09/22 0826 04/09/22 1134 Events Date Time Event Comment 04/09/2022 0808 0826 An Start 0831 An Start Data 0843 An Induction The patient was reevaluated immediately before moderate or deep sedation use and before anesthesia induction. 0847 An Intubation 0852 Anesthesia Ready 1118 An Extubation 1121 an stop data 1134 Handoff to RN I completed my handoff [...] disposition at the time of handoff: PACU 1134 An Stop Meds Name Total lidocaine (cardiac) syringe 2 % 40 mg propofol 100 mg fentaNYL 100 mcg rocuronium 30 mg phenylephrine 100 mcg/mL 500 mcg ePHEDrine 25 mg ondansetron PF (ZOFRAN) 2 mg/mL injectio n 4 mg glycopyrrolate 0.2 mg phenylephrine infusion (100 mcg/mL) 2.51 mg heparin 1,000 unit/ml 5,000 Units sugammadex 120 mg Lactated Ringer's (LR) infusion 900 mL LR 1,000 mL * Agents Name O2% N2O O2 N2O Air Sevoflurane Inspired Sevoflurane * Blood No blood administrations on file. Lines, Drains, and Airways Type Details Placement Removal RETIRED Surgical Site 11/11/18; 0945; Vagina; 04/10/22; 1005 11/11/18 0945 by Meme Grant RN 04/10/22 1005 by Kera Carrasco RN RETIRED Surgical Site 02/11/22; 0952; Le ft; Eye; 04/10/22; 1005 02/11/22 0952 by Cassei Snow RN 04/10/22 1005 by Kera Carrasco RN Peripheral IV Placement Date: 04/09/22; Placement Time: 725; Catheter Size: 18 G; Orientation: Left; Location: Wrist; Removal Date: 04/10/22; Removal Time: 100404/09/22725 by Mei Wright RN 04/10/22 1005 by Kera Carrasco RN ETT Placement Date: 04/09/22; Placement Time: 0854 (created via procedure documentation); Mask Ventilation: 1; Technique: Direct laryngoscopy; Type: ETT - single; Single Lumen Tube Size: 7 mm; Cuffed: Yes; Laryngoscope: Narinder; Blade Size: 3; Location: Oral; Grade View: Grade IIa; Insertion Attempts: 1; Placement Verification: Auscultation, Capnometry; Removal Date: 04/09/22; Removal Time: 1118 04/09/22 0854 by Gonzalez Lozano CRNA 04/09/22 1118 by Gonzalez Lozano CRNA Urethral Catheter Placement Date: 04/09/22; Placement Time: 0859; Inserted by: marco. 12 fr passed easily; Type: Non-latex; Balloon Size: 10 mL; Urine Returned: Yes (clear yellow); Removal Date: 04/10/22; Removal Time: 0515; Removal Reason: Per order 04/09/22 0859 by Brandy Abrams RN 04/10/22 0515 by Kieran Allan RN Peripheral IV Placement Date: 04/09/22; Placement Time: 09 (created via procedure documentation); Catheter Size: 18 G; Orientation: Left; Location: Forearm; Site Prep: Chlorhexidine; Insertion Attempts: 1; Removal Date: 04/10/22; Removal Time: 1005 04/09/22 0907 by Gonzalez Lozano CRNA 04/10/22 1005 by Kera Carrasco RN documented in this encounter Social History [...] on file Legal Sex Female 3:42 AM MINE GEOLOGIST Gender Identity Not on file Sexual Orientation Not on file 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 Neuro Interventional Radiology Anesthesia Start: 825 Anesthesia Stop: 1133 Procedure: PLACEMENT CAROTID STENT WO PROTECTION RIGHT Diagnosis: Cerebral aneurysm, nonruptured Aneurysm (CMS/HCC) ([facility]) Scheduled Providers: Abdiaziz Moss MD; Luis Armando Ohara MD; Gonzalez Lozano CRNA Responsible Provider: Luis Armando Ohara MD Anesthesia Type: general ASA Status: 2 Anesthesia Type: general Last vitals BP 117/77 Pulse 78 Temp 36.7 ??C (98.1 ??F) (Temporal) Resp 11 SpO2 96% Anesthesia Post Evaluation Patient location during evaluation: PACU Patient participation: complete - patient participated Level of consciousness: fully awake Pain management: satisfactory to patient Airway patency: adequate Evidence of recall: no Cardiovascular status: hemodynamically stable Respiratory status: acceptable and room air Hydration status: acceptable Pt is: normothermic Nausea/Vomiting status: none Comments: The patient is ready to be discharged from PACU. BP 117/77 Pulse 78 Temp 36.7 ??C (98.1 ??F) (Temporal) Resp 11 LMP (LMP Unknown) SpO2 96% No notable events documented. GEOLOGIST * Anesthesia Procedure Notes - Gonzalez Lozano CRNA - 04/09/2022 9:06 AM CSTAssociated Order(s): Peripheral IV Catheter Peripheral IV Catheter Patient location: OR Staff: Supervising provider: Luis Armando Ohara MD Placed by: PSYCHOLOGIST: Gonzalez Lozano CRNA Preprocedure prep: Prep solution: chlorhexadine PPE: gloves and provider hat/mask PIV line: Laterality: left Site: forearm Catheter size: 18 g Technique: direct visualization Procedure details: good blood return and occlusive dressing applied Number of attempts: 1 Assessment: Events: patient tolerated procedure well with no complications GEOLOGIST * Anesthesia Procedure Notes - Gonzalez Lozano CRNA - 04/09/2022 8:52 AM CSTAssociated Order(s): Airway Airway Patient location: OR Urgency: elective Indications for airway management: anesthesia Difficult airway: no Staff: Supervising provider: Luis Armando Ohara MD Placed by: PSYCHOLOGIST: Gonzalez Lozano CRNA Emergent airway documentation: Risks and benefits discussed: yes Consent obtained: yes Consent given by: patient Airway prep: Preoxygenated: yes Patient position: sniffing Mask difficulty assessment: 1 - vent by mask Sedation level during airway: GA Final airway details: Final airway type: endotracheal airway Tube type: ETT ETT size: 7.0 mm Cuffed: yes Technique used for successful ETT placement: direct laryngoscopy Devices/Methods used in placement: stylet Insertion site: oral Blade type: Narinder Blade size: 3 Cormack-Lehane (direct): grade IIa - partial view of glottis Cuff inflated with: air ETT to teeth: 21 cm Placement verified by: auscultation and CO2 detection Airway secured with: silk tape Number of attempts: 1 GEOLOGIST * Anesthesia Preprocedure Evaluation - Luis Armando Ohara MD - 04/08/2022 10:34 AM CST Images from the original note were not included. [facility] Preoperative Assessment and Planning Preoperative Evaluation Record Evaluation type/location: [facility] Planned procedure site: Other Date: 04/08/22 Anesthesia Evaluation Yesika Denney is a 61 y.o. 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 Neurological Pertinent negatives: seizures; neuromuscular disease; CVA/stroke; TIA; CEA; ICA stenosis; dementia/mild cognitive impairment and carotid artery stent Comments: [facility] neuro[facility] 03/2022: Yesika Denney is a 61-year-old woman with a [...] with TIA. We will proceed with a newcerebral angiogram at the time of her procedure with possible right carotid stent and then proceeding to treatment of the anterior communicating artery aneurysm pending the findings of the new angiogram under anesthesia. Cardiovascular + Hypertension + Hyperlipidemia + Systolic or diastolic dysfunction w/o CHF Diastolic dysfunction w/o CHF. Diastolic function: stage I - impaired relaxation LVEF: 60-70%. + Other arrhythmia (Ectopic atrial tachycardia) - sinus tachycardia. Pertinent negatives: CAD ; UT ; CABG ; valvular heart disease; valve replacement; atrial fibrillation; pacemaker/ICD; PVD; DVT/PE; negative for CHF; drug-eluting stent(s); bare metal stent(s) and coronary angioplasty Comments: [facility] cards [facility] 06/2021 Respiratory Pertinent negatives: COPD; asthma; sleep apnea (JOSE); pulmonary hypertension; no O2 use outside thehospital and non-smoker Hepatic / Heme Pertinent negatives: liver disease; history of anemia; history of thrombocytopenia and history of Tamiko positive Gastrointestinal + GERD - PRN medication use only. Symptoms weekly but < daily. Pertinent negatives: hiatal hernia Renal / Pertinent negatives: renal [...] obesity (BMI >30) and transplanted organ Comments: [facility] rheumatology [facility] 03/2022 Functional Capacity Functional capacity: 4-6 METs Comments: Able to climb 1 flight of stairs or ambulate 2 blocks without dyspnea or chest pain Review of Systems + SOB (Mild ORO with brisk activity since 04/2020 COVID infection, chronic and unchanged since this time) + numbness/tingling (intermitent parasthesia bilat hands 2/2 raynauds, chronic) + vision loss (readers) Pertinent negatives: productive cough; wheezing; recent cold/flu; fever; chest pain; palpitations; orthopnea; pedal edema; PND; Sickle Cell disease/trait; previous transfusion; transfusion reaction; melena/hematochezia; easy bruising; bleeding problems; syncope; dizziness; muscle weakness; chronic pain; hard of hearing; heartburn; nausea; dysphagia; diarrhea; dentures/partials; chipped/loose teeth; abdominal pain; diaphoresis and no unexpected weight change Comments: Denies urinary symptoms PAT Summary and Plans Cardiac risk classification of planned procedure: intermediate cardiac risk. Preoperative assessment status: complete. Initial preoperative evaluation discussed with: Jose Ruiz MD Additional comments: Yesika Denney is a 61 y.o. female who is being evaluated prior to undergoing an intermediate cardiac risk surgery. Revised Cardiac Risk Index factors are (none) for a total RCRI of 0 out of 6. Functional capacity is 4-6 METs. Obstructive sleep apnea (JOSE) screening status is STOP-Bang=4 suggesting moderate risk for JOES, bicarbonate value pending Blood bank needs for day of procedure: No type and screen needed Pending labs/tests include: surgeon labs: CBC BMP PT/INR CPAP aPTT -->The patient takes aspirin and plavix, to be managed by proceduralist per protocol. The patient states she has already received instructions to continue these medications from proceduralist. -->~03/25 the patient had episode of word finding difficulty, saw [facility] after on03/28, denies re-occurrence of symptoms since. No headache, dizziness, speech or balance issues. Preoperative evaluation performed by Kurt Medina NP on 04/08/22 at 10:49 AM. . Follow up note Labs reviewed and are without significant findings. Surgeon's office reviews laboratory results independently. CPAP process complete. Follow-up completed by: Kurt Medina NP on 04/08/22 at 4:17 PM Patient Active Problem List Diagnosis ??? [...] Recurrent cold sores ??? Hyperglycemia ??? Snoring Past Medical History: Diagnosis Date ??? Autoimmune [...] LUMPECTOMY Right 2014 Invasive ductal carcinoma ??? COLONOSCOPY 03/06/2020 ??? 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 No history fertility medications. She used oral contraceptives in the past. One does progesterone 08/2014. She experienced menopause approximately age 53. Allergies Allergen Reactions ??? Adhesive Hives Paper tape OK ??? Adhesive Tape-Silicones Rash ??? Cyclizine Other (See comments) and Hallucinations Marezine about 1981 Reaction: Urinary retention Med List Status: Nurse Complete Set By: Beth Abraham RN at 04/08/2022 9:30 AM Taking? Last Dose Start Date End Date Provider aspirin 325 mg enteric coated tablet 04/08/2022 03/17/22 03/17/23 Lizzie Green NP Take 1 tablet (325 mg total) by mouth daily Patient taking differently: Take 325 mg by mouth every morning atenoloL (TENORMIN) 25 mg tablet 04/08/2022 03/10/22 -- Harpal De León MD TAKE 1 TABLET(25 MG) BY MOUTH DAILY Patient taking differently: Take 25 mg by mouth every morning wekgxqdxgl-pxamyosugzspn-tlknpzjx-codeine (FIORICET WITH CODEINE) 41-785-67-30 mg per capsule 04/06/2022 02/28/22 -- Sylvia Dawson PA Take 1 capsule by mouth every 4 (four) hours as needed for headaches Patient taking differently: Take 1 capsule by mouth every 4 (four) hours as needed for headaches calcium carbonate/vitamin D3 (CALTRATE 600 PLUS D ORAL) Past Month -- -- Ronda Ruano MD clopidogreL (PLAVIX) 75 mg tablet 04/08/2022 03/17/22 03/17/23 Lizzie Green, TELEPHONE CLAIMS REPRESENTATIVE Take 1 tablet (75 mg total) by mouth daily Patient taking differently: Take 75 mg by mouth every morning coenzyme Q10 200 mg capsule Past Month -- -- ProviderRonda MD difluprednate (DUREZOL) 0.05 % drops 04/08/2022 03/27/22 05/08/22 Jessy Adame MD Administer 1 drop into the left eye 3 (three) times a day for 14 days, THEN 1 drop 2 (two) times a day for 14 days, THEN 1 drop daily for 14 days. dorzolamide (TRUSOPT) 2 % ophthalmic solution 04/08/2022 03/12/22 -- Jessy Adame MD Administer 1 drop into the left eye 3 (three) times a day FLUoxetine (PROzac) 20 mg capsule 04/08/2022 02/27/22 -- Sylvia Dawson PA Take 1 capsule (20 mg total) by mouth 2 (two) times a day Patient taking differently: Take 20 mg by mouth every morning folic acid (FOLVITE) 1 mg tablet 04/08/2022 09/16/21 -- Patricia Martinez MD Take 2 tablets (2,000 mcg total) by mouth daily Patient taking differently: Take 2,000 mcg by mouth every morning hydrOXYchloroQUINE (PLAQUENIL) 200 mg tablet 04/08/2022 07/10/21 -- Patricia Martinez MD Take 1 tablet (200 mg total) by mouth daily Patient taking differently: Take 200 mg by mouth every morning lisinopriL (PRINIVIL,ZESTRIL) 20 mg tablet 04/08/2022 02/27/22 -- Sylvia Dawson PA Take 1 tablet (20 mg total) by mouth daily Patient taking differently: Take 20 mg by mouth every morning methotrexate 2.5 mg tablet 04/03/2022 03/05/22 -- Patricia Martinez MD TAKE 8 TABLETS BY MOUTH ONCE A WEEK DIRECTED Patient taking differently: Take 8 tablets on multivitamin with minerals tablet Past Month -- -- Ronda Ruano MD sulfaSALAzine EN (AZULFIDINE EN) 500 mg EC tablet 04/08/2022 04/08/22 -- Patricia Martinez MD TAKE 2 TABLETS TWICE A DAY Patient taking differently: 1,000 mg every morning traMADoL (ULTRAM) 50 mg tablet Past Month 03/17/22 -- Ronda Ruano MD turmeric root extract 500 mg capsule Past Month -- -- Ronda Ruano MD valACYclovir (Valtrex) 500 mg tablet 04/08/2022 02/27/22 -- Sylvia Dawson PA Take 1 tablet (500 mg total) by mouth daily Patient taking differently: Take 500 mg by mouth every morning vit I-A-kjssdk-zinc-lutein (PreserVision Lutein) 226-90-0.8-5 mg capsule Past Month -- -- Ronda Ruano MD zinc 50 mg tablet Past Month -- -- Ronda Ruano MD -- Patient taking differently: Current Outpatient Medications: ??? aspirin 325 mg enteric coated tablet ??? atenoloL (TENORMIN) 25 mg tablet ??? calcium carbonate/vitamin D3 (CALTRATE 600 PLUS D ORAL) ??? clopidogreL (PLAVIX) 75 mg tablet ??? coenzyme Q10 200 mg capsule ??? difluprednate (DUREZOL) 0.05 % drops ??? dorzolamide (TRUSOPT) 2 % ophthalmic solution ??? FLUoxetine (PROzac) 20 mg capsule ??? folic acid (FOLVITE) 1 mg tablet ??? hydrOXYchloroQUINE (PLAQUENIL) 200 mg tablet ??? lisinopriL (PRINIVIL,ZESTRIL) 20 mg tablet ??? multivitamin with minerals tablet ??? sulfaSALAzine EN (AZULFIDINE EN) 500 mg EC tablet ??? traMADoL (ULTRAM) 50 mg tablet ??? turmeric root extract 500 mg capsule ??? valACYclovir (Valtrex) 500 mg tablet ??? vit L-R-eblsax-zinc-lutein (PreserVision Lutein) 226-90-0.8-5 mg capsule ??? zinc 50 mg tablet ??? hcvwpjawgs-ahswduhhvfrni-sduitjsd-codeine (FIORICET WITH CODEINE) 70-195-78-30 mg per capsule ??? methotrexate 2.5 mg tablet Social History Tobacco Use Smoking [...] failure Mother ??? Aortic aneurysm Mother ??? Depression Sister ??? Hypertension Sister ??? Arthritis Sister ??? Osteoporosis Sister ??? No Known Problems Sister ??? Hypertension Sister ??? Memory loss Maternal Grandmother ??? Depression Paternal Grandmother ??? Stroke Paternal Grandmother ??? Alzheimer's disease Father ??? Depression Father ??? Hypertension Father ??? Memory loss Father ??? Lung cancer Father ??? Peripheral vascular disease Father ??? Cancer Father ??? Dementia Father ??? Depression Brother ??? Hypertension Brother ??? Cancer Maternal Grandfather ??? Anesthesia problems Neg Hx ??? Breast cancer Neg Hx PAT Physical Exam Airway Exam: Mallampati: I Cervical ROM: FROM TM distance: normal Upper lip bite test class: 2 Cardiovascular Exam: Rate: regular Rhythm: regular Negative for Murmur No extra heart sounds appreciated Negative for peripheral edema JVD negative Negative for weak pulses Pulmonary Exam: LCTA, bilat EENT Exam: trachea midline Dental Exam: Appears intact Skin Exam: Skin is dry and warm. Capillary refill is < 3 seconds. Abdominal exam: Abdomen is soft. Current state: Patient's current state is interactive and cooperative. Relevant diagnostics: ECG(s): 03/28/20 Echocardiogram(s): TTE Conclusions: [...] maintain saturations greater than 88% Vascular studies: N/A Other: 03/20/22 CTA head/neck IMPRESSION: 1. No acute [...] The full scanned/data report is available in [facility]. labeled MONITOR STRIPS PDF . Vitals: 04/08/22 0930 BP: 115/77 Pulse: 67 Resp: 16 SpO2: 99% PT: No results found for requested labs within last 720 hours. INR: No results found for requested labs within last 720 hours. APTT: No results found for requested labs within last 720 hours. Hgb A1C: 03/25/2022: 5.0 % CBC RBC: 03/25/2022: 3.84 x10E6/uL RDW: 03/25/2022: 11.8 % MCHC: 03/25/2022: 32.5 g/dL MCH: 03/25/2022: 32.8 pg MCV: 03/25/2022: 101 fL (H) Hct: 03/25/2022: 38.8 % Hgb: 03/25/2022: 12.6 g/dL WBC: 03/25/2022: 4.4 x10E3/uL MPV: No results found for requested labs within last 720 hours. Platelets: 03/25/2022: 233 x10E3/uL RDW CV: No results found for requested labs within last 720 hours. RDW Sd: No results found for requested labs within last 720 hours. BMP Glucose: 03/25/2022: 89 mg/dL Calcium: 03/25/2022: 9.0 mg/dL Sodium: 03/25/2022: 139 mmol/L Potassium: No results found for requested labs within last 720 hours. CO2: 03/25/2022: 26 mmol/L Chloride: 03/25/2022: 101 mmol/L BUN: 03/25/2022: 10 mg/dL Creatinine: 03/25/2022: 0.76 mg/dL STOP-Bang Total Score: 3 Chelsea index score: 100 DOS Physical Exam Medical history, medications, and allergies reviewed. Attestation: This PAT evaluation 04/09/2022. Airway Exam: Mallampati: I Cervical ROM: FROM TM distance: >4 Jaw ROM: full Cardiovascular Exam: Rate: regular Rhythm: regular Pulmonary Exam: LCTA, bilat EENT Exam: trachea midline Dental Exam: Appears intact Skin Exam: Skin is warm. Current state: Patient's current state is cooperative and interactive. Anesthesia Plan ASA 2 My patient is approved for the Anesthesia Controlled Medication protocol when under care of a PSYCHOLOGIST Planned anesthesia: General Team communication plan: oral ET tube Induction: Induction: intravenous. Postoperative Plan: Postoperative administration opioids intended. No postoperative mechanical ventilation intended. Planned trial extubation. Informed Consent: Discussed plan with PSYCHOLOGIST. Anesthesia plan and risks discussed with patient. Plan and Consent Comments: The patient is informed for the possible risks (from harm to teeth to respiratory, neurologic and cardiac problems, even ) of used anesthesia/analgesia techniques. BP 129/91 Pulse 68 Temp 36.9 ??C (98.4 ??F) Resp 16 LMP (LMP Unknown) SpO2 95% Consent and Attending signature: I and/or my designee have discussed the anesthesia plan, benefits, possible alternatives, parental presence at time of induction (if indicated), and clinically relevant risks that may include dental injury, unintentional awareness, and/or other complications. The patient and/or parent/legal guardian understand, and agree to proceed. All questions answered. GEOLOGIST GEOLOGIST GEOLOGIST documented in this encounter Plan of Treatment Not on file documented as of this encounter Procedures Procedure Name Priority Date/Time Associated Diagnosis Comments VT AN PROCEDURE PLACEHOLDER Routine 04/09/2022 9:06 AM MINE GEOLOGIST VT AN PROCEDURE PLACEHOLDER Routine 04/09/2022 8:52 AM MINE GEOLOGIST VT AN ELECTIVE ENDOTRACHEAL AIRWAY Routine 04/09/2022 8:52 AM MINE GEOLOGIST documented in this encounter Results * VT AN PROCEDURE PLACEHOLDER (04/09/2022 9:06 AM MINE GEOLOGIST) Narrative Gonzalez Lozano CRNA - 04/09/2022 9:06 AM MINE GEOLOGIST Gonzalez Lozano CRNA ? 04/09/2022 ??9:07 AM Peripheral IV Catheter Patient location: OR Staff: Supervising provider: Luis Armando Ohara MD Placed by: PSYCHOLOGIST: Gonzalez Lozano CRNA Preprocedure prep: Prep solution: chlorhexadine PPE: gloves and provider hat/mask PIV line: Laterality: left Site: forearm Catheter size: 18 g Technique: direct visualization Procedure details: good blood return and occlusive dressing applied Number of attempts: 1 Assessment: Events: patient tolerated procedure well with no complications Luis Armando Ohara MD ANESTHESIA ORDERABLES Final R esult * VT AN ELECTIVE ENDOTRACHEAL AIRWAY, VT AN PROCEDURE PLACEHOLDER (04/09/2022 8:52 AM MINE GEOLOGIST) Narrative Gonzalez Lozano CRNA - 04/09/2022 8:52 AM MINE GEOLOGIST Gonzalez Lozano CRNA ? 04/09/2022 ??8:54 AM Airway Patient location: OR Urgency: elective Indications for airway management: anesthesia Difficult airway: no Staff: Supervising provider: Luis Armando Ohara MD Placed by: PSYCHOLOGIST: Gonzalez Lozano CRNA Emergent airway documentation: Risks and benefits discussed: yes Consent obtained: yes Consent given by: patient Airway prep: Preoxygenated: yes Patient position: sniffing Mask difficulty assessment: 1 - vent by mask Sedation level during airway: GA Final airway details: Final airway type: endotracheal airway Tube type: ETT ETT size: 7.0 mm Cuffed: yes Technique used for successful ETT placement: direct laryngoscopy Devices/Methods used in placement: stylet Insertion site: oral Blade type: Narinder Blade size: 3 Cormack-Lehane (direct): grade IIa - partial view of glottis Cuff inflated with: air ETT to teeth: 21 cm Placement verified by: auscultation and CO2 detection Airway secured with: silk tape Number of attempts: 1 us Luis Armando Ohara MD ANESTHESIA ORDERABLES Final R esult documented in this encounter Visit Diagnoses Not on filedocumented in this encounter Administered Medications Inactive Administered Medications - up to 3 most recent administrations Medication Order MAR Action Action Date Dose Rate Site ePHEDrine injection intravenous, Administer over 5 Minutes, As needed, Starting on Thu04/09/22 at 0852, Anesthesia Intra-op Given 04/09/2022 8:54 AM MINE GEOLOGIST 10 mg Given 04/09/2022 8:52 AM MINE GEOLOGIST 15 mg fentaNYL (SUBLIMAZE) preservative free injection intravenous, As needed, Starting on Thu04/09/22 at 0843, Anesthesia Intra-op Given 04/09/2022 8:43 AM MINE GEOLOGIST 100 mcg glycopyrrolate (ROBINUL) injection intravenous, Administer over 1 Minutes, As needed, Starting on Thu04/09/22 at 0850, Anesthesia Intra-op Given 04/09/2022 8:50 AM MINE GEOLOGIST 0.2 mg heparin 1,000 unit/mL injection intravenous, As needed, Starting on Thu04/09/22 at 0940, Anesthesia Intra-op Given 04/09/2022 9:40 AM MINE GEOLOGIST 5,000 Units Lactated Ringer's (LR) infusion 30 mL/hr, intravenous, Continuous, Starting on Thu04/09/22 at 0730, Pre-Op Restarted 04/09/2022 10:55 AM MINE GEOLOGIST Rate/Dose Verify 04/09/2022 8:26 AM MINE GEOLOGIST 30 mL/h r New Bag 04/09/2022 7:28 AM MINE GEOLOGIST 30 mL/hr 30 mL/hr Lactated Ringer's (LR) infusion intravenous, Continuous PRN, Starting on Thu04/09/22 at 0852, Anesthesia Intra-op New Bag 04/09/2022 8:52 AM MINE GEOLOGIST lidocaine (cardiac) (XYLOCAINE) preservative free injection intravenous, As needed, Starting on Thu04/09/22 at 0843, Anesthesia Intra-op, Indications: Ventricular ArrhythmiasIndications:Ventricular Arrhythmias Given 04/09/2022 8:43 AM MINE GEOLOGIST 40 mg ondansetron (ZOFRAN) injection intravenous, Administer over 2 Minutes, As needed, Starting on Thu04/09/22 at 1110, Anesthesia Intra-op Given 04/09/2022 11:10 AM MINE GEOLOGIST 4 mg phenylephrine (JUANIS-SYNEPHRINE) 1 mg/10 mL (100 mcg/mL) in sodium chloride 0.9% (premix) intravenous, As needed, Starting on Thu04/09/22 at 0850, Anesthesia Intra-op Given 04/09/2022 9:32 AM MINE GEOLOGIST 100 mc g Given 04/09/2022 9:19 AM MINE GEOLOGIST 100 mcg Given 04/09/2022 9:10 AM MINE GEOLOGIST 100 mcg phenylephrine (JUANIS-SYNEPHRINE) 5 mg/50 mL (100 mcg/mL) in sodium chloride 0.9% (premix) intravenous, Continuous PRN, Starting on Thu04/09/22 at 0932, Anesthesia Intra-op New Bag 04/09/2022 9:32 AM MINE GEOLOGIST 0.4 mcg/kg/min 15.36 mL/hr propofoL (DIPRIVAN) 10 mg/mL IV intravenous, As needed, Starting on Thu04/09/22 at 0843, Anesthesia Intra-op Given 04/09/2022 8:43 AM MINE GEOLOGIST 100 mg rocuronium (ZEMURON) injection intravenous, As needed, Starting on Thu04/09/22 at 0843, Anesthesia Intra-op Given 04/09/2022 8:43 AM MINE GEOLOGIST 30 mg sugammadex (BRIDION) 100 mg/mL intravenous solution intravenous, As needed, Starting on Thu04/09/22 at 1110, Anesthesia Intra-op Given 04/09/2022 11:10 AM MINE GEOLOGIST 120 mg documented in this encounter Care Teams Slide Fastener Repairer Relationship Specialty Start Date End Date Sylvia Dawson PA [address] [facility] [address] [place] [id number] PCP - General Internal Medicine 01/05/20 Erica Rodrigues MD [address] [facility] [address] [place] [address] Radiation Oncologist Radiation Oncology 10/25/18 Gasper Kaba MD [address] [facility] [address] [place] [address] Surgeon Surgical Oncology 10/25/18 Brandy Aguirre, RADIOTELEPHONE TECHNICAL OPERATOR [address] [facility] [address] [place] [address] Nurse Practitioner Certified Clinical Nurse Specialist 10/25/18 Jo-Ann Morrow, PhD [address] [facility] [address] [place] [address] Nurse Practitioner Radiation Oncology 10/25/18 Christina Louis TELEPHONE CLAIMS REPRESENTATIVE [address] [facility] [address] [place] [address] Nurse Practitioner Medical Oncology 10/25/18 documented as of this encounter
--- OUTSIDE RECORDS SUMMARY | 2024-04-24 05:52 | XMS_ITS | Encounter Summary ---
Author Organization [facility] [employer] [facility] Address [address] [place] [address] Phone Care Team Providers Care Instrument Worker Name Role Phone Erica Rodrigues MD Unavailable Gasper Kaba MD Unavailable [phone] Brandy Aguirre INSTRUMENT TECHNICIAN APPRENTICE Unavailable [phone] Jo-Ann oMrrow PhD Unavailable [phone] Christina Louis ELECTRICIAN HELPER Unavailable [phone] Sylvia Dawson Primary Care Provider [phone] Reason for Referral * Diagnostic Imaging (Routine) - Closed Specialty Diagnoses / Procedures Referred By Contac t Referred To Contact Diagnoses Cystoid macular edema of both eyes Procedures OCT, Retina - [place] [address] [place] [address] [address] [place] [address] Phone: tel: fax: [facility] (All Locations) Referral ID Status Reason Start Date Expiration Date Visits Re quested Visits Authorized [id number] Closed 02/03/2022 03/05/2023 1 1 Reason for Visit * Reason Comments CME OU Encounter Details Date Type Department Care Team (Late st Contact Info) Description 02/03/2022 12:50 PM CDT Office Visit [facility] Ophthalmology [address] [facility] [address] [place] [address] Jessy Adame MD [address] [facility] [address] [place], [place] [id number] Cystoid macular edema of both eyes (Primary [...] on file Legal Sex Female 3:42 AM AQUATICS LIFEGUARD Gender Identity Not on file Sexual Orientation Not on file 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 H/o breast cancer, required Arimidex, RA. She is currently taking methotrexate, plaquenil and sulfasalazine. Patient reports that she has not noticed a decrease in vision since last visit. She states that vision is cloudy and hazy with globs floating around in vision. No new floaters or flashes of light. She reports that OU itch at times, due to seasonal allergies. She will use an artifical tear prn OU. Last edited by Mariajose Patel on 02/03/2022 12:48 PM. Assessment/Plan Diagnoses and all orders for this visit: Cystoid macular edema of both eyes (Primary) Assessment & Plan: History of at a distance a history [...] to participate in the vitreous bank study. Orders: - OCT, Retina - OU - Both Eyes OCT, Retina - OU - Both Eyes Right Eye Quality was good. Scan locations included subfoveal. Progression has been stable. Findings include abnormal foveal contour, lamellar hole. Left Eye Quality was good. Progression has been stable. Findings include normal observations. Notes NO ME OU. The signs and symptoms of retinal detachment, tears, infection, elevated intra- ocular pressure werereviewed with the patient. Patient knows to call should they have any of the symptoms. PLAN FOR NEXT VISIT Follow-up and Dispositions Return for Surgery OS. I have examined the patient, reviewed and edited the chart as needed, and discussed the findings, diagnosis and plan with the resident. I agree with the findings, diagnosis, plan that we have createdand documented. Jessy Adame MD documented in this encounter Miscellaneous Notes * Assessment & Plan Note - Thomas Hinojosa DO - 02/03/2022 1:10 PM CDTAssociated Problem(s): Cystoid macular edema of both eyes History of at a distance a history [...] to participate in the vitreous bank study. documented in this encounter Plan of Treatment Not on file documented as of this encounter Procedures Procedure Name Priority Date/Time Associated Diagnosis Comments OCT, RETINA - OU - BOTH EYES Routine 02/03/2022 1:15 PM CDT Cystoid macular edema of both eyes documented in this encounter Results * OCT, Retina - OU - Both Eyes (02/03/2022 1:15 PM CDT) Anatomical Region Laterality Modality Head Optical Coherenc e Tomography Narrative 02/03/2022 1:15 PM CDT Right Eye Quality was good. Scan locations included subfoveal. Progression has been stable. Findings include abnormal foveal contour, lamellar hole. Left Eye Quality was good. Progression has been stable. Findings include normal observations. Notes NO ME OU. us Jessy Adame MD OPHTH TOMOGRAPHY Final Res ult documented in this encounter Visit Diagnoses Diagnosis Cystoid macular edema of both eyes- Primary Cystoid macular degeneration of retina documented in this encounter Eye Exam Visual Acuity (Snellen - Linear) Right eye Left eye Dist sc 20/20 20/20 Tonometry (Tonopen, 12:55 PM) Right eye Left eye Pressure 11 12 Pupils Dark Light Shape React APD Right eye 5.0 4.0 Round Brisk None Left eye 5.0 4.0 Round Brisk None Visual Grossman (Counting fingers) Right eye Left eye Full Full Extraocular Movement Right eye Left eye Full Full Neuro/Psych Oriented x3: Yes Mood/Affect: Normal Dilation Both eyes: 1.0% Mydriacyl, 2 .5% Phenylephrine @ 12:55 PM External Exam Right eye Left eye External Normal Normal Slit Lamp Exam Right eye Left eye Lids/Lashes Normal Normal Conjunctiva/Sclera White and quiet White and gael et Cornea Clear Clear Anterior Chamber Deep and quiet Deep and quiet Iris Round and reactive Round and erasmo ctive Lens Posterior chamber in traocular lens, 2+ Posterior capsular opacification Posterior chamber intraocular lens, 2+ Posterior capsular opacification Vitreous Normal, No cell Normal, No cell Fundus Exam Right eye Left eye Disc Normal Normal C/D Ratio 0.2 0.1 Macula Reeves ring Reeves ring Vessels Normal Normal Periphery flat, vit syn flat, vit syn Strabismus Exam Method: Cover-uncover Distance: Ortho Near: X' Care Teams Instrument Worker Relationship Specialty Start Date End Date Sylvia Dawson PA [address] [place] [address] PCP - General Internal Medicine 01/05/20 Erica Rodrigues MD [address] [place] [address] Radiation Oncologist Radiation Oncology 10/25/18 Gasper Kaba MD [address] [place] [address] Surgeon Surgical Oncology 10/25/18 Brandy Aguirre, CARINA [address] [place] [address] Nurse Practitioner Certified Clinical Nurse Specialist 10/25/18 Jo-Ann Morrow, PhD [address] [place] [address] Nurse Practitioner Radiation Oncology 10/25/18 Christina Louis ELECTRICIAN HELPER [address] [place] [address] Nurse Practitioner Medical Oncology 10/25/18 documented as of this encounter
--- OUTSIDE RECORDS SUMMARY | 2024-04-24 05:52 | XMS_ITS | Encounter Summary ---
Author Organization [facility] [employer] [facility] Address [address] [place] [address] Phone Care Team Providers Care Drive Away Driver Name Role Phone Erica Rodrigues MD Unavailable Gasper Kaba MD Unavailable [phone] Brandy Aguirre MAIL PROCESSOR Unavailable [phone] Jo-Ann Morrow PhD Unavailable [phone] Christina Louis CREDIT COLLECTIONS MANAGER Unavailable [phone] Sylvia Dawson Primary Care Provider [phone] Reason for Referral * Diagnostic Imaging (Routine) - Closed Specialty Diagnoses / Procedures Referred By Contac t Referred To Contact Diagnoses Cystoid macular edema of both eyes Procedures OCT, Retina - OS - Left Eye Jessy Adame MD [address] [facility] [address] [place] [address] Phone: tel: fax: [facility] (All Locations) Referral ID Status Reason Start Date Expiration Date Visits Re quested Visits Authorized [id number] Closed 02/19/2022 03/21/2023 1 1 Y LEVEL ASSISTANT MANAGER Reason for Visit * Reason Comments Post-op Encounter Details Date Type Department Care Team (Late st Contact Info) Description 02/19/2022 8:20 AM ENTRY LEVEL ASSISTANT MANAGER Office Visit [facility] Ophthalmology [address] [facility] 6th [place] [address] Jessy Adame MD [address] [facility] [address] [place], [place] [id number] Cystoid macular edema of both eyes (Primary [...] on file Legal Sex Female 3:42 AM ENTRY LEVEL ASSISTANT MANAGER Gender Identity Not on file Sexual Orientation Not on file 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 Left Eye. 10 mL 3 02/19/2022 2 tobramycin (TOBREX) 0.3 % ophthalmic solutionIndication s:Cystoid macular edema of both eyes Administer 1 drop into the left eye 4 (four) times a day for 1 day One drop to Left eye 4 times per day 5 mL 2 02/19/2022 2 documented in this encounter Progress Notes * Jessy Adame MD - 02/19/2022 8:20 AM CST ASSESSMENT/ORDERS/PROCEDURES PERFORMED TODAY Chief Complaint Patient presents with Post-op HPI 2 day f/u- h/o PPV/EXCHANGE - AIR/FLUID OS 02/11/2022 Patient states OS doing much better and bubble has resolved. OD stable. Last edited by Renetta Carlson COA on 02/19/2022 8:22 AM. Assessment/Plan Diagnoses and all orders for this visit: Cystoid macular edema of both eyes (Primary) Assessment & Plan: One week status post vitrectomy, capsulectomy to [...] surgery in the left eye, I have askedthat she stay on the topical Pred Forte [...] were reviewed with patient. No strenuous activity. Orders: - OCT, Retina - OS - Left Eye - tobramycin (TOBREX) 0.3 % ophthalmic solution; Administer 1 drop into the left eye 4 (four) timesa day for 1 day One drop to Left eye 4 times per day - prednisoLONE acetate (PRED FORTE) 1 % ophthalmic suspension; Administer 1 drop into the left eye 4 (four) times a day One drop, 4x/day for 1 week,3x/day for 1 week,2x/day for 1 week,1x/day for week,then stop. Left Eye. OCT, Retina - OS - Left Eye Quality was good. Scan locations included subfoveal. Progression has worsened. Findings include intraretinal fluid. The signs and symptoms of retinal detachment, tears, infection, elevated intra- ocular pressure werereviewed with the patient. Patient knows to call should they have any of the symptoms. PLAN FOR NEXT VISIT Follow-up and Dispositions Return in about 1 week (around 02/26/2022) for Dilated exam OU, OCT OS. I have examined the patient, reviewed and edited the chart as needed, and discussed the findings, diagnosis and plan with the resident. I agree with the findings, diagnosis, plan that we have createdand documented. Jessy Adame MD Y LEVEL ASSISTANT MANAGER documented in this encounter Miscellaneous Notes * Assessment & Plan Note - Thomas Hinojosa DO - 02/19/2022 8:49 AM CSTAssociated Problem(s): Cystoid macular edema of both eyes One week status post vitrectomy, capsulectomy to [...] surgery in the left eye, I have askedthat she stay on the topical Pred Forte [...] were reviewed with patient. No strenuous activity. Y LEVEL ASSISTANT MANAGER Y LEVEL ASSISTANT MANAGER Y LEVEL ASSISTANT MANAGER documented in this encounter Plan of Treatment Not on file documented as of this encounter Procedures Procedure Name Priority Date/Time Associated Diagnosis Comments OCT, RETINA - OS - LEFT EYE Routine 02/19/2022 9:05 AM ENTRY LEVEL ASSISTANT MANAGER Cystoid macular edema of both eyes documented in this encounter Results * OCT, Retina - OS - Left Eye (02/19/2022 9:05 AM ENTRY LEVEL ASSISTANT MANAGER) Anatomical Region Laterality Modality Head Optical Coherenc e Tomography Narrative 02/19/2022 9:05 AM ENTRY LEVEL ASSISTANT MANAGER Quality was good. Scan locations included subfoveal. Progression has worsened. Findings include intraretinal fluid. us Jessy Adame MD OPHTH TOMOGRAPHY Final [...] 1 week,1x/day for week,then stop. Left Eye. 02/12/2022 02/19/2022 tobramycin (TOBREX) 0.3 % ophthalmic solution One drop to Left eye 4 times per day 02/12/2022 02/19/2022 documented as of this encounter Eye Exam Visual Acuity (Snellen - Linear) Right eye Left eye Dist sc 20/20 20/50 Dist ph sc NI Tonometry (Tonopen, 8:24 AM) Right eye Left eye Pressure 13 15 Pupils Dark Light Shape React APD Right eye 5 4 Round Brisk None Left eye 5 4.5 Round Minimal None Neuro/Psych Oriented x3: Yes Mood/Affect: Normal Dilation Left eye: 1.0% Mydriacyl @ 8 :26 AM External Exam Right eye Left eye External Normal Slit Lamp Exam Right eye Left eye Lids/Lashes Normal Conjunctiva/Sclera White and gael et Cornea Clear, filament inferiorly Anterior Chamber Deep and quiet Iris Round and reacti ve Lens PCIOL, open caps ule Vitreous avitretic, air r esolved Fundus Exam Right eye Left eye Periphery Attached [address] Away Driver Relationship Specialty Start Date End Date Sylvia Dawson PA [address] [facility] [address] [place] [address] PCP - General Internal Medicine 01/05/20 Erica Rodrigues MD [address] [place] [address] Radiation Oncologist Radiation Oncology 10/25/18 Gasper Kaba MD [address] [place] [address] Surgeon Surgical Oncology 10/25/18 Brandy Aguirre, CARINA [address] [place] [address] Nurse Practitioner Certified Clinical Nurse Specialist 10/25/18 Jo-Ann Morrow, PhD [address] [place] [address] Nurse Practitioner Radiation Oncology 10/25/18 Christina Louis CREDIT COLLECTIONS MANAGER [address] [place] [address] Nurse Practitioner Medical Oncology 10/25/18 documented as of this encounter
--- OUTSIDE RECORDS SUMMARY | 2024-04-24 05:52 | XMS_ITS | Encounter Summary ---
Author Organization [facility] Healthcare Address [address] [place] [address] Care Team Providers Care Promotions Director Name Role Phone Erica Rodrigues MD Unavailable Gasper Kaba MD Unavailable Brandy Aguirre FOOD PROCESSING PLANT MANAGER Unavailable Jo-Ann Morrow PhD Unavailable [phone] Christina Louis PROFESSOR OF COMMUNICATION Unavailable [phone] Sylvia Dawson Primary Care Provider [phone] Reason for Visit * Auth/Cert Specialty Diagnoses / Procedures Referred By Contac t Referred To Contact Diagnoses Aneurysm (CMS/HCC) (HCC) Procedures adm Referral ID Status Reason Start Date Expiration Date Visits Re quested Visits Authorized [id number] 1 1 Encounter Details Date Type Department Care Team (Latest Contact Info) Description 04/09/2022 5:46 PM SUPERINTENDENT NONSELLING - 04/10/2022 11:17 AM SUPERINTENDENT NONSELLING Hospital Encounter [facility] [address] [place] [address] Abdiaziz Moss MD [address] [place] [address] Luis Armando Ohara MD [address] [place] [address] Gonzalez Lozano, ALBINA [address] [place] [address] Cerebral aneurysm, nonruptured Discharge Disposition: Discharge to [...] on file Legal Sex Female 3:42 AM SUPERINTENDENT NONSELLING Gender Identity Not on file Sexual Orientation Not on file 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 Not on file Not on file documented as of this encounter Last Filed Vital Signs Vital Sign Reading Time Taken Comments Blood Pressure 136/80 04/10/2022 10:00 AM SUPERINTENDENT NONSELLING Pulse 72 04/10/2022 10:00 AM SUPERINTENDENT NONSELLING Temperature 36.7 ??C (98.1 ??F) 04/10/2022 10:[address] Respiratory Rate 14 04/10/2022 10:00 AM SUPERINTENDENT NONSELLING Oxygen Saturation 97% 04/10/2022 10:00 AM SUPERINTENDENT NONSELLING Inhaled Oxygen Concentration - - Weight 64 kg (141 lb) 04/09/2022 8:00 PM SUPERINTENDENT NONSELLING Height 160 cm (5' 3 ) 04/09/2022 8:00 PM SUPERINTENDENT NONSELLING Body Mass Index 24.98 04/09/2022 8:00 PM SUPERINTENDENT NONSELLING documented in this encounter Discharge Summaries * Asha Hines NP - 04/10/2022 9:48 AM CST Inpatient Discharge Summary BRIEF OVERVIEW Admitting Provider: Abdiaziz Moss MD Discharge Provider: Abdiaziz Moss MD Primary Care Physician at Discharge: Sylvia Dawson PA [phone] Admission Date: 04/09/2022 Discharge Date: 04/10/2022 Admission Location: [facility] Problems/Diagnoses: Active Problems: No Active Problems: There are no active problems currently on the Problem List. Please update the Problem List and refresh. Resolved Problems: No resolved hospital problems. DETAILS OF HOSPITAL STAY Presenting Problem/History of Present Illness: Per Clinic Note (03/28): Yesika Denney is [...] Tolerating regular diet. 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 Ludwig removed on 04/10, now voiding spontaneously. Therapy recommendations: No PT/OT evaluation Incision: No incision, R groin puncture site c/d/i Brace: None needed Surgical drains: N/A Notable medications: Pain medications: APAP Steroids: none Antibiotics: none Anticoagulation/antiplatelet agents: ASA 325 mg, Plavix 75 mg Anti-epileptic drugs: none Follow-up: Neurosurgery: Tasked for 6 weeks . Other services: Primary Care Physician Lab tests/imaging necessary on follow-up: no additional scans/tests necessary Active Issues Requiring Follow-up: -- Routine follow up Test Results Pending at Discharge: None Operative Procedures Performed: * No procedures listed * Other Procedures: 04/09 Angio for R carotid stent Pertinent Test Results: No results found. Discharge Details Physical Exam at Discharge: Discharge Condition: stable Pulse: 76 Resp: 12 BP: 115/71 Temp: 36.8 ??C (98.2 ??F) Weight: 64 kg (141 lb) Pertinent Exam Findings at Discharge: OE spont, regards, follows commands Oriented x3 PERRL, EOMI, FS, TM BUE and BLE 5/5 No drift R femoral access site c/d/i Discharge Disposition: HOME Code Status at Discharge: FULL Discharge Instructions: SEE AVS Activity Instructions Discharge Activity: Lifting restrictions -Do NOT lift greater than 5-10 pounds for 1 week. Discharge Activity: Walking -You may walk as tolerated. Diet Instructions Adult Discharge Diet Diet Type: Return to previous diet Other Instructions Call provider for: severe uncontrolled pain Call provider for: headache, visual disturbances, weakness and speech changes Discharge Medications: Current Medications TAKE these medications acetaminophen 325 mg tablet Take 2 tablets (650 mg total) by mouth every 6 (six) hours as needed for pain Do not exceed 4000 mg of acetaminophen in a 24 hour period. Commonly known as: TYLENOL aspirin 325 mg enteric coated tablet Take 1 tablet (325 mg total) by mouth daily atenoloL 25 mg tablet TAKE 1 TABLET(25 MG) BY MOUTH DAILY Commonly known as: TENORMIN zdfnenjwao-qqowlzsxtcwjj-pjmqqahu-codeine [id number] mg per capsule Take 1 capsule by mouth every 4 (four) hours as needed for headaches Commonly known as: FIORICET WITH CODEINE CALTRATE 600 PLUS D ORAL Take 1 tablet by mouth every morning For: Prevent osteoporosis clopidogreL 75 mg tablet Take 1 tablet (75 mg total) by mouth daily Commonly known as: PLAVIX coenzyme Q10 200 mg capsule Take 1 capsule (200 mg total) by mouth every morning For: Heart health difluprednate 0.05 % drops Administer 1 drop into the left eye 3 (three) times a day for 14 days, THEN 1 drop 2 (two) times a day for 14 days, THEN 1 drop daily for 14 days. Commonly known as: DUREZOL Start taking on: March 27, 2022 dorzolamide 2 % ophthalmic solution Administer 1 drop into the left eye 3 (three) times a day Commonly known as: TRUSOPT folic acid 1 mg tablet Take 2 tablets (2,000 mcg total) by mouth daily Commonly known as: FOLVITE hydrOXYchloroQUINE 200 mg tablet Take 1 tablet (200 mg total) by mouth daily Commonly known as: PLAQUENIL lisinopriL 20 mg tablet Take 1 tablet (20 mg total) by mouth daily Commonly known as: PRINIVIL,ZESTRIL methotrexate 2.5 mg tablet TAKE 8 TABLETS BY MOUTH ONCE A WEEK DIRECTED multivitamin with minerals tablet Take 1 tablet by mouth every morning For: treatment to prevent vitamin deficiency PreserVision Lutein 226-90-0.8-5 mg capsule Take 1 tablet by mouth every morning For: Eye support Generic drug: vit J-W-cgaplx-zinc-lutein sulfaSALAzine EN 500 mg EC tablet Take 2 tablets (1,000 mg total) by mouth 2 (two) times a day Commonly known as: AZULFIDINE EN traMADoL 50 mg tablet Take 50 mg by mouth every 6 (six) hours as needed Commonly known as: ULTRAM turmeric root extract 500 mg capsule Take 500 mg by mouth every morning For: anti inflammatory valACYclovir 500 mg tablet Take 1 tablet (500 mg total) by mouth daily Commonly known as: Valtrex zinc 50 mg tablet Take 50 mg by mouth every morning For: immune support ASK your doctor about these medications FLUoxetine 20 mg capsule Take 1 capsule (20 mg total) by mouth 2 (two) times a day Commonly known as: PROzac Outpatient Follow-Up: Future Appointments Date Time Provider Department Center 05/06/2022 10:00 AM [facility] [place] 05/15/2022 9:30 AM Jessy Adame MD [facility] 6 OP 06/19/2022 11:15 AM Douglas Acosta MD [facility]M E 350 Specialty 06/24/2022 10:00 AM Harpal De León MD MG CAR MRYVL Specialty 10/02/2022 3:00 PM Patricia Martinez MD [facility] 5C [facility] 03/03/2023 9:30 AM Sylvia Dawson PA [facility] Cosigned by Abdiaziz Moss MD at 04/10/2022 10:00 AM SUPERINTENDENT NONSELLING RINTENDENT NONSELLING RINTENDENT NONSELLING documented in this encounter Discharge Instructions * Discharge Instructions* Asha Hines, JENNI - 04/09/2022 7:32 PM SUPERINTENDENT NONSELLING Discharge Instructions Cerebral Angiogram Your doctor performed an angiogram to evaluate the blood vessels in your head and neck using xrays and dye. This was performed by placing a catheter in the blood vessels in your wrist or groin. You might have also had stents or coils placed in the blood vessels in your head during this procedure. The following are instructions and guidelines meant to help in your recovery once you have been discharged from the hospital. When to call our office Although your recovery will likely be uneventful, you may have some headaches and wrist or groin pain (depending on the access site for the angiogram). Call our office immediately (phone numbers listed at the end of these instructions) if you experience the following symptoms: Drainage from the wound Increased redness or pain at the incision site Fever greater than 101??F Nausea or vomiting Change in mental status Seizures Intractable headache Pain not relieved by pain medication or rest Call 911 immediately if you experience the following symptoms: Sudden weakness or difficulty speaking and/or swallowing Sudden onset persistent headache, with nausea and/or vomiting Sudden change or loss of vision New difficulty with breathing Chest pain Wound care Keep your incision clean. Do NOT use lotions, ointments, or creams on the incision. You may shower starting today. If you have a gauze dressing covering your wound, remove it after your first shower. DO NOT submerge yourself in any water that will cover the incision (bathtub, hot tub, swimming pool) for one week. Activity You may feel tired and run down for a period of time. It is normal to sleep more or take more naps.Light activity is ok but avoid heavy house work, yard work or strenuous exercise. Short walks are encouraged. Activities can be slowly increased as tolerated. Do not lift anything heavier than 5-10 pounds, or a gallon of milk, for 1 week. You can return to work in 1 week. If you need a work release, please contact Dian Rosa at . Diet You can return to your usual diet, unless instructed otherwise by your doctor. Medications Continue taking your Aspirin 325 mg daily and Plavix 75 mg daily. Follow up - Neurosurgery: You should follow up in Dr. Moss's clinic in 6 weeks with no additional imaging. If you do not hear from the office in the next 1-2 days regarding your appointment, please call to schedule one. Phone numbers Doctor???s Office: Dr. Jarek Moss, Dian Rosa (interventional neuroradiology nurse coordinator): After hours emergency: please contact [facility] at and ask to speak to the interventional neuroradiology fellow longwall shearer operator. RINTENDENT NONSELLING RINTENDENT NONSELLING RINTENDENT NONSELLING RINTENDENT NONSELLING documented in this encounter Medications at Time of Discharge acetaminophen (TYLENOL) 325 mg tablet Take 2 tablets (650 mg total) by mouth every 6 (six) hours as needed for pain Do not exceed 4000 mg of acetaminophen in a 24 hour period. 04/10/2022 multivitamin with minerals tabletIndication s:Vitamin Deficiency Prevention Take 1 tablet by mouth every morning vit X-W-jkaaam-zinc- lutein (PreserVision Lutein) 226-90-0.8-5 mg capsuleIndicatio ns:Eye [...] mouth daily 30 tablet 11 03/17/2022 2 aspirin 325 mg tablet Take 1 tablet (325 mg total) by mouth daily 30 tablet 04/11/2022 3 atenoloL (TENORMIN) 25 mg tablet TAKE 1 TABLET(25 MG) BY MOUTH DAILY 90 tablet 1 03/10/2022 3 butalbital-aceta minophen-caffein e-codeine (FIORICET WITH CODEINE) 75-802-00-30 mg per capsule Take 1 capsule by mouth every 4 (four) hours as needed for headaches 20 capsule 02/28/2022 3 calcium carbonate/vitami n D3 (CALTRATE 600 PLUS D ORAL) Take 1 tablet by mouth every morning 3 clopidogreL (PLAVIX) 75 mg tablet Take 1 tablet (75 mg total) by mouth daily 30 tablet 11 03/17/2022 2 clopidogreL (PLAVIX) 75 mg tablet Take 1 tablet (75 mg total) by mouth daily 30 tablet 04/11/2022 3 coenzyme Q10 200 mg capsule Take [...] times a day 360 tablet 04/09/2022 3 traMADoL (ULTRAM) 50 mg tabletIndication s:Pain [...] morning 3 documented as of this encounter Ordered Prescriptions Prescription Sig Dispense Quantity Refills Last Filled Start Date End Date acetaminophen (TYLENOL) 325 mg tablet Take 2 tablets (650 mg total) by mouth every 6 (six) hours as needed for pain Do not exceed 4000 mg of acetaminophen in a 24 hour period. 04/10/2022 aspirin 325 mg tablet Take 1 tablet (325 mg total) by mouth daily 30 tablet 04/11/2022 05/19/19 23 clopidogreL (PLAVIX) 75 mg tablet Take 1 tablet (75 mg total) by mouth daily 30 tablet 04/11/2022 04/21/19 23 documented in this encounter Discharge Disposition Disposition Code Departure Means Destination Discharge to home or self care documented in this encounter Progress Notes * Jonas Mendoza MD PhD - 04/10/2022 11:17 AM CST Neurosurgery Daily Progress Note 04/10/2022 Hospital Course 04/09 R carotid stent. PAC OK Subjective no complaints and pain well controlled Objective Physical Exam: Alert, Awake, and Oriented x3, Regards, Follows Commands Answers Questions Appropriately, Fluent Speech Language and vision grossly intact PERRL, EOMI, Face Symmetric, Tongue Midline BUE 5/5 BLE 5/5 No pronator drift Sensation intact and symmetric in all extremities to light touch Workman's Sign Negative, no ankle clonus Psych: normal mood Constitutional: no acute distress HENT: normocephalic Cardiovascular: normal rate Pulmonary: normal respiratory effort Abdominal: non-distended Musculoskeletal: no deformity Vitals: 24hr min/max vitals: Temp Min: 36.7 ??C (98.1 ??F) Max: 37.2 ??C (99 ??F) Pulse Min: 59 Max: 107 Resp Min: 9 Max: 21 SpO2 Min: 92 % Max: 100 % MAP (mmHg) Min: 70 Max: 100 Intake and output: I/O last 2 completed shifts: In: 2410 [P.O.:500; I.V.:1910] Out: 4275 [Urine:4225; Blood:50] Medications: Scheduled No current [facility]-ordered facility-administered medications on file. As needed No current Epic-ordered facility-administered medications on file. Labs: Lab Results Component Value Date SODIUM 137 04/09/2022 SODIUM 141 04/08/2022 SODIUM 139 03/25/2022 Lab Results Component Value Date GLUCOSE 90 04/09/2022 CALCIUM 8.2 (L) 04/09/2022 POTASSIUM 4.3 04/09/2022 CO2 26 04/09/2022 CHLORIDE 103 04/09/2022 BUNSER 7 (L) 04/09/2022 CREATININE 0.69 04/09/2022 Lab Results Component Value Date WBC 4.4 04/08/2022 WBC 4.4 03/25/2022 WBC 6.5 04/18/2021 HGB 12.5 04/08/2022 HGB 12.6 03/25/2022 HGB 13.9 04/18/2021 HCT 39.3 04/08/2022 HCT 38.8 03/25/2022 HCT 41.0 04/18/2021 LABPLAT 218 04/08/2022 LABPLAT 233 03/25/2022 LABPLAT 209 01/18/2021 Lab Results Component Value Date INR 1.1 04/08/2022 INR 0.97 01/04/2015 PT 11.4 04/08/2022 APTT 35 04/08/2022 APTT 33.3 01/04/2015 No components found for: TROPONIN PT/OT assessment: PT Recommendation/Plan: Home independently, No further PT indicated Assessment/Plan Hospital Day: 2 Yesika Denney is a 61 y.o. year old female who was admitted for angio for right carotid stent placement. Plan [ ] dc ludwig in AM (pt refusing overnight, ordered) [id number], plavix 75 Dc home 04/10 Responsible team (call resident in bold with questions) Vascular Note created by Jonas Mendoza MD PhD on 04/10/2022 at 3:22 PM. Cosigned by Abdiaziz Moss MD at 04/14/2022 9:09 AM SUPERINTENDENT NONSELLING RINTENDENT NONSELLING RINTENDENT NONSELLING * Prisca Welsh, PT - 04/10/2022 8:42 AM CST Physical Therapy Physical Therapy Initial Assessment NOTE: This is a summary note for the agustin assessments completed during the evaluation session. For full details, review chart review for all flowsheets documented on by this physical therapist on thisdate. Vital signs documented in vital signs flowsheet. Assessment Assessment Prognosis: Excellent Barriers to Discharge: None Plan Plan Plan : Discharge, If this is the last note, consider this the discharge summary PT Recommendation and Plan Recommendation/Plan PT Recommendation/Plan: Home independently, No further PT indicated PT Recommendation/Plan Comments: Pt agreeable PT Frequency during current admission: One time visit (Discharge from this service) PT Equipment Recommended: None PT - OK to Discharge: Yes PT Evaluation Complete: Yes General Information General Chart Reviewed: Yes Session Type: Evaluation (and d/c) PT Received On: 04/10/22 Safe Environment: Arm Band Checked, Call Light within Reach, Notified RN, Patient found in Supine, Bed in Lowest Position with Wheels locked, Overbed Table within Reach (Pt left lying in bed in NAD) Subjective: Agreeable to Therapy Family/Caregiver Present: No Physical Therapy-Patient Goal: Pt did not state PT goal Prior Function Prior Function Level of [place]: Independent with ADLs, Independent with homemaking with ambulation Lives With: Spouse Receives Help From: Spouse/Significant other Fall within the last 6 months: No Home Living Home Living Type of Home: House Home Layout: Able to live on main level with bedroom/bathroom Home Access: Stairs to enter with rails Entrance Stairs-Rails: Left Entrance Stairs-Number of Steps: 2 Home Mobility Equipment: None Precautions Precautions Precautions: Fall risk, Obstructive sleep apnea, Seizure Pain Pain Assessment Pain Assessment: 0-10 Pain Score: 4 Pain Location: Head Pain Interventions: RN Notified (Kera) Cognition Cognition Arousal/Alertness: Alert Orientation : Oriented X4 (person, place, time, situation) Compliance/Behavior: Easy to engage 6 Clicks Basic Mobility - 6 Click How much difficulty does the patient have: Turning over in bed: None How much difficulty does the patient currently have: Sitting down and standing up from a chair witharms?: None How much difficulty does the patient have: Moving from lying on back to sitting on the side of the bed?: None How much difficulty does the patient have: Moving to and from a bed to a chair including wheelchair?: None How much help does the patient currently need: Walk in hospital room?: None How much help from another person does the patient currently need: Climbing 3-5 steps with a railing?: None Total 6 Click Score (range 6-24): 24 Bed Mobility Bed Mobility 1 Bed Mobility From 1: Edge of bed Bed Mobility Type 1: To and from Bed Mobility to 1: Supine Level of Assistance 1: Modified Independent Bed Mobility Comments 1: HOB elevated. ALso performed long sit to supine mod I w/ HOB elevated Transfers Transfer 1 Transfer From 1: Stand Transfer Type 1: To and from Transfer to 1: Sit Transfer Device 1: No device Transfer Level of Assistance 1: Independent Trials/Comments 1: x2 trials Transfers 2 Transfer From 2: Stand Transfer Type 2: To Transfer to 2: (long sit in bed) Technique 2: (elevated LLE onto bed in kneeling position, then sat and elevated R LE onto bed.) Transfer Device 2: No device Transfer Level of Assistance 2: Modified Independent Balance Ambulation Ambulation 1 Distance (ft) 1: 180 Surface 1: Level tile Device 1: No device Assistance 1: Independent Quality of Gait 1: no significant deviations noted Stairs Stairs Stair Comments: Pt educated on sequencing to protect groin incision, performed 3 steps non-reciprocally to ascend and reciprocally to descend (I) w/ LHR Curbs RLE Assessment RLE Assessment RLE Assessment: (AROM WFL) LLE Assessment LLE Assessment LLE Assessment: (AROM WFL) Equipment Used Equipment Use Equipment Use Comments: gait belt Other Comments Other Comments Other PT Comments: Pt educated on PT POC and d/c recommendations. No PT needs identified. Pt reports slight vision change in OD, which she reports is the same as afterher previous angiogram. RN notified. PT Goals Multi-Disciplinary Problems (from Physical Therapy) Active Problems Not on file RINTENDENT NONSELLING * Kaye Alcantar MD - 04/09/2022 6:42 PM CST Neurosurgery Post Op Check Note Surgeon: Dr. Moss Procedure: angio for R carotid stent Exam: OE spont, regards, follows commands Oriented x3 PERRL, EOMI, FS, TM BUE and BLE 5/5 No drift R femoral access site c/d/i Plan[place] [address] SDU Diet: Advance as tolerated Antibiotics: None Activity Restrictions: Right leg straight x6hr post procedure Imaging required: None Cont ASA and plavix If there are any issues or questions, please page Kaye Alcantar MD at [phone]. If it is after 6pm, please use the Neurosurgery Call pager at [phone] Kaye Alcantar MD RINTENDENT NONSELLING * Charli Oleary RN - 04/09/2022 5:40 PM CST Pt arrives from PACU with no apparent distress noted. Pt connected to telemetry and hygiene performed per Pt request. Pt becomes nauseated and medicated, see mar. Pt resting comfortably with call light in reach. Will monitor and report to nightshift RINTENDENT NONSELLING documented in this encounter Nursing Notes * Kera Carrasco RN - 04/10/2022 11:17 AM CST Patient discharged home on 04/10/2022 at 1117. The patient and were given discharge instructions. Patient questions were answered and patient was safely transported to vehicle. RINTENDENT NONSELLING documented in this encounter Miscellaneous Notes * Plan of Care - Kera Carrasco RN - 04/10/2022 9:54 AM CST Goals: Monitor neur exam, medication adherence, promote comfort and ensure safety Summary: Problem: Health Behavior: Goal: Understanding of discharge needs will improve Outcome: Adequate for Discharge Problem: Lack of Knowledge: Goal: Ability to state ways to decrease the risk of falls will improve Outcome: Adequate for Discharge Problem: Safety: Goal: Will remain free from falls Outcome: Adequate for Discharge Goal: Will remain free from injury from falls Outcome: Adequate for Discharge Goal: Will remain free from falls and injury in home environment Outcome: Adequate for Discharge Problem: Lack of Knowledge: Goal: Ability to develop a pain control plan will improve Outcome: Adequate for Discharge Goal: Ability to identify pain intensity on a pain scale and rate it consistently will improve Outcome: Adequate for Discharge Goal: Ability to notify healthcare provider of pain before it becomes unmanageable or unbearable will improve Outcome: Adequate for Discharge Problem: Medication: Goal: Satisfaction with pain management regimen will improve Outcome: Adequate for Discharge Problem: Sensory: Goal: Ability to identify factors that increase the pain will improve Outcome: Adequate for Discharge Goal: Pain level will decrease Outcome: Adequate for Discharge Problem: Activity: Goal: Risk for activity intolerance will decrease Outcome: Adequate for Discharge Problem: Lack of Knowledge: Goal: Knowledge of diagnostic tests will improve Outcome: Adequate for Discharge Goal: Knowledge of disease or condition will improve Outcome: Adequate for Discharge Goal: Knowledge of safety precautions will improve Outcome: Adequate for Discharge Goal: Knowledge of the prescribed therapeutic regimen will improve Outcome: Adequate for Discharge Problem: Health Behavior: Goal: Ability to state signs and symptoms to report to health care provider will improve Outcome: Adequate for Discharge Problem: Physical Regulation: Goal: Ability to maintain clinical measurements within normal limits will improve Outcome: Adequate for Discharge Problem: Infection Risk: Goal: Will remain free from infection Outcome: Adequate for Discharge Problem: Safety: Goal: Ability to remain free from injury will improve Outcome: Adequate for Discharge Goal: Will remain free from falls Outcome: Adequate for Discharge Problem: Self-Care: Goal: Ability to participate in self-care as condition permits will improve Outcome: Adequate for Discharge Problem: Sensory: Goal: Pain level will decrease Outcome: Adequate for Discharge Goal: Ability to develop a pain control plan will improve Outcome: Adequate for Discharge Problem: Skin Integrity: Goal: Risk for impaired skin integrity will decrease Outcome: Adequate for Discharge Problem: Tissue Perfusion: Goal: Risk factors for ineffective tissue perfusion will decrease Outcome: Adequate for Discharge RINTENDENT NONSELLING * Plan of Care - Kieran Allan RN - 04/09/2022 10:24 PM SUPERINTENDENT NONSELLING Problem: Health Behavior: Goal: Understanding of discharge needs will improve Outcome: Progressing Problem: Lack of Knowledge: Goal: Ability to state ways to decrease the risk of falls will improve Outcome: Progressing Problem: Safety: Goal: Will remain free from falls Outcome: Progressing Goal: Will remain free from injury from falls Outcome: Progressing Goal: Will remain free from falls and injury in home environment Outcome: Progressing Problem: Lack of Knowledge: Goal: [...] Goal: Pain level will decrease Outcome: Progressing Problem: Activity: Goal: Risk for activity intolerance will decrease Outcome: Progressing Problem: Lack of Knowledge: Goal: Knowledge of diagnostic tests will improve Outcome: Progressing Goal: Knowledge of disease or condition will improve Outcome: Progressing Goal: Knowledge of safety precautions will improve Outcome: Progressing Goal: Knowledge of the prescribed therapeutic regimen will improve Outcome: Progressing Problem: Health Behavior: Goal: Ability to state signs and symptoms to report to health care provider will improve Outcome: Progressing Problem: Physical Regulation: Goal: Ability to maintain clinical measurements within normal limits will improve Outcome: Progressing Problem: Infection Risk: Goal: Will remain free from infection Outcome: Progressing Problem: Safety: Goal: Ability to remain free from injury will improve Outcome: Progressing Goal: Will remain free from falls Outcome: Progressing Problem: Self-Care: Goal: Ability to participate in self-care as condition permits will improve Outcome: Progressing Problem: Sensory: Goal: Pain level will decrease Outcome: Progressing Goal: Ability to develop a pain control plan will improve Outcome: Progressing Problem: Skin Integrity: Goal: Risk for impaired skin integrity will decrease Outcome: Progressing Problem: Tissue Perfusion: Goal: Risk factors for ineffective tissue perfusion will decrease Outcome: Progressing Goals: Clinical Goals for the Shift: Neuro exam, VSS, I&Os, comfort, sleep Summary: Neuro stable, pt is resting comfortably in bed RINTENDENT NONSELLING * Pre-Procedure Note - Chaka Garrett MD PhD - 04/09/2022 7:30 AM SUPERINTENDENT NONSELLING Radiology Short Sedation Form Indication: 61 y/o F with a 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 Planned Sedation/Anesthesia: anesthesia History of Sedation/ Anesthesia: No See H&P dated 03/28/2022 for details of history, review of systems, physical exam, labs, imaging data and assessment. Physical Examination: BP 136/80 Pulse 72 Temp 36.7 ??C (98.1 ??F) (Oral) Resp 14 Ht 160 cm (5' 3 ) Wt 64 kg (141 lb) LMP (LMP Unknown) SpO2 97% BMI 24.98 kg/m?? Neurologic Examination: Mental status: Awake, Alert, Oriented x 3 (person, place and time) Speech: Normal fluency, repetition, and comprehension. Cranial Nerves: II: Pupils equal and reactive bilaterally, visual guerrero full, III/IV/: Extraocular movements intact without nystagmus, V: Facial sensation normal bilaterally, VII: Facial muscle activation normal bilaterally, and VIII: hearing intact bilaterally Motor: Normal bulk and tone of the four extremities. 5/5 strength in the bilateral upper and lower extremities, no pronator drift Sensory: Normal sensation to light touch in the four extremities Changes in patient condition since prior assessment: none Most Recent Vitals: Vitals: 04/10/22 1000 BP: 136/80 Pulse: 72 Resp: 14 Temp: 36.7 ??C (98.1 ??F) SpO2: 97% Airway assessment: normal ASA Score: ASA 2 - Patient with mild systemic disease with no functional limitations NPO time: after midnight Benefits, risks and alternatives of procedure and planned sedation have been discussed with the patient and/or their outreach representative. All questions answered and they agree to proceed. RINTENDENT NONSELLING RINTENDENT NONSELLING documented in this encounter Plan of Treatment Not on file documented as of this encounter Procedures Procedure Name Priority Date/Time Associated Diagnosis Comments B CHECK SAMPLE STAT 04/10/2022 12:44 AM SUPERINTENDENT NONSELLING EGFR Routine 04/09/2022 10:22 PM SUPERINTENDENT NONSELLING HC ANTIBODY SCREEN RBC Timed 04/09/2022 10:22 PM SUPERINTENDENT NONSELLING BASIC METABOLIC PANEL Routine 04/09/2022 10:22 PM SUPERINTENDENT NONSELLING PLACEMENT CAROTID STENT WO PROTECTION RIGHT Schedule Routine, Read Routine (OP Routine) 04/09/2022 11:21 AM SUPERINTENDENT NONSELLING Cerebral aneurysm, nonruptured POCT ACTIVATED CLOTTING TIME, LOW RANGE Routine 04/09/2022 10:43 AM SUPERINTENDENT NONSELLING POCT ACTIVATED CLOTTING TIME, LOW RANGE Routine 04/09/2022 10:06 AM SUPERINTENDENT NONSELLING MISLABLED TEST Routine 04/09/2022 9:35 AM SUPERINTENDENT NONSELLING POCT ACTIVATED CLOTTING TIME, LOW RANGE Routine 04/09/2022 9:35 AM SUPERINTENDENT NONSELLING COVID-19 CORONAVIRUS RNA Routine 04/09/2022 7:15 AM SUPERINTENDENT NONSELLING documented in this encounter Results * Check Sample (04/10/2022 12:44 AM SUPERINTENDENT NONSELLING) ABO Rh A Negative [facility] OTHER 04/10/2022 12:4 4 AM SUPERINTENDENT NONSELLING 04/10/2022 2:25 AM SUPERINTENDENT NONSELLING us Abdiaziz Moss MD LAB BLOOD ORDERABLES Final Re sult [facility] Department [place] [address] * eGFR (04/09/2022 10:22 PM SUPERINTENDENT NONSELLING) eGFR >90 90 - 130 mL/min/1. 73 m2 [facility] Comment: Interpretive Data Reference Interval Normal ?>/= 90 mL/min/1.73m2 Mildly decreased* ? 60 - 89 mL/min/1.73m2 Mildly to moderately decreased ?45 - 59 mL/min/1.73m2 Moderately to severely decreased ??30 - 44 mL/min/1.73m2 Severely decreased ?15 - 29 mL/min/1.73m2 Kidney Failure ?< 15 ??mL/min/1.73m2 *Relative to young adult level Estimated glomerular filtration rate is determined by the 2020 CKD-EPI equation recommended by the National [employer] (A Unifying Approach to GFR Estimation: Recommendations of the NKF-ASK Task Force on Reassessing the Inclusion of Race in Diagnosing Kidney Disease, JASN 2020). The CKD-EPI equation should not be used for patients with unstable renal function and has not been validated in children and those over 70. Current interpretive data was last reviewed 2021. Blood 04/09/2022 10:2 2 PM SUPERINTENDENT NONSELLING 04/10/2022 12:25 AM SUPERINTENDENT NONSELLING us Abdiaziz Moss MD LAB BLOOD ORDERABLES Final Re sult [facility] Department [place] [address] * (ABNORMAL) Basic metabolic panel (04/09/2022 10:22 PM SUPERINTENDENT NONSELLING) Sodium 137 135 - 145 mmol/L [facility] Potassium, pl 4.3 3.3 - 4.9 mmol/L [facility] Chloride 103 97 - 110 mmol/L [facility] CO2 26 22 - 32 mmol/L [facility] Anion gap 8 2 - 15 mmol/L [facility] BUN 7(L) 8 - 25 mg/dL [facility] Creatinine 0.69 0.60 - 1.10 mg/dL [facility] Glucose 90 70 - 199 mg/dL [facility] Comment: Interpretive Data Fasting glucose >/= [...] interpretive data was last revised 2017. Calcium 8.2(L) 8.5 - 10.3 mg/dL [facility] Blood 04/09/2022 10:2 2 PM SUPERINTENDENT NONSELLING 04/10/2022 12:25 AM SUPERINTENDENT NONSELLING Abdiaziz Moss MD LAB BLOOD ORDERABLES Final Re sult [facility] Department [place] [address] * Type and screen (04/09/2022 10:22 PM SUPERINTENDENT NONSELLING) Tamiko, indirect Negative [facility] ABO Rh A Negative [facility] Blood 04/09/2022 10:2 2 PM SUPERINTENDENT NONSELLING 04/10/2022 12:21 AM SUPERINTENDENT NONSELLING Narrative [facility] - 04/10/2022 1:33 AM SUPERINTENDENT NONSELLING Has the patient had Daratumumab or Isatuximab in the past 6 months?->Unknown Abdiaziz Moss MD LAB BLOOD BANK TEST ORDERABLE S Final Result [facility] Department [place] [address] * IR Placement Carotid Stent WO Protection Right (04/09/2022 11:21 AM SUPERINTENDENT NONSELLING) Anatomical Region Laterality Modality Neck Right Radio Fluoroscop y 04/13/2022 11:1 7 PM SUPERINTENDENT NONSELLING Impressions 04/14/2022 8:07 AM SUPERINTENDENT NONSELLING 1. Initial angiography demonstrated a right internal [...] arteries. ??There are no distal thromboembolic complications PLAN: - Continue aspirin 325 mg and Plavix 75 mg - Observation overnight and possible discharge following day with the plan for a later return and treatment of the anterior communicating artery aneurysm. Dictated by: Chaka Garrett MD The radiology attending physician has personally reviewed this study, and had reviewed and/or edited this written report and agrees with it. Electronically signed by: Abdiaziz Moss M.D. Narrative 04/14/2022 8:07 AM SUPERINTENDENT NONSELLING EXAMINATION: Endovascular stenting of the bilateral cervical internal carotid arteries HISTORY: 61 y/o F with a anterior communicating artery aneurysm and R ICA dissection ATTENDING PHYSICIAN: Dr. Abdiaziz Moss was present for critical portions of the procedure. ASSISTING PHYSICIANS: Dr. Chaka Garrett PROCEDURES PERFORMED: 1. ??Extracranial angioplasty and stenting of right and left cervical internal carotid arteries without distal embolic protection 2. ??Cerebral angiography: Right common carotid artery, left common carotid artery, right femoral artery injections 3. ??Ultrasound-guided vascular access 4. ??Hemostatic device placement ANESTHESIA: General anesthesia DEVICES: Infinity LS 6-Guamanian long sheath Catalyst 5 intermediate catheter Synchro select standard preshaped 014 microwire Surpass streamline 5 x 50 mm Hyperform balloon Headway 21 microcatheter LVIS stent 5.5 x 33 mm MEDICATIONS: ACTs were monitored throughout the case and heparin was administered as clinically indicated CONTRAST: Visipaque-320 120 mL ESTIMATED BLOOD LOSS: 50 mL COMPLICATIONS: A dissection was noted in the cervical left internal carotid artery, not seen on prior imaging. ??This dissection may be iatrogenic, or previously present and exacerbated by the procedure. TECHNIQUE: Following a discussion of the risks, benefits, and alternatives to the procedure, and after all questions about the procedure had been answered, the patient provided written informed consent. Specific risks discussed included stroke, permanent and transient neurological deficits, vascular injury, bleeding, , and hematoma formation. General anesthesia was provided by the Department of Anesthesiology for the duration of the case. The patient was prepared and draped in the standard sterile fashion. The femoral head was localized by fluoroscopy The right femoral artery was punctured using a single-wall needle needle under real-time ultrasound guidance. Ultrasound images demonstrated a patent vessel and were stored to PACS. A 6 [place] Infinity long sheath was inserted over a 3 mm J wire and connected to a regulated pressurized infusion of heparinized saline. A coaxial assembly comprising a Vertebral select catheter and Terumo glidewire wire was prepared in the standard fashion through a series of rotating hemostatic valves connected to a pressurized infusion of heparinized saline. This assembly was gently advanced to the aortic arch and was used to carefully select the right common carotid artery. ??A right common carotid artery angiogram with cervical projection showed a patent carotid bifurcation with severe, >90% stenosis of the mid cervical right internal carotid artery at the level of the known dissection. 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 ??A right common carotid artery angiogram with cranial projection showed patent intracranial vessels. ??There was prominent washout of the right middle cerebral artery indicating cross flow from the anterior communicating artery. A hyperform balloon was prepared and regular fashion on the back table. A coaxial assembly comprising a catalyst 5 intermediate catheter and a Synchro select microwire was inserted through the long sheath. ??The catalyst 5 catheter was positioned proximal to the dissection in the right internal carotid artery. ??The microwire was removed. A surpass streamline 5 x 50 mm flow diverter was inserted through the intermediate catheter and deployed across the area of stenosis and pseudoaneurysm under continuous fluoroscopic guidance. A hyper form balloon was inserted and used to angioplasty across the distal and proximal portions of the device. ??A repeat angiogram showed a widely patent device with brisk antegrade flow and contrast stasis in the pseudoaneurysm. Attention was then turned to the left side where the left common carotid artery was selected using the vertebral catheter and Glidewire. ??The inferior long sheath was advanced into the left common carotid artery. ??The vertebral catheter was removed and exchanged for the catalyst 5 intermediate catheter the catheter was advanced over the guidewire into the midportion of the cervical left internal carotid artery. When checking catheter position prior to angiograms for treating the anterior communicating artery aneurysm contrast stasis was seen in the periphery of the distal left internal carotid artery. ??The intermediate catheter was pulled back and a angiogram was performed with distal cervical projection. ??This angiogram revealed a 12 mm long dissection of the cervical left internal carotid artery just prior to the petrous portion. ??Some reduction in antegrade flow was seen across the dissection incision was made to treat with an LVIS stent. ??A headway 21 microcatheter was used together with the synchro microwire to cross the area of dissection. ??A 5.5 x 33 mm LVIS stent was deployed under continuous fluoroscopic guidance. ??A repeat angiogram of the left common carotid artery with cervical projection showed a widely patent device with brisk antegrade flow. ??Contrast stasis was seen in the false lumen of the dissection. ??A repeat common carotid artery injection with cranial projections showed no distal thrombus embolic complications. ??The anterior communicating artery aneurysm was seen but not fully characterized on the current exam. Hemostasis was achieved after sheath removal by placement of an AngioSeal closure device. The patient was transported to the post anesthesia care unit in unchanged neurological condition. Procedure Note Abdiaziz Moss MD - 04/14/2022 EXAMINATION: Endovascular stenting of the bilateral cervical internal carotid arteries HISTORY: 61 y/o F with a anterior communicating artery aneurysm and R ICA dissection ATTENDING PHYSICIAN: Dr. Abdiaziz Moss was present for critical portions of the procedure. ASSISTING PHYSICIANS: Dr. Chaka Garrett PROCEDURES PERFORMED: 1. Extracranial angioplasty and stenting of right and left cervical internal carotid arteries without distal embolic protection 2. Cerebral angiography: Right common carotid artery, left common carotid artery, right femoral artery injections 3. Ultrasound-guided vascular access 4. Hemostatic device placement ANESTHESIA: General anesthesia DEVICES: Infinity LS 6-Guamanian long sheath Catalyst 5 intermediate catheter Synchro select standard preshaped 014 microwire Surpass streamline 5 x 50 mm Hyperform balloon Headway 21 microcatheter LVIS stent 5.5 x 33 mm MEDICATIONS: ACTs were monitored throughout the case and heparin was administered as clinically indicated CONTRAST: Visipaque-320 120 mL ESTIMATED BLOOD LOSS: 50 mL COMPLICATIONS: A dissection was noted in the cervical left internal carotid artery, not seen on prior imaging. This dissection may be iatrogenic, or previously present and exacerbated by the procedure. TECHNIQUE: Following a discussion of the risks, benefits, and alternatives to the procedure, and after all questions about the procedure had been answered, the patient provided written informed consent. Specific risks discussed included stroke, permanent and transient neurological deficits, vascular injury, bleeding, , and hematoma formation. General anesthesia was provided by the Department of Anesthesiology for the duration of the case. The patient was prepared and draped in the standard sterile fashion. The femoral head was localized by fluoroscopy The right femoral artery was punctured using a single-wall needle needle under real-time ultrasound guidance. Ultrasound images demonstrated a patent vessel and were stored to PACS. A 6 Guamanian Infinity long sheath was inserted over a 3 mm J wire and connected to a regulated pressurized infusion of heparinized saline. A coaxial assembly comprising a Vertebral select catheter and Terumo glidewire wire was prepared in the standard fashion through a series of rotating hemostatic valves connected to a pressurized infusion of heparinized saline. This assembly was gently advanced to the aortic arch and was used to carefully select the right common carotid artery. A right common carotid artery angiogram with cervical projection showed a patent carotid bifurcation with severe, >90% stenosis of the mid cervical right internal carotid artery at the level of the known dissection. 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 A right common carotid artery angiogram with cranial projection showed patent intracranial vessels. There was prominent washout of the right middle cerebral artery indicating cross flow from the anterior communicating artery. A hyperform balloon was prepared and regular fashion on the back table. A coaxial assembly comprising a catalyst 5 intermediate catheter and a Synchro select microwire was inserted through the long sheath. The catalyst 5 catheter was positioned proximal to the dissection in the right internal carotid artery. The microwire was removed. A surpass streamline 5 x 50 mm flow diverter was inserted through the intermediate catheter and deployed across the area of stenosis and pseudoaneurysm under continuous fluoroscopic guidance. A hyper form balloon was inserted and used to angioplasty across the distal and proximal portions of the device. A repeat angiogram showed a widely patent device with brisk antegrade flow and contrast stasis in the pseudoaneurysm. Attention was then turned to the left side where the left common carotid artery was selected using the vertebral catheter and Glidewire. The inferior long sheath was advanced into the left common carotid artery. The vertebral catheter was removed and exchanged for the catalyst 5 intermediate catheter the catheter was advanced over the guidewire into the midportion of the cervical left internal carotid artery. When checking catheter position prior to angiograms for treating the anterior communicating artery aneurysm contrast stasis was seen in the periphery of the distal left internal carotid artery. The intermediate catheter was pulled back and a angiogram was performed with distal cervical projection. This angiogram revealed a 12 mm long dissection of the cervical left internal carotid artery just prior to the petrous portion. Some reduction in antegrade flow was seen across the dissection incision was made to treat with an LVIS stent. A headway 21 microcatheter was used together with the synchro microwire to cross the area of dissection. A 5.5 x 33 mm LVIS stent was deployed under continuous fluoroscopic guidance. A repeat angiogram of the left common carotid artery with cervical projection showed a widely patent device with brisk antegrade flow. Contrast stasis was seen in the false lumen of the dissection. A repeat common carotid artery injection with cranial projections showed no distal thrombus embolic complications. The anterior communicating artery aneurysm was seen but not fully characterized on the current exam. Hemostasis was achieved after sheath removal by placement of an AngioSeal closure device. The patient was transported to the post anesthesia care unit in unchanged neurological condition. IMPRESSION: 1. Initial angiography demonstrated a right [...] treatment of the anterior communicating artery aneurysm. Dictated by: Chaka Garrett MD The radiology attending physician has personally reviewed this study, and had reviewed and/or edited this written report and agrees with it. Electronically signed by: Abdiaziz Moss M.D. Abdiaziz Moss MD IMG IR PROCEDURES Final Resul t * (ABNORMAL) POCT Activated clotting time, low range (04/09/2022 10:43 AM SUPERINTENDENT NONSELLING) ACT 340(H) 123 - 168 sec [facility] Blood 04/09/2022 10:4 3 AM SUPERINTENDENT NONSELLING 04/09/2022 10:43 AM SUPERINTENDENT NONSELLING Result [facility] Abdiaziz Moss MD LAB POCT ORDERABLES - DEVICE Final Result Performing Organization Address [facility] Co de Phone Number [facility] Department [place] [address] * (ABNORMAL) POCT Activated clotting time, low range (04/09/2022 10:06 AM SUPERINTENDENT NONSELLING) ACT 354(H) 123 - 168 sec [facility] Blood 04/09/2022 10:0 6 AM SUPERINTENDENT NONSELLING 04/09/2022 10:06 AM SUPERINTENDENT NONSELLING Abdiaziz Moss MD LAB POCT ORDERABLES - DEVICE Final Result Performing Organization Address [facility] Co de Phone Number [facility] Department [place] [address] * POCT Activated clotting time, low range (04/09/2022 9:35 AM SUPERINTENDENT NONSELLING) ACT 164 123 - 168 sec [facility] Blood 04/09/2022 9:35 AM SUPERINTENDENT NONSELLING 04/09/2022 9:35 AM SUPERINTENDENT NONSELLING Abdiaziz Moss MD LAB POCT ORDERABLES - DEVICE Final Result Performing Organization Address [facility] Co de Phone Number [facility] Department [place] [address] * Mislabeled Test (04/09/2022 9:35 AM SUPERINTENDENT NONSELLING) Location Other location [facility] Reason No Signature On Blood Bank Specimen [facility] Mislabel resolution Testing canceled [facility] Blood 04/09/2022 9:35 AM SUPERINTENDENT NONSELLING 04/09/2022 11:05 AM SUPERINTENDENT NONSELLING Abdiaziz Moss MD LAB BLOOD ORDERABLES Final Re sult Performing Organization Address [facility] de Phone Number [facility] Department [place] [address] * COVID-19 Coronavirus RNA Nasopharyngeal (04/09/2022 7:15 AM SUPERINTENDENT NONSELLING) Pathologist [facility] COVID-19 RNA Negative Negative [facility] Nasopharyngeal 04/09/2022 7: 15 AM SUPERINTENDENT NONSELLING 04/09/2022 9:03 AM SUPERINTENDENT NONSELLING Narrative [facility] - 04/09/2022 9:47 AM SUPERINTENDENT NONSELLING Is the patient experiencing any symptoms consistent with COVID (eg. Fever, cough, shortness of breath)?->No What is the reason for testing?->Bed placement or semi-private room (Rapid) ??Interpretive data: Synonyms for this test include: PCR and NAAT . ??This test is performed using the [employer] Xpert Xpress plus assay. This is a [...] - GENERAL OR DERABLES Final Result [facility] Department [place] [address] documented in this encounter Visit Diagnoses Diagnosis Cerebral aneurysm, nonruptured documented in this encounter Administered Medications Inactive Administered Medications - up to 3 most recent administrations Medication Order MAR Action Action Date Dose Rate Site acetaminophen (TYLENOL) tablet 1,000 mg 1,000 mg, oral, Once, On Thu04/09/22 at 1415, For 1 dose, Phase I, Indications: PainIndications:Pain Given 04/09/2022 1:30 PM SUPERINTENDENT NONSELLING 1,000 mg acetaminophen (TYLENOL) tablet 650 mg 650 mg, oral, Every 4 hours PRN, 1st line for pain, Starting on Thu04/09/22 at 1953 Given 04/10/2022 2:14 AM SUPERINTENDENT NONSELLING 650 mg aspirin enteric coated tablet 325 mg 325 mg, oral, Every morning, First dose on Leny 04/10/22 at 0900, Do not crush, chew, cut, dissolve, open or otherwise manipulate tablet/capsule., Indications: prevention of thrombosisIndications:prev ention of thrombosis Given 04/10/2022 9:10 AM SUPERINTENDENT NONSELLING 325 mg atenoloL (TENORMIN) tablet 25 mg 25 mg, oral, Every morning, First dose on Leny 04/10/22 at 0900, Indications: tachcardiaIndications:tach cardia Given 04/10/2022 9:11 AM SUPERINTENDENT NONSELLING 25 mg clopidogreL (PLAVIX) tablet 75 mg 75 mg, oral, Every morning, First dose on Leny 04/10/22 at 0900, Indications: prevent clotsIndications:prevent clots Given 04/10/2022 9:10 AM SUPERINTENDENT NONSELLING 75 mg docusate (COLACE) 10 mg/mL oral liquid 100 mg 100 mg, feeding tube, 2 times daily, First dose on Thu04/09/22 at 2100, If medications administered per tube. , Indications: constipation, Stool SoftenerIndications:consti pation,Stool Softener docusate sodium (COLACE) capsule 100 mg 100 mg, oral, 2 times daily, First dose on Thu04/09/22 at 2100, If able to swallow capsules., Indications: constipation, Stool SoftenerIndications:consti pation,Stool Softener Given 04/10/2022 9:11 AM SUPERINTENDENT NONSELLING 100 mg famotidine (PEPCID) 20 mg/10 mL in sterile water (premix) 20 mg 20 mg, intravenous, at 300 mL/hr, Administer over 2 Minutes, 2 times daily, First dose on Thu04/09/22 at 2100, Unable to tolerate enteral administration., Indications: Prevention of Stress UlcerIndications:Preventio n of Stress Ulcer famotidine (PEPCID) tablet 20 mg 20 mg, oral, 2 times daily, First dose on Thu04/09/22 at 2100, Able to swallow tablets., Indications: Prevention of Stress UlcerIndications:Preventio n of Stress Ulcer Given 04/10/2022 9:11 AM SUPERINTENDENT NONSELLING 20 mg FLUoxetine (PROzac) capsule 20 mg 20 mg, oral, Every morning, First dose on Leny 04/10/22 at 0900, Indications: hot flashesIndications:hot flashes Given 04/10/2022 9:11 AM SUPERINTENDENT NONSELLING 20 mg heparin in 0.9% sodium chloride 2,000 unit/1,000 mL (2 unit/mL) infusion (premix) Continuous PRN, Starting on Thu04/09/22 at 0914, Intra-Op New Bag 04/09/2022 9:14 AM SUPERINTENDENT NONSELLING 60 Units/hr 30 mL/hr Right Groin HYDROmorphone (DILAUDID) injection 0.2 mg 0.2 mg, intravenous, Administer over 2 Minutes, Every 10 min PRN, 1st line for pain, Starting on Thu04/09/22 at 1138, Phase I, Switch to 2nd line analgesic order if pain is uncontrolled or increasing after 2 doses. Notify Anesthesiologist if total PACU dose reaches 2 mg and pain score 5/10 or more., Indications: PainIndications:Pain Given 04/09/2022 12:10 PM SUPERINTENDENT NONSELLING 0.2 mg Given 04/09/2022 11:40 AM SUPERINTENDENT NONSELLING 0.2 mg iodixanoL (VISIPAQUE) 320 mg iodine/mL injection As needed, Starting on Thu04/09/22 at 1104, Intra-Op Given 04/09/2022 11:04 AM SUPERINTENDENT NONSELLING 120 mL Other (Comment) Lactated Ringer's (LR) infusion - ADS Override Pull Starting on Thu04/09/22 at 0703, For 1 dose, Created by [email or web address] override Lactated Ringer's (LR) infusion 30 mL/hr, intravenous, Continuous, Starting on Thu04/09/22 at 0730, Pre-Op Restarted 04/09/2022 10:55 AM SUPERINTENDENT NONSELLING Rate/Dose Verify 04/09/2022 8:26 AM SUPERINTENDENT NONSELLING 30 mL/h r New Bag 04/09/2022 7:28 AM SUPERINTENDENT NONSELLING 30 mL/hr 30 mL/hr lisinopriL (PRINIVIL,ZESTRIL) tablet 20 mg 20 mg, oral, Every morning, First dose on Leny 04/10/22 at 0900, Indications: hypertensionIndications:hypertension Given 04/10/2022 9:10 AM SUPERINTENDENT NONSELLING 20 mg ondansetron (ZOFRAN) injection 4 mg 4 mg, intravenous, Administer over 2 Minutes, Every 6 hours PRN, nausea, vomiting, if not tolerating PO, Starting on Thu04/09/22 at 2005, Indications: Nausea and VomitingIndications:Nausea and Vomiting ondansetron ODT (ZOFRAN-ODT) disintegrating tablet 4 mg 4 mg, oral, Every 6 hours PRN, nausea, vomiting, Starting on Thu04/09/22 at 2005, Indications: Nausea and VomitingIndications:Nausea and Vomiting oxyCODONE (ROXICODONE) tablet 5 mg 5 mg, oral, Once, On Thu04/09/22 at 1645, For 1 dose, Phase I, Indications: PainIndications:Pain Given 04/09/2022 4:20 PM SUPERINTENDENT NONSELLING 5 mg prochlorperazine (COMPAZINE) injection 5 mg 5 mg, intravenous, Administer over 2 Minutes, Once as needed, nausea, vomiting, Starting on Thu04/09/22 at 1138, For 1 dose, Phase I, Proceed to haloperidol if no relief within 30 minutes. Given 04/09/2022 7:11 PM SUPERINTENDENT NONSELLING 5 mg senna (SENOKOT) tablet 1 tablet 1 tablet, oral, 2 times daily, First dose on Thu04/09/22 at 2100, If able to swallow tablets, Indications: constipationIndications:constipation Given 04/10/2022 9:10 AM SUPERINTENDENT NONSELLING 1 table t senna 1.76 mg/mL syrup 8.8 mg 8.8 mg, feeding tube, 2 times daily, First dose on Thu04/09/22 at 2100, If medications administered per tube., Indications: constipationIndications:constipation sodium chloride 0.9% flush 0.5-20 mL 0.5-20 mL, intra-catheter, As needed, line care, Starting on Thu04/09/22 at 0658, Flush volume based on line type and size. Flush before and after each use. sodium chloride 0.9% flush 0.5-20 mL 0.5-20 mL, intra-catheter, Every 8 hours scheduled, First dose on Thu04/09/22 at 2200, Flush volume based on line type and size. , Indications: FlushingIndications:Flushing Given 04/10/2022 5:46 AM SUPERINTENDENT NONSELLING 10 mL Given 04/09/2022 9:31 PM SUPERINTENDENT NONSELLING 10 mL valACYclovir (VALTREX) tablet 500 mg 500 mg, oral, Every morning, First dose on Thu04/10/22 at 0900, Indications: cold sore preventionIndications:cold sore prevention Given 04/10/2022 9:11 AM SUPERINTENDENT NONSELLING 5 00 mg documented in this encounter Discontinued Medications Medication Sig Discontinue Reason Start Date End Da te clopidogreL (PLAVIX) 75 mg tablet Take 1 tablet (75 mg total) by mouth daily Stop Taking at Discharge 03/17/2022 04/11/2022 aspirin 325 mg enteric coated tablet Take 1 tablet (325 mg total) by mouth daily Stop Taking at Discharge 03/17/2022 04/11/2022 documented as of this encounter Active and Recently Administered Medications Times are shown in SUPERINTENDENT NONSELLING. Scheduled Medication Order 04/08/2022 04/09/2022 04/10/2022 acetaminophen (TYLENOL) tablet 1,000 mg (COMPLETED) 1,000 mg, oral, Once, On Thu04/09/22 at 1415, For 1 dose, Phase I, Indications: Pain 1330 (Given - Provider: Doretha Casey RN) aspirin enteric coated tablet 325 mg 325 mg, oral, Every morning, First dose on Leny 04/10/22 at 0900, Do not crush, chew, cut, dissolve, open or otherwise manipulate tablet/capsule., Indications: prevention of thrombosis 0910 (Given - Provid er: Kera Carrasco RN) atenoloL (TENORMIN) tablet 25 mg 25 mg, oral, Every morning, First dose on Thu04/10/22 at 0900, Indications: tachcardia 0911 (Given - Provid er: Kera Carrasco RN) clopidogreL (PLAVIX) tablet 75 mg 75 mg, oral, Every morning, First dose on Thu04/10/22 at 0900, Indications: prevent clots 09 (Given - Provid er: Kera Carrasco RN) docusate (COLACE) 10 mg/mL oral liquid 100 mg(Linked Group 1) 100 mg, feeding tube, 2 times daily, First dose on Thu04/09/22 at 2100, If medications administered per tube. , Indications: constipation, Stool Softener 2129 (See Alternative - Provider: Kieran Allan RN) 0911 (See Alternative - Provider: Kera Carrasco RN) docusate sodium (COLACE) capsule 100 mg(Linked Group 1) 100 mg, oral, 2 times daily, First dose on Thu04/09/22 at 2100, If able to swallow capsules., Indications: constipation, Stool Softener 2129 (Not Given - Provider: Kieran Allan RN - Reason: Patient/family refused) 0911 (Given - Provider: Kera Carrasco RN) famotidine (PEPCID) 20 mg/10 mL in sterile water (premix) 20 mg 20 mg, intravenous, at 300 mL/hr, Administer over 2 Minutes, Once, On Thu04/09/22 at 0745, For 1 dose, Indications: Reflux 0745 (Due) famotidine (PEPCID) 20 mg/10 mL in sterile water (premix) 20 mg(Linked Group 2) 20 mg, intravenous, at 300 mL/hr, Administer over 2 Minutes, 2 times daily, First dose on Thu04/09/22 at 2100, Unable to tolerate enteral administration., Indications: Prevention of Stress Ulcer 2130 (See Alternative - Provider: Kieran Allan RN) 910 (See Alternative - Provider: Kera Carrasco RN) famotidine (PEPCID) tablet 20 mg(Linked Group 2) 20 mg, oral, 2 times daily, First dose on Thu04/09/22 at 2100, Able to swallow tablets., Indications: Prevention of Stress Ulcer 2130 (Not Given - Provider: Kieran Allan RN - Reason: Patient/family refused) 910 (Given - Provider: Kera Carrasco RN) FLUoxetine (PROzac) capsule 20 mg 20 mg, oral, Every morning, First dose on Thu04/10/22 at 0900, Indications: hot flashes 910 (Given - Provid er: Kear Carrasco RN) lisinopriL (PRINIVIL,ZESTRIL) tablet 20 mg 20 mg, oral, Every morning, First dose on Thu04/10/22 at 0900, Indications: hypertension 909 (Given - Provid er: Kera Carrasco RN) oxyCODONE (ROXICODONE) tablet 5 mg (COMPLETED) 5 mg, oral, Once, On Thu04/09/22 at 1645, For 1 dose, Phase I, Indications: Pain 1620 (Given - Provider: Doretha Casey RN) senna (SENOKOT) tablet 1 tablet(Linked Group 3) 1 tablet, oral, 2 times daily, First dose on Thu04/09/22 at 2100, If able to swallow tablets, Indications: constipation 2130 (Not Given - Provider: Kieran Allan RN - Reason: Patient/family refused) 09 (Given - Provider: Kera Carrasco RN) senna 1.76 mg/mL syrup 8.8 mg(Linked Group 3) 8.8 mg, feeding tube, 2 times daily, First dose on Thu04/09/22 at 2100, If medications administered per tube., Indications: constipation 2130 (See Alternative - Provider: Kieran Allan RN) 09 (See Alternative - Provider: Kera Carrasco RN) sodium chloride 0.9% flush 0.5-20 mL 0.5-20 mL, intra-catheter, Every 8 hours scheduled, First dose on Thu04/09/22 at 2200, Flush volume based on line type and size. , Indications: Flushing 2130 (Given - Provider: Kieran Allan RN) 0546 (Given - Provider: Kieran Allan RN) valACYclovir (VALTREX) tablet 500 mg 500 mg, oral, Every morning, First dose on Leny 04/10/22 at 0900, Indications: cold sore prevention 0911 (Given - Provid er: Kera Carrasco RN) Continuous Medication Order 04/08/2022 04/09/2022 04/10/2022 Lactated Ringer's (LR) infusion (CANCELED) 30 mL/hr, intravenous, Continuous, Starting on Thu04/09/22 at 0730, Pre-Op 0728 (New Bag - Provider: Mei Wright RN)0826 (Rate/Dose Verify - Provider: Gonzalez Lozano CRNA)1054 (Paused - Provider: Gonzalez Lozano CRNA - Comment: Switch to gravity)1055 (Restarted - Provider: Gonzalez Lozano CRNA)1110 (Stopped - Provider: Gonzalez Lozano CRNA) sodium chloride 0.9% infusion 100 mL/hr, intravenous, Continuous, Starting on Thu04/09/22 at 2045, Phase I & Post-op Floor, Discontinue when tolerating PO (500 mL in 8 hours). 2129 (Not Given - Provider: Kieran Allan RN - Reason: Order parameters not met) PRN Medication Order 04/08/2022 04/09/2022 04/10/2022 acetaminophen (TYLENOL) tablet 650 mg 650 mg, oral, Every 4 hours PRN, 1st line for pain, Starting on Thu04/09/22 at 1953 2131 (Not Given - Provider: Kieran Allan RN - Reason: Patient/family refused) 021 (Given - Provider: Kieran Allan RN) bisacodyL (DULCOLAX) suppository 10 mg 10 mg, rectal, Daily PRN, constipation, If no results 24 hours after polyethylene glycol (MIRALAX). May give bisacodyl tablet if tolerating PO., Starting on Thu04/09/22 at 2004, Indications: constipation bisacodyl EC (DULCOLAX EC) tablet 10 mg 10 mg, oral, Daily PRN, constipation, If no results 24 hours after polyethylene glycol (MIRALAX). May give bisacodyl supp if not tolerating PO), Starting on Thu04/09/22 at 2004, Do not crush, chew, cut, dissolve, open or otherwise manipulate tablet/capsule., Indications: constipation Carrier Fluids for Secondary Infusion - 0.9% Sodium Chloride 30 mL, intravenous, As needed, For priming tubing and/or flushing, Starting on Thu04/09/22 at 2004, 0-250 ml/hr to flush line after IV infusions when no maintenance IV ordered. Infuse 30mL at the same rate as the secondary infusion. Run as primary IV, not intended for KVO. diphenhydrAMINE (BENADRYL) injection 12.5 mg 12.5 mg, intravenous, Every 15 min PRN, itching, Starting on Thu04/09/22 at 1138, For 2 doses, Phase I, Max cumulative dose 50 mg., Indications: Itching heparin in 0.9% sodium chloride 2,000 unit/1,000 mL (2 unit/mL) infusion (premix) (COMPLETED) Continuous PRN, Starting on Thu04/09/22 at 0914, Intra-Op 0914 (New Bag - Provider: Abdiaziz Moss MD - Comment: rate at md discretion)1106 (Stopped - Provider: Brandy Abrams RN) HYDROmorphone (DILAUDID) injection 0.2 mg (CANCELED) 0.2 mg, intravenous, Administer over 2 Minutes, Every 10 min PRN, 1st line for pain, Starting on Thu04/09/22 at 1138, Phase I, Switch to 2nd line analgesic order if pain is uncontrolled or increasing after 2 doses. Notify Anesthesiologist if total PACU dose reaches 2 mg and pain score 5/10 or more., Indications: Pain 1140 (Given - Provider: Doretha Casey RN)1210 (Given - Provider: Doretha Casey RN) iodixanoL (VISIPAQUE) 320 mg iodine/mL injection (COMPLETED) As needed, Starting on Thu04/09/22 at 1104, Intra-Op 1104 (Given - Provider: Chaka Garrett MD PhD) ondansetron (ZOFRAN) injection 4 mg(Linked Group 4) 4 mg, intravenous, Administer over 2 Minutes, Every 6 hours PRN, nausea, vomiting, if not tolerating PO, Starting on Thu04/09/22 at 2004, Indications: Nausea and Vomiting ondansetron ODT (ZOFRAN-ODT) disintegrating tablet 4 mg(Linked Group 4) 4 mg, oral, Every 6 hours PRN, nausea, vomiting, Starting on Thu04/09/22 at 2004, Indications: Nausea and Vomiting polyethylene glycol (MIRALAX) packet 17 g 17 g, oral, Daily PRN, constipation, Starting on Thu04/09/22 at 2004, Indications: constipation prochlorperazine (COMPAZINE) injection 5 mg (COMPLETED) 5 mg, intravenous, Administer over 2 Minutes, Once as needed, nausea, vomiting, Starting on Thu04/09/22 at 1138, For 1 dose, Phase I, Proceed to haloperidol if no relief within 30 minutes. 1911 (Given - Provider: Charli Oleary RN) sodium chloride 0.9% flush 0.5-20 mL 0.5-20 mL, intra-catheter, As needed, line care, Starting on Thu04/09/22 at 0658, Flush volume based on line type and size. Flush before and after each use. sodium chloride 0.9% flush 0.5-20 mL 0.5-20 mL, intra-catheter, As needed, line care, Starting on Thu04/09/22 at 0704, Flush volume based on line type and size. Flush before and after each use. sodium chloride 0.9% flush 0.5-20 mL 0.5-20 mL, intra-catheter, As needed, line care, Starting on Thu04/09/22 at 2005, Flush volume based on line type and size. Flush before and after each use. , Indications: Flushing Linked Groups Order Group 1: docusate sodium (COLACE) capsule 100 mgJump to med 100 mg, oral, 2 times daily, First dose on Thu04/09/22 at 2100, If able to swallow capsules., Indications: constipation, Stool Softener Or docusate (COLACE) 10 mg/mL oral liquid 100 mgJump to med 100 mg, feeding tube, 2 times daily, First dose on Thu04/09/22 at 2100, If medications administered per tube. , Indications: constipation, Stool Softener Group 2: famotidine (PEPCID) tablet 20 mgJump to med 20 mg, oral, 2 times daily, First dose on Thu04/09/22 at 2100, Able to swallow tablets., Indications: Prevention of Stress Ulcer Or famotidine (PEPCID) 20 mg/10 mL in sterile water (premix) 20 mgJump to med 20 mg, intravenous, at 300 mL/hr, Administer over 2 Minutes, 2 times daily, First dose on Thu04/09/22 at 2100, Unable to tolerate enteral administration., Indications: Prevention of Stress Ulcer Group 3: senna (SENOKOT) tablet 1 tabletJump to med 1 tablet, oral, 2 times daily, First dose on Thu04/09/22 at 2100, If able to swallow tablets, Indications: constipation Or senna 1.76 mg/mL syrup 8.8 mgJump to med 8.8 mg, feeding tube, 2 times daily, First dose on Thu04/09/22 at 2100, If medications administered per tube., Indications: constipation Group 4: ondansetron ODT (ZOFRAN-ODT) disintegrating tablet 4 mgJump to med 4 mg, oral, Every 6 hours PRN, nausea, vomiting, Starting on Thu04/09/22 at 2004, Indications: Nausea and Vomiting Or ondansetron (ZOFRAN) injection 4 mgJump to med 4 mg, intravenous, Administer over 2 Minutes, Every 6 hours PRN, nausea, vomiting, if not tolerating PO, Starting on Thu04/09/22 at 2004, Indications: Nausea and Vomiting documented in this encounter Orders Medications Ordered That Elmo ht Not Have Been Administered Count Last Ordered Date First Ordered Date bisacodyL (DULCOLAX) suppository 10 mg 1 bisacodyl EC (DULCOLAX EC) tablet 10 mg 1 1 06/10/2021 Carrier Fluids for Secondary Infusion - 0.9% Sodium Chloride 3 04/09/2022 diphenhydrAMINE (BENADRYL) i njection 12.5 mg 1 04/09/2022 docusate (COLACE) 10 mg/mL o ral liquid 100 mg 1 04/09/2022 famotidine (PEPCID) 20 mg/10 mL in sterile water (premix) 20 mg 2 04/09/2022 haloperidol (HALDOL) injection 1 mg 1 04/09 HYDROmorphone (DILAUDID) injection 0.4 mg 1 04/09/2022 Lactated Ringer's (LR) infusion 1 meperidine (DEMEROL) preserv ative free injection 12.5 mg 1 04/09/2022 naloxone (NARCAN) 0.4 mg/mL injection 0.04-0.4 mg 1 04/09/2022 ondansetron (ZOFRAN) injection 4 mg 1 04/09 ondansetron ODT (ZOFRAN-ODT) disintegrating tablet 4 mg 1 04/09/2022 polyethylene glycol (MIRALAX) packet 17 g 1 04/09/2022 senna 1.76 mg/mL syrup 8.8 mg 1 04/09/2022 sodium chloride 0.9% flush 0.5-20 mL 3 03/14 sodium chloride 0.9% infusion 1 04/09/2022 Diet Count Last Ordered Date First Orde red Date ADULT DISCHARGE DIET 1 04/10/2022 Nursing Count Last Ordered Date First Orde red Date DISCHARGE ACTIVITY 2 04/10/2022 DISCHARGE CALL PROVIDER 2 04/10/2022 LUDWIG CATHETER - DISCONTINUE 2 04/10/2022 MEASURE POST VOID RESIDUAL 1 04/10/2022 TELEMETRY MONITORING 1 04/09/2022 WEIGH PATIENT 1 04/09/2022 Admission Count Last Ordered Date First Orde red Date ADMIT TO INPATIENT 1 04/09/2022 Transfer Count Last Ordered Date First Orde red Date TRANSFER PATIENT TO NEW UNIT 1 04/09/2022 Discharge Count Last Ordered Date First Orde red Date DISCHARGE PATIENT 1 04/10/2022 CORE MEASURES Count Last Ordered Date First Ord ered Date REASON FOR NO VTE PROPHYLAXI S - HOSPITAL ADMISSION - MEDICATIONS 1 04/09/2022 documented in this encounter Care Teams Promotions Director Relationship Specialty Start Date End Date Sylvia Dawson PA [address] [place] [address] PCP - General Internal Medicine 01/05/20 Erica Rodrigues MD [address] [place] [address] Radiation Oncologist Radiation Oncology 10/25/18 Gasper Kaba MD [address] [place] [address] Surgeon Surgical Oncology 10/25/18 Brandy Aguirre CNS [address] [place] [address] Nurse Practitioner Certified Clinical Nurse Specialist 10/25/18 Jo-Ann Morrow, PhD [address] [place] [address] Nurse Practitioner Radiation Oncology 10/25/18 Christina Louis PROFESSOR OF COMMUNICATION [address] [place] [address] Nurse Practitioner Medical Oncology 10/25/18 documented as of this encounter
--- OUTSIDE RECORDS SUMMARY | 2024-04-24 05:52 | XMS_ITS | Encounter Summary ---
Author Organization [facility] Address [address] [place] [address] Phone Care Team Providers Care Intelligence Chief Name Role Phone Erica Rodrigues MD Unavailable Gasper Kaba MD Unavailable [phone] Brandy Aguirre RN HEART Unavailable [phone] Jo-Ann Morrow PhD Unavailable [phone] Christina Louis LINER INSERTER Unavailable [phone] Sylvia Dawson Primary Care Provider [phone] Reason for Referral * Diagnostic Imaging (Routine) - Closed Specialty Diagnoses / Procedures Referred By Contac t Referred To Contact Diagnoses Cystoid macular edema of both eyes Procedures OCT, Retina - OU - Both Eyes Thomas Hinojosa DO Phone: tel: fax: [facility] (All Locations) Referral ID Status Reason Start Date Expiration Date Visits Re quested Visits Authorized [id number] Closed 03/12/2022 04/11/2023 1 1 R CASHIER Reason for Visit * Reason Comments Cystoid macular edema of both eyes Encounter Details Date Type Department Care Team (Late st Contact Info) Description 03/12/2022 8:00 AM FLOOR CASHIER Office Visit [facility] Ophthalmology 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 Not on file Not on file Not on file documented as of this encounter Ordered Prescriptions Prescription Sig Dispense Quantity Refills Last Filled Start Date End Date dorzolamide (TRUSOPT) 2 % ophthalmic solutionIndication s:Cystoid macular edema of both eyes Administer 1 drop into the left eye 3 (three) times a day 10 mL 11 03/12/2022 3 documented in this encounter Progress Notes * Jessy Adame MD - 03/12/2022 8:00 AM CST ASSESSMENT/ORDERS/PROCEDURES PERFORMED TODAY Chief Complaint Patient presents with Cystoid macular edema of both eyes HPI 2 wk f/u- CME OU, s/p PPV/EXCHANGE - AIR/FLUID OS (02/11/2022) Patient states VA stable, still blurry and still having occasional eye pain which has improved on intensity and frequent. Denies FOL and floaters. Last edited by Renetta Carlson COA on 03/12/2022 8:07 AM. Assessment/Plan Diagnoses and all orders for this visit: Cystoid macular edema of both eyes (Primary) Assessment & Plan: She is happy with the lack of floaters in the left eye, her vision is still blurry in the left eye.OCT demonstrates much improved macular edema left eye after being on durezol qid left eye (OS). Pain has improved after removing of the filament. Given that intraocular pressure (IOP) is increasing left eye (OS), will add trusopt left eye (OS) TID. Will keep patient on durezol qid left eye (OS) and will consider taper at f/u in 2 weeks. . Continue PFAT Orders: - OCT, Retina - OU - Both Eyes - dorzolamide (TRUSOPT) 2 % ophthalmic solution; Administer 1 drop into the left eye 3 (three) times a day OCT, Retina - OU - Both Eyes Right Eye Quality was good. Scan locations included subfoveal. Progression has been stable. Findings include abnormal foveal contour, lamellar hole. Left Eye Quality was good. Progression has improved. Findings include intraretinal fluid. Notes Left eye (OS): much improved IRF. The signs and symptoms of retinal detachment, tears, infection, elevated intra- ocular pressure werereviewed with the patient. Patient knows to call should they have any of the symptoms. PLAN FOR NEXT VISIT Follow-up and Dispositions Return in about 2 weeks (around 03/26/2022) for Dilated exam OU, OCT OU. I have examined the patient, reviewed and edited the chart as needed, and discussed the findings, diagnosis and plan with the resident. I agree with the findings, diagnosis, plan that we have createdand documented. Jessy Adame MD R CASHIER documented in this encounter Miscellaneous Notes * Assessment & Plan Note - Thomas Hinojosa DO - 03/12/2022 9:01 AM CSTAssociated Problem(s): Cystoid macular edema of both eyes She is happy with the lack of floaters in the left eye, her vision is still blurry in the left eye.OCT demonstrates much improved macular edema left eye after being on durezol qid left eye (OS). Pain has improved after removing of the filament. Given that intraocular pressure (IOP) is increasing left eye (OS), will add trusopt left eye (OS) TID. Will keep patient on durezol qid left eye (OS) and will consider taper at f/u in 2 weeks. . Continue PFAT R CASHIER R CASHIER documented in this encounter Plan of Treatment Not on file documented as of this encounter Procedures Procedure Name Priority Date/Time Associated Diagnosis Comments OCT, RETINA - OU - BOTH EYES Routine 03/12/2022 9:07 AM FLOOR CASHIER Cystoid macular edema of both eyes documented in this encounter Results * OCT, Retina - OU - Both Eyes (03/12/2022 9:07 AM FLOOR CASHIER) Anatomical Region Laterality Modality Head Optical Coherenc e Tomography Narrative 03/12/2022 9:07 AM FLOOR CASHIER Right Eye Quality was good. Scan locations included subfoveal. Progression has been stable. Findings include abnormal foveal contour, lamellar hole. Left Eye Quality was good. Progression has improved. Findings include intraretinal fluid. Notes Left eye (OS): much improved IRF. Thomas Hinojosa DO OPHTH TOMOGRAPHY Final Result documented in this encounter Visit Diagnoses Diagnosis Cystoid macular edema of both eyes- Primary Cystoid macular degeneration of retina documented in this encounter Eye Exam Visual Acuity (Snellen - Linear) Right eye Left eye Dist sc 20/20 20/40 -1 Dist ph sc 20/30 -1 Tonometry (Tonopen, 8:24 AM) Right eye Left eye Pressure 14 27 Pupils Dark Light Shape React APD Right eye 6 5 Round Brisk None Left eye 6 5 Round Brisk None Visual Grossman Right eye Left eye Full Full Extraocular Movement Right eye Left eye Full Full Neuro/Psych Oriented x3: Yes Mood/Affect: Normal Dilation Both eyes: 1.0% Mydriacyl @ 8:25 AM External Exam Right eye Left eye External Normal Slit Lamp Exam Right eye Left eye Lids/Lashes Normal Normal Conjunctiva/Sclera White and quiet White and gael et Cornea CleaR CleaR Anterior Chamber Deep and quiet Deep and quiet Iris Round and reactive Round and erasmo ctive Lens PCIOL, open capsule PCIOL, open capsule Fundus Exam Right eye Left eye Posterior Vitreous VIT SYN avitretic, ai r resolved Disc Normal Normal C/D Ratio 0.4 0.4 Macula Normal Normal Vessels Normal Normal Periphery Vit syn Attached 360 Care Teams Intelligence Chief Relationship Specialty Start Date End Date Sylvia Dawson PA [address] [place], [place] [id number] PCP - General Internal Medicine 01/05/20 Erica Rodrigues MD [address] [facility] [address] [place] [address] Radiation Oncologist Radiation Oncology 10/25/18 Gasper Kaba MD [address] [facility] [address] [place] [address] Surgeon Surgical Oncology 10/25/18 Brandy Aguirre, RN HEART [address] [facility] [address] [place] [address] Nurse Practitioner Certified Clinical Nurse Specialist 10/25/18 Jo-Ann Morrow, PhD [address] [facility] [address] [place] [address] Nurse Practitioner Radiation Oncology 10/25/18 Christina Louis, LINER INSERTER [address] [facility] [address] [place] [address] Nurse Practitioner Medical Oncology 10/25/18 documented as of this encounter
--- OUTSIDE RECORDS SUMMARY | 2024-04-24 05:52 | XMS_ITS | Encounter Summary ---
Author Organization [facility] Address [address] [place] [address] Phone Care Team Providers Care Line Supervisor Name Role Phone Erica Rodrigues MD Unavailable Gasper Kaba MD Unavailable Brandy Aguirre COMPUTER SCIENCE INTERN Unavailable [phone] Jo-Ann Morrow PhD Unavailable [phone] Christina Louis BAND TUMBLER Unavailable [phone] Sylvia Dawson Primary Care Provider [phone] Reason for Referral * Diagnostic Imaging (Routine) - Closed Specialty Diagnoses / Procedures Referred By Contac t Referred To Contact Diagnoses History of right breast cancer Procedures Screening Mammogram Bilateral W Iliana Zamudio NP Phone: tel: fax: [facility] [address] [place] [address] Referral ID Status Reason Start Date Expiration Date Visits Re quested Visits Authorized [id number] Closed 02/04/2022 03/06/2023 1 1 Encounter Details Date Type Department Care Team (Late st Contact Info) Description 02/04/2022 Orders Only [facility] Surgery [address] [facility] 5th [place] [address] [place] [address] Iliana Erazo, BAND TUMBLER [address] 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 ATLAS category (overall): 2 - Benign There is no mammographic evidence of malignancy. A 1 year screening mammogram is recommended. The patient has been or will be contacted. We recommend annual screening mammography for women at average risk of breast cancer beginning at age 40, based on guidelines of the [employer] (ACR Practice Parameter for the Performance of Screening and Diagnostic Mammography) and [employer]. For women with and elevated risk of breast cancer, please refer to the ACR Practice Parameter for specific screening recommendations. The patient will be entered into a reminder system with a target due date of 1 year for her next screening exam. Narrative 04/01/2022 12:51 PM HEALTHCARE OR MEDICAL Screening Mammogram Bilateral W Marcelo: 04/01/22 The [...] There has been no suspicious change. Iliana Erazo BAND TUMBLER IMG MAMMO PROCEDURES Final Result documented in this encounter Visit Diagnoses Diagnosis History of right breast cancer- Primary History of right breast cancer documented in this encounter Care Teams Line Supervisor Relationship Specialty Start Date End Date Sylvia Dawson PA [address] [place] [address] PCP - General Internal Medicine 01/05/20 Erica Rodrigues MD [address] [facility] [address] [place] [address] Radiation Oncologist Radiation Oncology 10/25/18 Gasper Kaba MD [address] [facility] [address] [place] [address] Surgeon Surgical Oncology 10/25/18 Brandy Aguirre CNS [address] [facility] [address] [place] [address] Nurse Practitioner Certified Clinical Nurse Specialist 10/25/18 Jo-Ann Morrow, PhD [address] [facility] [address] [place] [address] Nurse Practitioner Radiation Oncology 10/25/18 Christina Louis, BAND TUMBLER [address] [facility] [address] [place] [address] Nurse Practitioner Medical Oncology 10/25/18 documented as of this encounter
--- OUTSIDE RECORDS SUMMARY | 2024-04-24 05:52 | XMS_ITS | Encounter Summary ---
Author Organization [facility] Address [address] [facility] [address] [place] [address] Care Team Providers Care Learning Coordinator Name Role Phone Erica Rodrigues MD Unavailable Gasper Kaba MD Unavailable Brandy Aguirre Unavailable [phone] Jo-Ann Morrow PhD Unavailable [phone] Christina Louis WOMEN'S GARMENT FITTER Unavailable [phone] Sylvia Dawson Primary Care Provider [phone] Reason for Referral * Sleep Medicine (Routine) - Closed Specialty Diagnoses / Procedures Referred By Conternestina t Referred To Contact Diagnoses Daytime sleepiness Snoring Procedures Portable/Home Sleep Study Meme Kraft NP [address] [facility] [address] [address] Phone: tel: fax: [facility] [address] [place] [address] Phone: tel: fax: Referral ID Status Reason Start Date Expiration Date Visits Re quested Visits Authorized [id number] Closed 03/20/2022 05/18/2022 1 1 ER SODA Reason for Visit * Consultation (Routine) - Closed Specialty Diagnoses / Procedures Referred By Contac t Referred To Contact Sleep Medicine / Pulmonology Diagnoses Daytime sleepiness Sylvia Dawson, KAREN [address] [place] [address] Phone: tel: fax: Douglas Acosta MD [address] [facility] [address] [place] [address] Phone: tel: fax: Referral ID Status Reason Start Date Expiration Date V isits Requested Visits Authorized [id number] Closed Specialty Services Required 02/27/2022 03/29/2023 1 1 Encounter Details Date Type Department Care Team (Late st Contact Info) Description 03/20/2022 11:30 AM COOKER SODA Office Visit [facility] Pulmonary [address] [place] [address] Meme Kraft NP [address] [facility] [address] [place] [address] Snoring (Primary Dx); Daytime sleepiness Social History Tobacco Use Types Packs/Day Years [...] on file Legal Sex Female 3:42 AM COOKER SODA Gender Identity Not on file Sexual Orientation Not on file 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 Not on file Not on file documented as of this encounter Last Filed Vital Signs Vital Sign Reading Time Taken Comments Blood Pressure 122/78 03/20/2022 11:17 AM COOKER SODA Pulse 63 03/20/2022 11:17 AM COOKER SODA Temperature 36.1 ??C (97 ??F) 03/20/2022 11:17 AM COOKER SODA Respiratory Rate 18 03/20/2022 11:17 AM COOKER SODA Oxygen Saturation 97% 03/20/2022 11:17 AM COOKER SODA Inhaled Oxygen Concentration - - Weight 64 kg (141 lb) 03/20/2022 11:17 AM COOKER SODA Height 160 cm (5' 3 ) 03/20/2022 11:17 AM COOKER SODA Body Mass Index 24.98 03/20/2022 11:17 AM COOKER SODA documented in this encounter Progress Notes * Meme Kraft, WOMEN'S GARMENT FITTER - 03/20/2022 11:30 AM CST Images from the original note were not included. Patient ID: Yesika Denney is a 61 y.o. female. HPI. Patient is a 61 y.o. female that was referred here by Sylvia Dawson for hypersomnia and snoring. Patient goes to bed in between nine and 930 at night and does wake up in between 730 and 8:00 a.m. in the morning. The patient will have occasional awakenings with occasional nocturia noted. The patient has been noted to snore and have apneic events. The patient states that she will occasionally wake herself up snoring but feels like it is more related to nasal congestion. The patient does occasionally wake herself up gasping. The patient does have some dry mouth and headaches depending onthe weather. The patient is occasionally tired during the day and will fall asleep in quiet situation. She denies falling asleep while driving. The patient denies any restlessness in her limbs but does have occasional cramping. The patient does have a father with obstructive sleep apnea and a daughter with narcolepsy. The patient's Dyer score is two. The patient did express that she does have some sleep paralysis and also hypnagogic hallucination. The patient states that the hallucinations ar e more during travel and after. No chief complaint on file. Past Medical History: Diagnosis Date Autoimmune disease [...] Demetris Aguilar TONSILLECTOMY 1983 TUBAL LIGATION 02/2007 Allergies Allergen Reactions Adhesive Hives Paper tape [...] Stroke Paternal Grandmother Anesthesia problems Neg Hx Current Medications: Outpatient Encounter Medications as of 03/20/2022 Medication Sig Dispense Refill aspirin 325 mg enteric coated tablet Take 1 tablet (325 mg total) by mouth daily 30 tablet 11 atenoloL (TENORMIN) 25 mg tablet TAKE 1 TABLET(25 MG) BY MOUTH DAILY 90 tablet 1 rncjexkixc-qsacejhhkohxz-iclnekxm-codeine (FIORICET WITH CODEINE) 14-296-04-30 mg per capsule Take 1 capsule by mouth every 4 (four) hours as needed for headaches 20 capsule 0 calcium carbonate/vitamin D3 (CALTRATE 600 PLUS D ORAL) Take 1 tablet by mouth every morning clopidogreL (PLAVIX) 75 mg tablet Take 1 tablet (75 mg total) by mouth daily 30 tablet 11 coenzyme Q10 200 mg capsule Take 1 capsule (200 mg total) by mouth every morning difluprednate (DUREZOL) 0.05 % drops Administer 1 drop into the left eye 4 (four) times a day 10 mL11 dorzolamide (TRUSOPT) 2 % ophthalmic solution Administer [...] total) by mouth daily 90 tablet 1 methotrexate 2.5 mg tablet TAKE 8 TABLETS BY MOUTH ONCE A WEEK DIRECTED 96 tablet 0 multivitamin with minerals tablet [...] total) by mouth daily 90 tablet 2 vit S-G-cfiphy-zinc-lutein (PreserVision Lutein) 226-90-0.8-5 mg capsule Take 1 tablet by mouth every morning zinc 50 mg tablet Take 50 mg by mouth every morning No facility-administered encounter medications on file as of 03/20/2022. Review of Systems Constitutional: Negative for fever. HENT: Negative for tinnitus. Eyes: Negative for visual disturbance. Respiratory: Negative for cough, shortness of breath and wheezing. Cardiovascular: Negative for chest pain. Gastrointestinal: Negative for diarrhea, nausea and vomiting. Skin: Negative for rash. Neurological: Negative for dizziness. BP 122/78 Pulse 63 Temp 36.1 ??C (97 ??F) Resp 18 Ht 160 cm (5' 3 ) Wt 64 kg (141 lb) LMP (LMP Unknown) SpO2 97% BMI 24.98 kg/m?? Physical Exam Constitutional: General: She is not in acute distress. HENT: Mouth/Throat: Pharynx: No oropharyngeal exudate. Eyes: Pupils: Pupils are equal, round, and reactive to light. Cardiovascular: Rate and Rhythm: Normal rate and regular rhythm. Pulmonary: Effort: Pulmonary effort is normal. Breath sounds: Normal breath sounds. No wheezing. Abdominal: Palpations: Abdomen is soft. Musculoskeletal: Cervical back: Normal range of motion. Imaging: IR Angio Selective Internal Carotid Left Result Date: 03/14/2022 Broad necked anterior communicating artery aneurysm measuring [...] it. Electronically signed by: Abdiaziz Moss M.D. Assessment & Plan: Diagnoses and all orders for this visit: Snoring (Primary) Assessment & Plan: I have ordered in-home nocturnal polysomnogram per the patient's insurance. The patient would like to hold off on an in-lab PSG with MSLT at this time. Orders: - Portable/Home Sleep Study; Future Daytime sleepiness - Ambulatory referral to Sleep Medicine - Portable/Home Sleep Study; Future Return in about 3 months (around 06/18/2022). Meme Kraft NP ER SODA documented in this encounter Miscellaneous Notes * Assessment & Plan Note - Meme Kraft NP - 03/20/2022 11:59 AM COOKER SODA Associated Problem(s): Snoring (Resolved 06/19/2022) I have ordered in-home nocturnal polysomnogram per the patient's insurance. The patient would like to hold off on an in-lab PSG with MSLT at this time. ER SODA documented in this encounter Plan of Treatment Not on file documented as of this encounter Results * Portable/Home Sleep Study (05/06/2022 10:00 AM COOKER SODA) us Meme Kraft [facility]OMEN'S GARMENT [facility] ORDERABLES Final Result [facility] SLEEP MEDICINE [facility] [address] documented in this encounter Visit Diagnoses Diagnosis Snoring- Primary Other dyspnea and respiratory abnormality Daytime sleepiness documented in this encounter Orders Outpatient Referral Count Last Ordered Date Fir st Ordered Date AMB REFERRAL TO SLEEP MEDICINE 1 03/20/2022 documented in this encounter Care Teams Learning Coordinator Relationship Specialty Start Date End Date Sylvia Dawson PA [address] [facility] [address] [facility] [address] [place] [address] PCP - General Internal Medicine 01/05/20 Erica Rodrigues MD [address] [place] [address] Radiation Oncologist Radiation Oncology 10/25/18 Gasper Kaba MD [address] [place] [address] Surgeon Surgical Oncology 10/25/18 Brandy Aguirre, CARINA [address] [place] [address] Nurse Practitioner Certified Clinical Nurse Specialist 10/25/18 Jo-Ann Morrow, PhD [address] [place] [address] Nurse Practitioner Radiation Oncology 10/25/18 Christina Louis NP [address] [place] [address] Nurse Practitioner Medical Oncology 10/25/18 documented as of this encounter
--- OUTSIDE RECORDS SUMMARY | 2024-04-24 05:52 | XMS_ITS | Encounter Summary ---
Author Organization [facility] Address [address] [place] [address] Care Team Providers Care Turning Sander Tender Name Role Phone Erica Rodrigues MD Unavailable Gasper Kaba MD Unavailable Brandy Aguirre BLADE BONER Unavailable [phone] Jo-Ann Morrow PhD Unavailable [phone] Christina Louis JUMP ROLL OPERATOR Unavailable [phone] Sylvia Dawson Primary Care Provider [phone] Encounter Details Date Type Department Care Team (Late st Contact Info) Description 03/17/2022 Telephone [facility] Neuro Interventional Radiology [address] [place] [address] Dian Rosa Social History Tobacco Use Types Packs/Day Years [...] on file Legal Sex Female 3:42 AM COORDINATOR OF HEALTH SERVICES Gender Identity Not on file Sexual Orientation Not on file 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 Moss. While talking with her she mentioned that she has been having right jaw and neck pain since her angiogram last week and is also having a swishing noise in her right ear now. I notified Lizzie Green and Dr. Moss about this. Dian DINATOR OF HEALTH SERVICES documented in this encounter Plan of Treatment Not on file documented as of this encounter Visit Diagnoses Not on filedocumented in this encounter Care Teams Turning Sander Tender Relationship Specialty Start Date End Date Sylvia Dawson PA [address] [place] [id number] PCP - General Internal Medicine 01/05/20 Erica Rodrigues MD [address] [facility] [address] [place] [address] Radiation Oncologist Radiation Oncology 10/25/18 Gasper Kaba MD [address] [facility] [address] [place] [address] Surgeon Surgical Oncology 10/25/18 Brandy Aguirre CNS [address] [facility] [address] [place] [address] Nurse Practitioner Certified Clinical Nurse Specialist 10/25/18 Jo-Ann Morrow, PhD [address] [facility] [address] [place] [address] Nurse Practitioner Radiation Oncology 10/25/18 Christina Louis, JUMP ROLL OPERATOR [address] [facility] [address] [place] [address] Nurse Practitioner Medical Oncology 10/25/18 documented as of this encounter
--- OUTSIDE RECORDS SUMMARY | 2024-04-24 05:52 | XMS_ITS | Encounter Summary ---
Author Organization [facility] Address [address] [place] [address] Phone Care Team Providers Care Foot Piece Assembler Name Role Phone Erica Rodrigues MD Unavailable Gasper Kaba MD Unavailable Brandy Aguirre DIRECTOR OF SLOT OPERATIONS Unavailable Jo-Ann Morrow PhD Unavailable [phone] Christina Louis STOCK PREPARATION SUPERVISOR Unavailable [phone] Sylvia Dawson Primary Care Provider [phone] Encounter Details Date Type Department Care Team (Late st Contact Info) Description 02/10/2022 1:15 PM CDT Office Visit [facility] Neurosurgery [address] [facility] Building [address] [place] [address] Lizzie Green, JENNI [address] [place] [address] Cerebral aneurysm, nonruptured (Primary Dx) Social History [...] Legal Sex Female 3:42 AM DIRECTOR OF PERSONNEL Gender Identity Not on file Sexual Orientation Not on file 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 Not on file Not on file Not on file documented as of this encounter Last Filed Vital Signs Vital Sign Reading Time Taken Comments Blood Pressure 131/85 02/10/2022 1:28 PM CDT Pulse 70 02/10/2022 1:28 PM CDT Temperature - - Respiratory Rate - - Oxygen Saturation - - Inhaled Oxygen Concentration - - Weight 63.5 kg (140 lb) 02/10/2022 1:28 PM CDT Height 160 cm (5' 3 ) 02/10/2022 1:28 PM CDT Body Mass Index 24.8 02/10/2022 1:28 PM CDT documented in this encounter Progress Notes * Lizzie Green, JENNI - 02/10/2022 1:15 PM CDT RETURN VISIT Subjective HISTORY OF PRESENT ILLNESS Yesika Denney is a pleasant 61 y.o. female who was diagnosed with an anterior communicating artery aneurysm in 2010. This was found incidentally. At that time, the patient underwent a cerebral angiogram and this showed evidence of a 3.9 x 2.6 mm round aneurysm. She is been treated conservatively with serial imaging and was last seen in 2019 where her aneurysm was stable. The patient presents for a 3 year follow-up. Today, the patient states that her headaches are stable. For most of her adult life she experiencedhormonal headaches. These have decreased as she is gotten older. She now experiences headaches withweather changes. These are the worst in the spring and fall. She currently uses Fioricet with codeine with severe headaches. This improves her symptoms.Yesika Denney had complications from a cataract surgery earlier this year. She is scheduled for a Vitrectomy tomorrow with Dr. Adame. She denies any seizures, balance difficulties, speech difficulties, memory deficits. The patient has fallen a couple times and contributes this to her clumsiness. VITAL SIGNS BP 131/85 Pulse 70 Ht 160 cm (5' 3 ) Wt 63.5 kg (140 lb) LMP (LMP Unknown) BMI 24.80 kg/m?? ALLERGIES She is allergic to adhesive, adhesive tape-silicones, and cyclizine. MEDICATIONS Current Outpatient Medications: aspirin 81 mg enteric coated tablet, Take 81 mg by mouth 2 (two) times a week and Thu, Disp: ,Rfl: atenoloL (TENORMIN) 25 mg tablet, TAKE 1 TABLET(25 MG) BY MOUTH DAILY (Patient taking differently: Take 25 mg by mouth every morning), Disp: 90 tablet, Rfl: 1 calcium carbonate/vitamin D3 (CALTRATE 600 PLUS D ORAL), Take 1 tablet by mouth every morning, Disp: , Rfl: coenzyme Q10 200 mg capsule, Take 200 mg by mouth every morning, Disp: , Rfl: FLUoxetine (PROzac) 20 mg capsule, Take 1 capsule (20 mg total) by mouth 2 (two) times a day (Patient taking differently: Take 20 mg by mouth 2 (two) times a day), Disp: 180 capsule, Rfl: 1 folic acid [...] Disp: 90 tablet, Rfl: 2 lisinopriL (PRINIVIL,ZESTRIL) 40 mg tablet, TAKE 1 TABLET DAILY, Disp: 90 tablet, Rfl: 1 methotrexate 2.5 mg tablet, TAKE 8 TABLETS BY MOUTH ONCE A WEEK DIRECTED (Patient taking differently: Take 20 mg by mouth every 7 days (8 tablets) ), Disp: 96 tablet, Rfl: 0 multivitamin with minerals tablet, Take 1 tablet by mouth every morning, Disp: , Rfl: sulfaSALAzine EN (AZULFIDINE EN) 500 mg EC tablet, TAKE 2 TABLETS TWO TIMES A DAY (Patient taking differently: Take 1,000 mg by mouth 2 (two) times a day), Disp: 360 tablet, Rfl: 1 turmeric root extract 500 mg capsule, Take 500 mg by mouth every morning, Disp: , Rfl: valACYclovir (Valtrex) 500 mg tablet, Take 1 tablet (500 mg total) by mouth daily (Patient taking differently: Take 500 mg by mouth every morning), Disp: 90 tablet, Rfl: 2 vit H-K-brehxf-zinc-lutein (PreserVision Lutein) 226-90-0.8-5 mg capsule, Take 1 tablet by mouth every morning, Disp: , Rfl: zinc 50 mg tablet, Take 50 mg by mouth every morning, Disp: , Rfl: Objective PHYSICAL EXAM The patient is awake, alert and in no apparent distress. Cranial nerves II-XII are grossly intact, no pronator drift. The patient has 5/5 strength in the right deltoids, biceps, triceps, banking pin adjuster, and intrinsic hand muscles and 5/5 in the left deltoids, biceps, triceps, banking pin adjuster, and intrinsic hand muscles. The patient has 5/5 strength in the right iliopsoas, quads, hamstrings, gastrocnemius/soleus, anterior tibials, and extensor hallucis longus and 5/5 in the left iliopsoas, quads, hamstrings, gastrocnemius/soleus, anterior tibialis, and extensor hallucis longus. Her gait is stable. The patient is able to heel, toe walk and perform tandem gait. REVIEW OF IMAGING MRA Head W WO Contrast Narrative: EXAMINATION: Magnetic resonance imaging (MRI) of the brain and brainstem without and with contrast Magnetic resonance angiography (MRA) of the yyegon-at-Ruusjt without and with contrast HISTORY: Patient is a 61-year-old female who presents for follow-up of anterior communicating artery aneurysm. TECHNIQUE: Multiplanar multi-weighted MRI of the brain and brainstem was performed without and with intravenous contrast using the general brain protocol. Magnetic resonance angiography of the pllmdz-xx-Zmwwno was performed using separate data set acquisitions including a non-contrast lpsr-ni-opbbxa technique and a post-contrast technique to produce [...] are no areas of atherosclerotic narrowing. The yaazmy-ao-Klyogu is complete. There is a bilobed superiorly [...] There is no evidence of vascular malformation. Impression: 1. No acute intracranial process. 2. Superiorly directed anterior communicating artery aneurysm, measuring 5 mm, unchanged. Electronically signed by: Hudson Phillips M.D. MRI Brain W WO Contrast Narrative: EXAMINATION: Magnetic resonance imaging (MRI) of the brain and brainstem without and with contrast Magnetic resonance angiography (MRA) of the wklmjl-ix-Xsuojt without and with contrast HISTORY: Patient is a 61-year-old female who presents for follow-up of anterior communicating artery aneurysm. TECHNIQUE: Multiplanar multi-weighted MRI of the brain and brainstem was performed without and with intravenous contrast using the general brain protocol. Magnetic resonance angiography of the cduecf-pu-Xuaxtf was performed using separate data set acquisitions including a non-contrast puxs-qe-jdlmac technique and a post-contrast technique to produce [...] are no areas of atherosclerotic narrowing. The tovfaj-dc-Tnqgqf is complete. There is a bilobed superiorly [...] There is no evidence of vascular malformation. Impression: 1. No acute intracranial process. 2. Superiorly directed anterior communicating artery aneurysm, measuring 5 mm, unchanged. Electronically signed by: Hudson Phillips M.D. Assessment/Plan ASSESSMENT Encounter Diagnosis Name Primary? Cerebral aneurysm, nonruptured Yes PLAN I had a discussion with Yesika Denney and her spouse regarding imaging and current complaints. When comparing the patient's current MRA to her MRA in 2014, I do see an increase in size in her A-comm aneurysm. I have discussed this with Dr. Moss and we would like to proceed with a repeat diagnostic angiogram to further assess her aneurysm. The patient will be set up for this and will be contacted with the details. I have asked Yesika Denney to contact the office with any new or worsening symptoms, questions or concerns in the interim. Lizzie Green NP documented in this encounter Plan of Treatment Not on file documented as of this encounter Visit Diagnoses Diagnosis Cerebral aneurysm, nonruptured- Primary documented in this encounter Care Teams Foot Piece Assembler Relationship Specialty Start Date End Date Sylvia Dawson PA [address] [place] [address] PCP - General Internal Medicine 01/05/20 Erica Rodrigues MD [address] [place] [address] Radiation Oncologist Radiation Oncology 10/25/18 Gasper Kaba MD [address] [place] [address] Surgeon Surgical Oncology 10/25/18 Brandy Aguirre, DIRECTOR OF SLOT OPERATIONS [address] [place] [address] Nurse Practitioner Certified Clinical Nurse Specialist 10/25/18 Jo-Ann Morrow, PhD [address] [place] [address] Nurse Practitioner Radiation Oncology 10/25/18 Christina Louis NP [address] [place] [address] Nurse Practitioner Medical Oncology 10/25/18 documented as of this encounter
--- OUTSIDE RECORDS SUMMARY | 2024-04-24 05:52 | XMS_ITS | Encounter Summary ---
Author Organization [facility] [employer] [facility] Address [address] [place] [address] Phone Care Team Providers Care Sales Consultant Insurance Name Role Phone Erica Rodrigues MD Unavailable Gasper Kaba MD Unavailable Brandy Aguirre SENIOR TECHNICAL PROJECT MANAGER Unavailable [phone] Jo-Ann Morrow PhD Unavailable [phone] Christina Louis RIB MATCHER AND FITTER Unavailable [phone] Sylvia Dawson Primary Care Provider [phone] Reason for Referral * Diagnostic Imaging (Routine) - Closed Specialty Diagnoses / Procedures Referred By Contac t Referred To Contact Diagnoses Cystoid macular edema of both eyes Procedures OCT, Retina - OU - Both Eyes Jessy Adame MD [address] [facility] [address] [place] [address] Phone: tel: fax: [facility] (All Locations) Referral ID Status Reason Start Date Expiration Date Visits Re quested Visits Authorized [id number] Closed 02/26/2022 03/28/2023 1 1 LINER Reason for Visit * Reason Comments Post-op Encounter Details Date Type Department Care Team (Late st Contact Info) Description 02/26/2022 8:00 AM DOOR LINER Office Visit [facility] Ophthalmology [address] 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 Comments 2 week s/p PPV/EXCHANGE - AIR/FLUID OS (02/11/2022) PT c/o occasional glow temporal OS on and off over the last week. Also notes episodic dark floater superior VA. Denies ocular pain or discomfort Pt also c/o glare from lights OU Ocular meds: PF QID OS AT prn Last edited by Malorie Perez COA on 02/26/2022 8:00 AM. Assessment/Plan Diagnoses and all orders for this visit: Cystoid macular edema of both eyes (Primary) Assessment & Plan: She is happy with the lack of floaters in the left eye, her vision is still blurry in the left eye.OCT demonstrates worsening macular edema left eye. Pain has improved after removing of the filament. I have asked that she change the Pred Forte to Durezol 4 times a day in the left eye. She is no longer on eyedrops in the right eye. She is no longer on tobramycin drops in the left eye. Continue PFAT Orders: - OCT, Retina - OU - Both Eyes - difluprednate (DUREZOL) 0.05 % drops; Administer 1 drop into the left eye 4 (four) times a day OCT, Retina - OU - Both Eyes Right Eye Quality was good. Scan locations included subfoveal. Progression has been stable. Findings include abnormal foveal contour, lamellar hole. Left Eye Quality was good. Progression has worsened. Findings include intraretinal fluid. The signs and symptoms of retinal detachment, tears, infection, elevated intra- ocular pressure werereviewed with the patient. Patient knows to call should they have any of the symptoms. PLAN FOR NEXT VISIT Follow-up and Dispositions Return in about 2 weeks (around 03/12/2022) for Dilated exam OU, OCT OU. LINER documented in this encounter Miscellaneous Notes * Assessment & Plan Note - Jessy Adame MD - 02/26/2022 8:51 AM DOOR LINER Associated Problem(s): Cystoid macular edema of both eyes She is happy with the lack of floaters in the left eye, her vision is still blurry in the left eye.OCT demonstrates worsening macular edema left eye. Pain has improved after removing of the filament. I have asked that she change the Pred Forte to Durezol 4 times a day in the left eye. She is no longer on eyedrops in the right eye. She is no longer on tobramycin drops in the left eye. Continue PFAT LINER LINER documented in this encounter Plan of Treatment Not on file documented as of this encounter Procedures Procedure Name Priority Date/Time Associated Diagnosis Comments OCT, RETINA - OU - BOTH EYES Routine 02/26/2022 8:51 AM DOOR LINER Cystoid macular edema of both eyes documented in this encounter Results * OCT, Retina - OU - Both Eyes (02/26/2022 8:51 AM DOOR LINER) Anatomical Region Laterality Modality Head Optical Coherenc e Tomography Narrative 02/26/2022 8:51 AM DOOR LINER Right Eye Quality was good. Scan locations included subfoveal. Progression has been stable. Findings include abnormal foveal contour, lamellar hole. Left Eye Quality was good. Progression has worsened. Findings include intraretinal fluid. Jessy Adame MD OPHTH TOMOGRAPHY Final Res ult documented in this encounter Visit Diagnoses Diagnosis Cystoid macular edema of both eyes- Primary Cystoid macular degeneration of retina documented in this encounter Discontinued Medications Medication Sig Discontinue Reason Start Date End Da te prednisoLONE acetate (PRED FORTE) 1 % ophthalmic suspensionIndications: Cystoid macular edema of both eyes Administer 1 drop into the left eye 4 (four) times a day One drop, 4x/day for 1 week,3x/day for 1 week,2x/day for 1 week,1x/day for week,then stop. Left Eye. Alternate therapy 02/19/2022 02/26/2022 documented as of this encounter Eye Exam Visual Acuity (Snellen - Linear) Right eye Left eye Dist sc 20/20 -1 20/70 -2 Dist ph sc 20/50 -1 Tonometry (Tonopen, 8:08 AM) Right eye Left eye Pressure 21 22 Pupils Pupils Dark Light Shape React APD Right eye PERRL 5 4.5 Round Brisk None Left eye PERRL 5 4.5 Round Brisk None Neuro/Psych Oriented x3: Yes Mood/Affect: Normal Dilation Both eyes: 1.0% Mydriacyl @ 8:08 AM External Exam Right eye Left eye [...] Periphery Vit syn Attached 360 Care Teams Sales Consultant Insurance Relationship Specialty Start Date End Date Sylvia Dawosn PA [address] [place] [address] PCP - General Internal Medicine 01/05/20 Erica Rodrigues MD [address] [facility] [address] [place] [address] Radiation Oncologist Radiation Oncology 10/25/18 Gasper Kaba MD [address] [facility] [address] [place] [address] Surgeon Surgical Oncology 10/25/18 Brandy Aguirre, SENIOR TECHNICAL PROJECT MANAGER [address] [facility] [address] [place] [address] Nurse Practitioner Certified Clinical Nurse Specialist 10/25/18 Jo-Ann Morrow, PhD [address] [facility] [address] [place] [address] Nurse Practitioner Radiation Oncology 10/25/18 Christina Louis NP [address] [facility] [address] [place] [address] Nurse Practitioner Medical Oncology 10/25/18 documented as of this encounter
--- OUTSIDE RECORDS SUMMARY | 2024-04-24 05:52 | XMS_ITS | Encounter Summary ---
Author Organization [facility] Address [address] [place] [address] Phone Care Team Providers Care Delicatessen Store Manager Name Role Phone Erica Rodrigues MD Unavailable Gasper Kaba MD Unavailable Brandy Aguirre PROGRAM HOST Unavailable [phone] Jo-Ann Morrow PhD Unavailable [phone] Christina Louis ALLERGIST/IMMUNOLOGIST PHYSICIAN Unavailable [phone] Sylvia Dawson Primary Care Provider [phone] Reason for Referral * Diagnostic Imaging (Routine) - Closed Specialty Diagnoses / Procedures Referred By Contac t Referred To Contact Diagnoses Cystoid macular edema of both eyes Procedures OCT, Retina - OU - Both Eyes Thomas Hinojosa DO Phone: tel: fax: [facility] (All Locations) Referral ID Status Reason Start Date Expiration Date Visits Re quested Visits Authorized [id number] Closed 03/27/2022 04/26/2023 1 1 BIOLOGY SCIENTIST Reason for Visit * Reason Comments CME OU Encounter Details Date Type Department Care Team (Late st Contact Info) Description 03/27/2022 11:00 AM CELL BIOLOGY SCIENTIST Office Visit [facility] Ophthalmology [facility] [address] [place] [address] Jessy Adame MD [address] [facility] [address] [place] [address] Cystoid macular edema of both eyes (Primary [...] on file Legal Sex Female 3:42 AM CELL BIOLOGY SCIENTIST Gender Identity Not on file Sexual Orientation Not on file 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 10 mL 11 03/27/2022 3 documented in this encounter Progress Notes * Jessy Adame MD - 03/27/2022 11:00 AM CST ASSESSMENT/ORDERS/PROCEDURES PERFORMED TODAY Chief Complaint Patient presents with CME OU HPI 2 week PO: s/p PPV/EXCHANGE - AIR/FLUID OS (02/11/2022) Pt states VA OS might be better than last visit. Denies having any floaters or eye pain. She has anoccassional roll of light in OS. C/o Dark elim ira in VA OS on Thursday. Thursday she c/o difficulty remembering words, worried she might have had a TIA. Going to see Neurosurgeon tomorrow. Durezol QID OS, Dorzolamide TID OS Last edited by Otilia Francisco COA on 03/27/2022 11:40 AM. Assessment/Plan Diagnoses and all orders for this visit: Cystoid macular edema of both eyes (Primary) Assessment & Plan: Currently on durezol qid left eye (OS) with great response. cystoid macular edema (CME) resolved today left eye (OS). Will begin slow durezol taper. Begin TID x 2 weeks, BID x 2 weeks, daily x 2 weeks then stop. Will re-evaluate in 4 weeks when she is on BID dosing. intraocular pressure (IOP) improved after being on trusopt. Recommend continuing at TID dosing. Orders: - OCT, Retina - OU - Both Eyes OCT, Retina - OU - Both Eyes Right Eye Quality was good. Scan locations included subfoveal. Progression has been stable. Findings include abnormal foveal contour, lamellar hole. Left Eye Quality was good. Progression has improved. Findings include intraretinal fluid. Notes Left eye (OS): resolved IRF OS The signs and symptoms of retinal detachment, tears, infection, elevated intra- ocular pressure werereviewed with the patient. Patient knows to call should they have any of the symptoms. PLAN FOR NEXT VISIT Follow-up and Dispositions Return in about 4 weeks (around 04/24/2022) for Dilated exam OU, OCT OU. I have examined the patient, reviewed and edited the chart as needed, and discussed the findings, diagnosis and plan with the resident. I agree with the findings, diagnosis, plan that we have createdand documented. Jessy Adame MD BIOLOGY SCIENTIST documented in this encounter Miscellaneous Notes * Assessment & Plan Note - Thomas Hinojosa DO - 03/27/2022 12:19 PM CSTAssociated Problem(s): Cystoid macular edema of both eyes Currently on durezol qid left eye (OS) with great response. cystoid macular edema (CME) resolved today left eye (OS). Will begin slow durezol taper. Begin TID x 2 weeks, BID x 2 weeks, daily x 2 weeks then stop. Will re-evaluate in 4 weeks when she is on BID dosing. intraocular pressure (IOP) improved after being on trusopt. Recommend continuing at TID dosing. BIOLOGY SCIENTIST documented in this encounter Plan of Treatment Not on file documented as of this encounter Procedures Procedure Name Priority Date/Time Associated Diagnosis Comments OCT, RETINA - OU - BOTH EYES Routine 03/27/2022 12:42 PM CELL BIOLOGY SCIENTIST Cystoid macular edema of both eyes documented in this encounter Results * OCT, Retina - OU - Both Eyes (03/27/2022 12:42 PM CELL BIOLOGY SCIENTIST) Anatomical Region Laterality Modality Head Optical Coherenc e Tomography Narrative 03/27/2022 12:42 PM CELL BIOLOGY SCIENTIST Right Eye Quality was good. Scan locations included subfoveal. Progression has been stable. Findings include abnormal foveal contour, lamellar hole. Left Eye Quality was good. Progression has improved. Findings include intraretinal fluid. Notes Left eye (OS): resolved IRF OS Thomas Hinojosa DO OPHTH TOMOGRAPHY Final Result [...] left eye 4 (four) times a day 02/26/2022 03/27/2022 documented as of this encounter Historical Medications * This list may reflect changes made after this encounter. traMADoL (ULTRAM) 50 mg tabletIndications :Pain Take 50 mg by mouth every 6 (six) hours as needed for pain 03/17/2022 06/17/2022 added in this encounter Eye Exam Visual Acuity (Snellen - Linear) Right eye Left eye Dist sc 20/20 20/30 -1 Dist ph sc 20/25 -1 Tonometry (Tonopen, 11:33 AM) Right eye Left eye Pressure 11 17 Pupils Dark Light Shape React APD Right eye 5 4 Round Brisk None Left eye 6 Round Sluggish None Visual Grossman (Counting fingers) Right eye Left eye Full Full Extraocular Movement Right eye Left eye Full Full Neuro/Psych Oriented x3: Yes Mood/Affect: Normal Dilation Both eyes: 1.0% Mydriacyl @ 11:40 AM External Exam Right eye Left eye [...] Periphery Vit syn Attached 360 Care Teams Delicatessen Store Manager Relationship Specialty Start Date End Date Sylvia Dawson PA [address] [facility] [address] [place], [place] [id number] PCP - General Internal Medicine 01/05/20 Erica Rodrigues MD [address] [address] Radiation Oncologist Radiation Oncology 10/25/18 Gasper Kaba MD [address] [address] Surgeon Surgical Oncology 10/25/18 Brandy Aguirre, PROGRAM HOST [address] [facility] [address] [place] [address] Nurse Practitioner Certified Clinical Nurse Specialist 10/25/18 Jo-Ann Morrow, PhD [address] [facility] [address] [place] [address] Nurse Practitioner Radiation Oncology 10/25/18 Christina Louis NP [address] [facility] [address] [place] [address] Nurse Practitioner Medical Oncology 10/25/18 documented as of this encounter
--- OUTSIDE RECORDS SUMMARY | 2024-04-24 05:52 | XMS_ITS | Encounter Summary ---
Author Organization [facility] Healthcare Address [address] [place] [address] Care Team Providers Care Lead Java J2Ee Developer Name Role Phone Erica Rodrigues MD Unavailable Gasper Kaba MD Unavailable [phone] Brandy Aguirre FELT TIPPING MACHINE TENDER Unavailable Jo-Ann Morrow PhD Unavailable [phone] Christina Louis HEATING SYSTEMS INSTALLER Unavailable [phone] Sylvia Dawson Primary Care Provider [phone] Encounter Details Date Type Department Care Team (Late st Contact Info) Description 03/28/2022 9:30 AM FLY TIER Lab [facility] ([facility]) [address] [place] [id number] Rheumatoid 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 (CMS/HCC) (HCC); Internal carotid artery dissection (CMS/HCC) (HCC) Social History Tobacco Use Types [...] on file Legal Sex Female 3:42 AM FLY TIER Gender Identity Not on file Sexual Orientation Not on file 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 Not on file Not on file Not on file documented as of this encounter Plan of Treatment Not on file documented as of this encounter Procedures Procedure Name Priority Date/Time Associated Diagnosis Comments VERIFY NOW CLOPIDOGREL Routine 03/28/2022 9:53 AM FLY TIER Internal carotid artery dissection (CMS/HCC) (HCC) CRP (ACUTE PHASE) Routine 03/28/2022 9:5 3 AM FLY TIER Rheumatoid 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 Blood 03/28/2022 9:53 AM FLY TIER 03/28/2022 10:30 AM FLY TIER us Lizzie Green HEATING SYSTEMS INSTALLER LAB BLOOD ORDERABLES Final Result [facility] Department [place] [address] * CRP (acute phase) (03/28/2022 9:53 AM FLY TIER) CRP 4.1 <=10.0 mg/L [facility] Blood 03/28/2022 9:53 AM FLY TIER 03/28/2022 10:19 AM FLY TIER Patricia Martinez MD LAB BLOOD ORDERABLES Final R esult Performing Organization Address [facility] Co de Phone Number [facility] Department [place] [address] documented in this encounter Visit Diagnoses Diagnosis Rheumatoid 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 (CMS/HCC) (HCC) Internal carotid artery dissection (CMS/HCC) (HCC) documented in this encounter Care Teams Lead Java J2Ee Developer Relationship Specialty Start Date End Date Sylvia Dawson PA [facility] [address] PCP - General Internal Medicine 01/05/20 Erica Rodrigues MD [address] [address] Radiation Oncologist Radiation Oncology 10/25/18 Gasper Kaba MD [address] LL [facility] [address] [place] [address] Surgeon Surgical Oncology 10/25/18 Brandy Aguirre CNS [address] [facility] [address] [place] [address] Nurse Practitioner Certified Clinical Nurse Specialist 10/25/18 Jo-Ann Morrow, PhD [address] [facility] [address] LL LL [address] [place] [address] Nurse Practitioner Radiation Oncology 10/25/18 Christina Louis HEATING SYSTEMS INSTALLER [address] [facility] [address] LL LL [address] [place] [address] Nurse Practitioner Medical Oncology 10/25/18 documented as of this encounter
--- OUTSIDE RECORDS SUMMARY | 2024-04-24 05:52 | XMS_ITS | Encounter Summary ---
Author Organization [facility] Address [address] [place] [address] Phone Care Team Providers Care Hospital Superintendent Name Role Phone Erica Rodrigues MD Unavailable Gasper Kaba MD Unavailable Brandy Aguirre LOADING CHECKER Unavailable Jo-Ann Morrow PhD Unavailable [phone] Christina Louis DRAWER HARDWARE WORKER Unavailable [phone] Sylvia Dawson Primary Care Provider [phone] Encounter Details Date Type Department Care Team (Late st Contact Info) Description 02/12/2022 8:00 AM CDT Office Visit [facility] Ophthalmology [address] [facility] 6th [place] [address] Jessy Adame MD [address] [place] [address] [address] [place], [place] [id number] Cystoid macular edema of both eyes (Primary [...] file Legal Sex Female 3:42 AM COORDINATOR SKILL TRAINING PROGRAM Gender Identity Not on file Sexual Orientation Not on file 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 HPI 1 day POV Pt reports did not sleep well at , 710 pain , headache today PF and TOBR QID OS Last edited by Mary Mcgee on 02/12/2022 8:08 AM. 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 Doing well. Shield operated eye, Tobramycin 4x/day and Predforte 4x/day Return to clinic in one week. Signs and symptoms of retinal detachment, tears and endophthalmitis, elevated pressure reviewed with patient. Post Op Position:None. Altitude precautions were reviewed with patient. No strenuous activity. The signs and symptoms of retinal detachment, tears, infection, elevated intra- ocular pressure werereviewed with the patient. Patient knows to call should they have any of the symptoms. PLAN FOR NEXT VISIT Follow-up and Dispositions Return in about 1 week (around 02/19/2022) for Dilated Exam OS. I have examined the patient, reviewed and edited the chart as needed, and discussed the findings, diagnosis and plan with the resident. I agree with the findings, diagnosis, plan that we have createdand documented. Jessy Adame MD documented in this encounter Miscellaneous Notes * Assessment & Plan Note - Jacek Joyce MD - 02/12/2022 8:04 AM CDT Associated Problem(s): Cystoid macular edema of both eyes One day status post vitrectomy, capsulectomy to the left eye. Doing well. Shield operated eye, Tobramycin 4x/day and Predforte 4x/day Return to clinic in one week. Signs and symptoms of retinal detachment, tears and endophthalmitis, elevated pressure reviewed with patient. Post Op Position:None. Altitude precautions were reviewed with patient. No strenuous activity. documented in this encounter Plan of Treatment Not on file documented as of this encounter Visit Diagnoses Diagnosis Cystoid macular edema of both eyes- Primary Cystoid macular degeneration of retina documented in this encounter Eye Exam Visual Acuity (Snellen - Linear) Right eye Left eye Dist sc 20/40 -2 Tonometry (Tonopen, 8:05 AM) Right eye Left eye Pressure 15 6 Pupils Dark Light Shape React APD Right eye 4 4 Round Minimal None Left eye 4 4 Round Minimal None Neuro/Psych Oriented x3: Yes Mood/Affect: Normal Dilation Left eye: 1% Tropicamide @ 8 :05 AM External Exam Right eye Left eye External Normal Slit Lamp Exam Right eye Left eye Lids/Lashes Normal Conjunctiva/Sclera closed Cornea Clear Anterior Chamber Deep and quiet Iris Round and reacti ve Lens PCIOL, open caps ule Fundus Exam Right eye Left eye Periphery 40% airattached Care Teams Hospital Superintendent Relationship Specialty Start Date End Date Syvlia Dawson PA [address] [place] [address] PCP - General Internal Medicine 01/05/20 Erica Rodrigues MD [address] [facility] [address] LL [address] [place] [address] Radiation Oncologist Radiation Oncology 10/25/18 Gasper Kaba MD [address] [place] [address] Surgeon Surgical Oncology 10/25/18 Brandy Aguirre CNS [address] [place] [address] Nurse Practitioner Certified Clinical Nurse Specialist 10/25/18 Jo-Ann Morrow, PhD [address] [place] [address] Nurse Practitioner Radiation Oncology 10/25/18 Christina Louis DRAWER HARDWARE WORKER [address] [place] [address] Nurse Practitioner Medical Oncology 10/25/18 documented as of this encounter
--- OUTSIDE RECORDS SUMMARY | 2024-04-24 05:52 | XMS_ITS | Encounter Summary ---
Author Organization [facility] Address [address] [place] [address] Phone Care Team Providers Care Financial Analyst Name Role Phone Erica Rodrigues MD Unavailable Gasper Kaba MD Unavailable Brandy Aguirre HAND I BLOCKER Unavailable Jo-Ann Morrow PhD Unavailable [phone] Christina Louis SUPERVISOR BINDERY Unavailable [phone] Sylvia Dawson Primary Care Provider [phone] Encounter Details Date Type Department Care Team (Late st Contact Info) Description 02/12/2022 Telephone [facility] Neurosurgery [facility]4 [facility] Medical Office Building [address] [place] [address] Lizzie Green, JENNI [address] [place] [address] Social History Tobacco Use Types Packs/Day Years [...] on file Legal Sex Female 3:42 AM POCKET FLAP CREASING MACHINE OPERATOR Gender Identity Not on file Sexual Orientation Not on file 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 Pt aware of location and instructions. * Telephone Encounter - Landy Weinstein CMA - 02/12/2022 1:12 PM CDT Patient calling back to get cerebral angiogram scheduled with RUIZ, please call with date * Telephone Encounter - Lizzie Green NP - 02/12/2022 8:23 AM CDT LVM for pt to set up cerebral angiogram. documented in this encounter Plan of Treatment Not on file documented as of this encounter Visit Diagnoses Not on filedocumented in this encounter Care Teams Financial Analyst Relationship Specialty Start Date End Date Sylvia Dawson PA [address] [facility] [address] [place] [address] PCP - General Internal Medicine 01/05/20 Erica Rodrigues MD [address] [place] [address] Radiation Oncologist Radiation Oncology 10/25/18 Gasper Kaba MD [address] [facility] [address] [place] [address] Surgeon Surgical Oncology 10/25/18 Brandy Aguirre, HAND I BLOCKER [address] LL [facility] [address] [place] [address] Nurse Practitioner Certified Clinical Nurse Specialist 10/25/18 Jo-Ann Morrow, PhD [address] [place] [address] Nurse Practitioner Radiation Oncology 10/25/18 Christina Louis, SUPERVISOR BINDERY [address] [place] [address] Nurse Practitioner Medical Oncology 10/25/18 documented as of this encounter
--- OUTSIDE RECORDS SUMMARY | 2024-04-24 05:52 | XMS_ITS | Encounter Summary ---
Author Organization [facility] Healthcare Address [address] [place] [address] Care Team Providers Care Membership Director Name Role Phone Erica Rodrigues MD Unavailable Gasper Kaba MD Unavailable Brandy Aguirre TIE MAN Unavailable [phone] Jo-Ann Morrow PhD Unavailable [phone] Christina Louis TELECOMMUNICATIONS ENGINEER Unavailable [phone] Sylvia Dawson Primary Care Provider [phone] Encounter Details Date Type Department Care Team (Late st Contact Info) Description 03/11/2022 Orders Only [facility] Neuro Interventional Radiology [address] [place] [address] Rossana Ventura PA [address] [facility] [address] [place] [address] Social History Tobacco Use Types Packs/Day Years [...] on file Legal Sex Female 3:42 AM POCKETS AND PIECES NECKTIE OPERATOR Gender Identity Not on file Sexual Orientation Not on file 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 file Not on file Not on file documented as of this encounter Plan of Treatment Not on file documented as of this encounter Visit Diagnoses Not on filedocumented in this encounter Care Teams Membership Director Relationship Specialty Start Date End Date Sylvia Dawson PA [facility]5 [facility] [address] [place] [address] PCP - General Internal Medicine 01/05/20 Erica Rodrigues MD [address] [place] [address] Radiation Oncologist Radiation Oncology 10/25/18 Gasper Kaba MD [address] LL [facility] [address] [place] [address] Surgeon Surgical Oncology 10/25/18 Brandy Aguirre, TIE MAN [address] [place] [address] Nurse Practitioner Certified Clinical Nurse Specialist 10/25/18 Jo-Ann Morrow, PhD [address] LL [facility] [address] [place] [address] Nurse Practitioner Radiation Oncology 10/25/18 Christina Louis NP [address] LL [facility] [address] [place] [address] Nurse Practitioner Medical Oncology 10/25/18 documented as of this encounter
--- OUTSIDE RECORDS SUMMARY | 2024-04-24 05:52 | XMS_ITS | Encounter Summary ---
Author Organization [facility] Healthcare Address [address] [place] [address] Care Team Providers Care Watch Hairspring Assembler Name Role Phone Erica Rodrigues MD Unavailable Gasper Kaba MD Unavailable Brandy Aguirre HEADLINER INSTALLER Unavailable [phone] Jo-Ann Morrow PhD Unavailable [phone] Christina Louis ELECTRONIC ORGAN MECHANIC Unavailable [phone] Sylvia Dawson Primary Care Provider [phone] Encounter Details Date Type Department Care Team (Late st Contact Info) Description 03/03/2022 Telephone [facility] Neuro Interventional Radiology [address] [place] [address] Harmony Vernon RN Social History Tobacco Use [...] on file Legal Sex Female 3:42 AM PSYCHIATRY ADULT PHYSICIAN Gender Identity Not on file Sexual Orientation Not on file 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 file Not on file Not on file documented as of this encounter Miscellaneous Notes * Telephone Encounter - Harmony Vernon RN - 03/03/2022 12:57 PM PSYCHIATRY ADULT PHYSICIAN Preprocedure Phone Call Procedure Time Verified: Yes Arrival Time Verified: Yes Procedure Location Verified: Yes Medical History Reviewed: Yes NPO Status Reinforced: Yes Ride and Caregiver Arranged: Yes Patient Knows to Bring Current Medications: Yes Patient Knows to Bring CPAP: No Is Patient on Home Ventilator?: No Is Patient on Blood Thinners?: No HIATRY ADULT PHYSICIAN documented in this encounter Plan of Treatment Not on file documented as of this encounter Visit Diagnoses Not on filedocumented in this encounter Care Teams Watch Hairspring Assembler Relationship Specialty Start Date End Date Sylvia Dawson PA [address] [address] PCP - General Internal Medicine 01/05/20 Erica Rodrigues MD [address] [facility] [address] [place] [address] Radiation Oncologist Radiation Oncology 10/25/18 Gasper Kaba MD [address] [facility] [address] [place] [address] Surgeon Surgical Oncology 10/25/18 Brandy Aguirre CNS [address] [facility] [address] [place] [address] Nurse Practitioner Certified Clinical Nurse Specialist 10/25/18 Jo-Ann Morrow, PhD [address] [facility] [address] [place] [address] Nurse Practitioner Radiation Oncology 10/25/18 Christina Louis, ELECTRONIC ORGAN MECHANIC [address] [facility] [address] [place] [address] Nurse Practitioner Medical Oncology 10/25/18 documented as of this encounter
--- OUTSIDE RECORDS SUMMARY | 2024-04-24 05:52 | XMS_ITS | Encounter Summary ---
Author Organization [facility] Healthcare Address [address] [place] [address] Care Team Providers Care School Office Assistant Name Role Phone Erica Rodrigues MD Unavailable Gasper Kaba MD Unavailable Brandy Aguirre IT APPLICATIONS ANALYST Unavailable [phone] Jo-Ann Morrow PhD Unavailable Christina Louis FINANCIAL DEALERS Unavailable [phone] Sylvia Dawson Primary Care Provider [phone] Encounter Details Date Type Department Care Team (Late st Contact Info) Description 03/28/2022 9:45 AM PARTS MANAGER Lab [facility] Advanced [facility] [place] [facility] ([facility]) [address] [place] [address] Social History Tobacco Use Types Packs/Day Years [...] on file Legal Sex Female 3:42 AM PARTS MANAGER Gender Identity Not on file Sexual Orientation Not on file 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 on 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 Not on file Not on file documented as of this encounter Plan of Treatment Not on file documented as of this encounter Visit Diagnoses Not on filedocumented in this encounter Care Teams School Office Assistant Relationship Specialty Start Date End Date Sylvia Dawson PA [address] [place] [address] PCP - General Internal Medicine 01/05/20 Erica Rodrigues MD [address] [place] [address] Radiation Oncologist Radiation Oncology 10/25/18 Gasper Kaba MD [address] [place] [address] Surgeon Surgical Oncology 10/25/18 Brandy Aguirre, IT APPLICATIONS ANALYST [address] [place] [address] Nurse Practitioner Certified Clinical Nurse Specialist 10/25/18 Jo-Ann Morrow, PhD [address] [place] [address] Nurse Practitioner Radiation Oncology 10/25/18 Christina Louis NP [address] [place] [address] Nurse Practitioner Medical Oncology 10/25/18 documented as of this encounter
--- OUTSIDE RECORDS SUMMARY | 2024-04-24 05:52 | XMS_ITS | Encounter Summary ---
Author Organization [facility] Address [address] [place] [address] Care Team Providers Care Sub Assembly Team Worker Name Role Phone Erica Rodrigues MD Unavailable Gasper Kaba MD Unavailable Brandy Aguirre QA DEVELOPER Unavailable [phone] Jo-Ann Morrow PhD Unavailable [phone] Christina Louis SHOP SUPERINTENDENT Unavailable [phone] Sylvia Dawson Primary Care Provider [phone] Encounter Details Date Type Department Care Team (Late st Contact Info) Description 04/02/2022 Telephone [facility] Cardiology [address] [facility] [address] [facility] [address] [place] [address] Harpal De León MD [address] [facility] [address] [place] [address] Social History Tobacco Use Types Packs/Day Years [...] on file Legal Sex Female 3:42 AM FLUME WORKER Gender Identity Not on file Sexual Orientation Not on file 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 Appt made to see MJF on . Pt feels unsure who to see and since vascular office reached out to us, I made an appt for her. E WORKER * Telephone Encounter - Sophia Garzon RN - 04/15/2022 2:10 PM FLUME WORKER Getachew, The patient called our office to discuss headaches after her right carotid stent which was placed for her right carotid dissection. During our discussion she mentioned that she has been keeping trackof her blood pressure, and it has been running high consistently since her PowerIn[employer] message sent on 04/02. She reports she has left messages but has not heard back, and when I just tried to call office it said the line was busy and hung up on me. Can you please reach out to discuss her high blood pressure, given her recent treatment and plan for aneurysm repair as well, we would like her blood pressure in a normal range Thanks! E WORKER * Telephone Encounter - Corinna Love RN - 04/02/2022 5:20 PM FLUME WORKER Mychart message below from pt with bp readings. Meds taken every morning around 8:15-8:30. Here are my readings: 03/26 8:30am 143/90 10:14am 113/73 8:25pm 132/88 03/27 4:46pm 113/82 7:24pm 136/89 03/28 5:42pm 133/91 8:35pm 135/89 03/29 5:31pm 131/89 03/30 10:36 am 132/86 7:41 pm 145/91 03/31 9:26 am 106/83 2:18 pm 135/87 7:19 pm 103/76 *I probably took an extra 40mg of lisinopril or 12.5mg HCTZ 04/01 4:38 pm 129/89 04/02 2:28 pm 135/95 Took an additional 40mg lisinopril after this reading. 4:11 pm 155/96 Thank you for your help. E WORKER * Telephone Encounter - Corinna Love RN - 04/02/2022 4:46 PM FLUME WORKER Spoke with pt when she called in to the office. She is wondering if we reviewed her Nebula message(see below). Pt is concerned about her blood pressure readings and her aneurysm. I discussed that it is normal for blood pressures to fluctuate and we would like to see what her blood pressure readings are 1-2 hours after her bp medications. Pt reports her bp readings are lower in the morning and gradually get higher as the day goes on. Pt reports bp reading today of 155/96. She would like [facility] advice. E WORKER * Telephone Encounter - Lesly Echeverria RN - 04/02/2022 3:35 PM CST ----- Message from Yesika Denney sent at 04/02/2022 3:04 PM FLUME WORKER ----- Regarding: Blood pressure issues Contact: Getachew, Over the past few weeks I've been not able to keep my blood pressure stable. It's sometimes comfortable/low at 107/75, but more often, it's been high. I feel the difference when it's above 135-140/85-90. I am schedule for surgery on the for my brain aneurysm, which has grown. During the angiogram,they also found a dissection in my right carotid. I believe this occurred spontaneously about a year ago. I take 40mg in the a.m., which has been fine until these recent changes. I've been trying to managemy BP by taking an extra 12.5mg HCTZ and/or an extra 40mg during the day. My HCTZ is an older rx (2018), so perhaps it needs to be updated. Please let me know if there are any other things I should be doing. My cell is [phone] if you prefer to call. Thank you so much for your help. Yesika Denney E WORKER documented in this encounter Plan of Treatment Not on file documented as of this encounter Visit Diagnoses Not on filedocumented in this encounter Care Teams Sub Assembly Team Worker Relationship Specialty Start Date End Date Sylvia Dawson PA [address] [facility] [address] [place] [address] PCP - General Internal Medicine 01/05/20 Erica Rodrigues MD [address] [facility] [address] [place] [address] Radiation Oncologist Radiation Oncology 10/25/18 Gasper Kaba MD [address] [facility] [address] [place] [address] Surgeon Surgical Oncology 10/25/18 Brandy Aguirre, CARINA [address] [facility] [address] [place] [address] Nurse Practitioner Certified Clinical Nurse Specialist 10/25/18 Jo-Ann Morrow, PhD [address] [facility] [address] [place] [address] Nurse Practitioner Radiation Oncology 10/25/18 Christina Louis NP [address] [place] [address] Nurse Practitioner Medical Oncology 10/25/18 documented as of this encounter
--- OUTSIDE RECORDS SUMMARY | 2024-04-24 05:52 | XMS_ITS | Encounter Summary ---
Author Organization [facility] [employer] [facility] [place] [facility] Address [address] [place] [address] Phone Care Team Providers Care Repair Supervisor Name Role Phone Erica Rodrigues MD Unavailable Gasper Kaba MD Unavailable [phone] Brandy Aguirre LENS GRINDING MACHINE OPERATOR Unavailable [phone] Jo-Ann Morrow PhD Unavailable [phone] Christina Louis INGOT WEIGHER Unavailable [phone] Sylvia Dawson Primary Care Provider [phone] Encounter Details Date Type Department Care Team (Late st Contact Info) Description 03/27/2022 1:00 PM ROTARY SLICING MACHINE OPERATOR Office Visit [facility] Rheumatology [address] 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 Not on file Not on file Not on file documented as of this encounter Last Filed Vital Signs Vital Sign Reading Time Taken Comments Blood Pressure 123/84 03/27/2022 1:10 PM ROTARY SLICING MACHINE OPERATOR Pulse 63 03/27/2022 1:10 PM ROTARY SLICING MACHINE OPERATOR Temperature 36.7 ??C (98.1 ??F) 03/27/2022 1:10 PM CS T Respiratory Rate - - Oxygen Saturation - - Inhaled Oxygen Concentration - - Weight 64 kg (141 lb) 03/27/2022 1:10 PM ROTARY SLICING MACHINE OPERATOR Height 160 cm (5' 3 ) 03/27/2022 1:10 PM ROTARY SLICING MACHINE OPERATOR Body Mass Index 24.98 03/27/2022 1:10 PM ROTARY SLICING MACHINE OPERATOR documented in this encounter Progress Notes * Patricia Martinez MD - 03/27/2022 1:00 PM CST Rheumatology PATIENT NAME: Yesika Denney : 1960 STEVEN: 03/27/2022 Subjective Chief Complaint: F/U seronegative RA HPI: Yesika Denney is a 61 y.o. 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 Current management is SSZ 500 mg bid (decreased last visit) + MTX 20 mg weekly + HCQ 200 mg daily . She was last seen on August 22. Interval History: Since last visit, she had cataract surgery and required vitrectomy. 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 The patient reports her arthritis is doing quite well and she has no increased morning stiffness, gelling or swollen joints and shehas noted no difference with decreasing the sulfasalazine. She has had no episodes of scleritis. Disease Treatment History(Reviewed/revised 03/27/2022): May 10 2015 -initiation of anastrazole and [...] no interval changes Objective Current Outpatient Medications: aspirin 325 mg enteric coated tablet, Take 1 tablet (325 mg total) by mouth daily, Disp: 30 tablet,Rfl: 11 atenoloL (TENORMIN) 25 mg tablet, TAKE 1 TABLET(25 MG) BY MOUTH DAILY, Disp: 90 tablet, Rfl: 1 alzqqmkzxe-qzpqjzapmaodu-fzqmdwhs-codeine (FIORICET WITH CODEINE) 15-051-46-30 mg per capsule, Take1 capsule by mouth every 4 (four) hours as needed for headaches, Disp: 20 capsule, Rfl: 0 calcium carbonate/vitamin D3 (CALTRATE 600 PLUS D ORAL), Take 1 tablet by mouth every morning, Disp: , Rfl: clopidogreL (PLAVIX) 75 mg tablet, Take 1 tablet (75 mg total) by mouth daily, Disp: 30 tablet, Rfl: 11 coenzyme Q10 200 mg capsule, Take 1 [...] 1 tablet (20 mg total) by mouth daily, Disp: 90 tablet, Rfl: 1 methotrexate 2.5 mg tablet, TAKE 8 TABLETS BY MOUTH ONCE A WEEK DIRECTED, Disp: 96 tablet, Rfl: 0 multivitamin with minerals tablet, Take 1 tablet by mouth every morning, Disp: , Rfl: sulfaSALAzine EN (AZULFIDINE EN) 500 mg EC tablet, TAKE 2 TABLETS TWO TIMES A DAY (Patient taking differently: Take 1,000 mg by mouth 2 (two) times a day), Disp: 360 tablet, Rfl: 1 traMADoL (ULTRAM) 50 mg tablet, Take 50 mg by mouth every 6 (six) hours as needed, Disp: , Rfl: turmeric root extract 500 mg capsule, Take 500 mg by mouth every morning, Disp: , Rfl: valACYclovir (Valtrex) 500 mg tablet, Take 1 tablet (500 mg total) by mouth daily, Disp: 90 tablet,Rfl: 2 vit R-N-bgbiwy-zinc-lutein (PreserVision Lutein) 226-90-0.8-5 mg capsule, Take 1 tablet by mouth every morning, Disp: , Rfl: zinc 50 mg tablet, Take 50 mg by mouth every morning, Disp: , Rfl: Physical Exam BP 123/84 Pulse 63 Temp 36.7 ??C (98.1 ??F) Ht 160 cm (5' 3 ) Wt 64 kg (141 lb) LMP (LMP Unknown) BMI 24.98 kg/m?? GEN: NAD, WDWN SKIN: No rash HEENT: PEERL, Conjunctivae are clear. EXT: No LE edema. MSK: No synovitis in a standard 28 joint count PSYCH: Appropriate affect. Labs: Recent Results (from the past 168 hour(s)) POCT creatinine Collection Time: 03/20/22 2:06 PM Result Value Ref Range Creatinine POC 0.8 0.6 - 1.1 mg/dL CBC with auto differential Collection Time: 03/25/22 8:39 AM Result Value Ref Range WBC 4.4 3.4 - 10.8 x10E3/uL RBC 3.84 3.77 - 5.28 x10E6/uL Hgb 12.6 11.1 - 15.9 g/dL Hct 38.8 34.0 - 46.6 % MCV 101 (H) 79 - 97 fL MCH 32.8 26.6 - 33.0 pg MCHC 32.5 31.5 - 35.7 g/dL Rdw 11.8 11.7 - 15.4 % Platelets 233 150 - 450 x10E3/uL Neutrophils 55 Not Estab. % Lymphs 33 Not Estab. % Monocytes 10 Not Estab. % Eosinophils 1 Not Estab. % Basophil pct 1 Not Estab. % Neutrophil abs 2.4 1.4 - 7.0 x10E3/uL Lymphs (Absolute) 1.5 0.7 - 3.1 x10E3/uL Monocyte abs 0.4 0.1 - 0.9 x10E3/uL Eosinophils, abs 0.1 0.0 - 0.4 x10E3/uL Basophils, abs 0.0 0.0 - 0.2 x10E3/uL Immature Granulocytes 0 Not Estab. % Immature Grans (Abs) 0.0 0.0 - 0.1 x10E3/uL Comprehensive metabolic panel Collection Time: 03/25/22 8:39 AM Result Value Ref Range Glucose 89 70 - 99 mg/dL BUN 10 8 - 27 mg/dL Creatinine, Serum 0.76 0.57 - 1.00 mg/dL eGFR 89 >59 mL/min/1.73 BUN/creat ratio 13 12 - 28 Sodium 139 134 - 144 mmol/L Potassium, sr 3.9 3.5 - 5.2 mmol/L Chloride 101 96 - 106 mmol/L CO2 26 20 - 29 mmol/L Calcium 9.0 8.7 - 10.3 mg/dL Protein, sr 6.4 6.0 - 8.5 g/dL Albumin 4.6 3.8 - 4.8 g/dL Globulin, Total 1.8 1.5 - 4.5 g/dL A/G Ratio 2.6 (H) 1.2 - 2.2 Bilirubin, Total 0.3 0.0 - 1.2 mg/dL Alk phos 60 44 - 121 IU/L AST 15 0 - 40 IU/L ALT 14 0 - 32 IU/L TSH Collection Time: 03/25/22 8:39 AM Result Value Ref Range TSH 4.250 0.450 - 4.500 uIU/mL Hemoglobin A1c Collection Time: 03/25/22 8:39 AM Result Value Ref Range Hgb A1C 5.0 4.8 - 5.6 % Lipid panel Collection Time: 03/25/22 8:40 AM Result Value Ref Range Cholesterol 336 (H) 100 - 199 mg/dL Triglycerides 91 0 - 149 mg/dL HDL Cholesterol 104 >39 mg/dL VLDL 14 5 - 40 mg/dL LDL, calculated 218 (H) 0 - 99 mg/dL LDL, comment Comment Assessment Assessment: Problem List Items Addressed This Visit Rheumatology Problems Rheumatoid arthritis with negative rheumatoid factor (HCC) - Primary Relevant Orders CRP (acute phase) Other High risk medication use Today she presents with clinically inactive disease but given her vascular issues, I would like to obtain a C reactive protein to assess for systemic inflammation. She will have this added to her laboratories tomorrow. I did review her MRA and it is also significant for cervical degenerative disc disease in addition to the vascular findings. Monitoring laboratories of CBC and CMP are entirely stable. She will discuss her lipid panel with her primary care physician but given her vascular health,consideration for a minimum of Crestor 3 days weekly should be given Vaccinations have been reviewed and she has had both influenza and COVID-19 boosters I reviewed the patient's prior visit August 22 and health assessment questionnaire.Current diseaseactivity is low Immunizations: Immunization History Administered Date(s) Administered Influenza, Quadrivalent, Cell Culture-based MDCK, Preservative Free, Antibiotic Free, Pyrseechpaupd48/04/2018 Influenza, Quadrivalent, Split, Preservative Free, Intramuscular 01/05/2020, 02/26/2021, 02/27/2022 Influenza, Trivalent, Intramuscular 01/27/2018 Influenza, Trivalent, Preservative Free, Intramuscular 02/24/2017 Influenza, Unspecified 01/11/2019 Pfizer SARS-CoV-2 Vaccination (12+ YRS) BEASLEY-READY TO USE 05/14/2021 Pfizer SARS-CoV-2 Vaccination (12+ yrs) PURPLE 10/12/2020, 11/08/2020 Tdap 02/27/2022 ZOSTER Recombinant 02/23/2020, 05/01/2020 Reviewed 03/27/2022 Follow-up: Return in about 6 months (around 09/25/2022). RY SLICING MACHINE OPERATOR documented in this encounter Plan of Treatment Not on file documented as of this encounter Results * CRP (acute phase) (03/28/2022 9:53 AM ROTARY SLICING MACHINE OPERATOR) CRP 4.1 <=10.0 mg/L [facility] Blood 03/28/2022 9:53 AM ROTARY SLICING MACHINE OPERATOR 03/28/2022 10:19 AM ROTARY SLICING MACHINE OPERATOR us Patricia Martinez MD LAB BLOOD ORDERABLES Final R esult [facility] Department [place] [address] documented in this encounter Visit Diagnoses Diagnosis Rheumatoid 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 (CMS/HCC) (HCC)- Primary High risk medication use documented in this encounter Care Teams Repair Supervisor Relationship Specialty Start Date End Date Sylvia Dawson PA [address] [facility] [address] [place] [address] PCP - General Internal Medicine 01/05/20 Erica Rodrigues MD [address] [facility] [address] [place] [address] Radiation Oncologist Radiation Oncology 10/25/18 Gasper Kaba MD [address] [facility] [address] [place] [address] Surgeon Surgical Oncology 10/25/18 Brandy Aguirre CNS [address] [facility] [address] [place] [address] Nurse Practitioner Certified Clinical Nurse Specialist 10/25/18 Jo-Ann Morrow, PhD [address] [facility] [address] [facility] [address] [place] [address] Nurse Practitioner Radiation Oncology 10/25/18 Christina Louis, INGOT WEIGHER [address] [facility] [address] [place] [address] Nurse Practitioner Medical Oncology 10/25/18 documented as of this encounter
--- OUTSIDE RECORDS SUMMARY | 2024-04-24 05:52 | XMS_ITS | Encounter Summary ---
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 [H35.353] Procedures IA VITRECTOMY,MECHANICAL VITRECTOMY - 25 GAUGE Referral ID Status Reason Start Date Expiration Date Visits Re quested Visits Authorized [id number] 1 1 Encounter Details Date Type Department Care Team (Late st Contact Info) Description 02/11/2022 11:03 AM CDT - 02/11/2022 12:03 PM CDT Surgery [facility] Operating Room [facility] [address] [place] [id number] Jessy Adame MD [address] [address] VITRECTOMY - 25 GAUGE Surgery Details Date/Time Status Location OR Service Patient Class Case Cl ass Case Type Trauma Case? 02/11/2022 11:03 AM Posted [facility] OR POD 4 M Ophthalmology Outpatient Elective Panel 1 Procedure LRB Anes Op Region Wound Class Comments VITRECTOMY - 25 GAUGE Left Monitor Anesthesia Care Eye Class I - Clean EXCHANGE - AIR/FLUID Left Monitor Anesthesia Care Eye Class I - Clean Surgeon [...] on file Legal Sex Female 3:42 AM ENVIRONMENTAL COMPLIANCE SPECIALIST Gender Identity Not on file Sexual [...] 1 tablet by mouth every morning vit Y-T-ekmgui-zinc- lutein (PreserVision Lutein) 226-90-0.8-5 mg capsuleIndicatio ns:Eye [...] and wish to proceed. Source Note - [facility] charlotteFadi snowden MD - 02/04/2022 9:52 AM CDT Images from the original note were not included. Center for Preoperative Assessment and Planning Preoperative Evaluation Record Evaluation type/location: TPAP from [facility] Planned procedure site: [facility] CAM OR (Pod 4) Date: 02/04/22 [...] - sinus tachycardia. Pertinent negatives: CAD ; RI ; CABG ; valvular heart disease; valve [...] provided by telephone and electronically sent via [employer]. Patient verbalized understanding of preoperative plan. Blood [...] periprocedural period. Please call the CPAP attending ([phone]) with any questions. Patient's COVID19 status is: Unexposed. The patient currently has no concerning symptoms of COVID19. . Patient's COVID-19 vaccination status is Up to date with 3 mRNA vaccines. Documentation of vaccination status is available in the [facility] Immunization tab. . Plan for pre-procedure COVID19 [...] Ectopic Multiple Live Births 3 Obstetric Comments Terrazzo Worker Helper history: 3 para 3, 1st term age [...] 500 mg by mouth every morning vit I-X-sbwfji-zinc-lutein (PreserVision Lutein) 226-90-0.8-5 mg capsule 02/03/2022 -- -- Ronda Ruano MD zinc 50 mg tablet 02/02/2022 -- -- ProviderRonda MD No current facility-administered medications for this [...] valACYclovir (Valtrex) 500 mg tablet ??? vit S-F-vgjoje-zinc-lutein (PreserVision Lutein) 226-90-0.8-5 mg capsule ??? zinc [...] Medication protocol when under care of a INSPECTOR PURCHASED PARTS Planned anesthesia: MAC Induction: Induction: intravenous. Postoperative Plan: No plan for postoperative opioid use. No postoperative mechanical ventilation intended. Patient's planned disposition post procedure is Outpatient. No trial extubation planned. Informed Consent: Discussed plan with INSPECTOR PURCHASED PARTS. Anesthesia plan and risks discussed with patient [...] a past medical history of Autoimmune disease ([facility]) ([facility]), Benign left breast lump (06/2002), Brain aneurysm, Breast cancer ([facility]) ([facility]) (2014), Cataract, Depression, Elevated cholesterol, Hypertension, Migraine, Motion sickness, and RA (rheumatoid arthritis) ([facility]). she has a past surgical history that [...] (two) times a week Tues and Thu Past Week atenoloL (TENORMIN) 25 [...] every morning) 90 tablet 2 02/10/2022 vit P-H-jdxsvy-zinc-lutein (PreserVision Lutein) 226-90-0.8-5 mg capsule Take 1 [...] Miscellaneous Notes * Perioperative Nursing Note - Edy, Cassie Fatimah, RN - 02/11/2022 10:39 AM CDT Unoperative [...] depressed techniques with the aid of skilled recovery assistant. There appeared to be some scar tissue [...] MD - Fellow Anesthesiologist: Fadi Mckeon MD INSPECTOR PURCHASED PARTS: Kacie Zelaya CRNA Riprap Worker: Cassie Snow RN Scrub: Venus Cintron RN [...] Preoperative Assessment and Planning CPAP Clinic Location: [facility] The night before your surgery: * [...] mg tablet Take morning of surgery vit B-X-ocjekp-zinc-lutein (PreserVision Lutein) 226-90-0.8-5 mg capsule Stop taking [...] Planning Perioperative Nursing Note Telephone Preoperative Evaluation ([facility]) - TELEPHONE ONLY, NO PHYSICAL EXAM [...] mouth every morning) 90 tablet 2 vit K-K-yoozdc-zinc-lutein (PreserVision Lutein) 226-90-0.8-5 mg capsule Take 1 [...] Systems: Spouse/significant other Assistance Needed: Christiano/ / Paste Up Worker and helper Patient expects to be discharged to:: Private residence [facility]UD[facility] NO COVID Screening Covid-19 Screening Have you [...] 20 seconds. Use an alcohol- based hand security tech that contains at least 60% alcohol if [...] your insurance card, a photo ID (example: Paste Up Worker's License) and a method of payment for [...] Chart. If you are having surgery at [facility], please arrive on the day [...] Pathway to Excellent Care by the followinglink: [email or web address] How To Prepare Your [...] eligible.. If you are going to a [facility] Testing Site for COVID testing, please [...] 20 seconds. Use an alcohol- based hand security tech that contains at least 60% alcohol if soap and water are not available. These are general guidelines, but if have been told by a physician that you should not perform any of the above, please follow physician's guidelines. If you have questions, please call the CPAP Staff at [phone], Thursday-Thursday 8am-4:30pm. All patients should read the below section: All visitors/patients are being asked to wear a clean face mask when entering the hospital. COVID 19 Updates & Visitor Policy: Please access [email or web address] for the most updated information. Information on [facility]: Please view [email or web address] (Patient & Visitor Information) for additional details regarding Advanced Directive forms, AWARE, directions, parking information, lodging, Internet access, dining and more. Information on [facility] or [facility] ([facility]): Please view [email or web address] (Patient and Visitor Information) for parking/directions and more. For MyChart information, to activate account or password recovery, please go to [email or web address] or call [phone] (toll-free: [phone]). Information for Suicide Prevention: National Suicide Prevention Lifeline (7-058- 297-HZIR (3500)). Surgery Times: For patients having surgery @ [facility], [facility] Medicine, [facility] or [facility] ([facility]), if your surgeon's office has not notified you of your surgery time by NOON THE BUSINESS DAY BEFORE your surgery, please call [phone] and ask for your surgeon's office Dr. [...] (BSS) intraocular solution As needed, Starting on Thu02/11/22 at 1059, Intra-Op Given 02/11/2022 10:59 AM CDT 15 mL Left Eye BSS-EPINEPHrine 0.5 mg preservative free intraocular solution (total volume 500 mL) As needed, Starting on Thu02/11/22 at 1059, Intra-Op Given 02/11/2022 10:59 AM CDT 500 mL Left Eye Carrier Fluids for Secondary Infusion - 0.9% [...] AM CDT 30 mL/hr 30 mL/hr lidocaine 1%, bupivicaine 0.375%, hyaluronidase 75 units preservative free ophthalmic solution (total volume 5 mL) As needed, Starting on Thu02/11/22 at 1059, Intra-Op Given 02/11/2022 10:59 AM CDT 5 mL Le ft Eye phenylephrine (MYDFRIN) 2.5 % ophthalmic solution 1 drop 1 drop, left eye, Every 5 min, First dose on Thu02/11/22 at 1030, For 3 doses, Pre-Op, Indications: Perioperative MydriasisIndications:Perioperative Mydriasis Given 02/11/2022 10:02 AM CDT 1 drop Given 02/11/2022 9:58 [...] % ophthalmic solution As needed, Starting on Thu02/11/22 at 1100, Intra-Op, Indications: Administration of Corneal AnesthesiaIndications:Administration of Corneal Anesthesia Given 02/11/2022 11:00 AM CDT 2 drops Left Eye tobramycin-dexAMETHasone (TOBRADEX) 0.3-0.1 % ophthalmic suspension As needed, Starting on Thu02/11/22 at 1100, Intra-Op Given 02/11/2022 11:00 AM CDT 2 drops Left Eye tropicamide (MYDRIACYL) 1 % ophthalmic solution 1 drop 1 drop, left eye, Every 5 min, First dose on Thu02/11/22 at 1030, For 3 doses, Pre-Op, Indications: Perioperative MydriasisIndications:Perioperative Mydriasis Given 02/11/2022 10:02 AM CDT 1 drop Given 02/11/2022 9:57 [...] reflect changes made after this encounter. vit G-T-zjrvfs-zinc-l utein (PreserVision Lutein) 226-90-0.8-5 mg capsuleIndication s:Eye [...] nebu lizer solution 2.5 mg 1 02/11/2022 Carrier Fluids for Secondary Infusion - 0.9% Sodium Chloride 2 02/11/2022 diphenhydrAMINE (BENADRYL) i njection 12.5 mg 1 02/11/2022 fentaNYL (SUBLIMAZE) preserv ative free injection 50 mcg 1 02/11/2022 HYDROmorphone (DILAUDID) injection 0.2 mg 1 02/11/2022 Lactated Ringer's (LR) infusion 1 lidocaine PF (XYLOCAINE) 10 mg/mL (1 %) preservative free injection 2-10 mg 1 02/11/2022 meperidine (DEMEROL) preserv ative free injection 12.5 mg 1 02/11/2022 naloxone (NARCAN) 0.4 mg/mL injection 0.04-0.4 mg 1 02/11/2022 ondansetron (ZOFRAN) injection 4 mg 1 02/11 prochlorperazine (COMPAZINE) injection 10 mg 1 02/11/2022 sodium chloride 0.9% flush 0.5-20 mL 3 04/2021 Nursing Count Last Ordered Date First Orde red Date DISCHARGE ACTIVITY 3 02/11/2022 DISCHARGE CALL PROVIDER 2 02/11/2022 OTHER FOLLOW UP 1 02/11/2022 Discharge Count Last Ordered Date First Orde red Date DISCHARGE PATIENT 1 02/11/2022 documented in this encounter Care Teams Rotary Pump Operator Relationship Specialty Start Date End Date Sylvia Dawson PA [address] [facility] [address] [place] [address] PCP - General Internal Medicine 01/05/20 Erica Rodrigues MD [address] [facility] [address] [place] [address] Radiation Oncologist Radiation Oncology 10/25/18 Gasper Kaba MD [address] [facility] [address] [place] [address] Surgeon Surgical Oncology 10/25/18 Brandy Aguirre, CARINA [address] [facility] [address] [place] [address] Nurse Practitioner Certified Clinical Nurse Specialist 10/25/18 Jo-Ann Morrow, PhD [address] [facility] [address] [place] [address] Nurse Practitioner Radiation Oncology 10/25/18 Christina Louis BOX TRUCK DRIVER [address] [facility] [address] [place] [address] Nurse Practitioner Medical Oncology 10/25/18 documented as of this encounter
--- OUTSIDE RECORDS SUMMARY | 2024-04-24 05:53 | XMS_ITS | Encounter Summary ---
Author Organization [facility] Address [address] [place] [address] Phone Care Team Providers Care Museum Archivist Name Role Phone Erica Rodrigues MD Unavailable Gasper Kaba MD Unavailable Brandy Aguirre SOFT MUD MOLDER Unavailable [phone] Jo-Ann Morrow PhD Unavailable [phone] Christina Louis CLASSIFICATION AND TREATMENT DIRECTOR Unavailable [phone] Sylvia Dawson Primary Care Provider [phone] Reason for Referral * Diagnostic Imaging (Routine) - Closed Specialty Diagnoses / Procedures Referred By Contac t Referred To Contact Diagnoses Rheumatoid 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 (CMS/HCC) (HCC) Procedures XR Hand Left 3 or More Views Patricia Martinez MD [address] [facility] [address] [place] [address] Phone: tel: fax: [facility] 1 [place] [address] Referral ID Status Reason Start Date Expiration Date Visits Re quested Visits Authorized [id number] Closed 05/06/2021 06/05/2022 1 1 HOIST OPERATOR * Diagnostic Imaging (Routine) - Closed Specialty Diagnoses / Procedures Referred By Contac t Referred To Contact Diagnoses Rheumatoid 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 (CMS/HCC) (HCC) Procedures XR Hand Right 3 or More Views Patricia Martinez MD [address] [facility] [address] [place] [address] Phone: tel: fax: [facility] 1 [facility] [place] [address] Referral ID Status Reason Start Date Expiration Date Visits Re quested Visits Authorized [id number] Closed 05/06/2021 06/05/2022 1 1 HOIST OPERATOR Encounter Details Date Type Department Care Team (Late st Contact Info) Description 05/06/2021 Orders Only [facility] Rheumatology [address] [facility] 5th [place] [address] [place] [address] Ximena Ellison, PHILIP Rheumatoid 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 (CMS/HCC) (HCC) (Primary Dx) Social History Tobacco [...] on file Legal Sex Female 3:42 AM SKIP HOIST OPERATOR Gender Identity Not on file Sexual Orientation Not on file 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 2. No new erosion or joint space narrowing in the hands and feet. Electronically signed by: French Webster M.D. Narrative 05/07/2021 3:01 PM SKIP HOIST OPERATOR EXAMINATION: XR HAND LEFT 3 OR MORE VIEWS, XR FOOT RIGHT 3 OR MORE VIEWS, XR FOOT LEFT 3 OR MORE VIEWS, XR HAND RIGHT 3 OR MORE VIEWS HISTORY: Rheumatoid arthritis FINDINGS: 3 view examinations of both hands and 3 view nonweightbearing examinations of both feet are performed. Comparison is made with studies from 02/28/2019. Hands: On the left, there is unchanged mild osteoarthritis at the first carpometacarpal joint and mild to moderate osteoarthritis at the finger DIP joints, worst at the index finger. There are similar findings in the right hand, with mild to moderate osteoarthritis at the basal joint of the thumb and the proximal and distal interphalangeal joints of the fingers. There is no fracture or erosion. Feet: There is a small left heel spur. There is mild bilateral first metatarsophalangeal osteoarthritis. No fracture or erosion is present in either foot. Procedure Note French Webster MD - 05/07/2021 EXAMINATION: XR HAND LEFT 3 OR MORE VIEWS, XR FOOT RIGHT 3 OR MORE VIEWS, XR FOOT LEFT 3 OR MORE VIEWS, XR HAND RIGHT 3 OR MORE VIEWS HISTORY: Rheumatoid arthritis FINDINGS: 3 view examinations of both hands and 3 view nonweightbearing examinations of both feet are performed. Comparison is made with studies from 02/28/2019. Hands: On the left, there is unchanged mild osteoarthritis at the first carpometacarpal joint and mild to moderate osteoarthritis at the finger DIP joints, worst at the index finger. There are similar findings in the right hand, with mild to moderate osteoarthritis at the basal joint of the thumb and the proximal and distal interphalangeal joints of the fingers. There is no fracture or erosion. Feet: There is a small left heel spur. There is mild bilateral first metatarsophalangeal osteoarthritis. No fracture or erosion is present in either foot. IMPRESSION: 1. 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 2. No new erosion or joint space narrowing in the hands and feet. Electronically signed by: French Webster M.D. us Patricia Martinez MD IMG XR PROCEDURES Final Resu lt * XR Hand Right 3 or More Views (05/07/2021 2:49 PM SKIP HOIST OPERATOR) Anatomical Region Laterality Modality Upper Extremities, Hand Right Computed Radiography 05/07/2021 3:01 PM SKIP HOIST OPERATOR Impressions 05/07/2021 3:01 PM SKIP HOIST OPERATOR 1. 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 2. No new erosion or joint space narrowing in the hands and feet. Electronically signed by: French Webster M.D. Narrative 05/07/2021 3:01 PM SKIP HOIST OPERATOR EXAMINATION: XR HAND LEFT 3 OR MORE VIEWS, XR FOOT RIGHT 3 OR MORE VIEWS, XR FOOT LEFT 3 OR MORE VIEWS, XR HAND RIGHT 3 OR MORE VIEWS HISTORY: Rheumatoid arthritis FINDINGS: 3 view examinations of both hands and 3 view nonweightbearing examinations of both feet are performed. Comparison is made with studies from 02/28/2019. Hands: On the left, there is unchanged mild osteoarthritis at the first carpometacarpal joint and mild to moderate osteoarthritis at the finger DIP joints, worst at the index finger. There are similar findings in the right hand, with mild to moderate osteoarthritis at the basal joint of the thumb and the proximal and distal interphalangeal joints of the fingers. There is no fracture or erosion. Feet: There is a small left heel spur. There is mild bilateral first metatarsophalangeal osteoarthritis. No fracture or erosion is present in either foot. Procedure Note French Webster MD - 05/07/2021 EXAMINATION: XR HAND LEFT 3 OR MORE VIEWS, XR FOOT RIGHT 3 OR MORE VIEWS, XR FOOT LEFT 3 OR MORE VIEWS, XR HAND RIGHT 3 OR MORE VIEWS HISTORY: Rheumatoid arthritis FINDINGS: 3 view examinations of both hands and 3 view nonweightbearing examinations of both feet are performed. Comparison is made with studies from 02/28/2019. Hands: On the left, there is unchanged mild osteoarthritis at the first carpometacarpal joint and mild to moderate osteoarthritis at the finger DIP joints, worst at the index finger. There are similar findings in the right hand, with mild to moderate osteoarthritis at the basal joint of the thumb and the proximal and distal interphalangeal joints of the fingers. There is no fracture or erosion. Feet: There is a small left heel spur. There is mild bilateral first metatarsophalangeal osteoarthritis. No fracture or erosion is present in either foot. IMPRESSION: 1. 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 2. No new erosion or joint space narrowing in the hands and feet. Electronically signed by: French Webster M.D. us Patricia Martinez MD IMG XR PROCEDURES Final Resu lt documented in this encounter Visit Diagnoses Diagnosis Rheumatoid 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 (CMS/HCC) (HCC)- Primary Rheumatoid 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 (CMS/HCC) (HCC) Bilateral foot pain documented in this encounter Care Teams Museum Archivist Relationship Specialty Start Date End Date Sylvia Dawson PA [address] [facility] [address] [place] [address] PCP - General Internal Medicine 01/05/20 Erica Rodrigues MD [address] [facility] [address] [place] [address] Radiation Oncologist Radiation Oncology 10/25/18 Gasper Kaba MD [address] [facility] [address] [place] [address] Surgeon Surgical Oncology 10/25/18 Brandy Aguirre CNS [address] [facility] [address] [place] [address] Nurse Practitioner Certified Clinical Nurse Specialist 10/25/18 Jo-Ann Morrow, PhD [address] [place], [place] [id number] Nurse Practitioner Radiation Oncology 10/25/18 Christina Louis, CLASSIFICATION AND TREATMENT DIRECTOR [address] [place], [place] [id number] Nurse Practitioner Medical Oncology 10/25/18 documented as of this encounter
--- OUTSIDE RECORDS SUMMARY | 2024-04-24 05:53 | XMS_ITS | Encounter Summary ---
Author Organization [facility] Address [address] [place] [address] Phone Care Team Providers Care Endband Cutter Hand Name Role Phone Erica Rodrigues MD Unavailable Gasper Kaba MD Unavailable [phone] Brandy Aguirre INSURANCE INSTRUCTOR Unavailable [phone] Jo-Ann Morrow PhD Unavailable [phone] Christina Louis KNOWLEDGE MANAGEMENT ADVISOR Unavailable [phone] Sylvia Dawson Primary Care Provider [phone] Reason for Referral * Diagnostic Imaging (Routine) - Closed Specialty Diagnoses / Procedures Referred By Contac t Referred To Contact Diagnoses Cystoid macular edema of both eyes Procedures OCT, Retina - OU - Both Eyes Thomas Hinojosa DO Phone: tel: fax: [facility] (All Locations) Referral ID Status Reason Start Date Expiration Date Visits Re quested Visits Authorized [id number] Closed 01/06/2022 02/05/2023 1 1 Reason for Visit * Reason Comments Cystoid macular edema Encounter Details Date Type Department Care Team (Late st Contact Info) Description 01/06/2022 1:10 PM CDT Office Visit [facility] Ophthalmology [facility] 6th [place] [id number] Jessy Adaem MD [address] [facility] [address] [place] [address] Cystoid macular edema of both eyes (Primary [...] on file Legal Sex Female 3:42 AM WASTEWATER PLANT OPERATOR Gender Identity Not on file Sexual Orientation Not on file 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 Assessment/Plan Diagnoses and all orders for [...] means may need to proceed to PPV. Orders: - OCT, Retina - OU - [...] Dispositions Return in about 4 weeks (around 02/03/2022) for Dilated exam OU, OCT OU. I have examined the patient, reviewed and edited the chart as needed, and discussed the findings, diagnosis and plan with the resident. I agree with the findings, diagnosis, plan that we have createdand documented. Jessy Adame MD documented in this encounter Miscellaneous Notes * Assessment & Plan Note - Jessy Adame MD - 01/06/2022 1:39 PM CDT Associated Problem(s): Cystoid macular edema [...] means may need to proceed to PPV. documented in this encounter Plan of Treatment Not on file documented as of this encounter Procedures Procedure Name Priority Date/Time Associated Diagnosis Comments OCT, RETINA - OU - BOTH EYES Routine 01/06/2022 1:39 PM CDT Cystoid macular edema of both eyes documented in this encounter Results * OCT, Retina - OU - Both Eyes (01/06/2022 1:39 PM CDT) Anatomical Region Laterality Modality Head Optical Coherenc e Tomography Narrative 01/06/2022 1:39 PM CDT Right Eye Quality was good. Scan locations included subfoveal. Progression has been stable. Findings include abnormal foveal contour, lamellar hole. Left Eye Quality was good. Progression has been stable. Findings include normal observations. Notes NO ME OU. [facility] OPHTH TOMOGRAPHY Final Result documented in this encounter Visit Diagnoses Diagnosis Cystoid macular edema of both eyes- Primary Cystoid macular degeneration of retina documented in this encounter Eye Exam Visual Acuity (Snellen - Linear) Right eye Left eye Dist sc 20/20 20/30 +2 Tonometry (Tonopen, 12:56 PM) Right eye Left eye Pressure 16 15 Pupils Dark Light Shape React APD Right eye 5 4 Round Brisk None Left eye 5 4 Round Brisk None Neuro/Psych Oriented x3: Yes Mood/Affect: Normal Dilation Both eyes: 1% Tropicamide @ 12:57 PM External Exam Right eye Left eye [...] Periphery flat, vit syn flat, vit syn Care Teams Endband Cutter Hand Relationship Specialty Start Date End Date Sylvia Dawson PA [address] [facility] [address] [place] [address] PCP - General Internal Medicine 01/05/20 Erica Rodrigues MD [address] [place] [address] Radiation Oncologist Radiation Oncology 10/25/18 Gasper Kaba MD [address] [place] [address] Surgeon Surgical Oncology 10/25/18 Brandy Aguirre, CARINA [address] [place] [address] Nurse Practitioner Certified Clinical Nurse Specialist 10/25/18 Jo-Ann Mrorow, PhD [address] [place] [address] Nurse Practitioner Radiation Oncology 10/25/18 Christina Louis KNOWLEDGE MANAGEMENT ADVISOR [address] [place] [address] Nurse Practitioner Medical Oncology 10/25/18 documented as of this encounter
--- OUTSIDE RECORDS SUMMARY | 2024-04-24 05:53 | XMS_ITS | Encounter Summary ---
Author Organization [facility] [employer] [facility] Address [address] [place] [address] Phone Care Team Providers Care Rejector Name Role Phone Erica Rodrigues MD Unavailable Gasper Kaba MD Unavailable Brandy Aguirre COBOL PROGRAMMER Unavailable [phone] Jo-Ann Morrow PhD Unavailable [phone] Christina Louis STONE REPAIRER Unavailable [phone] Sylvia Dawson Primary Care Provider [phone] Reason for Referral * Diagnostic Imaging (Routine) - Closed Specialty Diagnoses / Procedures Referred By Contac t Referred To Contact Diagnoses Cystoid macular edema of both eyes Procedures OCT, Retina - OU - Both Eyes Jessy Adame MD [address] [facility] 6 [place] [address] Phone: tel: fax: [facility] (All Locations) Referral ID Status Reason Start Date Expiration Date Visits Re quested Visits Authorized [id number] Closed 12/11/2021 01/10/2023 1 1 Reason for Visit * Reason Comments Cystoid macular edema of both eyes Encounter Details Date Type Department Care Team (Late st Contact Info) Description 12/11/2021 9:50 AM CDT Office Visit [facility] Ophthalmology [address] [facility] 6th [place] [address] Jessy Adame MD [address] [facility] 6 [place], [place] [id number] Cystoid macular edema of both eyes (Primary [...] on file Legal Sex Female 3:42 AM CUSTOM FRAME ASSEMBLER Gender Identity Not on file Sexual Orientation Not on file 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 file Not on file Not on file documented as of this encounter Ordered Prescriptions Prescription Sig Dispense Quantity Refills Last Filled Start Date End Date difluprednate (DUREZOL) 0.05 % dropsIndications:C ystoid macular edema of both eyes Administer 1 drop into both eyes daily for 14 days 10 mL 3 12/11/2021 2 documented in this encounter Progress Notes * Jessy Adame MD - 12/11/2021 9:50 AM CDT ASSESSMENT/ORDERS/PROCEDURES PERFORMED TODAY Chief Complaint Patient presents with Cystoid macular edema of both eyes HPI 4 week FU Pt reports some pain in eye feels like strain vision is better in OS than OD Denies: new FF Ocular drops:Difluprednate BID OU methotrexate Plaquenil and sulfasalazine Last edited by Mary Mcgee on 12/11/2021 9:47 AM. Assessment/Plan Diagnoses and all orders for this visit: Cystoid macular edema of both eyes (Primary) Assessment & Plan: History of at a distance a history of breast cancer, required Arimidex, developed rheumatoid arthritis. Currently on methotrexate Plaquenil and sulfasalazine CME improved/stable OU, we have been decreasing durezol slowly and she is on it BID OU for the lasttwo weeks. Will decrease to daily for 2 [...] 0.05 % drops; Administer 1 drop into both eyes daily for 14 days OCT, Retina - OU - Both Eyes [...] Dispositions Return in about 4 weeks (around 01/08/2022) for Dilated exam OU, OCT OU. documented in this encounter Miscellaneous Notes * Assessment & Plan Note - Jessy Adame MD - 12/11/2021 10:25 AM CDT Associated Problem(s): Cystoid macular edema of both eyes History of at a distance a history of breast cancer, required Arimidex, developed rheumatoid arthritis. Currently on methotrexate Plaquenil and sulfasalazine CME improved/stable OU, we have been decreasing durezol slowly and she is on it BID OU for the lasttwo weeks. Will decrease to daily for 2 [...] RETINA - OU - BOTH EYES Routine 12/11/2021 10:24 AM CDT Cystoid macular edema of both eyes documented in this encounter Results * OCT, Retina - OU - Both Eyes (12/11/2021 10:24 AM CDT) Anatomical Region Laterality Modality Head Optical Coherenc e Tomography Narrative 12/11/2021 10:24 AM CDT Right Eye Quality was good. [...] of both eyes Administer 1 drop into both eyes 3 (three) times a day for 14 days, THEN 1 drop 2 (two) times a day. 11/13/2021 12/11/2021 documented as of this encounter Eye Exam Visual Acuity (Snellen - Linear) Right eye Left eye Dist sc 20/50 -2 20/40 -1 Dist ph sc 20/30 -2 Burred but can read Tonometry (Tonopen, 9:52 AM) Right eye Left eye Pressure 20 21 Pupils Dark Light Shape React APD Right eye 5 4 Round Brisk None Left eye 5 4 Round Brisk None Neuro/Psych Oriented x3: Yes Mood/Affect: Normal Dilation Both eyes: 1% Tropicamide @ 9:52 AM External Exam Right eye [...] vit syn flat, vit syn Care Teams Rejector Relationship Specialty Start Date End Date Sylvia Dawson PA [address] [facility] [address] [place] [address] PCP - General Internal Medicine 01/05/20 Erica Rodrigues MD [address] [facility] [address] [address] Radiation Oncologist Radiation Oncology 10/25/18 Gasper Kaba MD [address] [facility] [address] [facility] [address] [place] [address] Surgeon Surgical Oncology 10/25/18 Brandy Aguirre, COBOL PROGRAMMER [address] [facility] [address] [address] Nurse Practitioner Certified Clinical Nurse Specialist 10/25/18 Jo-Ann Morrow, PhD [address] [facility] [address] [place] [address] Nurse Practitioner Radiation Oncology 10/25/18 Christina Louis, STONE REPAIRER [address] [facility] [address] [facility] [address] [place] [address] Nurse Practitioner Medical Oncology 10/25/18 documented as of this encounter
--- OUTSIDE RECORDS SUMMARY | 2024-04-24 05:53 | XMS_ITS | Encounter Summary ---
Author Organization [facility] Address [address] [facility] [address] [place] [address] Care Team Providers Care Touch Up Edger Name Role Phone Erica Rodrigues MD Unavailable Gasper Kaba MD Unavailable Brandy Aguirre ACTIVATED SLUDGE OPERATOR Unavailable [phone] Jo-Ann Morrow PhD Unavailable Christina Louis LINEWORKER Unavailable [phone] Sylvia Dawson Primary Care Provider [phone] Encounter Details Date Type Department Care Team (Late st Contact Info) Description 05/29/2021 Orders Only [facility] Family Medicine [address] [place] [address] Sylvia Dawson PA [address] [facility] [address] [place] [address] Social History Tobacco Use Types [...] on file Legal Sex Female 3: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 DIGITAL MARKETING OFFICER Gender Identity Not on file Sexual Orientation Not on file 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 Not on file Not on file documented as of this encounter Ordered Prescriptions Prescription Sig Dispense Quantity Refills Last Filled Start Date End Date amoxicillin (AMOXIL) 875 mg tablet Take 1 tablet (875 mg total) by mouth 2 (two) times a day for 10 days 20 tablet 05/29/2021 06/08/2021 documented in this encounter Plan of Treatment Not on file documented as of this encounter Visit Diagnoses Not on filedocumented in this encounter Care Teams Touch Up Edger Relationship Specialty Start Date End Date Sylvia Dawson PA [address] [address] PCP - General Internal Medicine 01/05/20 Erica Rodrigues MD [address] [facility] [address] [place] [address] Radiation Oncologist Radiation Oncology 10/25/18 Gasper Kaba MD [address] [facility] [address] [place] [address] Surgeon Surgical Oncology 10/25/18 Brandy Aguirre CNS [address] [facility] [address] [place] [address] Nurse Practitioner Certified Clinical Nurse Specialist 10/25/18 Jo-Ann Morrow, PhD [address] [facility] [address] [place] [address] Nurse Practitioner Radiation Oncology 10/25/18 Christina Louis NP [address] [facility] [address] [place] [address] Nurse Practitioner Medical Oncology 10/25/18 documented as of this encounter
--- OUTSIDE RECORDS SUMMARY | 2024-04-24 05:53 | XMS_ITS | Encounter Summary ---
Author Organization [facility] Address [address] [place] [address] Phone Care Team Providers Care Fiberglass Auto Body Repairer Name Role Phone Erica Rodrigues MD Unavailable Gasper Kaba MD Unavailable [phone] Brandy Aguirre CELLULOID TRIMMER Unavailable [phone] Jo-Ann Morrow PhD Unavailable [phone] Christina Louis AIR ANALYST Unavailable [phone] Sylvia Dawson Primary Care Provider [phone] Reason for Visit * Reason Onset Date Comments Scheduling Appointments 08/09/2021 Encounter Details Date Type Department Care Team (Late st Contact Info) Description 08/09/2021 Telephone [facility] Ophthalmology [address] [place], [place] [id number] Jessy Adame MD [address] [id number] Scheduling Appointments Social History Tobacco Use Types [...] on file Legal Sex Female 3:42 AM CUSTOMER CARE SPECIALIST Gender Identity Not on file Sexual Orientation Not on file 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 2nd opinion Were Notes requested? Yes Additional comments: documented in this encounter Plan of Treatment Not on file documented as of this encounter Visit Diagnoses Not on filedocumented in this encounter Care Teams Fiberglass Auto Body Repairer Relationship Specialty Start Date End Date Sylvia Dawson PA [address] [facility] [address] [place] [address] PCP - General Internal Medicine 01/05/20 Erica Rodrigues MD [address] [facility] [address] [place] [address] Radiation Oncologist Radiation Oncology 10/25/18 Gasper Kaba MD [address] [place] [address] Surgeon Surgical Oncology 10/25/18 Brandy Aguirre, CARINA [address] [place] [address] Nurse Practitioner Certified Clinical Nurse Specialist 10/25/18 Jo-Ann Morrow, PhD [address] [place] [address] Nurse Practitioner Radiation Oncology 10/25/18 Christina Louis AIR ANALYST [address] [place] [address] Nurse Practitioner Medical Oncology 10/25/18 documented as of this encounter
--- OUTSIDE RECORDS SUMMARY | 2024-04-24 05:53 | XMS_ITS | Encounter Summary ---
Author Organization [facility] Address [address] [facility] [address] [place] [address] Care Team Providers Care Agriculture Manager Name Role Phone Erica Rodrigues MD Unavailable Gasper Kaba MD Unavailable Brandy Aguirre FINANCIAL CENTER MANAGER Unavailable Jo-Ann Morrow PhD Unavailable [phone] Christina Louis IS/IT PROJECT MANAGER Unavailable [phone] Sylvia Dawson Primary Care Provider [phone] Reason for Visit * Reason Comments 6 month and labs Encounter Details Date Type Department Care Team (Latest Contact Info) Description 08/26/2021 9:00 AM CDT Office Visit [facility] Family Medicine [address] [facility] [address] [place] [address] Sylvia Dawson PA [address] [facility] [address] [place] [address] Mixed hyperlipidemia (Primary Dx); 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 (CMS/HCC) (HCC); Hypertension, essential; BMI 24.0-24.9, adult; Stress; Moderate episode of recurrent major depressive disorder (HCC) Social History Tobacco Use Types Packs/Day [...] on file Legal Sex Female 3:42 AM MEDIA ARTS PROFESSOR Gender Identity Not on file Sexual Orientation Not on file 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 Not on file Not on file Not on file documented as of this encounter Last Filed Vital Signs Vital Sign Reading Time Taken Comments Blood Pressure 120/70 08/26/2021 9:16 AM CDT Pulse 51 08/26/2021 9:16 AM CDT Temperature 36.9 ??C (98.5 ??F) 08/26/2021 9:16 AM CD T Respiratory Rate - - Oxygen Saturation 97% 08/26/2021 9:16 AM CDT Inhaled Oxygen Concentration - - Weight 63.6 kg (140 lb 4.8 oz) 08/26/2021 9:16 A M CDT Height 160 cm (5' 3 ) 08/26/2021 9:16 AM CDT Body Mass Index 24.85 08/26/2021 9:16 AM CDT documented in this encounter Ordered Prescriptions Prescription Sig Dispense Quantity Refills Last Filled Start Date End Date FLUoxetine (PROzac) 20 mg capsuleIndications :Stress Take 1 capsule (20 mg total) by mouth daily 90 capsule 1 08/26/2021 2 documented in this encounter Progress Notes * Sylvia Dawson PA - 08/26/2021 9:00 AM CDT Images from the original note were not included. Subjective/Objective Patient ID: Yesika Denney is a 61 y.o. female. Chief Complaint 6 month and labs HPI Patient presents to followup chronic concerns. Had cataract surgery and had complication of cystoic macular edema. Following with Dr. Adame at [facility] and currently on steroid drops. Due to recheck lipids. Rhuem -- Stable -- Last seen last week. Plaquenil and MTX, sulfasalazine. HTN - lisinopril 40mg and tenormin 25 After her eye surgery she has noted that the readings have been systolic below 100 so has only beentaking the lisinopril 20mg when she has a bad night sleep but that has only been a handful of times. Encouraged to take reading this next week and then call to determine if even needs lisinopril of even 5 or 10daily. Mood -- Prozac 20mg Tried to ween and had hotflashes so restarted. Mamm -screening due again after 02/19/2022 Tdap - needs (left without getting so will address at next visit) Shingrix x 2 done FLU UTD Colonoscopy - 02/2020-->2029 Review of Systems See HPI Vitals: 08/26/21 0916 BP: 120/70 BP Location: Left arm Patient Position: Sitting Pulse: 51 Temp: 36.9 ??C (98.5 ??F) TempSrc: Oral SpO2: 97% Weight: 63.6 kg (140 lb 4.8 oz) Height: 160 cm (5' 3 ) Physical [...] Diagnoses and all orders for this visit: Mixed hyperlipidemia (E78.2) (Primary) Assessment & Plan: Encouraged patient to follow low fat/low chol diet like the Mediterranean diet. Increase good fats in the diet. Increase exercise. Monitor labs as needed. Patient is wanting to manage with diet control. 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 BMI 24.0-24.9, adult (Z68.24) Assessment & Plan: Weight/BMI is in healthy range. Continue healthy lifestyle to maintain. Stress (F43.9) - FLUoxetine (PROzac) 20 mg capsule; Take 1 capsule (20 mg total) by mouth daily Moderate episode of recurrent major depressive disorder (HCC) (F33.1) Assessment & Plan: Stable with Prozac *This note is dictated using [employer] voice recognition software, variances in spelling and vocabulary are possible and unintentional.* Sylvia Dawson PA-C documented in this encounter Miscellaneous Notes * Assessment & Plan Note - Sylvia Dawson PA - 08/26/2021 10:13 AM CDT Associated Problem(s): Moderate episode of recurrent major depressive disorder (HCC) Stable with Prozac * Assessment & Plan Note - Sylvia Dawson PA - 08/26/2021 10:12 AM CDT Associated Problem(s): Hypertension, essential Bp is stable/in [...] low-dose like 5-10 mg of the lisinopril. * Assessment & Plan Note - Sylvia Dawson PA - 08/26/2021 10:12 AM CDT Associated Problem(s): Mixed hyperlipidemia Encouraged patient to follow low fat/low chol diet like the Mediterranean diet. Increase good fats in the diet. Increase exercise. Monitor labs as needed. Patient is wanting to manage with diet control. Due to recheck labs as the LDL has been very high and she is declining statin treatment * Assessment & Plan Note - Sylvia Dawson PA - 08/26/2021 10:12 AM CDT Associated Problem(s): Rheumatoid arthritis with negative rheumatoid factor (HCC) Continue per rheumatoid * Assessment & Plan Note - Brandi Hernandez MA - 08/26/2021 9:18 AM CDT Associated Problem(s): BMI 24.0-24.9, adult (Resolved 04/22/2022) Weight/BMI is in healthy range. Continue healthy lifestyle to maintain. 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 (CMS/HCC) (HCC) Hypertension, essential Unspecified essential hypertension BMI 24.0-24.9, adult Stress Other psychological or physical stress, not elsewhere classified Moderate episode of recurrent major depressive disorder (HCC) documented in this encounter Discontinued Medications Medication Sig Discontinue Reason Start Date End Da te FLUoxetine (PROzac) 20 mg capsuleIndications:Stres s,Recurrent major depressive disorder, remission status unspecified (HCC) Take 1 capsule (20 mg total) by mouth daily Reorder 02/26/2021 08/26/2021 documented as of this encounter Care Teams Agriculture Manager Relationship Specialty Start Date End Date Sylvia Dawson PA [address] [facility] [address] [place] [address] PCP - General Internal Medicine 01/05/20 Erica Rodrigues MD [address] [place] [address] Radiation Oncologist Radiation Oncology 10/25/18 Gasper Kaba MD [address] # LL [facility] [address] [place] [address] Surgeon Surgical Oncology 10/25/18 Brandy Aguirre, CARINA [address] [place] [address] Nurse Practitioner Certified Clinical Nurse Specialist 10/25/18 Jo-Ann Morrow, PhD [address] [place] [address] Nurse Practitioner Radiation Oncology 10/25/18 Christina Louis IS/IT PROJECT MANAGER [address] [place] [address] Nurse Practitioner Medical Oncology 10/25/18 documented as of this encounter
--- OUTSIDE RECORDS SUMMARY | 2024-04-24 05:53 | XMS_ITS | Encounter Summary ---
Author Organization [facility] Address [address] [facility] [address] [place] [address] Care Team Providers Care Service Writer Name Role Phone Erica Rodrigues MD Unavailable Gasper Kaba MD Unavailable Brandy Aguirre CONE CLEANER Unavailable [phone] Jo-Ann Morrow PhD Unavailable Christina Louis WOOD AND HARDWARE OUTFITTER Unavailable [phone] Sylvia Dawson Primary Care Provider [phone] Reason for Visit * Reason Comments Rapid Heart Rate 6 month fu Encounter Details Date Type Department Care Team (Late st Contact Info) Description 06/13/2021 8:45 AM CHICKEN DRESSER Office Visit [facility] Cardiology [address] [facility] [address] [facility] [address] [place] [address] Harpal De León MD [address] [place], [place] [id number] Atrial tachycardia (CMS/HCC) (HCC) (Primary Dx) Social History Tobacco [...] on file Legal Sex Female 3:42 AM CHICKEN DRESSER Gender Identity Not on file Sexual Orientation Not on file 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 on file Not on file Not on file documented as of this encounter Last Filed Vital Signs Vital Sign Reading Time Taken Comments Blood Pressure 110/76 06/13/2021 8:39 AM CHICKEN DRESSER Pulse 81 06/13/2021 8:39 AM CHICKEN DRESSER Temperature - - Respiratory Rate - - Oxygen Saturation 97% 06/13/2021 8:39 AM CHICKEN DRESSER Inhaled Oxygen Concentration - - Weight 64 kg (141 lb) 06/13/2021 8:39 AM CHICKEN DRESSER Height 160 cm (5' 3 ) 06/13/2021 8:39 AM CHICKEN DRESSER Body Mass Index 24.98 06/13/2021 8:39 AM CHICKEN DRESSER documented in this encounter Progress Notes * Harpal De León MD - 06/13/2021 8:45 AM CST [facility] FOLLOW UP 06/13/2021 Yesika Denney is a 60 y.o. female who presents for follow up [...] between appointment and today. The patient presents to the office today for scheduled follow-up. Patient had some lab data done bythe PCP in April. Her LDL cholesterol is very high. Had a long discussion with her about management of this. She is wishing to avoid medical therapy for this. Her PCP is managing this and is awareof these lipid results. REVIEW OF SYSTEMS General ROS: negative for [...] and rash HOME MEDICATIONS Current Outpatient Medications: ??? albuterol HFA (ProAir HFA) 90 mcg/actuation inhaler, Inhale 2 puffs every 4 (four) hours as needed for wheezing or shortness of breath, Disp: 8.5 g, Rfl: 0 ??? aspirin 81 mg enteric coated tablet, Take 81 mg by mouth 2 (two) times a week, Disp: , Rfl: ??? atenoloL (TENORMIN) 25 mg tablet, Take 1 tablet (25 mg total) by mouth daily, Disp: 90 tablet, Rfl: 1 ??? FLUoxetine (PROzac) 20 mg capsule, Take 1 capsule (20 mg total) by mouth daily, Disp: 90 capsule, Rfl: 1 ??? folic acid (FOLVITE) 1 mg tablet, TAKE 2 TABLETS DAILY, Disp: 180 tablet, Rfl: 3 ??? hydrOXYchloroQUINE (PLAQUENIL) 200 mg tablet, TAKE 1 TABLET DAILY, Disp: 90 tablet, Rfl: 2 ??? lisinopriL (PRINIVIL,ZESTRIL) 40 mg tablet, Take 1 tablet (40 mg total) by mouth daily, Disp: 90 tablet, Rfl: 1 ??? methotrexate 2.5 mg tablet, TAKE 8 TABLETS BY MOUTH ONCE WEEKLY, Disp: 96 tablet, Rfl: 0 ??? predniSONE (DELTASONE) 10 mg tablet, , Disp: , Rfl: ??? sulfaSALAzine EN (AZULFIDINE EN) 500 mg EC tablet, Take 2 tablets (1,000 mg total) by mouth 2 (two) times a day, Disp: 360 tablet, Rfl: 1 ??? valACYclovir (Valtrex) 500 mg tablet, Take 1 tablet (500 mg total) by mouth daily, Disp: 90 tablet, Rfl: 2 LABS AND OTHER DIAGNOSTIC TESTS Lab Results Component Value Date CHOL 318 (H) 04/18/2021 CHOL 331 (H) 01/18/2021 CHOL 272 (H) 08/28/2020 Lab Results Component Value Date HDL 101 01/18/2021 HDL 90 08/28/2020 HDL 76 02/17/2020 Lab Results Component Value Date LDLCALC 204 (H) 01/18/2021 LDLCALC 168 (H) 08/28/2020 LDLCALC 162 (H) 02/17/2020 Lab Results Component Value Date TRIG 120 04/18/2021 TRIG 149 01/18/2021 TRIG 83 08/28/2020 No results found for: CHOLHDL Lab Results Component Value Date WBC 6.5 04/18/2021 HGB 13.9 04/18/2021 HCT 41.0 04/18/2021 MCV 103.5 (H) 04/18/2021 PLT 229 04/18/2021 No lab exists for component: LABALBU PHYSICAL EXAM Vitals BP 110/76 (BP Location: Left arm, Patient Position: Sitting) Pulse 81 Ht 160 cm (5' 3 ) Wt 64 kg (141 lb) LMP (LMP Unknown) SpO2 97% BMI 24.98 kg/m?? Physical Examination: General appearance - alert, [...] skin lesions noted ASSESSMENT Ectopic atrial tachycardia PLAN/RECOMMENDATIONS No adjustments in medical regimen today Follow-up annually or p.r.n. Harpal De León MD KEN DRESSER documented in this encounter Plan of Treatment Not on file documented as of this encounter Visit Diagnoses Diagnosis Atrial tachycardia (HCC)- Primary Other specified cardiac dysrhythmias documented in this encounter Care Teams Service Writer Relationship Specialty Start Date End Date Sylvia Dawson PA [address] [facility] [address] [place] [address] PCP - General Internal Medicine 01/05/20 Erica Rodrigues MD [address] [facility] [address] [place] [address] Radiation Oncologist Radiation Oncology 10/25/18 Gasper Kaba MD [address] LL [facility] [address] [place] [address] Surgeon Surgical Oncology 10/25/18 Brandy Aguirre CNS [address] [facility] [address] [place] [address] Nurse Practitioner Certified Clinical Nurse Specialist 10/25/18 Jo-Ann Morrow, PhD [address] [facility] [address] [place] [address] Nurse Practitioner Radiation Oncology 10/25/18 Christina Louis WOOD AND HARDWARE OUTFITTER [address] [facility] [address] [place] [address] Nurse Practitioner Medical Oncology 10/25/18 documented as of this encounter
--- OUTSIDE RECORDS SUMMARY | 2024-04-24 05:53 | XMS_ITS | Encounter Summary ---
Author Organization [facility] Address [address] [facility] [address] [place] [address] Care Team Providers Care Spot Welder Name Role Phone Erica Rodrigues MD Unavailable Gasper Kaba MD Unavailable Brandy Aguirre HOT BLASTER Unavailable [phone] Jo-Ann Morrow PhD Unavailable [phone] Christina Louis BRANCH STORE MANAGER Unavailable [phone] Sylvia Dawson Primary Care Provider [phone] Reason for Visit * Reason Onset Date Comments Jaw Pain is worse 05/27/2021 Encounter Details Date Type Department Care Team (Late st Contact Info) Description 05/27/2021 Telephone [facility] Family Medicine [address] [place] [address] Sylvia Dawson PA [address] [facility] [address] [address] [place] [address] Jaw Pain is worse Social History Tobacco Use Types Packs/Day Years [...] on file Legal Sex Female 3:42 AM BACKREST ASSEMBLER Gender Identity Not on file Sexual Orientation Not on file 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 Left a detail message. REST ASSEMBLER * Telephone Encounter - Sylvia Dawson PA - 05/29/2021 10:35 PM BACKREST ASSEMBLER I will send out Amoxil. If sxs worsen, or don't resolve, will need to be seen in the office. REST ASSEMBLER * Telephone Encounter - Brandi Hernandez MA - 05/27/2021 3:02 PM CST ... REST ASSEMBLER * Telephone Encounter - Nava Thakkar - 05/27/2021 1:42 PM CST Yesika Denney is still having jaw pain and now its traveling to her ear and down into her neck. Can you call in a Rx or should she be seen in the office. REST ASSEMBLER documented in this encounter Plan of Treatment Not on file documented as of this encounter Visit Diagnoses Not on filedocumented in this encounter Care Teams Spot Welder Relationship Specialty Start Date End Date Sylvia Dawson PA [address] [facility] [address] [address] [place] [address] PCP - General Internal Medicine 01/05/20 Erica Rodrigues MD [address] [place] [address] Radiation Oncologist Radiation Oncology 10/25/18 Gasper Kaba MD [address] [place] [address] Surgeon Surgical Oncology 10/25/18 Brandy Aguirre CNS [address] [place] [address] Nurse Practitioner Certified Clinical Nurse Specialist 10/25/18 Jo-Ann Morrow, PhD [address] [place] [address] Nurse Practitioner Radiation Oncology 10/25/18 Christina Louis BRANCH STORE MANAGER [address] [place] [address] Nurse Practitioner Medical Oncology 10/25/18 documented as of this encounter
--- OUTSIDE RECORDS SUMMARY | 2024-04-24 05:53 | XMS_ITS | Encounter Summary ---
Author Organization [facility] Healthcare Address [address] [place] [address] Care Team Providers Care Learning Center Instructor Name Role Phone Erica Rodrigues MD Unavailable Gasper Kaba MD Unavailable [phone] Brandy Aguirre EGG PACKER Unavailable [phone] Jo-Ann Morrow PhD Unavailable Christina Louis SCALE SHOOTER Unavailable [phone] Sylvia Dawson Primary Care Provider [phone] Reason for Referral * Diagnostic Imaging (Routine) - Closed Specialty Diagnoses / Procedures Referred By Niranjan farrell Referred To Contact Diagnoses Bronchiolitis Procedures XR Chest Pa Lateral 2 Views Jessenia Reyes MD [address] [place] [address] Phone: tel: fax: [address] [phone] Referral ID Status Reason Start Date Expiration Date Visits Re quested Visits Authorized [id number] Closed 12/09/2021 01/08/2023 1 1 * Diagnostic Imaging (Routine) - Canceled Specialty Diagnoses / Procedures Referred By Niranjan farrell Referred To Contact Diagnoses Bronchiolitis Procedures X-ray chest 2 views Jessenia Reyes MD [address] [place] [address] Phone: tel: fax: [address] [phone] Referral ID Status Reason Start Date Expiration Date V isits Requested Visits Authorized [id number] Canceled 06/11/2021 2022 1 1 Reason for Visit * Diagnostic Imaging (Routine) - Canceled Specialty Diagnoses / Procedures Referred By Contac t Referred To Contact Diagnoses Bronchiolitis Procedures X-ray chest 2 views Jessenia Reyes MD [address] [place] [address] Phone: tel: fax: [address] [phone] Referral ID Status Reason Start Date Expiration Date V isits Requested Visits Authorized [id number] Canceled 06/11/2021 2022 1 1 Encounter Details Date Type Department Care Team (Latest Contact Info) Description 12/09/2021 2:15 PM CDT - 12/09/2021 2:16 PM CDT Hospital Encounter [facility] Diagnostic Imaging [address] [place] [id number] Bronchiolitis Discharge Disposition: Discharge to home or self [...] on file Legal Sex Female 3:42 AM DAIRY BACTERIOLOGIST Gender Identity Not on file Sexual Orientation Not on file 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 Not on file Not on file documented as of this encounter Medications at Time of Discharge albuterol HFA (ProAir HFA) 90 mcg/actuation inhaler Inhale 2 puffs every 4 (four) hours as needed for wheezing or shortness of breath 8.5 g 05/15/2020 2 aspirin 81 mg enteric coated tabletIndication s:can't recall why they put her on this Take 1 tablet (81 mg total) by mouth 2 (two) times a week and Thu 2 atenoloL (TENORMIN) 25 mg tablet TAKE 1 TABLET(25 MG) BY MOUTH DAILY 90 tablet 1 09/16/2021 2 difluprednate (DUREZOL) 0.05 % dropsIndications :Cystoid macular edema of both eyes Administer 1 drop into both eyes 3 (three) times a day for 14 days, THEN 1 drop 2 (two) times a day. 10 mL 11 11/13/2021 2 FLUoxetine (PROzac) 20 mg capsuleIndicatio ns:Stress Take 1 capsule (20 mg total) by mouth daily 90 capsule 1 08/26/2021 2 folic acid (FOLVITE) 1 mg tablet Take 2 tablets (2,000 mcg total) by mouth daily 180 tablet 3 09/16/2021 3 hydrOXYchloroQUI NE (PLAQUENIL) 200 mg tablet Take 1 tablet (200 mg total) by mouth daily 90 tablet 2 07/10/2021 3 lisinopriL (PRINIVIL,ZESTRI L) 40 mg tabletIndication s:Hypertension, essential TAKE 1 TABLET DAILY 90 tablet 1 08/06/2021 2 methotrexate 2.5 mg tablet TAKE 8 TABLETS BY MOUTH ONCE A WEEK 96 tablet 08/28/2021 2 sulfaSALAzine EN (AZULFIDINE EN) 500 mg EC tablet TAKE 2 TABLETS TWO TIMES A DAY 360 tablet 1 10/09/2021 2 valACYclovir (Valtrex) 500 mg tabletIndication s:Recurrent cold sores Take 1 tablet (500 mg total) by mouth daily 90 tablet 2 05/22/2021 2 documented as of this encounter Discharge Disposition Disposition Code Departure Means Destination Discharge to home or self care documented in this encounter Plan of Treatment Scheduled Orders Name Type Priority Associated Diagnoses Orde r Schedule X-ray chest 2 views Imaging Schedule Routine, Read Routine (OP Routine) Bronchiolitis Once for 1 Occurrences starting 12/09/2021 until 12/09/2021 documented as of this encounter Procedures Procedure Name Priority Date/Time Associated Diagnosis Comments XR CHEST PA LATERAL 2 VIEWS Schedule Routine, Read Routine (OP Routine) 12/09/2021 2:35 PM CDT Bronchiolitis documented in this encounter Results * XR Chest Pa Lateral 2 Views (12/09/2021 2:35 PM CDT) Anatomical Region Laterality Modality Body, Chest N/A Computed Radiogr aphy 12/11/2021 8:22 AM CDT Narrative 12/11/2021 8:23 AM CDT EXAM DESCRIPTION: ?? XR CHEST PA LATERAL 2 VIEWS REASON FOR STUDY: Bronchiolitis Follow up post covid-19 in Apr 2020. Patient states still has fatigue but no SOB ?? TECHNIQUE: ?? Frontal ??and lateral radiographic views of the chest acquired. COMPARISON: ?? Chest CT 10/08/2020. FINDINGS: LUNGS/PLEURA: ?? No focal consolidation or pneumothorax. No pleural effusion. ?? The bronchiectasis as seen on the chest CT is not apparent by radiography. HEART/MEDIASTINUM: ?? Heart size is normal. Normal mediastinal and hilar contours. HARDWARE/LINES/TUBES: ?? None. BONES: ?? No acute findings. OTHER: ?? No other significant finding. IMPRESSION: ?? No acute cardiopulmonary abnormality. THIS IS AN ELECTRONICALLY VERIFIED FINAL REPORT 12/11/2021 8:23 AM - Electronically signed by ??Isaak Watson M.D. CH: D: ??12/11/2021 8:23 AM T: ??12/11/2021 8:23 AM Report ID: [id number] Reading Location: ??[id number] Procedure Note Isaak Watson Jr., MD - 12/11/2021 EXAM DESCRIPTION: XR CHEST PA LATERAL 2 VIEWS REASON FOR STUDY: Bronchiolitis Follow up post covid-19 in Apr 2020. Patient states still has fatigue butno SOB TECHNIQUE: Frontal and lateral radiographic views of the chestacquired. COMPARISON: Chest CT 10/08/2020. FINDINGS: LUNGS/PLEURA: No focal consolidation or pneumothorax. Nopleural effusion. The bronchiectasis as seen on the chest CT is not apparent by radiography. HEART/MEDIASTINUM: Heart size is normal. Normal mediastinal and hilar contours. HARDWARE/LINES/TUBES: None. BONES: No acute findings. OTHER: No other significant finding. IMPRESSION: No acute cardiopulmonary abnormality. THIS IS AN ELECTRONICALLY VERIFIED FINAL REPORT 12/11/2021 8:23 AM - Electronically signed by Isaak Watson M.D. CH: Report ID: [id number] Reading Location: [id number] us Jessenia Reyes MD IMG XR PROCEDURES Final Resul t documented in this encounter Visit Diagnoses Diagnosis Bronchiolitis Acute bronchiolitis due to other infectious organisms documented in this encounter Care Teams Learning Center Instructor Relationship Specialty Start Date End Date Sylvia Dawson PA [address] [place] [address] PCP - General Internal Medicine 01/05/20 Erica Rodrigues MD [address] [facility] [address] [place] [address] Radiation Oncologist Radiation Oncology 10/25/18 Gasper Kaba MD [address] [place] [address] Surgeon Surgical Oncology 10/25/18 Brandy Aguirre, CARINA [address] [facility] [address] [place] [address] Nurse Practitioner Certified Clinical Nurse Specialist 10/25/18 Jo-Ann Morrow, PhD [address] [facility] [facility] [address] [address] [place] [address] Nurse Practitioner Radiation Oncology 10/25/18 Christina Louis, SCALE SHOOTER [address] [facility] [address] [place] [address] Nurse Practitioner Medical Oncology 10/25/18 documented as of this encounter
--- OUTSIDE RECORDS SUMMARY | 2024-04-24 05:53 | XMS_ITS | Encounter Summary ---
Author Organization [facility] Address [address] [place] [address] Phone Care Team Providers Care Diffusion Furnace Operator Name Role Phone Erica Rodrigues MD Unavailable Gasper Kaba MD Unavailable [phone] Brandy Aguirre AERIAL TRAM OPERATOR Unavailable [phone] Jo-Ann Morrow PhD Unavailable [phone] Christina Louis NURSE AUDITOR Unavailable [phone] Sylvia Dawson Primary Care Provider [phone] Reason for Referral * Diagnostic Imaging (Routine) - Closed Specialty Diagnoses / Procedures Referred By Contac t Referred To Contact Diagnoses Cystoid macular edema of both eyes Procedures OCT, Retina - OU - Both Eyes Sina Frank MD PhD Phone: tel: fax: [facility] (All Locations) Referral ID Status Reason Start Date Expiration Date Visits Re quested Visits Authorized [id number] Closed 08/27/2021 09/26/2022 1 1 Encounter Details Date Type Department Care Team (Late st Contact Info) Description 08/27/2021 10:00 AM CDT Office Visit [facility] [place] [address] Billy Castillo MD PhD [address] [facility] [address] [place] [address] Cystoid macular edema of both eyes (Primary Dx); PCO (posterior capsule opacification), bilateral; Pattern dystrophy of macula Social History Tobacco Use Types Packs/Day Years [...] on file 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 Adame'reece [...] with Dr. Adame as scheduled next week. Orders: - OCT, Retina - OU - Both Eyes PCO (posterior capsule opacification), bilateral Assessment & Plan: She has posterior capsular opacification in both eyes followed by Dr. Contreras. I do not recommend a eye capsulotomy at this time until the macular edema is resolved. She is responsive to the topical medications and will see Dr. Curtis again at the next visit. Pattern dystrophy of macula Assessment & Plan: There is some subretinal yellowish pseudo patella [...] it can be followed with an Amsler Procedures Done Today OCT, Retina - OU - Both Eyes Right Eye Quality was good. Scan locations included subfoveal. Progression has improved. Left Eye Quality was good. Scan locations included subfoveal. Progression has improved. Notes OD: trace CME with lamellar hole, improved compared to 08/19/21 OS: mild CME, improved compared to 08/19/21. Subretinal hyperreflective material = pseudovit seen clinically Plan For Next Visit She will see Dr. Borden locally for an intra-ocular pressure check given that she is on topical steroid drops. This is ideally done next week. She will keep her appointment with Dr. Adame in September. I have seen and examined the patient. I agree with the findings and plan of care as documented in the resident's note.. documented in this encounter Miscellaneous Notes * Assessment & Plan Note - Billy Castillo MD PhD - 08/27/2021 10:50 AM CDTAssociated Problem(s): Pattern dystrophy of macula There is some subretinal yellowish pseudo patella [...] it can be followed with an Amsler * Assessment & Plan Note - Billy Castillo MD PhD - 08/27/2021 10:44 AM CDTAssociated Problem(s): PCO (posterior capsule opacification), bilateral She has posterior capsular opacification in both eyes followed by Dr. Contreras. I do not recommend a eye capsulotomy at this time until the macular edema is resolved. She is responsive to the topical medications and will see Dr. Curtis again at the next visit. * Assessment & Plan Note - Sina Frank MD PhD - 08/27/2021 10:35 AM CDTAssociated Problem(s): Cystoid macular edema of both eyes This is a patient of Dr. Adame's [...] with Dr. Adame as scheduled next week. documented in this encounter Plan of Treatment Not on file documented as of this encounter Procedures Procedure Name Priority Date/Time Associated Diagnosis Comments OCT, RETINA - OU - BOTH EYES Routine 08/27/2021 10:52 AM CDT Cystoid macular edema of both eyes documented in this encounter Results * OCT, Retina - OU - Both Eyes (08/27/2021 10:52 AM CDT) Anatomical Region Laterality Modality Head Optical Coherenc e Tomography Narrative 08/27/2021 10:52 AM CDT Right Eye Quality was good. Scan locations included subfoveal. Progression has improved. Left Eye Quality was good. Scan locations included subfoveal. Progression has improved. Notes OD: trace CME with lamellar hole, improved compared to 08/19/21 OS: mild CME, improved compared to 08/19/21. 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), bilateral Pattern dystrophy of macula documented in this encounter Eye Exam Visual Acuity (Snellen - Linear) Right eye Left eye Dist sc 20/50 -2 20/50 Dist ph sc 20/30 -1 NI Tonometry (Tonopen, 10:04 AM) Right eye Left eye Pressure 15 15 Pupils Dark Light Shape React APD Right eye 5 4 Round Brisk None Left eye 5 4 Round Brisk None Visual Grossman Right eye Left eye Full Full Extraocular Movement Right eye Left eye Full Full Neuro/Psych Oriented x3: Yes Mood/Affect: Normal Dilation Both eyes: 1.0% Mydriacyl @ 10:06 AM Amsler Right eye Left eye - - External Exam Right eye Left eye External Normal Normal Slit Lamp Exam Right eye Left eye Lids/Lashes Normal Normal Conjunctiva/Sclera White and quiet White and gael et Cornea 1-2+ PEE Clear Anterior Chamber Deep and quiet Deep and quiet Iris Round and reactive Round and erasmo ctive Lens Posterior chamber in traocular lens, 2+ Posterior capsular opacification Posterior chamber intraocular lens, 2+ Posterior capsular opacification Vitreous Normal, No cell Normal, No cell Fundus Exam Right eye Left eye Disc Normal Normal C/D Ratio 0.2 0.1 Macula Cystoid macular alex a, Reeves ring, Subretinal yellowish material Cystoid macular edema, Reeves ring, Subretinal yellowish material Vessels Normal Normal Periphery vit syn Vit syn Care Teams Diffusion Furnace Operator Relationship Specialty Start Date End Date Sylvia Dawson PA [address] [facility] [place] [address] PCP - General Internal Medicine 01/05/20 Erica Rodrigues MD [address] [place] [address] Radiation Oncologist Radiation Oncology 10/25/18 Gasper Kaba MD [address] [place] [address] Surgeon Surgical Oncology 10/25/18 Brandy Aguirre, CARINA [address] [place] [address] Nurse Practitioner Certified Clinical Nurse Specialist 10/25/18 Jo-Ann Morrow, PhD [address] [place] [address] Nurse Practitioner Radiation Oncology 10/25/18 Christina Louis, NURSE AUDITOR [address] [place] [address] Nurse Practitioner Medical Oncology 10/25/18 documented as of this encounter
--- OUTSIDE RECORDS SUMMARY | 2024-04-24 05:53 | XMS_ITS | Encounter Summary ---
Author Organization [facility] Address [address] [place] [address] Phone Care Team Providers Care Clipper Counters Name Role Phone Erica Rodrigues MD Unavailable Gasper Kaba MD Unavailable Brandy Aguirre PULP MAKING PLANT OPERATOR Unavailable [phone] Jo-Ann Morrow PhD Unavailable [phone] Christina Louis PATIENT RELATIONS SPECIALIST Unavailable [phone] Sylvia Dawson Primary Care Provider [phone] Encounter Details Date Type Department Care Team (Late st Contact Info) Description 09/05/2021 Telephone [facility] [address] [facility] 6th [place] [address] Jessy Adame MD 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 * Telephone Encounter - Rosa Maria Moore - 09/05/2021 12:28 PM CDT ----- Message from Jessy Adame MD sent at 09/05/2021 12:19 PM CDT ----- Regarding: FW: Wavy vision ----- Message ----- From: Rosa Maria Moore Sent: 09/05/2021 10:00 AM CDT To: Jessy Adame MD Subject: FW: Wavy vision ----- Message ----- From: Yesika Denney Sent: 09/05/2021 9:18 AM CDT To: [facility] Clinical Support Pool Subject: Wavy vision I didn't think that BP could be affected, but I'm just a real lightweight, so I wanted to check. 25mg of benedryl during chemo put me to sleep for hours, I lost weight on prednisone, and I hallucinated from a nausea med. I gave in a semi-conscious state after being given a 1/4 of an adult dose of demerol and vistaril and woke up 6 hours later. Are the blurred vision and headache of any concern? When I wake in the morning, my vision is fairlyclear (minus the floaters). But after I start going through the day, my vision, particularly in my right eye, is so degraded, I can barely see my computer screen without it being zoomed in extremely large. If these are just part of this treatment, then I will wait it out. Thank you for your reply. I am grateful to be under your care. Yesika Mandujano documented in this encounter Plan of Treatment Not on file documented as of this encounter Visit Diagnoses Not on filedocumented in this encounter Care Teams Clipper Counters Relationship Specialty Start Date End Date Sylvia Dawson PA [address] [place] [address] PCP - General Internal Medicine 01/05/20 Erica Rodrigues MD [address] [facility] [address] [place] [address] Radiation Oncologist Radiation Oncology 10/25/18 Gasper Kaba MD [address] [facility] [address] [place] [address] Surgeon Surgical Oncology 10/25/18 Branyd Aguirre, PULP MAKING PLANT OPERATOR [address] [facility] [address] [place] [address] Nurse Practitioner Certified Clinical Nurse Specialist 10/25/18 Jo-Ann Morrow, PhD [address] [facility] [address] [place] [address] Nurse Practitioner Radiation Oncology 10/25/18 Christina Louis NP [address] [facility] [address] [place] [address] Nurse Practitioner Medical Oncology 10/25/18 documented as of this encounter
--- OUTSIDE RECORDS SUMMARY | 2024-04-24 05:53 | XMS_ITS | Encounter Summary ---
Author Organization [facility] Address [address] [place] [address] Care Team Providers Care Dairy Farm Operator Name Role Phone Erica Rodrigues MD Unavailable Gasper Kaba MD Unavailable [phone] Brandy Aguirre SALES ACCOUNT SPECIALIST Unavailable [phone] Jo-Ann Morrow PhD Unavailable [phone] Christina Louis MARKET RISK SPECIALIST Unavailable [phone] Sylvia Dawson Primary Care Provider [phone] Encounter Details Date Type Department Care Team (Late st Contact Info) Description 06/14/2021 7:30 AM QUEBRACHO TANNER Office Visit [facility] Family Medicine [address] [place] [address] Sylvia Dawson PA [address] [place] [address] Pain in both feet (Primary Dx); Hypertension, essential; Recurrent major depressive disorder, remission status unspecified (HCC); BMI 24.0-24.9, adult Social History Tobacco Use [...] on file Legal Sex Female 3:42 AM QUEBRACHO TANNER Gender Identity Not on file Sexual Orientation Not on file 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 file Not on file Not on file documented as of this encounter Last Filed Vital Signs Vital Sign Reading Time Taken Comments Blood Pressure 120/80 06/14/2021 8:17 AM QUEBRACHO TANNER Pulse 72 06/14/2021 8:17 AM QUEBRACHO TANNER Temperature 36.2 ??C (97.1 ??F) 06/14/2021 8:17 AM CS T Respiratory Rate - - Oxygen Saturation 96% 06/14/2021 8:17 AM QUEBRACHO TANNER Inhaled Oxygen Concentration - - Weight 63.8 kg (140 lb 9.6 oz) 06/14/2021 8:17 A M QUEBRACHO TANNER Height 160 cm (5' 3 ) 06/14/2021 8:17 AM QUEBRACHO TANNER Body Mass Index 24.91 06/14/2021 8:17 AM QUEBRACHO TANNER documented in this encounter Progress Notes * Sylvia Dawson PA - 06/14/2021 7:30 AM CST Images from the original note were not included. Subjective/Objective Patient ID: Yesika Denney is a 60 y.o. female. Chief Complaint No chief complaint on file. Earache There is pain in the right ear. This is a chronic problem. The current episode started more than 1 month ago. The problem occurs hourly. The problem has been waxing and waning. There has been no fever. The fever has been present for less than 1 day. The pain is at a severity of 6/10. Associated symptoms include headaches, neck pain, rhinorrhea and vomiting. Pertinent negatives include no abdominal pain, coughing, diarrhea, ear discharge, hearing loss, rash or sore throat. Mid February first felt pain in the right TMJ. It slowly went in to the canal. Ear pops and was going down her throat. Also noting pain behind. 05/29 called and Amoxil was started as she finished the antibiotics, began to feel better and continues Wears retainer (post braces) History of RA> Has had flairs. Rheum increased sulfasalazine increased and she is feeling better -- but no change to the jaw initially. Noting (B) foot pain. No real injury but generalized pain between the 2-3 toes -- suspect neuroma HTn is stable with lisinopril and atenolol. Mood stable with Prozac 20mg Review of Systems HENT: Positive for ear pain and rhinorrhea. Negative for ear discharge, hearing loss and sore throat. Respiratory: Negative for cough. Gastrointestinal: Positive for vomiting. Negative for abdominal pain and diarrhea. Musculoskeletal: Positive for neck pain. Skin: Negative for rash. Neurological: Positive for headaches. See HPI Vitals: 06/14/21 0817 BP: 120/80 BP Location: Left arm Patient Position: Sitting Pulse: 72 Temp: 36.2 ??C (97.1 ??F) TempSrc: Temporal SpO2: 96% Weight: 63.8 kg (140 lb 9.6 oz) Height: 160 cm (5' 3 ) Physical Exam Vitals and nursing note reviewed. Constitutional: Appearance: She is well-developed. HENT: Head: Normocephalic and atraumatic. Right Ear: Tympanic membrane and ear canal normal. Left Ear: Tympanic membrane and ear canal normal. Eyes: Comments: Pupils are equal Cardiovascular: Rate [...] Diagnoses and all orders for this visit: Pain in both feet (M79.671, M79.672) (Primary) Assessment & Plan: Suspect neuromas with the pain being to wean the 2nd and 3rd toe and ball the foot. Will refer to pulp and paper tester for further evaluation. Advise could try making a donut out of mole skin to create protection while waiting to take the pressure off of that area. Orders: - Ambulatory referral to Podiatry; Future Hypertension, essential (I10) Assessment & Plan: Bp is stable/in acceptable range for any co-morbidities. Encouraged to limit sodium intake and exercise for weight control. Continue lisinopril and atenolol Recurrent major depressive disorder, remission status unspecified (HCC) (F33.9) Assessment & Plan: Stable with Prozac 20 mg BMI 24.0-24.9, adult (Z68.24) Assessment & Plan: Weight/BMI is in healthy range. Continue healthy lifestyle to maintain. *This note is dictated using [employer] voice recognition software, variances in spelling and vocabulary are possible and unintentional.* Sylvia Dawson PA-C documented in this encounter Miscellaneous Notes * Assessment & Plan Note - Sylvia Dawson PA - 07/05/2021 8:39 PM CDT Associated Problem(s): Pain in both feet Suspect neuromas with the pain being to wean the 2nd and 3rd toe and ball the foot. Will refer to pulp and paper tester for further evaluation. Advise could try making a donut out of mole skin to create protection while waiting to take the pressure off of that area. * Assessment & Plan Note - Sylvia Dawson PA - 07/05/2021 8:38 PM CDT Associated Problem(s): Moderate episode of recurrent major depressive disorder (HCC) Stable with Prozac 20 mg * Assessment & Plan Note - Sylvia Dawson PA - 07/05/2021 8:38 PM CDT Associated Problem(s): Hypertension, essential Bp is stable/in acceptable range for any co-morbidities. Encouraged to limit sodium intake and exercise for weight control. Continue lisinopril and atenolol * Assessment & Plan Note - Brandi Hernandez MA - 06/14/2021 8:18 AM QUEBRACHO TANNER Associated Problem(s): BMI 24.0-24.9, adult (Resolved 08/26/2021) Weight/BMI is in healthy range. Continue healthy lifestyle to maintain. RACHO TANNER documented in this encounter Plan of Treatment Not on file documented as of this encounter Visit Diagnoses Diagnosis Pain in both feet- Primary Hypertension, essential Unspecified essential hypertension Recurrent major depressive disorder, remission status unspecified (HCC) BMI 24.0-24.9, adult documented in this encounter Care Teams Dairy Farm Operator Relationship Specialty Start Date End Date Sylvia Dawson PA [address] [facility] [address] [place] [address] PCP - General Internal Medicine 01/05/20 Erica Rodrigues MD [address] [address] Radiation Oncologist Radiation Oncology 10/25/18 Gasper Kaba MD [address] [facility] [address] [place] [address] Surgeon Surgical Oncology 10/25/18 Brandy Aguirre CNS [address] [place] [address] Nurse Practitioner Certified Clinical Nurse Specialist 10/25/18 Jo-Ann Morrow, PhD [address] [place] [address] Nurse Practitioner Radiation Oncology 10/25/18 Christina Louis NP [address] [facility] [address] [place] [address] Nurse Practitioner Medical Oncology 10/25/18 documented as of this encounter
--- OUTSIDE RECORDS SUMMARY | 2024-04-24 05:53 | XMS_ITS | Encounter Summary ---
Author Organization [facility] Address [address] [place] [address] Care Team Providers Care Driver Engineer Name Role Phone Erica Rodrigues MD Unavailable Gasper Kaba MD Unavailable Brandy Aguirre ACADEMIC ADVISING DIRECTOR Unavailable [phone] Jo-Ann Morrow PhD Unavailable [phone] Christina Louis FORESTRY FIRE AID Unavailable [phone] Sylvia Dawson Primary Care Provider [phone] Reason for Referral * Diagnostic Imaging (Routine) - Closed Specialty Diagnoses / Procedures Referred By Contac t Referred To Contact Diagnoses Bronchiolitis Procedures XR Chest Pa Lateral 2 Views Jessenia Reyes MD [address] [facility] [address] [place] [address] Phone: tel: fax: [address] [address] Referral ID Status Reason Start Date Expiration Date Visits Re quested Visits Authorized [id number] Closed 12/09/2021 01/08/2023 1 1 Encounter Details Date Type Department Care Team (Late st Contact Info) Description 12/09/2021 Orders Only [facility] Pulmonology [address] [place] [address] Sharlene Kraft MA Bronchiolitis (Primary Dx) Social History Tobacco Use Types [...] on file 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 documented in this encounter Plan of Treatment Not on file documented as of this encounter Results * XR Chest Pa [...] AM T: ??12/11/2021 8:23 AM Report ID: [id number] Reading Location: ??[id number] Procedure Note Isaak Watson Jr., MD - [...] by Isaak Watson M.D. CH: Report ID: [id number] Reading Location: [id number] Jessenia Reyes MD IMG XR PROCEDURES Final Resul t documented in this encounter Visit Diagnoses Diagnosis Bronchiolitis Acute bronchiolitis due to other infectious organisms Bronchiolitis- Primary Acute bronchiolitis due to other infectious organisms documented in this encounter Care Teams Driver Engineer Relationship Specialty Start Date End Date Sylvia Dawson PA [address] [place] [address] PCP - General Internal Medicine 01/05/20 Erica Rodrigues MD [address] [facility] [address] [place] [address] Radiation Oncologist Radiation Oncology 10/25/18 Gasper Kaba MD [address] [facility] [address] [place] [address] Surgeon Surgical Oncology 10/25/18 Brandy Aguirre, ACADEMIC ADVISING DIRECTOR [address] [facility] [address] [place] [address] Nurse Practitioner Certified Clinical Nurse Specialist 10/25/18 Jo-Ann Morrow, PhD [address] [facility] [address] [place] [address] Nurse Practitioner Radiation Oncology 10/25/18 Christina Louis, FORESTRY FIRE AID [address] [facility] [address] [place] [address] Nurse Practitioner Medical Oncology 10/25/18 documented as of this encounter
--- OUTSIDE RECORDS SUMMARY | 2024-04-24 05:53 | XMS_ITS | Encounter Summary ---
Author Organization [facility] Address [address] [place] [address] Care Team Providers Care Program Director Group Work Name Role Phone Erica Rodrigues MD Unavailable Gasper Kaba MD Unavailable Brandy Aguirre FRONT OF HOUSE MANAGER Unavailable [phone] Jo-Ann Morrow PhD Unavailable [phone] Christina Louis SAND WHEELER Unavailable [phone] Sylvia Dawson Primary Care Provider [phone] Reason for Referral * (Routine) - Closed Specialty Diagnoses / Procedures Referred By Niranjan farrell Referred To Contact Diagnoses 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 (CMS/HCC) (HCC) Bronchiolitis Procedures Pulmonary Function Test -[facility]; Full PFT in PFT Lab w/Stress Ox/6 Min Walk Test Jessenia Reyes MD [address] [address] Phone: tel: fax: Referral ID Status Reason Start Date Expiration Date Visits Re quested Visits Authorized [id number] Closed 06/11/2021 2022 1 1 Reason for Visit * (Routine) - Closed Specialty Diagnoses / Procedures Referred By Conternestina farrell Referred To Contact Diagnoses 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 (CMS/HCC) ([facility]) Bronchiolitis Procedures Pulmonary Function Test -[facility]; Full PFT in PFT Lab w/Stress Ox/6 Min Walk Test Jessenia Reyes MD [address] [place] [address] Phone: tel: fax: Referral ID Status Reason Start Date Expiration Date Visits Re quested Visits Authorized [id number] Closed 06/11/2021 2022 1 1 Encounter Details Date Type Department Care Team (Latest Contact Info) Description 12/09/2021 2:17 PM CDT - 12/09/2021 11:59 PM CDT Hospital Encounter [facility] Respiratory Therapy [address] [place] [id number] 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 ([facility]) ([facility]); Bronchiolitis Discharge Disposition: Discharge to home or [...] on file 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 58 bpm Resting SPO2 97 % Oxygen Setting 21% Ambulation Trials to Assess Desaturation to 88% Activity 1: Ambulated (feet) 1120 feet Post Ambulation Assessment HR Post Assessment 86 bpm RR Post Assessment 18 breaths/m Post Assessment Recommendation no o2 was required $ Home O2 Assessment Yes Dx=post covid pneumonia Violet Arenas CRTT documented in this encounter Plan of Treatment Not on file documented as of this encounter Procedures Procedure Name Priority Date/Time Associated Diagnosis Comments PULMONARY FUNCTION TEST (PFT) Routine 12/09/2021 3:30 PM CDT 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 ([facility]/HCC) (HCC) Bronchiolitis documented in this encounter Results * (ABNORMAL) Pulmonary Function Test - (12/09/2021 3:30 PM CDT) FVC PRE 3.24 2.27 - 3.79 L 12/09/2021 3:50 PM CDT [facility] FEV1 PRE 2.62 1.79 - 2.94 L 12/09/2021 3:50 PM CDT [facility] [id number] 81.00 67.11 - 89.73 % 12/09/2021 3:50 PM CDT [facility] [id number]% PRE 2.90 1.09 - 3.61 L/s 12/09/2021 3:50 PM CDT [facility] PEF PRE 6.85 4.38 - 7.34 L/s 12/09/2021 3:50 PM CDT [facility] FET 100% PRE 6.48 sec 12/09/2021 3:50 PM CDT [facility] FIVC PRE 3.16 2.02 - 3.40 L 12/09/2021 3:50 PM CDT [facility] FIF50% PRE 3.63 L/s 12/09/2021 3:50 PM CDT [facility] DLCOc SB 16.66 16.25 - 27.71 ml/(min*mm Hg) 12/09/2021 3:50 PM CDT [facility] VA 4.42(L) 4.62 - 4.62 L 12/09/2021 3:50 PM CDT [facility] DLCO/VA PRE 3.77 3.07 - 6.14 ml/(min*mm Hg*L) 12/09/2021 3:50 PM CDT [facility] IC SB 1.90(L) 1.94 - 1.94 L 12/09/2021 3:50 PM CDT [facility] VC PRE 3.11 2.02 - 3.40 L 12/09/2021 3:50 PM CDT [facility] TLC PRE 4.90 3.78 - 5.76 L 12/09/2021 3:50 PM CDT [facility] RV PRE 1.79 1.30 - 2.45 L 12/09/2021 3:50 PM CDT [facility] FRC PL PRE 2.68 1.82 - 3.47 L 12/09/2021 3:50 PM CDT [facility] ERV PRE 0.89(H) 0.77 - 0.77 L 12/09/2021 3:50 PM CDT [facility] IC PRE 2.22(H) 1.94 - 1.94 L 12/09/2021 3:50 PM CDT [facility] RAW PRE 2.42(L) 3.06 - 3.06 cmH2O*s/L 12/09/2021 3:50 PM CDT [facility] BF RES 23.95 BPM 12/09/2021 3:50 PM T [facility] Anatomical Region Laterality Modality PFT 12/09/2021 2:51 PM CDT Impressions 12/11/2021 8:14 AM CDT 1. ??Normal pulmonary function test 2. ??Ambulatory oximetry was performed. ??At this level of activity the patient did not require supplemental oxygen to maintain saturations greater than 88% Electronically signed by Parish Quiros MD Pulmonary & Critical Care Narrative 12/11/2021 8:14 AM CDT PULMONARY FUNCTION TESTS Yesika Denney 61 y.o. 12/11/2021 INTERPRETATION Please see technologist's comments mentioned in attached results report. SPIROMETRY: ??Pre bronchodilator FEV1 is 110 % predicted, FVC is 107 % predicted, FEV1/FVC is 0.81 Bronchodilator response: ??Not performed Inspection of the patient's flow-volume loops shows: ??Normal configuration of the inspiratory and expiratory limbs. LUNG VOLUMES: Lung volumes by body plethysmography: ??TLC is 103 % predicted, RV is 96 % predicted DLCO: ??Unadjusted for hemoglobin and carboxyhemoglobin DLCO is 76 % predicted AIRWAY RESISTANCE: The airway resistance is normal us Jessenia Reyes MD PFT ORDERABLES Final Result documented in this encounter Visit Diagnoses Diagnosis 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 (CMS/HCC) (HCC) Bronchiolitis Acute bronchiolitis due to other infectious organisms documented in this encounter Care Teams Program Director Group Work Relationship Specialty Start Date End Date Sylvia Dawson PA [address] [place] [address] PCP - General Internal Medicine 01/05/20 Erica Rodrigues MD [address] [facility] [address] [place] [address] Radiation Oncologist Radiation Oncology 10/25/18 Gasper Kaba MD [address] [facility] [address] [place] [address] Surgeon Surgical Oncology 10/25/18 Brandy Aguirre, CARINA [address] [facility] [address] [place] [address] Nurse Practitioner Certified Clinical Nurse Specialist 10/25/18 Jo-Ann Morrow, PhD [address] [facility] [address] [place] [address] Nurse Practitioner Radiation Oncology 10/25/18 Christina Louis SAND WHEELER [address] [place] [address] Nurse Practitioner Medical Oncology 10/25/18 documented as of this encounter
--- OUTSIDE RECORDS SUMMARY | 2024-04-24 05:53 | XMS_ITS | Encounter Summary ---
Author Organization [facility] Address [address] [place] [address] Phone Care Team Providers Care Technology Resource Teacher Name Role Phone Erica Rodrigues MD Unavailable Gasper Kaba MD Unavailable Brandy Aguirre LOCAL COMPANY TANKER DRIVER Unavailable [phone] Jo-Ann Morrow PhD Unavailable [phone] Christina Louis CABLE TELEVISION TECHNICIAN Unavailable [phone] Sylvia Dawson Primary Care Provider [phone] Reason for Referral * Diagnostic Imaging (Routine) - Closed Specialty Diagnoses / Procedures Referred By Contac t Referred To Contact Diagnoses Cystoid macular edema of both eyes Procedures OCT, Retina - OU - Both Eyes Jessy Adame MD [address] [facility] [address] [place] [address] Phone: tel: fax: [facility] (All Locations) Referral ID Status Reason Start Date Expiration Date Visits Re quested Visits Authorized [id number] Closed 11/13/2021 12/13/2022 1 1 Reason for Visit * Reason Comments Cystoid macular edema of both eyes Encounter Details Date Type Department Care Team (Late st Contact Info) Description 11/13/2021 10:10 AM CDT Office Visit [facility] Ophthalmology [address] [facility] [address] [place] [address] Jessy Adame MD [address] [facility] [address] [place], [place] [id number] Cystoid macular edema of both eyes (Primary [...] on file 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 10 mL 11 11/13/2021 2 documented in this encounter Progress Notes * Jessy Adame MD - 11/13/2021 10:10 AM CDT ASSESSMENT/ORDERS/PROCEDURES PERFORMED TODAY Chief Complaint Patient presents with ??? Cystoid macular edema of both eyes HPI 4 wk f/u- CME Patient states VA has improved but still seeing floaters, possibly the same. Denies eye pain and FOL. Last edited by Renetta Carlson, COA on 11/13/2021 10:10 AM. (History) Assessment/Plan Diagnoses and all orders for this [...] drops; Administer 1 drop into both eyes 3 (three) times a day for 14 days, THEN 1 drop 2 (two) times a day. OCT, Retina - OU - Both Eyes [...] PLAN FOR NEXT VISIT Follow-up and Dispositions ?? Return in about 4 weeks (around 12/11/2021) for Dilated exam OU, OCT OU. documented in this encounter Miscellaneous Notes * Assessment & Plan Note - Jessy Adame MD - 11/13/2021 11:15 AM CDT Associated Problem(s): Cystoid macular edema [...] RETINA - OU - BOTH EYES Routine 11/13/2021 11:14 AM CDT Cystoid macular edema of both eyes documented in this encounter Results * OCT, Retina - OU - Both Eyes (11/13/2021 11:14 AM CDT) Anatomical Region Laterality Modality Head Optical Coherenc e Tomography Narrative 11/13/2021 11:14 AM CDT Right Eye Quality was good. [...] eyes Administer 1 drop into both eyes 4 (four) times a day 10/21/2021 11/13/2021 documented as of this encounter Eye Exam Visual Acuity (Snellen - Linear) Right eye Left eye Dist sc 20/50 20/60 Dist ph sc 20/40 -2 20/25 -2 Tonometry (Tonopen, 10:14 AM) Right eye Left eye Pressure 20 20 Pupils Dark Light Shape React APD Right eye 5 4 Round Brisk None Left eye 5 4 Round Brisk None Visual Grossman Right eye Left eye Full Full Extraocular Movement Right eye Left eye Full Full Neuro/Psych Oriented x3: Yes Mood/Affect: Normal Dilation Both eyes: 1.0% Mydriacyl @ 10:16 AM External Exam Right eye Left eye [...] vit syn flat, vit syn Care Teams Technology Resource Teacher Relationship Specialty Start Date End Date Sylvia Dawson PA [address] [facility] [facility] [facility] [address] [facility] [address] [place] [address] PCP - General Internal Medicine 01/05/20 Erica Rodrigues MD [address] [facility] [address] [place] [address] Radiation Oncologist Radiation Oncology 10/25/18 Gasper Kaba MD [address] [facility] [address] [place] [address] Surgeon Surgical Oncology 10/25/18 Brandy Aguirre, LOCAL COMPANY TANKER DRIVER [address] [facility] [address] [place] [address] Nurse Practitioner Certified Clinical Nurse Specialist 10/25/18 Jo-Ann Morrow, PhD [address] [facility] [address] [place] [address] Nurse Practitioner Radiation Oncology 10/25/18 Christina Louis NP [address] [facility] [address] [place] [address] Nurse Practitioner Medical Oncology 10/25/18 documented as of this encounter
--- OUTSIDE RECORDS SUMMARY | 2024-04-24 05:53 | XMS_ITS | Encounter Summary ---
Author Organization [facility] Address [address] [place] [address] Care Team Providers Care Fraternity House Cook Name Role Phone Erica Rodrigues MD Unavailable Gasper Kaba MD Unavailable Brandy Aguirre MACHINE PRECISION ETCHER Unavailable [phone] Jo-Ann Morrow PhD Unavailable [phone] Christina Louis SAND TECHNOLOGIST Unavailable [phone] Sylvia Dawson Primary Care Provider [phone] Reason for Referral * (Routine) - Closed Specialty Diagnoses / Procedures Referred By Contac t Referred To Contact Diagnoses 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 (CMS/HCC) (HCC) Bronchiolitis Procedures Pulmonary Function Test -[facility]; Full PFT in PFT Lab w/Stress Ox/6 Min Walk Test Jessenia Reyes MD [address] [address] Phone: tel: fax: Referral ID Status Reason Start Date Expiration Date Visits Re quested Visits Authorized [id number] Closed 06/11/2021 2022 1 1 METALLURGICAL ENGINEER Reason for Visit * Reason Comments Bronchioloiis Follow up Encounter Details Date Type Department Care Team (Late st Contact Info) Description 06/11/2021 10:30 AM PYROMETALLURGICAL ENGINEER Office Visit [facility] Pulmonology [address] [place] [id number] Jessenia Reyes MD [address] [facility] [address] [place] [address] Bronchiolitis (Primary Dx); 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 (CMS/HCC) (HCC); History of COVID-19; Non-seasonal allergic rhinitis due to other allergic trigger Social History Tobacco Use Types Packs/Day Years [...] on file 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 Gender Identity Not on file Sexual Orientation Not on file 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 on file Not on file Not on file documented as of this encounter Last Filed Vital Signs Vital Sign Reading Time Taken Comments Blood Pressure 103/71 06/11/2021 10:55 AM PYROMETALLURGICAL ENGINEER Pulse 75 06/11/2021 10:55 AM PYROMETALLURGICAL ENGINEER Temperature - - Respiratory Rate 18 06/11/2021 10:5 5 AM PYROMETALLURGICAL ENGINEER Oxygen Saturation 96% 06/11/2021 10: 55 AM PYROMETALLURGICAL ENGINEER Inhaled Oxygen Concentration - - Weight 64.8 kg (142 lb 12.8 oz) 022 10:55 AM PYROMETALLURGICAL ENGINEER Height 160 cm (5' 3 ) 06/11/2021 10:55 AM PYROMETALLURGICAL ENGINEER Body Mass Index 25.3 06/11/2021 10:55 AM PYROMETALLURGICAL ENGINEER documented in this encounter Progress Notes * Jessenia Reyes MD - 06/11/2021 10:30 AM CST Images from the original note were not included. PULMONARY CLINIC NOTE Visit Date: 06/11/2021 INTERVAL HISTORY: Presents today for follow-up of ??? post COVID dyspnea ??? bronchiolitis Respiratory status much improved. Not using albuterol Fatigue and dyspnea with exertion mild No coughing No wheezing Seasonal allergies stable on flonase. HPI: Patient is a 60 y.o. female w/ PMH of HTN, h/o breast cancer, RA who presented on 10/02/2020 for evaluation of dyspnea. Patient was diagnosed with COVID in April 2020, was admitted to hospital for 1 week. Has had symptoms since then. Has dyspnea with exertion. Also has fatigue. Intermittent coughing No wheezing Minimal upper respiratory symptoms Social History: Never smoker. Rare etoh. No drug use. 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 Review of Systems: Review of Systems Constitutional: Negative for chills and fever. HENT: Negative for nosebleeds. Eyes: Negative for pain. Respiratory: Negative for wheezing. Cardiovascular: Negative for chest pain. Gastrointestinal: Negative for blood in stool. Endocrine: Negative for polydipsia. Genitourinary: Negative for hematuria. Musculoskeletal: Negative for joint swelling. Skin: Negative for rash. Neurological: Negative for seizures. Psychiatric/Behavioral: Negative for behavioral problems. OBJECTIVE: Physical Exam: Vitals: 06/11/21 1055 BP: 103/71 BP Location: Left arm Patient Position: Sitting Pulse: 75 Resp: 18 SpO2: 96% Weight: 64.8 kg (142 lb 12.8 oz) Height: 160 cm (5' 3 ) Physical Exam Constitutional: General: She is awake. Appearance: Normal appearance. HENT: Head: Normocephalic and atraumatic. Right Ear: External ear normal. Left Ear: External ear normal. Nose: Comments: External nose normal appearing Eyes: General: No scleral icterus. Conjunctiva/sclera: Conjunctivae normal. Cardiovascular: Rate and Rhythm: Normal rate and regular rhythm. Heart sounds: No friction rub. Pulmonary: Breath sounds: Normal breath sounds. No wheezing. Abdominal: Palpations: Abdomen is soft. Tenderness: There is no abdominal tenderness. Musculoskeletal: General: No signs of injury. Cervical back: No rigidity. Skin: General: Skin is dry. Coloration: Skin is not jaundiced. Neurological: General: No focal deficit present. Mental Status: She is alert. Mental status is at baseline. Psychiatric: Mood and Affect: Mood normal. Behavior: Behavior normal. Data Review: 10/08/2020 PFT: 10/08/2020 CT chest IMPRESSION: Minimal mosaic attenuation, consistent with small airway disease. Otherwise, no CT abnormality to explain shortness of breath. 09/20/2020 echo: Conclusions: Normal left ventricular systolic function. No focal wall motion abnormalities. Normal left ventricular size. Impaired diastolic relaxation Grade I. Ejection fraction is measured at 62 %. Trivial mitral, tricuspid and pulmonic regurgitation. Compared with 2019: no change. ASSESSMENT AND PLAN 1. dyspnea-bronchiolitis o Has some mild mosaic attenuation on chest CT, probably post infectious bronchiolitis vs asthma. No obstruction or major airflow limitation on PFT. o She is feeling improved. o Continue p.r.n. albuterol. o Repeat PFT and chest x-ray 2. history COVID-19 o in April 2020 with hospitalization in May 2020. o Seems to be recovering. Continue exercise to improve cardiovascular muscular conditioning. 3. Allergic rhinitis o Continue p.r.n. Flonase 4. rheumatoid arthritis o No signs of pulmonary HTN on her echo. CT chest with w/o signs of methotrexate toxicity or pulmonary rheumatoid complications. o Continue Plaquenil and other DMARD. Continue follow-up with Rheumatology She wishes to return p.r.n.. Follow up on PFT and chest x-ray and if unrevealing she can continue p.r.n. follow-up. Jessenia Reyes MD There may be syntax/grammatical errors in this note due to the use of voice recognition software. METALLURGICAL ENGINEER documented in this encounter Plan of Treatment Not on file documented as of this encounter Results * (ABNORMAL) Pulmonary Function Test - (12/09/2021 3:30 PM CDT) [facility] FVC PRE 3.24 2.27 - 3.79 L 12/09/2021 3:50 PM CDT [facility] FEV1 PRE 2.62 1.79 - 2.94 L 12/09/2021 3:50 PM CDT [facility] [id number] 81.00 67.11 - 89.73 % 12/09/2021 3:50 PM CDT [facility] ZBZ05-98% PRE 2.90 1.09 - 3.61 L/s 12/09/2021 3:50 PM CDT [facility] PEF PRE 6.85 4.38 - 7.34 L/s 12/09/2021 3:50 PM CDT [facility] FET 100% PRE 6.48 sec 12/09/2021 3:50 PM CDT [facility] FIVC PRE 3.16 2.02 - 3.40 L 12/09/2021 3:50 PM CDT [facility] FIF50% PRE 3.63 L/s 12/09/2021 3:50 PM CDT [facility] DLCOc SB 16.66 16.25 - 27.71 ml/(min*mm Hg) 12/09/2021 3:50 PM CDT [facility] VA 4.42(L) 4.62 - 4.62 L 12/09/2021 3:50 PM CDT [facility] DLCO/VA PRE 3.77 3.07 - 6.14 ml/(min*mm Hg*L) 12/09/2021 3:50 PM CDT [facility] IC SB 1.90(L) 1.94 - 1.94 L 12/09/2021 3:50 PM CDT [facility] VC PRE 3.11 2.02 - 3.40 L 12/09/2021 3:50 PM CDT [facility] TLC PRE 4.90 3.78 - 5.76 L 12/09/2021 3:50 PM CDT [facility] RV PRE 1.79 1.30 - 2.45 L 12/09/2021 3:50 PM CDT [facility] FRC PL PRE 2.68 1.82 - 3.47 L 12/09/2021 3:50 PM CDT [facility] ERV PRE 0.89(H) 0.77 - 0.77 L 12/09/2021 3:50 PM CDT [facility] IC PRE 2.22(H) 1.94 - 1.94 L 12/09/2021 3:50 PM CDT [facility] RAW PRE 2.42(L) 3.06 - 3.06 cmH2O*s/L 12/09/2021 3:50 PM CDT [facility] BF RES 23.95 BPM 12/09/2021 3:50 PM CDT [facility] Anatomical Region Laterality Modality PFT 12/09/2021 2:51 [...] AIRWAY RESISTANCE: The airway resistance is normal Jessenia Reyes MD PFT ORDERABLES Final Result documented in this encounter Visit Diagnoses Diagnosis Bronchiolitis- Primary Acute bronchiolitis due to other infectious organisms 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 ([facility]) ([facility]) History of COVID-19 Non-seasonal allergic rhinitis due to other allergic trigger 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 ([facility]) ([facility]) Bronchiolitis Acute bronchiolitis due to other infectious organisms documented in this encounter Care Teams Fraternity House Cook Relationship Specialty Start Date End Date Sylvia Dawson PA [address] [place] [address] PCP - General Internal Medicine 01/05/20 Erica Rodrigues MD [address] [place] [address] Radiation Oncologist Radiation Oncology 10/25/18 Gasper Kaba MD [address] [place] [address] Surgeon Surgical Oncology 10/25/18 Brandy Aguirre, MACHINE PRECISION ETCHER [address] [place] [address] Nurse Practitioner Certified Clinical Nurse Specialist 10/25/18 Jo-Ann Morrow, PhD [address] [place] [address] Nurse Practitioner Radiation Oncology 10/25/18 Christina Louis, SAND TECHNOLOGIST [address] [place] [address] Nurse Practitioner Medical Oncology 10/25/18 documented as of this encounter
--- OUTSIDE RECORDS SUMMARY | 2024-04-24 05:53 | XMS_ITS | Encounter Summary ---
Author Organization [facility] [facility] Address [address] [place] [address] Phone Care Team Providers Care Rn Liaison Name Role Phone Erica Rodrigues MD Unavailable Gasper Kaba MD Unavailable [phone] Brandy Aguirre [employer] PARALEGAL Unavailable Jo-Ann Morrow PhD Unavailable [phone] Christina Louis PHOTO ENGRAVER Unavailable [phone] Sylvia Dawson Primary Care Provider [phone] Encounter Details Date Type Department Care Team (Late st Contact Info) Description 08/22/2021 12:20 PM CDT Office Visit [facility] Rheumatology [address] Advanced Medicine 5th [place] [address] [place] [address] Patricia Martinez MD [address] [place] [address] Rheumatoid arthritis of multiple sites with negative [...] on file Legal Sex Female 3:42 AM BEAM DYER Gender Identity Not on file Sexual Orientation Not on file 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 Not on file Not on file Not on file documented as of this encounter Last Filed Vital Signs Vital Sign Reading Time Taken Comments Blood Pressure 127/83 08/22/2021 12:13 PM CDT Pulse 56 08/22/2021 12:13 PM CDT Temperature 36.7 ??C (98 ??F) 08/22/2021 12:13 PM CDT Respiratory Rate - - Oxygen Saturation - - Inhaled Oxygen Concentration - - Weight 64.9 kg (143 lb) 08/22/2021 12:13 PM CDT Height 160 cm (5' 3 ) 08/22/2021 12:13 PM CDT Body Mass Index 25.33 08/22/2021 12:13 PM CDT documented in this encounter Progress Notes * Patricia Martinez MD - 08/22/2021 12:20 PM CDT Subjective Patient is a 61 y.o. female with chief complaint of Follow-up seronegative rheumatoid arthritis. HPI: 61-year-old white female with past medical history of breast cancer presents today for follow-up ofseronegative rheumatoid arthritis comorbid scleritis. Current management is ssz 1 g b.i.d. plus mtx20 mg weekly plus hcq 200 mg daily. Recent cataract extraction with retinal edema and using steroidgtts. She has had no recurrence of scleritis. She has no significant morning stiffness or gelling. She has occasional arthralgias in her hands without swelling and she has been experiencing right TMJpain. She has known bruxism. She has no dysesthesias in her face on that side but uses ibuprofen asneeded. DISEASE TREATMENT HISTORY May 10??2015??-initiation of anastrazole and 1 week later onset of polyarticular joint inflammation, +Fhx 2 sisters with RA, one cousin with SLE RF/CCP negative. Started on prednisone, MTX 12/2015- HCQ 200 mg added 02/2016 SSZ added at 500 mg bid 11/2017 Scleritis requiring short term oral prednisone, HLA B-27 negative 08/16/18??bone densities with T-score -0.9 femoral neck, -0.2 in the spine 02/28/2019 repeat hand and foot radiographs demonstrate only erosion of the right 3rd metacarpal head unchanged from 2017 with mild osteoarthritis present ?? Patient Active Problem List Diagnosis ??? Cerebral [...] of breast cancer ??? Mixed hyperlipidemia ??? Colon cancer screening ??? Lumbar back pain ??? Need for immunization against influenza ??? Chronic right shoulder pain ??? Stress ??? Atrial tachycardia (CMS/HCC) (HCC) ??? Fever ??? History of COVID-19 ??? Pneumonia due to COVID-19 virus ??? Hypertension, essential ??? Tachycardia ??? Cough ??? Fatigue ??? Annual physical exam ??? Recurrent major depressive disorder (HCC) ??? Breast mass ??? BMI 24.0-24.9, adult ??? Pain in both feet ??? Cystoid macular edema of both eyes Past Surgical History: Procedure Laterality Date ??? ABLATION ??? BREAST BIOPSY Left 2002 benign ??? BREAST LUMPECTOMY Right 2014 ??? COLONOSCOPY 03/06/2020 ??? CYST REMOVAL ??? HYSTEROSCOPY ? ? PORT PLACEMENT CHEST >5 YEARS N/A 01/17/2015 ??? PORT REMOVAL N/A 04/10/2015 ??? RHINOPLASTY 1985 ??? THYROIDECTOMY, PARTIAL Left 1997 Dr. Demetris Aguilar ??? TONSILLECTOMY 1982 Immunization History Administered Date(s) Administered ??? Influenza, Quadrivalent, Cell Culture-based MDCK, Preservative Free, Antibiotic Free, Intramuscular 03/16/2018 ??? Influenza, Quadrivalent, Split, Preservative Free, Intramuscular 01/05/2020, 02/26/2021 ??? Influenza, Trivalent, Intramuscular 01/27/2018 ??? Influenza, Trivalent, Preservative Free, Intramuscular 02/24/2017 ??? Influenza, Unspecified 01/11/2019 ??? ZOSTER Recombinant 02/23/2020, 05/01/2020 Allergies Allergen Reactions ??? Adhesive Hives ??? Adhesive Tape-Silicones Rash ??? Cyclizine Other (See comments) and Hallucinations Reaction: Urinary retention Social History Tobacco Use ??? Smoking status: Never Smoker ??? Smokeless tobacco: Never Used Substance Use Topics ??? Alcohol use: Yes Alcohol/week: 1.0 standard drink Types: 1 Shots of liquor per week Comment: social .[facility] Family History Problem Relation Age of Onset ??? Depression Sister ??? Hypertension Sister ??? Hypertension Mother ??? Anemia Mother ??? Heart disease Mother ??? Heart failure Mother ??? Alzheimer's disease Father ??? Depression Father ??? Hypertension Father ??? Memory loss Father ??? Lung cancer Father ??? Peripheral vascular disease Father ??? Cancer Father ??? Dementia Father ??? Cancer Maternal Grandfather ??? Depression Brother ??? Hypertension Brother ??? Memory loss Maternal Grandmother ??? Depression Paternal Grandmother ??? Stroke Paternal Grandmother ??? Arthritis Sister ??? Osteoporosis Sister ??? No Known Problems Sister ??? Hypertension Sister Review of Systems: As per my HPI and otherwise negative Vitals BP 127/83 Pulse 56 Temp 36.7 ??C (98 ??F) Ht 160 cm (5' 3 ) Wt 64.9 kg (143 lb) LMP (LMP Unknown) BMI 25.33 kg/m?? Physical Exam Pleasant white female Point tenderness over the right TMJ with crepitus and no soft tissue swelling. She is developing small Heberden's nodes in the D IP joints and has some bony enlargement at the PIP joints but no synovial hypertrophy in the small joints of her hands, wrists, elbows, shoulders, knees or ankles Lab/Radiology/Diagnostic Review: Assessment /Plan Problem List Items Addressed This Visit Rheumatology Problems Rheumatoid arthritis with negative rheumatoid factor (HCC) - Primary Relevant Orders Erythrocyte sedimentation rate CRP (acute phase) Comprehensive metabolic panel CBC with auto differential Other High risk medication use Relevant Orders Erythrocyte sedimentation rate CRP (acute phase) Comprehensive metabolic panel CBC with auto differential Overall her rheumatoid arthritis is doing quite well and her global assessment is 0.5-1. She would like to decrease her medications and I think she can try to decrease her sulfasalazine by 50% and escalate back to 1 g b.i.d. if she has symptoms. If this is successful, we could potentially try decreasing the hydroxychloroquine to 3 days weekly but I discussed with her she should not try this before 90 days of the lowered sulfasalazine dose. She is due for monitoring laboratories and we will obtain these today. 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 documented in this encounter Plan of Treatment Scheduled Orders Name Type Priority Associated Diagnoses Orde r Schedule Comprehensive metabolic panel Lab Routine Rheumatoid 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 (CMS/HCC) (HCC) High risk medication use Expected: 08/22/2021, Expires: 08/22/2022 CBC with auto differential Lab Routine Rheumatoid 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 (CMS/HCC) (HCC) High risk medication use Expected: 08/22/2021, Expires: 08/22/2022 documented as of this encounter Procedures Procedure Name Priority Date/Time Associated Diagnosis Comments CRP (ACUTE PHASE) Routine 08/30/2021 9:5 2 AM CDT Rheumatoid 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 (CMS/HCC) (HCC) High risk medication use ERYTHROCYTE SEDIMENTATION RATE Routine 08/30/2021 9:51 AM CDT Rheumatoid 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 (CMS/HCC) (HCC) High risk medication use documented in this encounter Results * CRP (acute phase) (08/30/2021 9:52 AM CDT) CRP <1 0 - 10 mg/L [facility] - 01 Blood specimen (specimen) 08/30/2021 9:52 AM CDT 08/30/2021 Narrative [facility] - 08/31/2021 6:10 AM CDT Performed at: ??01 - [address] ??[id number] Commissioning Engineer: John Lozoya PhD, Phone: ??[phone] Patricia Martinez MD LAB BLOOD ORDERABLES Final R esult Performing Organization Address [facility] de Phone Number [facility] - * Erythrocyte sedimentation rate (08/30/2021 9:51 AM CDT) Erythrocyte sedimentation rate 2 0 - 40 mm/hr [facility] - 01 Blood specimen (specimen) 08/30/2021 9:51 AM CDT 08/30/2021 Narrative [facility] - 08/31/2021 4:07 AM CDT Performed at: ??[address] - [address] ??[id number] Commissioning Engineer: John Lozoya PhD, Phone: ??[phone] Patricia Martinez MD LAB BLOOD ORDERABLES Final R esult Performing Organization Address [facility] Co de Phone Number [facility] - documented in this encounter Visit Diagnoses Diagnosis Rheumatoid 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 (CMS/HCC) (HCC)- Primary High risk medication use documented in this encounter Care Teams Rn Liaison Relationship Specialty Start Date End Date Sylvia Dawson PA [address] [facility] [address] [place] [address] PCP - General Internal Medicine 01/05/20 Eriac Rodrigues MD [address] [place] [address] Radiation Oncologist Radiation Oncology 10/25/18 Gasper Kaba MD [address] [place] [address] Surgeon Surgical Oncology 10/25/18 Brandy Aguirre, [employer]GAL [address] [place] [address] Nurse Practitioner Certified Clinical Nurse Specialist 10/25/18 Jo-Ann Morrow, PhD [address] [place] [address] Nurse Practitioner Radiation Oncology 10/25/18 Christina Louis PHOTO ENGRAVER [address] [place] [address] Nurse Practitioner Medical Oncology 10/25/18 documented as of this encounter
--- OUTSIDE RECORDS SUMMARY | 2024-04-24 05:53 | XMS_ITS | Encounter Summary ---
Author Organization [facility] Healthcare Address [address] [place] [address] Care Team Providers Care Equal Employment Opportunity Officer Name Role Phone Erica Rodrigues MD Unavailable Gasper Kaba MD Unavailable Brandy Aguirre LEAD JAVA J2EE DEVELOPER Unavailable [phone] Jo-Ann Morrow PhD Unavailable [phone] Christina Louis ROCK DUSTER Unavailable [phone] Sylvia Dawson Primary Care Provider [phone] Reason for Referral * Diagnostic Imaging (Routine) - Closed Specialty Diagnoses / Procedures Referred By Contac t Referred To Contact Diagnoses Rheumatoid 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 (CMS/HCC) (HCC) Procedures XR Hand Right 3 or More Views Patricia Martinez MD 10 [facility] [address] [place] [address] Phone: tel: fax: [address] [phone] Referral ID Status Reason Start Date Expiration Date Visits Re quested Visits Authorized [id number] Closed 05/06/2021 06/05/2022 1 1 E MINISTER * Diagnostic Imaging (Routine) - Closed Specialty Diagnoses / Procedures Referred By Contac t Referred To Contact Diagnoses Bilateral foot pain Procedures XR Foot Left 3 or More Views Patricia Martinez MD [address] [facility] [address] [place] [address] Phone: tel: fax: [address] [phone] Referral ID Status Reason Start Date Expiration Date Visits Re quested Visits Authorized [id number] Closed 05/03/2021 06/02/2022 1 1 E MINISTER * Diagnostic Imaging (Routine) - Closed Specialty Diagnoses / Procedures Referred By Contac t Referred To Contact Diagnoses Bilateral foot pain Procedures XR Foot Right 3 or More Views Patricia Martinez MD [address] [place] [address] [address] [place] [address] Phone: tel: fax: [address] [phone] Referral ID Status Reason Start Date Expiration Date Visits Re quested Visits Authorized [id number] Closed 05/03/2021 06/02/2022 1 1 E MINISTER * Diagnostic Imaging (Routine) - Closed Specialty Diagnoses / Procedures Referred By Contac t Referred To Contact Diagnoses Rheumatoid 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 (CMS/HCC) (HCC) Procedures XR Hand Left 3 or More Views Patricia Martinez MD [address] [place] [address] [address] [place] [address] Phone: tel: fax: [address] [phone] Referral ID Status Reason Start Date Expiration Date Visits Re quested Visits Authorized [id number] Closed 05/06/2021 06/05/2022 1 1 E MINISTER Reason for Visit * Diagnostic Imaging (Routine) - Closed Specialty Diagnoses / Procedures Referred By Contac t Referred To Contact Diagnoses Rheumatoid 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 (CMS/HCC) (HCC) Procedures XR Hand Left 3 or More Views Patricia Martinez MD [address] [place] [address] Phone: tel: fax: [facility] [address] [facility] [place] [address] Referral ID Status Reason Start Date Expiration Date Visits Re quested Visits Authorized [id number] Closed 05/06/2021 06/05/2022 1 1 Encounter Details Date Type Department Care Team (Latest Contact Info) Description 05/07/2021 2:21 PM PRIME MINISTER - 05/07/2021 11:59 PM PRIME MINISTER Hospital Encounter [facility] [address] [place] [id number] Patricia Martinez MD [address] [facility] [address] [place], [place] [id number] Rheumatoid 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 (CMS/HCC) (HCC); Bilateral foot pain Discharge Disposition: Discharge to home or self [...] on file Legal Sex Female 3:42 AM PRIME MINISTER Gender Identity Not on file Sexual Orientation [...] 05/15/2020 2 aspirin 81 mg enteric coated tabletIndications :can't recall why they put her on this Take 1 tablet (81 mg total) by mouth 2 (two) times a week and Thu 2 atenoloL (TENORMIN) 25 mg tablet Take 1 tablet (25 mg total) by mouth daily 90 tablet 1 03/15/2021 2 FLUoxetine (PROzac) 20 mg capsuleIndication s:Stress,Recurren t major depressive disorder, remission status unspecified (HCC) Take 1 capsule (20 mg total) by mouth daily 90 capsule 1 02/26/2021 2 folic acid (FOLVITE) 1 mg tablet TAKE 2 TABLETS DAILY 180 tablet 3 03/18/2021 2 hydrOXYchloroQUIN E (PLAQUENIL) 200 mg tablet TAKE 1 TABLET DAILY 90 tablet 2 12/31/2020 2 lisinopriL (PRINIVIL,ZESTRIL ) 40 mg tabletIndications :Hypertension, essential Take 1 tablet (40 mg total) by mouth daily 90 tablet 1 02/26/2021 2 methotrexate 2.5 mg tablet TAKE 8 TABLETS BY MOUTH ONCE WEEKLY 96 tablet 04/11/2021 2 predniSONE (DELTASONE) 10 mg tablet 11/10/2019 2 sulfaSALAzine EN (AZULFIDINE EN) 500 mg EC tabletIndications :Rheumatoid Arthritis Take 2 tablets (1,000 mg total) by mouth 2 (two) times a day 360 tablet 1 04/19/2021 2 valACYclovir (Valtrex) 500 mg tabletIndications :Recurrent cold sores Take 1 tablet (500 mg total) by mouth daily 90 tablet 2 11/02/2020 2 documented as of this encounter Discharge Disposition Disposition Code Departure Means Destination Discharge to home or self care documented in this encounter Plan of Treatment Not on file documented as of this encounter Procedures Procedure Name Priority Date/Time Associated Diagnosis Comments XR FOOT RIGHT 3 OR MORE VIEWS Schedule Routine, Read Routine (OP Routine) 05/07/2021 2:49 PM PRIME MINISTER Bilateral foot pain XR FOOT LEFT 3 OR MORE VIEWS Schedule Routine, Read Routine (OP Routine) 05/07/2021 2:49 PM PRIME MINISTER Bilateral foot pain XR HAND RIGHT 3 OR MORE VIEWS Schedule Routine, Read Routine (OP Routine) 05/07/2021 2:49 PM PRIME MINISTER Rheumatoid 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 (CMS/HCC) (HCC) XR HAND LEFT 3 OR MORE VIEWS Schedule Routine, Read Routine (OP Routine) 05/07/2021 2:49 PM PRIME MINISTER Rheumatoid 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 (CMS/HCC) (HCC) documented in this encounter Results * XR Hand Right 3 or More Views (05/07/2021 2:49 PM PRIME MINISTER) Anatomical Region Laterality Modality Upper Extremities, Hand Right Computed Radiography 05/07/2021 3:01 PM PRIME MINISTER Impressions 05/07/2021 3:01 PM PRIME MINISTER 1. 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 2. No new erosion or joint space narrowing in the hands and feet. Electronically signed by: French Webster M.D. Narrative 05/07/2021 3:01 PM PRIME MINISTER EXAMINATION: XR HAND LEFT 3 OR MORE [...] XR PROCEDURES Final Resu lt * XR Foot Left 3 or More Views (05/07/2021 2:49 PM PRIME MINISTER) Anatomical Region Laterality Modality Lower Extremities, Foot Left Computed Radiography 05/07/2021 3:01 PM PRIME MINISTER Impressions 05/07/2021 3:01 PM PRIME MINISTER 1. 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 2. No new erosion or joint space narrowing in the hands and feet. Electronically signed by: French Webster M.D. Narrative 05/07/2021 3:01 PM PRIME MINISTER EXAMINATION: XR HAND LEFT 3 OR MORE [...] XR PROCEDURES Final Resu lt * XR Foot Right 3 or More Views (05/07/2021 2:49 PM PRIME MINISTER) Anatomical Region Laterality Modality Lower Extremities, Foot Right Computed Radiography 05/07/2021 3:01 PM PRIME MINISTER Impressions 05/07/2021 3:01 PM PRIME MINISTER 1. 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 2. No new erosion or joint space narrowing in the hands and feet. Electronically signed by: French Webster M.D. Narrative 05/07/2021 3:01 PM PRIME MINISTER EXAMINATION: XR HAND LEFT 3 OR MORE [...] PROCEDURES Final Resu lt * XR Hand Left 3 or More Views (05/07/2021 2:49 PM PRIME MINISTER) Anatomical Region Laterality Modality Upper Extremities, Hand Left Computed Radiography 05/07/2021 3:01 PM PRIME MINISTER Impressions 05/07/2021 3:01 PM PRIME MINISTER 1. 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 2. No new erosion or joint space narrowing in the hands and feet. Electronically signed by: French Webster M.D. Narrative 05/07/2021 3:01 PM PRIME MINISTER EXAMINATION: XR HAND LEFT 3 OR MORE [...] pain documented in this encounter Care Teams Equal Employment Opportunity Officer Relationship Specialty Start Date End Date Sylvia Dawson PA [address] [place] [address] PCP - General Internal Medicine 01/05/20 Erica Rodrigues MD [address] [facility] [address] [place] [address] Radiation Oncologist Radiation Oncology 10/25/18 Gasper Kaba MD [address] LL [address] [place] [address] Surgeon Surgical Oncology 10/25/18 Brandy Aguirre, LEAD JAVA J2EE DEVELOPER [address] [place] [address] Nurse Practitioner Certified Clinical Nurse Specialist 10/25/18 Jo-Ann Morrow, PhD [address] [place] [address] Nurse Practitioner Radiation Oncology 10/25/18 Christina Louis NP [address] [facility] # LL LL [address] [place] [address] Nurse Practitioner Medical Oncology 10/25/18 documented as of this encounter
--- OUTSIDE RECORDS SUMMARY | 2024-04-24 05:53 | XMS_ITS | Encounter Summary ---
Author Organization [facility] Healthcare Address [address] [place] [address] Care Team Providers Care Bending Shed Worker Name Role Phone Erica Rodrigues MD Unavailable Gasper Kaba MD Unavailable [phone] Brandy Aguirre Unavailable [phone] Jo-Ann Morrow PhD Unavailable [phone] Christina Louis NP Unavailable [phone] Sylvia Dawson Primary Care Provider [phone] Reason for Referral * Diagnostic Imaging (Routine) - Closed Specialty Diagnoses / Procedures Referred By Niranjan farrell Referred To Contact Diagnoses History of right breast cancer Procedures US Breast Right Limited Brandy Aguirre CNS Phone: tel: fax: [address] [address] Referral ID Status Reason Start Date Expiration Date Visits Re quested Visits Authorized [id number] Closed 04/02/2021 05/02/2022 1 1 MOBILE BRAKE BONDER Reason for Visit * Diagnostic Imaging (Routine) - Closed Specialty Diagnoses / Procedures Referred By Niranjan farrell Referred To Contact Diagnoses History of right breast cancer Procedures US Breast Right Limited Brandy Aguirre CNS Phone: tel: fax:[phone] [address] Referral ID Status Reason Start Date Expiration Date Visits Re quested Visits Authorized [id number] Closed 04/02/2021 05/02/2022 1 1 Encounter Details Date Type Department Care Team (Latest Contact Info) Description 05/23/2021 2:02 PM AUTOMOBILE BRAKE BONDER - 05/23/2021 11:59 PM AUTOMOBILE BRAKE BONDER Hospital Encounter [facility] [address] [place] [address] 1, Brandy Heller Md, [facility] [address] [address] History of right breast cancer Discharge Disposition: [...] on file Legal Sex Female 3:42 AM AUTOMOBILE BRAKE BONDER Gender Identity Not on file Sexual Orientation Not on file 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 Recommendation Annual screening mammogram Electronically signed by: Kailee Harris M.D. Narrative 05/23/2021 2:53 PM AUTOMOBILE BRAKE BONDER EXAM: ??US BREAST RIGHT LIMITED DATE: 05/23/2021 2:30 PM CLINICAL HISTORY: Right lumpectomy, radiation therapy and chemotherapy for carcinoma 2015., ??Right breast pain, TECHNIQUE: Multiple ultrasonographic images of the right breast obtained ?? Comparison none FINDINGS: Real-time examination of the right breast is performed in the area of pain and at lumpectomy site. In the area of pain there is ??dense fibroglandular breast parenchyma without any evidence of solid or a cystic mass. At lumpectomy site at 11:00 there is 2.4 cm x 0.9 cm x 1.1 cm anechoic area without any blood flow suggestive of seroma/hematoma. Brandy Aguirre MUSTANGER IMG MAMMO PROCEDURES Final R esult documented in this encounter Visit Diagnoses Diagnosis History of right breast cancer documented in this encounter Care Teams Bending Shed Worker Relationship Specialty Start Date End Date Sylvia Dawson PA [address] [facility] [address] [place] [address] PCP - General Internal Medicine 01/05/20 Erica Rodrigues MD [address] LL [facility] [address] [place] [address] Radiation Oncologist Radiation Oncology 10/25/18 Gasper Kaba MD [address] LL [facility] [address] [place] [address] Surgeon Surgical Oncology 10/25/18 Brandy Aguirre CNS [address] LL [facility] [address] [place] [address] Nurse Practitioner Certified Clinical Nurse Specialist 10/25/18 Jo-Ann Morrow, PhD [address] [place], [place] [id number] Nurse Practitioner Radiation Oncology 10/25/18 Christina Louis BUS TRANSPORTATION MANAGER [address] [place], [place] [address] Nurse Practitioner Medical Oncology 10/25/18 documented as of this encounter
--- OUTSIDE RECORDS SUMMARY | 2024-04-24 05:53 | XMS_ITS | Encounter Summary ---
Author Organization [facility] Address [address] [place] [address] Phone Care Team Providers Care Land Classifier Name Role Phone Erica Rodrigues MD Unavailable Gasper Kaba MD Unavailable [phone] Brandy Aguirre CONTRACT FORESTER Unavailable [phone] Jo-Ann Morrow PhD Unavailable [phone] Christina Louis TRANSMISSION INSPECTOR Unavailable [phone] Sylvia Dawson Primary Care Provider [phone] Reason for Referral * Diagnostic Imaging (Routine) - Closed Specialty Diagnoses / Procedures Referred By Contac t Referred To Contact Diagnoses Cystoid macular edema of both eyes Procedures OCT, Retina - OU - Both Eyes Jessy Adame MD [address] [place] [address] [address] [place] [address] Phone: tel: fax: [facility] (All Locations) Referral ID Status Reason Start Date Expiration Date Visits Re quested Visits Authorized [id number] Closed 10/21/2021 11/20/2022 1 1 Encounter Details Date Type Department Care Team (Late st Contact Info) Description 10/21/2021 12:50 PM CDT Office Visit 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 HPI 4 week FU Pt reports vision is stable Denies: pain, redness, new FF Durzol :QID OS, 6X OD Refresh PRN MTX, VALTREX and PlaQ, sulfasalazine Last edited by MeansMary on 10/21/2021 12:50 PM. (History) Assessment/Plan Diagnoses and all orders for [...] drops; Administer 1 drop into both eyes 4 (four) times a day OCT, Retina - OU - Both Eyes Right Eye Quality was good. Scan locations included subfoveal. Progression has improved. Findings include intraretinal fluid. Left Eye Quality was good. Progression has improved. Notes OD - CME with subretinal ellipsoid irregularity - improved OS - improved CME with subretinal ellipsoid and RPE irregularity. The signs and symptoms of retinal detachment, tears, infection, elevated intra- ocular pressure werereviewed with the patient. Patient knows to call should they have any of the symptoms. PLAN FOR NEXT VISIT Follow-up and Dispositions ?? Return in about 4 weeks (around 11/18/2021) for Dilated exam OU, OCT OU. documented in this encounter Miscellaneous Notes * Assessment & Plan Note - Jessy Adame MD - 10/21/2021 1:12 PM CDT Associated Problem(s): Cystoid macular edema [...] RETINA - OU - BOTH EYES Routine 10/21/2021 1:22 PM CDT Cystoid macular edema of both eyes documented in this encounter Results * OCT, Retina - OU - Both Eyes (10/21/2021 1:22 PM CDT) Anatomical Region Laterality Modality Head Optical Coherenc e Tomography Narrative 10/21/2021 1:22 PM CDT Right Eye Quality was good. Scan locations included subfoveal. Progression has improved. Findings include intraretinal fluid. Left Eye Quality was good. Progression has improved. Notes OD - CME with subretinal ellipsoid irregularity - improved OS - improved CME with subretinal ellipsoid and RPE irregularity. us Jessy Adame MD OPHTH TOMOGRAPHY Final Res ult documented in this encounter Visit Diagnoses Diagnosis Cystoid macular edema of both eyes- Primary Cystoid macular degeneration of retina documented in this encounter Discontinued Medications Medication Sig Discontinue Reason Start Date End Da te difluprednate (DUREZOL) 0.05 % dropsIndications:Cystoid macular edema of both eyes Right eye - 6x/day, Left eye - 4X/day 09/19/2021 10/21/2021 documented as of this encounter Eye Exam Visual Acuity (Snellen - Linear) Right eye Left eye Dist cc 20/30 20/30 Tonometry (Tonopen, 12:53 PM) Right eye Left eye Pressure 16 17 Pupils Dark Light Shape React APD Right eye 3 2 Round Brisk None Left eye 3 2 Round Brisk None Dilation Both eyes: 1% Tropicamide @ 12:53 PM External Exam Right eye Left eye [...] Normal C/D Ratio 0.2 0.1 Macula Reeves ring, Subretin al yellowish material, Reeves ring, Subretinal yellowish material Vessels Normal Normal Periphery flat, vit syn flat, vit syn Care Teams Land Classifier Relationship Specialty Start Date End Date Sylvia Dawson PA [address] [facility] [facility] [address] [place], [place] [phone] PCP - General Internal Medicine 01/05/20 Erica Rodrigues MD [address] LL [facility] [address] [place] [address] Radiation Oncologist Radiation Oncology 10/25/18 Gasper Kaba MD [address] [facility] [address] [place] [address] Surgeon Surgical Oncology 10/25/18 Brandy Aguirre, CONTRACT FORESTER [address] [facility] [address] [place] [address] Nurse Practitioner Certified Clinical Nurse Specialist 10/25/18 Jo-Ann Morrow, PhD [address] LL [facility] [address] [place] [address] Nurse Practitioner Radiation Oncology 10/25/18 Christina Louis NP [address] [facility] # [address] [place] [address] Nurse Practitioner Medical Oncology 10/25/18 documented as of this encounter
--- OUTSIDE RECORDS SUMMARY | 2024-04-24 05:53 | XMS_ITS | Encounter Summary ---
Author Organization [facility] Address [address] [place] [address] Phone Care Team Providers Care Medical Sociologist Name Role Phone Erica Rodrigues MD Unavailable Gasper Kaba MD Unavailable Brandy Aguirre TERRITORY ACCOUNT EXECUTIVE Unavailable [phone] Jo-Ann Morrow PhD Unavailable [phone] Christina Louis LIGHT EQUIPMENT OPERATOR Unavailable [phone] Sylvia Dawson Primary Care Provider [phone] Encounter Details Date Type Department Care Team (Late st Contact Info) Description 09/04/2021 Telephone [facility] Rheumatology [address] [facility] 5th [place] [address] [place] [address] Patricia Martinez MD [address] [facility] [address] [place] [address] Social History Tobacco Use Types Packs/Day Years [...] on file 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 Gender Identity Not on file Sexual Orientation Not on file 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 on file Not on file Not on file documented as of this encounter Miscellaneous Notes * Telephone Encounter - Hortencia Marlow RMA - 09/04/2021 8:31 AM CDT Labs uploaded documented in this encounter Plan of Treatment Not on file documented as of this encounter Visit Diagnoses Not on filedocumented in this encounter Care Teams Medical Sociologist Relationship Specialty Start Date End Date Sylvia Dawson PA [address] [phone] PCP - General Internal Medicine 01/05/20 Erica Rodrigues MD [address] LL [facility] [address] [place] [address] Radiation Oncologist Radiation Oncology 10/25/18 Gasper Kaba MD [address] [place] [address] Surgeon Surgical Oncology 10/25/18 Brandy Aguirre CNS [address] [place] [address] Nurse Practitioner Certified Clinical Nurse Specialist 10/25/18 Jo-Ann Morrow, PhD [address] [facility] [address] LL [address] [place] [address] Nurse Practitioner Radiation Oncology 10/25/18 Christina Louis, JENNI [address] [facility] [address] LL [address] [place] [address] Nurse Practitioner Medical Oncology 10/25/18 documented as of this encounter
--- OUTSIDE RECORDS SUMMARY | 2024-04-24 05:53 | XMS_ITS | Encounter Summary ---
Author Organization [facility] Address [address] [place] [address] Care Team Providers Care Recreation Teacher Name Role Phone Erica Rodrigues MD Unavailable Gasper Kaba MD Unavailable Brandy Aguirre HISTOTECHNOLOGIST SUPERVISOR Unavailable [phone] Jo-Ann Morrow PhD Unavailable [phone] Christina Louis BIRD KEEPER Unavailable [phone] Sylvia Dawson Primary Care Provider [phone] Reason for Visit * Reason Onset Date Comments FYI 06/20/2021 Encounter Details Date Type Department Care Team (Late st Contact Info) Description 06/20/2021 Telephone [facility] Family Medicine [address] [place] [address] Sylvia Dawson PA [address] [place] [address] FYI Social History Tobacco Use Types Packs/Day Years [...] on file 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 117/77 Pulse:64 and 115/78 Pulse:59 CH TRIMMER * Telephone Encounter - Sylvia Dawson PA - 06/20/2021 4:13 PM PAUNCH TRIMMER Noted. Call and check on her on Thursday and get a reading again for her bp. CH TRIMMER * Telephone Encounter - Barbra Alarcon LPN - 06/20/2021 3:06 PM PAUNCH TRIMMER Patient called to report update. She had cataract surgery on Thursday for R eye. Starting then and through Thursday she reports feeling exhausted and had a BP Thursday AM of 88/67. She checked her BP again in the evening and it was 125/93. She has started to feel better today and her blood pressure is 124/76. She is eating, drinking plenty of fluids and has no s/s of hypotension. Advised her to continue to monitor BP and call PCP office with any changes. She agreed. CH TRIMMER documented in this encounter Plan of Treatment Not on file documented as of this encounter Visit Diagnoses Not on filedocumented in this encounter Care Teams Recreation Teacher Relationship Specialty Start Date End Date Sylvia Dawson PA [address] [place] [address] PCP - General Internal Medicine 01/05/20 Erica Rodrigues MD [address] [facility] [address] [place] [address] Radiation Oncologist Radiation Oncology 10/25/18 Gasper Kaba MD [address] [facility] [address] [place] [address] Surgeon Surgical Oncology 10/25/18 Brandy Aguirre, HISTOTECHNOLOGIST SUPERVISOR [address] [facility] [address] [place] [address] Nurse Practitioner Certified Clinical Nurse Specialist 10/25/18 Jo-Ann Morrow, PhD [address] [facility] [address] [place] [address] Nurse Practitioner Radiation Oncology 10/25/18 Christina Louis NP [address] [facility] [address] [place] [address] Nurse Practitioner Medical Oncology 10/25/18 documented as of this encounter
--- OUTSIDE RECORDS SUMMARY | 2024-04-24 05:53 | XMS_ITS | Encounter Summary ---
Author Organization [facility] Address [address] [place] [address] Phone Care Team Providers Care Application Processor Name Role Phone rEica Rodrigues MD Unavailable Gasper Kaba MD Unavailable [phone] Brandy Aguirre RELAY ADJUSTER Unavailable [phone] Jo-Ann Morrow PhD Unavailable [phone] Christina Louis ASSISTANT FRONT OFFICE MANAGER Unavailable [phone] Sylvia Dawson Primary Care Provider [phone] Reason for Referral * Diagnostic Imaging (Routine) - Closed Specialty Diagnoses / Procedures Referred By Contac t Referred To Contact Diagnoses Cystoid macular edema of both eyes Procedures OCT, Retina - OU - Both Eyes Jessy Adame MD [address] [place] [address] [address] [place] [address] Phone: tel: fax: [facility] (All Locations) Referral ID Status Reason Start Date Expiration Date Visits Re quested Visits Authorized [id number] Closed 08/19/2021 09/18/2022 1 1 Encounter Details Date Type Department Care Team (Late st Contact Info) Description 08/19/2021 8:30 AM CDT Office Visit [facility] Ophthalmology [facility] [address] 6th [place] [address] Jessy Adame MD [address] [place], [place] [id number] Cystoid macular edema of both eyes (Primary [...] file Legal 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 documented in this encounter Ordered Prescriptions Prescription Sig Dispense Quantity Refills Last Filled Start Date End Date difluprednate (DUREZOL) 0.05 % dropsIndications:C ystoid macular edema of both eyes Administer 1 drop into both eyes 4 (four) times a day 10 mL 11 08/19/2021 2 documented in this encounter Progress Notes * Jessy Adame MD - 08/19/2021 8:30 AM CDT ASSESSMENT/ORDERS/PROCEDURES PERFORMED TODAY No chief complaint on file. 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 Camarillo told her he would not do surgery for floaters, Rabia retired, she then saw Dr. Nixon who recommended that she cataract surgery then he would do the vitrectomy surgery for floaters. Had Cat SRachelle OS May 30 2021, June 17 OD Cat iRa, After cataract surgery, was on imprimis drops, was told that she has from persistent inflammation and was switched to prednisolone eye drops. Vision has worsened after cataract surgery, was told CME in OS, saw Dr. Nixon who recommend starting Lotemax instead of prednisolone drops. He also started Prolensa. This is all in the left eye only. Ocular drops: started in August 05 Loteman: QID OS Prolensa : BID OS Taking MTX, VALTREX and PlaQ, sulfasalazine, Hx of RA Last edited by Jessy Adame MD on 08/19/2021 9:50 AM. (History) Assessment/Plan Diagnoses and all orders for this visit: Cystoid macular edema of both eyes (Primary) Assessment & Plan: History of at a distance a history of breast cancer, required Arimidex, developed rheumatoid arthritis. Currently on methotrexate Plaquenil and sulfasalazine Has had floaters since 2015, underwent cataract extraction intra-ocular lens placement in both eyesin preparation for vitrectomy surgery for the floaters. Was subsequently found to have cystoid macular edema more profound in the left, however angiographydemonstrates CME in the right as well. Changed from prednisolone to Lotemax and Prolensa only in Left eye. Patient arrives to us today seeking a 2nd regarding her ocular condition. She was told also that she may benefit from YAG capsulotomy. She would like to transfer care to [facility] as her other doctors are also in [...] both eyes, recommend a trial of p.o. prednisone,verses subtenon Kenalog injections to both eyes. If this does not help her then would move on to vitrectomy surgery as well. I see no other evidence for toxicity from Plaquenil, I think it is okay for her to continue this medication. Would hold off on YAG capsulotomy until the cystoid macular edema is under control. Orders: - OCT, Retina - OU - Both Eyes - Fluorescein Angiography - OU - Both Eyes - difluprednate (DUREZOL) 0.05 % drops; Administer 1 drop into both eyes 4 (four) times a day OCT, Retina - OU - Both Eyes Right Eye Quality was good. Scan locations included subfoveal. Findings include intraretinal fluid. Left Eye Quality was good. Scan locations included subfoveal. Findings include intraretinal fluid. Fluorescein Angiography - OU - Both Eyes Time Out Informed consent was obtained after all risks, benefits and alternatives were explained to the patient. The patient understood, agreed and wished to proceed. Timeout was completed verifing the patient, procedure, laterality and allergies. Right Eye Quality was good. Left Eye Quality was good. FA - Lot Number and Expiration Date [id number] 02/09/2023. Notes Transit Left eye Consented patient for FA OU - KK Cystoid macular edema both eyes, without vasculitis or non perfusion. The signs and symptoms of retinal detachment, tears, infection, elevated intra- ocular pressure werereviewed with the patient. Patient knows to call should they have any of the symptoms. PLAN FOR NEXT VISIT Follow-up and Dispositions Check-out Note: Two weeks-IOP check Four weeks-dilated exam, OCT OU. documented in this encounter Miscellaneous Notes * Assessment & Plan Note - Jessy Adame MD - 08/19/2021 10:40 AM CDT Associated Problem(s): Cystoid macular edema of both eyes History of at a distance a history of breast cancer, required Arimidex, developed rheumatoid arthritis. Currently on methotrexate Plaquenil and sulfasalazine Has had floaters since 2016, underwent cataract extraction intra-ocular lens placement in both eyesin preparation for vitrectomy surgery for the floaters. Was subsequently found to have cystoid macular edema more profound in the left, however angiographydemonstrates CME in the right as well. Changed from prednisolone to Lotemax and Prolensa only in Left eye. Patient arrives to us today seeking a 2nd regarding her ocular condition. She was told also that she may benefit from YAG capsulotomy. She would like to transfer care to [facility] as her other doctors are also in [...] both eyes, recommend a trial of p.o. prednisone,verses subtenon Kenalog injections to both eyes. If this does not help her then would move on to vitrectomy surgery as well. I see no other evidence for toxicity from Plaquenil, I think it is okay for her to continue this medication. Would hold off on YAG capsulotomy until the cystoid macular edema is under control. documented in this encounter Plan of Treatment Not on file documented as of this encounter Procedures Procedure Name Priority Date/Time Associated Diagnosis Comments OCT, RETINA - OU - BOTH EYES Routine 08/19/2021 10:55 AM CDT Cystoid macular edema of both eyes FLUORESCEIN ANGIOGRAPHY - OU - BOTH EYES Routine 08/19/2021 10:55 AM CDT Cystoid macular edema of both eyes documented in this encounter Results * OCT, Retina - OU - Both Eyes (08/19/2021 10:55 AM CDT) Anatomical Region Laterality Modality Head Optical Coherenc e Tomography Narrative 08/19/2021 10:55 AM CDT Right Eye Quality was good. Scan locations included subfoveal. Findings include intraretinal fluid. Left Eye Quality was good. Scan locations included subfoveal. Findings include intraretinal fluid. Jessy Adame MD OPHTH TOMOGRAPHY Final Res ult * Fluorescein Angiography - OU - Both Eyes (08/19/2021 10:55 AM CDT) Anatomical Region Laterality Modality Head Fundus Photograp hy Narrative 08/19/2021 10:55 AM CDT Time Out Informed consent was obtained after all risks, benefits and alternatives were explained to the patient. The patient understood, agreed and wished to proceed. Timeout was completed verifing the patient, procedure, laterality and allergies. Right Eye Quality was good. Left Eye Quality was good. FA - Lot Number and Expiration Date [id number] 02/09/2023. Notes Transit Left eye Consented patient for FA OU - KK Cystoid macular edema both eyes, without vasculitis or non perfusion. Jessy Adame MD OPHTH PHOTOGRAPHY Final Re sult documented in this encounter Visit Diagnoses Diagnosis Cystoid macular edema of both eyes- Primary Cystoid macular degeneration of retina documented in this encounter Discontinued Medications Medication Sig Discontinue Reason Start Date End Da te predniSONE (DELTASONE) 10 mg tablet Other 11/10/2019 08/19/2021 documented as of this encounter Eye Exam Visual Acuity (Snellen - Linear) Right eye Left eye Dist sc 20/25 +1 20/50 Dist ph sc NI Tonometry (Tonopen, 8:59 AM) Right eye Left eye Pressure 15 15 Pupils Dark Light Shape React APD Right eye 3 2 Round Brisk None Left eye 3 2 Round Brisk None Visual Grossman (Counting fingers) Right eye Left eye Full Full Neuro/Psych Mood/Affect: Normal Dilation Both eyes: 1% Tropicamide @ 9:00 AM External Exam Right eye Left eye [...] lens, 2+ Posterior capsular opacification Vitreous Normal, , 1+ No cell Normal, 1+ No cell Fundus Exam Right eye Left eye Disc Normal Normal C/D Ratio 0.2 0.1 Macula Cystoid macular edema Cystoid ma cular edema Vessels Normal Normal Periphery vit syn Vit syn Care Teams Application Processor Relationship Specialty Start Date End Date Sylvia Dawson PA [address] [place] [address] PCP - General Internal Medicine 01/05/20 Erica Rodrigues MD [address] [place] [address] Radiation Oncologist Radiation Oncology 10/25/18 Gasper Kaba MD [address] [place] [address] Surgeon Surgical Oncology 10/25/18 Brandy Aguirre, RELAY ADJUSTER [address] [place] [address] Nurse Practitioner Certified Clinical Nurse Specialist 10/25/18 Jo-Ann Morrow, PhD [address] [place] [address] Nurse Practitioner Radiation Oncology 10/25/18 Christina Louis, ASSISTANT FRONT OFFICE MANAGER [address] [place] [address] Nurse Practitioner Medical Oncology 10/25/18 documented as of this encounter
--- OUTSIDE RECORDS SUMMARY | 2024-04-24 05:53 | XMS_ITS | Encounter Summary ---
Author Organization [facility] Address [address] [place] [address] Phone Care Team Providers Care Poultry Slaughterer Name Role Phone Erica Rodrigues MD Unavailable Gasper Kaba MD Unavailable Brandy Aguirre CITY ALDERMAN Unavailable [phone] Jo-Ann Morrow PhD Unavailable [phone] Christina Louis [place] Unavailable [phone] Sylvia Dawson Primary Care Provider [phone] Reason for Referral * Diagnostic Imaging (Routine) - Closed Specialty Diagnoses / Procedures Referred By Contac t Referred To Contact Diagnoses 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 Procedures OCT, Retina - OU - Both Eyes Murphy Paul MD Phone: tel: fax: [facility] (All Locations) Referral ID Status Reason Start Date Expiration Date Visits Re quested Visits Authorized [id number] Closed 09/19/2021 10/19/2022 1 1 Reason for Visit * Reason Comments Cystoid macular edema of both eyes Encounter Details Date Type Department Care Team (Late st Contact Info) Description 09/19/2021 10:40 AM CDT Office Visit [facility] Ophthalmology [address] [facility] [facility] [address] 6th [place] [id number] Jessy Adame MD [address] [facility] [address] [place], [place] [id number] Cystoid macular edema of both eyes (Primary Dx); Pattern dystrophy of macula Social History Tobacco [...] on file 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 Gender Identity Not on file Sexual Orientation Not on file 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 Cystoid macular edema of both eyes HPI 4 week FU Vision is stable OS , OD is decreasing Denies: pain, redness, newFF Durzol :QID OU Refresh QID OU Taking MTX, VALTREX and PlaQ, sulfasalazine, Last edited by Mary Mcgee on 09/19/2021 10:49 AM. (History) Assessment/Plan Diagnoses and all orders [...] topical NSAID vs. PO prednisone vs. STK Orders: - OCT, Retina - OU - Both Eyes - difluprednate (DUREZOL) 0.05 % drops; Right eye - 6x/day, Left eye - 4X/day Pattern dystrophy of macula - OCT, Retina - OU - Both Eyes OCT, Retina - OU - Both Eyes Right Eye Quality was good. Scan locations included subfoveal. Progression has been stable. Left Eye Quality was good. Progression has improved. Notes OD - CME with subretinal ellipsoid irregularity. OS - improved CME with subretinal ellipsoid and RPE irregularity. The signs and symptoms of retinal detachment, tears, infection, elevated intra- ocular pressure werereviewed with the patient. Patient knows to call should they have any of the symptoms. PLAN FOR NEXT VISIT Follow-up and Dispositions ?? Return in about 4 weeks (around 10/17/2021) for DFE OU, OCT Mac . I have examined the patient, reviewed and edited the chart as needed, and discussed the findings, diagnosis and plan with the resident. I agree with the findings, diagnosis, plan that we have createdand documented. Jessy Adame MD documented in this encounter Miscellaneous Notes * Assessment & Plan Note - Murphy Paul MD - 09/19/2021 11:05 AM CDTAssociated Problem(s): Cystoid macular edema of [...] topical NSAID vs. PO prednisone vs. 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 Scan locations included subfoveal. Progression has been stable. Left Eye Quality was good. Progression has improved. Notes OD - CME with subretinal ellipsoid irregularity. OS - improved CME with subretinal ellipsoid and RPE irregularity. 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 documented in this encounter Discontinued Medications Medication Sig Discontinue Reason Start Date End Da te difluprednate (DUREZOL) 0.05 % dropsIndications:Cysto id macular edema of both eyes Administer 1 drop into both eyes 4 (four) times a day 08/19/2021 09/19/2021 documented as of this encounter Eye Exam Visual Acuity (Snellen - Linear) Right eye Left eye Dist sc 20/150 20/80 +2 Dist ph sc 20/80 +1 20/50 Correction: Glasses Tonometry (Tonopen, 10:54 AM) Right eye Left eye Pressure 19 18 Pupils Dark Light Shape React APD Right eye 4 3 Round Minimal None Left eye 4 3 Round Minimal None Dilation Both eyes: 1% Tropicamide @ 10:54 AM External Exam Right eye Left eye External Normal Normal Slit Lamp Exam Right eye Left eye Lids/Lashes Normal Normal Conjunctiva/Sclera White and quiet White and gael et Cornea 1-2+ PEE Clear Anterior Chamber Deep and quiet Deep and quiet Iris Round and reactive Round and ersamo ctive Lens Posterior chamber in traocular lens, 2+ Posterior capsular opacification Posterior chamber intraocular lens, 2+ Posterior capsular opacification Vitreous Normal, No cell Normal, No cell Fundus Exam Right eye Left eye Disc Normal Normal C/D Ratio 0.2 0.1 Macula Reeves ring, Subretin al yellowish material, Cystoid macular edema Cystoid macular edema, Reeves ring, Subretinal yellowish material Vessels Normal Normal Periphery flat, vit syn flat, vit syn Care Teams Poultry Slaughterer Relationship Specialty Start Date End Date Sylvia Dawson PA [address] [place] [address] PCP - General Internal Medicine 01/05/20 Erica Rodrigues MD [address] [place] [address] Radiation Oncologist Radiation Oncology 10/25/18 Gasper Kaba MD [address] [place] [address] Surgeon Surgical Oncology 10/25/18 Brandy Aguirre, CITY ALDERMAN [address] [place] [address] Nurse Practitioner Certified Clinical Nurse Specialist 10/25/18 Jo-Ann Morrow, PhD [address] [place] [address] Nurse Practitioner Radiation Oncology 10/25/18 Christina Louis NP [address] [place] [address] Nurse Practitioner Medical Oncology 10/25/18 documented as of this encounter
--- OUTSIDE RECORDS SUMMARY | 2024-04-24 05:54 | XMS_ITS | Encounter Summary ---
Author Organization [facility] Address [address] [place] [address] Care Team Providers Care Beam Dyer Operator Name Role Phone Erica Rodrigues MD Unavailable Gasper Kaba MD Unavailable [phone] Brandy Aguirre ICING MIXER Unavailable [phone] Jo-Ann Morrow PhD Unavailable [phone] Christina Louis KETTLE GIRL Unavailable [phone] Sylvia Dawson Primary Care Provider [phone] Reason for Visit * Reason Comments Follow-up Encounter Details Date Type Department Care Team (Late st Contact Info) Description 08/22/2020 11:15 AM CDT Office Visit [facility] Family Medicine [address] [place] [address] Sylvia Dawson PA [address] [place] [address] Fatigue, unspecified type (Primary Dx); Hypertension, essential; Mixed hyperlipidemia; BMI 24.0-24.9, adult; History of COVID-19 Social History Tobacco Use Types Packs/Day Years Used Date Smoking Tobacco: Never Smokeless Tobacco: Never Alcohol Use Standard Drinks/Week Comments Yes 1 (1 standard drink = 0.6 oz pur e alcohol) social AUDIT-C Answer Date Recorded Q1: How often do you have a drink containing alc ohol? Never 06/11/2020 Average Number of Drinks Not on file 021 Q3: How often do you have si x or more drinks on one occasion? 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 Not on file Not on file Not on file documented as of this encounter Last Filed Vital Signs Vital Sign Reading Time Taken Comments Blood Pressure 128/80 08/22/2020 10:57 AM CDT Pulse 60 08/22/2020 10:57 AM CDT Temperature 36.5 ??C (97.7 ??F) 08/22/2020 1 0:57 AM CDT Respiratory Rate - - Oxygen Saturation 98% 08/22/2020 10: 57 AM CDT Inhaled Oxygen Concentration - - Weight 62.5 kg (137 lb 11.2 oz) 021 10:57 AM CDT Height 160 cm (5' 3 ) 08/22/2020 10:57 AM CDT Body Mass Index 24.39 08/22/2020 10:57 AM CDT documented in this encounter Progress Notes * Sylvia Dawson PA - 08/22/2020 11:15 AM CDT Images from the original note were not included. Subjective/Objective Patient ID: Yesika Denney is a 60 y.o. female. Chief Complaint Follow-up HPI Patient presents to followup memory stuff and fatigue. Feels tired. Bp is erratic . 140/94 last night 99/[address] Thompson started her on atenolol 75 and she felt like her heart rate was too low so decreased to 50mg and has felt much better with the heart rate. Prior to COVID (04/2020) she had been stable on the 50 and was increased after COVID to 75. Now she is feeling very tired. Wants to followup with Dr. Benitez to see if able to have better control of her bp/less fatigue. CXR order given, patient planning to get done to followup COVID. ROMAN are fine/stable. Has not gone for COVID vaccine. Rheum sxs are stable. Review of Systems Constitutional: Negative for fever. HENT: Negative for congestion. Respiratory: Negative for shortness of breath. Cardiovascular: Negative for chest pain. Gastrointestinal: Negative for constipation and diarrhea. Vitals: 08/22/20 1057 BP: 128/80 BP Location: Left arm Patient Position: Sitting Pulse: 60 Temp: 36.5 ??C (97.7 ??F) TempSrc: Oral SpO2: 98% Weight: 62.5 kg (137 lb 11.2 oz) Height: 160 cm (5' 3 ) Physical Exam Vitals and nursing note reviewed. Constitutional: Appearance: She is well-developed. HENT: Head: Normocephalic and atraumatic. Eyes: Comments: Pupils are equal Cardiovascular: Rate and Rhythm: Normal rate and regular rhythm. Heart sounds: No murmur. Pulmonary: Effort: Pulmonary effort is normal. Breath sounds: Normal breath sounds. Abdominal: Palpations: Abdomen is soft. Tenderness: There is no abdominal tenderness. Skin: General: Skin is warm and dry. Findings: No rash. Neurological: Mental Status: She is alert and oriented to person, place, and time. Assessment/Plan Diagnoses and all orders for this visit: Fatigue, unspecified type (R53.83) (Primary) Assessment & Plan: Probably multifactorial. Check labs [...] She is in agreement with this plan Orders: - TSH; Future - CBC with auto differential; Future Hypertension, essential (I10) Assessment & Plan: Bp is stable/in acceptable range for any co-morbidities. Encouraged to limit sodium intake and exercise for weight control. Pt states bp is fluctuating up and down. Wants to return to Dr. Victor for further evaluation. She is a current patient so she will set her own appointment Mixed hyperlipidemia (E78.2) Assessment & Plan: Encouraged patient to follow fat/low chol diet like the Mediterranean diet. Increase good fats inthe diet. Increase exercise. Monitor labs as needed. Orders: - Comprehensive metabolic panel; Future - Lipid panel; Future BMI 24.0-24.9, adult (Z68.24) Assessment & Plan: Weight/BMI is in healthy range. Continue healthy lifestyle to maintain. History of COVID-19 (Z86.16) Assessment & Plan: Recheck CXR to determine full resolution of the COVID pneumonia Sylvia Dawson PA-C documented in this encounter Miscellaneous Notes * Assessment & Plan Note - Sylvia Dawson PA - 08/22/2020 10:36 PM CDT Associated Problem(s): Fatigue Probably multifactorial. Check labs [...] She is in agreement with this plan * Assessment & Plan Note - Sylvia Dawson PA - 08/22/2020 10:36 PM CDT Associated Problem(s): History of COVID-19 Recheck CXR to determine full resolution of the COVID pneumonia * Assessment & Plan Note - Sylvia Dawson PA - 08/22/2020 10:36 PM CDT Associated Problem(s): Mixed hyperlipidemia Encouraged patient to follow fat/low chol diet like the Mediterranean diet. Increase good fats inthe diet. Increase exercise. Monitor labs as needed. * Assessment & Plan Note - Sylvia Dawson PA - 08/22/2020 10:35 PM CDT Associated Problem(s): Hypertension, essential Bp is stable/in acceptable range for any co-morbidities. Encouraged to limit sodium intake and exercise for weight control. Pt states bp is fluctuating up and down. Wants to return to Dr. Victor for further evaluation. She is a current patient so she will set her own appointment * Assessment & Plan Note - Brandi Hernandez MA - 08/22/2020 11:01 AM CDT Associated Problem(s): BMI 24.0-24.9, adult (Resolved 02/26/2021) Weight/BMI is in healthy range. Continue healthy lifestyle to maintain. documented in this encounter Plan of Treatment Scheduled Orders Name Type Priority Associated Diagnoses Orde r Schedule TSH Lab Routine Fatigue, unspecified type Expected: 08/22/2020, Expires: 08/22/2021 CBC with auto differential Lab Routine Fatigue, unspecified type Expected: 08/22/2020, Expires: 08/22/2021 Comprehensive metabolic panel Lab Routine Mixed hyperlipidemia Expected: 08/22/2020, Expires: 08/22/2021 Lipid panel Lab Routine Mixed hyperlipidemia Expected: 08/22/2021, Expires: 08/22/2021 documented as of this encounter Visit Diagnoses Diagnosis Fatigue, unspecified type- Primary Hypertension, essential Unspecified essential hypertension Mixed hyperlipidemia BMI 24.0-24.9, adult History of COVID-19 documented in this encounter Discontinued Medications Medication Sig Discontinue Reason Start Date End Da te atenoloL (TENORMIN) 25 mg tablet Take 1 tablet (25 mg total) by mouth daily Take 25 mg + 50 mg for total of 75 mg daily 07/18/2020 08/22/2020 documented as of this encounter Additional Health Concerns Infection Onset Date Last Indicated Resolved Time COVID: Recovered Comment:Added based on recent COVID infection. 05/22/2020 05/26/2020 09/19/2020 3:05 AM C DT documented as of this encounter Care Teams Beam Dyer Operator Relationship Specialty Start Date End Date Sylvia Dawson PA [address] [facility] [address] [place] [address] PCP - General Internal Medicine 01/05/20 Erica Rodrigues MD [address] [place] [address] Radiation Oncologist Radiation Oncology 10/25/18 Gasper Kaba MD [address] [place] [address] Surgeon Surgical Oncology 10/25/18 Brandy Aguirre, ICING MIXER [address] [place] [address] Nurse Practitioner Certified Clinical Nurse Specialist 10/25/18 Jo-nAn Morrow, PhD [address] [place] [address] Nurse Practitioner Radiation Oncology 10/25/18 Christina Louis NP [address] [facility] [address] [place] [address] Nurse Practitioner Medical Oncology 10/25/18 documented as of this encounter
--- OUTSIDE RECORDS SUMMARY | 2024-04-24 05:54 | XMS_ITS | Encounter Summary ---
Author Organization [facility] Address [address] [place] [address] Care Team Providers Care Ropewalk Rope Maker Name Role Phone Erica Rodrigues MD Unavailable Gasper Kaba MD Unavailable Brandy Aguirre Unavailable [phone] Jo-Ann Morrow PhD Unavailable [phone] Christina Louis FLAVORING MACHINE OPERATOR Unavailable [phone] Sylvia Dawson Primary Care Provider [phone] Reason for Visit * Cardiology (Routine) - Closed Specialty Diagnoses / Procedures Referred By Contac t Referred To Contact Diagnoses History of COVID-19 Procedures Transthoracic Echo Complete W Doppler/CF Renetta Bean NP [address] [place] [address] Phone: tel: fax: [facility] Referral ID Status Reason Start Date Expiration Date Visits Re quested Visits Authorized [id number] Closed 09/19/2020 10/18/2020 1 1 Encounter Details Date Type Department Care Team (Latest Contact Info) Description 09/20/2020 8:15 AM CDT Ancillary Procedure [facility] Cardiology [address] [place] [id number] History of COVID-19 Social History Tobacco Use [...] file Legal 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 Gender Identity Not on file Sexual Orientation Not on file 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 file Not on file Not on file documented as of this encounter Plan of Treatment Not on file documented as of this encounter Procedures Procedure Name Priority Date/Time Associated Diagnosis Comments TRANSTHORACIC ECHO (TTE) COMPLETE W DOPPLER/CF WO CONTRAST Routine 09/20/2020 9:10 AM CDT History of COVID-19 documented in this encounter Results * TRANSTHORACIC ECHO (TTE) COMPLETE W DOPPLER/CF WO CONTRAST (09/20/2020 9:10 AM CDT) Anatomical Region Laterality Modality Ultrasound 09/20/2020 8:09 AM CDT Narrative 09/20/2020 5:15 PM CDT [facility] Cardiology [address], [place] [address] [address] [facility] [address], [place] [address] P:[phone] P:[phone] Echocardiographic Report Patient Name: YESIKA DENNEY : 1960 Study Date: 09/20/2020 8:09:09 AM Gender: F Tech: Location: MD Ref.Provider: SELIN Height(Cm): 160 BSA: 1.65 Weight(Kg): 62.6 Heart Rate: 58 BP: 127/68 Quality: Good Order Provider: GENEVA, RENETTA Procedures: Echocardiographic Report: Transthoracic echocardiogram with complete 2D, M-Mode, and color Doppler examination. Indications: History of COVID. Measurements: 2D/M Mode ?Doppler ? Measurement ?Value ?Normal Range ? Measurement ?Value ?Normal Range ? EF Mod ? 62 ?AV Mean PG ? 4 ?mmHg ? EF MM ?67 ? [ 55 - 70 ] % ?AV Peak Americo ?1.49 ? m/s ? LVIDd MM ? 4.53 ? [ 3.90 - 5.30 ] cm ? AV Peak PG ? 9 ?mmHg ? LVIDs MM ? 2.87 ? [ 2.30 - 3.90 ] cm ? AV VTI ? 0.30 ? cm ? LVPWd MM ? 0.87 ? [ 0.60 - 1.00 ] cm ? LVOT Peak Americo ?0.88 ? [ 0.70 - 1.10 ] m/s ? IVSd MM ?0.87 ? [ 0.60 - 0.90 ] cm ? LVOT VTI ? 0.21 ? cm ? LA Dimension MM ?4.27 ? [ 2.70 - 3.80 ] cm ? MV E Peak Americo ?0.75 ? [ 0.60 - 1.30 ] m/s ? AoR Diam MM ?3.20 ? [ 2.60 - 3.70 ] cm ? MV A Peak Americo ?0.95 ? [ 0.40 - 0.80 ] m/s ? LA Volume Index ?22.00 ?[ 16.00 - 28.00 ] cc/m2 ?MV Decel Time ?265 ?[ 150 - 200 ] msec ? ACS MM ? 1.93 ? cm ? PV Peak Americo ?0.84 ? [ 0.40 - 0.80 ] m/s ? TR Peak Americo ?2.45 ? [ 0.40 - 0.80 ] m/s ? TR Peak PG ? 24 ? mmHg ? RVSP ? 32.00 ?mmHg ? E' ? 0.08 ? E/E' ? 9 ? Findings: Interpretation Site: Exam was interpreted at [facility]. Left Ventricle: Normal left ventricular systolic function. No focal wall motion abnormalities. Normal left ventricular size. Impaired diastolic relaxation Grade I. Ejection fraction is measured at 62 %. Right Ventricle: Normal right ventricular size. Left Atrium: The left atrium is normal in size. Right Atrium: The right atrium is normal in size. Atrial Septum: Normal atrial septum. Mitral Valve: Normal appearance of the mitral valve. Trivial regurgitation of the mitral valve. Aortic Valve: Normal appearance of the aortic valve. Tricuspid Valve: Normal appearance of the tricuspid valve. Estimated peak RVSP is 32 mmHg. Trivial regurgitation in the tricuspid valve. Pulmonic Valve: Normal appearance of the pulmonic valve. Trivial regurgitation in the pulmonic valve. Pericardium: Normal pericardium with no significant pericardial effusion. Aorta: Normal aortic root. IVC: Normal size and normal respiratory collapse consistent with normal right atrial pressure (<5 mmHg). Pulmonary Artery: Normal pulmonary artery size. Conclusions: Normal left ventricular systolic function. No focal wall motion abnormalities. Normal left ventricular size. Impaired diastolic relaxation Grade I. Ejection fraction is measured at 62 %. Trivial mitral, tricuspid and pulmonic regurgitation. Compared with 2019: no change. Electronically Signed By: Harpal De León MD, [facility] 2020-09-20 17:15:32 CDT Procedure Note Harpal De León MD - 09/20/2020 [facility] Cardiology [address] [facility] [address] [address] [address] [facility] [address], [place] [address] P:[phone] P:[phone] Echocardiographic Report Patient Name: YESIKA DENNEYPatient ID: [id number] : [id number] Date: 09/20/2020 8:09:09 AM Gender: FAccession #: [id number] Tech: GMLocation: MD Ref.Provider: LIBIAGANHeight(Cm): 160 BSA: 1.65Weight(Kg): 62.6 Heart Rate: 58BP: 127/68 Quality: GoodOrder Provider: RENETTA BEAN Procedures: Echocardiographic Report: Transthoracic echocardiogram with complete 2D, M-Mode, and color Dopplerexamination. Indications: History of COVID. Measurements: 2D/M Mode Doppler Measurement Value Normal Range MeasurementValue Normal Range EF Mod 62 AV Mean PG 4mmHg EF MM 67 [ 55 - 70 ] % AV Peak Vel1.49 m/s LVIDd MM 4.53 [ 3.90 - 5.30 ] cm AV Peak PG 9mmHg LVIDs MM 2.87 [ 2.30 - 3.90 ] cm AV VTI0.30 cm LVPWd MM 0.87 [ 0.60 - 1.00 ] cm LVOT Peak Vel0.88 [ 0.70 - 1.10 ] m/s IVSd MM 0.87 [ 0.60 - 0.90 ] cm LVOT VTI0.21 cm LA Dimension MM 4.27 [ 2.70 - 3.80 ] cm MV E Peak Vel0.75 [ 0.60 - 1.30 ] m/s AoR Diam MM 3.20 [ 2.60 - 3.70 ] cm MV A Peak Vel0.95 [ 0.40 - 0.80 ] m/s LA Volume Index 22.00 [ 16.00 - 28.00 ] cc/m2 MV Decel Cstd236 [ 150 - 200 ] msec ACS MM 1.93 cm PV Peak Vel0.84 [ 0.40 - 0.80 ] m/s TR Peak Vel2.45 [ 0.40 - 0.80 ] m/s TR Peak PG 24mmHg RVSP32.00 mmHg E'0.08 E/E' 9 Findings: Interpretation Site: Exam was interpreted at [facility]. Left Ventricle: Normal left ventricular systolic function. No focal wall motionabnormalities. Normal left ventricular size. Impaired diastolic relaxation Grade I. Ejectionfraction is measured at 62 %. Right Ventricle: Normal right ventricular size. Left Atrium: The left atrium is normal in size. Right Atrium: The right atrium is normal in size. Atrial Septum: Normal atrial septum. Mitral Valve: Normal appearance of the mitral valve. Trivial regurgitation of the mitralvalve. Aortic Valve: Normal appearance of the aortic valve. Tricuspid Valve: Normal appearance of the tricuspid valve. Estimated peak RVSP is 32 mmHg.Trivial regurgitation in the tricuspid valve. Pulmonic Valve: Normal appearance of the pulmonic valve. Trivial regurgitation in thepulmonic valve. Pericardium: Normal pericardium with no significant pericardial effusion. Aorta: Normal aortic root. IVC: Normal size and normal respiratory collapse consistent with normal rightatrial pressure (<5 mmHg). Pulmonary Artery: Normal pulmonary artery size. Conclusions: Normal left ventricular systolic function. No focal wall motionabnormalities. Normal left ventricular size. Impaired diastolic relaxation Grade I. Ejectionfraction is measured at 62 %. Trivial mitral, tricuspid and pulmonic regurgitation. Compared with 2019: no change. Electronically Signed By: Harpal De León MD, [facility] 2020-09-20 17:15:32 CDT Renetta Kaye [place] FLAVORING MACHINE OPERATOR CV ECHO PROCEDURES Final Result documented in this encounter Visit Diagnoses Diagnosis History of COVID-19 documented in this encounter Care Teams Ropewalk Rope Maker Relationship Specialty Start Date End Date Sylvia Dawson PA [address] [place] [address] PCP - General Internal Medicine 01/05/20 Erica Rodrigues MD [address] [place] [address] Radiation Oncologist Radiation Oncology 10/25/18 Gasper Kaba MD [address] [place] [address] Surgeon Surgical Oncology 10/25/18 Brandy Aguirre, CARINA [address] [place] [address] Nurse Practitioner Certified Clinical Nurse Specialist 10/25/18 Jo-Ann Morrow, PhD [address] [place] [address] Nurse Practitioner Radiation Oncology 10/25/18 Christina Louis FLAVORING MACHINE OPERATOR [address] [place] [address] Nurse Practitioner Medical Oncology 10/25/18 documented as of this encounter
--- OUTSIDE RECORDS SUMMARY | 2024-04-24 05:54 | XMS_ITS | Encounter Summary ---
Author Organization [facility] Address [address] [place] [address] Phone Care Team Providers Care Flying Instructor Name Role Phone Erica Rodrigues MD Unavailable Gasper Kaba MD Unavailable [phone] Brandy Aguirre LIFT SLAB OPERATOR Unavailable [phone] Jo-Ann Morrow PhD Unavailable [phone] Christina Louis CASINO ASSISTANT MANAGER Unavailable [phone] Sylvia Dawson Primary Care Provider [phone] Encounter Details Date Type Department Care Team (Latest Contact Info) Description 04/18/2021 3:00 PM AIRCRAFT PNEUDRAULICS REPAIRER Office Visit [facility] Rheumatology [address] [facility] [address] 5th [place] [address] [place] [address] Patricia Martinez MD [address] [place] [address] Rheumatoid arthritis with negative rheumatoid factor, involving [...] on file Legal Sex Female 3:42 AM AIRCRAFT PNEUDRAULICS REPAIRER Gender Identity Not on file Sexual Orientation Not on file 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 file Not on file Not on file documented as of this encounter Last Filed Vital Signs Vital Sign Reading Time Taken Comments Blood Pressure 139/88 04/18/2021 2:48 PM AIRCRAFT PNEUDRAULICS REPAIRER Pulse 67 04/18/2021 2:48 PM AIRCRAFT PNEUDRAULICS REPAIRER Temperature 36.7 ??C (98 ??F) 04/18/2021 2:48 PM AIRCRAFT PNEUDRAULICS REPAIRER Respiratory Rate - - Oxygen Saturation - - Inhaled Oxygen Concentration - - Weight 64.4 kg (142 lb) 04/18/2021 2:48 PM AIRCRAFT PNEUDRAULICS REPAIRER Height 160 cm (5' 3 ) 04/18/2021 2:48 PM AIRCRAFT PNEUDRAULICS REPAIRER Body Mass Index 25.15 04/18/2021 2:48 PM AIRCRAFT PNEUDRAULICS REPAIRER documented in this encounter Ordered Prescriptions Prescription Sig Dispense Quantity Refills Last Filled Start Date End Date sulfaSALAzine EN (AZULFIDINE EN) 500 mg EC tabletIndications: Rheumatoid Arthritis Take 2 tablets (1,000 mg total) by mouth 2 (two) times a day 120 tablet 5 04/18/2021 2 documented in this encounter Progress Notes * Patricia Martinez MD - 04/18/2021 3:00 PM CST Rheumatology PATIENT NAME: Yesika Denney : 1960 STEVEN: 04/18/2021 Subjective Chief Complaint: Follow-up seronegative rheumatoid arthritis HPI: Yesika Denney is a 60 y.o. 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 Current management is methotrexate 15 mg weekly plus hydroxychloroquine 200 mg daily plus sulfasalazine 500 mg b.i.d. which patient states she has been able to take regularly. She was last seen on Sep 20. Interval History: Since last visit, she notes occasional aching particularly in the middle metatarsal of her foot. She has also had some pain over her medial epicondyle of her right arm which is her non dominant side.She will note occasional stiffness in her hands but this is infrequent . She notes stiffness if shewakes up during the middle of the night but this resolves quickly when she gets up in the morning. She has not noted overt swelling. She has been fully vaccinated for COVID-19 and she had COVID-19 1 year ago. She had an abnormal lipid panel and has been trying to watch her diet is requesting that Irepeat this today since she is on a supplement to help her panel Disease Treatment History: May 10??2016??-initiation of anastrazole and 1 week later onset [...] unchanged from 2017 with mild osteoarthritis present Objective Current Outpatient Medications: ??? albuterol HFA (ProAir [...] daily, Disp: 90 tablet, Rfl: 1 ??? pstsyeztcv-egtsqkmfapcvi-xtgtsgko-codeine (FIORICET WITH CODEINE) 98-099-81-30 mg per capsule, Take 1 capsule by mouth every 4 (four) hours as needed for headaches for up to 14 days, Disp: 56 capsule, Rfl: 0 ??? FLUoxetine (PROzac) 20 mg capsule, Take [...] mouth 2 (two) times a day, Disp: 120 tablet, Rfl: 5 ??? valACYclovir (Valtrex) 500 mg tablet, Take 1 tablet (500 mg total) by mouth daily, Disp: 90 tablet, Rfl: 2 Physical Exam BP 139/88 Pulse 67 Temp 36.7 ??C (98 ??F) Ht 160 cm (5' 3 ) Wt 64.4 kg (142 lb) LMP (LMP Unknown) BMI 25.15 kg/m?? GEN: NAD, WDWN SKIN: No rash HEENT: PEERL, Conjunctivae are clear. EXT: No LE edema. MSK: No detectable synovitis in a standard 28 joint count, she does have point tenderness over the medial epicondyle as well as the metatarsal 3rd digit is subjectively tender PSYCH: Appropriate affect. Labs: Recent Results (from the past 168 hour(s)) Lipid panel Collection Time: 04/18/21 3:39 PM Result Value Ref Range Triglycerides 120 <150 mg/dL Total Cholesterol 318 (H) <200 mg/dL Total HDL-C Direct 100 >50 mg/dL Non-HDL cholesterol 218 100 - 219 mg/dL [place] LDL Chol 194 (H) 70 - 189 mg/dL Comprehensive metabolic panel Collection Time: 04/18/21 3:39 PM Result Value Ref Range Total Protein 6.9 6.1 - 8.4 g/dL Albumin 4.8 3.5 - 5.2 g/dL Calcium 10.3 8.6 - 10.3 mg/dL BUN 12 7 - 23 mg/dL Total Bilirubin 0.31 0.20 - 1.40 mg/dL Alk Phos, Total 50 35 - 129 IU/L AST (SGOT) 20 11 - 47 IU/L ALT (SGPT) 17 6 - 53 IU/L Creatinine 0.81 0.60 - 1.10 mg/dL Sodium 139 135 - 145 mmol/L Potassium 4.3 3.3 - 5.1 mmol/L Chloride 99 95 - 107 mmol/L CO2 Content 28 21 - 29 mmol/L Glucose 100 (H) 64 - 99 mg/dL eGFR 83.1 >60.0 mL/min/1.73 m2 CBC with auto differential Collection Time: 04/18/21 3:39 PM Result Value Ref Range White Blood Count 6.5 3.6 - 11.2 K/uL RBC 3.96 3.63 - 4.92 M/uL Hemoglobin 13.9 11.9 - 15.5 g/dL Hematocrit 41.0 36.1 - 44.3 % MCV 103.5 (H) 80.0 - 97.6 fL MCH 35.0 (H) 26.7 - 33.7 pg MCHC 33.8 32.7 - 35.5 g/dL RBC Dist Width 13.7 12.3 - 17.0 % Platelet Count 229 140 - 440 K/uL MPV 8.4 6.8 - 10.4 fL Neutrophils % 59.9 38.7 - 74.5 % Lymphocyte % 30.0 20.0 - 54.3 % Monocytes % 8.7 4.3 - 13.5 % Eosinophils % 1.0 0.0 - 6.0 % Basophil % 0.4 0.0 - 3.0 % Absolute Neutrophil 3.9 1.8 - 6.6 K/uL Absolute Lymphocyte 1.9 0.8 - 3.3 K/uL Absolute Monocyte 0.6 0.2 - 1.2 K/uL Absolute Eosinophil 0.1 0.0 - 0.5 K/uL Absolute Basophil 0.0 0.0 - 0.2 K/uL Nucleated RBC % 0.0 0.0 - 0.4 /100 WBC Assessment Assessment: 1. Rheumatoid arthritis with negative rheumatoid factor, involving unspecified site (HCC) 2. High risk medication use 3. Mixed hyperlipidemia She is having a slight increase in symptoms today but overall has low disease activity I reviewed the patient's prior visit Sep 20 and health assessment questionnaire. Plan: One) increased sulfasalazine to 1 g b.i.d. in combination with her methotrexate and hydroxychloroquine Two) monitoring laboratories to be repeated today and then quarterly Three) we discussed the current concerns regarding COVID-19 for and need for caution Four) repeat lipid panel to see if need for statin Immunizations: Immunization History Administered Date(s) Administered ??? Influenza, Quadrivalent, Cell Culture-based MDCK, Preservative Free, Antibiotic Free, Intramuscular 03/16/2018 ??? Influenza, Quadrivalent, Split, Preservative Free, Intramuscular 01/05/2020, 02/26/2021 ??? Influenza, Trivalent, Intramuscular 01/27/2018 ??? Influenza, Trivalent, Preservative Free, Intramuscular 02/24/2017 ??? Influenza, Unspecified 01/11/2019 ??? ZOSTER Recombinant 02/23/2020, 05/01/2020 Reviewed 04/18/2021 Follow-up: Return in about 4 months (around 08/16/2021). RAFT PNEUDRAULICS REPAIRER documented in this encounter Plan of Treatment Not on file documented as of this encounter Results * CRP (acute phase) (04/18/2021 4:28 PM AIRCRAFT PNEUDRAULICS REPAIRER) CRP 0.7 <=10.0 mg/L KATHY REYNA Blood 04/18/2021 4:28 PM AIRCRAFT PNEUDRAULICS REPAIRER 04/18/2021 7:26 PM AIRCRAFT PNEUDRAULICS REPAIRER us Patricia Martinez MD LAB BLOOD ORDERABLES Final R esult KATHY REYNA [facility] Department [place] [address] * Erythrocyte sedimentation rate (04/18/2021 4:28 PM AIRCRAFT PNEUDRAULICS REPAIRER) Erythrocyte sedimentation rate 4 1 - 30 mm/hr [facility] Blood 04/18/2021 4:28 PM AIRCRAFT PNEUDRAULICS REPAIRER 04/18/2021 7:26 PM AIRCRAFT PNEUDRAULICS REPAIRER Patricia Martinez MD LAB BLOOD ORDERABLES Final R esult Performing Organization Address [facility] de Phone Number KATHY [facility] Department [place] [address] * (ABNORMAL) Lipid panel (04/18/2021 3:39 PM AIRCRAFT PNEUDRAULICS REPAIRER) Triglycerides 120 <150 mg/dL [facility] Comment: Desirable: <150 mg/dL, fasting <175 mg/dL, non-fasting Persistently elevated triglycerides may enhance atherosclerotic cardiovascular disease. Total Cholesterol 318(H) <200 mg/dL [facility] Total HDL-C Direct 100 >50 mg/dL [facility] Comment:Repeated and Verifie d Non-HDL cholesterol 218 100 - 219 mg/dL [facility] [place] LDL Chol 194(H) 70 - 189 mg/dL [facility] Comment: According to the 2018 ACC/AHA guidelines, LDL Cholesterol greater than or equal to 190 mg/dL is suggestive of familial hypercholesterolemia and may require agressive lipid lowering therapy. Blood specimen (specimen) 04/18/2021 3:39 PM AIRCRAFT PNEUDRAULICS REPAIRER 04/18/2021 3:55 PM AIRCRAFT PNEUDRAULICS REPAIRER Narrative [facility] - 04/18/2021 4:34 PM AIRCRAFT PNEUDRAULICS REPAIRER Current interpretive data was last updated March 15, 2021. For adults ages 40-79, the ACC/AHA recommends discussing your 10-year atherosclerotic cardiovascular disease risk with your health care provider. ??https://www.acc.org/ASCVDApp Patricia Martinez MD LAB BLOOD ORDERABLES Final R esult Performing Organization Address [facility]/ZIP Co de Phone Number [facility] * (ABNORMAL) Comprehensive metabolic panel (04/18/2021 3:39 PM AIRCRAFT PNEUDRAULICS REPAIRER) Total Protein 6.9 6.1 - 8.4 g/dL [facility] Albumin 4.8 3.5 - 5.2 g/dL [facility] Calcium 10.3 8.6 - 10.3 mg/dL [facility] BUN 12 7 - 23 mg/dL [facility] Total Bilirubin 0.31 0.20 - 1.40 mg/dL [facility] Alk Phos, Total 50 35 - 129 IU/L [facility] AST (SGOT) 20 11 - 47 IU/L [facility] ALT (SGPT) 17 6 - 53 IU/L [facility] Creatinine 0.81 0.60 - 1.10 mg/dL [facility] Sodium 139 135 - 145 mmol/L [facility] Potassium 4.3 3.3 - 5.1 mmol/L [facility] Chloride 99 95 - 107 mmol/L [facility] CO2 Content 28 21 - 29 mmol/L [facility] Glucose 100(H) 64 - 99 mg/dL [facility] Comment: NONFASTING GLUCOSE RANGE = 64-199 mg/dL FASTING GLUCOSE 64 - 99 = NORMAL FASTING GLUCOSE 100 - 125 = IMPAIRED FASTING GLUCOSE FASTING GLUCOSE >=126 = PROVISIONAL DIAGNOSIS OF DIABETES eGFR 83.1 >60.0 mL/min/1.7 3 m2 [facility] Comment:eGFR updated to new CKD-EPI (2020) calculation without race on 02/25/21. Blood specimen (specimen) 04/18/2021 3:39 PM AIRCRAFT PNEUDRAULICS REPAIRER 04/18/2021 3:55 PM AIRCRAFT PNEUDRAULICS REPAIRER us Patricia Martinez MD LAB BLOOD ORDERABLES Final R esult [facility] * (ABNORMAL) CBC with auto differential (04/18/2021 3:39 PM AIRCRAFT PNEUDRAULICS REPAIRER) White Blood Count 6.5 3.6 - 11.2 K/uL [facility] RBC 3.96 3.63 - 4.92 M/uL [facility] Hemoglobin 13.9 11.9 - 15.5 g/dL [facility] Hematocrit 41.0 36.1 - 44.3 % [facility] MCV 103.5(H) 80.0 - 97.6 fL [facility] MCH 35.0(H) 26.7 - 33.7 pg [facility] MCHC 33.8 32.7 - 35.5 g/dL [facility] RBC Dist Width 13.7 12.3 - 17.0 % [facility] Platelet Count 229 140 - 440 K/uL [facility] MPV 8.4 6.8 - 10.4 fL [facility] Neutrophils % 59.9 38.7 - 74.5 % [facility] Lymphocyte % 30.0 20.0 - 54.3 % [facility] Monocytes % 8.7 4.3 - 13.5 % [facility] Eosinophils % 1.0 0.0 - 6.0 % [facility] Basophil % 0.4 0.0 - 3.0 % [facility] Absolute Neutrophil 3.9 1.8 - 6.6 K/uL [facility] Absolute Lymphocyte 1.9 0.8 - 3.3 K/uL [facility] Absolute Monocyte 0.6 0.2 - 1.2 K/uL [facility] Absolute Eosinophil 0.1 0.0 - 0.5 K/uL [facility] Absolute Basophil 0.0 0.0 - 0.2 K/uL [facility] Nucleated RBC % 0.0 0.0 - 0.4 /100 WBC [facility] Blood specimen (specimen) 04/18/2021 3:39 PM AIRCRAFT PNEUDRAULICS REPAIRER 04/18/2021 3:55 PM AIRCRAFT PNEUDRAULICS REPAIRER us Patricia Martinez MD LAB BLOOD ORDERABLES Final R esult [facility] documented in this encounter Visit Diagnoses Diagnosis Rheumatoid arthritis with negative rheumatoid factor, involving unspecified site (HCC)- Primary High risk medication use Mixed hyperlipidemia Rheumatoid arthritis with negative rheumatoid factor, involving unspecified site (HCC) High risk medication use Mixed hyperlipidemia documented in this encounter Discontinued Medications Medication Sig Discontinue Reason Start Date End Da te sulfaSALAzine EN (AZULFIDINE EN) 500 mg EC tablet Take 2 tablets (1,000 mg total) by mouth daily 01/21/2021 04/18/2021 documented as of this encounter Care Teams Flying Instructor Relationship Specialty Start Date End Date Sylvia Dawson PA [address] [facility] [address] [place] [address] PCP - General Internal Medicine 01/05/20 Erica Rodrigues MD [address] [place] [address] Radiation Oncologist Radiation Oncology 10/25/18 Gasper Kaba MD [address] [place] [address] Surgeon Surgical Oncology 10/25/18 Brandy Aguirre, LIFT SLAB OPERATOR [address] [place] [address] Nurse Practitioner Certified Clinical Nurse Specialist 10/25/18 Jo-Ann Morrow, PhD [address] [place] [address] Nurse Practitioner Radiation Oncology 10/25/18 Christina Louis CASINO ASSISTANT MANAGER [address] [place] [address] Nurse Practitioner Medical Oncology 10/25/18 documented as of this encounter
--- OUTSIDE RECORDS SUMMARY | 2024-04-24 05:54 | XMS_ITS | Encounter Summary ---
Author Organization [facility] Address [address] [place] [address] Care Team Providers Care Nutritionist Public Health Name Role Phone Erica Rodrigues MD Unavailable Gasper Kaba MD Unavailable Brandy Aguirre AUTOMOTIVE PARTS SPECIALIST Unavailable [phone] Jo-Ann Morrow PhD Unavailable [phone] Christina Louis ENERGY BROKER Unavailable [phone] Sylvia Dawson Primary Care Provider [phone] Reason for Visit * Reason Comments Follow-up 3 mo follow up on HT N, PAT Encounter Details Date Type Department Care Team (Late st Contact Info) Description 12/06/2020 8:15 AM CDT Office Visit [facility] Cardiology [address] 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 on file Not on file Not on file documented as of this encounter Last Filed Vital Signs Vital Sign Reading Time Taken Comments Blood Pressure 112/80 12/06/2020 8:24 AM CDT Pulse 66 12/06/2020 8:24 AM CDT Temperature - - Respiratory Rate - - Oxygen Saturation 98% 12/06/2020 8:24 AM CDT Inhaled Oxygen Concentration - - Weight 64 kg (141 lb) 12/06/2020 8:24 AM CDT Height 160 cm (5' 3 ) 12/06/2020 8:24 AM CDT Body Mass Index 24.98 12/06/2020 8:24 AM CDT documented in this encounter Progress Notes * Harpal De León MD - 12/06/2020 8:15 AM CDT [facility] FOLLOW UP 12/06/2020 Yesika Denney is a 60 y.o. female [...] to Atenolol between appointment and today. She returns today to the office for scheduled follow-up visit. She is not having any cardiac problems today. She was significantly ill with coronavirus pneumonia last year was hospitalized for few days. She has recovered from that and is doing well. She did see our nurse practitioner earlier this summer have to that illness and was doing well according to the report she had an echocardiogram thatdid not show any significant pathology. She did have a CT scan of her chest done that showed some calcium in the coronary arteries and she wanted to discuss that at some length REVIEW OF SYSTEMS General ROS: negative for [...] rash HOME MEDICATIONS Current Outpatient Medications: ??? aspirin 81 mg enteric coated tablet, Take 81 mg by mouth 2 (two) times a week, Disp: , Rfl: ??? atenoloL (TENORMIN) 50 mg tablet, Take 1 tablet (50 mg total) by mouth daily Take 50 mg + 25 mgfor total 75 mg daily. (Patient taking differently: Take 50 mg by mouth daily ), Disp: 90 tablet, Rfl: 3 ??? yrppaactpk-wzqhnwgjzepgu-hypghbkx-codeine (FIORICET WITH CODEINE) [id number] mg per capsule, TAKE 1 CAPSULE BY MOUTH EVERY 4 HOURS NEEDED FOR HEADACHES, Disp: 20 capsule, Rfl: 0 ??? FLUoxetine (PROzac) 20 mg capsule, Take 1 capsule (20 mg total) by mouth daily, Disp: 90 capsule, Rfl: 1 ??? folic acid (FOLVITE) 1 mg tablet, Take 2 tablets (2 mg total) by mouth daily, Disp: 180 tablet,Rfl: 3 ??? hydrOXYchloroQUINE (PLAQUENIL) 200 mg tablet, Take 1 tablet (200 mg total) by mouth daily, Disp: 90 tablet, Rfl: 2 ??? lisinopriL (PRINIVIL,ZESTRIL) 40 mg tablet, TAKE 1 TABLET DAILY, Disp: 90 tablet, Rfl: 1 ??? sulfaSALAzine EN (AZULFIDINE EN) 500 mg EC tablet, Take 2 tablets (1,000 mg total) by mouth daily, Disp: 180 tablet, Rfl: 1 ??? valACYclovir (Valtrex) 500 mg tablet, Take 1 tablet (500 mg total) by mouth daily, Disp: 90 tablet, Rfl: 2 ??? albuterol HFA (ProAir HFA) 90 mcg/actuation inhaler, Inhale 2 puffs every 4 (four) hours as needed for wheezing or shortness of breath (Patient not taking: Reported on 10/17/2020), Disp: 8.5 g, Rfl: 0 ??? methotrexate 2.5 mg tablet, Take 6 tablets (15 mg total) by mouth once a week (Patient not taking: Reported on 11/13/2020), Disp: 72 tablet, Rfl: 1 ??? predniSONE (DELTASONE) 10 mg tablet, , Disp: , Rfl: LABS AND OTHER DIAGNOSTIC TESTS Lab Results Component Value Date CHOL 272 (H) 08/28/2020 CHOL 252 (H) 02/17/2020 Lab Results Component Value Date HDL 90 08/28/2020 HDL 76 02/17/2020 Lab Results Component Value Date LDLCALC 168 (H) 08/28/2020 LDLCALC 162 (H) 02/17/2020 Lab Results Component Value Date TRIG 83 08/28/2020 TRIG 81 02/17/2020 No results found for: CHOLHDL Lab Results Component Value Date WBC 3.5 08/28/2020 HGB 14.1 08/28/2020 HCT 39.6 08/28/2020 MCV 99 (H) 08/28/2020 PLT 202 03/16/2018 No lab exists for component: LABALBU PHYSICAL EXAM Vitals BP 112/80 (BP Location: Left arm, Patient Position: Sitting) Pulse 66 Ht 160 cm (5' 3 ) Wt 64 kg (141 lb) LMP (LMP Unknown) SpO2 98% BMI 24.98 kg/m?? Physical Examination: General appearance [...] annually or p.r.n. Harpal De León MD documented in this encounter Plan of Treatment Not on file documented as of this encounter Visit Diagnoses Diagnosis Atrial tachycardia (HCC)- Primary Other specified cardiac dysrhythmias documented in this encounter Care Teams Nutritionist Public Health Relationship Specialty Start Date End Date Sylvia Dawson PA [address] [place] [address] PCP - General Internal Medicine 01/05/20 Erica Rodrigues MD [address] [facility] [address] [facility] [address] [place] [address] Radiation Oncologist Radiation Oncology 10/25/18 Gasper Kaba MD [address] [facility] [address] [facility] [address] [place] [address] Surgeon Surgical Oncology 10/25/18 Brandy Aguirre, AUTOMOTIVE PARTS SPECIALIST [address] [place] [id number] [place] [address] Nurse Practitioner Certified Clinical Nurse Specialist 10/25/18 Jo-Ann Morrow, PhD [address] [facility] [address] [facility] [address] [place] [address] Nurse Practitioner Radiation Oncology 10/25/18 Christina Louis, ENERGY BROKER [address] [facility] [facility] [address] [place] [address] Nurse Practitioner Medical Oncology 10/25/18 documented as of this encounter
--- OUTSIDE RECORDS SUMMARY | 2024-04-24 05:54 | XMS_ITS | Encounter Summary ---
Author Organization [facility] Address [address] [place] [address] Care Team Providers Care Financial Service Professional Name Role Phone Erica Rodrigues MD Unavailable Gasper Kaba MD Unavailable Brandy Aguirre DISTRICT COURT REPORTER Unavailable [phone] Jo-Ann Morrow PhD Unavailable [phone] Christina Louis HAND HOSE CUTTER Unavailable [phone] Sylvia Dawson Primary Care Provider [phone] Encounter Details Date Type Department Care Team (Late st Contact Info) Description 01/17/2021 Telephone [facility] Family Medicine [address] [place] [address] Sylvia Dawson PA [address] [place] [address] Social History Tobacco Use Types [...] on file Legal Sex Female 3:42 AM CURRICULUM CONSULTANT Gender Identity Not on file Sexual Orientation Not on file 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 Patient notified. documented in this encounter Plan of Treatment Scheduled Orders Name Type Priority Associated Diagnoses Orde r Schedule Lipid panel Lab Routine Fatigue, unspecified type Expected: 01/17/2021, Expires: 01/17/2022 Comprehensive metabolic panel Lab Routine Mixed hyperlipidemia Expected: 01/17/2021, Expires: 01/17/2022 TSH Lab Routine Mixed hyperlipidemia Expected: 01/17/2021, Expires: 01/17/2022 documented as of this encounter Visit Diagnoses Diagnosis Fatigue, unspecified type- Primary Mixed hyperlipidemia documented in this encounter Care Teams Financial Service Professional Relationship Specialty Start Date End Date Sylvia Dawson PA [address] [facility] [address] [place] [address] PCP - General Internal Medicine 01/05/20 Erica Rodrigues MD [address] [facility] [address] [place] [address] Radiation Oncologist Radiation Oncology 10/25/18 Gasper Kaba MD [address] [place] [address] Surgeon Surgical Oncology 10/25/18 Brandy Aguirre, DISTRICT COURT REPORTER [address] [facility] [address] [place] [address] Nurse Practitioner Certified Clinical Nurse Specialist 10/25/18 Jo-Ann Morrow, PhD [address] [facility] [address] [place] [address] Nurse Practitioner Radiation Oncology 10/25/18 Christina Louis, HAND HOSE CUTTER [address] [facility] [address] [place] [address] Nurse Practitioner Medical Oncology 10/25/18 documented as of this encounter
--- OUTSIDE RECORDS SUMMARY | 2024-04-24 05:54 | XMS_ITS | Encounter Summary ---
Author Organization [facility] Address [address] [place] [address] Phone Care Team Providers Care Finance Administrator Name Role Phone Erica Rodrigues MD Unavailable Gasper Kaba MD Unavailable [phone] Brandy Aguirre FALL INTERN Unavailable [phone] Jo-Ann Morrow PhD Unavailable [phone] Christina Louis BALANCE ASSEMBLER Unavailable [phone] Sylvia Dawson Primary Care Provider [phone] Reason for Referral * Diagnostic Imaging (Routine) - Closed Specialty Diagnoses / Procedures Referred By Contac t Referred To Contact Diagnoses Pneumonia due to COVID-19 virus Procedures XR Chest Pa Lateral 2 Views Sae Dumont MD [address] [place] [address] Phone: tel: fax: [address] [address] Referral ID Status Reason Start Date Expiration Date Visits Re quested Visits Authorized [id number] Closed 07/27/2020 08/26/2021 1 1 Encounter Details Date Type Department Care Team (Late st Contact Info) Description 07/27/2020 Orders Only [facility] Pulmonary [address] [facility] Advanced Medicine 8th [place] [address] [place] [address] Sae Dumont MD [address] [place] [address] Pneumonia due to COVID-19 virus (Primary Dx) Social History Tobacco Use Types [...] on file Legal Sex Female 3:42 AM DEWAXER Gender Identity Not on file Sexual Orientation Not on file 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 05/22/2020 05/26/2020 09/19/2020 3:05 AM C DT documented as of this encounter Care Teams Finance Administrator Relationship Specialty Start Date End Date Sylvia Dawson PA [address] [place] [address] PCP - General Internal Medicine 01/05/20 Ercia Rodrigues MD [address] [place] [address] Radiation Oncologist Radiation Oncology 10/25/18 Gasper Kaba MD [address] [place] [address] Surgeon Surgical Oncology 10/25/18 Brandy Aguirre, FALL INTERN [address] [place] [address] Nurse Practitioner Certified Clinical Nurse Specialist 10/25/18 Jo-Ann Morrow, PhD [address] [place] [address] Nurse Practitioner Radiation Oncology 10/25/18 Christina Louis BALANCE ASSEMBLER [address] [place] [address] Nurse Practitioner Medical Oncology 10/25/18 documented as of this encounter
--- OUTSIDE RECORDS SUMMARY | 2024-04-24 05:54 | XMS_ITS | Encounter Summary ---
Author Organization [facility] [employer] [facility] Address [address] [place] [address] Phone Care Team Providers Care Farm Equipment Engineer Name Role Phone Erica Rodrigues MD Unavailable Gasper Kaba MD Unavailable Brandy Aguirre RAIL EQUIPMENT OPERATOR Unavailable [phone] Jo-Ann Morrow PhD Unavailable [phone] Christina Louis POSTULANT Unavailable [phone] Sylvia Dawson Primary Care Provider [phone] Reason for Referral * (Routine) - Closed Specialty Diagnoses / Procedures Referred By Conternestina t Referred To Contact Diagnoses History of COVID-19 SOB (shortness of breath) Dyspnea and respiratory abnormalities Procedures Pulmonary Function Test -[facility] Adult PFT Lab- [facility]-8D; Standard; Spirometry, Spirometry w/bronchodilator, DLCO and Lung Volumes Jessenia Reyes MD Phone: tel: fax: Referral ID Status Reason Start Date Expiration Date Visits Re quested Visits Authorized [id number] Closed 10/02/2020 11/01/2021 1 1 Reason for Visit * (Routine) - Closed Specialty Diagnoses / Procedures Referred By Contac t Referred To Contact Diagnoses History of COVID-19 SOB (shortness of breath) Dyspnea and respiratory abnormalities Procedures Pulmonary Function Test -[facility] Adult PFT Lab- [facility]-8D; Standard; Spirometry, Spirometry w/bronchodilator, DLCO and Lung Volumes Jessenia Reyes MD Phone: tel: fax: Referral ID Status Reason Start Date Expiration Date Visits Re quested Visits Authorized [id number] Closed 10/02/2020 11/01/2021 1 1 Encounter Details Date Type Department Care Team (Latest Contact Info) Description 10/08/2020 8:52 AM CDT - 10/08/2020 9:58 AM CDT Hospital Encounter [facility] Pulmonary [address] [facility] [address] [place] [address] History of COVID-19; SOB (shortness of breath); Dyspnea and respiratory abnormalities Discharge Disposition: Discharge to home or self [...] file Legal Sex Female 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 90 tablet 3 07/18/2020 1 butalbital-acetam inophen-caffeine- codeine (FIORICET WITH CODEINE) 67-152-24-30 mg per capsule Take 1 capsule by mouth every 4 (four) hours as needed for headaches 20 capsule 06/22/2020 1 FLUoxetine (PROzac) 20 mg capsuleIndication s:Stress,Recurren t major depressive disorder, remission status unspecified (HCC) Take 1 capsule (20 mg total) by mouth daily 90 capsule 1 09/04/2020 1 folic acid (FOLVITE) 1 mg tablet Take 2 tablets (2 mg total) by mouth daily 180 tablet 3 03/19/2020 1 hydrOXYchloroQUIN E (PLAQUENIL) 200 mg tabletIndications :Rheumatoid Arthritis Take 1 tablet (200 mg total) by mouth daily 90 tablet 2 03/15/2020 1 lisinopriL (PRINIVIL,ZESTRIL ) 40 mg tablet Take 1 tablet (40 mg total) by mouth daily 90 tablet 06/22/2020 1 methotrexate 2.5 mg tabletIndications :autoimmune disease Take 6 tablets (15 mg total) by mouth once a week 72 tablet 1 09/20/2020 1 predniSONE (DELTASONE) 10 mg tablet 11/10/2019 2 sulfaSALAzine EN (AZULFIDINE EN) 500 mg EC tablet Take 1 tablet (500 mg total) by mouth daily 90 tablet 06/04/2020 1 valACYclovir (Valtrex) 500 mg tablet Take 1 tablet (500 mg total) by mouth daily 90 tablet 2 01/05/2020 1 documented as of this encounter Discharge Disposition Disposition Code Departure Means Destination Discharge to home or self care documented in this encounter Plan of Treatment Not on file documented as of this encounter Procedures Procedure Name Priority Date/Time Associated Diagnosis Comments PULMONARY FUNCTION TEST (PFT) Routine 10/08/2020 3:24 PM CDT History of COVID-19 SOB (shortness of breath) Dyspnea and respiratory abnormalities documented in this encounter Results * Pulmonary Function Test - (10/08/2020 3:24 PM CDT) FVC PRE 3.08 L [facility] FVC %PRE PRED 102 % [facility] FEV1 PRE 2.50 L [facility] FEV1 %PRE PRED 105 % [facility] FEV1/FVC PRE 81.4 % [facility] FRC PL PRE 2.[address] [facility] FRC PL %PRE PRED 93 % [facility] RV PRE 1.81 L [facility] RV %PRE PRED 94 % [facility] TLC PRE 4.98 L [facility] TLC %PRE PRED 103 % [facility] DLCO PRE 17.4 ml/min/mmH g [facility] DLCO %PRE PRED 90 % [facility] Anatomical Region Laterality Modality PFT 10/08/2020 8:58 AM CDT Narrative 10/12/2020 2:41 PM CDT With six minute walk test PFT performed at:->[facility] Adult PFT Lab- [facility] Procedure:->Standard Standard:->Spirometry, Spirometry w/bronchodilator, DLCO and Lung Volumes Updated Jessenia Reyes MD PFT ORDERABLES Final Result documented in this encounter Visit Diagnoses Diagnosis History of COVID-19 SOB (shortness of breath) Shortness of breath Dyspnea and respiratory abnormalities documented in this encounter Care Teams Farm Equipment Engineer Relationship Specialty Start Date End Date Sylvia Dawson PA [address] [place] [address] PCP - General Internal Medicine 01/05/20 Erica Rodrigues MD [address] [facility] [address] [place] [address] Radiation Oncologist Radiation Oncology 10/25/18 Gasper Kaba MD [address] [place] [address] Surgeon Surgical Oncology 10/25/18 Brandy Aguirre, RAIL EQUIPMENT OPERATOR [address] [place] [address] Nurse Practitioner Certified Clinical Nurse Specialist 10/25/18 Jo-Ann Morrow, PhD [address] [place] [address] Nurse Practitioner Radiation Oncology 10/25/18 Christina Louis POSTULANT [address] [place] [address] Nurse Practitioner Medical Oncology 10/25/18 documented as of this encounter
--- OUTSIDE RECORDS SUMMARY | 2024-04-24 05:54 | XMS_ITS | Encounter Summary ---
Author Organization [facility] Address [address] [place] [address] Care Team Providers Care Boarding House Manager Name Role Phone Erica Rodrigues MD Unavailable Gasper Kaba MD Unavailable Brandy Aguirre CONVERSION WORKER Unavailable [phone] Jo-Ann Morrow PhD Unavailable [phone] Christina Louis DRILLING FIELD OPERATOR Unavailable [phone] Sylvia Dawson Primary Care Provider [phone] Encounter Details Date Type Department Care Team (Late st Contact Info) Description 05/30/2020 Telephone [facility] Family Medicine [address] [facility] [address] [place] [address] Sylvia Dawson PA [address] [place] [address] Social History Tobacco Use Types [...] on file Legal Sex Female 3:42 AM VARNISH REMOVER Gender Identity Not on file Sexual Orientation Not on file 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 Thanks. ISH REMOVER * Telephone Encounter - Barbra Alarcon LPN - 05/30/2020 3:03 PM VARNISH REMOVER Made contact with patient. Patient reports she is overall feeling better. Patient was d/c on dexamethasone and medrol dose cyndi - both of which she has finished. Medications and allergies have been reviewed, and are all reconciled. Patient's questions and concerns answered. Patient knows to contact office sooner to appt date, if needed. Hospital: [facility], records requested now Discharge date: 05/23/2020 Upcoming appt with PCP: 05/31/2020 via telemedicine ISH REMOVER * Telephone Encounter - Sylvia Dawson PA - 05/30/2020 12:41 PM VARNISH REMOVER Please call and check on patient. She was sent to the ER on 05/17 and was admitted to [facility]. She was still in last week. Please get an update and records / discharge summary for followup in the office. ISH REMOVER documented in this encounter Plan of Treatment Not on file documented as of this encounter Visit Diagnoses Not on filedocumented in this encounter Additional Health Concerns Infection Onset Date Last Indicated Resolved Time COVID: Recovered Comment:Added based on recent COVID infection. 05/22/2020 05/26/2020 09/19/2020 3:05 AM C DT documented as of this encounter Care Teams Boarding House Manager Relationship Specialty Start Date End Date Sylvia Dawson PA [address] [place] [address] PCP - General Internal Medicine 01/05/20 Erica Rodrigues MD [address] [place] [address] Radiation Oncologist Radiation Oncology 10/25/18 Gasper Kaba MD [address] [place] [address] Surgeon Surgical Oncology 10/25/18 Brandy Aguirre, CONVERSION WORKER [address] [place] [address] Nurse Practitioner Certified Clinical Nurse Specialist 10/25/18 Jo-Ann Morrow, PhD [address] [place] [address] Nurse Practitioner Radiation Oncology 10/25/18 Christina Louis NP [address] [place] [address] Nurse Practitioner Medical Oncology 10/25/18 documented as of this encounter
--- OUTSIDE RECORDS SUMMARY | 2024-04-24 05:54 | XMS_ITS | Encounter Summary ---
Author Organization [facility] Address [address] [place] [address] Care Team Providers Care Appetizer Packer Name Role Phone Erica Rodrigues MD Unavailable Gasper Kaba MD Unavailable Brandy Aguirre ENGINEERING PRODUCTION LIAISON Unavailable [phone] Jo-Ann Morrow PhD Unavailable [phone] Christina Louis POLISHING MACHINE TENDER Unavailable [phone] Sylvia Dawson Primary Care Provider [phone] Encounter Details Date Type Department Care Team (Late st Contact Info) Description 06/11/2020 Orders Only [facility] Health Information Management [address] [place] [address] Scanning, Provider Social History Tobacco Use Types [...] on file Legal Sex Female 3:42 AM PBX REPAIRER Gender Identity Not on file Sexual Orientation Not on file 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 on file Not on file Not on file documented as of this encounter Plan of Treatment Not on file documented as of this encounter Procedures Procedure Name Priority Date/Time Associated Diagnosis Comments SCAN - RADIOLOGY/IMAGING 06/11/2020 documented in this encounter Results * SCAN - RADIOLOGY/IMAGING (06/11/2020) Anatomical Region Laterality Modality Other us Provider Scanning Final Result documented in this encounter Visit Diagnoses Not on filedocumented in this encounter Additional Health Concerns Infection Onset Date Last Indicated Resolved Time COVID: Recovered Comment:Added based on recent COVID infection. 05/22/2020 05/26/2020 09/19/2020 3:05 AM C DT documented as of this encounter Care Teams Appetizer Packer Relationship Specialty Start Date End Date Sylvia Dawson PA [address] [facility] [address] [place] [address] PCP - General Internal Medicine 01/05/20 Erica Rodrigues MD [address] [facility] [address] [place] [address] Radiation Oncologist Radiation Oncology 10/25/18 Gasper Kaba MD [address] LL [facility] [address] [place] [address] Surgeon Surgical Oncology 10/25/18 Brandy Aguirre CNS [address] [place] [address] Nurse Practitioner Certified Clinical Nurse Specialist 10/25/18 Jo-Ann Morrow, PhD [address] [place] [address] Nurse Practitioner Radiation Oncology 10/25/18 Christina Louis NP [address] [facility] [address] [place] [address] Nurse Practitioner Medical Oncology 10/25/18 documented as of this encounter
--- OUTSIDE RECORDS SUMMARY | 2024-04-24 05:54 | XMS_ITS | Encounter Summary ---
Author Organization [facility] Address [address] [place] [address] Care Team Providers Care Screw Machine Hand Name Role Phone Erica Rodrigues MD Unavailable Gasper Kaba MD Unavailable Brandy Aguirre MILKING MACHINE MECHANIC Unavailable [phone] Jo-Ann Morrow PhD Unavailable [phone] Christina Louis CYCLE COUNTER Unavailable [phone] Sylvia Dawson Primary Care Provider [phone] Encounter Details Date Type Department Care Team (Late st Contact Info) Description 10/23/[address] 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 Pt is not having any CP symptoms and was seen in the office by CT in August. Denies exertional CP. Explained anginal symptoms that would be concerning. Pt verbalized understanding. * Telephone Encounter - Harpal De León MD - 10/23/2020 9:22 AM CDT This patient's chart and the above note have been reviewed. Apparently there is some visible calcium in her coronary arteries raising concern about coronary disease. If she is asymptomatic of anginalsymptoms this is nothing of immediate concern I can certainly discuss it with her in her upcoming appointment next month. * Telephone Encounter - Lesly Echeverria RN - 10/23/2020 8:26 AM CDT Lm on for pt to ask her if she has been experiencing any symptoms of CP etc. Will forward to [facility] for his guidance on below. Pt was just seen in the office 08/[address] post COVIDand did have a nml echo at that time. * Telephone Encounter - Lesly Echeverria RN - 10/23/2020 8:22 AM CDT ----- Message from Yesika Denney sent at 10/22/2020 10:32 AM CDT ----- Regarding: Test Results Question Contact: Good morning, I had a chest CT ordered by Dr. Reyes (pulmonology). The results showed There is multivessel coronary artery atherosclerosis. A coronary artery vascular stent is noted in the right coronary artery. I questioned this interpretation, as I don't have a stent, and received this message from Dr. Reyes's office: Dr. Reyes has spoken with radiology who states that you do not have a stent, instead you have some calcium deposition that can sometimes look like a stent. My question is this: Should I be concerned about the atherosclerosis and calcium deposits? I have an appointment with Dr. De León on December 06, but if these are concerns, I would like to see him sooner. We have a trip on December 07, and I want to be able to put this to rest before we leave, if possible. Thank you very much for your help. Yesika Denney documented in this encounter Plan of Treatment Not on file documented as of this encounter Visit Diagnoses Not on filedocumented in this encounter Care Teams Screw Machine Hand Relationship Specialty Start Date End Date Sylvia Dawson PA [address] [facility] [address] [place] [address] PCP - General Internal Medicine 01/05/20 Erica Rodrigues MD [address] [place] [address] Radiation Oncologist Radiation Oncology 10/25/18 Gasper Kaba MD [address] [place] [address] Surgeon Surgical Oncology 10/25/18 Brandy Aguirre CNS [address] [facility] [address] [place] [address] Nurse Practitioner Certified Clinical Nurse Specialist 10/25/18 Jo-Ann Morrow, PhD [address] [facility] [address] [facility] [address] [place] [address] Nurse Practitioner Radiation Oncology 10/25/18 Christina Louis NP [address] [facility] [address] LL [facility] [address] [place], [place] [address] Nurse Practitioner Medical Oncology 10/25/18 documented as of this encounter
--- OUTSIDE RECORDS SUMMARY | 2024-04-24 05:54 | XMS_ITS | Encounter Summary ---
Author Organization [facility] Address [address] [place] [address] Phone Care Team Providers Care Pill Maker Name Role Phone Erica Rodrigues MD Unavailable Gasper Kaba MD Unavailable Brandy Aguirre Unavailable [phone] Jo-Ann Morrow PhD Unavailable [phone] Christina Louis SEARCH ENGINE OPTIMIZATION SPECIALIST Unavailable [phone] Sylvia Dawson Primary Care Provider [phone] Reason for Referral * Diagnostic Imaging (Routine) - Closed Specialty Diagnoses / Procedures Referred By Contac t Referred To Contact Diagnoses History of right breast cancer Procedures Diagnostic Mammogram Bilateral W Brandy Vyas CNS Phone: tel: fax: [facility] [address] [place] [address] Referral ID Status Reason Start Date Expiration Date Visits Re quested Visits Authorized [id number] Closed 04/25/2021 05/25/2022 1 1 RITY PROJECT MANAGER Encounter Details Date Type Department Care Team (Late st Contact Info) Description 04/25/2021 Orders Only [facility] Surgery [address] [facility] 5th [place] [address] [place] [address] 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 Not on file Not on file documented as of this encounter Plan of Treatment Scheduled Orders Name Type Priority Associated Diagnoses Orde r Schedule Diagnostic Mammogram Bilateral W Marcelo Imaging Schedule Routine, Read Routine (OP Routine) History of right breast cancer Expected: 04/25/2021, Expires: 06/23/2022 documented as of this encounter Visit Diagnoses Diagnosis History of right breast cancer- Primary documented in this encounter Care Teams Pill Maker Relationship Specialty Start Date End Date Sylvia Dawson PA [address] [place] [address] PCP - General Internal Medicine 01/05/20 Erica Rodrigues MD [address] [facility] [address] [place] [address] Radiation Oncologist Radiation Oncology 10/25/18 Gasper Kaba MD [address] [place] [address] Surgeon Surgical Oncology 10/25/18 Brandy Aguirre, BOILER SETTER [address] [place] [address] Nurse Practitioner Certified Clinical Nurse Specialist 10/25/18 Jo-Ann Morrow, PhD [address] [place] [address] Nurse Practitioner Radiation Oncology 10/25/18 Christina Louis SEARCH ENGINE OPTIMIZATION SPECIALIST [address] [place] [address] Nurse Practitioner Medical Oncology 10/25/18 documented as of this encounter
--- OUTSIDE RECORDS SUMMARY | 2024-04-24 05:54 | XMS_ITS | Encounter Summary ---
Author Organization [facility] Healthcare Address [address] [place] [address] Care Team Providers Care Senior Net Architect Name Role Phone Erica Rodrigues MD Unavailable Gapser Kaba MD Unavailable Brandy Aguirre BRANCH RETAIL EXECUTIVE Unavailable [phone] Jo-Ann Morrow PhD Unavailable [phone] Christina Louis ELECTRONIC MAINTENANCE SUPERVISOR Unavailable Sylvia Dawson Primary Care Provider [phone] Reason for Referral * MRI/CAT/PET Scan (Routine) - Closed Specialty Diagnoses / Procedures Referred By Contac t Referred To Contact Diagnoses History of COVID-19 SOB (shortness of breath) Dyspnea and respiratory abnormalities Procedures CT Chest WO Contrast Jessenia Reyes MD Phone: tel: fax: External Order Referral ID Status Reason Start Date Expiration Date Visits Re quested Visits Authorized [id number] Closed 10/03/2020 11/01/2020 1 1 Reason for Visit * MRI/CAT/PET Scan (Routine) - Closed Specialty Diagnoses / Procedures Referred By Contac t Referred To Contact Diagnoses History of COVID-19 SOB (shortness of breath) Dyspnea and respiratory abnormalities Procedures CT Chest WO Contrast Jessenia eRyes MD Phone: tel: fax: External Order Referral ID Status Reason Start Date Expiration Date Visits Re quested Visits Authorized [id number] Closed 10/03/2020 11/01/2020 1 1 Encounter Details Date Type Department Care Team (Latest Contact Info) Description 10/08/2020 9:59 AM CDT - 10/08/2020 11:59 PM CDT Hospital Encounter [facility] [address] [place] [id number] Jessenia Reyes MD [address] [facility] [address] [address] History of COVID-19; SOB (shortness of breath); [...] file 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 Gender Identity Not on file Sexual Orientation Not on file 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 Not on file Not on file Not on file documented as of this encounter Medications at Time of Discharge albuterol HFA (ProAir HFA) 90 mcg/actuation inhaler Inhale 2 puffs every 4 (four) hours as needed for wheezing or shortness of breath 8.5 g 05/15/2020 aspirin 81 mg enteric coated tabletIndications :can't [...] 1 butalbital-acetam inophen-caffeine- codeine (FIORICET WITH CODEINE) [id number] mg per capsule Take 1 capsule by [...] Procedure Name Priority Date/Time Associated Diagnosis Comments CT CHEST WO CONTRAST Schedule Routine, Read Routine (OP Routine) 10/08/2020 10:24 AM CDT History of COVID-19 SOB (shortness of breath) Dyspnea and respiratory abnormalities documented in this encounter Results * CT Chest WO Contrast (10/08/2020 10:24 AM CDT) Anatomical Region Laterality Modality Body N/A Computed Tomogra phy 10/08/2020 10:5 4 AM CDT Addenda Addendum by Kenji Kim MD on 10/16/2020 2:47 PM CDT Addendum: This examination was reviewed with the patient's physician. The high attenuation within the right coronary artery that is circumferential represents a moderate amount of calcium in the vertical portion of the right coronary artery and not a stent. This discussion was carried forth by Dr. Sammie Martinez with Dr. Jessenia Reyes 10/16/2020 Electronically signed by: Kenji Kim M.D. Impressions 10/08/2020 11:01 AM CDT Minimal mosaic attenuation, consistent with small airway disease. Otherwise, no CT abnormality to explain shortness of breath. Dictated by: Yusuf Lozoya M.D. The radiology attending physician has personally reviewed this study, and had reviewed and/or edited this written report and agrees with it. Electronically signed by: Kenji Kim M.D. Narrative 10/08/2020 11:01 AM CDT EXAMINATION: ??Computed tomography of the chest without intravenous contrast HISTORY: 60-year-old female with shortness of breath. TECHNIQUE: ??Transaxial computed tomographic images of the chest were obtained without intravenous contrast according to the standard protocol. COMPARISON: None available. FINDINGS: ?? The trachea and large central airways are patent. There is minimal mosaic attenuation in keeping with small airways disease. There is also minimal subsegmental atelectasis in the dependent portions of the bilateral lung bases. There is no pneumonia, pleural effusion, pulmonary edema, or pneumothorax. Scattered tiny calcified nodules likely represent sequela of old granulomatous disease. Postsurgical changes of left hemithyroidectomy are noted including surgical clips within the left thyroid resection bed. There is no supraclavicular, axillary, mediastinal, or hilar lymphadenopathy. The heart size is normal. There is no pericardial thickening or pericardial effusion. There is multivessel coronary artery atherosclerosis. A coronary artery vascular stent is noted in the right coronary artery. The thoracic aorta is normal in course and caliber. There is a left-sided 3 vessel aortic arch with the standard configuration of the great vessels. There is mild calcified atherosclerosis of the aortic arch. The visualized portion of the liver is normal in size and morphology. The noncontrast appearance of the visualized portions of the pancreas, spleen, adrenal glands, and kidneys are normal. There are mild multilevel degenerative changes of the thoracic spine. There are no suspicious lytic or blastic osseous lesions on bone windows. There are no acute fractures. Procedure Note Kenji Kim MD - 10/08/2020 EXAMINATION: Computed tomography of the chest without intravenous contrast HISTORY: 60-year-old female with shortness of breath. TECHNIQUE: Transaxial computed tomographic images of the chest were obtained without intravenous contrast according to the standard protocol. COMPARISON: None available. FINDINGS: The trachea and large central airways are patent. There is minimal mosaic attenuation in keeping with small airways disease. There is also minimal subsegmental atelectasis in the dependent portions of the bilateral lung bases. There is no pneumonia, pleural effusion, pulmonary edema, or pneumothorax. Scattered tiny calcified nodules likely represent sequela of old granulomatous disease. Postsurgical changes of left hemithyroidectomy are noted including surgical clips within the left thyroid resection bed. There is no supraclavicular, axillary, mediastinal, or hilar lymphadenopathy. The heart size is normal. There is no pericardial thickening or pericardial effusion. There is multivessel coronary artery atherosclerosis. A coronary artery vascular stent is noted in the right coronary artery. The thoracic aorta is normal in course and caliber. There is a left-sided 3 vessel aortic arch with the standard configuration of the great vessels. There is mild calcified atherosclerosis of the aortic arch. The visualized portion of the liver is normal in size and morphology. The noncontrast appearance of the visualized portions of the pancreas, spleen, adrenal glands, and kidneys are normal. There are mild multilevel degenerative changes of the thoracic spine. There are no suspicious lytic or blastic osseous lesions on bone windows. There are no acute fractures. IMPRESSION: Minimal mosaic attenuation, consistent with small airway disease. Otherwise, no CT abnormality to explain shortness of breath. Dictated by: Yusuf Lozoya M.D. The radiology attending physician has personally reviewed this study, and had reviewed and/or edited this written report and agrees with it. Electronically signed by: Kenji Kim M.D. us Jessenia Reyes MD IMG CT PROCEDURES Edited Resu lt - Final documented in this encounter Visit Diagnoses Diagnosis History of COVID-19 SOB (shortness of breath) Shortness of breath Dyspnea and respiratory abnormalities documented in this encounter Care Teams Senior Net Architect Relationship Specialty Start Date End Date Sylvia Dawson PA [address] [place] [address] PCP - General Internal Medicine 01/05/20 Erica Rodrigues MD [address] [place] [address] Radiation Oncologist Radiation Oncology 10/25/18 Gasper Kaba MD [address] [place] [address] Surgeon Surgical Oncology 10/25/18 Brandy Aguirre, BRANCH RETAIL EXECUTIVE [address] [place] [address] Nurse Practitioner Certified Clinical Nurse Specialist 10/25/18 Jo-Ann Morrow, PhD [address] [place] [address] Nurse Practitioner Radiation Oncology 10/25/18 Christina Louis NP [address] [place] [address] Nurse Practitioner Medical Oncology 10/25/18 documented as of this encounter
--- OUTSIDE RECORDS SUMMARY | 2024-04-24 05:54 | XMS_ITS | Encounter Summary ---
Author Organization [facility] Address [address] [place] [address] Phone Care Team Providers Care Night Clerk Name Role Phone Erica Rodrigues MD Unavailable Gasper Kaba MD Unavailable [phone] Brandy Aguirre SEO EXECUTIVE Unavailable [phone] Jo-Ann Morrow PhD Unavailable [phone] Christina Louis STRESS ANALYST Unavailable [phone] Sylvia Dawson Primary Care Provider [phone] Encounter Details Date Type Department Care Team (Late st Contact Info) Description 06/26/2020 Telephone [facility] Cardiology [address] [facility] Advanced Medicine 8th [place] [address] [place] [address] Lv Thompson MD [address] [facility] [address] [place] [address] Social History Tobacco Use Types Packs/Day Years [...] on file 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 Denney is updated on Dr. Thompson's recommendations. She confirms that she doesn't feel bad during the rapid heart rate episodes, just not quite right . She is agreeable to increasing her Atenololto 75 mg (1.5 tabs) daily and keeping tract of her BP. She is made aware that her PCP may need to decrease her Lisinopril dose if her BP is low on the increased dose of Atenolol. She is also made aware that Dr. Thompson may recommend that she repeat the ambulatory monitoring if her heart rate episodescontinue. She verbalizes understanding and is agreeable to all of the above. * Telephone Encounter - Lv Thompson MD - 06/26/2020 11:03 AM CDT Thank you, Marcelina. Below are the options we can offer Ms. Denney at this time: 1) Given that she is not having symptoms with her fast heart rates and that her most recent echo showed normal cardiac function, we can continue to monitor her paroxysms of tachycardia. They may subside as she gets further away from her COVID infection, but there is no guarantee. 2) She can increase her atenolol to 75 mg daily by taking 1.5 tabs of her existing 50 mg tabs. If she chooses this option, she should continue to take her dose in the morning all at once (as opposed to split dosing) and should track her blood pressures because her lisinopril dose may need to be decreased by her PCP. Regardless of the above, should she have persistent or sustained tachycardia later this year, we should consider repeating ambulatory monitoring. * Telephone Encounter - Marcelina Renner RN - 06/26/2020 10:34 AM CDT Ms. Denney calls to report c/o about 1.5 week h/o rapid heart rate sensation. She states she wakesup at night with HR 80s to 90s (per her FitBit), and in the am, she notices that her HR Is up to 135 bpm with walking around inside her house. She was hospitalized at [facility] for Covid/Pneumonia in May (05/18 to 05/23), discharged on Zpackand Dexamethasone. Once she was home, she reported BP readings as low as 70/50s, which [facility] stop her Lisinopril and decrease her Atenolol to 25 mg daily. Now, she isback to Lisinopril 40 mg daily and Atenolol 50 mg daily. Her BP readings have been 105/70 to 130s/90. She wonders if she needs to take Atenolol twice daily. She states she spoke with her primary careproviders regarding this, and she was told to reach out to her heart doctor. Will update Dr. Thompson and seek guidance on her question. thx * Telephone Encounter - Jodie Partida - 06/26/2020 10:14 AM CDT prachi Pt calling to speak with a nurse about her having issues with tachycardia for about a week and a half she thinks may be due to her medication or covid It happens every morning including this morning and she says there aren't really any other symptoms documented in this encounter Plan of Treatment Not on file documented as of this encounter Visit Diagnoses Not on filedocumented in this encounter Additional Health Concerns Infection Onset Date Last Indicated Resolved Time COVID: Recovered Comment:Added based on recent COVID infection. 05/22/2020 05/26/2020 09/19/2020 3:05 AM C DT documented as of this encounter Care Teams Night Clerk Relationship Specialty Start Date End Date Sylvia Dawson PA [address] [place] [address] PCP - General Internal Medicine 01/05/20 Erica Rodrigues MD [address] [place] [address] Radiation Oncologist Radiation Oncology 10/25/18 Gasper Kaba MD [address] [place] [address] Surgeon Surgical Oncology 10/25/18 Brandy Aguirre, SEO EXECUTIVE [address] [place] [address] Nurse Practitioner Certified Clinical Nurse Specialist 10/25/18 Jo-Ann Morrow, PhD [address] [place] [address] Nurse Practitioner Radiation Oncology 10/25/18 Christina Louis, STRESS ANALYST [address] [place] [address] Nurse Practitioner Medical Oncology 10/25/18 documented as of this encounter
--- OUTSIDE RECORDS SUMMARY | 2024-04-24 05:54 | XMS_ITS | Encounter Summary ---
Author Organization [facility] Healthcare Address [address] [place] [address] Care Team Providers Care Automotive Upholsterer Name Role Phone Erica Rodrigues MD Unavailable Gasper Kaba MD Unavailable [phone] Brandy Aguirre NUT ORCHARDIST Unavailable [phone] Jo-Ann Morrow PhD Unavailable [phone] Christina Louis TECHNOLOGY EDUCATION TEACHER Unavailable [phone] Sylvia Dawson Primary Care Provider [phone] Encounter Details Date Type Department Care Team (Late st Contact Info) Description 04/18/2021 7:25 PM TRUST ADVISOR Lab [address] [address] Rheumatoid arthritis with negative rheumatoid factor, involving unspecified site (HCC); High risk medication use Social History Tobacco [...] on file 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 Female 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 Gender Identity Not on file Sexual Orientation Not on file 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 Not on file Not on file documented as of this encounter Plan of Treatment Not on file documented as of this encounter Procedures Procedure Name Priority Date/Time Associated Diagnosis Comments ERYTHROCYTE SEDIMENTATION RATE Routine 04/18/2021 4:28 PM TRUST ADVISOR Rheumatoid arthritis with negative rheumatoid factor, involving unspecified site (HCC) High risk medication use CRP (ACUTE PHASE) Routine 04/18/2021 4:2 8 PM TRUST ADVISOR Rheumatoid arthritis with negative rheumatoid factor, involving unspecified site (HCC) High risk medication use documented in this encounter Results * Erythrocyte sedimentation rate (04/18/2021 4:28 PM TRUST ADVISOR) Erythrocyte sedimentation rate 4 1 - 30 mm/hr [facility] Blood 04/18/2021 4:28 PM TRUST ADVISOR 04/18/2021 7:26 PM TRUST ADVISOR Patricia Martinez MD LAB BLOOD ORDERABLES Final R esult Performing Organization Address [facility] Co de Phone Number [facility] [place] [address] * CRP (acute phase) (04/18/2021 4:28 PM TRUST ADVISOR) CRP 0.7 <=10.0 mg/L [facility] Blood 04/18/2021 4:28 PM TRUST ADVISOR 04/18/2021 7:26 PM TRUST ADVISOR Patricia Martinez MD LAB BLOOD ORDERABLES Final R esult Performing Organization Address [facility] Co de Phone Number [facility] [place] [address] documented in this encounter Visit Diagnoses Diagnosis Rheumatoid arthritis with negative rheumatoid factor, involving unspecified site (HCC) High risk medication use documented in this encounter Care Teams Automotive Upholsterer Relationship Specialty Start Date End Date Sylvia Dawson PA [address] [place] [address] PCP - General Internal Medicine 01/05/20 Erica Rodrigues MD [address] [place] [address] Radiation Oncologist Radiation Oncology 10/25/18 Gasper Kaba MD [address] [place] [address] Surgeon Surgical Oncology 10/25/18 Brandy Aguirre, NUT ORCHARDIST [address] [place] [address] Nurse Practitioner Certified Clinical Nurse Specialist 10/25/18 Jo-Ann Morrow, PhD [address] [place] [address] Nurse Practitioner Radiation Oncology 10/25/18 Christina Louis TECHNOLOGY EDUCATION TEACHER [address] [place] [address] Nurse Practitioner Medical Oncology 10/25/18 documented as of this encounter
--- OUTSIDE RECORDS SUMMARY | 2024-04-24 05:54 | XMS_ITS | Encounter Summary ---
Author Organization [facility] Address [address] [place] [address] Care Team Providers Care Classified Advertising Manager Name Role Phone Erica Rodrigues MD Unavailable Gasper Kaba MD Unavailable [phone] Brandy Aguirre CLIENT TECHNOLOGIES ANALYST Unavailable [phone] Jo-Ann Morrow PhD Unavailable [phone] Christina Louis ENVIRONMENTAL ENGINEERING MANAGER Unavailable [phone] Sylvia Dawson Primary Care Provider [phone] Reason for Visit * Reason Comments Follow-up dyspnea and respirat ory abnormalities Encounter Details Date Type Department Care Team (Late st Contact Info) Description 11/13/2020 10:30 AM CDT Office Visit [facility] Pulmonology [address] [place] [address] [place] [address] [place] [address] [address] [place] [address] Bronchiolitis (Primary Dx); Dyspnea and respiratory abnormalities; Rheumatoid arthritis, involving unspecified site, unspecified whether rheumatoid factor present (HCC); History of COVID-19 Social History Tobacco Use [...] on file 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 Gender Identity Not on file Sexual Orientation Not on file 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 Not on file Not on file Not on file documented as of this encounter Last Filed Vital Signs Vital Sign Reading Time Taken Comments Blood Pressure 119/70 11/13/2020 10:31 AM CDT Pulse 73 11/13/2020 10:31 AM CDT Temperature 36.7 ??C (98 ??F) 11/13/2020 10:31 AM CDT Respiratory Rate 18 11/13/2020 10:31 AM CDT Oxygen Saturation 97% 11/13/2020 10:31 AM CDT Inhaled Oxygen Concentration - - Weight 66.4 kg (146 lb 4.8 oz) 11/13/2020 10:31 AM CDT Height 160 cm (5' 3 ) 11/13/2020 10:31 AM CDT Body Mass Index 25.92 11/13/2020 10:31 AM CDT documented in this encounter Progress Notes * Jessenia Reyes MD - 11/13/2020 10:30 AM CDT Images from the original note were not included. PULMONARY CLINIC NOTE Visit Date: 11/13/2020 INTERVAL HISTORY: Presents today for follow-up of ??? post COVID Overall breathing better. Fatigue and dyspnea with exertion still present but improved. No coughing No wheezing No upper respiratory symptoms. HPI: Patient is a 60 y.o. female [...] smoker. Rare etoh. No drug use. 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 Review of Systems: Review of [...] for behavioral problems. OBJECTIVE: Physical Exam: Vitals: 11/13/20 1031 BP: 119/70 Pulse: 73 Resp: 18 Temp: 36.7 ??C (98 ??F) SpO2: 97% Weight: 66.4 kg (146 lb 4.8 oz) Height: 160 cm (5' [...] Tenderness: There is no abdominal tenderness. Musculoskeletal: Cervical back: No rigidity. Right lower leg: No edema. Left lower leg: No edema. Skin: General: Skin is dry. Coloration: Skin [...] pulmonic regurgitation. Compared with 2020: no change. ASSESSMENT AND PLAN 1. dyspnea-bronchiolitis o Has some mild mosaic attenuation on chest CT, probably post infectious bronchiolitis. No obstruction or major airflow limitation on PFT suggests asthma. o continue p.r.n. albuterol for now o 2. history COVID-19 o in April 2020 with hospitalization in May 2020. o Having some post COVID issues but is slowly starting to improve. Continue exercise to improve cardiovascular muscular conditioning. 3. rheumatoid arthritis o No signs of pulmonary HTN on her recent echo. CT chest with w/o signs of methotrexate toxicity orpulmonary rheumatoid complications. o Continue follow-up with Rheumatology o Is actually off methotrexate at the moment Jessenia Reyes MD There may be syntax/grammatical errors in this note due to the use of voice recognition software. documented in this encounter Plan of Treatment Not on file documented as of this encounter Visit Diagnoses Diagnosis Bronchiolitis- Primary Acute bronchiolitis due to other infectious organisms Dyspnea and respiratory abnormalities Rheumatoid arthritis, involving unspecified site, unspecified whether rheumatoid factor present (HCC) History of COVID-19 documented in this encounter Care Teams Classified Advertising Manager Relationship Specialty Start Date End Date Sylvia Dawson PA [address] [place] [address] PCP - General Internal Medicine 01/05/20 Erica Rodrigues MD [address] [facility] [address] [place] [address] Radiation Oncologist Radiation Oncology 10/25/18 Gasper Kaba MD [address] [facility] [address] [place] [address] Surgeon Surgical Oncology 10/25/18 Brandy Aguirre CNS [address] [facility] [address] [place] [address] Nurse Practitioner Certified Clinical Nurse Specialist 10/25/18 Jo-Ann Morrow, PhD [address] [facility] [address] [place] [address] Nurse Practitioner Radiation Oncology 10/25/18 Christina Louis NP [address] [facility] [address] [place] [address] Nurse Practitioner Medical Oncology 10/25/18 documented as of this encounter
--- OUTSIDE RECORDS SUMMARY | 2024-04-24 05:54 | XMS_ITS | Encounter Summary ---
Author Organization [facility] Address [address] [place] [address] Care Team Providers Care Bingo Clerk Name Role Phone Erica Rodrigues MD Unavailable Gasper Kaba MD Unavailable [phone] Brandy Aguirre CLOCK SMITH Unavailable [phone] Jo-Ann Morrow PhD Unavailable [phone] Christina Louis LEATHER CARVER Unavailable [phone] Sylvia Dawson Primary Care Provider [phone] Reason for Referral * Diagnostic Imaging (Routine) - Closed Specialty Diagnoses / Procedures Referred By Contac t Referred To Contact Diagnoses History of COVID-19 Pneumonia due to COVID-19 virus Procedures XR Chest Pa Lateral 2 Views Sylvia Dawson PA [address] [place] [address] Phone: tel: fax: Unknown Place of Service fax: Referral ID Status Reason Start Date Expiration Date Visits Re quested Visits Authorized [id number] Closed 06/04/2020 07/04/2021 1 1 RER HELPER Reason for Visit * Reason Comments Hospital Follow Up COVID recovery/ SOB Encounter Details Date Type Department Care Team (Late st Contact Info) Description 06/04/2020 5:30 PM SHEARER HELPER Office Visit [facility] Family Medicine [address] [place] [address] Sylvia Dawson PA [address] [place] [address] Pneumonia due to COVID-19 virus (Primary Dx); History of COVID-19; Rheumatoid arthritis with negative rheumatoid factor, involving unspecified site (CMS/HCC); Atrial tachycardia (CMS/HCC); Hypertension, essential; BMI 23.0-23.9, adult Social History Tobacco Use Types Packs/Day Years Used Date Smoking Tobacco: Never Smokeless Tobacco: Never Alcohol Use Standard Drinks/Week Comments Yes 1 (1 standard drink = 0.6 oz pur e alcohol) social PHQ-2 Answer Date Recorded PHQ-2 Total Score (If total score is 3 or more points, staff should administer the PHQ-9) 0 06/04/2020 Comments No Sex and Gender Information Value Date Recorded Sex Assigned at Not on file Legal Sex Female 3:42 AM SHEARER HELPER Gender Identity Not on file Sexual Orientation Not on file 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 Not on file Not on file Not on file documented as of this encounter Last Filed Vital Signs Vital Sign Reading Time Taken Comments Blood Pressure 98/60 06/04/2020 5:48 PM SHEARER HELPER Pulse 74 06/04/2020 5:48 PM SHEARER HELPER Temperature 36.3 ??C (97.3 ??F) 06/04/2020 5:48 PM CS T Respiratory Rate - - Oxygen Saturation 97% 06/04/2020 5:48 PM SHEARER HELPER Inhaled Oxygen Concentration - - Weight 61.4 kg (135 lb 4.8 oz) 06/04/2020 5:48 P M SHEARER HELPER Height 160 cm (5' 3 ) 06/04/2020 5:48 PM SHEARER HELPER Body Mass Index 23.97 06/04/2020 5:48 PM SHEARER HELPER documented in this encounter Ordered Prescriptions Prescription Sig Dispense Quantity Refills Last Filled Start Date End Date sulfaSALAzine EN (AZULFIDINE EN) 500 mg EC tablet Take 1 tablet (500 mg total) by mouth daily 90 tablet 06/04/2020 atenoloL (TENORMIN) 25 mg tablet Take 1 tablet (25 mg total) by mouth daily Cancel the 50mg Rx to avoid duplicate therapy 30 tablet 1 06/04/2020 documented in this encounter Progress Notes * Sylvia Dawson PA - 06/04/2020 5:30 PM CST Images from the original note were not included. Subjective/Objective Patient ID: Yesika Denney is a 59 y.o. female. Chief Complaint Hospital Follow Up (COVID recovery/ SOB) HPI Patient presents to followup recent hospitalization. Admit: 05/18/2020 to [facility] with SOB/hypoxia Discharge: 05/23/2020 TCM call not completed Today is Day 12 after discharged. ISylvia PA have personally reviewed all Hospital/ER data including [employer] and CareEverywhere if available. This patient's discharge medication list has been reviewed and reconciled with the medication list in the office chart and has also been reviewed with patient and/or caregiver. I have noted any changes. Dx: RLL pneumonia, COVID 19, RA, HTN RLL pneumonia -- pt presented with SOB and O2sats in the mid 80s. CXR c/w pneumonia and with immunocompromised state/RA was started on antibiotics to cover bacterialsuperimposed on COVID 19. Rocephin, Zithromax, Dexamethasone and Albuterol. Weened O2 and discharged home with antibiotics (done) and Dexamethasone 6mg for 7 days (done). COVID-19 Tested positive 05/07. Remdesivir and Dexamethasone and Plasma. O2 weened. RA - MTX was held during stay. Restarted On Plaquenil and sulfaslazine. HTN -- Lisinopril 40mg and atenolol 50mg daily bp when at home was in the 80/50 so she stopped the lisinopril 40. Todays reading is on Atenolol 50mg daily Depression -- Prozac 30mg daily -- decreased to 20 and sleeping better since stopping melatonin In general, feeling better. Still SOB at times and fatigues easily. Prn albuterol. Review of Systems Constitutional: Negative for fever. HENT: Negative for congestion. Respiratory: Negative for shortness of breath. Cardiovascular: Negative for chest pain. Gastrointestinal: Negative for constipation and diarrhea. Vitals: 06/04/20 1748 BP: 98/60 BP Location: Left arm Patient Position: Sitting Pulse: 74 Temp: 36.3 ??C (97.3 ??F) SpO2: 97% Weight: 61.4 kg (135 lb 4.8 oz) Height: 160 cm (5' [...] Diagnoses and all orders for this visit: Pneumonia due to COVID-19 virus (U07.1, J12.82) (Primary) Assessment & Plan: Recovering. Recommend rechecking Chest Xray in 1-2 week for resolution. She is to followup immediately for increased sxs. Orders: - XR Chest Pa Lateral 2 Views; Future History of COVID-19 (Z86.16) Assessment & Plan: 05/07/2020 - positive. Hospitalized 05/18 - 05/23 for pneumonia Orders: - XR Chest Pa Lateral 2 Views; Future Rheumatoid arthritis with negative rheumatoid factor, involving unspecified site ([facility]) (M06.00) Assessment & Plan: Continue per Rheum. Monitor sxs. May flair due to medication holiday Atrial tachycardia ([facility]) (I47.1) Assessment & Plan: bp has been low since hospitalization. Holding the lisinopril and still low. Will decrease the atenolol to 25mg daily and monitor closely as uses for tachy. Hypertension, essential (I10) Assessment & Plan: Bp is in low range for any co-morbidities. Encouraged to limit sodium intake and exercise for weight control. Continue to hole the lisinopril Cut atenolol to 25mg. Monitor readings at home. BMI 23.0-23.9, adult (Z68.23) Assessment & Plan: Weight/BMI is in healthy range. Continue healthy lifestyle to maintain. Other orders - atenoloL (TENORMIN) 25 mg tablet; Take 1 tablet (25 mg total) by mouth daily Cancel the 50mg Rx to avoid duplicate therapy - sulfaSALAzine EN (AZULFIDINE EN) 500 mg EC tablet; Take 1 tablet (500 mg total) by mouth daily Sylvia Dawson PA-C RER HELPER documented in this encounter Miscellaneous Notes * Assessment & Plan Note - Sylvia Dawson PA - 06/04/2020 9:40 PM SHEARER HELPER Associated Problem(s): History of COVID-19 05/07/2020 - positive. Hospitalized 05/18 - 05/23 for pneumonia RER HELPER * Assessment & Plan Note - Sylvia Dawson PA - 06/04/2020 9:39 PM SHEARER HELPER Associated Problem(s): BMI 23.0-23.9, adult (Resolved 08/22/2020) Weight/BMI is in healthy range. Continue healthy lifestyle to maintain. RER HELPER * Assessment & Plan Note - Sylvia Dawson PA - 06/04/2020 9:39 PM SHEARER HELPER Associated Problem(s): Rheumatoid arthritis with negative rheumatoid factor (HCC) Continue per Rheum. Monitor sxs. May flair due to medication holiday RER HELPER * Assessment & Plan Note - Sylvia Dawson PA - 06/04/2020 9:38 PM SHEARER HELPER Associated Problem(s): Hypertension, essential Bp is in low range for any co-morbidities. Encouraged to limit sodium intake and exercise for weight control. Continue to hole the lisinopril Cut atenolol to 25mg. Monitor readings at home. RER HELPER * Assessment & Plan Note - Sylvia Dawson PA - 06/04/2020 9:37 PM SHEARER HELPER Associated Problem(s): Atrial tachycardia (HCC) bp has been low since hospitalization. Holding the lisinopril and still low. Will decrease the atenolol to 25mg daily and monitor closely as uses for tachy. RER HELPER * Assessment & Plan Note - Sylvia Dawson PA - 06/04/2020 9:36 PM SHEARER HELPER Associated Problem(s): Pneumonia due to COVID-19 virus (Resolved 08/26/2021) Recovering. Recommend rechecking Chest Xray in 1-2 week for resolution. She is to followup immediately for increased sxs. RER HELPER documented in this encounter Plan of Treatment Not on file documented as of this encounter Results * XR Chest Pa Lateral 2 Views (08/28/2020) Anatomical Region Laterality Modality Body, Chest N/A Radiographic Katty ging Sylvia JONES IMG XR PROCEDURES Final Re sult documented in this encounter Visit Diagnoses Diagnosis Pneumonia due to COVID-19 virus- Primary History of COVID-19 Rheumatoid arthritis with negative rheumatoid factor, involving unspecified site (HCC) Atrial tachycardia (HCC) Other specified cardiac dysrhythmias Hypertension, essential Unspecified essential hypertension BMI 23.0-23.9, adult documented in this encounter Discontinued Medications Medication Sig Discontinue Reason Start Date End Da te methylPREDNISolone (MEDROL DOSEPACK) 4 mg Dosepack Take as directed on package. 05/15/2020 06/04/2020 atenoloL (TENORMIN) 50 mg tablet Take 1 tablet (50 mg total) by mouth daily 12/14/2019 06/04/2020 FLUoxetine (PROzac) 10 mg tablet/capsule Take 1 tablet/capsule (10 mg total) by mouth daily 01/05/2020 06/04/2020 documented as of this encounter Additional Health Concerns Infection Onset Date Last Indicated Resolved Time COVID: Recovered Comment:Added based on recent COVID infection. 05/22/2020 05/26/2020 09/19/2020 3:05 AM C DT documented as of this encounter Care Teams Bingo Clerk Relationship Specialty Start Date End Date Sylvia Dawson PA [address] [place] [address] PCP - General Internal Medicine 01/05/20 Erica Rodrigues MD [address] [facility] [address] [place] [address] Radiation Oncologist Radiation Oncology 10/25/18 Gasper Kaba MD [address] [facility] [address] [place] [address] Surgeon Surgical Oncology 10/25/18 Brandy Aguirre, CLOCK SMITH [address] [facility] [address] [place] [address] Nurse Practitioner Certified Clinical Nurse Specialist 10/25/18 Jo-Ann Morrow, PhD [address] [place] [address] Nurse Practitioner Radiation Oncology 10/25/18 Christina oLuis NP [address] [facility] [address] [place] [address] Nurse Practitioner Medical Oncology 10/25/18 documented as of this encounter
--- OUTSIDE RECORDS SUMMARY | 2024-04-24 05:54 | XMS_ITS | Encounter Summary ---
Author Organization [facility] Address [address] [place] [address] Phone Care Team Providers Care Numerologist Name Role Phone Erica Rodrigues MD Unavailable Gasper Kaba MD Unavailable [phone] Brandy Aguirre OVER THE HORIZON TARGETING SUPERVISOR Unavailable [phone] Jo-Ann Morrow PhD Unavailable Christina Louis ALL SOURCE ANALYST Unavailable [phone] Sylvia Dawson Primary Care Provider [phone] Encounter Details Date Type Department Care Team (Late st Contact Info) Description 07/20/2020 11:30 AM CDT Office Visit [facility] [address] [facility] 7th [place] [address] [place] [id number] Christina Louis, ALL SOURCE ANALYST [address] [place] [address] Malignant neoplasm of central portion of right breast in female, estrogen receptor positive (CMS/HCC) (Primary Dx); History of breast cancer Social History Tobacco Use Types Packs/Day Years [...] on file Legal 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 Gender Identity Not on file Sexual Orientation Not on file 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 Not on file Not on file Not on file documented as of this encounter Last Filed Vital Signs Vital Sign Reading Time Taken Comments Blood Pressure 126/80 07/20/2020 11:23 AM CDT Pulse 61 07/20/2020 11:23 AM CDT Temperature 36.4 ??C (97.5 ??F) 07/20/2020 11:23 AM C DT Respiratory Rate 18 07/20/2020 11:23 AM CDT Oxygen Saturation 97% 07/20/2020 11:23 AM CDT Inhaled Oxygen Concentration - - Weight 62.7 kg (138 lb 3.2 oz) 07/20/2020 11:23 AM CDT Height - - Body Mass Index 24.48 06/04/2020 5:48 PM DOCKING SAW OPERATOR documented in this encounter Patient Instructions * Patient Instructions* Christina Louis ALL SOURCE ANALYST - 07/20/2020 11:30 AM CDT Healthy Behavior Recommendations: ??? Evidence suggests an active lifestyle and achieving and maintaining an ideal body weight (20-25BMI) is optimal for health. Experts recommend at least 30 minutes of moderate to vigorous activity per day as tolerated, 5 days a week. ??? Eat healthy, including plenty of fresh fruits and vegetables daily. Strive to have 2/3 cup of your plate to be vegetables, fruits, whole grains and beans, while 1/3 or less should be an animal product. Choose fish and chicken and limit red meat and processed meats. ??? Limit alcohol intake to one drink per day or less for a woman and two drinks or less per day for a man. ??? Avoid smoking! ??? Practice sun safety: Use a water resistant sunscreen with SPF of at least 30 to protect againstUVA and UVB rays to protect against skin cancer. Apply sunscreen every two hours or after swimming or excessive sweating. Consider using physical barriers whenever possible (ex. Hats, shirts with sleeves, avoid direct sun during peak hours). ??? Keep up-to-date on general health screening tests, including cholesterol, blood pressure and glucose (blood sugar) levels. Please have a primary physician for routine care. [id number] for [facility] Doctors. ??? Get an annual influenza vaccine (flu shot). ? ? Get vaccinated with the pneumococcal vaccine if > 64 yrs old, which prevents a type of pneumonia, and re-vaccinated as determined by your primary healthcare team. ? ? Get vaccinated with the shingles vaccine if > 60 yrs old ??? Keep up-to-date on dental and eye exams. Psychological, Emotional, Relational, and Spiritual Aspects of Survivorship: The transition from active treatment to a cancer survivor can be a confusing and emotional time butalso one of personal growth. Survivors often have time to process emotionally what having cancer has meant to them after treatment. Fear of recurrence is a feeling commonly experienced by many survivors after treatment. Some things that might be helpful during this time include: ??? Talk with other cancer survivors by attending a support group. ??? Talk with a professional, either an Manager Small Business or mental health professional. Your oncology team can assist with connecting you to someone who can help with anxiety, depression, etc. ??? There are many normal responses to living with uncertainty and fear of recurrence, but if you find that it prevents you from enjoying life or you have a lot of fear and feel overwhelmed, we recommend you talk with a mental health professional or a [facility] Counselor. [facility] counseling [phone]. ??? There are many online websites which offer resources for spiritual, emotional, and support networks for breast cancer survivors: [employer]XOG and faiththroughOne Publice.org are a few. ??? [place] [employer]'s iTHRIVE plan is designed to help you heal from cancer treatment, reduce risk of recurrence, and achieve optimal wellness. This is an engaging and easy to use, online platform to create personalized lifestyle-based wellness plans for cancer survivors. http s://www.aicr.org/patients-survivors/ithrive/ Sexual Health: ??? Women should avoid for the first year after completing treatment. Discuss reliable forms of avoiding with your healthcare provider/forestry supervisor. If you are a woman planning toget in the future, you should see a doctor specializing in fertility in cancer survivors. We can refer you to a fertility specialist. ??? For women, chemotherapy agents or endocrine therapy may cause vaginal dryness, painful intercourse, reduced sexual desire, and inability to achieve orgasm. Many of these issues are caused by the sudden onset of menopause, which can occur with cancer therapy or from endocrine therapy. If you areexperiencing any of these issues, we can refer you to a specialist. There are several wznw-wnb-nzgwnrt vaginal moisturizers that can be used, such as Replens, NeuEve, or coconut oil. Late Effects From Cancer Treatment: It is possible to experience some late effects from any of yourcancer treatments. Whether you experience any of these varies between people and types of treatmentyou have received. Report the following symptoms to your healthcare provider right away: ??? feeling more tired or weak than usual ??? shortness of breath ??? loss of appetite ??? weight loss ??? chills, fever ??? recurrent infections ??? drenching night sweats ??? painless swelling of a lymph node ??? new pain that does not go away ??? easily bruising, nose bleeds, bleeding from the gums ??? pain when urinating ??? urinary hesitancy (difficulty starting the stream), urinating frequently, blood in your urine ??? Blood in stool or dark, tarry stools Any of the following symptoms should be brought to the attention of your provider: ??? A brand new symptom. ??? A symptom that does not go away or gets worse. ??? Anything you are worried about that might be related to the cancer coming back. Please activate nuPSYS for online communication. If you are uncertain how to access please contactthe nuPSYS support center at: [phone] or [phone]. LIVE WELL! You can reach Christina Louis NP at [phone]. documented in this encounter Progress Notes * Christina Louis, ALL SOURCE ANALYST - 07/20/2020 11:30 AM CDT Yesika Denney 1960 07/20/2020 Oncology History Overview Note Patient of Dr. Calix followed in [facility]. DIAGNOSIS: Stage I, [id number], invasive ductal carcinoma of the right breast, grade 2, ER positive, MN positive, HER-2 negative. Oncotype DX 22. GENETIC: [employer] extended gene panel 03/2015 showed no significant mutation or variant. ONCOLOGY TREATMENT HISTORY: 1. Pt dx age 54 with a palpable mass in upper central right breast. Right breast biopsy, 10/27/2014showed invasive ductal carcinoma grade 2/3. 2. 11/16/2014 Right lumpectomy with sentinel lymph node biopsy, showed 1.3 cm invasive ductal carcinoma, grade 1, no LVI, negative margins, with intermediate grade DCIS, biomarkers ER/MN positive, HER2 negative for stage IA [id number] disease, per Dr. Saulo Bain. 3. Oncotype DX recurrence score 22, intermediate risk. 4. Adjuvant accelerated partial breast radiation completed 01/05/[address] Rodrigues. 5. Adjuvant Taxotere, cyclophosphamide x4 cycles, 01/2015 to 03/22/[address] Calix. 6. Adjuvant Arimidex, 04/2015 to 06/2015. Discontinued due to rheumatoid arthritis. Malignant neoplasm of central portion of right breast in female, estrogen receptor positive (CMS/HCC) 10/27/2014 Initial Diagnosis Malignant neoplasm of central portion of right breast in female, estrogen receptor positive (CMS/HCC) HISTORY OF PRESENT ILLNESS Yesika Denney is a 60 y.o. female with a history of stage I breast ER positive cancer returningfor routine oncologic follow-up. She was intolerant to adjuvant endocrine treatment. She remains onobservation for history of breast cancer. She continues to follow with rheumatology for history of rheumatoid arthritis which apparently is under good control at this time. She was diagnosed with covid19 on 05/06/20. She was hospitalized at [facility] 10 days later and stayed for a week due to covid pneumonia. She has residual shortness of breath and nonproductivecough. She denies fever, headaches, night sweats, chest pain, abdominal issues, changes in her bowel or bladder function or localized areas of pain. She remains active and tries exercise on a regularbasis but now limited post Covid. Past Medical History: Diagnosis Date ??? Benign left breast lump 06/2002 biopsy showed fibrosis and hyperplasia ??? Brain aneurysm ??? Brain aneurysm Followed by Dr. Chaudhari: Every 3 years ??? Breast cancer (CMS/HCC) ??? Depression ??? Elevated cholesterol ??? Hypertension ??? Migraine ??? RA (rheumatoid arthritis) (CMS/HCC) Allergies Allergen Reactions ??? Adhesive Hives ??? Adhesive Tape-Silicones Rash ??? Cyclizine Other (See comments) and Hallucinations Reaction: Urinary retention Current Outpatient Medications Medication Sig Dispense Refill ??? albuterol HFA (ProAir HFA) 90 mcg/actuation inhaler Inhale 2 puffs every 4 (four) hours as needed for wheezing or shortness of breath 8.5 g 0 ??? aspirin 81 mg enteric coated tablet Take 81 mg by mouth 2 (two) times a week ??? atenoloL (TENORMIN) 25 mg tablet Take 1 tablet (25 mg total) by mouth daily Take 25 mg + 50 mg for total of 75 mg daily 90 tablet 3 ??? atenoloL (TENORMIN) 50 mg tablet Take 1 tablet (50 mg total) by mouth daily Take 50 mg + 25 mg for total 75 mg daily. 90 tablet 3 ??? ypesbrhayn-arwxrxzsecpbg-kwoxqmli-codeine (FIORICET WITH CODEINE) [id number] mg per capsule Take 1 capsule by mouth every 4 (four) hours as needed for headaches 20 capsule 0 ??? FLUoxetine (PROzac) 20 mg capsule Take 1 capsule (20 mg total) by mouth daily 90 capsule 1 ??? hydrOXYchloroQUINE (PLAQUENIL) 200 mg tablet Take 1 tablet (200 mg total) by mouth daily 90 tablet 2 ??? lisinopriL (PRINIVIL,ZESTRIL) 40 mg tablet Take 1 tablet (40 mg total) by mouth daily 90 tablet0 ??? methotrexate 2.5 mg tablet Take 8 tablets (20 mg total) by mouth once a week (Patient taking differently: Take 20 mg by mouth once a week Take 6 tablets by mouth once a week) 96 tablet 1 ??? predniSONE (DELTASONE) 10 mg tablet ??? sulfaSALAzine EN (AZULFIDINE EN) 500 mg EC tablet Take 1 tablet (500 mg total) by mouth daily 90 tablet 0 ??? valACYclovir (Valtrex) 500 mg tablet Take 1 tablet (500 mg total) by mouth daily 90 tablet 2 ??? folic acid (FOLVITE) 1 mg tablet Take 2 tablets (2 mg total) by mouth daily 180 tablet 3 No current facility-administered medications for this visit. Social History Socioeconomic History ??? Marital status: Spouse name: Not on file ??? Number of children: 3 ??? Years of education: Not on file ??? Highest education level: Not on file Occupational History ??? 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 Smoking status: Never Smoker ??? Smokeless tobacco: Never Used Substance and Sexual Activity ??? Alcohol use: Yes Alcohol/week: 1.0 standard drinks Types: 1 Shots of liquor per week Comment: social ??? Drug use: No ??? Sexual activity: Yes Partners: Male control/protection: Post-menopausal Other Topics Concern ??? Not on file Social History Narrative ??? Not on file Social Determinants of Health Financial Resource Strain: ??? Difficulty of Paying Living Expenses: Food Insecurity: ??? Worried About Running Out of Food in the Last Year: ??? Ran Out of Food in the Last Year: Transportation Needs: ??? Lack of Transportation (Medical): ??? Lack of Transportation (Non-Medical): Physical Activity: ??? Days of Exercise per Week: ??? Minutes of Exercise per Session: Stress: ??? Feeling of Stress : Social Connections: ??? Frequency of Communication with Friends and Family: ??? Frequency of Social Gatherings with Friends and Family: ??? Attends Restoration Services: ??? Active Member of Clubs or Organizations: ??? Attends Club or Organization Meetings: ??? Marital Status: Intimate Partner Violence: ??? Fear of Current or Ex-Partner: ??? Emotionally Abused: ??? Physically Abused: ??? Sexually Abused: Social History Substance and Sexual Activity Alcohol Use Yes ??? Alcohol/week: 1.0 standard drinks ??? Types: 1 Shots of liquor per week Comment: social Substance and Sexual Activity Drug Use No Social History Tobacco Use Smoking Status Never Smoker Smokeless Tobacco Never Used Cancer-related family history includes Cancer in her father and maternal grandfather; Lung cancer in her father. Family History Problem Relation Age of Onset [...] No Known Problems Sister ??? Hypertension Sister No LMP recorded (lmp unknown). Patient is postmenopausal. OB History 3 Para 3 Term 3 AB Living 3 SAB TAB Ectopic Multiple Live Births 3 Obstetric Comments [employer] history: 3 para 3, 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 No history fertility medications. She used oral contraceptives in the past. One does progesterone 08/2014. She experienced menopause approximately age 53. REVIEW OF SYSTEMS: A complete review of systems was performed, and was negative other than those mentioned above in the HPI. All other review of systems negative. VITALS SIGNS: Vitals BP 126/80 (BP Location: Left arm) Pulse 61 Temp 36.4 ??C (97.5 ??F) (Transdermal) Resp 18 Wt 62.7 kg (138 lb 3.2 oz) LMP (LMP Unknown) SpO2 97% BMI 24.48 kg/m?? PHYSICAL EXAMINATION: Performance Status: ECOG 0. Physical Exam Constitutional: Appearance: She is well-developed. HENT: Head: Normocephalic and atraumatic. Eyes: Pupils: Pupils are equal, round, and reactive to light. Neck: Thyroid: No thyromegaly. Cardiovascular: Rate and Rhythm: Normal rate and regular rhythm. Heart sounds: Normal heart sounds. No murmur. No friction rub. Pulmonary: Effort: Pulmonary effort is normal. No respiratory distress. Breath sounds: Normal breath sounds. Chest: Comments: Right breast with well-healed surgical incision without palpable abnormality, skin changes, nipple discharge, axillary adenopathy. Left breast without palpable abnormality. There is no cervical, supraclavicular infraclavicular adenopathy. Abdominal: General: Bowel sounds are normal. Palpations: Abdomen is soft. There is no mass. Musculoskeletal: General: No tenderness or deformity. Normal range of motion. Cervical back: Normal range of motion and neck supple. Skin: General: Skin is warm and dry. Neurological: Mental Status: She is alert and oriented to person, place, and time. Coordination: Coordination normal. LABORATORY: Recent Results (from the past 24 hour(s)) Vitamin D 25 hydroxy Collection Time: 07/20/20 11:04 AM Result Value Ref Range Vitamin D, 25-hydroxy 63 30 - 80 ng/mL Cancer antigen 15-3 Collection Time: 07/20/20 11:04 AM Result Value Ref Range CA 15-3 ag 10.0 0.0 - 25.0 units/mL Comprehensive metabolic panel Collection Time: 07/20/20 11:04 AM Result Value Ref Range Sodium 144 135 - 145 mmol/L Potassium, pl 4.0 3.3 - 4.9 mmol/L Chloride 104 97 - 110 mmol/L CO2 35 (H) 22 - 32 mmol/L Anion gap 5 2 - 15 mmol/L BUN 13 8 - 25 mg/dL Creatinine 0.63 0.60 - 1.10 mg/dL Glucose 80 70 - 199 mg/dL Calcium 9.8 8.5 - 10.3 mg/dL Bilirubin, total 0.3 0.1 - 1.2 mg/dL Protein, pl 6.8 6.5 - 8.5 g/dL Albumin 4.5 3.5 - 5.0 g/dL Alk phos 46 40 - 130 Units/L ALT 15 7 - 45 Units/L AST 16 10 - 45 Units/L CBC with auto differential Collection Time: 07/20/20 11:04 AM Result Value Ref Range WBC 6.3 3.8 - 9.8 K/cumm Hgb 12.8 12.1 - 15.1 g/dL Hct 38.6 36.1 - 44.3 % Plt 222 140 - 440 K/cumm MPV 7.8 6.8 - 10.4 fL RBC 3.82 (L) 3.90 - 5.00 M/cumm MCV 101.1 (H) 80.0 - 97.6 fL MCH 33.5 26.7 - 33.7 pg MCHC 33.1 32.7 - 35.5 g/dL RDW CV 15.8 (H) 11.8 - 14.6 % NRBC abs 0.00 0.00 - 0.01 K/cumm Differential, auto Collection Time: 07/20/20 11:04 AM Result Value Ref Range Neutrophil abs 4.3 1.8 - 6.6 K/cumm Lymphocyte abs 1.2 1.2 - 3.3 K/cumm Monocyte abs 0.6 0.2 - 1.2 K/cumm Eosinophil abs 0.1 0.0 - 0.5 K/cumm Basophil abs 0.0 0.0 - 0.2 K/cumm Neutrophil pct 69.5 % Lymphocyte pct 18.6 % Monocyte pct 10.3 % Eosinophil pct 1.1 % Basophil pct 0.5 % RADIOLOGY: No results found. HEALTH MAINTENANCE and RISK PREVENTION: 1. BREAST HEALTH: Bilateral screening mammogram 02/20/2020 BI-RADS 2 benign finding. Repeat mammogram due in Feb 2021, f/u with Florencia Aguirre. Continue breast self exams and to report any abnormality. 2. BONE HEALTH: DEXA 07/07/2018 normal. She was encouraged to continue calcium and vitamin D supplements. We discussed the benefits of routine weight bearing exercise. 3. COLONOSCOPY: At age 50 was normal with recommended 10 year follow-up. 4. INSULATION POWER UNIT TENDER: Yearly with Dr. Keyes. 5. WEIGHT MANAGEMENT, DIET, EXERCISE: We discussed the benefits of maintaining an ideal body weight, not only for breast cancer risk reduction, but for stroke, diabetes, hypertension and heart disease prevention. We discussed the benefits of eating a healthy diet with plenty of fresh fruits, vegetables, whole grains, and to try to limit excess carbs, fats, and sugars. 6. History of brain aneurysm: Brain MRI obtained 03/29/2018 due to double vision, followed by Dr. Chaudhari every 3 years. ASSESSMENT AND PLAN: In summary, Yesika Denney is a 60 y.o. female with history of stage I, ER positive cancer of the right breast status post breast conserving treatment in 2014. She remains without evidence of local regional recurrence. She was intolerant to adjuvant Arimidex due to an exacerbation of rheumatoid arthritis. She follows with Dr. Martinez in Rheumatology. She will continue surveillance follow-up for history of breast cancer. She will be due for her follow-up mammogram Feb. She will return in 1 yearfor re-evaluation. She was given contact numbers to call with any questions or concerns. History Covid pneumonia in Apr with residual shortness of breath and cough. Referral to pulmonary. JENNI Smith, MSN, CARD SETTER- Nurse Practitioner in Collaborative Practice with Brandy Tellez Ma, MD, PhD Thin Film Technician completed by using [employer] Fluency Direct speaking software, therefore, transcriptionvariances may occur. documented in this encounter Plan of Treatment Not on file documented as of this encounter Visit Diagnoses Diagnosis Malignant neoplasm of central portion of right breast in female, estrogen receptor positive (HCC)- Primary History of breast cancer Personal history of malignant neoplasm of breast documented in this encounter Discontinued Medications Medication Sig Discontinue Reason Start Date End Da te amLODIPine (NORVASC) 2.5 mg tablet Take 1 tablet (2.5 mg total) by mouth daily Patient Discharge 07/17/2020 07/20/2020 documented as of this encounter Additional Health Concerns Infection Onset Date Last Indicated Resolved Time COVID: Recovered Comment:Added based on recent COVID infection. 05/22/2020 05/26/2020 09/19/2020 3:05 AM C DT documented as of this encounter Care Teams Numerologist Relationship Specialty Start Date End Date Sylvia Dawson PA [address] [place] [address] PCP - General Internal Medicine 01/05/20 Erica Rodrigues MD [address] [facility] [address] [place] [address] Radiation Oncologist Radiation Oncology 10/25/18 Gasper Kaba MD [address] [facility] [address] [place] [address] Surgeon Surgical Oncology 10/25/18 Brandy Aguirre, OVER THE HORIZON TARGETING SUPERVISOR [address] [place] [address] Nurse Practitioner Certified Clinical Nurse Specialist 10/25/18 Jo-Ann Morrow, PhD [address] [place] [address] Nurse Practitioner Radiation Oncology 10/25/18 Christina Louis, ALL SOURCE ANALYST [address] [place] [address] Nurse Practitioner Medical Oncology 10/25/18 documented as of this encounter
--- OUTSIDE RECORDS SUMMARY | 2024-04-24 05:54 | XMS_ITS | Encounter Summary ---
Author Organization [facility] Address [address] [place] [address] Care Team Providers Care Dye Blender Name Role Phone Erica Rodrigues MD Unavailable Gasper Kaba MD Unavailable [phone] Brandy Aguirre CORPORATE TRAVEL CONSULTANT Unavailable [phone] Jo-Ann Morrow PhD Unavailable [phone] Christina Louis SECTION SUPERVISOR Unavailable [phone] Sylvia Dawson Primary Care Provider [phone] Encounter Details Date Type Department Care Team (Late st Contact Info) Description 08/28/2020 Telephone [facility] Family Medicine [address] [place] [address] Sylvia Dawson PA [address] [place] [address] Social History Tobacco Use Types [...] on file Legal Sex Female 3:42 AM ASSEMBLER WATCH TRAIN Gender Identity Not on file Sexual Orientation Not on file 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 on file Not on file Not on file documented as of this encounter Miscellaneous Notes * Telephone Encounter - Brandi Hernandez MA - 08/28/2020 4:09 PM CDT Release to view.- [facility] documented in this encounter Plan of Treatment Not on file documented as of this encounter Procedures Procedure Name Priority Date/Time Associated Diagnosis Comments XR CHEST PA LATERAL 2 VIEWS Schedule Routine, Read Routine (OP Routine) 08/28/2020 History of COVID-19 Pneumonia due to COVID-19 virus documented in this encounter Results * XR Chest Pa Lateral 2 Views (08/28/2020) Anatomical Region Laterality Modality Body, Chest N/A Radiographic Katty ging Sylvia JONES IMG XR PROCEDURES Final Re sult documented in this encounter Visit Diagnoses Diagnosis Pneumonia due to COVID-19 virus History of COVID-19 documented in this encounter Orders Imaging Orders Without Results Count Last Order ed Date First Ordered Date XR CHEST PA LATERAL 2 VIEWS 1 08/28/2020 documented in this encounter Additional Health Concerns Infection Onset Date Last Indicated Resolved Time COVID: Recovered Comment:Added based on recent COVID infection. 05/22/2020 05/26/2020 09/19/2020 3:05 AM C DT documented as of this encounter Care Teams Dye Blender Relationship Specialty Start Date End Date Sylvia Dawson PA [address] [place] [address] PCP - General Internal Medicine 01/05/20 Erica Rodrigues MD [address] [place] [address] Radiation Oncologist Radiation Oncology 10/25/18 Gasper Kaba MD [address] [place] [address] Surgeon Surgical Oncology 10/25/18 Brandy Aguirre, CORPORATE TRAVEL CONSULTANT [address] [place] [address] Nurse Practitioner Certified Clinical Nurse Specialist 10/25/18 Jo-Ann Morrow, PhD [address] [place] [address] Nurse Practitioner Radiation Oncology 10/25/18 Christina Louis SECTION SUPERVISOR [address] [place] [address] Nurse Practitioner Medical Oncology 10/25/18 documented as of this encounter
--- OUTSIDE RECORDS SUMMARY | 2024-04-24 05:54 | XMS_ITS | Encounter Summary ---
Author Organization [facility] Address [address] [place] [address] Care Team Providers Care Ticket Writer Name Role Phone Erica Rodrigues MD Unavailable Gasper Kaba MD Unavailable [phone] Brandy Aguirre Unavailable [phone] Jo-Ann Morrow PhD Unavailable [phone] Christina Louis LOCOMOTIVE DRIVER Unavailable [phone] Sylvia Dawson Primary Care Provider [phone] Reason for Referral * Cardiology (Routine) - Closed Specialty Diagnoses / Procedures Referred By Contac t Referred To Contact Diagnoses History of COVID-19 Procedures Transthoracic Echo Complete W Doppler/CF Renetta Bean NP [address] [place] [address] Phone: tel: fax: [facility] Referral ID Status Reason Start Date Expiration Date Visits Re quested Visits Authorized [id number] Closed 09/19/2020 10/18/2020 1 1 Encounter Details Date Type Department Care Team (Late st Contact Info) Description 08/31/2020 9:30 AM CDT Office Visit [facility] Cardiology [address] [place] [address] Renetta Bean NP [address] [address] History of COVID-19 (Primary Dx); Essential hypertension; PAT (paroxysmal atrial tachycardia) ([facility]) Social History Tobacco Use Types Packs/Day Years [...] on file Legal Sex 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 Gender Identity Not on file Sexual Orientation Not on file 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 Not on file Not on file Not on file documented as of this encounter Last Filed Vital Signs Vital Sign Reading Time Taken Comments Blood Pressure 108/60 08/31/2020 9:30 AM CDT Pulse 76 08/31/2020 9:30 AM CDT Temperature - - Respiratory Rate - - Oxygen Saturation 99% 08/31/2020 9:30 AM CDT Inhaled Oxygen Concentration - - Weight 62.6 kg (138 lb) 08/31/2020 9:30 AM CDT Height 160 cm (5' 3 ) 08/31/2020 9:30 AM CDT Body Mass Index 24.45 08/31/2020 9:30 AM CDT documented in this encounter Patient Instructions * Patient Instructions* Renetta Bean NP - 08/31/2020 9:30 AM CDT You can try splitting the lisinopril by taking 20 mg in morning and 20 mg around dinner time to seeif the blood pressure is less variable. documented in this encounter Progress Notes * Renetta Bean NP - 08/31/2020 9:30 AM CDT Images from the original note were not included. [facility] Cardiology [address] [place], [place] [id number] Date of Visit: 08/31/2020 Patient ID: Yesika Denney 1960 Chief Complaint: Yesika Denney is a 60 y.o. female who is an established patient of Dr. De León with a historyof paroxysmal atrial tachycardia coming to the office to discuss blood pressure fluctuation. History of Present Illness: Yesika Denney is a 60 y.o. female [...] her to Atenolol between appointment and today. 03/13/[address] De León: She returns to the office today for scheduled nyd-vlrztakzxkt-pw. Looks a during her last appointment her lisinopril dosage was increased for more blood pressure control. She is doing extremely well and does not have any cardiovascular symptoms or concerns. Her blood pressure looks excellent today. 08/31/2020 office visit with LOCOMOTIVE DRIVER: After her last office visit with Dr. De León, she saw Dr. Thompson in referral for her PAT. She had a mobile personnel monitor placed and was given the option of flecainide but decided to remain on atenolol. She developed COVID pneumonia in late April in into May and was hospitalized for a week at [facility]. After this she was having more frequent tachycardia so her atenolol was temporarily increased to 75 mg daily but she has since gone back to 50 mg daily and the tachycardia has settled down. She has also noticed she has had more labile blood pressure readings since her illness with COVID. High readings can be a little over 140/90 and low readings can be 90/60. Higher readings tend to happen more in the evening. She wants to know if there is something she could do to have more consistent control of the hypertension. She has also been noticing some forgetfulness and wonders if this could be a side effect of the atenolol. Her PCP has also referred her to pulmonology for further assessment of her pulmonary status after the COVID pneumonia. She states she had a chest x-ray repeated this week which commented on ???hyperinflation?? of the lungs. She also wonders if she could have any cardiac damage from the COVID. Records that I personally reviewed on the day of this visit include: (the interpretation is outlined in the HPI above) 03/13/[address] De León, 03/28/[address] Thompson, subsequent telephone notes in [facility] I have also reviewed: allergies, current medications, past family history, past medical history, past social history, past surgical history and problem list Review of Systems Constitutional: Negative for diaphoresis, fever, malaise/fatigue, weight gain and weight loss. HENT: Negative for hearing loss. Eyes: Negative for visual disturbance. Cardiovascular: Negative for chest pain, claudication, dyspnea on exertion, leg swelling, orthopnea, palpitations, paroxysmal nocturnal dyspnea and syncope. Respiratory: Positive for cough (Secondary to COVID). Negative for hemoptysis, shortness of breath,snoring and wheezing. Hematologic/Lymphatic: Does not bruise/bleed easily. Skin: Negative for poor wound healing and rash. Musculoskeletal: Negative for joint pain and myalgias. Gastrointestinal: Negative for heartburn, nausea and vomiting. Genitourinary: Negative for hematuria. Neurological: Positive for headaches. Negative for dizziness and light-headedness. Psychiatric/Behavioral: Positive for memory loss. Negative for depression. The patient is not nervous/anxious. Vital Signs: BP 108/60 Pulse 76 Ht 160 cm (5' 3 ) Wt 62.6 kg (138 lb) LMP (LMP Unknown) SpO2 99% BMI24.45 kg/m?? Physical Exam Constitutional: General: She is not in acute distress. Appearance: She is well-developed. HENT: Head: Normocephalic and atraumatic. Nose: Nose normal. Eyes: General: No scleral icterus. Conjunctiva/sclera: Conjunctivae normal. Pupils: Pupils are equal, round, and reactive to light. Neck: Vascular: No JVD. Trachea: No tracheal deviation. Cardiovascular: Rate and Rhythm: Normal rate and regular rhythm. Heart sounds: Normal heart sounds. No murmur heard. Pulmonary: Effort: Pulmonary effort is normal. No respiratory distress. Breath sounds: Normal breath sounds. Abdominal: General: Bowel sounds are normal. Palpations: Abdomen is soft. Tenderness: There is no abdominal tenderness. Musculoskeletal: Cervical back: Normal range of motion. Skin: General: Skin is warm and dry. Neurological: Mental Status: She is alert and oriented to person, place, and time. Allergies Allergen Reactions ??? Adhesive Hives ??? Adhesive Tape-Silicones Rash ??? Cyclizine Other (See comments) and Hallucinations Reaction: Urinary retention Current Outpatient Medications: ??? albuterol HFA (ProAir [...] ), Disp: 90 tablet, Rfl: 3 ??? muzjsumuxa-fdnfhmtoawplo-evqrwowe-codeine (FIORICET WITH CODEINE) [id number] mg per capsule, Take 1 capsule by mouth every 4 (four) hours as needed for headaches, Disp: 20 capsule, Rfl: 0 ??? FLUoxetine [...] by mouth daily, Disp: 90 tablet, Rfl: 0 ??? methotrexate 2.5 mg tablet, Take 8 tablets (20 mg total) by mouth once a week (Patient taking differently: Take 20 mg by mouth once a week Take 6 tablets by mouth once a week), Disp: 96 tablet, Rfl: 1 ??? predniSONE (DELTASONE) 10 mg tablet, , Disp: , Rfl: ??? sulfaSALAzine EN (AZULFIDINE EN) 500 mg EC tablet, Take 1 tablet (500 mg total) by mouth daily,Disp: 90 tablet, Rfl: 0 ??? valACYclovir (Valtrex) 500 mg tablet, Take 1 tablet (500 mg total) by mouth daily, Disp: 90 tablet, Rfl: 2 Lab Results Component Value Date POTASSIUM 4.0 07/20/2020 BUNSER 11 08/28/2020 CREATININE 0.77 08/28/2020 CHOL 272 (H) 08/28/2020 TRIG 83 08/28/2020 LDLCALC 168 (H) 08/28/2020 HDL 90 08/28/2020 Assessment: Diagnoses and all orders for this visit: History of COVID-19 (Primary) - Transthoracic Echo Complete W Doppler/CF; Future Essential hypertension PAT (paroxysmal atrial tachycardia) ([facility]) Plan/Recommendations: She was hospitalized with COVID pneumonia in late April to early May. She still has ongoing fatigue and cough and is in the process of being referred to pulmonology. She would like to reassessher cardiac status after this event. She is not exhibiting any signs or symptoms of decompensated heart failure that because of her recent COVID illness it would be reasonable to perform a new echocardiogram. This can be performed in our office at her convenience. She is noticing labile blood pressure readings that tends to be more high in the evening. I suggested she could try splitting her lisinopril and take 20 mg in the morning and 20 mg around dinner timeto see if she gets more even control. She agrees to try this. PAT appears quiescent with atenolol. She has noticed some mild memory issues and wonders if this could be a side effect of the atenolol. I explained to her that I am hesitant to make any changes withthis because it seems to be working well for her. She agrees to observe longer and therefore I willschedule her for follow-up with Dr. De León in a shorter interval said if she continues to suspect this memory issues medication side effect, she could discuss an alternative with him in 3 months time. Otherwise, she will call the office later her to cancel that appointment and keep the previously scheduled appointment for March. Renetta Bean ANP-BC Nurse Practitioner with [facility] Cardiology This note is dictated and transcribed using [employer]. Hog Stomach Preparer variancesmay occur. Despite proofreading, typographical errors may occur. documented in this encounter Plan of Treatment Not on file documented as of this encounter Results * TRANSTHORACIC ECHO (TTE) COMPLETE W DOPPLER/CF WO CONTRAST (09/20/2020 9:10 AM CDT) Anatomical Region Laterality Modality Ultrasound 09/20/2020 8:09 AM CDT Narrative 09/20/2020 5:15 PM CDT [facility] Cardiology [address], [place] [address] [address] [facility] [address] [facility] [address], [place] [address] P:[phone] P:[phone] Echocardiographic Report Patient Name: YESIKA DENNEY : 1960 Study Date: 09/20/2020 8:09:09 AM Gender: F Tech: Location: [place] Ref.Provider: SELIN Height(Cm): 160 BSA: 1.65 Weight(Kg): 62.6 Heart Rate: 58 BP: 127/68 Quality: Good Order Provider: RENETTA BEAN Procedures: Echocardiographic Report: Transthoracic [...] Findings: Interpretation Site: Exam was interpreted at [facility]. Left Ventricle: Normal left ventricular systolic function. [...] Electronically Signed By: Harpal De León MD, [facility] 2020-09-20 17:15:32 CDT Procedure Note Harpal De León MD - 09/20/2020 [facility] Cardiology [address], [place] [address], [place] [address] P:[phone] P:[phone] Echocardiographic Report Patient Name: YESIKA DENNEYPatient ID: [id number] : [id number] Date: 09/20/2020 8:09:09 AM Gender: FAccession #: [id number] Tech: GMLocation: [place] Ref.Provider: LIBIAGANSatinderight(Cm): 160 BSA: 1.65Weight(Kg): 62.6 Heart Rate: 58BP: [...] 16.00 - 28.00 ] cc/m2 MV Decel Xxut707 [ 150 - 200 ] msec ACS MM 1.93 cm PV Peak Vel0.84 [ 0.40 - 0.80 ] m/s TR Peak Vel2.45 [ 0.40 - 0.80 ] m/s TR Peak PG 24mmHg RVSP32.00 mmHg E'0.08 E/E' 9 Findings: Interpretation Site: Exam was interpreted at [facility]. Left Ventricle: Normal left ventricular systolic function. [...] Electronically Signed By: Harpal De León MD, [facility] 2020-09-20 17:15:32 CDT Renetta Bean NP CV ECHO PROCEDURES Final Result documented in this encounter Visit Diagnoses Diagnosis History of COVID-19- Primary Essential hypertension Unspecified essential hypertension PAT (paroxysmal atrial tachycardia) (HCC) Paroxysmal supraventricular tachycardia History of COVID-19 documented in this encounter Additional Health Concerns Infection Onset Date Last Indicated Resolved Time COVID: Recovered Comment:Added based on recent COVID infection. 05/22/2020 05/26/2020 09/19/2020 3:05 AM C DT documented as of this encounter Care Teams Ticket Writer Relationship Specialty Start Date End Date Sylvia Dawson PA [address] [place] [address] PCP - General Internal Medicine 01/05/20 Erica Rodrigues MD [address] [facility] [address] [place] [address] Radiation Oncologist Radiation Oncology 10/25/18 Gasper Kaba MD [address] [facility] [address] [place] [address] Surgeon Surgical Oncology 10/25/18 Brandy Aguirre, FOOD AND NUTRITION SERVICES ASSISTANT [address] [facility] [address] [place] [address] Nurse Practitioner Certified Clinical Nurse Specialist 10/25/18 Jo-Ann Morrow, PhD [address] [facility] [address] [place] [address] Nurse Practitioner Radiation Oncology 10/25/18 Christina Louis, LOCOMOTIVE DRIVER [address] [facility] [address] [place] [address] Nurse Practitioner Medical Oncology 10/25/18 documented as of this encounter
--- OUTSIDE RECORDS SUMMARY | 2024-04-24 05:54 | XMS_ITS | Encounter Summary ---
Author Organization [facility] Address [address] [place] [address] Care Team Providers Care Wedger And Gluer Name Role Phone Erica Rodrigues MD Unavailable Gasper Kaba MD Unavailable Brandy Aguirre TOOL CLERK Unavailable [phone] Jo-Ann Morrow PhD Unavailable [phone] Christina Louis HEALTH PROGRAM ANALYST Unavailable [phone] Sylvia Dawson Primary Care Provider [phone] Reason for Visit * Reason Comments Cough Fever Encounter Details Date Type Department Care Team (Late st Contact Info) Description 06/11/2020 9:30 AM OUTPATIENT RECEPTIONIST Telemedicine [facility] Family Medicine [address] [facility] [address] [place] [phone] Jennyfer Christina PA [facility] [place] [address] Tachycardia (Primary Dx); Cough; Fever, unspecified fever cause; Pneumonia due to COVID-19 virus Social History Tobacco Use Types Packs/Day Years [...] on file Legal Sex Female 3:42 AM OUTPATIENT RECEPTIONIST Gender Identity Not on file Sexual Orientation Not on file 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 Chief Complaint Cough and Fever HPI Here for cough and fever. Notes that she was diagnosed with covid 19 on 05/06/20. She ended up at [facility] 10 days later and stayed for a week due to covid pneumonia. She notes that she was sent home with zpack and dexamethasone. Notes that she had a subsequent hypotension. Was in the 70/50s, quit her lisinopril. Saw sylvia last week and her atenolol was decreased to 25mg daily due to the hypotension. She notes that she's been having tachycardia with ambulation and wanting to increase back to 50mg qd. Yesterday started feeling run down again. Cough returning. tmax 99.7. Normal body temp 97.3 No wheezing. Not labored breathing. This was a telemedicine visit with Yesika Denney alone which took place via real-time video connection with [employer]. During the visit, I was located in the office and the patient was located at home in the state of [place]. The patient visit started at 1026 and ended at 1036. My total encounter timeon 06/11/2020 was 10 minutes which was spent in the activities documented in the note. This includes time spent prior to the visit and after the visit in direct care of the patient. This time does not include time spent in any separately reportable services.. The patient has been informed that the visit may not be secure and acknowledged the information. I have explained the option of participating in a telephone or video visit during [facility] to the patient. After being given an opportunity to ask questions about and discuss this type of visit, the patient verbally consented to proceeding with the telephone/video visit.The patient understands that this service replaces an office visit and they may be billed and/or responsible for any applicable copayments. Allergies as of 06/11/2020 - Reviewed 06/11/2020 Allergen Reaction Noted ??? Adhesive Hives ??? Adhesive tape-silicones Rash 12/07/2014 ??? Cyclizine Other (See comments) and Hallucinations 09/04/2010 Outpatient Encounter Medications as of 06/11/2020 Medication Sig Dispense Refill ??? albuterol HFA (ProAir HFA) 90 mcg/actuation inhaler Inhale 2 puffs every 4 (four) hours as needed for wheezing or shortness of breath 8.5 g 0 ??? aspirin 81 mg enteric coated tablet Take 81 mg by mouth 2 (two) times a week ??? FLUoxetine (PROzac) 20 mg capsule Take 1 capsule (20 mg total) by mouth daily 90 capsule 1 ??? hydrOXYchloroQUINE (PLAQUENIL) 200 mg tablet Take 1 tablet (200 mg total) by mouth daily 90 tablet 2 ??? lisinopriL (PRINIVIL,ZESTRIL) 40 mg tablet Take 1 tablet (40 mg total) by mouth daily 90 tablet2 ??? methotrexate 2.5 mg tablet Take 8 [...] by mouth daily 90 tablet 2 ??? [DISCONTINUED] atenoloL (TENORMIN) 25 mg tablet Take 1 tablet (25 mg total) by mouth daily Cancel the 50mg Rx to avoid duplicate therapy 30 tablet 1 ??? atenoloL (TENORMIN) 50 mg tablet Take 1 tablet (50 mg total) by mouth daily 90 tablet 1 ??? folic acid (FOLVITE) 1 mg tablet Take 2 tablets (2 mg total) by mouth daily 180 tablet 3 No facility-administered encounter medications on file as of 06/11/2020. Review of Systems Constitutional: Positive for fatigue and fever. Negative for unexpected weight change. HENT: Negative for congestion. Respiratory: Positive for cough. Negative for chest tightness, shortness of breath, wheezing and stridor. Cardiovascular: Negative for chest pain and palpitations. Gastrointestinal: Negative for abdominal pain. Genitourinary: Negative for difficulty urinating and dysuria. Musculoskeletal: Negative for arthralgias and back pain. Skin: Negative for color change. Neurological: Negative for dizziness. Hematological: Does not bruise/bleed easily. Psychiatric/Behavioral: Negative for confusion. The patient is not nervous/anxious. There were no vitals filed for this visit. Physical Exam Vitals and nursing note reviewed. Constitutional: General: She is not in acute distress. Appearance: Normal appearance. She is not ill-appearing, toxic-appearing or diaphoretic. HENT: Head: Normocephalic and atraumatic. Pulmonary: Effort: Pulmonary effort is normal. Breath sounds: Normal breath sounds. Neurological: General: No focal deficit present. Mental Status: She is alert and oriented to person, place, and time. Psychiatric: Mood and Affect: Mood normal. Behavior: Behavior normal. Thought Content: Thought content normal. Assessment/Plan Diagnoses and all orders for this visit: Tachycardia (Primary) Assessment & Plan: Patient directed to er for further evaluation and treatment. to drive. Cough Assessment & Plan: Patient directed to er for further evaluation and treatment. to drive. Fever, unspecified fever cause Assessment & Plan: Patient directed to er for further evaluation and treatment. to drive. Pneumonia due to COVID-19 virus Assessment & Plan: Patient directed to er for further evaluation and treatment. to drive. Other orders - atenoloL (TENORMIN) 50 mg tablet; Take 1 tablet (50 mg total) by mouth daily Orders Placed This Encounter ??? atenoloL (TENORMIN) 50 mg tablet Sig: Take 1 tablet (50 mg total) by mouth daily Dispense: 90 tablet Refill: 1 KAREN Gmoez Cosigned by Mark Gonzalez MD at 06/11/2020 12:26 PM OUTPATIENT RECEPTIONIST ATIENT RECEPTIONIST ATIENT RECEPTIONIST documented in this encounter Miscellaneous Notes * Assessment & Plan Note - Jennyfer Martinez PA - 06/11/2020 11:25 AM OUTPATIENT RECEPTIONIST Associated Problem(s): Cough Patient directed to er for further evaluation and treatment. to drive. ATIENT RECEPTIONIST * Assessment & Plan Note - Jennyfer Martinez PA - 06/11/2020 11:25 AM OUTPATIENT RECEPTIONIST Associated Problem(s): Tachycardia Patient directed to er for further evaluation and treatment. to drive. ATIENT RECEPTIONIST * Assessment & Plan Note - Jennyfer Martinez PA - 06/11/2020 11:24 AM OUTPATIENT RECEPTIONIST Associated Problem(s): Pneumonia due to COVID-19 virus (Resolved 08/26/2021) Patient directed to er for further evaluation and treatment. to drive. ATIENT RECEPTIONIST * Assessment & Plan Note - Jennyfer Martinez PA - 06/11/2020 11:24 AM OUTPATIENT RECEPTIONIST Associated Problem(s): Fever (Resolved 03/01/2022) Patient directed to er for further evaluation and treatment. to drive. ATIENT RECEPTIONIST documented in this encounter Plan of Treatment Not on file documented as of this encounter Visit Diagnoses Diagnosis Tachycardia- Primary Unspecified tachycardia Cough Fever, unspecified fever cause Pneumonia due to COVID-19 virus documented in this encounter Discontinued Medications Medication Sig Discontinue Reason Start Date End Da te atenoloL (TENORMIN) 25 mg tablet Take 1 tablet (25 mg total) by mouth daily Cancel the 50mg Rx to avoid duplicate therapy 06/04/2020 06/11/2020 documented as of this encounter Additional Health Concerns Infection Onset Date Last Indicated Resolved Time COVID: Recovered Comment:Added based on recent COVID infection. 05/22/2020 05/26/2020 09/19/2020 3:05 AM C DT documented as of this encounter Care Teams Wedger And Gluer Relationship Specialty Start Date End Date Sylvia Dawson PA [address] [address] PCP - General Internal Medicine 01/05/20 Erica Rodrigues MD [address] [address] Radiation Oncologist Radiation Oncology 10/25/18 Gasper Kaba MD [address] [facility] [address] [place] [address] Surgeon Surgical Oncology 10/25/18 Brandy Aguirre, TOOL CLERK [address] [address] Nurse Practitioner Certified Clinical Nurse Specialist 10/25/18 Jo-Ann Morrow, PhD [address] [facility] [address] [place] [address] Nurse Practitioner Radiation Oncology 10/25/18 Christina Louis HEALTH PROGRAM ANALYST [address] [facility] [address] [place] [address] Nurse Practitioner Medical Oncology 10/25/18 documented as of this encounter
--- OUTSIDE RECORDS SUMMARY | 2024-04-24 05:54 | XMS_ITS | Encounter Summary ---
Author Organization [facility] Address [address] [place] [address] Care Team Providers Care Keyboarding Clerk Name Role Phone Erica Rodrigues MD Unavailable Gasper Kaba MD Unavailable Brandy Aguirre [address] Unavailable [phone] Jo-Ann Morrow PhD Unavailable [phone] Christina Louis SALESPERSON [employer] Unavailable Sylvia Dawson Primary Care Provider [phone] Encounter Details Date Type Department Care Team (Late st Contact Info) Description 01/17/2021 Telephone [facility] Family Medicine [address] [place] [address] Sylvia Dawson PA [address] [place] [address] Social History Tobacco Use Types [...] on file Legal Sex Female 3:42 AM HAND POLISHER Gender Identity Not on file Sexual Orientation Not on file 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 * Telephone Encounter - Sylvia Dawson PA - 01/17/2021 9:48 AM CDT Yes, please order at lab of her choice Lipids - HLD CMP - HLD TSH- fatigue Thanks. * Telephone Encounter - Brandi Hernandez MA - 01/17/2021 8:50 AM CDT Pt is requesting an order for labs to be drawn. State it been a while sent she had route labs drawn. documented in this encounter Plan of Treatment Not on file documented as of this encounter Visit Diagnoses Not on filedocumented in this encounter Care Teams Keyboarding Clerk Relationship Specialty Start Date End Date Sylvia Dawson PA [address] [facility] [address] [place] [address] PCP - General Internal Medicine 01/05/20 Erica Rodrigues MD [address] [facility] [address] [place] [address] Radiation Oncologist Radiation Oncology 10/25/18 Gasper Kaba MD [address] [facility] [address] [place] [address] Surgeon Surgical Oncology 10/25/18 Brandy Aguirre CNS [address] LL [facility] [address] [place] [address] Nurse Practitioner Certified Clinical Nurse Specialist 10/25/18 Jo-Ann Morrow, PhD [address] LL [facility] [address] [place] [address] Nurse Practitioner Radiation Oncology 10/25/18 Christina Louis SALESPERSON [employer] [address] LL [facility] [address] [place] [address] Nurse Practitioner Medical Oncology 10/25/18 documented as of this encounter
--- OUTSIDE RECORDS SUMMARY | 2024-04-24 05:54 | XMS_ITS | Encounter Summary ---
Author Organization [facility] Address [address] [place] [address] Phone Care Team Providers Care Coding Compliance Auditor Name Role Phone Erica Rodrigues MD Unavailable Gasper Kaba MD Unavailable [phone] Brandy Aguirre LAUNDRY HELPER Unavailable [phone] Jo-Ann Morrow PhD Unavailable Christina Louis FLOAT NURSE Unavailable [phone] Sylvia Dawson Primary Care Provider [phone] Encounter Details Date Type Department Care Team (Late st Contact Info) Description 04/18/2021 3:40 PM OPTOMETRY ASSISTANT Lab 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 file Not on file Not on file documented as of this encounter Plan of Treatment Not on file documented as of this encounter Procedures Procedure Name Priority Date/Time Associated Diagnosis Comments CBC WITH AUTO DIFFERENTIAL Routine 04/18/2021 3:39 PM OPTOMETRY ASSISTANT Rheumatoid arthritis with negative rheumatoid factor, involving unspecified site (HCC) High risk medication use LIPID PANEL Routine 04/18/2021 3:39 PM OPTOMETRY ASSISTANT Rheumatoid arthritis with negative rheumatoid factor, involving unspecified site (HCC) High risk medication use Mixed hyperlipidemia COMPREHENSIVE METABOLIC PANEL Routine 04/18/2021 3:39 PM OPTOMETRY ASSISTANT Rheumatoid arthritis with negative rheumatoid factor, involving unspecified site (HCC) High risk medication use documented in this encounter Results * (ABNORMAL) CBC with auto differential (04/18/2021 3:39 PM OPTOMETRY ASSISTANT) White Blood Count 6.5 3.6 - 11.2 [...] [facility] Blood specimen (specimen) 04/18/2021 3:39 PM OPTOMETRY ASSISTANT 04/18/2021 3:55 PM OPTOMETRY ASSISTANT us Patricia Martinez MD LAB BLOOD ORDERABLES Final R esult [facility] * (ABNORMAL) Comprehensive metabolic panel (04/18/2021 3:39 PM OPTOMETRY ASSISTANT) Total Protein 6.9 6.1 - 8.4 g/dL [...] 02/25/21. Blood specimen (specimen) 04/18/2021 3:39 PM OPTOMETRY ASSISTANT 04/18/2021 3:55 PM OPTOMETRY ASSISTANT us Patricia Martinez MD LAB BLOOD ORDERABLES Final R esult [facility] * (ABNORMAL) Lipid panel (04/18/2021 3:39 PM OPTOMETRY ASSISTANT) Triglycerides 120 <150 mg/dL [facility] [...] therapy. Blood specimen (specimen) 04/18/2021 3:39 PM OPTOMETRY ASSISTANT 04/18/2021 3:55 PM OPTOMETRY ASSISTANT Narrative [facility] - 04/18/2021 4:34 PM OPTOMETRY ASSISTANT Current interpretive data was last updated March [...] hyperlipidemia documented in this encounter Care Teams Coding Compliance Auditor Relationship Specialty Start Date End Date Sylvia Dawson PA [address] [place] [address] PCP - General Internal Medicine 01/05/20 Erica Rodrigues MD [address] LL [facility] [address] [place] [address] Radiation Oncologist Radiation Oncology 10/25/18 Gasper Kaba MD [address] LL [facility] [address] [place] [address] Surgeon Surgical Oncology 10/25/18 Brandy Aguirre, LAUNDRY HELPER [address] LL [facility] [address] [place] [address] Nurse Practitioner Certified Clinical Nurse Specialist 10/25/18 Jo-Ann Morrow, PhD [address] LL [facility] [address] [place] [address] Nurse Practitioner Radiation Oncology 10/25/18 Christina Louis, FLOAT NURSE [address] LL [facility] [address] [place] [address] Nurse Practitioner Medical Oncology 10/25/18 documented as of this encounter
--- OUTSIDE RECORDS SUMMARY | 2024-04-24 05:54 | XMS_ITS | Encounter Summary ---
Author Organization [facility] Address [address] [place] [address] Care Team Providers Care Marine Rigger Name Role Phone Erica Rodrigues MD Unavailable Gasper Kaba MD Unavailable Brandy Aguirre Unavailable Jo-Ann Morrow PhD Unavailable [phone] Christina Louis AGRICULTURE INSTRUCTOR Unavailable [phone] Sylvia Dawson Primary Care Provider [phone] Reason for Referral * Diagnostic Imaging (Routine) - Closed Specialty Diagnoses / Procedures Referred By Niranjan farrell Referred To Contact Diagnoses Encounter for screening mammogram for malignant neoplasm of breast Procedures Screening Mammogram Bilateral W Marcelo Screening Mammogram, Self [address] [address] Referral ID Status Reason Start Date Expiration Date Visits Re quested Visits Authorized [id number] Closed 02/11/2021 03/13/2022 1 1 OR DATA WAREHOUSE ARCHITECT Reason for Visit * Diagnostic Imaging (Routine) - Closed Specialty Diagnoses / Procedures Referred By Niranjan farrell Referred To Contact Diagnoses Encounter for screening mammogram for malignant neoplasm of breast Procedures Screening Mammogram Bilateral W Marcelo Screening Mammogram, Self [address] [address] Referral ID Status Reason Start Date Expiration Date Visits Re quested Visits Authorized [id number] Closed 02/11/2021 03/13/2022 1 1 Encounter Details Date Type Department Care Team (Latest Contact Info) Description 03/02/2021 10:17 AM SENIOR DATA WAREHOUSE ARCHITECT - 03/02/2021 11:59 PM SENIOR DATA WAREHOUSE ARCHITECT Hospital Encounter [facility] [address] [place] [address] Screening Mammogram, Self Encounter for screening mammogram for malignant neoplasm of breast Discharge Disposition: Discharge to home or self [...] file Legal Sex Female 3:42 AM SENIOR DATA WAREHOUSE ARCHITECT Gender Identity Not on file Sexual Orientation Not on file 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 90 tablet 3 07/18/2020 1 butalbital-acetam inophen-caffeine- codeine (FIORICET WITH CODEINE) 40-055-25-30 mg per capsuleIndication s:Migraine with aura and with status migrainosus, not intractable TAKE 1 CAPSULE BY MOUTH EVERY 4 HOURS NEEDED FOR HEADACHES 20 capsule 11/02/2020 1 FLUoxetine (PROzac) 20 mg capsuleIndication s:Stress,Recurren t major depressive disorder, remission status unspecified (HCC) Take 1 capsule (20 mg total) by mouth daily 90 capsule 1 02/26/2021 2 folic acid (FOLVITE) 1 mg tablet Take 2 tablets (2 mg total) by mouth daily 180 tablet 3 03/19/2020 1 hydrOXYchloroQUIN E (PLAQUENIL) 200 mg tablet TAKE 1 TABLET DAILY 90 tablet 2 12/31/2020 2 lisinopriL (PRINIVIL,ZESTRIL ) 40 mg tabletIndications :Hypertension, essential Take 1 tablet (40 mg total) by mouth daily 90 tablet 1 02/26/2021 2 methotrexate 2.5 mg tabletIndications :autoimmune disease Take 6 tablets (15 mg total) by mouth once a week 72 tablet 1 09/20/2020 1 predniSONE (DELTASONE) 10 mg tablet 11/10/2019 2 sulfaSALAzine EN (AZULFIDINE EN) 500 mg EC tablet Take 2 tablets (1,000 mg total) by mouth daily 180 tablet 1 01/21/2021 2 valACYclovir (Valtrex) 500 mg tabletIndications :Recurrent [...] MARCELO Schedule Routine, Read Routine (OP Routine) 03/02/2021 10:50 AM SENIOR DATA WAREHOUSE ARCHITECT Encounter for screening mammogram for malignant neoplasm of breast documented in this encounter Results * Screening Mammogram Bilateral W Marcelo (03/02/2021 10:50 AM SENIOR DATA WAREHOUSE ARCHITECT) Anatomical Region Laterality Modality Breast Bilateral Mammography 03/04/2021 8:26 AM SENIOR DATA WAREHOUSE ARCHITECT Impressions 03/04/2021 8:26 AM SENIOR DATA WAREHOUSE ARCHITECT There is no mammographic evidence of malignancy. A 1 year screening mammogram is recommended. BI-RADS: 2 - Benign. The patient has been or will be contacted. The patient will be entered into a reminder system with a target due date of 1 year for her next mammogram. Electronically signed by: Hudson Dotson M.D. Narrative 03/04/2021 8:26 AM SENIOR DATA WAREHOUSE ARCHITECT EXAMINATION: SCREENING MAMMOGRAM BILATERAL W MARCELO ORDERING HEALTHCARE PROVIDER: SELF SCREENING MAMMOGRAM HISTORY: Routine screening mammography. ??Personal history of right breast cancer status post conservation therapy. ?? COMPARISON: ??02/20/2020, 01/18/2019, 02/09/2018, 12/03/2016 TECHNIQUE: CC and MLO views of the bilateral breasts were obtained with digital technique using breast tomosynthesis with C view. Computer aided detection was utilized. FINDINGS: DENSITY: The tissue of the bilateral breasts is heterogeneously dense, which may obscure small masses. BREASTS: There are postsurgical changes of right breast lumpectomy. There are no suspicious masses, suspicious calcifications, or other suspicious findings in either breast. There has been no suspicious interval change. us Self Screening Mammogram IMG MAMMO PROCEDURES Fi nal Result documented in this encounter Visit Diagnoses Diagnosis Encounter for screening mammogram for malignant neoplasm of breast documented in this encounter Care Teams Marine Rigger Relationship Specialty Start Date End Date Sylvia Dawson PA [address] [place] [address] PCP - General Internal Medicine 01/05/20 Erica Rodrigues MD [address] [facility] [address] [place] [address] Radiation Oncologist Radiation Oncology 10/25/18 Gasper Kaba MD [address] [place] [address] Surgeon Surgical Oncology 10/25/18 Brandy Aguirre CNS [address] [place] [address] Nurse Practitioner Certified Clinical Nurse Specialist 10/25/18 Jo-Ann Morrow, PhD [address] [place] [address] Nurse Practitioner Radiation Oncology 10/25/18 Christina Louis AGRICULTURE INSTRUCTOR [address] [place] [address] Nurse Practitioner Medical Oncology 10/25/18 documented as of this encounter
--- OUTSIDE RECORDS SUMMARY | 2024-04-24 05:54 | XMS_ITS | Encounter Summary ---
Author Organization [facility] Address [address] [place] [address] Care Team Providers Care Ambulette Driver Name Role Phone Erica Rodrigues MD Unavailable Gasper Kaba MD Unavailable Brandy Aguirre SOFTWARE CLIENT ARCHITECT Unavailable [phone] Jo-Ann Morrow PhD Unavailable [phone] Christina Louis LEAD NURSE Unavailable [phone] Danii Dawson Primary Care Provider [phone] Encounter Details Date Type Department Care Team (Late st Contact Info) Description 08/28/2020 Orders Only [facility] Family Medicine [address] [place] [address] Danii Dawson PA [address] [place] [address] Elevated MCV (Primary Dx) Social History Tobacco [...] on file Legal Sex Female 3:42 AM SINGING WAITER OR WAITRESS Gender Identity Not on file Sexual Orientation Not on file 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 file Not on file Not on file documented as of this encounter Miscellaneous Notes * Addendum Note - Danii Dawson PA - 08/28/2020 11:59 PM CDTAddended by: DANII DAWSON on: 08/29/2020 07:14 AM Modules accepted: Orders documented in this encounter Plan of Treatment Not on file documented as of this encounter Procedures Procedure Name Priority Date/Time Associated Diagnosis Comments TSH Routine 01/18/2021 11:39 AM CDT FOLATE Routine 01/18/2021 11:39 AM CDT Elevated MCV VITAMIN B12 Routine 01/18/2021 11:39 AM CDT Elevated MCV LIPID PANEL Routine 01/18/2021 11:39 AM CDT CBC WITH AUTO DIFFERENTIAL Routine 08/28/2020 9:27 AM CDT TSH Routine 08/28/2020 9:27 AM CDT LIPID PANEL Routine 08/28/2020 9:27 AM CDT COMPREHENSIVE METABOLIC PANEL Routine 08/28/2020 9:27 AM CDT documented in this encounter Results * TSH (01/18/2021 11:39 AM CDT) TSH 2.100 0.450 - 4.500 uIU/mL [facility] - 01 01/18/2021 11:3 9 AM CDT 01/18/2021 Narrative [facility] - 01/19/2021 4:09 PM CDT Performed at: ??01 - [address] ??[id number] Synchro Assembler: John Lozoya PhD, Phone: ??[phone] Danii JONES LAB BLOOD ORDERABLES Final Result Performing Organization Address [facility] de Phone Number [facility] - 01 * (ABNORMAL) Lipid panel (01/18/2021 11:39 AM CDT) Cholesterol 331(H) 100 - 199 mg/dL [facility] - 01 Triglycerides 149 0 - 149 mg/dL [facility] - 01 HDL Cholesterol 101 >39 mg/dL [facility] - 01 VLDL 26 5 - 40 mg/dL [facility] - 01 LDL, calculated 204(H) 0 - 99 mg/dL [facility] - 01 01/18/2021 11:3 9 AM CDT 01/18/2021 Narrative [facility] - 01/19/2021 4:09 PM CDT Performed at: ??[address] ??[id number] Synchro Assembler: John Lozoya PhD, Phone: ??[phone] Danii JONES LAB BLOOD ORDERABLES Final Result Performing Organization Address [facility] de Phone Number [facility] - 01 * Folate (01/18/2021 11:39 AM CDT) Folate >20.0 >3.0 ng/mL [facility] - 01 Comment: A serum folate concentration of less than 3.1 ng/mL is considered to represent clinical deficiency. Blood specimen (specimen) 01/18/2021 11:39 AM CDT 01/18/2021 Narrative [facility] - 01/19/2021 4:09 PM CDT Performed at: ??01 - [facility] ??[id number] Synchro Assembler: John Lozoya PhD, Phone: ??[phone] Result [facility] Danii JONES LAB BLOOD ORDERABLES Final Result Performing Organization Address [facility] de Phone Number [facility] - 01 * Vitamin B12 (01/18/2021 11:39 AM CDT) Pathologist [facility] Vitamin B12 607 232 - 1,245 pg/mL [facility] - 01 Blood specimen (specimen) 01/18/2021 11:39 AM CDT 01/18/2021 Narrative [facility] - 01/19/2021 4:09 PM CDT Performed at: ?? [address] ??[id number] Synchro Assembler: John Lozoya PhD, Phone: ??[phone] Result [facility] Danii JONES LAB BLOOD ORDERABLES Final Result Performing Organization Address [facility] de Phone Number [facility] - 01 * TSH (08/28/2020 9:27 AM CDT) Pathologist [facility] TSH 2.440 0.450 - 4.500 uIU/mL [facility] - 01 08/28/2020 9:27 AM CDT 08/28/2020 Narrative [facility] - 08/29/2020 7:36 AM CDT Performed at: ??01 - [address] ??[id number] Synchro Assembler: John Lozoya PhD, Phone: ??[phone] Result [facility] Danii JONES LAB BLOOD ORDERABLES Final Result Performing Organization Address [facility] de Phone Number [facility] - 01 * (ABNORMAL) Lipid panel (08/28/2020 9:27 AM CDT) Cholesterol 272(H) 100 - 199 mg/dL [facility] - 01 Triglycerides 83 0 - 149 mg/dL [facility] - 01 HDL Cholesterol 90 >39 mg/dL [facility] - 01 VLDL 14 5 - 40 mg/dL [facility] - 01 LDL, calculated 168(H) 0 - 99 mg/dL [facility] - 01 08/28/2020 9:27 AM CDT 08/28/2020 Narrative [facility] - 08/29/2020 7:36 AM CDT Performed at: ?? - [facility] ??[id number] Synchro Assembler: John Lozoya PhD, Phone: ??[phone] Danii JONES LAB BLOOD ORDERABLES Final Result [facility] * (ABNORMAL) Comprehensive metabolic panel (08/28/2020 9:27 AM CDT) Glucose 91 65 - 99 mg/dL [facility] - 01 BUN 11 8 - 27 mg/dL [facility] - 01 Creatinine, Serum 0.77 0.57 - 1.00 mg/dL [facility] - 01 eGFR If NonAfricn Am 84 >59 mL/min/1.7 3 [facility] - 01 eGFR If Africn Am 97 >59 mL/min/1.7 3 [facility] - 01 Comment: [facility] currently reports eGFR in compliance with the current ??recommendations of the National Kidney Foundation. [facility] will ??update reporting as new guidelines are published from the NKF-ASN ??Task force. BUN/creat ratio 14 12 - 28 [facility] - 01 Sodium 142 134 - 144 mmol/L [facility] - 01 Potassium, sr 4.3 3.5 - 5.2 mmol/L [facility] - 01 Chloride 103 96 - 106 mmol/L [facility] - 01 CO2 25 20 - 29 mmol/L [facility] - 01 Calcium 9.3 8.7 - 10.3 mg/dL [facility] - 01 Protein, sr 6.6 6.0 - 8.5 g/dL [facility] - 01 Albumin 4.4 3.8 - 4.9 g/dL [facility] - 01 Globulin, Total 2.2 1.5 - 4.5 g/dL [facility] - 01 A/G Ratio 2.0 1.2 - 2.2 [facility] - 01 Bilirubin, Total 0.3 0.0 - 1.2 mg/dL [facility] - 01 Alk phos 46(L) 48 - 121 IU/L [facility] - 01 Comment:Please note refere nce interval change AST 20 0 - 40 IU/L [facility] - 01 ALT 16 0 - 32 IU/L [facility] - 01 08/28/2020 9:27 AM CDT 08/28/2020 Narrative [facility] - 08/29/2020 7:36 AM CDT Performed at: ?? - [address] ??[id number] Synchro Assembler: John Lozoya PhD, Phone: ??[phone] Danii JONES LAB BLOOD ORDERABLES Final Result [facility] - 01 * (ABNORMAL) CBC with auto differential (08/28/2020 9:27 AM CDT) Pathologist [facility] WBC 3.5 3.4 - 10.8 x10E3/uL [facility] - 01 RBC 4.02 3.77 - 5.28 x10E6/uL [facility] - 01 Hgb 14.1 11.1 - 15.9 g/dL [facility] - 01 Hct 39.6 34.0 - 46.6 % [facility] - 01 MCV 99(H) 79 - 97 fL [facility] - 01 MCH 35.1(H) 26.6 - 33.0 pg [facility] - 01 MCHC 35.6 31.5 - 35.7 g/dL [facility] - 01 Rdw 12.9 11.7 - 15.4 % [facility] - 01 Platelets 220 150 - 450 x10E3/uL [facility] - 01 Neutrophils pct 42 Not Estab. % [facility] - 01 Lymphs pct 41 Not Estab. % [facility] - 01 Monocytes pct 14 Not Estab. % [facility] - 01 Eosinophils pct 2 Not Estab. % [facility] - 01 Basophil pct 1 Not Estab. % [facility] - 01 Neutrophil abs 1.5 1.4 - 7.0 x10E3/uL [facility] - 01 [...] 0.0 - 0.1 x10E3/uL [facility] - 01 08/28/2020 9:27 AM CDT 08/28/2020 Narrative [facility] - 08/29/2020 7:36 AM CDT Performed at: ??01 - [facility] [address] ??[id number] Synchro Assembler: John Lozoya PhD, Phone: ??[phone] Danii JONES LAB BLOOD ORDERABLES Final Result Performing Organization Address City/State/[facility] Co de Phone Number [facility] - 01 documented in this encounter Visit Diagnoses Diagnosis Elevated MCV- Primary Other abnormality of red blood cells documented in this encounter Additional Health Concerns Infection Onset Date Last Indicated Resolved Time COVID: Recovered Comment:Added based on recent COVID infection. 05/22/2020 05/26/2020 09/19/2020 3:05 AM C DT documented as of this encounter Care Teams Ambulette Driver Relationship Specialty Start Date End Date Danii Dawson PA [address] [facility] [address] [place] [address] PCP - General Internal Medicine 01/05/20 Erica Rodrigues MD [address] [place] [address] Radiation Oncologist Radiation Oncology 10/25/18 Gasper Kaba MD [address] [place] [address] Surgeon Surgical Oncology 10/25/18 Brandy Aguirre, SOFTWARE CLIENT ARCHITECT [address] [place] [address] Nurse Practitioner Certified Clinical Nurse Specialist 10/25/18 Jo-Ann Morrow, PhD [address] [place] [address] Nurse Practitioner Radiation Oncology 10/25/18 Christina Louis, LEAD NURSE [address] [place] [address] Nurse Practitioner Medical Oncology 10/25/18 documented as of this encounter
--- OUTSIDE RECORDS SUMMARY | 2024-04-24 05:54 | XMS_ITS | Encounter Summary ---
Author Organization [facility] Address [address] [place] [address] Care Team Providers Care Industrial Aerial Installer Name Role Phone Erica Rodrigues MD Unavailable Gasper Kaba MD Unavailable Brandy Aguirre CANAL TENDER Unavailable [phone] Jo-Ann Morrow PhD Unavailable [phone] Christina Louis STEAM GIGGER Unavailable [phone] Sylvia Dawson Primary Care Provider [phone] Reason for Referral * (Routine) - Closed Specialty Diagnoses / Procedures Referred By Niranjan farrell Referred To Contact Diagnoses History of COVID-19 SOB (shortness of breath) Dyspnea and respiratory abnormalities Procedures Pulmonary Function Test -[facility] Adult PFT Lab- CAM-8D; Standard; Spirometry, Spirometry w/bronchodilator, DLCO and Lung Volumes Jessenia Reyes MD Phone: tel: fax: Referral ID Status Reason Start Date Expiration Date Visits Re quested Visits Authorized [id number] Closed 10/02/2020 11/01/2021 1 1 * MRI/CAT/PET Scan (Routine) - Closed Specialty Diagnoses / Procedures Referred By Contac t Referred To Contact Diagnoses History of COVID-19 SOB (shortness of breath) Dyspnea and respiratory abnormalities Procedures CT Chest WO Contrast Jessenia Reyes MD Phone: tel: fax: External Order Referral ID Status Reason Start Date Expiration Date Visits Re quested Visits Authorized [id number] Closed 10/03/2020 11/01/2020 1 1 Reason for Visit * Reason Comments New Patient history of COVID Shortness of Breath * Consultation (Routine) - Closed Specialty Diagnoses / Procedures Referred By Contac t Referred To Contact Pulmonary Disease / Pulmonology Diagnoses History of COVID-19 SOB (shortness of breath) Sylvia Dawson PA [address] [facility] [address] [place] [address] Phone: tel: fax: Jessenia Reyes MD Phone: tel: fax: Referral ID Status Reason Start Date Expiration Date V isits Requested Visits Authorized [id number] Closed Specialty Services Required 08/29/2020 09/28/2021 1 1 Encounter Details Date Type Department Care Team (Late st Contact Info) Description 10/02/2020 11:15 AM CDT Office Visit [facility] Pulmonology [address] [place] [id number] Jessenia Reyes MD [address] [place] [address] [address] [place], [place] [id number] Dyspnea and respiratory abnormalities (Primary Dx); History of COVID-19; SOB (shortness of breath); Rheumatoid arthritis, involving unspecified site, unspecified whether rheumatoid factor present ([facility]) Social History Tobacco Use Types [...] on file Legal 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 Gender Identity Not on file Sexual Orientation Not on file 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 on file Not on file Not on file documented as of this encounter Last Filed Vital Signs Vital Sign Reading Time Taken Comments Blood Pressure 129/83 10/02/2020 11:09 AM CDT Pulse 58 10/02/2020 11:09 AM CDT Temperature - - Respiratory Rate 18 10/02/2020 11:0 9 AM CDT Oxygen Saturation 97% 10/02/2020 11: 09 AM CDT Inhaled Oxygen Concentration - - Weight 63.4 kg (139 lb 12.8 oz) 021 11:09 AM CDT Height 160 cm (5' 3 ) 10/02/2020 11:09 AM CDT Body Mass Index 24.76 10/02/2020 11:09 AM CDT documented in this encounter Progress Notes * Jessenia Reyes MD - 10/02/2020 11:15 AM CDT Images from the original note were not included. PULMONARY CLINIC NOTE Visit Date: 10/02/2020 INTERVAL HISTORY: Presents today for follow-up of ??? post COVID HPI: Patient is a 60 y.o. female [...] smoker. Rare etoh. No drug use. 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 Review of Systems: Review of Systems Constitutional: Positive for fatigue. Negative for chills and fever. HENT: Negative for nosebleeds. Eyes: Negative for pain. Respiratory: Positive for shortness of breath. Cardiovascular: Negative for chest pain. Gastrointestinal: Negative for blood in stool. Endocrine: Negative for polydipsia. Genitourinary: Negative for hematuria. Musculoskeletal: Negative for joint swelling. Skin: Negative for rash. Neurological: Negative for seizures. Psychiatric/Behavioral: Negative for behavioral problems. OBJECTIVE: Physical Exam: Vitals: 10/02/20 1109 BP: 129/83 Pulse: 58 Resp: 18 SpO2: 97% Weight: 63.4 kg (139 lb 12.8 oz) Height: 160 cm (5' [...] Mood normal. Behavior: Behavior normal. Data Review: 09/20/2020 echo: Conclusions: Normal left ventricular systolic function. No focal wall motion abnormalities. Normal left ventricular size. Impaired diastolic relaxation Grade I. Ejection fraction is measured at 62 %. Trivial mitral, tricuspid and pulmonic regurgitation. Compared with 2019: no change. ASSESSMENT AND PLAN 1. dyspnea o probably related to post COVID dyspnea and deconditioning o Check PFT o obtain chest CT o continue p.r.n. albuterol for now 2. history COVID-19 o in April 2020 with hospitalization in May 2020. o likely refer to pulmonary rehab in the future depending on test results 3. rheumatoid arthritis o no signs of pulmonary HTN on her recent echo. o Continue follow-up with Rheumatology o Check PFTs and chest CT given methotrexate use In addition to post COVID dyspnea Jessenia Reyes MD There may be syntax/grammatical errors in this note due to the use of voice recognition software. documented in this encounter Miscellaneous Notes * Addendum Note - Edna King RN - 10/02/2020 11:15 AM CDTAddended by: EDNA IKNG on: 10/02/2020 03:12 PM Modules accepted: Orders documented in this encounter Plan of Treatment Not on file documented as of this encounter Results * Pulmonary Function Test - (10/08/2020 3:24 PM CDT) [facility] FVC PRE 3.08 L [facility] FVC %PRE PRED 102 % [facility] FEV1 PRE 2.50 L [facility] FEV1 %PRE PRED 105 % [facility] FEV1/FVC PRE 81.4 % [facility] FRC PL PRE 2.[address] [facility] FRC PL %PRE PRED 93 % [facility] RV PRE 1.81 L [facility] RV %PRE PRED 94 % [facility] TLC PRE 4.98 L [facility] TLC %PRE PRED 103 % [facility] DLCO PRE 17.4 ml/min/mmH g [facility] DLCO %PRE PRED 90 % [facility] Anatomical Region Laterality Modality PFT 10/08/2020 8:58 AM CDT Narrative 10/12/2020 2:41 PM CDT With six minute walk test PFT performed at:->[facility] Adult PFT Lab- CAM-8D Procedure:->Standard Standard:->Spirometry, Spirometry w/bronchodilator, DLCO and Lung Volumes Updated Jessenia Reyes MD PFT ORDERABLES Final Result * CT Chest WO Contrast (10/08/2020 10:24 [...] it. Electronically signed by: Kenji Kim M.D. Jessenia Reyes MD IMG CT PROCEDURES Edited Resu lt - Final documented in this encounter Visit Diagnoses Diagnosis Dyspnea and respiratory abnormalities- Primary History of COVID-19 SOB (shortness of breath) Shortness of breath Rheumatoid arthritis, involving unspecified site, unspecified whether rheumatoid factor present (HCC) History of COVID-19 SOB (shortness of breath) Shortness of breath Dyspnea and respiratory abnormalities History of COVID-19 SOB (shortness of breath) Shortness of breath Dyspnea and respiratory abnormalities documented in this encounter Orders Outpatient Referral Count Last Ordered Date Fir st Ordered Date AMB REFERRAL TO PULMONOLOGY 1 10/02/2020 documented in this encounter Care Teams Industrial Aerial Installer Relationship Specialty Start Date End Date Sylvia Dawson PA [address] [place] [address] PCP - General Internal Medicine 01/05/20 Erica Rodrigues MD [address] [facility] [address] [place] [address] Radiation Oncologist Radiation Oncology 10/25/18 Gasper Kaba MD [address] [facility] [address] [place] [address] Surgeon Surgical Oncology 10/25/18 Brandy Aguirre, CARINA [address] [facility] [address] [place] [address] Nurse Practitioner Certified Clinical Nurse Specialist 10/25/18 Jo-Ann Morrow, PhD [address] [facility] [address] [place] [address] Nurse Practitioner Radiation Oncology 10/25/18 Christina Louis NP [address] [facility] [address] [place] [address] Nurse Practitioner Medical Oncology 10/25/18 documented as of this encounter
--- OUTSIDE RECORDS SUMMARY | 2024-04-24 05:54 | XMS_ITS | Encounter Summary ---
Author Organization [facility] Address [address] [place] [address] Phone Care Team Providers Care Production Welder Name Role Phone Erica Rodrigues MD Unavailable Gasper Kaba MD Unavailable [phone] Brandy Aguirre TINSEL MACHINE OPERATOR Unavailable [phone] Jo-Ann Morrow PhD Unavailable [phone] Christina Louis COMPLIANCE SPEC Unavailable [phone] Sylvia Dawson Primary Care Provider [phone] Encounter Details Date Type Department Care Team (Late st Contact Info) Description 08/27/2020 Orders Only [facility] Rheumatology [address] [place] [address] [place] [address] Ximena Ellison, PHILIP High risk medication use (Primary Dx) Social [...] on file 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 Gender Identity Not on file Sexual Orientation Not on file 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 Not on file Not on file documented as of this encounter Plan of Treatment Scheduled Orders Name Type Priority Associated Diagnoses Orde r Schedule CBC with auto differential Lab Routine High risk medication use every 2-3 months for 4 Occurrences starting 08/27/2020 until 08/27/2021, 1 completed CRP (cardiac risk) Lab Routine High risk medication use every 2-3 months for 4 Occurrences starting 08/27/2020 until 08/27/2021, 1 completed Erythrocyte sedimentation rate Lab Routine High risk medication use every 2-3 months for 4 Occurrences starting 08/27/2020 until 08/27/2021, 1 completed Comprehensive metabolic panel Lab Routine High risk medication use every 2-3 months for 4 Occurrences starting 08/27/2020 until 08/27/2021, 2 completed documented as of this encounter Procedures Procedure Name Priority Date/Time Associated Diagnosis Comments CBC WITH AUTO DIFFERENTIAL Routine 01/18/2021 11:39 AM CDT High risk medication use ERYTHROCYTE SEDIMENTATION RATE Routine 01/18/2021 11:39 AM CDT High risk medication use CRP, HIGH SENSITIVITY Routine 01/18/2021 11:39 AM CDT High risk medication use COMPREHENSIVE METABOLIC PANEL Routine 01/18/2021 11:39 AM CDT High risk medication use CBC WITH AUTO DIFFERENTIAL Routine 08/28/2020 9:26 AM CDT ERYTHROCYTE SEDIMENTATION RATE Routine 08/28/2020 9:26 AM CDT CRP, HIGH SENSITIVITY Routine 08/28/2020 9:26 AM CDT COMPREHENSIVE METABOLIC PANEL Routine 08/28/2020 9:26 AM CDT High risk medication use documented in this encounter Results * (ABNORMAL) Comprehensive metabolic panel (01/18/2021 11:39 AM CDT) Glucose 94 65 - 99 mg/dL [facility] - 01 BUN 15 8 - 27 mg/dL [facility] - 01 Creatinine, Serum 1.01(H) 0.57 - 1.00 mg/dL [facility] - 01 eGFR If NonAfricn Am 61 >59 mL/min/1.7 3 [facility] - 01 eGFR If Africn Am 70 >59 mL/min/1.7 3 [facility] - 01 Comment: [facility] currently reports eGFR in compliance with the current ??recommendations of the National Kidney Foundation. [facility] will ??update reporting as new guidelines are published from the NKF-ASN ??Task force. BUN/creat ratio 15 12 - 28 [facility] - 01 Sodium 140 134 - 144 mmol/L [facility] - 01 Potassium, sr 4.3 3.5 - 5.2 mmol/L [facility] - 01 Chloride 99 96 - 106 mmol/L [facility] - 01 CO2 27 20 - 29 mmol/L [facility] - 01 Calcium 9.6 8.7 - 10.3 mg/dL [facility] - 01 Protein, sr 6.7 6.0 - 8.5 g/dL [facility] - 01 Albumin 4.8 3.8 - 4.9 g/dL [facility] - 01 Globulin, Total 1.9 1.5 - 4.5 g/dL [facility] - 01 A/G Ratio 2.5(H) 1.2 - 2.2 [facility] - 01 Bilirubin, Total 0.3 0.0 - 1.2 mg/dL [facility] - 01 Alk phos 53 44 - 121 IU/L [facility] - 01 Comment:Please note refere nce interval change AST 20 0 - 40 IU/L [facility] - 01 ALT 14 0 - 32 IU/L [facility] - 01 Blood specimen (specimen) 01/18/2021 11:39 AM CDT 01/18/2021 Narrative [facility] - 01/19/2021 10:09 AM CDT Performed at: ??01 - [facility] ??[id number] Elevators Inspector: John Lozoya PhD, Phone: ??[phone] Patricia Martinez MD LAB BLOOD ORDERABLES Final R esult Performing Organization Address [facility] Phone Number [facility] - * Erythrocyte sedimentation rate (01/18/2021 11:39 AM CDT) Pathologist [facility] Erythrocyte sedimentation rate 2 0 - 40 mm/hr [facility] - 01 Blood specimen (specimen) 01/18/2021 11:39 AM CDT 01/18/2021 Narrative [facility] - 01/19/2021 10:09 AM CDT Performed at: ??01 - [facility] ??[id number] Elevators Inspector: John Lozoya PhD, Phone: ??[phone] Patricia Martinez MD LAB BLOOD ORDERABLES Final R esult Performing Organization Address [facility] de Phone Number [facility] - * CRP (cardiac risk) (01/18/2021 11:39 AM CDT) Pathologist [facility] C-Reactive Protein, Cardiac 0.78 0.00 - 3.00 mg/L [facility] - 01 Comment: ? Relative Risk for Future Cardiovascular Event ? Low ? <1.00 ? Average ? 1.00 - 3.00 ? High ?>3.00 Blood specimen (specimen) 01/18/2021 11:39 AM CDT 01/18/2021 Narrative [facility] - 01/19/2021 10:09 AM CDT Performed at: ??01 - [facility] ??[id number] Elevators Inspector: John Lozoya PhD, Phone: ??[phone] us Patricia Martinez MD LAB BLOOD ORDERABLES Final R esult [facility] - 01 * (ABNORMAL) CBC with auto differential (01/18/2021 11:39 AM CDT) WBC 5.7 3.4 - 10.8 x10E3/uL [facility] - 01 RBC 4.31 3.77 - 5.28 x10E6/uL [facility] - 01 Hgb 14.3 11.1 - 15.9 g/dL [facility] - 01 Hct 43.3 34.0 - 46.6 % [facility] - 01 MCV 101(H) 79 - 97 fL [facility] - 01 MCH 33.2(H) 26.6 - 33.0 pg [facility] - 01 MCHC 33.0 31.5 - 35.7 g/dL [facility] - 01 Rdw 12.4 11.7 - 15.4 % [facility] - 01 Platelets 209 150 - 450 x10E3/uL [facility] - 01 Neutrophils pct 58 Not Estab. % [facility] - 01 Lymphs pct 31 Not Estab. % [facility] - 01 Monocytes pct 9 Not Estab. % [facility] - 01 Eosinophils pct 1 Not Estab. % [facility] - 01 Basophil pct 1 Not Estab. % [facility] - 01 Neutrophil abs 3.3 1.4 - 7.0 x10E3/uL [facility] - 01 Lymphs (Absolute) 1.8 0.7 - 3.1 x10E3/uL [facility] - 01 Monocyte abs 0.5 0.1 - 0.9 x10E3/uL [facility] - 01 Eosinophils, abs 0.1 0.0 - 0.4 x10E3/uL [facility] - 01 Basophils, abs 0.0 0.0 - 0.2 x10E3/uL [facility] - 01 Immature Granulocytes 0 Not Estab. % [facility] - 01 Immature Grans (Abs) 0.0 0.0 - 0.1 x10E3/uL [facility] - 01 Blood specimen (specimen) 01/18/2021 11:39 AM CDT 01/18/2021 Narrative [facility] - 01/19/2021 10:09 AM CDT Performed at: ??01 - [facility] ??[id number] Elevators Inspector: John Lozoya PhD, Phone: ??[phone] Patricia Martinez MD LAB BLOOD ORDERABLES Final R esult Performing Organization Address [facility] de Phone Number [facility] - * Erythrocyte sedimentation rate (08/28/2020 9:26 AM CDT) Pathologist [facility] Erythrocyte sedimentation rate 2 0 - 40 mm/hr [facility] - 01 08/28/2020 9:26 AM CDT 08/28/2020 Narrative [facility] - 08/29/2020 8:15 AM CDT Performed at: ??01 - [facility] ??[id number] Elevators Inspector: John Lozoya PhD, Phone: ??[phone] Patricia Martinez MD LAB BLOOD ORDERABLES Final R esult Performing Organization Address [facility] de Phone Number [facility] - * CRP (cardiac risk) (08/28/2020 9:26 AM CDT) C-Reactive Protein, Cardiac 0.52 0.00 - 3.00 mg/L [facility] - 01 Comment: ? Relative Risk for Future Cardiovascular Event ? Low ? <1.00 ? Average ? 1.00 - 3.00 ? High ?>3.00 08/28/2020 9:26 AM CDT 08/28/2020 Narrative [facility] - 08/29/2020 8:15 AM CDT Performed at: ??01 - [facility] [address], [place], [place] ??[id number] Elevators Inspector: John Loozya PhD, Phone: ??[phone] us Patricia Martinez MD LAB BLOOD ORDERABLES Final R esult [facility] - 01 * (ABNORMAL) CBC with auto differential (08/28/2020 9:26 AM CDT) WBC 3.6 3.4 - 10.8 x10E3/uL [facility] - 01 RBC 3.98 3.77 - 5.28 x10E6/uL [facility] - 01 Hgb 13.0 11.1 - 15.9 g/dL [facility] - 01 Hct 39.5 34.0 - 46.6 % [facility] - 01 MCV 99(H) 79 - 97 fL [facility] - 01 MCH 32.7 26.6 - 33.0 pg [facility] - 01 MCHC 32.9 31.5 - 35.7 g/dL [facility] - 01 Rdw 12.9 11.7 - 15.4 % [facility] - 01 Platelets 210 150 - 450 x10E3/uL [facility] - 01 Neutrophils pct 43 Not Estab. % [facility] - 01 Lymphs pct 41 Not Estab. % [facility] - 01 Monocytes pct 14 Not Estab. % [facility] - 01 Eosinophils pct 1 Not Estab. % [facility] - 01 Basophil pct 1 Not Estab. % [facility] - 01 Neutrophil abs 1.6 1.4 - 7.0 x10E3/uL [facility] - 01 [...] - 0.1 x10E3/uL [facility] - 01 08/28/2020 9:26 AM CDT 08/28/2020 Narrative [facility] - 08/29/2020 8:15 AM CDT Performed at: ??01 - [address] ??[id number] Elevators Inspector: John Lozoya PhD, Phone: ??[phone] us Patricia Martinez MD LAB BLOOD ORDERABLES Final R esult [facility] - 01 * (ABNORMAL) Comprehensive metabolic panel (08/28/2020 9:26 AM CDT) [facility] Glucose 90 65 - 99 mg/dL [facility] - 01 BUN 11 8 - 27 mg/dL [facility] - 01 Creatinine, Serum 0.81 0.57 - 1.00 mg/dL [facility] - 01 eGFR If NonAfricn Am 79 >59 mL/min/1.7 3 [facility] - 01 eGFR If Africn Am 91 >59 mL/min/1.7 3 [facility] - 01 Comment: [facility] currently reports eGFR in compliance with the current ??recommendations of the National Kidney Foundation. [facility] will ??update reporting as new guidelines are published from the NKF-ASN ??Task force. BUN/creat ratio 14 12 - 28 [facility] - 01 Sodium 143 134 - 144 mmol/L [facility] - 01 Potassium, sr 4.2 3.5 - 5.2 mmol/L [facility] - 01 Chloride 105 96 - 106 mmol/L [facility] - 01 CO2 27 20 - 29 mmol/L [facility] - 01 Calcium 9.1 8.7 - 10.3 mg/dL [facility] - 01 Protein, sr 6.2 6.0 - 8.5 g/dL [facility] - 01 Albumin 4.3 3.8 - 4.9 g/dL [facility] - 01 Globulin, Total 1.9 1.5 - 4.5 g/dL [facility] - 01 A/G Ratio 2.3(H) 1.2 - 2.2 [facility] - 01 Bilirubin, Total 0.3 0.0 - 1.2 mg/dL [facility] - 01 Alk phos 45(L) 48 - 121 IU/L [facility] - 01 Comment:Please note refere nce interval change AST 22 0 - 40 IU/L [facility] - 01 ALT 15 0 - 32 IU/L [facility] - 01 Blood specimen (specimen) 08/28/2020 9:26 AM CDT 08/28/2020 Narrative [facility] - 08/29/2020 8:15 AM CDT Performed at: ??01 - [facility] [address] ??[id number] Elevators Inspector: John Lozoya PhD, Phone: ??[phone] us Patricia Martinez MD LAB BLOOD ORDERABLES Final R esult [facility] - 01 documented in this encounter Visit Diagnoses Diagnosis High risk medication use- Primary documented in this encounter Additional Health Concerns Infection Onset Date Last Indicated Resolved Time COVID: Recovered Comment:Added based on recent COVID infection. 05/22/2020 05/26/2020 09/19/2020 3:05 AM C DT documented as of this encounter Care Teams Production Welder Relationship Specialty Start Date End Date Sylvia Dawson PA [address] [place] [address] PCP - General Internal Medicine 01/05/20 Erica Rodrigues MD [address] [place] [address] Radiation Oncologist Radiation Oncology 10/25/18 Gasper Kaba MD [address] [place] [address] Surgeon Surgical Oncology 10/25/18 Brandy Aguirre, TINSEL MACHINE OPERATOR [address] [place] [address] Nurse Practitioner Certified Clinical Nurse Specialist 10/25/18 Jo-Ann Morrow, PhD [address] [facility] [address] [place] [address] Nurse Practitioner Radiation Oncology 10/25/18 Christina Louis COMPLIANCE SPEC [address] [place] [address] Nurse Practitioner Medical Oncology 10/25/18 documented as of this encounter
--- OUTSIDE RECORDS SUMMARY | 2024-04-24 05:54 | XMS_ITS | Encounter Summary ---
Author Organization [facility] Address [address] [place] [address] Phone Care Team Providers Care Clam Dredge Boat Captain Name Role Phone Erica Rodrigues MD Unavailable Gasper Kaba MD Unavailable Brandy Aguirre CORRAL BOSS Unavailable Jo-Ann Morrow PhD Unavailable [phone] Christina Louis CASE MANAGER SPECIALIST Unavailable [phone] Sylvia Dawson Primary Care Provider [phone] Encounter Details Date Type Department Care Team (Late st Contact Info) Description 09/20/2020 1:40 PM CDT Office Visit [facility] Rheumatology [address] Advanced Medicine 5th [place] [address] [place] [address] Patricia Martinez MD [address] [place] [address] Rheumatoid 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 (CMS/HCC) (Primary Dx); High risk medication use Social [...] on file Legal Sex Female 3:42 AM [employer] Gender Identity Not on file Sexual Orientation Not on file 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 Not on file Not on file Not on file documented as of this encounter Last Filed Vital Signs Vital Sign Reading Time Taken Comments Blood Pressure 139/80 09/20/2020 1:37 PM CDT Pulse 61 09/20/2020 1:37 PM CDT Temperature 36.6 ??C (97.8 ??F) 09/20/2020 1:37 PM CD T Respiratory Rate - - Oxygen Saturation - - Inhaled Oxygen Concentration - - Weight 62.8 kg (138 lb 8 oz) 09/20/2020 1:37 PM CDT Height 160 cm (5' 3 ) 09/20/2020 1:37 PM CDT Body Mass Index 24.53 09/20/2020 1:37 PM CDT documented in this encounter Ordered Prescriptions Prescription Sig Dispense Quantity Refills Last Filled Start Date End Date methotrexate 2.5 mg tabletIndications: autoimmune disease Take 6 tablets (15 mg total) by mouth once a week 72 tablet 1 09/20/2020 documented in this encounter Progress Notes * Patricia Martinez MD - 09/20/2020 1:40 PM CDT Subjective Patient is a 60 y.o. female with chief complaint of F/U RA. 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 At last visit, SSZ was discontinued due to no episodes of scleritis in 2 yrs and quiet articular involvement but had eye pain, restarted at 500 mg daily and then bid for hand pain..VECTRA score demonstrated low risk of progression with level of 27 vs 45 at onset of disease. She had COVID-19 in Apr with hypoxemia, hospitalized at [facility] with COVID pneumonia. She had issues with hypotension after discharge with tachycardia and metoprolol was increased. She still feels somewhat dyspneic and has set up an appointment to be seen with pulmonary. She still feels fatigued, hair falling out. She has noted more arthralgias but no swelling except occasional in PIP's. + insomnia. She is interested in participating in our vaccine research study. DISEASE TREATMENT HISTORY May 10??2016??-initiation of anastrazole and 1 week [...] unchanged from 2017 with mild osteoarthritis present Patient Active Problem List Diagnosis ??? Cerebral arterial aneurysm ??? Migraine with aura ??? High risk medication use ??? Rheumatoid arthritis with negative rheumatoid factor (CMS/HCC) ??? Scleritis and episcleritis of left eye ??? Encounter for follow-up surveillance of breast cancer ??? Cervical high risk HPV (human papillomavirus) test positive ??? Diplopia ??? Malignant neoplasm of central portion of right breast in female, estrogen receptor positive (CMS/HCC) ??? Disorder of binocular movement ??? Headache ??? Visual discomfort ??? Postmenopausal bleeding ??? History of breast cancer ??? Mixed hyperlipidemia ??? Colon cancer screening ??? Lumbar back pain ??? Need for immunization against influenza ??? Chronic right shoulder pain ??? Stress ??? Atrial tachycardia (CMS/HCC) ??? Fever ??? History of COVID-19 ??? Pneumonia due to COVID-19 virus ??? Hypertension, essential ??? Tachycardia ??? Cough ??? BMI 24.0-24.9, adult ??? Fatigue Past Surgical History: Procedure Laterality Date ??? ABLATION ??? BREAST LUMPECTOMY ??? COLONOSCOPY 03/06/2020 ??? CYST REMOVAL ??? HYSTEROSCOPY ? ? PORT PLACEMENT CHEST >5 YEARS N/A 01/17/2015 ??? PORT REMOVAL N/A 04/10/2015 ??? RHINOPLASTY 1984 ??? THYROIDECTOMY, PARTIAL Left 1997 Dr. Demetris Aguilar ??? TONSILLECTOMY 1982 Immunization History Administered Date(s) Administered ??? Influenza, Quadrivalent, Cell Culture-based MDCK, Preservative Free, Antibiotic Free, Intramuscular 03/16/2018 ??? Influenza, Quadrivalent, Split, Preservative Free, Intramuscular 01/05/2020 ??? Influenza, Trivalent, Intramuscular 01/27/2018 ??? Influenza, [...] Shots of liquor per week Comment: social [place] [place] Family History Problem Relation Age of Onset [...] Sister ??? Hypertension Sister Review of Systems: All other systems are negative Vitals BP 139/80 Pulse 61 Temp 36.6 ??C (97.8 ??F) Ht 160 cm (5' 3 ) Wt 62.8 kg (138 lb 8 oz) LMP (LMP Unknown) BMI 24.53 kg/m?? Physical Exam Pleasant 60-year-old white female in no respiratory distress Skin without rash Conjunctiva entirely clear Musculoskeletal examination reveals no tenderness or swelling in the standard 28 joint count. She does have some osteoarthritic changes in her PIP joints Lab/Radiology/Diagnostic Review: Orders Only on 08/28/2020 Component Date Value Ref Range Status ??? WBC 08/28/2020 3.5 3.4 - 10.8 x10E3/uL Final ??? RBC 08/28/2020 4.02 3.77 - 5.28 x10E6/uL Final ??? Hgb 08/28/2020 14.1 11.1 - 15.9 g/dL Final ??? Hct 08/28/2020 39.6 34.0 - 46.6 % Final ??? MCV 08/28/2020 99* 79 - 97 fL Final ??? MCH 08/28/2020 35.1* 26.6 - 33.0 pg Final ??? MCHC 08/28/2020 35.6 31.5 - 35.7 g/dL Final ??? Rdw 08/28/2020 12.9 11.7 - 15.4 % Final ??? Platelets 08/28/2020 220 150 - 450 x10E3/uL Final ??? Neutrophils 08/28/2020 42 Not Estab. % Final ??? Lymphs 08/28/2020 41 Not Estab. % Final ??? Monocytes 08/28/2020 14 Not Estab. % Final ??? Eosinophils 08/28/2020 2 Not Estab. % Final ??? Basophil pct 08/28/2020 1 Not Estab. % Final ??? Neutrophil abs 08/28/2020 1.5 1.4 - 7.0 x10E3/uL Final ??? Lymphs (Absolute) 08/28/2020 1.5 0.7 - 3.1 x10E3/uL Final ??? Monocyte abs 08/28/2020 0.5 0.1 - 0.9 x10E3/uL Final ??? Eosinophils, abs 08/28/2020 0.1 0.0 - 0.4 x10E3/uL Final ??? Basophils, abs 08/28/2020 0.0 0.0 - 0.2 x10E3/uL Final ??? Immature Granulocytes 08/28/2020 0 Not Estab. % Final ??? Immature Grans (Abs) 08/28/2020 0.0 0.0 - 0.1 x10E3/uL Final ??? Glucose 08/28/2020 91 65 - 99 mg/dL Final ??? BUN 08/28/2020 11 8 - 27 mg/dL Final ??? Creatinine, Serum 08/28/2020 0.77 0.57 - 1.00 mg/dL Final ? ? eGFR If NonAfricn Am 08/28/2020 84 >59 mL/min/1.73 Final ? ? eGFR If Africn Am 08/28/2020 97 >59 mL/min/1.73 Final Comment: [facility] currently reports eGFR in compliance with the current recommendations of the National Kidney Foundation. [facility] will update reporting as new guidelines are published from the NKF-ASN Task force. ??? BUN/creat ratio 08/28/2020 14 12 - 28 Final ??? Sodium 08/28/2020 142 134 - 144 mmol/L Final ??? Potassium, sr 08/28/2020 4.3 3.5 - 5.2 mmol/L Final ??? Chloride 08/28/2020 103 96 - 106 mmol/L Final ??? CO2 08/28/2020 25 20 - 29 mmol/L Final ??? Calcium 08/28/2020 9.3 8.7 - 10.3 mg/dL Final ??? Protein, sr 08/28/2020 6.6 6.0 - 8.5 g/dL Final ??? Albumin 08/28/2020 4.4 3.8 - 4.9 g/dL Final ??? Globulin, Total 08/28/2020 2.2 1.5 - 4.5 g/dL Final ??? A/G Ratio 08/28/2020 2.0 1.2 - 2.2 Final ??? Bilirubin, Total 08/28/2020 0.3 0.0 - 1.2 mg/dL Final ??? Alk phos 08/28/2020 46* 48 - 121 IU/L Final Please note reference interval change ??? AST 08/28/2020 20 0 - 40 IU/L Final ??? ALT 08/28/2020 16 0 - 32 IU/L Final ??? Cholesterol 08/28/2020 272* 100 - 199 mg/dL Final ??? Triglycerides 08/28/2020 83 0 - 149 mg/dL Final ? ? HDL Cholesterol 08/28/2020 90 >39 mg/dL Final ??? VLDL 08/28/2020 14 5 - 40 mg/dL Final ??? LDL, calculated 08/28/2020 168* 0 - 99 mg/dL Final ??? TSH 08/28/2020 2.440 0.450 - 4.500 uIU/mL Final Orders Only on 08/27/2020 Component Date Value Ref Range Status ??? Glucose 08/28/2020 90 65 - 99 mg/dL Final ??? BUN 08/28/2020 11 8 - 27 mg/dL Final ??? Creatinine, Serum 08/28/2020 0.81 0.57 - 1.00 mg/dL Final ? ? eGFR If NonAfricn Am 08/28/2020 79 >59 mL/min/1.73 Final ? ? eGFR If Africn Am 08/28/2020 91 >59 mL/min/1.73 Final Comment: [facility] currently reports eGFR in compliance with the current recommendations of the National Kidney Foundation. [facility] will update reporting as new guidelines are published from the NKF-ASN Task force. ??? BUN/creat ratio 08/28/2020 14 12 - 28 Final ??? Sodium 08/28/2020 143 134 - 144 mmol/L Final ??? Potassium, sr 08/28/2020 4.2 3.5 - 5.2 mmol/L Final ??? Chloride 08/28/2020 105 96 - 106 mmol/L Final ??? CO2 08/28/2020 27 20 - 29 mmol/L Final ??? Calcium 08/28/2020 9.1 8.7 - 10.3 mg/dL Final ??? Protein, sr 08/28/2020 6.2 6.0 - 8.5 g/dL Final ??? Albumin 08/28/2020 4.3 3.8 - 4.9 g/dL Final ??? Globulin, Total 08/28/2020 1.9 1.5 - 4.5 g/dL Final ??? A/G Ratio 08/28/2020 2.3* 1.2 - 2.2 Final ??? Bilirubin, Total 08/28/2020 0.3 0.0 - 1.2 mg/dL Final ??? Alk phos 08/28/2020 45* 48 - 121 IU/L Final Please note reference interval change ??? AST 08/28/2020 22 0 - 40 IU/L Final ??? ALT 08/28/2020 15 0 - 32 IU/L Final ??? WBC 08/28/2020 3.6 3.4 - 10.8 x10E3/uL Final ??? RBC 08/28/2020 3.98 3.77 - 5.28 x10E6/uL Final ??? Hgb 08/28/2020 13.0 11.1 - 15.9 g/dL Final ??? Hct 08/28/2020 39.5 34.0 - 46.6 % Final ??? MCV 08/28/2020 99* 79 - 97 fL Final ??? MCH 08/28/2020 32.7 26.6 - 33.0 pg Final ??? MCHC 08/28/2020 32.9 31.5 - 35.7 g/dL Final ??? Rdw 08/28/2020 12.9 11.7 - 15.4 % Final ??? Platelets 08/28/2020 210 150 - 450 x10E3/uL Final ??? Neutrophils 08/28/2020 43 Not Estab. % Final ??? Lymphs 08/28/2020 41 Not Estab. % Final ??? Monocytes 08/28/2020 14 Not Estab. % Final ??? Eosinophils 08/28/2020 1 Not Estab. % Final ??? Basophil pct 08/28/2020 1 Not Estab. % Final ??? Neutrophil abs 08/28/2020 1.6 1.4 - 7.0 x10E3/uL Final ??? Lymphs (Absolute) 08/28/2020 1.5 0.7 - 3.1 x10E3/uL Final ??? Monocyte abs 08/28/2020 0.5 0.1 - 0.9 x10E3/uL Final ??? Eosinophils, abs 08/28/2020 0.1 0.0 - 0.4 x10E3/uL Final ??? Basophils, abs 08/28/2020 0.0 0.0 - 0.2 x10E3/uL Final ??? Immature Granulocytes 08/28/2020 0 Not Estab. % Final ??? Immature Grans (Abs) 08/28/2020 0.0 0.0 - 0.1 x10E3/uL Final ??? C-Reactive Protein, Cardiac 08/28/2020 0.52 0.00 - 3.00 mg/L Final Comment: Relative Risk for Future Cardiovascular Event Low <1.00 Average 1.00 - 3.00 High >3.00 ??? Erythrocyte sedimentation rate 08/28/2020 2 0 - 40 mm/hr Final Lab on 07/20/2020 Component Date Value Ref Range Status ??? Vitamin D, 25-hydroxy 07/20/2020 63 30 - 80 ng/mL Final ??? CA 15-3 ag 07/20/2020 10.0 0.0 - 25.0 units/mL Final ??? Sodium 07/20/2020 144 135 - 145 mmol/L Final Testing performed by: [facility], [address] [place] [phone] ??? Potassium, pl 07/20/2020 4.0 3.3 - 4.9 mmol/L Final Testing performed by: [facility], [address] [place] [phone] ??? Chloride 07/20/2020 104 97 - 110 mmol/L Final Testing performed by: [facility], [address] [place] [phone] ??? CO2 07/20/2020 35* 22 - 32 mmol/L Final Testing performed by: [facility], [address] [place] [phone] ??? Anion gap 07/20/2020 5 2 - 15 mmol/L Final Testing performed by: [facility], [address] [place] [phone] ??? BUN 07/20/2020 13 8 - 25 mg/dL Final Testing performed by: [facility], [address] [place] [phone] ??? Creatinine 07/20/2020 0.63 0.60 - 1.10 mg/dL Final Testing performed by: [facility], [address] [place] [phone] ??? Glucose 07/20/2020 80 70 - 199 mg/dL Final Comment: Interpretive [...] Current interpretive data was last revised 2017. Testing performed by: [facility], [address] [place] [phone] ??? Calcium 07/20/2020 9.8 8.5 - 10.3 mg/dL Final Testing performed by: [facility], [address] [place] [phone] ??? Bilirubin, total 07/20/2020 0.3 0.1 - 1.2 mg/dL Final Testing performed by: [facility], [address] [place] [phone] ??? Protein, pl 07/20/2020 6.8 6.5 - 8.5 g/dL Final Testing performed by: [facility], [address] [place] [phone] ??? Albumin 07/20/2020 4.5 3.5 - 5.0 g/dL Final Testing performed by: [facility], [address] [place] [phone] ??? Alk phos 07/20/2020 46 40 - 130 Units/L Final Testing performed by: [facility], [address] [place] [phone] ??? ALT 07/20/2020 15 7 - 45 Units/L Final Testing performed by: [facility], [address] [place] [phone] ??? AST 07/20/2020 16 10 - 45 Units/L Final Testing performed by: [facility], [address] [place] [phone] ??? WBC 07/20/2020 6.3 3.8 - 9.8 K/cumm Final Testing performed by: [facility], [address] [place] [phone] ??? Hgb 07/20/2020 12.8 12.1 - 15.1 g/dL Final Testing performed by: [facility], [address] [place] [phone] ??? Hct 07/20/2020 38.6 36.1 - 44.3 % Final Testing performed by: [facility], [address] [place] [phone] ??? Plt 07/20/2020 222 140 - 440 K/cumm Final Testing performed by: [facility], [address] [place] [phone] ??? MPV 07/20/2020 7.8 6.8 - 10.4 fL Final Testing performed by: [facility], [address] [place] [phone] ??? RBC 07/20/2020 3.82* 3.90 - 5.00 M/cumm Final Testing performed by: [facility], [address] [place] [phone] ??? MCV 07/20/2020 101.1* 80.0 - 97.6 fL Final Testing performed by: [facility], [address] [place] [phone] ??? MCH 07/20/2020 33.5 26.7 - 33.7 pg Final Testing performed by: [facility], [address] [place] [phone] ??? MCHC 07/20/2020 33.1 32.7 - 35.5 g/dL Final Testing performed by: [facility], [address] [place] [phone] ??? RDW CV 07/20/2020 15.8* 11.8 - 14.6 % Final Testing performed by: [facility], [address] [place] [phone] ??? NRBC abs 07/20/2020 0.00 0.00 - 0.01 K/cumm Final Testing performed by: [facility], [address] [place] [phone] ??? Neutrophil abs 07/20/2020 4.3 1.8 - 6.6 K/cumm Final Testing performed by: [facility], [address] [place] [phone] ??? Lymphocyte abs 07/20/2020 1.2 1.2 - 3.3 K/cumm Final Testing performed by: [facility], [address] [place] [phone] ??? Monocyte abs 07/20/2020 0.6 0.2 - 1.2 K/cumm Final Testing performed by: [facility], [address] [place] [phone] ??? Eosinophil abs 07/20/2020 0.1 0.0 - 0.5 K/cumm Final Testing performed by: [facility], [address] [place] [phone] ??? Basophil abs 07/20/2020 0.0 0.0 - 0.2 K/cumm Final Testing performed by: [facility], [address] [place] [phone] ??? Neutrophil pct 07/20/2020 69.5 % Final Comment: Interpretive Data Percent cell count reference ranges are not reported, since discordance with absolute values may lead to misinterpretation of CBC data. Current Interpretive Data was last revised on 2017. Testing performed by: [facility], [address] [place] [phone] ??? Lymphocyte pct 07/20/2020 18.6 % Final Comment: Interpretive Data Percent cell count reference ranges are not reported, since discordance with absolute values may lead to misinterpretation of CBC data. Current Interpretive Data was last revised on 2017. Testing performed by: [facility], [address] [place] [phone] ??? Monocyte pct 07/20/2020 10.3 % Final Testing performed by: [facility], [address] [facility] [phone] ??? Eosinophil pct 07/20/2020 1.1 % Final Testing performed by: [facility], [address] [facility] [phone] ??? Basophil pct 07/20/2020 0.5 % Final Testing performed by: [facility], [address] [facility] [phone] Assessment /Plan Problem List Items Addressed This Visit Rheumatology Problems Rheumatoid arthritis with negative rheumatoid factor (CMS/HCC) - Primary Overall her disease activity is improved but she did have to resume sulfasalazine to regain controlof her articular disease. She continues to have [...] give us specific data of her response. Other High risk medication use Monitoring laboratories reviewed it she will continue to have these performed on a quarterly basis documented in this encounter Miscellaneous Notes * Assessment & Plan Note - Patricia Martinez MD - 09/20/2020 2:46 PM CDT Associated Problem(s): High risk medication use Monitoring laboratories reviewed it she will continue to have these performed on a quarterly basis * Assessment & Plan Note - Patricia Martinez MD - 09/20/2020 2:43 PM CDT Associated Problem(s): Rheumatoid arthritis with negative rheumatoid factor (HCC) Overall her disease activity is improved but she did have to resume sulfasalazine to regain controlof her articular disease. She continues to have [...] give us specific data of her response. documented in this encounter Plan of Treatment Not on file documented as of this encounter Visit Diagnoses Diagnosis Rheumatoid 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 (CMS/HCC) ([facility])- Primary High risk medication use documented in this encounter Discontinued Medications Medication Sig Discontinue Reason Start Date End Da te methotrexate 2.5 mg tabletIndications:autoim mune disease Take 8 tablets (20 mg total) by mouth once a week Reorder 03/15/2020 09/20/2020 documented as of this encounter Care Teams Clam Dredge Boat Captain Relationship Specialty Start Date End Date Sylvia Dawson PA [address] [place] [address] PCP - General Internal Medicine 01/05/20 Erica Rodrigues MD [address] [facility] [address] [place] [address] Radiation Oncologist Radiation Oncology 10/25/18 Gasper Kaba MD [address] [facility] [address] [place] [address] Surgeon Surgical Oncology 10/25/18 rBandy Aguirre, CORRAL BOSS [address] [place] [address] Nurse Practitioner Certified Clinical Nurse Specialist 10/25/18 Jo-Ann Morrow, PhD [address] [place] [address] Nurse Practitioner Radiation Oncology 10/25/18 Christina Louis, CASE MANAGER SPECIALIST [address] [place] [address] Nurse Practitioner Medical Oncology 10/25/18 documented as of this encounter
--- OUTSIDE RECORDS SUMMARY | 2024-04-24 05:54 | XMS_ITS | Encounter Summary ---
Author Organization [facility] Address [address] [place] [address] Care Team Providers Care Hunting And Fishing Guide Name Role Phone Erica Rodrigues MD Unavailable Gasper Kaba MD Unavailable Brandy Aguirre ACCOUNT CONTACT ASSOCIATE Unavailable [phone] Jo-Ann Morrow PhD Unavailable [phone] Christina Louis FILM BOOKER Unavailable [phone] Sylvia Dawson Primary Care Provider [phone] Reason for Visit * Reason Onset Date Comments BP concerns 07/16/2020 Encounter Details Date Type Department Care Team (Late st Contact Info) Description 07/16/2020 Telephone [facility] Family Medicine [address] [place] [address] Sylvia Dawson PA [address] [place] [address] BP concerns Social History Tobacco Use Types Packs/Day Years [...] file Legal Sex Female 3:42 AM RECOVERY ADVOCATE Gender Identity Not on file Sexual Orientation Not on file 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 * Telephone Encounter - Brandi Hernandez MA - 07/18/2020 8:53 AM CDT Patient has been informed. Will reach out to Dr. Thompson in a week. * Telephone Encounter - Sylvia Dawson PA - 07/17/2020 5:[address] Thompson just adjusted her atenolol, then I don't want to add anything else. I would like to back out of the bp control and defer to him as 2 cooks in the kitchen can create problems. Just so she knows, the lisinopril max dose is 40mg so the only way to increase the same medicationsis by increasing the atenolol. Continue to monitor her readings and call Dr. Thompson in a week to see if adjustment are needed. Call her pharmacy and cancel the amlodipine. * Telephone Encounter - Brandi Hernandez MA - 07/17/2020 3:04 PM CDT Pt state that her Atenolol has been increase to [address] Jay connor 2 week ago. Pt want to know could she just increase her Lisinopril instead of starting a new medication. State she get bad reactions from starting medications. * Telephone Encounter - Sylvia Dawson PA - 07/17/2020 2:40 PM CDT Last note was incomplete -- please disregard and inform patient of the following. Atenolol 25mg bid Lisinopril 40mg in AM Start Amlodipine 2.5mg PM I will send new Rx for the amlodipine. Please call in 1-2 weeks with readings. * Telephone Encounter - Sylvia Dawson PA - 07/17/2020 2:35 PM CDT Better, but still borderline high. Continue her current meds: Metroprolol 50 and Start Amlodipine 2.5mg in the PM * Telephone Encounter - Brandi Hernandez MA - 07/17/2020 1:54 PM CDT Patient Bp reading are as followed: 07/12/2020 135/91 07/15/2020 124/93 P:77 P: 75 127/79 104/73 P:78 P: 80 146/91 110/80 P: 69 P: 89 07/13/2020 129/95 07/16/2020 146/97 P: 74 P: 75 134/88 129/92 P: 69 P: 68 07/14/2020 123/86 131/81 P:64 P: 66 130/84 130/83 P:66 * Telephone Encounter - Brandi Hernandez MA - 07/17/2020 11:17 AM CDT Left message for patient to contact office with Bp reading. * Telephone Encounter - Sylvia Dawson PA - 07/16/2020 9:02 PM CDT Now that it has been a few more days, please call the patient and see what her reading are running. It may take a few weeks to get the full effects of all the bp changes. If she hasn't brought her cuff to the office to callibrate, I would encourage. Let me see what her readings are now and will make a decision based on those decisions. If she can come in and calibrate her machine, take her reading in the office and bring it to me. * Telephone Encounter - Barbra Alarcon LPN - 07/16/2020 10:31 AM CDT Patient called in to follow up on [employer] message sent 07/13/2020 in regards to BP concerns. States that in additional to that information, this morning 1 hour after taking BP medication, reading at 146/97. States she is feeling tired but not other s/s. documented in this encounter Plan of Treatment Not on file documented as of this encounter Visit Diagnoses Not on filedocumented in this encounter Additional Health Concerns Infection Onset Date Last Indicated Resolved Time COVID: Recovered Comment:Added based on recent COVID infection. 05/22/2020 05/26/2020 09/19/2020 3:05 AM C DT documented as of this encounter Care Teams Hunting And Fishing Guide Relationship Specialty Start Date End Date Sylvia Dawson PA [address] [place] [address] PCP - General Internal Medicine 01/05/20 Erica Rodrigues MD [address] [place] [address] Radiation Oncologist Radiation Oncology 10/25/18 Gasper Kaba MD [address] [place] [address] Surgeon Surgical Oncology 10/25/18 Brandy Aguirre, CARINA [address] [place] [address] Nurse Practitioner Certified Clinical Nurse Specialist 10/25/18 Jo-Ann Morrow, PhD [address] [place] [address] Nurse Practitioner Radiation Oncology 10/25/18 Christina Louis FILM BOOKER [address] [place] [address] Nurse Practitioner Medical Oncology 10/25/18 documented as of this encounter
--- OUTSIDE RECORDS SUMMARY | 2024-04-24 05:54 | XMS_ITS | Encounter Summary ---
Author Organization [facility] Address [address] [place] [address] Phone Care Team Providers Care Assistant Professor Of Dietetics Name Role Phone Erica Rodrigues MD Unavailable Gasper Kaba MD Unavailable Brandy Aguirre RESEARCH ATTORNEY Unavailable Jo-Ann Morrow PhD Unavailable Christina Louis SUPERVISOR TESTING Unavailable [phone] Sylvia Dawson Primary Care Provider [phone] Reason for Visit * Reason Comments Gynecologic Exam Encounter Details Date Type Department Care Team (Latest Contact Info) Description 10/17/2020 4:45 PM CDT Office Visit [facility] Obstetrics and Gynecology 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 Gynecologic Exam Subjective: Yesika Denney is a 60 y.o. who presents for a well woman exam. Last seen in 2019 for hysteroscopy, D+C for persistent PMB. Pathology consistent with atrophic endometrium. No longer having any discharge since this time. Personal history of breast cancer--Stage I ER/ID pos invasive ductal carcinoma. S/p right lumpectomy/ radiation/chemo. Attempted Arimidex but did not tolerate secondary to severe arthritis and thus this was discontinued. She is currently on MTX, Plaquenil, and sulfasalazine. Continues to have dyspnea since her COVID pneumonia in April. Menstrual History: Menarche Age: 13 years No LMP recorded (lmp unknown). Patient is postmenopausal. 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 No history fertility medications. She used oral contraceptives in the past. One does progesterone 08/2014. She experienced menopause approximately age 53. Past Medical History: Diagnosis Date ??? Benign left breast lump 06/2002 biopsy showed fibrosis and hyperplasia ??? Brain aneurysm ??? Brain aneurysm Followed by Dr. Chaudhari: Every 3 years ??? Breast cancer (CMS/HCC) ??? Depression ??? Elevated cholesterol ??? Hypertension ??? Migraine ??? RA (rheumatoid arthritis) (CMS/HCC) Past Surgical History: Procedure Laterality Date ??? ABLATION ??? BREAST LUMPECTOMY ??? COLONOSCOPY 03/06/2020 ??? CYST REMOVAL ??? HYSTEROSCOPY ? ? PORT PLACEMENT CHEST >5 YEARS N/A 01/17/2015 ??? PORT REMOVAL N/A 04/10/2015 ??? RHINOPLASTY 1984 ??? THYROIDECTOMY, PARTIAL Left 1997 Dr. Demetris Aguilar ??? TONSILLECTOMY 1982 Current Outpatient Medications: ??? aspirin 81 mg [...] ), Disp: 90 tablet, Rfl: 3 ??? hzzpweynaz-yuuhvepafrvkf-zgvycfxk-codeine (FIORICET WITH CODEINE) [id number] mg per capsule, Take 1 capsule by [...] (15 mg total) by mouth once a week, Disp: 72 tablet,Rfl: 1 ??? sulfaSALAzine EN (AZULFIDINE EN) 500 [...] 10/17/2020), Disp: 8.5 g, Rfl: 0 ??? predniSONE (DELTASONE) 10 mg tablet, , Disp: , Rfl: Allergies Allergen Reactions ??? Adhesive Hives ??? Adhesive Tape-Silicones Rash ??? Cyclizine Other (See comments) and Hallucinations Reaction: Urinary retention Family History Problem Relation [...] No Known Problems Sister ??? Hypertension Sister Social History Socioeconomic History ??? Marital status: Spouse name: None ??? Number of children: 3 ??? Years of education: None ??? Highest education level: None Occupational History ??? 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 Smoking status: Never Smoker ??? Smokeless tobacco: Never Used Substance and Sexual Activity ??? Alcohol use: Yes Alcohol/week: 1.0 standard drinks Types: 1 Shots of liquor per week Comment: social ??? Drug use: No ??? Sexual activity: Yes Partners: Male control/protection: Post-menopausal Other Topics Concern ??? None Social History Narrative ??? None Social Determinants of Health Financial Resource Strain: [...] Gatherings with Friends and Family: ??? Attends Pentecostal Services: ??? Active Member of Clubs or Organizations: ??? Attends Club or Organization Meetings: ??? Marital Status: Intimate Partner Violence: ??? Fear of Current or Ex-Partner: ??? Emotionally Abused: ??? Physically Abused: ??? Sexually Abused: Review of Systems Constitutional: No change in weight, Fatigue Respiratory: SOB Neurological: Headaches All other Review of Systems are Negative: All other Review of Systems are negative Have you been to the emergency room, urgent care, or hospital for any reason since the last visit: No Objective: BP 122/79 Ht 160 cm (5' 3 ) Wt 140 lb 3.2 oz (63.6 kg) LMP (LMP Unknown) BMI 24.84 kg/m?? Physical Exam Constitutional: General: She is not in acute distress. Appearance: She is well-developed. Cardiovascular: Rate and Rhythm: Normal rate and regular rhythm. Pulmonary: Effort: Pulmonary effort is normal. Chest: Breasts: Breasts are symmetrical. Right: No mass, skin change or tenderness. Left: No mass, skin change or tenderness. Abdominal: Palpations: Abdomen is soft. There is no mass. Tenderness: There is no abdominal tenderness. Genitourinary: Vagina normal and uterus normal. Right labia: normal. There is no rash or lesion on the left labia. Left Labia: normal. There is no rash or lesion on the left labia. No vaginal discharge or erythema. No erythema in the vagina. Right adnexa: normal. Right adnexa does not display tenderness. Left adnexa: normal. Left adnexa does not display tenderness. Cervix: Normal exam. Uterus is not enlarged or tender. Musculoskeletal: General: Normal range of motion. Neurological: Mental Status: She is alert and oriented to person, place, and time. Psychiatric: Mood and Affect: Mood is not anxious or depressed. Assessment and Plan: Yesika Denney is a 60 y.o. female who presents for a well woman exam. 1. Maintenance: --pap performed, last in 2018 but on several immunosuppressants. --neg CBE, last mammogram 02/2020 [facility] 2, personal history of breast CA, following with Dr. Kaba ([place]). --discussed diet/exercise --bone health: Ca/Vit D reviewed, weight bearing, DEXA normal in 2018 --colonoscopy Mar 06 2020 normal --following closely with Rheumatology for arthritis and PCP for HCM, recently received COVID vaccine dose #1. Ema Keyes MD 10/17/2020 documented in this encounter Plan of Treatment Not on file documented as of this encounter Procedures Procedure Name Priority Date/Time Associated Diagnosis Comments PAP AND HIGH RISK HPV, REFLEX TO GENOTYPING Routine 10/17/2020 5:43 PM CDT Well woman exam with routine gynecological exam documented in this encounter Results * Pap and High Risk HPV, reflex to Genotyping (10/17/2020 5:43 PM CDT) CLINICAL INFORMATION: Postmenopausal SCREENING [facility] LMP POSTMENOPAUSAL [facility] Previous Pap INFORMATION NOT PROVIDED [facility] Prev. Bx INFORMATION NOT PROVIDED [facility] SOURCE: Cervix, Endocervix [facility] Pap, specimen adequacy SATISFACTORY FOR EVALUATION [facility] HPV interp Negative for intraepithelial lesion or malignancy. Atrophic pattern; predominantly parabasal cells [facility] Senior Restaurant Manager [facility], CT(ASCP) CT Screening location: [place] [address] [place] [address] [facility] Review assistant infant toddler teacher [facility], CT(ASCP) CT screening location: [place] [address] [address] [address] [facility] Comment [facility] Comment: EXPLANATORY NOTE: The Pap is a screening test for cervical cancer. It is not a diagnostic test and is subject to false negative and false positive results. It is most reliable when a satisfactory sample, regularly obtained, is submitted with relevant clinical findings and history, and when the Pap result is evaluated along with historic and current clinical information. Human papillomavirus DNA, High Risk E6/E7 Not Detected NOT DETECTED [facility] Comment: Not Detected High Risk HPV types (16,18,31,33,35,39,45,51,52, 56,58,59,66,68) were not detected. Other HPV types which cause anogenital lesions may be present. The significance of the other types of HPV in malignant processes has not been established. Methodology: Real Time PCR ? Swab 10/17/2020 5:43 PM CDT 10/18/2020 1:13 PM CDT Ema Keyes MD LAB CYTOLOGY ORDERABLES F inal Result [place] [address] [place] [address] [facility] [address] [facility] [place], [place] documented in this encounter Visit Diagnoses Diagnosis Well woman exam with routine gynecological exam- Primary Routine gynecological examination documented in this encounter Care Teams Assistant Professor Of Dietetics Relationship Specialty Start Date End Date Sylvia Dawson PA [address] [place] [address] PCP - General Internal Medicine 01/05/20 Erica Rodrigues MD [address] [place] [address] Radiation Oncologist Radiation Oncology 10/25/18 Gasper Kaba MD [address] [facility] [address] [place] [address] Surgeon Surgical Oncology 10/25/18 Brandy Aguirre, CARINA [address] [facility] [address] [place] [address] Nurse Practitioner Certified Clinical Nurse Specialist 10/25/18 Jo-Ann Morrow, PhD [address] [place] [address] Nurse Practitioner Radiation Oncology 10/25/18 Christina Louis SUPERVISOR TESTING [address] [place] [address] Nurse Practitioner Medical Oncology 10/25/18 documented as of this encounter
--- OUTSIDE RECORDS SUMMARY | 2024-04-24 05:54 | XMS_ITS | Encounter Summary ---
Author Organization [facility] Address [address] [place] [address] Care Team Providers Care Beverage Steward Name Role Phone Erica Rodrigues MD Unavailable Gasper Kaba MD Unavailable [phone] Brandy Aguirre PIPE JEEPER Unavailable [phone] Jo-Ann Morrow PhD Unavailable [phone] Christina Louis PLEXIGLAS FORMER Unavailable [phone] Sylvia Dawson Primary Care Provider [phone] Reason for Visit * Reason Comments Preventative Care Flu Vaccine Encounter Details Date Type Department Care Team (Late st Contact Info) Description 02/26/2021 9:00 AM NOVELTY BALLOON ASSEMBLER AND PACKER Office Visit [facility] Family Medicine [address] [place] [address] Sylvia Dawson PA [address] [facility] [address] [place] [address] Annual physical exam (Primary Dx); Mixed hyperlipidemia; Hypertension, essential; Stress; Recurrent major depressive disorder, remission status unspecified (HCC); Rheumatoid 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 (CMS/HCC) (HCC); Need for influenza vaccination; BMI 25.0-25.9,adult Social History Tobacco Use Types [...] on file Legal Sex Female 3:42 AM NOVELTY BALLOON ASSEMBLER AND PACKER Gender Identity Not on file Sexual Orientation Not on file 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 file Not on file Not on file documented as of this encounter Last Filed Vital Signs Vital Sign Reading Time Taken Comments Blood Pressure 106/74 02/26/2021 9:31 AM NOVELTY BALLOON ASSEMBLER AND PACKER Pulse 71 02/26/2021 9:31 AM NOVELTY BALLOON ASSEMBLER AND PACKER Temperature - - Respiratory Rate 18 02/26/2021 9:31 AM NOVELTY BALLOON ASSEMBLER AND PACKER Oxygen Saturation 97% 02/26/2021 9:31 AM NOVELTY BALLOON ASSEMBLER AND PACKER Inhaled Oxygen Concentration - - Weight 65.7 kg (144 lb 14.4 oz) 02/26/2021 9:31 AM NOVELTY BALLOON ASSEMBLER AND PACKER Height 160 cm (5' 3 ) 02/26/2021 9:31 AM NOVELTY BALLOON ASSEMBLER AND PACKER Body Mass Index 25.67 02/26/2021 9:31 AM NOVELTY BALLOON ASSEMBLER AND PACKER documented in this encounter Ordered Prescriptions Prescription Sig Dispense Quantity Refills Last Filled Start Date End Date FLUoxetine (PROzac) 20 mg capsuleIndications :Stress,Recurrent major depressive disorder, remission status unspecified (HCC) Take 1 capsule (20 mg total) by mouth daily 90 capsule 1 02/26/2021 2 lisinopriL (PRINIVIL,ZESTRIL) 40 mg tabletIndications: Hypertension, essential Take 1 tablet (40 mg total) by mouth daily 90 tablet 1 02/26/2021 2 documented in this encounter Progress Notes * Sylvia Dawson PA - 02/26/2021 9:00 AM CST Images from the original note were not included. Subjective/Objective Patient ID: Yesika Denney is a 60 y.o. female. Chief Complaint Preventative Care and Flu Vaccine HPI Patient presents for wellness exam and followup chronic concerns. EP Dr. Jay De León Atenolol 25 is working well for her. Rheum is stable Noting increased jaw pain ?/ allergies ?? ROMAN are fine/stable. ?? Rheum sxs are stable. Trying diet for cholesterol management. Not wanting to consider statin. Patient states she tried some [id number] supplement it actually made it go up so she has stopped that and is now working on treat dietary changes and exercises for improvement. FLU - needs Shingrix done x 2 Colonoscopy 02/2020--->2029 Mamm scheduled 03/2021 Review of Systems See HPI Vitals: 02/26/21 0931 BP: 106/74 Pulse: 71 Resp: 18 SpO2: 97% Weight: 65.7 kg (144 lb 14.4 oz) Height: 160 cm (5' 3 ) [...] an independent risk factor for cardiovascular events Orders: - Comprehensive metabolic panel; Future - Lipid panel; Future Hypertension, essential (I10) Assessment & Plan: Bp is stable/in acceptable range for any co-morbidities. Encouraged to limit sodium intake and exercise for weight control. Continue atenolol and lisinopril Orders: - lisinopriL (PRINIVIL,ZESTRIL) 40 mg tablet; Take 1 tablet (40 mg total) by mouth daily Stress (F43.9) Assessment & Plan: Stable with Prozac 20 mg Orders: - FLUoxetine (PROzac) 20 mg capsule; Take 1 capsule (20 mg total) by mouth daily Recurrent major depressive disorder, remission status unspecified (HCC) (F33.9) Assessment & Plan: Continue Prozac 20 mg Orders: - FLUoxetine (PROzac) 20 mg capsule; Take 1 capsule (20 mg total) by mouth daily Rheumatoid 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 (CMS/HCC) (HCC) (M06.09) Assessment & Plan: Continue per Rheumatology Need for influenza vaccination (Z23) Assessment & Plan: Flu vaccine updated in office today. Orders: - Flu Vaccine Quad PF 6m+ IM - Fluarix / FluLaval / Fluzone BMI 25.0-25.9,adult (Z68.25) Assessment & Plan: Weight/BMI is in healthy range. Continue healthy lifestyle to maintain. *This note is dictated using [employer] medical voice recognition software, variances in spelling and vocabulary are possible and unintentional.* Sylvia Dawson PA-C Cosigned by Mark Gonzalez MD at 02/28/2021 8:26 AM NOVELTY BALLOON ASSEMBLER AND PACKER LTY BALLOON ASSEMBLER AND PACKER LTY BALLOON ASSEMBLER AND PACKER documented in this encounter Miscellaneous Notes * Assessment & Plan Note - Syvlia Dawson PA - 02/27/2021 11:34 PM NOVELTY BALLOON ASSEMBLER AND PACKER Associated Problem(s): Need for influenza vaccination (Resolved 07/05/2021) Flu vaccine updated in office today. LTY BALLOON ASSEMBLER AND PACKER * Assessment & Plan Note - Sylvia Dawson PA - 02/27/2021 11:34 PM NOVELTY BALLOON ASSEMBLER AND PACKER Associated Problem(s): Moderate episode of recurrent major depressive disorder (HCC) Continue Prozac 20 mg LTY BALLOON ASSEMBLER AND PACKER * Assessment & Plan Note - Sylvia Dawson PA - 02/27/2021 11:34 PM NOVELTY BALLOON ASSEMBLER AND PACKER Associated Problem(s): Annual physical exam (Resolved 08/26/2021) Encouraged healthy lifestyle, good nutrition and exercise. Encouraged Calcium and Vitamin D and weight bearing exercise for bone health. Reviewed immunizations Reviewed age appropirate screenings. LTY BALLOON ASSEMBLER AND PACKER * Assessment & Plan Note - Sylvia Dawson PA - 02/27/2021 11:34 PM NOVELTY BALLOON ASSEMBLER AND PACKER Associated Problem(s): Hypertension, essential Bp is stable/in acceptable range for any co-morbidities. Encouraged to limit sodium intake and exercise for weight control. Continue atenolol and lisinopril LTY BALLOON ASSEMBLER AND PACKER * Assessment & Plan Note - Sylvia Dawson PA - 02/27/2021 11:33 PM NOVELTY BALLOON ASSEMBLER AND PACKER Associated Problem(s): Stress (Resolved 08/26/2021) Stable with Prozac 20 mg LTY BALLOON ASSEMBLER AND PACKER * Assessment & Plan Note - Sylvia Dawson PA - 02/27/2021 11:32 PM NOVELTY BALLOON ASSEMBLER AND PACKER Associated Problem(s): Mixed hyperlipidemia Encouraged patient to [...] an independent risk factor for cardiovascular events LTY BALLOON ASSEMBLER AND PACKER * Assessment & Plan Note - Sylvia Dawson PA - 02/27/2021 11:31 PM NOVELTY BALLOON ASSEMBLER AND PACKER Associated Problem(s): Rheumatoid arthritis with negative rheumatoid factor (HCC) Continue per Rheumatology LTY BALLOON ASSEMBLER AND PACKER * Assessment & Plan Note - Barbra Alarcon LPN - 02/26/2021 9:42 AM NOVELTY BALLOON ASSEMBLER AND PACKER Associated Problem(s): BMI 25.0-25.9,adult (Resolved 06/14/2021) Weight/BMI is in healthy range. Continue healthy lifestyle to maintain. LTY BALLOON ASSEMBLER AND PACKER documented in this encounter Plan of Treatment Not on file documented as of this encounter Procedures Procedure Name Priority Date/Time Associated Diagnosis Comments COMPREHENSIVE METABOLIC PANEL Routine 08/30/2021 9:54 AM CDT Mixed hyperlipidemia LIPID PANEL Routine 08/30/2021 9:53 AM CDT Mixed hyperlipidemia documented in this encounter Results * (ABNORMAL) Comprehensive metabolic panel (08/30/2021 9:54 AM CDT) Glucose 93 65 - 99 mg/dL [facility] - 01 BUN 12 8 - 27 mg/dL [facility] - 01 Creatinine, Serum 0.87 0.57 - 1.00 mg/dL [facility] - 01 eGFR 76 >59 mL/min/1.7 3 [facility] - 01 BUN/creat ratio 14 12 [...] - 8.5 g/dL [facility] - 01 Albumin 4.9(H) 3.8 - 4.8 g/dL [facility] - 01 Globulin, Total 1.4(L) 1.5 - 4.5 g/dL [facility] - 01 A/G Ratio 3.5(H) 1.2 - 2.2 [facility] - 01 Bilirubin, Total 0.4 0.0 - 1.2 mg/dL [facility] - 01 Alk phos 50 44 - 121 IU/L [facility] - 01 AST 26 0 - 40 IU/L [facility] - 01 ALT 22 0 - 32 IU/L [facility] - 01 Blood specimen (specimen) 08/30/2021 9:54 AM CDT 08/30/2021 Narrative [facility] - 08/31/2021 7:36 AM CDT Performed at: ?? - [address] ??[id number] Churn Driller: John Lozoya PhD, Phone: ??[phone] Sylvia JONES LAB BLOOD ORDERABLES Final Result [facility] * (ABNORMAL) Lipid panel (08/30/2021 9:53 AM CDT) Cholesterol 277(H) 100 - 199 mg/dL [facility] - 01 Triglycerides 63 0 - 149 mg/dL [facility] - 01 HDL Cholesterol 96 >39 mg/dL [facility] - 01 VLDL 10 5 - 40 mg/dL [facility] - 01 LDL, calculated 171(H) 0 - 99 mg/dL [facility] - 01 Blood specimen (specimen) 08/30/2021 9:53 AM CDT 08/30/2021 Narrative [facility] - 08/31/2021 7:36 AM CDT Performed at: ??01 - [address] ??[id number] Churn Driller: John Lozoya PhD, Phone: ??[phone] Sylvia JONES LAB BLOOD ORDERABLES Final Result [facility] - 01 documented in this encounter Visit Diagnoses Diagnosis Annual physical exam- Primary Routine general medical examination at a health care facility Mixed hyperlipidemia Hypertension, essential Unspecified essential hypertension Stress Other psychological or physical stress, not elsewhere classified Recurrent major depressive disorder, remission status unspecified (HCC) Rheumatoid 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 (CMS/HCC) (HCC) Need for influenza vaccination Need for prophylactic vaccination and inoculation against influenza BMI 25.0-25.9,adult documented in this encounter Discontinued Medications Medication Sig Discontinue Reason Start Date End Da te lisinopriL (PRINIVIL,ZESTRIL) 40 mg tabletIndications:Hypert ension, essential TAKE 1 TABLET DAILY Reorder 10/24/2020 02/26/2021 FLUoxetine (PROzac) 20 mg capsuleIndications:Stres s,Recurrent major depressive disorder, remission status unspecified (HCC) TAKE 1 CAPSULE DAILY. (THIS IS A DOSE INCREASE TO 30MG. PATIENT WILL TAKE ONE 20MG AND ONE 10MG CAPSULE) Reorder 02/14/2021 02/26/2021 documented as of this encounter Historical Medications * This list may reflect changes made after this encounter. atenoloL (TENORMIN) 25 mg tablet Take 25 mg by mouth daily 03/15/2021 added in this encounter Orders Immunization/Injection Count Last Ordered Date First Ordered Date FLU VACCINE QUAD PF 6M+ IM - FLUARIX / FLULAVAL / FLUZONE- SYRINGE 1 02/26/2021 documented in this encounter Care Teams Beverage Steward Relationship Specialty Start Date End Date Sylvia Dawson PA [address] [facility] [address] [place] [address] PCP - General Internal Medicine 01/05/20 Erica Rodrigues MD [address] [place] [address] Radiation Oncologist Radiation Oncology 10/25/18 Gasper Kaba MD [address] [place] [address] Surgeon Surgical Oncology 10/25/18 Brandy Aguirre, PIPE JEEPER [address] [place] [address] Nurse Practitioner Certified Clinical Nurse Specialist 10/25/18 Jo-Ann Morrow, PhD [address] [place] [address] Nurse Practitioner Radiation Oncology 10/25/18 Christina Louis NP [address] [place] [address] Nurse Practitioner Medical Oncology 10/25/18 documented as of this encounter
--- OUTSIDE RECORDS SUMMARY | 2024-04-24 05:54 | XMS_ITS | Encounter Summary ---
Author Organization [facility] Address [address] [place] [address] Phone Care Team Providers Care Grading Clerk Name Role Phone Eriac Rodrigues MD Unavailable Gasper Kaba MD Unavailable Brandy Aguirre Unavailable [phone] Jo-Ann Morrow PhD Unavailable [phone] Christina Louis SHEET METAL DUCT INSTALLER HELPER Unavailable [phone] Sylvia Dawson Primary Care Provider [phone] Reason for Referral * Diagnostic Imaging (Routine) - Closed Specialty Diagnoses / Procedures Referred By Niranjan farrell Referred To Contact Diagnoses History of right breast cancer Procedures US Breast Right Limited Brandy Aguirre CNS Phone: tel: fax: [address] [address] Referral ID Status Reason Start Date Expiration Date Visits Re quested Visits Authorized [id number] Closed 04/02/2021 05/02/2022 1 1 NER Reason for Visit * Reason Comments Follow-up * Consultation (Routine) - Closed Specialty Diagnoses / Procedures Referred By Niranjan farrell Referred To Contact Surgical Oncology Diagnoses History of right breast cancer Sylvia Dawson PA [address] [place] [address] Phone: tel: fax: [facility] (All Locations) Referral ID Status Reason Start Date Expiration Date V isits Requested Visits Authorized [id number] Closed Specialty Services Required 03/26/2021 04/25/2022 1 1 Encounter Details Date Type Department Care Team (Late st Contact Info) Description 04/02/2021 8:40 AM SKEINER Office Visit [facility] Surgery [address] [place] [address] Brandy Aguirre, [facility] [address] [facility] [address] [place] [address] Encounter for follow-up surveillance of breast cancer (Primary Dx); History of right breast cancer; Breast mass Social History Tobacco Use Types Packs/Day Years [...] on file Legal Sex Female 3:42 AM SKEINER Gender Identity Not on file Sexual Orientation Not on file 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 Not on file Not on file Not on file documented as of this encounter Last Filed Vital Signs Vital Sign Reading Time Taken Comments Blood Pressure 133/82 04/02/2021 8:34 AM SKEINER Pulse 100 04/02/2021 8:34 AM SKEINER Temperature 36.7 ??C (98 ??F) 04/02/2021 8:34 AM SKEINER Respiratory Rate 93 04/02/2021 8:34 AM SKEINER Oxygen Saturation 97% 04/02/2021 8:34 AM SKEINER Inhaled Oxygen Concentration - - Weight 65.5 kg (144 lb 6.4 oz) 04/02/2021 8:32 A M SKEINER Height - - Body Mass Index 25.58 02/26/2021 9:31 AM SKEINER documented in this encounter Progress Notes * Brandy Aguirre, POTABLE WATER TREATMENT OPERATOR - 04/02/2021 8:40 AM CST DEPARTMENT OF SURGERY - [facility] [address] [place] [address] [place] [address] ??(PHONE)???[phone] (FAX) ?? NAME:?Yesika Denney :?1960 DATE:?04/02/21 ?? CHIEF COMPLAINT: Follow-up for right breast cancer ?? HISTORY OF ??PRESENT ILLNESS: ??I saw Yesika Denney for yearly follow-up. She was seen in 2014 after undergoing imaging at an outside facility that was abnormal. She then underwent image guided biopsy demonstrating breast cancer. On 11/16/2014, she underwent needle directed excisional biopsy withsentinel lymph node biopsy of the right breast for stage I, T1 cN0, M0, ER/[place] positive, HER 2 negative, invasive ductal carcinoma. She had Oncotype DX recurrence score of 22 and underwent adjuvant chemotherapy of Taxotere and cyclophosphamide X4 as well as accelerated partial breast radiation. She was placed on anastrozole and had significant side effects of arthritic symptoms. She ultimately discontinued the medication and has done well since that time. Today she notes no palpable findings on her breast self-exam. 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 Past Medical History: Diagnosis Date ??? Autoimmune disease (CMS/HCC) (HCC) ??? Benign left breast lump 06/2002 biopsy showed fibrosis and hyperplasia ??? Brain aneurysm ??? Brain aneurysm Followed by Dr. Chaudhari: Every 3 years ??? Breast cancer (CMS/HCC) (HCC) 2014 ??? Depression ??? Elevated cholesterol ??? Hypertension ??? Migraine ??? RA (rheumatoid arthritis) (HCC) Past Surgical History: Procedure Laterality Date ??? ABLATION ??? BREAST BIOPSY Left 2002 benign ??? BREAST LUMPECTOMY Right 2014 ??? COLONOSCOPY 03/06/2020 ??? CYST REMOVAL ??? HYSTEROSCOPY ? ? PORT PLACEMENT CHEST >5 YEARS N/A 01/17/2015 ??? PORT REMOVAL N/A 04/10/2015 ??? RHINOPLASTY 1985 ??? THYROIDECTOMY, PARTIAL Left 1997 Dr. Demetris Aguilar ??? TONSILLECTOMY 1982 Social History Socioeconomic History ??? Marital status: Spouse name: None ??? Number of children: 3 ??? Years of education: None ??? Highest education level: None Occupational History ??? 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 Smoking status: Never Smoker ??? Smokeless tobacco: Never Used Substance and Sexual Activity ??? Alcohol use: Yes Alcohol/week: 1.0 standard drink Types: 1 Shots of liquor per week Comment: social ??? Drug use: No ??? Sexual activity: Yes Partners: Male control/protection: Post-menopausal, Tubal Ligation Other Topics Concern ??? None Social History Narrative Feels safe at home Social Determinants of Health Financial Resource Strain: Not on file Food Insecurity: Not on file Transportation Needs: Not on file Physical Activity: Not on file Stress: Not on file Social Connections: Not on file Intimate Partner Violence: Not on file Housing Stability: Not on file Family History Problem Relation Age of Onset [...] No Known Problems Sister ??? Hypertension Sister Prior to Admission medications Medication Sig Start Date End Date Taking? Authorizing Provider aspirin 81 mg enteric coated tablet Take 81 mg by mouth 2 (two) times a week Yes Historical Provider, azithromycin (ZITHROMAX) 250 mg tablet 01/14/19 Yes Historical Provider, FLUOXETINE 10 mg capsule 01/14/19 Yes Historical Provider, folic acid (FOLVITE) 1 mg tablet Take 2 tablets (2,000 mcg total) by mouth daily 11/02/18 Yes Patricia Martinez MD hydroxychloroquine (PLAQUENIL) 200 mg tablet Take 1 tablet (200 mg total) by mouth daily 11/29/18 Yes Patricia Martinez MD ibuprofen (ADVIL,MOTRIN) 400 mg tablet Take by mouth. Yes Aco Historical Provider, lisinopril (PRINIVIL,ZESTRIL) 40 mg tablet 01/14/19 Yes Historical Provider, melatonin 5 mg tablet TAKE 1 TABLET BEDTIME Yes Historical Provider, methotrexate 2.5 mg tablet Take 8 tablets (20 mg total) by mouth once a week 11/02/18 Yes Patricia Perea MD nzrbtfnyhuhl-vhc-ON-ginkgo (ONE DAILY WOMEN 50 PLUS) 400-120 mcg-mg tablet daily. Yes Historical Provider, sulfaSALAzine EN (AZULFIDINE EN) 500 mg EC tablet Take 1 tablet (500 mg total) by mouth 2 (two) times a day 11/29/18 Yes Patricia Martinez MD valACYclovir (VALTREX) 500 mg tablet daily. Yes Historical Provider, FLUoxetine (PROzac) 20 mg capsule Take 1 capsule (20 mg total) by mouth daily. 04/29/18 01/18/19 Patricia Martinez MD lisinopril (PRINIVIL,ZESTRIL) 20 mg tablet daily. 01/18/19 Historical Provider, Allergies Allergen Reactions ??? Adhesive Hives ??? Adhesive Tape-Silicones Rash ??? Cyclizine Other (See comments) and Hallucinations Reaction: Urinary retention ?? PHYSICAL EXAMINATION: GENERAL: ??Well-developed, well-nourished 60 y.o. female in no apparent distress. EYES: Pupil equal and reactive. ??Sclerae - no jaundice. NOSE AND THROAT: Mucosal membranes pink and intact. SKIN: No concerning lesions ??or skin changes noted on face, neck or trunk. NECK: No palpable neck masses. HEART: Regular rate. No JVD noted. LUNGS: No shortness of breath noted. LYMPHATIC SYSTEM: No concerning cervical, supraclavicular or ??axillary lymphadenopathy. BILATERAL BREAST EXAM: Her right breast has a well-healed incision in the circumareolar edge. She has well-healed axillary incision. She has density and nodularity noted in the upper outer quadrant. She has some slight skin dimpling noted in the area as well which the patient states is new. She hasno palpable axillary mass, no skin changes, no nipple changes, no nipple discharge. The left breasthas no mass, nipple discharge, palpable axillary mass, skin changes, skin dimpling. She has a well-healed incision the upper portion of her breast for prior port. MUSCULOSKELETAL: No evidence of rib, long bone, or spine pain. ??No complaints ??of joint pain. EXTREMITIES: Full range of motion in all extremeties. No lymphedema. NEUROLOGICAL: No focal neurologic signs; normal gait. ?? IMAGING: ??She underwent bilateral screening mammograms dated 03/02/2021 which demonstrated benign findings. TECHNIQUE: CC and MLO views of the bilateral breasts were obtained with digital technique using breast tomosynthesis with C view. Computer aided detection was utilized. ?? FINDINGS: DENSITY: The tissue of the bilateral breasts is heterogeneously dense, which may obscure small masses. ?? BREASTS: There are postsurgical changes of right breast lumpectomy. There are no suspicious masses, suspicious calcifications, or other suspicious findings in either breast. There has been no suspicious interval change. ?? IMPRESSION: There is no mammographic evidence of malignancy. A 1 year screening mammogram is recommended. ? BI-RADS: 2 - Benign. ? IMPRESSION/RECOMMENDATIONS: ??I will obtain a right breast ultrasound for a right breast density. Iwill be in touch with the patient once they become available. She will follow up in 1 year when sheis due for screening mammograms. I have encouraged her to continue her breast self-examination to notify us if she identifies any changes or problems. ? Brandy Aguirre, ADRIANA, ACNS-BC ? Endocrine &??Oncologic Surgery ? I have reviewed the history, physical, assessment and plan and concur with the findings. ? Gasper ??Lorena Kaba M.D. river rat NER documented in this encounter Plan of Treatment Not on file documented as of this encounter Results * US Breast Right Limited (05/23/2021 2:44 PM SKEINER) Anatomical Region Laterality Modality Breast Right Ultrasound 05/23/2021 2:53 PM SKEINER Impressions 05/23/2021 2:53 PM SKEINER BI-RADS Category 2, benign. Recommendation Annual screening mammogram Electronically signed by: Kailee Harris M.D. Narrative 05/23/2021 2:53 PM SKEINER EXAM: ??US BREAST RIGHT LIMITED DATE: 05/23/2021 [...] blood flow suggestive of seroma/hematoma. Brandy Aguirre POTABLE WATER TREATMENT OPERATOR IMG MAMMO PROCEDURES Final R esult documented in this encounter Visit Diagnoses Diagnosis Encounter for follow-up surveillance of breast cancer- Primary History of right breast cancer Breast mass Lump or mass in breast History of right breast cancer documented in this encounter Orders Outpatient Referral Count Last Ordered Date Fir st Ordered Date AMB REFERRAL TO SURGICAL ONCOLOGY 1 021 documented in this encounter Care Teams Grading Clerk Relationship Specialty Start Date End Date Sylvia Dawson PA [address] [facility] [address] [place] [address] PCP - General Internal Medicine 01/05/20 Erica Rodrigues MD [address] [facility] [address] [place] [address] Radiation Oncologist Radiation Oncology 10/25/18 Gasper Kaba MD [address] [facility] [address] [place] [address] Surgeon Surgical Oncology 10/25/18 Brandy Aguirre CNS [address] [facility] [address] [place] [address] Nurse Practitioner Certified Clinical Nurse Specialist 10/25/18 Jo-Ann Morrow, PhD [address] [facility] [address] [place] [address] Nurse Practitioner Radiation Oncology 10/25/18 Christina Louis NP [address] [facility] [address] [place] [address] Nurse Practitioner Medical Oncology 10/25/18 documented as of this encounter
--- OUTSIDE RECORDS SUMMARY | 2024-04-24 05:54 | XMS_ITS | Encounter Summary ---
Author Organization [facility] Address [address] [place] [address] Phone Care Team Providers Care Waste Oil Pumper Name Role Phone Erica Rodrigues MD Unavailable Gasper Kaba MD Unavailable [phone] Brandy Aguirre PUBLIC HEALTH REGISTRAR Unavailable Jo-Ann Morrow PhD Unavailable Christina Louis NP Unavailable [phone] Sylvia Dawson Primary Care Provider [phone] Encounter Details Date Type Department Care Team (Late st Contact Info) Description 07/20/2020 11:00 AM CDT Lab [facility] Oncology [address] [facility] [address] 7th [place] [address] [place] [address] Brandy Hall MD PhD [address] [facility] [address] [place] [address] Christina Louis NP [address] [facility] [address] [place] [address] Malignant neoplasm of central portion of right breast in female, estrogen receptor positive (CMS/HCC) Discharge Disposition: Discharge to home or self [...] on file Legal Sex Female 3:42 AM ARTIFICIAL BREEDING DISTRIBUTOR Gender Identity Not on file Sexual Orientation Not on file 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 documented in this encounter Plan of Treatment Not on file documented as of this encounter Procedures Procedure Name Priority Date/Time Associated Diagnosis Comments DIFFERENTIAL AUTO Routine 07/20/2020 11: 04 AM CDT Malignant neoplasm of central portion of right breast in female, estrogen receptor positive (CMS/HCC) CBC WITH AUTO DIFFERENTIAL Routine 07/20/2020 11:04 AM CDT Malignant neoplasm of central portion of right breast in female, estrogen receptor positive (CMS/HCC) CANCER ANTIGEN 15-3 Routine 07/20/2020 1 1:04 AM CDT Malignant neoplasm of central portion of right breast in female, estrogen receptor positive (CMS/HCC) VITAMIN D 25 HYDROXY Routine 07/20/2020 11:04 AM CDT Malignant neoplasm of central portion of right breast in female, estrogen receptor positive (CMS/HCC) COMPREHENSIVE METABOLIC PANEL STAT 07/20/2020 11:04 AM CDT Malignant neoplasm of central portion of right breast in female, estrogen receptor positive (CMS/HCC) documented in this encounter Results * Differential, auto (07/20/2020 11:04 AM CDT) Neutrophil abs 4.3 1.8 - 6.6 K/cumm [facility] Comment:Testing performed by : [facility], [address] [place] [phone] Lymphocyte abs 1.2 1.2 - 3.3 K/cumm [facility] Comment:Testing performed by : [facility], [address] [place] [phone] Monocyte abs 0.6 0.2 - 1.2 K/cumm [facility] Comment:Testing performed by : [facility], [address] [place] [phone] Eosinophil abs 0.1 0.0 - 0.5 K/cumm [facility] Comment:Testing performed by : [facility], [address] [place] [phone] Basophil abs 0.0 0.0 - 0.2 K/cumm [facility] Comment:Testing performed by : [facility], [address] [place] [phone] Neutrophil pct 69.5 % [facility] Comment: Interpretive Data Percent cell count reference ranges are not reported, since discordance with absolute values may lead to misinterpretation of CBC data. Current Interpretive Data was last revised on 2017. Testing performed by: [facility], [address] [place] [phone] Lymphocyte pct 18.6 % [facility] Comment: Interpretive Data Percent cell count reference ranges are not reported, since discordance with absolute values may lead to misinterpretation of CBC data. Current Interpretive Data was last revised on 2017. Testing performed by: [facility], [address] [place] [phone] Monocyte pct 10.3 % [facility] Comment:Testing performed by : [facility], [address] [place] [phone] Eosinophil pct 1.1 % [facility] Comment:Testing performed by : [facility], [address] [place] [phone] Basophil pct 0.5 % [facility] Comment:Testing performed by : [facility], [address] [place] [phone] Blood specimen (specimen) 07/20/2020 11:04 AM CDT 07/20/2020 11:07 AM CDT us Christina Louis INDUSTRIAL PSYCHOLOGY PROFESSOR LAB BLOOD ORDERABLES Final Resu lt [facility] Department [place] [address] * (ABNORMAL) CBC with auto differential (07/20/2020 11:04 AM CDT) WBC 6.3 3.8 - 9.8 K/cumm [facility] Comment:Testing performed by : [facility], [address] [place] [phone] Hgb 12.8 12.1 - 15.1 g/dL [facility] Comment:Testing performed by : [facility], [address] [place] [phone] Hct 38.6 36.1 - 44.3 % [facility] Comment:Testing performed by : [facility], [address] [place] [phone] Plt 222 140 - 440 K/cumm [facility] Comment:Testing performed by : [facility], [address] [place] [phone] MPV 7.8 6.8 - 10.4 fL [facility] Comment:Testing performed by : [address] [phone] RBC 3.82(L) 3.90 - 5.00 M/cumm [facility] Comment:Testing performed by : [facility], [address] [place] [phone] MCV 101.1(H) 80.0 - 97.6 fL [facility] Comment:Testing performed by : [facility], [address] [place] [phone] MCH 33.5 26.7 - 33.7 pg [facility] Comment:Testing performed by : [facility], [address] [place] [phone] MCHC 33.1 32.7 - 35.5 g/dL [facility] Comment:Testing performed by : [facility], [address] [place] [phone] RDW CV 15.8(H) 11.8 - 14.6 % [facility] Comment:Testing performed by : [facility], [address] [place] [phone] NRBC abs 0.00 0.00 - 0.01 K/cumm [facility] Comment:Testing performed by : [facility], [address] [place] [phone] Blood specimen (specimen) 07/20/2020 11:04 AM CDT 07/20/2020 11:07 AM CDT us Christina Louis INDUSTRIAL PSYCHOLOGY PROFESSOR LAB BLOOD ORDERABLES Final Resu lt [facility] Department [place] [address] * (ABNORMAL) Comprehensive metabolic panel (07/20/2020 11:04 AM CDT) Sodium 144 135 - 145 mmol/L [facility] Comment:Testing performed by : [facility], [address] [place] [phone] Potassium, pl 4.0 3.3 - 4.9 mmol/L [facility] Comment:Testing performed by : [facility], [address] [place] [phone] Chloride 104 97 - 110 mmol/L [facility] Comment:Testing performed by : [facility], [address] [place] [phone] CO2 35(H) 22 - 32 mmol/L [facility] Comment:Testing performed by : [facility], [address] [place] [phone] Anion gap 5 2 - 15 mmol/L [facility] Comment:Testing performed by : [facility], [address] [place] [phone] BUN 13 8 - 25 mg/dL [facility] Comment:Testing performed by : [facility], [address] [place] [phone] Creatinine 0.63 0.60 - 1.10 mg/dL [facility] Comment:Testing performed by : [facility], [address] [place] [phone] Glucose 80 70 - 199 mg/dL [facility] Comment: Interpretive Data Fasting glucose >/= [...] was last revised 2017. Testing performed by: [facility], [address] [place] [phone] Calcium 9.8 8.5 - 10.3 mg/dL [facility] Comment:Testing performed by : [address] [phone] Bilirubin, total 0.3 0.1 - 1.2 mg/dL [facility] Comment:Testing performed by : [facility], [address] [place] [phone] Protein, pl 6.8 6.5 - 8.5 g/dL [facility] Comment:Testing performed by : [facility], [address] [place] [phone] Albumin 4.5 3.5 - 5.0 g/dL [facility] Comment:Testing performed by : [address] [phone] Alk phos 46 40 - 130 Units/L [facility] Comment:Testing performed by : [facility], [address] [place] [phone] ALT 15 7 - 45 Units/L [facility] Comment:Testing performed by : [facility], [address] [place] [phone] AST 16 10 - 45 Units/L [facility] Comment:Testing performed by : [facility], [address] [place] [phone] Blood specimen (specimen) 07/20/2020 11:04 AM CDT 07/20/2020 11:07 AM CDT Christina Louis NP LAB BLOOD ORDERABLES Final Resu lt Performing Organization Address [facility] de Phone Number [facility] Department [place] [address] * Cancer antigen 15-3 (07/20/2020 11:04 AM CDT) CA 15-3 ag 10.0 0.0 - 25.0 units/mL [facility] Blood specimen (specimen) 07/20/2020 11:04 AM CDT 07/20/2020 11:29 AM CDT Christina Louis NP LAB BLOOD ORDERABLES Final Resu lt Performing Organization Address [facility] Co de Phone Number [facility] Department [place] [address] * Vitamin D 25 hydroxy (07/20/2020 11:04 AM CDT) Vitamin D 25-OH 63 30 - 80 ng/mL [facility] Blood specimen (specimen) 07/20/2020 11:04 AM CDT 07/20/2020 11:29 AM CDT Christina Louis INDUSTRIAL PSYCHOLOGY PROFESSOR LAB BLOOD ORDERABLES Final Resu lt Performing Organization Address City/[facility] Co de Phone Number [facility] Department [place] [address] documented in this encounter Visit Diagnoses Diagnosis Malignant neoplasm of central portion of right breast in female, estrogen receptor positive (HCC) documented in this encounter Additional Health Concerns Infection Onset Date Last Indicated Resolved Time COVID: Recovered Comment:Added based on recent COVID infection. 05/22/2020 05/26/2020 09/19/2020 3:05 AM C DT documented as of this encounter Care Teams Waste Oil Pumper Relationship Specialty Start Date End Date Sylvia Dawson PA [address] [place] [address] PCP - General Internal Medicine 01/05/20 Erica Rodrigues MD [address] [place] [address] Radiation Oncologist Radiation Oncology 10/25/18 Gasper Kaba MD [address] [place] [address] Surgeon Surgical Oncology 10/25/18 Brandy Aguirre, PUBLIC HEALTH REGISTRAR [address] [place] [address] Nurse Practitioner Certified Clinical Nurse Specialist 10/25/18 Jo-Ann Morrow, PhD [address] [place] [address] Nurse Practitioner Radiation Oncology 10/25/18 Christina Louis NP [address] [place] [address] Nurse Practitioner Medical Oncology 10/25/18 documented as of this encounter
--- OUTSIDE RECORDS SUMMARY | 2024-04-24 05:54 | XMS_ITS | Encounter Summary ---
Author Organization [facility] Address [address] [facility] [address] [place] [address] Care Team Providers Care Passenger Brakeman Name Role Phone Erica Rodrigues MD Unavailable Gasper Kaba MD Unavailable Brandy Aguirre AIR CONDITIONING MECHANIC INDUSTRIAL Unavailable [phone] Jo-Ann Morrow PhD Unavailable [phone] Christina Louis ENERGY AND SUSTAINABILITY MANAGER Unavailable [phone] Sylvia Dawson Primary Care Provider [phone] Encounter Details Date Type Department Care Team (Late st Contact Info) Description 06/22/2020 Orders Only [facility] Family Medicine [address] [place] [address] Sylvia Dawson PA [address] [place] [address] Social History Tobacco Use Types [...] on file Legal Sex Female 3:42 AM DATA SECURITY ANALYST Gender Identity Not on file Sexual Orientation Not on file 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 Has been on it in the past for ROMAN. SECURITY ANALYST documented in this encounter Plan of Treatment Not on file documented as of this encounter Visit Diagnoses Not on filedocumented in this encounter Additional Health Concerns Infection Onset Date Last Indicated Resolved Time COVID: Recovered Comment:Added based on recent COVID infection. 05/22/2020 05/26/2020 09/19/2020 3:05 AM C DT documented as of this encounter Care Teams Passenger Brakeman Relationship Specialty Start Date End Date Sylvia Dawson PA [address] [facility] [address] [place] [address] PCP - General Internal Medicine 01/05/20 Erica Rodrigues MD [address] [facility] [address] [place] [address] Radiation Oncologist Radiation Oncology 10/25/18 Gasper Kaba MD [address] [facility] [address] [place] [address] Surgeon Surgical Oncology 10/25/18 Brandy Aguirre CNS [address] [facility] [address] LL [facility] [address] [place] [address] Nurse Practitioner Certified Clinical Nurse Specialist 10/25/18 Jo-Ann Morrow, PhD [address] [facility] [address] [facility] [address] [place] [address] Nurse Practitioner Radiation Oncology 10/25/18 Christina Louis, ENERGY AND SUSTAINABILITY MANAGER [address] [facility] [address] [facility] [address] [place] [address] Nurse Practitioner Medical Oncology 10/25/18 documented as of this encounter
--- OUTSIDE RECORDS SUMMARY | 2024-04-24 05:54 | XMS_ITS | Encounter Summary ---
Author Organization [facility] Address [address] [facility] [address] [place] [address] Care Team Providers Care Magnetic Tester Name Role Phone Erica Rodrigues MD Unavailable Gasper Kaba MD Unavailable Brandy Aguirre ABALONE DIVER Unavailable [phone] Jo-Ann Morrow PhD Unavailable [phone] Christina Louis HEALTH PHYSICS TECHNICIAN Unavailable [phone] Sylvia Dawson Primary Care Provider [phone] Reason for Visit * Reason Onset Date Comments Covid-19 Home Monitoring 05/26/2020 Encounter Details Date Type Department Care Team (Late st Contact Info) Description 05/26/2020 Telephone [facility] Accountable Care Organization [address] [place] [address] Brianne Young MA [address] [place] [address] [facility] [address] [place] [address] Covid-19 Home Monitoring Social History Tobacco Use Types Packs/Day Years Used Date Smoking Tobacco: Never Smokeless Tobacco: Never Alcohol Use Standard Drinks/Week Comments Yes 1 (1 standard drink = 0.6 oz pur e alcohol) social PHQ-2 Answer Date Recorded PHQ-2 Total Score (If total score is 3 or more points, staff should administer the PHQ-9) 0 05/07/2020 Comments No Sex and Gender Information Value Date Recorded Sex Assigned at Not on file Legal Sex Female 3:42 AM FINANCIAL COUNSELOR Gender Identity Not on file Sexual Orientation Not on file 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 The patient has either completed the full 14-day program or has expressed 3 days of improved or no symptoms and 7 days since initial onset. We recommend that they are scheduled for a telemedicine evaluation with a primary care provider within 3 days of completion of the program. For questions or concerns about the home monitoring program, please contact . NCIAL COUNSELOR documented in this encounter Plan of Treatment Not on file documented as of this encounter Visit Diagnoses Not on filedocumented in this encounter Additional Health Concerns Infection Onset Date Last Indicated Resolved Time COVID: Recovered Comment:Added based on recent COVID infection. 05/22/2020 05/26/2020 09/19/2020 3:05 AM C DT documented as of this encounter Care Teams Magnetic Tester Relationship Specialty Start Date End Date Sylvia Dawson PA [address] [facility] [address] [place] [address] PCP - General Internal Medicine 01/05/20 Erica Rodrigues MD [address] [place] [address] Radiation Oncologist Radiation Oncology 10/25/18 Gasper Kaba MD [address] [place] [address] Surgeon Surgical Oncology 10/25/18 Brandy Aguirre, ABALONE DIVER [address] [facility] [address] [place] [address] Nurse Practitioner Certified Clinical Nurse Specialist 10/25/18 Jo-Ann Morrow, PhD [address] [facility] [address] [place] [address] Nurse Practitioner Radiation Oncology 10/25/18 Christina Louis, HEALTH PHYSICS TECHNICIAN [address] [facility] [address] [place] [address] Nurse Practitioner Medical Oncology 10/25/18 documented as of this encounter
--- OUTSIDE RECORDS SUMMARY | 2024-04-24 05:54 | XMS_ITS | Encounter Summary ---
Author Organization [facility] Address [address] [facility] [address] [place] [address] Care Team Providers Care Web Site Designer Name Role Phone Erica Rodrigues MD Unavailable Gasper Kaba MD Unavailable Brandy Aguirre BLACKING MACHINE OPERATOR Unavailable [phone] Jo-Ann Morrow PhD Unavailable [phone] Christina Louis BILLING AND INSURANCE COORDINATOR Unavailable [phone] Sylvia Dawson Primary Care Provider [phone] Encounter Details Date Type Department Care Team (Late st Contact Info) Description 07/17/2020 Orders Only [facility] Family Medicine [address] [place] [address] Sylvia Dawson PA [address] [facility] [address] [place] [address] Social History Tobacco Use Types [...] on file Legal Sex Female 3:42 AM NIGHT CLERK Gender Identity Not on file Sexual Orientation Not on file 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 05/22/2020 05/26/2020 09/19/2020 3:05 AM C DT documented as of this encounter Care Teams Web Site Designer Relationship Specialty Start Date End Date Sylvia Dawson PA [address] [facility] [address] [place] [address] PCP - General Internal Medicine 01/05/20 Erica Rodrigues MD [address] [facility] [address] [place] [address] Radiation Oncologist Radiation Oncology 10/25/18 Gasper Kaba MD [address] [place] [address] Surgeon Surgical Oncology 10/25/18 Brandy Aguirre CNS [address] [place] [address] Nurse Practitioner Certified Clinical Nurse Specialist 10/25/18 Jo-Ann Morrow, PhD [address] [facility] [address] [place] [address] Nurse Practitioner Radiation Oncology 10/25/18 Christina Louis, BILLING AND INSURANCE COORDINATOR [address] [facility] [address] [place] [address] Nurse Practitioner Medical Oncology 10/25/18 documented as of this encounter
--- OUTSIDE RECORDS SUMMARY | 2024-04-24 05:54 | XMS_ITS | Encounter Summary ---
Author Organization [facility] Consumr of [facility] Address [address] [place] [address] Phone Care Team Providers Care Bureau Chief Name Role Phone Eirca Rodrigues MD Unavailable Gasper Kaba MD Unavailable Brandy Aguirre LEATHER CARVER Unavailable [phone] Jo-Ann Morrow PhD Unavailable [phone] Christina Louis MEDICAL CODING TECHNICIAN Unavailable [phone] Sylvia Dawson Primary Care Provider [phone] Reason for Referral * Diagnostic Imaging (Routine) - Closed Specialty Diagnoses / Procedures Referred By Contac t Referred To Contact Diagnoses Bilateral foot pain Procedures XR Foot Left 3 or More Views Patricia Martinez MD [address] [facility] [address] [place] [address] Phone: tel: fax: [address] [address] Referral ID Status Reason Start Date Expiration Date Visits Re quested Visits Authorized [id number] Closed 05/03/2021 06/02/2022 1 1 T MANAGER/DISPATCH * Diagnostic Imaging (Routine) - Closed Specialty Diagnoses / Procedures Referred By Contac t Referred To Contact Diagnoses Bilateral foot pain Procedures XR Foot Right 3 or More Views Patricia Martinez MD [address] [place] [address] Phone: tel: fax: [facility] [address] [facility] [place] [address] Referral ID Status Reason Start Date Expiration Date Visits Re quested Visits Authorized [id number] Closed 05/03/2021 06/02/2022 1 1 T MANAGER/DISPATCH Encounter Details Date Type Department Care Team (Late st Contact Info) Description 05/03/2021 Orders Only [facility] Rheumatology [address] 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 2. No new erosion or joint space narrowing in the hands and feet. Electronically signed by: French Webster M.D. Narrative 05/07/2021 3:01 PM FLEET MANAGER/DISPATCH EXAMINATION: XR HAND LEFT 3 OR MORE [...] 3 or More Views (05/07/2021 2:49 PM FLEET MANAGER/DISPATCH) Anatomical Region Laterality Modality Lower Extremities, Foot Right Computed Radiography 05/07/2021 3:01 PM FLEET MANAGER/DISPATCH Impressions 05/07/2021 3:01 PM FLEET MANAGER/DISPATCH 1. 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 2. No new erosion or joint space narrowing in the hands and feet. Electronically signed by: French Webster M.D. 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) Bilateral foot pain documented in this encounter Care Teams Bureau Chief Relationship Specialty Start Date End Date Sylvia Dawson PA [address] [place] [address] PCP - General Internal Medicine 01/05/20 Erica Rodrigues MD [address] [facility] [address] [place] [address] Radiation Oncologist Radiation Oncology 10/25/18 Gasper Kaba MD [address] [facility] [address] [place] [address] Surgeon Surgical Oncology 10/25/18 Brandy Aguirre CNS [address] [facility] [address] [place] [address] Nurse Practitioner Certified Clinical Nurse Specialist 10/25/18 Jo-Ann Morrow, PhD [address] [facility] [address] [place] [address] Nurse Practitioner Radiation Oncology 10/25/18 Christina Louis NP [address] [facility] [address] [place] [address] Nurse Practitioner Medical Oncology 10/25/18 documented as of this encounter
--- OUTSIDE RECORDS SUMMARY | 2024-04-24 05:54 | XMS_ITS | Encounter Summary ---
Author Organization [facility] Address [address] [facility] [address] [place] [address] Care Team Providers Care Dry Cleaner Apprentice Name Role Phone Erica Rodrigues MD Unavailable Gasper Kaba MD Unavailable Brandy Aguirre [facility]LLER [facility]ENTER Unavailable [phone] Jo-Ann Morrow PhD Unavailable [phone] Christina Louis NEWSROOM INTERN Unavailable [phone] Sylvia Dawson Primary Care Provider [phone] Reason for Referral * Consultation (Routine) - Closed Specialty Diagnoses / Procedures Referred By Contac t Referred To Contact Pulmonary Disease / Pulmonology Diagnoses History of COVID-19 SOB (shortness of breath) Sylvia Dawson PA [address] [place] [address] Phone: tel: fax: Jessenia Reyes MD Phone: tel: fax: Referral ID Status Reason Start Date Expiration Date V isits Requested Visits Authorized [id number] Closed Specialty Services Required 08/29/2020 09/28/2021 1 1 Question Answer Please select the performing region: [facility] [[id number]] Please select the performing department: [facility] [[id number]] To provider: KOSTA MCCRARY [[id number]] # of visits: 1 Comments S/p COVID pneumonia. CXR is still showing hyperinflated lungs. She is SOB. 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 Not on file Not on file documented as of this encounter Plan of Treatment Scheduled Referrals Name Type Priority Associated Diagnoses Order Schedule Ambulatory referral to Pulmonology Outpatient Referral Routine History of COVID-19 SOB (shortness of breath) Expected: 09/12/2020 (Approximate), Expires: 08/29/2021 documented as of this encounter Visit Diagnoses Diagnosis History of COVID-19- Primary SOB (shortness of breath) Shortness of breath documented in this encounter Additional Health Concerns Infection Onset Date Last Indicated Resolved Time COVID: Recovered Comment:Added based on recent COVID infection. 05/22/2020 05/26/2020 09/19/2020 3:05 AM C DT documented as of this encounter Care Teams Dry Cleaner Apprentice Relationship Specialty Start Date End Date Sylvia Dawson PA [address] [place] [address] PCP - General Internal Medicine 01/05/20 Erica Rodrigues MD [address] [place] [address] Radiation Oncologist Radiation Oncology 10/25/18 Gasper Kaba MD [address] [place] [address] Surgeon Surgical Oncology 10/25/18 Brandy Aguirre, CARINA [address] [place] [address] Nurse Practitioner Certified Clinical Nurse Specialist 10/25/18 Jo-Ann Morrow, PhD [address] [place] [address] Nurse Practitioner Radiation Oncology 10/25/18 Christina Louis, NEWSROOM INTERN [address] [place] [address] Nurse Practitioner Medical Oncology 10/25/18 documented as of this encounter
--- OUTSIDE RECORDS SUMMARY | 2024-04-24 05:55 | XMS_ITS | Encounter Summary ---
Author Organization [facility] Address [address] [facility] [place] [address] Care Team Providers Care Clipman Name Role Phone Erica Rodrigues MD Unavailable Gasper Kaba MD Unavailable [phone] Brandy Aguirre MEAT PROCESS WORKER Unavailable [phone] Jo-Ann Morrow PhD Unavailable [phone] Christina Louis STUDIO DESIGNER Unavailable [phone] Martin Vazquez MD Primary Care Provider [phone] Encounter Details Date Type Department Care Team (Late st Contact Info) Description 09/12/2019 Telephone [facility] Cardiology [address] [facility] [address] [facility] [address] [place] [address] Harpal De León MD [address] [facility] [address] [place] [address] Social History Tobacco Use Types Packs/Day Years Used Date Smoking Tobacco: Never Smokeless Tobacco: Never Alcohol Use Standard Drinks/Week Comments Yes 1 (1 standard drink = 0.6 oz pur e alcohol) social Comments No Sex and Gender Information Value Date Recorded Sex Assigned at Not on file Legal Sex Female 3:42 AM AIRCRAFT SERVICER Gender Identity Not on file Sexual Orientation Not on file 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 De León on 09/21 and speak with him about increasing her Lisinopril then. Pt would rather have a lower BP by increasing her lisinopril because of her hx of brain anyurism. I told her what dr. de león's opinon was and she verbalized understanding. I advised herto keep a BP & HR record to bring in on her day of the apt. I told her two BP's were sufficientenough a day. Pt knows to wait a couple hours after he medicaitons to take her first BP of the day. * Telephone Encounter - Harpal De León MD - 09/12/2019 2:50 PM CDT The note above has been seen. The blood pressures reported are not high enough in my opinion to warrant advancing the medication doses. MJF * Telephone Encounter - Shazia Mireles RN - 09/12/2019 11:47 AM CDT Pt is on Lisinopril 20mg daily & Atenolol 50mg daily. She was previously on Lisinopril 40mg butwhen Her PCP increased her Atenolol for her high HR's he reduced her Lisinopril just incase to monitor her BP and said they can adjust the Lisinopril back up to 40mg if needed. PCP also wants pt to f/u with Dr. De León for these decisions going forward. Pt called today and said her HR's have beenin normal range under 80. But her BP has been increasing and getting higher mynor in the evening. Pt's BP in the morning 110/80, 123/80. And then in the evening Bp is running 133/90 and 142/92. Patientwas wanting to increase her Lisinopril back to 40mg and was going to do it herself but was wanting to go ahead and call and ask Dr. De León if that's ok. I told patient I would send to and call her back with an answer today. Pt verbalized understanding Pt has apt with Dr. De León on 09/21 at 2p.m pt was made aware. * Telephone Encounter - Kaba Vivien - 09/12/2019 11:06 AM CDT Pt call to discuss her bp. documented in this encounter Plan of Treatment Not on file documented as of this encounter Visit Diagnoses Not on filedocumented in this encounter Care Teams Clipman Relationship Specialty Start Date End Date Martin Vazquez MD [address] [address] PCP - General Internal Medicine 01/18/19 01/04/20 Erica Rodrigues MD [address] [facility] [address] [place] [address] Radiation Oncologist Radiation Oncology 10/25/18 Gasper Kaba MD [address] [facility] [address] [place] [address] Surgeon Surgical Oncology 10/25/18 Brandy Aguirre, CARINA [address] [facility] [address] [place] [address] Nurse Practitioner Certified Clinical Nurse Specialist 10/25/18 Jo-Ann Morrow, PhD [address] [facility] [address] [place] [address] Nurse Practitioner Radiation Oncology 10/25/18 Christina Louis NP [address] [facility] [address] [place] [address] Nurse Practitioner Medical Oncology 10/25/18 documented as of this encounter
--- OUTSIDE RECORDS SUMMARY | 2024-04-24 05:55 | XMS_ITS | Encounter Summary ---
Author Organization [facility] Address [address] [place] [address] Care Team Providers Care Pasteurizing Supervisor Name Role Phone Erica Rodrigues MD Unavailable Gasper Kaba MD Unavailable Brandy Aguirre CYBER SYSTEMS OPERATIONS SPECIALIST Unavailable [phone] Jo-Ann Morrow PhD Unavailable [phone] Christina Louis CANNING MACHINE OPERATOR Unavailable [phone] Sylvia Dawson Primary Care Provider [phone] Encounter Details Date Type Department Care Team (Late st Contact Info) Description 01/06/2020 Orders Only [facility] Family Medicine [address] [facility] [address] [place] [address] Zhang Ochoa MD [address] [facility] [address] [place] [address] Social History Tobacco Use Types Packs/Day Years Used Date Smoking Tobacco: Never Smokeless Tobacco: Never Alcohol Use Standard Drinks/Week Comments Yes 1 (1 standard drink = 0.6 oz pur e alcohol) social PHQ-2 Answer Date Recorded PHQ-2 Score 0 01/05/2020 Comments No Sex and Gender Information Value Date Recorded Sex Assigned at Not on file Legal Sex Female 3:42 AM ABSORBER OPERATOR Gender Identity Not on file Sexual Orientation Not on file 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 Not on file Not on file documented as of this encounter Plan of Treatment Not on file documented as of this encounter Procedures Procedure Name Priority Date/Time Associated Diagnosis Comments COLONOSCOPY Routine 01/15/2012 documented in this encounter Results * Colonoscopy (01/15/2012) Anatomical Region Laterality Modality Other Zhang Ochoa MD ENDOSCOPY PROCEDURES Fin al Result documented in this encounter Visit Diagnoses Not on filedocumented in this encounter Care Teams Pasteurizing Supervisor Relationship Specialty Start Date End Date Sylvia Dawson PA [address] [place] [address] PCP - General Internal Medicine 01/05/20 Erica Rodrigues MD [address] [place] [address] Radiation Oncologist Radiation Oncology 10/25/18 Gasper Kaba MD [address] [place] [address] Surgeon Surgical Oncology 10/25/18 Brandy Agurire, CYBER SYSTEMS OPERATIONS SPECIALIST [address] [place] [address] Nurse Practitioner Certified Clinical Nurse Specialist 10/25/18 Jo-Ann Morrow, PhD [address] [place] [address] Nurse Practitioner Radiation Oncology 10/25/18 Christina Louis, JENNI [address] [place] [address] Nurse Practitioner Medical Oncology 10/25/18 documented as of this encounter
--- OUTSIDE RECORDS SUMMARY | 2024-04-24 05:55 | XMS_ITS | Encounter Summary ---
Author Organization [facility] Address [address] [place] [address] Care Team Providers Care Game Operator Name Role Phone Erica Rodrigues MD Unavailable Gasper Kaba MD Unavailable [phone] Brandy Aguirre DRY WALL NAILER Unavailable [phone] Jo-Ann Morrow PhD Unavailable [phone] Christina Louis PUBLIC SERVICES LIBRARIAN Unavailable [phone] Martin Vazquez MD Primary Care Provider [phone] Reason for Visit * Reason Comments Paroxysmal supraventricular tachycardia Encounter Details Date Type Department Care Team (Late st Contact Info) Description 09/22/2019 2:00 PM CDT Office Visit [facility] Cardiology [address] [facility] [address] [facility] [address] [place] [address] Harpal De León MD [address] [place] [address] Paroxysmal SVT (supraventricular tachycardia) (CMS/HCC) (Primary Dx); Lipid screening Social History Tobacco Use Types Packs/Day Years Used Date Smoking Tobacco: Never Smokeless Tobacco: Never Alcohol Use Standard Drinks/Week Comments Yes 1 (1 standard drink = 0.6 oz pur e alcohol) social Comments No Sex and Gender Information Value Date Recorded Sex Assigned at Not on file Legal Sex Female 3:42 AM CEMENT MASON APPRENTICE Gender Identity Not on file Sexual Orientation Not on file 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 Not on file Not on file documented as of this encounter Last Filed Vital Signs Vital Sign Reading Time Taken Comments Blood Pressure 122/80 09/22/2019 2:13 PM CDT Pulse 58 09/22/2019 2:13 PM CDT Temperature - - Respiratory Rate 16 09/22/2019 2:13 PM CDT Oxygen Saturation 98% 09/22/2019 2:13 PM CDT Inhaled Oxygen Concentration - - Weight 62.1 kg (137 lb) 09/22/2019 2:13 PM CDT Height 160 cm (5' 3 ) 09/22/2019 2:13 PM CDT Body Mass Index 24.27 09/22/2019 2:13 PM CDT documented in this encounter Ordered Prescriptions Prescription Sig Dispense Quantity Refills Last Filled Start Date End Date lisinopriL (PRINIVIL,ZESTRIL) 20 mg tablet Take 2 tablets (40 mg total) by mouth daily 90 tablet 3 09/22/2019 0 documented in this encounter Progress Notes * Harpal De León MD - 09/22/2019 2:00 PM CDT [facility] FOLLOW UP 09/22/2019 Yesika Denney is a 59 y.o. female who presents for follow up of atrial tachycardia. This is a patient that was referred for somewhat unusual automatic atrial tachycardia which was noticed Holter monitor after she was seen by the PCP reporting palpitations. She was placed on a beta-dylan, had the patient on a moderate dose of metoprolol. Her PCP transitioned her to Atenolol between appointment and today. She returns for follow-up today generally feeling well as far as her cardiac rhythm is concerned asmention on recent telephone visit she was concerned about her blood pressure. She has measuring herblood pressure frequently and has systolic pressures that are generally in the 130-140 range and she was happy or when her systolic blood pressure was lower. Previously she was on 40 mg of lisinopriland she would like to increase the dose back to that level. She did discuss this with her PCP who deferred this decision to me. REVIEW OF SYSTEMS General ROS: negative for [...] nausea/vomiting Genito-Urinary ROS: negative for - dysuria, erectile dysfunction or hematuria Musculoskeletal ROS: negative for - joint pain, muscle pain or muscular weakness Dermatological ROS: negative for dry skin, eczema, pruritus and rash HOME MEDICATIONS Current Outpatient Medications: ??? aspirin 81 mg enteric coated tablet, Take 81 mg by mouth 2 (two) times a week, Disp: , Rfl: ??? atenoloL (TENORMIN) 50 mg tablet, , Disp: , Rfl: ??? FLUOXETINE 10 mg capsule, Take 10 mg by mouth daily , Disp: , Rfl: ??? folic acid (FOLVITE) 1 mg tablet, Take 2 tablets (2,000 mcg total) by mouth daily, Disp: 180 tablet, Rfl: 3 ??? hydroxychloroquine (PLAQUENIL) 200 mg tablet, Take 1 tablet (200 mg total) by mouth daily, Disp: 90 tablet, Rfl: 1 ??? lisinopriL (PRINIVIL,ZESTRIL) 20 mg tablet, Take 20 mg by mouth daily , Disp: , Rfl: ??? methotrexate 2.5 mg tablet, Take 8 tablets (20 mg total) by mouth once a week, Disp: 96 tablet,Rfl: 1 ??? sulfaSALAzine EN (AZULFIDINE EN) 500 mg EC tablet, TAKE 1 TABLET TWICE A DAY, Disp: 60 tablet, Rfl: 0 ??? valACYclovir (VALTREX) 500 mg tablet, daily., Disp: , Rfl: LABS AND OTHER DIAGNOSTIC TESTS No results found for: CHOL No results found for: HDL No results found for: LDLCALC No results found for: TRIG No results found for: CHOLHDL Lab Results Component Value Date WBC 4.1 02/28/2019 HGB 12.9 02/28/2019 HCT 38.8 02/28/2019 MCV 102 (H) 02/28/2019 PLT 202 03/16/2018 No lab exists for component: LABALBU PHYSICAL EXAM Vitals BP 122/80 (BP Location: Right arm, Patient Position: Sitting) Pulse 58 Resp 16 Ht 160 cm (5' 3 ) Wt 62.1 kg (137 lb) LMP (LMP Unknown) SpO2 98% BMI 24.27 kg/m?? Physical Examination: General appearance - alert, [...] rashes, no suspicious skin lesions noted ASSESSMENT Yesika was seen today for paroxysmal supraventricular tachycardia. Diagnoses and all orders for this visit: Paroxysmal SVT (supraventricular tachycardia) (CMS/HCC) - POCT lipid panel Lipid screening - POCT lipid panel PLAN/RECOMMENDATIONS Continue atenolol Increase lisinopril to 40 mg per day per the patient's request Follow-up in 6 months Harpal De León MD documented in this encounter Plan of Treatment Not on file documented as of this encounter Procedures Procedure Name Priority Date/Time Associated Diagnosis Comments POCT LIPID PANEL Routine 09/22/2019 2:25 PM CDT Paroxysmal SVT (supraventricular tachycardia) (CMS/HCC) Lipid screening documented in this encounter Results * POCT lipid panel (09/22/2019 2:25 PM CDT) Cholesterol, POC 281 mg/dL HDL, POC 78 mg/dL Triglycerides, POC 188 mg/dL LDL Cholesterol POC 165 mg/dL Chol/HDL Ratio, POC 3.6 Non-HDL Cholesterol, POC 203 mg/dL Cholesterol Total, POC 281 mg/dL Capillary blood 09/22/2019 2 :25 PM CDT us Harpal De León MD POINT OF CARE TEST ORDER JARON Final Result documented in this encounter Visit Diagnoses Diagnosis Paroxysmal SVT (supraventricular tachycardia) (HCC)- Primary Lipid screening Screening for lipoid disorders documented in this encounter Discontinued Medications Medication Sig Discontinue Reason Start Date End Da te atenoloL (TENORMIN) 25 mg tablet Take 1 tablet (25 mg total) by mouth daily Dose adjustment 08/26/2019 09/22/2019 lisinopriL (PRINIVIL,ZESTRIL) 20 mg tablet Take 20 mg by mouth daily 01/14/2019 09/22/2019 documented as of this encounter Historical Medications * This list may reflect changes made after this encounter. Medication Sig Dispense Quantity Refills Last Filled Start D ate End Date atenoloL (TENORMIN) 50 mg tablet 09/17/2019 12/14/2019 added in this encounter Care Teams Game Operator Relationship Specialty Start Date End Date Martin Vazquez MD [address] [place] [address] PCP - General Internal Medicine 01/18/19 01/04/20 Erica Rodrigues MD [address] [facility] [address] [place] [address] Radiation Oncologist Radiation Oncology 10/25/18 Gasper Kaba MD [address] [facility] [address] [place] [address] Surgeon Surgical Oncology 10/25/18 Brandy Aguirre, DRY WALL NAILER [address] [facility] [address] [place] [address] Nurse Practitioner Certified Clinical Nurse Specialist 10/25/18 Jo-Ann Morrow, PhD [address] [facility] [address] [place] [address] Nurse Practitioner Radiation Oncology 10/25/18 Christina Louis, PUBLIC SERVICES LIBRARIAN [address] [facility] [address] [place] [address] Nurse Practitioner Medical Oncology 10/25/18 documented as of this encounter
--- OUTSIDE RECORDS SUMMARY | 2024-04-24 05:55 | XMS_ITS | Encounter Summary ---
Author Organization [facility] Address [address] [place] [address] Care Team Providers Care Road Oiler Name Role Phone Erica Rodrigues MD Unavailable Gasper Kaba MD Unavailable Brandy Aguirre PEANUT BLANCHER Unavailable [phone] Jo-Ann Morrow PhD Unavailable [phone] Christina Louis WEEKEND ANCHOR Unavailable [phone] Sylvia Dawson Primary Care Provider [phone] Reason for Visit * Reason Comments SVT 6 month f/u Encounter Details Date Type Department Care Team (Late st Contact Info) Description 03/13/2020 10:15 AM CHECK GRADER Office Visit [facility] Cardiology [address] [place] [address] Harpal De León MD [address] [place] [address] Atrial tachycardia (CMS/HCC) (Primary Dx) Social History Tobacco Use Types Packs/Day Years Used Date Smoking Tobacco: Never Smokeless Tobacco: Never Alcohol Use Standard Drinks/Week Comments Yes 1 (1 standard drink = 0.6 oz pur e alcohol) social PHQ-2 Answer Date Recorded PHQ-2 Score 0 01/05/2020 Comments No Sex and Gender Information Value Date Recorded Sex Assigned at Not on file Legal Sex Female 3:42 AM CHECK GRADER Gender Identity Not on file Sexual Orientation Not on file 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 Not on file Not on file documented as of this encounter Last Filed Vital Signs Vital Sign Reading Time Taken Comments Blood Pressure 108/64 03/13/2020 10:18 AM CHECK GRADER Pulse 69 03/13/2020 10:18 AM CHECK GRADER Temperature - - Respiratory Rate - - Oxygen Saturation 97% 03/13/2020 10:18 AM CHECK GRADER Inhaled Oxygen Concentration - - Weight 62.7 kg (138 lb 3.2 oz) 03/13/2020 10:18 AM CHECK GRADER Height 157.5 cm (5' 2 ) 03/13/2020 10:18 AM CHECK GRADER Body Mass Index 25.28 03/13/2020 10:18 AM CHECK GRADER documented in this encounter Progress Notes * Harpal De León MD - 03/13/2020 10:15 AM CST [facility] FOLLOW UP 03/13/2020 Yesika Denney is a 59 y.o. female [...] Atenolol between appointment and today. She returns to the office today for scheduled six-month follow-up. Looks a during her last appointment her lisinopril dosage was increased for more blood pressure control. She is doing extremely well and does not have any cardiovascular symptoms or concerns. Her blood pressure looks excellent today. . REVIEW OF SYSTEMS General ROS: negative for [...] 1 tablet (50 mg total) by mouth daily, Disp: 90 tablet, Rfl: 3 ??? FLUoxetine (PROzac) 10 mg tablet/capsule, Take 1 tablet/capsule (10 mg total) by mouth daily, Disp: 90 tablet/capsule, Rfl: 2 ??? FLUoxetine (PROzac) 20 mg capsule, Take 1 capsule (20 mg total) by mouth daily, Disp: 90 capsule, Rfl: 1 ??? folic acid (FOLVITE) 1 mg tablet, Take 2 tablets (2 mg total) by mouth daily, Disp: 60 tablet, Rfl: 0 ??? hydrOXYchloroQUINE (PLAQUENIL) 200 mg tablet, Take 1 tablet (200 mg total) by mouth daily, Disp: 30 tablet, Rfl: 0 ??? lisinopriL (PRINIVIL,ZESTRIL) 40 mg tablet, Take 1 tablet (40 mg total) by mouth daily, Disp: 90 tablet, Rfl: 2 ??? methotrexate 2.5 mg tablet, Take 8 tablets (20 mg total) by mouth once a week, Disp: 96 tablet,Rfl: 1 ??? predniSONE (DELTASONE) 10 mg tablet, , Disp: , Rfl: ??? sulfaSALAzine EN (AZULFIDINE EN) 500 mg EC tablet, Take 1 tablet (500 mg total) by mouth 2 (two) times a day, Disp: 60 tablet, Rfl: 0 ??? valACYclovir (Valtrex) 500 mg tablet, Take 1 tablet (500 mg total) by mouth daily, Disp: 90 tablet, Rfl: 2 LABS AND OTHER DIAGNOSTIC TESTS Lab Results Component Value Date CHOL 252 (H) 02/17/2020 Lab Results Component Value Date HDL 76 02/17/2020 Lab Results Component Value Date LDLCALC 162 (H) 02/17/2020 Lab Results Component Value Date TRIG 81 02/17/2020 No results found for: CHOLHDL Lab Results Component Value Date WBC 3.9 02/17/2020 HGB 12.2 02/17/2020 HCT 36.4 02/17/2020 MCV 100 (H) 02/17/2020 PLT 202 03/16/2018 No lab exists for component: LABALBU PHYSICAL EXAM Vitals LMP (LMP Unknown) Physical Examination: General appearance - alert, well [...] annually or p.r.n. Harpal De León MD K GRADER documented in this encounter Plan of Treatment Not on file documented as of this encounter Visit Diagnoses Diagnosis Atrial tachycardia (HCC)- Primary Other specified cardiac dysrhythmias documented in this encounter Care Teams Road Oiler Relationship Specialty Start Date End Date Sylvia Dawson PA [address] [place] [address] PCP - General Internal Medicine 01/05/20 Erica Rodrigues MD [address] [place] [address] Radiation Oncologist Radiation Oncology 10/25/18 Gasper Kaba MD [address] [place] [address] Surgeon Surgical Oncology 10/25/18 Brandy Aguirre, PEANUT BLANCHER [address] [place] [address] Nurse Practitioner Certified Clinical Nurse Specialist 10/25/18 Jo-Ann Morrow, PhD [address] [place] [address] Nurse Practitioner Radiation Oncology 10/25/18 Christina Louis NP [address] [place] [address] Nurse Practitioner Medical Oncology 10/25/18 documented as of this encounter
--- OUTSIDE RECORDS SUMMARY | 2024-04-24 05:55 | XMS_ITS | Encounter Summary ---
Author Organization [facility] Address [address] [place] [address] Care Team Providers Care Capacitor Pack Press Operator Name Role Phone Erica Rodrigues MD Unavailable Gasper Kaba MD Unavailable [phone] Brandy Aguirre PATTERNMAKER ALL AROUND Unavailable [phone] Jo-Ann Morrow PhD Unavailable [phone] Christina Louis SALON PROFESSIONAL Unavailable [phone] Sylvia Dawson Primary Care Provider [phone] Reason for Visit * Reason Onset Date Comments Covid-19 Home Monitoring 05/11/2020 Encounter Details Date Type Department Care Team (Late st Contact Info) Description 05/11/2020 Telephone [facility] Accountable Care Organization [address] [place] [address] Corinna Carter RN [address] [place] [id number] Covid-19 Home Monitoring Social History Tobacco Use [...] on file Legal Sex Female 3:42 AM CPAS Gender Identity Not on file Sexual Orientation Not on file 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 Discussed taking Tylenol and discussed the daily dosage and max with pt. Discussed cool compresses on head and the importance of staying well hydrated and continuing to get plenty of rest. Pt also reports experiencing amild new cough. Encouraged pt to stay well hydrated with water. Discussed drinking hot tea with lemon and honey. Discussed if cough gets worse or more persistent OTC medications for relief. Pt reports that she does have Delsym at home if needed. Recommended to continue to monitor symptoms and to call provided home monitoring number for any new or worsening symptoms. assessment nurse of each of the following symptoms the patient reported (complete all that apply): - Respiratory Distress: No - Dehydration: No - Fever: Yes, describe: 102.4 F - Chest Pain: No - Other symptoms: No Instructions provided to patient: see above Follow-up Plan Provided to Patient: Continue to Self-Monitor. documented in this encounter Plan of Treatment Not on file documented as of this encounter Visit Diagnoses Not on filedocumented in this encounter Additional Health Concerns Infection Onset Date Last Indicated Resolved Time COVID19 05/08/2020 05/08/2020 05/22/2020 3:07 AM CPAS documented as of this encounter Care Teams Capacitor Pack Press Operator Relationship Specialty Start Date End Date Sylvia Dawson PA [address] [place] [address] PCP - General Internal Medicine 01/05/20 Ercia Rodrigues MD [address] [facility] [facility] [address] [place] [address] Radiation Oncologist Radiation Oncology 10/25/18 Gasper Kaba MD [address] [facility] [address] [place] [address] Surgeon Surgical Oncology 10/25/18 Brandy Aguirre, PATTERNMAKER ALL AROUND [address] [facility] [address] [place] [address] Nurse Practitioner Certified Clinical Nurse Specialist 10/25/18 Jo-Ann Morrow, PhD [address] [facility] [address] [place] [address] Nurse Practitioner Radiation Oncology 10/25/18 Christina Louis, SALON PROFESSIONAL [address] [facility] [address] [place] [address] Nurse Practitioner Medical Oncology 10/25/18 documented as of this encounter
--- OUTSIDE RECORDS SUMMARY | 2024-04-24 05:55 | XMS_ITS | Encounter Summary ---
Author Organization [facility] Address [address] [place] [address] Care Team Providers Care Vascular Nurse Name Role Phone Erica Rodrigues MD Unavailable Gasper Kaba MD Unavailable [phone] Brandy Aguirre ENVIRONMENTAL SCIENCES PROFESSOR Unavailable Jo-Ann Morrow PhD Unavailable [phone] Christina Louis DIGITAL STRATEGY DIRECTOR Unavailable [phone] Martin Vazquez MD Primary Care Provider [phone] Reason for Visit * Reason Comments Follow-up Encounter Details Date Type Department Care Team (Late st Contact Info) Description 11/01/2019 10:45 AM CDT Office Visit [facility] Radiation Oncology [address] 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 Follow up with Brandy Aguirre and Jessie Alcantar as arranged. If you need us in the future you can schedule an appointment please call Lenore Jeronimo MA We know that there are many questions regarding the coronavirus (COVID-19), and the best recommendations in response to it. This is a fluid situation, and one in which recommendations and best practices will likely evolve in the coming days/weeks, if not longer. We recommend the following for all patients: - Stay home when you are sick and avoid contact with those who show signs of illness - Clean and disinfect frequently touched surfaces - Use a tissue to cover your sneeze and cough - Wash your hands often with soap and water, or alcohol-based hand-wide load escort - For the most current and up to date information, we would recommend accessing the following link for the Centers for Disease Control (CDC): www.cdc.gov/coronavirus For patients who have completed radiation therapy and are seeing your radiation oncologist for follow-up: - Your physicians will be reviewing whether he/she thinks it is best for you to keep your scheduledappointments, or whether to reschedule. If your physician feels that it is best to reschedule, his/her team will be in contact with you to assist with rescheduling documented in this encounter Discharge Disposition Disposition Code Departure Means Destination Discharge to home or self care documented in this encounter Progress Notes * Jo-Ann Morrow, PhD - 11/01/2019 10:45 AM CDT Radiation Oncologist: Erica Rodrigues MD Dictating provider: Jo-Ann Morrow PhD Primary Care Physician: Martin Vazquez MD Medical Oncologist: Christina Louis NP Surgeon: Gasper Kaba MD Date of Service: 11/01/2019 RADIATION ONCOLOGY FOLLOW UP NOTE IDENTIFYING DATA: Cancer Staging Malignant neoplasm of central portion of right breast in female, estrogen receptor positive (CMS/HCC) Staging form: Breast, AJCC V7 - Clinical stage from 10/27/2014: Stage IA (T1, N0, M0) - Signed by Jo-Ann Morrow PhD on 10/25/2018 - Pathologic stage from 11/16/2014: Stage IA (T1c, N0, cM0) - Signed by Jo-Ann Morrow PhD on 10/25/2018 Diagnosis Plan 1. History of breast cancer 2. Malignant neoplasm of central portion of right breast in female, estrogen receptor positive (CMS/HCC) IDENTIFYING DATA: 59 y.o. 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 Pathologic stage IA (T1cN0). ER/NM positive, HER2 Gayle non amplified. Status post breast conserving surgery and sentinel lymph node biopsy November 16, 2014. Grade 2 DCIS was present in the specimen with negative surgical margins. She completed right accelerated partial breast radiation therapy January 05, 2015. She initiated adjuvant chemotherapy January 18, 2015which completed March 22, 2015. She was initiated on letrozole, but developed significant flare of her rheumatoid arthritis and the drug was discontinued. She presents the office today for routinefollow-up evaluation. INTERVAL HISTORY: Yesika Denney has been doing well since her last office visit October 26, 2018. She has developed a new medical problems. She has not had surgical intervention since the last office visit. She has noted no changes in her breast, no masses, lesions or lumps. She denies change in nipple or nipple discharge. CURRENT MEDICATIONS: Current Outpatient Medications: ??? aspirin 81 mg [...] ??? lisinopriL (PRINIVIL,ZESTRIL) 20 mg tablet, Take 2 tablets (40 mg total) by mouth daily, Disp: 90 tablet, Rfl: 3 ??? methotrexate 2.5 mg tablet, Take 8 tablets (20 mg total) by mouth once a week, Disp: 96 tablet,Rfl: 1 ??? sulfaSALAzine EN (AZULFIDINE EN) 500 mg EC tablet, TAKE 1 TABLET TWICE A DAY, Disp: 60 tablet, Rfl: 0 ??? valACYclovir (VALTREX) 500 mg tablet, daily., Disp: , Rfl: ALLERGIES: Allergies Allergen Reactions ??? Adhesive Hives ??? Adhesive Tape-Silicones Rash ??? Cyclizine Other (See comments) and Hallucinations Reaction: Urinary retention REVIEW OF SYSTEMS: Except for the symptoms described above, the remainder of the review of systems is negative. Specifically, except as noted, when asked the patient expressed no complaints relative to constitutional (fever, weight loss), eyes, ears, nose, mouth, throat, neurologic, cardiovascular,pulmonary, breast, GI, , skin, musculoskeletal, endocrine, hematologic/lymphatic, or immunologic systems. All other systems negative. PHYSICAL EXAMINATION: Healthy appearing 59 y.o.-year-old White female in no distress. Wt Readings from Last 3 Encounters: 09/22/19 62.1 kg (137 lb) 06/14/19 62.6 kg (138 lb) 03/30/19 62.9 kg (138 lb 9.6 oz) Pain Score and Location 11/01/19 1058 PainSc: 0-No pain Zubrod 0. HEENT: No cervical or supraclavicular adenopathy palpable. Trachea midline neck full range of motion thyroid nonpalpable no bruits noted. Breasts: Right breast: dense scar noted near the surgical cavity. no significant change in skin noted. Otherwise, normal to inspection and palpation. No cervical, supraclavicular or axillary adenopathy palpable. Left breast: no discrete nodules palpable. Otherwise, normal to inspection and palpation. No cervical, supraclavicular or axillary adenopathy palpable. Lungs clear to auscultation. Heart regular rate and rhythm. Abdomen soft, nontender bowel sounds present in all 4 quadrants. No hepatosplenomegaly palpable. No inguinal nodes palpable. No bruits noted. Extremities warm dry no cyanosis clubbing or edema noted. Cosmesis:excellent Skin Toxicity: 0- None Subcutaneous tissue:0- None DIAGNOSTIC REPORTS REVIEWED: Imaging:Bilateral mammogram from this center dated January 19, 2019: Birads category 2: benign. ASSESSMENT: 1. 59 y.o.female 4 years and 10 month(s) following completion of right accelerated partial breast radiation therapy being being evaluated in routine follow up evaluation. 2. ER positive. hormone suppressive therapy has been discontinued due to side effects., . 3. RAD ONC PAIN PLAN: The patient is not currently having any pain that requires changes in pain management. PLAN: 1. I have made no further follow-up arrangements with Mrs. Denney. I will return her care to her primary medical oncology team.. 2. Follow up with CARINA Tyson as previously arranged. 3. Follow up with Christina Louis, Nurse Practitioner as previously arranged. DISEASE STATUS/TOXICITY: Disease Status: Controlled New metachronous cancer?: No metachronous cancer. Jo-Ann Morrow, RN, ANP-BC, PhD Adult Nurse Practitioner Department of radiation oncology Portions of this note were dictated using M*Modal Fluency Direct speech recognition software. Please excuse any scrap breaker errors. Erica Rodrigeus MD Professor clothes wringer, Breast clothes wringer, Hyperthermia [employer] Officer [facility] Radiation Oncology Department of Radiation Oncology [facility] Cosigned by Erica Rodrigues MD at 11/09/2019 9:25 AM CDT documented in this encounter Plan of Treatment Not on file documented as of this encounter Visit Diagnoses Diagnosis History of breast cancer- Primary Personal history of malignant neoplasm of breast Malignant neoplasm of central portion of right breast in female, estrogen receptor positive (HCC) documented in this encounter Care Teams Vascular Nurse Relationship Specialty Start Date End Date Martin Vazquez MD [address] [facility] [address] [place] [address] PCP - General Internal Medicine 01/18/19 01/04/20 Erica Rodrigues MD [address] [place] [address] Radiation Oncologist Radiation Oncology 10/25/18 Gasper Kaba MD [address] [place] [address] Surgeon Surgical Oncology 10/25/18 Brandy Aguirre, ENVIRONMENTAL SCIENCES PROFESSOR [address] [place] [address] Nurse Practitioner Certified Clinical Nurse Specialist 10/25/18 Jo-Ann Morrow, PhD [address] [place] [address] Nurse Practitioner Radiation Oncology 10/25/18 Christina Louis NP [address] [place] [address] Nurse Practitioner Medical Oncology 10/25/18 documented as of this encounter
--- OUTSIDE RECORDS SUMMARY | 2024-04-24 05:55 | XMS_ITS | Encounter Summary ---
Author Organization [facility] Address [address] [place] [address] Phone Care Team Providers Care Watch Inspector Name Role Phone Erica Rodrigues MD Unavailable Gasper Kaba MD Unavailable Brandy Aguirre EARTH MOVER Unavailable [phone] Jo-Ann Morrow PhD Unavailable [phone] CONSTRUCTION INSPECTOR Unavailable [phone] Sylvia Dawson Primary Care Provider [phone] Encounter Details Date Type Department Care Team (Late st Contact Info) Description 03/26/2020 Telephone [facility] Cardiology [address] Advanced Medicine 8th [place] [address] [place] [address] Mali Gonzales, electrolytic de scaler Social History Tobacco Use Types Packs/Day Years Used Date Smoking Tobacco: Never Smokeless Tobacco: Never Alcohol Use Standard Drinks/Week Comments Yes 1 (1 standard drink = 0.6 oz pur e alcohol) social PHQ-2 Answer Date Recorded PHQ-2 Score 0 01/05/2020 Comments No Sex and Gender Information Value Date Recorded Sex Assigned at Not on file Legal Sex Female 3:42 AM CUPOLA OPERATOR INSULATION Gender Identity Not on file Sexual Orientation Not on file 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 BCBS Diagnosis/Reason for Appointment: SUPER VENTRICULAR TACHYCARDIA, SKIPPED BEATS Best Contact Number for Patient: [phone] Who: Primary Care Physician: Sylvia Dawson, Prim Phone: Referring Physician: SELF Ref Phone: If Referring MD is not PCP, list specialty: Yes No If yes, who, phone, when & where? Have you ever seen a Animal Hospital Clerk in an office setting? [x] [] DR TONJA LEBLANC, [facility] , , 03/2020 If yes, is this a heart condition you've had since childhood? [] [x] If yes, where were you treated? Dr. Watts and Dr. Babin patients: Have you had a baby in the last year? [] [] Have you had heart or blood pressure problems during a previous ? [] [] Are you planning on transferring care to a [facility] MD or are you looking for a second opinion on your current diagnosis? [] 2nd Opinion (Appts will be CX if records not received 48hrs prior to appt) []Transferring Care to Congenital Patients Only Date and location of last echo: Dr. Valorie Young Patients Only Hemodialysis or peritoneal dialysis need referral from MD (DO NOT SCHEDULE) Date and location of last renal ultrasound (with doppler or duplex scan): Date and location of last Abd CT Angiogram or Abd MR Angiogram (looks at adrenal glands or blood flow to kidneys): Date and location of last 24-hour Blood Pressure Monitor: Most recent lab work (BMP, Lipids): Patient History Questions Yes No Where/When/Notes Have you ever been diagnosed with or have you ever undergone treatments for cancer? [x] [] If 'Yes', Schedule first available with Dept: 1701; Team: Oncology Cardiology If yes, when and where? [] [] BREAST CANCER, 2015, [facility] Have you had COVID-19? [] [x] If yes, did your cardiac symptoms start after your infection? (if yes, route RRS to Dr. Nikki Peter for review before scheduling.) [] [] Have you been hospitalized at [facility] within the last 3 years? [] [x] If yes, did you see a Animal Hospital Clerk while hospitalized? [] [] Have you EVER been hospitalized for ANY cardiac issue? [] [x] Have you ever had an EKG? [x] [] 05/2019, [facility], [place], [place] Have you ever had a stress test? [] [x] Have you ever had an echo? [x] [] 05/2019, [facility] Have you ever worn a heart monitor at home? [x] [] HOLTER MONITOR, [facility], 06/2019 Have you ever had a Cardiac Cath? [] [x] Have you ever had a Cardiac Surgery (including ablations, cardioversions, CABG, etc.)? [] [x] Have you ever had a sleep study? [] [x] Do you have a device? If yes what type? (Pacemaker, Defibrillator, Implanted Loop Recorder) [] [x] If yes, where and when was device put in? Prenatal Teacher? ([employer], [employer], [employer] [place]) FEMALE PTS: Were any of the tests/procedures completed under a different (maiden) name? If yes, what was it? Notes: Appointment Date: 03/28/2020 Type: IOV Provider: ANJALI Location: [x] Confirm appt date, time, provider and location. [x] Advise pt to arrive 15- 20 min early (30 forSTEFANIE Brown). [x] Advise patient to bring medications/list, photo ID and insurance card [] Advise of New Patient Packet being mailed to them. [] Inform ref MD Office to fax cardiac related records. LA OPERATOR INSULATION LA OPERATOR INSULATION documented in this encounter Plan of Treatment Not on file documented as of this encounter Visit Diagnoses Not on filedocumented in this encounter Care Teams Watch Inspector Relationship Specialty Start Date End Date Sylvia Dawson PA [address] [facility] [place] [address] PCP - General Internal Medicine 01/05/20 Erica Rodrigues MD [address] [place] [address] Radiation Oncologist Radiation Oncology 10/25/18 Gasper Kaba MD [address] [place] [address] Surgeon Surgical Oncology 10/25/18 Brandy Aguirre CNS [address] [place] [address] Nurse Practitioner Certified Clinical Nurse Specialist 10/25/18 Jo-Ann Morrow, PhD [address] [place] [address] Nurse Practitioner Radiation Oncology 10/25/18 Christina Louis, HIGHWAY CONSTRUCTION INSPECTOR [address] [place] [address] Nurse Practitioner Medical Oncology 10/25/18 documented as of this encounter
--- OUTSIDE RECORDS SUMMARY | 2024-04-24 05:55 | XMS_ITS | Encounter Summary ---
Author Organization [facility] Address [address] [place] [address] Care Team Providers Care Livestock Caretaker Name Role Phone Erica Rodrigues MD Unavailable Gasper Kaba MD Unavailable Brandy Aguirre MACHINERY ENGINEER Unavailable [phone] Jo-Ann Morrow PhD Unavailable [phone] Christina Louis FLIGHT RADIO OPERATOR Unavailable [phone] Sylvia Dawson Primary Care Provider [phone] Reason for Visit * Reason Onset Date Comments Covid-19 Home Monitoring 05/13/2020 RN Surv ey Escalation Encounter Details Date Type Department Care Team (Late st Contact Info) Description 05/13/2020 Telephone [facility] Accountable Care Organization [address] [place] [address] Marley Aguilar RN [address] [place] [address] [address] [place] [address] Covid-19 Home Monitoring (RN Survey Escalation) Social History Tobacco Use Types Packs/Day Years [...] on file Legal Sex Female 3:42 AM FRAME CLEANER Gender Identity Not on file Sexual Orientation Not on file 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 Patient is taking tylenol and delsym. Pt is eating and drinking and trying to stay hydrated. cutting torch operator of each of the following symptoms the patient reported (complete all that apply): - Respiratory Distress: No - Dehydration: No - Fever: Yes, describe: 100.9 - Chest Pain: No - Other symptoms: Yes, describe: see above Instructions provided to patient: Provided COVID home monitoring hotline number for questions, needs or worsening symptoms. Encouraged hydration. Follow-up Plan Provided to Patient: Continue to Self-Monitor. E CLEANER * Telephone Encounter - Marley Aguilar RN - 05/13/2020 12:00 PM CST COVID Home Monitoring Unable to Reach Called patient for home monitoring follow-up of reported symptoms. Unable to reach patient. Patient will receive follow up call today. E CLEANER documented in this encounter Plan of Treatment Not on file documented as of this encounter Visit Diagnoses Not on filedocumented in this encounter Additional Health Concerns Infection Onset Date Last Indicated Resolved Time COVID19 05/08/2020 05/08/2020 05/22/2020 3:07 AM FRAME CLEANER documented as of this encounter Care Teams Livestock Caretaker Relationship Specialty Start Date End Date Sylvia Dawson PA [address] [place] [address] PCP - General Internal Medicine 01/05/20 Erica Rodrigues MD [address] [place] [address] Radiation Oncologist Radiation Oncology 10/25/18 Gasper Kaba MD [address] [place] [address] Surgeon Surgical Oncology 10/25/18 Brandy Aguirre, MACHINERY ENGINEER [address] [place] [address] Nurse Practitioner Certified Clinical Nurse Specialist 10/25/18 Jo-Ann Morrow, PhD [address] [place] [address] Nurse Practitioner Radiation Oncology 10/25/18 Christina Louis FLIGHT RADIO OPERATOR [address] [place] [address] Nurse Practitioner Medical Oncology 10/25/18 documented as of this encounter
--- OUTSIDE RECORDS SUMMARY | 2024-04-24 05:55 | XMS_ITS | Encounter Summary ---
Author Organization [facility] Address [address] [place] [address] Care Team Providers Care Human Resources Hr Generalist Name Role Phone Erica Rodrigues MD Unavailable Gasper Kaba MD Unavailable Brandy Aguirre BORING MILL SET UP OPERATOR VERTICAL Unavailable [phone] Jo-Ann Morrow PhD Unavailable [phone] Christina Louis COMMUNITY ORGANIZER Unavailable [phone] Danii Dawson Primary Care Provider [phone] Encounter Details Date Type Department Care Team (Late st Contact Info) Description 05/08/2020 Orders Only [facility] Testing Site - [facility]. 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 Class: Internal Referral Ordering User: Danii Dawson PA Auth Provider: DANII DAWSON Enc Provider: Danii Dawson PA Diagnosis: Fever, unspecified fever cause Department: [facility] Instruct: ?? Comment: ?? Order Specific Questions Question Answer Comment Testing types: Symptomatic without high risk condition ?? Date of symptom onset 05/06/2020 ?? Testing site patient will be sent to: [facility] ?? Date testing requested: 05/08/2020 ?? Testing: COVID-RNA ?? Is this the first COVID-19 test for this patient? Yes ?? Does the patient currently work in a healthcare facility with direct patient contact? No ?? Is the patient a resident of a congregate care or living setting? No ?? Is the patient ? No ?? Please select the performing region: [facility] BILITATION SUPERVISOR documented in this encounter Plan of Treatment Not on file documented as of this encounter Procedures Procedure Name Priority Date/Time Associated Diagnosis Comments COVID-19 ORONAVIRUS RNA (OUTSIDE LABS) Routine 05/08/2020 9:14 AM REHABILITATION SUPERVISOR Exposure to SARS-associated coronavirus documented in this encounter Results * (ABNORMAL) COVID-19 CORONAVIRUS RNA (OUTSIDE LABS) Nasopharyngeal (05/08/2020 9:14 AM REHABILITATION SUPERVISOR) COVID-19 Coronavirus RNA DETECTED( A) NOT DETECTED [facility] Comment: ?? A Detected result is considered a positive test result for COVID-19. ??This indicates that RNA from SARS-CoV-2 (formerly 2019-nCoV) was detected, and the patient is infected with the virus and presumed to be contagious. If requested by public health authority, specimen will be sent for additional testing. Please review the Fact Sheets and FDA authorized labeling available for health care providers and patients using the following websites: https://www.HobbyTalk.[employer] [facility]/home/Covid-19/HCP/Quest[facility]/fact- sheet.html https://www.[employer]Talk.[employer]/home/Covid-19/Patients/ Quest[facility]/fact-sheet.html This test has been authorized by the FDA under an Emergency Use Authorization (EUA) for use by authorized laboratories. Due to the current public health emergency, [facility] is receiving a high volume of samples from a wide variety of swabs and media for COVID-19 testing. In order to serve patients during this public health crisis, samples from appropriate clinical sources are being tested. Negative test results derived from specimens received in non-commercially manufactured viral collection and transport media, or in media and sample collection kits not yet authorized by FDA for COVID-19 testing should be cautiously evaluated and the patient potentially subjected to extra precautions such as additional clinical monitoring, including collection of an additional specimen. Methodology: ??Nucleic Acid Amplification Test (NAAT) includes RT-PCR or TMA ?? Additional information about COVID-19 can be found at the [facility] website: www.Innoz.[employer] [facility]/Covid19. Nasopharyngeal 05/08/2020 9: 14 AM REHABILITATION SUPERVISOR 05/09/2020 3:25 AM REHABILITATION SUPERVISOR [facility] MICROBIOLOGY - GENERAL ORDERABLES Final Result [facility] [address] [id number] documented in this encounter Visit Diagnoses Diagnosis Exposure to SARS-associated coronavirus- Primary documented in this encounter Additional Health Concerns Infection Onset Date Last Indicated Resolved Time COVID: Suspected 05/08/2020 05/08/2020 05/09/2020 11:35 PM REHABILITATION SUPERVISOR documented as of this encounter Care Teams Human Resources Hr Generalist Relationship Specialty Start Date End Date Danii Dawson PA [address] [place] [address] PCP - General Internal Medicine 01/05/20 Erica Rodrigues MD [address] [place] [address] Radiation Oncologist Radiation Oncology 10/25/18 Gasper Kaba MD [address] [place] [address] Surgeon Surgical Oncology 10/25/18 Brandy Aguirre CNS [address] [place] [address] Nurse Practitioner Certified Clinical Nurse Specialist 10/25/18 Jo-Ann Morrow, PhD [address] [place] [address] Nurse Practitioner Radiation Oncology 10/25/18 Christina Louis COMMUNITY ORGANIZER [address] [place] [address] Nurse Practitioner Medical Oncology 10/25/18 documented as of this encounter
--- OUTSIDE RECORDS SUMMARY | 2024-04-24 05:55 | XMS_ITS | Encounter Summary ---
Author Organization [facility] Address [address] [place] [address] Care Team Providers Care Railcar Mechanic Name Role Phone Erica Rodrigues MD Unavailable Gasper Kaba MD Unavailable [phone] Brandy Aguirre RELATIONS LIAISON Unavailable [phone] Jo-Ann oMrrow PhD Unavailable [phone] Christina Louis HL7 DEVELOPER Unavailable [phone] Martin Vazquez MD Primary Care Provider Encounter Details Date Type Department Care Team (Late st Contact Info) Description 12/14/2019 Telephone [facility] Cardiology [address] [facility] [address] [facility] [address] [place] [address] Harpal De León MD [address] [facility] [address] [place] [address] Social History Tobacco Use Types Packs/Day Years Used Date Smoking Tobacco: Never Smokeless Tobacco: Never Alcohol Use Standard Drinks/Week Comments Yes 1 (1 standard drink = 0.6 oz pur e alcohol) social Comments No Sex and Gender Information Value Date Recorded Sex Assigned at Not on file Legal Sex Female 3:42 AM HOSPITALITY HOST Gender Identity Not on file Sexual Orientation [...] total) by mouth daily 90 tablet 3 12/14/2019 06/04/2020 documented in this encounter Miscellaneous Notes * Telephone Encounter - Corinna James RN - 12/14/2019 3:36 PM CDT Rx sent as requested. * Telephone Encounter - Vivien Kaba - 12/14/2019 2:38 PM CDT Patient/and or Pharmacy calling to request prescription on the following medications: atenolol 50 mg tabs. Pharmacy: [facility] documented in this encounter Plan of Treatment Not on file documented as of this encounter Visit Diagnoses Not on filedocumented in this encounter Discontinued Medications Medication Sig Discontinue Reason Start Date End Da te atenoloL (TENORMIN) 50 mg tablet Reorder 09/17/2019 12/14/2019 documented as of this encounter Care Teams Railcar Mechanic Relationship Specialty Start Date End Date Martin Vazquez MD [address] [address] PCP - General Internal Medicine 01/18/19 01/04/20 Erica Rodrigues MD [address] [facility] [address] [place] [address] Radiation Oncologist Radiation Oncology 10/25/18 Gasper Kaba MD [address] [facility] [address] [place] [address] Surgeon Surgical Oncology 10/25/18 Brandy Aguirre CNS [address] [facility] [address] [place] [address] Nurse Practitioner Certified Clinical Nurse Specialist 10/25/18 Jo-Ann Morrow, PhD [address] [address] [place] [address] Nurse Practitioner Radiation Oncology 10/25/18 Christina Louis NP [address] [facility] [address] [place] [address] Nurse Practitioner Medical Oncology 10/25/18 documented as of this encounter
--- OUTSIDE RECORDS SUMMARY | 2024-04-24 05:55 | XMS_ITS | Encounter Summary ---
Author Organization [facility] Address [address] [place] [address] Care Team Providers Care Rivet Hammer Machine Operator Name Role Phone Erica Rodrigues MD Unavailable Gasper Kaba MD Unavailable Brandy Aguirre CORPORATE CONTROLLER Unavailable [phone] Jo-Ann Morrow PhD Unavailable [phone] Christina Louis BIN CLEANER Unavailable [phone] Sylvia Dawson Primary Care Provider [phone] Reason for Visit * Reason Comments New Patient Encounter Details Date Type Department Care Team (Late st Contact Info) Description 01/05/2020 10:00 AM CDT Office Visit [facility] Family Medicine [address] [place] [address] Sylvia Dawson PA [address] [place] [address] Chronic right shoulder pain (Primary Dx); Rheumatoid arthritis with negative rheumatoid factor (CMS/HCC); Mixed hyperlipidemia; Diabetes mellitus screening; Colon cancer screening; Other fatigue; Lumbar back pain; BMI 24.0-24.9, adult; Need for immunization against influenza; History of breast cancer Social History Tobacco [...] on file Legal Sex Female 3:42 AM GOSPEL SINGER Gender Identity Not on file Sexual Orientation Not on file 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 on file Not on file Not on file documented as of this encounter Last Filed Vital Signs Vital Sign Reading Time Taken Comments Blood Pressure 112/70 01/05/2020 10:33 AM CDT Pulse 71 01/05/2020 10:33 AM CDT Temperature 36.4 ??C (97.5 ??F) 01/05/2020 1 0:33 AM CDT Respiratory Rate - - Oxygen Saturation 98% 01/05/2020 10: 33 AM CDT Inhaled Oxygen Concentration - - Weight 62.1 kg (136 lb 14.4 oz) 020 10:33 AM CDT Height 159 cm (5' 2.6 ) 01/05/2020 10:3 3 AM CDT Body Mass Index 24.56 01/05/2020 10:33 AM CDT documented in this encounter Patient Instructions * Patient Instructions* Sylvia Dawson PA - 01/05/2020 10:00 AM CDT Call your insurance regarding Shingrix Coverage (85363). Ask should you get it in the office or at the pharmacy for the best coverage. Check with your Couples Therapist for Shingrix and Tdap ok documented in this encounter Ordered Prescriptions Prescription Sig Dispense Quantity Refills Last Filled Start Date End Date lisinopriL (PRINIVIL,ZESTRIL) 40 mg tablet Take 1 tablet (40 mg total) by mouth daily 90 tablet 2 01/05/2020 1 valACYclovir (Valtrex) 500 mg tablet Take 1 tablet (500 mg total) by mouth daily 90 tablet 2 01/05/2020 1 FLUoxetine (PROzac) 20 mg capsule Take 1 capsule (20 mg total) by mouth daily 90 capsule 1 01/05/2020 1 FLUoxetine (PROzac) 10 mg tablet/capsule Take 1 tablet/capsul e (10 mg total) by mouth daily 90 tablet/capsule 2 01/05/2020 1 documented in this encounter Progress Notes * Sylvia Dawson PA - 01/05/2020 10:00 AM CDT Images from the original note were not included. Subjective/Objective Patient ID: Yesika Denney is a 59 y.o. female. Chief Complaint New Patient HPI Pateint presents to establish care. [place] Dr. [place]. Wanted to have a [facility] provider. RA -- Rheumatology - Dr. Martinez MTX Sulfasalzine Plaquenil Uses prn Prednisone for flairs. F.u in February. Left thyroid cyst -- 1997 Benign. TSH levels have been stable. Dr. Benitez - Cardio HTN-Lisinopril/tenormin Mood - stable with Prozac 20mg. Coldsores -- Using the daily valtrex for prevention with occasional darien if outbreaks. Pt has noted increased right hip/back and right shoulder pain. Was told bursitis. NSAIDs help at times. History of breast cancer -- 2014 -- Brandy Aguirre BIN CLEANER---[facility] Arimedex for a few months as triggered the RA. Colonoscopy -- [place] -->2009 Normal per patient. History of episodes of diarrhea and anal spasms. Ready to repeat colonsocopy Tdap - unknown Needs flu vaccine. Review of Systems Constitutional: Negative for fever. HENT: Negative for ear pain. Eyes: Negative for redness. Respiratory: Negative for cough and shortness of breath. Cardiovascular: Negative for chest pain and leg swelling. Gastrointestinal: Negative for constipation, diarrhea, nausea and vomiting. Genitourinary: Negative for difficulty urinating. Musculoskeletal: Negative for myalgias. Skin: Negative for rash. Neurological: Negative for speech difficulty and headaches. Hematological: Does not bruise/bleed easily. Psychiatric/Behavioral: Negative for sleep disturbance. Vitals: 01/05/20 1033 BP: 112/70 BP Location: Left arm Patient Position: Sitting Pulse: 71 Temp: 36.4 ??C (97.5 ??F) SpO2: 98% Weight: 62.1 kg (136 lb 14.4 oz) Height: 159 cm (5' 2.6 ) Physical Exam Vitals signs and nursing note reviewed. Constitutional: Appearance: She is well-developed. HENT: Head: Normocephalic and atraumatic. Eyes: Comments: Pupils equal Neck: Thyroid: No thyromegaly. Cardiovascular: Rate and Rhythm: Normal rate and regular rhythm. Heart sounds: No murmur. Pulmonary: Effort: Pulmonary effort is normal. Breath sounds: Normal breath sounds. Abdominal: Palpations: Abdomen is soft. Tenderness: There is no abdominal tenderness. Musculoskeletal: Normal range of motion. Skin: General: Skin is warm and dry. Neurological: Mental Status: She is alert and oriented to person, place, and time. Assessment/Plan Diagnoses and all orders for this visit: Chronic right shoulder pain (M25.511, G89.29) (Primary) Assessment & Plan: Persistent pain in shoulder and back/hips. Will send to PT and see if helps. May also consider Orthp/pain for injections if her Rheum doesn't do it. Orders: - Ambulatory referral order to Physical Therapy -; Future Rheumatoid arthritis with negative rheumatoid factor ([facility]) (M06.00) Assessment & Plan: Continue per Rheumatology Orders: - Ambulatory referral order to Physical Therapy -; Future Mixed hyperlipidemia (E78.2) Assessment & Plan: Encouraged patient to continue low fat/low chol diet. Continue exercise. Increase good fats in the diet. Monitor labs as needed. Check labs Orders: - Comprehensive metabolic panel; Future - Lipid panel; Future Diabetes mellitus screening (Z13.1) Assessment & Plan: Check labs Orders: - Hemoglobin A1c; Future Colon cancer screening (Z12.11) Assessment & Plan: Refer to GI for colon cancer screening Orders: - Ambulatory referral to Gastroenterology; Future Other fatigue (R53.83) Assessment & Plan: Probably multifactorial. Check labs and followup to re-evaluate Orders: - Lipid panel; Future - TSH; Future Lumbar back pain (M54.5) Assessment & Plan: Encouraged NSAIDS (if able to safely tolerate) or Tylenol. Topical preparations like Lidocaine patches, Biofreeze, ICYHOT etc as needed. Heat, stretching Avoid long periods of sitting/laying. Encouraged PT. Followup if has any problems controlling bowels or bladder or if sxs worsen. Orders: - Ambulatory referral order to Physical Therapy -; Future BMI 24.0-24.9, adult (Z68.24) Assessment & Plan: Continue healthy lifestyle to continue healthy weight Need for immunization against influenza (Z23) Assessment & Plan: Updated in office History of breast cancer (Z85.3) Assessment & Plan: Continue per ONC Other orders - FLUoxetine (PROzac) 10 mg tablet/capsule; Take 1 tablet/capsule (10 mg total) by mouth daily - FLUoxetine (PROzac) 20 mg capsule; Take 1 capsule (20 mg total) by mouth daily - valACYclovir (Valtrex) 500 mg tablet; Take 1 tablet (500 mg total) by mouth daily - lisinopriL (PRINIVIL,ZESTRIL) 40 mg tablet; Take 1 tablet (40 mg total) by mouth daily - Flu Vaccine Quad PF 6m+ IM - Fluarix / FluLaval / Afluria Sylvia Dawson PA-C Cosigned by Mark Gonzalez MD at 01/08/2020 9:50 PM CDT documented in this encounter Miscellaneous Notes * Assessment & Plan Note - Sylvia Dawson PA - 01/06/2020 9:59 PM CDT Associated Problem(s): Other fatigue (Resolved 06/04/2020) Probably multifactorial. Check labs and followup to re-evaluate * Assessment & Plan Note - Sylvia Dawson PA - 01/06/2020 9:58 PM CDT Associated Problem(s): Need for immunization against influenza (Resolved 08/26/2021) Updated in office * Assessment & Plan Note - Sylvia Dawson PA - 01/06/2020 9:58 PM CDT Associated Problem(s): Diabetes mellitus screening (Resolved 02/26/2020) Check labs * Assessment & Plan Note - Sylvia Dawson PA - 01/06/2020 9:58 PM CDT Associated Problem(s): Colon cancer screening (Resolved 08/26/2021) Refer to GI for colon cancer screening * Assessment & Plan Note - Sylvia Dawson PA - 01/06/2020 9:58 PM CDT Associated Problem(s): Mixed hyperlipidemia Encouraged patient to continue low fat/low chol diet. Continue exercise. Increase good fats in the diet. Monitor labs as needed. Check labs * Assessment & Plan Note - Sylvia Dawson PA - 01/06/2020 9:57 PM CDT Associated Problem(s): Lumbar back pain Encouraged NSAIDS (if able to safely tolerate) or Tylenol. Topical preparations like Lidocaine patches, Biofreeze, ICYHOT etc as needed. Heat, stretching Avoid long periods of sitting/laying. Encouraged PT. Followup if has any problems controlling bowels or bladder or if sxs worsen. * Assessment & Plan Note - Sylvia Dawson PA - 01/06/2020 9:57 PM CDT Associated Problem(s): Chronic right shoulder pain (Resolved 08/26/2021) Persistent pain in shoulder and back/hips. Will send to PT and see if helps. May also consider Orthp/pain for injections if her Rheum doesn't do it. * Assessment & Plan Note - Sylvia Dawson PA - 01/06/2020 9:55 PM CDT Associated Problem(s): History of breast cancer Continue per ONC * Assessment & Plan Note - Sylvia Dawson PA - 01/06/2020 9:55 PM CDT Associated Problem(s): Annual physical exam (Resolved 05/30/2020) Encouraged healthy lifestyle, good nutrition and exercise. Encouraged Calcium and Vitamin D and weight bearing exercise for bone health. Reviewed immunizations Reviewed age appropirate screenings. * Assessment & Plan Note - Sylvia Dawson PA - 01/06/2020 9:55 PM CDT Associated Problem(s): Rheumatoid arthritis with negative rheumatoid factor (HCC) Continue per Rheumatology * Assessment & Plan Note - Brandi Hernandez MA - 01/05/2020 10:36 AM CDT Associated Problem(s): BMI 25.0-25.9,adult (Resolved 06/04/2020) Continue healthy lifestyle to continue healthy weight documented in this encounter Plan of Treatment Scheduled Orders Name Type Priority Associated Diagnoses Orde r Schedule Comprehensive metabolic panel Lab Routine Mixed hyperlipidemia Expected: 01/05/2020, Expires: 01/04/2021 Lipid panel Lab Routine Other fatigue Mixed hyperlipidemia Expected: 01/04/2021, Expires: 01/04/2021 documented as of this encounter Procedures Procedure Name Priority Date/Time Associated Diagnosis Comments TSH Routine 02/17/2020 12:50 PM GOSPEL SINGER Other fatigue HEMOGLOBIN A1C Routine 02/17/2020 12:50 PM GOSPEL SINGER Diabetes mellitus screening LIPID PANEL Routine 02/17/2020 12:50 PM GOSPEL SINGER documented in this encounter Results * (ABNORMAL) Lipid panel (02/17/2020 12:50 PM GOSPEL SINGER) Cholesterol 252(H) 100 - 199 mg/dL [facility] - 01 Triglycerides 81 0 - 149 mg/dL [facility] - 01 HDL Cholesterol 76 >39 mg/dL [facility] - 01 VLDL 14 5 - 40 mg/dL [facility] - 01 LDL, calculated 162(H) 0 - 99 mg/dL [facility] - 01 02/17/2020 12:5 0 PM GOSPEL SINGER 02/17/2020 Narrative [facility] - 02/18/2020 7:36 AM GOSPEL SINGER Performed at: ??01 - [facility] [address] ??[id number] Male Model: John Lozoya PhD, Phone: ??[phone] Sylvia JONES LAB BLOOD ORDERABLES Final Result [facility] - 01 * TSH (02/17/2020 12:50 PM GOSPEL SINGER) TSH 1.850 0.450 - 4.500 uIU/mL [facility] - 01 Blood specimen (specimen) 02/17/2020 12:50 PM GOSPEL SINGER 02/17/2020 Narrative [facility] - 02/18/2020 7:36 AM GOSPEL SINGER Performed at: ??01 - [facility] [address] ??[id number] Male Model: John Lozoya PhD, Phone: ??[phone] Sylvia JONES LAB BLOOD ORDERABLES Final Result [facility] - 01 * Hemoglobin A1c (02/17/2020 12:50 PM GOSPEL SINGER) Hgb A1C 5.1 4.8 - 5.6 % [facility] - 01 Comment: ? Prediabetes: 5.7 - 6.4 ? Diabetes: >6.4 ? Glycemic control for adults with diabetes: <7.0 Blood specimen (specimen) 02/17/2020 12:50 PM GOSPEL SINGER 02/17/2020 Narrative [facility] - 02/18/2020 7:36 AM GOSPEL SINGER Performed at: ??01 - [facility] ??[id number] Male Model: John Lozoya PhD, Phone: ??[phone] Sylvia JONES LAB BLOOD ORDERABLES Final Result Performing Organization Address [facility] Co de Phone Number [facility] - 01 documented in this encounter Visit Diagnoses Diagnosis Chronic right shoulder pain- Primary Pain in joint, shoulder region Rheumatoid arthritis with negative rheumatoid factor (HCC) Mixed hyperlipidemia Diabetes mellitus screening Screening for diabetes mellitus Colon cancer screening Special screening for malignant neoplasms, colon Other fatigue Lumbar back pain Lumbago BMI 24.0-24.9, adult Need for immunization against influenza Need for prophylactic vaccination and inoculation against influenza History of breast cancer Personal history of malignant neoplasm of breast documented in this encounter Discontinued Medications Medication Sig Discontinue Reason Start Date End Da te FLUOXETINE 10 mg capsule Take 20 mg by mouth daily Dose adjustment 01/14/2019 01/05/2020 lisinopriL (PRINIVIL,ZESTRIL) 20 mg tablet Take 2 tablets (40 mg total) by mouth daily Dose adjustment 09/22/2019 01/05/2020 valACYclovir (VALTREX) 500 mg tablet daily. Reorder 01/05/2020 FLUoxetine (PROzac) 20 mg capsule Reorder 12/05/2019 01/05/2020 lisinopriL (PRINIVIL,ZESTRIL) 40 mg tablet Reorder 01/05/2020 01/05/2020 documented as of this encounter Historical Medications * This list may reflect changes made after this encounter. Medication Sig Dispense Quantity Refills Last Filled Start D ate End Date lisinopriL (PRINIVIL,ZESTRIL) 40 mg tablet 01/05/2020 01/05/2020 FLUoxetine (PROzac) 20 mg capsule 12/05/2019 01/05/2020 predniSONE (DELTASONE) 10 mg tablet 11/10/2019 08/19/2021 added in this encounter Orders Immunization/Injection Count Last Ordered Date First Ordered Date FLU VACCINE QUAD PF 6M+ IM - FLUARIX / FLULAVAL / AFLURIA 1 01/05/2020 documented in this encounter Care Teams Rivet Hammer Machine Operator Relationship Specialty Start Date End Date Sylvia Dawson PA [address] [place] [address] PCP - General Internal Medicine 01/05/20 Erica Rodrigues MD [address] [facility] [address] [place] [address] Radiation Oncologist Radiation Oncology 10/25/18 Gasper Kaba MD [address] [facility] [address] [place] [address] Surgeon Surgical Oncology 10/25/18 Brandy Aguirre, CORPORATE CONTROLLER [address] [facility] [address] [place] [address] Nurse Practitioner Certified Clinical Nurse Specialist 10/25/18 Jo-Ann Morrow, PhD [address] [facility] [address] [place] [address] Nurse Practitioner Radiation Oncology 10/25/18 Christina Louis NP [address] [facility] [address] [place] [address] Nurse Practitioner Medical Oncology 10/25/18 documented as of this encounter
--- OUTSIDE RECORDS SUMMARY | 2024-04-24 05:55 | XMS_ITS | Encounter Summary ---
Author Organization [facility] Address [address] [place] [address] Care Team Providers Care Triple Drum Operator Name Role Phone Erica Rodrigues MD Unavailable Gasper Kaba MD Unavailable Brandy Aguirre CONTINUOUS DRYOUT OPERATOR Unavailable [phone] Jo-Ann Morrow PhD Unavailable [phone] Christina Louis CRYSTAL GAZER Unavailable [phone] Sylvia Dawson Primary Care Provider [phone] Encounter Details Date Type Department Care Team (Late st Contact Info) Description 03/06/2020 Orders Only [facility] Information Management [address] [place] [address] Scanning, Provider Social History Tobacco Use Types [...] on file Legal Sex Female 3:42 AM PATROL COMMANDER Gender Identity Not on file Sexual Orientation Not on file 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 Not on file Not on file documented as of this encounter Plan of Treatment Not on file documented as of this encounter Procedures Procedure Name Priority Date/Time Associated Diagnosis Comments GI - RESULT 03/06/2020 documented in this encounter Results * GI - RESULT (03/06/2020) Anatomical Region Laterality Modality Other us Provider Scanning Edited Result - Final documented in this encounter Visit Diagnoses Not on filedocumented in this encounter Additional Health Concerns Infection Onset Date Last Indicated Resolved Time COVID: Suspected 05/08/2020 05/08/2020 05/09/2020 11:35 PM PATROL COMMANDER COVID19 05/08/2020 05/08/2020 05/22/2020 3:07 AM PATROL COMMANDER COVID: Recovered Comment:Added based on recent COVID infection. 05/22/2020 05/26/2020 09/19/2020 3:05 AM C DT documented as of this encounter Care Teams Triple Drum Operator Relationship Specialty Start Date End Date Sylvia Dawson PA [address] [address] [place] [address] PCP - General Internal Medicine 01/05/20 Erica Rodrigues MD [address] [facility] [address] [place] [address] Radiation Oncologist Radiation Oncology 10/25/18 Gasper Kaba MD [address] [facility] [address] [place] [address] Surgeon Surgical Oncology 10/25/18 Brandy Aguirre CNS [address] [facility] [address] [place] [address] Nurse Practitioner Certified Clinical Nurse Specialist 10/25/18 Jo-Ann Morrow, PhD [address] [facility] [address] [place] [address] Nurse Practitioner Radiation Oncology 10/25/18 Christina Louis, CRYSTAL GAZER [address] [facility] [address] [place] [address] Nurse Practitioner Medical Oncology 10/25/18 documented as of this encounter
--- OUTSIDE RECORDS SUMMARY | 2024-04-24 05:55 | XMS_ITS | Encounter Summary ---
Author Organization [facility] Address [address] [place] [address] Care Team Providers Care Manager Mba Name Role Phone Erica Rodrigues MD Unavailable Gasper Kaba MD Unavailable Brandy Aguirre RESEARCH INSTRUCTOR Unavailable Jo-Ann Morrow PhD Unavailable [phone] Christina Louis FILTER HELPER Unavailable [phone] Sylvia Dawson Primary Care Provider [phone] Reason for Visit * Reason Comments COVID-19 EVALUATION Encounter Details Date Type Department Care Team (Late st Contact Info) Description 05/07/2020 4:45 PM CORE CUTTER AND REAMER Telemedicine [facility] Family Medicine [address] [place] [address] Sylvia Dawson PA [address] [place] [address] Fever, unspecified fever cause (Primary Dx) Social History Tobacco Use Types [...] on file Legal Sex Female 3:42 AM CORE CUTTER AND REAMER Gender Identity Not on file Sexual Orientation Not on file 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 Subjective/Objective Patient ID: Yesika Denney is a 59 y.o. female. Chief Complaint COVID-19 EVALUATION HPI This was a telemedicine visit with the patient which took place via real-time video connection withReviewZAP or PredPol. During the visit, I was located in my [place], [place] office and the patientwas located at home in the [facility]. The patient visit started at 4:55 and ended at 5:08pm. This reflects the time spent in medical discussion. The patient has been informed that the visit may not be secure and acknowledged the information. I have explained the option of participating in a telephone or video visit during the COVID-19 public health emergency to the patient. After being given an opportunity to ask questions about and discuss this type of visit, the patient verbally consented to proceeding with the telephone/video visit.The patient understands that this service replaces an office visit and they may be billed and/or responsible for any applicable copayments. 05/06 noted aches and fever (100.4) Minimal cough/PND Little sore throat Ears with pressure Still has taste and smell No respiratory distress. Review of Systems Constitutional: Negative for fever. Respiratory: Negative for cough and chest tightness. Cardiovascular: Negative for chest pain. Gastrointestinal: Negative for abdominal pain. There were no vitals filed for this visit. Physical Exam Vitals signs and nursing note reviewed. Constitutional: Appearance: Normal appearance. HENT: Head: Normocephalic and atraumatic. Eyes: Comments: Pupils are equal Pulmonary: Effort: Pulmonary effort is normal. Skin: General: Skin is dry. Neurological: Mental Status: She is alert. Psychiatric: Mood and Affect: Mood normal. Assessment/Plan Diagnoses and all orders for this visit: Fever, unspecified fever cause (R50.9) (Primary) Assessment & Plan: Patient to presume positive COVID until results are available and self isolate for 10 days from theonset of sxs. Check COVID test thru [facility] collection site in [place]. Treat sxs with Tylenol, Cough/cold medication otc [...] water often. If needed, use a hand bindery technician that contains at least 60% alcohol. ?? Clean and disinfect frequently touched surfaces such as tables, doorknobs, countertops, etc daily. ?? Avoid touching your eyes, nose, and mouth when possible. Orders: - Request for Ambulatory Collection Site Testing - Adult; Future Sylvia Dawson PA-C CUTTER AND REAMER documented in this encounter Miscellaneous Notes * Assessment & Plan Note - Sylvia Dawson PA - 05/12/2020 9:36 PM CORE CUTTER AND REAMER Associated Problem(s): Fever (Resolved 03/01/2022) Patient to presume positive COVID until results are available and self isolate for 10 days from theonset of sxs. Check COVID test thru [facility] collection site in [place]. Treat sxs with Tylenol, Cough/cold medication otc [...] water often. If needed, use a hand bindery technician that contains at least 60% alcohol. ?? Clean and disinfect frequently touched surfaces such as tables, doorknobs, countertops, etc daily. ?? Avoid touching your eyes, nose, and mouth when possible. CUTTER AND REAMER documented in this encounter Plan of Treatment Not on file documented as of this encounter Visit Diagnoses Diagnosis Fever, unspecified fever cause- Primary documented in this encounter Discontinued Medications Medication Sig Discontinue Reason Start Date End Da te sulfaSALAzine EN (AZULFIDINE EN) 500 mg EC tablet Take 1 tablet (500 mg total) by mouth 2 (two) times a day 03/15/2020 05/12/2020 documented as of this encounter Care Teams Manager Mba Relationship Specialty Start Date End Date Sylvia Dawson PA [address] [place] [address] PCP - General Internal Medicine 01/05/20 Erica Rodrigues MD [address] [place] [address] Radiation Oncologist Radiation Oncology 10/25/18 Gasper Kaba MD [address] [place] [address] Surgeon Surgical Oncology 10/25/18 Brandy Aguirre, RESEARCH INSTRUCTOR [address] [place] [address] Nurse Practitioner Certified Clinical Nurse Specialist 10/25/18 Jo-Ann Morrow, PhD [address] [place] [address] Nurse Practitioner Radiation Oncology 10/25/18 Christina Louis NP [address] [place] [address] Nurse Practitioner Medical Oncology 10/25/18 documented as of this encounter
--- OUTSIDE RECORDS SUMMARY | 2024-04-24 05:55 | XMS_ITS | Encounter Summary ---
Author Organization [facility] Address [address] [place] [address] Care Team Providers Care Cmo Name Role Phone Erica Rodrigues MD Unavailable Gasper Kaba MD Unavailable [phone] Brandy Aguirre FRUIT CHECKER Unavailable [phone] Jo-Ann Morrow PhD Unavailable [phone] Christina Louis MONOGRAM MACHINE OPERATOR Unavailable [phone] Sylvia Dawson Primary Care Provider [phone] Reason for Visit * Reason Onset Date Comments Covid-19 Home Monitoring 05/14/2020 Encounter Details Date Type Department Care Team (Late st Contact Info) Description 05/14/2020 Telephone [facility] Accountable Care Organization [address] [place] [address] Corinna Carter RN [address] [place] [address] Covid-19 Home Monitoring Social History Tobacco Use [...] file Legal Sex Female 3:42 AM AUTOMOTIVE ARTIST Gender Identity Not on file Sexual Orientation Not on file 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 SPO2 went from 97-92%. CM encouraged pt to take 7-10 big deep breaths and cough a few times. Also to make sure her fingers are warm and that she tries her pulse oximeter on different fingers to make surethe reading is correct. Pt reports after rechecking SPO2 reading is now 97% while on phone. Encouraged pt to stay well hydrated and to continue to get plenty of rest. Recommended to continue to monitor symptoms and to call provided home monitoring number for any new or worsening symptoms. land acquisition specialist of each of the following symptoms the patient reported (complete all that apply): - Respiratory Distress: No - Dehydration: No - Fever: No - Chest Pain: No - Other symptoms: No Instructions provided to patient: see above Follow-up Plan Provided to Patient: Continue to Self-Monitor. MOTIVE ARTIST documented in this encounter Plan of Treatment Not on file documented as of this encounter Visit Diagnoses Not on filedocumented in this encounter Additional Health Concerns Infection Onset Date Last Indicated Resolved Time COVID19 05/08/2020 05/08/2020 05/22/2020 3:07 AM AUTOMOTIVE ARTIST documented as of this encounter Care Teams Cmo Relationship Specialty Start Date End Date Sylvia Dawson PA [address] [facility] [place] [address] [place] [address] PCP - General Internal Medicine 01/05/20 Erica Rodrigues MD [address] [facility] [address] [place] [address] Radiation Oncologist Radiation Oncology 10/25/18 Gasper Kaba MD [address] [facility] [address] [facility] [address] [place] [address] Surgeon Surgical Oncology 10/25/18 Brandy Aguirre, FRUIT CHECKER [address] [facility] [address] [place] [address] Nurse Practitioner Certified Clinical Nurse Specialist 10/25/18 Jo-Ann Morrow, PhD [address] [place] [address] Nurse Practitioner Radiation Oncology 10/25/18 Christina Louis, MONOGRAM MACHINE OPERATOR [address] [facility] [address] [facility] [address] [place] [address] Nurse Practitioner Medical Oncology 10/25/18 documented as of this encounter
--- OUTSIDE RECORDS SUMMARY | 2024-04-24 05:55 | XMS_ITS | Encounter Summary ---
Author Organization [facility] Address [address] [facility] [facility] [address] [place] [address] Care Team Providers Care Data Warehousing Manager Name Role Phone Erica Rodrigues MD Unavailable Gasper Kaba MD Unavailable Brandy Aguirre ALLOCATION ANALYST Unavailable [phone] Jo-Ann Morrow PhD Unavailable [phone] Christina Louis HOME SERVICE ADVISOR Unavailable [phone] Sylvia Dawson Primary Care Provider [phone] Reason for Visit * Reason Onset Date Comments Covid-19 Home Monitoring 05/18/2020 MY [place] Encounter Details Date Type Department Care Team (Late st Contact Info) Description 05/18/2020 Telephone [facility] Accountable Care Organization [address] [place] [address] Jessica Erazo MA [address] [place] [address] [facility] [address] [place] [address] Covid-19 Home Monitoring (MY Chart ) Social History Tobacco Use Types Packs/Day Years [...] on file Legal Sex Female 3:42 AM HEAD CASHIER Gender Identity Not on file Sexual Orientation Not on file 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 Pt reported admitted hospital today 05/19. The patient has been admitted, or readmitted, to receive inpatient care. They will receive any necessary COVID-19 care during their current admission. For questions or concerns about the home monitoring program, please contact . This patient is not currently a good candidate for our COVID-19 home monitoring program because admitted in hospital today. By saving a note using this template, the patient will drop off our home monitoring candidate reports for two weeks. If we still consider them to have an active case of COVID-19 at that time, we willreevaluate them for home monitoring. CASHIER documented in this encounter Plan of Treatment Not on file documented as of this encounter Visit Diagnoses Not on filedocumented in this encounter Additional Health Concerns Infection Onset Date Last Indicated Resolved Time COVID19 05/08/2020 05/08/2020 05/22/2020 3:07 AM HEAD CASHIER documented as of this encounter Care Teams Data Warehousing Manager Relationship Specialty Start Date End Date Sylvia Dawson PA [address] [facility] [address] [place] [address] PCP - General Internal Medicine 01/05/20 Erica Rodrigues MD [address] [facility] [address] [place] [address] Radiation Oncologist Radiation Oncology 10/25/18 Gasper Kaba MD [address] [place] [address] Surgeon Surgical Oncology 10/25/18 Brandy Aguirre CNS [address] [place] [address] Nurse Practitioner Certified Clinical Nurse Specialist 10/25/18 Jo-Ann Morrow, PhD [address] [place] [address] Nurse Practitioner Radiation Oncology 10/25/18 Christina Louis, HOME SERVICE ADVISOR [address] [place] [address] Nurse Practitioner Medical Oncology 10/25/18 documented as of this encounter
--- OUTSIDE RECORDS SUMMARY | 2024-04-24 05:55 | XMS_ITS | Encounter Summary ---
Author Organization [facility] Address [address] [facility] [address] [place] [address] Care Team Providers Care Inventory Associate Name Role Phone Erica Rodrigues MD Unavailable Gasper Kaba MD Unavailable [phone] Brandy Aguirre TEACHER PRESCHOOL Unavailable [phone] Jo-Ann Morrow PhD Unavailable [phone] Christina Louis TEA TREE FARMER Unavailable [phone] Sylvia Dawson Primary Care Provider [phone] Reason for Visit * Reason Comments Follow-up Encounter Details Date Type Department Care Team (Late st Contact Info) Description 02/23/2020 9:00 AM SALES PROGRAM COORDINATOR Office Visit [facility] Family Medicine [address] [place] [address] Sylvia Dawson PA [address] [place] [address] Annual physical exam (Primary Dx); Mixed hyperlipidemia; Need for shingles vaccine; Colon cancer screening; Stress; BMI 25.0-25.9,adult Social History Tobacco Use Types Packs/Day Years Used Date Smoking Tobacco: Never Smokeless Tobacco: Never Alcohol Use Standard Drinks/Week Comments Yes 1 (1 standard drink = 0.6 oz pur e alcohol) social PHQ-2 Answer Date Recorded PHQ-2 Score 0 01/05/2020 Comments No Sex and Gender Information Value Date Recorded Sex Assigned at Not on file Legal Sex Female 3:42 AM SALES PROGRAM COORDINATOR Gender Identity Not on file Sexual Orientation Not on file 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 file Not on file Not on file documented as of this encounter Last Filed Vital Signs Vital Sign Reading Time Taken Comments Blood Pressure 110/70 02/23/2020 9:06 AM SALES PROGRAM COORDINATOR Pulse 58 02/23/2020 9:06 AM SALES PROGRAM COORDINATOR Temperature 36.4 ??C (97.5 ??F) 02/23/2020 9:06 AM CS T Respiratory Rate - - Oxygen Saturation 96% 02/23/2020 9:06 AM SALES PROGRAM COORDINATOR Inhaled Oxygen Concentration - - Weight 62.6 kg (138 lb) 02/23/2020 9:06 AM SALES PROGRAM COORDINATOR Height 157.5 cm (5' 2.01 ) 02/23/2020 9:06 AM CS T Body Mass Index 25.23 02/23/2020 9:06 AM SALES PROGRAM COORDINATOR documented in this encounter Progress Notes * Sylvia Dawson PA - 02/23/2020 9:00 AM CST Images from the original note were not included. Subjective/Objective Patient ID: Yesika Denney is a 59 y.o. female. Chief Complaint Follow-up HPI Patient presents for Wellness exam and to Followup meds changes. Was referred to Ortho for PT for her shoulder pain Started with CBD oil and all her pain resolved so didn't go to PT> Colonoscopy - few days before Thanksgiving at [place]. Mamm 02/20/2020 Flu UTD Would like to start Shingles #1 today. Prozac was increased to 30mg. Can tell a difference and happy with results. Lab Results Component Value Date WBC 3.9 02/17/2020 HGB 12.2 02/17/2020 HCT 36.4 02/17/2020 MCV 100 (H) 02/17/2020 LABPLAT 210 02/17/2020 Chemistry Lab Results Component Value Date SODIUM 139 02/17/2020 POTASSIUM 4.4 02/28/2019 CHLORIDE 101 02/17/2020 CO2 26 02/17/2020 ANIONGAP 12 02/28/2019 BUNSER 14 02/17/2020 CREATININE 0.72 02/17/2020 GLUCOSE 81 02/17/2020 CALCIUM 9.2 02/17/2020 BILITOT 0.4 02/17/2020 PROTEIN 6.0 02/17/2020 ALBUMIN 4.3 02/17/2020 GFRNAA >60 02/28/2019 ALKPHOS 44 02/17/2020 AST 17 02/17/2020 ALT 15 02/17/2020 Lab Results Component Value Date SEDRATE 2 02/17/2020 Lab Results Component Value Date HGBA1C 5.1 02/17/2020 Lab Results Component Value Date TSH 1.850 02/17/2020 Lab Results Component Value Date CHOL 252 (H) 02/17/2020 POCCHOL 281 09/22/2019 Lab Results Component Value Date HDL 76 02/17/2020 POCHDL 78 09/22/2019 Lab Results Component Value Date LDLCALC 162 (H) 02/17/2020 POCLDL 165 09/22/2019 Lab Results Component Value Date TRIG 81 02/17/2020 POCTRIG 188 09/22/2019 Lab Results Component Value Date POCCHDLR 3.6 09/22/2019 Lab Results Component Value Date POCNONHDL 203 09/22/2019 Lab Results Component Value Date POCCHLPL 281 09/22/2019 Review of Systems Constitutional: Negative for fever. HENT: Negative for congestion. Respiratory: Negative for shortness of breath. Cardiovascular: Negative for chest pain. Gastrointestinal: Negative for constipation and diarrhea. Vitals: 02/23/20 0906 BP: 110/70 BP Location: Left arm Patient Position: Sitting Pulse: 58 Temp: 36.4 ??C (97.5 ??F) SpO2: 96% Weight: 62.6 kg (138 lb) Height: 157.5 cm (5' 2.01 ) Physical Exam Vitals signs and nursing [...] this point. Reviewed the risks/benefits of statins Orders: - Lipid panel; Future Need for shingles vaccine (Z23) Assessment & Plan: Shingrix #1 given in office today Orders: - Varicella-zoster HZV IM Colon cancer screening (Z12.11) Assessment & Plan: Scheduled to update Stress (F43.9) Assessment & Plan: Paxil was increased to 30mg and doing well. Continue to monitor. BMI 25.0-25.9,adult (Z68.25) Assessment & Plan: Weight/BMI is in healthy range. Continue healthy lifestyle to maintain. Sylvia Dawson PA-C S PROGRAM COORDINATOR documented in this encounter Miscellaneous Notes * Assessment & Plan Note - Sylvia Dawson PA - 02/26/2020 4:04 PM SALES PROGRAM COORDINATOR Associated Problem(s): Stress (Resolved 08/26/2021) Paxil was increased to 30mg and doing well. Continue to monitor. S PROGRAM COORDINATOR * Assessment & Plan Note - Sylvia Dawson PA - 02/26/2020 4:02 PM SALES PROGRAM COORDINATOR Associated Problem(s): Need for shingles vaccine (Resolved 06/04/2020) Shingrix #1 given in office today S PROGRAM COORDINATOR * Assessment & Plan Note - Sylvia Dawson PA - 02/26/2020 4:00 PM SALES PROGRAM COORDINATOR Associated Problem(s): Colon cancer screening (Resolved 08/26/2021) Scheduled to update S PROGRAM COORDINATOR * Assessment & Plan Note - Sylvia Dawson PA - 02/26/2020 4:00 PM SALES PROGRAM COORDINATOR Associated Problem(s): BMI 25.0-25.9,adult (Resolved 06/04/2020) Weight/BMI is in healthy range. Continue healthy lifestyle to maintain. S PROGRAM COORDINATOR * Assessment & Plan Note - Sylvia Dawson PA - 02/26/2020 3:59 PM SALES PROGRAM COORDINATOR Associated Problem(s): Annual physical exam (Resolved 05/30/2020) Encouraged healthy lifestyle, good nutrition and exercise. Encouraged Calcium and Vitamin D and weight bearing exercise for bone health. Reviewed immunizations Reviewed age appropirate screenings. S PROGRAM COORDINATOR * Assessment & Plan Note - Sylvia Dawson PA - 02/26/2020 3:59 PM SALES PROGRAM COORDINATOR Associated Problem(s): Mixed hyperlipidemia Encouraged patient to follow fat/low chol diet like the Mediterranean diet. Increase good fats inthe diet. Increase exercise. Monitor labs as needed. Patient doesn't want to consider statin at this point. Reviewed the risks/benefits of statins S PROGRAM COORDINATOR S PROGRAM COORDINATOR documented in this encounter Plan of Treatment Scheduled Orders Name Type Priority Associated Diagnoses Orde r Schedule Lipid panel Lab Routine Mixed hyperlipidemia Expected: 02/22/2021, Expires: 02/22/2021 documented as of this encounter Visit Diagnoses Diagnosis Annual physical exam- Primary Routine general medical examination at a health care facility Mixed hyperlipidemia Need for shingles vaccine Need for prophylactic vaccination and inoculation against varicella Colon cancer screening Special screening for malignant neoplasms, colon Stress Other psychological or physical stress, not elsewhere classified BMI 25.0-25.9,adult documented in this encounter Orders Immunization/Injection Count Last Ordered Date First Ordered Date ZOSTER (SHINGLES) HZV IM 1 02/23/2020 documented in this encounter Care Teams Inventory Associate Relationship Specialty Start Date End Date Sylvia Dawson PA [address] [place] [address] PCP - General Internal Medicine 01/05/20 Erica Rodrigues MD [address] [place] [address] Radiation Oncologist Radiation Oncology 10/25/18 Gasper Kaba MD [address] [place] [address] Surgeon Surgical Oncology 10/25/18 Brandy Aguirre, TEACHER PRESCHOOL [address] [place] [address] Nurse Practitioner Certified Clinical Nurse Specialist 10/25/18 Jo-Ann Morrow, PhD [address] [place] [address] Nurse Practitioner Radiation Oncology 10/25/18 Christina Louis, TEA TREE FARMER [address] [place] [address] Nurse Practitioner Medical Oncology 10/25/18 documented as of this encounter
--- OUTSIDE RECORDS SUMMARY | 2024-04-24 05:55 | XMS_ITS | Encounter Summary ---
Author Organization [facility] Address [address] [place] [address] Care Team Providers Care Control Panel Builder Name Role Phone Erica Rodrigues MD Unavailable Gasper Kaba MD Unavailable [phone] Brandy Aguirre HULLER OPERATOR Unavailable [phone] Jo-Ann Morrow PhD Unavailable Christina Louis SHOE SINGER Unavailable [phone] Danii Dawson Primary Care Provider [phone] Reason for Visit * Reason Onset Date Comments Update on condition 05/15/2020 Encounter Details Date Type Department Care Team (Late st Contact Info) Description 05/15/2020 Telephone [facility] Family Medicine [address] [facility] [place] [address] Barbra Alarcon LPN Update on condition Social History Tobacco Use Types Packs/Day Years [...] on file Legal Sex Female 3:42 AM PREPARATION SUPERVISOR FREEZING Gender Identity Not on file Sexual Orientation Not on file 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 21 tablet 05/15/2020 1 documented in this encounter Miscellaneous Notes * Telephone Encounter - Danii Dawson PA - 05/17/2020 12:46 PM PREPARATION SUPERVISOR FREEZING Patient called today with increased SOB. Sats at home between 88-90. 2 days ago I sent out Medrol dose cyndi and albuterol. She was had GI sxs during her COVID. Recommend to ER as not getting better and o2sats are dropping. ARATION SUPERVISOR FREEZING * Telephone Encounter - Barbra Alarcon LPN - 05/15/2020 4:13 PM PREPARATION SUPERVISOR FREEZING Contacted patient. Educated patient on albuterol inhaler and taking medrol dose pac, as she is not on prednisone currently. 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 Verbalizes understanding on continuation of tylenol and reports she is not experiencing any dehydration symptoms. Educated patient on sxs of dehydration and to drink fluids with extra electrolytes. ARATION SUPERVISOR FREEZING * Addendum Note - Danii Dawson PA - 05/15/2020 3:15 PM CSTAddended by: DANII DAWSON on: 05/15/2020 03:15 PM Modules accepted: Orders ARATION SUPERVISOR FREEZING * Telephone Encounter - Danii Dawson PA - 05/15/2020 3:10 PM PREPARATION SUPERVISOR FREEZING Agree. She is out of the 5 day window for the monoclonal antibodies. I would like to send out a Medrol dose pac (make sure she is not currently on the prednisone that she takes for RA flairs) and Albuterol inhaler. Continue the Tylenol 500mg two tabs q 6 hours for ever. Please screen for dehydration since she has been vomiting/diarrhea. If she is having increased abdominal pain, lips dry, not urinating, may need to get fluids. ARATION SUPERVISOR FREEZING ARATION SUPERVISOR FREEZING * Telephone Encounter - Barbra Alarcon LPN - 05/15/2020 12:59 PM PREPARATION SUPERVISOR FREEZING Patient called in inquiring about monoclonal infusion, or BAM test. Patient reports fever of 101.9Ftoday, vomiting and diarrhea, cough and O2 sats in the mid 90s, but dipping into lower 90s after episode of vomiting. Patient is only taking tylenol. Spoke with Danii, patient is outside window for either monoclonal or BAM treatments. Will advise patient of this and will inform patient that PCP will likely send other medication, including steroid, to pharmacy. ARATION SUPERVISOR FREEZING documented in this encounter Plan of Treatment Not on file documented as of this encounter Visit Diagnoses Not on filedocumented in this encounter Additional Health Concerns Infection Onset Date Last Indicated Resolved Time COVID19 05/08/2020 05/08/2020 05/22/2020 3:07 AM PREPARATION SUPERVISOR FREEZING documented as of this encounter Care Teams Control Panel Builder Relationship Specialty Start Date End Date Danii Dawson PA [address] [facility] [address] [place] [address] PCP - General Internal Medicine 01/05/20 Erica Rodrigues MD [address] [facility] [address] [place] [address] Radiation Oncologist Radiation Oncology 10/25/18 Gasper Kaba MD [address] [facility] [address] [facility] [address] [place] [address] Surgeon Surgical Oncology 10/25/18 Brandy Aguirre CNS [address] [facility] [address] [facility] [address] [place] [address] Nurse Practitioner Certified Clinical Nurse Specialist 10/25/18 Jo-Ann Morrow, PhD [address] [facility] [address] [facility] [address] [place] [address] Nurse Practitioner Radiation Oncology 10/25/18 Christina Louis SHOE SINGER [address] [facility] [address] [facility] [address] [place] [address] Nurse Practitioner Medical Oncology 10/25/18 documented as of this encounter
--- OUTSIDE RECORDS SUMMARY | 2024-04-24 05:55 | XMS_ITS | Encounter Summary ---
Author Organization [facility] Address [address] [place] [address] Phone Care Team Providers Care Mounting Inspector Name Role Phone Erica Rodrigues MD Unavailable Gasper Kaba MD Unavailable [phone] Brandy Aguirre COLLATOR HAND Unavailable [phone] Jo-Ann Morrow PhD Unavailable [phone] Christina Louis MANUFACTURERS REPRESENTATIVE Unavailable [phone] Sylvia Dawson Primary Care Provider [phone] Reason for Visit * Cardiology (Routine) - Closed Specialty Diagnoses / Procedures Referred By Contac t Referred To Contact Diagnoses Palpitations Procedures Event Monitor, 30 Day Event Lv Thompson MD Phone: tel: fax: [address] [address] Referral ID Status Reason Start Date Expiration Date Visits Re quested Visits Authorized [id number] Closed 03/28/2020 04/27/2021 1 1 Encounter Details Date Type Department Care Team (Late st Contact Info) Description 03/28/2020 11:30 AM CORE FITTER Ancillary Procedure [facility] [address] [facility] [address] [place] [address] Lv Thompson MD [address] [address] Palpitations Social History Tobacco Use Types Packs/Day Years Used Date Smoking Tobacco: Never Smokeless Tobacco: Never Alcohol Use Standard Drinks/Week Comments Yes 1 (1 standard drink = 0.6 oz pur e alcohol) social PHQ-2 Answer Date Recorded PHQ-2 Score 0 01/05/2020 Comments No Sex and Gender Information Value Date Recorded Sex Assigned at Not on file Legal Sex Female 3:42 AM CORE FITTER Gender Identity Not on file Sexual Orientation Not on file 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 Not on file Not on file documented as of this encounter Plan of Treatment Not on file documented as of this encounter Procedures Procedure Name Priority Date/Time Associated Diagnosis Comments EVENT MONITOR Routine 03/28/2020 1:32 PM CORE FITTER Palpitations documented in this encounter Results * Event Monitor, 30 Day Event (03/28/2020 1:32 PM CORE FITTER) Anatomical Region Laterality Modality Electrocardiogra phy 03/28/2020 11:3 0 AM CORE FITTER Narrative 05/09/2020 8:46 AM CORE FITTER Patient name: Yesika Denney Date of test: 03/28/2020 Type of Test: Event Monitor ([facility]) [facility] #: [id number] ?Location: [facility] : 1960 ??Age: 59 ??Sex: F Ref Physician(s): LV THOMPSON MD Interpreted by: Harpal Grider MD [employer]: [employer] Monitoring Service Diagnosis: Monitoring Service: [employer] Reason for Test: R00.2: Palpitations Monitor Used: Body Guardian Heart (MCT) ?? Enrollment Period: Apr 04 - May 03, 2020 [employer] comments: Patient Instructions: Patient support person included in instructions Number of Transmissions Sent During Enrollment Period: 48 To obtain transmission tracing contact: [facility] ??[phone] Rhythm Summary: Bradycardia avg rate: 56 Bradycardia longest duration: 01:23:03 Bradycardia longest episode: 04/23/2020 17:01:00 Bradycardia shortest duration: 00:00:02 Bradycardia shortest episode: 04/24/2020 00:00:00 Mean heart rate: 66 Pauses >= 3 seconds: 0 Tachycardia avg rate: 106 Tachycardia longest duration: 00:11:54 Tachycardia longest episode: 04/25/2020 09:32:00 Tachycardia shortest duration: 00:00:14 Tachycardia shortest episode: 04/05/2020 09:26:00 Cardiologis Review of Transmissions: Normal sinus rhythm [...] The full scanned/data report is available in Voxli. labeled MONITOR STRIPS PDF . This study was interpreted by Harpal Grider MD Confirmed on ??05/09/2020 - 08:46:54 by Harpal Grider MD Summary of Transmitted Events: # ??Date ? Time ?HR ?Symptoms/Rhythm ? 48 05/03/20 21:13 ?? 70.4 ?Flutter or Skipped Beats ? Sinus Rhythm w/PVCs (1 in 1/Min)/Artifact ? 47 05/03/20 19:38 ?? 61.8 ?None Reported ? Sinus Rhythm w/Couplet PACs/PACs/Artifact ? 46 05/03/20 09:12 ?? 64.6 ?Flutter or Skipped Beats ? Sinus Rhythm w/PVCs ([id number])/Artifact ? 45 05/03/20 06:49 ?? 56.1 ?None Reported ? Sinus Bradycardia w/Interpolated PVCs (1 in 1/MIn)/Artif 44 05/01/20 19:54 ?? 60.1 ?Flutter or Skipped Beats ? Sinus Rhythm, Sinus Arrhythmia w/PVCs (1 in 1/Min)/Artif 43 04/30/20 20:45 ?? 57.9 ?Flutter or Skipped Beats ? Sinus Rhythm, Sinus Bradycardia w/PVCs (1 in 1 min)/Zo 42 04/30/20 11:21 ?? 59.3 ?Flutter or Skipped Beats ? Sinus Bradycardia w/Artifact ? 41 04/30/20 05:46 ?? 61.1 ?None Reported ? Sinus Arrhythmia, Sinus Rhythm w/PVCs (1 in 1/Min)/Artif 40 04/28/20 18:36 ?? 68.3 ?Flutter or Skipped Beats ? Sinus Rhythm w/PVCs (1 in 1 min)/Artifact ? 39 04/28/20 18:17 ?? 62.9 ?None Reported ? Sinus Rhythm w/Artifact ? 38 04/27/20 18:40 ?? 60.2 ?Flutter or Skipped Beats ? Sinus Rhythm w/PVCs (1 in 1 min)/Artifact ? 37 04/26/20 19:41 ?? 70.1 ?Flutter or Skipped Beats ? Sinus Rhythm w/PVCs (1 in 1 min)/Artifact ? 36 04/26/20 05:26 ?? 51.2 ?Auto Trigger ? Sinus Bradycardia ? 35 04/25/20 18:09 ?? 54.7 ?Flutter or Skipped Beats ? Sinus Bradycardia w/Artifact ? 34 04/24/20 18:32 ?? 62.5 ?Flutter or Skipped Beats ? Sinus Rhythm ? 33 04/24/20 11:33 ?? 65.7 ?Flutter or Skipped Beats ? Sinus Rhythm w/PVCs (1)/Artifact ? 32 04/23/20 21:32 ?? 53.7 ?None Reported ? Sinus Bradycardia w/Interpolated PVCs (2 in 1/Min) ? 31 04/22/20 18:00 ?? 69.2 ?Flutter or Skipped Beats ? Sinus Rhythm w/PVCs (1 in 1/min) ? 30 04/21/20 18:11 ?? 63.1 ?Flutter or Skipped Beats ? Sinus Rhythm w/Artifact ? 29 04/20/20 18:37 ?? 61.3 ?Flutter or Skipped Beats ? Sinus Rhythm w/Interpolated PVC/Artifact ? 28 04/19/20 18:07 ?? 56.2 ?Flutter or Skipped Beats ? Sinus Bradycardia w/Artifact ? 27 04/18/20 18:01 ?? 61.3 ?Flutter or Skipped Beats ? Sinus Rhythm w/Artifact ? 26 04/18/20 16:41 ?? 71.8 ?Flutter or Skipped Beats; DizzinesSinus Rhythm w/PACs/Artifact ? 25 04/17/20 18:14 ?? 63.1 ?Flutter or Skipped Beats ? Sinus Rhythm, Sinus Arrhythmia w/PVCs (1 in 1/min) ? 24 04/16/20 18:06 ?? 61.7 ?Flutter or Skipped Beats ? Sinus Rhythm w/Artifact ? 23 04/15/20 19:24 ?? 56.0 ?Flutter or Skipped Beats ? Sinus Bradycardia w/Artifact ? 22 04/14/20 18:00 ?? 74.8 ?Flutter or Skipped Beats ? Sinus Rhythm w/PVCs (1 in 1/Min)/Artifact ? 21 04/13/20 18:06 ?? 64.2 ?Flutter or Skipped Beats ? Sinus Rhythm w/PVCs (1 in 1/min) ? 20 04/12/20 18:42 ?? 66.3 ?Flutter or Skipped Beats; Passed OSinus Rhythm w/PVCs (2 in 1/Min) ? 19 04/12/20 18:35 ?? 65.8 ?Flutter or Skipped Beats ? Sinus Rhythm w/PVCs (2 in 1/min)/Artifact ? 18 04/12/20 18:11 ?? 64.9 ?None Reported ? Sinus Rhythm w/PVCs (1 in 1/Min) ? 17 04/12/20 08:27 ?? 67.2 ?Flutter or Skipped Beats; DizzinesSinus Rhythm w/PVCs (1 in 1/Min)/Artifact ? 16 04/11/20 18:05 ?? 70.2 ?Flutter or Skipped Beats ? Sinus Rhythm w/PVCs (2 in 1/Min)/Artifact ? 15 04/10/20 20:16 ?? 61.2 ?Flutter or Skipped Beats ? Sinus Bradycardia, Sinus Rhythm w/Interpolated PVCs (1 i 14 04/10/20 19:50 ?? 66.5 ?None Reported ? Sinus Rhythm w/Interpolated PVC ? 13 04/09/20 19:28 ?? 70.1 ?Tired or Fatigued; Light-HeadednesSinus Arrhythmia, Sinus Bradycardia w/Interpolated PVC/A 04/09/20 18:06 ?? 67.2 ?Flutter or Skipped Beats ? Sinus Rhythm w/Interpolated PVC/Artifact ? 11 04/09/20 09:52 ?? 82.5 ?Flutter or Skipped Beats ? Sinus Rhythm w/PVCs (1 in 1 min) ? 10 04/07/20 18:05 ?? 72.6 ?Flutter or Skipped Beats; Light-HeSinus Rhythm w/PVCs (1 in 1/Min)/Artifact ? 9 ??04/07/20 08:18 ?? 62.7 ?Flutter or Skipped Beats; Light-HeSinus Rhythm, Sinus Bradycardia w/PVCs (2 in 1/Min)/Zo 8 ??04/06/20 21:07 ?? 68.2 ?None or Accidental Push ? Sinus Rhythm w/Interpolated PVC/PVCs (2 In 1/Min)/Artifa 7 ??04/06/20 18:55 ?? 69.1 ?Flutter or Skipped Beats ? Sinus Rhythm w/Interpolated PVC/PVCs (1ua0Uss)/Artifact 6 ??04/06/20 18:08 ?? 73.6 ?None Reported ? Sinus Rhythm w/PVCs (1 in 1/Min)/Artifact ? 5 ??04/05/20 18:55 ?? 72.2 ?Flutter or Skipped Beats; Light-HeSinus Rhythm w/PVCs (1 in 1/Min)/Artifact ? 4 ??04/05/20 18:14 ?? 78.3 ?Flutter or Skipped Beats ? Sinus Rhythm w/PVCs (1 in 1/min) ? 3 ??04/05/20 09:15 ?? 85.8 ?Flutter or Skipped Beats; Light-HeSinus Rhythm w/PVCs (2 in 1/Min)/Artifact/Lead Loss ? 2 ??04/04/20 18:10 ?? 75.8 ?Flutter or Skipped Beats ? Sinus Rhythm w/PVCs (1 in 1/Min)/Artifact ? 1 ??04/04/20 17:32 ?? 81.6 ?Flutter or Skipped Beats ? Sinus Rhythm, Sinus Arrhythmia w/PVCs ([id number])/Artifact I have personally reviewed and interpreted this study. Procedure Note Harpal Grider MD - 05/09/2020 Patient name: Yesika Denney Date of test: 03/28/2020 Type of Test: Event Monitor ([facility]) [facility] #: [id number] Location: [facility] : 1960 Age: 59 Sex: F Ref Physician(s): LV THOMPSON MD Interpreted by: Harpal Grider MD Home[employer] Tech: [employer] Monitoring Service Diagnosis: Monitoring Service: [employer] Reason for Test: R00.2: Palpitations Monitor Used: Body Guardian Heart (MCT) Enrollment Period: Apr 04 - May 03, 2020 [employer] comments: Patient Instructions: Patient support person included in instructions Number of Transmissions Sent During Enrollment Period: 48 To obtain transmission tracing contact: [facility] [phone] Rhythm Summary: Bradycardia avg rate: 56 Bradycardia longest duration: 01:23:03 Bradycardia longest episode: 04/23/2020 17:01:00 Bradycardia shortest duration: 00:00:02 Bradycardia shortest episode: 04/24/2020 00:00:00 Mean heart rate: 66 Pauses >= 3 seconds: 0 Tachycardia avg rate: 106 Tachycardia longest duration: 00:11:54 Tachycardia longest episode: 04/25/2020 09:32:00 Tachycardia shortest duration: 00:00:14 Tachycardia shortest episode: 04/05/2020 09:26:00 Cardiologis Review of Transmissions: Normal sinus rhythm [...] The full scanned/data report is available in Voxli. labeled MONITOR STRIPS PDF . This study was interpreted by Harpal Grider MD Confirmed on 05/09/2020 - 08:46:54 by Harpal Grider MD Summary of Transmitted Events: # Date Time HR Symptoms/Rhythm 48 05/03/20 21:13 70.4 Flutter or Skipped Beats Sinus Rhythm w/PVCs (1 in 1/Min)/Artifact 47 05/03/20 19:38 61.8 None Reported Sinus Rhythm w/Couplet PACs/PACs/Artifact 46 05/03/20 09:12 64.6 Flutter or Skipped Beats Sinus Rhythm w/PVCs ([id number])/Artifact 45 05/03/20 06:49 56.1 None Reported Sinus Bradycardia w/Interpolated PVCs (1 in 1/MIn)/Artif 44 05/01/20 19:54 60.1 Flutter or Skipped Beats Sinus Rhythm, Sinus Arrhythmia w/PVCs (1 in 1/Min)/Artif 43 04/30/20 20:45 57.9 Flutter or Skipped Beats Sinus Rhythm, Sinus Bradycardia w/PVCs (1 in 1 min)/Zo 42 04/30/20 11:21 59.3 Flutter or Skipped Beats Sinus Bradycardia w/Artifact 41 04/30/20 05:46 61.1 None Reported Sinus Arrhythmia, Sinus Rhythm w/PVCs (1 in 1/Min)/Artif 40 04/28/20 18:36 68.3 Flutter or Skipped Beats Sinus Rhythm w/PVCs (1 in 1 min)/Artifact 39 04/28/20 18:17 62.9 None Reported Sinus Rhythm w/Artifact 38 04/27/20 18:40 60.2 Flutter or Skipped Beats Sinus Rhythm w/PVCs (1 in 1 min)/Artifact 37 04/26/20 19:41 70.1 Flutter or Skipped Beats Sinus Rhythm w/PVCs (1 in 1 min)/Artifact 36 04/26/20 05:26 51.2 Auto Trigger Sinus Bradycardia 35 04/25/20 18:09 54.7 Flutter or Skipped Beats Sinus Bradycardia w/Artifact 34 04/24/20 18:32 62.5 Flutter or Skipped Beats Sinus Rhythm 33 04/24/20 11:33 65.7 Flutter or Skipped Beats Sinus Rhythm w/PVCs (1)/Artifact 32 04/23/20 21:32 53.7 None Reported Sinus Bradycardia w/Interpolated PVCs (2 in 1/Min) 31 04/22/20 18:00 69.2 Flutter or Skipped Beats Sinus Rhythm w/PVCs (1 in 1/min) 30 04/21/20 18:11 63.1 Flutter or Skipped Beats Sinus Rhythm w/Artifact 29 04/20/20 18:37 61.3 Flutter or Skipped Beats Sinus Rhythm w/Interpolated PVC/Artifact 28 04/19/20 18:07 56.2 Flutter or Skipped Beats Sinus Bradycardia w/Artifact 04/18/20 18:01 61.3 Flutter or Skipped Beats Sinus Rhythm w/Artifact 04/18/20 16:41 71.8 Flutter or Skipped Beats; DizzinesSinus Rhythm w/PACs/Artifact 04/17/20 18:14 63.1 Flutter or Skipped Beats Sinus Rhythm, Sinus Arrhythmia w/PVCs (1 in 1/min) 04/16/20 18:06 61.7 Flutter or Skipped Beats Sinus Rhythm w/Artifact 04/15/20 19:24 56.0 Flutter or Skipped Beats Sinus Bradycardia w/Artifact 04/14/20 18:00 74.8 Flutter or Skipped Beats Sinus Rhythm w/PVCs (1 in 1/Min)/Artifact 04/13/20 18:06 64.2 Flutter or Skipped Beats Sinus Rhythm w/PVCs (1 in 1/min) 04/12/20 18:42 66.3 Flutter or Skipped Beats; Passed OSinus Rhythm w/PVCs (2 in 1/Min) 04/12/20 18:35 65.8 Flutter or Skipped Beats Sinus Rhythm w/PVCs (2 in 1/min)/Artifact 18 04/12/20 18:11 64.9 None Reported Sinus Rhythm w/PVCs (1 in 1/Min) 17 04/12/20 08:27 67.2 Flutter or Skipped Beats; DizzinesSinus Rhythm w/PVCs (1 in 1/Min)/Artifact 16 04/11/20 18:05 70.2 Flutter or Skipped Beats Sinus Rhythm w/PVCs (2 in 1/Min)/Artifact 15 04/10/20 20:16 61.2 Flutter or Skipped Beats Sinus Bradycardia, Sinus Rhythm w/Interpolated PVCs (1 i 14 04/10/20 19:50 66.5 None Reported Sinus Rhythm w/Interpolated PVC 13 04/09/20 19:28 70.1 Tired or Fatigued; Light-HeadednesSinus Arrhythmia, Sinus Bradycardia w/Interpolated PVC/A 12 04/09/20 18:06 67.2 Flutter or Skipped Beats Sinus Rhythm w/Interpolated PVC/Artifact 11 04/09/20 09:52 82.5 Flutter or Skipped Beats Sinus Rhythm w/PVCs (1 in 1 min) 10 04/07/20 18:05 72.6 Flutter or Skipped Beats; Light-HeSinus Rhythm w/PVCs (1 in 1/Min)/Artifact 9 04/07/20 08:18 62.7 Flutter or Skipped Beats; Light-HeSinus Rhythm, Sinus Bradycardia w/PVCs (2 in 1/Min)/Zo 8 04/06/20 21:07 68.2 None or Accidental Push Sinus Rhythm w/Interpolated PVC/PVCs (2 In 1/Min)/Artifa 7 04/06/20 18:55 69.1 Flutter or Skipped Beats Sinus Rhythm w/Interpolated PVC/PVCs ([id number])/Artifact 6 04/06/20 18:08 73.6 None Reported Sinus Rhythm w/PVCs (1 in 1/Min)/Artifact 5 04/05/20 18:55 72.2 Flutter or Skipped Beats; Light-HeSinus Rhythm w/PVCs (1 in 1/Min)/Artifact 4 04/05/20 18:14 78.3 Flutter or Skipped Beats Sinus Rhythm w/PVCs (1 in 1/min) 3 04/05/20 09:15 85.8 Flutter or Skipped Beats; Light-HeSinus Rhythm w/PVCs (2 in 1/Min)/Artifact/Lead Loss 2 04/04/20 18:10 75.8 Flutter or Skipped Beats Sinus Rhythm w/PVCs (1 in 1/Min)/Artifact 1 04/04/20 17:32 81.6 Flutter or Skipped Beats Sinus Rhythm, Sinus Arrhythmia w/PVCs ([id number])/Artifact I have personally reviewed and interpreted this study. Lv Thompson MD [facility] Final Result documented in this encounter Visit Diagnoses Diagnosis Palpitations documented in this encounter Care Teams Mounting Inspector Relationship Specialty Start Date End Date Sylvia Dawson PA [address] [facility] [address] [place] [id number] PCP - General Internal Medicine 01/05/20 Erica Rodrigues MD [address] [facility] [address] [place] [address] Radiation Oncologist Radiation Oncology 10/25/18 Gasper Kaba MD [address] [facility] [address] [place] [address] Surgeon Surgical Oncology 10/25/18 Brandy Aguirre CNS [address] [place] [address] Nurse Practitioner Certified Clinical Nurse Specialist 10/25/18 Jo-Ann Morrow, PhD [address] [facility] [address] [place] [address] Nurse Practitioner Radiation Oncology 10/25/18 Christina Louis NP [address] [facility] [address] [place] [address] Nurse Practitioner Medical Oncology 10/25/18 documented as of this encounter
--- OUTSIDE RECORDS SUMMARY | 2024-04-24 05:55 | XMS_ITS | Encounter Summary ---
Author Organization [facility] Healthcare Address [address] [place] [address] Care Team Providers Care Hogshead Stock Clerk Name Role Phone Erica Rodrigues MD Unavailable Gasper Kaba MD Unavailable Brandy Aguirre Unavailable [phone] Jo-Ann Morrow PhD Unavailable [phone] Christina Louis RAW STOCK MACHINE LOADER Unavailable [phone] Sylvia Dawson Primary Care Provider [phone] Encounter Details Date Type Department Care Team (Late st Contact Info) Description 05/07/2020 Patient Self-Triage [facility] HealthCare/ Physicians [address] [place] [address] Magnus, Generic Provider [address] [place], [place] [id number] Social History Tobacco Use Types Packs/Day Years [...] on file Legal Sex Female 3:42 AM FISHER LAMPARA NET Gender Identity Not on file Sexual Orientation Not on file 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 Not on file Not on file documented as of this encounter Plan of Treatment Not on file documented as of this encounter Visit Diagnoses Not on filedocumented in this encounter Care Teams Hogshead Stock Clerk Relationship Specialty Start Date End Date Sylvia Dawson PA [address] [facility] [address] [place] [address] PCP - General Internal Medicine 01/05/20 Erica Rodrigues MD [address] [place] [address] Radiation Oncologist Radiation Oncology 10/25/18 Gasper Kaba MD [address] [place] [address] Surgeon Surgical Oncology 10/25/18 Brandy Aguirre, BATTALION CHIEF [address] [place] [address] Nurse Practitioner Certified Clinical Nurse Specialist 10/25/18 Jo-Ann Morrow, PhD [address] [place] [address] Nurse Practitioner Radiation Oncology 10/25/18 Christina Louis NP [address] [place] [address] Nurse Practitioner Medical Oncology 10/25/18 documented as of this encounter
--- OUTSIDE RECORDS SUMMARY | 2024-04-24 05:55 | XMS_ITS | Encounter Summary ---
Author Organization [facility] Address [address] [place] [address] Phone Care Team Providers Care Bridges And Buildings Supervisor Name Role Phone Erica Rodrigues MD Unavailable Gasper Kaba MD Unavailable Brandy Aguirre Unavailable [phone] Jo-Ann Morrow PhD Unavailable [phone] Christina Louis MEDICAL EDUCATION MANAGER Unavailable [phone] Sylvia Dawson Primary Care Provider [phone] Reason for Referral * Diagnostic Imaging (Routine) - Closed Specialty Diagnoses / Procedures Referred By Contac t Referred To Contact Diagnoses History of breast cancer Procedures Screening Mammogram Bilateral W Brandy Vyas CNS Phone: tel: fax: [facility] [address] [place] [address] Referral ID Status Reason Start Date Expiration Date Visits Re quested Visits Authorized [id number] Closed 02/09/2020 03/10/2021 1 1 Encounter Details Date Type Department Care Team (Late st Contact Info) Description 02/09/2020 Orders Only [facility] [address] [facility] 5th [place] [address] [place] [address] Brandy Aguirre, LAUNDRY TECH [address] [facility] [address] [place] [address] History of breast cancer (Primary Dx) Social History Tobacco [...] on file Legal Sex Female 3:42 AM OVERLAY OPERATOR Gender Identity Not on file Sexual Orientation Not on file 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 ??Views obtained: ??bilateral craniocaudal and bilateral mediolateral oblique. ??Computer Aided Detection was performed. Mammogram Findings: The present examination has been compared to prior imaging studies performed at [facility] on 12/03/2016, 02/09/2018 and 01/18/2019. The breasts are heterogeneously dense, which may obscure small masses. There is no suspicious abnormality in either breast. Findings compatible with prior right breast conservation therapy are noted. Impression: Benign findings of previous breast conservation therapy. Annual screening mammography is recommended. OVERALL FINAL ASSESSMENT: BI-RADS CATEGORY 2: ??Benign. Procedure Note Alyssa Kraft MD - 02/21/2020 Mammogram Technique: Bilateral Digital Breast Tomosynthesis, Bilateral C-view 2D Screening mammogram. Views obtained: bilateral craniocaudal and bilateral mediolateral oblique. Computer Aided Detection was performed. Mammogram Findings: The present examination has been compared to prior imaging studies performed at [facility] on 12/03/2016, 02/09/2018 and 01/18/2019. The breasts are heterogeneously dense, which may obscure small masses. There is no suspicious abnormality in either breast. Findings compatible with prior right breast conservation therapy arenoted. Impression: Benign findings of previous breast conservation therapy. Annual screening mammography is recommended. OVERALL FINAL ASSESSMENT: BI-RADS CATEGORY 2: Benign. Brandy Aguirre LAUNDRY TECH IMG MAMMO PROCEDURES Final R esult documented in this encounter Visit Diagnoses Diagnosis History of breast cancer- Primary Personal history of malignant neoplasm of breast History of breast cancer Personal history of malignant neoplasm of breast documented in this encounter Care Teams Bridges And Buildings Supervisor Relationship Specialty Start Date End Date Sylvia Dawson PA [address] [facility] [address] [place] [address] PCP - General Internal Medicine 01/05/20 Erica Rodrigues MD [address] [place] [address] Radiation Oncologist Radiation Oncology 10/25/18 Gasper Kaba MD [address] [place] [address] Surgeon Surgical Oncology 10/25/18 Brandy Aguirre CNS [address] [place] [address] Nurse Practitioner Certified Clinical Nurse Specialist 10/25/18 Jo-Ann Morrow, PhD [address] [place] [address] Nurse Practitioner Radiation Oncology 10/25/18 Christina Louis NP [address] [place] [address] Nurse Practitioner Medical Oncology 10/25/18 documented as of this encounter
--- OUTSIDE RECORDS SUMMARY | 2024-04-24 05:55 | XMS_ITS | Encounter Summary ---
Author Organization [facility] Maya's Mom of [facility] Address [address] [place] [address] Phone Care Team Providers Care Bridge Ironworker Name Role Phone Erica Rodirgues MD Unavailable Gasper Kaba MD Unavailable Brandy Aguirre ORGANIC GARDENING TEACHER Unavailable Jo-Ann Morrow PhD Unavailable [phone] Christina Louis ESCROW CLERK Unavailable [phone] Sylvia Dawson Primary Care Provider [phone] Encounter Details Date Type Department Care Team (Late st Contact Info) Description 02/10/2020 Orders Only [facility] Rheumatology [address] Advanced Medicine 5th [place] [address] [place] [address] Patricia Martinez MD [address] [place] [address] Rheumatoid arthritis of multiple sites with negative [...] on file Legal Sex Female 3:42 AM HIGHER LEVEL TEACHING ASSISTANT Gender Identity Not on file Sexual [...] 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 (CMS/HCC) High risk medication use q 3 mo for 10 Occurrences starting 02/10/2020 until 02/09/2021, 1 completed Comprehensive metabolic panel Lab Routine Rheumatoid 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 (CMS/HCC) High risk medication use q 3 mo for 10 Occurrences starting 02/10/2020 until 02/09/2021, 1 completed Erythrocyte sedimentation rate Lab Routine Rheumatoid 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 (CMS/HCC) High risk medication use q 3 mo for 10 Occurrences starting 02/10/2020 until 02/09/2021, 1 completed CRP (acute phase) Lab Routine Rheumatoid 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 (CMS/HCC) High risk medication use q 3 mo for 10 Occurrences starting 02/10/2020 until 02/09/2021, 1 completed documented as of this encounter Procedures Procedure Name Priority Date/Time Associated Diagnosis Comments CBC WITH AUTO DIFFERENTIAL Routine 02/17/2020 12:48 PM HIGHER LEVEL TEACHING ASSISTANT Rheumatoid 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 (CMS/HCC) High risk medication use ERYTHROCYTE SEDIMENTATION RATE Routine 02/17/2020 12:48 PM HIGHER LEVEL TEACHING ASSISTANT Rheumatoid 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 (CMS/HCC) High risk medication use CRP (ACUTE PHASE) Routine 02/17/2020 12: 48 PM HIGHER LEVEL TEACHING ASSISTANT Rheumatoid 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 (CMS/HCC) High risk medication use COMPREHENSIVE METABOLIC PANEL Routine 02/17/2020 12:48 PM HIGHER LEVEL TEACHING ASSISTANT Rheumatoid 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 (CMS/HCC) High risk medication use documented in this encounter Results * CRP (acute phase) (02/17/2020 12:48 PM HIGHER LEVEL TEACHING ASSISTANT) CRP <1 0 - 10 mg/L [facility] - 01 Blood specimen (specimen) 02/17/2020 12:48 PM HIGHER LEVEL TEACHING ASSISTANT 02/17/2020 Narrative [facility] - 02/18/2020 10:09 AM HIGHER LEVEL TEACHING ASSISTANT Performed at: ??01 - [facility] ??[id number] Color Sprayer: John Lozoya PhD, Phone: ??[phone] Alma Echevarria MD LAB BLOOD ORDERABLES Fi nal Result Performing Organization Address [facility] Co de Phone Number [facility] - * Erythrocyte sedimentation rate (02/17/2020 12:48 PM HIGHER LEVEL TEACHING ASSISTANT) Pathologist [facility] Erythrocyte sedimentation rate 2 0 - 40 mm/hr [facility] - 01 Blood specimen (specimen) 02/17/2020 12:48 PM HIGHER LEVEL TEACHING ASSISTANT 02/17/2020 Narrative [facility] - 02/18/2020 10:09 AM HIGHER LEVEL TEACHING ASSISTANT Performed at: ??01 - [facility] ??[id number] Color Sprayer: John Lozoya PhD, Phone: ??[phone] Alma Echevarria MD LAB BLOOD ORDERABLES Fi nal Result Performing Organization Address [facility] Co de Phone Number [facility] - * (ABNORMAL) Comprehensive metabolic panel (02/17/2020 12:48 PM HIGHER LEVEL TEACHING ASSISTANT) Glucose 81 65 - 99 mg/dL [facility] - 01 BUN 14 6 - 24 mg/dL [facility] - 01 Creatinine, Serum 0.72 0.57 - 1.00 mg/dL [facility] - 01 eGFR If NonAfricn Am 92 >59 mL/min/1.7 3 [facility] - 01 eGFR If Africn Am 106 >59 mL/min/1.7 3 [facility] - 01 BUN/creat ratio 19 9 - 23 [facility] - 01 Sodium 139 134 - 144 mmol/L [facility] - 01 Potassium, sr 4.3 3.5 - 5.2 mmol/L [facility] - 01 Chloride 101 96 - 106 mmol/L [facility] - 01 CO2 26 20 - 29 mmol/L [facility] - 01 Calcium 9.2 8.7 - 10.2 mg/dL [facility] - 01 Protein, sr 6.0 6.0 - 8.5 g/dL [facility] - 01 Albumin 4.3 3.8 - 4.9 g/dL [facility] - 01 Globulin, Total 1.7 1.5 - 4.5 g/dL [facility] - 01 A/G Ratio 2.5(H) 1.2 - 2.2 [facility] - 01 Bilirubin, Total 0.4 0.0 - 1.2 mg/dL [facility] - 01 Alk phos 44 39 - 117 IU/L [facility] - 01 AST 17 0 - 40 IU/L [facility] - 01 ALT 15 0 - 32 IU/L [facility] - 01 Blood specimen (specimen) 02/17/2020 12:48 PM HIGHER LEVEL TEACHING ASSISTANT 02/17/2020 Narrative [facility] - 02/18/2020 10:09 AM HIGHER LEVEL TEACHING ASSISTANT Performed at: ??01 - [facility] [address] ??[id number] Color Sprayer: John Lozoya PhD, Phone: ??[phone] us Alma Echevarria MD LAB BLOOD ORDERABLES Fi nal Result [facility] - 01 * (ABNORMAL) CBC with auto differential (02/17/2020 12:48 PM HIGHER LEVEL TEACHING ASSISTANT) WBC 3.9 3.4 - 10.8 x10E3/uL [facility] - 01 RBC 3.65(L) 3.77 - 5.28 x10E6/uL [facility] - 01 Hgb 12.2 11.1 - 15.9 g/dL [facility] - 01 Hct 36.4 34.0 - 46.6 % [facility] - 01 MCV 100(H) 79 - 97 fL [facility] - 01 MCH 33.4(H) 26.6 - 33.0 pg [facility] - 01 MCHC 33.5 31.5 - 35.7 g/dL [facility] - 01 Rdw 12.4 11.7 - 15.4 % [facility] - 01 Platelets 210 150 - 450 x10E3/uL [facility] - 01 Neutrophils pct 50 Not Estab. % [facility] - 01 Lymphs pct 37 Not Estab. % [facility] - 01 Monocytes pct 11 Not Estab. % [facility] - 01 Eosinophils pct 1 Not Estab. % [facility] - 01 Basophil pct 1 Not Estab. % [facility] - 01 Neutrophil abs 1.9 1.4 - 7.0 x10E3/uL [facility] - 01 [...] x10E3/uL [facility] - 01 Blood specimen (specimen) 02/17/2020 12:48 PM HIGHER LEVEL TEACHING ASSISTANT 02/17/2020 Narrative [facility] - 02/18/2020 10:09 AM HIGHER LEVEL TEACHING ASSISTANT Performed at: ??01 - [facility] [address] ??[id number] Color Sprayer: John Lozoya PhD, Phone: ??[phone] Specimen Comment: A courtesy copy of this report has been sent to [facility] us Alma Echevarria MD LAB BLOOD ORDERABLES Fi nal Result [facility] - 01 documented in this encounter Visit Diagnoses Diagnosis Rheumatoid 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 (CMS/HCC) (HCC)- Primary High risk medication use documented in this encounter Care Teams Bridge Ironworker Relationship Specialty Start Date End Date Sylvia Dawson PA [address] [place] [address] PCP - General Internal Medicine 01/05/20 Erica Rodrigues MD [address] [place] [address] Radiation Oncologist Radiation Oncology 10/25/18 Gasper Kaba MD [address] [place] [address] Surgeon Surgical Oncology 10/25/18 Brandy Aguirre, ORGANIC GARDENING TEACHER [address] [place] [address] Nurse Practitioner Certified Clinical Nurse Specialist 10/25/18 Jo-Ann Morrow, PhD [address] [place] [address] Nurse Practitioner Radiation Oncology 10/25/18 Christina Louis NP [address] [place] [address] Nurse Practitioner Medical Oncology 10/25/18 documented as of this encounter
--- OUTSIDE RECORDS SUMMARY | 2024-04-24 05:55 | XMS_ITS | Encounter Summary ---
Author Organization [facility] Address [address] [place] [address] Care Team Providers Care Cleaning Manager Name Role Phone Erica Rodrigues MD Unavailable Gasper Kaba MD Unavailable Brandy Aguirre SWING DRIVER Unavailable [phone] Jo-Ann Morrow PhD Unavailable [phone] Christina Louis WELL FLOW OPERATOR Unavailable [phone] Sylvia Dawson Primary Care Provider [phone] Reason for Visit * Reason Onset Date Comments COVID-19 EVALUATION 05/08/2020 Encounter Details Date Type Department Care Team (Latest Contact Info) Description 05/08/2020 9:30 AM DATA SCIENTIST Clinical Support [facility] Testing Site - [address] [address] Exposure to COVID-19 virus (Primary Dx) Social History [...] file Legal Sex Female 3:42 AM DATA SCIENTIST Gender Identity Not on file Sexual Orientation Not on file 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 The patient meets testing criteria for COVID-19 based on symptoms which include: fever, cough, sore throat, body aches and nasal congestion. Collection of the swabs took place in the [facility] Collection Site. Complete documentation is noted in the patient chart and the [id number] LOS will be applied. SCIENTIST documented in this encounter Plan of Treatment Not on file documented as of this encounter Visit Diagnoses Diagnosis Exposure to COVID-19 virus- Primary documented in this encounter Additional Health Concerns Infection Onset Date Last Indicated Resolved Time COVID: Suspected 05/08/2020 05/08/2020 05/09/2020 11:35 PM DATA SCIENTIST documented as of this encounter Care Teams Cleaning Manager Relationship Specialty Start Date End Date Sylvia Dawson PA [address] [address] PCP - General Internal Medicine 01/05/20 Erica Rodrigues MD [address] [facility] [address] [place] [address] Radiation Oncologist Radiation Oncology 10/25/18 Gasper Kaba MD [address] [facility] [address] [place] [address] Surgeon Surgical Oncology 10/25/18 Brandy Aguirre CNS [address] [facility] [address] [place] [address] Nurse Practitioner Certified Clinical Nurse Specialist 10/25/18 Jo-Ann Morrow, PhD [address] [facility] [address] [place] [address] Nurse Practitioner Radiation Oncology 10/25/18 Christina Louis NP [address] [facility] [address] [place] [address] Nurse Practitioner Medical Oncology 10/25/18 documented as of this encounter
--- OUTSIDE RECORDS SUMMARY | 2024-04-24 05:55 | XMS_ITS | Encounter Summary ---
Author Organization [facility] Address [address] [place] [address] Phone Care Team Providers Care Offset Duplicating Machine Operator Name Role Phone Erica Rodrigues MD Unavailable Gasper Kaba MD Unavailable [phone] Brandy Aguirre ASSEMBLER BODY Unavailable Jo-Ann Morrow PhD Unavailable [phone] Christina Louis SOLUTION MAKER Unavailable [phone] Sylvia Dawson Primary Care Provider [phone] Encounter Details Date Type Department Care Team (Late st Contact Info) Description 03/21/2020 9:00 AM IT SYSTEMS ENGINEER Office Visit 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 Not on file Not on file Not on file documented as of this encounter Last Filed Vital Signs Vital Sign Reading Time Taken Comments Blood Pressure 111/76 03/21/2020 9:02 AM IT SYSTEMS ENGINEER Pulse 65 03/21/2020 9:02 AM IT SYSTEMS ENGINEER Temperature 36.7 ??C (98.1 ??F) 03/21/2020 9:02 AM CS T Respiratory Rate - - Oxygen Saturation - - Inhaled Oxygen Concentration - - Weight 62.4 kg (137 lb 9.6 oz) 03/21/2020 9:02 A M IT SYSTEMS ENGINEER Height 157.5 cm (5' 2 ) 03/21/2020 9:02 AM IT SYSTEMS ENGINEER Body Mass Index 25.17 03/21/2020 9:02 AM IT SYSTEMS ENGINEER documented in this encounter Progress Notes * Patricia Martinez MD - 03/21/2020 9:00 AM CST Subjective Patient is a 59 y.o. female with chief complaint of F/U RA. HPI: 59 yr old WF with seronegative rheumatoid arthritis and AIMSS seen today in follow-up. She has had a recent oncologic evaluation and is doing well. She has had no recent episodes of scleritis. We have been trying to D escalate therapy and she is currently On SSZ 500 mg daily for 1 month, MTX 15 mg since 6 to 8 weeks ago +200 g of hydroxychloroquine daily. She raises concerns because of a friend who is an keel press operator although she sees a retinal specialist to his reassured her about the low dosing of her hydroxychloroquine. She is requesting a repeat Vectra panel which we have not done since the onset of her disease. Currently she has no morning stiffness or gelling or any painful joints. She has experience hair loss that has improved somewhat with the lower dose of methotrexate. DISEASE TREATMENT HISTORY May 10 2015 -initiation of anastrazole and [...] bleeding ??? History of breast cancer ??? BMI 25.0-25.9,adult ??? Annual physical exam ??? Mixed hyperlipidemia ??? Colon cancer screening ??? Other fatigue ??? Lumbar back pain ??? Need for immunization against influenza ??? Chronic right shoulder pain ??? Need for shingles vaccine ??? Stress ??? Atrial tachycardia (CMS/HCC) Past Surgical History: Procedure Laterality Date ??? ABLATION ??? BREAST LUMPECTOMY ??? COLONOSCOPY 03/06/2020 ??? CYST REMOVAL ??? HYSTEROSCOPY ? ? PORT PLACEMENT CHEST >5 YEARS N/A 01/17/2015 ??? PORT REMOVAL N/A 04/10/2015 ??? RHINOPLASTY 1985 ??? THYROIDECTOMY, PARTIAL Left 1997 Dr. Demetris Aguilar ??? TONSILLECTOMY 1983 Immunization History Administered Date(s) Administered ??? Influenza, Quadrivalent, Cell Culture-based MDCK, Preservative Free, Antibiotic Free, Intramuscular 03/16/2018 ??? Influenza, Quadrivalent, Split, Preservative Free, Intramuscular 01/05/2020 ??? Influenza, Trivalent, Intramuscular 01/27/2018 ??? Influenza, Trivalent, Preservative Free, Intramuscular 02/24/2017 ??? Influenza, Unspecified 01/11/2019 ??? ZOSTER Recombinant 02/23/2020 Allergies Allergen Reactions ??? Adhesive Hives ??? Adhesive Tape-Silicones Rash ??? Cyclizine Other (See comments) and Hallucinations Reaction: Urinary retention Social History Tobacco Use ??? Smoking status: Never Smoker ??? Smokeless tobacco: Never Used Substance Use Topics ??? Alcohol use: Yes Alcohol/week: 1.0 standard drinks Types: 1 Shots of liquor per week Comment: social .[facility] Family History Problem Relation Age of Onset ??? Depression Sister ??? Hypertension Sister ??? Hypertension Mother ??? Anemia Mother ??? Heart disease Mother ??? Alzheimer's disease Father ??? Depression Father ??? Hypertension Father ??? Memory loss Father ??? Lung cancer Father ??? Cancer Maternal Grandfather ??? Depression Brother ??? Hypertension Brother ??? Memory loss Maternal Grandmother ??? Depression Paternal Grandmother ??? Stroke Paternal Grandmother ??? Arthritis Sister ??? Osteoporosis Sister ??? No Known Problems Sister ??? Hypertension Sister Review of Systems: All other systems are negative Vitals BP 111/76 Pulse 65 Temp 36.7 ??C (98.1 ??F) Ht 157.5 cm (5' 2 ) Wt 62.4 kg (137 lb 9.6 oz) LMP (LMP Unknown) BMI 25.17 kg/m?? Physical Exam 59-year-old white female with some frontal hair thinning Musculoskeletal examination reveals no tenderness or swelling in the standard 28 joint count Lab/Radiology/Diagnostic Review: Orders Only on 02/10/2020 Component Date Value Ref Range Status ??? WBC 02/17/2020 3.9 3.4 - 10.8 x10E3/uL Final ??? RBC 02/17/2020 3.65* 3.77 - 5.28 x10E6/uL Final ??? Hgb 02/17/2020 12.2 11.1 - 15.9 g/dL Final ??? Hct 02/17/2020 36.4 34.0 - 46.6 % Final ??? MCV 02/17/2020 100* 79 - 97 fL Final ??? MCH 02/17/2020 33.4* 26.6 - 33.0 pg Final ??? MCHC 02/17/2020 33.5 31.5 - 35.7 g/dL Final ??? Rdw 02/17/2020 12.4 11.7 - 15.4 % Final ??? Platelets 02/17/2020 210 150 - 450 x10E3/uL Final ??? Neutrophils 02/17/2020 50 Not Estab. % Final ??? Lymphs 02/17/2020 37 Not Estab. % Final ??? Monocytes 02/17/2020 11 Not Estab. % Final ??? Eosinophils 02/17/2020 1 Not Estab. % Final ??? Basophil pct 02/17/2020 1 Not Estab. % Final ??? Neutrophil abs 02/17/2020 1.9 1.4 - 7.0 x10E3/uL Final ??? Lymphs (Absolute) 02/17/2020 1.4 0.7 - 3.1 x10E3/uL Final ??? Monocyte abs 02/17/2020 0.4 0.1 - 0.9 x10E3/uL Final ??? Eosinophils, abs 02/17/2020 0.1 0.0 - 0.4 x10E3/uL Final ??? Basophils, abs 02/17/2020 0.0 0.0 - 0.2 x10E3/uL Final ??? Immature Granulocytes 02/17/2020 0 Not Estab. % Final ??? Immature Grans (Abs) 02/17/2020 0.0 0.0 - 0.1 x10E3/uL Final ??? Glucose 02/17/2020 81 65 - 99 mg/dL Final ??? BUN 02/17/2020 14 6 - 24 mg/dL Final ??? Creatinine, Serum 02/17/2020 0.72 0.57 - 1.00 mg/dL Final ? ? eGFR If NonAfricn Am 02/17/2020 92 >59 mL/min/1.73 Final ? ? eGFR If Africn Am 02/17/2020 106 >59 mL/min/1.73 Final ??? BUN/creat ratio 02/17/2020 19 9 - 23 Final ??? Sodium 02/17/2020 139 134 - 144 mmol/L Final ??? Potassium, sr 02/17/2020 4.3 3.5 - 5.2 mmol/L Final ??? Chloride 02/17/2020 101 96 - 106 mmol/L Final ??? CO2 02/17/2020 26 20 - 29 mmol/L Final ??? Calcium 02/17/2020 9.2 8.7 - 10.2 mg/dL Final ??? Protein, sr 02/17/2020 6.0 6.0 - 8.5 g/dL Final ??? Albumin 02/17/2020 4.3 3.8 - 4.9 g/dL Final ??? Globulin, Total 02/17/2020 1.7 1.5 - 4.5 g/dL Final ??? A/G Ratio 02/17/2020 2.5* 1.2 - 2.2 Final ??? Bilirubin, Total 02/17/2020 0.4 0.0 - 1.2 mg/dL Final ??? Alk phos 02/17/2020 44 39 - 117 IU/L Final ??? AST 02/17/2020 17 0 - 40 IU/L Final ??? ALT 02/17/2020 15 0 - 32 IU/L Final ??? Erythrocyte sedimentation rate 02/17/2020 2 0 - 40 mm/hr Final ? ? CRP 02/17/2020 <1 0 - 10 mg/L Final Assessment /Plan Problem List Items Addressed This Visit Rheumatology Problems Rheumatoid arthritis with negative rheumatoid factor (CMS/HCC) - Primary Today she presents with low disease activity [...] and that monitoring with OCT was predictive. Relevant Orders Vectra(R) DA Disease Activity SYSTEMS ENGINEER documented in this encounter Miscellaneous Notes * Assessment & Plan Note - Patricia Martinez MD - 03/21/2020 9:34 AM IT SYSTEMS ENGINEER Associated Problem(s): Rheumatoid arthritis with negative rheumatoid factor (HCC) Today she presents with low disease activity [...] and that monitoring with OCT was predictive. SYSTEMS ENGINEER documented in this encounter Plan of Treatment Not on file documented as of this encounter Procedures Procedure Name Priority Date/Time Associated Diagnosis Comments VECTRA(R) DA DISEASE ACTIVITY Routine 04/11/2020 11:38 AM IT SYSTEMS ENGINEER Rheumatoid arthritis with negative rheumatoid factor, involving unspecified site ([facility]) documented in this encounter Results * Vectra(R) DA Disease Activity (04/11/2020 11:38 AM IT SYSTEMS ENGINEER) Vectra(R) DA Score 27 [facility] - 01 Comment: Report Status: Final Risk of RP 3% 1-Year Risk of Radiographic Progression Change in Score Vectra Score Low at Two Consecutive Measures Vectra Score Interpretation Patient has had 2 consecutive Low Vectra Scores. ??The patient is at low risk of radiographic progression. Consider retesting periodically to ensure low level of inflammation or if clinical disease activity changes. Unadjusted Score 26 [facility] - 01 Comment: The unadjusted score calculated for this test result is 26 and is provided for information. Test Description Comment [facility] - 01 Comment: VECTRA SCORE DESCRIPTION Vectra Score measures the concentrations of 12 serum proteins. An algorithm is applied to these concentrations to calculate a disease activity score on a scale of 1 to 100. The Vectra Score is personalized based on the age, gender, and adiposity of the patient. The risk of RP is shown as a function of Vectra Score (see chart, right). The definition of RP is a 1-year total Sharp score change of >5 units. Increased risk of RP means a greater chance of irreversible joint damage. Patient serostatus may affect the risk of radiographic progression. Thus, the actual risk of radiographic progression may be higher if this patient is seropositive and lower if this patient is seronegative. CHANGE IN SCORE DESCRIPTION Change in Score is assessed in relation to the Minimally Important Difference (MID) for Vectra. The MID for patients with a Moderate or High Vectra Score is 8.0. VECTRA SCORES OVER TIME Complete score history shown on last page. As of March 16, 2017 the Vectra Score is adjusted based on the age, gender and adiposity of the patient. While the Vectra Score provides important objective data, it is intended for informational purposes only and does not constitute a recommendation. Medical management decisions should be made by a healthcare provider with an understanding of the full medical history and clinical assessment of the patient. For full test specifications and related publications, please visit [email or web address]. The Vectra test is intended for clinical use. [employer]. developed Vectra and determined its performance characteristics. The [facility] is certified under the Clinical Laboratory Improvement Amendments of 1988 (CLIA) as qualified to perform high complexity clinical testing and is a [employer] of [employer] Accredited Laboratory. Liquor Rectifier: Alfredo Conrad MD, FCAP [employer] [address] [place] [id number] [employer] F: ??P: [id number] Vectra(R) DA Level Low [facility] - 01 Comment: Vectra Disease Activity Levels: High: 45 to 100 Moderate: 30 to 44 Low: 1 to 29 Clinical Validation Comment [facility] - 01 Comment: Please note: The individual biomarker results, which are expressed to two significant figures, are required inputs into the algorithm used to calculate the Vectra Score. Clinical interpretation of individual biomarker levels, which have different weights in the Vectra algorithm, has not been established. MARSHALL Result 2.6 ug/mL [facility] - 01 Comment: RA Range: (0.29-85) RA Percentile: 56% C-RP 0.25 mg/L [facility] - 01 Comment: RA Range: (0.19-92) RA Percentile: 3% VCAM-1 Result 0.37 ug/mL [facility] - 01 Comment: RA Range: (0.39-1.2) RA Percentile: 1% IL-6 Result 2.6 pg/mL [facility] - 01 Comment: RA Range: (2.5-200) RA Percentile: 2% TNF-RI Result 0.79 ng/mL [facility] - 01 Comment: RA Range: (0.8-3.9) RA Percentile: 2% EGF result 53 pg/mL [facility] - 01 Comment: RA Range: (12-410) RA Percentile: 30% Inversely correlated with disease activity VEGF-A Result 86 pg/mL [facility] - 01 Comment: RA Range: (75-790) RA Percentile: 4% Leptin Result 22 ng/mL [facility] - 01 Comment: RA Range: (1.5-120) RA Percentile: 50% Resistin Result 5.2 ng/mL [facility] - 01 Comment: RA Range: (3.5-21) RA Percentile: 15% MMP-1 Result 8.2 ng/mL [facility] - 01 Comment: RA Range: (1.3-23) RA Percentile: 67% MMP-3 Result 14 ng/mL [facility] - 01 Comment: RA Range: (7.9-160) RA Percentile: 22% YKL-40 Result 21 ng/mL [facility] - 01 Comment: RA Range: (22-540) RA Percentile: 2% Footnote/History Comment [facility] - 01 Comment: RA Range: These 95% reference ranges were established from 325,781 patient samples tested at [facility]. RA Percentile: Subject's biomarker level relative to levels in RA patient specimens from which the RA ranges were determined Complete Vectra DA Score History: Collection Date: ? Score: 45 (unadjusted)* Collection Date: ? Score: 37 (unadjusted)* Collection Date: ? Score: 15 (unadjusted)* Collection Date: ? Score: 28 (unadjusted)* Collection Date: ? Score: 20 Collection Date: ? Score: 27 BLD 04/11/2020 11:3 8 AM IT SYSTEMS ENGINEER 04/11/2020 Narrative [facility] - 04/19/2020 9:06 PM IT SYSTEMS ENGINEER Performed at: ??01 - [facility] [address] [place] [address] ??[id number] Roll Forger: Alfredo Conrad MD, Phone: ??[phone] us Patricia L. Martinez MD LAB BLOOD ORDERABLES Final R esult [facility] - 01 documented in this encounter Visit Diagnoses Diagnosis Rheumatoid arthritis with negative rheumatoid factor, involving unspecified site (HCC)- Primary documented in this encounter Care Teams Offset Duplicating Machine Operator Relationship Specialty Start Date End Date Sylvia Dawson PA [address] [place] [address] PCP - General Internal Medicine 01/05/20 Erica Rodrigues MD [address] [place] [address] Radiation Oncologist Radiation Oncology 10/25/18 Gasper Kaba MD [address] [place] [address] Surgeon Surgical Oncology 10/25/18 Brandy Aguirre, ASSEMBLER BODY [address] [place] [address] Nurse Practitioner Certified Clinical Nurse Specialist 10/25/18 Jo-Ann Morrow, PhD [address] [place] [address] Nurse Practitioner Radiation Oncology 10/25/18 Christina Louis NP [address] [place] [address] Nurse Practitioner Medical Oncology 10/25/18 documented as of this encounter
--- OUTSIDE RECORDS SUMMARY | 2024-04-24 05:55 | XMS_ITS | Encounter Summary ---
Author Organization [facility] Address [address] [place] [address] Care Team Providers Care Bobbin Winder Tender Name Role Phone Erica Rodrigues MD Unavailable Gasper Kaba MD Unavailable Brandy Aguirre GREENS PICKER Unavailable [phone] Jo-Ann Morrow PhD Unavailable [phone] Christina Louis UNIVERSITY ARCHIVIST Unavailable [phone] Sylvia Dawson Primary Care Provider [phone] Encounter Details Date Type Department Care Team (Late st Contact Info) Description 05/11/2020 Orders Only [facility] Accountable Care Organization [address] [place] [address] Eboni Kaufman RN [address] [place] [address] [address] Social History Tobacco Use Types Packs/Day Years [...] on file Legal Sex Female 3:42 AM FORENSIC ENGINEER Gender Identity Not on file Sexual [...] Time COVID19 05/08/2020 05/08/2020 05/22/2020 3:07 AM FORENSIC ENGINEER documented as of this encounter Care Teams Bobbin Winder Tender Relationship Specialty Start Date End Date Sylvia Dawson PA [address] [place] [address] PCP - General Internal Medicine 01/05/20 Erica Rodrigues MD [address] [place] [address] Radiation Oncologist Radiation Oncology 10/25/18 Gasper Kaba MD [address] [place] [address] Surgeon Surgical Oncology 10/25/18 Brandy Aguirre, GREENS PICKER [address] [facility] [address] [place] [address] Nurse Practitioner Certified Clinical Nurse Specialist 10/25/18 Jo-Ann Morrow, PhD [address] [place] [address] Nurse Practitioner Radiation Oncology 10/25/18 Christina Louis NP [address] [place] [address] Nurse Practitioner Medical Oncology 10/25/18 documented as of this encounter
--- OUTSIDE RECORDS SUMMARY | 2024-04-24 05:55 | XMS_ITS | Encounter Summary ---
Author Organization [facility] Healthcare Address [address] [place] [address] Care Team Providers Care Supervisor Toy Parts Former Name Role Phone Erica Rodrigues MD Unavailable Gasper Kaba MD Unavailable [phone] Brandy Aguirre Unavailable [phone] Jo-Ann Morrow PhD Unavailable [phone] Christina Louis NP Unavailable [phone] Sylvia Dawson Primary Care Provider [phone] Reason for Referral * Diagnostic Imaging (Routine) - Closed Specialty Diagnoses / Procedures Referred By Niranjan farrell Referred To Contact Diagnoses History of breast cancer Procedures Screening Mammogram Bilateral W Brandy Vyas CNS Phone: tel: fax: [address] [address] Referral ID Status Reason Start Date Expiration Date Visits Re quested Visits Authorized [id number] Closed 02/09/2020 03/10/2021 1 1 H ASSEMBLER Reason for Visit * Diagnostic Imaging (Routine) - Closed Specialty Diagnoses / Procedures Referred By Niranjan farrell Referred To Contact Diagnoses History of breast cancer Procedures Screening Mammogram Bilateral W Brandy Vyas CNS Phone: tel: fax: [facility] [address] [place] [address] Referral ID Status Reason Start Date Expiration Date Visits Re quested Visits Authorized [id number] Closed 02/09/2020 03/10/2021 1 1 Encounter Details Date Type Department Care Team (Latest Contact Info) Description 02/20/2020 8:45 AM BENCH ASSEMBLER - 02/20/2020 11:59 PM BENCH ASSEMBLER Hospital Encounter 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 Not on file Not on file Not on file documented as of this encounter Medications at Time of Discharge aspirin 81 mg enteric coated tabletIndications :can't recall why they put her on this Take 1 tablet (81 mg total) by mouth 2 (two) times a week Tu and Thu03/17/2022 atenoloL (TENORMIN) 50 mg tablet Take 1 tablet (50 mg total) by mouth daily 90 tablet 3 12/14/2019 06/04/2020 FLUoxetine (PROzac) 10 mg tablet/capsule Take 1 tablet/capsul e (10 mg total) by mouth daily 90 tablet/capsule 2 01/05/2020 06/04/2020 FLUoxetine (PROzac) 20 mg capsule Take 1 capsule (20 mg total) by mouth daily 90 capsule 1 01/05/2020 09/04/2020 folic acid (FOLVITE) 1 mg tablet Take 2 tablets (2 mg total) by mouth daily 60 tablet 02/10/2020 03/19/2020 hydrOXYchloroQUIN E (PLAQUENIL) 200 mg tabletIndications :Rheumatoid Arthritis Take 1 tablet (200 mg total) by mouth daily 30 tablet 02/10/2020 03/15/2020 lisinopriL (PRINIVIL,ZESTRIL ) 40 mg tablet Take 1 tablet (40 mg total) by mouth daily 90 tablet 2 01/05/2020 06/20/2020 methotrexate 2.5 mg tabletIndications :autoimmune disease Take 8 tablets (20 mg total) by mouth once a week 96 tablet 1 08/23/2019 03/15/2020 predniSONE (DELTASONE) 10 mg tablet 11/10/2019 08/19/2021 sulfaSALAzine EN (AZULFIDINE EN) 500 mg EC tablet Take 1 tablet (500 mg total) by mouth 2 (two) times a day 60 tablet 02/10/2020 03/15/2020 valACYclovir (Valtrex) 500 mg tablet Take 1 tablet (500 mg total) by mouth daily 90 tablet 2 01/05/2020 11/02/2020 documented as of this encounter Discharge Disposition Disposition Code Departure Means Destination Discharge to home or self care documented in this encounter Miscellaneous Notes * Result Encounter Note - Brandy Aguirre CNS - 02/20/2020 11:59 PM BENCH ASSEMBLER I personally reviewed her bilateral screening mammograms read as benign by Dr. Kraft. She will follow up in 1 year when she is due for screening mammograms. H ASSEMBLER documented in this encounter Plan of Treatment Not on file documented as of this encounter Procedures Procedure Name Priority Date/Time Associated Diagnosis Comments SCREENING MAMMOGRAM BILATERAL W MARCELO Schedule Routine, Read Routine (OP Routine) 02/20/2020 9:25 AM BENCH ASSEMBLER History of breast cancer documented in this encounter Results * Screening Mammogram Bilateral W Marcelo (02/20/2020 9:25 AM BENCH ASSEMBLER) Anatomical Region Laterality Modality Breast Bilateral Mammography Narrative 02/21/2020 9:27 AM BENCH ASSEMBLER Mammogram Technique: Bilateral Digital Breast Tomosynthesis, Bilateral C-view 2D Screening mammogram. ??Views obtained: ??bilateral craniocaudal and bilateral mediolateral oblique. ??Computer Aided Detection was performed. Mammogram Findings: The present examination has been compared to prior imaging studies performed at [facility] on 12/03/2016, 02/09/2018 and 01/18/2019. The breasts [...] compared to prior imaging studies performed at [facility] on 12/03/2016, 02/09/2018 and 01/18/2019. The breasts are heterogeneously dense, which may obscure small masses. There is no suspicious abnormality in either breast. Findings compatible with prior right breast conservation therapy arenoted. Impression: Benign findings of previous breast conservation therapy. Annual screening mammography is recommended. OVERALL FINAL ASSESSMENT: BI-RADS CATEGORY 2: Benign. Brandy Aguirre WELDER PRODUCTION LINE GAS IMG MAMMO PROCEDURES Final R esult documented in this encounter Visit Diagnoses Diagnosis History of breast cancer Personal history of malignant neoplasm of breast documented in this encounter Care Teams Supervisor Toy Parts Former Relationship Specialty Start Date End Date Sylvia Dawson PA [address] [facility] [facility] [address] [place] [address] PCP - General Internal Medicine 01/05/20 Erica Rodrigues MD [address] [place] [address] Radiation Oncologist Radiation Oncology 10/25/18 Gasper Kaba MD [address] [place] [address] Surgeon Surgical Oncology 10/25/18 Brandy Aguirre, WELDER PRODUCTION LINE GAS [address] [place] [address] Nurse Practitioner Certified Clinical Nurse Specialist 10/25/18 Jo-Ann Morrow, PhD [address] [place] [address] Nurse Practitioner Radiation Oncology 10/25/18 Christina Louis, YARN DUMPER [address] [place] [address] Nurse Practitioner Medical Oncology 10/25/18 documented as of this encounter
--- OUTSIDE RECORDS SUMMARY | 2024-04-24 05:55 | XMS_ITS | Encounter Summary ---
Author Organization [facility] Address [address] [place] [address] Phone Care Team Providers Care Ten Pin Bowling Centre Manager Name Role Phone Erica Rodrigues MD Unavailable Gasper Kaba MD Unavailable [phone] Brandy Aguirre MEDICAL LAB TECH INSTRUCTOR Unavailable [phone] Jo-Ann Morrow PhD Unavailable [phone] Christina Louis CHEMICAL RECLAMATION EQUIPMENT OPERATOR Unavailable [phone] Sylvia Dawson Primary Care Provider [phone] Encounter Details Date Type Department Care Team (Late st Contact Info) Description 02/20/2020 Orders Only [facility] [address] [facility] Advanced Medicine 5th [place] [address] [place] [address] Brandy Aguirre, MEDICAL LAB TECH INSTRUCTOR [address] [address] History of right breast cancer (Primary Dx) [...] on file Legal Sex Female 3:42 AM ED CASE MANAGER Gender Identity Not on file Sexual Orientation Not on file 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 file Not on file Not on file documented as of this encounter Plan of Treatment Not on file documented as of this encounter Visit Diagnoses Diagnosis History of right breast cancer- Primary documented in this encounter Care Teams Ten [place]ling [place] Manager Relationship Specialty Start Date End Date Sylvia Dawson PA [address] [place] [address] [place] [address] PCP - General Internal Medicine 01/05/20 Erica Rodrigues MD [address] [place] [address] Radiation Oncologist Radiation Oncology 10/25/18 Gasper Kaba MD [address] [place] [address] Surgeon Surgical Oncology 10/25/18 Brandy Aguirre, MEDICAL LAB TECH INSTRUCTOR [address] [place] [address] Nurse Practitioner Certified Clinical Nurse Specialist 10/25/18 Jo-Ann Morrow, PhD [address] [place] [address] Nurse Practitioner Radiation Oncology 10/25/18 Christina Louis NP [address] [place] [address] Nurse Practitioner Medical Oncology 10/25/18 documented as of this encounter
--- OUTSIDE RECORDS SUMMARY | 2024-04-24 05:55 | XMS_ITS | Encounter Summary ---
Author Organization [facility] Address [address] [facility] [address] [place] [address] Care Team Providers Care Director Of Institutional Giving Name Role Phone Erica Rodrigues MD Unavailable Gasper Kaba MD Unavailable Brandy Aguirre BILINGUAL ACCOUNT MANAGER Unavailable [phone] Jo-Ann Morrow PhD Unavailable [phone] Christina Louis CAFETERIA DIRECTOR Unavailable [phone] Sylvia Dawson Primary Care Provider [phone] Encounter Details Date Type Department Care Team (Late st Contact Info) Description 04/24/2020 Orders Only [facility] Family Medicine [address] [place] [address] Provider, MD Ronda [address] [place] [address] Social History Tobacco Use Types Packs/Day Years Used Date Smoking Tobacco: Never Smokeless Tobacco: Never Alcohol Use Standard Drinks/Week Comments Yes 1 (1 standard drink = 0.6 oz pur e alcohol) social PHQ-2 Answer Date Recorded PHQ-2 Score 0 01/05/2020 Comments No Sex and Gender Information Value Date Recorded Sex Assigned at Not on file Legal Sex Female 3:42 AM CLINICAL TRIAL COORDINATOR Gender Identity Not on file Sexual Orientation Not on file 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 on file Not on file Not on file documented as of this encounter Plan of Treatment Not on file documented as of this encounter Procedures Procedure Name Priority Date/Time Associated Diagnosis Comments COLONOSCOPY Routine 03/06/2020 documented in this encounter Results * Colonoscopy (03/06/2020) Anatomical Region Laterality Modality Other us Historical Provider ENDOSCOPY PROCEDURES Mary l Result documented in this encounter Visit Diagnoses Not on filedocumented in this encounter Care Teams Director Of Institutional Giving Relationship Specialty Start Date End Date Sylvia Dawson PA [address] [place] [address] [place] [address] PCP - General Internal Medicine 01/05/20 Erica Rodrigues MD [address] [place] [address] Radiation Oncologist Radiation Oncology 10/25/18 Gasper Kaba MD [address] [place] [address] Surgeon Surgical Oncology 10/25/18 Brandy Aguirre, BILINGUAL ACCOUNT MANAGER [address] [place] [address] Nurse Practitioner Certified Clinical Nurse Specialist 10/25/18 Jo-Ann Morrow, PhD [address] [place] [address] Nurse Practitioner Radiation Oncology 10/25/18 Christina Louis NP [address] [place] [address] Nurse Practitioner Medical Oncology 10/25/18 documented as of this encounter
--- OUTSIDE RECORDS SUMMARY | 2024-04-24 05:55 | XMS_ITS | Encounter Summary ---
Author Organization [facility] [employer] [facility] Address [address] [place] [address] Phone Care Team Providers Care Economic Consultant Name Role Phone Erica Rodrigues MD Unavailable Gasper Kaba MD Unavailable Brandy Aguirre ACCOUNTING/FINANCE TUTOR Unavailable [phone] Jo-Ann Morrow PhD Unavailable [phone] Christina Louis COACH OPERATOR Unavailable [phone] Sylvia Dawson Primary Care Provider [phone] Encounter Details Date Type Department Care Team (Late st Contact Info) Description 02/17/[address] 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 STIGATION DIVISION SERGEANT documented in this encounter Plan of Treatment Not on file documented as of this encounter Visit Diagnoses Not on filedocumented in this encounter Care Teams Economic Consultant Relationship Specialty Start Date End Date Sylvia Dawson PA [address] [place] [address] PCP - General Internal Medicine 01/05/20 Erica Rodrigues MD [address] [place] [address] Radiation Oncologist Radiation Oncology 10/25/18 Gasper Kaba MD [address] [place] [address] Surgeon Surgical Oncology 10/25/18 Brandy Aguirre, ACCOUNTING/FINANCE TUTOR [address] [place] [address] Nurse Practitioner Certified Clinical Nurse Specialist 10/25/18 Jo-Ann Morrow, PhD [address] [facility] [address] [place] [address] Nurse Practitioner Radiation Oncology 10/25/18 Christina Louis NP [address] [place] [address] Nurse Practitioner Medical Oncology 10/25/18 documented as of this encounter
--- OUTSIDE RECORDS SUMMARY | 2024-04-24 05:55 | XMS_ITS | Encounter Summary ---
Author Organization [facility] Address [address] [place] [address] Phone Care Team Providers Care Director Of Marketing Google Performance Ads Name Role Phone Erica Rodrigues MD Unavailable Gasper Kaba MD Unavailable Brandy Aguirre PASSPORT SUPPORT MANAGER Unavailable [phone] Jo-Ann Morrow PhD Unavailable [phone] Christina Louis MUSICAL ENGINEER Unavailable [phone] Sylvia Dawson Primary Care Provider [phone] Encounter Details Date Type Department Care Team (Late st Contact Info) Description 02/10/2020 Orders Only [facility] Surgery [address] [facility] Advanced Medicine 5th [place] [address] [place] [address] Brandy Aguirre, PASSPORT SUPPORT MANAGER [address] [address] History of breast cancer (Primary Dx) Social [...] on file Legal Sex Female 3:42 AM CONFERENCE TRANSLATOR Gender Identity Not on file Sexual Orientation Not on file 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 on file Not on file Not on file documented as of this encounter Plan of Treatment Not on file documented as of this encounter Visit Diagnoses Diagnosis History of breast cancer- Primary Personal history of malignant neoplasm of breast documented in this encounter Care Teams Director Of Marketing Google Performance Ads Relationship Specialty Start Date End Date Sylvia Dawson PA [address] [facility] [place] [address] [place] [address] PCP - General Internal Medicine 01/05/20 Erica Rodrigues MD [address] [place] [address] Radiation Oncologist Radiation Oncology 10/25/18 Gasper Kaba MD [address] [facility] [address] [place] [address] Surgeon Surgical Oncology 10/25/18 Brandy Aguirre, PASSPORT SUPPORT MANAGER [address] [place] [address] Nurse Practitioner Certified Clinical Nurse Specialist 10/25/18 Jo-Ann Morrow, PhD [address] [facility] [address] [place] [address] Nurse Practitioner Radiation Oncology 10/25/18 Christina Louis, JENNI [address] [place] [address] Nurse Practitioner Medical Oncology 10/25/18 documented as of this encounter
--- OUTSIDE RECORDS SUMMARY | 2024-04-24 05:55 | XMS_ITS | Encounter Summary ---
Author Organization [facility] Address [address] [facility] [address] [place] [address] Care Team Providers Care Insurance Associate Name Role Phone Erica Rodrigues MD Unavailable Gasper Kaba MD Unavailable Brandy Aguirre VP CORPORATE DEVELOPMENT Unavailable [phone] Jo-Ann Morrow PhD Unavailable [phone] Christina Louis RFID TECHNICIAN Unavailable [phone] Sylvia Dawson Primary Care Provider [phone] Reason for Visit * Reason Comments Immunizations Encounter Details Date Type Department Care Team (Latest Contact Info) Description 05/01/2020 10:00 AM PARKING ENFORCER Clinical Support [facility] Family Medicine [address] [facility] [address] [place] [address] Need for shingles vaccine (Primary Dx) Social History Tobacco Use Types Packs/Day Years Used Date Smoking Tobacco: Never Smokeless Tobacco: Never Alcohol Use Standard Drinks/Week Comments Yes 1 (1 standard drink = 0.6 oz pur e alcohol) social PHQ-2 Answer Date Recorded PHQ-2 Score 0 01/05/2020 Comments No Sex and Gender Information Value Date Recorded Sex Assigned at Not on file Legal Sex Female 3:42 AM PARKING ENFORCER Gender Identity Not on file Sexual Orientation Not on file 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 file Not on file Not on file documented as of this encounter Plan of Treatment Not on file documented as of this encounter Visit Diagnoses Diagnosis Need for shingles vaccine- Primary Need for prophylactic vaccination and inoculation against varicella documented in this encounter Orders Immunization/Injection Count Last Ordered Date First Ordered Date ZOSTER (SHINGLES) HZV IM 1 05/01/2020 documented in this encounter Care Teams Insurance Associate Relationship Specialty Start Date End Date Sylvia Dawson PA [address] [address] [place] [address] PCP - General Internal Medicine 01/05/20 Erica Rodrigues MD [address] [place] [address] Radiation Oncologist Radiation Oncology 10/25/18 Gasper Kaba MD [address] [place] [address] Surgeon Surgical Oncology 10/25/18 Brandy Aguirre, VP CORPORATE DEVELOPMENT [address] [place] [address] Nurse Practitioner Certified Clinical Nurse Specialist 10/25/18 Jo-Ann Morrow, PhD [address] [place] [address] Nurse Practitioner Radiation Oncology 10/25/18 Christina Louis, RFID TECHNICIAN [address] [place] [address] Nurse Practitioner Medical Oncology 10/25/18 documented as of this encounter
--- OUTSIDE RECORDS SUMMARY | 2024-04-24 05:55 | XMS_ITS | Encounter Summary ---
Author Organization [facility] Address [address] [facility] [address] [place] [address] Care Team Providers Care Property Loss Insurance Claim Adjuster Name Role Phone Erica Rodrigues MD Unavailable Gasper Kaba MD Unavailable Brandy Aguirre KEYCASE ASSEMBLER Unavailable [phone] Jo-Ann Morrow PhD Unavailable [phone] Christina Louis SOCK AND STOCKING IRONER Unavailable [phone] Sylvia Dawson Primary Care Provider [phone] Encounter Details Date Type Department Care Team (Late st Contact Info) Description 05/23/2020 Orders Only [facility] [address] [place] [address] Scanning, Provider Social History Tobacco Use Types [...] on file Legal Sex Female 3:42 AM PROFESSIONAL SERVICES SPECIALIST Gender Identity Not on file Sexual Orientation Not on file 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 Not on file Not on file documented as of this encounter Plan of Treatment Not on file documented as of this encounter Procedures Procedure Name Priority Date/Time Associated Diagnosis Comments SCAN - RADIOLOGY/IMAGING 05/23/2020 documented in this encounter Results * SCAN - RADIOLOGY/IMAGING (05/23/2020) Anatomical Region Laterality Modality Other us Provider Scanning Final Result documented in this encounter Visit Diagnoses Not on filedocumented in this encounter Additional Health Concerns Infection Onset Date Last Indicated Resolved Time COVID: Recovered Comment:Added based on recent COVID infection. 05/22/2020 05/26/2020 09/19/2020 3:05 AM C DT documented as of this encounter Care Teams Property Loss Insurance Claim Adjuster Relationship Specialty Start Date End Date Sylvia Dawson PA [address] [facility] [address] [place] [address] PCP - General Internal Medicine 01/05/20 Erica Rodrigues MD [address] [facility] [address] [place] [address] Radiation Oncologist Radiation Oncology 10/25/18 Gasper Kaba MD [address] [facility] [address] [place] [address] Surgeon Surgical Oncology 10/25/18 Brandy Aguirre CNS [address] [place] [address] Nurse Practitioner Certified Clinical Nurse Specialist 10/25/18 Jo-Ann Morrow, PhD [address] [place] [address] Nurse Practitioner Radiation Oncology 10/25/18 Christina Louis NP [address] [facility] [address] [place] [address] Nurse Practitioner Medical Oncology 10/25/18 documented as of this encounter
--- OUTSIDE RECORDS SUMMARY | 2024-04-24 05:55 | XMS_ITS | Encounter Summary ---
Author Organization [facility] Address [address] [facility] [address] [place] [address] Care Team Providers Care Carburizer Name Role Phone Erica Rodrigues MD Unavailable Gasper Kaba MD Unavailable [phone] Brandy Aguirre PAPER STRIPPER Unavailable [phone] Jo-Ann Morrow PhD Unavailable [phone] Christina Louis SCALE RECLAMATION TENDER Unavailable [phone] Sylvia Dawson Primary Care Provider [phone] Reason for Visit * Reason Onset Date Comments Covid-19 Home Monitoring 05/19/2020 daily c alls Encounter Details Date Type Department Care Team (Late st Contact Info) Description 05/19/2020 Telephone [facility] Accountable Care Organization [address] [place] [address] Jessica Erazo MA [address] [place] [address] [address] [place] [address] Covid-19 Home Monitoring (daily calls ) Social History Tobacco Use Types Packs/Day [...] on file Legal Sex Female 3:42 AM ORTHODONTIC BAND MAKER Gender Identity Not on file Sexual Orientation Not on file 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 Pt reports will contact [facility]- Home Monitoring when d/c home . ODONTIC BAND MAKER * Telephone Encounter - Jessica Erazo MA - 05/19/2020 3:19 PM CST This patient is enrolled in the COVLA-19 Home Monitoring Program and had not responded to the dailysymptom questionnaire. Telephonic outreach attempted to assess patient???s symptoms. Home Monitoring symptom questionnaire was not completed today, because the patient could not be reached. Symptom Questionnaire to be completed by patient tomorrow. ODONTIC BAND MAKER documented in this encounter Plan of Treatment Not on file documented as of this encounter Visit Diagnoses Not on filedocumented in this encounter Additional Health Concerns Infection Onset Date Last Indicated Resolved Time [place] [id number] 05/08/2020 05/08/2020 05/22/2020 3:07 AM ORTHODONTIC BAND MAKER documented as of this encounter Care Teams Carburizer Relationship Specialty Start Date End Date Sylvia Dawson PA [address] [facility] [address] [place] [address] PCP - General Internal Medicine 01/05/20 Erica Rodrigues MD [address] [facility] [address] [place] [address] Radiation Oncologist Radiation Oncology 10/25/18 Gasper Kaba MD [address] [facility] [address] [place] [address] Surgeon Surgical Oncology 10/25/18 Brandy Aguirre CNS [address] [facility] [address] [place] [address] Nurse Practitioner Certified Clinical Nurse Specialist 10/25/18 Jo-Ann Morrow, PhD [address] [facility] [address] [facility] [address] [place] [address] Nurse Practitioner Radiation Oncology 10/25/18 Christina Louis, SCALE RECLAMATION TENDER [address] [facility] [address] [place] [address] Nurse Practitioner Medical Oncology 10/25/18 documented as of this encounter
--- OUTSIDE RECORDS SUMMARY | 2024-04-24 05:55 | XMS_ITS | Encounter Summary ---
Author Organization [facility] Address [address] [facility] [address] [place] [address] Care Team Providers Care Ict Support Engineer Name Role Phone Erica Rodrigues MD Unavailable Gasper Kaba MD Unavailable Brandy Aguirre HISTORIC SITES SUPERVISOR Unavailable [phone] Jo-Ann Morrow PhD Unavailable [phone] Christina Louis UPTWISTER TENDER Unavailable [phone] Sylvia Dawson Primary Care Provider [phone] Reason for Visit * Reason Onset Date Comments Covid-19 Home Monitoring 05/15/2020 Encounter Details Date Type Department Care Team (Late st Contact Info) Description 05/15/[address] 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 Pt reports SOB and cough was really bad on yesterday. Pt states it's better today. Pt reports SpO2 was 91-92% earlier today. Pt states SpO2 is at 93%now. Pt reports she's taking Delsym for the cough which helps. Pt denies chest pain or tightness. Pt states she's drinking hot tea. inflated pad buffer of each of the following symptoms the patient reported (complete all that apply): - Respiratory Distress: No - Dehydration: No - Fever: No - Chest Pain: No - Other symptoms: Yes, describe: See above. Instructions provided to patient: Continue to monitor symptoms. Follow-up Plan Provided to Patient: Continue to Self-Monitor. NDANT LODGING FACILITIES * Telephone Encounter - Mirna Erazo RN - 05/15/2020 10:05 AM ATTENDANT LODGING [employer]ACILITIES COVID Home Monitoring Unable to Reach Called patient for home monitoring follow-up of reported symptoms of SOB, cough and SpO2 drop on MyChart Cutter Hand. Unable to reach patient. Patient will receive follow up call today NDANT [employer]OD[employer] documented in this encounter Plan of Treatment Not on file documented as of this encounter Visit Diagnoses Not on filedocumented in this encounter Additional Health Concerns Infection Onset Date Last Indicated Resolved Time COVID19 05/08/2020 05/08/2020 05/22/2020 3:07 AM ATTENDANT LODGING FACILITIES documented as of this encounter Care Teams Ict Support Engineer Relationship Specialty Start Date End Date Sylvia Dawson PA [address] [place] [address] [place] [address] PCP - General Internal Medicine 01/05/20 Erica Rodrigues MD [address] [facility] [address] [place] [address] Radiation Oncologist Radiation Oncology 10/25/18 Gasper Kaba MD [address] [facility] [address] [place] [address] Surgeon Surgical Oncology 10/25/18 Brandy Aguirre, HISTORIC SITES SUPERVISOR [address] [facility] [address] [place] [address] Nurse Practitioner Certified Clinical Nurse Specialist 10/25/18 Jo-Ann Morrow, PhD [address] [facility] [address] [place] [address] Nurse Practitioner Radiation Oncology 10/25/18 Christina Louis, UPTWISTER TENDER [address] [facility] [address] [place] [address] Nurse Practitioner Medical Oncology 10/25/18 documented as of this encounter
--- OUTSIDE RECORDS SUMMARY | 2024-04-24 05:55 | XMS_ITS | Encounter Summary ---
Author Organization [facility] Address [address] [place] [address] Phone Care Team Providers Care Cost Engineer Name Role Phone Erica Rodrigues MD Unavailable Gasper Kaba MD Unavailable [phone] Brandy Aguirre DREDGE ENGINEER Unavailable Jo-Ann Morrow PhD Unavailable [phone] Christina Louis DESK MANAGER Unavailable [phone] Sylvia Dawson Primary Care Provider [phone] Encounter Details Date Type Department Care Team (Late st Contact Info) Description 05/14/2020 Telephone [facility] [address] [facility] Advanced Medicine 8th [place] [address] [place] [address] Lv Thompson MD [address] [facility] [address] [place] [address] Social History Tobacco Use Types [...] on file Legal Sex Female 3:42 AM EXPLOSIVE EXPERT Gender Identity Not on file Sexual Orientation Not on file 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 Denney by phone regarding her recent 30-day ambulatory monitor results. She reportsno significant cardiac change at this time but notes that she was diagnosed with COVID 9 days ago and is slowly recovering from mild illness. Ms. Denney's ambulatory monitor revealed multiple symptom episodes corresponding to sinus rhythm predominately with PVCs (and rare PACs). She had no evidence of sustained atrial or ventricular arrhythmias. Her overall PVC burden was >1% and she has no evidence of cardiomyopathy. Ms. Denney reports that she did not experience syncope while wearing themonitor, despite a symptom report of passing out. We advised Ms. Denney that she could consider addition of scheduled flecainide to her current medical regimen for management of symptomatic PVCs. This would be for symptom relief related to her ventricular ectopy. Ms. Denney prefers not to initiate antiarrhythmic drug therapy at this time and would like to continue on her current dose of atenolol. She will contact our office if her symptoms change or if she would like to seek alternate management strategies in future. MD GEORGE OneillA Social Scientistmohs surgeon/general dermatologist [facility] Division of Cardiology, Section of Electrophysiology 05/14/2020 3:47 PM OSIVE EXPERT documented in this encounter Plan of Treatment Not on file documented as of this encounter Visit Diagnoses Not on filedocumented in this encounter Additional Health Concerns Infection Onset Date Last Indicated Resolved Time COVID19 05/08/2020 05/08/2020 05/22/2020 3:07 AM EXPLOSIVE EXPERT documented as of this encounter Care Teams Cost Engineer Relationship Specialty Start Date End Date Sylvia Dawson PA [address] [facility] [address] [place] [address] PCP - General Internal Medicine 01/05/20 Erica Rodrigues MD [address] [facility] [address] [place] [address] Radiation Oncologist Radiation Oncology 10/25/18 Gasper Kaba MD [address] [facility] [address] [place] [address] Surgeon Surgical Oncology 10/25/18 Brandy Aguirre, DREDGE ENGINEER [address] [facility] [address] [place] [address] Nurse Practitioner Certified Clinical Nurse Specialist 10/25/18 Jo-Ann Morrow, PhD [address] [facility] [address] [place] [address] Nurse Practitioner Radiation Oncology 10/25/18 Christina Louis, DESK MANAGER [address] [facility] [address] [place] [address] Nurse Practitioner Medical Oncology 10/25/18 documented as of this encounter
--- OUTSIDE RECORDS SUMMARY | 2024-04-24 05:55 | XMS_ITS | Encounter Summary ---
Author Organization [facility] Address [address] [facility] [address] [place] [address] Care Team Providers Care Community Health Program Representative Name Role Phone Erica Rodrigues MD Unavailable Gasper Kaba MD Unavailable Brandy Aguirre ROTATING EQUIPMENT SPECIALIST Unavailable [phone] Jo-Ann Morrow PhD Unavailable [phone] Christina Louis PULP REFINER OPERATOR Unavailable [phone] Sylvia Dawson Primary Care Provider [phone] Reason for Visit * Reason Onset Date Comments Covid-19 Home Monitoring 05/17/2020 BRODIE mckeon Encounter Details Date Type Department Care Team (Late st Contact Info) Description 05/17/2020 Telephone [facility] Accountable Care Organization [address] [place] [address] Mirna Erazo RN [address] [place] [address] [address] [place] [address] Covid-19 Home Monitoring (RN escalation) Social History Tobacco Use Types Packs/Day Years [...] on file Legal Sex Female 3:42 AM STATION BAGGAGE AGENT Gender Identity Not on file Sexual Orientation Not on file 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 If I take a deep a breath I have to cough. Pt reports she started taking steroids and inhaler on yesterday. Pt states SpO2 is 87-88%. Requested Pt to recheck. Pt states SpO2 is now at 90%. Pt states she can't quite get a good breath. Pt reports she has a headache, diarrhea and temperature of 101.7. Pt denies coughing up any phlegm. Recommended going to ER for further evaluation. Pt states she's near [facility] and it's not a [facility] hospital. Pt states she prefers to contact PCP office first and get direction on where to go. senior web services developer of each of the following symptoms the patient reported (complete all that apply): - Respiratory Distress: No - Dehydration: No - Fever: Yes, describe: See above. - Chest Pain: No - Other symptoms: Yes, describe: See above. Instructions provided to patient: See above. Follow-up Plan Provided to Patient: Contact PCP office. ION BAGGAGE AGENT documented in this encounter Plan of Treatment Not on file documented as of this encounter Visit Diagnoses Not on filedocumented in this encounter Additional Health Concerns Infection Onset Date Last Indicated Resolved Time COVID19 05/08/2020 05/08/2020 05/22/2020 3:07 AM STATION BAGGAGE AGENT documented as of this encounter Care Teams Community Health Program Representative Relationship Specialty Start Date End Date Sylvia Dawson PA [address] [place] [address] PCP - General Internal Medicine 01/05/20 Erica Rodrigues MD [address] [facility] [address] [place] [address] Radiation Oncologist Radiation Oncology 10/25/18 Gasper Kaba MD [address] [place] [address] Surgeon Surgical Oncology 10/25/18 Brandy Aguirre, ROTATING EQUIPMENT SPECIALIST [address] [place] [address] Nurse Practitioner Certified Clinical Nurse Specialist 10/25/18 Jo-Ann Morrow, PhD [address] [place] [address] Nurse Practitioner Radiation Oncology 10/25/18 Christina Louis, PULP REFINER OPERATOR [address] [place] [address] Nurse Practitioner Medical Oncology 10/25/18 documented as of this encounter
--- OUTSIDE RECORDS SUMMARY | 2024-04-24 05:55 | XMS_ITS | Encounter Summary ---
Author Organization [facility] Address [address] [place] [address] Phone Care Team Providers Care Dry Color Tester Name Role Phone Erica Rodrigues MD Unavailable Gasper Kaba MD Unavailable Brandy Aguirre MERCHANDISING PROFESSOR Unavailable [phone] Jo-Ann Morrow PhD Unavailable [phone] Christina Louis FOOD INSPECTOR Unavailable [phone] Sylvia Dawson Primary Care Provider [phone] Reason for Visit * Reason Comments Follow-up * Consultation (Routine) - Closed Specialty Diagnoses / Procedures Referred By Contac t Referred To Contact Surgical Oncology Diagnoses History of right breast cancer Sylvia Dawson PA [address] [place] [address] Phone: tel: fax: [facility] (All Locations) Referral ID Status Reason Start Date Expiration Date V isits Requested Visits Authorized [id number] Closed Specialty Services Required 01/19/2020 02/17/2021 99 [phone] Encounter Details Date Type Department Care Team (Late st Contact Info) Description 02/20/2020 8:45 AM EDGE STAINER Office Visit [facility] Surgery [address] [facility] 5th [place] [address] [place] [address] Brandy Aguirre [facility] [address] [address] Encounter for follow-up surveillance of breast cancer (Primary Dx); History of right breast cancer; History of breast cancer Social History Tobacco [...] on file Legal Sex Female 3:42 AM EDGE STAINER Gender Identity Not on file Sexual Orientation Not on file 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 Not on file Not on file Not on file documented as of this encounter Last Filed Vital Signs Vital Sign Reading Time Taken Comments Blood Pressure - - Pulse - - Temperature - - Respiratory Rate - - Oxygen Saturation - - Inhaled Oxygen Concentration - - Weight 61.7 kg (136 lb) 02/20/2020 8:48 AM EDGE STAINER Height 157.5 cm (5' 2 ) 02/20/2020 8:48 AM EDGE STAINER Body Mass Index 24.87 02/20/2020 8:48 AM EDGE STAINER documented in this encounter Progress Notes * Brandy Aguirre CNS - 02/20/2020 8:45 AM CST DEPARTMENT OF SURGERY - [facility] [address] [place] [address], [place] [address] [place] [address] ??(PHONE)???[phone] (FAX) ?? NAME:?Yesika Denney :?1960 DATE:?02/20/20 ?? CHIEF COMPLAINT: Follow-up for right breast [...] breast for stage I, T1 cN0, M0, ER/ND positive, HER 2 negative, invasive ductal carcinoma. She had Oncotype DX recurrence score of 22 and underwent adjuvant chemotherapy of Taxotere and cyclophosphamide X4 as well as accelerated partial breast radiation. Shewas placed on anastrozole and had significant side effects of arthritic symptoms. She ultimately discontinued the medication and has done well since that time. Today she notes no palpable findings onher breast self-exam. 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 Past Medical History: Diagnosis Date ??? Benign left breast lump 06/2002 biopsy showed fibrosis and hyperplasia ??? Brain aneurysm ??? Brain aneurysm Followed by Dr. Chaudhari: Every 3 years ??? Breast cancer (CMS/HCC) ??? Depression ??? Elevated cholesterol ??? Hypertension ??? Migraine ??? RA (rheumatoid arthritis) (CMS/HCC) Past Surgical History: Procedure Laterality Date ??? ABLATION ??? BREAST LUMPECTOMY ??? CYST REMOVAL ??? HYSTEROSCOPY ? ? [...] Not on file Occupational History ??? 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 Financial resource strain: Not on file ??? Food insecurity Worry: Not on file Inability: Not on file ??? Transportation needs Medical: Not on file Non-medical: Not on file Tobacco Use ??? Smoking status: Never Smoker ??? Smokeless tobacco: Never Used Substance and Sexual Activity ??? Alcohol use: Yes Alcohol/week: 1.0 standard drinks Types: 1 Shots of liquor per week Comment: social ??? Drug use: No ??? Sexual activity: Yes Partners: Male control/protection: Post-menopausal Lifestyle ??? Physical activity Days per week: Not on file Minutes per session: Not on file ??? Stress: Not on file Relationships ??? Social connections Talks on phone: Not on file Gets together: Not on file Attends hoahaoism service: Not on file Active member of club or organization: Not on file Attends meetings of clubs or organizations: Not on file Relationship status: Not on file ??? Intimate partner violence Fear of current or ex partner: Not on file Emotionally abused: Not on file Physically abused: Not on file Forced sexual activity: Not on file Other Topics Concern ??? Not on file Social History Narrative ??? Not on file Family History Problem Relation [...] a week 11/02/18 Yes Patricia Perea MD [id number] (ONE DAILY WOMEN 50 PLUS) 400-120 mcg-mg [...] retention ?? PHYSICAL EXAMINATION: GENERAL: ??Well-developed, well-nourished 59 y.o. female in no apparent distress. EYES: [...] Her right breast has a well-healed incision there circumareolar edge. She has well-healed axillary incision. She has some density noted post surgery and radiation. She has no evidence of local recurrence, no mass, no palpable axillary mass, no skin changes, no nipple changes,no nipple discharge. The left breast has no mass, nipple discharge, palpable axillary mass, [...] ?? IMAGING: ??She underwent bilateral screening mammograms today, results pending. ?? IMPRESSION/RECOMMENDATIONS: ??I will personally review her bilateral screening mammograms and document the results on the radiology report. The patient will then be notified. She will follow up in 1 year when she is due for screening mammograms. I have encouraged her to continue her breast self-examination to notify us if she identifies any changes or problems. ? Brandy Aguirre, MSN, ACNS-BC ? Endocrine &??Oncologic Surgery ? I have reviewed the history, physical, assessment and plan and concur with the findings. ? Gasper ??Lorena Kaba M.D. global position system technician Cosigned by Gasper Kaba MD at 02/21/2020 12:30 PM EDGE STAINER STAINER STAINER documented in this encounter Plan of Treatment Not on file documented as of this encounter Visit Diagnoses Diagnosis Encounter for follow-up surveillance of breast cancer- Primary History of right breast cancer History of breast cancer Personal history of malignant neoplasm of breast documented in this encounter Orders Outpatient Referral Count Last Ordered Date Fir st Ordered Date AMB REFERRAL TO SURGICAL ONCOLOGY 1 020 documented in this encounter Care Teams Dry Color Tester Relationship Specialty Start Date End Date Sylvia Dawson PA [address] [facility] [address] [place] [address] PCP - General Internal Medicine 01/05/20 Erica Rodrigues MD [address] [address] Radiation Oncologist Radiation Oncology 10/25/18 Gasper Kaba MD [address] [facility] [address] [place] [address] Surgeon Surgical Oncology 10/25/18 Brandy Aguirre CNS [address] [facility] [address] [place] [address] Nurse Practitioner Certified Clinical Nurse Specialist 10/25/18 Jo-Ann Morrow, PhD [address] [facility] [address] [place] [address] Nurse Practitioner Radiation Oncology 10/25/18 Christina Louis FOOD INSPECTOR [address] [facility] [address] [place] [address] Nurse Practitioner Medical Oncology 10/25/18 documented as of this encounter
--- OUTSIDE RECORDS SUMMARY | 2024-04-24 05:55 | XMS_ITS | Encounter Summary ---
Author Organization [facility] Address [address] [place] [address] Phone Care Team Providers Care Automotive Service Director Name Role Phone Erica Rodrigues MD Unavailable Gasper Kaba MD Unavailable [phone] Brandy Aguirre TRANSFER PROFESSOR Unavailable [phone] Jo-Ann Morrow PhD Unavailable [phone] Christina Louis FINANCIAL INSTITUTION MANAGER Unavailable Sylvia Dawson Primary Care Provider [phone] Reason for Referral * (Routine) - Closed Specialty Diagnoses / Procedures Referred By Contac t Referred To Contact Diagnoses Palpitations Procedures ECG 12 lead Doroteo Thompson MD Phone: tel: fax: [facility] (All Locations) Referral ID Status Reason Start Date Expiration Date Visits Re quested Visits Authorized [id number] Closed 03/28/2020 04/27/2021 1 1 SFORMATION COACH * Cardiology (Routine) - Closed Specialty Diagnoses / Procedures Referred By Contac t Referred To Contact Diagnoses Palpitations Procedures Event Monitor, 30 Day Event Doroteo Thompson MD Phone: tel: fax: [facility] [address] [facility] [place] [address] Referral ID Status Reason Start Date Expiration Date Visits Re quested Visits Authorized [id number] Closed 03/28/2020 04/27/2021 1 1 SFORMATION COACH Encounter Details Date Type Department Care Team (Late st Contact Info) Description 03/28/2020 8:45 AM TRANSFORMATION COACH Office Visit [facility] Cardiology [address] [facility] Medical Office [address] [place] [address] Doroteo Thompson MD [address] [facility] [address] [place] [address] Palpitations (Primary Dx) Social History Tobacco Use Types Packs/Day Years Used Date Smoking Tobacco: Never Smokeless Tobacco: Never Alcohol Use Standard Drinks/Week Comments Yes 1 (1 standard drink = 0.6 oz pur e alcohol) social PHQ-2 Answer Date Recorded PHQ-2 Score 0 01/05/2020 Comments No Sex and Gender Information Value Date Recorded Sex Assigned at Not on file Legal Sex Female 3:42 AM TRANSFORMATION COACH Gender Identity Not on file Sexual Orientation Not on file 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 Not on file Not on file Not on file documented as of this encounter Last Filed Vital Signs Vital Sign Reading Time Taken Comments Blood Pressure 152/88 03/28/2020 9:11 AM TRANSFORMATION COACH Pulse 59 03/28/2020 9:11 AM TRANSFORMATION COACH Temperature 36.2 ??C (97.2 ??F) 03/28/2020 9:11 AM CS T Respiratory Rate - - Oxygen Saturation 98% 03/28/2020 9:11 AM TRANSFORMATION COACH Inhaled Oxygen Concentration - - Weight 61.3 kg (135 lb 1.9 oz) 03/28/2020 9:11 A M TRANSFORMATION COACH Height 160 cm (5' 3 ) 03/28/2020 9:11 AM TRANSFORMATION COACH Body Mass Index 23.94 03/28/2020 9:11 AM TRANSFORMATION COACH documented in this encounter Patient Instructions * Patient Instructions* Doroteo Thompson MD - 03/28/2020 8:45 AM TRANSFORMATION COACH No medication changes at this time Please wear 30-day event monitor SFORMATION COACH documented in this encounter Progress Notes * Doroteo Thompson MD - 03/28/2020 8:45 AM CST Cardiac Electrophysiology Clinic Visit Note Patient Name: Yesika Denney Date of : 1960 Primary Physician: Sylvia Dawson PA Visit Type: Initial visit Reason for Visit: Tachypalpitations Subjective: -Ms. Denney has a history of PVCs dating back to 2007 -More recently, she began experiencing episodes of tachycardia primarily with positional changes -She underwent 48 hour Holter monitoring in 05/2019 and had a single episode of tachycardia up to 106 bpm at 4AM lasting 2 minutes noted -This was diagnosed as atrial tachycardia and Ms. Denney was started on metoprolol by her PCP -A TTE in 05/2019 revealed normal cardiac function and no evidence of chamber enlargement -Metoprolol caused significant sleep issues and Ms. Denney had to be changed to atenolol -Ms. Denney has been followed by Dr. Harpal De León since her diagnosis of AT Past Medical History Past Medical History: Diagnosis Date ??? Benign left breast lump 06/2002 biopsy showed fibrosis and hyperplasia ??? Brain aneurysm ??? Brain aneurysm Followed by Dr. Chaudhari: Every 3 years ??? Breast cancer (CMS/HCC) ??? Depression ??? Elevated cholesterol ??? Hypertension ??? Migraine ??? RA (rheumatoid arthritis) (CMS/HCC) Past Surgical History Past Surgical History: Procedure Laterality Date ??? ABLATION ??? BREAST LUMPECTOMY ??? COLONOSCOPY 03/06/2020 ??? CYST REMOVAL ??? HYSTEROSCOPY ? ? PORT PLACEMENT CHEST >5 YEARS N/A 01/17/2015 ??? PORT REMOVAL N/A 04/10/2015 ??? RHINOPLASTY 1984 ??? THYROIDECTOMY, PARTIAL Left 1997 Dr. Demetris Aguilar ??? TONSILLECTOMY 1982 Medications Current Outpatient Medications: ??? aspirin 81 mg [...] mg tablet, , Disp: , Rfl: ??? valACYclovir (Valtrex) 500 mg tablet, Take 1 tablet (500 mg total) by mouth daily, Disp: 90 tablet, Rfl: 2 ??? sulfaSALAzine EN (AZULFIDINE EN) 500 mg EC tablet, Take 1 tablet (500 mg total) by mouth 2 (two) times a day (Patient not taking: Reported on 03/28/2020), Disp: 180 tablet, Rfl: 2 Allergies Allergies Allergen Reactions ??? Adhesive Hives ??? Adhesive Tape-Silicones Rash ??? Cyclizine Other (See comments) and Hallucinations Reaction: Urinary retention Family History Family History Problem Relation Age of Onset [...] Problems Sister ??? Hypertension Sister Social History Social History Socioeconomic History ??? Marital status: Spouse name: Not on file ??? Number of children: 3 ??? Years of education: Not on file ??? Highest education level: Not on file Occupational History ??? 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 Financial resource strain: [...] file Gets together: Not on file Attends advent service: Not on file Active member of [...] Social History Narrative ??? Not on file Review of Systems All other systems negative Objective Vitals: 03/28/20 0911 BP: 152/88 BP Location: Left arm Patient Position: Sitting Pulse: 59 Temp: 36.2 ??C (97.2 ??F) SpO2: 98% Weight: 61.3 kg (135 lb 1.9 oz) Height: 160 cm (5' 3 ) Physical Exam: GENERAL: NAD, A/Ox3, pleasant and cooperative to interview and examine HEENT: NC/AT, OP clear, MMM, PERRL, EOMI, anicteric sclera NECK: Supple, no JVD, no LAD, no thyromegaly, no appreciable carotid bruits CARDIAC: Bardycardic, regular rhythm, normal S1/S2, no M/R/G LUNGS: CTAB ABDOMEN: Soft, nontender, BS+ in all 4 quadrants EXTREMITIES: No peripheral edema, cyanosis, or clubbing NEURO: No gross motor or sensory deficits SKIN: Warm, well-perfused, dry and intact Visit Diagnoses (R00.2) Palpitations (primary encounter diagnosis) Plan: Event Monitor, 30 Day Event, ECG 12 lead Impression and Plan 1. Tachypalpitations -Ms. Denney has a documented history of both PVCs and atrial tachycardia on ambulatory cardiac monitoring -Her symptoms of tachypalpitations appear to be out of proportion with her arrhythmia burden -We have asked Ms. Denney to wear a 30-day event monitor in order to document all rhythm abnormalities over an extended period and to correlate her symptoms with rhythm disturbances -Should there be a relationship between her symptoms and isolated arrhythmias (such as SVT or PVCs), Ms. Denney may be a good candidate for antiarrhythmic therapy with flecainide -If sustained, symptomatic arrhythmias are present EP study and/or ablation may be necessary -At this time, Ms. Denney should continue her atenolol Respectfully, Doroteo Thompson MD CHAITANYA Paper Testing Supervisorortho/prosthetic aide [facility] Division of Cardiology, [place] [address] [place] [address] SFORMATION COACH documented in this encounter Plan of Treatment Not on file documented as of this encounter Procedures Procedure Name Priority Date/Time Associated Diagnosis Comments ECG 12-LEAD Routine 03/28/2020 Palpitations documented in this encounter Results * Event Monitor, 30 Day Event (03/28/2020 1:32 PM TRANSFORMATION COACH) Anatomical Region Laterality Modality Electrocardiogra phy 03/28/2020 11:3 0 AM TRANSFORMATION COACH Narrative 05/09/2020 8:46 AM TRANSFORMATION COACH Patient name: Yesika Denney Date of test: 03/28/2020 Type of Test: Event Monitor ([facility]) [facility] #: [id number] ?Location: [facility] : 1960 ??Age: 59 ??Sex: F Ref Physician(s): DOROTEO THOMPSON MD Interpreted by: Harpal Grider MD Playblazer Tech: Preventice Monitoring Service Diagnosis: Monitoring Service: Preventice Reason for Test: R00.2: Palpitations Monitor Used: Body Guardian Heart (MCT) ?? Enrollment Period: Apr 04 - May 03, 2020 [place] comments: Patient Instructions: Patient support person included in instructions Number of Transmissions Sent During Enrollment Period: 48 To obtain transmission tracing contact: [facility] ??[phone] Rhythm Summary: Bradycardia avg rate: 56 Bradycardia [...] The full scanned/data report is available in Ali. labeled MONITOR STRIPS PDF . This study [...] ? Sinus Rhythm w/Couplet PACs/PACs/Artifact ? 46 01/21/21 09:12 ?? 64.6 ?Flutter or Skipped Beats ? Sinus Rhythm w/PVCs ([id number])/Artifact ? 45 05/03/20 06:49 ?? 56.1 ?None [...] Sinus Bradycardia w/Interpolated PVC/A 12 04/09/20 18:06 ?? 67.2 ?Flutter or Skipped [...] Skipped Beats ? Sinus Rhythm w/Interpolated PVC/PVCs ([id number])/Artifact 6 ??04/06/20 18:08 ?? 73.6 ?None Reported [...] Beats ? Sinus Rhythm, Sinus Arrhythmia w/PVCs ([id number])/Artifact I have personally reviewed and interpreted this study. Procedure Note Harpal Grider MD - 05/09/2020 Patient name: Yesika Denney Date of test: 03/28/2020 Type of Test: Event Monitor ([facility]) [facility] #: [id number] Location: [facility] : 1960 Age: 59 Sex: F Ref Physician(s): DOROTEO THOMPSON MD Interpreted by: Harpal Grider MD Playblazer Tech: [employer]ice Monitoring Service Diagnosis: Monitoring Service: Preventice Reason for Test: R00.2: Palpitations Monitor Used: Body Guardian Heart (MCT) Enrollment Period: Apr 04 - May 03, 2020 [place] comments: Patient Instructions: Patient support person included in instructions Number of Transmissions Sent During Enrollment Period: 48 To obtain transmission tracing contact: [facility] [phone] Rhythm Summary: Bradycardia avg rate: 56 Bradycardia [...] The full scanned/data report is available in Ali. labeled MONITOR STRIPS PDF . This study [...] Flutter or Skipped Beats Sinus Rhythm w/PVCs ([id number])/Artifact 45 05/03/20 06:49 56.1 None Reported Sinus [...] Flutter or Skipped Beats Sinus Bradycardia w/Artifact 27 04/18/20 18:01 61.3 Flutter or Skipped Beats Sinus Rhythm w/Artifact 26 04/18/20 16:41 71.8 Flutter or Skipped Beats; DizzinesSinus Rhythm w/PACs/Artifact 25 04/17/20 18:14 63.1 Flutter or Skipped Beats Sinus Rhythm, Sinus Arrhythmia w/PVCs (1 in 1/min) 24 01/04/21 18:06 61.7 Flutter or Skipped Beats Sinus [...] or Skipped Beats Sinus Rhythm w/Interpolated PVC/PVCs (4mu1Kuo)/Artifact 6 04/06/20 18:08 73.6 None Reported Sinus [...] Skipped Beats Sinus Rhythm, Sinus Arrhythmia w/PVCs (8je6Nom)/Artifact I have personally reviewed and interpreted this study. us Doroteo Thompson MD [facility] Final Result * ECG 12 lead (03/28/2020) us Doroteo Thompson MD ECG ORDERABLES Edited Re sult - Final documented in this encounter Visit Diagnoses Diagnosis Palpitations- Primary Palpitations documented in this encounter Care Teams Automotive Service Director Relationship Specialty Start Date End Date Sylvia Dawson PA [address] [facility] [address] [place] [address] PCP - General Internal Medicine 01/05/20 Erica Rodrigues MD [address] [place] [address] Radiation Oncologist Radiation Oncology 10/25/18 Gasper Kaba MD [address] [place] [address] Surgeon Surgical Oncology 10/25/18 Brandy Aguirre, CARINA [address] [place] [address] Nurse Practitioner Certified Clinical Nurse Specialist 10/25/18 Jo-Ann Morrow, PhD [address] [place] [address] Nurse Practitioner Radiation Oncology 10/25/18 Christina Louis FINANCIAL INSTITUTION MANAGER [address] [place] [address] Nurse Practitioner Medical Oncology 10/25/18 documented as of this encounter
--- OUTSIDE RECORDS SUMMARY | 2024-04-24 05:55 | XMS_ITS | Encounter Summary ---
Author Organization [facility] Address [address] [place] [address] Care Team Providers Care Programmer Analyst Health It Name Role Phone Erica Rodrigues MD Unavailable Gasper Kaba MD Unavailable Brandy Aguirre NUTRITION SERVICES ASSOCIATE Unavailable [phone] Jo-Ann Morrow PhD Unavailable [phone] Christina Louis MAKE UP EDITOR Unavailable [phone] Sylvia Dawson Primary Care Provider [phone] Encounter Details Date Type Department Care Team (Late st Contact Info) Description 05/17/2020 Orders Only [facility] Health Information Management [address] [place] [address] Scanning, Provider Social History Tobacco Use Types [...] on file Legal Sex Female 3:42 AM FOCUSING MACHINE OPERATOR Gender Identity Not on file Sexual Orientation Not on file 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 on file Not on file Not on file documented as of this encounter Plan of Treatment Not on file documented as of this encounter Procedures Procedure Name Priority Date/Time Associated Diagnosis Comments SCAN - RADIOLOGY/IMAGING 05/17/2020 documented in this encounter Results * SCAN - RADIOLOGY/IMAGING (05/17/2020) Anatomical Region Laterality Modality Other us Provider Scanning Final Result documented in this encounter Visit Diagnoses Not on filedocumented in this encounter Additional Health Concerns Infection Onset Date Last Indicated Resolved Time COVID19 05/08/2020 05/08/2020 05/22/2020 3:07 AM FOCUSING MACHINE OPERATOR COVID: Recovered Comment:Added based on recent COVID infection. 05/22/2020 05/26/2020 09/19/2020 3:05 AM C DT documented as of this encounter Care Teams Programmer Analyst Health It Relationship Specialty Start Date End Date Sylvia Dawson PA [address] [address] PCP - General Internal Medicine 01/05/20 Erica Rodrigues MD [address] [facility] [address] [place] [address] Radiation Oncologist Radiation Oncology 10/25/18 Gasper Kaba MD [address] [facility] [address] [place] [address] Surgeon Surgical Oncology 10/25/18 Brandy Aguirre CNS [address] [facility] [address] [place] [address] Nurse Practitioner Certified Clinical Nurse Specialist 10/25/18 Jo-Ann Morrow, PhD [address] [facility] [address] [place] [address] Nurse Practitioner Radiation Oncology 10/25/18 Christina Louis, MAKE UP EDITOR [address] [facility] [address] [place] [address] Nurse Practitioner Medical Oncology 10/25/18 documented as of this encounter
--- OUTSIDE RECORDS SUMMARY | 2024-04-24 05:55 | XMS_ITS | Encounter Summary ---
Author Organization [facility] Address [address] [facility] [address] [place] [address] Care Team Providers Care Fabric And Accessories Estimator Name Role Phone Erica Rodrigues MD Unavailable Gasper Kaba MD Unavailable [phone] Brandy Aguirre SILK SCREEN PRINTER MACHINE Unavailable [phone] Jo-Ann Morrow PhD Unavailable [phone] Christina Louis SOFTWARE VALIDATION ENGINEER Unavailable [phone] Sylvia Dawson Primary Care Provider [phone] Encounter Details Date Type Department Care Team (Late st Contact Info) Description 05/20/2020 Orders Only [facility] Health Information Management [address] [place] [address] Scanning, Provider Social History Tobacco Use Types [...] on file Legal Sex Female 3:42 AM RELATIONSHIP ASSOC Gender Identity Not on file Sexual Orientation Not on file 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 on file Not on file Not on file documented as of this encounter Plan of Treatment Not on file documented as of this encounter Procedures Procedure Name Priority Date/Time Associated Diagnosis Comments SCAN - LABS 05/20/2020 documented in this encounter Results * SCAN - LABS (05/20/2020) us Provider Scanning Final Result documented in this encounter Visit Diagnoses Not on filedocumented in this encounter Additional Health Concerns Infection Onset Date Last Indicated Resolved Time COVID19 05/08/2020 05/08/2020 05/22/2020 3:07 AM RELATIONSHIP ASSOC COVID: Recovered Comment:Added based on recent COVID infection. 05/22/2020 05/26/2020 09/19/2020 3:05 AM C DT documented as of this encounter Care Teams Fabric And Accessories Estimator Relationship Specialty Start Date End Date Sylvia Dawson PA [address] [facility] [address] [place] [address] PCP - General Internal Medicine 01/05/20 Erica Rodrigues MD [address] [facility] [address] [place] [address] Radiation Oncologist Radiation Oncology 10/25/18 Gasper Kaba MD [address] [place] [address] Surgeon Surgical Oncology 10/25/18 Brandy Aguirre CNS [address] [place] [address] Nurse Practitioner Certified Clinical Nurse Specialist 10/25/18 Jo-Ann Morrow, PhD [address] [facility] [address] [place] [address] Nurse Practitioner Radiation Oncology 10/25/18 Christina Louis, JENNI [address] [facility] [address] [place] [address] Nurse Practitioner Medical Oncology 10/25/18 documented as of this encounter
--- OUTSIDE RECORDS SUMMARY | 2024-04-24 05:55 | XMS_ITS | Encounter Summary ---
Author Organization [facility] [employer] [facility] Address [address] [place] [address] Phone Care Team Providers Care Cake Stripper Name Role Phone Erica Rodrigues MD Unavailable Gasper Kaba MD Unavailable Brandy Aguirre LAND DEVELOPMENT MANAGER Unavailable Jo-Ann Morrow PhD Unavailable [phone] Christina Louis RN CARDIAC Unavailable [phone] Sylvia Dawson Primary Care Provider [phone] Encounter Details Date Type Department Care Team (Late st Contact Info) Description 04/09/2020 Telephone [facility] Cardiology [address] [facility] Advanced Medicine [address] [place] [address] [place] [address] Lv Thompson MD [address] [facility] [address] [place] [address] Social History Tobacco Use Types Packs/Day Years Used Date Smoking Tobacco: Never Smokeless Tobacco: Never Alcohol Use Standard Drinks/Week Comments Yes 1 (1 standard drink = 0.6 oz pur e alcohol) social PHQ-2 Answer Date Recorded PHQ-2 Score 0 01/05/2020 Comments No Sex and Gender Information Value Date Recorded Sex Assigned at Not on file Legal Sex Female 3:42 AM HAT MODEL Gender Identity Not on file Sexual Orientation Not on file 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 MODEL * Telephone Encounter - Lv Thompson MD - 04/09/2020 10:20 AM HAT MODEL Please advise, Ms. Denney that she should hit the symptom activator when she feels abnormal symptoms and document those symptoms in the accompanying logbook. We will review the strips at the end of the monitoring period unless there is a intermediate alarm. Jose Beltre MODEL * Telephone Encounter - Jose Morel - 04/09/2020 10:18 AM CST Please see below. When should she hit symptom activator? Thank you. MODEL * Telephone Encounter - Juanita Ford BS - 04/09/2020 10:12 AM HAT MODEL Jay Pt calling to see if she needs to hit the button every time she feels a heart flutter while wearingheart monitor. She would also like to know if Dr Thompson will review the whole strip. Please call to discuss. MODEL documented in this encounter Plan of Treatment Not on file documented as of this encounter Visit Diagnoses Not on filedocumented in this encounter Care Teams Cake Stripper Relationship Specialty Start Date End Date Sylvia Dawson PA [address] [place] [address] PCP - General Internal Medicine 01/05/20 Erica Rodrigues MD [address] [facility] [address] [facility] [address] [place] [address] Radiation Oncologist Radiation Oncology 10/25/18 Gasper Kaba MD [address] [facility] [facility] [address] [address] [facility] [address] [place] [address] Surgeon Surgical Oncology 10/25/18 Brandy Aguirre, LAND DEVELOPMENT MANAGER [address] [facility] [address] [facility] [address] [place] [address] Nurse Practitioner Certified Clinical Nurse Specialist 10/25/18 Jo-Ann Morrow, PhD [address] [facility] [address] [facility] [address] [place] [address] Nurse Practitioner Radiation Oncology 10/25/18 Christina Louis, RN CARDIAC [address] [facility] [address] [facility] [address] [place] [address] Nurse Practitioner Medical Oncology 10/25/18 documented as of this encounter
--- OUTSIDE RECORDS SUMMARY | 2024-04-24 05:55 | XMS_ITS | Encounter Summary ---
Author Organization [facility] [employer] [facility] Address [address] [place] [address] Phone Care Team Providers Care Director Payment Name Role Phone Erica Rodrigues MD Unavailable Gasper Kaba MD Unavailable Brandy Aguirre SHIP LINER Unavailable [phone] Jo-Ann Morrow PhD Unavailable [phone] Christina Louis GENERAL HELPER Unavailable [phone] Sylvia Dawson Primary Care Provider [phone] Encounter Details Date Type Department Care Team (Latest Contact Info) Description 03/27/2020 Orders Only [facility] Scanning, Provider Social History Tobacco Use Types Packs/Day Years Used Date Smoking Tobacco: Never Smokeless Tobacco: Never Alcohol Use Standard Drinks/Week Comments Yes 1 (1 standard drink = 0.6 oz pur e alcohol) social PHQ-2 Answer Date Recorded PHQ-2 Score 0 01/05/2020 Comments No Sex and Gender Information Value Date Recorded Sex Assigned at Not on file Legal Sex Female 3:42 AM SPRINKLER REPAIR TECHNICIAN Gender Identity Not on file Sexual Orientation Not on file 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 Not on file Not on file documented as of this encounter Plan of Treatment Not on file documented as of this encounter Procedures Procedure Name Priority Date/Time Associated Diagnosis Comments CARDIOLOGY DOCUMENT SCAN 03/27/2020 4:35 PM SPRINKLER REPAIR TECHNICIAN CARDIOLOGY DOCUMENT SCAN 03/27/2020 4:35 PM SPRINKLER REPAIR TECHNICIAN CARDIOLOGY DOCUMENT SCAN 03/27/2020 4:25 PM SPRINKLER REPAIR TECHNICIAN documented in this encounter Results * SCAN - CARDIOLOGY (03/27/2020 4:35 PM SPRINKLER REPAIR TECHNICIAN) Anatomical Region Laterality Modality Other us Provider Scanning [facility] PROCEDURES Final Result * SCAN - CARDIOLOGY (03/27/2020 4:35 PM SPRINKLER REPAIR TECHNICIAN) Anatomical Region Laterality Modality Other us Provider Scanning [facility] CARDIAC SERVICES PROCEDURES Final Result * SCAN - CARDIOLOGY (03/27/2020 4:25 PM SPRINKLER REPAIR TECHNICIAN) Anatomical Region Laterality Modality Other us Provider Scanning CV CARDIAC SERVICES PROCEDURES Final Result documented in this encounter Visit Diagnoses Not on filedocumented in this encounter Care Teams Director Payment Relationship Specialty Start Date End Date Sylvia Dawson PA [address] [facility] [address] [place] [id number] PCP - General Internal Medicine 01/05/20 Erica Rodrigues MD [address] [facility] [address] [place] [address] Radiation Oncologist Radiation Oncology 10/25/18 Gasper Kaba MD [address] [facility] [address] [place] [address] Surgeon Surgical Oncology 10/25/18 Brandy Aguirre CNS [address] [facility] [address] [place] [address] Nurse Practitioner Certified Clinical Nurse Specialist 10/25/18 Jo-Ann Morrow, PhD [address] [facility] [address] [place] [address] Nurse Practitioner Radiation Oncology 10/25/18 Christina Louis NP [address] [facility] [address] [place] [address] Nurse Practitioner Medical Oncology 10/25/18 documented as of this encounter
--- OUTSIDE RECORDS SUMMARY | 2024-04-24 05:56 | XMS_ITS | Encounter Summary ---
Author Organization [facility] Address [address] [place] [address] Phone Care Team Providers Care Gas Meter Prover Name Role Phone Mark Cerna DO Primary Care Provider [phone] Erica Rodrigues MD Unavailable Gasper Kaba MD Unavailable Brandy Aguirre FORENSIC ANTHROPOLOGIST Unavailable Jo-Ann Morrow PhD Unavailable [phone] Christina Louis TURNAROUND PLANNER Unavailable [phone] Encounter Details Date Type Department Care Team (Late st Contact Info) Description 01/05/2019 Orders Only [facility] [address] [facility] Advanced Medicine 5th [place] [address] [place] [address] Brandy Aguirre, FORENSIC ANTHROPOLOGIST [address] [id number] History of breast cancer (Primary Dx) Social History Tobacco Use Types Packs/Day Years Used Date Smoking Tobacco: Never Smokeless Tobacco: Never Alcohol Use Standard Drinks/Week Comments No 0 (1 standard drink = 0.6 oz pur e alcohol) Comments No Sex and Gender Information Value Date Recorded Sex Assigned at Not on file 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 Gender Identity Not on file Sexual Orientation [...] breast documented in this encounter Care Teams Gas Meter Prover Relationship Specialty Start Date End Date Mark Cerna DO PCP - General 09/04/16 01/17/19 Erica Rodrigues MD [address] [place] [address] Radiation Oncologist Radiation Oncology 10/25/18 Gasper Kaba MD [address] [place] [address] Surgeon Surgical Oncology 10/25/18 Brandy Aguirre, FORENSIC ANTHROPOLOGIST [address] [place] [address] Nurse Practitioner Certified Clinical Nurse Specialist 10/25/18 Jo-Ann Morrow, PhD [address] [place] [address] Nurse Practitioner Radiation Oncology 10/25/18 Christina Louis NP [address] [place] [address] Nurse Practitioner Medical Oncology 10/25/18 documented as of this encounter
--- OUTSIDE RECORDS SUMMARY | 2024-04-24 05:56 | XMS_ITS | Encounter Summary ---
Author Organization [facility] Address [address] [place] [address] Care Team Providers Care Greenhouse Laborer Name Role Phone Erica Rodrigues MD Unavailable Gasper Kaba MD Unavailable [phone] Brandy Aguirre STRAP CUTTING MACHINE OPERATOR Unavailable [phone] Jo-Ann Morrow PhD Unavailable Christina Louis INSURANCE ADJUSTOR Unavailable [phone] Martin Vazquez MD Primary Care Provider [phone] Reason for Visit * Diagnostic Imaging (Routine) - Closed Specialty Diagnoses / Procedures Referred By Contac t Referred To Contact Diagnoses Rheumatoid 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 (CMS/HCC) (HCC) Procedures XR Hand Right 3 or More Views Patricia Martinez MD Phone: tel: fax: Referral ID Status Reason Start Date Expiration Date Visits Re quested Visits Authorized [id number] Closed 02/28/2019 09/08/2020 1 1 Encounter Details Date Type Department Care Team (Latest Contact Info) Description 02/28/2019 11:20 AM COLLAR CUTTER - 02/28/2019 11:59 PM COLLAR CUTTER Hospital Encounter [facility] [address] [place] [id number] Patricia Martinez MD [address] [facility] [address] [place] [address] Discharge Disposition: Discharge to home or self care Social History Tobacco Use Types Packs/Day Years Used Date Smoking Tobacco: Never Smokeless Tobacco: Never Alcohol Use Standard Drinks/Week Comments Yes 0 (1 standard drink = 0.6 oz pur e alcohol) social Comments No Sex and Gender Information Value Date Recorded Sex Assigned at Not on file Legal Sex Female 3:42 AM COLLAR CUTTER Gender Identity Not on file Sexual Orientation [...] (two) times a week Tu and Thu03/17/2022 azithromycin (ZITHROMAX) 250 mg tablet 01/14/2019 03/30/2019 butalbital-acetam inophen-caffeine- codeine (FIORICET WITH CODEINE) 50-026-98-30 mg per capsule as needed 0 01/20/2019 03/30/2019 FLUOXETINE 10 mg capsule Take 20 mg by mouth daily 01/14/2019 01/05/2020 folic acid (FOLVITE) 1 mg tablet Take 2 tablets (2,000 mcg total) by mouth daily 180 tablet 3 02/28/2019 02/10/2020 hydroxychloroquin e (PLAQUENIL) 200 mg tablet Take 1 tablet (200 mg total) by mouth daily 90 tablet 1 02/28/2019 08/23/2019 ibuprofen (ADVIL,MOTRIN) 400 mg tablet Take by mouth. 03/30/2019 lisinopriL (PRINIVIL,ZESTRIL ) 20 mg tablet Take 20 mg by mouth daily 01/14/2019 09/22/2019 melatonin 5 mg tablet TAKE 1 TABLET BEDTIME 03/30/2019 methotrexate 2.5 mg tabletIndications :autoimmune disease Take 8 tablets (20 mg total) by mouth once a week 96 tablet 1 02/28/2019 05/06/2019 multivitamin-min- FA-ginkgo (ONE DAILY WOMEN 50 PLUS) 400-120 mcg-mg tablet daily. 03/30/2019 predniSONE (DELTASONE) 10 mg tablet Take 1 tablet (10 mg) by mouth daily 90 tablet 1 02/28/2019 06/14/2019 sulfaSALAzine EN (AZULFIDINE EN) 500 mg EC tablet Take 1 tablet (500 mg total) by mouth 2 (two) times a day 180 tablet 1 02/28/2019 08/23/2019 valACYclovir (VALTREX) 1 gram tablet Take 1,000 mg by mouth 2 (two) times a day as needed 03/30/2019 valACYclovir (VALTREX) 500 mg tablet daily. 01/05/2020 documented as of this encounter Discharge Disposition Disposition Code Departure Means Destination Discharge to home or self care documented in this encounter Plan of Treatment Not on file documented as of this encounter Procedures Procedure Name Priority Date/Time Associated Diagnosis Comments XR FOOT LEFT 3 OR MORE VIEWS Schedule Routine, Read Routine (OP Routine) 02/28/2019 11:36 AM COLLAR CUTTER Rheumatoid 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 (CMS/HCC) XR FOOT RIGHT 3 OR MORE VIEWS Schedule Routine, Read Routine (OP Routine) 02/28/2019 11:36 AM COLLAR CUTTER Rheumatoid 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 (CMS/HCC) XR HAND RIGHT 3 OR MORE VIEWS Schedule Routine, Read Routine (OP Routine) 02/28/2019 11:36 AM COLLAR CUTTER Rheumatoid 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 (CMS/HCC) XR HAND LEFT 3 OR MORE VIEWS Schedule Routine, Read Routine (OP Routine) 02/28/2019 11:36 AM COLLAR CUTTER Rheumatoid 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 (CMS/HCC) documented in this encounter Results * XR Foot Left 3 or More Views (02/28/2019 11:36 AM COLLAR CUTTER) Anatomical Region Laterality Modality Lower Extremities, Foot Left Computed Radiography 02/28/2019 11:3 8 AM COLLAR CUTTER Impressions 02/28/2019 11:38 AM COLLAR CUTTER 1. ??Unchanged nonspecific right 3rd metacarpal head erosion. ??No other radiographic evidence of inflammatory arthritis. Electronically signed by: Harpal Lozoya M.D. Narrative 02/28/2019 11:38 AM COLLAR CUTTER EXAMINATION: 1. ??Right hand 3+ views 2. ??Left and 3+ views 3. ??Right foot 3+ views 4. ??Left foot 3+ views HISTORY: ??Rheumatoid arthritis FINDINGS: 3 views each foot nonweightbearing, and 3 views each hand submitted with comparison 11/06/2016. Right hand: Small erosion involves the 3rd metacarpal head. ??There are no carpal erosions. ??Ulnar negative variance is present. ??There are no fractures. ??There is mild basal thumb joint osteoarthritis. Index finger distal interphalangeal joint osteoarthritis is present. There is no dorsal wrist soft tissue swelling. Left hand: There are no erosions. ??There are no fractures. ??Ulnar negative variance is present. ??There is mild basal thumb, 1st metacarpal phalangeal and polyarticular interphalangeal joint osteoarthritis. ??There is no dorsal wrist soft tissue swelling. Right foot: There are no erosions. ??There is mild 1st metatarsophalangeal joint osteoarthritis. ??There is mild soft tissue swelling about the ankle. ??There are no fractures. Left foot: There are no erosions. ??There are no fractures. ??There is mild 1st metatarsophalangeal joint osteoarthritis. ??Plantar calcaneal spur is noted. Procedure Note Harpal Lozoya MD - 02/28/2019 EXAMINATION: 1. Right hand 3+ views 2. Left and 3+ views 3. Right foot 3+ views 4. Left foot 3+ views HISTORY: Rheumatoid arthritis FINDINGS: 3 views each foot nonweightbearing, and 3 views each hand submitted with comparison 11/06/2016. Right hand: Small erosion involves the 3rd metacarpal head. There are no carpal erosions. Ulnar negative variance is present. There are no fractures. There is mild basal thumb joint osteoarthritis. Index finger distal interphalangeal joint osteoarthritis is present. There is no dorsal wrist soft tissue swelling. Left hand: There are no erosions. There are no fractures. Ulnar negative variance is present. There is mild basal thumb, 1st metacarpal phalangeal and polyarticular interphalangeal joint osteoarthritis. There is no dorsal wrist soft tissue swelling. Right foot: There are no erosions. There is mild 1st metatarsophalangeal joint osteoarthritis. There is mild soft tissue swelling about the ankle. There are no fractures. Left foot: There are no erosions. There are no fractures. There is mild 1st metatarsophalangeal joint osteoarthritis. Plantar calcaneal spur is noted. IMPRESSION: 1. Unchanged nonspecific right 3rd metacarpal head erosion. No other radiographic evidence of inflammatory arthritis. Electronically signed by: Harpal Lozoya M.D. us Patricia Martinez MD IMG XR PROCEDURES Final Resu lt * XR Foot Right 3 or More Views (02/28/2019 11:36 AM COLLAR CUTTER) Anatomical Region Laterality Modality Lower Extremities, Foot Right Computed Radiography 02/28/2019 11:3 8 AM COLLAR CUTTER Impressions 02/28/2019 11:38 AM COLLAR CUTTER 1. ??Unchanged nonspecific right 3rd metacarpal head erosion. ??No other radiographic evidence of inflammatory arthritis. Electronically signed by: Harpal Lozoya M.D. Narrative 02/28/2019 11:38 AM COLLAR CUTTER EXAMINATION: 1. ??Right hand 3+ views 2. ??Left and 3+ views 3. ??Right foot 3+ views 4. ??Left foot 3+ views HISTORY: ??Rheumatoid arthritis FINDINGS: 3 views each foot nonweightbearing, and 3 views each hand submitted with comparison 11/06/2016. Right hand: Small erosion involves the 3rd metacarpal head. ??There are no carpal erosions. ??Ulnar negative variance is present. ??There are no fractures. ??There is mild basal thumb joint osteoarthritis. Index finger distal interphalangeal joint osteoarthritis is present. There is no dorsal wrist soft tissue swelling. Left hand: There are no erosions. ??There are no fractures. ??Ulnar negative variance is present. ??There is mild basal thumb, 1st metacarpal phalangeal and polyarticular interphalangeal joint osteoarthritis. ??There is no dorsal wrist soft tissue swelling. Right foot: There are no erosions. ??There is mild 1st metatarsophalangeal joint osteoarthritis. ??There is mild soft tissue swelling about the ankle. ??There are no fractures. Left foot: There are no erosions. ??There are no fractures. ??There is mild 1st metatarsophalangeal joint osteoarthritis. ??Plantar calcaneal spur is noted. Procedure Note Harpal Lozoya MD - 02/28/2019 EXAMINATION: 1. Right hand 3+ views 2. Left and 3+ views 3. Right foot 3+ views 4. Left foot 3+ views HISTORY: Rheumatoid arthritis FINDINGS: 3 views each foot nonweightbearing, and 3 views each hand submitted with comparison 11/06/2016. Right hand: Small erosion involves the 3rd metacarpal head. There are no carpal erosions. Ulnar negative variance is present. There are no fractures. There is mild basal thumb joint osteoarthritis. Index finger distal interphalangeal joint osteoarthritis is present. There is no dorsal wrist soft tissue swelling. Left hand: There are no erosions. There are no fractures. Ulnar negative variance is present. There is mild basal thumb, 1st metacarpal phalangeal and polyarticular interphalangeal joint osteoarthritis. There is no dorsal wrist soft tissue swelling. Right foot: There are no erosions. There is mild 1st metatarsophalangeal joint osteoarthritis. There is mild soft tissue swelling about the ankle. There are no fractures. Left foot: There are no erosions. There are no fractures. There is mild 1st metatarsophalangeal joint osteoarthritis. Plantar calcaneal spur is noted. IMPRESSION: 1. Unchanged nonspecific right 3rd metacarpal head erosion. No other radiographic evidence of inflammatory arthritis. Electronically signed by: Harpal Lozoya M.D. us Patricia Martinez MD IMG XR PROCEDURES Final Resu lt * XR Hand Right 3 or More Views (02/28/2019 11:36 AM COLLAR CUTTER) Anatomical Region Laterality Modality Upper Extremities, Hand Right Computed Radiography 02/28/2019 11:3 8 AM COLLAR CUTTER Impressions 02/28/2019 11:38 AM COLLAR CUTTER 1. ??Unchanged nonspecific right 3rd metacarpal head erosion. ??No other radiographic evidence of inflammatory arthritis. Electronically signed by: Harpal Lozoya M.D. Narrative 02/28/2019 11:38 AM COLLAR CUTTER EXAMINATION: 1. ??Right hand 3+ views 2. ??Left and 3+ views 3. ??Right foot 3+ views 4. ??Left foot 3+ views HISTORY: ??Rheumatoid arthritis FINDINGS: 3 views each foot nonweightbearing, and 3 views each hand submitted with comparison 11/06/2016. Right hand: Small erosion involves the 3rd metacarpal head. ??There are no carpal erosions. ??Ulnar negative variance is present. ??There are no fractures. ??There is mild basal thumb joint osteoarthritis. Index finger distal interphalangeal joint osteoarthritis is present. There is no dorsal wrist soft tissue swelling. Left hand: There are no erosions. ??There are no fractures. ??Ulnar negative variance is present. ??There is mild basal thumb, 1st metacarpal phalangeal and polyarticular interphalangeal joint osteoarthritis. ??There is no dorsal wrist soft tissue swelling. Right foot: There are no erosions. ??There is mild 1st metatarsophalangeal joint osteoarthritis. ??There is mild soft tissue swelling about the ankle. ??There are no fractures. Left foot: There are no erosions. ??There are no fractures. ??There is mild 1st metatarsophalangeal joint osteoarthritis. ??Plantar calcaneal spur is noted. Procedure Note Harpal Lozoya MD - 02/28/2019 EXAMINATION: 1. Right hand 3+ views 2. Left and 3+ views 3. Right foot 3+ views 4. Left foot 3+ views HISTORY: Rheumatoid arthritis FINDINGS: 3 views each foot nonweightbearing, and 3 views each hand submitted with comparison 11/06/2016. Right hand: Small erosion involves the 3rd metacarpal head. There are no carpal erosions. Ulnar negative variance is present. There are no fractures. There is mild basal thumb joint osteoarthritis. Index finger distal interphalangeal joint osteoarthritis is present. There is no dorsal wrist soft tissue swelling. Left hand: There are no erosions. There are no fractures. Ulnar negative variance is present. There is mild basal thumb, 1st metacarpal phalangeal and polyarticular interphalangeal joint osteoarthritis. There is no dorsal wrist soft tissue swelling. Right foot: There are no erosions. There is mild 1st metatarsophalangeal joint osteoarthritis. There is mild soft tissue swelling about the ankle. There are no fractures. Left foot: There are no erosions. There are no fractures. There is mild 1st metatarsophalangeal joint osteoarthritis. Plantar calcaneal spur is noted. IMPRESSION: 1. Unchanged nonspecific right 3rd metacarpal head erosion. No other radiographic evidence of inflammatory arthritis. Electronically signed by: Harpal Lozoya M.D. us Patricia Martinez MD IMG XR PROCEDURES Final Resu lt * XR Hand Left 3 or More Views (02/28/2019 11:36 AM COLLAR CUTTER) Anatomical Region Laterality Modality Upper Extremities, Hand Left Computed Radiography 02/28/2019 11:3 8 AM COLLAR CUTTER Impressions 02/28/2019 11:38 AM COLLAR CUTTER 1. ??Unchanged nonspecific right 3rd metacarpal head erosion. ??No other radiographic evidence of inflammatory arthritis. Electronically signed by: Harpal Lozoya M.D. Narrative 02/28/2019 11:38 AM COLLAR CUTTER EXAMINATION: 1. ??Right hand 3+ views 2. ??Left and 3+ views 3. ??Right foot 3+ views 4. ??Left foot 3+ views HISTORY: ??Rheumatoid arthritis FINDINGS: 3 views each foot nonweightbearing, and 3 views each hand submitted with comparison 11/06/2016. Right hand: Small erosion involves the 3rd metacarpal head. ??There are no carpal erosions. ??Ulnar negative variance is present. ??There are no fractures. ??There is mild basal thumb joint osteoarthritis. Index finger distal interphalangeal joint osteoarthritis is present. There is no dorsal wrist soft tissue swelling. Left hand: There are no erosions. ??There are no fractures. ??Ulnar negative variance is present. ??There is mild basal thumb, 1st metacarpal phalangeal and polyarticular interphalangeal joint osteoarthritis. ??There is no dorsal wrist soft tissue swelling. Right foot: There are no erosions. ??There is mild 1st metatarsophalangeal joint osteoarthritis. ??There is mild soft tissue swelling about the ankle. ??There are no fractures. Left foot: There are no erosions. ??There are no fractures. ??There is mild 1st metatarsophalangeal joint osteoarthritis. ??Plantar calcaneal spur is noted. Procedure Note Harpal Lozoya MD - 02/28/2019 EXAMINATION: 1. Right hand 3+ views 2. Left and 3+ views 3. Right foot 3+ views 4. Left foot 3+ views HISTORY: Rheumatoid arthritis FINDINGS: 3 views each foot nonweightbearing, and 3 views each hand submitted with comparison 11/06/2016. Right hand: Small erosion involves the 3rd metacarpal head. There are no carpal erosions. Ulnar negative variance is present. There are no fractures. There is mild basal thumb joint osteoarthritis. Index finger distal interphalangeal joint osteoarthritis is present. There is no dorsal wrist soft tissue swelling. Left hand: There are no erosions. There are no fractures. Ulnar negative variance is present. There is mild basal thumb, 1st metacarpal phalangeal and polyarticular interphalangeal joint osteoarthritis. There is no dorsal wrist soft tissue swelling. Right foot: There are no erosions. There is mild 1st metatarsophalangeal joint osteoarthritis. There is mild soft tissue swelling about the ankle. There are no fractures. Left foot: There are no erosions. There are no fractures. There is mild 1st metatarsophalangeal joint osteoarthritis. Plantar calcaneal spur is noted. IMPRESSION: 1. Unchanged nonspecific right 3rd metacarpal head erosion. No other radiographic evidence of inflammatory arthritis. Electronically signed by: Harpal Lozoya M.D. us Patricia Martinez MD IMG XR PROCEDURES Final Resu lt documented in this encounter Visit Diagnoses Not on filedocumented in this encounter Care Teams Greenhouse Laborer Relationship Specialty Start Date End Date Martin Vazquez MD [address] [facility] [address] [place] [address] PCP - General Internal Medicine 01/18/19 01/04/20 Erica Rodrigues MD [address] [place] [address] Radiation Oncologist Radiation Oncology 10/25/18 Gasper Kaba MD [address] [place] [address] Surgeon Surgical Oncology 10/25/18 Brandy Aguirre CNS [address] [facility] [address] [place] [address] Nurse Practitioner Certified Clinical Nurse Specialist 10/25/18 Jo-Ann Morrow, PhD [address] [facility] [address] [place] [address] Nurse Practitioner Radiation Oncology 10/25/18 Christina Louis, INSURANCE ADJUSTOR [address] [facility] [address] [place] [address] Nurse Practitioner Medical Oncology 10/25/18 documented as of this encounter
--- OUTSIDE RECORDS SUMMARY | 2024-04-24 05:56 | XMS_ITS | Encounter Summary ---
Author Organization [facility] Address [address] [place] [address] Care Team Providers Care Group Home Supervisor Name Role Phone Erica Rodrigues MD Unavailable Gasper Kaba MD Unavailable [phone] Brandy Aguirre CHILDREN'S TUTOR NURSERY Unavailable [phone] Jo-Ann Morrow PhD Unavailable [phone] Christina Louis ELECTRIC MOTOR WINDERS ASSEMBLER Unavailable [phone] Martin Vazquez MD Primary Care Provider [phone] Reason for Visit * Reason Comments New Patient tachy * Consultation (Routine) - Closed Specialty Diagnoses / Procedures Referred By Contac t Referred To Contact Cardiology Diagnoses Paroxysmal SVT (supraventricular tachycardia) (HCC) Martin Vazquez MD Phone: tel: fax: [facility] Cardiology [address] [place] [address] Phone: tel: fax: Referral ID Status Reason Start Date Expiration Date V isits Requested Visits Authorized [id number] Closed Specialty Services Required 06/14/2019 12/23/2020 1 1 Encounter Details Date Type Department Care Team (Late st Contact Info) Description 06/14/2019 2:45 PM BAIT MAN Office Visit [facility] Cardiology [address] [place] [address] Harpal De León MD [address] [facility] [address] [place], [place] [id number] Paroxysmal SVT (supraventricular tachycardia) ([facility]) Social History Tobacco Use Types Packs/Day Years Used Date Smoking Tobacco: Never Smokeless Tobacco: Never Alcohol Use Standard Drinks/Week Comments Yes 1 (1 standard drink = 0.6 oz pur e alcohol) social Comments No Sex and Gender Information Value Date Recorded Sex Assigned at Not on file Legal Sex Female 3:42 AM BAIT MAN Gender Identity Not on file Sexual Orientation Not on file 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 Not on file Not on file Not on file documented as of this encounter Last Filed Vital Signs Vital Sign Reading Time Taken Comments Blood Pressure 98/68 06/14/2019 3:01 PM BAIT MAN Pulse 59 06/14/2019 3:01 PM BAIT MAN Temperature - - Respiratory Rate - - Oxygen Saturation 98% 06/14/2019 3:01 PM BAIT MAN Inhaled Oxygen Concentration - - Weight 62.6 kg (138 lb) 06/14/2019 3:01 PM BAIT MAN Height 160 cm (5' 3 ) 06/14/2019 3:01 PM BAIT MAN Body Mass Index 24.45 06/14/2019 3:01 PM BAIT MAN documented in this encounter Progress Notes * Harpal De León MD - 06/14/2019 2:45 PM CST [facility] 06/14/2019 CHIEF COMPLAINT New patient referral regarding history of supraventricular tachycardia HPI Yesika Denney is a 58 y.o. female with no previous history of cardiac problems that she is aware of and who indicates that she was informed of an arrhythmia by her PCP and told that she needed tosee a dog raiser BELLE. The patient states that she has been having occasional episodes of tachycardia and palpitations which are self-limited that last for 2-4 minutes each episode and do not occurred a predictable fashion and do not result in symptoms of any other distress such as chest pain dyspnea syncope or presyncope. She reported these symptoms to her PCP who requested an echocardiogram and a 48 hour Holter monitor to be done. These were done upstairs in the [facility] lab and were interpreted by Dr. Troy. As such I do not have the actual rhythm strips to review but according to his report she has normal sinus rhythm with normal heart rate variability and there were some supraventricular complexes and there was 1 episode of what he describes as an atrial tachycardia with a heart rate of only 106 beats per minute at 4:00 a.m. in the morning that lasted for 2 minutes. Therewere no ventricular arrhythmias identified and with this information she was referred today for consultation and told that she needed to be seen as soon as possible which leading her to believe that she had some sort of a dangerous problem. The echocardiogram demonstrated normal left ventricular systolic function and trivial mitral and tricuspid valve regurgitation. Her previous medical problems are mostly that of a history of breast cancer that occurred about 5 or 6 years ago which was treatedwith a lumpectomy at [facility] as well as chemotherapy. She has follows with oncology down there as well. After receiving the Holter report Dr. Vazquez adjusted the patient's medicine of very appropriately. There are LARA-inhibitor that she had been on for hypertension was reduced by 50% and a low dose of Toprol XL 25 mg daily was added to her regimen last week. Since then she states she feels well she does not notice any other symptoms she has not had any episodes of these palpitations since being started on the beta-dylan but that was just at the end of last week. She otherwise feels well she is an active lady that carries on normal activities and does not have any exertional symptoms to report. MEDICAL HISTORY Past Medical History: Diagnosis Date ??? Benign [...] 1997 Dr. Demetris Aguilar ??? TONSILLECTOMY 1982 Family History Problem Relation Age of Onset ??? Depression Sister ??? Hypertension Sister ??? Hypertension Mother ??? Anemia Mother ??? Heart disease Mother ??? Alzheimer's disease Father ??? Depression Father ??? Hypertension Father ??? Memory loss Father ??? Cancer Maternal Grandfather ??? Depression Brother ??? Hypertension Brother ??? Memory loss Maternal Grandmother ??? Depression Paternal Grandmother ??? Stroke Paternal Grandmother Social History Socioeconomic History ??? Marital status: Spouse name: Not on file ??? Number of children: 3 ??? Years of education: Not on file ??? Highest education level: Not on file Occupational History ??? 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 Financial resource strain: [...] file Gets together: Not on file Attends yazidi service: Not on file Active member of [...] Social History Narrative ??? Not on file (Not in a hospital admission) Allergies Allergen Reactions ??? Adhesive Hives ??? Adhesive Tape-Silicones Rash ??? Cyclizine Other (See comments) and Hallucinations Reaction: Urinary retention REVIEW OF SYSTEMS General ROS: negative for [...] for dry skin, eczema, pruritus and rash LABS AND OTHER DIAGNOSTIC TESTS Lab Results Component Value Date WBC 4.1 02/28/2019 HGB 12.9 02/28/2019 HCT 38.8 02/28/2019 MCV 102 (H) 02/28/2019 PLT 202 03/16/2018 No lab exists for component: LABALBU No results found for: CHOL No results found for: HDL No results found for: LDLCALC No results found for: TRIG No results found for: CHOLHDL PHYSICAL EXAM Vitals LMP (LMP Unknown) General appearance - alert, well appearing, and in no distress, oriented to person, place, and timeand acyanotic, in no respiratory distress Mental status [...] rashes, no suspicious skin lesions noted ASSESSMENT Palpitations with a rather unusual Holter monitor report with a supraventricular tachycardia being reported with a rather slow heart rate of 106. If this is accurate it probably represents some sort of ectopic atrial tachycardia rather than SVT at this relatively slow heart rate. Patient was started on a low-dose of metoprolol last week and feels well since then. Hypertension with very good control History of breast cancer 6 years ago that is under very good control she had the lesion resected and was treated with chemotherapy and is actively followed and thus far has no evidence of recurrent disease PLAN/RECOMMENDATIONS For now continue the beta-dylan since she is feeling well Reassured the patient and her that she does not appear to have a particularly dangerous arrhythmia of any kind and her normal LV ejection fraction would place her at low risk for significant/serious arrhythmias I will review personally the rhythm strips tomorrow NM upstairs in the echo lab so I can formulate my own opinion about the tachycardia that was described in the Holter report. Follow-up with me in 3 months Harpal De León MD MAN documented in this encounter Plan of Treatment Not on file documented as of this encounter Visit Diagnoses Diagnosis Paroxysmal SVT (supraventricular tachycardia) (HCC) documented in this encounter Discontinued Medications Medication Sig Discontinue Reason Start Date End Da te predniSONE (DELTASONE) 10 mg tablet Take 1 tablet (10 mg) by mouth daily Therapy completed 02/28/2019 06/14/2019 documented as of this encounter Historical Medications * This list may reflect changes made after this encounter. metoprolol XL (TOPROL-XL) 25 mg 24 hr tablet TK 1 T PO D 06/09/2019 08/26/2019 added in this encounter Orders Outpatient Referral Count Last Ordered Date Fir st Ordered Date AMB REFERRAL TO CARDIOLOGY 06/14/2019 documented in this encounter Care Teams Group Home Supervisor Relationship Specialty Start Date End Date Martin Vzaquez MD [address] [place] [address] PCP - General Internal Medicine 01/18/19 01/04/20 Erica Rodrigues MD [address] [place] [address] Radiation Oncologist Radiation Oncology 10/25/18 Gasper Kaba MD [address] [place] [address] Surgeon Surgical Oncology 10/25/18 Brandy Aguirre, CHILDREN'S TUTOR NURSERY [address] [place] [address] Nurse Practitioner Certified Clinical Nurse Specialist 10/25/18 Jo-Ann Morrow, PhD [address] [place] [address] Nurse Practitioner Radiation Oncology 10/25/18 Christina Louis NP [address] [place] [address] Nurse Practitioner Medical Oncology 10/25/18 documented as of this encounter
--- OUTSIDE RECORDS SUMMARY | 2024-04-24 05:56 | XMS_ITS | Encounter Summary ---
Author Organization [facility] Care Team Providers Care Telecommunications Analyst Name Role Phone Erica Rodrigues MD Unavailable Gasper Kaba MD Unavailable [phone] Brandy Aguirre WRITING CENTER DIRECTOR Unavailable [phone] Jo-Ann Morrow PhD Unavailable [phone] Christina Louis STRAND BUNCHER FINE WIRE Unavailable [phone] Martin Vazquez MD Primary Care Provider [phone] Encounter Details Date Type Department Care Team (Latest Contact Info) Description 01/18/2019 Travel Social History Tobacco Use Types Packs/Day Years Used Date Smoking Tobacco: Never Smokeless Tobacco: Never Alcohol Use Standard Drinks/Week Comments No 0 (1 standard drink = 0.6 oz pur e alcohol) Comments No Sex and Gender Information Value Date Recorded Sex Assigned at Not on file Legal Sex Female 3:42 AM PHYSICAL MEDICINE PHYSICIAN Gender Identity Not on file Sexual Orientation Not on file 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 on file Not on file Not on file documented as of this encounter Plan of Treatment Not on file documented as of this encounter Visit Diagnoses Not on filedocumented in this encounter Care Teams Telecommunications Analyst Relationship Specialty Start Date End Date Martin Vazquez MD [address] [place] [address] PCP - General Internal Medicine 01/18/19 01/04/20 Erica Rodrigues MD [address] [place] [address] Radiation Oncologist Radiation Oncology 10/25/18 Gasper Kaba MD [address] [place] [address] Surgeon Surgical Oncology 10/25/18 Brandy Aguirre, WRITING CENTER DIRECTOR [address] [place] [address] Nurse Practitioner Certified Clinical Nurse Specialist 10/25/18 Jo-Ann Morrow, PhD [address] [place] [address] Nurse Practitioner Radiation Oncology 10/25/18 Christina Louis STRAND BUNCHER FINE WIRE [address] [place] [address] Nurse Practitioner Medical Oncology 10/25/18 documented as of this encounter
--- OUTSIDE RECORDS SUMMARY | 2024-04-24 05:56 | XMS_ITS | Encounter Summary ---
Author Organization [facility] [facility] Address [address] [place] [address] Phone Care Team Providers Care 3Rd Mate Name Role Phone Erica Rodrigues MD Unavailable Gasper Kaba MD Unavailable [phone] Brandy Aguirre CANOPY INSPECTOR Unavailable [phone] Jo-Ann Morrow PhD Unavailable [phone] Christina Louis LEAD TINNER Unavailable [phone] Martin Vazquez MD Primary Care Provider [phone] Encounter Details Date Type Department Care Team (Late st Contact Info) Description 06/06/2019 Orders Only [facility] Scanning, Provider Social History Tobacco Use Types Packs/Day Years Used Date Smoking Tobacco: Never Smokeless Tobacco: Never Alcohol Use Standard Drinks/Week Comments Yes 1 (1 standard drink = 0.6 oz pur e alcohol) social Comments No Sex and Gender Information Value Date Recorded Sex Assigned at Not on file Legal Sex Female 3:42 AM MACHINE BUNCH MAKER Gender Identity Not on file Sexual Orientation Not on file 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 Not on file Not on file documented as of this encounter Plan of Treatment Not on file documented as of this encounter Procedures Procedure Name Priority Date/Time Associated Diagnosis Comments SCAN - LABS 06/06/2019 documented in this encounter Results * SCAN - LABS (06/06/2019) us Provider Scanning Final Result documented in this encounter Visit Diagnoses Not on filedocumented in this encounter Care Teams 3Rd Mate Relationship Specialty Start Date End Date Martin Vazquez MD [address] [place] [address] PCP - General Internal Medicine 01/18/19 01/04/20 Erica Rodrigues MD [address] [place] [address] Radiation Oncologist Radiation Oncology 10/25/18 Gasper Kaba MD [address] [place] [address] Surgeon Surgical Oncology 10/25/18 Brandy Aguirre, CANOPY INSPECTOR [address] [place] [address] Nurse Practitioner Certified Clinical Nurse Specialist 10/25/18 Jo-Ann Morrow, PhD [address] [place] [address] Nurse Practitioner Radiation Oncology 10/25/18 Christina Louis, LEAD TINNER [address] [place] [address] Nurse Practitioner Medical Oncology 10/25/18 documented as of this encounter
--- OUTSIDE RECORDS SUMMARY | 2024-04-24 05:56 | XMS_ITS | Encounter Summary ---
Author Organization [facility] Address [address] [place] [address] Phone Care Team Providers Care Braided Rug Maker Name Role Phone Mark Cenra DO Primary Care Provider [phone] Erica Rodrigues MD Unavailable Gasper Kaba MD Unavailable Brandy Aguirre Unavailable [phone] Jo-Ann Morrow PhD Unavailable [phone] Christina Louis ELECTRICAL SYSTEMS DRAFTER Unavailable Reason for Referral * Diagnostic Imaging (Routine) - Closed Specialty Diagnoses / Procedures Referred By Contac t Referred To Contact Diagnoses History of breast cancer Procedures Screening Mammogram Bilateral W Marcelo Brandy Aguirre CNS Phone: tel: fax: [facility] [address] [place] [address] Referral ID Status Reason Start Date Expiration Date Visits Re quested Visits Authorized [id number] Closed 01/11/2019 07/22/2020 1 1 Encounter Details Date Type Department Care Team (Late st Contact Info) Description 01/11/2019 Orders Only [facility] Surgery [address] [facility] [facility] [address] [place] [address] [place] [address] Brandy Aguirre, LABORER LIVESTOCK [address] [place] [address] History of breast cancer (Primary Dx) Social History Tobacco Use Types Packs/Day Years Used Date Smoking Tobacco: Never Smokeless Tobacco: Never Alcohol Use Standard Drinks/Week Comments No 0 (1 standard drink = 0.6 oz pur e alcohol) Comments No Sex and Gender Information Value Date Recorded Sex Assigned at Not on file Legal Sex Female 3:42 AM CHILD WELFARE SPECIALIST Gender Identity Not on file Sexual Orientation Not on file 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 ??Views obtained: ??bilateral craniocaudal and bilateral mediolateral oblique. ??Computer Aided Detection was performed. Mammogram Findings: The present examination has been compared to prior imaging studies performed at [facility] on 11/08/2015, 12/03/2016 and 02/09/2018. There are scattered areas of fibroglandular density. There is no suspicious abnormality in either breast. Findings compatible with prior right breast conservation therapy are noted. Impression: Finding is benign. Annual screening mammography is recommended. OVERALL FINAL ASSESSMENT: BI-RADS CATEGORY 2: ??Benign. Procedure Note Kaye Gibson MD - 01/19/2019 Mammogram Technique: Bilateral Digital Breast Tomosynthesis, Bilateral C-view 2D Screening mammogram. Views obtained: bilateral craniocaudal and bilateral mediolateral oblique. Computer Aided Detection was performed. Mammogram Findings: The present examination has been compared to prior imaging studies performed at [facility] on 11/08/2015, 12/03/2016 and 02/09/2018. There are scattered areas of fibroglandular density. There is no suspicious abnormality in either breast. Findings compatible with prior right breast conservation therapy arenoted. Impression: Finding is benign. Annual screening mammography is recommended. OVERALL FINAL ASSESSMENT: BI-RADS CATEGORY 2: Benign. Brandy Aguirre [facility] IMG MAMMO PROCEDURES Final R esult documented in this encounter Visit Diagnoses Diagnosis History of breast cancer- Primary Personal history of malignant neoplasm of breast History of breast cancer Personal history of malignant neoplasm of breast documented in this encounter Care Teams Braided Rug Maker Relationship Specialty Start Date End Date Mark Cerna DO PCP - General 09/04/16 01/17/19 Erica Rodrigues MD [address] [place] [address] Radiation Oncologist Radiation Oncology 10/25/18 Gasper Kaba MD [address] [place] [address] Surgeon Surgical Oncology 10/25/18 Brandy Aguirre CNS [address] [place] [address] Nurse Practitioner Certified Clinical Nurse Specialist 10/25/18 Jo-Ann Morrow, PhD [address] [place] [address] Nurse Practitioner Radiation Oncology 10/25/18 Christina Louis NP [address] [place] [address] Nurse Practitioner Medical Oncology 10/25/18 documented as of this encounter
--- OUTSIDE RECORDS SUMMARY | 2024-04-24 05:56 | XMS_ITS | Encounter Summary ---
Author Organization [facility] Address [address] [place] [address] Care Team Providers Care Director Enterprise Data Architecture Name Role Phone Erica Rodrigues MD Unavailable Gasper Kaba MD Unavailable [phone] Brandy Aguirre URANIUM PROCESSING SUPERVISOR Unavailable [phone] Jo-Ann Morrow PhD Unavailable [phone] Christina Louis SIDEWALK REPAIRER Unavailable [phone] Martin Vazquez MD Primary Care Provider [phone] Encounter Details Date Type Department Care Team (Late st Contact Info) Description 08/26/2019 Telephone [facility] Cardiology [address] [facility] [address] [facility] [address] [place] [address] Harpal De León MD [address] [facility] [address] [facility] [address] [place] [address] Social History Tobacco Use Types Packs/Day Years Used Date Smoking Tobacco: Never Smokeless Tobacco: Never Alcohol Use Standard Drinks/Week Comments Yes 1 (1 standard drink = 0.6 oz pur e alcohol) social Comments No Sex and Gender Information Value Date Recorded Sex Assigned at Not on file Legal Sex Female 3:42 AM FREELANCE OPERATOR Gender Identity Not on file Sexual Orientation Not on file 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 This is being brought to my attention because the PCP change her to a different beta-dylan. No further action on my part would appear to be necessary * Telephone Encounter - Irlanda Amato RN - 08/26/2019 12:07 PM CDT Spoke with the patient. She states she asked her PCP Dr. Vazquez to switch her Metoprolol XL to Atenolol because she was experiencing more palpitations and difficulty sleeping. She tried taking the metoprolol in the morning, but this did not help and she researched online and saw atenolol had fewer side effects and was less likely to cause sleep disturbance. She has now been on Atenolol for about one month and doing well. Will forward to Dr. De León to make aware and update medication list. * Telephone Encounter - Vivien Kaba - 08/26/2019 11:09 AM CDT Pt called to discuss her atenolol [address] Vazquez.switch her to instead of her the metoprolol XL 25 mg 24 hr tabs. documented in this encounter Plan of Treatment Not on file documented as of this encounter Visit Diagnoses Not on filedocumented in this encounter Discontinued Medications Medication Sig Discontinue Reason Start Date End Da te metoprolol XL (TOPROL-XL) 25 mg 24 hr tablet TK 1 T PO D Side effects 06/09/2019 08/26/2019 documented as of this encounter Care Teams Director Enterprise Data Architecture Relationship Specialty Start Date End Date Martin Vazquez MD [address] [address] PCP - General Internal Medicine 01/18/19 01/04/20 Erica Rodrigues MD [address] [place] [address] Radiation Oncologist Radiation Oncology 10/25/18 Gasper Kaba MD [address] [place] [address] Surgeon Surgical Oncology 10/25/18 Brandy Aguirre, URANIUM PROCESSING SUPERVISOR [address] [place] [address] Nurse Practitioner Certified Clinical Nurse Specialist 10/25/18 Jo-Ann Morrow, PhD [address] [place] [address] Nurse Practitioner Radiation Oncology 10/25/18 Christina Louis, SIDEWALK REPAIRER [address] [place] [address] Nurse Practitioner Medical Oncology 10/25/18 documented as of this encounter
--- OUTSIDE RECORDS SUMMARY | 2024-04-24 05:56 | XMS_ITS | Encounter Summary ---
Author Organization [facility] Facility Care Team Providers Care Card Grinder Helper Name Role Phone Erica Rodrigues MD Unavailable Gasper Kaba MD Unavailable [phone] Brandy Aguirre SOLAR ENERGY SYSTEMS DESIGNER Unavailable [phone] Jo-Ann Morrow PhD Unavailable [phone] Christina Louis DISPERSION MIXER Unavailable [phone] Martin Vazquez MD Primary Care Provider [phone] Encounter Details Date Type Department Care Team (Latest Contact Info) Description 02/28/2019 Travel Social History Tobacco Use Types Packs/Day Years Used Date Smoking Tobacco: Never Smokeless Tobacco: Never Alcohol Use Standard Drinks/Week Comments Yes 0 (1 standard drink = 0.6 oz pur e alcohol) social Comments No Sex and Gender Information Value Date Recorded Sex Assigned at Not on file Legal Sex Female 3:42 AM CODE ENFORCEMENT OFFICER Gender Identity Not on file Sexual Orientation Not on file 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 Not on file Not on file documented as of this encounter Plan of Treatment Not on file documented as of this encounter Visit Diagnoses Not on filedocumented in this encounter Care Teams Card Grinder Helper Relationship Specialty Start Date End Date Martin Vazquez MD [address] [place] [address] PCP - General Internal Medicine 01/18/19 01/04/20 Erica Rodrigues MD [address] [place] [address] Radiation Oncologist Radiation Oncology 10/25/18 Gasper Kaba MD [address] [place] [address] Surgeon Surgical Oncology 10/25/18 Brandy Aguirre, SOLAR ENERGY SYSTEMS DESIGNER [address] [place] [address] Nurse Practitioner Certified Clinical Nurse Specialist 10/25/18 Jo-Ann Morrow, PhD [address] [place] [address] Nurse Practitioner Radiation Oncology 10/25/18 Christina Louis, DISPERSION MIXER [address] [place] [address] Nurse Practitioner Medical Oncology 10/25/18 documented as of this encounter
--- OUTSIDE RECORDS SUMMARY | 2024-04-24 05:56 | XMS_ITS | Encounter Summary ---
Author Organization [facility] Address [address] [place] [address] Phone Care Team Providers Care Frame Pulley Mortising Machine Operator Name Role Phone Erica Rodrigues MD Unavailable Gasper Kaba MD Unavailable [phone] Brandy Aguirre MEDIC TECHNICIAN Unavailable [phone] Jo-Ann Morrow PhD Unavailable [phone] Christina Louis MARSHMALLOW MACHINE OPERATOR Unavailable [phone] Martin Vazquez MD Primary Care Provider [phone] Encounter Details Date Type Department Care Team (Late st Contact Info) Description 08/31/2019 10:30 AM CDT Telemedicine [facility] Rheumatology [address] [facility] [address] [place] [address] Patricia Martinez MD [address] [place] [address] [address] [place] [address] Rheumatoid 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 (CMS/HCC) (Primary Dx); Malignant neoplasm of central portion of right breast in female, estrogen receptor positive (CMS/HCC) Social History Tobacco Use Types Packs/Day Years Used Date Smoking Tobacco: Never Smokeless Tobacco: Never Alcohol Use Standard Drinks/Week Comments Yes 1 (1 standard drink = 0.6 oz pur e alcohol) social Comments No Sex and Gender Information Value Date Recorded Sex Assigned at Not on file Legal Sex Female 3:42 AM STAFF DEVELOPMENT COORDINATOR Gender Identity Not on file Sexual Orientation Not on file 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 female with chief complaint of F/U RA. This was a telemedicine visit with Yesika Denney alone which took place via Real-time video connection In[employer], [employer] or similar). During the visit, I was located at [facility] and the patient was located at home. The session started at 1039 and ended at 1056. The patient has been informed that the [...] billed and/or responsible for any applicable copayments. 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 She remains on triple DMARD therapy with methotrexate 20 mg weekly plus hydroxychloroquine 200 mg daily plus sulfasalazine 500 mg b .i.d. She feels she has been doing generally well but has had at least 2 flares , one associated with eye inflammation and had to take approximately 10 mg prednisone generally at 20 x 5 days, 10 mg x5 days, 5 mg for 5 days and off. No AM stiffness. MRA in Dec and no change in known aneuyrsm. She had issues with SVT and her lisinopril was decreased and started on atenolol. DISEASE TREATMENT HISTORY May 10 2015 -initiation [...] risk HPV (human papillomavirus) test positive ??? Encounter to establish care ??? Diplopia ??? Malignant neoplasm of central portion of right breast in female, estrogen receptor positive (CMS/HCC) ??? Disorder of binocular movement ??? Headache ??? Visual discomfort ??? Postmenopausal bleeding ??? History of breast cancer Past Surgical History: Procedure Laterality Date ??? ABLATION ??? BREAST LUMPECTOMY ??? CYST REMOVAL ??? HYSTEROSCOPY ? ? PORT PLACEMENT CHEST >5 YEARS N/A 01/17/2015 ??? PORT REMOVAL N/A 04/10/2015 ??? RHINOPLASTY 1984 ??? THYROIDECTOMY, PARTIAL Left 1997 Dr. Demetris Aguilar ??? TONSILLECTOMY 1982 Immunization History Administered Date(s) Administered ??? Influenza, Quadrivalent, Cell Culture-based MDCK, Preservative Free, Antibiotic Free, Intramuscular 03/16/2018 ??? Influenza, Trivalent, Intramuscular 01/27/2018 ??? Influenza, Trivalent, Preservative Free, Intramuscular 02/24/2017 ??? Influenza, Unspecified 01/11/2019 Allergies Allergen Reactions ??? Adhesive Hives ??? Adhesive Tape-Silicones Rash ??? Cyclizine Other (See comments) and Hallucinations Reaction: Urinary retention Social History Tobacco Use ??? Smoking status: Never Smoker ??? Smokeless tobacco: Never Used Substance Use Topics ??? Alcohol use: Yes Alcohol/week: 1.0 standard drinks Types: 1 Shots of liquor per week Comment: social .[facility] Family History Problem Relation Age of Onset ??? Depression Sister ??? Hypertension Sister ??? Hypertension Mother ??? Anemia Mother ??? Heart disease Mother ??? Alzheimer's disease Father ??? Depression Father ??? Hypertension Father ??? Memory loss Father ??? Cancer Maternal Grandfather ??? Depression Brother ??? Hypertension Brother ??? Memory loss Maternal Grandmother ??? Depression Paternal Grandmother ??? Stroke Paternal Grandmother Review of Systems: All other systems are negative Vitals LMP (LMP Unknown) Lab/Radiology/Diagnostic Review: Assessment /Plan Problem List Items Addressed This Visit Rheumatology Problems Rheumatoid arthritis with negative rheumatoid factor (CMS/HCC) - Primary She reports stable disease. We will obtain monitoring labs as well as I have placed the orders for her oncologist as well since needs a different lab. She will advise if worsening eye disease and we reviewed best practice to minimize steroids. Relevant Orders CBC with auto differential Comprehensive metabolic panel CRP (acute phase) Erythrocyte sedimentation rate Vitamin D 25 hydroxy Other Malignant neoplasm of central portion of right breast in female, estrogen receptor positive (CMS/HCC) Relevant Orders CBC with auto differential Comprehensive metabolic panel Cancer antigen 15-3 Vitamin D 25 hydroxy documented in this encounter Miscellaneous Notes * Assessment & Plan Note - Patricia Martinez MD - 08/31/2019 10:58 AM CDT Associated Problem(s): Rheumatoid arthritis with negative rheumatoid factor (HCC) She reports stable disease. We will obtain monitoring labs as well as I have placed the orders for her oncologist as well since needs a different lab. She will advise if worsening eye disease and we reviewed best practice to minimize steroids. documented in this encounter Plan of Treatment Not on file documented as of this encounter Procedures Procedure Name Priority Date/Time Associated Diagnosis Comments CBC WITH AUTO DIFFERENTIAL Routine 10/10/2019 12:22 PM CDT Rheumatoid 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 (CMS/HCC) Malignant neoplasm of central portion of right breast in female, estrogen receptor positive (CMS/HCC) CANCER ANTIGEN 15-3 Routine 10/10/2019 1 2:22 PM CDT Malignant neoplasm of central portion of right breast in female, estrogen receptor positive (CMS/HCC) VITAMIN D 25 HYDROXY Routine 10/10/2019 12:22 PM CDT Rheumatoid 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 (CMS/HCC) Malignant neoplasm of central portion of right breast in female, estrogen receptor positive (CMS/HCC) ERYTHROCYTE SEDIMENTATION RATE Routine 10/10/2019 12:22 PM CDT Rheumatoid 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 (CMS/HCC) CRP (ACUTE PHASE) Routine 10/10/2019 12: 22 PM CDT Rheumatoid 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 (CMS/HCC) COMPREHENSIVE METABOLIC PANEL Routine 10/10/2019 12:22 PM CDT Rheumatoid 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 (CMS/HCC) Malignant neoplasm of central portion of right breast in female, estrogen receptor positive (CMS/HCC) documented in this encounter Results * Vitamin D 25 hydroxy (10/10/2019 12:22 PM CDT) Vitamin D, 25-Hydroxy 65.4 30.0 - 100.0 ng/mL [facility] - 01 Comment: Vitamin D deficiency has been defined by the [employer] of [employer] and an Endocrine Society practice guideline as a level of serum 25-OH vitamin D less than 20 ng/mL (1,2). The Endocrine Society went on to further define vitamin D insufficiency as a level between 21 and 29 ng/mL (2). 1. IOM ([employer] of Medicine). 2010. Dietary reference ?? intakes for calcium and D. [place]: The ?? National Academies Press. 2. Mallory MF, Lisset NC, Stan ROMAN, et al. ?? Evaluation, treatment, and prevention of vitamin D ?? deficiency: an Endocrine Society clinical practice ?? guideline. JCEM. 2010; 96(7):1911-30. Blood specimen (specimen) 10/10/2019 12:22 PM CDT 10/10/2019 Narrative [facility] - 10/11/2019 9:10 AM CDT Performed at: ??01 - [address] ??[id number] Proposal Lead Writer: John Lozoya PhD, Phone: ??[phone] Patricia Martinez MD LAB BLOOD ORDERABLES Final R esult Performing Organization Address City/[facility]/ZIP Co de Phone Number [facility] - * Cancer antigen 15-3 (10/10/2019 12:22 PM CDT) Cancer Antigen 15-3 7.5 0.0 - 25.0 U/mL [facility] - Comment: [employer] Electrochemiluminescence Immunoassay (ECLIA) Values obtained with different assay methods or kits cannot be used interchangeably. ??Results cannot be interpreted as absolute evidence of the presence or absence of malignant disease. Blood specimen (specimen) 10/10/2019 12:22 PM CDT 10/10/2019 Narrative [facility] - 10/11/2019 9:10 AM CDT Performed at: ?? - [address] ??[id number] Proposal Lead Writer: John Lozoya PhD, Phone: ??[phone] us Patricia Martinez MD LAB BLOOD ORDERABLES Final R esult Performing Organization Address [facility]/ZIP Co de Phone Number [facility] - * Erythrocyte sedimentation rate (10/10/2019 12:22 PM CDT) Erythrocyte sedimentation rate 2 0 - 40 mm/hr [facility] - Blood specimen (specimen) 10/10/2019 12:22 PM CDT 10/10/2019 Narrative [facility] - 10/11/2019 9:10 AM CDT Performed at: ??01 - [facility] ??[id number] Proposal Lead Writer: John Lozoya PhD, Phone: ??[phone] us Patricia Martinez MD LAB BLOOD ORDERABLES Final R esult [facility] - * CRP (acute phase) (10/10/2019 12:22 PM CDT) Pathologist [facility] CRP <1 0 - 10 mg/L [facility] - 01 Blood specimen (specimen) 10/10/2019 12:22 PM CDT 10/10/2019 Narrative [facility] - 10/11/2019 9:10 AM CDT Performed at: ?? - [facility] [address] ??[id number] Proposal Lead Writer: John Lozoya PhD, Phone: ??[phone] us Patricia Martinez MD LAB BLOOD ORDERABLES Final R esult Performing Organization Address City/[facility]/ZIP Co de Phone Number [facility] - * (ABNORMAL) Comprehensive metabolic panel (10/10/2019 12:22 PM CDT) Pathologist [facility] Glucose 97 65 - 99 mg/dL [facility] - 01 BUN 13 6 - 24 mg/dL [facility] - 01 Creatinine, Serum 0.69 0.57 - 1.00 mg/dL [facility] - 01 eGFR If NonAfricn Am 96 >59 mL/min/1.7 3 [facility] - 01 eGFR If Africn Am 110 >59 mL/min/1.7 3 [facility] - 01 BUN/creat ratio 19 9 - 23 [facility] - 01 Sodium 142 134 - 144 mmol/L [facility] - 01 Potassium, sr 4.9 3.5 - 5.2 mmol/L [facility] - 01 Chloride 104 96 - 106 mmol/L [facility] - 01 CO2 28 20 - 29 mmol/L [facility] - 01 Calcium 9.3 8.7 - 10.2 mg/dL [facility] - 01 Protein, sr 6.2 6.0 - 8.5 g/dL [facility] - 01 Albumin 4.5 3.8 - 4.9 g/dL [facility] - 01 Globulin, Total 1.7 1.5 - 4.5 g/dL [facility] - 01 A/G Ratio 2.6(H) 1.2 - 2.2 [facility] - 01 Bilirubin, Total 0.3 0.0 - 1.2 mg/dL [facility] - 01 Alk phos 41 39 - 117 IU/L [facility] - 01 AST 22 0 - 40 IU/L [facility] - 01 ALT 16 0 - 32 IU/L [facility] - 01 Blood specimen (specimen) 10/10/2019 12:22 PM CDT 10/10/2019 Narrative [facility] - 10/11/2019 9:10 AM CDT Performed at: ?? - [facility] [address], [place], [place] ??[id number] Proposal Lead Writer: John Lozoya PhD, Phone: ??[phone] us Patricia Martinez MD LAB BLOOD ORDERABLES Final R esult [facility] - 01 * (ABNORMAL) CBC with auto differential (10/10/2019 12:22 PM CDT) WBC 4.5 3.4 - 10.8 x10E3/uL [facility] - 01 RBC 3.68(L) 3.77 - 5.28 x10E6/uL [facility] - 01 Hgb 12.4 11.1 - 15.9 g/dL [facility] - 01 Hct 37.9 34.0 - 46.6 % [facility] - 01 MCV 103(H) 79 - 97 fL [facility] - 01 MCH 33.7(H) 26.6 - 33.0 pg [facility] - 01 MCHC 32.7 31.5 - 35.7 g/dL [facility] - 01 Rdw 13.2 11.7 - 15.4 % [facility] - 01 Platelets 205 150 - 450 x10E3/uL [facility] - 01 Neutrophils pct 50 Not Estab. % [facility] - 01 Lymphs pct 37 Not Estab. % [facility] - 01 Monocytes pct 10 Not Estab. % [facility] - 01 Eosinophils pct 2 Not Estab. % [facility] - 01 Basophil pct 1 Not Estab. % [facility] - 01 Neutrophil abs 2.3 1.4 - 7.0 x10E3/uL [facility] - 01 Lymphs (Absolute) 1.7 0.7 - 3.1 x10E3/uL [facility] - 01 Monocyte abs 0.5 0.1 - 0.9 x10E3/uL [facility] - 01 Eosinophils, abs 0.1 0.0 - 0.4 x10E3/uL [facility] - 01 Basophils, abs 0.0 0.0 - 0.2 x10E3/uL [facility] - 01 Immature Granulocytes 0 Not Estab. % [facility] - 01 Immature Grans (Abs) 0.0 0.0 - 0.1 x10E3/uL [facility] - 01 Blood specimen (specimen) 10/10/2019 12:22 PM CDT 10/10/2019 Narrative [facility] - 10/11/2019 9:10 AM CDT Performed at: ??01 - [facility] [address] ??[id number] Proposal Lead Writer: John Lozoya PhD, Phone: ??[phone] us Patricia Martinez MD LAB BLOOD ORDERABLES Final R esult [facility] - 01 documented in this encounter Visit Diagnoses Diagnosis Rheumatoid 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 (CMS/HCC) (HCC)- Primary Malignant neoplasm of central portion of right breast in female, estrogen receptor positive (HCC) documented in this encounter Care Teams Frame Pulley Mortising Machine Operator Relationship Specialty Start Date End Date Martin Vazquez MD [address] [place] [address] PCP - General Internal Medicine 01/18/19 01/04/20 Erica Rodrigues MD [address] [place] [address] Radiation Oncologist Radiation Oncology 10/25/18 Gasper Kaba MD [address] [facility] [address] [place] [address] Surgeon Surgical Oncology 10/25/18 Brandy Aguirre CNS [address] [facility] [address] [place] [address] Nurse Practitioner Certified Clinical Nurse Specialist 10/25/18 Jo-Ann Morrow, PhD [address] [facility] [address] [facility] [address] [place] [address] Nurse Practitioner Radiation Oncology 10/25/18 Christina Louis, MARSHMALLOW MACHINE OPERATOR [address] [facility] # [address] [facility] [address] [place] [address] Nurse Practitioner Medical Oncology 10/25/18 documented as of this encounter
--- OUTSIDE RECORDS SUMMARY | 2024-04-24 05:56 | XMS_ITS | Encounter Summary ---
Author Organization [facility] Address [address] [place] [address] Phone Care Team Providers Care Corking Machine Operator Name Role Phone Erica Rodrigues MD Unavailable Gasper Kaba MD Unavailable [phone] Brandy Aguirre FURNITURE REPRODUCER Unavailable [phone] Jo-Ann Morrow PhD Unavailable [phone] Christina Louis POOL FINISHER Unavailable [phone] Martin Vazquez MD Primary Care Provider [phone] Encounter Details Date Type Department Care Team (Late st Contact Info) Description 02/28/2019 2:15 PM CARDROOM HAND Lab [facility] Oncology [address] [facility] [address] [place] [phone] Patricia Martinez MD [address] [place] [address] [address] [place] [address] Rheumatoid 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 (CMS/HCC) Discharge Disposition: Discharge to home or self care Social History Tobacco Use Types Packs/Day Years Used Date Smoking Tobacco: Never Smokeless Tobacco: Never Alcohol Use Standard Drinks/Week Comments Yes 0 (1 standard drink = 0.6 oz pur e alcohol) social Comments No Sex and Gender Information Value Date Recorded Sex Assigned at Not on file Legal Sex Female 3:42 AM CARDROOM HAND Gender Identity Not on file Sexual Orientation [...] Procedure Name Priority Date/Time Associated Diagnosis Comments EGFR Routine 02/28/2019 11:30 AM CARDROOM HAND Rheumatoid 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 (CMS/HCC) DIFFERENTIAL AUTO Routine 02/28/2019 11: 30 AM CARDROOM HAND Rheumatoid 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 (CMS/HCC) CBC WITH AUTO DIFFERENTIAL Routine 02/28/2019 11:30 AM CARDROOM HAND Rheumatoid 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 (CMS/HCC) VITAMIN D 25 HYDROXY Routine 02/28/2019 11:30 AM CARDROOM HAND Rheumatoid 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 (CMS/HCC) ERYTHROCYTE SEDIMENTATION RATE Routine 02/28/2019 11:30 AM CARDROOM HAND Rheumatoid 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 (CMS/HCC) CRP (ACUTE PHASE) Routine 02/28/2019 11: 30 AM CARDROOM HAND Rheumatoid 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 (CMS/HCC) COMPREHENSIVE METABOLIC PANEL Routine 02/28/2019 11:30 AM CARDROOM HAND Rheumatoid 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 (CMS/HCC) documented in this encounter Results * eGFR (02/28/2019 11:30 AM CARDROOM HAND) [facility] eGFR >60 mL/min/1.7 3 m2 KATHY CASTRO Comment: Interpretive Data Reference Interval Normal ?>/= 90 mL/min/1.73m2 Mildly decreased* ? 60 - 89 mL/min/1.73m2 Mildly to moderately decreased ?45 - 59 mL/min/1.73m2 Moderately to severely decreased ??30 - 44 mL/min/1.73m2 Severely decreased ?15 - 29 mL/min/1.73m2 Kidney Failure ?< 15 ??mL/min/1.73m2 *Relative to young adult level If -[place] multiply value by 1.16. Estimated glomerular filtration rate is determined by the CKD-EPI equation recommended by the National Kidney Foundation (KDIGO 2012 Clinical Practice Guideline for the Evaluation and Management of Chronic Kidney Disease. Kidney Intnl Suppl Apr 2012;3:1). The CKD-EPI equation should not be used for patients with unstable renal function and has not been validated in children and those over 70. Current interpretive data was last reviewed 2015. Blood specimen (specimen) 02/28/2019 11:30 AM CARDROOM HAND 02/28/2019 12:30 PM CARDROOM HAND us Patricia Martinez MD LAB BLOOD ORDERABLES Final R esult [facility] [address] [facility]. [place] [address] * Differential, auto (02/28/2019 11:30 AM CARDROOM HAND) Neutrophil abs 1.9 1.7 - 6.5 K/cumm KATHY BJWCH Comment:Testing performed by : [facility], [address] [place] [address] Imm gran abs 0.0 0.0 - 0.1 K/cumm KATHY BJWCH Comment:Testing performed by : [facility], [address] [place] [address] Lymphocyte abs 1.7 0.8 - 3.3 K/cumm KATHY BJWCH Comment:Testing performed by : [facility], [address] [place] [address] Monocyte abs 0.5 0.2 - 0.8 K/cumm KATHY BJWCH Comment:Testing performed by : [facility], [address] [place] [address] [place] [address] Eosinophil abs 0.0 0.0 - 0.5 K/cumm CERNER BJWCH Comment:Testing performed by : [facility], [address] [place] [address] [place] [address] Basophil abs 0.0 0.0 - 0.1 K/cumm CERNER BJWCH Comment:Testing performed by : [facility], [address] [place] [address] [place] [address] Neutrophil pct 46.4 % CERNER BJWCH Comment: Interpretive Data Percent cell count reference ranges are not reported, since discordance with absolute values may lead to misinterpretation of CBC data. Current Interpretive Data was last revised on 2017. Testing performed by: [facility], [address] [place] [address] [place] [address] Imm gran pct 0.2 % CERNER BJWCH Comment: Interpretive Data Percent cell count reference ranges are not reported, since discordance with absolute values may lead to misinterpretation of CBC data. Current Interpretive Data was last revised on 2017. Testing performed by: [facility], [address] [place], [place] [address] [address] Lymphocyte pct 40.4 % CERNER BJWCH Comment: Interpretive Data Percent cell count reference ranges are not reported, since discordance with absolute values may lead to misinterpretation of CBC data. Current Interpretive Data was last revised on 2017. Testing performed by: [facility], [address] [place] [address] [place] [address] Monocyte pct 11.1 % CERNER BJWCH Comment: Interpretive Data Percent cell count reference ranges are not reported, since discordance with absolute values may lead to misinterpretation of CBC data. Current Interpretive Data was last revised on 2017. Testing performed by: [facility], [address] [place] [address] [place] [address] Eosinophil pct 1.2 % CERNER BJW[facility] Comment: Interpretive Data Percent cell count reference ranges are not reported, since discordance with absolute values may lead to misinterpretation of CBC data. Current Interpretive Data was last revised on 2017. Testing performed by: [facility], [address] [place] [address] [place] [address] Basophil pct 0.7 % KATHY CASTRO Comment: Interpretive Data Percent cell count reference ranges are not reported, since discordance with absolute values may lead to misinterpretation of CBC data. Current Interpretive Data was last revised on 2017. Testing performed by: [facility], [address] [place] [address] [place] [address] Blood specimen (specimen) 02/28/2019 11:30 AM CARDROOM HAND 02/28/2019 11:53 AM CARDROOM HAND us Patricia Martinez MD LAB BLOOD ORDERABLES Final R esult [facility] [address] [facility] [place] [address] * (ABNORMAL) CBC with auto differential (02/28/2019 11:30 AM CARDROOM HAND) WBC 4.1 3.8 - 9.9 K/cumm KATHY CASTRO Comment:Testing performed by : [facility], [address] [place] [address] [place] [address] Hgb 12.9 11.9 - 15.5 g/dL KATHY CASTRO Comment:Testing performed by : [facility], [address] [place] [address] [place] [address] Hct 38.8 35.6 - 45.5 % AKTHY ROOTCH Comment:Testing performed by : [facility], [address] [place] [address] [place] [address] Plt 221 150 - 400 K/cumm KATHY CASTRO Comment:Testing performed by : [facility], [address] [place] [address] [place] [address] MPV 9.9 9.1 - 12.3 fL KATHY CASTRO Comment:Testing performed by : [facility], [address] [place] [address] [place] [address] RBC 3.80(L) 3.90 - 5.20 M/cumm KATHY ROOTCH Comment:Testing performed by : [facility], [address] [place] [address] [place] [address] MCV 102(H) 81 - 96 fL CERNER BJWCH Comment:Testing performed by : [facility], [address] [place] [address] [place] [address] MCH 33.9(H) 27.1 - 33.3 pg KATHY REYNAWNED Comment:Testing performed by : [facility], [address] [place], [place] [address], [place] [address] MCHC 33.2 32.3 - 35.7 g/dL KATHY CASTRO Comment:Testing performed by : [facility], [address] [place] [address] [place] [address] RDW CV 13.0 11.1 - 14.9 % KATHY REYNAWNED Comment:Testing performed by : [facility], [address] [place] [address] [place] [address] RDW SD 48.4(H) 35.7 - 48.1 fL KATHY CASTRO Comment:Testing performed by : [facility], [address] [place] [address] [place] [address] Blood specimen (specimen) 02/28/2019 11:30 AM CARDROOM HAND 02/28/2019 11:53 AM CARDROOM HAND us Patricia Martinez MD LAB BLOOD ORDERABLES Final R esult [facility] [address] [facility] Department [place] [address] * Comprehensive metabolic panel (02/28/2019 11:30 AM CARDROOM HAND) Sodium 142 135 - 145 mmol/L CERNER BJW Potassium, pl 4.4 3.3 - 4.9 mmol/L CERNER BJW[facility] Chloride 103 97 - 110 mmol/L CERNER BJW[facility] CO2 27 22 - 32 mmol/L CERNER BJW[facility] Anion gap 12 2 - 15 mmol/L CERNER BJWCH BUN 13 8 - 25 mg/dL CERNER BJWCH Creatinine 0.80 0.60 - 1.10 mg/dL CERNER BJWCH Glucose 103 70 - 199 mg/dL CERALYSSIA REYNAWCH Comment: Interpretive Data Fasting glucose >/= 126 [...] interpretive data was last revised 2017. Calcium 9.5 8.5 - 10.3 mg/dL CERNER BJW[facility] Bilirubin, total 0.3 0.1 - 1.2 mg/dL CERNER B[facility] Protein, pl 6.9 6.5 - 8.5 g/dL CERNER BJW[facility] Albumin 4.8 3.5 - 5.0 g/dL CERNER B[facility] Alk phos 46 40 - 130 Units/L CERNER [facility] ALT 18 7 - 45 Units/L CERNER [facility] AST 22 10 - 45 Units/L CERNER BJW[facility] Blood specimen (specimen) 02/28/2019 11:30 AM CARDROOM HAND 02/28/2019 12:30 PM CARDROOM HAND Patricia Martinez MD LAB BLOOD ORDERABLES Final R esult Performing Organization Address [facility] de Phone Number [facility] [address] [facility] [place] [place] [address] * CRP (acute phase) (02/28/2019 11:30 AM CARDROOM HAND) CRP 1.0 <=10.0 mg/L [facility] Blood specimen (specimen) 02/28/2019 11:30 AM CARDROOM HAND 02/28/2019 12:30 PM CARDROOM HAND Patricia Martinez MD LAB BLOOD ORDERABLES Final R esult Performing Organization Address [facility] de Phone Number [facility] BJW[facility] [address] [facility] [place] [address] * Erythrocyte sedimentation rate (02/28/2019 11:30 AM CARDROOM HAND) Erythrocyte sedimentation rate 7 1 - 30 mm/hr KATHY CASTRO Blood specimen (specimen) 02/28/2019 11:30 AM CARDROOM HAND 02/28/2019 1:05 PM CARDROOM HAND Patricia Martinez MD LAB BLOOD ORDERABLES Final R esult Performing Organization Address [facility] Co de Phone Number [facility] [address] [facility] [place] [place] [address] * Vitamin D 25 hydroxy (02/28/2019 11:30 AM CARDROOM HAND) Vitamin D 25-OH 79 30 - 80 ng/mL KATHY ROOT Comment:Testing performed by : [facility], [address] [facility], [place]., [address] Blood specimen (specimen) 02/28/2019 11:30 AM CARDROOM HAND 02/28/2019 2:05 PM CARDROOM HAND Patricia Martinez MD LAB BLOOD ORDERABLES Final R esult Performing Organization Address [facility] Co de Phone Number K[facility]Y [facility] [address] [facility] [place] [place] [address] documented in this encounter Visit Diagnoses Diagnosis Rheumatoid 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 (CMS/HCC) (HCC) documented in this encounter Care Teams Corking Machine Operator Relationship Specialty Start Date End Date Martin Vazquez MD [address] [place] [address] PCP - General Internal Medicine 01/18/19 01/04/20 Erica Rodrigues MD [address] [place] [address] Radiation Oncologist Radiation Oncology 10/25/18 Gasper Kaba MD [address] [facility] [address] [place] [address] Surgeon Surgical Oncology 10/25/18 Brandy Aguirre, CARINA [address] [facility] [address] [place] [address] Nurse Practitioner Certified Clinical Nurse Specialist 10/25/18 Jo-Ann Morrow, PhD [address] [facility] [address] [place] [address] Nurse Practitioner Radiation Oncology 10/25/18 Christina Louis, POOL FINISHER [address] [facility] [address] [place] [address] Nurse Practitioner Medical Oncology 10/25/18 documented as of this encounter
--- OUTSIDE RECORDS SUMMARY | 2024-04-24 05:56 | XMS_ITS | Encounter Summary ---
Author Organization [facility] Address [address] [place] [address] Care Team Providers Care Furnace Brazer Name Role Phone Erica Rodrigues MD Unavailable Gasper Kaba MD Unavailable [phone] Brandy Aguirre Unavailable [phone] Jo-Ann Morrow PhD Unavailable [phone] Christina Louis MUSIC COMPOSER Unavailable [phone] Martin Vazquez MD Primary Care Provider [phone] Reason for Referral * Diagnostic Imaging (Routine) - Closed Specialty Diagnoses / Procedures Referred By Contac t Referred To Contact Radiology Diagnoses Cerebral arterial aneurysm Procedures MRA Head W WO Contrast Harpal Chaudhari MD Phone: tel: fax: [address] [address] Referral ID Status Reason Start Date Expiration Date Visits Re quested Visits Authorized [id number] Closed 03/23/2019 04/21/2019 1 1 NSED PRACTICAL NURSE Reason for Visit * Diagnostic Imaging (Routine) - Closed Specialty Diagnoses / Procedures Referred By Contac t Referred To Contact Radiology Diagnoses Cerebral arterial aneurysm Procedures MRA Head W WO Contrast Harpal Chaudhari MD Phone: tel: fax: [facility] [address] [place] [address] Referral ID Status Reason Start Date Expiration Date Visits Re quested Visits Authorized [id number] Closed 03/23/2019 04/21/2019 1 1 Encounter Details Date Type Department Care Team (Latest Contact Info) Description 03/30/2019 10:38 AM LICENSED PRACTICAL NURSE - 03/30/2019 11:59 PM LICENSED PRACTICAL NURSE Hospital Encounter [facility] [address] [place] [address] Harpla Chaudhari MD [address] [place] [address] DR DEPT NEUROSURGERY, [address] [address] Cerebral arterial aneurysm Discharge Disposition: Discharge to home or self care Social History Tobacco Use Types Packs/Day Years Used Date Smoking Tobacco: Never Smokeless Tobacco: Never Alcohol Use Standard Drinks/Week Comments Yes 1 (1 standard drink = 0.6 oz pur e alcohol) social Comments No Sex and Gender Information Value Date Recorded Sex Assigned at Not on file Legal Sex Female 3:42 AM LICENSED PRACTICAL NURSE Gender Identity Not on file Sexual [...] (two) times a week Tu and Thu03/17/2022 FLUOXETINE 10 mg capsule Take 20 mg by mouth daily 01/14/2019 01/05/2020 folic acid (FOLVITE) 1 mg tablet Take 2 tablets (2,000 mcg total) by mouth daily 180 tablet 3 02/28/2019 02/10/2020 hydroxychloroquin e (PLAQUENIL) 200 mg tablet Take 1 tablet (200 mg total) by mouth daily 90 tablet 1 02/28/2019 08/23/2019 lisinopriL (PRINIVIL,ZESTRIL ) 20 mg tablet Take 20 mg by mouth daily 01/14/2019 09/22/2019 methotrexate 2.5 mg tabletIndications :autoimmune disease Take 8 tablets (20 mg total) by mouth once a week 96 tablet 1 02/28/2019 05/06/2019 predniSONE (DELTASONE) 10 mg tablet Take 1 tablet (10 mg) by mouth daily 90 tablet 1 02/28/2019 06/14/2019 sulfaSALAzine EN (AZULFIDINE EN) 500 mg EC tablet Take 1 tablet (500 mg total) by mouth 2 (two) times a day 180 tablet 1 02/28/2019 08/23/2019 valACYclovir (VALTREX) 500 mg tablet daily. 01/05/2020 documented as of this encounter Discharge Disposition Disposition Code Departure Means Destination Discharge to home or self care documented in this encounter Plan of Treatment Not on file documented as of this encounter Procedures Procedure Name Priority Date/Time Associated Diagnosis Comments MRA HEAD W WO CONTRAST Schedule Routine, Read Routine (OP Routine) 03/30/2019 11:30 AM LICENSED PRACTICAL NURSE Cerebral arterial aneurysm documented in this encounter Results * MRA Head W WO Contrast (03/30/2019 11:30 AM LICENSED PRACTICAL NURSE) Anatomical Region Laterality Modality Head and Neck N/A Magnetic Resonan ce 03/30/2019 12:3 9 PM LICENSED PRACTICAL NURSE Impressions 03/30/2019 4:58 PM LICENSED PRACTICAL NURSE Superiorly directed anterior communicating artery aneurysm, 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 Dictated by: Parish Burns M.D. The radiology attending physician has personally reviewed this study, and had reviewed and/or edited this written report and agrees with it. Electronically signed by: Daina Thacker M.D. Narrative 03/30/2019 4:58 PM LICENSED PRACTICAL NURSE EXAMINATION: Magnetic resonance angiography (MRA) of the dygmpe-ze-Pndwky without and with contrast HISTORY: Cerebral aneurysm TECHNIQUE: MRA of the iloogh-at-Tifzcv was performed using a non-contrast lnae-ng-owbutc technique and a post-contrast technique to produce axial thin-slice source images. These images were then used to generate maximum intensity projection (MIP) images. Contrast information: 12 mL Dotarem COMPARISON: Comparison is made with MR brain from 03/29/2018 and MRA brain from 10/01/2016. FINDINGS: The internal carotid arteries are of normal caliber. There are no areas of atherosclerotic narrowing. The mkjnna-jy-Ltvdrx is complete. There is a superiorly directed outpouching from the anterior communicating artery, consistent with aneurysm, measuring approximately 4.2 mm in maximum dimension, similar in size when compared to previous examinations. ??The anterior and middle cerebral arteries are otherwise normal. The vertebral arteries are codominant. The basilar artery is normal. The posterior cerebral arteries are normal. There is no evidence of vascular malformation. Procedure Note Daina Thacker MD - 03/30/2019 EXAMINATION: Magnetic resonance angiography (MRA) of the kgmpao-pi-Dwivxi without and with contrast HISTORY: Cerebral aneurysm TECHNIQUE: MRA of the crfprl-lj-Gqwikc was performed using a non-contrast bzrp-nn-gykpmg technique and a post-contrast technique to produce axial thin-slice source images. These images were then used to generate maximum intensity projection (MIP) images. Contrast information: 12 mL Dotarem COMPARISON: Comparison is made with MR brain from 03/29/2018 and MRA brain from 10/01/2016. FINDINGS: The internal carotid arteries are of normal caliber. There are no areas of atherosclerotic narrowing. The asfllj-em-Kkwegp is complete. There is a superiorly directed outpouching from the anterior communicating artery, consistent with aneurysm, measuring approximately 4.2 mm in maximum dimension, similar in size when compared to previous examinations. The anterior and middle cerebral arteries are otherwise normal. The vertebral arteries are codominant. The basilar artery is normal. The posterior cerebral arteries are normal. There is no evidence of vascular malformation. 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 Dictated by: Parish Burns M.D. The radiology attending physician has personally reviewed this study, and had reviewed and/or edited this written report and agrees with it. Electronically signed by: Daina Thacker M.D. Harpal Chaudhari MD [facility] MRI PROCEDURES Final Result documented in this encounter Visit Diagnoses Diagnosis Cerebral arterial aneurysm Cerebral aneurysm, nonruptured documented in this encounter Administered Medications Inactive Administered Medications - up to 3 most recent administrations Medication Order MAR Action Action Date Dose Rate Site gadoterate meglumine (DOTAREM) 0.5 mmol/mL injection 12 mL 12 mL, intravenous, Once in imaging, contrast, Starting on Thu03/30/19 at 1130, For 1 dose Given 03/30/2019 11:30 AM LICENSED PRACTICAL NURSE 12 mL documented in this encounter Care Teams Furnace Brazer Relationship Specialty Start Date End Date Martin Vazquez MD [address] [place] [address] PCP - General Internal Medicine 01/18/19 01/04/20 Erica Rodrigues MD [address] [place] [address] Radiation Oncologist Radiation Oncology 10/25/18 Gapser Kaba MD [address] [place] [address] Surgeon Surgical Oncology 10/25/18 Brandy Aguirre, FIELD APPRAISER [address] [place] [address] Nurse Practitioner Certified Clinical Nurse Specialist 10/25/18 Jo-Ann Morrow, PhD [address] [place] [address] Nurse Practitioner Radiation Oncology 10/25/18 Christina Louis, MUSIC COMPOSER [address] [place] [address] Nurse Practitioner Medical Oncology 10/25/18 documented as of this encounter
--- OUTSIDE RECORDS SUMMARY | 2024-04-24 05:56 | XMS_ITS | Encounter Summary ---
Author Organization [facility] Care Team Providers Care Vegetable Washing Machine Operator Name Role Phone Erica Rodrigues MD Unavailable Gasper Kaba MD Unavailable [phone] Brandy Aguirre KENO CLERK Unavailable [phone] Jo-Ann Morrow PhD Unavailable [phone] Christina Louis ROUTE SALES PERSON Unavailable [phone] Martin Vazquez MD Primary Care Provider [phone] Encounter Details Date Type Department Care Team (Latest Contact Info) Description 06/14/2019 Travel Social History Tobacco Use Types Packs/Day Years Used Date Smoking Tobacco: Never Smokeless Tobacco: Never Alcohol Use Standard Drinks/Week Comments Yes 1 (1 standard drink = 0.6 oz pur e alcohol) social Comments No Sex and Gender Information Value Date Recorded Sex Assigned at Not on file Legal Sex Female 3:42 AM CMA Gender Identity Not on file Sexual Orientation Not on file 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 Not on file Not on file documented as of this encounter Plan of Treatment Not on file documented as of this encounter Visit Diagnoses Not on filedocumented in this encounter Care Teams Vegetable Washing Machine Operator Relationship Specialty Start Date End Date Martin Vazquez MD [address] [place] [address] PCP - General Internal Medicine 01/18/19 01/04/20 Erica Rodrigues MD [address] [place] [address] Radiation Oncologist Radiation Oncology 10/25/18 Gasper Kaba MD [address] [place] [address] Surgeon Surgical Oncology 10/25/18 Brandy Aguirre, KENO CLERK [address] [place] [address] Nurse Practitioner Certified Clinical Nurse Specialist 10/25/18 Jo-Ann Morrow, PhD [address] [place] [address] Nurse Practitioner Radiation Oncology 10/25/18 Christina Louis, ROUTE SALES PERSON [address] [place] [address] Nurse Practitioner Medical Oncology 10/25/18 documented as of this encounter
--- OUTSIDE RECORDS SUMMARY | 2024-04-24 05:56 | XMS_ITS | Encounter Summary ---
Author Organization [facility] Address [address] [place] [address] Phone Care Team Providers Care Bradley Linebacker Crewmember Name Role Phone Erica Rodrigues MD Unavailable Gasper Kaba MD Unavailable [phone] Brandy Aguirre ORTHOTIST OR PROSTHETIST Unavailable [phone] Jo-Ann Morrow PhD Unavailable [phone] Christina Louis BOSTON CUTTER Unavailable [phone] Martin Vazquez MD Primary Care Provider [phone] Reason for Referral * Diagnostic Imaging (Routine) - Closed Specialty Diagnoses / Procedures Referred By Contac t Referred To Contact Radiology Diagnoses Cerebral arterial aneurysm Procedures MRA Head W WO Contrast Harpal Chaudhari MD Phone: tel: fax: [address] [address] Referral ID Status Reason Start Date Expiration Date Visits Re quested Visits Authorized [id number] Closed 03/23/2019 04/21/2019 1 1 ALDERMAN Encounter Details Date Type Department Care Team (Late st Contact Info) Description 03/02/2019 Orders Only [facility] Neurosurgery [address] [facility] 6th [place] [address] [place] [address] Harpal Chaudhari MD [address] [place] [address] DR DEPT NEUROSURGERY, [address] [place] [address] Cerebral arterial aneurysm (Primary Dx) Social History Tobacco Use Types Packs/Day Years Used Date Smoking Tobacco: Never Smokeless Tobacco: Never Alcohol Use Standard Drinks/Week Comments Yes 0 (1 standard drink = 0.6 oz pur e alcohol) social Comments No Sex and Gender Information Value Date Recorded Sex Assigned at Not on file Legal Sex Female 3:42 AM CITY ALDERMAN Gender Identity Not on file Sexual Orientation Not on file 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 Dictated by: Parish Burns M.D. The radiology attending physician has personally reviewed this study, and had reviewed and/or edited this written report and agrees with it. Electronically signed by: Daina Thacker M.D. Narrative 03/30/2019 4:58 PM CITY ALDERMAN EXAMINATION: Magnetic resonance angiography (MRA) of the rtrgzn-ba-Tnyqfr without and with contrast HISTORY: Cerebral aneurysm TECHNIQUE: MRA of the okzsdj-em-Iqmiai was performed using a non-contrast plje-dr-uesfls technique and a post-contrast technique to produce axial thin-slice source images. These images were then used to generate maximum intensity projection (MIP) images. Contrast information: 12 mL Dotarem COMPARISON: Comparison is made with MR brain from 03/29/2018 and MRA brain from 10/01/2016. FINDINGS: The internal carotid arteries are of normal caliber. There are no areas of atherosclerotic narrowing. The icgcvl-rr-Iyiuwa is complete. There is a superiorly directed [...] EXAMINATION: Magnetic resonance angiography (MRA) of the hyrxbp-eg-Vferse without and with contrast HISTORY: Cerebral aneurysm TECHNIQUE: MRA of the igdgww-ta-Mwahby was performed using a non-contrast fetq-ky-hnyxzl technique and a post-contrast technique to produce axial thin-slice source images. These images were then used to generate maximum intensity projection (MIP) images. Contrast information: 12 mL Dotarem COMPARISON: Comparison is made with MR brain from 03/29/2018 and MRA brain from 10/01/2016. FINDINGS: The internal carotid arteries are of normal caliber. There are no areas of atherosclerotic narrowing. The pnksfj-mo-Bksydi is complete. There is a superiorly directed [...] by: Daina Thacker M.D. Harpal Chaudhari MD IM MRI PROCEDURES Final Result documented in this encounter Visit Diagnoses Diagnosis Cerebral arterial aneurysm- Primary Cerebral aneurysm, nonruptured Cerebral arterial aneurysm Cerebral aneurysm, nonruptured documented in this encounter Care Teams Bradley Linebacker Crewmember Relationship Specialty Start Date End Date Martin Vazquez MD [address] [place] [address] PCP - General Internal Medicine 01/18/19 01/04/20 Erica Rodrigues MD [address] [facility] [address] [place] [address] Radiation Oncologist Radiation Oncology 10/25/18 Gasper Kaba MD [address] [facility] [address] [place] [address] Surgeon Surgical Oncology 10/25/18 Brandy Aguirre, CARINA [address] [facility] [address] [place] [address] Nurse Practitioner Certified Clinical Nurse Specialist 10/25/18 Jo-Ann Morrow, PhD [address] [facility] [address] [place] [address] Nurse Practitioner Radiation Oncology 10/25/18 Christina Louis BOSTON CUTTER [address] [facility] [address] [place] [address] Nurse Practitioner Medical Oncology 10/25/18 documented as of this encounter
--- OUTSIDE RECORDS SUMMARY | 2024-04-24 05:56 | XMS_ITS | Encounter Summary ---
Author Organization [facility] Address [address] [place] [address] Phone Care Team Providers Care Human Resource Intern Name Role Phone Erica Rodrigues MD Unavailable Gasper Kaba MD Unavailable Brandy Aguirre BRAKE TESTER Unavailable [phone] Jo-Ann Morrow PhD Unavailable [phone] Christina Louis FIRE ALARM MECHANIC Unavailable [phone] Martin Vazquez MD Primary Care Provider [phone] Sylvia Dawson Primary Care Provider [phone] Jessy Adame MD Unavailable [phone] Harpal Carpio MD Unavailable [phone] Rossana Church DNP Unavailable Zahida Kaplan Unavailable Fadi Cook Unavailable Harpal De León MD Unavailable [phone] Valorie Young MD Unavailable Patricia Martinez MD Unavailable Encounter Details Date Type Department Care Team (Latest Contact Info) Description 06/06/2019 Orders Only [facility] Scanning, Provider Social History Tobacco Use Types Packs/Day Years Used Date Smoking Tobacco: Never Smokeless Tobacco: Never Alcohol Use Standard Drinks/Week Comments Yes 1 (1 standard drink = 0.6 oz pur e alcohol) social Comments No Sex and Gender Information Value Date Recorded Sex Assigned at Not on file Legal Sex Female 3:42 AM SOIL SURVEYOR Gender Identity Not on file Sexual Orientation Not on file 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 Not on file Not on file documented as of this encounter Plan of Treatment Not on file documented as of this encounter Procedures Procedure Name Priority Date/Time Associated Diagnosis Comments CARDIOLOGY DOCUMENT SCAN 06/06/2019 documented in this encounter Results * SCAN - CARDIOLOGY (06/06/2019) Anatomical Region Laterality Modality Other Provider Scanning CV CARDIAC SERVICES PROCEDURES Final Result documented in this encounter Visit Diagnoses Not on filedocumented in this encounter Additional Health Concerns Infection Onset Date Last Indicated Resolved Time COVID: Suspected 05/08/2020 05/08/2020 05/09/2020 11:35 PM SOIL SURVEYOR COVID19 05/08/2020 05/08/2020 05/22/2020 3:07 AM SOIL SURVEYOR COVID: Recovered Comment:Added based on recent COVID infection. 05/22/2020 05/26/2020 09/19/2020 3:05 AM C DT COVID19 Comment:IP Review- Patient tested positive on home test on 12/27 after experiencing symptoms. 12/29/22 9:07 AM Valorie Baugh 12/29/2022 12/29/2022 01/08/2023 3:05 AM CDT documented as of this encounter Care Teams Human Resource Intern Relationship Specialty Start Date End Date Martin Vazquez MD [address] [place] [address] PCP - General Internal Medicine 01/18/19 01/04/20 Sylvia Dawson PA [address] [facility] [address] [place] [address] PCP - General Internal Medicine 01/05/20 Erica Rodrigues MD [address] [place] [address] Radiation Oncologist Radiation Oncology 10/25/18 Gasper Kaba MD [address] [place] [address] Surgeon Surgical Oncology 10/25/18 Brandy Aguirre, BRAKE TESTER [address] [place] [address] Nurse Practitioner Certified Clinical Nurse Specialist 10/25/18 Jo-Ann Morrow, PhD [address] [place] [address] Nurse Practitioner Radiation Oncology 10/25/18 Christina Louis, FIRE ALARM MECHANIC [address] [place] [address] Nurse Practitioner Medical Oncology 10/25/18 Jessy Adame MD [address] [facility] DEPT OPHTHALMOLOGY, [address] [place] [address] Consulting Physician Retina Ophthalmology 04/15/23 Harpal Carpio MD [address] [place] [address] Neurologist Neurology 04/15/23 Rossana Church DNP [address] [facility] [place] [address] Nurse Practitioner Nurse Practitioner 04/15/23 Zahida Kaplan PA [address] NEUROLOGY GENERAL, [facility] [address] [place] [address] Physician Maternal Child Nurse Physician Maternal Child Nurse 04/15/23 Fadi Cook PA [address] NEUROLOGY SLEEP [facility], [facility] [address] [place] [address] Physician Maternal Child Nurse Sleep Medicine 04/15/23 Harpal De León MD [address] [place] [address] Snowmobile Mechanic Cardiology 04/15/23 Valorie Young MD [address] [facility] [address] [place] [address] Snowmobile Mechanic Cardiology 04/15/23 Patricia Martinez MD [address] [facility] [address] DIV IM RHEUMATOLOGY, [facility] [address] [place] [address] Consulting Physician Rheumatology 04/15/23 documented as of this encounter
--- OUTSIDE RECORDS SUMMARY | 2024-04-24 05:56 | XMS_ITS | Encounter Summary ---
Author Organization [facility] Address [address] [place] [address] Phone Care Team Providers Care Playground Director Name Role Phone Erica Rodrigues MD Unavailable Gasper Kaba MD Unavailable [phone] Brandy Aguirre RIBBON WINDER Unavailable [phone] Jo-Ann Morrow PhD Unavailable [phone] Christina Louis VARYING EXCEPTIONALITIES TEACHER Unavailable [phone] Martin Vazquez MD Primary Care Provider [phone] Reason for Visit * Reason Onset Date Comments Pt to reschedule appt 07/05/2019 Encounter Details Date Type Department Care Team (Late st Contact Info) Description 07/05/2019 Telephone [facility] Oncology [facility] Advanced Medicine 7th [place] [address] [place] [address] Christina Louis, VARYING EXCEPTIONALITIES TEACHER [address] [address] Pt to reschedule appt Social History Tobacco Use Types Packs/Day Years Used Date Smoking Tobacco: Never Smokeless Tobacco: Never Alcohol Use Standard Drinks/Week Comments Yes 1 (1 standard drink = 0.6 oz pur e alcohol) social Comments No Sex and Gender Information Value Date Recorded Sex Assigned at Not on file Legal Sex Female 3:42 AM GUEST SERVICE SUPERVISOR Gender Identity Not on file Sexual Orientation Not on file 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 She has follow-up with XRT 10/31/2019 and breast imaging 01/31/2020. She will be rescheduled in 07/2020. She reportedly is doing well from a breast cancer standpoint with no changes in her breast self exam. She did report she was in [place] returning on 06/01/2019. She has noted over the past week GI symptoms with intermittent low-grade temp 99.6?? max. Denies shortness of breath, cough, loss of taste or smell. She is on hydroxychloroquine for rheumatoid arthritis. I asked her to follow up with PCP withany worsening symptoms. Pt reminded to follow the current guidelines of social distancing, good personal hygiene, staying home as much as possible and staying away from actively sick people. I told her that if she develops a dry cough, shortness of breath and/or fevers, she needs to reach out to her PCP for direction. documented in this encounter Plan of Treatment Not on file documented as of this encounter Visit Diagnoses Not on filedocumented in this encounter Care Teams Playground Director Relationship Specialty Start Date End Date Martin Vazquez MD [address] [place] [address] PCP - General Internal Medicine 01/18/19 01/04/20 Erica Rodrigues MD [address] [facility] [address] [place] [address] Radiation Oncologist Radiation Oncology 10/25/18 Gasper Kaba MD [address] [place] [address] Surgeon Surgical Oncology 10/25/18 Brandy Aguirre, RIBBON WINDER [address] [place] [address] Nurse Practitioner Certified Clinical Nurse Specialist 10/25/18 Jo-Ann Morrow, PhD [address] [place] [address] Nurse Practitioner Radiation Oncology 10/25/18 Christina Louis VARYING EXCEPTIONALITIES TEACHER [address] [place] [address] Nurse Practitioner Medical Oncology 10/25/18 documented as of this encounter
--- OUTSIDE RECORDS SUMMARY | 2024-04-24 05:56 | XMS_ITS | Encounter Summary ---
Author Organization [facility] Address [address] [place] [address] Phone Care Team Providers Care Manager Of Application Development Name Role Phone Erica Rodrigues MD Unavailable Gasper Kaba MD Unavailable [phone] Brandy Aguirre QUALITY RN Unavailable [phone] Jo-Ann Morrow PhD Unavailable [phone] Christina oLuis NURSE PRACTITIONER HOSPITALIST Unavailable Martin Vazquez MD Primary Care Provider [phone] Reason for Referral * Diagnostic Imaging (Routine) - Closed Specialty Diagnoses / Procedures Referred By Contac t Referred To Contact Diagnoses Rheumatoid 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 (CMS/HCC) (HCC) Procedures XR Foot Left 3 or More Views Patricia Martinez MD Phone: tel: fax: Referral ID Status Reason Start Date Expiration Date Visits Re quested Visits Authorized [id number] Closed 02/28/2019 09/08/2020 1 1 R OPERATOR TANKER TRUCK DRIVER * Diagnostic Imaging (Routine) - Closed Specialty Diagnoses / Procedures Referred By Contac t Referred To Contact Diagnoses Rheumatoid 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 (CMS/HCC) (HCC) Procedures XR Foot Right 3 or More Views Patricia Martinez MD Phone: tel: fax: Referral ID Status Reason Start Date Expiration Date Visits Re quested Visits Authorized [id number] Closed 02/28/2019 09/08/2020 1 1 R OPERATOR TANKER TRUCK DRIVER * Diagnostic Imaging (Routine) - Closed Specialty Diagnoses / Procedures Referred By Contac t Referred To Contact Diagnoses Rheumatoid 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 (CMS/HCC) (HCC) Procedures XR Hand Right 3 or More Views Patricia Martinez MD Phone: tel: fax: Referral ID Status Reason Start Date Expiration Date Visits Re quested Visits Authorized [id number] Closed 02/28/2019 09/08/2020 1 1 R OPERATOR TANKER TRUCK DRIVER * Diagnostic Imaging (Routine) - Closed Specialty Diagnoses / Procedures Referred By Contac t Referred To Contact Diagnoses Rheumatoid 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 (CMS/HCC) (HCC) Procedures XR Hand Left 3 or More Views Patricia Martinez MD Phone: tel: fax: Referral ID Status Reason Start Date Expiration Date Visits Re quested Visits Authorized [id number] Closed 02/28/2019 09/08/2020 1 1 R OPERATOR TANKER TRUCK DRIVER Encounter Details Date Type Department Care Team (Late st Contact Info) Description 02/28/2019 10:00 AM OWNER OPERATOR TANKER TRUCK DRIVER Office Visit [facility] [address] [facility] Medical Office Building [address] [place] [address] Patricia Martinez MD 10 [facility] [address] [place] [address] Rheumatoid 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 (CMS/HCC) (Primary Dx) Social History Tobacco Use Types Packs/Day Years Used Date Smoking Tobacco: Never Smokeless Tobacco: Never Alcohol Use Standard Drinks/Week Comments Yes 0 (1 standard drink = 0.6 oz pur e alcohol) social Comments No Sex and Gender Information Value Date Recorded Sex Assigned at Not on file Legal Sex Female 3:42 AM OWNER OPERATOR TANKER TRUCK DRIVER Gender Identity Not on file Sexual Orientation Not on file 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 Not on file Not on file Not on file documented as of this encounter Last Filed Vital Signs Vital Sign Reading Time Taken Comments Blood Pressure 101/70 02/28/2019 10:05 AM OWNER OPERATOR TANKER TRUCK DRIVER Pulse 101 02/28/2019 10:05 AM OWNER OPERATOR TANKER TRUCK DRIVER Temperature 36.9 ??C (98.5 ??F) 02/28/2019 10:[address] Respiratory Rate - - Oxygen Saturation - - Inhaled Oxygen Concentration - - Weight 62 kg (136 lb 11.2 oz) 02/28/2019 10:05 A M OWNER OPERATOR TANKER TRUCK DRIVER Height 160 cm (5' 3 ) 02/28/2019 10:05 AM OWNER OPERATOR TANKER TRUCK DRIVER Body Mass Index 24.22 02/28/2019 10:05 AM OWNER OPERATOR TANKER TRUCK DRIVER documented in this encounter Progress Notes * Patricia Martinez MD - 02/28/2019 10:00 AM CST 02/28/2019 HISTORY OF PRESENT ILLNESS: Yesika Denney is a 58 y.o.year old female returns today for a follow up for 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 She is currently managed on triple DMARD therapy withmethotrexate 20 mg weekly plus hydroxychloroquine 200 mg daily plus sulfasalazine 500 mg b.i.d. shehad follow- up for her breast cancer in January with negative mammograms.. Since the last visit, patient reports Am stiffness of none. Pain is reported in the following joints:episodically in hands, lateral hips The patient has not experienced any interval infections. Father of metastatic lung cancer and had dementia. Interval health history is stress related to spouse and her job termination. Currently the patient reports activities of walking regularly for exercise. She has had an influenza vaccination. DISEASE TREATMENT HISTORY May 10 -initiation of anastrazole and 1 week later onset of polyarticular joint inflammation, +Fhx 2 sisters with RA, one cousin with SLE RF/CCP negative. Started on prednisone, MTX 12/2015- HCQ 200 mg added 02/2016 SSZ added at 500 mg bid 11/2017 Scleritis requiring short term oral prednisone, HLA B-27 negative 08/16/18 bone densities with T-score -0.9 femoral neck, -0.2 in the spine ALLERGIES: Allergies Allergen Reactions ??? Adhesive Hives ??? Adhesive Tape-Silicones Rash ??? Cyclizine Other (See comments) and Hallucinations Reaction: Urinary retention CURRENT MEDICATION: Current Outpatient Medications: ??? aspirin 81 mg enteric coated tablet, Take 81 mg by mouth 2 (two) times a week, Disp: , Rfl: ??? rdwqzojwjl-cbrgamhgfvonb-etqlfdhk-codeine (FIORICET WITH CODEINE) 88-919-69-30 mg per capsule, as needed, Disp: , Rfl: 0 ??? FLUOXETINE 10 mg capsule, Take 20 mg by mouth daily , Disp: , Rfl: ??? ibuprofen (ADVIL,MOTRIN) 400 mg tablet, Take by mouth., Disp: , Rfl: ??? lisinopril (PRINIVIL,ZESTRIL) 40 mg tablet, , Disp: , Rfl: ??? melatonin 5 mg tablet, TAKE 1 TABLET BEDTIME, Disp: , Rfl: ??? ebjazvyvmmob-iit-BN-ginkgo (ONE DAILY WOMEN 50 PLUS) 400-120 mcg-mg tablet, daily., Disp: , Rfl: ??? valACYclovir (VALTREX) 1 gram tablet, Take 1,000 mg by mouth 2 (two) times a day as needed, Disp: , Rfl: ??? valACYclovir (VALTREX) 500 mg tablet, daily., Disp: , Rfl: ??? azithromycin (ZITHROMAX) 250 mg tablet, , Disp: , Rfl: ??? folic acid (FOLVITE) 1 mg tablet, Take 2 tablets (2,000 mcg total) by mouth daily, Disp: 180 tablet, Rfl: 3 ??? hydroxychloroquine (PLAQUENIL) 200 mg tablet, Take 1 tablet (200 mg total) by mouth daily, Disp: 90 tablet, Rfl: 1 ??? methotrexate 2.5 mg tablet, Take 8 tablets (20 mg total) by mouth once a week, Disp: 96 tablet,Rfl: 1 ??? sulfaSALAzine EN (AZULFIDINE EN) 500 mg EC tablet, Take 1 tablet (500 mg total) by mouth 2 (two) times a day, Disp: 180 tablet, Rfl: 1 REVIEW OF SYSTEMS: All other systems are negative PHYSICAL EXAM: Vitals BP 101/70 Pulse 101 Temp 36.9 ??C (98.5 ??F) Ht 160 cm (5' 3 ) Wt 62 kg (136 lb 11.2 oz) LMP (LMP Unknown) BMI 24.22 kg/m?? Physical Exam Pleasant 58-year-old white female Musculoskeletal examination reveals no tenderness or synovitis in a standard 28 joint count. There is dorsal enlargement of the right great toe. LABORATORY DATA: Laboratory review: Chemistry CMP: Lab Results Component Value Date ALBUMIN 4.8 10/12/2018 BUNSER 12 10/12/2018 CALCIUM 9.5 10/12/2018 CO2 26 10/12/2018 CHLORIDE 100 10/12/2018 CREATININE 0.72 10/12/2018 GLUCOSE 88 10/12/2018 POTASSIUM 4.6 07/08/2018 SODIUM 140 10/12/2018 BILITOT <0.2 10/12/2018 PROTEIN 6.8 10/12/2018 PROT 6.8 07/08/2018 ALT 18 10/12/2018 AST 23 10/12/2018 ALKPHOS 49 10/12/2018 , CBC: Lab Results Component Value Date WBC 4.8 10/12/2018 RBC 3.87 10/12/2018 HGB 13.1 10/12/2018 HCT 37.4 10/12/2018 MCV 97 10/12/2018 MCH 33.9 (H) 10/12/2018 MCHC 35.0 10/12/2018 RDW 13.1 10/12/2018 RDWCV 14.0 07/08/2018 MPV 8.0 07/08/2018 NRBC 0.0 06/25/2017 NRBCABS 0.00 07/08/2018 NRBCPCT 0.0 03/16/2018 Lab Results Component Value Date SEDRATE 2 10/12/2018 CRP 1 10/12/2018 IMAGING: No images are attached to the encounter. ASSESSMENT AND PLAN: Problem List Items Addressed This Visit Rheumatology Problems Rheumatoid arthritis with negative rheumatoid factor (CMS/HCC) - Primary She is clinically she is doing very [...] DMARD with CBC, CMP and inflammatory markers. Relevant Orders XR Hand Left 3 or More Views XR Hand Right 3 or More Views XR Foot Right 3 or More Views XR Foot Left 3 or More Views CBC with auto differential Comprehensive metabolic panel CRP (acute phase) Erythrocyte sedimentation rate Vitamin D 25 hydroxy R OPERATOR TANKER TRUCK DRIVER documented in this encounter Miscellaneous Notes * Assessment & Plan Note - Patricia Martinez MD - 02/28/2019 10:46 AM OWNER OPERATOR TANKER TRUCK DRIVER Associated Problem(s): Rheumatoid arthritis with negative rheumatoid factor (HCC) She is clinically she is doing very [...] DMARD with CBC, CMP and inflammatory markers. R OPERATOR TANKER TRUCK DRIVER documented in this encounter Plan of Treatment Not on file documented as of this encounter Procedures Procedure Name Priority Date/Time Associated Diagnosis Comments XR FOOT RIGHT 3 OR MORE VIEWS Schedule Routine, Read Routine (OP Routine) 02/28/2019 11:36 AM OWNER OPERATOR TANKER TRUCK DRIVER Rheumatoid 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 (CMS/HCC) XR FOOT LEFT 3 OR MORE VIEWS Schedule Routine, Read Routine (OP Routine) 02/28/2019 11:36 AM OWNER OPERATOR TANKER TRUCK DRIVER Rheumatoid 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 (CMS/HCC) XR HAND RIGHT 3 OR MORE VIEWS Schedule Routine, Read Routine (OP Routine) 02/28/2019 11:36 AM OWNER OPERATOR TANKER TRUCK DRIVER Rheumatoid 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 (CMS/HCC) XR HAND LEFT 3 OR MORE VIEWS Schedule Routine, Read Routine (OP Routine) 02/28/2019 11:36 AM OWNER OPERATOR TANKER TRUCK DRIVER Rheumatoid 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 (CMS/HCC) documented in this encounter Results * XR Foot Left 3 or More Views (02/28/2019 11:36 AM OWNER OPERATOR TANKER TRUCK DRIVER) Anatomical Region Laterality Modality Lower Extremities, Foot Left Computed Radiography 02/28/2019 11:3 8 AM OWNER OPERATOR TANKER TRUCK DRIVER Impressions 02/28/2019 11:38 AM OWNER OPERATOR TANKER TRUCK DRIVER 1. ??Unchanged nonspecific right 3rd metacarpal head erosion. ??No other radiographic evidence of inflammatory arthritis. Electronically signed by: Harpal Lozoya M.D. Narrative 02/28/2019 11:38 AM OWNER OPERATOR TANKER TRUCK DRIVER EXAMINATION: 1. ??Right hand 3+ views 2. [...] arthritis. Electronically signed by: Harpal Lozoya M.D. Patricia Martinez MD IMG XR PROCEDURES Final Resu lt * XR Foot Right 3 or More Views (02/28/2019 11:36 AM OWNER OPERATOR TANKER TRUCK DRIVER) Anatomical Region Laterality Modality Lower Extremities, Foot Right Computed Radiography 02/28/2019 11:3 8 AM OWNER OPERATOR TANKER TRUCK DRIVER Impressions 02/28/2019 11:38 AM OWNER OPERATOR TANKER TRUCK DRIVER 1. ??Unchanged nonspecific right 3rd metacarpal head erosion. ??No other radiographic evidence of inflammatory arthritis. Electronically signed by: Harpal Lozoya M.D. Narrative 02/28/2019 11:38 AM OWNER OPERATOR TANKER TRUCK DRIVER EXAMINATION: 1. ??Right hand 3+ views 2. [...] 3 or More Views (02/28/2019 11:36 AM OWNER OPERATOR TANKER TRUCK DRIVER) Anatomical Region Laterality Modality Upper Extremities, Hand Right Computed Radiography 02/28/2019 11:3 8 AM OWNER OPERATOR TANKER TRUCK DRIVER Impressions 02/28/2019 11:38 AM OWNER OPERATOR TANKER TRUCK DRIVER 1. ??Unchanged nonspecific right 3rd metacarpal head erosion. ??No other radiographic evidence of inflammatory arthritis. Electronically signed by: Harpal Lozoya M.D. Narrative 02/28/2019 11:38 AM OWNER OPERATOR TANKER TRUCK DRIVER EXAMINATION: 1. ??Right hand 3+ views 2. [...] 3 or More Views (02/28/2019 11:36 AM OWNER OPERATOR TANKER TRUCK DRIVER) Anatomical Region Laterality Modality Upper Extremities, Hand Left Computed Radiography 02/28/2019 11:3 8 AM OWNER OPERATOR TANKER TRUCK DRIVER Impressions 02/28/2019 11:38 AM OWNER OPERATOR TANKER TRUCK DRIVER 1. ??Unchanged nonspecific right 3rd metacarpal head erosion. ??No other radiographic evidence of inflammatory arthritis. Electronically signed by: Harpal Lozoya M.D. Narrative 02/28/2019 11:38 AM OWNER OPERATOR TANKER TRUCK DRIVER EXAMINATION: 1. ??Right hand 3+ views 2. [...] IMG XR PROCEDURES Final Resu lt * Vitamin D 25 hydroxy (02/28/2019 11:30 AM OWNER OPERATOR TANKER TRUCK DRIVER) Vitamin D 25-OH 79 30 - 80 ng/mL KATHY ROOT Comment:Testing performed by : [facility], [address] [facility] [place]., [address] Blood specimen (specimen) 02/28/2019 11:30 AM OWNER OPERATOR TANKER TRUCK DRIVER 02/28/2019 2:05 PM OWNER OPERATOR TANKER TRUCK DRIVER Patricia Martinez MD LAB BLOOD ORDERABLES Final R esult Performing Organization Address [facility] de Phone Number KATHY CASTRO [address] [facility] [employer] [place], [place] [id number] * Erythrocyte sedimentation rate (02/28/2019 11:30 AM OWNER OPERATOR TANKER TRUCK DRIVER) Erythrocyte sedimentation rate 7 1 - 30 mm/hr [facility] Blood specimen (specimen) 02/28/2019 11:30 AM OWNER OPERATOR TANKER TRUCK DRIVER 02/28/2019 1:05 PM OWNER OPERATOR TANKER TRUCK DRIVER Patricia Martinez MD LAB BLOOD ORDERABLES Final R esult Performing Organization Address [facility] de Phone Number KATHY ROOTCH [address] [facility] [employer] [place], [place] [id number] * CRP (acute phase) (02/28/2019 11:30 AM OWNER OPERATOR TANKER TRUCK DRIVER) Pathologist [facility] CRP 1.0 <=10.0 mg/L KATHY ROOT Blood specimen (specimen) 02/28/2019 11:30 AM OWNER OPERATOR TANKER TRUCK DRIVER 02/28/2019 12:30 PM OWNER OPERATOR TANKER TRUCK DRIVER Result [facility] Patricia Martinez MD LAB BLOOD ORDERABLES Final R esult Performing Organization Address [facility] de Phone Number KATHY ROOTCH [address] [facility] [place] [address] * Comprehensive metabolic panel (02/28/2019 11:30 AM OWNER OPERATOR TANKER TRUCK DRIVER) Sodium 142 135 - 145 mmol/L [facility] Potassium, pl 4.4 3.3 - 4.9 mmol/L [facility] Chloride 103 97 - 110 mmol/L [facility] CO2 27 22 - 32 mmol/L [facility] Anion gap 12 2 - 15 mmol/L [facility] BUN 13 8 - 25 mg/dL [facility] Creatinine 0.80 0.60 - 1.10 mg/dL [facility] Glucose 103 70 - 199 mg/dL [facility] Comment: Interpretive Data Fasting glucose >/= 126 [...] [facility] Blood specimen (specimen) 02/28/2019 11:30 AM OWNER OPERATOR TANKER TRUCK DRIVER 02/28/2019 12:30 PM OWNER OPERATOR TANKER TRUCK DRIVER us Patricia Martinez MD LAB BLOOD ORDERABLES Final R esult [facility] [address] [facility] Department [place] [address] * (ABNORMAL) CBC with auto differential (02/28/2019 11:30 AM OWNER OPERATOR TANKER TRUCK DRIVER) WBC 4.1 3.8 - 9.9 K/cumm [facility] Comment:Testing performed by : [facility], [address] [place] [address] Hgb 12.9 11.9 - 15.5 g/dL [facility] Comment:Testing performed by : [facility], [address] [place] [address] [place] [address] Hct 38.8 35.6 - 45.5 % [facility] Comment:Testing performed by : [facility], [address] [place], [place] [address], AMAYA [address] Plt 221 150 - 400 K/cumm [facility] Comment:Testing performed by : [facility], [address] [place] [address] [place] [address] MPV 9.9 9.1 - 12.3 fL [facility] Comment:Testing performed by : [facility], [address] [place] [address] [place] [address] RBC 3.80(L) 3.90 - 5.20 M/cumm [facility] Comment:Testing performed by : [facility], [address] [place], [place] [address] [address] MCV 102(H) 81 - 96 fL [facility] Comment:Testing performed by : [facility], [address] [place] [address] [place] [address] MCH 33.9(H) 27.1 - 33.3 pg [facility] Comment:Testing performed by : [facility], [address] [place] [address] [place] [address] MCHC 33.2 32.3 - 35.7 g/dL [facility] Comment:Testing performed by : [facility], [address] [place], [place] [address] [address] RDW CV 13.0 11.1 - 14.9 % [facility] Comment:Testing performed by : [facility], [address] [place] [address] [place] [address] RDW SD 48.4(H) 35.7 - 48.1 fL [facility] Comment:Testing performed by : [facility], [address] [place], [place] [address] [address] Blood specimen (specimen) 02/28/2019 11:30 AM OWNER OPERATOR TANKER TRUCK DRIVER 02/28/2019 11:53 AM OWNER OPERATOR TANKER TRUCK DRIVER Patricia Martinez MD LAB BLOOD ORDERABLES Final R esult K[facility]Y [facility] [address] [facility] Department [place] [address] documented in this encounter Visit Diagnoses Diagnosis Rheumatoid 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 (CMS/HCC) (HCC)- Primary documented in this encounter Historical Medications * This list may reflect changes made after this encounter. valACYclovir (VALTREX) 1 gram tablet Take 1,000 mg by mouth 2 (two) times a day as needed 03/30/2019 butalbital-acetam inophen-caffeine- codeine (FIORICET WITH CODEINE) 20-107-38-30 mg per capsule as needed 0 01/20/2019 03/30/2019 added in this encounter Care Teams Manager Of Application Development Relationship Specialty Start Date End Date Martin Vazquez MD [address] [address] PCP - General Internal Medicine 01/18/19 01/04/20 Erica Rodrigues MD [address] [facility] [address] [place] [address] Radiation Oncologist Radiation Oncology 10/25/18 Gasper Kaba MD [address] [facility] [address] [place] [address] Surgeon Surgical Oncology 10/25/18 Brandy Aguirre, QUALITY RN [address] [facility] [address] [place] [address] Nurse Practitioner Certified Clinical Nurse Specialist 10/25/18 Jo-nAn Morrow, PhD [address] [facility] [address] [place] [address] Nurse Practitioner Radiation Oncology 10/25/18 Christina Louis NP [address] [facility] [address] [place] [address] Nurse Practitioner Medical Oncology 10/25/18 documented as of this encounter
--- OUTSIDE RECORDS SUMMARY | 2024-04-24 05:56 | XMS_ITS | Encounter Summary ---
Author Organization [facility] Address [address] [place] [address] Phone Care Team Providers Care Attorney Name Role Phone Erica Rodrigues MD Unavailable Gasper Kaba MD Unavailable Brandy Aguirre ELEVATOR CONDUCTOR Unavailable [phone] Jo-Ann Morrow PhD Unavailable [phone] Christina Louis BUTTER WRAPPER Unavailable [phone] Martin Vazquez MD Primary Care Provider [phone] Encounter Details Date Type Department Care Team (Late st Contact Info) Description 06/06/2019 Orders Only [facility] Rheumatology [address] [facility] Medical Office Building [address] [place] [address] Ximena Ellison, PHILIP High risk medication use (Primary Dx) Social History Tobacco Use Types Packs/Day Years Used Date Smoking Tobacco: Never Smokeless Tobacco: Never Alcohol Use Standard Drinks/Week Comments Yes 1 (1 standard drink = 0.6 oz pur e alcohol) social Comments No Sex and Gender Information Value Date Recorded Sex Assigned at Not on file Legal Sex Female 3:42 AM HAT FORMING MACHINE OPERATOR Gender Identity Not on file Sexual Orientation Not on file 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 Not on file Not on file documented as of this encounter Plan of Treatment Scheduled Orders Name Type Priority Associated Diagnoses Orde r Schedule CBC with auto differential Lab Routine High risk medication use Expected: 06/06/2019, Expires: 07/05/2019 Comprehensive metabolic panel Lab Routine High risk medication use Expected: 09/04/2019, Expires: 06/06/2020 CRP, high sensitivity Lab Routine High risk medication use Expected: 06/06/2019, Expires: 07/05/2019 Erythrocyte sedimentation rate Lab Routine High risk medication use Expected: 06/06/2019, Expires: 07/05/2019 documented as of this encounter Visit Diagnoses Diagnosis High risk medication use- Primary documented in this encounter Care Teams Attorney Relationship Specialty Start Date End Date Martin Vazquez MD [address] [address] PCP - General Internal Medicine 01/18/19 01/04/20 Erica Rodrigues MD [address] [address] Radiation Oncologist Radiation Oncology 10/25/18 Gasper Kaba MD [address] [facility] [address] [place] [address] Surgeon Surgical Oncology 10/25/18 Brandy Aguirre, ELEVATOR CONDUCTOR [address] [address] Nurse Practitioner Certified Clinical Nurse Specialist 10/25/18 Jo-Ann Morrow, PhD [address] [facility] [address] [place] [address] Nurse Practitioner Radiation Oncology 10/25/18 Christina Louis, BUTTER WRAPPER [address] [facility] [address] [place] [address] Nurse Practitioner Medical Oncology 10/25/18 documented as of this encounter
--- OUTSIDE RECORDS SUMMARY | 2024-04-24 05:56 | XMS_ITS | Encounter Summary ---
Author Organization [facility] [employer] [facility] Address [address] [place] [address] Phone Care Team Providers Care Vocational Rehabilitation Administrator Name Role Phone Erica Rodrigues MD Unavailable Gasper Kaba MD Unavailable [phone] Brandy Aguirre ROUTER SETTER Unavailable [phone] Jo-Ann Morrow PhD Unavailable Christina Louis FRUIT AND VEGETABLE PACKER Unavailable Martin Vazquez MD Primary Care Provider [phone] Reason for Visit * Reason Comments Follow-up * Consultation (Routine) - Canceled Specialty Diagnoses / Procedures Referred By Contac t Referred To Contact Surgical Oncology Diagnoses HX: breast cancer Mark Cerna DO Phone: tel: fax: [facility] 5th [place] [address] [place] [address] Phone: tel: fax: Referral ID Status Reason Start Date Expiration Date Visits Requested Visits Authorized [id number] Canceled Specialty Services Required 02/24/2018 09/05/2019 1 1 Encounter Details Date Type Department Care Team (Late st Contact Info) Description 01/18/2019 9:00 AM CDT Office Visit [facility] [address] 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 NAME:?Yesika Denney :?1960 DATE:?01/18/19 ?? CHIEF COMPLAINT: Follow-up for right breast cancer ?? HISTORY OF ??PRESENT ILLNESS: ??I saw Yesika Denney for yearly follow-up. She was seen in 2014 after undergoing imaging at an outside facility that was abnormal. She then underwent image guided biopsy demonstrating breast cancer and on 11/16/2014, she underwent needle directed excisional biopsy with sentinel lymph node biopsy of the right breast for stage I, T1 cN0, M0, ER/RI positive, HER 2 negative, invasive ductal carcinoma. She had Oncotype DX recurrence score of 22 and underwent adjuvantchemotherapy of Taxotere and cyclophosphamide X4 as well as accelerated partial breast radiation. She was placed on anastrozole and had significant side effects and ultimately was discontinued. Past Medical History: Diagnosis Date ??? Benign left breast lump 06/2002 biopsy showed fibrosis and hyperplasia ??? Brain aneurysm ??? Brain aneurysm Followed by Dr. Chaudhari: Every 3 years ??? Breast cancer (CMS/HCC) ??? Depression ??? Elevated cholesterol ??? Hypertension ??? Migraine ??? RA (rheumatoid arthritis) (CMS/HCC) Past Surgical History: Procedure Laterality Date ??? ABLATION ??? BREAST LUMPECTOMY ??? CYST REMOVAL ? ? PORT PLACEMENT CHEST >5 YEARS N/A 01/17/2015 ??? PORT REMOVAL N/A 04/10/2015 ??? RHINOPLASTY 1984 ??? THYROIDECTOMY, PARTIAL Left 1997 Dr. Demetris Aguilar ??? TONSILLECTOMY 1982 Social History Socioeconomic History ??? Marital status: Spouse name: None ??? Number of children: 3 ??? Years of education: None ??? Highest education level: None Occupational History ??? 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 Financial resource strain: None ??? Food insecurity: Worry: None Inability: None ??? Transportation needs: Medical: None Non-medical: None Tobacco Use ??? Smoking status: Never Smoker ??? Smokeless tobacco: Never Used Substance and Sexual Activity ??? Alcohol use: No ??? Drug use: No ??? Sexual activity: Yes Partners: Male control/protection: Post-menopausal Lifestyle ??? Physical activity: Days per week: None Minutes per session: None ??? Stress: None Relationships ??? Social connections: Talks on phone: None Gets together: None Attends mu-ism service: None Active member of club or organization: None Attends meetings of clubs or organizations: None Relationship status: None ??? Intimate partner violence: Fear of current or ex partner: None Emotionally abused: None Physically abused: None Forced sexual activity: None Other Topics Concern ??? None Social History Narrative ??? None Family History Problem Relation Age of Onset ??? Rheum arthritis Sister Family history of rheumatoid arthritis - (Added by TW Conv) ??? Hypertension Mother ??? Other (A-fib) Mother ??? Other (Valve replacements) Mother ??? Hypertension Father ??? Dementia Father ??? Colon cancer Maternal Grandfather ??? Other (Heart problems) Maternal Grandfather ??? Rheum arthritis Sister Prior to Admission medications Medication Sig [...] a week 11/02/18 Yes Patricia Perea MD [id number] (ONE DAILY WOMEN 50 PLUS) 400-120 mcg-mg [...] retention ?? PHYSICAL EXAMINATION: GENERAL: ??Well-developed, well-nourished 58 y.o. female in no apparent distress. EYES: [...] she identifies any changes or problems. ? ADRIANA Tyson, ACNS-BC ? Endocrine &??Oncologic Surgery ? I have reviewed the history, physical, assessment and plan and concur with the findings. ? Gasper ??Lorena Kaba M.D. brick dropper Cosigned by Gasper Kaba MD at 01/18/2019 2:24 PM CDT documented in this encounter Plan of Treatment Not on file documented as of this encounter Visit Diagnoses Diagnosis History of breast cancer- Primary Personal history of malignant neoplasm of breast documented in this encounter Discontinued Medications Medication Sig Discontinue Reason Start Date End Da te FLUoxetine (PROzac) 20 mg capsule Take 1 capsule (20 mg total) by mouth daily. 04/29/2018 01/18/2019 lisinopril (PRINIVIL,ZESTRIL) 20 mg tablet daily. 01/18/2019 documented as of this encounter Historical Medications * This list may reflect changes made after this encounter. lisinopriL (PRINIVIL,ZESTRIL ) 20 mg tablet Take 20 mg by mouth daily 01/14/2019 09/22/2019 FLUOXETINE 10 mg capsule Take 20 mg by mouth daily 01/14/2019 01/05/2020 azithromycin (ZITHROMAX) 250 mg tablet 01/14/2019 03/30/2019 added in this encounter Care Teams Vocational Rehabilitation Administrator Relationship Specialty Start Date End Date Martin Vazquez MD [address] [address] PCP - General Internal Medicine 01/18/19 01/04/20 Erica Rodrigues MD [address] [facility] [address] [place] [address] Radiation Oncologist Radiation Oncology 10/25/18 Gasper Kaba MD [address] [facility] [address] [place] [address] Surgeon Surgical Oncology 10/25/18 Brandy Aguirre, ROUTER SETTER [address] [facility] [address] [place] [address] Nurse Practitioner Certified Clinical Nurse Specialist 10/25/18 Jo-Ann Morrow, PhD [address] [facility] [address] [place] [address] Nurse Practitioner Radiation Oncology 10/25/18 Christina Louis FRUIT AND VEGETABLE PACKER [address] [facility] [address] [place] [address] Nurse Practitioner Medical Oncology 10/25/18 documented as of this encounter
--- OUTSIDE RECORDS SUMMARY | 2024-04-24 05:56 | XMS_ITS | Encounter Summary ---
Author Organization [facility] Address [address] [facility] [address] [place] [address] Care Team Providers Care Duco Polisher Name Role Phone Erica Rodrigues MD Unavailable Gasper Kaba MD Unavailable [phone] Brandy Aguirre FURNITURE SHAMPOOER Unavailable [phone] Jo-Ann Morrow PhD Unavailable [phone] Christina Louis PLAN COORDINATOR Unavailable [phone] Martin Vazquez MD Primary Care Provider [phone] Encounter Details Date Type Department Care Team (Late st Contact Info) Description 06/24/2019 Telephone [facility] Cardiology 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 Zepeda. She verbalized understanding and will continue to monitor her symptoms. Reviewed next appointment date/time. * Telephone Encounter - Harpal Zepeda MD - 06/28/2019 7:57 AM CDT Note and chart have been reviewed. The patient's symptoms are to be expected given her occasional premature ectopic complexes. She has an appointment to see me in short interval follow-up to discuss this further and at that time if she is still symptomatic I will discuss advancing her beta-dylan.There is no need for advancing her medications sooner than this in my opinion * Telephone Encounter - Irlanda Amato RN - 06/24/2019 2:07 PM CDT I spoke with the patient and reviewed response per JENNI Jackson. She verbalized understanding and will wait to hear back for further recommendations from Dr. Zepeda. * Telephone Encounter - Renetta Evangelista NP - 06/24/2019 1:55 PM CDT After reviewing Dr. Zepeda's recent office note, I will have to defer to him to give more definite recommendations. However, I don't want her to worry over the weekend, so please let her know thatDr. Zepeda did not think she was experiencing anything dangerous, and the metoprolol is the right medicine for her to be on at this time. I agree with recommendation to reduce caffeine intake. Tell her we will get back to her next week after Dr. Zepeda has a chance to review her heart monitorrhythm strips more closely. Thanks. * Telephone Encounter - Irlanda Amato RN - 06/24/2019 12:02 PM CDT Spoke with the patient. She states for the past 3-4 days (starting /Thu) she has been experiencing a weird feeling of a skipped heart beat . She has been wearing her fitbit and has nothad any tachycardia since starting beta dylan, but the fluttering/skipped beat is new for her. She said on rare occasions in the past she may have had this symptom, but now it is becoming more frequent and noticeable especially in the evening. She denies any other accompanying symptoms other than just being aware of the fluttering sensation. She wonders if she should just ignore the symptoms and see if they improve with the beta dylan or if meds need adjusted. Patient states she drinks 1 cup of coffee daily and 1-2 cups of tea per day. Given her symptoms, advised to try to limit caffeine intake. If unable to completely eliminate, then recommended limiting to the morning to see if this will decrease her symptoms in the evening. Also informed I will route message to F/CT to see if there are any further recommendations. * Telephone Encounter - Vivien Kaba - 06/24/2019 11:04 AM CDT Pt called to report her arrhythmia has been more frequent that normal. Pt report having some strange feeling but can't explain it. [phone] documented in this encounter Plan of Treatment Not on file documented as of this encounter Visit Diagnoses Not on filedocumented in this encounter Care Teams Duco Polisher Relationship Specialty Start Date End Date Martin Vazquez MD [address] [place] [address] PCP - General Internal Medicine 01/18/19 01/04/20 Erica Rodrigues MD [address] [place] [address] Radiation Oncologist Radiation Oncology 10/25/18 Gasper Kaba MD [address] [facility] [address] [place] [address] Surgeon Surgical Oncology 10/25/18 Brandy Aguirre, FURNITURE SHAMPOOER [address] [facility] [address] [place] [address] Nurse Practitioner Certified Clinical Nurse Specialist 10/25/18 Jo-Ann Morrow, PhD [address] [place] [address] Nurse Practitioner Radiation Oncology 10/25/18 Christina Louis, PLAN COORDINATOR [address] [place] [address] Nurse Practitioner Medical Oncology 10/25/18 documented as of this encounter
--- OUTSIDE RECORDS SUMMARY | 2024-04-24 05:56 | XMS_ITS | Encounter Summary ---
Author Organization [facility] Address [address] [place] [address] Phone Care Team Providers Care Rip Sawyer Name Role Phone Erica Rodrigues MD Unavailable Gasper Kaba MD Unavailable Brandy Aguirre BIOLOGICAL LAB TECHNICIAN Unavailable [phone] Jo-Ann Morrow PhD Unavailable Christina Louis SET UP MACHINIST Unavailable [phone] Martin Vazquez MD Primary Care Provider [phone] Encounter Details Date Type Department Care Team (Late st Contact Info) Description 07/12/2019 Orders Only [facility] Oncology [address] [facility] Medicine 7th [place] [address] [place] [address] Christina Louis, SET UP MACHINIST [address] [facility] [address] [place] [address] Malignant neoplasm of central portion of right breast in female, estrogen receptor positive (CMS/HCC) (Primary Dx) Social History Tobacco Use Types Packs/Day Years Used Date Smoking Tobacco: Never Smokeless Tobacco: Never Alcohol Use Standard Drinks/Week Comments Yes 1 (1 standard drink = 0.6 oz pur e alcohol) social Comments No Sex and Gender Information Value Date Recorded Sex Assigned at Not on file Legal Sex Female 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 Gender Identity Not on file Sexual Orientation Not on file 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 Not on file Not on file documented as of this encounter Plan of Treatment Not on file documented as of this encounter Results * Vitamin D 25 hydroxy (07/20/2020 11:04 AM CDT) Pathologist [facility] Vitamin D 25-OH 63 30 - 80 ng/mL [facility] Blood specimen (specimen) 07/20/2020 11:04 AM CDT 07/20/2020 11:29 AM CDT Christina Louis SET UP MACHINIST LAB BLOOD ORDERABLES Final Resu lt Performing Organization Address City/[facility]/ZIP Co de Phone Number [facility] [place] [address] * Cancer antigen 15-3 (07/20/2020 11:04 AM CDT) [facility] CA 15-3 ag 10.0 0.0 - 25.0 units/mL [facility] Blood specimen (specimen) 07/20/2020 11:04 AM CDT 07/20/2020 11:29 AM CDT Christina Louis SET UP MACHINIST LAB BLOOD ORDERABLES Final Resu lt [facility] [place] [address] * (ABNORMAL) Comprehensive metabolic panel (07/20/2020 11:04 AM CDT) [facility] Sodium 144 135 - 145 mmol/L [facility] Comment:Testing performed by : [facility], [address] [place] [phone] Potassium, pl 4.0 3.3 - 4.9 mmol/L [facility] Comment:Testing performed by : [facility], [address] [place] [phone] Chloride 104 97 - 110 mmol/L [facility] Comment:Testing performed by : [facility], [address] [place] [phone] CO2 35(H) 22 - 32 mmol/L [facility] Comment:Testing performed by : [facility], [address] [place] [phone] Anion gap 5 2 - 15 mmol/L [facility] Comment:Testing performed by : [facility], [address] [place] [phone] BUN 13 8 - 25 mg/dL [facility] Comment:Testing performed by : [facility], [address] [place] [phone] Creatinine 0.63 0.60 - 1.10 mg/dL [facility] Comment:Testing performed by : [facility], [address] [place] [phone] Glucose 80 70 - 199 mg/dL [facility] Comment: Interpretive Data Fasting glucose >/= 126 [...] was last revised 2017. Testing performed by: [facility], [address] [place] [phone] Calcium 9.8 8.5 - 10.3 mg/dL [facility] Comment:Testing performed by : [facility], [address] [place] [phone] Bilirubin, total 0.3 0.1 - 1.2 mg/dL [facility] Comment:Testing performed by : [address] [phone] Protein, pl 6.8 6.5 - 8.5 g/dL [facility] Comment:Testing performed by : [address] [phone] Albumin 4.5 3.5 - 5.0 g/dL [facility] Comment:Testing performed by : [facility], [address] [place] [phone] Alk phos 46 40 - 130 Units/L [facility] Comment:Testing performed by : [facility], [address] [place] [phone] ALT 15 7 - 45 Units/L [facility] Comment:Testing performed by : [facility], [address] [place] [phone] AST 16 10 - 45 Units/L [facility] Comment:Testing performed by : [facility], [address] [place] [phone] Blood specimen (specimen) 07/20/2020 11:04 AM CDT 07/20/2020 11:07 AM CDT Christina Louis SET UP MACHINIST LAB BLOOD ORDERABLES Final Resu lt Performing Organization Address City/State/[facility] Co de Phone Number [facility] [place] [address] * (ABNORMAL) CBC with auto differential (07/20/2020 11:04 AM CDT) WBC 6.3 3.8 - 9.8 K/cumm [facility] Comment:Testing performed by : [facility], [address] [place] [phone] Hgb 12.8 12.1 - 15.1 g/dL [facility] Comment:Testing performed by : [facility], [address] [place] [phone] Hct 38.6 36.1 - 44.3 % [facility] Comment:Testing performed by : [address] [phone] Plt 222 140 - 440 K/cumm [facility] Comment:Testing performed by : [address] [phone] MPV 7.8 6.8 - 10.4 fL [facility] Comment:Testing performed by : [facility], [address] [place] [phone] RBC 3.82(L) 3.90 - 5.00 M/cumm [facility] Comment:Testing performed by : [facility], [address] [place] [phone] MCV 101.1(H) 80.0 - 97.6 fL [facility] Comment:Testing performed by : [facility], [address] [place] [phone] MCH 33.5 26.7 - 33.7 pg [facility] Comment:Testing performed by : [facility], [address] [place] [phone] MCHC 33.1 32.7 - 35.5 g/dL [facility] Comment:Testing performed by : [facility], [address] [place] [phone] RDW CV 15.8(H) 11.8 - 14.6 % [facility] Comment:Testing performed by : [facility], [address] [place] [phone] NRBC abs 0.00 0.00 - 0.01 K/cumm [facility] Comment:Testing performed by : [facility], [address] [place] [phone] Blood specimen (specimen) 07/20/2020 11:04 AM CDT 07/20/2020 11:07 AM CDT Christina Louis SET UP MACHINIST LAB BLOOD ORDERABLES Final Resu lt Performing Organization Address City/State/[facility] Co de Phone Number [facility] [place] [address] documented in this encounter Visit Diagnoses Diagnosis Malignant neoplasm of central portion of right breast in female, estrogen receptor positive (HCC)- Primary documented in this encounter Care Teams Rip Sawyer Relationship Specialty Start Date End Date Martin Vazquez MD [address] [place] [address] PCP - General Internal Medicine 01/18/19 01/04/20 Erica Rodrigues MD [address] [place] [address] Radiation Oncologist Radiation Oncology 10/25/18 Gasper Kaba MD [address] [place] [address] Surgeon Surgical Oncology 10/25/18 Brandy Aguirre, BIOLOGICAL LAB TECHNICIAN [address] [place] [address] Nurse Practitioner Certified Clinical Nurse Specialist 10/25/18 Jo-Ann Morrow, PhD [address] [place] [address] Nurse Practitioner Radiation Oncology 10/25/18 Christina Louis, SET UP MACHINIST [address] [place] [address] Nurse Practitioner Medical Oncology 10/25/18 documented as of this encounter
--- OUTSIDE RECORDS SUMMARY | 2024-04-24 05:56 | XMS_ITS | Encounter Summary ---
Author Organization [facility] Address [address] [place] [address] Phone Care Team Providers Care Sane Rn Name Role Phone Erica Rodrigues MD Unavailable Gasper Kaba MD Unavailable Brandy Aguirre NET APPLICATION SUPPORT SPECIALIST Unavailable [phone] Jo-Ann Morrow PhD Unavailable [phone] Christina Louis GROUND CREW SUPERVISOR Unavailable [phone] Martin Vazquez MD Primary Care Provider [phone] Encounter Details Date Type Department Care Team (Late st Contact Info) Description 01/18/2019 Orders Only [facility] Surgery [address] [facility] 5th [place] [address] [place] [address] Brandy Aguirre, NET APPLICATION SUPPORT SPECIALIST [address] [address] History of breast cancer (Primary Dx) Social History Tobacco Use Types Packs/Day Years Used Date Smoking Tobacco: Never Smokeless Tobacco: Never Alcohol Use Standard Drinks/Week Comments No 0 (1 standard drink = 0.6 oz pur e alcohol) Comments No Sex and Gender Information Value Date Recorded Sex Assigned at Not on file 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 Gender Identity Not on file Sexual Orientation Not on file 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 Not on file Not on file documented as of this encounter Plan of Treatment Not on file documented as of this encounter Visit Diagnoses Diagnosis History of breast cancer- Primary Personal history of malignant neoplasm of breast documented in this encounter Care Teams Sane Rn Relationship Specialty Start Date End Date Martin aVzquez MD [address] [place] [address] PCP - General Internal Medicine 01/18/19 01/04/20 Erica Rodrigues MD [address] [place] [address] Radiation Oncologist Radiation Oncology 10/25/18 Gasper Kaba MD [address] [place] [address] Surgeon Surgical Oncology 10/25/18 Brandy Aguirre, NET APPLICATION SUPPORT SPECIALIST [address] [place] [address] Nurse Practitioner Certified Clinical Nurse Specialist 10/25/18 Jo-Ann Morrow, PhD [address] [place] [address] Nurse Practitioner Radiation Oncology 10/25/18 Christina Louis, GROUND CREW SUPERVISOR [address] [place] [address] Nurse Practitioner Medical Oncology 10/25/18 documented as of this encounter
--- OUTSIDE RECORDS SUMMARY | 2024-04-24 05:56 | XMS_ITS | Encounter Summary ---
Author Organization [facility] Healthcare Address [address] [place] [address] Care Team Providers Care Geographic Information Systems Manager Name Role Phone Erica Rodrigues MD Unavailable Gasper Kaba MD Unavailable [phone] Brandy Aguirre Unavailable [phone] Jo-Ann Morrow PhD Unavailable [phone] Christina Louis NP Unavailable [phone] Martin Vazquez MD Primary Care Provider [phone] Reason for Referral * Diagnostic Imaging (Routine) - Closed Specialty Diagnoses / Procedures Referred By Niranjan farrell Referred To Contact Diagnoses History of breast cancer Procedures Screening Mammogram Bilateral W Brandy Vyas CNS Phone: tel: fax: [address] [address] Referral ID Status Reason Start Date Expiration Date Visits Re quested Visits Authorized [id number] Closed 01/11/2019 07/22/2020 1 1 Reason for Visit * Diagnostic Imaging (Routine) - Closed Specialty Diagnoses / Procedures Referred By Niranjan farrell Referred To Contact Diagnoses History of breast cancer Procedures Screening Mammogram Bilateral W Brandy Vyas CNS Phone: tel: fax: [facility] [address] [facility] [place] [address] Referral ID Status Reason Start Date Expiration Date Visits Re quested Visits Authorized [id number] Closed 01/11/2019 07/22/2020 1 1 Encounter Details Date Type Department Care Team (Latest Contact Info) Description 01/18/2019 8:45 AM CDT - 01/18/2019 11:59 PM CDT Hospital Encounter [facility] [address] [place] [address] Brandy Aguirre, [facility] [address] [address] Dyana Carreno MD [address] [place] [address] History of breast cancer Discharge Disposition: Discharge to home or self care Social History Tobacco Use Types Packs/Day Years Used Date Smoking Tobacco: Never Smokeless Tobacco: Never Alcohol Use Standard Drinks/Week Comments No 0 (1 standard drink = 0.6 oz pur e alcohol) Comments No Sex and Gender Information Value Date Recorded Sex Assigned at Not on file Legal Sex Female 3:42 AM INSECTICIDE MAKER Gender Identity Not on file Sexual Orientation Not on file 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 Not on file Not on file Not on file documented as of this encounter Medications at Time of Discharge aspirin 81 mg enteric coated tabletIndications :can't recall why they put her on this Take 1 tablet (81 mg total) by mouth 2 (two) times a week Tues and Thu03/17/2022 azithromycin (ZITHROMAX) 250 mg tablet 01/14/2019 03/30/2019 FLUOXETINE 10 mg capsule Take 20 mg by mouth daily 01/14/2019 01/05/2020 folic acid (FOLVITE) 1 mg tablet Take 2 tablets (2,000 mcg total) by mouth daily 180 tablet 3 11/02/2018 02/28/2019 hydroxychloroquin e (PLAQUENIL) 200 mg tablet Take 1 tablet (200 mg total) by mouth daily 90 tablet 1 11/29/2018 02/28/2019 ibuprofen (ADVIL,MOTRIN) 400 mg tablet Take by mouth. 03/30/2019 lisinopriL (PRINIVIL,ZESTRIL ) 20 mg tablet Take 20 mg by mouth daily 01/14/2019 09/22/2019 melatonin 5 mg tablet TAKE 1 TABLET BEDTIME 03/30/2019 methotrexate 2.5 mg tabletIndications :autoimmune disease Take 8 tablets (20 mg total) by mouth once a week 96 tablet 1 11/02/2018 01/19/2019 multivitamin-min- FA-ginkgo (ONE DAILY WOMEN 50 PLUS) 400-120 mcg-mg tablet daily. 03/30/2019 sulfaSALAzine EN (AZULFIDINE EN) 500 mg EC tablet Take 1 tablet (500 mg total) by mouth 2 (two) times a day 180 tablet 1 11/29/2018 02/28/2019 valACYclovir (VALTREX) 500 mg tablet daily. 01/05/2020 documented as of this encounter Discharge Disposition Disposition Code Departure Means Destination Discharge to home or self care documented in this encounter Progress Notes * Brandy Aguirre CNS - 01/18/2019 11:59 PM CDT I personally reviewed her bilateral screening mammograms read as benign by Dr. Gibson. She will followup in 1 year when she is due for screening mammograms. documented in this encounter Plan of Treatment Not on file documented as of this encounter Procedures Procedure Name Priority Date/Time Associated Diagnosis Comments SCREENING MAMMOGRAM BILATERAL W MARCELO Schedule Routine, Read Routine (OP Routine) 01/18/2019 9:57 AM CDT History of breast cancer documented in this [...] compared to prior imaging studies performed at [facility] on 11/08/2015, 12/03/2016 and 02/09/2018. There are [...] compared to prior imaging studies performed at [facility] on 11/08/2015, 12/03/2016 and 02/09/2018. There are scattered areas of fibroglandular density. There is no suspicious abnormality in either breast. Findings compatible with prior right breast conservation therapy arenoted. Impression: Finding is benign. Annual screening mammography is recommended. OVERALL FINAL ASSESSMENT: BI-RADS CATEGORY 2: Benign. Brandy Aguirre [facility] IMG MAMMO PROCEDURES Final R esult documented in this encounter Visit Diagnoses Diagnosis History of breast cancer Personal history of malignant neoplasm of breast documented in this encounter Care Teams Geographic Information Systems Manager Relationship Specialty Start Date End Date Martin Vazquez MD [address] [facility] [address] [place] [address] PCP - General Internal Medicine 01/18/19 01/04/20 Erica Rodrigues MD [address] [facility] [address] [place], [place] [address] Radiation Oncologist Radiation Oncology 10/25/18 Gasper Kaba MD [address] [facility] [address] [place] [address] Surgeon Surgical Oncology 10/25/18 Brandy Aguirre, CARINA [address] [facility] [address] [place] [address] Nurse Practitioner Certified Clinical Nurse Specialist 10/25/18 Jo-Ann Morrow, PhD [address] [facility] [address] [place] [address] Nurse Practitioner Radiation Oncology 10/25/18 Christina Louis, MOBILE HOME PARK MANAGER [address] [facility] [address] [place] [address] Nurse Practitioner Medical Oncology 10/25/18 documented as of this encounter
--- OUTSIDE RECORDS SUMMARY | 2024-04-24 05:56 | XMS_ITS | Encounter Summary ---
Author Organization [facility] [employer] [facility] Address [address] [place] [address] Phone Care Team Providers Care Condenser Winder Name Role Phone Mark Cerna DO Primary Care Provider [phone] rEica Rodrigues MD Unavailable Gasper Kaba MD Unavailable Brandy Aguirre Unavailable [phone] Jo-Ann Morrow PhD Unavailable [phone] Christina Louis [employer] MANAG[employer] Unavailable [phone] Reason for Visit * Reason Onset Date Comments hs/post op 12/06/2018 Encounter Details Date Type Department Care Team (Late st Contact Info) Description 12/06/2018 Telephone [facility] Obstetrics and Gynecology [address] [facility] 7th Floor [address] [place] [address] Ema Keyes MD [address] [place] [id number] hs/post op Social History Tobacco Use Types Packs/Day Years Used Date Smoking Tobacco: Never Smokeless Tobacco: Never Alcohol Use Standard Drinks/Week Comments No 0 (1 standard drink = 0.6 oz pur e alcohol) Comments No Sex and Gender Information Value Date Recorded Sex Assigned at Not on file Legal Sex Female 3:42 AM CHOIR ACCOMPANIST Gender Identity Not on file Sexual Orientation Not on file 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 Was told he had 2 days to 2 weeks. Pt to call if needed. * Telephone Encounter - Ema Keyes MD - 12/06/2018 10:28 AM CDT If she is otherwise doing well and has no concerns, she is okay to defer postoperative follow up. I am so sorry to hear about her father. She should definitely concentrate on him. Let us know if she needs anything. * Telephone Encounter - Mary Boyd - 12/06/2018 8:25 AM CDT Patient was scheduled for an appointment today for a surgery follow up. She had to cancel due to her father being placed in hospice. She said she was to follow up in 2 weeks from surgery and it has been 3 weeks now, and she isn't having any problems. Does she need to come in for the appointment? She didn't want to reschedule at this time due to everything that is happening with her father. She can be reached at [phone] documented in this encounter Plan of Treatment Not on file documented as of this encounter Visit Diagnoses Not on filedocumented in this encounter Care Teams Condenser Winder Relationship Specialty Start Date End Date Mark Cerna DO PCP - General 09/04/16 01/17/19 Erica Rodrigues MD [address] [place] [address] Radiation Oncologist Radiation Oncology 10/25/18 Gasper Kaba MD [address] [facility] [address] [place] [address] Surgeon Surgical Oncology 10/25/18 Brandy Aguirre, CARINA [address] [facility] [address] [place] [address] Nurse Practitioner Certified Clinical Nurse Specialist 10/25/18 Jo-Ann Morrow, PhD [address] [place] [address] Nurse Practitioner Radiation Oncology 10/25/18 Christina Louis [employer] [address] [place] [address] Nurse Practitioner Medical Oncology 10/25/18 documented as of this encounter
--- OUTSIDE RECORDS SUMMARY | 2024-04-24 05:56 | XMS_ITS | Encounter Summary ---
Author Organization [facility] Address [address] [place] [address] Phone Care Team Providers Care Hog Killer Name Role Phone Erica Rodrigues MD Unavailable Gasper Kaba MD Unavailable [phone] Brandy Aguirre MESSENGER OFFICE Unavailable Jo-Ann Morrow PhD Unavailable [phone] Christina Louis MORTGAGE FUNDER Unavailable [phone] Martin Vazquez MD Primary Care Provider [phone] Encounter Details Date Type Department Care Team (Late st Contact Info) Description 03/30/2019 2:00 PM HELPER ELECTRICAL Office Visit [facility] Neurosurgery [address] [facility] 6th [place] [address] [place] [address] Karoline Martel NP [address] [facility] [address] [place] [address] Cerebral arterial aneurysm (Primary Dx) Social History Tobacco Use Types Packs/Day Years Used Date Smoking Tobacco: Never Smokeless Tobacco: Never Alcohol Use Standard Drinks/Week Comments Yes 1 (1 standard drink = 0.6 oz pur e alcohol) social Comments No Sex and Gender Information Value Date Recorded Sex Assigned at Not on file Legal Sex Female 3:42 AM HELPER ELECTRICAL Gender Identity Not on file Sexual Orientation Not on file 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 on file Not on file Not on file documented as of this encounter Last Filed Vital Signs Vital Sign Reading Time Taken Comments Blood Pressure 120/78 03/30/2019 1:46 PM HELPER ELECTRICAL Pulse 86 03/30/2019 1:46 PM HELPER ELECTRICAL Temperature - - Respiratory Rate - - Oxygen Saturation - - Inhaled Oxygen Concentration - - Weight 62.9 kg (138 lb 9.6 oz) 03/30/2019 1:46 P M HELPER ELECTRICAL Height - - Body Mass Index 24.55 02/28/2019 10:05 AM HELPER ELECTRICAL documented in this encounter Progress Notes * Karoline Martel NP - 03/30/2019 2:00 PM CST Images from the original note were not included. RETURN VISIT Subjective HISTORY OF PRESENT ILLNESS Yesika Denney is a 58 y.o. female with a history of anterior communicating artery aneurysm. Shecomes in today for routine followup an MRI check. She is overall doing well. She does not complain of any new issues. No new issues with headaches. No issues with vision. No issues with weakness or numbness. No bowel or bladder difficulties. VITAL SIGNS BP 120/78 Pulse 86 Wt 62.9 kg (138 lb 9.6 oz) LMP (LMP Unknown) BMI 24.55 kg/m?? ALLERGIES She is allergic to adhesive; adhesive tape-silicones; and cyclizine. MEDICATIONS Current Outpatient Medications: ??? aspirin 81 mg enteric coated tablet, Take 81 mg by mouth 2 (two) times a week, Disp: , Rfl: ??? FLUOXETINE 10 mg capsule, Take 20 mg by mouth daily , Disp: , Rfl: ??? folic acid (FOLVITE) 1 mg tablet, Take 2 tablets (2,000 mcg total) by mouth daily, Disp: 180 tablet, Rfl: 3 ??? hydroxychloroquine (PLAQUENIL) 200 mg tablet, Take 1 tablet (200 mg total) by mouth daily, Disp: 90 tablet, Rfl: 1 ??? lisinopril (PRINIVIL,ZESTRIL) 40 mg tablet, Take 40 mg by mouth daily , Disp: , Rfl: ??? methotrexate 2.5 mg tablet, Take 8 tablets (20 mg total) by mouth once a week, Disp: 96 tablet,Rfl: 1 ??? sulfaSALAzine EN (AZULFIDINE EN) 500 mg EC tablet, Take 1 tablet (500 mg total) by mouth 2 (two) times a day, Disp: 180 tablet, Rfl: 1 ??? valACYclovir (VALTREX) 500 mg tablet, daily., Disp: , Rfl: ??? predniSONE (DELTASONE) 10 mg tablet, Take 1 tablet (10 mg) by mouth daily (Patient not taking: Reported on 03/30/2019), Disp: 90 tablet, Rfl: 1 No current facility-administered medications for this visit. Objective PHYSICAL EXAM On the exam He awake, alert and oriented x3. Pupils are equal and reactive to light. Extraocular movements are intact. Cranial nerve exam is intact. Moves all extremities with equal strength. No issues with Tandem walk. REVIEW OF IMAGING Review of the MRA that was completed today does show unchanged anterior communicating artery aneurysm Assessment/Plan PLAN Yesika Denney doing well from neurosurgery standpoint. Her MRA stable. As discussed with her would like to see her back in 3 years with a repeat MRA or certainly sooner if any new issues arise. Karoline Martel NP Cosigned by Harpal Chaudhari MD at 03/30/2019 7:20 PM HELPER ELECTRICAL ER ELECTRICAL ER ELECTRICAL documented in this encounter Plan of Treatment Not on file documented as of this encounter Visit Diagnoses Diagnosis Cerebral arterial aneurysm- Primary Cerebral aneurysm, nonruptured documented in this encounter Discontinued Medications Medication Sig Discontinue Reason Start Date End Da te azithromycin (ZITHROMAX) 250 mg tablet 01/14/2019 03/30/2019 butalbital-acetaminophen -caffeine-codeine (FIORICET WITH CODEINE) 71-181-18-30 mg per capsule as needed 01/20/2019 03/30/2019 ibuprofen (ADVIL,MOTRIN) 400 mg tablet Take by mouth. 03/30/2019 melatonin 5 mg tablet TAKE 1 TABLET BEDTIME 03/30/2019 rlcdlcsduvrw-nxt-CO-gink go (ONE DAILY WOMEN 50 PLUS) 400-120 mcg-mg tablet daily. 03/30/2019 valACYclovir (VALTREX) 1 gram tablet Take 1,000 mg by mouth 2 (two) times a day as needed 03/30/2019 documented as of this encounter Care Teams Hog Killer Relationship Specialty Start Date End Date Martin Vazquez MD [address] [address] PCP - General Internal Medicine 01/18/19 01/04/20 Erica Rodrigues MD [address] [place] [address] Radiation Oncologist Radiation Oncology 10/25/18 Gasper Kaba MD [address] [place] [address] Surgeon Surgical Oncology 10/25/18 Brandy Aguirre, MESSENGER OFFICE [address] [place] [address] Nurse Practitioner Certified Clinical Nurse Specialist 10/25/18 Jo-Ann Morrow, PhD [address] [place] [address] Nurse Practitioner Radiation Oncology 10/25/18 Christina Louis MORTGAGE FUNDER [address] [place] [address] Nurse Practitioner Medical Oncology 10/25/18 documented as of this encounter
--- OUTSIDE RECORDS SUMMARY | 2024-04-24 05:56 | XMS_ITS | Encounter Summary ---
Author Organization [facility] [employer] [facility] Address [address] [place] [address] Phone Care Team Providers Care Bandsaw Operator Name Role Phone Erica Rodrigues MD Unavailable Gasper Kaba MD Unavailable [phone] Brandy Aguirre DEPOT AGENT Unavailable [phone] Jo-Ann Morrow PhD Unavailable [phone] Christina Louis AIRPORT REFUELING HANDLER Unavailable [phone] Martin Vazquez MD Primary Care Provider [phone] Encounter Details Date Type Department Care Team (Late st Contact Info) Description 04/07/2019 Orders Only [facility] Scanning, Provider Social History Tobacco Use Types Packs/Day Years Used Date Smoking Tobacco: Never Smokeless Tobacco: Never Alcohol Use Standard Drinks/Week Comments Yes 1 (1 standard drink = 0.6 oz pur e alcohol) social Comments No Sex and Gender Information Value Date Recorded Sex Assigned at Not on file Legal Sex Female 3:42 AM AUTOMOBILE ASSEMBLER Gender Identity Not on file Sexual Orientation Not on file 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 on file Not on file Not on file documented as of this encounter Plan of Treatment Not on file documented as of this encounter Procedures Procedure Name Priority Date/Time Associated Diagnosis Comments SCAN - LABS 04/07/2019 documented in this encounter Results * SCAN - LABS (04/07/2019) us Provider Scanning Final Result documented in this encounter Visit Diagnoses Not on filedocumented in this encounter Care Teams Bandsaw Operator Relationship Specialty Start Date End Date Martin Vazquez MD [address] [place] [address] PCP - General Internal Medicine 01/18/19 01/04/20 Erica Rodrigues MD [address] [place] [address] Radiation Oncologist Radiation Oncology 10/25/18 Gasper Kaba MD [address] [place] [address] Surgeon Surgical Oncology 10/25/18 Brandy Aguirre, DEPOT AGENT [address] [place] [address] Nurse Practitioner Certified Clinical Nurse Specialist 10/25/18 Jo-Ann Morrow, PhD [address] [place] [address] Nurse Practitioner Radiation Oncology 10/25/18 Christina Louis, AIRPORT REFUELING HANDLER [address] [place] [address] Nurse Practitioner Medical Oncology 10/25/18 documented as of this encounter
--- OUTSIDE RECORDS SUMMARY | 2024-04-24 05:56 | XMS_ITS | Encounter Summary ---
Author Organization [facility] Address [address] [place] [address] Phone Care Team Providers Care Mash Filter Operator Name Role Phone Erica Rodrigues MD Unavailable Gasper Kaba MD Unavailable Brandy Aguirre SENIOR PAYROLL SPECIALIST Unavailable [phone] Jo-Ann Morrow PhD Unavailable [phone] Christina Louis INFLATABLE BUILDINGS LAMINATOR Unavailable [phone] Martin Vazquez MD Primary Care Provider [phone] Encounter Details Date Type Department Care Team (Late st Contact Info) Description 06/13/2019 Telephone [facility] Advanced Medicine [address]th [place] [address] [place] [address] Kelvin Long Social History Tobacco Use Types Packs/Day Years Used Date Smoking Tobacco: Never Smokeless Tobacco: Never Alcohol Use Standard Drinks/Week Comments Yes 1 (1 standard drink = 0.6 oz pur e alcohol) social Comments No Sex and Gender Information Value Date Recorded Sex Assigned at Not on file Legal Sex Female 3:42 AM DRYCLEANER Gender Identity Not on file Sexual Orientation Not on file 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 Bcbs Diagnosis/Reason for Appointment: SVT Best Contact Number for Patient: [phone] Who: Primary Care Physician: Dr Taylor Keller Phone: Referring Physician: Self Ref Phone: If Referring MD is not PCP, list specialty: Self Yes No If yes, who, phone, when & where? Have you ever seen a Preparing Box Tender in an office setting? [x] [] 10+ Years ago, [facility]. Patient unsure. IF YES: Are you planning on transferring care to a [facility] MD or are you looking for a second opinion onyour current diagnosis? [] 2nd Opinion (Appts will be CX if records not received 48hrs prior to appt) []Transferring Care to Congenital Patients Only Date and location of last echo: Dr. Valorie Young Patients OnlyHemodialysis or peritoneal dialysis need referral from MD [...] If 'Yes', Schedule first available with Dept: 1700; Team: Oncology Cardiology If yes, when and where? [x] [] Breast Cancer, Surgery, Radiation,Chemotherapy. Have you been hospitalized at [facility] within the last 3 years? [] [x] If yes, did you see a Preparing Box Tender while hospitalized? [] [x] Have you EVER been hospitalized for ANY cardiac issue? [] [x] Have you ever had an EKG? [x] [] [facility], 05/2019 Have you ever had a stress test? [] [] Have you ever had an echo? [x] [] [facility] 05/2019 Have you ever worn a heart monitor at home? [x] [] [facility] 05/2019 Have you ever had a Cardiac Cath? [] [x] Have you ever had a Cardiac Surgery (including ablations, cardioversions, CABG, etc.)? [] [x] Have you ever had a sleep study? [] [x] Do you have a device? If yes what type? (Pacemaker, Defibrillator, Implanted Loop Recorder) [] [x] If yes, where and when was device put in? Chaperone? ([employer], [employer], [place]) FEMALE PTS: Were any of the tests/procedures completed under a different (maiden) name? If yes, what was it? Notes: Appointment Date: 07/15/2019 Type: iov Provider: Dr Ranjit Jackman [facility] [x] Confirm appt date, time, provider and location. [x] Advise pt to arrive 15- 20 min early (30 forSTEFANIE Young). [x] Advise patient to bring medications/list, photo ID and insurance card [x] Advise of New PatientPacket being mailed to them. [x] Inform ref MD Office to fax cardiac related records. LEANER documented in this encounter Plan of Treatment Not on file documented as of this encounter Visit Diagnoses Not on filedocumented in this encounter Care Teams Mash Filter Operator Relationship Specialty Start Date End Date Martin Vazquez MD [address] [address] PCP - General Internal Medicine 01/18/19 01/04/20 Erica Rodrigues MD [address] [facility] [address] [place] [address] Radiation Oncologist Radiation Oncology 10/25/18 Gasper Kaba MD [address] [facility] [address] [place], [place] [id number] Surgeon Surgical Oncology 10/25/18 Brandy Aguirre CNS [address] [facility] [address] [place] [address] Nurse Practitioner Certified Clinical Nurse Specialist 10/25/18 Jo-Ann Morrow, PhD [address] [facility] [address] [place] [address] Nurse Practitioner Radiation Oncology 10/25/18 Christina Louis, JENNI [address] [facility] [address] [place] [address] Nurse Practitioner Medical Oncology 10/25/18 documented as of this encounter
--- OUTSIDE RECORDS SUMMARY | 2024-04-24 05:57 | XMS_ITS | Encounter Summary ---
Author Organization [facility] Healthcare Address [address] [place] [address] Care Team Providers Care Photoengraver Apprentice Name Role Phone Mark Cerna DO Primary Care Provider [phone] Erica Rodrigues MD Unavailable Gasper Kaba MD Unavailable Brandy Aguirre SCALP TREATMENT SPECIALIST Unavailable [phone] Jo-Ann Morrow PhD Unavailable [phone] Christina Louis INTERLOCKING PAVEMENT INSTALLER Unavailable [phone] Encounter Details Date Type Department Care Team (Late st Contact Info) Description 11/11/2018 9:35 AM CDT - 11/11/2018 12:00 PM CDT Surgery [facility] Operating Room [address] [place] [address] Ema Keyes MD [address] [place] [id number] Hysteroscopy Surgery Details Date/Time Status Location OR Service Patient Class Case Cl ass Case Type Trauma Case? 11/11/2018 9:35 AM Posted [facility] OR POD 1 322 Obstetrics / Gynecology Outpatient Elective Panel 1 Procedure LRB Anes Op Region Wound Class Comments Hysteroscopy N/A Monitor Anesthes ia Care Vagina Class II - Clean Contaminated DILATION AND CURETTAGE N/A General Uterus Cl ass II - Clean Contaminated Surgeon Surgeon Role Service Panel Ema Keyes MD Primary Obstetrics / Forestry Aid Technician ecology 1 documented in this encounter Social History Tobacco Use Types Packs/Day Years Used Date Smoking Tobacco: Never Smokeless Tobacco: Never Alcohol Use Standard Drinks/Week Comments No 0 (1 standard drink = 0.6 oz pur e alcohol) Comments No Sex and Gender Information Value Date Recorded Sex Assigned at Not on file 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 Gender Identity Not on file Sexual Orientation Not on file 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 on file Not on file Not on file documented as of this encounter Last Filed Vital Signs Vital Sign Reading Time Taken Comments Blood Pressure 116/74 11/11/2018 12:00 PM CDT Pulse 78 11/11/2018 12:00 PM CDT Temperature 36.2 ??C (97.2 ??F) 11/11/2018 10:20 AM C DT Respiratory Rate 11 11/11/2018 12:00 PM CDT Oxygen Saturation 96% 11/11/2018 12:00 PM CDT Inhaled Oxygen Concentration - - Weight 61.2 kg (135 lb) 11/11/2018 8:04 AM CDT Height 160 cm (5' 3 ) 11/11/2018 8:04 AM CDT Body Mass Index 23.91 11/11/2018 8:04 AM CDT documented in this encounter Discharge Instructions * Discharge Instructions* Jarek Campbell RN - 11/11/2018 10:51 AM CDT 63Discharge Instructions Call Your Doctor If: * You have a fever of 100.4 degrees or higher. * You have heavy vaginal bleeding where you are soaking more than 1 maxi pad each hour. * You are passing large blood clots (larger than an egg). * You have a strong foul odor or discharge coming from your vagina. * You have burning, pain or difficulty urinating. * You have severe vomiting where you are unable to keep down liquids or medications. * You have pain that is not relieved with the medications provided. Diet: * Continue your regular diet. Activity: * No driving for 24 hours or while taking narcotics. * Nothing in the vagina until cleared by your doctor. Medication: *Take over the counter Tylenol or Ibuprofen as needed for pain. Normal changes after surgery: * Vaginal spotting is common * You may notice watery discharge, this is normal. Follow Up: * It???s important to keep your follow up appointment 11/25/[address] Keyes * If you need to make changes, please call the office to reschedule. * Attachments The following attachments cannot be sent through Care Everywhere. * [facility] PATHWAY TO EXCELLENT CARE AFTER SURGERY documented in this encounter Medications at Time of Discharge aspirin 81 mg enteric coated tabletIndications :can't recall why they put her on this Take 1 tablet (81 mg total) by mouth 2 (two) times a week and Thu03/17/2022 FLUoxetine (PROzac) 20 mg capsule Take 1 capsule (20 mg total) by mouth daily. 90 capsule 1 04/29/2018 01/18/2019 folic acid (FOLVITE) 1 mg tablet Take 2 tablets (2,000 mcg total) by mouth daily 180 tablet 3 11/02/2018 02/28/2019 hydroxychloroquin e (PLAQUENIL) 200 mg tablet Take 1 tablet (200 mg total) by mouth daily 30 tablet 11/02/2018 11/29/2018 ibuprofen (ADVIL,MOTRIN) 400 mg tablet Take by mouth. 03/30/2019 lisinopril (PRINIVIL,ZESTRIL ) 20 mg tablet daily. 01/18/2019 melatonin 5 mg tablet TAKE 1 TABLET [...] 2 (two) times a day 60 tablet 11/02/2018 11/29/2018 valACYclovir (VALTREX) 500 mg tablet daily. 01/05/2020 documented as of this encounter Discharge Disposition Disposition Code Departure Means Destination Discharge to home or self care documented in this encounter H&P Notes * Samantha Ozuna MD PhD - 11/11/2018 8:57 AM CDT I have reviewed the H&P, examined the patient, and endorse the findings as written with the following changes/updates: EMB resulted with scant endometrial tissue. . Plan of Care : Based on the above findings, I consider Yesika Manzanares to be an acceptable risk for : Procedure(s): Hysteroscopy POLYPECTOMY DILATION AND CURETTAGE Cosigned by Ema Keyes MD at 11/11/2018 9:33 AM CDT Source Note - Ema Keyes MD - 11/02/2018 10:15 AM CDT BOTTOM LIQUOR ATTENDANT visit note Chief Complaint: Chief Complaint Follow-up Subjective: Yesika Manzanares is a 58 y.o. year old female who presents for follow up. Continues with rust colored discharge. Notes about every other day. No correlation with anything including intercourse, a time of the month, etc. Had tried Replens but didn't really like all the drainage from the vagina after use. Afraid to use E2 cream due to breast CA history. Personal history of breast cancer--Stage I ER/HI pos invasive ductal carcinoma. S/p right lumpectomy/ radiation/chemo. Attempted Arimidex but did not tolerate secondary to severe arthritis and thus this was discontinued. She is currently on MTX, Plaquenil, and sulfasalazine. Menstrual History: No LMP recorded. Patient is postmenopausal. 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 No history fertility medications. She used oral contraceptives in the past. One does progesterone 08/2014. She experienced menopause approximately age 53. Patient Active Problem List Diagnosis ??? Cerebral arterial aneurysm ??? Migraine with aura ??? High risk medication use ??? Rheumatoid arthritis (CMS/HCC) ??? Scleritis and episcleritis of left eye ??? Encounter for follow-up surveillance of breast cancer ??? Cervical high risk HPV (human papillomavirus) test positive ??? Encounter to establish care ??? Diplopia ??? Malignant neoplasm of central portion of right breast in female, estrogen receptor positive (CMS/HCC) ??? Disorder of binocular movement ??? Headache ??? Visual discomfort Past Medical History: Diagnosis Date ??? 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 Financial resource strain: [...] on phone: None Gets together: None Attends synagogue service: None Active member of club or organization: None Attends meetings of clubs or organizations: None Relationship status: None ??? Intimate partner violence: Fear of current or ex partner: None Emotionally abused: None Physically abused: None Forced sexual activity: None Other Topics Concern ??? None Social History Narrative ??? None Allergies: Allergies Allergen Reactions ??? Adhesive Hives ??? Adhesive Tape-Silicones Rash ??? Cyclizine Other (See comments) and Hallucinations Reaction: Urinary retention ??? Codeine Unknown tachycardia tachycardia, tachycardia Medications: Current Outpatient Medications: ??? FLUoxetine (PROzac) 20 mg capsule, Take 1 capsule (20 mg total) by mouth daily., Disp: 90 capsule, Rfl: 1 ??? folic acid (FOLVITE) 1 mg tablet, Take 2 tablets (2,000 mcg total) by mouth daily, Disp: 180 tablet, Rfl: 3 ??? hydroxychloroquine (PLAQUENIL) 200 mg tablet, Take 1 tablet (200 mg total) by mouth daily, Disp: 30 tablet, Rfl: 0 ??? ibuprofen (ADVIL,MOTRIN) 400 mg tablet, Take by mouth., Disp: , Rfl: ??? lisinopril (PRINIVIL,ZESTRIL) 20 mg tablet, daily., Disp: , Rfl: ??? melatonin 5 mg tablet, TAKE 1 TABLET BEDTIME, Disp: , Rfl: ??? methotrexate 2.5 mg tablet, Take 8 tablets (20 mg total) by mouth once a week, Disp: 96 tablet,Rfl: 1 ??? gwnqrixcyier-wsr-RV-ginkgo (ONE DAILY WOMEN 50 PLUS) 400-120 mcg-mg tablet, daily., Disp: , Rfl: ??? sulfaSALAzine EN (AZULFIDINE EN) 500 mg EC tablet, Take 1 tablet (500 mg total) by mouth 2 (two) times a day, Disp: 60 tablet, Rfl: 0 ??? valACYclovir (VALTREX) 500 mg tablet, daily., Disp: , Rfl: Family History Problem Relation Age of Onset ??? Rheum arthritis Sister Family history of rheumatoid arthritis - (Added by TW Conv) ??? Hypertension Mother ??? Other (A-fib) Mother ??? Other (Valve replacements) Mother ??? Hypertension Father ??? Dementia Father ??? Colon cancer Maternal Grandfather ??? Other (Heart problems) Maternal Grandfather ??? Rheum arthritis Sister Review of Systems: Review of Systems Genitourinary: Positive for vaginal bleeding. Low libido Musculoskeletal: Positive for back pain. All other systems reviewed and are negative. Objective: BP 109/75 Pulse 87 Ht 160 cm (5' 3 ) Wt 138 lb (62.6 kg) BMI 24.45 kg/m?? Physical Exam Constitutional: She appears well-developed and well-nourished. Cardiovascular: Normal rate, regular rhythm and normal heart sounds. Pulmonary/Chest: Effort normal. Abdominal: Soft. Normal appearance. She exhibits no mass. There is no tenderness. Genitourinary: Uterus normal. There is no rash, tenderness or lesion on the right labia. There is no rash, tenderness or lesion on the left labia. Cervix exhibits no motion tenderness, no discharge and no friability. Right adnexum displays no mass, no tenderness and no fullness. Left adnexum displays no mass, no tenderness and no fullness. Genitourinary Comments: Moderate amount of yellowish discharge in vault. Moderate atrophy. 11/02/2018 Yesika Manzanares 1960 Procedure: Endometrial biopsy Indication: Postmenopausal bleeding Cervix Prepped with: Betadine Tenaculum Applied: Yes Os dilated: No Uterus: midposition Endocervical curettage performed: No Endometrial biopsy performed with adequate specimen obtained. Complications: None Tenaculum site was noted to be hemostatic after direct pressure Post procedure instructions reviewed and information sheet given Specimen to pathology. Assessment and Plan: Yesika Manzanares is a 58 y.o. female here for follow up: 1. Maintenance: --follow up pap today given continued bleeding--last in January 2018, normal exam today --neg CBE, mammogram [facility] 2 in January 2018 --discussed diet/exercise --DEXA normal from 06/2018 2. Rust colored discharge: --highest on differential would be atrophy related. No concern for infection. EMBx repeated today to be safe. Pap completed for thoroughness. Discussed atrophy as possible cause and will trial olive oil or vaseline. Ema Keyes MD 11/02/2018 * Ema Keyes MD - 11/11/2018 8:50 AM CDT I have reviewed the H&P, examined the patient, and endorse the findings as written. Patient with normal endometrial biopsy but continued bleeding. To be thorough, will plan for hysteroscopy, D+C and possible polypectomy. Prior U/S showed small fibroid but do not suspect it will be submucosal. Plan of Care : Based on the above findings, I consider Yesika Manzanares to be an acceptable risk for : Procedure(s): Hysteroscopy POLYPECTOMY DILATION AND CURETTAGE Source Note - Ema Keyes MD - 11/02/2018 10:15 AM CDT BOTTOM LIQUOR ATTENDANT visit note Chief Complaint: Chief Complaint Follow-up Subjective: Yesika Manzanares is a 58 y.o. year old female who presents for follow up. Continues with rust colored discharge. Notes about every other day. No correlation with anything including intercourse, a time of the month, etc. Had tried Replens but didn't really like all the drainage from the vagina after use. Afraid to use E2 cream due to breast CA history. Personal history of breast cancer--Stage I ER/HI pos invasive ductal carcinoma. S/p right lumpectomy/ radiation/chemo. Attempted Arimidex but did not tolerate secondary to severe arthritis and thus this was discontinued. She is currently on MTX, Plaquenil, and sulfasalazine. Menstrual History: No LMP recorded. Patient is postmenopausal. 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 No history fertility medications. She used oral contraceptives in the past. One does progesterone 08/2014. She experienced menopause approximately age 53. Patient Active Problem List Diagnosis ??? Cerebral arterial aneurysm ??? Migraine with aura ??? High risk medication use ??? Rheumatoid arthritis (CMS/HCC) ??? Scleritis and episcleritis of left eye ??? Encounter for follow-up surveillance of breast cancer ??? Cervical high risk HPV (human papillomavirus) test positive ??? Encounter to establish care ??? Diplopia ??? Malignant neoplasm of central portion of right breast in female, estrogen receptor positive (CMS/HCC) ??? Disorder of binocular movement ??? Headache ??? Visual discomfort Past Medical History: Diagnosis Date ??? 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 Financial resource strain: [...] on phone: None Gets together: None Attends synagogue service: None Active member of club or organization: None Attends meetings of clubs or organizations: None Relationship status: None ??? Intimate partner violence: Fear of current or ex partner: None Emotionally abused: None Physically abused: None Forced sexual activity: None Other Topics Concern ??? None Social History Narrative ??? None Allergies: Allergies Allergen Reactions ??? Adhesive Hives ??? Adhesive Tape-Silicones Rash ??? Cyclizine Other (See comments) and Hallucinations Reaction: Urinary retention ??? Codeine Unknown tachycardia tachycardia, tachycardia Medications: Current Outpatient Medications: ??? FLUoxetine (PROzac) 20 mg capsule, Take 1 capsule (20 mg total) by mouth daily., Disp: 90 capsule, Rfl: 1 ??? folic acid (FOLVITE) 1 mg tablet, Take 2 tablets (2,000 mcg total) by mouth daily, Disp: 180 tablet, Rfl: 3 ??? hydroxychloroquine (PLAQUENIL) 200 mg tablet, Take 1 tablet (200 mg total) by mouth daily, Disp: 30 tablet, Rfl: 0 ??? ibuprofen (ADVIL,MOTRIN) 400 mg tablet, Take by mouth., Disp: , Rfl: ??? lisinopril (PRINIVIL,ZESTRIL) 20 mg tablet, daily., Disp: , Rfl: ??? melatonin 5 mg tablet, TAKE 1 TABLET BEDTIME, Disp: , Rfl: ??? methotrexate 2.5 mg tablet, Take 8 tablets (20 mg total) by mouth once a week, Disp: 96 tablet,Rfl: 1 ??? zuzppvbuzhld-mnl-YP-ginkgo (ONE DAILY WOMEN 50 PLUS) 400-120 mcg-mg tablet, daily., Disp: , Rfl: ??? sulfaSALAzine EN (AZULFIDINE EN) 500 mg EC tablet, Take 1 tablet (500 mg total) by mouth 2 (two) times a day, Disp: 60 tablet, Rfl: 0 ??? valACYclovir (VALTREX) 500 mg tablet, daily., Disp: , Rfl: Family History Problem Relation Age of Onset ??? Rheum arthritis Sister Family history of rheumatoid arthritis - (Added by TW Conv) ??? Hypertension Mother ??? Other (A-fib) Mother ??? Other (Valve replacements) Mother ??? Hypertension Father ??? Dementia Father ??? Colon cancer Maternal Grandfather ??? Other (Heart problems) Maternal Grandfather ??? Rheum arthritis Sister Review of Systems: Review of Systems Genitourinary: Positive for vaginal bleeding. Low libido Musculoskeletal: Positive for back pain. All other systems reviewed and are negative. Objective: BP 109/75 Pulse 87 Ht 160 cm (5' 3 ) Wt 138 lb (62.6 kg) BMI 24.45 kg/m?? Physical Exam Constitutional: She appears well-developed and well-nourished. Cardiovascular: Normal rate, regular rhythm and normal heart sounds. Pulmonary/Chest: Effort normal. Abdominal: Soft. Normal appearance. She exhibits no mass. There is no tenderness. Genitourinary: Uterus normal. There is no rash, tenderness or lesion on the right labia. There is no rash, tenderness or lesion on the left labia. Cervix exhibits no motion tenderness, no discharge and no friability. Right adnexum displays no mass, no tenderness and no fullness. Left adnexum displays no mass, no tenderness and no fullness. Genitourinary Comments: Moderate amount of yellowish discharge in vault. Moderate atrophy. 11/02/2018 Yesika Manzanares 1960 Procedure: Endometrial biopsy Indication: Postmenopausal bleeding Cervix Prepped with: Betadine Tenaculum Applied: Yes Os dilated: No Uterus: midposition Endocervical curettage performed: No Endometrial biopsy performed with adequate specimen obtained. Complications: None Tenaculum site was noted to be hemostatic after direct pressure Post procedure instructions reviewed and information sheet given Specimen to pathology. Assessment and Plan: Yesika Manzanares is a 58 y.o. female here for follow up: 1. Maintenance: --follow up pap today given continued bleeding--last in January 2018, normal exam today --neg CBE, mammogram [facility] 2 in January 2018 --discussed diet/exercise --DEXA normal from 06/2018 2. Rust colored discharge: --highest on differential would be atrophy related. No concern for infection. EMBx repeated today to be safe. Pap completed for thoroughness. Discussed atrophy as possible cause and will trial olive oil or vaseline. Ema Keyes MD 11/02/2018 documented in this encounter Miscellaneous Notes * Op Note - Samantha Ozuna MD PhD - 11/11/2018 9:35 AM CDT Operative Note Attending Surgeon: Ema Keyes MD Surgical Team: Surgeon(s) and Role: * mEa Keyes MD - Primary * Samantha Ozuna MD PhD - Resident - Assisting DATE OF SURGERY : 11/11/2018 Preoperative Diagnosis: Pre-op Diagnosis * Postmenopausal bleeding [N95.0] Postoperative Diagnosis: Post-op Diagnosis * Postmenopausal bleeding [N95.0] Name of Operation: Procedure(s): Hysteroscopy DILATION AND CURETTAGE Indication for Procedure: This is a 58 y.o. who presented with complaint of rust colored discharge. History of breastcancer on Arimidex for a period of time, discontinued due to secondary RA. EMB was normal, however given continued bleeding with history of aromatase inhibitor use, will proceed with hysteroscopy, D&C, possible polypectomy. Operative Findings: On hysteroscopy, normal appearing cervix, normal appearing intrauterine cavity. No polyps or abnormal growth visualized. Description Of Procedure After obtaining the appropriate operative consents, the patient was taken to the operating room, where General was obtained without difficulty and found to be adequate. The patient was placed in the dorsal lithotomy position in [facility] and was then examined under anesthesia, see above. The patient was prepared and draped in the normal sterile fashion. A bivalve speculum was then placed in the vagina and the anterior lip of the cervix was grasped with a single toothed tenaculum. The cervix wasserially dilated to accommodate the hysteroscope and the hysteroscope was inserted. Good visualization of the uterine cavity left ostia was achieved, right ostia was appreciated but somewhat blunted. The hysteroscope was then removed. A Parekh endometrial uterine curette was inserted to the fundus and even pressure was applied to the endometrial surface along the entire length of the uterus from the fundus to the internal cervical os. The curette was passed along the entire surface of the endometrium in the manner described until grittiness was appreciated on all surfaces. After curettage was completed, the single-toothed tenaculum was removed and good hemostasis was noted at the tenaculum site. The sterile speculum was removed. The patient tolerated the procedure welland the patient was taken to the recovery room in stable condition. Estimated Blood Loss: No blood loss documented. Fluid Deficit: 70 mL Specimens: ID Type Source Tests Collected by Time A : endometrial curettings Tissue Endometrial curettings SURGICAL PATHOLOGY Ema Keyes MD11/11/2018 0956 Complications: None Sponge/Instrument/Needle Counts: The sponge, lap and needle counts were correct x 2. Condition on Discharge from the operating room was stable Samantha Ozuna MD PhD Date: 11/11/2018 Time: 10:19 AM The Attending, Ema Keyes MD, was present for the entire procedure. Cosigned by Ema Keyes MD at 11/11/2018 10:45 AM CDT Associated attestation - Ema Keyes MD - 11/11/2018 10:45 AM CDT I was present and actively participated in the entire procedure. * Perioperative Nursing Note - Ida Lopez, RN - 11/11/2018 8:45 AM CDT No BP Right arm. documented in this encounter Plan of Treatment Not on file documented as of this encounter Procedures Procedure Name Priority Date/Time Associated Diagnosis Comments SURGICAL PATHOLOGY Routine 11/11/2018 9: 56 AM CDT Postmenopausal bleeding DILATION AND CURETTAGE 11/11/2018 9:18 AM CDT Postmenopausal bleeding HYSTEROSCOPY DIAGNOSTIC 11/11/2018 9:18 AM CDT Postmenopausal bleeding documented in this encounter Results * Surgical pathology (11/11/2018 9:56 AM CDT) Tissue (Endometrial curettings) 11/11/2018 9:56 AM CDT Narrative PATHOLOGY [facility] - 11/13/2018 11:59 PM CDT EPIC results best viewed via link to PDF [facility] [place] [address] SURGICAL PATHOLOGY REPORT FINAL Patient Name: ?? YESIKA MANZANARES Gender: ??F : ??1960 (Age: 58) Address: ??[address] [place] [id number] Hospital #: ??[id number] Taken:11/11/2018 Received:11/11/2018 Reported: 11/13/2018 Patient Type: [facility] SDS ?? Service: Obstetrics [facility] Location: [facility] Physician(s): ??Ema Keyes M.D. Mark Cerna, DO Diagnosis: A. ??Uterus, endometrium, curettage ? - Scant and superficial fragments of atrophic endometrium with blood - Benign endocervical material present u/11/12/2018 07:52 By this signature, I attest that the above diagnosis is based upon my personal examination of the slides(and/or other material indicated in the diagnosis). Elin Westfall M.D. Report Electronically Reviewed and Signed Out By ??Elin Westfall M.D. 11/13/2018 23:59:35 Microscopic Description and Comment: Microscopic examination substantiates the above cited diagnosis. To Chávez MD, PhD History: The patient is a 58-year-old woman with postmenopausal bleeding. ??Operative procedure: Dilation and curettage with endometrial curettings. Specimen(s) Received: A: Endometrial curettings Gross Description: Received in a single formalin filled container labeled with the patient's name and endometrial curettings are multiple fragments of soft, purple tissue measuring 2.4 x 1.9 x 0.3 cm in aggregate. ??Filtered. ??Labeled A1. ??Jar 0. mr2/11/11/2018 14:04 Kaye Upton MS, PA (ASC By this signature, I attest that the above diagnosis is based upon my personal examination of the slides(and/or other material). The performance characteristics of some immunohistochemical stains, fluorescence in-situ hybridization tests and immunophenotyping by flow cytometry cited in this report (if any) were determined by the Surgical Pathology Department at [facility] as part of an ongoing quality assurance group leader program and in compliance with federally mandated [...] determined by the Surgical Pathology Department of [facility]. ??It has not been cleared or approved by the U. S. Food and Drug Administration. IMAGES AND SCANNED DOCUMENTS, IF INCLUDED, ONLY VIEWABLE IN PDF VERSION OF REPORT Ema Keyes MD LAB PATHOLOGY ORDERABLES Final Result PATHOLOGY [facility] 3rd Floor [place], [place] [phone] documented in this encounter Visit Diagnoses Diagnosis Postmenopausal bleeding- Primary Postmenopausal bleeding documented in this encounter Admitting Diagnoses Diagnosis Postmenopausal bleeding documented in this encounter Administered Medications Inactive Administered Medications - up to 3 most recent administrations Medication Order MAR Action Action Date Dose Rate Site acetaminophen (TYLENOL) tablet 1,000 mg 1,000 mg, oral, Once, On Leny 11/11/18 at 0845, For 1 dose, Pre-Op, Indications: Pre-Emptive AnalgesiaIndications:Pre-Em ptive Analgesia Given 11/11/2018 8:20 AM CDT 1,000 mg Lactated Ringer's (LR) infusion 125 mL/hr, intravenous, Continuous, Starting on Leny 11/11/18 at 0845, Pre-Op, May discontinue when discharge criteria met. Rate/Dose Verify 11/11/2018 9:15 AM CDT New Bag 11/11/2018 8:41 AM CDT 125 mL/hr 125 mL/hr sodium chloride 0.9% flush 0.5-20 mL 0.5-20 mL, intra-catheter, As needed, line care, Starting on Leny 11/11/18 at 0812, Pre-Op, Flush volume based on line type and size. Flush before and after each use. sodium chloride 0.9% infusion As needed, Starting on Leny 11/11/18 at 0950, Intra-Op Given 11/11/2018 9:50 AM CDT 1,000 mL Surgical Site documented in this encounter Historical Medications * This list may reflect changes made after this encounter. aspirin 81 mg enteric coated tabletIndications :can't recall why they put her on this Take 1 tablet (81 mg total) by mouth 2 (two) times a week and Thu03/17/2022 added in this encounter Active and Recently Administered Medications Times are shown in CDT. Scheduled Medication Order 11/09/2018 11/10/2018 11/11/2018 acetaminophen (TYLENOL) tablet 1,000 mg (COMPLETED) 1,000 mg, oral, Once, On Leny 11/11/18 at 0845, For 1 dose, Pre-Op, Indications: Pre-Emptive Analgesia 0820 (Given - Provid er: Ida Lopez RN) dexamethasone (DECADRON) 4 mg/mL injection 4 mg (COMPLETED) 4 mg, intravenous, Administer over 2 Minutes, Once, On Leny 11/11/18 at 0845, For 1 dose, Pre-Op, May administer the 4 mg/mL or 10 mg/mL concentration undiluted over =1 minute. Rapid administration may be associated with perineal irritation (especially with higher doses); consider further dilution and administration by IV intermittent infusion over 5 to 15 minutes., Indications: Prevention of Post-Operative Nausea and Vomiting 0939 (Given - Provid er: Geno Story CRNA) Continuous Medication Order 11/09/2018 11/10/2018 11/11/2018 Lactated Ringer's (LR) infusion 30 mL/hr, intravenous, Continuous, Starting on Leny 11/11/18 at 0845, Pre-Op 0845 (Due) Lactated Ringer's (LR) infusion 125 mL/hr, intravenous, Continuous, Starting on Leny 11/11/18 at 0845, Pre-Op, May discontinue when discharge criteria met. 0841 (New Bag - Prov ider: Ida Lopez RN)0915 (Rate/Dose Verify - Provider: Geno Story CRNA)1009 (Anesthesia Volume Adjustment - Provider: Geno Story CRNA) PRN Medication Order 11/09/2018 11/10/2018 11/11/2018 diphenhydrAMINE (BENADRYL) injection 12.5 mg 12.5 mg, intravenous, Administer over 2 Minutes, Every 15 min PRN, itching, Starting on Leny 11/11/18 at 1105, For 2 doses, Phase I, Max cumulative dose 50 mg., Indications: Itching fentaNYL (SUBLIMAZE) preservative free injection 25 mcg 25 mcg, intravenous, Every 10 min PRN, 1st line for pain, Starting on Leny 11/11/18 at 1105, Phase I, Notify Anesthesiologist if total PACU dose reaches 100 mcg and pain score 5/10 or more., Indications: Pain meperidine (DEMEROL) preservative free injection 12.5 mg 12.5 mg, intravenous, Every 10 min PRN, shivering, Starting on Leny 11/11/18 at 1105, For 2 doses, Phase I, Max cumulative dose 25 mg., Indications: Shivering metoclopramide (REGLAN) injection 10 mg 10 mg, intravenous, Administer over 1 Minutes, Once as needed, nausea, vomiting, Starting on Leny 11/11/18 at 1105, For 1 dose, Phase I, If nausea/vomiting not relieved by ondansetron within 30 minutes or if ondansetron has been given within the last 6 hours. naloxone (NARCAN) 0.4 mg/mL injection 0.04-0.4 mg 0.04-0.4 mg, intravenous, Once as needed, other, excessive sedation/respiratory depression, Starting on Leny 11/11/18 at 1105, For 1 dose, Phase I, Dilute 0.4 [...] Once as needed, nausea, vomiting, Starting on Leny 11/11/18 at 1105, For 1 dose, Phase I, Proceed to metoclopramide if ondansetron has been given within the last 6 hours. sodium chloride 0.9% flush 0.5-20 mL 0.5-20 mL, intra-catheter, As needed, line care, Starting on Leny 11/11/18 at 0812, Pre-Op, Flush volume based on line type and size. Flush before and after each use. sodium chloride 0.9% flush 0.5-20 mL 0.5-20 mL, intra-catheter, As needed, line care, Starting on Leny 11/11/18 at 0812, Pre-Op, Flush volume based on line type and size. Flush before and after each use. sodium chloride 0.9% infusion (CANCELED) As needed, Starting on Leny 11/11/18 at 0950, Intra-Op 0950 (Given - Provid er: Ema Keyes MD) documented in this encounter Orders Medications Ordered That Elmo ht Not Have Been Administered Count Last Ordered Date First Ordered Date dexamethasone (DECADRON) 4 m g/mL injection 4 mg 1 11/11/2018 diphenhydrAMINE (BENADRYL) i njection 12.5 mg 1 11/11/2018 fentaNYL (SUBLIMAZE) preserv ative free injection 25 mcg 1 11/11/2018 Lactated Ringer's (LR) infusion 1 9 meperidine (DEMEROL) preserv ative free injection 12.5 mg 1 11/11/2018 metoclopramide (REGLAN) injection 10 mg 1 0 11/11/2018 naloxone (NARCAN) 0.4 mg/mL injection 0.04-0.4 mg 1 11/11/2018 ondansetron (ZOFRAN) injection 4 mg 1 11/11 sodium chloride 0.9% flush 0.5-20 mL 2 04/2018 documented in this encounter Care Teams Photoengraver Apprentice Relationship Specialty Start Date End Date Mark Cerna DO PCP - General 09/04/16 01/17/19 Erica Rodrigues MD [address] [facility] [address] [place] [address] Radiation Oncologist Radiation Oncology 10/25/18 Gasper Kaba MD [address] [place] [address] Surgeon Surgical Oncology 10/25/18 Brandy Aguirre, SCALP TREATMENT SPECIALIST [address] [facility] [address] [place] [address] Nurse Practitioner Certified Clinical Nurse Specialist 10/25/18 Jo-Ann Morrow, PhD [address] [facility] [address] [place] [address] Nurse Practitioner Radiation Oncology 10/25/18 Christina Louis, INTERLOCKING PAVEMENT INSTALLER [address] [facility] [address] [place] [address] Nurse Practitioner Medical Oncology 10/25/18 documented as of this encounter
--- OUTSIDE RECORDS SUMMARY | 2024-04-24 05:57 | XMS_ITS | Encounter Summary ---
Author Organization [facility] Address [address] [place] [address] Phone Care Team Providers Care Electrodynamicist Name Role Phone Mark Cerna DO Primary Care Provider [phone]- [phone] Reason for Visit * Reason Comments Follow-up 1 yr DX shabnam Encounter Details Date Type Department Care Team (Late st Contact Info) Description 02/09/2018 9:00 AM CDT Office Visit [facility] Surgery [address] [place] [address] 5th Floor [address] [place] [phone] Brandy Aguirre, [facility] [address] [place] [phone] History of breast cancer (Primary Dx) Social History Tobacco Use Types Packs/Day Years Used Date Smoking Tobacco: Never Smokeless Tobacco: Never Alcohol Use Standard Drinks/Week Comments No 0 (1 standard drink = 0.6 oz pur e alcohol) Comments No Sex and Gender Information Value Date Recorded Sex Assigned at Not on file 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 NAME:?Yesika Denney :?1960 DATE:?02/09/18 ?? CHIEF COMPLAINT: Follow-up for right breast cancer. ?? HISTORY OF ??PRESENT ILLNESS: ??I saw Yesika Denney for yearly follow-up in the [facility]. She was seen in 2014 after undergoing imaging at an outside facility that was abnormal. She then underwent image guided biopsy demonstrating breast cancer and on 11/16/2014, she underwent needle directed excisional biopsy with sentinel lymph node biopsy of the right breast for stage I, ER/AR positive, HER 2 negative, invasive ductal carcinoma. She had Oncotype DX recurrence score of 22 and underwent adjuvant chemotherapy of TC as well as accelerated partial breast radiation. She was placed on anastrozole and had significant side effects and ultimately was discontinued. Today she is doing w ell and notes no palpable findings in her breast self-examination. She notes no change in the size of her breast, in the shape of her breast or in the appearance of her breast. Past Medical History: Diagnosis Date ??? Brain aneurysm ??? Breast cancer (CMS/HCC) ??? RA (rheumatoid arthritis) (CMS/HCC) Past Surgical History: Procedure Laterality Date ??? ABLATION ??? BREAST LUMPECTOMY ??? CYST REMOVAL ? ? PORT PLACEMENT CHEST >5 YEARS N/A 01/17/2015 ??? PORT REMOVAL N/A 04/10/2015 ??? THYROID SURGERY Left 1997 Social History Social History ??? Marital status: Spouse name: N/A ??? Number of children: N/A ??? Years of education: N/A Social History Main Topics ??? Smoking status: Never Smoker ??? Smokeless tobacco: Never Used ??? Alcohol use No ??? Drug use: No ??? Sexual activity: Not Asked Other Topics Concern ??? None Social History Narrative ??? None Family History Problem Relation Age of Onset ??? Rheum arthritis Sister Family history of rheumatoid arthritis - (Added by TW Conv) ??? Hypertension Mother ??? Other (A-fib) Mother ??? Other (Valve replacements) Mother ??? Hypertension Father ??? Colon cancer Maternal Grandfather ??? Other (Heart problems) Maternal Grandfather ??? Rheum arthritis Sister Prior to Admission medications Medication Sig Start Date End Date Taking? Authorizing Provider FLUoxetine (PROzac) 20 mg capsule daily. Yes Historical Provider, folic acid (FOLVITE) 1 mg tablet TAKE 2 TABLETS BY MOUTH DAILY 01/03/18 Yes Patricia Martinez MD hydroxychloroquine (PLAQUENIL) 200 mg tablet daily. 12/27/15 Yes Historical Provider, ibuprofen (ADVIL,MOTRIN) 400 mg tablet Take by mouth. Yes Aco Historical Provider, lisinopril (PRINIVIL,ZESTRIL) 20 mg tablet daily. Yes Historical Provider, melatonin 5 mg tablet TAKE 1 TABLET BEDTIME Yes Historical Provider, methotrexate 2.5 mg tablet TAKE 8 TABLETS ONCE WEEKLY 09/07/15 Yes Historical Provider, uyedhhdmsovx-oay-AT-ginkgo (ONE DAILY WOMEN 50 PLUS) 400-120 mcg-mg tablet daily. Yes Historical Provider, sulfaSALAzine EN (AZULFIDINE EN) 500 mg EC tablet TAKE 1 TABLET TWICE A DAY 03/03/16 Yes HistoricalProviderMD valACYclovir (VALTREX) 500 mg tablet daily. Yes Historical Provider, HYDROCHLOROTHIAZIDE ORAL Take by mouth. Unknown dosage Aco Historical Provider, LISINOPRIL ORAL Take by mouth. Aco Historical Provider, predniSONE (DELTASONE) 10 mg tablet Take 1 tablet (10 mg total) by mouth daily. Patient not taking: Reported on 02/09/2018 12/03/17 Patricia Martinez MD Allergies Allergen Reactions ??? Adhesive Hives ??? Adhesive Tape-Silicones Rash ??? Cyclizine Other (See comments) and Hallucinations Reaction: Urinary retention ?? PHYSICAL EXAMINATION: GENERAL: ??Well-developed, well-nourished 57 y.o. female in no apparent distress. EYES: [...] focal neurologic signs; normal gait. ?? IMAGING: ??Personally reviewed her bilateral diagnostic mammograms read as benign by Dr. Zhang. ?? IMPRESSION/RECOMMENDATIONS: ??She will follow up in 1 year when she is due for diagnostic mammograms. I have encouraged her to continue her breast self- examination to notify us if she identifies any changes or problems. ? Brandy Aguirre, ADRIANA, ACNS-BC ? Endocrine &??Oncologic Surgery ? I have reviewed the history, physical, assessment and plan and concur with the findings. ? Gasper ??Lorena Kaba M.D. disulfurizer tender Cosigned by Gasper Kaba MD at 02/10/2018 8:54 AM CDT documented in this encounter Plan of Treatment Not on file documented as of this encounter Visit Diagnoses Diagnosis History of breast cancer- Primary Personal history of malignant neoplasm of breast documented in this encounter Historical Medications * This list may reflect changes made after this encounter. LISINOPRIL ORAL Take by mouth. 02/24/2018 ibuprofen (ADVIL,MOTRIN) 400 mg tablet Take by mouth. 03/30/2019 HYDROCHLOROTHIAZI DE ORAL Take by mouth. Unknown dosage 02/24/2018 added in this encounter Care Teams Electrodynamicist Relationship Specialty Start Date End Date Mark Cerna DO PCP - General 09/04/16 01/17/19 documented as of this encounter
--- OUTSIDE RECORDS SUMMARY | 2024-04-24 05:57 | XMS_ITS | Encounter Summary ---
Author Organization [facility] Address [address] [place] [address] Care Team Providers Care Field Representative Name Role Phone Mark Cerna DO Primary Care Provider [phone]- [phone] Encounter Details Date Type Department Care Team (Late st Contact Info) Description 06/29/2018 Telephone [facility] Advanced Medicine Radiation Oncology [address] [facility] [place] [address] 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
--- OUTSIDE RECORDS SUMMARY | 2024-04-24 05:57 | XMS_ITS | Encounter Summary ---
Author Organization [facility] Address [address] [place] [address] Phone Care Team Providers Care Road Inspector Name Role Phone Mark Cerna DO Primary Care Provider [phone]- [phone] Reason for Visit * Oncology (Routine) - Closed Specialty Diagnoses / Procedures Referred By Niranjan t Referred To Contact Lab Diagnoses Appt Comment: LAB,ROV Procedures ARM DRAW Brandy Hall MD PhD Phone: tel: fax: [facility] Oncology [facility] [facility] 7th [place] [address] [place] [address] Phone: tel: Referral ID Status Reason Start Date Expiration Date V isits Requested Visits Authorized [id number] Closed Specialty Services Required 07/08/2018 04/12/2019 99 [phone] Encounter Details Date Type Department Care Team (Late st Contact Info) Description 07/08/2018 10:30 AM CDT Lab [facility] Oncology [address] [facility] 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 documented in this encounter Plan of Treatment Not on file documented as of this encounter Procedures Procedure Name Priority Date/Time Associated Diagnosis Comments DIFFERENTIAL AUTO Routine 07/08/2018 10: 43 AM CDT History of breast cancer CBC WITH AUTO DIFFERENTIAL Routine 07/08/2018 10:43 AM CDT History of breast cancer CANCER ANTIGEN 15-3 Routine 07/08/2018 1 0:34 AM CDT History of breast cancer COMPREHENSIVE METABOLIC PANEL Routine 07/08/2018 10:34 AM CDT History of breast cancer documented in this encounter Results * Differential, auto (07/08/2018 10:43 AM CDT) Neutrophil abs 2.2 1.8 - 6.6 K/cumm [facility] Comment:Testing performed by : [facility], [address] [place] [phone] Lymphocyte abs 1.2 1.2 - 3.3 K/cumm [facility] Comment:Testing performed by : [facility], [address] [place] [phone] Monocyte abs 0.4 0.2 - 1.2 K/cumm [facility] Comment:Testing performed by : [facility], [address] [place] [phone] Eosinophil abs 0.1 0.0 - 0.5 K/cumm [facility] Comment:Testing performed by : [facility], [address] [place] [phone] Basophil abs 0.0 0.0 - 0.2 K/cumm [facility] Comment:Testing performed by : [facility], [address] [place] [phone] Neutrophil pct 55.7 % [facility] Comment: Interpretive Data Percent cell count reference ranges are not reported, since discordance with absolute values may lead to misinterpretation of CBC data. Current Interpretive Data was last revised on 2017. Testing performed by: [facility], [address] [place] [phone] Lymphocyte pct 30.0 % [facility] Comment: Interpretive Data Percent cell count reference ranges are not reported, since discordance with absolute values may lead to misinterpretation of CBC data. Current Interpretive Data was last revised on 2017. Testing performed by: [facility], [address] [place] [phone] Monocyte pct 11.5 % [facility] Comment:Testing performed by : [facility], [address] [place] [phone] Eosinophil pct 1.8 % [facility] Comment:Testing performed by : [facility], [address] [place] [phone] Basophil pct 1.0 % [facility] Comment:Testing performed by : [facility], [address] [place] [phone] Blood specimen (specimen) 07/08/2018 10:43 AM CDT 07/08/2018 10:45 AM CDT N[facility]ative [facility] - 07/08/2018 10:49 AM CDT us Brandy Calabrese Ma, MD PhD LAB BLOOD ORDERABLES Final Result [facility] Department [place] [address] * (ABNORMAL) CBC with auto differential (07/08/2018 10:43 AM CDT) WBC 3.9 3.8 - 9.8 K/cumm [facility] Comment:Testing performed by : [facility], [address] [place] [address] Hgb 12.6 12.1 - 15.1 g/dL [facility] Comment:Testing performed by : [place] [phone] Hct 38.3 36.1 - 44.3 % [facility] Comment:Testing performed by : [facility], [address] [place] [address] Plt 219 140 - 440 K/cumm [facility] Comment:Testing performed by : [place] [address] MPV 8.0 6.8 - 10.4 fL [facility] Comment:Testing performed by : [place] [address] RBC 3.78(L) 3.90 - 5.00 M/cumm [facility] Comment:Testing performed by : [place] [address] MCV 101.2(H) 80.0 - 97.6 fL [facility] Comment:Testing performed by : [place] [phone] MCH 33.4 26.7 - 33.7 pg [facility] Comment:Testing performed by : [place] [phone] MCHC 33.0 32.7 - 35.5 g/dL [facility] Comment:Testing performed by : [place] [phone] RDW CV 14.0 11.8 - 14.6 % [facility] Comment:Testing performed by : [place] [phone] NRBC abs 0.00 0.00 - 0.01 K/cumm [facility] Comment:Testing performed by : [place] [phone] Blood specimen (specimen) 07/08/2018 10:43 AM CDT 07/08/2018 10:45 AM CDT Narrative [facility] - 07/08/2018 10:49 AM CDT Brandy Calabrese Ma, MD PhD LAB BLOOD ORDERABLES Final Result [facility] Department [place] [address] * (ABNORMAL) Comprehensive metabolic panel (07/08/2018 10:34 AM CDT) Sodium 142 135 - 145 mmol/L [facility] Potassium, pl 4.6 3.3 - 4.9 mmol/L [facility] Chloride 106 97 - 110 mmol/L [facility] CO2 27 22 - 32 mmol/L [facility] Anion gap 9 2 - 15 mmol/L [facility] BUN 14 8 - 25 mg/dL [facility] Creatinine 0.79 0.60 - 1.10 mg/dL [facility] Glucose 88 70 - 199 mg/dL [facility] [...] interpretive data was last revised 2017. Calcium 9.4 8.5 - 10.3 mg/dL [facility] Bilirubin, total <0.2(L) 0.1 - 1.2 mg/dL [facility] Protein, pl 6.8 6.5 - 8.5 g/dL [facility] Albumin 4.6 3.5 - 5.0 g/dL [facility] Alk phos 51 40 - 130 Units/L [facility] ALT 24 7 - 45 Units/L [facility] AST 24 10 - 45 Units/L [facility] Blood specimen (specimen) 07/08/2018 10:34 AM CDT 07/08/2018 10:55 AM CDT Narrative [facility] - 07/08/2018 11:43 AM CDT Brandy Calabrese Ma, MD PhD LAB BLOOD ORDERABLES Final Result Performing Organization Address [facility] Co de Phone Number [facility] Department [place] [address] * Cancer antigen 15-3 (07/08/2018 10:34 AM CDT) CA 15-3 ag 8.3 0.0 - 25.0 units/mL [facility] Blood specimen (specimen) 07/08/2018 10:34 AM CDT 07/08/2018 10:55 AM CDT Narrative [facility] - 07/08/2018 11:36 AM CDT Brandy Calabrese Ma, MD PhD LAB BLOOD ORDERABLES Final Result Performing Organization Address [facility] Co de Phone Number [facility] Department [place] [address] documented in this encounter Visit Diagnoses Diagnosis History of breast cancer Personal history of malignant neoplasm of breast documented in this encounter Care Teams Road Inspector Relationship Specialty Start Date End Date Mark Cerna DO PCP - General 09/04/16 01/17/19 documented as of this encounter
--- OUTSIDE RECORDS SUMMARY | 2024-04-24 05:57 | XMS_ITS | Encounter Summary ---
Author Organization [facility] Address [address] [place] [address] Phone Care Team Providers Care Database Coordinator Name Role Phone Mark Cerna DO Primary Care Provider [phone]- [phone] Reason for Visit * Oncology (Routine) - Closed Specialty Diagnoses / Procedures Referred By Contac t Referred To Contact Medical Oncology / Oncology Diagnoses Appt Comment: LAB,ROV Procedures NEW TO PROVIDER Harpal Calix MD Phone: tel: fax: Christina Louis NP [address] [address] Phone: tel: fax: Referral ID Status Reason Start Date Expiration Date V isits Requested Visits Authorized [id number] Closed Specialty Services Required 07/08/2018 04/12/2019 99 99 Encounter Details Date Type Department Care Team (Late st Contact Info) Description 07/08/2018 11:00 AM CDT Office Visit [facility] Oncology [address] 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 Not on file Not on file Not on file documented as of this encounter Last Filed Vital Signs Vital Sign Reading Time Taken Comments Blood Pressure 98/66 07/08/2018 11:09 AM CDT Pulse 90 07/08/2018 11:09 AM CDT Temperature 36.7 ??C (98.1 ??F) 07/08/2018 11:09 AM C DT Respiratory Rate 18 07/08/2018 11:09 AM CDT Oxygen Saturation 92% 07/08/2018 11:09 AM CDT Inhaled Oxygen Concentration - - Weight 63.3 kg (139 lb 8 oz) 07/08/2018 11:09 AM CDT Height 158 cm (5' 2.21 ) 07/08/2018 11:09 AM CDT Body Mass Index 25.35 07/08/2018 11:09 AM CDT documented in this encounter Patient Instructions * Patient Instructions* Christina Louis, [employer] COMMISSIONER - 07/08/2018 11:00 AM CDT Healthy Behavior Recommendations: Evidence suggests that an active lifestyle and achieving and maintaining an ideal body weight (20-25 BMI) is optimal for health. Experts recommend at least 30 minutes of moderate to vigorous activityper day, 5 days a week. Eat healthy, including plenty of fresh fruits and vegetables daily. Strive to have 2/3 cup of your plate to be vegetables, fruits, whole grains and beans, while 1/3 or less should be an animal product. Choose fish and chicken and limit red meat and processed meats. Limit alcohol intake to one drink per day or less for a woman and two drinks per day for a man Avoid smoking Practice sun safety: Use a sunscreen with an SPF of at least 30 that protects against UVA and UVB rays and is water resistant to protect against skin cancer. Apply sunscreen every two hours or after swimming or excessive sweating. Consider using physical barriers whenever possible (ex. Hats, shirts with sleeves, avoiding direct sun during peak hours). Keep up-to-date on general health screening tests, including cholesterol, blood pressure and glucose (blood sugar) levels. Please have a primary physician for routine care. Get an annual influenza vaccine (flu shot). Get vaccinated with the pneumococcal vaccine if > 64 yrs old, which prevents a type of pneumonia, and re-vaccinated as determined by your healthcare team. Get vaccinated with the shingles vaccine if > 60 yrs old Keep up-to-date on dental and eye exams. Psychological, Emotional, Relational, and Spiritual Aspects of Survivorship: The transition from active treatment to a cancer survivor can be a confusing and emotional time but also one of personal growth. Survivors often have time to process emotionally what having cancer has meant to them after treatment. Fear of recurrence is a feeling commonly experienced by survivors after treatment. Some things that might be helpful during this time include: Talking with other cancer survivors by attending a support group Talking with a professional-either an Chief Medical Physicist or a mental health professional. Your oncology team can assist with connecting you to someone who can help with anxiety, depression, etc. There are many normal responses to living with uncertainty and fear of recurrence, but if you find that it prevents you from enjoying life or you have a lot of fear and feel overwhelmed, we recommendthat you talk with a mental health professional or a [facility] Counselor. Sexual Health: Women should avoid for the first year after completing treatment. Discuss reliable forms of avoiding with your healthcare provider. If you are a woman planning to get in the future, you should see a doctor specializing in fertility in cancer survivors. We can refer you to a specialist. For women, chemotherapy agents may cause vaginal dryness, painful intercourse, reduced sexual desire, and inability to achieve orgasm. Many of these issues are caused by the sudden onset of menopause, which can occur with cancer therapy or from endocrine therapy. If you are experiencing any of these issues, we can refer you to a specialist. Late Effects From Cancer Treatment: It is possible to experience some late effects from any of yourcancer treatments. Whether you experience any of these varies between people and types of treatmentyou have received. Report the following symptoms to your healthcare provider right away: more tired or weaker than usual shortness of breath loss of appetite weight loss chills, fever recurrent infections drenching night sweats painless swelling of a lymph node new pain that does not go away easily bruising, nose bleeds, bleeding from the gums pain when urinating urinary hesitancy (difficulty starting the stream) urinating frequently blood in your urine Any of the following symptoms should be brought to the attention of your provider: A brand new symptom A symptom that does not go away or gets worse Anything you are worried about that might be related to the cancer coming back. Christina Louis NP documented in this encounter Progress Notes * Christina Louis NP - 07/08/2018 11:00 AM CDT Yesika Denney 1960 07/08/2018 Oncology History Patient of Dr. Calix followed [facility]. DIAGNOSIS: Stage I, [id number], invasive ductal carcinoma of the right breast, grade 2, ER positive, IA positive, HER-2 negative. Oncotype DX 22. GENETIC: [employer] extended gene panel 03/2015 showed no significant mutation or variant. ONCOLOGY TREATMENT HISTORY: 1. Pt dx age 54 with a palpable mass in upper central right breast. Right breast biopsy, 10/27/2014showed invasive ductal carcinoma grade 2/3. 2. 11/16/2014 Right lumpectomy with sentinel lymph node biopsy, showed 1.3 cm invasive ductal carcinoma, grade 1, no LVI, negative margins, with intermediate grade DCIS, biomarkers ER/IA positive, HER2 negative for stage IA [id number] disease, per Dr. Saulo Bain. 3. Oncotype [...] OF PRESENT ILLNESS Yesika Denney is a 57 y.o. female with a history of stage I breast ER positive cancer returningfor routine oncologic follow-up. She was intolerant to adjuvant endocrine treatment. She remains onobservation. She was last seen by Dr. Calix in 06/25/2017. She denies any changes in her health over the past year she continues to follow with rheumatology for history of rheumatoid arthritis which apparently is under good control at this time. She denies fever, headaches, night sweats, shortness of breath, cough, chest pain, abdominal issues, changes in her bowel or bladder function or localized areas of pain. She remains active and tries exercise on a regular basis. Past Medical History: Diagnosis Date ??? Benign [...] Outpatient Medications Medication Sig Dispense Refill ??? FLUoxetine (PROzac) 20 mg capsule Take 1 capsule (20 mg total) by mouth daily. 90 capsule 1 ??? folic acid (FOLVITE) 1 mg tablet TAKE 2 TABLETS BY MOUTH DAILY 180 tablet 3 ??? hydroxychloroquine (PLAQUENIL) 200 mg tablet TAKE 1 TABLET BY MOUTH DAILY WITH FOOD 90 tablet 0 ??? ibuprofen (ADVIL,MOTRIN) 400 mg tablet Take by mouth. ??? lisinopril (PRINIVIL,ZESTRIL) 20 mg tablet daily. ??? melatonin 5 mg tablet TAKE 1 TABLET BEDTIME ??? methotrexate 2.5 mg tablet Take 8 tablets (20 mg total) by mouth once a week. 96 tablet 1 ??? nnxydsxysaxg-fcc-XQ-ginkgo (ONE DAILY WOMEN 50 PLUS) 400-120 mcg-mg tablet daily. ??? predniSONE (DELTASONE) 10 mg tablet Take 1 tablet (10 mg total) by mouth daily. (Patient takingdifferently: Take 10 mg by mouth as needed. ) 30 tablet 2 ??? sulfaSALAzine EN (AZULFIDINE EN) 500 mg EC tablet TAKE 1 TABLET BY MOUTH TWICE A DAY 180 tablet0 ??? valACYclovir (VALTREX) 500 mg tablet daily. No current facility-administered medications for this visit. Social History Socioeconomic History ??? Marital status: Spouse name: Not on file ??? Number of children: 3 ??? Years of education: Not on file ??? Highest education level: Not on file Occupational History ??? 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 Financial resource strain: Not on file ??? Food insecurity: Worry: Not on file Inability: Not on file ??? Transportation needs: Medical: Not on file Non-medical: Not on file Tobacco Use ??? Smoking status: Never Smoker ??? Smokeless tobacco: Never Used Substance and Sexual Activity ??? Alcohol use: No ??? Drug use: No ??? Sexual activity: Not Currently Lifestyle ??? Physical activity: Days per week: Not on file Minutes per session: Not on file ??? Stress: Not on file Relationships ??? Social connections: Talks on phone: Not on file Gets together: Not on file Attends mormon service: Not on file Active member of club or organization: Not on file Attends meetings of clubs or organizations: Not on file Relationship status: Not on file ??? Intimate partner violence: Fear of current or ex partner: Not on file Emotionally abused: Not on file Physically abused: Not on file Forced sexual activity: Not on file Other Topics Concern ??? Not on file Social History Narrative ??? Not on file Social History Substance and Sexual Activity Alcohol Use No Substance and Sexual Activity Drug Use No Social History Tobacco Use Smoking Status Never Smoker Smokeless Tobacco Never Used Cancer-related family history includes Colon cancer in her maternal grandfather. Family History Problem Relation Age of Onset ??? Rheum arthritis Sister Family history of rheumatoid arthritis - (Added by TW Conv) ??? Hypertension Mother ??? Other (A-fib) Mother ??? Other (Valve replacements) Mother ??? Hypertension Father ??? Dementia Father ??? Colon cancer Maternal Grandfather ??? Other (Heart problems) Maternal Grandfather ??? Rheum arthritis Sister No LMP recorded. Patient is postmenopausal. 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 No history fertility medications. She used oral contraceptives in the past. One does progesterone 08/2014. She experienced menopause approximately age 53. REVIEW OF SYSTEMS: A complete review of systems was performed, and was negative other than those mentioned above in the HPI. All other review of systems negative. VITALS SIGNS: Vitals BP 98/66 (BP Location: Left arm) Pulse 90 Temp 36.7 ??C (98.1 ??F) (Oral) Resp 18 Ht 158 cm (5' 2.21 ) Wt 63.3 kg (139 lb 8 oz) SpO2 92% BMI 25.35 kg/m?? PHYSICAL EXAMINATION: Performance Status: ECOG 0. Physical Exam Constitutional: She is oriented to person, place, and time. She appears well- developed and well-nourished. HENT: Head: Normocephalic and atraumatic. Eyes: Pupils are equal, round, and reactive to light. EOM are normal. Neck: Normal range of motion. Neck supple. No thyromegaly present. Cardiovascular: Normal rate, regular rhythm and normal heart sounds. Exam reveals no friction rub. No murmur heard. Pulmonary/Chest: Effort normal and breath sounds normal. No respiratory distress. Breast: Right breast with well-healed surgical incision without palpable abnormality, skin changes,nipple discharge, axillary adenopathy. Left breast without palpable abnormality. There is no cervical, supraclavicular infraclavicular adenopathy. Abdominal: Soft. Bowel sounds are normal. She exhibits no mass. Musculoskeletal: Normal range of motion. She exhibits no edema, tenderness or deformity. Neurological: She is alert and oriented to person, place, and time. Coordination normal. Skin: Skin is warm and dry. Psychiatric: She has a normal mood and affect. LABORATORY: Recent Results (from the past 24 hour(s)) Cancer antigen 15-3 Collection Time: 07/08/18 10:34 AM Result Value Ref Range CA 15-3 ag 8.3 0.0 - 25.0 units/mL Comprehensive metabolic panel Collection Time: 07/08/18 10:34 AM Result Value Ref Range Sodium 142 135 - 145 mmol/L Potassium, pl 4.6 3.3 - 4.9 mmol/L Chloride 106 97 - 110 mmol/L CO2 27 22 - 32 mmol/L Anion Gap 9 2 - 15 mmol/L BUN 14 8 - 25 mg/dL Creatinine 0.79 0.60 - 1.10 mg/dL Glucose 88 70 - 199 mg/dL Calcium 9.4 8.5 - 10.3 mg/dL Bilirubin, total <0.2 (L) 0.1 - 1.2 mg/dL Protein, pl 6.8 6.5 - 8.5 g/dL Albumin 4.6 3.5 - 5.0 g/dL Alk phos 51 40 - 130 Units/L ALT 24 7 - 45 Units/L AST 24 10 - 45 Units/L CBC with auto differential Collection Time: 07/08/18 10:43 AM Result Value Ref Range WBC 3.9 3.8 - 9.8 K/cumm Hgb 12.6 12.1 - 15.1 g/dL Hct 38.3 36.1 - 44.3 % Plt 219 140 - 440 K/cumm MPV 8.0 6.8 - 10.4 fL RBC 3.78 (L) 3.90 - 5.00 M/cumm MCV 101.2 (H) 80.0 - 97.6 fL MCH 33.4 26.7 - 33.7 pg MCHC 33.0 32.7 - 35.5 g/dL RDW CV 14.0 11.8 - 14.6 % NRBC Abs 0.00 0.00 - 0.01 K/cumm Differential, auto Collection Time: 07/08/18 10:43 AM Result Value Ref Range Neutrophil absolute 2.2 1.8 - 6.6 K/cumm Lymphocytes absolute 1.2 1.2 - 3.3 K/cumm Monocyte absolute 0.4 0.2 - 1.2 K/cumm Eosinophils absolute 0.1 0.0 - 0.5 K/cumm Basophils, abs 0.0 0.0 - 0.2 K/cumm Neutrophils 55.7 % Lymphocytes 30.0 % Monocytes 11.5 % Eosinophils 1.8 % Basophils 1.0 % RADIOLOGY: No results found. HEALTH MAINTENANCE and RISK PREVENTION: 1. BREAST HEALTH: Bilateral diagnostic mammogram 02/09/2018 BI-RADS 2 benign finding. Repeat mammogram due 01/18/2019. Patient was instructed to continue breast self exams and to report any abnormality. 2. BONE HEALTH: DEXA 07/07/2018 She was encouraged to continue calcium and vitamin D supplements. We discussed the benefits of routine weight bearing exercise. 3. COLONOSCOPY: At age 50 was normal with recommended 10 year follow-up. 4. 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 Keyes. 5. WEIGHT MANAGEMENT, DIET AND EXERCISE: We discussed the benefits of maintaining an ideal body weight, not only for breast cancer risk reduction, but for stroke, diabetes, hypertension and heart disease prevention. We discussed the benefits of eating a healthy diet with plenty of fresh fruits, vegetables, whole grains, and to try to limit excess carbs, fats, and sugars. 6. History of brain aneurysm: Brain MRI obtained on 03/29/2018 due to double vision, but followed by Dr. Chaudhari every 3 years. ASSESSMENT AND PLAN: In summary, Yesika Denney is a 57 y.o. female with a history of stage I, ER positive cancer of the right breast status post breast conserving treatment in 2014. She was intolerant to adjuvant Arimidex due to an exacerbation of rheumatoid arthritis. She will continue to follow with Dr. Martinez in R heumatology. She will continue surveillance follow-up for history of breast cancer. She will be duefor her follow-up mammogram on 01/18/2019. She will return in 1 year for re-evaluation. She was given contact numbers to call with any questions or concerns. Christina Louis NP documented in this encounter Plan of Treatment Not on file documented as of this encounter Visit Diagnoses Diagnosis Malignant neoplasm of central portion of right breast in female, estrogen receptor positive (HCC)- Primary documented in this encounter Care Teams Database Coordinator Relationship Specialty Start Date End Date Mark Cerna DO PCP - General 09/04/16 01/17/19 documented as of this encounter
--- OUTSIDE RECORDS SUMMARY | 2024-04-24 05:57 | XMS_ITS | Encounter Summary ---
Author Organization [facility] Address [address] [place] [address] Care Team Providers Care Sr. Social Media & Mobile Manager Name Role Phone Mark Cerna DO Primary Care Provider [phone]- [phone] Reason for Referral * Diagnostic Imaging (Routine) - Closed Specialty Diagnoses / Procedures Referred By Niranjan farrell Referred To Contact Diagnoses History of breast cancer Procedures Diagnostic Mammogram Bilateral W Brandy Vyas CNS Phone: tel: fax: [address] [address] Referral ID Status Reason Start Date Expiration Date Visits Re quested Visits Authorized [id number] Closed 01/13/2018 07/25/2019 1 1 Reason for Visit * Diagnostic Imaging (Routine) - Closed Specialty Diagnoses / Procedures Referred By Niranjan farrell Referred To Contact Diagnoses History of breast cancer Procedures Diagnostic Mammogram Bilateral W Brandy Vyas [facility] Phone: tel: fax: [address] [address] Referral ID Status Reason Start Date Expiration Date Visits Re quested Visits Authorized [id number] Closed 01/13/2018 07/25/2019 1 1 Encounter Details Date Type Department Care Team (Latest Contact Info) Description 02/09/2018 9:39 AM CDT - 02/09/2018 11:59 PM CDT Hospital Encounter [facility] [address] [place] [address] Brandy Aguirre, [facility] [address] [address] History of breast cancer Discharge Disposition: Discharge to home or self care Social History Tobacco Use Types Packs/Day Years Used Date Smoking Tobacco: Never Smokeless Tobacco: Never Alcohol Use Standard Drinks/Week Comments No 0 (1 standard drink = 0.6 oz pur e alcohol) Comments No Sex and Gender Information Value Date Recorded Sex Assigned at Not on file 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 04/29/2018 folic acid (FOLVITE) 1 mg tablet TAKE 2 TABLETS BY MOUTH DAILY 180 tablet 3 01/03/2018 11/02/2018 HYDROCHLOROTHIAZI DE ORAL Take by mouth. Unknown dosage 02/24/2018 hydroxychloroquin e (PLAQUENIL) 200 mg tablet daily. 12/27/2015 06/10/2018 ibuprofen (ADVIL,MOTRIN) 400 mg tablet Take by mouth. 03/30/2019 lisinopril (PRINIVIL,ZESTRIL ) 20 mg tablet daily. 01/18/2019 LISINOPRIL ORAL Take by mouth. 02/24/2018 melatonin 5 mg tablet TAKE 1 TABLET BEDTIME 03/30/2019 methotrexate 2.5 mg tablet TAKE 8 TABLETS ONCE WEEKLY 09/07/2015 02/19/2018 multivitamin-min- FA-ginkgo (ONE DAILY WOMEN 50 PLUS) 400-120 mcg-mg tablet daily. 03/30/2019 predniSONE (DELTASONE) 10 mg tabletIndications :Anti-inflammator y Take 1 tablet (10 mg total) by mouth daily. 30 tablet 2 12/03/2017 08/16/2018 sulfaSALAzine EN (AZULFIDINE EN) 500 mg EC tablet TAKE 1 TABLET TWICE A DAY 03/03/2016 06/10/2018 valACYclovir (VALTREX) 500 mg tablet daily. 01/05/2020 documented as of this encounter Discharge Disposition Disposition Code Departure Means Destination Discharge to home or self care documented in this encounter Plan of Treatment Not on file documented as of this encounter Procedures Procedure Name Priority Date/Time Associated Diagnosis Comments DIAGNOSTIC MAMMOGRAM BILATERAL W MARCELO Schedule Routine, Read Routine (OP Routine) 02/09/2018 10:15 AM CDT History of breast cancer documented in this encounter Results * Diagnostic Mammogram Bilateral W Marcelo (02/09/2018 10:15 AM CDT) Anatomical Region Laterality Modality Breast Bilateral Mammography 02/09/2018 10:2 8 AM CDT Impressions 02/09/2018 11:26 AM CDT Stable changes of RIGHT breast conservation therapy. ??No suspicious abnormality in either breast. OVERALL FINAL ASSESSMENT: BI-RADS Category 2: Benign. Annual diagnostic mammography is recommended. Dictated by: Jodie Rowan M.D. Electronically signed by: Esme Zhang M.D. Narrative 02/09/2018 11:26 AM CDT EXAMINATION: BILATERAL DIGITAL DIAGNOSTIC MAMMOGRAM INCLUDING CAD AND BILATERAL DIGITAL BREAST TOMOSYNTHESIS HISTORY: 57-year-old woman with a personal history of RIGHT breast cancer status post breast conservation therapy in 2014. COMPARISON: Prior mammograms dating back to 2014. TECHNIQUE: ??Full field digital mammographic views of BOTH breasts were performed, including computer aided detection (CAD) and BILATERAL digital breast tomosynthesis (DBT). BREAST PARENCHYMAL COMPOSITION: The breasts are heterogenously dense, which may obscure small masses. MAMMOGRAM FINDINGS: There is no new suspicious abnormality within EITHER breast; the appearance of BOTH breasts is stable compared to prior exams. ??There are stable changes of breast conservation therapy in the RIGHT breast. Procedure Note Esme Zhang MD - 02/09/2018 EXAMINATION: BILATERAL DIGITAL DIAGNOSTIC MAMMOGRAM INCLUDING CAD AND BILATERAL DIGITAL BREAST TOMOSYNTHESIS HISTORY: 57-year-old woman with a personal history of RIGHT breast cancer status post breast conservation therapy in 2014. COMPARISON: Prior mammograms dating back to 2014. TECHNIQUE: Full field digital mammographic views of BOTH breasts were performed, including computer aided detection (CAD) and BILATERAL digital breast tomosynthesis (DBT). BREAST PARENCHYMAL COMPOSITION: The breasts are heterogenously dense, which may obscure small masses. MAMMOGRAM FINDINGS: There is no new suspicious abnormality within EITHER breast; the appearance of BOTH breasts is stable compared to prior exams. There are stable changes of breast conservation therapy in the RIGHT breast. IMPRESSION: Stable changes of RIGHT breast conservation therapy. No suspicious abnormality in either breast. OVERALL FINAL ASSESSMENT: BI-RADS Category 2: Benign. Annual diagnostic mammography is recommended. Dictated by: Jodie Rowan M.D. Electronically signed by: Esme Zhang M.D. Brandy Aguirre ANIMAL CAREGIVER IMG MAMMO PROCEDURES Final R esult documented in this encounter Visit Diagnoses Diagnosis History of breast cancer Personal history of malignant neoplasm of breast documented in this encounter Care Teams Sr. Social Media & Mobile Manager Relationship Specialty Start Date End Date Mark Cerna DO PCP - General 09/04/16 01/17/19 documented as of this encounter
--- OUTSIDE RECORDS SUMMARY | 2024-04-24 05:57 | XMS_ITS | Encounter Summary ---
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
--- OUTSIDE RECORDS SUMMARY | 2024-04-24 05:57 | XMS_ITS | Encounter Summary ---
Author Organization [facility] Address [address] [place] [address] Phone Care Team Providers Care Bank Advisor Name Role Phone Mark Cerna DO Primary Care Provider [phone]- [phone] Encounter Details Date Type Department Care Team (Late st Contact Info) Description 12/03/2017 12:30 PM CDT Office Visit [facility] Rheumatology [address] [facility] Advanced Medicine 5th [place] [address] [place] [address] Patricia Martinez MD [address] [facility] [address] [place] [address] Rheumatoid 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 (CMS/HCC) (Primary Dx); Scleritis and episcleritis of left eye; High risk medication use Social History Tobacco Use Types Packs/Day Years Used Date Smoking Tobacco: Never Smokeless Tobacco: Never Comments Unknown Sex and Gender Information Value Date Recorded Sex Assigned at Not on file Legal Sex 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 Gender Identity Not on file Sexual Orientation Not on file documented as of this encounter Last Filed Vital Signs Vital Sign Reading Time Taken Comments Blood Pressure 149/90 12/03/2017 12:27 PM CDT Pulse 71 12/03/2017 12:27 PM CDT Temperature 36.8 ??C (98.2 ??F) 12/03/2017 12:27 PM C DT Respiratory Rate - - Oxygen Saturation - - Inhaled Oxygen Concentration - - Weight 61.7 kg (136 lb) 12/03/2017 12:27 PM CDT Height 160 cm (5' 2.99 ) 12/03/2017 12:27 PM CDT Body Mass Index 24.1 12/03/2017 12:27 PM CDT documented in this encounter Ordered Prescriptions Prescription Sig Dispense Quantity Refills Last Filled Start Date End Date predniSONE (DELTASONE) 10 mg tabletIndications: Anti-inflammatory Take 1 tablet (10 mg total) by mouth daily. 30 tablet 2 12/03/2017 08/16/2018 predniSONE (DELTASONE) 10 mg tabletIndications: Anti-inflammatory Take 1 tablet (10 mg total) by mouth daily. 30 tablet 2 12/03/2017 12/03/2017 documented in this encounter Progress Notes * Patricia Martinez MD - 12/03/2017 12:30 PM CDT Subjective Patient is a 57 y.o. female with chief complaint of scleritis in her left eye. 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 She began to notice photophobia on Thursday and wasseen on Thursday. Her patch washer placed her on ibuprofen. She is noting only mild improvement. Her rheumatoid arthritis is currently managed on triple DMARD therapy which had been controlling her quite well. Since the last visit, patient reports Am stiffness of 0 min. Pain is reported in the following joints: Ring finger PIP joint The patient has not experienced any interval infections. Interval health history is only this scleritis. Currently the patient reports activities of exercising regularly. Patient Active Problem List Diagnosis ??? Cerebral arterial aneurysm ??? Migraine with aura ??? Estrogen receptor positive status (ER+) ??? High risk medication use ??? Rheumatoid arthritis (CMS/HCC) ??? Scleritis and episcleritis of left eye Past Surgical History: Procedure Laterality Date ? ? PORT PLACEMENT CHEST >5 YEARS N/A 01/17/2015 ??? PORT REMOVAL N/A 04/10/2015 There is no immunization history on file for this patient. Allergies Allergen Reactions ??? Adhesive Hives ??? Adhesive Tape-Silicones Rash ??? Cyclizine Other (See comments) and Hallucinations Reaction: Urinary retention ??? Iodinated Contrast- Oral And Iv Dye Unknown Social History Substance Use Topics ??? Smoking status: Never Smoker ??? Smokeless tobacco: Never Used ??? Alcohol use Not on file .[facility] Family History Problem Relation Age of Onset ??? Rheum arthritis Sister Family history of rheumatoid arthritis - (Added by TW Conv) ??? Hypertension Mother ??? Other (A-fib) Mother ??? Other (Valve replacements) Mother ??? Hypertension Father ??? Other (Heart problems) Maternal Grandfather ??? Rheum arthritis Sister Review of Systems: All other systems are negative Vitals BP 149/90 Pulse 71 Temp 36.8 ??C (98.2 ??F) Ht 160 cm (5' 2.99 ) Wt 61.7 kg (136 lb) BMI 24.10 kg/m?? Objective Physical Exam: Pleasant white female in no apparent distress Skin without rash Both eyes have mildly injected conjunctiva without exudate Musculoskeletal examination reveals no tenderness or swelling except for in the ring finger PIP joint which is only 1+ swollen. Assessment /Plan Problem List Items Addressed This Visit Rheumatology Problems Rheumatoid arthritis (CMS/HCC) - Primary Clinically this has been well controlled and we will reassess inflammatory markers and monitoring laboratories. However the scleritis is likely an extra- articular feature. We will check an HLA B27 since she is seronegative. I would like for her to see 1 of our ophthalmologists. Given the severity of her pain, I recommend that she start on 10 mg of prednisone for the next week and then taper to 5 mg if she has complete symptom relief at the end of that week. Relevant Orders HLA-B27 antigen CBC with auto differential (Completed) Comprehensive metabolic panel (Completed) CRP (acute phase) Erythrocyte sedimentation rate Vectra(R) DA Disease Activity Scleritis and episcleritis of left eye I will place her on low-dose prednisone while awaiting her lab results and set her up with ophthalmologic consultation Relevant Orders HLA-B27 antigen Vectra(R) DA Disease Activity Other High risk medication use documented in this encounter Miscellaneous Notes * Assessment & Plan Note - Patricia Martinez MD - 12/03/2017 5:33 PM CDT Associated Problem(s): Scleritis and episcleritis of left eye I will place her on low-dose prednisone while awaiting her lab results and set her up with ophthalmologic consultation * Assessment & Plan Note - Patricia Martinez MD - 12/03/2017 5:32 PM CDT Associated Problem(s): Rheumatoid arthritis with negative rheumatoid factor (HCC) Clinically this has been well controlled and we will reassess inflammatory markers and monitoring laboratories. However the scleritis is likely an extra- articular feature. We will check an HLA B27 since she is seronegative. I would like for her to see 1 of our ophthalmologists. Given the severity of her pain, I recommend that she start on 10 mg of prednisone for the next week and then taper to 5 mg if she has complete symptom relief at the end of that week. documented in this encounter Plan of Treatment Scheduled Orders Name Type Priority Associated Diagnoses Orde r Schedule Vectra(R) DA Disease Activity Lab Routine Rheumatoid 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 (CMS/HCC) Scleritis and episcleritis of left eye Expected: 12/03/2017, Expires: 12/03/2018 documented as of this encounter Results * Erythrocyte sedimentation rate (12/03/2017 5:08 PM CDT) [facility] Erythrocyte sedimentation rate 6 1 - 30 mm/hr [facility] Blood specimen (specimen) 12/03/2017 5:08 PM CDT 12/03/2017 5:28 PM CDT Narrative [facility] - 12/03/2017 6:06 PM CDT us Patricia Martinez MD LAB BLOOD ORDERABLES Final R esult [facility] Department [place] [address] * CRP (acute phase) (12/03/2017 5:08 PM CDT) [facility] CRP 0.8 <=10.0 mg/L [facility] Blood specimen (specimen) 12/03/2017 5:08 PM CDT 12/03/2017 5:28 PM CDT Narrative [facility] - 12/03/2017 6:04 PM CDT us Patricia Martinez MD LAB BLOOD ORDERABLES Final R esult [facility] Department [place] [address] * Comprehensive metabolic panel (12/03/2017 1:28 PM CDT) Pathologist [facility] Total Protein 6.9 6.1 - 8.4 g/dL [facility] Albumin 4.6 3.5 - 5.2 g/dL [facility] Calcium 9.2 8.6 - 10.3 mg/dL [facility] BUN 13 7 - 23 mg/dL [facility] Total Bilirubin 0.22 0.20 - 1.40 mg/dL [facility] Alk Phos, Total 53 35 - 129 IU/L [facility] AST (SGOT) 23 11 - 47 IU/L [facility] ALT (SGPT) 17 6 - 53 IU/L [facility] Creatinine 0.65 0.60 - 1.10 mg/dL [facility] Sodium 140 135 - 145 mmol/L [facility] Potassium 4.1 3.3 - 5.1 mmol/L [facility] Chloride 102 95 - 107 mmol/L [facility] CO2 Content 25 21 - 29 mmol/L [facility] Glucose 82 64 - 99 mg/dL [facility] Comment: NONFASTING GLUCOSE RANGE = 64-199 mg/dL FASTING GLUCOSE 64 - 99 = NORMAL FASTING GLUCOSE 100 - 125 = IMPAIRED FASTING GLUCOSE FASTING GLUCOSE >=126 = PROVISIONAL DIAGNOSIS OF DIABETES Blood specimen (specimen) 12/03/2017 1:28 PM CDT 12/03/2017 2:28 PM CDT us Patricia Martinez MD LAB BLOOD ORDERABLES Final R esult [facility] * (ABNORMAL) CBC with auto differential (12/03/2017 1:28 PM CDT) White Blood Count 4.1 3.6 - 11.2 K/uL [facility] RBC 3.81 3.63 - 4.92 M/uL [facility] Hemoglobin 13.1 11.9 - 15.5 g/dL [facility] Hematocrit 39.5 36.1 - 44.3 % [facility] MCV 103.6(H) 80.0 - 97.6 fL [facility] MCH 34.2(H) 26.7 - 33.7 pg [facility] MCHC 33.0 32.7 - 35.5 g/dL [facility] RBC Dist Width 13.6 12.3 - 17.0 % [facility] Platelet Count 200 140 - 440 K/uL [facility] MPV 9.1 6.8 - 10.4 fL [facility] Neutrophils % 61.8 38.7 - 74.5 % [facility] Lymphocyte % 26.3 20.0 - 54.3 % [facility] Monocytes % 10.2 4.3 - 13.5 % [facility] Eosinophils % 1.1 0.0 - 6.0 % [facility] Basophil % 0.6 0.0 - 3.0 % [facility] Absolute Neutrophil 2.5 1.8 - 6.6 K/uL [facility] Absolute Lymphocyte 1.1 0.8 - 3.3 K/uL [facility] Absolute Monocyte 0.4 0.2 - 1.2 K/uL [facility] Absolute Eosinophil 0.0 0.0 - 0.5 K/uL [facility] Absolute Basophil 0.0 0.0 - 0.2 K/uL [facility] Nucleated RBC % 0.0 0.0 - 0.4 /100 WBC [facility] Blood specimen (specimen) 12/03/2017 1:28 PM CDT 12/03/2017 2:28 PM CDT us Patricia Martinez MD LAB BLOOD ORDERABLES Final R esult [facility] documented in this encounter Visit Diagnoses Diagnosis Rheumatoid 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 (CMS/HCC) (HCC)- Primary Scleritis and episcleritis of left eye High risk medication use Rheumatoid 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 (CMS/HCC) (HCC) Scleritis and episcleritis of left eye documented in this encounter Discontinued Medications Medication Sig Discontinue Reason Start Date End Da te predniSONE (DELTASONE) 10 mg tabletIndications:Anti-i nflammatory Take 1 tablet (10 mg total) by mouth daily. Reorder 12/03/2017 12/03/2017 documented as of this encounter Orders Lab Orders Without Results Count Last Ordered D ate First Ordered Date HLA-B27 ANTIGEN 1 12/03/2017 documented in this encounter Care Teams Bank Advisor Relationship Specialty Start Date End Date Mark Cerna DO PCP - General 09/04/16 01/17/19 documented as of this encounter
--- OUTSIDE RECORDS SUMMARY | 2024-04-24 05:57 | XMS_ITS | Encounter Summary ---
Author Organization [facility] Healthcare Address [address] [place] [address] Care Team Providers Care Document Image Technician Name Role Phone Mark Cerna DO Primary Care Provider [phone]- [phone] Encounter Details Date Type Department Care Team (Late st Contact Info) Description 12/03/2017 5:10 PM CDT Lab [address] [address] Rheumatoid 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 (CMS/HCC); Scleritis and episcleritis of left eye Social History Tobacco Use Types Packs/Day Years Used Date Smoking Tobacco: Never Smokeless Tobacco: Never Comments Unknown Sex and Gender Information Value Date Recorded Sex Assigned at Not on file 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 Gender Identity Not on file Sexual Orientation Not on file documented as of this encounter Plan of Treatment Not on file documented as of this encounter Procedures Procedure Name Priority Date/Time Associated Diagnosis Comments ERYTHROCYTE SEDIMENTATION RATE Routine 12/03/2017 5:08 PM CDT Rheumatoid 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 (CMS/HCC) CRP (ACUTE PHASE) Routine 12/03/2017 5:0 8 PM CDT Rheumatoid 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 (CMS/HCC) documented in this encounter Results * Erythrocyte sedimentation rate (12/03/2017 5:08 PM CDT) Erythrocyte sedimentation rate 6 1 - 30 mm/hr [facility] Blood specimen (specimen) 12/03/2017 5:08 PM CDT 12/03/2017 5:28 PM CDT Narrative [facility] - 12/03/2017 6:06 PM CDT Patricia Martinez MD LAB BLOOD ORDERABLES Final R esult [facility] [place] [address] * CRP (acute phase) (12/03/2017 5:08 PM CDT) CRP 0.8 <=10.0 mg/L [facility] Blood specimen (specimen) 12/03/2017 5:08 PM CDT 12/03/2017 5:28 PM CDT Narrative [facility] - 12/03/2017 6:04 PM CDT Patricia Martinez MD LAB BLOOD ORDERABLES Final R esult Performing Organization Address City/[facility] [place] [address] documented in this encounter Visit Diagnoses Diagnosis Rheumatoid 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 (CMS/HCC) (HCC) Scleritis and episcleritis of left eye documented in this encounter Care Teams Document Image Technician Relationship Specialty Start Date End Date Mark Cerna DO PCP - General 09/04/16 01/17/19 documented as of this encounter
--- OUTSIDE RECORDS SUMMARY | 2024-04-24 05:57 | XMS_ITS | Encounter Summary ---
Author Organization [facility] Healthcare Address [address] [place] [address] Care Team Providers Care Sports Manager Name Role Phone Mark Cerna DO Primary Care Provider [phone]- [phone] Reason for Referral * Diagnostic Imaging (Routine) - Closed Specialty Diagnoses / Procedures Referred By Niranjan farrell Referred To Contact Radiology Diagnoses Diplopia Procedures MRI Brain W WO Contrast Patricia Martinez MD Phone: tel: fax: [address] [address] Referral ID Status Reason Start Date Expiration Date Visits Re quested Visits Authorized [id number] Closed 03/22/2018 05/06/2018 1 1 RTAKER HELPER Reason for Visit * Diagnostic Imaging (Routine) - Closed Specialty Diagnoses / Procedures Referred By Niranjan farrell Referred To Contact Radiology Diagnoses Diplopia Procedures MRI Brain W WO Contrast Patricia Martinez MD Phone: tel: fax: [address] [address] Referral ID Status Reason Start Date Expiration Date Visits Re quested Visits Authorized [id number] Closed 03/22/2018 05/06/2018 1 1 Encounter Details Date Type Department Care Team (Latest Contact Info) Description 03/29/2018 5:16 PM UNDERTAKER HELPER - 03/29/2018 11:59 PM UNDERTAKER HELPER Hospital Encounter [address] [address] Patricia Martinez MD [address] [facility] [address] [facility] [address] [place] [address] Diplopia Discharge Disposition: Discharge to home or self care Social History Tobacco Use Types Packs/Day Years Used Date Smoking Tobacco: Never Smokeless Tobacco: Never Alcohol Use Standard Drinks/Week Comments No 0 (1 standard drink = 0.6 oz pur e alcohol) Comments No Sex and Gender Information Value Date Recorded Sex Assigned at Not on file Legal Sex Female 3:42 AM UNDERTAKER HELPER Gender Identity Not on file Sexual Orientation Not on file documented as of this encounter Medications at Time of Discharge FLUoxetine (PROzac) 20 mg capsule daily. 04/29/2018 folic acid (FOLVITE) 1 mg tablet TAKE 2 TABLETS BY MOUTH DAILY 180 tablet 3 01/03/2018 11/02/2018 hydroxychloroquin e (PLAQUENIL) 200 mg tablet daily. 12/27/2015 06/10/2018 ibuprofen (ADVIL,MOTRIN) 400 mg tablet Take by mouth. 03/30/2019 lisinopril (PRINIVIL,ZESTRIL ) 20 mg tablet daily. 01/18/2019 melatonin 5 mg tablet TAKE 1 TABLET BEDTIME 03/30/2019 methotrexate 2.5 mg tablet TAKE 8 TABLETS ONCE WEEKLY 96 tablet 1 02/19/2018 05/06/2018 multivitamin-min- FA-ginkgo (ONE DAILY WOMEN 50 PLUS) [...] CONTRAST Schedule Routine, Read Routine (OP Routine) 03/29/2018 5:50 PM UNDERTAKER HELPER Diplopia documented in this encounter Results * MRI Brain W WO Contrast (03/29/2018 5:50 PM UNDERTAKER HELPER) Anatomical Region Laterality Modality Head and Neck N/A Magnetic Resonan ce 03/29/2018 9:45 PM UNDERTAKER HELPER Impressions 03/29/2018 10:27 PM UNDERTAKER HELPER 1. 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 2. ??Minimal white matter changes; similar to previous exam. 3. ??Otherwise normal MRI brain with and without gadolinium. Electronically signed by: Janusz Blackwell Jr., M.D. Narrative 03/29/2018 10:27 PM UNDERTAKER HELPER MRI BRAIN W WO CONTRAST HISTORY: ??Follow-up A COMM-left NEISHA 3.5 mm aneurysm. COMPARISON: 10/01/2016 MRA brain as well as 10/04/2013 MRI and MRA brain. CONTRAST: 15 mL Dotarem IV. TECHNIQUE: Pre-gadolinium sagittal and coronal FLAIR; axial T1 inversion recovery, T2, FLAIR, T2 gradient echo, DWI. ??Post gadolinium axial T1 inversion recovery and 3-D sagittal T1 sequence with axial and coronal reformatting. FINDINGS: Ventricles, basal cisterns and cortical sulci are normal. A few foci of increased T2 and FLAIR signal are present in white matter bilaterally. ??Vuong and white matter signal intensities are otherwise normal. ??No mass, hemorrhage, edema or midline shift is seen. ??No abnormal intra-axial or extra-axial fluid collection is identified. ??No diffusion restriction/brain edema is identified on diffusion-weighted images. ??No abnormal post gadolinium enhancement is observed. ??Small aneurysm at anterior communicating artery-left anterior cerebral artery junction appears to be approximately 3.5-4.0 mm diameter. ??Calvarium and base of skull are unremarkable. Procedure Note Janusz Blackwell Jr., MD - 03/29/2018 MRI BRAIN W WO CONTRAST HISTORY: Follow-up A COMM-left NEISHA 3.5 mm aneurysm. COMPARISON: 10/01/2016 MRA brain as well as 10/04/2013 MRI and MRA brain. CONTRAST: 15 mL Dotarem IV. TECHNIQUE: Pre-gadolinium sagittal and coronal FLAIR; axial T1 inversion recovery, T2, FLAIR, T2 gradient echo, DWI. Post gadolinium axial T1 inversion recovery and 3-D sagittal T1 sequence with axial and coronal reformatting. FINDINGS: Ventricles, basal cisterns and cortical sulci are normal. A few foci of increased T2 and FLAIR signal are present in white matter bilaterally. Vuong and white matter signal intensities are otherwise normal. No mass, hemorrhage, edema or midline shift is seen. No abnormal intra-axial or extra-axial fluid collection is identified. No diffusion restriction/brain edema is identified on diffusion-weighted images. No abnormal post gadolinium enhancement is observed. Small aneurysm at anterior communicating artery-left anterior cerebral artery junction appears to be approximately 3.5-4.0 mm diameter. Calvarium and base of skull are unremarkable. IMPRESSION: 1. 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 2. Minimal white matter changes; similar to previous exam. 3. Otherwise normal MRI brain with and without gadolinium. Electronically signed by: Janusz Blackwell Jr., M.D. Patricia Martinez MD IMG MRI PROCEDURES Final Res ult documented in this encounter Visit Diagnoses Diagnosis Diplopia documented in this encounter Administered Medications Inactive Administered Medications - up to 3 most recent administrations Medication Order MAR Action Action Date Dose Rate Site gadoterate meglumine (DOTAREM) 0.5 mmol/mL injection 15 mL 15 mL, intravenous, Once in imaging, contrast, Starting on Thu03/29/18 at 1751, For 1 dose Given 03/29/2018 5:51 PM UNDERTAKER HELPER 15 mL documented in this encounter Care Teams Sports Manager Relationship Specialty Start Date End Date Mark Cerna DO PCP - General 09/04/16 01/17/19 documented as of this encounter
--- OUTSIDE RECORDS SUMMARY | 2024-04-24 05:57 | XMS_ITS | Encounter Summary ---
Author Organization [facility] Address [address] [place] [address] Phone Care Team Providers Care Belly Roller Name Role Phone Mark Cerna DO Primary Care Provider [phone]- [phone] Reason for Visit * Reason Comments Annual Exam Well Woman; pt state s she had a pap last month Encounter Details Date Type Department Care Team (Late st Contact Info) Description 02/24/2018 2:15 PM BLIND STITCH MACHINE OPERATOR Office Visit [facility] Obstetrics and Gynecology [address] [facility] 7th Floor [address] [place] [address] Ema Keyes MD [address] [place] [id number] Encounter to establish care (Primary Dx); Cervical high risk HPV (human papillomavirus) test positive Social History Tobacco Use Types Packs/Day Years Used Date Smoking Tobacco: Never Smokeless Tobacco: Never Alcohol Use Standard Drinks/Week Comments No 0 (1 standard drink = 0.6 oz pur e alcohol) Comments No Sex and Gender Information Value Date Recorded Sex Assigned at Not on file Legal Sex Female 3:42 AM BLIND STITCH MACHINE OPERATOR Gender Identity Not on file Sexual Orientation Not on file documented as of this encounter Last Filed Vital Signs Vital Sign Reading Time Taken Comments Blood Pressure 116/68 02/24/2018 2:11 PM BLIND STITCH MACHINE OPERATOR Pulse - - Temperature - - Respiratory Rate - - Oxygen Saturation - - Inhaled Oxygen Concentration - - Weight 61.7 kg (136 lb) 02/24/2018 2:11 PM BLIND STITCH MACHINE OPERATOR Height 160 cm (5' 3 ) 02/24/2018 2:11 PM BLIND STITCH MACHINE OPERATOR Body Mass Index 24.09 02/24/2018 2:11 PM BLIND STITCH MACHINE OPERATOR documented in this encounter Progress Notes * Ema Keyes MD - 02/24/2018 2:15 PM CST WAITER/WAITRESS CABIN CLASS visit note Chief Complaint: Chief Complaint Annual Exam Subjective: Yesika Denney is a 57 y.o. year old female who [facility] Previously followed with Dr. Garcia in [facility]. Recently switched to Dr. Vega and seen in January for rust colored spotting. She reports they performed an EMBx and U/S at that time. Saw a small 1 inch fibroid but otherwisenormal ultrasound per her report. She also reports having a normal pap but positive HPV (negative 16/18)--report visualized on patient's computer. Personal history of breast cancer--Stage I ER/MA pos invasive ductal carcinoma. S/p right lumpectomy/ radiation/chemo. Attempted Arimidex but did not tolerate secondary to severe arthritis and thus this was discontinued. Menstrual History: No LMP recorded. Patient is postmenopausal. Period Pattern: None Sexual History: Sexual History Sexually Transmitted Infection History: None OB History Para Term AB Living 3 3 3 3 SAB TAB Ectopic Multiple Live Births 3 # Outcome Date GA Labor/2nd Weight Sex Delivery Anes PTL Living Name Location Delivering Clinician 1 Term Living 2 Term Living 3 Term Living Patient Active Problem List Diagnosis ??? Cerebral arterial aneurysm ??? Migraine with aura ??? Estrogen receptor positive status (ER+) ??? High risk medication use ??? Rheumatoid arthritis (CMS/HCC) ??? Scleritis and episcleritis of left eye ??? History of breast cancer Past Medical History: Diagnosis Date ??? Brain [...] use: No ??? Sexual activity: Not Currently Other Topics Concern ??? None Social History Narrative ??? None Allergies: Allergies Allergen Reactions ??? Adhesive Hives ??? Adhesive Tape-Silicones Rash ??? Cyclizine Other (See comments) and Hallucinations Reaction: Urinary retention Medications: Current Outpatient Prescriptions: ??? FLUoxetine (PROzac) 20 mg capsule, daily., Disp: , Rfl: ??? folic acid (FOLVITE) 1 mg tablet, TAKE 2 TABLETS BY MOUTH DAILY, Disp: 180 tablet, Rfl: 3 ??? hydroxychloroquine (PLAQUENIL) 200 mg tablet, daily., Disp: , Rfl: ??? ibuprofen (ADVIL,MOTRIN) 400 mg tablet, Take by mouth., Disp: , Rfl: ??? melatonin 5 mg tablet, TAKE 1 TABLET BEDTIME, Disp: , Rfl: ??? methotrexate 2.5 mg tablet, TAKE 8 TABLETS ONCE WEEKLY, Disp: 96 tablet, Rfl: 1 ??? raixgshyekcj-dsg-TG-ginkgo (ONE DAILY WOMEN 50 PLUS) 400-120 mcg-mg tablet, daily., Disp: , Rfl: ??? predniSONE (DELTASONE) 10 mg tablet, Take 1 tablet (10 mg total) by mouth daily., Disp: 30 tablet, Rfl: 2 ??? sulfaSALAzine EN (AZULFIDINE EN) 500 mg EC tablet, TAKE 1 TABLET TWICE A DAY, Disp: , Rfl: ??? valACYclovir (VALTREX) 500 mg tablet, daily., Disp: , Rfl: ??? lisinopril (PRINIVIL,ZESTRIL) 20 mg tablet, daily., Disp: , Rfl: Family [...] Genitourinary: Positive for vaginal bleeding. Low libido All other systems reviewed and are negative. Objective: BP 116/68 Ht 160 cm (5' 3 ) Wt 136 lb (61.7 kg) BMI 24.09 kg/m?? Physical Exam Constitutional: She appears well-developed and well-nourished. Cardiovascular: Normal rate, regular rhythm and normal heart sounds. Pulmonary/Chest: Effort normal. Assessment and Plan: Yesika Denney is a 57 y.o. female here to establish care --will get records from outside provider to determine if further workup needed for PMB --history of negative pap, HPV pos (neg HPV 16/18), repeat in 1 yr. Reviewed HPV and nature of virus, etc. --discussed low libido and options for management. Spent a total of 30 minutes in face to face counseling regarding patient's history and concerns today. Ema Keyes MD 02/24/2018 D STITCH MACHINE OPERATOR documented in this encounter Plan of Treatment Not on file documented as of this encounter Visit Diagnoses Diagnosis Encounter to establish care- Primary Cervical high risk HPV (human papillomavirus) test positive Cervical high risk human papillomavirus (HPV) DNA test positive documented in this encounter Discontinued Medications Medication Sig Discontinue Reason Start Date End Da te HYDROCHLOROTHIAZIDE ORAL Take by mouth. Unknown dosage 02/24/2018 LISINOPRIL ORAL Take by mouth. 02/24/2018 documented as of this encounter Care Teams Belly Roller Relationship Specialty Start Date End Date Mark Cerna DO PCP - General 09/04/16 01/17/19 documented as of this encounter
--- OUTSIDE RECORDS SUMMARY | 2024-04-24 05:57 | XMS_ITS | Encounter Summary ---
Author Organization [facility] [employer] [facility] Address [address] [place] [address] Phone Care Team Providers Care Time Cycle Operator Name Role Phone Mark Cerna DO Primary Care Provider [phone]- [phone] Encounter Details Date Type Department Care Team (Late st Contact Info) Description 05/18/2018 Orders Only [facility] Oncology [address] [place] [address] Medicine 7th [place] [address] [place] [address] Isabel, Brandy Calabrese MD PhD [address] [facility] [address] [place] [address] History of breast cancer (Primary Dx) Social History Tobacco Use Types Packs/Day Years Used Date Smoking Tobacco: Never Smokeless Tobacco: Never Alcohol Use Standard Drinks/Week Comments No 0 (1 standard drink = 0.6 oz pur e alcohol) Comments No Sex and Gender Information Value Date Recorded Sex Assigned at Not on file Legal Sex Female 3:42 AM GROUND INSTRUCTOR ADVANCED Gender Identity Not on file Sexual Orientation Not on file documented as of this encounter Plan of Treatment Not on file documented as of this encounter Results * (ABNORMAL) CBC with auto differential (07/08/2018 10:43 AM CDT) WBC 3.9 3.8 - 9.8 K/cumm KATHY [facility] Comment:Testing performed by : [facility], [address] [place] [phone] Hgb 12.6 12.1 - 15.1 g/dL KATHY BJ Comment:Testing performed by : [facility], [address] [place], [place] [id number] Hct 38.3 36.1 - 44.3 % CERALYSSIA BJ Comment:Testing performed by : [facility], [address] [place] [address] Plt 219 140 - 440 K/cumm CERALYSSIA BJ Comment:Testing performed by : [facility], [address] [place], [place] [id number] MPV 8.0 6.8 - 10.4 fL CERALYSSIA BJ Comment:Testing performed by : [place] [address] RBC 3.78(L) 3.90 - 5.00 M/cumm KATHY BJ Comment:Testing performed by : [place] [address] MCV 101.2(H) 80.0 - 97.6 fL CERALYSSIA BJ Comment:Testing performed by : [facility], [address] [place] [address] MCH 33.4 26.7 - 33.7 pg CERALYSSIA BJ Comment:Testing performed by : [place] [address] MCHC 33.0 32.7 - 35.5 g/dL KATHY BJ Comment:Testing performed by : [place] [address] RDW CV 14.0 11.8 - 14.6 % KATHY BJ Comment:Testing performed by : [facility], [address] [place], [place] [id number] NRBC abs 0.00 0.00 - 0.01 K/cumm KATHY REYNA Comment:Testing performed by : [place] [id number] Blood specimen (specimen) 07/08/2018 10:43 AM CDT 07/08/2018 10:45 AM CDT Narrative KATHY REYNA - 07/08/2018 10:49 AM CDT Brandy Calabrese Ma, MD PhD LAB BLOOD ORDERABLES Final Result Performing Organization Address City/Va Hospital/ZIP Co de Phone Number [facility] [place] [address] * Cancer antigen 15-3 (07/08/2018 10:34 AM CDT) [facility] [place] 15-3 ag 8.3 0.0 - 25.0 units/mL [facility] Blood specimen (specimen) 07/08/2018 10:34 AM CDT 07/08/2018 10:55 AM CDT Narrative [facility] - 07/08/2018 11:36 AM CDT Brandy Calabrese Ma, MD PhD LAB BLOOD ORDERABLES Final Result Performing Organization Address City/Va Hospital/[facility] Co de Phone Number [facility] [place] [address] * (ABNORMAL) Comprehensive metabolic panel (07/08/2018 10:34 AM CDT) [facility] Sodium 142 135 - 145 mmol/L [facility] Potassium, pl 4.6 3.3 - 4.9 mmol/L [facility] Chloride 106 97 - 110 mmol/L [facility] CO2 27 22 - 32 mmol/L [facility] Anion gap 9 2 - 15 mmol/L [facility] BUN 14 8 - 25 mg/dL [facility] Creatinine 0.79 0.60 - 1.10 mg/dL [facility] Glucose 88 70 - 199 mg/dL [facility] Comment: Interpretive Data Fasting glucose >/= 126 [...] 2017. Calcium 9.4 8.5 - 10.3 mg/dL [facility] Bilirubin, total <0.2(L) 0.1 - 1.2 mg/dL [facility] Protein, pl 6.8 6.5 - 8.5 g/dL [facility] Albumin 4.6 3.5 - 5.0 g/dL [facility] Alk phos 51 40 - 130 Units/L [facility] ALT 24 7 - 45 Units/L [facility] AST 24 10 - 45 Units/L [facility] Blood specimen (specimen) 07/08/2018 10:34 AM CDT 07/08/2018 10:55 AM CDT Narrative [facility] - 07/08/2018 11:43 AM CDT Brandy Calabrese Ma, MD PhD LAB BLOOD ORDERABLES Final Result [facility] Department [place] [address] documented in this encounter Visit Diagnoses Diagnosis History of breast cancer- Primary Personal history of malignant neoplasm of breast History of breast cancer Personal history of malignant neoplasm of breast documented in this encounter Care Teams Time Cycle Operator Relationship Specialty Start Date End Date Mark Cerna DO PCP - General 09/04/16 01/17/19 documented as of this encounter
--- OUTSIDE RECORDS SUMMARY | 2024-04-24 05:57 | XMS_ITS | Encounter Summary ---
Author Organization [facility] [employer] [facility] Address [address] [place] [address] Phone Care Team Providers Care Design Inserter Name Role Phone Mark Cerna DO Primary Care Provider [phone]- [phone] Encounter Details Date Type Department Care Team (Late st Contact Info) Description 12/03/2017 1:20 PM CDT Lab [facility] Endocrinology Metabolism and Lipid [address] [facility] 5th [place] [address] [place] [address] Rheumatoid 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 (CMS/HCC) Social History Tobacco Use Types Packs/Day Years Used Date Smoking Tobacco: Never Smokeless Tobacco: Never Comments Unknown Sex and Gender Information Value Date Recorded Sex Assigned at Not on file Legal Sex Female 3:42 AM ENGINEER Gender Identity Not on file Sexual Orientation Not on file documented as of this encounter Plan of Treatment Not on file documented as of this encounter Procedures Procedure Name Priority Date/Time Associated Diagnosis Comments CBC WITH AUTO DIFFERENTIAL Routine 12/03/2017 1:28 PM CDT Rheumatoid 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 (CMS/HCC) COMPREHENSIVE METABOLIC PANEL Routine 12/03/2017 1:28 PM CDT Rheumatoid 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 (CMS/HCC) documented in this encounter Results * Comprehensive metabolic panel (12/03/2017 1:28 PM CDT) Total Protein 6.9 6.1 - 8.4 g/dL [...] (HCC) documented in this encounter Care Teams Design Inserter Relationship Specialty Start Date End Date Mark Cerna DO PCP - General 09/04/16 01/17/19 documented as of this encounter
--- OUTSIDE RECORDS SUMMARY | 2024-04-24 05:57 | XMS_ITS | Encounter Summary ---
Author Organization [facility] Address [address] [place] [address] Phone Care Team Providers Care Mortician Supplies Sales Representative Name Role Phone Mark Cerna DO Primary Care Provider [phone]- [phone] Encounter Details Date Type Department Care Team (Late st Contact Info) Description 03/16/2018 9:30 AM PARI MUTUEL CLERK Lab [facility] Endocrinology Metabolism and Lipid [address] [facility] 5th [place] [address] [place] [address] Rheumatoid 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 (CMS/HCC) Social History Tobacco Use Types Packs/Day Years Used Date Smoking Tobacco: Never Smokeless Tobacco: Never Alcohol Use Standard Drinks/Week Comments No 0 (1 standard drink = 0.6 oz pur e alcohol) Comments No Sex and Gender Information Value Date Recorded Sex Assigned at Not on file Legal Sex Female 3:42 AM PARI MUTUEL CLERK Gender Identity Not on file Sexual Orientation Not on file documented as of this encounter Plan of Treatment Not on file documented as of this encounter Procedures Procedure Name Priority Date/Time Associated Diagnosis Comments CBC WITH AUTO DIFFERENTIAL Routine 03/16/2018 9:14 AM PARI MUTUEL CLERK Rheumatoid 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 (CMS/HCC) COMPREHENSIVE METABOLIC PANEL Routine 03/16/2018 9:14 AM PARI MUTUEL CLERK Rheumatoid 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 (CMS/HCC) documented in this encounter Results * (ABNORMAL) CBC with auto differential (03/16/2018 9:14 AM PARI MUTUEL CLERK) White Blood Count 4.7 3.6 - 11.2 K/uL [facility] RBC 3.69 3.63 - 4.92 M/uL [facility] Hemoglobin 12.3 11.9 - 15.5 g/dL [facility] Hematocrit 38.3 36.1 - 44.3 % [facility] MCV 103.8(H) 80.0 - 97.6 fL [facility] MCH 33.4 26.7 - 33.7 pg [facility] MCHC 32.2(L) 32.7 - 35.5 g/dL [facility] RBC Dist Width 13.9 12.3 - 17.0 % [facility] Platelet Count 202 140 - 440 K/uL [facility] MPV 9.5 6.8 - 10.4 fL [facility] Neutrophils % 59.1 38.7 - 74.5 % [facility] Lymphocyte % 28.1 20.0 - 54.3 % [facility] Monocytes % 10.1 4.3 - 13.5 % [facility] Eosinophils % 2.2 0.0 - 6.0 % [facility] Basophil % 0.5 0.0 - 3.0 % [facility] Absolute Neutrophil 2.8 1.8 - 6.6 K/uL [facility] Absolute Lymphocyte 1.3 0.8 - 3.3 K/uL [facility] Absolute Monocyte 0.5 0.2 - 1.2 K/uL [facility] Absolute Eosinophil 0.1 0.0 - 0.5 K/uL [facility] Absolute Basophil 0.0 0.0 - 0.2 K/uL [facility] Nucleated RBC % 0.0 0.0 - 0.4 /100 WBC [facility] Blood specimen (specimen) 03/16/2018 9:14 AM PARI MUTUEL CLERK 03/16/2018 10:28 AM PARI MUTUEL CLERK us Patricia Martinez MD LAB BLOOD ORDERABLES Final R esult [facility] CORE LAB [facility] * Comprehensive metabolic panel (03/16/2018 9:14 AM PARI MUTUEL CLERK) Total Protein 6.7 6.1 - 8.4 g/dL [facility] Albumin 4.4 3.5 - 5.2 g/dL [facility] Calcium 9.1 8.6 - 10.3 mg/dL [facility] BUN 17 7 - 23 mg/dL [facility] Total Bilirubin 0.22 0.20 - 1.40 mg/dL [facility] Comment:Repeated and Verifie d Alk Phos, Total 53 35 - 129 IU/L [facility] AST (SGOT) 24 11 - 47 IU/L [facility] ALT (SGPT) 17 6 - 53 IU/L [facility] Creatinine 0.75 0.60 - 1.10 mg/dL [facility] Sodium 143 135 - 145 mmol/L [facility] Potassium 4.4 3.3 - 5.1 mmol/L [facility] Chloride 103 95 - 107 mmol/L [facility] CO2 Content 25 21 - 29 mmol/L [facility] Glucose 84 64 - 99 mg/dL [facility] Comment: NONFASTING GLUCOSE RANGE = 64-199 mg/dL FASTING GLUCOSE 64 - 99 = NORMAL FASTING GLUCOSE 100 - 125 = IMPAIRED FASTING GLUCOSE FASTING GLUCOSE >=126 = PROVISIONAL DIAGNOSIS OF DIABETES eGFR NON-AFR. DOMINICAN 88.5 >60.0 mL/min/1.7 3 m2 [facility] eGFR >90.0 >60.0 mL/min/1.7 3 m2 [facility] Blood specimen (specimen) 03/16/2018 9:14 AM PARI MUTUEL CLERK 03/16/2018 10:28 AM PARI MUTUEL CLERK us Patricia Martinez MD LAB BLOOD ORDERABLES Final R esult [facility] documented in this encounter Visit Diagnoses Diagnosis Rheumatoid 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 (CMS/HCC) (HCC) documented in this encounter Care Teams Mortician Supplies Sales Representative Relationship Specialty Start Date End Date Mark Cerna DO PCP - General 09/04/16 01/17/19 documented as of this encounter
--- OUTSIDE RECORDS SUMMARY | 2024-04-24 05:57 | XMS_ITS | Encounter Summary ---
Author Organization [facility] [employer] [facility] Address [address] [place] [address] Phone Care Team Providers Care Industrial Technology Teacher Name Role Phone Mark Cerna DO Primary Care Provider [phone] Erica Rodrigues MD Unavailable Gasper Kaba MD Unavailable [phone] Brandy Aguirre TELETYPE OR VARITYPE KEYBOARD OPERATOR Unavailable Jo-Ann Morrow PhD Unavailable [phone] Christina Louis HEARING CARE PROFESSIONAL Unavailable [phone] Encounter Details Date Type Department Care Team (Late st Contact Info) Description 11/02/2018 Orders Only [facility] Obstetrics and Gynecology [address] [facility] 1st Floor [address] [place] [address] Ema Keyes MD [facility] [address] [address] Social History Tobacco Use Types Packs/Day Years Used Date Smoking Tobacco: Never Smokeless Tobacco: Never Alcohol Use Standard Drinks/Week Comments No 0 (1 standard drink = 0.6 oz pur e alcohol) Comments No Sex and Gender Information Value Date Recorded Sex Assigned at Not on file Legal Sex Female 3:42 AM SPORTS MEDICINE TRAINER Gender Identity Not on file Sexual Orientation Not on file 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 Bx INFORMATION NOT PROVIDED [facility] SOURCE: Cervix, Endocervix [facility] Pap, specimen adequacy SATISFACTORY FOR EVALUATION [facility] HPV interp Negative for intraepithelial lesion or malignancy. Atrophic pattern; predominantly parabasal cells [facility] COMMENTS This Pap test has been evaluated with computer assisted technology. [facility] Habilitation Training Specialist [facility], [place](ASCP) CT screening location: [place] [address] DIAGNOSTIC - Review drafter seismograph [facility], [place](AS[place]) CT screening location: [place] [address] DIAGNOSTIC - Comment [facility] - Comment: EXPLANATORY NOTE: The Pap is a [...] High Risk E6/E7 Not Detected NOT DETECTED [facility] Comment: Not Detected High Risk HPV types (16,18,31,33,35,39,45,51,52, 56,58,59,66,68) were not detected. Other HPV types which cause anogenital lesions may be present. The significance of the other types of HPV in malignant processes has not been established. Methodology: Real Time PCR ? 11/02/2018 11:1 3 AM CDT 11/03/2018 7:16 AM CDT Narrative [facility] - 11/05/2018 3:34 PM CDT FASTING: UNKNOWN Resulting Agency Comment Performing Organization Information: ?Site ID: AMD ?Name: [facility] ?Address: [address] [place] [address] ?Director: Sree He M.D.,PhD ?Site ID: ?Name: [facility] ?Address: Critical [place] [address] ?Director: Ananya Garcia us Ema Keyes MD LAB CYTOLOGY ORDERABLES F inal Result [facility] [place], [place] [facility] [place], [place] documented in this encounter Visit Diagnoses Not on filedocumented in this encounter Care Teams Industrial Technology Teacher Relationship Specialty Start Date End Date Mark Cerna DO PCP - General 09/04/16 01/17/19 Erica Rodrigues MD [address] [place] [address] Radiation Oncologist Radiation Oncology 10/25/18 Gasper Kaba MD [address] [place] [address] Surgeon Surgical Oncology 10/25/18 Brandy Aguirre, TELETYPE OR VARITYPE KEYBOARD OPERATOR [address] [place] [address] Nurse Practitioner Certified Clinical Nurse Specialist 10/25/18 Jo-Ann Morrow, PhD [address] [place] [address] Nurse Practitioner Radiation Oncology 10/25/18 Christina Louis NP [address] [facility] [address] [place] [address] Nurse Practitioner Medical Oncology 10/25/18 documented as of this encounter
--- OUTSIDE RECORDS SUMMARY | 2024-04-24 05:57 | XMS_ITS | Encounter Summary ---
Author Organization [facility] Address [address] [place] [address] Phone Care Team Providers Care [employer] Operations Specialist Name Role Phone Mark Cerna DO Primary Care Provider [phone] Reason for Referral * Diagnostic Imaging (Routine) - Closed Specialty Diagnoses / Procedures Referred By Contac t Referred To Contact Diagnoses High risk medication use Procedures Dexa Axial Skeleton Bone Density 1 or 2 Site Patricia Martinez MD Phone: tel: fax: [facility] (All Locations) Referral ID Status Reason Start Date Expiration Date Visits Re quested Visits Authorized [id number] Closed 06/02/2018 12/12/[address] [place] Encounter Details Date Type Department Care Team (Late st Contact Info) Description 06/02/2018 Orders Only [facility] Rheumatology [address] [facility] Medical Office Building [address] [place] [id number] Patricia Martinez MD [address] [facility] [address] [place] [address] detention systemic steroid user (Primary Dx); High risk medication use Social History Tobacco Use Types Packs/Day Years Used Date Smoking Tobacco: Never Smokeless Tobacco: Never Alcohol Use Standard Drinks/Week Comments No 0 (1 standard drink = 0.6 oz pur e alcohol) Comments No Sex and Gender Information Value Date Recorded Sex Assigned at Not on file Legal Sex Female 3:[address] [place] Gender Identity Not on file Sexual Orientation Not on file documented as of this encounter Plan of Treatment Scheduled Orders Name Type Priority Associated Diagnoses Orde r Schedule CBC with auto differential Lab Routine manager intermediate systemic steroid user every 3 months for 4 Occurrences starting 06/02/2018 until 06/02/2019, 1 completed Comprehensive metabolic panel Lab Routine detention systemic steroid user every 3 months for 4 Occurrences starting 06/02/2018 until 06/02/2019, 1 completed Erythrocyte sedimentation rate Lab Routine detention systemic steroid user every 3 months for 4 Occurrences starting 06/02/2018 until 06/02/2019, 1 completed CRP, high sensitivity Lab Routine detention systemic steroid user every 3 months for 4 Occurrences starting 06/02/2018 until 06/02/2019, 1 completed documented as of this encounter Procedures Procedure Name Priority Date/Time Associated Diagnosis Comments CBC WITH AUTO DIFFERENTIAL Routine 06/29/2018 12:30 PM CDT manager intermediate systemic steroid user ERYTHROCYTE SEDIMENTATION RATE Routine 06/29/2018 12:30 PM CDT manager intermediate systemic steroid user CRP, HIGH SENSITIVITY Routine 06/29/2018 12:30 PM CDT detention systemic steroid user COMPREHENSIVE METABOLIC PANEL Routine 06/29/2018 12:30 PM CDT manager intermediate systemic steroid user documented in this encounter Results * Dexa Axial Skeleton Bone Density 1 or 2 Site (07/07/2018 10:10 AM CDT) Anatomical Region Laterality Modality Body N/A Radiographic Katty ging Narrative 07/08/2018 2:55 PM CDT Patient Name: Yesika Denney Date of : 1960 Date of scan: 07/07/2018 Bone mineral density was performed on a [employer] Discovery Densitometer. ?? Machine Cross-calibration and Precision studies have been performed with a least significant change of 0.024 g/cm at the spine, 0.020 g/cm at the total proximal femur, and 0.014g/cm at the forearm. HISTORY: ??This is a 57 y.o. postmenopausal female with a history of breast cancer. Currently on treatment with vitamin D. History of tobacco use: Social History Tobacco Use Smoking Status Never Smoker INDICATIONS: Menopause status and screening for osteoporosis. FINDINGS: BONE MINERAL DENSITY OF THE LUMBAR SPINE Bone Mineral Density (BMD) of the lumbar spine was measured from L1-L4 and the average density was calculated to be 1.005 gm/cm. This corresponds to a T-score standard deviations from the mean of young adults of -0.4. There is no previous study available for comparison. BONE MINERAL DENSITY OF THE PROXIMAL FEMUR Bone Mineral Density (BMD) of the left hip total was found to be 0.880 gm/cm2. This corresponds to a T-score standard deviations from the mean of young adults of -0.5. Femoral neck is 0.749 gm/cm2 with a T-score ??of -0.9. There is no previous study available for comparison. SUMMARY:Bone mineral density is near the young adult normal mean with no increased risk for fracture. ADDITIONAL COMMENTS: If the patient has a history of a fragility fracture, a fracture that occurred with trauma equivalent to a fall from a standing position or less, then the diagnosis is osteoporosis. The risk of osteoporotic fracture increases approximately 2-fold for each 1.0 SD decrease in T-score. However, low bone density is not the only risk factor for fracture. Other factors include patient? s age, previous osteoporotic fracture or prior fracture as an adult, loss of height of greater than 2 inches, corticosteroid use, risk of falling, risk of injury, and family history of osteoporosis. Not everyone with low bone mineral density has osteoporosis. Osteomalacia and other metabolic bone disorders should also be considered where indicated. ??Patients who have osteoporosis should be evaluated for specific diseases and conditions (secondary causes) that may cause or contribute to bone loss. Consider repeating this study in 1-2 years to assess the patient? s response to treatment, if applicable. It is recommended that any follow up exam be performed on the same machine if possible for better accuracy. DEFINITIONS: Osteoporosis: ??BMD at or below -2.5 T-score Osteopenia (low bone mass): ??BMD between -1.0 and-2.5 T-score. The Bone Health Program adopts the following WHO definitions: Osteoporosis: ??BMD below -2.5 S.D. as compared to the BMD of young normal adults. Osteopenia or Low Bone Mass: ??BMD between -1.0 and -2.5 S.D. below the BMD of young normal adults. Normal Bone Density: ??BMD equal to or greater than -1.0 S.D. as compared to the BMD of young normal adults. References: 1) Murphy, Annals of Internal Medicine 114(11): ??919-923 (1990) 2) Kristin, Lancet 341 : 72-75 (1992) 3) Derrick, Journal Bone and Mineral Research 7(6): 633-8 (1991) 4) Jorden, Journal Bone and Mineral Research 8(10):1227-33 (1992) The history and data sections of the bone mineral density scan were prepared by Valorie Bowie who is accredited by the International Society of Clinical Densitometry. The overall patient assessment and scan interpretation were performed by Gokul Flower M.D. who is certified by the International Society of Clinical Densitometry. [id number] us Patricia Martinez MD IMG DXA PROCEDURES Final Res ult * CRP, high sensitivity (06/29/2018 12:30 PM CDT) C-Reactive Protein, Cardiac 1.83 0.00 - 3.00 mg/L [facility] - 01 Comment: ? Relative Risk for Future Cardiovascular Event ? Low ? <1.00 ? Average ? 1.00 - 3.00 ? High ?>3.00 Blood specimen (specimen) 06/29/2018 12:30 PM CDT 06/29/2018 Narrative [facility] - 06/30/2018 4:11 AM CDT Performed at: ??01 - [facility] [address] ??[id number] Ball Assembler: John Lozoya PhD, Phone: ??[phone] Patricia Martinez MD LAB BLOOD ORDERABLES Final R esult Performing Organization Address [facility] Co de Phone Number [facility] - * Erythrocyte sedimentation rate (06/29/2018 12:30 PM CDT) Erythrocyte sedimentation rate 2 0 - 40 mm/hr [facility] - 01 Blood specimen (specimen) 06/29/2018 12:30 PM CDT 06/29/2018 Narrative [facility] - 06/30/2018 4:11 AM CDT Performed at: ?? - [facility] [address] ??[id number] Ball Assembler: John Lozoya PhD, Phone: ??[phone] us Patricia Martinez MD LAB BLOOD ORDERABLES Final R esult Performing Organization Address [facility] Co de Phone Number [facility] - * (ABNORMAL) Comprehensive metabolic panel (06/29/2018 12:30 PM CDT) Glucose 119(H) 65 - 99 mg/dL [facility] - 01 BUN 13 6 - 24 mg/dL [facility] - 01 Creatinine, Serum 0.75 0.57 - 1.00 mg/dL [facility] - 01 eGFR If NonAfricn Am 89 >59 mL/min/1.7 3 [facility] - 01 eGFR If Africn Am 102 >59 mL/min/1.7 3 [facility] - 01 BUN/creat ratio 17 9 - 23 [facility] - 01 Sodium 141 134 - 144 mmol/L [facility] - 01 Potassium, sr 4.5 3.5 - 5.2 mmol/L [facility] - 01 Chloride 101 96 - 106 mmol/L [facility] - 01 CO2 25 20 - 29 mmol/L [facility] - 01 Calcium 9.3 8.7 - 10.2 mg/dL [facility] - 01 Protein, sr 7.1 6.0 - 8.5 g/dL [facility] - 01 Albumin 5.0 3.5 - 5.5 g/dL [facility] - 01 Globulin, Total 2.1 1.5 - 4.5 g/dL [facility] - 01 A/G Ratio 2.4(H) 1.2 - 2.2 [facility] - 01 Bilirubin, Total 0.3 0.0 - 1.2 mg/dL [facility] - 01 Alk phos 51 39 - 117 IU/L [facility] - 01 AST 23 0 - 40 IU/L [facility] - 01 ALT 15 0 - 32 IU/L [facility] - 01 Blood specimen (specimen) 06/29/2018 12:30 PM CDT 06/29/2018 Narrative [facility] - 06/30/2018 4:11 AM CDT Performed at: ?? - [facility] ??[id number] Ball Assembler: John Lozoya PhD, Phone: ??[phone] us Patricia Martinez MD LAB BLOOD ORDERABLES Final R esult [facility] - 01 * (ABNORMAL) CBC with auto differential (06/29/2018 12:30 PM CDT) WBC 5.7 3.4 - 10.8 x10E3/uL [facility] - 01 RBC 4.01 3.77 - 5.28 x10E6/uL [facility] - 01 Hgb 13.3 11.1 - 15.9 g/dL [facility] - 01 Hct 40.2 34.0 - 46.6 % [facility] - 01 MCV 100(H) 79 - 97 fL [facility] - 01 MCH 33.2(H) 26.6 - 33.0 pg [facility] - 01 MCHC 33.1 31.5 - 35.7 g/dL [facility] - 01 Rdw 14.0 12.3 - 15.4 % [facility] - 01 Platelets 277 150 - 379 x10E3/uL [facility] - 01 Neutrophils pct 56 Not Estab. % [facility] - 01 Lymphs pct 32 Not Estab. % [facility] - 01 Monocytes pct 10 Not Estab. % [facility] - 01 Eosinophils pct 1 Not Estab. % [facility] - 01 Basophil pct 0 Not Estab. % [facility] - 01 Neutrophil abs 3.2 1.4 - 7.0 x10E3/uL [facility] - 01 [...] x10E3/uL [facility] - 01 Blood specimen (specimen) 06/29/2018 12:30 PM CDT 06/29/2018 Narrative [facility] - 06/30/2018 4:11 AM CDT Performed at: ??01 - [facility] [address] ??[id number] Ball Assembler: John Lozoya PhD, Phone: ??[phone] us Patricia Martinez MD LAB BLOOD ORDERABLES Final R esult [facility] - 01 documented in this encounter Visit Diagnoses Diagnosis manager intermediate systemic steroid user- Primary High risk medication use High risk medication use documented in this encounter Care Teams [employer] Operations Specialist Relationship Specialty Start Date End Date Mark Cerna DO PCP - General 09/04/16 01/17/19 documented as of this encounter
--- OUTSIDE RECORDS SUMMARY | 2024-04-24 05:57 | XMS_ITS | Encounter Summary ---
Author Organization [facility] Healthcare Address [address] [place] [address] Care Team Providers Care Junior Account Executive Name Role Phone Mark Cerna DO Primary Care Provider [phone] Erica Rodrigues MD Unavailable Gasper Kaba MD Unavailable Brandy Aguirre PATIENT REGISTRAR Unavailable [phone] Jo-Ann Morrow PhD Unavailable [phone] Christina Louis MUD MIXER Unavailable [phone] Encounter Details Date Type Department Care Team (Late st Contact Info) Description 11/11/2018 9:15 AM CDT Anesthesia Event [facility] Operating Room [address] [place] [id number] Tian Freire MD [address] [address] [place] [address] Anesthesia Record Procedure Summary Procedure Name Responsible Anesthesiologist Anesthesia Start Time Anesthesia Stop Time Hysteroscopy (Vagina) Tian Freire MD 0915 11/11/18 1041 Events Date Time Event Comment 11/11/2018 0915 An Start 0918 In Room 0919 An Start Data 0927 An Induction The patient was reevaluated immediately before moderate or deep sedation use and before anesthesia induction. 0929 An LMA 0931 Anesthesia Ready 1007 Airway Removed 1014 1016 Out of Room 1032 an stop data 1040 Handoff to RN I completed my handoff [...] the time of handoff: No value filed. 1041 An Stop Meds Name Total lidocaine 1 % PF 70 mg fentaNYL 50 mcg propofol 180 mg phenylephrine 100 mcg/mL 50 mcg ondansetron PF (ZOFRAN) 2 mg/mL injectio n 4 mg ketorolac 30 mg dexamethasone (DECADRON) 4 mg/mL injecti on 4 mg 4 mg famotidine PF 20 mg Lactated Ringer's (LR) infusion 750 mL * Agents Name O2% N2O O2 Air Sevoflurane Inspired Sevoflurane * Blood No blood administrations on file. Lines, Drains, and Airways Type Details Placement Removal Peripheral IV Placement Date: 03/29/18; Placement Time: 174; Catheter Size: 24 G; Orientation: Left; Location: Antecubital; Site Prep: Alcohol; Insertion Attempts: 1; Patient Tolerance: Tolerated well; Removal Date: 02/08/22; Removal Time: 0806 03/29/18 1748 by Gasper Morton RT 02/08/22 08 by Ryder Klein, Peripheral IV Placement Date: 11/11/18; Placement Time: 0839; Catheter Size: 20 G; Orientation: Left; Location: Forearm; Site Prep: Chlorhexidine; Insertion Attempts: 1; Patient Tolerance: Tolerated well; Removal Date: 02/08/22; Removal Time: 0806 11/11/18 0839 by Ida Lopez RN 02/08/22 0806 by Ryder Klein, RT Supraglottic Airway Placement Date: 11/11/18; Placement Time: 0930 (created via procedure documentation); Mask Ventilation: 1; Size: 4; Insertion Attempts: 1; Removal Date: 11/11/18; Removal Time: 1008 11/11/18 0930 by Geno Story CRNA 11/11/18 1008 by Geno Story CRNA RETIRED Surgical Site 11/11/18; 0945; Vagina; 04/10/22; 1005 11/11/18 0945 by Meme Grant RN 04/10/22 1005 by Kera Carrasco RN documented in this encounter Social History Tobacco Use Types Packs/Day Years Used Date Smoking Tobacco: Never Smokeless Tobacco: Never Alcohol Use Standard Drinks/Week Comments No 0 (1 standard drink = 0.6 oz pur e alcohol) Comments No Sex and Gender Information Value Date Recorded Sex Assigned at Not on file 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 Gender Identity Not on file Sexual Orientation Not on file 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 Not on file Not on file Not on file documented as of this encounter OR Notes * Anesthesia Postprocedure Evaluation - Tian Freire MD - 11/11/2018 12:29 PM CDT Patient: Yesika Denney Procedure Summary Date: 11/11/18 Room / Location: [facility] OR POD 1 ROOM [facility] / [facility] OR POD 1 Anesthesia Start: 914 Anesthesia Stop: 1040 Procedures: Hysteroscopy (N/A Vagina) DILATION AND CURETTAGE (N/A Uterus) Diagnosis: Postmenopausal bleeding (Postmenopausal bleeding [N95.0]) Surgeon: Ema Keyes MD Responsible Provider: Tian Freire MD Anesthesia Type: general ASA Status: 2 Anesthesia Type: general Last vitals BP 114/74 Pulse 70 Temp 36.2 ??C (97.2 ??F) Resp 9 SpO2 99% Anesthesia Post Evaluation Patient location during evaluation: PACU Patient participation: complete - patient participated Level of consciousness: fully awake Pain score: 1 Pain management: adequate Airway patency: adequate Evidence of recall: no Anesthetic complications: no Cardiovascular status: hemodynamically stable Respiratory status: room air Hydration status: euvolemic Pt is: normothermic Nausea/Vomiting status: none Comments: Patient is conscious, oriented maintaining vitals can be shifted from PACU. BP 114/74 Pulse 70 Temp 36.2 ??C (97.2 ??F) Resp 9 Ht 160 cm (5' 3 ) Wt 61.2 kg (135 lb) SpO2 99% BMI 23.91 kg/m?? * Anesthesia Procedure Notes - Geno Story CRNA - 11/11/2018 9:29 AM CDT Associated Order(s): Airway Airway Patient location: OR Urgency: elective Indications for airway management: anesthesia Difficult airway: no Staff: Supervising provider: Tian Freire MD Placed by: PHYSICIAN OFFICE SPECIALIST: Geno Story CRNA Emergent airway documentation: Risks and benefits discussed: yes Consent obtained: yes Consent given by: patient Airway prep: Preoxygenated: yes Patient position: sniffing Mask difficulty assessment: 1 - vent by mask Spontaneous ventilation during airway: absent Sedation level during airway: GA Final airway details: Final airway type: supraglottic airway Final supraglottic airway: IGel SGA size: 4 Number of attempts: 1 Ventilation between attempts: BVM * Anesthesia Preprocedure Evaluation - Tian Freire MD - 11/11/2018 8:15 AM CDT Anesthesia Evaluation Yesika Denney is a 58 y.o. female Procedure(s): Hysteroscopy POLYPECTOMY DILATION AND CURETTAGE Pre-Op Diagnosis Codes: * Postmenopausal bleeding [N95.0] HISTORY Past Medical History Information obtained from: patient and chart. Neurological + CVA/Stroke Cardiovascular + Hypertension Endocrine / Other + Cancer history + Rheumatological disease Patient Active Problem List Diagnosis ??? Cerebral [...] Headache ??? Visual discomfort ??? Postmenopausal bleeding Past Medical History: Diagnosis Date ??? Benign left breast lump 06/2002 biopsy showed fibrosis and hyperplasia ??? Brain aneurysm ??? Brain aneurysm Followed by Dr. Ch[place]ine: [...] 1997 Dr. Demetris Aguilar ??? TONSILLECTOMY 1982 OB History 3 Para 3 Term 3 AB Living 3 SAB TAB Ectopic Multiple Live Births [address] history: 3 para 3, 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 No history fertility medications. She used oral contraceptives in the past. One does progesterone 08/2014. She experienced menopause approximately age 53. Allergies Allergen Reactions ??? Adhesive Hives ??? Adhesive Tape-Silicones Rash ??? Cyclizine Other (See comments) and Hallucinations Reaction: Urinary retention ??? Codeine Unknown tachycardia tachycardia, tachycardia HOME MEDICATIONS : FLUoxetine (PROzac) 20 mg capsule folic acid (FOLVITE) 1 mg tablet hydroxychloroquine (PLAQUENIL) 200 mg tablet ibuprofen (ADVIL,MOTRIN) 400 mg tablet lisinopril (PRINIVIL,ZESTRIL) 20 mg tablet melatonin 5 mg tablet methotrexate 2.5 mg tablet cwkteufcyfat-pbi-KA-ginkgo (ONE DAILY WOMEN 50 PLUS) 400-120 mcg-mg tablet sulfaSALAzine EN (AZULFIDINE EN) 500 mg EC tablet valACYclovir (VALTREX) 500 mg tablet Current Facility-Administered Medications: ??? acetaminophen (TYLENOL) tablet 1,000 mg, 1,000 mg, oral, Once ??? dexamethasone (DECADRON) 4 mg/mL injection 4 mg, 4 mg, intravenous, Once ??? Lactated Ringer's (LR) infusion, 30 mL/hr, intravenous, Continuous ??? Lactated Ringer's (LR) infusion, 125 mL/hr, intravenous, Continuous ??? sodium chloride 0.9% flush 0.5-20 mL, 0.5-20 mL, intra-catheter, PRN ??? sodium chloride 0.9% flush 0.5-20 mL, 0.5-20 mL, intra-catheter, PRN Social History Tobacco Use Smoking Status Never Smoker Smokeless Tobacco Never Used Substance and Sexual Activity Alcohol Use No [...] problems) Maternal Grandfather ??? Rheum arthritis Sister PAT Physical Exam Airway Exam: Mallampati: II Cardiovascular Exam: Rate: regular Rhythm: regular Pulmonary Exam: LCTA, bilat Vitals: 11/11/18 0805 11/11/18 0810 11/11/18 0815 BP: 110/74 Pulse: 62 64 63 Resp: 10 15 12 Temp: SpO2: 98% 95% 99% PT: No results found for requested labs within last 720 hours. INR: No results found for requested labs within last 720 hours. APTT: No results found for requested labs within last 720 hours. Hgb A1C: No results found for requested labs within last 720 hours. CBC RBC: 10/12/2018: 3.87 x10E6/uL RDW: 10/12/2018: 13.1 % MCHC: 10/12/2018: 35.0 g/dL MCH: 10/12/2018: 33.9 pg* MCV: 10/12/2018: 97 fL Hct: 10/12/2018: 37.4 % Hgb: 10/12/2018: 13.1 g/dL WBC: 10/12/2018: 4.8 x10E3/uL MPV: No results found for requested labs within last 720 hours. Platelets: 10/12/2018: 221 x10E3/uL RDW CV: No results found for requested labs within last 720 hours. RDW Sd: No results found for requested labs within last 720 hours. BMP Glucose: 10/12/2018: 88 mg/dL Calcium: 10/12/2018: 9.5 mg/dL Sodium: 10/12/2018: 140 mmol/L Potassium: No results found for requested labs within last 720 hours. CO2: 10/12/2018: 26 mmol/L Chloride: 10/12/2018: 100 mmol/L BUN: 10/12/2018: 12 mg/dL Creatinine: 10/12/2018: 0.72 mg/dL DOS Physical Exam Medical history, medications, and allergies reviewed. Attestation: This PAT evaluation 11/11/2018. Airway Exam: Mallampati: II Cervical ROM: FROM TM distance: 3 Jaw ROM: full Cardiovascular Exam: Rate: regular Rhythm: regular Pulmonary Exam: LCTA, bilat EENT Exam: trachea midline Dental Exam: Appears intact Skin Exam: Skin is warm. Turgor is normal. Current state: Patient's current state is cooperative. Anesthesia Plan ASA 2 My patient is approved for the Anesthesia Controlled Medication protocol when under care of a PHYSICIAN OFFICE SPECIALIST Planned anesthesia: General Team communication plan: LMA Induction: Induction: intravenous. Postoperative Plan: Patient's planned disposition post procedure is Outpatient. Informed Consent: Discussed plan with PHYSICIAN OFFICE SPECIALIST. Anesthesia plan and risks discussed with patient. [...] Procedure Name Priority Date/Time Associated Diagnosis Comments LA AN PROCEDURE PLACEHOLDER Routine 11/11/2018 9:29 AM CDT Procedure Note - Geno Story CRNA - 11/11/2018 9:29 AM CDTThis note is in progress. Airway Patient location: OR Urgency: elective Indications for airway management: anesthesia Difficult airway: no Staff: Supervising provider: Tian Freire MD Placed by: PHYSICIAN OFFICE SPECIALIST: Geno Story CRNA Emergent airway documentation: Risks and benefits discussed: yes Consent obtained: yes Consent given by: patient Airway prep: Preoxygenated: yes Patient position: sniffing Mask difficulty assessment: 1 - vent by mask Spontaneous ventilation during airway: absent Sedation level during airway: GA Final airway details: Final airway type: supraglottic airway Final supraglottic airway: IGel SGA size: 4 Number of attempts: 1 Ventilation between attempts: BVM LA AN ELECTIVE SUPRAGLOTTIC AIRWAY Routine 11/11/2018 9:29 AM CDT Procedure Note - Geno Story CRNA - 11/11/2018 9:29 AM CDTThis note is in progress. Airway Patient location: OR Urgency: elective Indications for airway management: anesthesia Difficult airway: no Staff: Supervising provider: Tian Freire MD Placed by: PHYSICIAN OFFICE SPECIALIST: Geno Story CRNA Emergent airway documentation: Risks and benefits discussed: yes Consent obtained: yes Consent given by: patient Airway prep: Preoxygenated: yes Patient position: sniffing Mask difficulty assessment: 1 - vent by mask Spontaneous ventilation during airway: absent Sedation level during airway: GA Final airway details: Final airway type: supraglottic airway Final supraglottic airway: IGel SGA size: 4 Number of attempts: 1 Ventilation between attempts: BVM documented in this encounter Visit Diagnoses Not on filedocumented in this encounter Administered Medications Inactive Administered Medications - up to 3 most recent administrations Medication Order MAR Action Action Date Dose Rate Site dexamethasone (DECADRON) 4 mg/mL injection 4 mg 4 mg, intravenous, Administer [...] minutes., Indications: Prevention of Post-Operative Nausea and VomitingIndications:Prevention of Post-Operative Nausea and Vomiting Given 11/11/2018 9:39 AM CDT 4 mg famotidine (PEPCID) injection Administer over 2 Minutes, As needed, Starting on Leny 11/11/18 at 0939, Anesthesia Intra-op Given 11/11/2018 9:39 AM CDT 20 mg fentaNYL (SUBLIMAZE) preservative free injection intravenous, As needed, Starting on Leny 11/11/18 at 0927, Anesthesia Intra-op Given 11/11/2018 10:08 AM CDT 25 mcg Given 11/11/2018 9:27 AM CDT 25 mcg ketorolac (TORADOL) injection As needed, Starting on Leny 11/11/18 at 0955, Anesthesia Intra-op Given 11/11/2018 9:55 AM CDT 30 mg Lactated Ringer's (LR) infusion 125 mL/hr, intravenous, Continuous, Starting on Leny 11/11/18 at 0845, Pre-Op, May discontinue when discharge criteria met. Rate/Dose Verify 11/11/2018 9:15 AM CDT New Bag 11/11/2018 8:41 AM CDT 125 mL/hr 125 mL/hr lidocaine PF (XYLOCAINE) 10 mg/mL (1 %) preservative free injection As needed, Starting on Leny 11/11/18 at 0927, Anesthesia Intra-op Given 11/11/2018 9:27 AM CDT 70 mg ondansetron (ZOFRAN) injection intravenous, Administer over 2 Minutes, As needed, Starting on Leny 11/11/18 at 0955, Anesthesia Intra-op Given 11/11/2018 9:55 AM CDT 4 mg phenylephrine (JUANIS-SYNEPHRINE) 0.5 mg/5 mL (100 mcg/mL) in sodium chloride 0.9% (premix) intravenous, As needed, Starting on Leny 11/11/18 at 0941, Anesthesia Intra-op Given 11/11/2018 9:41 AM CDT 50 mcg propofol (DIPRIVAN) IV intravenous, As needed, Starting on Leny 11/11/18 at 0927, Anesthesia Intra-op Given 11/11/2018 9:33 AM CDT 40 mg Given 11/11/2018 9:31 AM CDT 30 mg Given 11/11/2018 9:27 AM CDT 110 mg documented in this encounter Orders Procedures Count Last Ordered Date First Orde red Date Airway 1 11/11/2018 documented in this encounter Care Teams Junior Account Executive Relationship Specialty Start Date End Date Mark Cerna DO PCP - General 09/04/16 01/17/19 Erica Rodrigues MD [address] [facility] [address] [place] [address] Radiation Oncologist Radiation Oncology 10/25/18 Gasper Kaba MD [address] [place] [address] Surgeon Surgical Oncology 10/25/18 Brandy Aguirre CNS [address] [place] [address] Nurse Practitioner Certified Clinical Nurse Specialist 10/25/18 Jo-Ann Morrow, PhD [address] [place] [address] Nurse Practitioner Radiation Oncology 10/25/18 Christina Louis MUD MIXER [address] [place] [address] Nurse Practitioner Medical Oncology 10/25/18 documented as of this encounter
--- OUTSIDE RECORDS SUMMARY | 2024-04-24 05:57 | XMS_ITS | Encounter Summary ---
Author Organization [facility] Address [address] [place] [address] Phone Care Team Providers Care Bale Coverer Name Role Phone Mark Cerna DO Primary Care Provider [phone] Erica Rodrigues MD Unavailable Gasper Kaba MD Unavailable Brandy Aguirre Unavailable [phone] Jo-Ann Morrow PhD Unavailable [phone] Christina Louis TECHNOLOGY ENGINEER Unavailable [phone] Reason for Visit * Reason Comments Follow-up Encounter Details Date Type Department Care Team (Latest Contact Info) Description 11/02/2018 10:15 AM CDT Office Visit [facility] Obstetrics and Gynecology [address] [facility] 1st Floor [address] [place] [address] Ema Keyes MD [facility] [address] [id number] Pap smear abnormality of cervix/human papillomavirus (HPV) positive (Primary Dx); Post-menopause bleeding Social History Tobacco Use Types Packs/Day Years Used Date Smoking Tobacco: Never Smokeless Tobacco: Never Alcohol Use Standard Drinks/Week Comments No 0 (1 standard drink = 0.6 oz pur e alcohol) Comments No Sex and Gender Information Value Date Recorded Sex Assigned at Not on file 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 Gender Identity Not on file Sexual Orientation Not on file 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 Not on file Not on file Not on file documented as of this encounter Last Filed Vital Signs Vital Sign Reading Time Taken Comments Blood Pressure 109/75 11/02/2018 10:35 AM CDT Pulse 87 11/02/2018 10:35 AM CDT Temperature - - Respiratory Rate - - Oxygen Saturation - - Inhaled Oxygen Concentration - - Weight 62.6 kg (138 lb) 11/02/2018 10:35 AM CDT Height 160 cm (5' 3 ) 11/02/2018 10:35 AM CDT Body Mass Index 24.45 11/02/2018 10:35 AM CDT documented in this encounter Progress Notes * Ema Keyes MD - 11/02/2018 10:15 AM CDT BARGE MASTER visit note Chief Complaint: Chief Complaint Follow-up Subjective: Yesika Denney is a 58 y.o. year old female [...] history. Personal history of breast cancer--Stage I ER/TN pos invasive ductal carcinoma. S/p right lumpectomy/ [...] Term Living 3 Term Living Obstetric Comments [place] Joiner history: 3 para 3, 1st term age [...] education level: None Occupational History ??? 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 Financial resource strain: [...] on phone: None Gets together: None Attends holiness service: None Active member of club or [...] a week, Disp: 96 tablet,Rfl: 1 ??? qfggzwaotkle-sku-CZ-ginkgo (ONE DAILY WOMEN 50 PLUS) 400-120 mcg-mg [...] discharge in vault. Moderate atrophy. 11/02/2018 Yesika Denney 1960 Procedure: Endometrial biopsy Indication: Postmenopausal bleeding Cervix Prepped with: Betadine Tenaculum Applied: Yes Os dilated: No Uterus: midposition Endocervical curettage performed: No Endometrial biopsy performed with adequate specimen obtained. Complications: None Tenaculum site was noted to be hemostatic after direct pressure Post procedure instructions reviewed and information sheet given Specimen to pathology. Assessment and Plan: Yesika Denney is a 58 y.o. female here for [...] Keyes MD 11/02/2018 documented in this encounter Plan of Treatment Not on file documented as of this encounter Results * Surgical pathology (11/02/2018 12:00 AM CDT) Tissue 11/02/2018 11/03/2018 Narrative [facility] - 11/04/2018 6:32 PM CDT Results in EPIC best viewed via PDF link [facility] Pathology Services [address] [place] [address] SURGICAL PATHOLOGY REPORT FINAL Patient Name: ??YESIKA DENNEY Address: ??[address] [place], [place] ??[address] Gender: ??F : ??1960 (Age: 58) Service: ??[facility] Location: ??[facility] Hospital #: ??[id number] Accession #: ? [id number] Taken: ? 11/02/2018 Received: ? 11/03/2018 Accessioned: ? 11/03/2018 Reported: ? 11/04/2018 Physician(s): ? Ema Keyes M.D. Diagnosis: Endometrium, biopsy ? - Blood and very scant superficial epithelium (see comment) 11/04/2018 09:47 By this signature, I attest that the above diagnosis is based upon my personal examination of the slides(and/or other material indicated in the diagnosis). Manolo Mendoza M.D., Ph.D. Report Electronically Reviewed and Signed Out By Manolo Mendoza M.D., Ph.D. 11/04/2018 18:32:33 Microscopic Description and Comment: Microscopic examination substantiates the diagnosis. Some of the epithelium is derived from the endocervix. Some other fragments may be either endocervical or endometrial, but the endometrium is overall not well represented. Repeat sampling may be considered if clinically indicated. History: The patient is a 58 year old woman with postmenopausal bleeding. ??Operative procedure: ??Endometrial biopsy. Specimen(s) Received: A: Endometrium Gross Description: The specimen is received in a formalin-filled container labeled Yesika Denney and EMBX. ??It contains multiple fragments of trejo and hemorrhagic tissue measuring 2.5 x 0.5 x 0.1 cm in aggregate. ??Labeled A1. ??Jar 0. Tea Toney ??aw11/03/2018 15:57 Pathology services are provided by the Department of Pathology and Immunology at [facility], [address] [place], [place] [address] [place] [address] CLIA # [id number] The performance characteristics of the testing cited in this report (if any) were determined by the ??[facility] Department of Pathology and Immunology [facility], as part of an ongoing quality assurance clerk program and in compliance with federally mandated regulations drawn from the Clinical Laboratory Improvement Act of 1988 (CLIA '88). ??Some of these tests rely on the use of analyte specific reagents (ASR) and are subject to specific labeling requirements by the US Food and Drug Administration. ??Such diagnostic tests may only be performed in a facility that is certified by the Department of Health and Human Services as a high complexity laboratory under CLIA '88. ??The FDA has determined that such clearance or approval is not necessary. ??ASRs should not be regarded as investigational or for research. ??ASRs were developed and the performance characteristics determined by the [facility], [facility] Department of Pathology and Immunology. ??It has not been cleared or approved by the U.S. Food and Drug Administration. ??Any test designated as LDT was developed and its performance characteristics determined by [facility]. It has not been cleared or approved by the FDA. This test is used for clinical purposes and should not be regarded as investigational or for research. Ema Keyes MD LAB PATHOLOGY ORDERABLES Final Result Performing Organization Address [facility]/State/[facility] Co de Phone Number [facility] [address] [address] documented in this encounter Visit Diagnoses Diagnosis Pap smear abnormality of cervix/human papillomavirus (HPV) positive- Primary Other abnormal Papanicolaou smear of cervix and cervical HPV Post-menopause bleeding Postmenopausal bleeding documented in this encounter Care Teams Bale Coverer Relationship Specialty Start Date End Date Mark Cerna DO PCP - General 09/04/16 01/17/19 Erica Rodrigues MD [address] [facility] [address] [place] [address] Radiation Oncologist Radiation Oncology 10/25/18 Gasper Kaba MD [address] [place] [address] Surgeon Surgical Oncology 10/25/18 Brandy Aguirre, CARINA [address] [place] [address] Nurse Practitioner Certified Clinical Nurse Specialist 10/25/18 Jo-Ann Morrow, PhD [address] [place] [address] Nurse Practitioner Radiation Oncology 10/25/18 Christina Louis TECHNOLOGY ENGINEER [address] [place] [address] Nurse Practitioner Medical Oncology 10/25/18 documented as of this encounter
--- OUTSIDE RECORDS SUMMARY | 2024-04-24 05:57 | XMS_ITS | Encounter Summary ---
Author Organization [facility] Address [address] [place] [address] Phone Care Team Providers Care Credit Resolution Representative Name Role Phone Mark Cerna DO Primary Care Provider [phone]- [phone] Encounter Details Date Type Department Care Team (Late st Contact Info) Description 02/15/2018 Orders Only [facility] Oncology [address] [facility] Advanced Medicine 7th [place] [address] [place] [address] Harpal Calix MD [address] [place] [address] [address] History of breast cancer (Primary Dx) Social History Tobacco Use Types Packs/Day Years Used Date Smoking Tobacco: Never Smokeless Tobacco: Never Alcohol Use Standard Drinks/Week Comments No 0 (1 standard drink = 0.6 oz pur e alcohol) Comments No Sex and Gender Information Value Date Recorded Sex Assigned at Not on file 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
--- OUTSIDE RECORDS SUMMARY | 2024-04-24 05:57 | XMS_ITS | Encounter Summary ---
Author Organization [facility] Address [address] [facility] [address] [place] [address] Care Team Providers Care Architectural Design Lecturer Name Role Phone Mark Cerna DO Primary Care Provider +1- [phone] Encounter Details Date Type Department Care Team (Late st Contact Info) Description 12/03/2017 Orders Only [facility] INTERFACE [address] Mark Martinez MD [address] [place] [address] Social History Tobacco Use Types Packs/Day Years Used Date Smoking Tobacco: Never Smokeless Tobacco: Never Comments Unknown Sex and Gender Information Value Date Recorded Sex Assigned at Not on file Legal Sex Female 3:42 AM SUPERVISOR CHASSIS ASSEMBLY Gender Identity Not on file Sexual Orientation Not on file documented as of this encounter Plan of Treatment Not on file documented as of this encounter Procedures Procedure Name Priority Date/Time Associated Diagnosis Comments HLA DISEASE ASSOCIATION B 27 Routine 12/03/2017 5:27 PM CDT documented in this encounter Results * HLA disease association B 27 (12/03/2017 5:27 PM CDT) HLA-B27 interp HLA-B*27 is Negative. HISTOTRAC 12/03/2017 5:27 PM CDT 12/09/2017 6:38 AM CDT Narrative HISTOTRAC - 12/09/2017 6:38 AM CDT HLA-B typing is performed using the reverse sequence specific oligonucleotide (r-SSO) method, which is based on an FDA approved IVD kit and validated by the [facility] HLA laboratory. Interpretive comments: HLA-B*27 positivity confers increased risk for ankylosing spondylitis or nonradiographic axial spondyloarthritis. The absence of HLA-B*27 may help rule out these diagnoses Expected: ??HLA-B*27 has been found in 74% to 89% of patients with either nonradiographic axial spondyloarthritis or ankylosing spondylitis. The absolute risk of spondyloarthritis in persons with HLA-B*27 is 2% to 10%. (N Engl J Med 2016;374:2563-74) Testing performed at the [facility], [address] [place] [address], 5th floor, [place], [address]. [place] # [id number]. Kevin Altamirano M.D., Ph D., HLA Overlock Operator Janusz Olson M.D., Instructional Support Services Director, [facility] Current methodology and interpretive comments were last revised on 11/03/2016 us Mark Martinez MD LAB BLOOD ORDERABLES Final Res ult HISTOTRAC documented in this encounter Visit Diagnoses Not on filedocumented in this encounter Care Teams Architectural Design Lecturer Relationship Specialty Start Date End Date Mark Cerna DO PCP - General 09/04/16 01/17/19 documented as of this encounter
--- OUTSIDE RECORDS SUMMARY | 2024-04-24 05:57 | XMS_ITS | Encounter Summary ---
Author Organization [facility] Address [address] [place] [address] Care Team Providers Care Pulp Maker Name Role Phone Mark Cerna DO Primary Care Provider +1- [phone] Encounter Details Date Type Department Care Team (Late st Contact Info) Description 03/16/2018 11:15 AM FRACTIONATION PLANT SUPERVISOR Lab [address] [address] Rheumatoid 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 (CMS/HCC) Social History Tobacco Use Types Packs/Day Years Used Date Smoking Tobacco: Never Smokeless Tobacco: Never Alcohol Use Standard Drinks/Week Comments No 0 (1 standard drink = 0.6 oz pur e alcohol) Comments No Sex and Gender Information Value Date Recorded Sex Assigned at Not on file Legal Sex Female 3:42 AM FRACTIONATION PLANT SUPERVISOR Gender Identity Not on file Sexual Orientation Not on file documented as of this encounter Plan of Treatment Not on file documented as of this encounter Procedures Procedure Name Priority Date/Time Associated Diagnosis Comments ERYTHROCYTE SEDIMENTATION RATE Routine 03/16/2018 9:00 AM FRACTIONATION PLANT SUPERVISOR Rheumatoid 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 (CMS/HCC) CRP (ACUTE PHASE) Routine 03/16/2018 9:0 0 AM FRACTIONATION PLANT SUPERVISOR Rheumatoid 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 (CMS/HCC) documented in this encounter Results * CRP (acute phase) (03/16/2018 9:00 AM FRACTIONATION PLANT SUPERVISOR) CRP 1.9 <=10.0 mg/L [facility] Blood specimen (specimen) 03/16/2018 9:00 AM FRACTIONATION PLANT SUPERVISOR 03/16/2018 11:19 AM FRACTIONATION PLANT SUPERVISOR Narrative KATHY REYNA - 03/16/2018 12:02 PM FRACTIONATION PLANT SUPERVISOR us Patricia Martinez MD LAB BLOOD ORDERABLES Final R esult Performing Organization Address City/[facility]/ZIP Co de Phone Number [facility] [place] [address] * Erythrocyte sedimentation rate (03/16/2018 9:00 AM FRACTIONATION PLANT SUPERVISOR) Erythrocyte sedimentation rate 6 1 - 30 mm/hr [facility] Blood specimen (specimen) 03/16/2018 9:00 AM FRACTIONATION PLANT SUPERVISOR 03/16/2018 11:19 AM FRACTIONATION PLANT SUPERVISOR Narrative KATHY [facility] - 03/16/2018 12:02 PM FRACTIONATION PLANT SUPERVISOR us Patricia Martinez MD LAB BLOOD ORDERABLES Final R esult Performing Organization Address [facility] [place] [address] documented in this encounter Visit Diagnoses Diagnosis Rheumatoid 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 (CMS/HCC) (HCC) documented in this encounter Care Teams Pulp Maker Relationship Specialty Start Date End Date Mark Cerna DO PCP - General 09/04/16 01/17/19 documented as of this encounter
--- OUTSIDE RECORDS SUMMARY | 2024-04-24 05:57 | XMS_ITS | Encounter Summary ---
Author Organization [facility] Address [address] [place] [address] Phone Care Team Providers Care Mexican Food Cook Name Role Phone Mark Cerna DO Primary Care Provider +1- [phone] Reason for Referral * Diagnostic Imaging (Routine) - Closed Specialty Diagnoses / Procedures Referred By Niranjan farrell Referred To Contact Radiology Diagnoses Diplopia Procedures MRI Brain W WO Contrast Patricia Martinez MD Phone: tel: fax: [address] [address] Referral ID Status Reason Start Date Expiration Date Visits Re quested Visits Authorized [id number] Closed 03/22/2018 05/06/2018 1 1 ALING OVEN OPERATOR Encounter Details Date Type Department Care Team (Late st Contact Info) Description 03/16/2018 8:20 AM ANNEALING OVEN OPERATOR Office Visit [facility] Rheumatology [address] [facility] Advanced Medicine 5th [place] [address] [place] [address] Patricia Martinez MD [address] [place] [address] Rheumatoid 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 (CMS/HCC) (Primary Dx); Diplopia Social History Tobacco Use Types Packs/Day Years Used Date Smoking Tobacco: Never Smokeless Tobacco: Never Alcohol Use Standard Drinks/Week Comments No 0 (1 standard drink = 0.6 oz pur e alcohol) Comments No Sex and Gender Information Value Date Recorded Sex Assigned at Not on file Legal Sex Female 3:42 AM ANNEALING OVEN OPERATOR Gender Identity Not on file Sexual Orientation Not on file documented as of this encounter Last Filed Vital Signs Vital Sign Reading Time Taken Comments Blood Pressure 130/89 03/16/2018 8:27 AM ANNEALING OVEN OPERATOR Pulse 98 03/16/2018 8:27 AM ANNEALING OVEN OPERATOR Temperature 36.7 ??C (98 ??F) 03/16/2018 8:27 AM ANNEALING OVEN OPERATOR Respiratory Rate - - Oxygen Saturation - - Inhaled Oxygen Concentration - - Weight 64.1 kg (141 lb 6.4 oz) 03/16/2018 8:27 A M ANNEALING OVEN OPERATOR Height 160 cm (5' 3 ) 03/16/2018 8:27 AM ANNEALING OVEN OPERATOR Body Mass Index 25.05 03/16/2018 8:27 AM ANNEALING OVEN OPERATOR documented in this encounter Progress Notes * Patricia Martinez MD - 03/16/2018 8:20 AM CST 03/16/2018 HISTORY OF PRESENT ILLNESS: Yesika Denney is a 57 y.o.year old female returns today for a follow up for 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 She is currently managed on methotrexate 20 mg weekly plus sulfasalazine 500 mg b.i.d. Plus hydroxychloroquine 200 mg daily. Since the last visit, patient reports Am stiffness of secs. Pain is reported in the following joints:none The patient has not experienced any interval infections. Interval health history is episode of diplopia that secs on 03/06.The day before she has some mild vertigo with imbalance. The she may have had some low-grade headache for a short period of time afterwards. She has remotely had 1 prior episode of vertigo but hasnever had diplopia before. She states it happened so quickly that she did not think to close 1 eye to see if it was different in 1 eye versus the other. She plans to travel to [place] tomorrow. She denies any dysesthesias or weakness. She does not take a baby aspirin on a regular basis. She does have a history of migraines. She also states she has a history of a cerebral arterial aneurysm. She did see her wire saw operator following this event and they saw no it ocular pathology. DISEASE TREATMENT HISTORY ALLERGIES: Allergies Allergen Reactions ??? Adhesive Hives ??? Adhesive Tape-Silicones Rash ??? Cyclizine Other (See comments) and Hallucinations Reaction: Urinary retention CURRENT MEDICATION: Current Outpatient Prescriptions: ??? FLUoxetine (PROzac) 20 [...] WEEKLY, Disp: 96 tablet, Rfl: 1 ??? wrmqwuzjakvd-fgw-SP-ginkgo (ONE DAILY WOMEN 50 PLUS) 400-120 mcg-mg tablet, daily., Disp: , Rfl: ??? predniSONE (DELTASONE) 10 mg tablet, Take 1 tablet (10 mg total) by mouth daily. (Patient taking differently: Take 10 mg by mouth as needed. ), Disp: 30 tablet, Rfl: 2 ??? sulfaSALAzine EN (AZULFIDINE EN) 500 mg EC tablet, TAKE 1 TABLET TWICE A DAY, Disp: , Rfl: ??? valACYclovir (VALTREX) 500 mg tablet, daily., Disp: , Rfl: REVIEW OF SYSTEMS: All other systems are negative PHYSICAL EXAM: Vitals BP 130/89 (BP Location: Left arm, Patient Position: Sitting) Pulse 98 Temp 36.7 ??C (98 ??F) Ht 160 cm (5' 3 ) Wt 64.1 kg (141 lb 6.4 oz) BMI 25.05 kg/m?? Physical Exam Pleasant white female Extraocular muscles are intact Carotid arteries without bruit Lungs are clear Cardiac exam S1-S2 without murmurs gallops or rubs No peripheral edema Neurologic exam nonfocal Musculoskeletal examination reveals no tenderness or swelling in the standard 28 joint count LABORATORY DATA: Laboratory review: Chemistry CMP: Lab Results Component Value Date ALBUMIN 4.6 12/03/2017 ALBUMIN 4.6 06/25/2017 BUNSER 14 06/25/2017 CALCIUM 9.2 12/03/2017 CALCIUM 9.1 06/25/2017 CO2 25 12/03/2017 CO2 32 06/25/2017 CHLORIDE 107 06/25/2017 CREATININE 0.65 12/03/2017 CREATININE 0.82 06/25/2017 GLUCOSE 82 12/03/2017 GLUCOSE 85 06/25/2017 POTASSIUM 4.2 06/25/2017 SODIUM 141 06/25/2017 BILITOT 0.22 12/03/2017 BILITOT 0.3 06/25/2017 PROTEIN 6.7 01/31/2016 PROT 6.9 12/03/2017 PROT 6.7 06/25/2017 ALT 17 12/03/2017 ALT 25 06/25/2017 AST 23 12/03/2017 AST 25 06/25/2017 ALKPHOS 53 12/03/2017 ALKPHOS 40 06/25/2017 , CBC: Lab Results Component Value Date WBC 4.1 12/03/2017 WBC 3.9 06/25/2017 RBC 3.81 12/03/2017 RBC 3.86 (L) 06/25/2017 HGB 13.1 12/03/2017 HGB 12.8 06/25/2017 HCT 39.5 12/03/2017 HCT 38.6 06/25/2017 MCV 103.6 (H) 12/03/2017 MCV 100.2 (H) 06/25/2017 MCH 34.2 (H) 12/03/2017 MCH 33.3 06/25/2017 MCHC 33.0 12/03/2017 MCHC 33.2 06/25/2017 RDW 13.6 12/03/2017 RDW 14.0 06/25/2017 MPV 9.1 12/03/2017 MPV 8.1 06/25/2017 NRBC 0.0 06/25/2017 NRBCABS 0.00 06/25/2017 NRBCPCT 0.0 12/03/2017 Lab Results Component Value Date SEDRATE 6 03/16/2018 CRP 1.9 03/16/2018 IMAGING: No images are attached to the encounter. ASSESSMENT AND PLAN: Problem List Items Addressed This Visit Rheumatology Problems Rheumatoid arthritis (CMS/HCC) - Primary Clinically she has low disease activity today. 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 Her neurologic examination isreassuring. Given her history of cerebral aneurysm I recommend that we obtain an MRI as well as carotid Dopplers. She will follow up with her primary care physician has if this is recurrent. I recommended 81 mg aspirin in the interim. Relevant Orders MRI Brain W WO Contrast ALING OVEN OPERATOR documented in this encounter Miscellaneous Notes * Assessment & Plan Note - Patricia Martinez MD - 03/16/2018 12:44 PM ANNEALING OVEN OPERATOR Associated Problem(s): Rheumatoid arthritis with negative rheumatoid factor (HCC) Clinically she has low disease activity today. 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 Her neurologic examination isreassuring. Given her history of cerebral aneurysm I recommend that we obtain an MRI as well as carotid Dopplers. She will follow up with her primary care physician has if this is recurrent. I recommended 81 mg aspirin in the interim. ALING OVEN OPERATOR ALING OVEN OPERATOR documented in this encounter Plan of Treatment Not on file documented as of this encounter Results * MRI Brain W WO Contrast (03/29/2018 5:50 PM ANNEALING OVEN OPERATOR) Anatomical Region Laterality Modality Head and Neck N/A Magnetic Resonan ce 03/29/2018 9:45 PM ANNEALING OVEN OPERATOR Impressions 03/29/2018 10:27 PM ANNEALING OVEN OPERATOR 1. 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 2. ??Minimal white matter changes; similar to previous exam. 3. ??Otherwise normal MRI brain with and without gadolinium. Electronically signed by: Janusz Blackwell Jr., M.D. Narrative 03/29/2018 10:27 PM ANNEALING OVEN OPERATOR MRI BRAIN W WO CONTRAST HISTORY: ??Follow-up [...] Electronically signed by: Janusz Blackwell Jr., M.D. us Patricia Martinez MD IMG MRI PROCEDURES Final Res ult * (ABNORMAL) CBC with auto differential (03/16/2018 9:14 AM ANNEALING OVEN OPERATOR) White Blood Count 4.7 3.6 - 11.2 [...] [facility] Blood specimen (specimen) 03/16/2018 9:14 AM ANNEALING OVEN OPERATOR 03/16/2018 10:28 AM ANNEALING OVEN OPERATOR us Patricia Martinez MD LAB BLOOD ORDERABLES Final R esult [facility] * Comprehensive metabolic panel (03/16/2018 9:14 AM ANNEALING OVEN OPERATOR) Total Protein 6.7 6.1 - 8.4 g/dL [...] = PROVISIONAL DIAGNOSIS OF DIABETES eGFR NON-AFR. UKRAINIAN 88.5 >60.0 mL/min/1.7 3 m2 [facility] eGFR >90.0 >60.0 mL/min/1.7 3 m2 [facility] Blood specimen (specimen) 03/16/2018 9:14 AM ANNEALING OVEN OPERATOR 03/16/2018 10:28 AM ANNEALING OVEN OPERATOR us Patricia Martinez MD LAB BLOOD ORDERABLES Final R esult [facility] * Erythrocyte sedimentation rate (03/16/2018 9:00 AM ANNEALING OVEN OPERATOR) Erythrocyte sedimentation rate 6 1 - 30 mm/hr [facility] Blood specimen (specimen) 03/16/2018 9:00 AM ANNEALING OVEN OPERATOR 03/16/2018 11:19 AM ANNEALING OVEN OPERATOR Narrative [facility] - 03/16/2018 12:02 PM ANNEALING OVEN OPERATOR Particia Martinez MD LAB BLOOD ORDERABLES Final R esult Performing Organization Address [facility] Co de Phone Number [facility] Department [place] [address] * CRP (acute phase) (03/16/2018 9:00 AM ANNEALING OVEN OPERATOR) CRP 1.9 <=10.0 mg/L [facility] Blood specimen (specimen) 03/16/2018 9:00 AM ANNEALING OVEN OPERATOR 03/16/2018 11:19 AM ANNEALING OVEN OPERATOR Narrative [facility] - 03/16/2018 12:02 PM ANNEALING OVEN OPERATOR Patricia Martinez MD LAB BLOOD ORDERABLES Final R esult Performing Organization Address City/[facility]/ZIP Co de Phone Number [facility] Department [place] [address] documented in this encounter Visit Diagnoses Diagnosis Rheumatoid 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 (CMS/HCC) (HCC)- Primary Diplopia Rheumatoid 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 (CMS/[facility]) ([facility]) Diplopia documented in this encounter Orders Immunization/Injection Count Last Ordered Date First Ordered Date FLU VACCINE MDCK QUAD PF 4Y+ IM - FLUCELVAX 1 03/16/2018 documented in this encounter Care Teams Mexican Food Cook Relationship Specialty Start Date End Date Mark Cerna DO PCP - General 09/04/16 01/17/19 documented as of this encounter
--- OUTSIDE RECORDS SUMMARY | 2024-04-24 05:57 | XMS_ITS | Encounter Summary ---
Author Organization [facility] Address [address] [place] [address] Phone Care Team Providers Care Substance Abuse Prevention Coordinator Name Role Phone Mark Cerna DO Primary Care Provider [phone] Encounter Details Date Type Department Care Team (Late st Contact Info) Description 12/01/[address] [facility] [address] [facility] 5th [place] [address] [place] [address] Naz Gaitan CMA Social History Tobacco Use Types Packs/Day Years Used Date Smoking Tobacco: Never Comments Unknown Sex and Gender Information Value Date Recorded Sex Assigned at Not on file Legal Sex Female 3:42 AM TERRITORY OUTSIDE SALES MANAGER Gender Identity Not on file Sexual Orientation Not on file documented as of this encounter Plan of Treatment Not on file documented as of this encounter Visit Diagnoses Not on filedocumented in this encounter Historical Medications * This list may reflect changes made after this encounter. valACYclovir (VALTREX) 500 mg tablet daily. 01/05/2020 sulfaSALAzine EN (AZULFIDINE EN) 500 mg EC tablet TAKE 1 TABLET TWICE A DAY 03/03/2016 06/10/2018 FLUoxetine (PROzac) 20 mg capsule daily. 04/29/2018 multivitamin-min- FA-ginkgo (ONE DAILY WOMEN 50 PLUS) 400-120 mcg-mg tablet daily. 03/30/2019 methotrexate 2.5 mg tablet TAKE 8 TABLETS ONCE WEEKLY 09/07/2015 02/19/2018 melatonin 5 mg tablet TAKE 1 TABLET BEDTIME 03/30/2019 lisinopril (PRINIVIL,ZESTRIL ) 20 mg tablet daily. 01/18/2019 hydroxychloroquin e (PLAQUENIL) 200 mg tablet daily. 12/27/2015 06/10/2018 folic acid (FOLVITE) 1 mg tablet TAKE 2 TABLETS BY MOUTH DAILY 07/20/2017 01/01/2018 added in this encounter Care Teams Substance Abuse Prevention Coordinator Relationship Specialty Start Date End Date Mark Cerna DO PCP - General 09/04/16 01/17/19 documented as of this encounter
--- OUTSIDE RECORDS SUMMARY | 2024-04-24 05:57 | XMS_ITS | Encounter Summary ---
Author Organization [facility] Address [address] [place] [address] Phone Care Team Providers Care Business Partner Name Role Phone Mark Cerna DO Primary Care Provider [phone] Erica Rodrigues MD Unavailable Gasper Kaba MD Unavailable [phone] Brandy Aguirre Unavailable Jo-Ann Morrow PhD Unavailable [phone] Christina Louis PLASTER FORM MAKER Unavailable Reason for Visit * Reason Onset Date Comments Test Results 11/08/2018 Encounter Details Date Type Department Care Team (Late st Contact Info) Description 11/08/2018 Telephone [facility] Obstetrics and Gynecology [facility] 7th Floor [address] [place] [address] Camryn Neri RN Test Results Social History Tobacco Use Types Packs/Day Years Used Date Smoking Tobacco: Never Smokeless Tobacco: Never Alcohol Use Standard Drinks/Week Comments No 0 (1 standard drink = 0.6 oz pur e alcohol) Comments No Sex and Gender Information Value Date Recorded Sex Assigned at Not on file Legal Sex Female 3:42 AM VESSEL LINER Gender Identity Not on file Sexual Orientation Not on file 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 Had bright red gush of blood after stopping spotting from EMBx. Nothing today. No pain or cramping. She was offered: 1. U/S to assess cavity--had about 1 yr ago which showed small fibroid at that time (uncertain location). 2. Hysteroscopy, D+C and possible polypectomy/myomectomy given persistent bleeding and somewhat poor sampling in the office. Patient electing for a hysteroscopy as next step. She brought up hysterectomy for definitive management but was explained that we need to complete the full work up before considering that step. Of note, the patient reports in her prior ablation/tubal she had the DrScott Told her that there were adhesions in the posterior cul-de-sac so she would not be a vaginal hysterectomy candidate. I sent a prep for case over to Amy. * Telephone Encounter - Camryn Neri RN - 11/08/2018 9:47 AM CDT Calling for results of biopsy. Pt states she had big gush of blood last night with nothing this AM.H/o of breast ca and not on any meds. documented in this encounter Plan of Treatment Not on file documented as of this encounter Visit Diagnoses Not on filedocumented in this encounter Care Teams Business Partner Relationship Specialty Start Date End Date Mark Cerna DO PCP - General 09/04/16 01/17/19 Erica Rodrigues MD [address] [facility] [address] [place] [address] Radiation Oncologist Radiation Oncology 10/25/18 Gasper Kaba MD [address] [place] [address] Surgeon Surgical Oncology 10/25/18 Brandy Aguirre CNS [address] [place] [address] Nurse Practitioner Certified Clinical Nurse Specialist 10/25/18 Jo-Ann Morrow, PhD [address] [place] [address] Nurse Practitioner Radiation Oncology 10/25/18 Christina Louis, PLASTER FORM MAKER [address] [place] [address] Nurse Practitioner Medical Oncology 10/25/18 documented as of this encounter
--- OUTSIDE RECORDS SUMMARY | 2024-04-24 05:57 | XMS_ITS | Encounter Summary ---
Author Organization [facility] Address [address] [place] [address] Phone Care Team Providers Care Polystyrene Molding Machine Tender Name Role Phone Mark Cerna DO Primary Care Provider [phone]- [phone] Reason for Visit * Reason Comments Gynecologic Exam Encounter Details Date Type Department Care Team (Latest Contact Info) Description 07/14/2018 8:45 AM CDT Office Visit [facility] Ob[facility] Gynecology [address] [place] [address] Ema Keyes MD [address] [place] [address] Well woman exam with routine gynecological exam (Primary Dx) Social History Tobacco Use Types Packs/Day Years Used Date Smoking Tobacco: Never Smokeless Tobacco: Never Alcohol Use Standard Drinks/Week Comments No 0 (1 standard drink = 0.6 oz pur e alcohol) Comments No Sex and Gender Information Value Date Recorded Sex Assigned at Not on file 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 Gender Identity Not on file Sexual Orientation Not on file 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 Not on file Not on file Not on file documented as of this encounter Last Filed Vital Signs Vital Sign Reading Time Taken Comments Blood Pressure 134/86 07/14/2018 9:11 AM CDT Pulse 99 07/14/2018 9:11 AM CDT Temperature - - Respiratory Rate - - Oxygen Saturation - - Inhaled Oxygen Concentration - - Weight 63.5 kg (140 lb) 07/14/2018 9:11 AM CDT Height 160 cm (5' 3 ) 07/14/2018 9:11 AM CDT Body Mass Index 24.8 07/14/2018 9:11 AM CDT documented in this encounter Progress Notes * Ema Keyes MD - 07/14/2018 8:45 AM CDT CURVE CLEANER visit note Chief Complaint: Chief Complaint Gynecologic Exam Subjective: Yesika Denney is a 58 y.o. year old female who presents for WWE. She reports since the last visit she continues to have rust colored discharge. Noted only with wiping and only about 5-6 days per month. She was worked up for AUB with an U/S and EMBx due to this in January. History of last pap in January 2018 being normal pap but positive HPV (negative 16/18). They were following q 6 months. Personal history of breast cancer--Stage I ER/IL pos invasive ductal carcinoma. S/p right lumpectomy/ radiation/chemo. Attempted Arimidex but did not tolerate secondary to severe arthritis and thus this was discontinued. She is currently on MTX, Plaquenil, and sulfasalazine. Menstrual History: Menarche Age: 13 years No LMP recorded. Patient is postmenopausal. Period [...] Term Living 3 Term Living Obstetric Comments Curam Developer history: 3 para 3, 1st term [...] left eye ??? History of breast cancer ??? Cervical high risk [...] education level: None Occupational History ??? 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 Financial resource [...] on phone: None Gets together: None Attends mandaeism service: None Active member of club or [...] Hallucinations Reaction: Urinary retention Medications: Current Outpatient Medications: ??? FLUoxetine (PROzac) 20 mg capsule, Take 1 capsule (20 mg total) by mouth daily., Disp: 90 capsule, Rfl: 1 ??? folic acid (FOLVITE) 1 mg tablet, TAKE 2 TABLETS BY MOUTH DAILY, Disp: 180 tablet, Rfl: 3 ??? hydroxychloroquine (PLAQUENIL) 200 mg tablet, TAKE 1 TABLET BY MOUTH DAILY WITH FOOD, Disp: 90 tablet, Rfl: 0 ??? ibuprofen (ADVIL,MOTRIN) 400 mg tablet, Take by mouth., Disp: , Rfl: ??? lisinopril (PRINIVIL,ZESTRIL) 20 mg tablet, daily., Disp: , Rfl: ??? melatonin 5 mg tablet, TAKE 1 TABLET BEDTIME, Disp: , Rfl: ??? methotrexate 2.5 mg tablet, Take 8 tablets (20 mg total) by mouth once a week., Disp: 96 tablet, Rfl: 1 ??? hanvxqcqosvp-gxx-YT-ginkgo (ONE DAILY WOMEN 50 PLUS) 400-120 mcg-mg tablet, daily., Disp: , Rfl: ??? predniSONE (DELTASONE) 10 mg tablet, Take 1 tablet (10 mg total) by mouth daily. (Patient taking differently: Take 10 mg by mouth as needed. ), Disp: 30 tablet, Rfl: 2 ??? sulfaSALAzine EN (AZULFIDINE EN) 500 mg EC tablet, TAKE 1 TABLET BY MOUTH TWICE A DAY, Disp: 180 tablet, Rfl: 0 ??? valACYclovir (VALTREX) 500 [...] systems reviewed and are negative. Objective: BP 134/86 Pulse 99 Ht 160 cm (5' 3 ) Wt 140 lb (63.5 kg) BMI 24.80 kg/m?? Physical Exam Constitutional: She appears well-developed [...] no tenderness and no fullness. Genitourinary Comments: Minimal amount of yellowish discharge in vault. Moderate atrophy. Assessment and Plan: Yesika Denney is a 58 y.o. female here for WWE: 1. Maintenance: --follow up pap in January when 1 yr after last neg, HPV pos. --neg CBE, mammogram [facility] 2 in January 2018 --discussed diet/exercise --DEXA normal from 06/2018 --colonoscopy 2012. 2. Rust colored discharge: --discussed its appearance most consistent with atrophic vaginitis. Given her history of ER pos breast CA, would trial vaginal moisturizer first then consider vagifem or Imvexxy 4 mcg. --previously negative EMBx in January 2018. Ema Kyees MD 07/14/2018 documented in this encounter Plan of Treatment Not on file documented as of this encounter Procedures Procedure Name Priority Date/Time Associated Diagnosis Comments DEXA SCAN Routine 07/07/2018 MAMMOGRAPHY Routine 02/09/2018 PAP SMEAR WITH HPV Routine 12/07/2014 COLONOSCOPY Routine 2010 documented in this encounter Results * DEXA SCAN (07/07/2018) DEXA Scan Normal us Historical Provider HEALTH MAINTENANCE Final Result * MAMMOGRAPHY (02/09/2018) Mammogram Normal us Historical Provider HEALTH MAINTENANCE Final Result * PAP SMEAR WITH HPV (12/07/2014) Pap smear Unknown us Historical Provider HEALTH MAINTENANCE Final Result * COLONOSCOPY (2010) Colonoscopy Unknown us Historical Provider HEALTH MAINTENANCE Final Result documented in this encounter Visit Diagnoses Diagnosis Well woman exam with routine gynecological exam- Primary Routine gynecological examination documented in this encounter Care Teams Polystyrene Molding Machine Tender Relationship Specialty Start Date End Date Mark Cerna DO PCP - General 09/04/16 01/17/19 documented as of this encounter
--- OUTSIDE RECORDS SUMMARY | 2024-04-24 05:57 | XMS_ITS | Encounter Summary ---
Author Organization [facility] Address [address] [place] [address] Phone Care Team Providers Care Hvac Lead Name Role Phone Mark Cerna DO Primary Care Provider [phone]- [phone] Encounter Details Date Type Department Care Team (Late st Contact Info) Description 08/16/2018 7:40 AM CDT Office Visit [facility] Rheumatology [address] [facility] [address] [place] [id number] Patricia Martinez MD [address] [facility] [address] [place] [address] Rheumatoid arthritis of multiple sites with negative [...] on file 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 Gender Identity Not on file Sexual Orientation Not on file 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 file Not on file Not on file documented as of this encounter Last Filed Vital Signs Vital Sign Reading Time Taken Comments Blood Pressure 130/86 08/16/2018 7:49 AM CDT Pulse 84 08/16/2018 7:49 AM CDT Temperature 36.5 ??C (97.7 ??F) 08/16/2018 7:49 AM CD T Respiratory Rate - - Oxygen Saturation - - Inhaled Oxygen Concentration - - Weight 63.9 kg (140 lb 14.4 oz) 08/16/2018 7:49 AM CDT Height 160 cm (5' 3 ) 08/16/2018 7:49 AM CDT Body Mass Index 24.96 08/16/2018 7:49 AM CDT documented in this encounter Progress Notes * Patricia Martinez MD - 08/16/2018 7:40 AM CDT 08/16/2018 HISTORY OF PRESENT ILLNESS: Yesika Denney is a 58 y.o.year old female returns today for a follow up for 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 She is currently on triple DMARD therapy. Last monitoring labs were 07/08 with normal inflammatory markers. Since the last visit, patient reports Am stiffness of 5 minutes. Pain is reported in the following joints:lateral hips. The patient has not experienced any interval infections. 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 Currently the patient reports activities of walking regularly. She had bone densities performed today which show a T-score of minus 0.9 in the femoral neck and minus 0.2 in the spine DISEASE TREATMENT HISTORY May 10 -initiation of anastrazole and 1 week later onset of polyarticular joint inflammation, +Fhx 2 sisters with RA, one cousin with SLE RF/CCP negative. 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 Adhesive Hives ??? Adhesive Tape-Silicones Rash ??? Cyclizine Other (See comments) and Hallucinations Reaction: Urinary retention ??? Codeine Unknown tachycardia tachycardia, tachycardia CURRENT MEDICATION: Current Outpatient Medications: ??? FLUoxetine (PROzac) 20 [...] week., Disp: 96 tablet, Rfl: 1 ??? vtvovfkrfefo-jqs-MP-ginkgo (ONE DAILY WOMEN 50 PLUS) 400-120 mcg-mg tablet, daily., Disp: , Rfl: ??? sulfaSALAzine EN (AZULFIDINE EN) 500 mg EC tablet, TAKE 1 TABLET BY MOUTH TWICE A DAY, Disp: 180 tablet, Rfl: 0 ??? valACYclovir (VALTREX) 500 mg tablet, daily., Disp: , Rfl: REVIEW OF SYSTEMS: All other systems are negative PHYSICAL EXAM: Vitals BP 130/86 (BP Location: Left arm, Patient Position: Sitting) Pulse 84 Temp 36.5 ??C (97.7 ??F) (Oral) Ht 160 cm (5' 3 ) Wt 63.9 kg (140 lb 14.4 oz) BMI 24.96 kg/m?? Physical Exam LABORATORY DATA: Laboratory review: Chemistry CMP: Lab Results Component Value Date ALBUMIN 4.6 07/08/2018 ALBUMIN 5.0 06/29/2018 BUNSER 14 07/08/2018 BUNSER 13 06/29/2018 CALCIUM 9.4 07/08/2018 CALCIUM 9.3 06/29/2018 CO2 27 07/08/2018 CO2 25 06/29/2018 CHLORIDE 106 07/08/2018 CHLORIDE 101 06/29/2018 CREATININE 0.79 07/08/2018 CREATININE 0.75 06/29/2018 GLUCOSE 88 07/08/2018 GLUCOSE 119 (H) 06/29/2018 POTASSIUM 4.6 07/08/2018 SODIUM 142 07/08/2018 SODIUM 141 06/29/2018 BILITOT <0.2 (L) 07/08/2018 BILITOT 0.3 06/29/2018 PROTEIN 7.1 06/29/2018 PROT 6.8 07/08/2018 ALT 24 07/08/2018 ALT 15 06/29/2018 AST 24 07/08/2018 AST 23 06/29/2018 ALKPHOS 51 07/08/2018 ALKPHOS 51 06/29/2018 , CBC: Lab Results Component Value Date WBC 3.9 07/08/2018 WBC 5.7 06/29/2018 RBC 3.78 (L) 07/08/2018 RBC 4.01 06/29/2018 HGB 12.6 07/08/2018 HGB 13.3 06/29/2018 HCT 38.3 07/08/2018 HCT 40.2 06/29/2018 MCV 101.2 (H) 07/08/2018 MCV 100 (H) 06/29/2018 MCH 33.4 07/08/2018 MCH 33.2 (H) 06/29/2018 MCHC 33.0 07/08/2018 MCHC 33.1 06/29/2018 RDW 14.0 06/29/2018 RDWCV 14.0 07/08/2018 MPV 8.0 07/08/2018 NRBC 0.0 06/25/2017 NRBCABS 0.00 07/08/2018 NRBCPCT 0.0 03/16/2018 Lab Results Component Value Date SEDRATE 2 06/29/2018 CRP 1.9 03/16/2018 IMAGING: No images are attached to the encounter. ASSESSMENT AND PLAN: Problem List Items Addressed This Visit Rheumatology Problems Rheumatoid arthritis (CMS/HCC) - Primary Low disease activity today on examination; we will give a trial of tapering methotrexate to 15 mg from 20 mg. She has had no subsequent scleritis. I personally read her bone densities in reviewed these with her as she has a significant family history of osteoporosis. We discussed since she has beenin disease remission potentially trying to lower her maintenance therapy to see if there is any breakthrough. Standard monitoring laboratories are scheduled today. Relevant Orders CBC with auto differential Comprehensive metabolic panel CRP (acute phase) Erythrocyte sedimentation rate Other High risk medication use Relevant Orders CBC with auto differential Comprehensive metabolic panel CRP (acute phase) Erythrocyte sedimentation rate documented in this encounter Miscellaneous Notes * Assessment & Plan Note - Patricia Martinez MD - 08/16/2018 8:16 AM CDT Associated Problem(s): Rheumatoid arthritis with negative rheumatoid factor (HCC) Low disease activity today on examination; we will give a trial of tapering methotrexate to 15 mg from 20 mg. She has had no subsequent scleritis. I personally read her bone densities in reviewed these with her as she has a significant family history of osteoporosis. We discussed since she has beenin disease remission potentially trying to lower her maintenance therapy to see if there is any breakthrough. Standard monitoring laboratories are scheduled today. documented in this encounter Plan of Treatment Scheduled Orders Name Type Priority Associated Diagnoses Orde r Schedule CBC with auto differential Lab Routine Rheumatoid 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 (CMS/HCC) High risk medication use every 12 weeks for 3 Occurrences starting 10/16/2018 until 08/17/2019, 1 completed Comprehensive metabolic panel Lab Routine Rheumatoid 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 (CMS/HCC) High risk medication use every 12 weeks for 3 Occurrences starting 10/16/2018 until 08/17/2019, 1 completed CRP (acute phase) Lab Routine Rheumatoid 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 (CMS/HCC) High risk medication use every 12 weeks for 3 Occurrences starting 10/16/2018 until 08/17/2019, 1 completed Erythrocyte sedimentation rate Lab Routine Rheumatoid 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 (CMS/HCC) High risk medication use every 12 weeks for 3 Occurrences starting 10/16/2018 until 08/17/2019, 1 completed documented as of this encounter Procedures Procedure Name Priority Date/Time Associated Diagnosis Comments CBC WITH AUTO DIFFERENTIAL Routine 10/12/2018 2:30 PM CDT Rheumatoid 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 (CMS/HCC) High risk medication use ERYTHROCYTE SEDIMENTATION RATE Routine 10/12/2018 2:30 PM CDT Rheumatoid 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 (CMS/HCC) High risk medication use CRP (ACUTE PHASE) Routine 10/12/2018 2:3 0 PM CDT Rheumatoid 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 (CMS/HCC) High risk medication use COMPREHENSIVE METABOLIC PANEL Routine 10/12/2018 2:30 PM CDT Rheumatoid 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 (CMS/HCC) High risk medication use documented in this encounter Results * Erythrocyte sedimentation rate (10/12/2018 2:30 PM CDT) Erythrocyte sedimentation rate 2 0 - 40 mm/hr [facility] - 01 Blood specimen (specimen) 10/12/2018 2:30 PM CDT 10/12/2018 Narrative [facility] - 10/13/2018 8:12 AM CDT Performed at: ??01 - [facility] ??[id number] Slate Handler: John Lozoya PhD, Phone: ??[phone] Patricia Martinez MD LAB BLOOD ORDERABLES Final R esult Performing Organization Address [facility] Co de Phone Number [facility] - * CRP (acute phase) (10/12/2018 2:30 PM CDT) Pathologist [facility] CRP 1 0 - 10 mg/L [facility] - 01 Comment:Please note refere nce interval change Blood specimen (specimen) 10/12/2018 2:30 PM CDT 10/12/2018 Narrative [facility] - 10/13/2018 8:12 AM CDT Performed at: ??01 - [facility] [address] ??[id number] Slate Handler: John Lozoya PhD, Phone: ??[phone] Patricia Martinez MD LAB BLOOD ORDERABLES Final R esult Performing Organization Address [facility]/ZIP Co de Phone Number [facility] - * (ABNORMAL) Comprehensive metabolic panel (10/12/2018 2:30 PM CDT) Pathologist [facility] Glucose 88 65 - 99 mg/dL [facility] - 01 BUN 12 6 - 24 mg/dL [facility] - 01 Creatinine, Serum 0.72 0.57 - 1.00 mg/dL [facility] - 01 eGFR If NonAfricn Am 93 >59 mL/min/1.7 3 [facility] - 01 eGFR If Africn Am 107 >59 mL/min/1.7 3 [facility] - 01 BUN/creat ratio 17 9 - 23 [facility] - 01 Sodium 140 134 - 144 mmol/L [facility] - 01 Potassium, sr 4.4 3.5 - 5.2 mmol/L [facility] - 01 Chloride 100 96 - 106 mmol/L [facility] - 01 CO2 26 20 - 29 mmol/L [facility] - 01 Calcium 9.5 8.7 - 10.2 mg/dL [facility] - 01 Protein, sr 6.8 6.0 - 8.5 g/dL [facility] - 01 Albumin 4.8 3.5 - 5.5 g/dL [facility] - 01 Globulin, Total 2.0 1.5 - 4.5 g/dL [facility] - 01 A/G Ratio 2.4(H) 1.2 - 2.2 [facility] - 01 Bilirubin, Total <0.2 0.0 - 1.2 mg/dL [facility] - 01 Alk phos 49 39 - 117 IU/L [facility] - 01 AST 23 0 - 40 IU/L [facility] - 01 ALT 18 0 - 32 IU/L [facility] - 01 Blood specimen (specimen) 10/12/2018 2:30 PM CDT 10/12/2018 Narrative [facility] - 10/13/2018 8:12 AM CDT Performed at: ??01 - [facility] [address] ??[id number] Slate Handler: John Lozoya PhD, Phone: ??[phone] us Patricia Martinez MD LAB BLOOD ORDERABLES Final R esult [facility] - 01 * (ABNORMAL) CBC with auto differential (10/12/2018 2:30 PM CDT) Pathologist [facility] WBC 4.8 3.4 - 10.8 x10E3/uL [facility] - 01 RBC 3.87 3.77 - 5.28 x10E6/uL [facility] - 01 Hgb 13.1 11.1 - 15.9 g/dL [facility] - 01 Hct 37.4 34.0 - 46.6 % [facility] - 01 MCV 97 79 - 97 fL [facility] - 01 MCH 33.9(H) 26.6 - 33.0 pg [facility] - 01 MCHC 35.0 31.5 - 35.7 g/dL [facility] - 01 Rdw 13.1 12.3 - 15.4 % [facility] - 01 Platelets 221 150 - 450 x10E3/uL [facility] - 01 Neutrophils pct 53 Not Estab. % [facility] - 01 Lymphs pct 34 Not Estab. % [facility] - 01 Monocytes [...] x10E3/uL [facility] - 01 Blood specimen (specimen) 10/12/2018 2:30 PM CDT 10/12/2018 Narrative [facility] - 10/13/2018 8:12 AM CDT Performed at: ?? - [facility] [address] ??[id number] Slate Handler: John Lozoya PhD, Phone: ??[phone] us Patricia Martinez MD LAB BLOOD ORDERABLES Final R esult [facility] - documented in this encounter Visit Diagnoses Diagnosis Rheumatoid 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 (CMS/HCC) (HCC)- Primary High risk medication use documented in this encounter Discontinued Medications Medication Sig Discontinue Reason Start Date End Da te predniSONE (DELTASONE) 10 mg tabletIndications:Anti-i nflammatory Take 1 tablet (10 mg total) by mouth daily. 12/03/2017 08/16/2018 documented as of this encounter Care Teams Hvac Lead Relationship Specialty Start Date End Date Mark Cerna DO PCP - General 09/04/16 01/17/19 documented as of this encounter
--- OUTSIDE RECORDS SUMMARY | 2024-04-24 05:57 | XMS_ITS | Encounter Summary ---
Author Organization [facility] Address [address] [place] [address] Care Team Providers Care Latex Spooler Name Role Phone Mark Cerna DO Primary Care Provider [phone]- [phone] Encounter Details Date Type Department Care Team (Latest Contact Info) Description 08/13/2017 9:27 AM CDT - 08/13/2017 11:59 PM T Hospital Encounter [facility] OP INTERIM [phone] Erica Rodrigues MD [address] [place] [address] Discharge Disposition: Discharge to home or self care Social History Tobacco Use Types Packs/Day Years Used Date Smoking Tobacco: Never Comments Unknown Sex and Gender Information Value Date Recorded Sex Assigned at Not on file 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 12/27/2015 06/10/2018 methotrexate 2.5 mg tablet TAKE 8 TABLETS ONCE WEEKLY 09/07/2015 02/19/2018 sulfaSALAzine EN (AZULFIDINE EN) 500 mg EC tablet TAKE 1 TABLET TWICE A DAY 03/03/2016 06/10/2018 documented as of this encounter Discharge Disposition Disposition Code Departure Means Destination Discharge to home or self care documented in this encounter Plan of Treatment Not on file documented as of this encounter Procedures Procedure Name Priority Date/Time Associated Diagnosis Comments GENERAL RADIOLOGY REPORT 08/13/2017 documented in this encounter Results * GENERAL RADIOLOGY REPORT (08/13/2017) Anatomical Region Laterality Modality Radiographic Katty ging Narrative 08/13/2017 Ordered by an unspecified provider. us Historical Provider MD PERALES XR PROCEDURES Final R esult documented in this encounter Visit Diagnoses Not on filedocumented in this encounter Care Teams Latex Spooler Relationship Specialty Start Date End Date Mark Cerna DO PCP - General 09/04/16 01/17/19 documented as of this encounter
--- OUTSIDE RECORDS SUMMARY | 2024-04-24 05:57 | XMS_ITS | Encounter Summary ---
Author Organization [facility] Care Team Providers Care Rocket Propellant Plant Supervisor Name Role Phone Mark Cerna DO Primary Care Provider [phone] Erica Rodrigues MD Unavailable Gasper Kaba MD Unavailable Brandy Aguirre COST RECOVERY TECHNICIAN Unavailable [phone] Jo-Ann Morrow PhD Unavailable Christina [place] ADJUSTER Unavailable [phone] Encounter Details Date Type Department Care Team (Latest Contact Info) Description 11/11/2018 Travel Social History Tobacco Use Types Packs/Day Years Used Date Smoking Tobacco: Never Smokeless Tobacco: Never Alcohol Use Standard Drinks/Week Comments No 0 (1 standard drink = 0.6 oz pur e alcohol) Comments No Sex and Gender Information Value Date Recorded Sex Assigned at Not on file Legal Sex Female 3: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 DISEASE EDUCATION 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 Gender Identity Not on file Sexual Orientation Not on file 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 Not on file Not on file documented as of this encounter Plan of Treatment Not on file documented as of this encounter Visit Diagnoses Not on filedocumented in this encounter Care Teams Rocket Propellant Plant Supervisor Relationship Specialty Start Date End Date Mark Cerna DO PCP - General 09/04/16 01/17/19 Erica Rodrigues MD [address] [place] [address] Radiation Oncologist Radiation Oncology 10/25/18 Gasper Kaba MD [address] [place] [address] Surgeon Surgical Oncology 10/25/18 Brandy Aguirre, COST RECOVERY TECHNICIAN [address] [place] [address] Nurse Practitioner Certified Clinical Nurse Specialist 10/25/18 Jo-Ann Morrow, PhD [address] [place] [address] Nurse Practitioner Radiation Oncology 10/25/18 Christina [place], ADJUSTER [address] [place] [address] Nurse Practitioner Medical Oncology 10/25/18 documented as of this encounter
--- OUTSIDE RECORDS SUMMARY | 2024-04-24 05:57 | XMS_ITS | Encounter Summary ---
Author Organization [facility] Healthcare Address [address] [place] [address] Care Team Providers Care Customer Experience Leader Name Role Phone Mark Cerna DO Primary Care Provider [phone] Erica Rodrigues MD Unavailable Gasper Kaba MD Unavailable Brandy Aguirre CORPORATE LEGAL ASSISTANT Unavailable [phone] Jo-Ann Morrow PhD Unavailable Christina Louis WRITING TUTOR Unavailable [phone] Reason for Visit * Reason Comments Follow-up Encounter Details Date Type Department Care Team (Late st Contact Info) Description 10/26/2018 11:30 AM CDT Office Visit 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 Follow up in 12 months as arranged. Follow with medical doctor for low back pain if no improvement in 3 weeks. documented in this encounter Discharge Disposition Disposition Code Departure Means Destination Discharge to home or self care documented in this encounter Progress Notes * Jo-Ann Morrow, PhD - 10/26/2018 11:30 AM CDT Radiation Oncologist: Erica Rodrigues MD Primary Care Physician: Mark Cerna DO Medical Oncologist: Christina Louis NP Surgeon: Gasper Kaba MD Referring Physician: No care steam conditioning operator to display Date of Service: 10/26/2018 RADIATION ONCOLOGY FOLLOW UP NOTE IDENTIFYING DATA: Cancer Staging Malignant neoplasm of central portion of right breast in female, estrogen receptor positive (CMS/HCC) Staging form: Breast, AJCC V7 - Clinical stage from 10/27/2014: Stage IA (T1, N0, M0) - Signed by Jo-Ann Morrow, PhD on 10/25/2018 - Pathologic stage from 11/16/2014: Stage IA (T1c, N0, cM0) - Signed by Jo-Ann Morrow, PhD on 10/25/2018 Diagnosis Plan 1. Encounter for follow-up surveillance of breast cancer 2. Malignant neoplasm of central portion of right breast in female, estrogen receptor positive (CMS/HCC) IDENTIFYING DATA: 58 y.o. 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 Pathologic stage IA (T1cN0). ER/CA positive, HER2 Gayle non amplified. Status post [...] arthritis and the drug was discontinued. She returns the office today for routine follow-up evaluation. INTERVAL HISTORY: Yesika Denney has been doing quite well since her last office visit August 13, 2017. She has not developed any new medical problems. She has had no surgical intervention. She has noted no changes in her breast, no masses, lesions, lumps, change in nipple or nipple discharge. Low back pain (4/10) present and worsening over the last several months at night. Resolves with tylenol. CURRENT MEDICATIONS: Current Outpatient Medications: ??? FLUoxetine (PROzac) 20 [...] week., Disp: 96 tablet, Rfl: 1 ??? ghtawphldeqc-yca-DK-ginkgo (ONE DAILY WOMEN 50 PLUS) 400-120 mcg-mg [...] retention ??? Codeine Unknown tachycardia tachycardia, tachycardia REVIEW OF SYSTEMS: Except for the symptoms described above, the remainder of the review of systems is negative. Specifically, except as noted, when asked the patient expressed no complaints relative to constitutional (fever, weight loss), eyes, ears, nose, mouth, throat, neurologic, cardiovascular,pulmonary, breast, GI, , skin, musculoskeletal, endocrine, hematologic/lymphatic, or immunologic systems. All other systems negative. PHYSICAL EXAMINATION: Healthy appearing 58 y.o.-year-old White female in no distress. Wt Readings from Last 3 Encounters: 10/26/18 63.5 kg (140 lb) 08/16/18 63.9 kg (140 lb 14.4 oz) 07/14/18 63.5 kg (140 lb) Pain Score and Location 10/26/18 1130 PainSc: 0-No pain Zubrod 0. HEENT: No cervical or supraclavicular adenopathy palpable. Trachea midline neck full range of motion thyroid nonpalpable no bruits noted. Breasts: Right breast surgical incision well healed. Dense scar in the area of the surgical cavity. No discrete nodules palpable. Otherwise, normal to inspection and palpation. No cervical, supraclavicular or axillary adenopathy palpable. Left breast:No discrete nodules palpable. Otherwise, normal to inspection and palpation. No cervical, supraclavicular or axillary adenopathy palpable. Lungs clear to auscultation. Heart regular rate and rhythm. Abdomen soft, nontender bowel sounds present in all 4 quadrants. No hepatosplenomegaly palpable. No i nguinal nodes palpable. No bruits noted. Extremities warm dry no cyanosis clubbing or edema noted. Cosmesis:excellent Skin Toxicity: 0- None Subcutaneous tissue:1- slight induration, loss of subcutaneous fat DIAGNOSTIC REPORTS REVIEWED: Imaging:Bilateral mammogram from this center dated February 09, 2018: Birads category 2: benign. ASSESSMENT: 1. 58 y.o.female 3 years and 10 month(s) following completion of right accelerated partial breast radiation therapy being seen for routine follow up evaluation. 2. ER positive. Hormone suppression was discontinued due to a flare of rheumatoid arthritis 3. RAD ONC PAIN PLAN: The patient is not currently having any pain that requires changes in pain management. 4. Low back pain, Will begin low back exercise and followup with primary care physician if not improvement in 3 weeks. PLAN: 1. Follow up in this office in 1 year(s) as arranged. 2. Follow up with CARINA Tyson as previously arranged. 3. Follow up with Christina Louis, Nurse Practitioner as previously arranged. DISEASE STATUS/TOXICITY: Disease Status: Controlled New metachronous cancer?: No metachronous cancer. Jo-Ann Morrow RN, ANP-BC, PhD Adult Nurse Practitioner Department of radiation oncology Portions of this note were dictated using [employer] Fluency Direct speech recognition software. Please excuse any speaker wirer errors. Erica Rodrigues MD Professor plant science professor, Breast plant science professor, Hyperthermia Supervisor Buffing And Pasting [facility] Radiation Oncology Department of Radiation Oncology [facility] Cosigned by Erica Rodrigues MD at 11/01/2018 12:06 PM CDT documented in this encounter Plan of Treatment Not on file documented as of this encounter Visit Diagnoses Diagnosis Encounter for follow-up surveillance of breast cancer- Primary Malignant neoplasm of central portion of right breast in female, estrogen receptor positive (HCC) documented in this encounter Care Teams Customer Experience Leader Relationship Specialty Start Date End Date Mark Cerna DO PCP - General 09/04/16 01/17/19 Erica Rodrigues MD [facility] [place] [address] Radiation Oncologist Radiation Oncology 10/25/18 Gasper Kaba MD [address] [place] [address] Surgeon Surgical Oncology 10/25/18 Brandy Aguirre, CORPORATE LEGAL ASSISTANT [address] [place] [address] Nurse Practitioner Certified Clinical Nurse Specialist 10/25/18 Jo-Ann Morrow, PhD [address] [place] [address] Nurse Practitioner Radiation Oncology 10/25/18 Christina Louis, WRITING TUTOR [address] [place] [address] Nurse Practitioner Medical Oncology 10/25/18 documented as of this encounter
--- OUTSIDE RECORDS SUMMARY | 2024-04-24 05:57 | XMS_ITS | Encounter Summary ---
Author Organization [facility] Address [address] [place] [address] Phone Care Team Providers Care Program Dir Name Role Phone Mark Cerna DO Primary Care Provider [phone] Encounter Details Date Type Department Care Team (Late st Contact Info) Description 01/22/2018 Telephone [facility] Oncology [address] [facility] 7th [place] [address] [place] [id number] Hramony Ventura, RN Social History Tobacco Use Types Packs/Day Years Used Date Smoking Tobacco: Never Smokeless Tobacco: Never Comments Unknown Sex and Gender Information Value Date Recorded Sex Assigned at Not on file Legal 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 She has a ACCESS DIRECTOR appointment on Thursday. Counseled to keep that. She also has an appoint with a [facility] ACCESS DIRECTOR in February since she would like all her care in one place. documented in this encounter Plan of Treatment Not on file documented as of this encounter Visit Diagnoses Not on filedocumented in this encounter Care Teams Program Dir Relationship Specialty Start Date End Date Mark Cerna DO PCP - General 09/04/16 01/17/19 documented as of this encounter
--- OUTSIDE RECORDS SUMMARY | 2024-04-24 05:57 | XMS_ITS | Encounter Summary ---
Author Organization [facility] Address [address] [place] [address] Phone Care Team Providers Care Health Education Specialist Name Role Phone Mark Cerna DO Primary Care Provider [phone] Reason for Visit * Reason Comments Osteoporosis * Diagnostic Imaging (Routine) - Closed Specialty Diagnoses / Procedures Referred By Contac t Referred To Contact Diagnoses High risk medication use Procedures Dexa Axial Skeleton Bone Density 1 or 2 Site Patricia Martinez MD Phone: tel: fax: [facility] (All Locations) Referral ID Status Reason Start Date Expiration Date Visits Re quested Visits Authorized [id number] Closed 06/02/2018 12/12/2019 1 1 Encounter Details Date Type Department Care Team (Latest Contact Info) Description 07/07/2018 9:50 AM CDT Clinical Support [facility] [address] [place] [address] Advanced Medicine 5th [place] [address] [place] [address] High risk medication use Social History Tobacco Use Types Packs/Day Years Used Date Smoking Tobacco: Never Smokeless Tobacco: Never Alcohol Use Standard Drinks/Week Comments No 0 (1 standard drink = 0.6 oz pur e alcohol) Comments No Sex and Gender Information Value Date Recorded Sex Assigned at Not on file Legal Sex Female 3:42 AM RADIO PRESENTER Gender Identity Not on file Sexual Orientation Not on file 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 Not on file Not on file Not on file documented as of this encounter Plan of Treatment Not on file documented as of this encounter Procedures Procedure Name Priority Date/Time Associated Diagnosis Comments DEXA AXIAL SKELETON BONE DENSITY 1 OR MORE SITES Schedule Routine, Read Routine (OP Routine) 07/07/2018 10:10 AM CDT High risk medication use documented in this encounter Results * Dexa Axial Skeleton Bone Density 1 or 2 Site (07/07/2018 10:10 AM CDT) Anatomical Region Laterality Modality Body N/A Radiographic Katty ging Narrative 07/08/2018 2:55 PM CDT Patient Name: Yesika Denney Date of : 1960 Date of scan: 07/07/2018 Bone mineral density was performed on a Cramster Discovery Densitometer. ?? Machine Cross-calibration and Precision [...] of Internal Medicine 114(11): ??919-923 (1990) 2) Foster, Lancet 341 : 72-75 (1992) 3) Black, Journal Bone and Mineral Research 7(6): 633-8 (1991) 4) Leonardo, Journal Bone and Mineral Research 8(10):1227-33 (1992) The history and data sections of the bone mineral density scan were prepared by Valorie Bowie who is accredited by the International Society of Clinical Densitometry. The overall patient assessment and scan interpretation were performed by Gokul Flower M.D. who is certified by the International Society of Clinical Densitometry. [id number] us Patricia Martinez MD IMG DXA PROCEDURES Final Res ult documented in this encounter Visit Diagnoses Diagnosis High risk medication use documented in this encounter Care Teams Health Education Specialist Relationship Specialty Start Date End Date Mark Crena DO PCP - General 09/04/16 01/17/19 documented as of this encounter
--- OUTSIDE RECORDS SUMMARY | 2024-04-24 05:57 | XMS_ITS | Encounter Summary ---
Author Organization [facility] Address [address] [place] [address] Phone Care Team Providers Care Inspection And Testing Supervisor Name Role Phone Mark Cerna DO Primary Care Provider [phone]- [phone] Reason for Visit * Reason Onset Date Comments Test Results 12/11/2017 Encounter Details Date Type Department Care Team (Late st Contact Info) Description 12/11/2017 Telephone [facility] Rheumatology 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 Vectra same at 20, as in April 2017. Will increase folic acid to 3 tabs daily and follow up at next appointment or sooner if needed. documented in this encounter Plan of Treatment Not on file documented as of this encounter Visit Diagnoses Not on filedocumented in this encounter Care Teams Inspection And Testing Supervisor Relationship Specialty Start Date End Date Mark Cerna DO PCP - General 09/04/16 01/17/19 documented as of this encounter
--- OUTSIDE RECORDS SUMMARY | 2024-04-24 05:57 | XMS_ITS | Encounter Summary ---
Author Organization [facility] Healthcare Address [address] [place] [address] Care Team Providers Care Continuous Towel Roller Name Role Phone Mark Cerna DO Primary Care Provider [phone] Erica Rodrigues MD Unavailable Gasper Kaba MD Unavailable Brandy Aguirre ANIMAL REHABILITATOR Unavailable Jo-Ann Morrow PhD Unavailable [phone] Christina Louis TIE UP WORKER Unavailable [phone] Encounter Details Date Type Department Care Team (Latest Contact Info) Description 11/11/2018 7:25 AM CDT - 11/11/2018 12:40 PM CDT Hospital Encounter [facility] Operating Room [address] [place] [address] Ema Keyes MD [address] [place] [address] Postmenopausal bleeding Discharge Disposition: Discharge to home or self care Social History Tobacco Use Types Packs/Day Years Used Date Smoking Tobacco: Never Smokeless Tobacco: Never Alcohol Use Standard Drinks/Week Comments No 0 (1 standard drink = 0.6 oz pur e alcohol) Comments No Sex and Gender Information Value Date Recorded Sex Assigned at Not on file Legal Sex Female 3:42 AM ELECTRIC NEEDLE SPECIALIST Gender Identity Not on file Sexual Orientation Not on file 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 on file Not on file Not on file documented as of this encounter Last Filed Vital Signs Vital Sign Reading Time Taken Comments Blood Pressure 116/81 11/11/2018 12:30 PM CDT Pulse 86 11/11/2018 12:35 PM CDT Temperature 36.2 ??C (97.2 ??F) 11/11/2018 10:20 AM C DT Respiratory Rate 17 11/11/2018 12:35 PM CDT Oxygen Saturation 96% 11/11/2018 12:35 PM CDT Inhaled Oxygen Concentration - - Weight 61.2 kg (135 lb) 11/11/2018 8:04 AM CDT Height 160 cm (5' 3 ) 11/11/2018 8:04 AM CDT Body Mass Index 23.91 11/11/2018 8:04 AM CDT documented in this encounter Discharge Diagnoses Diagnosis Postmenopausal bleeding - POSTMENOPAUSAL BLEEDING Essential (primary) hypertension - ESSENTIAL (PRIMARY) HYPERTENSION Unspecified essential hypertension Pure hypercholesterolemia - PURE HYPERCHOLESTEROLEMIA, UNSPECIFIED Rheumatoid arthritis (HCC) - RHEUMATOID ARTHRITIS, UNSPECIFIED Estrogen receptor positive tumor status - ESTROGEN RECEPTOR POSITIVE STATUS [ER+] Personal history of malignant neoplasm of breast - PERSONAL HISTORY OF MALIGNANT NEOPLASM OF BREAST Other longterm (current) drug therapy - OTHER CUFF SLITTER (CURRENT) DRUG THERAPY Allergy status to narcotic agent - ALLERGY STATUS TO NARCOTIC AGENT STATUS documented in this encounter Discharge Instructions * [...] cannot be sent through Care Everywhere. * [facility] PATHWAY TO EXCELLENT CARE AFTER SURGERY documented [...] Keyes MD - 11/02/2018 10:15 AM CDT BARREL REPAIRER visit note Chief Complaint: Chief Complaint Follow-up [...] history. Personal history of breast cancer--Stage I ER/MD pos invasive ductal carcinoma. S/p right lumpectomy/ [...] Term Living 3 Term Living Obstetric Comments Manager Labor Delivery history: 3 para 3, 1st term age [...] education level: None Occupational History ??? 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 Financial resource strain: None [...] on phone: None Gets together: None Attends mosque service: None Active member of club or [...] a week, Disp: 96 tablet,Rfl: 1 ??? abhojdivytjw-tik-WJ-ginkgo (ONE DAILY WOMEN 50 PLUS) 400-120 mcg-mg [...] Keyes MD - 11/02/2018 10:15 AM CDT BARREL REPAIRER visit note Chief Complaint: Chief Complaint Follow-up [...] history. Personal history of breast cancer--Stage I ER/MD pos invasive ductal carcinoma. S/p right lumpectomy/ [...] Term Living 3 Term Living Obstetric Comments Manager Labor Delivery history: 3 para 3, 1st term age [...] education level: None Occupational History ??? 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 Financial resource strain: None [...] on phone: None Gets together: None Attends mosque service: None Active member of club or [...] a week, Disp: 96 tablet,Rfl: 1 ??? loyjrrnosoec-hbn-YU-ginkgo (ONE DAILY WOMEN 50 PLUS) 400-120 mcg-mg [...] MD Surgical Team: Surgeon(s) and Role: * Ema Keyes MD - Primary * Samantha Ozuna [...] [facility] and was then examined under anesthesia, see [...] curettings) 11/11/2018 9:56 AM CDT Narrative PATHOLOGY [facility] - 11/13/2018 11:59 PM CDT EPIC results best viewed via link to PDF [facility] Yesy Lord [facility] [place] [address] SURGICAL PATHOLOGY REPORT FINAL Patient Name: ?? YESIKA MANZANARES Gender: ??F : ??1960 (Age: 58) Address: ??[address] [place] [address] Hospital #: ??[id number] Taken:11/11/2018 Received:11/11/2018 Reported: 11/13/2018 Patient Type: [facility] SDS ?? Service: Obstetrics BJ Location: [facility] Physician(s): ??Ema Keyes M.D. Mark Cerna, DO [...] determined by the Surgical Pathology Department at [facility] as part of an ongoing advanced quality engineer program and in compliance with federally mandated [...] determined by the Surgical Pathology Department of [facility]. ??It has not been cleared or approved by the U. S. Food and Drug Administration. IMAGES AND SCANNED DOCUMENTS, IF INCLUDED, ONLY VIEWABLE IN PDF VERSION OF REPORT Ema Keyes MD LAB PATHOLOGY ORDERABLES Final Result PATHOLOGY [facility] 3rd Floor [place], [place] [phone] documented in this encounter Visit Diagnoses Diagnosis Postmenopausal bleeding- Primary documented in this encounter Admitting Diagnoses Diagnosis [...] size. Flush before and after each use. documented in this encounter Historical Medications * [...] chloride 0.9% flush 0.5-20 mL 2 04/2018 sodium chloride 0.9% infusion 1 11/11/2018 documented in this encounter Care Teams Continuous Towel Roller Relationship Specialty Start Date End Date Mark Cerna DO PCP - General 09/04/16 01/17/19 Erica Rodrigues MD [address] [facility] [address] [place] [id number] [place] [address] Radiation Oncologist Radiation Oncology 10/25/18 Gasper Kaba MD [address] [facility] [address] [place] [address] Surgeon Surgical Oncology 10/25/18 Brandy Aguirre CNS [address] [facility] [address] [facility] [address] [place] [address] Nurse Practitioner Certified Clinical Nurse Specialist 10/25/18 Jo-Ann Morrow, PhD [address] [facility] [address] [place] [address] Nurse Practitioner Radiation Oncology 10/25/18 Christina Louis NP [address] [facility] [address] [place] [address] Nurse Practitioner Medical Oncology 10/25/18 documented as of this encounter
--- OUTSIDE RECORDS SUMMARY | 2024-04-24 05:57 | XMS_ITS | Encounter Summary ---
Author Organization [facility] Address [address] [place] [address] Phone Care Team Providers Care School Bus Driver/Mechanic Name Role Phone Mark Cerna DO Primary Care Provider [phone] Reason for Visit * Reason Onset Date Comments Med Refill 06/10/2018 Encounter Details Date Type Department Care Team (Late st Contact Info) Description 06/10/2018 Telephone [facility] Rheumatology [facility] Advanced Medicine 5th [place] [address] [place] [address] Su Dobson RN Med Refill Social History Tobacco Use Types Packs/Day Years Used Date Smoking Tobacco: Never Smokeless Tobacco: Never Alcohol Use Standard Drinks/Week Comments No 0 (1 standard drink = 0.6 oz pur e alcohol) Comments No Sex and Gender Information Value Date Recorded Sex Assigned at Not on file Legal Sex Female 3:42 AM CONTINUOUS STILL OPERATOR Gender Identity Not on file Sexual Orientation Not on file documented as of this encounter Miscellaneous Notes * Telephone Encounter - Su Dobson RN - 06/10/2018 3:48 PM CST error INUOUS STILL OPERATOR documented in this encounter Plan of Treatment Not on file documented as of this encounter Visit Diagnoses Not on filedocumented in this encounter Care Teams School Bus Driver/Mechanic Relationship Specialty Start Date End Date Mark Cerna DO PCP - General 09/04/16 01/17/19 documented as of this encounter
--- OUTSIDE RECORDS SUMMARY | 2024-04-24 05:57 | XMS_ITS | Encounter Summary ---
Author Organization [facility] Address [address] [place] [address] Phone Care Team Providers Care Top Cutter Name Role Phone Mark Cerna DO Primary Care Provider [phone]- [phone] Reason for Referral * Diagnostic Imaging (Routine) - Closed Specialty Diagnoses / Procedures Referred By Niranjan farrell Referred To Contact Diagnoses History of breast cancer Procedures Diagnostic Mammogram Bilateral W Brandy Vyas CNS Phone: tel: fax: [address] [address] Referral ID Status Reason Start Date Expiration Date Visits Re quested Visits Authorized [id number] Closed 01/13/2018 07/25/2019 1 1 Encounter Details Date Type Department Care Team (Late st Contact Info) Description 01/13/2018 Orders Only [facility] Surgery [address] [facility] 5th [place] [address] [place] [id number] Brandy Aguirre CNS [address] [id number] History of breast cancer (Primary Dx) Social History Tobacco Use Types Packs/Day Years Used Date Smoking Tobacco: Never Smokeless Tobacco: Never Comments Unknown Sex and Gender Information Value Date Recorded Sex Assigned at Not on file Legal Sex Female 3: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 Brandy Aguirre BUSINESS ANALYST INTERN IMG MAMMO PROCEDURES Final R esult documented in this encounter Visit Diagnoses Diagnosis History of breast cancer- Primary Personal history of malignant neoplasm of breast History of breast cancer Personal history of malignant neoplasm of breast documented in this encounter Care Teams Top Cutter Relationship Specialty Start Date End Date Mark Cerna DO PCP - General 09/04/16 01/17/19 documented as of this encounter
--- OUTSIDE RECORDS SUMMARY | 2024-04-24 05:57 | XMS_ITS | Encounter Summary ---
Author Organization [facility] Address [address] [place] [address] Phone Care Team Providers Care Auto Brake Technician Name Role Phone Mark Cerna DO Primary Care Provider [phone]- [phone] Encounter Details Date Type Department Care Team (Late st Contact Info) Description 03/08/2018 Telephone [facility] Ophthalmology [facility]ly [facility], [id number] [place], [place] [id number] Joseph lA MD [address] [id number] Social History Tobacco Use Types Packs/Day Years Used Date Smoking Tobacco: Never Smokeless Tobacco: Never Alcohol Use Standard Drinks/Week Comments No 0 (1 standard drink = 0.6 oz pur e alcohol) Comments No Sex and Gender Information Value Date Recorded Sex Assigned at Not on file Legal Sex Female 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 If needed she will call back to set up an appointment with [facility]. UREMENT ANALYST * Telephone Encounter - Magdalene Smallwood - 03/08/2018 8:09 AM CST Pt called would like to see if either Dr. Martinez or Dr. herron can be used as a referral to see Dr. Al for Diplopia plus she had a brain aneurism as well. Notes in epic from both doctors. UREMENT ANALYST documented in this encounter Plan of Treatment Not on file documented as of this encounter Visit Diagnoses Not on filedocumented in this encounter Care Teams Auto Brake Technician Relationship Specialty Start Date End Date Mark Cerna DO PCP - General 09/04/16 01/17/19 documented as of this encounter
--- OUTSIDE RECORDS SUMMARY | 2024-04-24 05:58 | XMS_ITS | Encounter Summary ---
Author Organization [facility] Facility Care Team Providers Care Convertible Power Shovel Operator Name Role Phone Unavailable Primary Care Provider Unavailabl e Encounter Details Date Type Department Care Team (Late st Contact Info) Description 12/07/2014 - 04/12/2015 11:59 PM TALENT RECRUITER Hospital Encounter [facility] Erica Armijo MD [address] [facility] [address] [place] [address] Encounter for antineoplastic radiation therapy; Malignant neoplasm of central portion of right female breast (CMS/HCC) Social History Tobacco Use Types Packs/Day Years Used Date Smoking Tobacco: Never Assessed Comments Unknown Sex and Gender Information Value Date Recorded Sex Assigned at Not on file Legal Sex Female 3:42 AM TALENT RECRUITER Gender Identity Not on file Sexual Orientation Not on file documented as of this encounter H&P Notes * ProviderRonda MD - 12/07/2014 12:00 AM CDT Department of Radiation Oncology [facility] #[id number] [place] [address] ; PATIENT NAME: RAVEN DENNEY THERAPY #: [id number] : 1960 DATE OF VISIT: 12/07/2014 DICTATING PHYSICIAN: Zachery Contreras M.D., Ph.D. TYPE OF REPORT: H&P ATTENDING PHYSICIAN: Erica Rodrigues M.D. REFERRING PHYSICIAN: Gasper Eberlein, M.D. IDENTIFYING INFORMATION: Raven Denney is a 54-year-old perimenopausal woman with invasive ductal carcinoma of the right central breast, stage [id number], grade 1, ER/MA positive, HER-2 nonamplified. She is status post breast conserving surgery with sentinel lymph node biopsy performed by Dr. Kaba on 11/16/2014. She was seen in radiation oncology clinic today to discuss the role of adjuvant radiation therapy. HISTORY OF PRESENT ILLNESS: Ms. Denney initially presented with a dimpling mass in her right breast just above the nipple areolar complex. Of note, she has a prior history of multiple breast cysts. She had a previously scheduled appointment with her primary care physician for next week and mentioned this new mass at that time. Her primary care physician ordered a diagnostic mammogram. This was performed on 10/19/2014 and showed a focal asymmetry with architectural distortion on the right central breast. Screening mammogram from 2014 had previously been normal. This mammogram was followed by a diagnostic mammogram and breast ultrasound performed at [facility] on 10/26/2014. These showed an irregular solid mass measuring 1.6 cm in greatest dimension corresponding to the area of the palpable mass. A core needle biopsy was performed on 10/27/2014 which showed invasive ductal carcinoma grade 2, ER/MA positive, HER-2 nonamplified. The patient was then seen by Dr. Kaba and they discussed breast conserving surgery which the patient wished to pursue. Prior to surgery, the patient also underwent a right axillary ultrasound as well as breast MRI. Ultrasound was performed on 11/02/2014 and showed normal axillary lymph nodes. Breast MRI performed on 11/03/2014 showed a 1.7 cm lesion in the right upper central breast consistent with her biopsy-proved malignancy. The patient then underwent breast conserving surgery with a right sentinel lymph node biopsy on 11/16/2014. This operation was uncomplicated. Of note, the skin represented the anterior margin. Final pathology showed invasive ductal carcinoma, grade 1, 1.3 cm in its greatest extent, with no lymphovascular space invasion identified. Margins were negative with the closest margin anterior at 5 mm. DCIS was also present in the sample in approximately 25% of the sample, cribriform type, grade 2 with margins uninvolved. Since the surgery, the patient has been overall doing well. She does complain of some pain in her right upper back. This is intermittently a sharp pain. It does not radiate anywhere. She denies any other symptoms. She also denies any other palpable breast masses at this time, skin changes, nipple changes or nipple discharge. The patient has an appointment scheduled with medical oncologist, Dr. Calix, this afternoon. PAST MEDICAL HISTORY: Reviewed with the patient in clinic today and includes: 1. Hypertension. 2. Depression. 3. History of a thyroid cyst. 4. The patient also has a history of an anterior communicating brain aneurysm that was noted on an MRI performed to evaluate headaches. She gets regular followups for this with surveillance MRIs. 5. The patient also has past medical history of high cholesterol. PAST SURGICAL HISTORY: 1. Tonsillectomy performed in 1982. 2. Rhinoplasty performed in 1984. 3. Left thyroidectomy performed in 1997. 4. Left breast lumpectomy performed in 2002. 5. Right breast lumpectomy with sentinel lymph node biopsy performed in 2014 as described above. OBSTETRICAL GYNECOLOGICAL HISTORY: Menarche at age 13. The patient is G3, P3. Her first term was at age 22. The patient is currently going through menopause. She reports that her last true menstrual period was in February 2014. She did have a menstrual period in August following administration of progesterone though she describes this as very light. She previously took oral contraceptives pill for approximately 6 months. She has no history of hormone replacement therapy. ALLERGIES: 1. BAND-AIDS WITH A REACTION OF REDNESS AT THE SITE OF PLACEMENT. 2. MAREZINE WITH A REACTION OF HALLUCINATIONS AND URINARY RETENTION. MEDICATIONS: 1. Lisinopril 20 mg b.i.d. 2. Valtrex 500 mg daily. That is for cold sores. 3. The patient is also on a number of vitamin supplements including Coenzyme-Q, omega 3, collagen, Metamucil, multivitamins, Osteo-Bi Flex, melatonin and Cholestroff. FAMILY HISTORY: The patient has a grandfather who had colon cancer when he was over age 70. She has a maternal grandfather who had a stroke at age 75. SOCIAL HISTORY: The patient lives in [place], [place] with her . 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 She is currently working. She denies any history of tobacco use or illicit drug use. She endorses drinking approximately 1 alcoholic beverage per week. REVIEW OF SYSTEMS: A complete 14-point review of systems was performed in clinic today including constitutional, neurologic, HEENT, pulmonary, cardiac, GI, , SURGICAL SPECIALIST, musculoskeletal, skin, hematologic/lymphatic, endocrine, breast and psychiatric systems. This was notable for symptoms associated with menopause including night sweats and hot flashes, as well as post nasal drip and chronic sinus issues, a longstanding history of headaches, and some general fatigue. Otherwise negative except as noted above in the history of present illness. PHYSICAL EXAMINATION: Vital signs: BP 120/80, pulse 76, respiratory rate 16, temperature 98.3 degrees Fahrenheit. Weight 63.05 kg. Zubrod performance status 0. Karnofsky performance status 100. General: A 54-year-old woman in no acute distress. Alert, oriented, conversant and pleasant. HEENT: Head is normocephalic, atraumatic. Pupils are equal, round, and reactive to light bilaterally. Extraocular movements are intact. Sclerae and conjunctivae appear normal. Mucous membranes of the oral cavity and oropharynx are moist with no lesions. Neck: Supple with no cervical or supraclavicular or infraclavicular adenopathy. Thyroidectomy scar noted. Pulmonary: No increased work of breathing. Lungs are clear to auscultation bilaterally with no wheezes, rales or crackles. Cardiac: Heart with regular rate and rhythm. No murmurs, rubs, or gallops. Abdomen: Normoactive bowel sounds. Soft, nondistended, nontender with no masses or organomegaly. Extremities: Warm and well perfused with no swelling or edema of either the upper or lower extremities. Musculoskeletal: Reproducible tenderness in the musculature of the right upper back. No tenderness along the cervical, thoracic or lumbar spine. Normal range of motion in the bilateral shoulders. No swelling or deformity of any of the joints in the upper or lower extremities. Neurologic: Alert and oriented x4. Cranial nerves II-XII are intact. Strength 5/5 and symmetric in all distributions in upper and lower extremities. Sensation to light touch intact and symmetric in all distributions in upper and lower extremities. Gait is normal. Breast exam: On inspection, the patient has a well healed scar along the superior aspect of the nipple areolar complex on the right. She has some dimpling of the breast on the right. She also has a well healing scar in the right axilla. No suspicious skin changes are noted. On palpation she has some scar tissue noted in the right upper inner quadrant consistent with her recent surgery. No suspicious masses palpated in either breast. No axillary adenopathy bilaterally. RADIOGRAPHIC DATA REVIEW: We have personally reviewed pertinent images with results as discussed above in the history of present illness. A bedside ultrasound was also performed in clinic today. This showed scar tissue in the area of her surgery with no significant surgical cavity appreciated. PATHOLOGY REVIEW: Pertinent pathology results as discussed above in the history of present illness. IMPRESSION: Ms. Denney is a 54-year-old perimenopausal woman with recently diagnosed invasive ductal carcinoma of the right breast, stage [id number], grade 1, ER/MA positive, HER-2 nonamplified. DCIS was also present in approximately 25% of the removed tissue with widely negative margins. The patient is status post a breast conserving surgery with sentinel lymph node biopsy performed by Dr. Kaba on 11/16/2014 with negative margins. She presents to the radiation oncology clinic today to discuss the role of adjuvant radiation therapy. PLAN: We had a long discussion with Ms. Denney and her regarding the role of adjuvant radiation therapy in her case. We discussed how radiation therapy is the standard of care following a breast conserving surgery and that combining these 2 modalities reduces the risk of recurrence in the breast to that achieved with a mastectomy. We further discussed the possibility of accelerated partial breast irradiation. Given her early stage cancer, negative surgical margins, and no concerning findings on pathology, we think that she would be an appropriate candidate for accelerated breast radiation. We discussed with the patient and her that rates of local failure following accelerated partial breast radiation are the same as those achieved with whole breast radiation. In particular, we would recommend a course of accelerated partial breast radiation to a dose of 38.5 Gy delivered in 10 b.i.d. fractions using the Warrantly machine with real-time MRI. We discussed the logistics of this treatment including the need for a planning session and simulation which would include both a CT scan and an MRI as well as fitting of an immobilization device, and the details of daily treatments. We also discussed the logistics associated with traditional whole breast radiation, with daily treatments for approximately 6 1/2 weeks. The patient would like to pursue accelerated partial breast irradiation. We discussed potential side-effects associated with this treatment. Short term side-effects discussed included skin reaction and possible fatigue. assisted side-effects discussed included darkening of the skin, skin fibrosis as well as fibrosis of underlying tissues, potential for rib fracture, and pneumonitis. An informed consent was signed in clinic today. We also discussed with the patient the possibility of enrolling in a clinical trial looking at delivering a single fraction of radiation with MRI guidance, also using the ViewRay machine. We discussed that the rationale behind this approach as an extension of previous studies looking at intra-operative radiation therapy. The patient is interested in considering this and she was provided with materials and details regarding this study in clinic today. In order to be eligible for the study, we would need to confirm that she is postmenopausal. The patient reports that she has recently had blood tests to study this and we will attempt to obtain these from her primary care physician. The patient will also be meeting with Dr. Harpal Calix with medical oncology today to discuss systemic treatment options. Thank you for involving us in the care of this patient. Zachery Contreras M.D., Ph.D. Resident Department of Radiation Oncology I saw and examined Ms. Denney with Dr Contreras. I agree with his note. Ms. Denney ahs a right breast stage I cancer. Her breast exam shows no regional adenopathy, no suspicious masses; only changes from surgery. I recommend adjuvant radiation therapy and discussed whole and partial breast options; she decided on the latter. Erica Rodrigues M.D. Associate Radiation Oncologist Chief of the Breast Service Erica Rodrigues M.D. Approved: 01/15/2015 11:25:33 /[id number] V.ID: [id number] D.ID: [id number] CC: GASPER KABA M.D., Referring Physician RAIN JUNE, Primary Care Physician documented in this encounter Plan of Treatment Not on file documented as of this encounter Visit Diagnoses Diagnosis Encounter for antineoplastic radiation therapy Malignant neoplasm of central portion of right female breast (HCC) documented in this encounter
--- OUTSIDE RECORDS SUMMARY | 2024-04-24 05:58 | XMS_ITS | Encounter Summary ---
Author Organization [facility] Care Team Providers Care Hand Stamper Name Role Phone Unavailable Primary Care Provider Unavailabl e Encounter Details Date Type Department Care Team (Late st Contact Info) Description 07/12/2015 - 07/12/2015 11:59 PM CDT Hospital Encounter [facility] Harpal Soto MD [address] [place] [address] [address] Pain of left hand; Pain of right hand; Malignant neoplasm of central portion of right female breast (CMS/HCC); Malignant neoplasm of female breast (CMS/HCC) Social History Tobacco Use Types Packs/Day Years Used Date Smoking Tobacco: Never Assessed Comments Unknown Sex and Gender Information Value Date Recorded Sex Assigned at Not on file 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 BEE CASPER M.D. FINAL REPORT The radiology attending physician has personally reviewed this study, and has reviewed and/or edited this written report and agrees with it. ACC# ??Date Time ??Exam [id number] Jul 12, 2015 09:56:00 76456 Hand 2 views R [id number] Jul 12, 2015 09:56:00 [id number] Hand 2 views L ACC# ??Date Time ??Exam [id number] Jul 12, 2015 09:56:00 63926 Hand 2 views R [id number] Jul 12, 2015 09:56:00 [id number] Hand 2 views L EXAMINATION: 1. Right hand 2 views. 2. Left hand 2 views. HISTORY: ??Bilateral hand pain FINDINGS: ?? Two view examination of each hand is performed without comparisons. Joint spaces are normal. Alignment is normal. There is no fracture. ?? IMPRESSION: Normal radiographic examination of both hands. ?? Requested By: Dictated By: ?? BEE CASPER M.D. ??on Jul 12 2015 10:13A This document has been electronically signed by: GINGER MURGUIA M.D. on Jul 12 2015 ??1:05P [id number] Procedure Note Provider, MD Ronda - 08/04/2016 GINGER MURGUIA M.D. BEE CASPER M.D. FINAL REPORT The radiology attending physician has personally reviewed this study, and has reviewed and/or edited this written report and agrees with it. ACC# Date Time Exam [id number] Jul 12, 2015 09:56:00 [id number] Hand 2 views R [id number] Jul 12, 2015 09:56:00 [id number] Hand 2 views L ACC# Date Time Exam [id number] Jul 12, 2015 09:56:00 07461 Hand 2 views R [id number] Jul 12, 2015 09:56:00 [id number] Hand 2 views L EXAMINATION: 1. Right hand 2 views. 2. Left hand 2 views. HISTORY: Bilateral hand pain FINDINGS: Two view examination of each hand is performed without comparisons. Joint spaces are normal. Alignment is normal. There is no fracture. IMPRESSION: Normal radiographic examination of both hands. Requested By: Dictated By: BEE CASPER M.D. on Jul 12 2015 10:13A This document has been electronically signed by: GINGER MURGUIA M.D. on Jul 12 2015 1:05P [id number] us Historical Provider MD PERALES XR PROCEDURES Final R esult * XR Hand Left 2 View (07/12/2015 9:56 AM CDT) Anatomical Region Laterality Modality Upper Extremities, Hand [facility] 07/12/2015 9:56 AM CDT Narrative 07/12/2015 1:05 PM CDT Kori CLAYTON M.D. FINAL REPORT The radiology attending physician has personally reviewed this study, and has reviewed and/or edited this written report and agrees with it. ACC# ??Date Time ??Exam [id number] Jul 12, 2015 09:56:00 [id number] Hand 2 views R [id number] Jul 12, 2015 09:56:00 [id number] Hand 2 views L ACC# ??Date Time ??Exam [id number] Jul 12, 2015 09:56:00 74330 Hand 2 views R [id number] Jul 12, 2015 09:56:00 [id number] Hand 2 views L EXAMINATION: 1. Right hand 2 views. 2. Left hand 2 views. HISTORY: ??Bilateral hand pain FINDINGS: ?? Two view examination of each hand is performed without comparisons. Joint spaces are normal. Alignment is normal. There is no fracture. ?? IMPRESSION: Normal radiographic examination of both hands. ?? Requested By: Dictated By: ?? BEE CASPER M.D. ??on Jul 12 2015 10:13A This document has been electronically signed by: GINGER MURGUIA M.D. on Jul 12 2015 ??1:05P [id number] Procedure Note Provider, Ronda, - 08/04/2016 Kori CLAYTON M.D. FINAL REPORT The radiology attending physician has personally reviewed this study, and has reviewed and/or edited this written report and agrees with it. ACC# Date Time Exam [id number] Jul 12, 2015 09:56:00 [id number] Hand 2 views R [id number] Jul 12, 2015 09:56:00 [id number] Hand 2 views L ACC# Date Time Exam [id number] Jul 12, 2015 09:56:00 [id number] Hand 2 views R [id number] Jul 12, 2015 09:56:00 [id number] Hand 2 views L EXAMINATION: 1. Right hand 2 views. 2. Left hand 2 views. HISTORY: Bilateral hand pain FINDINGS: Two view examination of each hand is performed without comparisons. Joint spaces are normal. Alignment is normal. There is no fracture. IMPRESSION: Normal radiographic examination of both hands. Requested By: Dictated By: BEE CASPER M.D. on Jul 12 2015 10:13A This document has been electronically signed by: GINGER MURGUIA M.D. on Jul 12 2015 1:05P [id number] Historical Provider MD PERALES XR PROCEDURES Final R esult documented in this encounter Visit Diagnoses Diagnosis Pain of left hand Pain of right hand Malignant neoplasm of central portion of right female breast (HCC) Malignant neoplasm of female breast (HCC) Malignant neoplasm of breast (female), unspecified site documented in this encounter
--- OUTSIDE RECORDS SUMMARY | 2024-04-24 05:58 | XMS_ITS | Encounter Summary ---
Author Organization [facility] Healthcare Address [address] [place] [address] Care Team Providers Care Technical Director Name Role Phone Mark Cerna DO Primary Care Provider [phone]- [phone] Encounter Details Date Type Department Care Team (Latest Contact Info) Description 11/06/2016 4:02 PM CDT - 11/06/2016 11:59 PM T Hospital Encounter [facility] [phone] Patricia Martinez MD [address] [facility] [address] [place] [address] Discharge Disposition: Discharge to home or self care Social History Tobacco Use Types Packs/Day Years Used Date Smoking Tobacco: Never Assessed Comments Unknown Sex and Gender Information Value Date Recorded Sex Assigned at Not on file 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 [...] Procedure Name Priority Date/Time Associated Diagnosis Comments HEPATITIS C ANTIBODY Routine Gen Lab 11/06/2016 6:04 PM CDT HEPATITIS B CORE IGM Routine Gen Lab 11/06/2016 6:04 PM CDT HEPATITIS B SURFACE ANTIBODY (IMMUNE STATUS) Routine Gen Lab 11/06/2016 6:04 PM CDT HEPATITIS B SURFACE ANTIGEN Routine Gen Lab 11/06/2016 6:04 PM CDT ERYTHROCYTE SEDIMENTATION RATE Routine Gen Lab 11/06/2016 6:04 PM CDT DISCHARGE LABORATORY CUMULATIVE REPORT 11/06/2016 12:00 AM CDT documented in this encounter Results * Hepatitis B surface antibody (11/06/2016 6:04 PM CDT) Pathologist [facility] HBsAb (immune status) Reactive [facility] Comment: Interpretive Data A Negative Result indicates HBsAb of less than 10mIU/mL; a Positive Result indicates HBsAb of greater than or equal to 10mIU/mL. If qualitative result is Positive, HBsAb Quantitation will be reported. Assay performance characteristics have not been established as an aid in determining susceptibility to HBV infection prior to or following vaccination in infants, or children. For monitoring serum HBsAb levels during hepatitis B immunoglobulin (HBIG) therapy in transplant recipients, please refer to institutional HBIG protocol for desirable HBsAb levels. Current interpretive data was last revised on 2016. HBsAb (immune status) index 103.5 mIUnits/m L KATHY REYNA Blood specimen (specimen) 11/06/2016 6:04 PM CDT 11/06/2016 6:14 PM CDT us Patricia Martinez MD LAB MICROBIOLOGY - GENERAL O RDERABLES Final Result [facility] Department [place] [address] * Hepatitis B surface antigen (11/06/2016 6:04 PM CDT) HepBsAg Nonreactive Nonreactive [facility] Blood specimen (specimen) 11/06/2016 6:04 PM CDT 11/06/2016 6:14 PM CDT Patricia Martinez MD LAB MICROBIOLOGY - GENERAL O BEAU Edited Result - Final Performing Organization Address [facility] Co de Phone Number [facility] [place] [address] * Hepatitis C antibody (11/06/2016 6:04 PM CDT) [facility] Hep C Ab Nonreactive Nonreactive [facility] Comment: Interpretive Data Positive and greyzone results should be confirmed by a molecular method. If positive or greyzone, a second separately collected sample should be submitted for Hepatitis C Virus RNA. Detection and Quantitation by Real-Time Reverse Therapist Occupational-PCR.Current Interpretive data was last revised on 2016. Blood specimen (specimen) 11/06/2016 6:04 PM CDT 11/06/2016 6:14 PM CDT Patricia Martinez MD LAB MICROBIOLOGY - GENERAL O AMYERATIMOTHY Edited Result - Final Performing Organization Address [facility] [place] [address] * Hepatitis B core antibody, IgM (11/06/2016 6:04 PM CDT) [facility] Hep B core IgM Nonreactive Nonreactive [facility] Comment: Interpretive Data If test is reported as GRAYZONE, new sample should be drawn for testing. Current interpretive data was last revised on 2016. Blood specimen (specimen) 11/06/2016 6:04 PM CDT 11/06/2016 6:14 PM CDT Patricia Martinez MD LAB MICROBIOLOGY - GENERAL O AMYERATIMOTHY Edited Result - Final [facility] [place] [address] * Erythrocyte sedimentation rate (11/06/2016 6:04 PM CDT) Erythrocyte sedimentation rate 6 0 - 35 mm/H [facility] Blood specimen (specimen) 11/06/2016 6:04 PM CDT 11/06/2016 6:13 PM CDT us Patricia Martinez MD LAB BLOOD ORDERABLES Final R esult Performing Organization Address [facility] Co de Phone Number [facility] [place] [address] * DISCHARGE LABORATORY CUMULATIVE REPORT (11/06/2016 12:00 AM CDT) Narrative 11/06/2016 12:00 AM CDT Ordered by an unspecified provider. us Historical Provider LAB BLOOD ORDERABLES Mary l Result documented in this encounter Visit Diagnoses Not on filedocumented in this encounter Care Teams Technical Director Relationship Specialty Start Date End Date Mark Cerna DO PCP - General 09/04/16 01/17/19 documented as of this encounter
--- OUTSIDE RECORDS SUMMARY | 2024-04-24 05:58 | XMS_ITS | Encounter Summary ---
Author Organization [facility] Facility Care Team Providers Care Embossing Machine Operator Helper Name Role Phone Unavailable Primary Care Provider Unavailabl e Encounter Details Date Type Department Care Team (Late st Contact Info) Description 11/27/2015 4:33 PM CDT - 11/27/2015 11:59 PM CDT Hospital Encounter [facility] Patricia Coronado MD 10 [facility] [address] [place] [address] Rheumatoid arthritis (CMS/[facility]) Social History Tobacco Use Types Packs/Day Years Used Date Smoking Tobacco: Never Assessed Comments Unknown Sex and Gender Information Value Date Recorded Sex Assigned at Not on file 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 Gender Identity Not on file Sexual Orientation Not on file documented as of this encounter Medications at Time of Discharge methotrexate 2.5 mg tablet TAKE 8 TABLETS ONCE WEEKLY 09/07/2015 02/19/2018 documented as of this encounter Plan of Treatment Not on file documented as of this encounter Procedures Procedure Name Priority Date/Time Associated Diagnosis Comments BLOOD ERYTHROCYTE SEDIMENTATION RATE (ESR) Routine 11/27/2015 1:24 PM CDT DISCHARGE LABORATORY CUMULATIVE REPORT 11/27/2015 documented in this encounter Results * Blood erythrocyte sedimentation rate (ESR) (11/27/2015 1:24 PM CDT) Erythrocyte sedimentation rate 9.0 0.0 - 35.0 mm/hr CDR HISTORICAL RESULTS Blood specimen (specimen) 11/27/2015 1:24 PM CDT Patricia Martinez MD LAB BLOOD ORDERABLES Final R esult CDR HISTORICAL RESULTS * DISCHARGE LABORATORY CUMULATIVE REPORT (11/27/2015) Narrative 11/27/2015 Ordered by an unspecified provider. Historical Provider LAB BLOOD ORDERABLES Mary l Result documented in this encounter Visit Diagnoses Diagnosis Rheumatoid arthritis (HCC) documented in this encounter
--- OUTSIDE RECORDS SUMMARY | 2024-04-24 05:58 | XMS_ITS | Encounter Summary ---
Author Organization [facility] Facility Care Team Providers Care Technician Terminal And Repeater Name Role Phone Unavailable Primary Care Provider Unavailabl e Encounter Details Date Type Department Care Team (Late st Contact Info) Description 05/04/2015 - 09/14/2015 10:37 PM CDT Hospital Encounter [facility] Erica Armijo MD [address] [facility] [address] [facility] [address] [place] [address] Social History Tobacco Use Types Packs/Day Years Used Date Smoking Tobacco: Never Assessed Comments Unknown Sex and Gender Information Value Date Recorded Sex Assigned at Not on file 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
--- OUTSIDE RECORDS SUMMARY | 2024-04-24 05:58 | XMS_ITS | Encounter Summary ---
Author Organization [facility] Facility Care Team Providers Care Mold Mechanic Name Role Phone Unavailable Primary Care Provider Unavailabl e Encounter Details Date Type Department Care Team (Late st Contact Info) Description 07/17/2015 - 07/17/2015 11:59 PM CDT Hospital Encounter [facility] Patricia Coronado MD [address] [facility] [address] [place] [address] Social History Tobacco Use Types Packs/Day Years Used Date Smoking Tobacco: Never Assessed Comments Unknown Sex and Gender Information Value Date Recorded Sex Assigned at Not on file 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
--- OUTSIDE RECORDS SUMMARY | 2024-04-24 05:58 | XMS_ITS | Encounter Summary ---
Author Organization [facility] Facility Care Team Providers Care Grease Refining Supervisor Name Role Phone Unavailable Primary Care Provider Unavailabl e Encounter Details Date Type Department Care Team (Late st Contact Info) Description 01/09/2010 - 01/09/2010 11:59 PM CDT Hospital Encounter [facility] Valorie Saez MD [address] [address] Dizziness and giddiness Social History Tobacco Use Types Packs/Day Years Used Date Smoking Tobacco: Never Assessed Comments Unknown Sex and Gender Information Value Date Recorded Sex Assigned at Not on file 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
--- OUTSIDE RECORDS SUMMARY | 2024-04-24 05:58 | XMS_ITS | Encounter Summary ---
Author Organization [facility] Facility Care Team Providers Care Construction Project Assistant Name Role Phone Unavailable Primary Care Provider Unavailabl e Encounter Details Date Type Department Care Team (Late st Contact Info) Description 11/10/2014 9:48 AM CDT - 11/10/2014 4:00 PM CDT Hospital Encounter [facility] Gasper Kaba MD [address] [address] Pre-procedural laboratory examination; Malignant neoplasm of breast (female) (CMS/HCC); Essential hypertension; Cerebral aneurysm, nonruptured; Raynaud's syndrome; Encounter for long-term (current) use of other medications Social History Tobacco Use Types Packs/Day Years Used Date Smoking Tobacco: Never Assessed Comments Unknown Sex and Gender Information Value Date Recorded Sex Assigned at Not on file 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 Gender Identity Not on file Sexual Orientation Not on file documented as of this encounter Plan of Treatment Not on file documented as of this encounter Procedures Procedure Name Priority Date/Time Associated Diagnosis Comments PLASMA BASIC METABOLIC PANEL Routine 11/10/2014 11:21 AM CDT DISCHARGE LABORATORY CUMULATIVE REPORT 11/10/2014 documented in this encounter Results * Plasma basic metabolic panel (11/10/2014 11:21 AM CDT) Sodium 141 135 - 145 mmol/L HISTORICAL RESULTS K, pl 4.2 3.3 - 4.9 mmol/L HISTORICAL RESULTS Chloride 103 97 - 110 mmol/L HISTORICAL RESULTS CO2 27 22 - 32 mmol/L HISTORICAL RESULTS A. gap 11 0 - 16 mmol/L HISTORICAL RESULTS Glucose 94 70 - 199 mg/dl HISTORICAL RESULTS BUN 16 8 - 25 mg/dl HISTORICAL RESULTS Creatinine 0.85 0.60 - 1.10 mg/dl HISTORICAL RESULTS Calcium 9.6 8.6 - 10.3 mg/dl HISTORICAL RESULTS Plasma 11/10/2014 11:2 1 AM CDT Renetta Evangelista NP LAB BLOOD ORDERABLES Mary l Result HISTORICAL RESULTS * DISCHARGE LABORATORY CUMULATIVE REPORT (11/10/2014) Narrative 11/10/2014 Ordered by an unspecified provider. Historical Provider LAB BLOOD ORDERABLES Mary l Result documented in this encounter Visit Diagnoses Diagnosis Pre-procedural laboratory examination Malignant neoplasm of breast (female) (HCC) Malignant neoplasm of breast (female), unspecified site Essential hypertension Unspecified essential hypertension Cerebral aneurysm, nonruptured Raynaud's syndrome Encounter for long-term (current) use of other medications documented in this encounter
--- OUTSIDE RECORDS SUMMARY | 2024-04-24 05:58 | XMS_ITS | Encounter Summary ---
Author Organization [facility] Facility Care Team Providers Care Product Test Specialist Name Role Phone Unavailable Primary Care Provider Unavailabl e Encounter Details Date Type Department Care Team (Late st Contact Info) Description 12/06/2014 - 04/12/2015 11:59 PM [employer] Hospital Encounter [facility] Harpal Soto MD [address] [address] Malignant neoplasm of central portion of right female breast (CMS/HCC) Social History Tobacco Use Types Packs/Day Years Used Date Smoking Tobacco: Never Assessed Comments Unknown Sex and Gender Information Value Date Recorded Sex Assigned at Not on file Legal Sex Female 3:42 AM [employer] Gender Identity Not on file Sexual Orientation Not on file documented as of this encounter Plan of Treatment Not on file documented as of this encounter Procedures Procedure Name Priority Date/Time Associated Diagnosis Comments DISCHARGE LABORATORY CUMULATIVE REPORT 04/12/2015 BLOOD CELL COUNT Routine 03/22/2015 8:24 AM [employer] PLASMA COMPREHENSIVE METABOLIC PANEL Routine 03/22/2015 8:12 AM [employer] PLASMA COMPREHENSIVE METABOLIC PANEL Routine 03/01/2015 8:20 AM [employer] BLOOD CELL COUNT Routine 03/01/2015 8:15 AM [employer] BLOOD CELL COUNT Routine 02/08/2015 8:40 AM CDT PLASMA COMPREHENSIVE METABOLIC PANEL Routine 02/08/2015 8:35 AM CDT PLASMA PROTHROMBIN TIME (PT) Routine 01/04/2015 10:56 AM CDT PLASMA PARTIAL THROMBOPLASTIN TIME (PTT) Routine 01/04/2015 10:56 AM CDT SERUM CA 15-3 AG Routine 01/04/2015 9:44 AM CDT PLASMA COMPREHENSIVE METABOLIC PANEL Routine 01/04/2015 9:44 AM CDT BLOOD CELL COUNT Routine 01/04/2015 9:44 AM CDT documented in this encounter Results * DISCHARGE LABORATORY CUMULATIVE REPORT (04/12/2015) Narrative 04/12/2015 Ordered by an unspecified provider. us Historical Provider LAB BLOOD ORDERABLES Mary l Result * (ABNORMAL) Blood cell count [CBC] panel, 7 CAM (03/22/2015 8:24 AM [employer]) WBC 7.6 3.8 - 9.8 K/cumm HISTORICAL RESULTS RBC 3.98 3.90 - 5.00 M/cumm HISTORICAL RESULTS Hgb 12.0(L) 12.1 - 15.1 g/dl HISTORICAL RESULTS Hct 36.6 36.1 - 44.3 % HISTORICAL RESULTS MCV 92.0 80.0 - 97.6 fl HISTORICAL RESULTS MCH 30.2 26.7 - 33.7 pg HISTORICAL RESULTS MCHC 32.8 32.7 - 35.5 g/dl HISTORICAL RESULTS Rdw 13.7 11.8 - 14.6 % HISTORICAL RESULTS Platelets 218 140 - 440 K/cumm HISTORICAL RESULTS MPV 8.3 6.8 - 10.4 fl HISTORICAL RESULTS Neutrophils 77.6(H) 38.7 - 74.5 % HISTORICAL RESULTS Lymphocytes 9.0(L) 20.0 - 54.3 % HISTORICAL RESULTS Monos 11.6 4.3 - 13.5 % HISTORICAL RESULTS Eosinophils 1.2 0.0 - 6.0 % HISTORICAL RESULTS Basophils 0.6 0.0 - 3.0 % HISTORICAL RESULTS Neutrophils, abs 5.9 1.8 - 6.6 K/cumm HISTORICAL RESULTS Lymphocytes, abs 0.7(L) 1.2 - 3.3 K/cumm HISTORICAL RESULTS Monocytes, absolute 0.9 0.2 - 1.2 K/cumm HISTORICAL RESULTS Eosinophils, abs 0.1 0.0 - 0.5 K/cumm HISTORICAL RESULTS Basophils, abs 0.0 0.0 - 0.2 K/cumm HISTORICAL RESULTS Blood specimen (specimen) 03/22/2015 8:24 AM [employer] Harpal Calix MD LAB BLOOD ORDERABLES Mary l Result Performing Organization Address [facility] de Phone Number HISTORICAL RESULTS * (ABNORMAL) Plasma comprehensive metabolic panel (03/22/2015 8:12 AM [employer]) Sodium 142 135 - 145 mmol/L HISTORICAL RESULTS K, pl 4.1 3.3 - 4.9 mmol/L HISTORICAL RESULTS Chloride 106 97 - 110 mmol/L HISTORICAL RESULTS CO2 28 22 - 32 mmol/L HISTORICAL RESULTS A. gap 8 0 - 16 mmol/L HISTORICAL RESULTS Glucose 111 70 - 199 mg/dl HISTORICAL RESULTS BUN 12 8 - 25 mg/dl HISTORICAL RESULTS Creatinine 0.60 0.60 - 1.10 mg/dl HISTORICAL RESULTS Calcium 9.5 8.6 - 10.3 mg/dl HISTORICAL RESULTS Protein, pl 6.9 6.5 - 8.5 g/dl HISTORICAL RESULTS Alb 4.0 3.6 - 5.0 g/dl HISTORICAL RESULTS Bilirubin 0.2(L) 0.3 - 1.1 mg/dl HISTORICAL RESULTS Alk phos 52 38 - 126 Units/L HISTORICAL RESULTS AST 27 11 - 47 Units/L HISTORICAL RESULTS ALT 34 7 - 53 Units/L HISTORICAL RESULTS Plasma 03/22/2015 8:12 AM [employer] Harpal Calix MD LAB BLOOD ORDERABLES Mary l Result Performing Organization Address [facility] de Phone Number HISTORICAL RESULTS * (ABNORMAL) Plasma comprehensive metabolic panel (03/01/2015 8:20 AM [employer]) Sodium 141 135 - 145 mmol/L HISTORICAL RESULTS K, pl 4.6 3.3 - 4.9 mmol/L HISTORICAL RESULTS Chloride 106 97 - 110 mmol/L HISTORICAL RESULTS CO2 28 22 - 32 mmol/L HISTORICAL RESULTS A. gap 8 0 - 16 mmol/L HISTORICAL RESULTS Glucose 106 70 - 199 mg/dl HISTORICAL RESULTS BUN 16 8 - 25 mg/dl HISTORICAL RESULTS Creatinine 0.65 0.60 - 1.10 mg/dl HISTORICAL RESULTS Calcium 9.3 8.6 - 10.3 mg/dl HISTORICAL RESULTS Protein, pl 6.7 6.5 - 8.5 g/dl HISTORICAL RESULTS Alb 4.2 3.6 - 5.0 g/dl HISTORICAL RESULTS Bilirubin 0.2(L) 0.3 - 1.1 mg/dl HISTORICAL RESULTS Alk phos 48 38 - 126 Units/L HISTORICAL RESULTS AST 53(H) 11 - 47 Units/L HISTORICAL RESULTS ALT 101(H) 7 - 53 Units/L HISTORICAL RESULTS Plasma 03/01/2015 8:20 AM [employer] Harpal Calix MD LAB BLOOD ORDERABLES Mary l Result HISTORICAL RESULTS * (ABNORMAL) Blood cell count [CBC] panel, 7 CAM (03/01/2015 8:15 AM [employer]) WBC 6.9 3.8 - 9.8 K/cumm HISTORICAL RESULTS RBC 4.14 3.90 - 5.00 M/cumm HISTORICAL RESULTS Hgb 12.6 12.1 - 15.1 g/dl HISTORICAL RESULTS Hct 38.6 36.1 - 44.3 % HISTORICAL RESULTS MCV 93.3 80.0 - 97.6 fl HISTORICAL RESULTS MCH 30.5 26.7 - 33.7 pg HISTORICAL RESULTS MCHC 32.7 32.7 - 35.5 g/dl HISTORICAL RESULTS Rdw 13.5 11.8 - 14.6 % HISTORICAL RESULTS Platelets 198 140 - 440 K/cumm HISTORICAL RESULTS MPV 8.2 6.8 - 10.4 fl HISTORICAL RESULTS Neutrophils 75.2(H) 38.7 - 74.5 % HISTORICAL RESULTS Lymphocytes 13.2(L) 20.0 - 54.3 % HISTORICAL RESULTS Monos 10.2 4.3 - 13.5 % HISTORICAL RESULTS Eosinophils 0.6 0.0 - 6.0 % HISTORICAL RESULTS Basophils 0.8 0.0 - 3.0 % HISTORICAL RESULTS Neutrophils, abs 5.2 1.8 - 6.6 K/cumm HISTORICAL RESULTS Lymphocytes, abs 0.9(L) 1.2 - 3.3 K/cumm HISTORICAL RESULTS Monocytes, absolute 0.7 0.2 - 1.2 K/cumm HISTORICAL RESULTS Eosinophils, abs 0.0 0.0 - 0.5 K/cumm HISTORICAL RESULTS Basophils, abs 0.1 0.0 - 0.2 K/cumm HISTORICAL RESULTS Blood specimen (specimen) 03/01/2015 8:15 AM [employer] Harpal Calix MD LAB BLOOD ORDERABLES Mary valadez Result HISTORICAL RESULTS * (ABNORMAL) Blood cell count [CBC] panel, 7 CAM (02/08/2015 8:40 AM CDT) WBC 5.5 3.8 - 9.8 K/cumm HISTORICAL RESULTS RBC 4.43 3.90 - 5.00 M/cumm HISTORICAL RESULTS Hgb 13.5 12.1 - 15.1 g/dl HISTORICAL RESULTS Hct 41.9 36.1 - 44.3 % HISTORICAL RESULTS MCV 94.6 80.0 - 97.6 fl HISTORICAL RESULTS MCH 30.4 26.7 - 33.7 pg HISTORICAL RESULTS MCHC 32.1(L) 32.7 - 35.5 g/dl HISTORICAL RESULTS Rdw 13.9 11.8 - 14.6 % HISTORICAL RESULTS Platelets 214 140 - 440 K/cumm HISTORICAL RESULTS MPV 8.4 6.8 - 10.4 fl HISTORICAL RESULTS Neutrophils 74.6(H) 38.7 - 74.5 % HISTORICAL RESULTS Lymphocytes 13.8(L) 20.0 - 54.3 % HISTORICAL RESULTS Monos 10.0 4.3 - 13.5 % HISTORICAL RESULTS Eosinophils 0.8 0.0 - 6.0 % HISTORICAL RESULTS Basophils 0.8 0.0 - 3.0 % HISTORICAL RESULTS Neutrophils, abs 4.1 1.8 - 6.6 K/cumm HISTORICAL RESULTS Lymphocytes, abs 0.8(L) 1.2 - 3.3 K/cumm HISTORICAL RESULTS Monocytes, absolute 0.6 0.2 - 1.2 K/cumm HISTORICAL RESULTS Eosinophils, abs 0.0 0.0 - 0.5 K/cumm HISTORICAL RESULTS Basophils, abs 0.0 0.0 - 0.2 K/cumm HISTORICAL RESULTS Blood specimen (specimen) 02/08/2015 8:40 AM CDT Harpal Calix MD LAB BLOOD ORDERABLES Mary valadez Result Performing Organization Address [facility] de Phone Number HISTORICAL RESULTS * (ABNORMAL) Plasma comprehensive metabolic panel (02/08/2015 8:35 AM CDT) Sodium 142 135 - 145 mmol/L HISTORICAL RESULTS K, pl 4.2 3.3 - 4.9 mmol/L HISTORICAL RESULTS Chloride 104 97 - 110 mmol/L HISTORICAL RESULTS CO2 31 22 - 32 mmol/L HISTORICAL RESULTS A. gap 7 0 - 16 mmol/L HISTORICAL RESULTS Glucose 71 70 - 199 mg/dl HISTORICAL RESULTS BUN 13 8 - 25 mg/dl HISTORICAL RESULTS Creatinine 0.69 0.60 - 1.10 mg/dl HISTORICAL RESULTS Calcium 9.4 8.6 - 10.3 mg/dl HISTORICAL RESULTS Protein, pl 7.5 6.5 - 8.5 g/dl HISTORICAL RESULTS Alb 4.5 3.6 - 5.0 g/dl HISTORICAL RESULTS Bilirubin 0.2(L) 0.3 - 1.1 mg/dl HISTORICAL RESULTS Alk phos 57 38 - 126 Units/L HISTORICAL RESULTS AST 41 11 - 47 Units/L HISTORICAL RESULTS ALT 55(H) 7 - 53 Units/L HISTORICAL RESULTS Plasma 02/08/2015 8:35 AM CDT Harpal Calix MD LAB BLOOD ORDERABLES Mary valadez Result Performing Organization Address [facility] de Phone Number HISTORICAL RESULTS * Plasma partial thromboplastin time (PTT) (01/04/2015 10:56 AM CDT) APTT 33.3 25.0 - 37.0 seconds HISTORICAL RESULTS Comment: Interpretive Data Therapeutic heparin range:60.0 - 94.0 sec based on correlation with therapeutic heparin activity range of 0.3 -0.7 Units/mL. Current interpretive data was last revised on 2011. Plasma 01/04/2015 10:5 6 AM CDT Harpal Calix MD LAB BLOOD ORDERABLES Mary l Result Performing Organization Address [facility] de Phone Number HISTORICAL RESULTS * Plasma prothrombin time (PT) (01/04/2015 10:56 AM CDT) Prothrombin time (PT) 10.5 9.2 - 13.0 seconds HISTORICAL RESULTS INR 0.97 0.90 - 1.20 HISTORIC AL RESULTS Comment: Interpretive Data Inpatient therapeutic ranges* Atrial fibrillation ?2.0-3.0 INR Venous thrombo-embolism ?2.0-3.0 INR Bioprosthetic heart valve ?* Mechanical heart valve, bileaflet or tilting disk,aortic position ? 2.0-3.0 INR All other,or bileaflet or tilting disk, in mitral position ? 2.5-3.5 INR *See the pharmacy resource directory (PHRED) for an updated copy of the Tool Book at [email or web address] Current Interpretive Data was last revised 2011. Plasma 01/04/2015 10:5 6 AM CDT Harpal Calix MD LAB BLOOD ORDERABLES Mary l Result Performing Organization Address [facility] de Phone Number HISTORICAL RESULTS * (ABNORMAL) Blood cell count [CBC] panel, 7 CAM (01/04/2015 9:44 AM CDT) WBC 5.9 3.8 - 9.8 K/cumm HISTORICAL RESULTS RBC 4.57 3.90 - 5.00 M/cumm HISTORICAL RESULTS Hgb 14.1 12.1 - 15.1 g/dl HISTORICAL RESULTS Hct 43.7 36.1 - 44.3 % HISTORICAL RESULTS MCV 95.7 80.0 - 97.6 fl HISTORICAL RESULTS MCH 30.8 26.7 - 33.7 pg HISTORICAL RESULTS MCHC 32.2(L) 32.7 - 35.5 g/dl HISTORICAL RESULTS Rdw 14.0 11.8 - 14.6 % HISTORICAL RESULTS Platelets 225 140 - 440 K/cumm HISTORICAL RESULTS MPV 9.7 6.8 - 10.4 fl HISTORICAL RESULTS Neutrophils 67.3 38.7 - 74.5 % HISTORICAL RESULTS Lymphocytes 21.7 20.0 - 54.3 % HISTORICAL RESULTS Monos 8.4 4.3 - 13.5 % HISTORICAL RESULTS Eosinophils 2.0 0.0 - 6.0 % HISTORICAL RESULTS Basophils 0.6 0.0 - 3.0 % HISTORICAL RESULTS Neutrophils, abs 4.0 1.8 - 6.6 K/cumm HISTORICAL RESULTS Lymphocytes, abs 1.3 1.2 - 3.3 K/cumm HISTORICAL RESULTS Monocytes, absolute 0.5 0.2 - 1.2 K/cumm HISTORICAL RESULTS Eosinophils, abs 0.1 0.0 - 0.5 K/cumm HISTORICAL RESULTS Basophils, abs 0.0 0.0 - 0.2 K/cumm HISTORICAL RESULTS Blood specimen (specimen) 01/04/2015 9:44 AM CDT Harpal Calix MD LAB BLOOD ORDERABLES Mary l Result Performing Organization Address City/State/[facility] Co de Phone Number HISTORICAL RESULTS * Serum CA 15-3 ag (01/04/2015 9:44 AM CDT) CA 15-3 ag <9.0 0.0 - 32.0 Units/ml HISTORICAL RESULTS Serum 01/04/2015 9:44 AM CDT Harpal Calix MD LAB BLOOD ORDERABLES Mary l Result HISTORICAL RESULTS * (ABNORMAL) Plasma comprehensive metabolic panel (01/04/2015 9:44 AM CDT) Sodium 142 135 - 145 mmol/L HISTORICAL RESULTS K, pl 4.1 3.3 - 4.9 mmol/L HISTORICAL RESULTS Chloride 104 97 - 110 mmol/L HISTORICAL RESULTS CO2 30 22 - 32 mmol/L HISTORICAL RESULTS A. gap 8 0 - 16 mmol/L HISTORICAL RESULTS Glucose 62(L) 70 - 199 mg/dl HISTORICAL RESULTS BUN 13 8 - 25 mg/dl HISTORICAL RESULTS Creatinine 0.71 0.60 - 1.10 mg/dl HISTORICAL RESULTS Calcium 9.9 8.6 - 10.3 mg/dl HISTORICAL RESULTS Protein, pl 7.9 6.5 - 8.5 g/dl HISTORICAL RESULTS Alb 5.0 3.6 - 5.0 g/dl HISTORICAL RESULTS Bilirubin 0.4 0.3 - 1.1 mg/dl HISTORICAL RESULTS Alk phos 63 38 - 126 Units/L HISTORICAL RESULTS AST 25 11 - 47 Units/L HISTORICAL RESULTS ALT 46 7 - 53 Units/L HISTORICAL RESULTS Plasma 01/04/2015 9:44 AM CDT us Harpal Calix MD LAB BLOOD ORDERABLES Mary valadez Result HISTORICAL RESULTS documented in this encounter Visit Diagnoses Diagnosis Malignant neoplasm of central portion of right female breast (HCC) documented in this encounter
--- OUTSIDE RECORDS SUMMARY | 2024-04-24 05:58 | XMS_ITS | Encounter Summary ---
Author Organization [facility] Facility Care Team Providers Care Buttonhole Marker Name Role Phone Unavailable Primary Care Provider Unavailabl e Encounter Details Date Type Department Care Team (Late st Contact Info) Description 10/27/2014 Hospital Encounter [facility] Brandy Aguirre, PRESS OPERATOR [address] [place] [address] Lump or mass in breast; Malignant neoplasm of breast (female) (CMS/[facility]) Social History Tobacco Use Types Packs/Day Years Used Date Smoking Tobacco: Never Assessed Comments Unknown Sex and Gender Information Value Date Recorded Sex Assigned at Not on file Legal Sex Female 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 Gender Identity Not on file Sexual Orientation Not on file documented as of this encounter Plan of Treatment Not on file documented as of this encounter Procedures Procedure Name Priority Date/Time Associated Diagnosis Comments DIAGNOSTIC MAMMOGRAM 2D LEFT Routine 10/27/2014 11:40 AM CDT US GUIDED LOCALIZATION BREAST Routine 10/27/2014 11:28 AM CDT SURGICAL PATHOLOGY 10/27/2014 documented in this encounter Results * DIAGNOSTIC MAMMOGRAM 2D LEFT (10/27/2014 11:40 AM CDT) Anatomical Region Laterality Modality Breast Left Mammography 10/27/2014 11:4 0 AM CDT Narrative 11/01/2014 8:08 AM CDT KAYE GIBSON M.D. FINAL REPORT The radiology attending physician has personally reviewed this study, and has reviewed and/or edited this written report and agrees with it. ACC# ??Date Time ??Exam [id number] Oct 27, 2014 11:28:00 [facility] [id number] Breast Bx Incl Loc Sono R [id number] Oct 27, 2014 11:40:00 [facility] [id number] Mamm Unilat Post Bx Films R ?? Technologist(s): Amy Negrete; ; EXAMINATION: ?? ULTRASOUND-GUIDED CORE BIOPSY RIGHT BREAST, TISSUE MARKER CLIP PLACEMENT AND RIGHT UNILATERAL DIGITAL MAMMOGRAM HISTORY: 54-year-old woman with a palpable irregular solid mass in the upper central right breast, 1 cm from the nipple. Ultrasound-guided core needle biopsy is requested to evaluate for malignancy. PROCEDURE AND FINDINGS: The risks and potential benefits of the procedure were discussed with the patient and written informed consent was obtained. After sterile preparation of the skin, 1% lidocaine was utilized for local anesthesia. ??A small skin incision was made with a #11 scalpel blade. ??A 14-gauge spring-loaded biopsy device needle was then advanced through the skin incision to the edge of the lesion of interest from a lateral approach utilizing sonographic guidance. A total of 3 tissue cores were obtained through the lesion. An UltraClip ribbon-shaped tissue marker clip was then placed at the biopsy site. Hemostasis was achieved. A sterile bandage and an ice pack were applied. The patient tolerated the procedure well and there was no evidence of immediate complication. The patient was given verbal as well as written post procedural instructions prior to release from the department. ??The tissue cores were submitted to surgical pathology in formalin for histologic analysis. A two view RIGHT unilateral digital mammogram was obtained post procedure and this demonstrates that the tissue marker clip is in the expected position. The attending radiologist, Dr. Gibson, was present throughout the entire procedure. Dr. Ninfa Henry (breast imaging fellow) also participated in this examination. IMPRESSION: ?Successful ultrasound-guided core needle biopsy of the area of interest in the RIGHT breast. ??Pathology pending. ADDENDUM #1 by Natalie Hernandez RN for Dr. Kaye Gibson on 10/31/14 at 4:40 p.m.: Histopathology from the core needle biopsy above demonstrated invasive ductal carcinoma, no special type, grade 2/3. ??This is a malignant finding and surgical intervention is required. ??The patient was notified of the biopsy results and recommendations by Elina Agiurre, MSN, ACNS- of the [facility] on 10/31/14, and is scheduled to see Dr. Gasper Kaba for surgical consultation on 11/02/14. Requested By: Dictated By: ?? NINFA HENRY M.D. ??on Oct 27 2014 ??1:03P This document has been electronically signed by: KAYE GIBSON M.D. on Oct 27 2014 ??2:44P on Oct 31 2014 ??4:44P This Addendum has been electronically signed by: KAYE GIBSON M.D. on Nov 01 2014 ??8:08A [id number] Procedure Note Provider, MD Ronda - 08/04/2016 KAYE GIBSON M.D. FINAL REPORT The radiology attending physician has personally reviewed this study, and has reviewed and/or edited this written report and agrees with it. ACC# Date Time Exam [id number] Oct 27, 2014 11:28:00 [facility] 48082 Breast Bx Incl Loc Sono R [id number] Oct 27, 2014 11:40:00 [facility] [id number] Mamm Unilat Post Bx Films R Technologist(s): Amy Negrete; ; EXAMINATION: ULTRASOUND-GUIDED CORE BIOPSY RIGHT BREAST, TISSUE MARKER CLIP PLACEMENT AND RIGHT UNILATERAL DIGITAL MAMMOGRAM HISTORY: 54-year-old woman with a palpable irregular solid mass in the upper central right breast, 1 cm from the nipple. Ultrasound-guided core needle biopsy is requested to evaluate for malignancy. PROCEDURE AND FINDINGS: The risks and potential benefits of the procedure were discussed with the patient and written informed consent was obtained. After sterile preparation of the skin, 1% lidocaine was utilized for local anesthesia. A small skin incision was made with a #11 scalpel blade. A 14-gauge spring-loaded biopsy device needle was then advanced through the skin incision to the edge of the lesion of interest from a lateral approach utilizing sonographic guidance. A total of 3 tissue cores were obtained through the lesion. An UltraClip ribbon-shaped tissue marker clip was then placed at the biopsy site. Hemostasis was achieved. A sterile bandage and an ice pack were applied. The patient tolerated the procedure well and there was no evidence of immediate complication. The patient was given verbal as well as written post procedural instructions prior to release from the department. The tissue cores were submitted to surgical pathology in formalin for histologic analysis. A two view RIGHT unilateral digital mammogram was obtained post procedure and this demonstrates that the tissue marker clip is in the expected position. The attending radiologist, Dr. Gibson, was present throughout the entire procedure. Dr. Ninfa Henry (breast imaging fellow) also participated in this examination. IMPRESSION: Successful ultrasound-guided core needle biopsy of the area of interest in the RIGHT breast. Pathology pending. ADDENDUM #1 by Natalie Hernandez RN for Dr. Kaye Gibson on 10/31/14 at 4:40 p.m.: Histopathology from the core needle biopsy above demonstrated invasive ductal carcinoma, no special type, grade 2/3. This is a malignant finding and surgical intervention is required. The patient was notified of the biopsy results and recommendations by ADRIANA Kelly, ACNS-BC of the [facility] on 10/31/14, and is scheduled to see Dr. Gasper Kaba for surgical consultation on 11/02/14. Requested By: Dictated By: NINFA HENRY M.D. on Oct 27 2014 1:03P This document has been electronically signed by: KAYE GIBSON M.D. on Oct 27 2014 2:44P on Oct 31 2014 4:44P This Addendum has been electronically signed by: KAYE GIBSON M.D. on Nov 01 2014 8:08A [id number] us Historical Provider MD [facility]AL[facility] MAMMO PROCEDURES Mary l Result * US Guided Localization Breast (10/27/2014 11:28 AM CDT) Anatomical Region Laterality Modality Breast N/A Ultrasound 10/27/2014 11:2 8 AM CDT Narrative 11/01/2014 8:08 AM CDT KAYE GIBSON M.D. FINAL REPORT The radiology attending physician has personally reviewed this study, and has reviewed and/or edited this written report and agrees with it. ACC# ??Date Time ??Exam [id number] Oct 27, 2014 11:28:00 [facility] 10095 Breast Bx Incl Loc Sono R [id number] Oct 27, 2014 11:40:00 [facility] [id number] Mamm Unilat Post Bx Films R ?? Technologist(s): Amy Negrete; ; EXAMINATION: ?? ULTRASOUND-GUIDED CORE BIOPSY RIGHT BREAST, TISSUE MARKER CLIP PLACEMENT AND RIGHT UNILATERAL DIGITAL MAMMOGRAM HISTORY: 54-year-old woman with a palpable irregular solid mass in the upper central right breast, 1 cm from the nipple. Ultrasound-guided core needle biopsy is requested to evaluate for malignancy. PROCEDURE AND FINDINGS: The risks and potential benefits of the procedure were discussed with the patient and written informed consent was obtained. After sterile preparation of the skin, 1% lidocaine was utilized for local anesthesia. ??A small skin incision was made with a #11 scalpel blade. ??A 14-gauge spring-loaded biopsy device needle was then advanced through the skin incision to the edge of the lesion of interest from a lateral approach utilizing sonographic guidance. A total of 3 tissue cores were obtained through the lesion. An UltraClip ribbon-shaped tissue marker clip was then placed at the biopsy site. Hemostasis was achieved. A sterile bandage and an ice pack were applied. The patient tolerated the procedure well and there was no evidence of immediate complication. The patient was given verbal as well as written post procedural instructions prior to release from the department. ??The tissue cores were submitted to surgical pathology in formalin for histologic analysis. A two view RIGHT unilateral digital mammogram was obtained post procedure and this demonstrates that the tissue marker clip is in the expected position. The attending radiologist, Dr. Gibson, was present throughout the entire procedure. Dr. Ninfa Henry (breast imaging fellow) also participated in this examination. IMPRESSION: ?Successful ultrasound-guided core needle biopsy of the area of interest in the RIGHT breast. ??Pathology pending. ADDENDUM #1 by Natalie Hernandez RN for Dr. Kaye Gibson on 10/31/14 at 4:40 p.m.: Histopathology from the core needle biopsy above demonstrated invasive ductal carcinoma, no special type, grade 2/3. ??This is a malignant finding and surgical intervention is required. ??The patient was notified of the biopsy results and recommendations by Elina Aguirre, MSN, ACNS-BC of the [facility] on 10/31/14, and is scheduled to see Dr. Gasper Kaba for surgical consultation on 11/02/14. Requested By: Dictated By: ?? NINFA HENRY M.D. ??on Oct 27 2014 ??1:03P This document has been electronically signed by: KAYE GIBSON M.D. on Oct 27 2014 ??2:44P on Oct 31 2014 ??4:44P This Addendum has been electronically signed by: KAYE GIBSON M.D. on Nov 01 2014 ??8:08A [id number] Procedure Note Provider, MD Ronda - 08/04/2016 KAYE GIBSON M.D. FINAL REPORT The radiology attending physician has personally reviewed this study, and has reviewed and/or edited this written report and agrees with it. ACC# Date Time Exam [id number] Oct 27, 2014 11:28:00 [facility] [address]3286 Breast Bx Incl Loc Sono R [id number] Oct 27, 2014 11:40:00 [facility] [id number] Mamm Unilat Post Bx Films R Technologist(s): Amy Negrete; ; EXAMINATION: ULTRASOUND-GUIDED CORE BIOPSY RIGHT BREAST, TISSUE MARKER CLIP PLACEMENT AND RIGHT UNILATERAL DIGITAL MAMMOGRAM HISTORY: 54-year-old woman with a palpable irregular solid mass in the upper central right breast, 1 cm from the nipple. Ultrasound-guided core needle biopsy is requested to evaluate for malignancy. PROCEDURE AND FINDINGS: The risks and potential benefits of the procedure were discussed with the patient and written informed consent was obtained. After sterile preparation of the skin, 1% lidocaine was utilized for local anesthesia. A small skin incision was made with a #11 scalpel blade. A 14-gauge spring-loaded biopsy device needle was then advanced through the skin incision to the edge of the lesion of interest from a lateral approach utilizing sonographic guidance. A total of 3 tissue cores were obtained through the lesion. An UltraClip ribbon-shaped tissue marker clip was then placed at the biopsy site. Hemostasis was achieved. A sterile bandage and an ice pack were applied. The patient tolerated the procedure well and there was no evidence of immediate complication. The patient was given verbal as well as written post procedural instructions prior to release from the department. The tissue cores were submitted to surgical pathology in formalin for histologic analysis. A two view RIGHT unilateral digital mammogram was obtained post procedure and this demonstrates that the tissue marker clip is in the expected position. The attending radiologist, Dr. Gibson, was present throughout the entire procedure. Dr. Ninfa Henry (breast imaging fellow) also participated in this examination. IMPRESSION: Successful ultrasound-guided core needle biopsy of the area of interest in the RIGHT breast. Pathology pending. ADDENDUM #1 by Natalie Hernandez RN for Dr. Kaye Gibson on 10/31/14 at 4:40 p.m.: Histopathology from the core needle biopsy above demonstrated invasive ductal carcinoma, no special type, grade 2/3. This is a malignant finding and surgical intervention is required. The patient was notified of the biopsy results and recommendations by Elina Aguirre, MSN, ACNS- of the [facility] on 10/31/14, and is scheduled to see Dr. Gasper Kaba for surgical consultation on 11/02/14. Requested By: Dictated By: NINFA HENRY M.D. on Oct 27 2014 1:03P This document has been electronically signed by: KAYE GIBSON M.D. on Oct 27 2014 2:44P on Oct 31 2014 4:44P This Addendum has been electronically signed by: KAYE GIBSON M.D. on Nov 01 2014 8:08A [id number] us Historical Provider IMG US PROCEDURES Final R esult * Surgical pathology (10/27/2014) Narrative 10/27/2014 Ordered by an unspecified provider. us Historical Provider LAB PATHOLOGY ORDERABLES Final Result documented in this encounter Visit Diagnoses Diagnosis Lump or mass in breast Malignant neoplasm of breast (female) (HCC) Malignant neoplasm of breast (female), unspecified site documented in this encounter
--- OUTSIDE RECORDS SUMMARY | 2024-04-24 05:58 | XMS_ITS | Encounter Summary ---
Author Organization [facility] Facility Care Team Providers Care Medical Reviewer Name Role Phone Unavailable Primary Care Provider Unavailabl e Encounter Details Date Type Department Care Team (Late st Contact Info) Description 11/16/2014 5:38 AM CDT - 11/16/2014 4:00 PM CDT Hospital Encounter [facility] Gasper Gomez MD [address] [place] [address] Carcinoma in situ of breast Social History Tobacco Use Types Packs/Day Years Used Date Smoking Tobacco: Never Assessed Comments Unknown Sex and Gender Information Value Date Recorded Sex Assigned at Not on file 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 Surgeon: Gasper Kaba M.D. Dictating: Gasper Kaba M.D. Service Dt: 11/16/2014 OPERATIVE REPORT FIRST WOOD CARVING MACHINE OPERATOR: Daina Rowell M.D. ANESTHESIA: General. PREOPERATIVE DIAGNOSIS (ES): Right breast cancer. POSTOPERATIVE DIAGNOSIS (ES): Right breast cancer. NAME OF OPERATION: Right breast, needle directed, wide excision including tethered skin and right sentinel lymph node biopsy. INDICATIONS FOR PROCEDURE: The patient is a [age] year old woman who, in the shower, identified a small dimple just above the nipple and areolar complex of the right breast. This led to evaluation and mammogram which showed a spiculated lesion in the upper central right breast. A core biopsy demonstrated an infiltrating ductal cancer that was ER positive, AL positive and HER2/omar negative. Of note, the patient had some thickened skin on her mammogram right at the site of the dimpling which was tethered to where the spiculated malignancy was located. Therefore the patient presents for a right breast needle directed wide excision to include an ellipse of the skin that was tethered and dimpled. She will also have a sentinel lymph node biopsy. She understands the risks of infection, bleeding and scar formation, possible allergic reaction to blue dye, and the possibility of injury to the sensory or motor nerves in the axilla and the possibility of numbness or swelling in her axilla or arm. She has given written consent for this procedure. DESCRIPTION OF PROCEDURE: The patient was placed supine on the operating room table and prepped with Chloraprep solution and draped in a sterile fashion. She was given 2 g of Ancef antibiotic within one hour of the skin incision. She was given no other antibiotic prophylaxis. She was given DVT prophylaxis consisting of sequential compression boots immediately upon entering the operating room. She was given a lower body Chaitanya Hugger to maintain her core temperature. We began the operation by injecting 5 mL of methylene blue near the wire localization. After five minutes of manual compression, we made an axillary incision and were able to easily identify a blue lymphatic which was traced to actually a small cluster of small lymph nodes. These were excised as sentinel lymph nodes. We then identified a second blue stained lymph node near the excision of the first cluster of lymph nodes and this lymph node was also excised. This was labeled as sentinel lymph node #2. We could not identify any other blue, enlarged, nor palpable lymph nodes. We then copiously irrigated the wound with warm saline solution and ensured meticulous hemostasis and closed the wound with interrupted inverted 3-0 Vicryl, a running 5-0 subcuticular Vicryl and Steri-strips. A dry, sterile dressing was placed over the wound and we directed our attention to the breast. Directing our attention to the breast, we performed a crescent incision excising the area of skin around the wire localization, but also where the patient had tethering of the skin to the malignancy. We then removed all of the tissue between the wire localization and skin and the pectoral fascia. We also widely excised inferiorly and superiorly so that we basically removed the central portion of the breast and the specimen mammogram verified that the clip, the spiculated lesion, and the worrisome skin were all included in the wide excision in the center portion of it, and final pathologic diagnosis will be deferred until permanent section. We then copiously irrigated the wound with warm saline solution and ensured meticulous hemostasis. We then carefully closed the deep and the superficial layers of the breast with interrupted and inverted 3-0 Vicryl. We then closed the deep dermis with interrupted and inverted 3-0 Vicryl and the skin was reapproximated with a running 5-0 subcuticular Vicryl and Steri-strips. A dry sterile dressing was placed over the wound. The patient tolerated the procedure well. She was returned to the recovery room in excellent condition. SPECIMENS REMOVED: 1. A cluster of small sentinel lymph nodes. 2. A sentinel lymph node. 3. A right breast, needle directed, wide excision that included the dimpled area of skin and we specifically asked the pathologist to evaluate the skin to see if there was any malignancy in the dermal lymphatics. Final pathologic diagnosis of all specimens will be deferred until permanent section. ESTIMATED BLOOD LOSS: Minimal. INTRAOPERATIVE FLUIDS: Approximately 1100 mL of lactated Ringer's before and during the procedure. SPONGE/INSTRUMENT/NEEDLE COUNTS: Counts reported correct times two. COMPLICATIONS: None. PRESENCE STATEMENT: I was the attending surgeon. I was scrubbed from design of the initial skin incision and injection of the methylene blue through complete closure of both skin incisions. Electronically Signed By Gasper Kaba M.D. 11/16/2014 04:15 P Gasper Kaba M.D. NOEL/deloris #[id number] Editing MT: TD: 11/16/2014 11:45:00 cc: Gasper Kaba M.D. documented in this encounter Plan of Treatment Not on file documented as of this encounter Procedures Procedure Name Priority Date/Time Associated Diagnosis Comments RADIOLOGIC EXAMINATION OF SURGICAL SPECIMEN Routine 11/16/2014 10:29 AM CDT MAMMO GUIDED LOCALIZATION BREAST Routine 11/16/2014 8:12 AM CDT URINE CHORIONIC GONADOTROPIN (HCG) Routine 11/16/2014 6:40 AM CDT DISCHARGE LABORATORY CUMULATIVE REPORT 11/16/2014 SURGICAL PATHOLOGY 11/16/2014 documented in this encounter Results * SURGICAL SPECIMEN (11/16/2014 10:29 AM CDT) Anatomical Region Laterality Modality Breast N/A Mammography 11/16/2014 10:2 9 AM CDT Narrative 11/16/2014 11:37 AM CDT CADEN NICOLE M.D. VINAY GUERRERO M.D. FINAL REPORT The radiology attending physician has personally reviewed this study, and has reviewed and/or edited this written report and agrees with it. ACC# ??Date Time ??Exam [id number] Nov 16, 2014 08:12:00 [facility] [id number] Breast Localz Mamm Gd R [id number] Nov 16, 2014 10:29:00 [facility] [address]6467 Rad Exam Surgical Specimen R ACC# ??Date Time ??Exam [id number] Nov 16, 2014 08:12:00 [facility] [address]403 Breast Localz Mamm Gd R [id number] Nov 16, 2014 10:29:00 [facility] [address]80[address] Rad Exam Surgical Specimen R EXAMINATION: ?? RIGHT BREAST WIRE LOCALIZATION UTILIZING DIGITAL MAMMOGRAPHIC GUIDANCE AND SURGICAL SPECIMEN RADIOGRAPH. HISTORY: 54-year-old female with biopsy proven right breast invasive ductal carcinoma. PROCEDURE AND FINDINGS: The procedure was discussed with the patient and informed consent was obtained. The breast was placed in a compression grid, and the area of interest was localized with digital mammography. ?? After sterile preparation of the skin, 1% lidocaine was utilized for local anesthesia. A hook-wire system was advanced into the area of interest in the breast from a superior approach utilizing digital mammographic guidance. Orthogonal views were obtained to confirm appropriate needle/wire position. The patient tolerated the procedure well and there was no evidence of immediate complication. The images were marked for the surgeon, and the patient was transferred to the operating suite for surgical excision. A surgical specimen was subsequently received from the operating room and digital radiography was performed. The lesion of interest and tissue biopsy marker are included within the surgical specimen. These findings were communicated to the surgeon. The attending radiologist, Dr. Nicole, was present throughout the entire procedure. Dr. Martha Guerrero (breast imaging fellow) also participated in this examination. ?? IMPRESSION: ?? Successful wire localization of the known RIGHT breast cancer utilizing digital mammographic guidance. ?? Requested By: Dictated By: ?? VINAY GUERRERO M.D. ??on Nov ??2014 10:35A This document has been electronically signed by: CADEN NICOLE M.D. on Nov ??2014 11:37A [id number] Procedure Note Provider, MD Ronda - 08/04/2016 CADEN NICOLE M.D. VINAY GUERRERO M.D. FINAL REPORT The radiology attending physician has personally reviewed this study, and has reviewed and/or edited this written report and agrees with it. ACC# Date Time Exam [id number] Nov 16, 2014 08:12:00 [facility] [address]396 Breast Localz Mamm Gd R [id number] Nov 16, 2014 10:29:00 [facility] [address] Rad Exam Surgical Specimen R ACC# Date Time Exam [id number] Nov 16, 2014 08:12:00 [facility] [address]254 Breast Localz Mamm Gd R [id number] Nov 16, 2014 10:29:00 [facility] [address]34 Rad Exam Surgical Specimen R EXAMINATION: RIGHT BREAST WIRE LOCALIZATION UTILIZING DIGITAL MAMMOGRAPHIC GUIDANCE AND SURGICAL SPECIMEN RADIOGRAPH. HISTORY: 54-year-old female with biopsy proven right breast invasive ductal carcinoma. PROCEDURE AND FINDINGS: The procedure was discussed with the patient and informed consent was obtained. The breast was placed in a compression grid, and the area of interest was localized with digital mammography. After sterile preparation of the skin, 1% lidocaine was utilized for local anesthesia. A hook-wire system was advanced into the area of interest in the breast from a superior approach utilizing digital mammographic guidance. Orthogonal views were obtained to confirm appropriate needle/wire position. The patient tolerated the procedure well and there was no evidence of immediate complication. The images were marked for the surgeon, and the patient was transferred to the operating suite for surgical excision. A surgical specimen was subsequently received from the operating room and digital radiography was performed. The lesion of interest and tissue biopsy marker are included within the surgical specimen. These findings were communicated to the surgeon. The attending radiologist, Dr. Nicole, was present throughout the entire procedure. Dr. Martha Guerrero (breast imaging fellow) also participated in this examination. IMPRESSION: Successful wire localization of the known RIGHT breast cancer utilizing digital mammographic guidance. Requested By: Dictated By: VINAY GUERRERO M.D. on Nov 16 2014 10:35A This document has been electronically signed by: CADEN NICOLE M.D. on Nov 16 2014 11:37A [id number] Historical Provider MD PERALES MAMMO PROCEDURES Mary l Result * Mammo Guided Localization Breast (11/16/2014 8:12 AM CDT) Anatomical Region Laterality Modality Breast Mammography 11/16/2014 8:12 AM CDT Narrative 11/16/2014 11:37 AM CDT Kori GONZALEZ M.D. FINAL REPORT The radiology attending physician has personally reviewed this study, and has reviewed and/or edited this written report and agrees with it. ACC# ??Date Time ??Exam [id number] Nov 16, 2014 08:12:00 [facility] [address]163 Breast Localz Mamm Gd R [id number] Nov 16, 2014 10:29:00 [facility] [address]78[address] Rad Exam Surgical Specimen R ACC# ??Date Time ??Exam [id number] Nov 16, 2014 08:12:00 [facility] [address] Breast Localz Mamm Gd R [id number] Nov 16, 2014 10:29:00 [facility] [address]004 Rad Exam Surgical Specimen R EXAMINATION: ?? RIGHT BREAST WIRE LOCALIZATION UTILIZING DIGITAL MAMMOGRAPHIC GUIDANCE AND SURGICAL SPECIMEN RADIOGRAPH. HISTORY: 54-year-old female with biopsy proven right breast invasive ductal carcinoma. PROCEDURE AND FINDINGS: The procedure was discussed with the patient and informed consent was obtained. The breast was placed in a compression grid, and the area of interest was localized with digital mammography. ?? After sterile preparation of the skin, 1% lidocaine was utilized for local anesthesia. A hook-wire system was advanced into the area of interest in the breast from a superior approach utilizing digital mammographic guidance. Orthogonal views were obtained to confirm appropriate needle/wire position. The patient tolerated the procedure well and there was no evidence of immediate complication. The images were marked for the surgeon, and the patient was transferred to the operating suite for surgical excision. A surgical specimen was subsequently received from the operating room and digital radiography was performed. The lesion of interest and tissue biopsy marker are included within the surgical specimen. These findings were communicated to the surgeon. The attending radiologist, Dr. Nicole, was present throughout the entire procedure. Dr. Martha Guerrero (breast imaging fellow) also participated in this examination. ?? IMPRESSION: ?? Successful wire localization of the known RIGHT breast cancer utilizing digital mammographic guidance. ?? Requested By: Dictated By: ?? VINAY GUERRERO M.D. ??on Nov ??2014 10:35A This document has been electronically signed by: CADEN NICOLE M.D. on Nov ??2014 11:37A [id number] Procedure Note Provider, MD Ronda - 08/04/2016 CADEN NICOLE M.D. VINAY GUERRERO M.D. FINAL REPORT The radiology attending physician has personally reviewed this study, and has reviewed and/or edited this written report and agrees with it. ACC# Date Time Exam [id number] Nov 16, 2014 08:12:00 [facility] [address]15 Breast Localz Mamm Gd R [id number] Nov 16, 2014 10:29:00 [facility] [address] Rad Exam Surgical Specimen R ACC# Date Time Exam [id number] Nov 16, 2014 08:12:00 [facility] 19416 Breast Localz Mamm Gd R [id number] Nov 16, 2014 10:29:00 [facility] [address] Rad Exam Surgical Specimen R EXAMINATION: RIGHT BREAST WIRE LOCALIZATION UTILIZING DIGITAL MAMMOGRAPHIC GUIDANCE AND SURGICAL SPECIMEN RADIOGRAPH. HISTORY: 54-year-old female with biopsy proven right breast invasive ductal carcinoma. PROCEDURE AND FINDINGS: The procedure was discussed with the patient and informed consent was obtained. The breast was placed in a compression grid, and the area of interest was localized with digital mammography. After sterile preparation of the skin, 1% lidocaine was utilized for local anesthesia. A hook-wire system was advanced into the area of interest in the breast from a superior approach utilizing digital mammographic guidance. Orthogonal views were obtained to confirm appropriate needle/wire position. The patient tolerated the procedure well and there was no evidence of immediate complication. The images were marked for the surgeon, and the patient was transferred to the operating suite for surgical excision. A surgical specimen was subsequently received from the operating room and digital radiography was performed. The lesion of interest and tissue biopsy marker are included within the surgical specimen. These findings were communicated to the surgeon. The attending radiologist, Dr. Nicole, was present throughout the entire procedure. Dr. Martha Guerrero (breast imaging fellow) also participated in this examination. IMPRESSION: Successful wire localization of the known RIGHT breast cancer utilizing digital mammographic guidance. Requested By: Dictated By: VINAY GUERRERO M.D. on Nov 16 2014 10:35A This document has been electronically signed by: CADEN NICOLE M.D. on Nov 16 2014 11:37A [id number] Historical Provider IMG MAMMO PROCEDURES Mary l Result * Urine chorionic gonadotropin (HCG) (11/16/2014 6:40 AM CDT) HCG, ur Negative HISTORICAL RESULTS Urine 11/16/2014 6:40 AM CDT Gasper Kaba MD LAB BLOOD ORDERABLES Mary l Result HISTORICAL RESULTS * DISCHARGE LABORATORY CUMULATIVE REPORT (11/16/2014) Narrative 11/16/2014 Ordered by an unspecified provider. Historical Provider LAB BLOOD ORDERABLES Mary l Result * Surgical pathology (11/16/2014) Narrative 11/16/2014 Ordered by an unspecified provider. us [facility] Provider MD LAB PATHOLOGY ORDERABLES Final Result documented in this encounter Visit Diagnoses Diagnosis Carcinoma in situ of breast documented in this encounter
--- OUTSIDE RECORDS SUMMARY | 2024-04-24 05:58 | XMS_ITS | Encounter Summary ---
Author Organization [facility] Healthcare Address [address] [place] [address] Care Team Providers Care Insurance Claims Representative Name Role Phone Mark Cerna DO Primary Care Provider [phone] Encounter Details Date Type Department Care Team (Late st Contact Info) Description 10/01/2016 6:31 PM CDT - 10/01/2016 11:59 PM CDT Hospital Encounter [facility] Harpal Montoya MD [address] [place] [address] DR DEPT NEUROSURGERY, [place] [address] Discharge Disposition: Discharge to home or self care Social History Tobacco Use Types Packs/Day Years Used Date Smoking Tobacco: Never Assessed Comments Unknown Sex and Gender Information Value Date Recorded Sex Assigned at Not on file 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 MRA Brain WO HISTORY: CEREBRAL ANEURYSM. Follow-up cerebral aneurysm. CORRELATE IMAGIN10/04/2013 from [facility]. TECHNIQUE: 3-D yboc-rw-[id number] sequences were obtained through the [place] and displayed using rotating and tumbled MIP reconstructions. FINDINGS: The intracranial portions of the internal carotid arteries appear normal and patent. ??The right A1 segment is diminutive. ??There continues to be a 3.5 mm sessile appearing aneurysm arising from the anterior communicating artery. ??The anterior cerebral arteries appear otherwise normal. ??The middle cerebral arteries are normal. ??The basilar and posterior cerebral arteries are normal. ??Minimal flow is seen in the left posterior communicating artery. IMPRESSION: ?? 1. 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 2. ??OTHERWISE NORMAL MRA OF THE [place]. Electronically signed by: Bart Patel M.D. ? Interpreting Physician: ??DR MIKEY MOSS M.D. ??Read on: ??Oct 02 2016 ?? 9:56A Transcribed by: ??PSC ??On: Oct 02 2016 ??9:54A Approved Electronically by: ??ISA Sheikh, DR JENSEN ??on: ??Oct 02 2016 ?? 9:54A Ordering DR: HARPAL MONTOYA Attending DR: HARPAL MONTOYA Attending: ??HARPAL MONTOYA Requesting: ??HARPAL MONTOYA Requesting Fax: ??-- Attending Fax: ??-- Attending ID: ??[id number] Requesting ID: ??[id number] Report To 1 ID: ??[id number] Report To 1 Name: ??HARPAL MONTOYA Report To 1 FAX: ??-- NextGen Order #: ?? Procedure Note Miscellaneous, Not In File / Provider, MD Ronda - 10/08/2016 MRA Brain WO Acc#: [id number] DATE OF EXAM: Oct 01 2016 MRA Brain WO HISTORY: CEREBRAL ANEURYSM. Follow-up cerebral aneurysm. CORRELATE IMAGIN10/04/2013 from [facility]. TECHNIQUE: 3-D kica-qd-[id number] sequences were obtained through the [place] and displayed using rotating and tumbled MIP reconstructions. FINDINGS: The intracranial portions of the internal carotid arteries appear normal and patent. The right A1 segment is diminutive. There continues to be a 3.5 mm sessile appearing aneurysm arising from the anterior communicating artery. The anterior cerebral arteries appear otherwise normal. The middle cerebral arteries are normal. The basilar and posterior cerebral arteries are normal. Minimal flow is seen in the left posterior communicating artery. IMPRESSION: 1. 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 2. OTHERWISE NORMAL MRA OF THE [place]. Electronically signed by: Bart Patel M.D. Interpreting Physician: DR MIKEY MOSS M.D. Read on: Oct 02 2016 9:56A Transcribed by: [facility] On: Oct 02 2016 9:54A Approved Electronically by: ISA Sheikh, DR JENSEN on: Oct 02 2016 9:54A Ordering DR: HARPAL MONTOYA Attending DR: HARPAL MONTOYA Attending: HARPAL MONTOYA Requesting: HARPAL MONTOYA Requesting Fax: -- Attending Fax: -- Attending ID: [id number] Requesting ID: [id number] Report To 1 ID: [id number] Report To 1 Name: HARPAL MONTOYA Report To 1 FAX: -- NextGen Order #: us Not In File Miscellaneous IMG MRI PROCEDURES Fin al Result documented in this encounter Visit Diagnoses Not on filedocumented in this encounter Care Teams Insurance Claims Representative Relationship Specialty Start Date End Date Mark Cerna DO PCP - General 09/04/16 01/17/19 documented as of this encounter
--- OUTSIDE RECORDS SUMMARY | 2024-04-24 05:58 | XMS_ITS | Encounter Summary ---
Author Organization [facility] Facility Care Team Providers Care Level Vial Curvature Gauger Name Role Phone Unavailable Primary Care Provider Unavailabl e Encounter Details Date Type Department Care Team (Late st Contact Info) Description 11/16/2014 - 11/16/2014 4:00 PM CDT Hospital Encounter [facility] Brandy Aguirre, [facility] [address] [address] Social History Tobacco Use Types Packs/Day Years Used Date Smoking Tobacco: Never Assessed Comments Unknown Sex and Gender Information Value Date Recorded Sex Assigned at Not on file 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
--- OUTSIDE RECORDS SUMMARY | 2024-04-24 05:58 | XMS_ITS | Encounter Summary ---
Author Organization [facility] Facility Care Team Providers Care Cotton Sampler Name Role Phone Unavailable Primary Care Provider Unavailabl e Encounter Details Date Type Department Care Team (Late st Contact Info) Description 01/31/2016 8:45 AM CDT - 01/31/2016 11:59 PM CDT Hospital Encounter [facility] Patricia Coronado MD [address] [facility] [address] [place] [address] Other snf (current) drug therapy Social History Tobacco Use Types Packs/Day Years Used Date Smoking Tobacco: Never Assessed Comments Unknown Sex and Gender Information Value Date Recorded Sex Assigned at Not on file 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 Gender Identity Not on file Sexual Orientation [...] Comments BLOOD ERYTHROCYTE SEDIMENTATION RATE (ESR) Routine 01/31/2016 8:41 AM CDT DISCHARGE LABORATORY CUMULATIVE REPORT 01/31/2016 documented in this encounter Results * Blood erythrocyte sedimentation rate (ESR) (01/31/2016 8:41 AM CDT) Erythrocyte sedimentation rate 6.0 0.0 - 35.0 mm/hr CDR HISTORICAL RESULTS Blood specimen (specimen) 01/31/2016 8:41 AM CDT us Patricia Martinez MD LAB BLOOD ORDERABLES Final R esult CDR HISTORICAL RESULTS * DISCHARGE LABORATORY CUMULATIVE REPORT (01/31/2016) Narrative 01/31/2016 Ordered by an unspecified provider. us Historical Provider LAB BLOOD ORDERABLES Mary l Result documented in this encounter Visit Diagnoses Diagnosis Other long term care pharmacist (current) drug therapy documented in this encounter
--- OUTSIDE RECORDS SUMMARY | 2024-04-24 05:58 | XMS_ITS | Encounter Summary ---
Author Organization [facility] Healthcare Address [address] [place] [address] Care Team Providers Care Packing Attendant Name Role Phone Mark Cerna DO Primary Care Provider [phone]- [phone] Encounter Details Date Type Department Care Team (Latest Contact Info) Description 06/22/2017 3:17 PM CDT - 06/25/2017 11:59 PM CDT Hospital Encounter [facility] [phone] Harpal Calix MD [address] [address] Discharge Disposition: Discharge to home or self care Social History Tobacco Use Types Packs/Day Years Used Date Smoking Tobacco: Never Assessed Comments Unknown Sex and Gender Information Value Date Recorded Sex Assigned at Not on file 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 Gender Identity Not on file Sexual [...] Diagnosis Comments CBC WITH AUTO DIFFERENTIAL Routine Gen Lab 06/25/2017 8:30 AM CDT CANCER ANTIGEN 15-3 Routine Gen Lab 06/25/2017 8 :00 AM CDT COMPREHENSIVE METABOLIC PANEL Routine Gen Lab 06/25/2017 8:00 AM CDT DISCHARGE LABORATORY CUMULATIVE REPORT 06/22/2017 12:00 AM CDT documented in this encounter Results * (ABNORMAL) CBC with auto differential (06/25/2017 8:30 AM CDT) [facility] WBC 3.9 3.8 - 9.8 K/cumm [facility] RBC 3.86(L) 3.90 - 5.00 M/cumm [facility] Hgb 12.8 12.1 - 15.1 g/dL [facility] Hct 38.6 36.1 - 44.3 % [facility] Mean Cellular Volume - CAM 100.2(H) 80.0 - 97.6 fL [facility] Mean Cellular Hemoglobin - CAM 33.3 26.7 - 33.7 pg [facility] Mean Cellular Hemoglobin Concentration - CAM 33.2 32.7 - 35.5 g/dL [facility] Rdw 14.0 11.8 - 14.6 % [facility] Plt 216 140 - 440 K/cumm [facility] Mean Platelet Volume - CAM 8.1 6.8 - 10.4 fL [facility] Neutrophil pct 53.7 38.7 - 74.5 % [facility] Lymphocyte pct 30.0 20.0 - 54.3 % [facility] Monos 13.8(H) 4.3 - 13.5 % [facility] Eosinophil pct 1.7 0.0 - 6.0 % [facility] Basophil pct 0.8 0.0 - 3.0 % [facility] Neutrophil abs 2.1 1.8 - 6.6 K/cumm [facility] Lymphocyte abs 1.2 1.2 - 3.3 K/cumm [facility] Monocyte abs 0.5 0.2 - 1.2 K/cumm [facility] Eosinophils, abs 0.1 0.0 - 0.5 K/cumm [facility] Basophil abs 0.0 0.0 - 0.2 K/cumm [facility] NRBC 0.0 0.0 - 0.2 % [facility] NRBC abs 0.00 0.00 - 0.01 K/cumm [facility] Blood specimen (specimen) 06/25/2017 8:30 AM CDT 06/25/2017 8:31 AM CDT Narrative [facility] - 06/25/2017 8:36 AM CDT Harpal Calix MD LAB BLOOD ORDERABLES Mary l Result Performing Organization Address City/[facility] Co de Phone Number [facility] [address] [place] [employer] [place] [address] * Cancer antigen 15-3 (06/25/2017 8:00 AM CDT) Pathologist [facility] [place] 15-3 ag 6.0 1.0 - 30.0 units/mL [facility] Blood specimen (specimen) 06/25/2017 8:00 AM CDT 06/25/2017 8:38 AM CDT Narrative [facility] - 06/25/2017 9:36 AM CDT Harpal Calix MD LAB BLOOD ORDERABLES Mary l Result Performing Organization Address City/[facility] Co de Phone Number [facility] [employer] [place] [employer] [place] [address] * Comprehensive metabolic panel (06/25/2017 8:00 AM CDT) Sodium 141 135 - 145 mmol/L [facility] Potassium, pl 4.2 3.3 - 4.9 mmol/L [facility] CO2 32 22 - 32 mmol/L [facility] BUN 14 8 - 25 mg/dL [facility] Glucose 85 70 - 199 mg/dL [facility] Comment: Interpretive Data Fasting glucose >/= [...] Current interpretive data was last revised 2017. Creatinine 0.82 0.60 - 1.10 mg/dL [facility] Calcium 9.1 8.5 - 10.3 mg/dL [facility] Chloride 107 97 - 110 mmol/L [facility] Albumin 4.6 3.5 - 5.0 g/dL [facility] AST 25 10 - 45 Units/L [facility] ALT 25 7 - 45 Units/L [facility] Alk phos 40 40 - 130 Units/L [facility] Bilirubin, total 0.3 0.1 - 1.2 mg/dL [facility] Protein, pl 6.7 6.5 - 8.5 g/dL [facility] Anion gap 2 2 - 15 mmol/L [facility] Blood specimen (specimen) 06/25/2017 8:00 AM CDT 06/25/2017 8:38 AM CDT Narrative [facility] - 06/25/2017 9:15 AM CDT Harpal Calix MD LAB BLOOD ORDERABLES Mary l Result [facility] [place] [address] * DISCHARGE LABORATORY CUMULATIVE REPORT (06/22/2017 12:00 AM CDT) Narrative 06/22/2017 12:00 AM CDT Ordered by an unspecified provider. Historical Provider LAB BLOOD ORDERABLES Mary l Result documented in this encounter Visit Diagnoses Not on filedocumented in this encounter Care Teams Packing Attendant Relationship Specialty Start Date End Date Mark Cerna DO PCP - General 09/04/16 01/17/19 documented as of this encounter
--- OUTSIDE RECORDS SUMMARY | 2024-04-24 05:58 | XMS_ITS | Encounter Summary ---
Author Organization [facility] Healthcare Address [address] [place] [address] Care Team Providers Care Horse Breeder Name Role Phone Mark Cerna DO Primary Care Provider [phone] Encounter Details Date Type Department Care Team (Latest Contact Info) Description 12/03/2016 2:14 PM CDT - 12/03/2016 11:59 PM CDT Hospital Encounter [facility] OP [facility]IM [phone] Yue Aguirre, [facility] [address] [address] Discharge Disposition: Discharge to home or self care Social History Tobacco Use Types Packs/Day Years Used Date Smoking Tobacco: Never Assessed Comments Unknown Sex and Gender Information Value Date Recorded Sex Assigned at Not on file 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 RENEE MOSER M.D. FINAL REPORT The radiology attending physician has personally reviewed this study, and has reviewed and/or edited this written report and agrees with it. ACC# ??Date Time ??Exam [id number] Dec 03, 2016 14:59:00 [facility] 99148 Dig Breast Marcelo Ananth ?? Technologist(s): Vibha Ospina; ; [id number] Dec 03, 2016 14:59:00 [facility] 08014 Diag Mamm, inc CAD, bilat ?? Technologist(s): Vibha Ospina; ; [id number] Dec 03, 2016 16:13:00 [facility] 51326 Breast US unilateral, ltd R ACC# ??Date Time ??Exam [id number] Dec 03, 2016 14:59:00 C 25595 Dig Breast Marcelo Ananth ?? Technologist(s): Vibha Ospina; ; [id number] Dec 03, 2016 14:59:00 [facility] 27258 Diag Mamm, inc CAD, bilat ?? Technologist(s): Vibha Ospina; ; [id number] Dec 03, 2016 16:13:00 [facility] 07004 Breast US unilateral, ltd R EXAMINATION: ?? BILATERAL FULL FIELD DIGITAL DIAGNOSTIC MAMMOGRAM WITH CAD AND BILATERAL DIGITAL BREAST TOMOSYNTHESIS AND RIGHT BREAST SONOGRAM HISTORY: Personal history of right breast cancer with prior breast conservation therapy. Patient's wood filler noted skin thickening in the right breast. TECHNIQUE: Full field digital craniocaudal and mediolateral oblique views of both breasts were obtained. Computer Aided Detection was performed. ?? Bilateral digital breast tomosynthesis was performed. COMPARISON: Multiple examinations dating back to 2014 BREAST PARENCHYMAL COMPOSITION: The breasts are heterogeneously dense, which may obscure small masses. FINDINGS: MAMMOGRAM: Findings compatible with prior right breast conservation therapy are noted. No new suspicious abnormality is identified within either breast. SONOGRAM: Directed sonogram of the right outer middle and upper breast was performed by Dr. Gibson. ??No focal abnormal solid or cystic lesion is identified in the area of palpable concern. ?? IMPRESSION: OVERALL FINAL ASSESSMENT: ??BI-RADS Category 2: Benign finding. RECOMMENDATION: ??Bilateral diagnostic mammogram is recommended in one year. Any decision to biopsy should be based on clinical assessment. ?? Requested By: Yue Aguirre ??DEBEADER ? Dictated By: ?? RENEE MOSER M.D. ??on Dec 03 2016 ??4:19P This document has been electronically signed by: ANDREAS GIBSON M.D. on Dec 03 2016 ??4:19P [id number] OLGUIN M.D. FINAL REPORT The radiology attending physician has personally reviewed this study, and has reviewed and/or edited this written report and agrees with it. Attending: ??CARLA, ??YUE Requesting: ??Carla, ??Yue Requesting Fax: ?? Attending Fax: ?? Attending ID: ??[id number] Requesting ID: ??[id number] Report To 1 ID: ??[id number] ? Report To 1 Name: ??, ?? Report To 1 FAX: ?? NextGen Order #: ?? Procedure Note Miscellaneous, Not In File - 02/08/2017 ANDREAS GIBSON M.D. RENEE MOSER M.D. FINAL REPORT The radiology attending physician has personally reviewed this study, and has reviewed and/or edited this written report and agrees with it. ACC# Date Time Exam [id number] Dec 03, 2016 14:59:00 [facility] [address] [facility] Breast Marcelo Ananth Technologist(s): Vibha Ospina; ; [id number] Dec 03, 2016 14:59:00 [facility] 14090 Diag Mamm, inc CAD, bilat Technologist(s): Vibha Ospina; ; [id number] Dec 03, 2016 16:13:00 [facility] 55405 Breast US unilateral, ltd R ACC# Date Time Exam [id number] Dec 03, 2016 14:59:00 [facility] 88671 Dig Breast Marcelo Ananth Technologist(s): Vibha Ospina; ; [id number] Dec 03, 2016 14:59:00 [facility] 84050 Diag Mamm, inc CAD, bilat Technologist(s): Vibha Ospina; ; [id number] Dec 03, 2016 16:13:00 [facility] 91684 Breast US unilateral, ltd R EXAMINATION: BILATERAL FULL FIELD DIGITAL DIAGNOSTIC MAMMOGRAM WITH CAD AND BILATERAL DIGITAL BREAST TOMOSYNTHESIS AND RIGHT BREAST SONOGRAM HISTORY: Personal history of right breast cancer with prior breast conservation therapy. Patient's wood filler noted skin thickening in the right breast. TECHNIQUE: Full field digital craniocaudal and mediolateral oblique views of both breasts were obtained. Computer Aided Detection was performed. Bilateral digital breast tomosynthesis was performed. COMPARISON: Multiple examinations dating back to 2014 BREAST PARENCHYMAL COMPOSITION: The breasts are heterogeneously dense, which may obscure small masses. FINDINGS: MAMMOGRAM: Findings compatible with prior right breast conservation therapy are noted. No new suspicious abnormality is identified within either breast. SONOGRAM: Directed sonogram of the right outer middle and upper breast was performed by Dr. Gibson. No focal abnormal solid or cystic lesion is identified in the area of palpable concern. IMPRESSION: OVERALL FINAL ASSESSMENT: BI-RADS Category 2: Benign finding. RECOMMENDATION: Bilateral diagnostic mammogram is recommended in one year. Any decision to biopsy should be based on clinical assessment. Requested By: Yue Aguirre [facility] Dictated By: RENEE MOSER M.D. on Dec 03 2016 4:19P This document has been electronically signed by: ANDREAS GIBSON M.D. on Dec 03 2016 4:19P [id number] OLGUIN M.D. FINAL REPORT The radiology attending physician has personally reviewed this study, and has reviewed and/or edited this written report and agrees with it. Attending: YUE AGUIRRE Requesting: Yue Aguirre Requesting Fax: Attending Fax: Attending ID: [id number] Requesting ID: [id number] Report To 1 ID: [id number] Report To 1 Name: , Report To 1 FAX: NextGen Order #: us Yue Aguirre DEBEADER IMG US PROCEDURES Edited Res ult - Final * MAMMOGRAPHY, TOMOGRAPHY, BILATERAL (12/03/2016 7:59 PM CDT) Anatomical Region Laterality Modality Bilateral Mammography 12/03/2016 7:59 PM CDT Narrative 12/03/2016 7:59 PM CDT ANDREAS GIBSON M.D. RENEE MOSER M.D. FINAL REPORT The radiology attending physician has personally reviewed this study, and has reviewed and/or edited this written report and agrees with it. ACC# ??Date Time ??Exam [id number] Dec 03, 2016 14:59:00 [facility] [address] Dig Breast Marcelo Ananth ?? Technologist(s): Vibha Ospina; ; [id number] Dec 03, 2016 14:59:00 [facility] 74829 Diag Mamm, inc CAD, bilat ?? Technologist(s): Vibha Ospina; ; [id number] Dec 03, 2016 16:13:00 [facility] 27468 Breast US unilateral, ltd R ACC# ??Date Time ??Exam [id number] Dec 03, 2016 14:59:00 [facility] 92537 Dig Breast Marcelo Ananth ?? Technologist(s): Vibha Ospina; ; [id number] Dec 03, 2016 14:59:00 [facility] 57714 Diag Mamm, inc CAD, bilat ?? Technologist(s): Vibha Ospina; ; [id number] Dec 03, 2016 16:13:00 C 17371 Breast US unilateral, ltd R EXAMINATION: ?? BILATERAL FULL FIELD DIGITAL DIAGNOSTIC MAMMOGRAM WITH CAD AND BILATERAL DIGITAL BREAST TOMOSYNTHESIS AND RIGHT BREAST SONOGRAM HISTORY: Personal history of right breast cancer with prior breast conservation therapy. Patient's wood filler noted skin thickening in the right breast. TECHNIQUE: Full field digital craniocaudal and mediolateral oblique views of both breasts were obtained. Computer Aided Detection was performed. ?? Bilateral digital breast tomosynthesis was performed. COMPARISON: Multiple examinations dating back to 2014 BREAST PARENCHYMAL COMPOSITION: The breasts are heterogeneously dense, which may obscure small masses. FINDINGS: MAMMOGRAM: Findings compatible with prior right breast conservation therapy are noted. No new suspicious abnormality is identified within either breast. SONOGRAM: Directed sonogram of the right outer middle and upper breast was performed by Dr. Gibson. ??No focal abnormal solid or cystic lesion is identified in the area of palpable concern. ?? IMPRESSION: OVERALL FINAL ASSESSMENT: ??BI-RADS Category 2: Benign finding. RECOMMENDATION: ??Bilateral diagnostic mammogram is recommended in one year. Any decision to biopsy should be based on clinical assessment. ?? Requested By: Yue Aguirre ??DEBEADER ? Dictated By: ?? RENEE MOSER M.D. ??on Dec 03 2016 ??4:19P This document has been electronically signed by: ANDREAS GIBSON M.D. on Dec 03 2016 ??4:19P [id number] OLGUIN M.D. FINAL REPORT The radiology attending physician has personally reviewed this study, and has reviewed and/or edited this written report and agrees with it. Attending: ??CARLA, ??YUE Requesting: ??Carla, ??Yue Requesting Fax: ?? Attending Fax: ?? Attending ID: ??[id number] Requesting ID: ??[id number] Report To 1 ID: ??[id number] ? Report To 1 Name: ??, ?? Report To 1 FAX: ?? NextGen Order #: ?? Procedure Note Miscellaneous, Not In File - 02/08/2017 ANDREAS GIBSON M.D. RENEE MOSER M.D. FINAL REPORT The radiology attending physician has personally reviewed this study, and has reviewed and/or edited this written report and agrees with it. ACC# Date Time Exam [id number] Dec 03, 2016 14:59:00 [facility] 11464 Dig Breast Marcelo Ananth Technologist(s): Vibha Ospina; ; [id number] Dec 03, 2016 14:59:00 [facility] 36646 Diag Mamm, inc CAD, bilat Technologist(s): Vibha Ospina; ; [id number] Dec 03, 2016 16:13:00 [facility] 06101 Breast US unilateral, ltd R ACC# Date Time Exam [id number] Dec 03, 2016 14:59:00 [facility] 11010 Dig Breast Marcelo Ananth Technologist(s): Vibha Ospina; ; [id number] Dec 03, 2016 14:59:00 [facility] 58965 Diag Mamm, inc CAD, bilat Technologist(s): Vibha Ospina; ; [id number] Dec 03, 2016 16:13:00 [facility] 02928 Breast US unilateral, ltd R EXAMINATION: BILATERAL FULL FIELD DIGITAL DIAGNOSTIC MAMMOGRAM WITH CAD AND BILATERAL DIGITAL BREAST TOMOSYNTHESIS AND RIGHT BREAST SONOGRAM HISTORY: Personal history of right breast cancer with prior breast conservation therapy. Patient's wood filler noted skin thickening in the right breast. TECHNIQUE: Full field digital craniocaudal and mediolateral oblique views of both breasts were obtained. Computer Aided Detection was performed. Bilateral digital breast tomosynthesis was performed. COMPARISON: Multiple examinations dating back to 2014 BREAST PARENCHYMAL COMPOSITION: The breasts are heterogeneously dense, which may obscure small masses. FINDINGS: MAMMOGRAM: Findings compatible with prior right breast conservation therapy are noted. No new suspicious abnormality is identified within either breast. SONOGRAM: Directed sonogram of the right outer middle and upper breast was performed by Dr. Gibson. No focal abnormal solid or cystic lesion is identified in the area of palpable concern. IMPRESSION: OVERALL FINAL ASSESSMENT: BI-RADS Category 2: Benign finding. RECOMMENDATION: Bilateral diagnostic mammogram is recommended in one year. Any decision to biopsy should be based on clinical assessment. Requested By: Yue Aguirre [facility] Dictated By: RENEE MOSER M.D. on Dec 03 2016 4:19P This document has been electronically signed by: ANDREAS GIBSON M.D. on Dec 03 2016 4:19P [id number] OLGUIN M.D. FINAL REPORT The radiology attending physician has personally reviewed this study, and has reviewed and/or edited this written report and agrees with it. Attending: YUE AGUIRRE Requesting: Yue Aguirre Requesting Fax: Attending Fax: Attending ID: [id number] Requesting ID: [id number] Report To 1 ID: [id number] Report To 1 Name: , Report To 1 FAX: NextGen Order #: us Yue Aguirre DEBEADER IMG MAMMO PROCEDURES Edited Result - Final * Diagnostic Mammogram 2D Bilateral (12/03/2016 7:59 PM CDT) Anatomical Region Laterality Modality Breast Bilateral Mammography 12/03/2016 7:59 PM CDT Narrative 12/03/2016 7:59 PM CDT ANDREAS GIBSON M.D. RENEE MOSER M.D. FINAL REPORT The radiology attending physician has personally reviewed this study, and has reviewed and/or edited this written report and agrees with it. ACC# ??Date Time ??Exam [id number] Dec 03, 2016 14:59:00 [facility] 89209 Dig Breast Marcelo Ananth ?? Technologist(s): Vibha Ospina; ; [id number] Dec 03, 2016 14:59:00 [facility] 73626 Diag Mamm, inc CAD, bilat ?? Technologist(s): Vibha Ospina; ; [id number] Dec 03, 2016 16:13:00 [facility] 14567 Breast US unilateral, ltd R ACC# ??Date Time ??Exam [id number] Dec 03, 2016 14:59:00 C 77692 Dig Breast Marcelo Ananth ?? Technologist(s): Vibha Ospina; ; [id number] Dec 03, 2016 14:59:00 [facility] 10493 Diag Mamm, inc CAD, bilat ?? Technologist(s): Vibha Ospina; ; [id number] Dec 03, 2016 16:13:00 C 23383 Breast US unilateral, ltd R EXAMINATION: ?? BILATERAL FULL FIELD DIGITAL DIAGNOSTIC MAMMOGRAM WITH CAD AND BILATERAL DIGITAL BREAST TOMOSYNTHESIS AND RIGHT BREAST SONOGRAM HISTORY: Personal history of right breast cancer with prior breast conservation therapy. Patient's wood filler noted skin thickening in the right breast. TECHNIQUE: Full field digital craniocaudal and mediolateral oblique views of both breasts were obtained. Computer Aided Detection was performed. ?? Bilateral digital breast tomosynthesis was performed. COMPARISON: Multiple examinations dating back to 2014 BREAST PARENCHYMAL COMPOSITION: The breasts are heterogeneously dense, which may obscure small masses. FINDINGS: MAMMOGRAM: Findings compatible with prior right breast conservation therapy are noted. No new suspicious abnormality is identified within either breast. SONOGRAM: Directed sonogram of the right outer middle and upper breast was performed by Dr. Gibson. ??No focal abnormal solid or cystic lesion is identified in the area of palpable concern. ?? IMPRESSION: OVERALL FINAL ASSESSMENT: ??BI-RADS Category 2: Benign finding. RECOMMENDATION: ??Bilateral diagnostic mammogram is recommended in one year. Any decision to biopsy should be based on clinical assessment. ?? Requested By: Yue Aguirre ??DEBEADER ? Dictated By: ?? RENEE MOSER M.D. ??on Dec 03 2016 ??4:19P This document has been electronically signed by: ANDREAS GIBSON M.D. on Dec 03 2016 ??4:19P ANDREAS GIBSON M.D. RENEE MOSER M.D. FINAL REPORT The radiology attending physician has personally reviewed this study, and has reviewed and/or edited this written report and agrees with it. Attending: ??CARLA, ??YUE Requesting: ??Carla, ??Yue Requesting Fax: ?? Attending Fax: ?? Attending ID: ??[id number] Requesting ID: ??[id number] Report To 1 ID: ??[id number] ? Report To 1 Name: ??, ?? Report To 1 FAX: ?? NextGen Order #: ?? Procedure Note Miscellaneous, Not In File - 02/08/2017 ANDREAS GIBSON M.D. RENEE MOSER M.D. FINAL REPORT The radiology attending physician has personally reviewed this study, and has reviewed and/or edited this written report and agrees with it. ACC# Date Time Exam [id number] Dec 03, 2016 14:59:00 C 17021 Dig Breast Marcelo Ananth Technologist(s): Vibha Ospina; ; [id number] Dec 03, 2016 14:59:00 C 90792 Diag Mamm, inc CAD, bilat Technologist(s): Vibha Ospina; ; [id number] Dec 03, 2016 16:13:00 [facility] 73943 Breast US unilateral, ltd R ACC# Date Time Exam [id number] Dec 03, 2016 14:59:00 C 27785 Dig Breast Marcelo Ananth Technologist(s): Vibha Ospina; ; [id number] Dec 03, 2016 14:59:00 C 46086 Diag Mamm, inc CAD, bilat Technologist(s): Vibha Ospina; ; [id number] Dec 03, 2016 16:13:00 C 71857 Breast US unilateral, ltd R EXAMINATION: BILATERAL FULL FIELD DIGITAL DIAGNOSTIC MAMMOGRAM WITH CAD AND BILATERAL DIGITAL BREAST TOMOSYNTHESIS AND RIGHT BREAST SONOGRAM HISTORY: Personal history of right breast cancer with prior breast conservation therapy. Patient's wood filler noted skin thickening in the right breast. TECHNIQUE: Full field digital craniocaudal and mediolateral oblique views of both breasts were obtained. Computer Aided Detection was performed. Bilateral digital breast tomosynthesis was performed. COMPARISON: Multiple examinations dating back to 2014 BREAST PARENCHYMAL COMPOSITION: The breasts are heterogeneously dense, which may obscure small masses. FINDINGS: MAMMOGRAM: Findings compatible with prior right breast conservation therapy are noted. No new suspicious abnormality is identified within either breast. SONOGRAM: Directed sonogram of the right outer middle and upper breast was performed by Dr. Gibson. No focal abnormal solid or cystic lesion is identified in the area of palpable concern. IMPRESSION: OVERALL FINAL ASSESSMENT: BI-RADS Category 2: Benign finding. RECOMMENDATION: Bilateral diagnostic mammogram is recommended in one year. Any decision to biopsy should be based on clinical assessment. Requested By: Yue Aguirre [facility] Dictated By: RENEE MOSER M.D. on Dec 03 2016 4:19P This document has been electronically signed by: ANDREAS GIBSON M.D. on Dec 03 2016 4:19P Kori OLGUIN M.D. FINAL REPORT The radiology attending physician has personally reviewed this study, and has reviewed and/or edited this written report and agrees with it. Attending: YUE AGUIRRE Requesting: Yue Aguirre Requesting Fax: Attending Fax: Attending ID: [id number] Requesting ID: [id number] Report To 1 ID: [id number] Report To 1 Name: , Report To 1 FAX: NextGen Order #: Yue Aguirre DEBEADER IMG MAMMO PROCEDURES Edited Result - Final documented in this encounter Visit Diagnoses Not on filedocumented in this encounter Care Teams Horse Breeder Relationship Specialty Start Date End Date Mark Cerna DO PCP - General 09/04/16 01/17/19 documented as of this encounter
--- OUTSIDE RECORDS SUMMARY | 2024-04-24 05:58 | XMS_ITS | Encounter Summary ---
Author Organization [facility] Facility Care Team Providers Care Laborer Orchard Name Role Phone Unavailable Primary Care Provider Unavailabl e Encounter Details Date Type Department Care Team (Latest Contact Info) Description 04/10/2015 - 04/10/2015 11:59 PM RAW PRODUCTS DIRECTOR Hospital Encounter [facility] Harpal Soto MD [facility] [address] [address] Malignant neoplasm of central portion of right female breast (CMS/HCC); Personal history of antineoplastic chemotherapy Social History Tobacco Use Types Packs/Day Years Used Date Smoking Tobacco: Never Assessed Comments Unknown Sex and Gender Information Value Date Recorded Sex Assigned at Not on file Legal Sex Female 3:42 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 SHERLEY ROGERS M.D. FINAL REPORT The radiology attending physician has personally reviewed this study, and has reviewed and/or edited this written report and agrees with it. ACC# ??Date Time ??Exam [id number] Apr 10, 2015 10:00:00 58091 Remove Port L ACC# ??Date Time ??Exam [id number] Apr 10, 2015 10:00:00 05294 Remove Port L EXAMINATION: ?PORT REMOVAL HISTORY: 54-year-old female breast cancer status post completion of chemotherapy ATTENDING PRESENCE: Dr. Moreno, the attending radiologist, was present from the beginning to the end of the procedure. SEDATION: The patient did not require conscious sedation. TECHNIQUE: The risks, benefits and alternatives were discussed and informed consent was obtained. ??Prior to beginning the procedure, Lamont Protocol was used to confirm the patient's identity and planned procedure. ??If fluoroscopy was used, fluoroscopy time has been recorded in the electronic medical record. Maximum sterile barriers including cap, mask, hand hygiene, sterile gloves, sterile gown, large sterile drape and 2% chlorhexidine for cutaneous antisepsis were used. ??The skin adjacent to the left chest wall port was sterilely prepped, draped and infiltrated with 1% lidocaine. After making a short transverse incision, the port reservoir was freed using a combination of sharp and blunt dissection. ??The catheter was then removed. ??The deep tissues were approximated using 4-0 Monocryl and the incision closed using Dermabond. ESTIMATED BLOOD LOSS: less than 30 milliliters DISCHARGED TO: Recovery and then to home CONDITION: Stable FINDINGS: The port site showed no purulence or other evidence of infection. ?? IMPRESSION: Successful port removal without complication ?? Requested By: Dictated By: ?? SHERLEY ROGERS M.D. ??on Apr 10 2015 11:30A This document has been electronically signed by: LYNNE MORENO M.D. on Apr 10 2015 12:14P Procedure Note Provider, MD Ronda - 08/04/2016 LYNNE MORENO M.D. SHERLEY ROGERS M.D. FINAL REPORT The radiology attending physician has personally reviewed this study, and has reviewed and/or edited this written report and agrees with it. ACC# Date Time Exam [id number] Apr 10, 2015 10:00:00 [id number] Remove Port L ACC# Date Time Exam [id number] Apr 10, 2015 10:00:00 10079 Remove Port L EXAMINATION: PORT REMOVAL HISTORY: 54-year-old female breast cancer status post completion of chemotherapy ATTENDING PRESENCE: Dr. Moreno, the attending radiologist, was present from the beginning to the end of the procedure. SEDATION: The patient did not require conscious sedation. TECHNIQUE: The risks, benefits and alternatives were discussed and informed consent was obtained. Prior to beginning the procedure, Lamont Protocol was used to confirm the patient's identity and planned procedure. If fluoroscopy was used, fluoroscopy time has been recorded in the electronic medical record. Maximum sterile barriers including cap, mask, hand hygiene, sterile gloves, sterile gown, large sterile drape and 2% chlorhexidine for cutaneous antisepsis were used. The skin adjacent to the left chest wall port was sterilely prepped, draped and infiltrated with 1% lidocaine. After making a short transverse incision, the port reservoir was freed using a combination of sharp and blunt dissection. The catheter was then removed. The deep tissues were approximated using 4-0 Monocryl and the incision closed using Dermabond. ESTIMATED BLOOD LOSS: less than 30 milliliters DISCHARGED TO: Recovery and then to home CONDITION: Stable FINDINGS: The port site showed no purulence or other evidence of infection. IMPRESSION: Successful port removal without complication Requested By: Dictated By: SHERLEY ROGERS M.D. on Apr 10 2015 11:30A This document has been electronically signed by: LYNNE MORENO M.D. on Apr 10 2015 12:14P us Historical Provider MD PERALES IR PROCEDURES Final R esult documented in this encounter Visit Diagnoses Diagnosis Malignant neoplasm of central portion of right female breast (HCC) Personal history of antineoplastic chemotherapy documented in this encounter
--- OUTSIDE RECORDS SUMMARY | 2024-04-24 05:58 | XMS_ITS | Encounter Summary ---
Author Organization [facility] Facility Care Team Providers Care Concert Singer Name Role Phone Unavailable Primary Care Provider Unavailabl e Encounter Details Date Type Department Care Team (Late st Contact Info) Description 11/27/2011 - 11/27/2011 11:59 PM CDT Hospital Encounter [facility] Harpal Bauer MD [address] [place] [address] DR DEPT NEUROSURGERY, [place] [address] Cerebral aneurysm, nonruptured; Other disorders of arteries and arterioles Social History Tobacco Use Types Packs/Day Years Used Date Smoking Tobacco: Never Assessed Comments Unknown Sex and Gender Information Value Date Recorded Sex Assigned at Not on file Legal Sex Female 3: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
--- OUTSIDE RECORDS SUMMARY | 2024-04-24 05:58 | XMS_ITS | Encounter Summary ---
Author Organization [facility] Facility Care Team Providers Care Horse Race Timer Name Role Phone Unavailable Primary Care Provider Unavailabl e Encounter Details Date Type Department Care Team (Late st Contact Info) Description 10/04/2013 - 10/04/2013 11:59 PM CDT Hospital Encounter 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 Gender Identity Not on file Sexual Orientation Not on file documented as of this encounter Plan of Treatment Not on file documented as of this encounter Procedures Procedure Name Priority Date/Time Associated Diagnosis Comments MRA MRV HEAD W WO CONTRAST Routine 10/05/2013 12:29 PM CDT MRI BRAIN W WO CONTRAST Routine 10/04/2013 12:06 PM CDT MRA MRV HEAD W WO CONTRAST Routine 10/04/2013 12:06 PM CDT BLOOD CREATININE, POINT OF CARE Routine 10/04/2013 11:15 AM CDT DISCHARGE LABORATORY CUMULATIVE REPORT Routine 10/04/2013 12:00 AM CDT documented in this encounter Results * MRA & MRV Head WW Contrast (10/05/2013 12:29 PM CDT) Anatomical Region Laterality Modality Head and Neck N/A Magnetic Resonan ce 10/05/2013 12:2 9 PM CDT us Historical Provider MD PERALES MRI PROCEDURES Final Result * MRA & MRV Head WW Contrast (10/04/2013 12:06 PM CDT) Anatomical Region Laterality Modality Head and Neck N/A Magnetic Resonan ce 10/04/2013 12:0 6 PM CDT Narrative 10/04/2013 2:53 PM CDT JESSICA PECK M.D. CARINE TOLEDO M.D. FINAL REPORT The radiology attending physician has personally reviewed this study, and has reviewed and/or edited this written report and agrees with it. ACC# ??Date Time ??Exam [id number] Oct 04, 2013 12:06:00 [id number] MR Angio Head wo&wi cont [id number] Oct 04, 2013 12:06:00 [id number] MRI Brain wo&with contrast EXAMINATION: ??EXAMINATIONS: Magnetic resonance imaging (MRI) of the brain and brainstem with and without contrast. Magnetic resonance angiography of the xjfydw-xq-Vmruje without and with contrast. HISTORY: ?? Aneurysm TECHNIQUE: Multiplanar, multisequences were performed as part of a general brain protocol with and without intravenous contrast. Magnetic resonance angiography of the yotrdv-rr-Nzrwsf was also performed using separate data set acquisitions to include a xldb-qv-pyqzhz technique without intravenous contrast and with contrast to produce axial thin-slice source images. ??These images were then reconstructed to provide maximum intensity projection (MIP) images. ?? Contrast information: Intravenous contrast used: Optimark 12ml COMPARISONS: ?Catheter angiogram 11/18/10 FINDINGS: ?? On the sagittal images, the scalp and calvarium are normal. The superior sagittal sinus demonstrates normal venous flow. The corpus callosum is normal in shape and signal intensity. The posterior fossa is unremarkable. The pituitary and sella are normal. The brainstem and craniocervical junction are unremarkable. The upper cervical spinal cord and spine are normal. Diffusion weighted images reveal no hyperintensities to suggest acute cerebral infarction. The susceptibility weighted sequences reveal no evidence of acute or chronic hemorrhage or lesions to suggest cavernomas. The ventricles are normal in size and position without evidence of hydrocephalus. The axial FLAIR images reveal scattered bihemispheric punctate hyperintensities in the deep white matter, a nonspecific finding. There are no areas of abnormal contrast enhancement. The visualized portions of the orbits, mastoids and paranasal sinuses are unremarkable. On the MR angiogram, normal signal ??voids are demonstrated within the carotid arteries and basilar artery. The internal carotid arteries are of normal caliber. There are no areas of atherosclerotic narrowing. The dhgdns-sb-Gmtqey is complete. Again noted is a round 3.5mm aneurysm projecting from the left A1/A-comm junction that projects superiorly. The anterior and middle cerebral arteries are normal. Small right A1 segment. Right vertebral artery dominant. The basilar artery is normal. The posterior cerebral arteries are normal. ?? Although MRA is a screening examination, catheter angiography remains the definitive study for small aneurysms, vasculitis, and other vascular abnormalities. IMPRESSION: ?? 1. Stable 3-4 mm A-comm aneurysm. 2. Scattered deep white matter T2 hyperintensities, a non-specific finding. Requested By: HARPAL MONTOYA M.D. Dictated By: ?? CARINE TOLEDO M.D. ??on Oct 04 2013 ??2:49P This document has been electronically signed by: JESSICA PECK M.D. on Oct 04 2013 ??2:53P Procedure Note Provider, MD Ronda - 08/04/2016 Kori SNOW M.D. FINAL REPORT The radiology attending physician has personally reviewed this study, and has reviewed and/or edited this written report and agrees with it. ACC# Date Time Exam [id number] Oct 04, 2013 12:06:00 [id number] MR Angio Head wo&wi cont [id number] Oct 04, 2013 12:06:00 [id number] MRI Brain wo&with contrast EXAMINATION: EXAMINATIONS: Magnetic resonance imaging (MRI) of the brain and brainstem with and without contrast. Magnetic resonance angiography of the aatspq-lx-Gnhqfo without and with contrast. HISTORY: Aneurysm TECHNIQUE: Multiplanar, multisequences were performed as part of a general brain protocol with and without intravenous contrast. Magnetic resonance angiography of the rexkyy-vk-Pdpjuu was also performed using separate data set acquisitions to include a oxlv-np-ektyoj technique without intravenous contrast and with contrast to produce axial thin-slice source images. These images were then reconstructed to provide maximum intensity projection (MIP) images. Contrast information: Intravenous contrast used: Optimark 12ml COMPARISONS: Catheter angiogram 11/18/10 FINDINGS: On the sagittal images, the scalp and calvarium are normal. The superior sagittal sinus demonstrates normal venous flow. The corpus callosum is normal in shape and signal intensity. The posterior fossa is unremarkable. The pituitary and sella are normal. The brainstem and craniocervical junction are unremarkable. The upper cervical spinal cord and spine are normal. Diffusion weighted images reveal no hyperintensities to suggest acute cerebral infarction. The susceptibility weighted sequences reveal no evidence of acute or chronic hemorrhage or lesions to suggest cavernomas. The ventricles are normal in size and position without evidence of hydrocephalus. The axial FLAIR images reveal scattered bihemispheric punctate hyperintensities in the deep white matter, a nonspecific finding. There are no areas of abnormal contrast enhancement. The visualized portions of the orbits, mastoids and paranasal sinuses are unremarkable. On the MR angiogram, normal signal voids are demonstrated within the carotid arteries and basilar artery. The internal carotid arteries are of normal caliber. There are no areas of atherosclerotic narrowing. The otvmjt-lh-Cqfurp is complete. Again noted is a round 3.5mm aneurysm projecting from the left A1/A-comm junction that projects superiorly. The anterior and middle cerebral arteries are normal. Small right A1 segment. Right vertebral artery dominant. The basilar artery is normal. The posterior cerebral arteries are normal. Although MRA is a screening examination, catheter angiography remains the definitive study for small aneurysms, vasculitis, and other vascular abnormalities. IMPRESSION: 1. Stable 3-4 mm A-comm aneurysm. 2. Scattered deep white matter T2 hyperintensities, a non-specific finding. Requested By: HARPAL MONTOYA M.D. Dictated By: CARINE TOLEDO M.D. on Oct 04 2013 2:49P This document has been electronically signed by: JESSICA PECK M.D. on Oct 04 2013 2:53P us Historical Provider MD PERALES MRI PROCEDURES Final Result * MRI Brain WWO Contrast (10/04/2013 12:06 PM CDT) Anatomical Region Laterality Modality Head and Neck N/A Magnetic Resonan ce 10/04/2013 12:0 6 PM CDT Narrative 10/04/2013 2:53 PM CDT JESSICA PECK M.D. CARINE TOLEDO M.D. FINAL REPORT The radiology attending physician has personally reviewed this study, and has reviewed and/or edited this written report and agrees with it. ACC# ??Date Time ??Exam [id number] Oct 04, 2013 12:06:00 [id number] MR Angio Head wo&wi cont [id number] Oct 04, 2013 12:06:00 [id number] MRI Brain wo&with contrast EXAMINATION: ??EXAMINATIONS: Magnetic resonance imaging (MRI) of the brain and brainstem with and without contrast. Magnetic resonance angiography of the mpypnj-gi-Poizui without and with contrast. HISTORY: ?? Aneurysm TECHNIQUE: Multiplanar, multisequences were performed as part of a general brain protocol with and without intravenous contrast. Magnetic resonance angiography of the soolab-tx-Mfzgpr was also performed using separate data set acquisitions to include a ngbe-nj-epnzls technique without intravenous contrast and with contrast to produce axial thin-slice source images. ??These images were then reconstructed to provide maximum intensity projection (MIP) images. ?? Contrast information: Intravenous contrast used: Optimark 12ml COMPARISONS: ?Catheter angiogram 11/18/10 FINDINGS: ?? On the sagittal images, the scalp and calvarium are normal. The superior sagittal sinus demonstrates normal venous flow. The corpus callosum is normal in shape and signal intensity. The posterior fossa is unremarkable. The pituitary and sella are normal. The brainstem and craniocervical junction are unremarkable. The upper cervical spinal cord and spine are normal. Diffusion weighted images reveal no hyperintensities to suggest acute cerebral infarction. The susceptibility weighted sequences reveal no evidence of acute or chronic hemorrhage or lesions to suggest cavernomas. The ventricles are normal in size and position without evidence of hydrocephalus. The axial FLAIR images reveal scattered bihemispheric punctate hyperintensities in the deep white matter, a nonspecific finding. There are no areas of abnormal contrast enhancement. The visualized portions of the orbits, mastoids and paranasal sinuses are unremarkable. On the MR angiogram, normal signal ??voids are demonstrated within the carotid arteries and basilar artery. The internal carotid arteries are of normal caliber. There are no areas of atherosclerotic narrowing. The yrosnm-zk-Gblkag is complete. Again noted is a round 3.5mm aneurysm projecting from the left A1/A-comm junction that projects superiorly. The anterior and middle cerebral arteries are normal. Small right A1 segment. Right vertebral artery dominant. The basilar artery is normal. The posterior cerebral arteries are normal. ?? Although MRA is a screening examination, catheter angiography remains the definitive study for small aneurysms, vasculitis, and other vascular abnormalities. IMPRESSION: ?? 1. Stable 3-4 mm A-comm aneurysm. 2. Scattered deep white matter T2 hyperintensities, a non-specific finding. Requested By: HARPAL MONTOYA M.D. Dictated By: ?? CARINE TOLEDO M.D. ??on Oct 04 2013 ??2:49P This document has been electronically signed by: JESSICA PECK M.D. on Oct 04 2013 ??2:53P Procedure Note Provider, MD Ronda - 08/04/2016 Kori SNOW M.D. FINAL REPORT The radiology attending physician has personally reviewed this study, and has reviewed and/or edited this written report and agrees with it. ACC# Date Time Exam [id number] Oct 04, 2013 12:06:00 [id number] MR Angio Head wo&wi cont [id number] Oct 04, 2013 12:06:00 [id number] MRI Brain wo&with contrast EXAMINATION: EXAMINATIONS: Magnetic resonance imaging (MRI) of the brain and brainstem with and without contrast. Magnetic resonance angiography of the vinwxg-tx-Fpvtqu without and with contrast. HISTORY: Aneurysm TECHNIQUE: Multiplanar, multisequences were performed as part of a general brain protocol with and without intravenous contrast. Magnetic resonance angiography of the vtwdsp-nl-Fbtfye was also performed using separate data set acquisitions to include a yfsi-xb-ilmqug technique without intravenous contrast and with contrast to produce axial thin-slice source images. These images were then reconstructed to provide maximum intensity projection (MIP) images. Contrast information: Intravenous contrast used: Optimark 12ml COMPARISONS: Catheter angiogram 11/18/10 FINDINGS: On the sagittal images, the scalp and calvarium are normal. The superior sagittal sinus demonstrates normal venous flow. The corpus callosum is normal in shape and signal intensity. The posterior fossa is unremarkable. The pituitary and sella are normal. The brainstem and craniocervical junction are unremarkable. The upper cervical spinal cord and spine are normal. Diffusion weighted images reveal no hyperintensities to suggest acute cerebral infarction. The susceptibility weighted sequences reveal no evidence of acute or chronic hemorrhage or lesions to suggest cavernomas. The ventricles are normal in size and position without evidence of hydrocephalus. The axial FLAIR images reveal scattered bihemispheric punctate hyperintensities in the deep white matter, a nonspecific finding. There are no areas of abnormal contrast enhancement. The visualized portions of the orbits, mastoids and paranasal sinuses are unremarkable. On the MR angiogram, normal signal voids are demonstrated within the carotid arteries and basilar artery. The internal carotid arteries are of normal caliber. There are no areas of atherosclerotic narrowing. The exqmnb-ed-Lwxfrp is complete. Again noted is a round 3.5mm aneurysm projecting from the left A1/A-comm junction that projects superiorly. The anterior and middle cerebral arteries are normal. Small right A1 segment. Right vertebral artery dominant. The basilar artery is normal. The posterior cerebral arteries are normal. Although MRA is a screening examination, catheter angiography remains the definitive study for small aneurysms, vasculitis, and other vascular abnormalities. IMPRESSION: 1. Stable 3-4 mm A-comm aneurysm. 2. Scattered deep white matter T2 hyperintensities, a non-specific finding. Requested By: HARPAL MONTOYA M.D. Dictated By: CARINE TOLEDO M.D. on Oct 04 2013 2:49P This document has been electronically signed by: JESSICA PECK M.D. on Oct 04 2013 2:53P Historical Provider IMG MRI PROCEDURES Final Result * Blood creatinine, point of care (10/04/2013 11:15 AM CDT) Creatinine, POC, bld 0.7 0.6 - 1.1 mg/dl HISTORICAL RESULTS Blood specimen (specimen) 10/04/2013 11:15 AM CDT Harpal Montoya MD LAB BLOOD ORDERABLES Mary l Result HISTORICAL RESULTS * Discharge Laboratory Cumulative Report (10/04/2013 12:00 AM CDT) 10/04/2013 Narrative HISTORICAL RESULTS - 10/04/2013 3:17 PM CDT ?[facility] ?Department of Laboratories ? [address] [facility] [place] ? [place] [address] Patient Name: ??LEIGHTONRAVEN STEINBERG Med Rec Number: [id number] Fin Number: ?[id number] Date: ?1960 Sex/Age: ? Female 53 years Admit Date: ?10/04/2013 Discharge Date: 10/04/2013 Doctor: ?Harpal Montoya Facility: ?[facility] Location: ?[facility] Chart Printed: 10/04/2013 15:17 ?? * Abnormal ?? C Critical ?? f Footnote ?? ^ Corrected ?? L Low ?? H High ? i Interp Data ?? @ Reference Lab ?Chart Type:Cumulative ?POINT OF CARE TESTS ? Chemistry ?Test: Creat iPOC ? Reference: [0.6-1.1] ? Units: mg/dL 10/04/2013 ?? 11:15:00 ?? 0.7 us Historical Provider LAB BLOOD ORDERABLES Mary valadez Result HISTORICAL RESULTS documented in this encounter Visit Diagnoses Diagnosis Cerebral aneurysm, nonruptured documented in this encounter
--- OUTSIDE RECORDS SUMMARY | 2024-04-24 05:58 | XMS_ITS | Encounter Summary ---
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 [id number] [id number] Malignant neoplasm of breast (female) (CMS/HCC) Social History Tobacco Use Types Packs/Day Years Used Date Smoking Tobacco: Never Assessed Comments Unknown Sex and Gender Information Value Date Recorded Sex Assigned at Not on file 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 Gender Identity Not on file Sexual Orientation Not on file documented as of this encounter Plan of Treatment Not on file documented as of this encounter Procedures Procedure Name Priority Date/Time Associated Diagnosis Comments US BREAST LIMITED Routine 10/26/2014 1:2 5 PM CDT DIGITAL MAMMOGRAPHY, UNILATERAL Routine 10/26/2014 1:01 PM CDT XR CONSULT OF OUTSIDE FILMS (PEDS ONLY) Routine 10/26/2014 9:45 AM CDT XR CONSULT OF OUTSIDE FILMS (PEDS ONLY) Routine 10/19/2014 10:55 AM CDT documented in this encounter Results * US Breast Limited (10/26/2014 1:25 PM CDT) Anatomical Region Laterality Modality Breast N/A Ultrasound 10/26/2014 1:25 PM CDT Narrative 10/26/2014 4:03 PM CDT FRANCESCA ALVES M.D. LYDIA BURTON M.D. FINAL REPORT The radiology attending physician has personally reviewed this study, and has reviewed and/or edited this written report and agrees with it. ACC# ??Date Time ??Exam [id number] Oct 26, 2014 13:01:00 [facility] [id number] Diag Mammogram Unilateral R ?? Technologist(s): Aruna Enriquez; ; [id number] Oct 26, 2014 13:25:00 [facility] [address] Breast US unilateral, ltd R EXAMINATION: ?? RIGHT FULL FIELD DIGITAL DIAGNOSTIC MAMMOGRAM AND RIGHT BREAST SONOGRAM HISTORY: Abnormal diagnostic mammogram from an outside institution ([facility]). 54-year-old female recently presented to [facility] with a palpable right breast lump in the superior portion of the right areola. MAMMOGRAM TECHNIQUE: Additional views of the right breast were obtained utilizing full field digital mammography. COMPARISON: 10/19/2014, 2014, 06/13/2013, 06/07/2013, 05/14/2012, and 05/02/2011. BREAST PARENCHYMAL COMPOSITION: The breasts are heterogeneously dense, which may obscure small masses. MAMMOGRAM FINDINGS: Additional views demonstrate confirmed a spiculated focal asymmetry with architectural distortion best seen on the craniocaudal view just superior to the right nipple at anterior depth. SONOGRAM FINDINGS: Directed sonogram of the upper outer quadrant and subareolar area of the breast was performed. There is a vascular solid irregular mass approximately 1 cm superior to the right nipple at anterior depth measuring approximately 1.6 cm in greatest dimension. This correlates with a palpable abnormality on physical exam and also with the spiculated focal asymmetry with architectural distortion seen on mammogram. Other scattered cystic lesions are seen throughout the upper outer quadrant of the right breast some of which contain debris and some of which are associated with slightly dilated ducts. None of these cystic lesions demonstrated vascular flow internally. IMPRESSION: ?? 1) Irregular solid mass with internal vascularity approximately 1 cm superior to the right nipple at anterior depth measuring approximately 1.6 cm in greatest dimension correlating with the patient's palpable abnormality and mammographic focal asymmetry and architectural distortion. Findings are suspicious for primary breast malignancy. 2) Ultrasound guided core needle biopsy is recommended. Given heterogeneous breast density, patient age, and associated calcifications in the upper outer quadrant of the right breast further evaluation of disease extent could be obtained with breast MRI implant indicated. The above findings and recommendations were discussed with the patient at the conclusion of the examination. These findings were communicated to ADRIANA Kelly ACNS-BC. ??The patient has been scheduled to return to the [facility] for an ultrasound-guided core needle biopsy of the right breast on 10/27/2014 at 10:15 a.m. OVERALL FINAL ASSESSMENT: BI-RADS Category 5: Highly suggestive of malignancy. Requested By: Dictated By: ?? LYDIA BURTON M.D. ??on Oct 26 2014 ??3:54P This document has been electronically signed by: FRANCESCA ALVES M.D. on Oct 26 2014 ??4:03P [id number] Procedure Note Provider, MD Ronda - 08/04/2016 FRANCESCA ALVES M.D. LYDIA BURTON M.D. FINAL REPORT The radiology attending physician has personally reviewed this study, and has reviewed and/or edited this written report and agrees with it. ACC# Date Time Exam [id number] Oct 26, 2014 13:01:00 [facility] [id number] Diag Mammogram Unilateral R Technologist(s): Aruna Enriquez; ; [id number] Oct 26, 2014 13:25:00 [facility] [address] Breast US unilateral, ltd R EXAMINATION: RIGHT FULL FIELD DIGITAL DIAGNOSTIC MAMMOGRAM AND RIGHT BREAST SONOGRAM HISTORY: Abnormal diagnostic mammogram from an outside institution ([facility]). 54-year-old female recently presented to [facility] with a palpable right breast lump in the superior portion of the right areola. MAMMOGRAM TECHNIQUE: Additional views of the right breast were obtained utilizing full field digital mammography. COMPARISON: 10/19/2014, 2014, 06/13/2013, 06/07/2013, 05/14/2012, and 05/02/2011. BREAST PARENCHYMAL COMPOSITION: The breasts are heterogeneously dense, which may obscure small masses. MAMMOGRAM FINDINGS: Additional views demonstrate confirmed a spiculated focal asymmetry with architectural distortion best seen on the craniocaudal view just superior to the right nipple at anterior depth. SONOGRAM FINDINGS: Directed sonogram of the upper outer quadrant and subareolar area of the breast was performed. There is a vascular solid irregular mass approximately 1 cm superior to the right nipple at anterior depth measuring approximately 1.6 cm in greatest dimension. This correlates with a palpable abnormality on physical exam and also with the spiculated focal asymmetry with architectural distortion seen on mammogram. Other scattered cystic lesions are seen throughout the upper outer quadrant of the right breast some of which contain debris and some of which are associated with slightly dilated ducts. None of these cystic lesions demonstrated vascular flow internally. IMPRESSION: 1) Irregular solid mass with internal vascularity approximately 1 cm superior to the right nipple at anterior depth measuring approximately 1.6 cm in greatest dimension correlating with the patient's palpable abnormality and mammographic focal asymmetry and architectural distortion. Findings are suspicious for primary breast malignancy. 2) Ultrasound guided core needle biopsy is recommended. Given heterogeneous breast density, patient age, and associated calcifications in the upper outer quadrant of the right breast further evaluation of disease extent could be obtained with breast MRI implant indicated. The above findings and recommendations were discussed with the patient at the conclusion of the examination. These findings were communicated to ADRIANA Kelly ACNS-. The patient has been scheduled to return to the [facility] for an ultrasound-guided core needle biopsy of the right breast on 10/27/2014 at 10:15 a.m. OVERALL FINAL ASSESSMENT: BI-RADS Category 5: Highly suggestive of malignancy. Requested By: Dictated By: LYDIA BURTON M.D. on Oct 26 2014 3:54P This document has been electronically signed by: FRANCESCA ALVES M.D. on Oct 26 2014 4:03P [id number] us Historical Provider MD PERALES US PROCEDURES Final R esult * DIGITAL MAMMOGRAPHY, UNILATERAL (10/26/2014 1:01 PM CDT) Anatomical Region Laterality Modality Breast Mammography 10/26/2014 1:01 PM CDT Narrative 10/26/2014 4:03 PM CDT FRANCESCA ALVES M.D. LYDIA BURTON M.D. FINAL REPORT The radiology attending physician has personally reviewed this study, and has reviewed and/or edited this written report and agrees with it. ACC# ??Date Time ??Exam [id number] Oct 26, 2014 13:01:00 [facility] [id number] Diag Mammogram Unilateral R ?? Technologist(s): Aruna Enriquez; ; [id number] Oct 26, 2014 13:25:00 [facility] [address] Breast US unilateral, ltd R EXAMINATION: ?? RIGHT FULL FIELD DIGITAL DIAGNOSTIC MAMMOGRAM AND RIGHT BREAST SONOGRAM HISTORY: Abnormal diagnostic mammogram from an outside institution ([facility]). 54-year-old female recently presented to [facility] with a palpable right breast lump in the superior portion of the right areola. MAMMOGRAM TECHNIQUE: Additional views of the right breast were obtained utilizing full field digital mammography. COMPARISON: 10/19/2014, 2014, 06/13/2013, 06/07/2013, 05/14/2012, and 05/02/2011. BREAST PARENCHYMAL COMPOSITION: The breasts are heterogeneously dense, which may obscure small masses. MAMMOGRAM FINDINGS: Additional views demonstrate confirmed a spiculated focal asymmetry with architectural distortion best seen on the craniocaudal view just superior to the right nipple at anterior depth. SONOGRAM FINDINGS: Directed sonogram of the upper outer quadrant and subareolar area of the breast was performed. There is a vascular solid irregular mass approximately 1 cm superior to the right nipple at anterior depth measuring approximately 1.6 cm in greatest dimension. This correlates with a palpable abnormality on physical exam and also with the spiculated focal asymmetry with architectural distortion seen on mammogram. Other scattered cystic lesions are seen throughout the upper outer quadrant of the right breast some of which contain debris and some of which are associated with slightly dilated ducts. None of these cystic lesions demonstrated vascular flow internally. IMPRESSION: ?? 1) Irregular solid mass with internal vascularity approximately 1 cm superior to the right nipple at anterior depth measuring approximately 1.6 cm in greatest dimension correlating with the patient's palpable abnormality and mammographic focal asymmetry and architectural distortion. Findings are suspicious for primary breast malignancy. 2) Ultrasound guided core needle biopsy is recommended. Given heterogeneous breast density, patient age, and associated calcifications in the upper outer quadrant of the right breast further evaluation of disease extent could be obtained with breast MRI implant indicated. The above findings and recommendations were discussed with the patient at the conclusion of the examination. These findings were communicated to ADRIANA Kelly ACNS-. ??The patient has been scheduled to return to the [facility] for an ultrasound-guided core needle biopsy of the right breast on 10/27/2014 at 10:15 a.m. OVERALL FINAL ASSESSMENT: BI-RADS Category 5: Highly suggestive of malignancy. Requested By: Dictated By: ?? LYDIA BURTON M.D. ??on Oct 26 2014 ??3:54P This document has been electronically signed by: FRANCESCA ALVES M.D. on Oct 26 2014 ??4:03P [id number] Procedure Note Provider, MD Ronda - 08/04/2016 FRANCESCA ALVES M.D. LYDIA BURTON M.D. FINAL REPORT The radiology attending physician has personally reviewed this study, and has reviewed and/or edited this written report and agrees with it. ACC# Date Time Exam [id number] Oct 26, 2014 13:01:00 [facility] 722[address] Diag Mammogram Unilateral R Technologist(s): Aruna Enriquez; ; [id number] Oct 26, 2014 13:25:00 [facility] [address] Breast US unilateral, ltd R EXAMINATION: RIGHT FULL FIELD DIGITAL DIAGNOSTIC MAMMOGRAM AND RIGHT BREAST SONOGRAM HISTORY: Abnormal diagnostic mammogram from an outside institution ([facility]). 54-year-old female recently presented to [facility] with a palpable right breast lump in the superior portion of the right areola. MAMMOGRAM TECHNIQUE: Additional views of the right breast were obtained utilizing full field digital mammography. COMPARISON: 10/19/2014, 2014, 06/13/2013, 06/07/2013, 05/14/2012, and 05/02/2011. BREAST PARENCHYMAL COMPOSITION: The breasts are heterogeneously dense, which may obscure small masses. MAMMOGRAM FINDINGS: Additional views demonstrate confirmed a spiculated focal asymmetry with architectural distortion best seen on the craniocaudal view just superior to the right nipple at anterior depth. SONOGRAM FINDINGS: Directed sonogram of the upper outer quadrant and subareolar area of the breast was performed. There is a vascular solid irregular mass approximately 1 cm superior to the right nipple at anterior depth measuring approximately 1.6 cm in greatest dimension. This correlates with a palpable abnormality on physical exam and also with the spiculated focal asymmetry with architectural distortion seen on mammogram. Other scattered cystic lesions are seen throughout the upper outer quadrant of the right breast some of which contain debris and some of which are associated with slightly dilated ducts. None of these cystic lesions demonstrated vascular flow internally. IMPRESSION: 1) Irregular solid mass with internal vascularity approximately 1 cm superior to the right nipple at anterior depth measuring approximately 1.6 cm in greatest dimension correlating with the patient's palpable abnormality and mammographic focal asymmetry and architectural distortion. Findings are suspicious for primary breast malignancy. 2) Ultrasound guided core needle biopsy is recommended. Given heterogeneous breast density, patient age, and associated calcifications in the upper outer quadrant of the right breast further evaluation of disease extent could be obtained with breast MRI implant indicated. The above findings and recommendations were discussed with the patient at the conclusion of the examination. These findings were communicated to ADRIANA Kelly ACNS-BC. The patient has been scheduled to return to the [facility] for an ultrasound-guided core needle biopsy of the right breast on 10/27/2014 at 10:15 a.m. OVERALL FINAL ASSESSMENT: BI-RADS Category 5: Highly suggestive of malignancy. Requested By: Dictated By: LYDIA BURTON M.D. on Oct 26 2014 3:54P This document has been electronically signed by: FRANCESCA ALVES M.D. on Oct 26 2014 4:03P [id number] Historical Provider MD PERALES MAMMO PROCEDURES Mary l Result * XR Interpretation Of Outside Films (10/26/2014 9:45 AM CDT) Anatomical Region Laterality Modality N/A Radiographic Aktty ging 10/26/2014 9:45 AM CDT Narrative 10/26/2014 3:31 PM CDT FRANCESCA ALVES M.D. LYDIA BURTON M.D. FINAL REPORT The radiology attending physician has personally reviewed this study, and has reviewed and/or edited this written report and agrees with it. ACC# ??Date Time ??Exam [id number] Oct 26, 2014 09:45:00 [facility] [id number] Consult Out Films (read) EXAMINATION: ?? READING OF OUTSIDE IMAGING EXAMINATION - BILATERAL DIGITAL DIAGNOSTIC MAMMOGRAM (8 images) performed at the [facility] on 10/19/2014. DATE OF INTERPRETATION: 10/26/2014 HISTORY: Abnormal mammogram from another institution. Interpretation of the patient's outside mammogram is requested by Elina Aguirre, MSN [facility]- who will see the patient in breast surgery clinic today. COMPARISON: 2014, 06/13/2013, 06/07/2013, 05/14/2012, and 05/02/2011. BREAST PARENCHYMAL COMPOSITION: The breasts are heterogeneously dense, which may obscure small masses. FINDINGS: There is a focal asymmetry with architectural distortion in the slightly upper right breast. This finding is at anterior depth. This finding likely correlates to the reported mass discovered on outside breast ultrasound. No suspicious finding is seen within the left breast on the recent screening mammogram performed at [facility] 2014. IMPRESSION: ?? 1. Focal asymmetry with architectural distortion in the slightly upper right breast at anterior depth. Additional mammographic images and right breast sonogram are recommended for further evaluation. NOTE: The findings, conclusions and recommendations within this report do not replace the initial findings, conclusions and recommendations made at the facility where the study was performed based upon the imaging and clinical condition at that time. ??Review of the prior report and correlation with the clinical history are necessary. The provided images may or may not represent the [employer] source data set and thus may contain changes which may lower the sensitivity in the second opinion interpretation. Requested By: Dictated By: ?? LYDIA BURTON M.D. ??on Oct 26 2014 10:57A This document has been electronically signed by: FRANCESCA ALVES M.D. on Oct 26 2014 ??3:31P Procedure Note Provider, MD Ronda - 08/04/2016 FRANCESCA ALVES M.D. LYDIA BURTON M.D. FINAL REPORT The radiology attending physician has personally reviewed this study, and has reviewed and/or edited this written report and agrees with it. ACC# Date Time Exam [id number] Oct 26, 2014 09:45:00 [facility] [id number] Consult Out Films (read) EXAMINATION: READING OF OUTSIDE IMAGING EXAMINATION - BILATERAL DIGITAL DIAGNOSTIC MAMMOGRAM (8 images) performed at the [facility] on 10/19/2014. DATE OF INTERPRETATION: 10/26/2014 HISTORY: Abnormal mammogram from another institution. Interpretation of the patient's outside mammogram is requested by Elina Aguirre, MSN [facility] who will see the patient in breast surgery clinic today. COMPARISON: 2014, 06/13/2013, 06/07/2013, 05/14/2012, and 05/02/2011. BREAST PARENCHYMAL COMPOSITION: The breasts are heterogeneously dense, which may obscure small masses. FINDINGS: There is a focal asymmetry with architectural distortion in the slightly upper right breast. This finding is at anterior depth. This finding likely correlates to the reported mass discovered on outside breast ultrasound. No suspicious finding is seen within the left breast on the recent screening mammogram performed at [facility] 2014. IMPRESSION: 1. Focal asymmetry with architectural distortion in the slightly upper right breast at anterior depth. Additional mammographic images and right breast sonogram are recommended for further evaluation. NOTE: The findings, conclusions and recommendations within this report do not replace the initial findings, conclusions and recommendations made at the facility where the study was performed based upon the imaging and clinical condition at that time. Review of the prior report and correlation with the clinical history are necessary. The provided images may or may not represent the [employer] source data set and thus may contain changes which may lower the sensitivity in the second opinion interpretation. Requested By: Dictated By: LYDIA BURTON M.D. on Oct 26 2014 10:57A This document has been electronically signed by: FRANCESCA ALVES M.D. on Oct 26 2014 3:31P us Historical Provider MD PERALES XR PROCEDURES Final R esult * XR Interpretation Of Outside Films (10/19/2014 10:55 AM CDT) Anatomical Region Laterality Modality N/A Radiographic Katty ging 10/19/2014 10:5 5 AM CDT us Historical Provider MD PERALES XR PROCEDURES Final R esult documented in this encounter Visit Diagnoses Diagnosis Malignant neoplasm of breast (female) (HCC) Malignant neoplasm of breast (female), unspecified site documented in this encounter
--- OUTSIDE RECORDS SUMMARY | 2024-04-24 05:58 | XMS_ITS | Encounter Summary ---
Author Organization [facility] Healthcare Address [address] [place] [address] Care Team Providers Care Meal Cooker Name Role Phone Mark Cerna DO Primary Care Provider +1- [phone] Encounter Details Date Type Department Care Team (Latest Contact Info) Description 01/28/2017 9:20 AM CDT - 02/26/2017 11:59 PM HOSPITAL LIBRARIAN Hospital Encounter [facility] OP INTERIM [phone] Harpal Calix MD [address] [place] [address] [address] Discharge Disposition: Discharge to home or self care Social History Tobacco Use Types Packs/Day Years Used Date Smoking Tobacco: Never Assessed Comments Unknown Sex and Gender Information Value Date Recorded Sex Assigned at Not on file 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 Gender Identity Not on file Sexual [...] Procedure Name Priority Date/Time Associated Diagnosis Comments CANCER ANTIGEN 15-3 Routine Gen Lab 02/26/2017 1 0:00 AM HOSPITAL LIBRARIAN COMPREHENSIVE METABOLIC PANEL STAT 02/26/2017 10:00 AM HOSPITAL LIBRARIAN CBC WITH AUTO DIFFERENTIAL Routine Gen Lab 02/26/2017 9:51 AM HOSPITAL LIBRARIAN DISCHARGE LABORATORY CUMULATIVE REPORT 01/28/2017 12:00 AM CDT documented in this encounter Results * Cancer antigen 15-3 (02/26/2017 10:00 AM HOSPITAL LIBRARIAN) Pathologist [facility] [place] 15-3 ag 7.9 1.0 - 30.0 units/mL [facility] Blood specimen (specimen) 02/26/2017 10:00 AM HOSPITAL LIBRARIAN 02/26/2017 10:58 AM HOSPITAL LIBRARIAN Harpal Calix MD LAB BLOOD ORDERABLES Mary l Result [facility] [place] [address] * Comprehensive metabolic panel (02/26/2017 10:00 AM HOSPITAL LIBRARIAN) Pathologist [facility] Sodium 143 135 - 145 mmol/L [facility] Potassium, pl 4.6 3.3 - 4.9 mmol/L [facility] CO2 29 22 - 32 mmol/L [facility] BUN 14 8 - 25 mg/dL [facility] Glucose 88 70 - 199 mg/dL [facility] Comment: Interpretive Data Fasting glucose >/= 126 [...] interpretive data was last revised 2017. Creatinine 0.75 0.60 - 1.10 mg/dL [facility] Calcium 9.4 8.5 - 10.3 mg/dL [facility] Chloride 106 97 - 110 mmol/L [facility] Albumin 4.6 3.5 - 5.0 g/dL [facility] AST 24 10 - 45 Units/L [facility] ALT 23 7 - 45 Units/L [facility] Alk phos 44 40 - 130 Units/L [facility] Bilirubin, total 0.3 0.1 - 1.2 mg/dL [facility] Protein, pl 7.2 6.5 - 8.5 g/dL [facility] Anion gap 8 2 - 15 mmol/L [facility] Blood specimen (specimen) 02/26/2017 10:00 AM HOSPITAL LIBRARIAN 02/26/2017 10:04 AM HOSPITAL LIBRARIAN Harpal Calix MD LAB BLOOD ORDERABLES Mary valadez Result [facility] Department [place] [address] * (ABNORMAL) CBC with auto differential (02/26/2017 9:51 AM HOSPITAL LIBRARIAN) WBC 3.6(L) 3.8 - 9.8 K/cumm [facility] RBC 3.86(L) 3.90 - 5.00 M/cumm [facility] Hgb 13.0 12.1 - 15.1 g/dL [facility] Hct 39.5 36.1 - 44.3 % [facility] Mean Cellular Volume - CAM 102.3(H) 80.0 - 97.6 fL [facility] Mean Cellular Hemoglobin - CAM 33.7 26.7 - 33.7 pg [facility] Mean Cellular Hemoglobin Concentration - CAM 32.9 32.7 - 35.5 g/dL [facility] Rdw 14.2 11.8 - 14.6 % [facility] Plt 187 140 - 440 K/cumm [facility] Mean Platelet Volume - CAM 8.3 6.8 - 10.4 fL [facility] Neutrophil pct 53.3 38.7 - 74.5 % [facility] Lymphocyte pct 31.8 20.0 - 54.3 % [facility] Monos 12.9 4.3 - 13.5 % [facility] Eosinophil pct 1.5 0.0 - 6.0 % [facility] Basophil pct 0.5 0.0 - 3.0 % [facility] Neutrophil abs 1.9 1.8 - 6.6 K/cumm [facility] Lymphocyte abs 1.1(L) 1.2 - 3.3 K/cumm [facility] Monocyte abs 0.5 0.2 - 1.2 K/cumm [facility] Eosinophils, abs 0.1 0.0 - 0.5 K/cumm [facility] Basophil abs 0.0 0.0 - 0.2 K/cumm [facility] NRBC 0.1 0.0 - 0.2 % [facility] NRBC abs 0.00 0.00 - 0.01 K/cumm [facility] Blood specimen (specimen) 02/26/2017 9:51 AM HOSPITAL LIBRARIAN 02/26/2017 9:54 AM HOSPITAL LIBRARIAN us Harpal Calix MD LAB BLOOD ORDERABLES Mary l Result [facility] Department [place] [address] * DISCHARGE LABORATORY CUMULATIVE REPORT (01/28/2017 12:00 AM CDT) Narrative 01/28/2017 12:00 AM CDT Ordered by an unspecified provider. us Historical Provider LAB BLOOD ORDERABLES Mary l Result documented in this encounter Visit Diagnoses Not on filedocumented in this encounter Care Teams Meal Cooker Relationship Specialty Start Date End Date Mark Cerna DO PCP - General 09/04/16 01/17/19 documented as of this encounter
--- OUTSIDE RECORDS SUMMARY | 2024-04-24 05:58 | XMS_ITS | Encounter Summary ---
Author Organization [facility] Healthcare Address [address] [place] [address] Care Team Providers Care Inking Machine Tender Name Role Phone Mark Cerna DO Primary Care Provider +1- [phone] Encounter Details Date Type Department Care Team (Latest Contact Info) Description 03/18/2017 1:56 PM MARKETING DIRECTOR ASSISTED LIVING - 03/18/2017 11:59 PM MARKETING DIRECTOR ASSISTED LIVING Hospital Encounter [facility] OP INTERIM [phone] Yue Aguirre, [facility] [address] [address] Discharge Disposition: Discharge to home or self care Social History Tobacco Use Types Packs/Day Years Used Date Smoking Tobacco: Never Assessed Comments Unknown Sex and Gender Information Value Date Recorded Sex Assigned at Not on file Legal Sex Female 3:42 AM MARKETING DIRECTOR ASSISTED LIVING Gender Identity Not on file Sexual Orientation [...] Date/Time Associated Diagnosis Comments BREAST SONOGRAPHY Routine 03/18/2017 8:4 9 PM MARKETING DIRECTOR ASSISTED LIVING documented in this encounter Results * BREAST SONOGRAPHY (03/18/2017 8:49 PM MARKETING DIRECTOR ASSISTED LIVING) Anatomical Region Laterality Modality Ultrasound 03/18/2017 8:49 PM MARKETING DIRECTOR ASSISTED LIVING Narrative 03/18/2017 8:57 PM MARKETING DIRECTOR ASSISTED LIVING DELISA GALLARDO M.D. FINAL REPORT ACC# ??Date Time ??Exam [id number] Mar 18, 2017 14:49:00 [facility] [id number] Breast US unilateral, ltd L EXAMINATION: ??Follow-up per LEFT BREAST ULTRASOUND HISTORY: Prior breast conservation therapy for cancer in the right breast and over the past several weeks felt some areas of questionable raised ducts under the skin in the medial left subareolar breast. The patient cannot feel these today COMPARISON: None TECHNIQUE: Directed ultrasound evaluation of the medial left breast was performed. ULTRASOUND FINDINGS: Ultrasound is normal. IMPRESSION: ??Negative ultrasound OVERALL FINAL ASSESSMENT: BI-RADS Category 1: Negative. Annual diagnostic mammography is recommended. Electronically signed by: Delisa Gallardo M.D. Requested By: YUE AGUIRRE ??ANALYSIS ENGINEER ? Dictated By: ?? DELISA GALLARDO M.D. ??on Mar ??2016 ??2:55P This document has been electronically signed by: DELISA GALLARDO M.D. on Mar ??2016 ??2:55P [id number] GALLARDO M.D. FINAL REPORT Attending: ??KEVAN, ??YUE Requesting: ??KEVAN, ??YUE Requesting Fax: ?? Attending Fax: ?? Attending ID: ??[id number] Requesting ID: ??[id number] Report To 1 ID: ??[id number] ? Report To 1 Name: ??, ?? Report To 1 FAX: ?? NextGen Order #: ?? Procedure Note Miscellaneous, Not In File - 03/18/2017 DELISA GALLARDO M.D. FINAL REPORT ACC# Date Time Exam [id number] Mar 18, 2017 14:49:00 [facility] [address] Breast US unilateral, ltd L EXAMINATION: Follow-up per LEFT BREAST ULTRASOUND HISTORY: Prior breast conservation therapy for cancer in the right breast and over the past several weeks felt some areas of questionable raised ducts under the skin in the medial left subareolar breast. The patient cannot feel these today COMPARISON: None TECHNIQUE: Directed ultrasound evaluation of the medial left breast was performed. ULTRASOUND FINDINGS: Ultrasound is normal. IMPRESSION: Negative ultrasound OVERALL FINAL ASSESSMENT: BI-RADS Category 1: Negative. Annual diagnostic mammography is recommended. Electronically signed by: Delisa Gallardo M.D. Requested By: YUE AGUIRRE Dictated By: DELISA GALLARDO M.D. on Mar 18 2017 2:55P This document has been electronically signed by: DELISA GALLARDO M.D. on Mar 18 2017 2:55P [id number] GALLARDO M.D. FINAL REPORT Attending: YUE AGUIRRE Requesting: UYE AGUIRRE Requesting Fax: Attending Fax: Attending ID: [id number] Requesting ID: [id number] Report To 1 ID: [id number] Report To 1 Name: , Report To 1 FAX: NextGen Order #: us Yue LIM IMG US PROCEDURES Final Resu lt documented in this encounter Visit Diagnoses Not on filedocumented in this encounter Care Teams Inking Machine Tender Relationship Specialty Start Date End Date Mark Cerna DO PCP - General 09/04/16 01/17/19 documented as of this encounter
--- OUTSIDE RECORDS SUMMARY | 2024-04-24 05:58 | XMS_ITS | Encounter Summary ---
Author Organization [facility] Facility Care Team Providers Care Machinery Dismantler Name Role Phone Unavailable Primary Care Provider Unavailabl e Encounter Details Date Type Department Care Team (Late st Contact Info) Description 11/18/2010 9:07 AM CDT - 11/18/2010 4:00 PM CDT Hospital Encounter [facility] Harpal Bauer MD [address] [place] [address] DR DEPT NEUROSURGERY, [place] [address] Aneurysm of other specified artery Social History Tobacco Use Types Packs/Day Years Used Date Smoking Tobacco: Never Assessed Comments Unknown Sex and Gender Information Value Date Recorded Sex Assigned at Not on file Legal Sex Female 3:42 AM HOUSEKEEPING LEAD Gender Identity Not on file Sexual Orientation Not on file documented as of this encounter Plan of Treatment Not on file documented as of this encounter Visit Diagnoses Diagnosis Aneurysm of other specified artery documented in this encounter
--- OUTSIDE RECORDS SUMMARY | 2024-04-24 05:58 | XMS_ITS | Encounter Summary ---
Author Organization [facility] Facility Care Team Providers Care Senior Java J2Ee Developer Name Role Phone Unavailable Primary Care Provider Unavailabl e Encounter Details Date Type Department Care Team (Late st Contact Info) Description 11/02/2014 - 11/02/2014 11:59 PM CDT Hospital Encounter [facility] Gasper Gomez MD [address] [address] Malignant neoplasm of breast (female) (CMS/HCC) Social History Tobacco Use Types Packs/Day Years Used Date Smoking Tobacco: Never Assessed Comments Unknown Sex and Gender Information Value Date Recorded Sex Assigned at Not on file Legal Sex Female 3:42 AM VP TALENT MANAGEMENT Gender Identity Not on file Sexual Orientation Not on file documented as of this encounter Plan of Treatment Not on file documented as of this encounter Procedures Procedure Name Priority Date/Time Associated Diagnosis Comments US BREAST LIMITED Routine 11/02/2014 3:0 4 PM CDT documented in this encounter Results * US Breast Limited (11/02/2014 3:04 PM CDT) Anatomical Region Laterality Modality Breast N/A Ultrasound 11/02/2014 3:04 PM CDT Narrative 11/02/2014 3:08 PM CDT EARL GALLARDO M.D. FINAL REPORT ACC# ??Date Time ??Exam [id number] Nov 02, 2014 15:04:00 [facility] [address] Axillary Breast Ultrasound R EXAMINATION: ?? Right axillary SONOGRAM HISTORY: ??Patient with known biopsy-proven malignancy in the right breast here for evaluation of her right axilla. FINDINGS: Directed sonogram of the right axilla was performed. Normal axillary lymph nodes were identified. No abnormal masses or enlarged nodes are seen. IMPRESSION: ?? Normal right axillary ultrasound. Requested By: Dictated By: ?? EARL GALLARDO M.D. ??on Nov 02 2014 ??3:08P This document has been electronically signed by: EARL GALLARDO M.D. on Nov 02 2014 ??3:08P Procedure Note Provider, MD Ronda - 08/04/2016 EARL GALLARDO M.D. FINAL REPORT ACC# Date Time Exam [id number] Nov 02, 2014 15:04:00 [facility] [address] Axillary Breast Ultrasound R EXAMINATION: Right axillary SONOGRAM HISTORY: Patient with known biopsy-proven malignancy in the right breast here for evaluation of her right axilla. FINDINGS: Directed sonogram of the right axilla was performed. Normal axillary lymph nodes were identified. No abnormal masses or enlarged nodes are seen. IMPRESSION: Normal right axillary ultrasound. Requested By: Dictated By: EARL GALLARDO M.D. on Nov 02 2014 3:08P This document has been electronically signed by: EARL GALLARDO M.D. on Nov 02 2014 3:08P us Historical Provider IMCindy US PROCEDURES Final R esult documented in this encounter Visit Diagnoses Diagnosis Malignant neoplasm of breast (female) (HCC) Malignant neoplasm of breast (female), unspecified site documented in this encounter
--- OUTSIDE RECORDS SUMMARY | 2024-04-24 05:58 | XMS_ITS | Encounter Summary ---
Author Organization [facility] Facility Care Team Providers Care Spraying Machine Operator Name Role Phone Unavailable Primary Care Provider Unavailabl e Encounter Details Date Type Department Care Team (Late st Contact Info) Description 05/01/2016 9:02 AM GEAR STRAIGHTENER - 05/01/2016 11:59 PM [facility] Hospital Encounter [facility] Erica Armijo MD [address] [facility] [address] [place] [address] Social History Tobacco Use Types Packs/Day Years Used Date Smoking Tobacco: Never Assessed Comments Unknown Sex and Gender Information Value Date Recorded Sex Assigned at Not on file Legal Sex Female 3:42 AM GEAR STRAIGHTENER Gender Identity Not on file Sexual Orientation Not on file documented as of this encounter Medications at Time of Discharge hydroxychloroquin e (PLAQUENIL) 200 mg tablet daily. 12/27/2015 06/10/2018 methotrexate 2.5 mg tablet TAKE 8 TABLETS ONCE WEEKLY 09/07/2015 02/19/2018 sulfaSALAzine EN (AZULFIDINE EN) 500 mg EC tablet TAKE 1 TABLET TWICE A DAY 03/03/2016 06/10/2018 documented as of this encounter Plan of Treatment Not on file documented as of this encounter Visit Diagnoses Not on filedocumented in this encounter
--- OUTSIDE RECORDS SUMMARY | 2024-04-24 05:58 | XMS_ITS | Encounter Summary ---
Author Organization [facility] Facility Care Team Providers Care Truck Despatcher Name Role Phone Unavailable Primary Care Provider Unavailabl e Encounter Details Date Type Department Care Team (Latest Contact Info) Description 11/08/2015 10:30 AM CDT - 11/08/2015 11:59 PM CDT Hospital En[facility] CLINDyana Courtney MD [address] [place], [place] [id number] Other abnormal and inconclusive findings on diagnostic imaging of breast; Personal history of malignant neoplasm of breast Social History Tobacco Use Types Packs/Day Years Used Date Smoking Tobacco: Never Assessed Comments Unknown Sex and Gender Information Value Date Recorded Sex Assigned at Not on file Legal Sex Female 3:42 AM SENIOR PRODUCT DEVELOPMENT MANAGER Gender Identity Not on file Sexual Orientation Not on file documented as of this encounter Medications at Time of Discharge methotrexate 2.5 mg tablet TAKE 8 TABLETS ONCE WEEKLY 09/07/2015 02/19/2018 documented as of this encounter Plan of Treatment Not on file documented as of this encounter Procedures Procedure Name Priority Date/Time Associated Diagnosis Comments DIAGNOSTIC MAMMOGRAM BILATERAL W MARCELO Routine 11/08/2015 11:05 AM CDT DIAGNOSTIC MAMMOGRAM 2D BILATERAL Routine 11/08/2015 11:05 AM CDT documented in this encounter Results * DIAGNOSTIC MAMMOGRAM BILATERAL W MARCELO (11/08/2015 11:05 AM CDT) Anatomical Region Laterality Modality Breast Bilateral Mammography 11/08/2015 11:0 5 AM CDT Narrative 11/08/2015 11:42 AM CDT FRANCESCA ALVES M.D. LEANA SETHI M.D. FINAL REPORT The radiology attending physician has personally reviewed this study, and has reviewed and/or edited this written report and agrees with it. ACC# ??Date Time ??Exam [id number] Nov 08, 2015 11:05:00 [facility] [address] Dig Breast Marcelo Ananth ?? Technologist(s): Aruna Enriquez; ; [id number] Nov 08, 2015 11:05:00 [facility] [address] Diag Mammogram Bilateral ?? Technologist(s): Aruna Enriquez; ; EXAMINATION: ?? BILATERAL FULL FIELD DIGITAL DIAGNOSTIC MAMMOGRAM WITH CAD AND BILATERAL DIGITAL BREAST TOMOSYNTHESIS HISTORY: Personal history of RIGHT breast cancer with prior breast conservation therapy in 2014. Excisional biopsy of benign process in the LEFT breast in 2002. TECHNIQUE: Full field digital craniocaudal and mediolateral oblique views of both breasts were obtained. Computer Aided Detection was performed with [employer].3 version 9.3. ??Bilateral digital breast tomosynthesis was performed and reviewed as a part of this examination. COMPARISON: 10/26/2014 BREAST PARENCHYMAL COMPOSITION: ??The breasts are heterogeneously dense, which may obscure small masses. FINDINGS: Findings compatible with prior RIGHT breast conservation therapy are noted. No new suspicious abnormality is identified within either breast. IMPRESSION: ?? OVERALL FINAL ASSESSMENT: ??BI-RADS Category 2: Benign finding. RECOMMENDATION: ??Bilateral diagnostic mammogram is recommended in one year. Requested By: Dictated By: ?? LEANA SETHI M.D. ??on Nov 08 2015 11:19A This document has been electronically signed by: FRANCESCA ALVES M.D. on Nov 08 2015 11:42A [id number] Procedure Note Provider, MD Ronda - 08/04/2016 FRANCESCA ALVES M.D. LEANA SETHI M.D. FINAL REPORT The radiology attending physician has personally reviewed this study, and has reviewed and/or edited this written report and agrees with it. ACC# Date Time Exam [id number] Nov 08, 2015 11:05:00 [facility] [address] Dig Breast Marcelo Ananth Technologist(s): Aruna Enriquez; ; [id number] Nov 08, 2015 11:05:00 [facility] [address] Diag Mammogram Bilateral Technologist(s): Aruna Enriquez; ; EXAMINATION: BILATERAL FULL FIELD DIGITAL DIAGNOSTIC MAMMOGRAM WITH CAD AND BILATERAL DIGITAL BREAST TOMOSYNTHESIS HISTORY: Personal history of RIGHT breast cancer with prior breast conservation therapy in 2014. Excisional biopsy of benign process in the LEFT breast in 2002. TECHNIQUE: Full field digital craniocaudal and mediolateral oblique views of both breasts were obtained. Computer Aided Detection was performed with [employer].3 version 9.3. Bilateral digital breast tomosynthesis was performed and reviewed as a part of this examination. COMPARISON: 10/26/2014 BREAST PARENCHYMAL COMPOSITION: The breasts are heterogeneously dense, which may obscure small masses. FINDINGS: Findings compatible with prior RIGHT breast conservation therapy are noted. No new suspicious abnormality is identified within either breast. IMPRESSION: OVERALL FINAL ASSESSMENT: BI-RADS Category 2: Benign finding. RECOMMENDATION: Bilateral diagnostic mammogram is recommended in one year. Requested By: Dictated By: LEANA SETHI M.D. on Nov 08 2015 11:19A This document has been electronically signed by: FRANCESCA ALVES M.D. on Nov 08 2015 11:42A [id number] us Historical Provider MD PERALES MAMMO PROCEDURES Mary l Result * DIAGNOSTIC MAMMOGRAM 2D BILATERAL (11/08/2015 11:05 AM CDT) Anatomical Region Laterality Modality Breast Bilateral Mammography 11/08/2015 11:0 5 AM CDT Narrative 11/08/2015 11:42 AM CDT FRANCESCA ALVES M.D. LEANA SETHI M.D. FINAL REPORT The radiology attending physician has personally reviewed this study, and has reviewed and/or edited this written report and agrees with it. ACC# ??Date Time ??Exam [id number] Nov 08, 2015 11:05:00 [facility] [address] Dig Breast Marcelo Ananth ?? Technologist(s): Aruna Enriquez; ; [id number] Nov 08, 2015 11:05:00 [facility] [address] Diag Mammogram Bilateral ?? Technologist(s): Aruna Enriquez; ; EXAMINATION: ?? BILATERAL FULL FIELD DIGITAL DIAGNOSTIC MAMMOGRAM WITH CAD AND BILATERAL DIGITAL BREAST TOMOSYNTHESIS HISTORY: Personal history of RIGHT breast cancer with prior breast conservation therapy in 2014. Excisional biopsy of benign process in the LEFT breast in 2002. TECHNIQUE: Full field digital craniocaudal and mediolateral oblique views of both breasts were obtained. Computer Aided Detection was performed with [employer] version 9.3. ??Bilateral digital breast tomosynthesis was performed and reviewed as a part of this examination. COMPARISON: 10/26/2014 BREAST PARENCHYMAL COMPOSITION: ??The breasts are heterogeneously dense, which may obscure small masses. FINDINGS: Findings compatible with prior RIGHT breast conservation therapy are noted. No new suspicious abnormality is identified within either breast. IMPRESSION: ?? OVERALL FINAL ASSESSMENT: ??BI-RADS Category 2: Benign finding. RECOMMENDATION: ??Bilateral diagnostic mammogram is recommended in one year. Requested By: Dictated By: ?? LEANA SETHI M.D. ??on Nov 08 2015 11:19A This document has been electronically signed by: FRANCESCA ALVES M.D. on Nov 08 2015 11:42A [id number] Procedure Note Provider, MD Ronda - 08/04/2016 FRANCESCA ALVES M.D. LEANA SETHI M.D. FINAL REPORT The radiology attending physician has personally reviewed this study, and has reviewed and/or edited this written report and agrees with it. ACC# Date Time Exam [id number] Nov 08, 2015 11:05:00 [facility] [address] Dig Breast Marcelo Ananth Technologist(s): Aruna Enriquez; ; [id number] Nov 08, 2015 11:05:00 [facility] [address] Diag Mammogram Bilateral Technologist(s): Aruna Enriquez; ; EXAMINATION: BILATERAL FULL FIELD DIGITAL DIAGNOSTIC MAMMOGRAM WITH CAD AND BILATERAL DIGITAL BREAST TOMOSYNTHESIS HISTORY: Personal history of RIGHT breast cancer with prior breast conservation therapy in 2014. Excisional biopsy of benign process in the LEFT breast in 2002. TECHNIQUE: Full field digital craniocaudal and mediolateral oblique views of both breasts were obtained. Computer Aided Detection was performed with [employer].3 version 9.3. Bilateral digital breast tomosynthesis was performed and reviewed as a part of this examination. COMPARISON: 10/26/2014 BREAST PARENCHYMAL COMPOSITION: The breasts are heterogeneously dense, which may obscure small masses. FINDINGS: Findings compatible with prior RIGHT breast conservation therapy are noted. No new suspicious abnormality is identified within either breast. IMPRESSION: OVERALL FINAL ASSESSMENT: BI-RADS Category 2: Benign finding. RECOMMENDATION: Bilateral diagnostic mammogram is recommended in one year. Requested By: Dictated By: LEANA SETHI M.D. on Nov 08 2015 11:19A This document has been electronically signed by: FRANCESCA ALVES M.D. on Nov 08 2015 11:42A [id number] Historical Provider MD PERALES MAMMO PROCEDURES Mary l Result documented in this encounter Visit Diagnoses Diagnosis Other abnormal and inconclusive findings on diagnostic imaging of breast Personal history of malignant neoplasm of breast documented in this encounter
--- OUTSIDE RECORDS SUMMARY | 2024-04-24 05:58 | XMS_ITS | Encounter Summary ---
Author Organization [facility] Address [address] [place] [address] Care Team Providers Care Chief Analytics Officer Name Role Phone Mark Cerna DO Primary Care Provider [phone]- [phone] Encounter Details Date Type Department Care Team (Latest Contact Info) Description 11/06/2016 4:49 PM CDT - 11/06/2016 11:59 PM T Hospital Encounter [facility] [phone] Patricia Martinez MD [address] [facility] [address] [place] [address] Discharge Disposition: Discharge to home or self care Social History Tobacco Use Types Packs/Day Years Used Date Smoking Tobacco: Never Assessed Comments Unknown Sex and Gender Information Value Date Recorded Sex Assigned at Not on file 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 FINAL REPORT ACC# ??Date Time ??Exam [id number] Nov 06, 2016 16:59:00 70337 Hand 2 views R [id number] Nov 06, 2016 16:59:00 87754 Hand 2 views L EXAMINATION: ?? 1. Left hand 2 views 2. Right hand 2 views HISTORY: Bilateral hand pain FINDINGS: Two views each hand submitted with comparison 07/12/2015. Right hand: Nonspecific third metacarpal head erosion is unchanged. There are no new erosions. There are no fractures. Alignment is normal. The joint spaces are normal. There is no dorsal wrist soft tissue swelling. Left hand: There are no erosions. There are no fractures. Alignment is normal. The joint spaces are normal. IMPRESSION: ?? 1. No radiographic evidence of inflammatory arthritis. Requested By: PATRICIA MARTINEZ M.D. Dictated By: ?? TONJA MAHONEY M.D. ??on Nov 07 2016 ??6:00A This document has been electronically signed by: TONJA MAHONEY M.D. on Nov 07 2016 ??6:00A [id number] MAHONEY M.D. FINAL REPORT Attending: ??STEVEN, ??PATRICIA Requesting: ??STEVEN, ??PATRICIA Requesting Fax: ?? Attending Fax: ?? Attending ID: ??[id number] Requesting ID: ??[id number] Report To 1 ID: ??[id number] ? Report To 1 Name: ??, ?? Report To 1 FAX: ?? NextGen Order #: ?? Procedure Note Miscellaneous, Not In File - 02/04/2017 TONJA MAHONEY M.D. FINAL REPORT ACC# Date Time Exam [id number] Nov 06, 2016 16:59:00 87095 Hand 2 views R [id number] Nov 06, 2016 16:59:00 41988 Hand 2 views L EXAMINATION: 1. Left hand 2 views 2. Right hand 2 views HISTORY: Bilateral hand pain FINDINGS: Two views each hand submitted with comparison 07/12/2015. Right hand: Nonspecific third metacarpal head erosion is unchanged. There are no new erosions. There are no fractures. Alignment is normal. The joint spaces are normal. There is no dorsal wrist soft tissue swelling. Left hand: There are no erosions. There are no fractures. Alignment is normal. The joint spaces are normal. IMPRESSION: 1. No radiographic evidence of inflammatory arthritis. Requested By: PATRICIA MARTINEZ M.D. Dictated By: TONJA MAHONEY M.D. on Nov 07 2016 6:00A This document has been electronically signed by: TONJA MAHONEY M.D. on Nov 07 2016 6:00A [id number] MAHONEY M.D. FINAL REPORT Attending: PATRICIA MARTINEZ Requesting: PATRICIA MARTINEZ Requesting Fax: Attending Fax: Attending ID: [id number] Requesting ID: [id number] Report To 1 ID: [id number] Report To 1 Name: , Report To 1 FAX: NextGen Order #: us Patricia Martinez MD IMG XR PROCEDURES Edited Res ult - Final * XR Hand Left 2 Views (11/06/2016 9:59 PM CDT) Anatomical Region Laterality Modality Upper Extremities, Hand Left Radiogra phic Imaging 11/06/2016 9:59 PM CDT Narrative 11/06/2016 9:59 PM CDT TONJA MAHONEY M.D. FINAL REPORT ACC# ??Date Time ??Exam [id number] Nov 06, 2016 16:59:00 31510 Hand 2 views R [id number] Nov 06, 2016 16:59:00 19169 Hand 2 views L EXAMINATION: ?? 1. Left hand 2 views 2. Right hand 2 views HISTORY: Bilateral hand pain FINDINGS: Two views each hand submitted with comparison 07/12/2015. Right hand: Nonspecific third metacarpal head erosion is unchanged. There are no new erosions. There are no fractures. Alignment is normal. The joint spaces are normal. There is no dorsal wrist soft tissue swelling. Left hand: There are no erosions. There are no fractures. Alignment is normal. The joint spaces are normal. IMPRESSION: ?? 1. No radiographic evidence of inflammatory arthritis. Requested By: PATRICIA MARTINEZ M.D. Dictated By: ?? TONJA MAHONEY M.D. ??on Nov 07 2016 ??6:00A This document has been electronically signed by: TONJA MAHONEY M.D. on Nov 07 2016 ??6:00A [id number] MAHONEY M.D. FINAL REPORT Attending: ??STEVEN, ??PATRICIA Requesting: ??STEVEN, ??PATRICIA Requesting Fax: ?? Attending Fax: ?? Attending ID: ??[id number] Requesting ID: ??[id number] Report To 1 ID: ??[id number] ? Report To 1 Name: ??, ?? Report To 1 FAX: ?? NextGen Order #: ?? Procedure Note Miscellaneous, Not In File - 02/04/2017 TONJA MAHONEY M.D. FINAL REPORT ACC# Date Time Exam [id number] Nov 06, 2016 16:59:00 88992 Hand 2 views R [id number] Nov 06, 2016 16:59:00 76390 Hand 2 views L EXAMINATION: 1. Left hand 2 views 2. Right hand 2 views HISTORY: Bilateral hand pain FINDINGS: Two views each hand submitted with comparison 07/12/2015. Right hand: Nonspecific third metacarpal head erosion is unchanged. There are no new erosions. There are no fractures. Alignment is normal. The joint spaces are normal. There is no dorsal wrist soft tissue swelling. Left hand: There are no erosions. There are no fractures. Alignment is normal. The joint spaces are normal. IMPRESSION: 1. No radiographic evidence of inflammatory arthritis. Requested By: PATRICIA MARTINEZ M.D. Dictated By: TONJA MAHONEY M.D. on Nov 07 2016 6:00A This document has been electronically signed by: TONJA MAHONEY M.D. on Nov 07 2016 6:00A [id number] MAHONEY M.D. FINAL REPORT Attending: PATRICIA MARTINEZ Requesting: PATRICIA MARTINEZ Requesting Fax: Attending Fax: Attending ID: [id number] Requesting ID: [id number] Report To 1 ID: [id number] Report To 1 Name: , Report To 1 FAX: NextGen Order #: Patricia Martinez MD IMG XR PROCEDURES Edited Res ult - Final documented in this encounter Visit Diagnoses Not on filedocumented in this encounter Care Teams Chief Analytics Officer Relationship Specialty Start Date End Date Mark Cerna DO PCP - General 09/04/16 01/17/19 documented as of this encounter
--- OUTSIDE RECORDS SUMMARY | 2024-04-24 05:58 | XMS_ITS | Encounter Summary ---
Author Organization [facility] Facility Care Team Providers Care Hourly Shift Manager Name Role Phone Unavailable Primary Care Provider Unavailabl e Encounter Details Date Type Department Care Team (Late st Contact Info) Description 11/03/2014 - 11/03/2014 11:59 PM CDT Hospital Encounter [facility] Gasper Gomez MD [facility] [address] Malignant neoplasm of breast (female) (CMS/HCC) Social History Tobacco Use Types Packs/Day Years Used Date Smoking Tobacco: Never Assessed Comments Unknown Sex and Gender Information Value Date Recorded Sex Assigned at Not on file 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 us Historical Provider LAB BLOOD ORDERABLES Mary l Result * MRI BREAST CAD (11/03/2014 3:58 PM CDT) Anatomical Region Laterality Modality Breast X-Ray Angiograph y 11/03/2014 3:58 PM CDT Narrative 11/06/2014 11:05 AM CDT ANDREAS ROGERS M.D. JAMIE HUANG M.D. FINAL REPORT The radiology attending physician has personally reviewed this study, and has reviewed and/or edited this written report and agrees with it. ACC# ??Date Time ??Exam [id number] Nov 03, 2014 15:58:00 0159T Breast MRI CAD [id number] Nov 03, 2014 15:58:00 05161O MRI Breast w&w/o con Ananth EXAMINATION: ?? 1. MRI EXAMINATION OF THE BREASTS WITH AND WITHOUT CONTRAST 2. 3D POST PROCESSING ON A DEDICATED 3D WORKSTATION HISTORY: 54 year old woman with recently diagnosed right breast malignancy. Ultrasound-guided core biopsy of a 1.6 cm suspicious mass in the upper right breast demonstrated invasive ductal carcinoma. Breast MRI is requested to evaluate extent of malignancy. DATE OF LAST MENSTRUAL PERIOD: 09/07/2014 TECHNIQUE: MRI examination of the breasts per breast tumor protocol with and without gadolinium contrast. ??A dedicated breast imaging coil was used. The images were transferred to a breast CAD system for 3D post processing and contrast kinetics analysis. ?? Estimated GFR: >60 ml/min/1.73 square meters Creatinine: 0.7 mg/dL Contrast: Multihance, 12 ml COMPARISON: No prior MRI is available for comparison. Correlation is made with mammogram dated 10/27/2014. BREAST COMPOSITION: Heterogeneous fibroglandular tissue BACKGROUND PARENCHYMAL ENHANCEMENT: Moderate FINDINGS: There is a 1.7 x 1.6 x 1.3 cm, irregular mass at the 12 o'clock position of the right breast, anterior depth, 2.3 cm from the nipple, which demonstrates mixed kinetics and corresponds to the patient's biopsy proven malignancy. ??There is overlying skin tethering. ?? No suspicious mass or suspicious abnormal enhancement is seen elsewhere within either breast. No abnormally enlarged lymph nodes are identified in the visualized portions of either axilla. IMPRESSION: ?? 1) 1.7 cm enhancing mass in the upper right breast is compatible with the patient's known, biopsy-proven malignancy. Management will be directed by the referring physician, Dr. Kaba. 2) No suspicious abnormality is identified elsewhere within either breast. OVERALL FINAL ASSESSMENT: BI-RADS Category 6: Known biopsy-proven malignancy. Requested By: Dictated By: ?? JAMIE HUANG M.D. ??on Nov 06 2014 ??9:26A This document has been electronically signed by: ANDREAS ROGERS M.D. on Nov 06 2014 11:05A [id number] Procedure Note Provider, MD Ronda - 08/04/2016 ANDREAS ROGERS M.D. JAMIE HUANG M.D. FINAL REPORT The radiology attending physician has personally reviewed this study, and has reviewed and/or edited this written report and agrees with it. ACC# Date Time Exam [id number] Nov 03, 2014 15:58:00 0159T Breast MRI CAD [id number] Nov 03, 2014 15:58:00 38922N MRI Breast w&w/o con Ananth EXAMINATION: 1. MRI EXAMINATION OF THE BREASTS WITH AND WITHOUT CONTRAST 2. 3D POST PROCESSING ON A DEDICATED 3D WORKSTATION HISTORY: 54 year old woman with recently diagnosed right breast malignancy. Ultrasound-guided core biopsy of a 1.6 cm suspicious mass in the upper right breast demonstrated invasive ductal carcinoma. Breast MRI is requested to evaluate extent of malignancy. DATE OF LAST MENSTRUAL PERIOD: 09/07/2014 TECHNIQUE: MRI examination of the breasts per breast tumor protocol with and without gadolinium contrast. A dedicated breast imaging coil was used. The images were transferred to a breast CAD system for 3D post processing and contrast kinetics analysis. Estimated GFR: >60 ml/min/1.73 square meters Creatinine: 0.7 mg/dL Contrast: Multihance, 12 ml COMPARISON: No prior MRI is available for comparison. Correlation is made with mammogram dated 10/27/2014. BREAST COMPOSITION: Heterogeneous fibroglandular tissue BACKGROUND PARENCHYMAL ENHANCEMENT: Moderate FINDINGS: There is a 1.7 x 1.6 x 1.3 cm, irregular mass at the 12 o'clock position of the right breast, anterior depth, 2.3 cm from the nipple, which demonstrates mixed kinetics and corresponds to the patient's biopsy proven malignancy. There is overlying skin tethering. No suspicious mass or suspicious abnormal enhancement is seen elsewhere within either breast. No abnormally enlarged lymph nodes are identified in the visualized portions of either axilla. IMPRESSION: 1) 1.7 cm enhancing mass in the upper right breast is compatible with the patient's known, biopsy-proven malignancy. Management will be directed by the referring physician, Dr. Kaba. 2) No suspicious abnormality is identified elsewhere within eitherbreast. OVERALL FINAL ASSESSMENT: BI-RADS Category 6: Known biopsy-proven malignancy. Requested By: Dictated By: JAMIE HUANG M.D. on Nov 06 2014 9:26A This document has been electronically signed by: ANDREAS ROGERS M.D. on Nov 06 2014 11:05A [id number] us Historical Provider MD PERALES MRI PROCEDURES Final Result * MRI BREAST CAD (11/03/2014 3:58 PM CDT) Anatomical Region Laterality Modality Breast Magnetic Resonan ce 11/03/2014 3:58 PM CDT Narrative 11/06/2014 11:05 AM CDT ANDREAS ROGERS M.D. JAMIE HUANG M.D. FINAL REPORT The radiology attending physician has personally reviewed this study, and has reviewed and/or edited this written report and agrees with it. ACC# ??Date Time ??Exam [id number] Nov 03, 2014 15:58:00 0159T Breast MRI CAD [id number] Nov 03, 2014 15:58:00 [id number] MRI Breast w&w/o con Ananth EXAMINATION: ?? 1. MRI EXAMINATION OF THE BREASTS WITH AND WITHOUT CONTRAST 2. 3D POST PROCESSING ON A DEDICATED 3D WORKSTATION HISTORY: 54 year old woman with recently diagnosed right breast malignancy. Ultrasound-guided core biopsy of a 1.6 cm suspicious mass in the upper right breast demonstrated invasive ductal carcinoma. Breast MRI is requested to evaluate extent of malignancy. DATE OF LAST MENSTRUAL PERIOD: 09/07/2014 TECHNIQUE: MRI examination of the breasts per breast tumor protocol with and without gadolinium contrast. ??A dedicated breast imaging coil was used. The images were transferred to a breast CAD system for 3D post processing and contrast kinetics analysis. ?? Estimated GFR: >60 ml/min/1.73 square meters Creatinine: 0.7 mg/dL Contrast: Multihance, 12 ml COMPARISON: No prior MRI is available for comparison. Correlation is made with mammogram dated 10/27/2014. BREAST COMPOSITION: Heterogeneous fibroglandular tissue BACKGROUND PARENCHYMAL ENHANCEMENT: Moderate FINDINGS: There is a 1.7 x 1.6 x 1.3 cm, irregular mass at the 12 o'clock position of the right breast, anterior depth, 2.3 cm from the nipple, which demonstrates mixed kinetics and corresponds to the patient's biopsy proven malignancy. ??There is overlying skin tethering. ?? No suspicious mass or suspicious abnormal enhancement is seen elsewhere within either breast. No abnormally enlarged lymph nodes are identified in the visualized portions of either axilla. IMPRESSION: ?? 1) 1.7 cm enhancing mass in the upper right breast is compatible with the patient's known, biopsy-proven malignancy. Management will be directed by the referring physician, Dr. Kaba. 2) No suspicious abnormality is identified elsewhere within either breast. OVERALL FINAL ASSESSMENT: BI-RADS Category 6: Known biopsy-proven malignancy. Requested By: Dictated By: ?? JAMIE HUANG M.D. ??on Nov 06 2014 ??9:26A This document has been electronically signed by: ANDREAS ROGERS M.D. on Nov 06 2014 11:05A Procedure Note Provider, MD Ronda - 08/04/2016 ANDREAS ROGERS M.D. JAMIE HUANG M.D. FINAL REPORT The radiology attending physician has personally reviewed this study, and has reviewed and/or edited this written report and agrees with it. ACC# Date Time Exam [id number] Nov 03, 2014 15:58:00 0159T Breast MRI CAD [id number] Nov 03, 2014 15:58:00 07295C MRI Breast w&w/o con Ananth EXAMINATION: 1. MRI EXAMINATION OF THE BREASTS WITH AND WITHOUT CONTRAST 2. 3D POST PROCESSING ON A DEDICATED 3D WORKSTATION HISTORY: 54 year old woman with recently diagnosed right breast malignancy. Ultrasound-guided core biopsy of a 1.6 cm suspicious mass in the upper right breast demonstrated invasive ductal carcinoma. Breast MRI is requested to evaluate extent of malignancy. DATE OF LAST MENSTRUAL PERIOD: 09/07/2014 TECHNIQUE: MRI examination of the breasts per breast tumor protocol with and without gadolinium contrast. A dedicated breast imaging coil was used. The images were transferred to a breast CAD system for 3D post processing and contrast kinetics analysis. Estimated GFR: >60 ml/min/1.73 square meters Creatinine: 0.7 mg/dL Contrast: Multihance, 12 ml COMPARISON: No prior MRI is available for comparison. Correlation is made with mammogram dated 10/27/2014. BREAST COMPOSITION: Heterogeneous fibroglandular tissue BACKGROUND PARENCHYMAL ENHANCEMENT: Moderate FINDINGS: There is a 1.7 x 1.6 x 1.3 cm, irregular mass at the 12 o'clock position of the right breast, anterior depth, 2.3 cm from the nipple, which demonstrates mixed kinetics and corresponds to the patient's biopsy proven malignancy. There is overlying skin tethering. No suspicious mass or suspicious abnormal enhancement is seen elsewhere within either breast. No abnormally enlarged lymph nodes are identified in the visualized portions of either axilla. IMPRESSION: 1) 1.7 cm enhancing mass in the upper right breast is compatible with the patient's known, biopsy-proven malignancy. Management will be directed by the referring physician, Dr. Kaba. 2) No suspicious abnormality is identified elsewhere within eitherbreast. OVERALL FINAL ASSESSMENT: BI-RADS Category 6: Known biopsy-proven malignancy. Requested By: Dictated By: JAMIE HUANG M.D. on Nov 06 2014 9:26A This document has been electronically signed by: ANDREAS ROGERS M.D. on Nov 06 2014 11:05A Historical Provider IMG MRI PROCEDURES Final Result * Blood creatinine, point of care (11/03/2014 3:04 PM CDT) Creatinine, POC, bld 0.7 0.6 - 1.1 mg/dl HISTORICAL RESULTS Blood specimen (specimen) 11/03/2014 3:04 PM CDT Gasper Kaba MD LAB BLOOD ORDERABLES Mary l Result HISTORICAL RESULTS documented in this encounter Visit Diagnoses Diagnosis Malignant neoplasm of breast (female) (HCC) Malignant neoplasm of breast (female), unspecified site documented in this encounter
--- OUTSIDE RECORDS SUMMARY | 2024-04-24 05:58 | XMS_ITS | Encounter Summary ---
Author Organization [facility] Facility Care Team Providers Care Rim Roller Setter Name Role Phone Unavailable Primary Care Provider Unavailabl e Encounter Details Date Type Department Care Team (Late st Contact Info) Description 04/16/2015 - 04/16/2015 11:59 PM CIRCULATION SALES REPRESENTATIVE Hospital Encounter [facility] Harpal Soto MD [address] [address] Social History Tobacco Use Types Packs/Day Years Used Date Smoking Tobacco: Never Assessed Comments Unknown Sex and Gender Information Value Date Recorded Sex Assigned at Not on file Legal 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 Gender Identity Not on file Sexual Orientation Not on file documented as of this encounter Plan of Treatment Not on file documented as of this encounter Procedures Procedure Name Priority Date/Time Associated Diagnosis Comments NM CONSULTATION I-131 OUTPATIENT Routine 04/16/2015 11:15 AM CIRCULATION SALES REPRESENTATIVE documented in this encounter Results * NM CONSULTATION I-131 OUTPATIENT (04/16/2015 11:15 AM CIRCULATION SALES REPRESENTATIVE) Anatomical Region Laterality Modality N/A Radiographic Katty ging 04/16/2015 11:1 5 AM CIRCULATION SALES REPRESENTATIVE Narrative 04/16/2015 3:46 PM CIRCULATION SALES REPRESENTATIVE IDANIA GALVIN M.D. SLIME DONOHUE M.D. FINAL REPORT The radiology attending physician has personally reviewed this study, and has reviewed and/or edited this written report and agrees with it. ACC# ??Date Time ??Exam [id number] Apr 16, 2015 11:15:00 IVRFUout [id number] Outpt FU Simple ACC# ??Date Time ??Exam [id number] Apr 16, 2015 11:15:00 IVRFUout [id number] Outpt FU Simple EXAMINATION: ?INTERVENTIONAL RADIOLOGY FOLLOW-UP VISIT HISTORY: ??53-year-old female status post left chest port removal 04/10/2015. The patient returns with complaints of bleeding and visible sutures. ATTENDING PRESENCE: Dr. Galvin, the attending radiologist, was present from the beginning to the end of the procedure. PROCEDURE: Maximum sterile barriers including cap, mask, hand hygiene, sterile gloves, sterile gown, large sterile drape and 2% chlorhexidine for cutaneous antisepsis were used. The skin adjacent to the left chest wall incision site was sterilely prepped with Betadine, draped and infiltrated with 1% lidocaine. The existing skin glue was peeled off. Exposed sutures were clipped. Betadine was administered again. The skin was approximate with a running subcuticular stitch using 4-0 Monocryl over which Dermabond was applied. ?? IMPRESSION: Successful revision of a chest wall incision closure. ?? Requested By: Dictated By: ?? SLIME DONOHUE M.D. ??on Apr ??2015 ??1:41P This document has been electronically signed by: IDANIA GALVIN M.D. on Apr ?? 2015 ??3:46P Procedure Note Provider, MD Ronda - 08/04/2016 Kori HERNANDEZ M.D. FINAL REPORT The radiology attending physician has personally reviewed this study, and has reviewed and/or edited this written report and agrees with it. ACC# Date Time Exam [id number] Apr 16, 2015 11:15:00 IVRFUout [id number] Outpt FU Simple ACC# Date Time Exam [id number] Apr 16, 2015 11:15:00 IVRFUout [id number] Outpt FU Simple EXAMINATION: INTERVENTIONAL RADIOLOGY FOLLOW-UP VISIT HISTORY: 53-year-old female status post left chest port removal 04/10/2015. The patient returns with complaints of bleeding and visible sutures. ATTENDING PRESENCE: Dr. Galvin, the attending radiologist, was present from the beginning to the end of the procedure. PROCEDURE: Maximum sterile barriers including cap, mask, hand hygiene, sterile gloves, sterile gown, large sterile drape and 2% chlorhexidine for cutaneous antisepsis were used. The skin adjacent to the left chest wall incision site was sterilely prepped with Betadine, draped and infiltrated with 1% lidocaine. The existing skin glue was peeled off. Exposed sutures were clipped. Betadine was administered again. The skin was approximate with a running subcuticular stitch using 4-0 Monocryl over which Dermabond was applied. IMPRESSION: Successful revision of a chest wall incision closure. Requested By: Dictated By: SLIME DONOHUE M.D. on Apr 16 2015 1:41P This document has been electronically signed by: IADNIA GALVIN M.D. on Apr 16 2015 3:46P us Historical Provider MD PERALES NM PROCEDURES Final R esult documented in this encounter Visit Diagnoses Not on filedocumented in this encounter
--- OUTSIDE RECORDS SUMMARY | 2024-04-24 05:58 | XMS_ITS | Encounter Summary ---
Author Organization [facility] Facility Care Team Providers Care Gas Usage Meter Clerk Name Role Phone Unavailable Primary Care Provider Unavailabl e Encounter Details Date Type Department Care Team (Late st Contact Info) Description 12/26/2009 - 12/26/2009 11:59 PM CDT Hospital Encounter [facility] Valorie Saez MD [address] [address] Elevated blood-pressure reading without diagnosis of hypertension; Dizziness and giddiness Social History Tobacco Use Types Packs/Day Years Used Date Smoking Tobacco: Never Assessed Comments Unknown Sex and Gender Information Value Date Recorded Sex Assigned at Not on file 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
--- OUTSIDE RECORDS SUMMARY | 2024-04-24 05:58 | XMS_ITS | Encounter Summary ---
Author Organization [facility] Facility Care Team Providers Care De Icer Element Winder Name Role Phone Unavailable Primary Care Provider Unavailabl e Encounter Details Date Type Department Care Team (Late st Contact Info) Description 01/16/2015 - 01/16/2015 11:59 PM CDT Hospital Encounter [facility] Harpal Soto MD [address] [id number] Malignant neoplasm of central portion of right female breast (CMS/HCC) Social History Tobacco Use Types Packs/Day Years Used Date Smoking Tobacco: Never Assessed Comments Unknown Sex and Gender Information Value Date Recorded Sex Assigned at Not on file 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 Gender Identity Not on file Sexual Orientation Not on file documented as of this encounter Plan of Treatment Not on file documented as of this encounter Procedures Procedure Name Priority Date/Time Associated Diagnosis Comments VENOUS ACCESS Routine 01/16/2015 11:06 AM CDT US GUIDED VASCULAR ACCESS Routine 01/16/2015 11:06 AM CDT PORT PLACEMENT CHEST >5 YEARS Routine 01/16/2015 11:06 AM CDT documented in this encounter Results * Place Port Chest >5 Years (01/16/2015 11:06 AM CDT) Anatomical Region Laterality Modality Chest N/A X-Ray Angiograph y 01/16/2015 11:0 6 AM CDT Narrative 01/17/2015 9:24 AM CDT LYNNE MORENO M.D. HARPAL CHAPPELL PA-C HO FINAL REPORT The radiology attending physician has personally reviewed this study, and has reviewed and/or edited this written report and agrees with it. ACC# ??Date Time ??Exam [id number] Jan 16, 2015 11:06:00 32751 Insert Chest Port >5 y/o [id number] Jan 16, 2015 11:06:00 38383 Fluoro Juma Accs L [id number] Jan 16, 2015 11:06:00 18302 USguide Juma Acc L ACC# ??Date Time ??Exam [id number] Jan 16, 2015 11:06:00 90356 Insert Chest Port >5 y/o [id number] Jan 16, 2015 11:06:00 19912 Fluoro Juma Accs L [id number] Jan 16, 2015 11:06:00 93870 USguide Juma Acc L EXAMINATION: ?PORT PLACEMENT USING ULTRASOUND AND FLUOROSCOPIC GUIDANCE HISTORY: 54-year-old female with history of breast cancer presents for port placement for chemotherapy. ATTENDING PRESENCE: Dr. Moreno, the attending radiologist, was present from the beginning to the end of the procedure. SEDATION: Conscious sedation was used for the procedure. TECHNIQUE: The risks, benefits and alternatives were discussed and informed consent was obtained. ??Prior to beginning the procedure, Heaters Protocol was used to confirm the patient's identity and planned procedure. ?? Fluoroscopy time has been recorded in the electronic medical record. Prior to the procedure, the central veins were evaluated by ultrasound, an image recorded and placed in the patient's chart. Maximum sterile barriers including cap, mask, hand hygiene, sterile gloves, sterile gown, large sterile drape and 2% chlorhexidine for cutaneous antisepsis were used. Patient breast tissue and chest wall were taped down to provide a field that approximated the effect of gravity. The skin over the left internal jugular vein was sterilely prepped, draped and infiltrated with 1% lidocaine. ??The vein was accessed with a 21 gauge needle using realtime ultrasound guidance. ??A guidewire and catheter were then passed centrally using fluoroscopic guidance. ?? The intravascular length from the access site to the right atrium was then measured. ??After infiltrating the skin in the subclavicular region with 1% buffered lidocaine, a short transverse incision was made and the pocket for the ?? power injectable port reservoir was formed by blunt dissection. The catheter was tunneled to the IJ access site, cut to the appropriate length and inserted through a peel-away sheath. ??The catheter was flushed with 100U/ml heparin and the access needle was removed. The deep tissues were approximated using 4-0 Monocryl and the incision closed using Dermabond. ??The incision in the lower neck was closed in a similar fashion. ESTIMATED BLOOD LOSS: less than 30 milliliters DISCHARGED TO: Recovery and then to home CONDITION: stable FINDINGS: Ultrasound image shows a patent vein in the lower neck. ??The final fluoroscopic image demonstrates the catheter with its tip at the cavoatrial junction. ??No complications are seen. ?? IMPRESSION: Successful chest wall chemotherapy infusion port placement via the left internal jugular vein with catheter tip placed at the cavoatrial junction. Ready to use. PLAN: The port is ready for immediate use. Please note that a power injectable port was placed. When treatment is completed, removal can be scheduled by calling [facility] - [phone] [facility] - [phone] ?? Requested By: HARPAL ROJAS M.D. Dictated By: ?? MEGHAN FONTANA ??on Jan ??2014 12:16P This document has been electronically signed by: LYNNE MORENO M.D. on Jan ??2014 ??9:24A [id number] Procedure Note Provider, MD Ronda - 08/04/2016 Kori TAYLOR PA-C HO FINAL REPORT The radiology attending physician has personally reviewed this study, and has reviewed and/or edited this written report and agrees with it. ACC# Date Time Exam [id number] Jan 16, 2015 11:06:00 53994 Insert Chest Port >5 y/o [id number] Jan 16, 2015 11:06:00 57029 Fluoro Juma Accs L [id number] Jan 16, 2015 11:06:00 87052 USguide Juma Acc L ACC# Date Time Exam [id number] Jan 16, 2015 11:06:00 38476 Insert Chest Port >5 y/o [id number] Jan 16, 2015 11:06:00 77465 Fluoro Juma Accs L [id number] Jan 16, 2015 11:06:00 22767 USguide Juma Acc L EXAMINATION: PORT PLACEMENT USING ULTRASOUND AND FLUOROSCOPICGUIDANCE HISTORY: 54-year-old female with history of breast cancer presents for port placement for chemotherapy. ATTENDING PRESENCE: Dr. Moreno, the attending radiologist, was present from the beginning to the end of the procedure. SEDATION: Conscious sedation was used for the procedure. TECHNIQUE: The risks, benefits and alternatives were discussed and informed consent was obtained. Prior to beginning the procedure, Heaters Protocol was used to confirm the patient's identity and planned procedure. Fluoroscopy time has been recorded in the electronic medical record. Prior to the procedure, the central veins were evaluated by ultrasound, an image recorded and placed in the patient's chart. Maximum sterile barriers including cap, mask, hand hygiene, sterile gloves, sterile gown, large sterile drape and 2% chlorhexidine for cutaneous antisepsis were used. Patient breast tissue and chest wall were taped down to provide a field that approximated the effect of gravity. The skin over the left internal jugular vein was sterilely prepped, draped and infiltrated with 1% lidocaine. The vein was accessed with a 21 gauge needle using realtime ultrasound guidance. A guidewire and catheter were then passed centrally using fluoroscopic guidance. The intravascular length from the access site to the right atrium was then measured. After infiltrating the skin in the subclavicular region with 1% buffered lidocaine, a short transverse incision was made and the pocket for the power injectable port reservoir was formed by blunt dissection. The catheter was tunneled to the IJ access site, cut to the appropriate length and inserted through a peel-away sheath. The catheter was flushed with 100U/ml heparin and the access needle was removed. The deep tissues were approximated using 4-0 Monocryl and the incision closed using Dermabond. The incision in the lower neck was closed in a similar fashion. ESTIMATED BLOOD LOSS: less than 30 milliliters DISCHARGED TO: Recovery and then to home CONDITION: stable FINDINGS: Ultrasound image shows a patent vein in the lower neck. The final fluoroscopic image demonstrates the catheter with its tip at the cavoatrial junction. No complications are seen. IMPRESSION: Successful chest wall chemotherapy infusion port placement via the left internal jugular vein with catheter tip placed at the cavoatrial junction. Ready to use. PLAN: The port is ready for immediate use. Please note that a power injectable port was placed. When treatment is completed, removal can be scheduled by calling [facility] - [phone] [facility] - [phone] Requested By: HARPAL ROJAS M.D. Dictated By: MEGHAN FONTANA on Jan 16 2015 12:16P This document has been electronically signed by: LYNNE MORENO M.D. on Jan 17 2015 9:24A [id number] us Historical Provider MD PERALES IR PROCEDURES Final R esult * VENOUS ACCESS (01/16/2015 11:06 AM CDT) Anatomical Region Laterality Modality N/A Radiographic Katty ging 01/16/2015 11:0 6 AM CDT Narrative 01/17/2015 9:24 AM CDT Kori TAYLOR PA-C HO FINAL REPORT The radiology attending physician has personally reviewed this study, and has reviewed and/or edited this written report and agrees with it. ACC# ??Date Time ??Exam [id number] Jan 16, 2015 11:06:00 31853 Insert Chest Port >5 y/o [id number] Jan 16, 2015 11:06:00 61049 Fluoro Juma Accs L [id number] Jan 16, 2015 11:06:00 07528 USguide Juma Acc L ACC# ??Date Time ??Exam [id number] Jan 16, 2015 11:06:00 46034 Insert Chest Port >5 y/o [id number] Jan 16, 2015 11:06:00 24361 Fluoro Juma Accs L [id number] Jan 16, 2015 11:06:00 99019 USguide Juma Acc L EXAMINATION: ?PORT PLACEMENT USING ULTRASOUND AND FLUOROSCOPIC GUIDANCE HISTORY: 54-year-old female with history of breast cancer presents for port placement for chemotherapy. ATTENDING PRESENCE: Dr. Moreno, the attending radiologist, was present from the beginning to the end of the procedure. SEDATION: Conscious sedation was used for the procedure. TECHNIQUE: The risks, benefits and alternatives were discussed and informed consent was obtained. ??Prior to beginning the procedure, Heaters Protocol was used to confirm the patient's identity and planned procedure. ?? Fluoroscopy time has been recorded in the electronic medical record. Prior to the procedure, the central veins were evaluated by ultrasound, an image recorded and placed in the patient's chart. Maximum sterile barriers including cap, mask, hand hygiene, sterile gloves, sterile gown, large sterile drape and 2% chlorhexidine for cutaneous antisepsis were used. Patient breast tissue and chest wall were taped down to provide a field that approximated the effect of gravity. The skin over the left internal jugular vein was sterilely prepped, draped and infiltrated with 1% lidocaine. ??The vein was accessed with a 21 gauge needle using realtime ultrasound guidance. ??A guidewire and catheter were then passed centrally using fluoroscopic guidance. ?? The intravascular length from the access site to the right atrium was then measured. ??After infiltrating the skin in the subclavicular region with 1% buffered lidocaine, a short transverse incision was made and the pocket for the ?? power injectable port reservoir was formed by blunt dissection. The catheter was tunneled to the IJ access site, cut to the appropriate length and inserted through a peel-away sheath. ??The catheter was flushed with 100U/ml heparin and the access needle was removed. The deep tissues were approximated using 4-0 Monocryl and the incision closed using Dermabond. ??The incision in the lower neck was closed in a similar fashion. ESTIMATED BLOOD LOSS: less than 30 milliliters DISCHARGED TO: Recovery and then to home CONDITION: stable FINDINGS: Ultrasound image shows a patent vein in the lower neck. ??The final fluoroscopic image demonstrates the catheter with its tip at the cavoatrial junction. ??No complications are seen. ?? IMPRESSION: Successful chest wall chemotherapy infusion port placement via the left internal jugular vein with catheter tip placed at the cavoatrial junction. Ready to use. PLAN: The port is ready for immediate use. Please note that a power injectable port was placed. When treatment is completed, removal can be scheduled by calling [facility] - [phone] [facility] - [phone] ?? Requested By: HARPAL ROJAS M.D. Dictated By: ?? MEGHAN FONTANA ??on Jan ??2014 12:16P This document has been electronically signed by: LYNNE MORENO M.D. on Jan ??2014 ??9:24A [id number] Procedure Note Provider, MD Ronda - 08/04/2016 LYNNE MORENO M.D. MEGHAN FONTANA FINAL REPORT The radiology attending physician has personally reviewed this study, and has reviewed and/or edited this written report and agrees with it. ACC# Date Time Exam [id number] Jan 16, 2015 11:06:00 74020 Insert Chest Port >5 y/o [id number] Jan 16, 2015 11:06:00 03289 Fluoro Juma Accs L [id number] Jan 16, 2015 11:06:00 05832 USguide Juma Acc L ACC# Date Time Exam [id number] Jan 16, 2015 11:06:00 19718 Insert Chest Port >5 y/o [id number] Jan 16, 2015 11:06:00 01481 Fluoro Juma Accs L [id number] Jan 16, 2015 11:06:00 11442 USguide Juma Acc L EXAMINATION: PORT PLACEMENT USING ULTRASOUND AND FLUOROSCOPICGUIDANCE HISTORY: 54-year-old female with history of breast cancer presents for port placement for chemotherapy. ATTENDING PRESENCE: Dr. Moreno, the attending radiologist, was present from the beginning to the end of the procedure. SEDATION: Conscious sedation was used for the procedure. TECHNIQUE: The risks, benefits and alternatives were discussed and informed consent was obtained. Prior to beginning the procedure, Heaters Protocol was used to confirm the patient's identity and planned procedure. Fluoroscopy time has been recorded in the electronic medical record. Prior to the procedure, the central veins were evaluated by ultrasound, an image recorded and placed in the patient's chart. Maximum sterile barriers including cap, mask, hand hygiene, sterile gloves, sterile gown, large sterile drape and 2% chlorhexidine for cutaneous antisepsis were used. Patient breast tissue and chest wall were taped down to provide a field that approximated the effect of gravity. The skin over the left internal jugular vein was sterilely prepped, draped and infiltrated with 1% lidocaine. The vein was accessed with a 21 gauge needle using realtime ultrasound guidance. A guidewire and catheter were then passed centrally using fluoroscopic guidance. The intravascular length from the access site to the right atrium was then measured. After infiltrating the skin in the subclavicular region with 1% buffered lidocaine, a short transverse incision was made and the pocket for the power injectable port reservoir was formed by blunt dissection. The catheter was tunneled to the IJ access site, cut to the appropriate length and inserted through a peel-away sheath. The catheter was flushed with 100U/ml heparin and the access needle was removed. The deep tissues were approximated using 4-0 Monocryl and the incision closed using Dermabond. The incision in the lower neck was closed in a similar fashion. ESTIMATED BLOOD LOSS: less than 30 milliliters DISCHARGED TO: Recovery and then to home CONDITION: stable FINDINGS: Ultrasound image shows a patent vein in the lower neck. The final fluoroscopic image demonstrates the catheter with its tip at the cavoatrial junction. No complications are seen. IMPRESSION: Successful chest wall chemotherapy infusion port placement via the left internal jugular vein with catheter tip placed at the cavoatrial junction. Ready to use. PLAN: The port is ready for immediate use. Please note that a power injectable port was placed. When treatment is completed, removal can be scheduled by calling [facility] - [phone] [facility] - [phone] Requested By: HARPAL ROJAS M.D. Dictated By: MEGHAN FONTANA on Jan 16 2015 12:16P This document has been electronically signed by: LYNNE MORENO M.D. on Jan 17 2015 9:24A [id number] us Historical Provider MD PERALES XR PROCEDURES Final R esult * US Guided Vascular Access (01/16/2015 11:06 AM CDT) Anatomical Region Laterality Modality N/A Ultrasound 01/16/2015 11:0 6 AM CDT Narrative 01/17/2015 9:24 AM CDT Kori TAYLOR PA-C HO FINAL REPORT The radiology attending physician has personally reviewed this study, and has reviewed and/or edited this written report and agrees with it. ACC# ??Date Time ??Exam [id number] Jan 16, 2015 11:06:00 44251 Insert Chest Port >5 y/o [id number] Jan 16, 2015 11:06:00 36377 Fluoro Juma Accs L [id number] Jan 16, 2015 11:06:00 81655 USguide Juma Acc L ACC# ??Date Time ??Exam [id number] Jan 16, 2015 11:06:00 65355 Insert Chest Port >5 y/o [id number] Jan 16, 2015 11:06:00 04928 Fluoro Juma Accs L [id number] Jan 16, 2015 11:06:00 34742 USguide Juma Acc L EXAMINATION: ?PORT PLACEMENT USING ULTRASOUND AND FLUOROSCOPIC GUIDANCE HISTORY: 54-year-old female with history of breast cancer presents for port placement for chemotherapy. ATTENDING PRESENCE: Dr. Moreno, the attending radiologist, was present from the beginning to the end of the procedure. SEDATION: Conscious sedation was used for the procedure. TECHNIQUE: The risks, benefits and alternatives were discussed and informed consent was obtained. ??Prior to beginning the procedure, Heaters Protocol was used to confirm the patient's identity and planned procedure. ?? Fluoroscopy time has been recorded in the electronic medical record. Prior to the procedure, the central veins were evaluated by ultrasound, an image recorded and placed in the patient's chart. Maximum sterile barriers including cap, mask, hand hygiene, sterile gloves, sterile gown, large sterile drape and 2% chlorhexidine for cutaneous antisepsis were used. Patient breast tissue and chest wall were taped down to provide a field that approximated the effect of gravity. The skin over the left internal jugular vein was sterilely prepped, draped and infiltrated with 1% lidocaine. ??The vein was accessed with a 21 gauge needle using realtime ultrasound guidance. ??A guidewire and catheter were then passed centrally using fluoroscopic guidance. ?? The intravascular length from the access site to the right atrium was then measured. ??After infiltrating the skin in the subclavicular region with 1% buffered lidocaine, a short transverse incision was made and the pocket for the ?? power injectable port reservoir was formed by blunt dissection. The catheter was tunneled to the IJ access site, cut to the appropriate length and inserted through a peel-away sheath. ??The catheter was flushed with 100U/ml heparin and the access needle was removed. The deep tissues were approximated using 4-0 Monocryl and the incision closed using Dermabond. ??The incision in the lower neck was closed in a similar fashion. ESTIMATED BLOOD LOSS: less than 30 milliliters DISCHARGED TO: Recovery and then to home CONDITION: stable FINDINGS: Ultrasound image shows a patent vein in the lower neck. ??The final fluoroscopic image demonstrates the catheter with its tip at the cavoatrial junction. ??No complications are seen. ?? IMPRESSION: Successful chest wall chemotherapy infusion port placement via the left internal jugular vein with catheter tip placed at the cavoatrial junction. Ready to use. PLAN: The port is ready for immediate use. Please note that a power injectable port was placed. When treatment is completed, removal can be scheduled by calling [facility] - [phone] [facility] - [phone] ?? Requested By: HARPAL ROJAS M.D. Dictated By: ?? MEGHAN FONTANA ??on Jan ??6 2014 12:16P This document has been electronically signed by: LYNNE MORENO M.D. on Jan ??2014 ??9:24A [id number] Procedure Note Provider, MD Ronda - 08/04/2016 Kori TAYLOR PA-C HO FINAL REPORT The radiology attending physician has personally reviewed this study, and has reviewed and/or edited this written report and agrees with it. ACC# Date Time Exam [id number] Jan 16, 2015 11:06:00 34425 Insert Chest Port >5 y/o [id number] Jan 16, 2015 11:06:00 95430 Fluoro Juma Accs L [id number] Jan 16, 2015 11:06:00 28831 USguide Juma Acc L ACC# Date Time Exam [id number] Jan 16, 2015 11:06:00 05647 Insert Chest Port >5 y/o [id number] Jan 16, 2015 11:06:00 84525 Fluoro Juma Accs L [id number] Jan 16, 2015 11:06:00 57328 USguide Juma Acc L EXAMINATION: PORT PLACEMENT USING ULTRASOUND AND FLUOROSCOPICGUIDANCE HISTORY: 54-year-old female with history of breast cancer presents for port placement for chemotherapy. ATTENDING PRESENCE: Dr. Moreno, the attending radiologist, was present from the beginning to the end of the procedure. SEDATION: Conscious sedation was used for the procedure. TECHNIQUE: The risks, benefits and alternatives were discussed and informed consent was obtained. Prior to beginning the procedure, Heaters Protocol was used to confirm the patient's identity and planned procedure. Fluoroscopy time has been recorded in the electronic medical record. Prior to the procedure, the central veins were evaluated by ultrasound, an image recorded and placed in the patient's chart. Maximum sterile barriers including cap, mask, hand hygiene, sterile gloves, sterile gown, large sterile drape and 2% chlorhexidine for cutaneous antisepsis were used. Patient breast tissue and chest wall were taped down to provide a field that approximated the effect of gravity. The skin over the left internal jugular vein was sterilely prepped, draped and infiltrated with 1% lidocaine. The vein was accessed with a 21 gauge needle using realtime ultrasound guidance. A guidewire and catheter were then passed centrally using fluoroscopic guidance. The intravascular length from the access site to the right atrium was then measured. After infiltrating the skin in the subclavicular region with 1% buffered lidocaine, a short transverse incision was made and the pocket for the power injectable port reservoir was formed by blunt dissection. The catheter was tunneled to the IJ access site, cut to the appropriate length and inserted through a peel-away sheath. The catheter was flushed with 100U/ml heparin and the access needle was removed. The deep tissues were approximated using 4-0 Monocryl and the incision closed using Dermabond. The incision in the lower neck was closed in a similar fashion. ESTIMATED BLOOD LOSS: less than 30 milliliters DISCHARGED TO: Recovery and then to home CONDITION: stable FINDINGS: Ultrasound image shows a patent vein in the lower neck. The final fluoroscopic image demonstrates the catheter with its tip at the cavoatrial junction. No complications are seen. IMPRESSION: Successful chest wall chemotherapy infusion port placement via the left internal jugular vein with catheter tip placed at the cavoatrial junction. Ready to use. PLAN: The port is ready for immediate use. Please note that a power injectable port was placed. When treatment is completed, removal can be scheduled by calling [facility] - [phone] [facility] - [phone] Requested By: HARPAL ROJAS M.D. Dictated By: MEGHAN FONTANA on Jan 16 2015 12:16P This document has been electronically signed by: LYNNE MORENO M.D. on Jan 17 2015 9:24A [id number] us Historical Provider MD PERALES US PROCEDURES Final R esult documented in this encounter Visit Diagnoses Diagnosis Malignant neoplasm of central portion of right female breast (HCC) documented in this encounter
--- OUTSIDE RECORDS SUMMARY | 2024-04-24 05:58 | XMS_ITS | Encounter Summary ---
Author Organization 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 Social History Tobacco Use Types Packs/Day Years Used Date Smoking Tobacco: Never Assessed Comments Unknown Sex and Gender Information Value Date Recorded Sex Assigned at Not on file 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 Gender Identity Not on file Sexual [...] Name Priority Date/Time Associated Diagnosis Comments BLOOD CELL COUNT Routine 01/31/2016 8:4 3 AM CDT PLASMA COMPREHENSIVE METABOLIC PANEL Routine 01/31/2016 8:36 AM CDT SERUM CA 15-3 AG Routine 01/31/2016 8:30 AM CDT DISCHARGE LABORATORY CUMULATIVE REPORT 01/30/2016 documented in this encounter Results * (ABNORMAL) Blood cell count [CBC] panel, 7 CAM (01/31/2016 8:43 AM CDT) WBC 4.3 3.8 - 9.8 K/cumm CDR HISTORICAL RESULTS RBC 3.88(L) 3.90 - 5.00 M/cumm CDR HISTORICAL RESULTS Hgb 12.4 12.1 - 15.1 g/dl CDR HISTORICAL RESULTS Hct 38.2 36.1 - 44.3 % CDR HISTORICAL RESULTS MCV 98.6(H) 80.0 - 97.6 fl CDR HISTORICAL RESULTS MCH 31.9 26.7 - 33.7 pg CDR HISTORICAL RESULTS MCHC 32.3(L) 32.7 - 35.5 g/dl CDR HISTORICAL RESULTS Rdw 13.9 11.8 - 14.6 % CDR HISTORICAL RESULTS Platelets 182 140 - 440 K/cumm CDR HISTORICAL RESULTS MPV 8.7 6.8 - 10.4 fl CDR HISTORICAL RESULTS Neutrophils 61.3 38.7 - 74.5 % CDR HISTORICAL RESULTS Lymphocytes 21.0 20.0 - 54.3 % CDR HISTORICAL RESULTS Monos 12.9 4.3 - 13.5 % CDR HISTORICAL RESULTS Eosinophils 4.0 0.0 - 6.0 % CDR HISTORICAL RESULTS Basophils 0.8 0.0 - 3.0 % CDR HISTORICAL RESULTS Neutrophils, abs 2.6 1.8 - 6.6 K/cumm CDR HISTORICAL RESULTS Lymphocytes, abs 0.9(L) 1.2 - 3.3 K/cumm CDR HISTORICAL RESULTS Monocytes, absolute 0.6 0.2 - 1.2 K/cumm CDR HISTORICAL RESULTS Eosinophils, abs 0.2 0.0 - 0.5 K/cumm CDR HISTORICAL RESULTS Basophils, abs 0.0 0.0 - 0.2 K/cumm CDR HISTORICAL RESULTS Blood specimen (specimen) 01/31/2016 8:43 AM CDT us Harpal Calix MD LAB BLOOD ORDERABLES Mary rory Result CDR HISTORICAL RESULTS * Plasma comprehensive metabolic panel (01/31/2016 8:36 AM CDT) Sodium 140 135 - 145 mmol/L CDR HISTORICAL RESULTS Calcium 9.6 8.5 - 10.3 mg/dl CDR HISTORICAL RESULTS K, pl 4.3 3.3 - 4.9 mmol/L CDR HISTORICAL RESULTS Protein, pl 6.7 6.5 - 8.5 g/dl CDR HISTORICAL RESULTS Chloride 105 97 - 110 mmol/L CDR HISTORICAL RESULTS Alb 4.4 3.5 - 5.0 g/dl CDR HISTORICAL RESULTS CO2 29 22 - 32 mmol/L CDR HISTORICAL RESULTS Bilirubin 0.4 0.1 - 1.2 mg/dl CDR HISTORICAL RESULTS A. gap 6 2 - 15 mmol/L CDR HISTORICAL RESULTS Alk phos 42 40 - 130 Units/L CDR HISTORICAL RESULTS Glucose 89 70 - 199 mg/dl CDR HISTORICAL RESULTS AST 25 10 - 45 Units/L CDR HISTORICAL RESULTS BUN 17 8 - 25 mg/dl CDR HISTORICAL RESULTS ALT 29 7 - 45 Units/L CDR HISTORICAL RESULTS Creatinine 0.69 0.60 - 1.10 mg/dl CDR HISTORICAL RESULTS Plasma 01/31/2016 8:36 AM CDT Harpla Calix MD LAB BLOOD ORDERABLES Mary l Result CDR HISTORICAL RESULTS * Serum CA 15-3 ag (01/31/2016 8:30 AM CDT) CA 15-3 ag 9.0 1.0 - 30.0 Units/ml CDR HISTORICAL RESULTS Serum 01/31/2016 8:30 AM CDT Harpal Calix MD LAB BLOOD ORDERABLES Mary l Result CDR HISTORICAL RESULTS * DISCHARGE LABORATORY CUMULATIVE REPORT (01/30/2016) Narrative 01/30/2016 Ordered by an unspecified provider. Historical Provider LAB BLOOD ORDERABLES Mary l Result documented in this encounter Visit Diagnoses Diagnosis Other extermination inspector (current) drug therapy documented in this encounter
== END 2024-04-17 16:24 | disposition home or self-care (01) ==
PROVIDERS: Emergency Provider Emergency Medicine; PCP Physician Assistant
DX: R51.9 Headache, unspecified (principal); I10 Essential (primary) hypertension; Z85.3 Personal history of malignant neoplasm of breast; M06.9 Rheumatoid arthritis, unspecified
CPT/HCPCS: 36415; 70496; 70498; 80053; 84484; 85025; 85610; 85730; 99284; Q9967